=== PATIENT | male | born 1970 | race Caucasian/White ===

== ENCOUNTER 2016-11-15 11:17 | Inpatient (IN) | payer MEDICAID ==
[2016-11-15] MEDS ORDERED: MORPHINE IV ONE (12:44)
[2016-11-15] MEDS ORDERED: ZOFRAN IV ONE (12:44)
[2016-11-15] MEDS ORDERED: NITRO-BID 2% TP ONE (12:55)
[2016-11-15] MEDS ORDERED: LASIX IV ONE (12:55)
--- NOTE | 2016-11-15 12:58 | Emergency Department Report ---
HPI - General Chief Complaint: Dyspnea/Respdistress Time Seen by Provider: 11/15/16 12:35 - HPI HPI: Room 23 The patient is a 45-year-old male presenting with a chief complaint of chest pain and shortness of breath. The patient states yesterday he began or shortness of breath: CPAP. The patient states today when he awakened and felt as though "an elephant was sitting" on his chest. Patient describes pain as a tightness and pressure. Patient admitted to shortness of breath and some diaphoresis. Patient denies nausea or vomiting. Patient states she has had a cough as been productive of yellow sputum. Patient states he's been compliant with his torsemide. The patient states she had a cardiac catheterization approximately one year ago but did not reveal any blockages Location: Chest, lungs Duration: [see above] Quality: Tightness, pressure Severity: 04/30 Modifying factors: [see above] Context: [see above] Mode of transportation: [not driving] ED Past Medical Hx - Past Medical History Previous Medical History?: Yes Hx Hypertension: Yes Hx Congestive Heart Failure: Yes Hx Diabetes: Yes Hx Renal Disease: Yes (insufficiency) Hx Asthma: Yes Hx COPD: Yes Additional medical history: copd; sleep apnea - Surgical History Past Surgical History?: Yes Hx Pacemaker: Yes Hx Internal Defibrillator: Yes Hx Cholecystectomy: Yes Additional Surgical History: defibulator - Family History Family history: no significant - Social History Smoking Status: Former Smoker Substance Use Type: None - Medications Home Medications: Home Medications Medication Instructions Recorded Confirmed Last Taken Type Aspirin [Aspirin TAB] 325 mg PO QDAY 05/19/15 10/02/16 1 Day Ago History Ferrous Sulfate [Feosol 325 MG tab] 325 mg PO BID 05/19/15 10/02/16 1 Day Ago History Amiodarone 200 mg PO DAILY 06/23/16 10/02/16 1 Day Ago History Clindamycin [Clindamycin CAP] 300 mg PO BID #20 capsule 08/03/16 Unknown Rx Allopurinol [Zyloprim] 100 mg PO QDAY 08/31/16 10/02/16 1 Day Ago History Carvedilol [Coreg] 25 mg PO BID 08/31/16 10/02/16 1 Day Ago History ISOSORBIDE MONOnitrate [Imdur ER] 30 mg PO DAILY 08/31/16 10/02/16 1 Day Ago History Lisinopril [Zestril] 20 mg PO BID 08/31/16 10/02/16 1 Day Ago History Magnesium Oxide 400 mg PO DAILY 08/31/16 10/02/16 1 Day Ago History Potassium Chloride [Klor-Con] 20 meq PO DAILY 08/31/16 10/02/16 1 Day Ago History Spironolactone [Aldactone] 25 mg PO BID 08/31/16 10/02/16 1 Day Ago History Torsemide [Demadex] 100 mg PO QDAY 08/31/16 10/02/16 1 Day Ago History glipiZIDE [Glucotrol] 10 mg PO QDAY 08/31/16 10/02/16 1 Day Ago History Potassium Chloride [K-Dur] 20 meq PO BID #10 tab 10/03/16 Unknown Rx Albuterol Sulfate [Ventolin HFA] 2 puff IH Q4H PRN #1 hfa.aer.ad 10/21/16 Unknown Rx Benzonatate [Tessalon Perles] 100 mg PO Q8HR PRN #30 capsule 10/21/16 Unknown Rx HYDROcodone/APAP 5-325 [[place] 1 each PO Q6HR PRN #20 tablet 10/21/16 Unknown Rx 5-325 mg TAB] Levofloxacin [Levaquin] 750 mg PO QDAY #5 tablet 10/21/16 Unknown Rx Prednisone [predniSONE 10 mg 10 mg PO .TAPER #1 tab.ds.pk 10/21/16 Unknown Rx (6-Day Pack, 21 Tabs)] ED Review of Systems ROS: Stated complaint: RTI/CHEST TIGHTNESS Other details as noted in HPI Comment: All other systems reviewed and negative Constitutional: diaphoresis Eyes: denies: eye pain, eye discharge, vision change ENT: denies: ear pain, throat pain Respiratory: shortness of breath Cardiovascular: chest pain Endocrine: no symptoms reported Gastrointestinal: denies: abdominal pain, nausea, diarrhea Genitourinary: denies: urgency, dysuria Musculoskeletal: denies: back pain, joint swelling, arthralgia Skin: denies: rash, lesions Neurological: denies: headache, weakness, paresthesias Psychiatric: denies: anxiety, depression Hematological/Lymphatic: denies: easy bleeding, easy bruising Physical Exam - Physical Exam Vital Signs: Vital Signs 11/15/16 12:00 Temperature 98.5 F Pulse Rate 71 Blood Pressure 104/61 O2 Sat by Pulse 98 Oximetry Physical Exam: GENERAL: The patient is well-developed well-nourished male lying on stretcher not appearing to be in acute distress. [] HEENT: Normocephalic. Atraumatic. Extraocular motions are intact. Patient has moist mucous membranes. NECK: Supple. Trachea midline CHEST/LUNGS: Clear to auscultation. No wheezing auscultated. There is mild respiratory distress noted. HEART/CARDIOVASCULAR: Regular. There is no tachycardia. There is no gallop rub or murmur. ABDOMEN: Abdomen is soft, nontender. Patient has normal bowel sounds. There is no abdominal distention. SKIN: There is no rash. There is 1+ bilateral lower extremity pitting edema. There is no diaphoresis. NEURO: The patient is awake, alert, and oriented. The patient is cooperative. The patient has normal speech MUSCULOSKELETAL: There is no evidence of acute injury. ED Course Vital Signs 11/15/16 12:00 Temperature 98.5 F Pulse Rate 71 Blood Pressure 104/61 O2 Sat by Pulse 98 Oximetry - Consultations Consultation #1: 11/15/16 12:57 Case discussed with [facility] ([facility])- will call back ED Medical Decision Making - Lab Data Result diagrams: 11/15/16 13:03 11/15/16 13:03 Laboratory Tests 11/15/16 11/15/16 13:03 13:03 WBC 10.0 RBC 4.13 Hgb 12.5 Hct 37.8 MCV 91 MCH 30 MCHC 33 RDW 15.9 H Plt Count 208 Lymph % (Auto) 17.2 [place] % (Auto) 9.7 H Eos % (Auto) 1.2 Baso % (Auto) 0.7 Lymph # 1.7 [place] # 1.0 H Eos # 0.1 Baso # 0.1 Seg Neutrophils % 71.2 H Seg Neutrophils # 7.1 Sodium 138 Potassium 3.3 L Chloride 97.7 L Carbon Dioxide 26 Anion Gap 18 BUN 13 Creatinine 1.4 Estimated GFR 54 BUN/Creatinine Ratio 9.28 Glucose 109 H Calcium 9.0 Troponin T < 0.010 NT-Pro-B Natriuret Pep 2534 H - EKG Data -: EKG Interpreted by Me Rate: normal - EKG Data When compared to previous EKG there are: previous EKG unavailable Interpretation: other (paced rhythm) - Radiology Data Radiology results: image reviewed (chest x-ray) interpreted by me: Chest [id number]. No focal infiltrates, no pneumothorax - Medical Decision Making Review the patient's record reveals he had a cardiac catheterization performed by Dr. Cross 10/19/2015. EKG revealed focal stenosis of the right coronary artery that resolved with intracoronary nitroglycerin consistent with focal coronary spasm. Otherwise, angiographically normal coronary arteries. Moderate to severe elevation of the left heart filling pressures. - Differential Diagnosis CHF exacerbation, ACS, nonischemic cardiomyopathy Critical care attestation.: If time is entered above; I have spent that time in minutes in the direct care of this critically ill patient, excluding procedure time. ED Disposition Clinical Impression: Acute chest pain, CHF exacerbation, Shortness of breath Disposition: OP ADMITTED IP TO THIS HOSP Is pt being admited?: Yes Does the pt Need Aspirin: Yes Condition: Fair Instructions: Chest Pain (ED) Referrals: STONE MOSES MD [Primary Care Provider] - 3-5 Days Time of Disposition: 14:02 (hospitalist paged)
--- NOTE | 2016-11-15 13:12 | XRay Report ---
AP chest History: Difficulty in breathing Findings: Heart size and pulmonary vascularity are borderline. The lungs are clear. 3-lead pacemaker devices unchanged since 10/20/16. No acute process is noted. Impression: Borderline heart size and pulmonary vascularity.
[2016-11-15 13:22] LABS: Basophils % (Auto) 0.7 % (0.0-1.8); Eosinophils % (Auto) 1.2 % (0.0-4.3); Hematocrit 37.8 % (35.5-45.6); Hemoglobin 12.5 gm/dl (11.8-15.2); Mean Corpuscular HGB Conc 33 % (32-34); Mean Corpuscular Hemoglobin 30 pg (28-32); Mean Corpuscular Volume 91 fl (84-94); Platelet Count 208 K/mm3 (140-440); Red Blood Count 4.13 M/mm3 (3.65-5.03); Red Cell Distribution Width 15.9 % (13.2-15.2)
[2016-11-15 13:42] LABS: Anion Gap 18 mmol/L; BUN/Creatinine Ratio 9.28; Blood Urea Nitrogen 13 mg/dL (9-20); Carbon Dioxide 26 mmol/L (22-30); Chloride 97.7 mmol/L (98-107); Glucose 109 mg/dL (75-100); Potassium 3.3 mmol/L (3.6-5.0); Sodium 138 mmol/L (137-145)
[2016-11-15] MEDS ORDERED: K-DUR PO ONE (13:50)
[2016-11-15] MEDS ORDERED: ASPIRIN PO ONE (14:03)
--- NOTE | 2016-11-15 14:42 | Admit Criteria Form ---
Admission Criteria Documentation: HEART FAILURE Clinical Indications for Admission to Inpatient Care (Place 'X' for any and all applicable criteria): Admission is indicated by ANY ONE of the following(1)(2)(3)(4): [X]I. Severe electrolyte abnormalities requiring inpatient care(9) [ ]II. Hemodynamic instability [ ]III. Anasarca [X]IV. Acute cardiac ischemia causing or associated with failure (Also use Angina or Myocardial Infarction as appropriate) [ ]V. Cardiac arrhythmias of immediate concern [ ]. Precipitating cause for acute decompensation (eg, pneumonia, pulmonary embolism) requires inpatient care [ ]VII. Pulmonary edema that is very severe (eg, mechanical ventilation needed, imminent or likely, need for 100% oxygen to keep oxygen saturation above 90%) [X ]VIII. Inpatient admission required rather than observation care (Also use Heart Failure: Observation Care as appropriate) because of ANY ONE of the following: [ ]a) Pulmonary edema that is severe or worsening as indicated by ALL of the following: [ ]i) New need for oxygen therapy to keep oxygen saturation above 90% (or increased FiO2 need from baseline) [ ]ii) Has not improved sufficiently with emergency department or observation care IV diuretics or other heart failure treatments[C] [ ]b) Cognitive impairment that is severe or persistent [ ]c) Increased creatinine (new on laboratory test) with reduction of more than 50% in estimated glomerular filtration rate from baseline. [ ]d) Acute renal insufficiency (progressively (ongoing) rising creatinine (known from past laboratory test) with reduction of more than 25% in estimated glomerular filtration rate from baseline) [ ]e) Acute peripheral ischemia (eg, pulseless, cool, mottled, or cyanotic extremity) [ ]f) Acute renal failure [ ]g) Supplemental O2 or respiratory treatment for >24 hr that are performable only in acute inpatient setting [ ]h) Pulmonary artery catheter monitoring [X]i) Other condition, treatment or monitoring requiring inpatient admission [ ]IX. Contraindications and/or Inappropriate clinical situations for Observational Care in patients with Heart Failure, when ANY ONE of the following is required: [ ]a) Patient with High risk of cardiac embolism (e.g, patients with previous cardiac embolism, LVEF < 40%, age >75 and patients with prosthetic valve) 18 [ ]b) Patient with Moderate risk including DM patient, CAD and patient aged 65-75 [ ]c) Patient with any change in cardiac biomarker especially troponin should be managed as high risk in an inpatient setting 19 [ ]d) Physician judgement irrespective of ECG and other diagnostic findings 20 [ ]e) Patients with hyponatremia have high risk for mortality and require more extensive care and length of stay 21 [ ]f) Need for large volume diuresis 21 [ ]g) Presence of renal insufficiency or hypotension limiting speed of diuresis 21 [ ]h) Acute cardiac Ischemia in the elderly 21 [ ]i) Patients with a 30 day risk of mortality based on a multidimensional prognostic index (MPI) [J,]21 [ ]X. General contraindications and/or Inappropriate clinical situations for Observational Care in patients with Heart Failure, when ANY ONE of the following is required: [ ]a) Prediction of prolongation of LOS based on ANY ONE of the following may be considered as a contraindication for observational care 2, 3, 4, 5, 6, 7, 8 , 9, 10, 11 [ ]i) Age > 65 yrs. [ ]ii) Patient arriving by ambulance [ ]iii) Patient with high acuity [ ]iv) Patient requiring vital sign monitoring [ ]v) Patient on IV medication [ ]b) Systolic blood pressures 180mmHg 3,12 [ ]c) Patient with altered mental status including delirium and other alteration of consciousness, (3) [ ]d) Patient whose discharge disposition will be to a fdc home or rehabilitation home should not be managed in Emergency Department Observation Unit. CMS rule requires 3 days hospital stay before such placement.3,13 [ ]e) Patient with failure to thrive due to broad array of etiologies 3,16,17 [ ]f) Inability to ambulate 3,14 Extended stay beyond goal length of stay may be needed for(1)(3)(21)(25): [ ]a) Cardiac ischemia, confirmed or suspected as precipitant [ ]b) Cardiogenic shock or refractory pulmonary edema [ ]c) Acute kidney injury or renal failure [ ]d) Respiratory failure (eg, need for noninvasive or invasive mechanical ventilation) (23) [ ]e) Concomitant pneumonia or significant electrolyte abnormality (eg, severe hyponatremia) [ ]f) Newly diagnosed (new onset) atrial fibrillation [ ]g) Stage IV chronic kidney disease (estimated glomerular filtration rate of less than 30 mL/min/1.73m2 (0.50 mL/sec/1.73m2), and not previously on chronic dialysis The original [facility] content created by [facility] [facility] has been revised. The portions of the content which have been revised are identified through the use of italic text or in bold, and [facility] has neither reviewed nor approved the modified material. All other unmodified content is copyright [facility]. Please see references footnoted in the original [facility] edition 2016 Admission Criteria Met: Yes
[2016-11-15] MEDS ORDERED: SODIUM CHLORIDE FLUSH SYRINGE 10 ML IV PRN (17:23)
[2016-11-15] MEDS ORDERED: AMIODARONE 200 MG PO SCH (17:30)
[2016-11-15] MEDS: K-DUR PO SCH (20:40)
[2016-11-15] MEDS: CORDARONE PO SCH (20:40)
[2016-11-15 21:23] LABS: Creatine Kinase MB 2.1 ng/mL (0.0-4.0)
[2016-11-15 21:28] LABS: Creatine Kinase 187 units/L (55-170)
[2016-11-15] MEDS: ALDACTONE PO SCH (22:30)
[2016-11-15] MEDS: COREG PO SCH (22:30)
[2016-11-15] MEDS: ZYLOPRIM PO SCH (22:30)
[2016-11-15] MEDS: FEOSOL PO SCH (22:30)
[2016-11-15] MEDS: ZESTRIL PO SCH (22:31)
[2016-11-15 23:51] LABS: Creatine Kinase 180 units/L (55-170); Creatine Kinase MB 2.1 ng/mL (0.0-4.0)
[2016-11-16] MEDS ORDERED: GLUCOTROL PO SCH (08:00)
--- NOTE | 2016-11-16 08:42 | Event Note ---
Date: 11/15/16 See In reports
[2016-11-16] MEDS ORDERED: K-DUR PO ONE ×2 (09:00→09:30)
--- NOTE | 2016-11-16 09:44 | History and Physical Report ---
CHIEF COMPLAINT: Increasing shortness of breath of 2 days' duration. HISTORY OF PRESENT ILLNESS: A 45-year-old male comes in for increasing shortness of breath and chest tightness. The patient has been feeling that there is a heavy elephant sitting on his chest and also increasing shortness of breath for the last 2 days. Also, some diaphoresis. No nausea, no vomiting. Cough productive of yellow sputum. The patient has been compliant with his diuretics. Had cardiac cath 1 year ago which did not show any blockages. Pain is about 7 on a scale of 1-10. PAST MEDICAL HISTORY: Significant for hypertension, congestive heart failure, diabetes, renal insufficiency, COPD, asthma. PAST SURGICAL HISTORY: Pacemaker, internal defibrillator, and cholecystectomy. FAMILY HISTORY: Significant for hypertension. CURRENT SOCIAL HISTORY: Does not smoke, former smoker. CURRENT MEDICATIONS: Amiodarone 200 mg p.o. daily, allopurinol 100 mg p.o. daily, Coreg 25 mg twice a day, lisinopril 20 mg twice a day, torsemide 100 mg p.o. daily, glipizide 10 mg p.o. daily, and Levaquin 750 mg p.o. daily. REVIEW OF SYSTEMS: CONSTITUTIONAL: No weight loss, no weight gain. No fever, no chills. HEENT: No sore throat, no postnasal drip. NECK: No neck stiffness or neck pain. CVS: Chest tightness present. Diaphoresis present. No palpitations. RESPIRATORY SYSTEM: Increasing shortness of breath and wheezing and cough productive of yellow sputum. GASTROINTESTINAL: No nausea, no vomiting, no diarrhea. GENITOURINARY SYSTEM: No dysuria, no flank pain. MUSCULOSKELETAL SYSTEMS: No joint pains. CENTRAL NERVOUS SYSTEM: No syncope, no seizures. A 14-point review of systems done. Other systems are negative. PHYSICAL EXAMINATION: GENERAL: Middle-aged male, short of breath. VITAL SIGNS: Blood pressure is 104/61, temperature is 98.5, pulse is 71, and sats are 98%. HEENT: Unremarkable. NECK: Supple. No lymphadenopathy, no thyromegaly. LUNGS: Bilateral inspiratory and expiratory rhonchi present. CARDIOVASCULAR: S1, S2 heard. No gallop, no murmur, no rub. Apical impulse in left fifth intercostal space and midclavicular line. ABDOMEN: Soft and benign. No hepatosplenomegaly, no guarding, no rigidity. Hernial orifices are normal. EXTREMITIES: Good pedal pulses. No pedal edema. CENTRAL NERVOUS SYSTEM: Alert and oriented x 4, nonfocal exam. SKIN: Normal. LABORATORY DATA: Significant for BNP of 2534. White count is 10,000. Electrolytes: Sodium is low 3.3, BUN and creatinine are 13 and 1.4. EKG shows normal sinus rhythm, no ST-T wave changes. Chest x-ray shows cardiomegaly, no focal infiltrates, no pneumothorax. ASSESSMENT AND PLAN: 1. Congestive heart failure exacerbation. IV Lasix 40 mg q.12. Echocardiogram ordered. BNP is high at 2534. 2. Acute coronary syndrome. Workup for acute coronary syndrome. The cath was negative last year. Cardiology consulted. 3. Arrhythmias. Continue amiodarone 200 mg daily. 4. Gout. Continue allopurinol 100 mg p.o. daily. 5. Hypertension. Continue carvedilol 25 mg twice a day and lisinopril 20 mg twice a day. 6. Type 2 diabetes mellitus. Continue glipizide and coverage. 7. Acute bronchitis, p.o. antibiotic started. 8. Chronic obstructive pulmonary disease, DuoNeb. 9. Deep venous thrombosis prophylaxis, Lovenox 40 mg subcutaneous daily. JOB# [id number] AZIZA/BEATA CONKLIN
[2016-11-16] MEDS ORDERED: LASIX IV SCH (10:00)
[2016-11-16] MEDS ORDERED: LOVENOX SUB-Q SCH ×2 (10:00)
[2016-11-16] MEDS ORDERED: DEMADEX PO SCH (10:00)
[2016-11-16] MEDS ORDERED: IMDUR PO SCH (10:00)
[2016-11-16] MEDS ORDERED: MAG-OX PO SCH (10:00)
[2016-11-16] MEDS ORDERED: POTASSIUM CHLORIDE PO SCH (10:00)
[2016-11-16] MEDS ORDERED: ASPIRIN PO SCH (10:00)
--- NOTE | 2016-11-16 10:33 | Consultation ---
Addendum entered and electronically signed by SHO ORTEZ MD 11/16/16 11:52 : Medical therapy for nonischemic cardiomyopathy and chronic systolic heart failure. No further ischemic workup is indicated at this time. Original Note: History of Present Illness Consult date: 11/16/16 Consult reason: chest pain, congestive heart failure History of present illness: This is a 45yr old male that has a nonischemic cardiomyopathy with an indwelling cardiac defibrillator. Most recent cardiac catheterization in September 2015 reports the absence of coronary artery disease. Echocardiogram done June 2016 reports an ejection fraction 25-30%. He also has a history of VT/VF and is on amiodarone for suppression. Co-morbidities include COPD, BRITTON , HTN and obesity. He presented to this hospital with complaints of shortness of breath and chest pain. CXR reports no acute process. His ECG shows a AV paced rhythm. There was no AICD discharge. Cardiac consultation requested. Medications and Allergies Allergies Allergy/AdvReac Type Severity Reaction Status Date / Time cephalexin monohydrate Allergy Hives Verified 03/09/15 22:20 [From Keflex] lidocaine Allergy Hives Verified 03/09/15 22:20 mushrooms Allergy Swelling Uncoded 06/26/15 12:23 Home Medications Medication Instructions Recorded Confirmed Last Taken Type Aspirin [Aspirin TAB] 325 mg PO QDAY 05/19/15 11/15/16 1 Day Ago History Ferrous Sulfate [Feosol 325 MG tab] 325 mg PO BID 05/19/15 11/15/16 1 Day Ago History Amiodarone 200 mg PO DAILY 06/23/16 11/15/16 1 Day Ago History Allopurinol [Zyloprim] 100 mg PO BID 08/31/16 11/15/16 1 Day Ago History Carvedilol [Coreg] 25 mg PO BID 08/31/16 11/15/16 1 Day Ago History ISOSORBIDE MONOnitrate [Imdur ER] 30 mg PO DAILY 08/31/16 11/15/16 1 Day Ago History Lisinopril [Zestril] 20 mg PO BID 08/31/16 11/15/16 1 Day Ago History Magnesium Oxide 400 mg PO DAILY 08/31/16 11/15/16 1 Day Ago History Potassium Chloride [Klor-Con] 20 meq PO DAILY 08/31/16 11/15/16 1 Day Ago History Spironolactone [Aldactone] 25 mg PO BID 08/31/16 11/15/16 1 Day Ago History Torsemide [Demadex] 100 mg PO QDAY 08/31/16 11/15/16 1 Day Ago History glipiZIDE [Glucotrol] 10 mg PO QDAY 08/31/16 11/15/16 1 Day Ago History Active Meds: Active Medications Allopurinol (Zyloprim) 100 mg PO BID [facility] Last Admin: 11/15/16 22:30 Dose: 100 mg Amiodarone HCl (Cordarone) 200 mg PO QDAY [facility] Last Admin: 11/15/16 20:40 Dose: 200 mg Aspirin (Aspirin) 325 mg PO QDAY [facility] Carvedilol (Coreg) 25 mg PO BID [facility] Last Admin: 11/15/16 22:30 Dose: 25 mg Enoxaparin Sodium (Lovenox) 40 mg SUB-Q QDAY@1000 [facility] Ferrous Sulfate (Feosol) 325 mg PO BID [facility] Last Admin: 11/15/16 22:30 Dose: 325 mg Furosemide (Lasix) 40 mg IV QDAY [facility] Glipizide (Glucotrol) 10 mg PO QDDIAB [facility] Isosorbide Mononitrate (Imdur) 30 mg PO DAILY [facility] Lisinopril (Zestril) 20 mg PO BID [facility] Last Admin: 11/15/16 22:31 Dose: Not Given Magnesium Oxide (Mag-Ox) 400 mg PO DAILY [facility] Potassium Chloride (K-Dur) 20 meq PO QDAY [facility] Last Admin: 11/15/16 20:40 Dose: 20 meq Sodium Chloride (Sodium Chloride Flush Syringe 10 Ml) 10 ml IV PRN PRN PRN Reason: LINE FLUSH Spironolactone (Aldactone) 25 mg PO BID [facility] Last Admin: 11/15/16 22:30 Dose: 25 mg Torsemide (Demadex) 100 mg PO QDAY [facility] Physical Examination Vital Signs Pulse Ox 98 11/15/16 11:53 General appearance: no acute distress HEENT: Positive: PERRL Neck: Positive: trachea midline Cardiac: Positive: Other (AV paced) Neuro: Positive: Grossly Intact Results 11/15/16 13:03 11/15/16 13:03 Cardiac Enzymes 11/15/16 11/15/16 Range/Units 20:56 22:26 CK-MB (CK-2) 2.1 2.1 (0.0-4.0) ng/mL Assessment and Plan Chest pain, atypical Dilated non ischemic cardiomyopathy severe MR with an EF 25-30% on echo 06/2016 normal coronaries by [facility] 09/2015 s/p AICD ([employer]) COPD BRITTON Obese Hx of VT/VF on amiodarone Hypertension Continue medical management for his dilated non ischemic cardiomyopathy. No cardiac workup indicated. F/U with [facility] as scheduled 2016.
[2016-11-16 11:45] VITALS: BP 126/82
[2016-11-16] MEDS: ZYLOPRIM PO SCH (12:03)
[2016-11-16] MEDS: ALDACTONE PO SCH (12:03)
[2016-11-16] MEDS: ZESTRIL PO SCH (12:04)
[2016-11-16] MEDS: FEOSOL PO SCH (12:04)
[2016-11-16] MEDS: CORDARONE PO SCH (12:04)
[2016-11-16] MEDS: K-DUR PO SCH (12:05)
[2016-11-16] MEDS: COREG PO SCH (12:05)
--- NOTE | 2016-11-16 13:03 | Echocardiography Report ---
Transthoracic Echocardiogram Indication: CHF BP: 116/56 HR: 73 Conclusions *1. Dilated cardiomyopathy, LVEF 10-15%. *2. Severe LA dilatation. *3. Moderate-severe MR. Findings Procedure Info: The study quality is technically difficult. The study is technically limited due to poor acoustic windows. Left Ventricle: The left ventricular chamber size is severely dilated. Mild to moderate concentric left ventricular hypertrophy is observed. There is evidence of a dilated cardiomyopathy. Severe global hypokinesis of the left ventricle is observed. Global left ventricular systolic function is severely decreased. The estimated ejection fraction is 10-15%. Left Atrium: The left atrium is severely dilated. Right Ventricle: The right ventricle is not well visualized. The right ventricle is mildly dilated. The right ventricular global systolic function is mildly reduced. A pacemaker wire is visualized in the right ventricle. Right Atrium: The right atrium is not well visualized. The right atrium is mildly dilated. A pacemaker wire is visualized in the right atrium. Aortic Valve: The aortic valve is trileaflet. The aortic valve leaflets are mildly thickened. There is no evidence of aortic regurgitation. There is no evidence of aortic stenosis. Mitral Valve: The mitral valve is not well visualized. The mitral valve leaflets appear myxomatous. The mitral valve leaflets are moderately thickened. Moderate mitral leaflet calcification is visualized. There is moderate to severe mitral regurgitation. There is no evidence of mitral stenosis. Tricuspid Valve: The tricuspid valve is not well visualized. There is mild tricuspid regurgitation. The right ventricular systolic pressure is calculated at 40 mmHg. There is evidence of mild pulmonary hypertension. There is no tricuspid stenosis. Pulmonic Valve: The pulmonic valve is not well visualized. There is mild pulmonic regurgitation. There is no pulmonic stenosis. Pericardium: There is no pericardial effusion. No pleural effusion is present. Aorta: There is no dilatation of the ascending aorta. There is no dilatation of the aortic root. Venous: The inferior vena cava is dilated. There is less than 50% respiratory change in the inferior vena cava dimension. Measurements Chambers 2D Name Value Normal Range IVSd (2D) 1.47 cm (0.6 - 1.1) LVPWd 1.4 cm - LVPWd (2D) 1.64 cm (0.6 - 1.1) IVS:LVPW ratio (2D) 1.04 ratio - LVIDd 7.38 cm - LVIDs 5.97 cm - LVIDd (2D) 7.41 cm (3.7 - 5.6) LVIDs (2D) 6.51 cm (2 - 3.8) LV FS (Teichholz) (2D) 12.1 % - LV FS (cube) (2D) 12.1 % - LV EF (2D) 38 % - EF Teichholz (2D) 25.2 % - LA dimension 6.8 cm - Ao root diameter (2D) 3.1 cm (2 - 3.7) LA dimension (AP) 2D 6.8 cm (1.9 - 4) LA:Ao ratio (2D) 2.19 ratio - Volumes/Mass Name Value Normal Range LA ESV SP 4CH (MOD) 155 ml - LV EDV SP 4CH (MOD) 539 ml - LV ESV SP 4CH (MOD) 317 ml - EF SP 4CH (MOD) 41 % - Diastolic/Systolic Function Name Value Normal Range MV E-wave Vmax 1.24 m/sec - MV deceleration time 217 msec - MV A-wave Vmax 0.49 m/sec - MV E:A ratio 2.5 ratio - LV septal e' Vmax 0.07 m/sec - LV lateral e' Vmax 0.07 m/sec - LV E:e' septal ratio 17.9 ratio - LV E:e' lateral ratio 17.7 ratio - Aortic Valve Name Value Normal Range AV Vmax 1.17 m/sec - AV peak gradient 5 mmHg - LVOT diameter 2.4 cm - LVOT Vmax 0.72 m/sec - LVOT peak gradient 2 mmHg - NOEMÍ (continuity Vmax) 2.79 cm2 - Mitral Valve Name Value Normal Range MR Vmax 4.73 m/sec - MR VTI 143 cm - MR volume (PISA) 154 ml - MR flow (PISA) 509.2 ml/sec - MR ERO 1.08 cm2 - MR PISA radius 1.1 cm - MR alias Vmax 67 cm/sec - Tricuspid Valve Name Value Normal Range TR Vmax 3.16 m/sec - TR peak gradient 40 mmHg - RVSP 40 mmHg - Pulmonic Valve/Qp:Qs Name Value Normal Range PV Vmax 0.62 m/sec - PV peak gradient 2 mmHg - NM end-diastolic Vmax 1.42 m/sec - PV acceleration time 85 msec -
[2016-11-16] MEDS ORDERED: NACL ONE (13:38)
--- NOTE | 2016-11-16 16:09 | Progress Note ---
Hospitalist Physical - Constitutional Vitals: Temp Pulse Resp BP Pulse Ox 97.8 F 70 20 126/82 93 11/16/16 11:30 11/16/16 11:30 11/16/16 11:30 11/16/16 11:30 11/16/16 11:30 General appearance: Present: no acute distress Results - Labs CBC & Chem 7: 11/15/16 13:03 11/15/16 13:03 Labs: Laboratory Last Values WBC 10.0 K/mm3 (4.5-11.0) 11/15/16 13:03 RBC 4.13 M/mm3 (3.65-5.03) 11/15/16 13:03 Hgb 12.5 gm/dl (11.8-15.2) 11/15/16 13:03 Hct 37.8 % (35.5-45.6) 11/15/16 13:03 MCV 91 fl (84-94) 11/15/16 13:03 MCH 30 pg (28-32) 11/15/16 13:03 MCHC 33 % (32-34) 11/15/16 13:03 RDW 15.9 % (13.2-15.2) H 11/15/16 13:03 Plt Count 208 K/mm3 (140-440) 11/15/16 13:03 Lymph % (Auto) 17.2 % (13.4-35.0) 11/15/16 13:03 Tripp % (Auto) 9.7 % (0.0-7.3) H 11/15/16 13:03 Eos % (Auto) 1.2 % (0.0-4.3) 11/15/16 13:03 Baso % (Auto) 0.7 % (0.0-1.8) 11/15/16 13:03 Lymph # 1.7 K/mm3 (1.2-5.4) 11/15/16 13:03 Tripp # 1.0 K/mm3 (0.0-0.8) H 11/15/16 13:03 Eos # 0.1 K/mm3 (0.0-0.4) 11/15/16 13:03 Baso # 0.1 K/mm3 (0.0-0.1) 11/15/16 13:03 Seg Neutrophils % 71.2 % (40.0-70.0) H 11/15/16 13:03 Seg Neutrophils # 7.1 K/mm3 (1.8-7.7) 11/15/16 13:03 Sodium 138 mmol/L (137-145) 11/15/16 13:03 Potassium 3.3 mmol/L (3.6-5.0) L 11/15/16 13:03 Chloride 97.7 mmol/L (98-107) L 11/15/16 13:03 Carbon Dioxide 26 mmol/L (22-30) 11/15/16 13:03 Anion Gap 18 mmol/L 11/15/16 13:03 BUN 13 mg/dL (9-20) 11/15/16 13:03 Creatinine 1.4 mg/dL (0.8-1.5) 11/15/16 13:03 Estimated GFR 54 ml/min 11/15/16 13:03 BUN/Creatinine Ratio 9.28 % 11/15/16 13:03 Glucose 109 mg/dL (75-100) H 11/15/16 13:03 POC Glucose 179 (70-105) H 11/16/16 12:33 Hemoglobin A1c 6.8 % (4-6) H 11/16/16 07:33 Calcium 9.0 mg/dL (8.4-10.2) 11/15/16 13:03 Total Creatine Kinase 180 units/L (55-170) H 11/15/16 22:26 CK-MB (CK-2) 2.1 ng/mL (0.0-4.0) 11/15/16 22:26 CK-MB (CK-2) Rel Index 1.1 (0-4) 11/15/16 22:26 Troponin T < 0.010 ng/mL (0.00-0.029) 11/15/16 22:26 NT-Pro-B Natriuret Pep 2534 pg/mL (0-450) H 11/15/16 13:03
--- NOTE | 2016-11-16 16:14 | Discharge Summary ---
Providers - Providers Date of Admission: 11/15/16 17:07 Date of discharge: 11/16/16 Attending physician: THOMAS HENDRIX 11/15/16 Consult to Cardiac Rehabilitation [CONS] Routine Reason For Exam: Phase I 11/16/16 08:47 Consult to Physician [CONS] Routine Consulting Provider: SHO ORTEZ Reason For Exam: chf Place consult to:: [facility] Notified:: pakeitha Was contact made?: Yes Time called:: 09:41 Primary care physician: STONE MOSES Hospitalization Reason for admission: worsening shortness of breath Condition: Fair Pertinent studies: Echocardiogram; dilated cardiomyopathy, left ventricular ejection fraction 10-15 % Severe left atrial dilation Moderate to severe MR Chest x-ray; borderline heart size and pulmonary vascularity Hospital course: Final Diagnosis; Atypical chest pain; resolved Gastroesophageal reflux disease Dilated nonischemic cardiomyopathy ejection fraction 25-30% Status post AICD Hypertension Morbid obesity History of VT VF on amiodarone History of COPD Morbid obesity 35-year-old male patient was admitted through emergency room with worsening shortness of breath of 2 days' duration patient was admitted as acute exacerbation of chronic systolic congestive heart failure symptomatically managed with anti-failure medications patient also has history of hypertension COPD acute renal failure and diabetes mellitus as well as AICD Patient was evaluated by cardiology who recommended medical management And no aggressive workup during this admission Patient was counseled that he modification and exercise as tolerated and weight reduction when medically stable Strongly advised to adhere to the treatment plan, follow with cardiology and primary care physician per scheduled Patient also advised outpatient bariatric surgical evaluation for weight reduction program when medically stable Patient verbalized understanding Disposition: DISCHARGED TO HOME OR SELFCARE Time spent for discharge: 33 min Core Measure Documentation - Palliative Care Palliative Care/ Comfort Measures: Not Applicable - Core Measures Any of the following diagnoses?: heart failure - Heart Failure Discharge Requirements BRITTA/ARB for LVSD if EF <40%: Yes Beta brandon at discharge: Yes Exam - Constitutional Vitals: Temp Pulse Resp BP Pulse Ox 97.8 F 70 20 126/82 93 11/16/16 11:30 11/16/16 11:30 11/16/16 11:30 11/16/16 11:30 11/16/16 11:30 General appearance: Present: no acute distress, well-nourished, obese (morbidly obese) - EENT Eyes: Present: PERRL, EOM intact - Neck Neck: Present: supple, normal ROM - Respiratory Respiratory effort: normal Respiratory: bilateral: diminished, rales, negative: rhonchi, wheezing - Cardiovascular Rhythm: regular Heart Sounds: Present: S1 & S2 - Extremities Extremities: no ischemia, pulses intact, pulses symmetrical Extremity abnormal: edema Peripheral Pulses: within normal limits - Abdominal General gastrointestinal: Present: soft, non-tender, non-distended, normal bowel sounds - Integumentary Integumentary: Present: clear, warm - Musculoskeletal Musculoskeletal: strength equal bilaterally - Psychiatric Psychiatric: appropriate mood/affect, cooperative - Neurologic Neurologic: CNII-XII intact, moves all extremities Plan Activity: no restrictions Diet: low salt, other (cardiac diet) Additional Instructions: If you have chest pain or shortness of breath contact M.D. or go to emergency room Follow up with: STONE MOSES MD [Primary Care Provider] - 3-5 Days SHO ORTEZ MD [Staff Physician] - 7 Days
== END 2016-11-16 16:56 | disposition home or self-care (01) | DRG 292 ==
LOC: ED 11:17 → 4A 17:07
PROVIDERS: ADMIT Internal Medicine; ATTEND Internal Medicine
DX: I11.0 Hypertensive heart disease with heart failure (principal); I24.9 Acute ischemic heart disease, unspecified; J44.0 Chronic obstructive pulmonary disease with (acute) lower respiratory infection; Z68.43 Body mass index [BMI] 50.0-59.9, adult; I42.0 Dilated cardiomyopathy; E11.9 Type 2 diabetes mellitus without complications; J45.909 Unspecified asthma, uncomplicated; I25.10 Atherosclerotic heart disease of native coronary artery without angina pectoris; G47.33 Obstructive sleep apnea (adult) (pediatric); E66.9 Obesity, unspecified; M10.9 Gout, unspecified; J20.9 Acute bronchitis, unspecified; I49.9 Cardiac arrhythmia, unspecified; I50.9 Heart failure, unspecified; Z95.0 Presence of cardiac pacemaker; Z90.49 Acquired absence of other specified parts of digestive tract; Z79.899 Other long term (current) drug therapy; Z79.82 Long term (current) use of aspirin; Z88.8 Allergy status to other drugs, medicaments and biological substances; Z82.49 Family history of ischemic heart disease and other diseases of the circulatory system
CPT/HCPCS: 36415; 71010; 80048; 82550; 82553; 82962; 83036; 83880; 84484; 85025; 93005; 93010; 93306; 96374; 96375; 99406; J1650; J1940; J2270; J2405

== ENCOUNTER 2016-12-10 13:54 | Inpatient (IN) | payer MEDICAID ==
[2016-12-10 16:22] LABS: Basophils % (Auto) 1.2 % (0.0-1.8); Eosinophils % (Auto) 1.7 % (0.0-4.3); Hematocrit 38.3 % (35.5-45.6); Hemoglobin 12.5 gm/dl (11.8-15.2); Mean Corpuscular HGB Conc 33 % (32-34); Mean Corpuscular Hemoglobin 30 pg (28-32); Mean Corpuscular Volume 91 fl (84-94); Platelet Count 204 K/mm3 (140-440); Red Blood Count 4.19 M/mm3 (3.65-5.03); Red Cell Distribution Width 16.5 % (13.2-15.2); White Blood Count 9.3 K/mm3 (4.5-11.0)
[2016-12-10 16:50] LABS: Anion Gap 21 mmol/L; BUN/Creatinine Ratio 8.33; Blood Urea Nitrogen 10 mg/dL (9-20); Calcium 8.7 mg/dL (8.4-10.2); Carbon Dioxide 22 mmol/L (22-30); Glucose 93 mg/dL (75-100); Potassium 3.3 mmol/L (3.6-5.0); Sodium 140 mmol/L (137-145)
[2016-12-10] MEDS ORDERED: K-DUR PO ONE (21:40)
[2016-12-10] MEDS ORDERED: PROVENTIL IH ONE (21:47)
[2016-12-10] MEDS ORDERED: ZITHROMAX PO ONE (21:47)
[2016-12-10] MEDS ORDERED: ATROVENT IH ONE (21:47)
[2016-12-10] MEDS ORDERED: MAGNESIUM SULFATE 2GM/50ML 2 GM/50 ML BAG IV ONE (21:47)
--- NOTE | 2016-12-10 22:58 | Emergency Department Report ---
ED Shortness of Breath HPI - General Chief Complaint: Dyspnea/Respdistress Stated Complaint: TRI Time Seen by Provider: 12/10/16 21:39 Source: EMS Mode of arrival: Wheelchair Limitations: No Limitations - History of Present Illness Initial Comments: 45-year-old male with a past medical history asthma, CHF, COPD, diabetes, hypertension, chronic renal insufficiency, deep apnea, and AICD presents to the hospital complains of cough, sugars breath, and chest tightness. Symptoms started last night. Patient does not use home oxygen and he takes albuterol inhalers. He does not have a nebulized treatment. He complains of wheezing. No reports of fever. Chest tightness is intermittent. Patient complains of upper abdominal discomfort and reflux symptoms. - Related Data Home Medications Medication Instructions Recorded Confirmed Last Taken Aspirin [Aspirin TAB] 325 mg PO QDAY 05/19/15 11/15/16 1 Day Ago Ferrous Sulfate [Feosol 325 MG tab] 325 mg PO BID 05/19/15 11/15/16 1 Day Ago Amiodarone 200 mg PO DAILY 06/23/16 11/15/16 1 Day Ago Allopurinol [Zyloprim] 100 mg PO BID 08/31/16 11/15/16 1 Day Ago Carvedilol [Coreg] 25 mg PO BID 08/31/16 11/15/16 1 Day Ago ISOSORBIDE MONOnitrate [Imdur ER] 30 mg PO DAILY 08/31/16 11/15/16 1 Day Ago Lisinopril [Zestril TAB] 20 mg PO BID 08/31/16 11/15/16 1 Day Ago Magnesium Oxide 400 mg PO DAILY 08/31/16 11/15/16 1 Day Ago Potassium Chloride [Klor-Con] 20 meq PO DAILY 08/31/16 11/15/16 1 Day Ago Spironolactone [Aldactone] 25 mg PO BID 08/31/16 11/15/16 1 Day Ago Torsemide [Demadex] 100 mg PO QDAY 08/31/16 11/15/16 1 Day Ago glipiZIDE [Glucotrol] 10 mg PO QDAY 08/31/16 11/15/16 1 Day Ago Allergies Allergy/AdvReac Type Severity Reaction Status Date / Time cephalexin monohydrate Allergy Hives Verified 03/09/15 22:20 [From Keflex] lidocaine Allergy Hives Verified 03/09/15 22:20 mushrooms Allergy Swelling Uncoded 06/26/15 12:23 ED Review of Systems ROS: Stated complaint: TRI Other details as noted in HPI Comment: All other systems reviewed and negative Other: Constitutional: No fevers chills Eyes: No eye pain visual changes ENT: No ear pain or throat pain Neck: Denies pain Respiratory:as per hpi Cardiovascular: Denies, palpitations, syncope GI: Denies abdominal pain, nausea, vomiting, diarrhea : Denies dysuria Musculoskeletal: Denies back pain Skin: Denies rash, lesions, erythema Neurologic: Denies headache, numbness, weakness Psychiatric: Denies suicidal ideation, hallucinations ED Past Medical Hx - Past Medical History Hx Hypertension: Yes Hx Heart Attack/AMI: No Hx Congestive Heart Failure: Yes (dilated cardiomyopathy EF 10-15% severe LA dilatation) Hx Diabetes: Yes Hx Renal Disease: Yes (insufficiency) Hx Asthma: Yes Hx COPD: Yes Additional medical history: copd; sleep apnea - Surgical History Hx Pacemaker: Yes Hx Internal Defibrillator: Yes Hx Cholecystectomy: Yes Additional Surgical History: defibulator - Social History Smoking Status: Never Smoker Substance Use Type: None - Medications Home Medications: Home Medications Medication Instructions Recorded Confirmed Last Taken Type Aspirin [Aspirin TAB] 325 mg PO QDAY 05/19/15 11/15/16 1 Day Ago History Ferrous Sulfate [Feosol 325 MG tab] 325 mg PO BID 05/19/15 11/15/16 1 Day Ago History Amiodarone 200 mg PO DAILY 06/23/16 11/15/16 1 Day Ago History Allopurinol [Zyloprim] 100 mg PO BID 08/31/16 11/15/16 1 Day Ago History Carvedilol [Coreg] 25 mg PO BID 08/31/16 11/15/16 1 Day Ago History ISOSORBIDE MONOnitrate [Imdur ER] 30 mg PO DAILY 08/31/16 11/15/16 1 Day Ago History Lisinopril [Zestril TAB] 20 mg PO BID 08/31/16 11/15/16 1 Day Ago History Magnesium Oxide 400 mg PO DAILY 08/31/16 11/15/16 1 Day Ago History Potassium Chloride [Klor-Con] 20 meq PO DAILY 08/31/16 11/15/16 1 Day Ago History Spironolactone [Aldactone] 25 mg PO BID 08/31/16 11/15/16 1 Day Ago History Torsemide [Demadex] 100 mg PO QDAY 08/31/16 11/15/16 1 Day Ago History glipiZIDE [Glucotrol] 10 mg PO QDAY 08/31/16 11/15/16 1 Day Ago History ED Physical Exam - General Limitations: No Limitations - Other Other exam information: General: No limitations, patient is alert in no acute distress, obese Head exam: Atraumatic, normocephalic Eyes exam: Normal appearance ENT: Moist mucous membrane, normal oropharynx Neck exam: Normal inspection, full range of motion Respiratory exam: Expiratory wheezing Cardiovascular: Normal rate and rhythm Abdomen: Soft, nondistended, and nontender, with normal bowel sounds, no rebound, or guarding Extremity: Full range of motion normal inspection no deformity, no pitting edema Back: Normal Inspection, full range of motion, no tenderness Neurologic: Alert, oriented x3, cranial nerves intact, no motor or sensory deficit Psychiatric: normal affect, normal mood Skin: Warm, dry, intact ED Course Vital Signs 12/10/16 12/10/16 15:42 22:04 Temperature 98.6 F Pulse Rate 75 68 Pulse Rate [ 69 Throughout] Respiratory 26 H 22 Rate Respiratory 20 Rate [ Throughout] Blood Pressure 133/76 Blood Pressure 127/75 [Left] O2 Sat by Pulse 100 98 Oximetry - Reevaluation(s) Reevaluation #1: 12/11/16 00:03 After albuterol, Atrovent, Solu-Medrol, and Scott patient reports that he feels a little better. I don't hear any wheezing at this time. Patient complains of abdominal discomfort and reflux ED Medical Decision Making - Lab Data Result diagrams: 12/10/16 16:12 12/10/16 16:12 Lab Results 12/10/16 12/10/16 Range/Units 16:12 16:12 WBC 9.3 (4.5-11.0) K/mm3 RBC 4.19 (3.65-5.03) M/mm3 Hgb 12.5 (11.8-15.2) gm/dl Hct 38.3 (35.5-45.6) % MCV 91 (84-94) fl MCH 30 (28-32) pg MCHC 33 (32-34) % RDW 16.5 H (13.2-15.2) % Plt Count 204 (140-440) K/mm3 Lymph % (Auto) 20.2 (13.4-35.0) % Davidson % (Auto) 9.4 H (0.0-7.3) % Eos % (Auto) 1.7 (0.0-4.3) % Baso % (Auto) 1.2 (0.0-1.8) % Lymph # 1.9 (1.2-5.4) K/mm3 Davidson # 0.9 H (0.0-0.8) K/mm3 Eos # 0.2 (0.0-0.4) K/mm3 Baso # 0.1 (0.0-0.1) K/mm3 Seg Neutrophils % 67.5 (40.0-70.0) % Seg Neutrophils # 6.3 (1.8-7.7) K/mm3 Sodium 140 (137-145) mmol/L Potassium 3.3 L (3.6-5.0) mmol/L Chloride 100.0 (98-107) mmol/L Carbon Dioxide 22 (22-30) mmol/L Anion Gap 21 mmol/L BUN 10 (9-20) mg/dL Creatinine 1.2 (0.8-1.5) mg/dL Estimated GFR > 60 ml/min BUN/Creatinine Ratio 8.33 % Glucose 93 (75-100) mg/dL Calcium 8.7 (8.4-10.2) mg/dL Troponin T < 0.010 (0.00-0.029) ng/mL - EKG Data -: EKG Interpreted by Me (av dual chamber pacemaker rate 73) - Radiology Data Radiology results: image reviewed (cxr: naf) - Medical Decision Making Plan to admit patient to the hospital since he continues to complain of shortness of breath symptoms despite eating treatment. Given azithromycin by mouth - Differential Diagnosis CHF, COPD, bronchitis, pneumonia, CA, unstable angina Critical Care Time: No Critical care attestation.: If time is entered above; I have spent that time in minutes in the direct care of this critically ill patient, excluding procedure time. ED Disposition Clinical Impression: Cardiac defibrillator in place, Acute exacerbation of chronic obstructive pulmonary disease (COPD), Chest tightness, Shortness of breath, Morbid obesity due to excess calories, Dilated cardiomyopathy, Hypokalemia Disposition: OP ADMITTED IP TO THIS HOSP Is pt being admited?: Yes Condition: Stable Time of Disposition: 00:05 (Dr Garcia/hosp)
--- NOTE | 2016-12-11 04:10 | Event Note ---
Date: 12/11/16 See H/p in reports COPD exacerbation Chf exacerbation T2DM HTN Morbid obesity ECHO CTA done in past 2 admissions=EF 10 to 15 percent
[2016-12-11] MEDS ORDERED: FLUARIX QUAD 2016-2017(36 MOS+) IM ONE (04:11)
[2016-12-11] MEDS ORDERED: DUONEB 0.5 MG-3 MG/3 ML SOLN IH PRN (04:14)
[2016-12-11] MEDS ORDERED: PROVENTIL IH PRN (04:23)
[2016-12-11] MEDS: ZESTRIL PO SCH ×2 (04:55→22:39)
[2016-12-11] MEDS: FEOSOL PO SCH ×2 (04:55→22:49)
[2016-12-11] MEDS: ALDACTONE PO SCH ×2 (04:56→22:40)
[2016-12-11] MEDS: ZYLOPRIM PO SCH ×2 (04:56→22:40)
[2016-12-11] MEDS: COREG PO SCH ×2 (04:56→22:40)
[2016-12-11] MEDS ORDERED: K-DUR PO ONE ×2 (05:09→19:18)
[2016-12-11] MEDS ORDERED: SODIUM CHLORIDE FLUSH SYRINGE 10 ML IV PRN (05:12)
[2016-12-11 06:24] LABS: Creatine Kinase MB 1.9 ng/mL (0.0-4.0)
[2016-12-11 06:25] LABS: Creatine Kinase 123 units/L (55-170)
--- NOTE | 2016-12-11 06:30 | History and Physical Report ---
CHIEF COMPLAINT: Increasing shortness of breath and cough for the last one day. HISTORY OF PRESENT ILLNESS: A 45-year-old male with multiple medical problems including severe COPD, obstructive sleep apnea on CPAP, CHF, hypertension, chronic renal insufficiency, and , comes in for chest tightness and cough productive of mucoid to yellow sputum. No fever, no chills. The patient does not use home oxygen, but takes albuterol inhalers. He does not have nebulizer treatments at home. Complains of wheezing, no fever. Chest tightness is intermittent. Also upper abdominal discomfort present. He has moderate respiratory distress at rest. Morbidly obese. Shortness of breath on minimal exertion also present. PAST MEDICAL HISTORY: As mentioned, hypertension, dilated cardiomyopathy with EF of 10-15%, type 2 diabetes mellitus, renal insufficiency, asthma, COPD, and sleep apnea. PAST SURGICAL HISTORY: Pacemaker and internal defibrillator insertion, cholecystectomy. SOCIAL HISTORY: Does not smoke. No alcohol, no recreational drugs. CURRENT MEDICATIONS: Aspirin 325 p.o. daily, ferrous sulfate 325 p.o. b.i.d., amiodarone 200 mg p.o. daily, allopurinol 100 mg p.o. b.i.d., Coreg 25 mg twice a day, isosorbide mononitrate 30 mg p.o. daily, lisinopril 20 mg p.o. b.i.d., magnesium oxide 400 mg p.o. daily, potassium chloride 20 mEq p.o. daily, Aldactone 25 mg twice a day, Demadex 100 mg p.o. daily, and glipizide 10 mg p.o. daily. ALLERGIES: CEPHALEXIN, LIDOCAINE and MUSHROOMS. SOCIAL HISTORY: Does not smoke. FAMILY HISTORY: Significant for hypertension. REVIEW OF SYSTEMS: CONSTITUTIONAL: No fever, no chills, shortness of breath present. No weight loss. No weight gain. HEENT: No sore throat, no postnasal drip. CARDIOVASCULAR: Shortness of breath, minimal exertion present. CHEST: Intermittent chest tightness present. RESPIRATORY: Wheezing present. Cough productive of mucoid sputum present. ABDOMEN: Soft. Some epigastric pain present. EXTREMITIES: Full range of motion, some swelling present. MUSCULOSKELETAL SYSTEM: No joint pains, no muscle pains. CENTRAL NERVOUS SYSTEM: No syncope, no seizures. PSYCHIATRIC: No depression. SKIN: No rashes. A 14-point review of systems done, essentially negative. PHYSICAL EXAMINATION: GENERAL: Middle-aged male with morbidly obese. VITAL SIGNS: Blood pressure is 133/76, temperature is 98.6, pulse is 75, respiratory rate is 26, and sats are 100%. HEENT: Unremarkable. Pupils equal and reactive. NECK: Supple, no lymphadenopathy, no thyromegaly. LUNGS: Bilateral inspiratory and expiratory rhonchi. CARDIOVASCULAR: S1, S2 heard. No gallop, no murmur, no rub. Apical impulse in left fifth intercostal space and midclavicular line. ABDOMEN: Soft and benign. No hepatosplenomegaly. No guarding, no rigidity. Hernial orifices are normal. EXTREMITIES: A 2+ pedal edema present. CENTRAL NERVOUS SYSTEM: Alert and oriented x 4, nonfocal exam. SKIN: Normal. LABORATORY DATA: Significant for white count of 9300, H and H is 12.5 and 38.3, and platelet count is 204,000. Sodium is 140, potassium is 3.3, chloride is 100, bicarbonate is 22, BUN and creatinine is 10 and 1.2, glucose is 93. EKG, AV dual chamber pacemaker rate 73. Chest x-ray, no acute findings. Blood gases not available. ASSESSMENT AND PLAN: 1. Acute chronic obstructive pulmonary disease exacerbation. The patient was started on DuoNebs q.6 hours round the clock and q.3 p.r.n., IV Levaquin 750 q. 24 hours, and Solu-Medrol 80 mg q.8 hours. 2. Acute congestive heart failure exacerbation. The patient on Lasix 40 mg q.12 hours. Pulmonary and Cardiology consult was requested. 3. Obstructive sleep apnea. The patient to be continued on CPAP machine. 4. Arrhythmias, the patient to be continued on amiodarone 200 mg p.o. daily. 5. Type 2 diabetes, insulin coverage and continue Glipizide 10 mg daily. 6. Hypokalemia, supplemented. 7. Gout, continue allopurinol 100 mg twice a day. 8. Hypertension. Continue Coreg 25 mg twice a day and lisinopril 20 mg twice a day. 9. Deep venous thrombosis prophylaxis, Lovenox 40 mg subcutaneous daily. DISCHARGE PLANNING ISSUES: The patient to be discharged on nebulizer machine and nebulizer DuoNebs 4 times a day p.r.n. PROGNOSIS: Fair. JOB# [id number] AZIZA/BEATA
[2016-12-11] MEDS: DUONEB 0.5 MG-3 MG/3 ML SOLN IH SCH ×4 (09:24→21:12)
[2016-12-11] MEDS: NOVOLOG SUB-Q SCH ×4 (09:39→22:52)
[2016-12-11] MEDS: GLUCOTROL PO SCH (09:40)
[2016-12-11] MEDS: CORDARONE PO SCH (09:40)
[2016-12-11] MEDS: ASPIRIN PO SCH (09:40)
[2016-12-11] MEDS: LEVAQUIN 750MG/150ML 750 MG/150 ML BAG IV SCH (09:41)
[2016-12-11] MEDS: DEMADEX PO SCH (09:41)
[2016-12-11] MEDS: IMDUR PO SCH (09:41)
[2016-12-11] MEDS: POTASSIUM CHLORIDE PO SCH (09:43)
[2016-12-11] MEDS: LOVENOX SUB-Q SCH (09:43)
[2016-12-11] MEDS: MAG-OX PO SCH (09:43)
--- NOTE | 2016-12-11 09:58 | XRay Report ---
CHEST 2 VIEWS INDICATION: Shortness of breath. COMPARISON: 11/15/2016 FINDINGS: Frontal and lateral chest radiographs again demonstrate mild cardiomegaly, left AICD with tripolar dual chamber leads and clear lungs without pleural effusions or CHF. Stable hilar prominence, more so on the right. Stable bones. CONCLUSION: No acute disease in the chest or significant interval change, as described. Thank you for the opportunity to participate in this patient's care.
[2016-12-11] MEDS ORDERED: LOVENOX SUB-Q SCH (10:00)
[2016-12-11] MEDS ORDERED: AMIODARONE 200 MG PO SCH (10:00)
--- NOTE | 2016-12-11 13:15 | Admit Criteria Form ---
Admission Criteria Documentation: COPD Clinical Indications for Admission to Inpatient Care (Place 'X' for any and all applicable criteria): Admission is indicated for ANY ONE of the following (1)(2)(3): [ ]I. Acute exacerbation by high-risk comorbidity (e.g., pneumonia, dysrhythmia, heart failure, pleural effusion, pneumothorax) or severe underlying COPD (e.g., steroid dependent) [X]II. Inpatient admission required rather than observation care (see Chronic Obstructive Pulmonary Disease: Observation Care) because of ANY ONE of the following: [X]a) New or pre-existing signs or symptoms of COPD (eg, dyspnea or Tachypnea at rest or with minimal activity) that persist despite outpatient and observation care treatment [ ]b) New-onset hypoxemia (room air SaO2 less than 90%, PO2 less than 60 mm Hg (8.0 kPa)) that persists despite outpatient and observation care treatment [ ]c) Worsening of pre-existing hypoxemia (eg, new or increased requirement for supplemental oxygen to maintain oxygenation at baseline level) that persists despite outpatient and observation care treatment, with oxygen treatment needs performable only in acute inpatient setting [ ]d) Hypercarbia (PCO2 greater than 40 mm Hg (5.3 kPa))-induced respiratory acidosis (pH less than 7.35) that persists despite outpatient and observation care treatment [ ]e) Supplemental oxygen or respiratory treatments for over 24 hours that are performable only in acute inpatient setting [ ]f) Chest tube placement with active evacuation (e.g., suction, drainage) (5) [ ]g) Other condition, treatment or monitoring requiring inpatient admission [ ]III. Planned invasive surgical or diagnostic procedures requiring acute- care hospitalization [ ]IV. Acute respiratory failure (e.g., uncompensated hypercarbia, severe hypoxemia) [X]V. Severe comorbid condition (e.g., severe steroid myopathy, acute vertebral fracture) that has acutely worsened pulmonary function [ ]. Confusion state, lethargy, obtundation, stupor or coma Extended stay beyond goal length of stay may be needed for (31)(32): [ ]a ) Respiratory Failure. [ ]b) Severe or persisting hypoxemia or hypercarbia [ ]c) Severe or persistent dyspnea [ ]d) Comorbidities (e.g. chronic heart failure, atrial fibrillation with rapid response, pneumonia) [ ]e) Malnutrition The original [facility] content created by [facility] has been revised. The portions of the content which have been revised are identified through the use of italic text or in bold, and [facility] has neither reviewed nor approved the modified material. All other unmodified content is copyright [facility]. Please see references footnoted in the original [facility] edition 2016 Admission Criteria Met: Yes
[2016-12-11 14:47] LABS: ISTAT Base Excess -4; ISTAT DEVICE 0; ISTAT HCO3 20.7; ISTAT PCO2 32.2 (35-45); ISTAT PH 7.415 (7.35-7.45); ISTAT PO2 79 (80-105); ISTAT SO2 96; ISTAT TCO2 22
--- NOTE | 2016-12-11 17:24 | Consultation ---
History of Present Illness Consult date: 12/11/16 Reason for consult: dyspnea, cough, chest pain, obstructive sleep apnea History of present illness: This is 45 year old white male Morbidly Obese with history of COPD,Sleep apnea, CHF,AICD implantation,Hypertension, diabetes,CKD presented to the emergency room at [facility] with shortness of breath, chest tightness, Cough with productive yellow sputum. Denies fever,chills or hemoptysis.Patient complaining nasal congestion.Patient has heavy history of smoking. ! pack for 30 years. Stopped smoking one year ago. Never worked. Most of the time he is grown up in [place].Patient says he never worked. , children one.Patient denies alcohol or drug abuse. Patient allergic to Keflex and Lidocaine.Patient uses CPAP at home at 20cm H2O pressure. Past History Past Medical History: CAD, COPD, diabetes, heart failure, hypertension Medications and Allergies Allergies Allergy/AdvReac Type Severity Reaction Status Date / Time cephalexin monohydrate Allergy Hives Verified 03/09/15 22:20 [From Keflex] lidocaine Allergy Hives Verified 03/09/15 22:20 mushrooms Allergy Swelling Uncoded 06/26/15 12:23 Home Medications Medication Instructions Recorded Confirmed Last Taken Type Aspirin [Aspirin TAB] 325 mg PO QDAY 05/19/15 12/10/16 1 Day Ago History Ferrous Sulfate [Feosol 325 MG tab] 325 mg PO BID 05/19/15 12/10/16 1 Day Ago History Amiodarone 200 mg PO DAILY 06/23/16 12/10/16 1 Day Ago History Allopurinol [Zyloprim] 100 mg PO BID 08/31/16 12/10/16 1 Day Ago History Carvedilol [Coreg] 25 mg PO BID 08/31/16 12/10/16 1 Day Ago History ISOSORBIDE MONOnitrate [Imdur ER] 30 mg PO DAILY 08/31/16 12/10/16 1 Day Ago History Lisinopril [Zestril TAB] 20 mg PO BID 08/31/16 12/10/16 1 Day Ago History Magnesium Oxide 400 mg PO DAILY 08/31/16 12/10/16 1 Day Ago History Potassium Chloride [Klor-Con] 20 meq PO DAILY 08/31/16 12/10/16 1 Day Ago History Spironolactone [Aldactone] 25 mg PO BID 08/31/16 12/10/16 1 Day Ago History Torsemide [Demadex] 100 mg PO QDAY 08/31/16 12/10/16 1 Day Ago History glipiZIDE [Glucotrol] 10 mg PO QDAY 08/31/16 12/10/16 1 Day Ago History Active Meds: Active Medications Albuterol (Proventil) 2.5 mg IH Q3HRT PRN PRN Reason: Wheezing Albuterol/Ipratropium (Duoneb 0.5 Mg-3 Mg/3 Ml Soln) 1 ampul IH Q6HRT [facility] Last Admin: 12/11/16 14:18 Dose: 1 ampul Allopurinol (Zyloprim) 100 mg PO BID [facility] Last Admin: 12/11/16 04:56 Dose: 100 mg Amiodarone HCl (Cordarone) 200 mg PO DAILY [facility] Last Admin: 12/11/16 09:40 Dose: 200 mg Aspirin (Aspirin) 325 mg PO QDAY [facility] Last Admin: 12/11/16 09:40 Dose: 325 mg Carvedilol (Coreg) 25 mg PO BID [facility] Last Admin: 12/11/16 04:56 Dose: 25 mg Enoxaparin Sodium (Lovenox) 40 mg SUB-Q QDAY@1000 [facility] Last Admin: 12/11/16 09:43 Dose: 40 mg Ferrous Sulfate (Feosol) 325 mg PO BID [facility] Last Admin: 12/11/16 04:55 Dose: 325 mg Glipizide (Glucotrol) 10 mg PO QDDIAB [facility] Last Admin: 12/11/16 09:40 Dose: 10 mg Levofloxacin/Dextrose (Levaquin 750mg/150ml) 750 mg in 150 mls @ 100 mls/hr IV Q24HR [facility] PRN Reason: Protocol Last Admin: 12/11/16 09:41 Dose: 100 mls/hr Insulin Aspart (Novolog) 0 units SUB-Q ACHS [facility] PRN Reason: Protocol Last Admin: 12/11/16 16:40 Dose: 4 units Insulin Detemir (Levemir) 10 units SUB-Q QHS [facility] Isosorbide Mononitrate (Imdur) 30 mg PO DAILY [facility] Last Admin: 12/11/16 09:41 Dose: 30 mg Lisinopril (Zestril) 20 mg PO BID [facility] Last Admin: 12/11/16 04:55 Dose: 20 mg Magnesium Oxide (Mag-Ox) 400 mg PO DAILY [facility] Last Admin: 12/11/16 09:43 Dose: 400 mg Methylprednisolone Sodium Succinate (Solu-Medrol) 80 mg IV Q8HR [facility] Last Admin: 12/11/16 13:48 Dose: 80 mg Potassium Chloride (Potassium Chloride) 20 meq PO DAILY [facility] Last Admin: 12/11/16 09:43 Dose: 20 meq Sodium Chloride (Sodium Chloride Flush Syringe 10 Ml) 10 ml IV PRN PRN PRN Reason: LINE FLUSH Spironolactone (Aldactone) 25 mg PO BID [facility] Last Admin: 12/11/16 04:56 Dose: 25 mg Torsemide (Demadex) 100 mg PO QDAY [facility] Last Admin: 12/11/16 09:41 Dose: 100 mg Review of Systems All systems: negative Physical Examination Vital signs: Vital Signs Temp Pulse Resp BP Pulse Ox 98.6 F 75 26 H 133/76 100 12/10/16 15:42 12/10/16 15:42 12/10/16 15:42 12/10/16 15:42 12/10/16 15:42 General appearance: no acute distress, alert Eyes: non-icteric ENT: oropharynx moist Neck: supple, no lymphadenopathy, no JVD, other (Short.) Ascultation: Bilateral: diminished breath sounds Cardiovascular: regular rate and rhythm Gastrointestinal: normoactive bowel sounds, soft, non-tender Integumentary: normal Extremities: no cyanosis, no edema Musculoskeletal: no deformities Gait: other (Can not assess now.) normal mental status, non-focal exam, pupils equal and round, CN II-XII normal mood appropriate Results - Laboratory Findings CBC and BMP: 12/10/16 16:12 12/10/16 16:12 ABG POC ABG pH 7.415 (7.35-7.45) 12/11/16 14:41 POC ABG pCO2 32.2 (35-45) L 12/11/16 14:41 POC ABG pO2 79 (80-105) L 12/11/16 14:41 POC ABG HCO3 20.7 12/11/16 14:41 POC ABG Total CO2 22 12/11/16 14:41 POC ABG O2 Sat 96 12/11/16 14:41 Abnormal lab findings: Abnormal Labs 12/11/16 12/11/16 12/11/16 05:42 08:58 12:18 POC ABG pCO2 POC ABG pO2 POC Glucose 243 H 242 H HDL Cholesterol 33 L 12/11/16 14:41 POC ABG pCO2 32.2 L POC ABG pO2 79 L POC Glucose HDL Cholesterol - Diagnostic Findings Chest x-ray: report reviewed (Mild cardimegaly,AICD implantation.), image reviewed Assessment and Plan This is 45 year old white male Morbidly Obese with history of COPD,Sleep apnea, CHF,AICD implantation,Hypertension, diabetes,CKD presented to the emergency room at [facility] with shortness of breath, chest tightness, Cough with productive yellow sputum. Denies fever,chills or hemoptysis.Patient complaining nasal congestion.Patient has heavy history of smoking. ! pack for 30 years. Stopped smoking one year ago. Never worked. Most of the time he is grown up [place].Patient says he never worked. , children one.Patient denies alcohol or drug abuse. Patient allergic to Keflex and Lidocaine.Patient uses CPAP at home at 20cm H2O pressure. - Patient Problems (1) Acute exacerbation of chronic obstructive pulmonary disease (COPD) Current Visit: Yes Status: Acute Plan to address problem: O2 2 litres via nasal canula. Albuterol/atrovent aerosol treatments q 6 hours. Continue I/V solumedral Continue S/C Lovenox. Continue Levaquin. (2) Morbid obesity due to excess calories Current Visit: Yes Status: Chronic Plan to address problem: Exercise and diet. Consult nutrition for weight reduction diet. (3) Chest tightness Current Visit: Yes Status: Acute Plan to address problem: Likely from coughand shortness of breath. (4) Cardiac defibrillator in place Current Visit: Yes Status: Chronic Plan to address problem: Management as per cardiology. (5) Dilated cardiomyopathy Current Visit: Yes Status: Chronic Plan to address problem: Management as per cardiology. (6) SUZETTE (acute kidney injury) Current Visit: No Status: Acute (7) Diabetes Current Visit: No Status: Acute Qualifiers: Diabetes mellitus type: type 2 Diabetes mellitus complication status: with circulatory complication Diabetes mellitus complication detail: D Diabetic retinopathy severity: D Proliferative retinopathy type: P Diabetes mellitus macular edema: D Diabetes mellitus usp insulin use: D Laterality: L Chronic kidney disease stage: C Plan to address problem: Management as per primary care. (8) HTN (hypertension) Current Visit: No Status: Chronic Qualifiers: Hypertension type: essential hypertension Qualified Code(s): I10 - Essential (primary) hypertension Plan to address problem: Management as per primary care. (9) Sleep apnea, obstructive Current Visit: Yes Status: Acute Plan to address problem: Continue CPAP as he is using at home. @) cm H2O pressure.
[2016-12-11 20:52] LABS: Creatine Kinase MB 2.5 ng/mL (0.0-4.0)
[2016-12-11 20:54] LABS: Creatine Kinase 101 units/L (55-170)
[2016-12-11] MEDS: LEVEMIR SUB-Q SCH (22:42)
[2016-12-12] MEDS: DUONEB 0.5 MG-3 MG/3 ML SOLN IH SCH ×4 (01:43→20:58)
[2016-12-12 08:56] LABS: Basophils % (Auto) 0.2 % (0.0-1.8); Hematocrit 38.8 % (35.5-45.6); Hemoglobin 12.6 gm/dl (11.8-15.2); Mean Corpuscular HGB Conc 32 % (32-34); Mean Corpuscular Hemoglobin 29 pg (28-32); Mean Corpuscular Volume 91 fl (84-94); Platelet Count 202 K/mm3 (140-440); Red Blood Count 4.29 M/mm3 (3.65-5.03); Red Cell Distribution Width 16.5 % (13.2-15.2); White Blood Count 11.6 K/mm3 (4.5-11.0)
[2016-12-12 09:15] LABS: BUN/Creatinine Ratio 12.66; Calcium 9.6 mg/dL (8.4-10.2); Chloride 96.3 mmol/L (98-107); Potassium 3.9 mmol/L (3.6-5.0)
--- NOTE | 2016-12-12 09:41 | XRay Report ---
AP CHEST: HISTORY: Hypoxia AP view of the chest demonstrates a normal mediastinal and cardiac contour with clear lungs and normal bony and soft tissue structures. Pacemaker devices unchanged since the exam 2 days ago. IMPRESSION: No acute cardiopulmonary process.
[2016-12-12] MEDS: LEVAQUIN 750MG/150ML 750 MG/150 ML BAG IV SCH (10:39)
[2016-12-12] MEDS: FEOSOL PO SCH ×2 (10:40→22:58)
[2016-12-12] MEDS: IMDUR PO SCH (10:40)
[2016-12-12] MEDS: POTASSIUM CHLORIDE PO SCH (10:40)
[2016-12-12] MEDS: ASPIRIN PO SCH (10:40)
[2016-12-12] MEDS: CORDARONE PO SCH (10:40)
[2016-12-12] MEDS: ZESTRIL PO SCH ×2 (10:40→22:58)
[2016-12-12] MEDS: COREG PO SCH ×2 (10:41→22:57)
[2016-12-12] MEDS: MAG-OX PO SCH (10:41)
[2016-12-12] MEDS: DEMADEX PO SCH (10:41)
[2016-12-12] MEDS: ZYLOPRIM PO SCH ×2 (10:41→22:58)
[2016-12-12] MEDS: GLUCOTROL PO SCH (10:42)
[2016-12-12] MEDS: LOVENOX SUB-Q SCH (10:42)
[2016-12-12] MEDS: ALDACTONE PO SCH ×2 (10:42→22:58)
[2016-12-12] MEDS: NOVOLOG SUB-Q SCH ×3 (10:43→22:59)
--- NOTE | 2016-12-12 11:52 | Consultation ---
History of Present Illness Consult date: 12/12/16 Consult reason: congestive heart failure History of present illness: This is a 45yr old male that has a nonischemic cardiomyopathy with an indwelling cardiac defibrillator. Most recent cardiac catheterization in September 2015 reports the absence of coronary artery disease. Echocardiogram done a month ago reports an ejection fraction 10-15%. He also has a history of VT/VF and is on amiodarone for suppression. Co-morbidities include COPD, [place], HTN and obesity. He presented to this hospital with complaints of shortness of breath, chest pain , coughs admitted for COPD exacerbation. There is no lower extremity edema. Patient denies syncope. CXR reports no acute process. His ECG shows a AV paced rhythm. There was no AICD discharge. Cardiac consultation requested for CHF. Past History Past Medical History: CAD, COPD, diabetes, heart failure, hypertension Medications and Allergies Allergies Allergy/AdvReac Type Severity Reaction Status Date / Time cephalexin monohydrate Allergy Hives Verified 03/09/15 22:20 [From Keflex] lidocaine Allergy Hives Verified 03/09/15 22:20 mushrooms Allergy Swelling Uncoded 06/26/15 12:23 Home Medications Medication Instructions Recorded Confirmed Last Taken Type Aspirin [Aspirin TAB] 325 mg PO QDAY 05/19/15 12/10/16 1 Day Ago History Ferrous Sulfate [Feosol 325 MG tab] 325 mg PO BID 05/19/15 12/10/16 1 Day Ago History Amiodarone 200 mg PO DAILY 06/23/16 12/10/16 1 Day Ago History Allopurinol [Zyloprim] 100 mg PO BID 08/31/16 12/10/16 1 Day Ago History Carvedilol [Coreg] 25 mg PO BID 08/31/16 12/10/16 1 Day Ago History ISOSORBIDE MONOnitrate [Imdur ER] 30 mg PO DAILY 08/31/16 12/10/16 1 Day Ago History Lisinopril [Zestril TAB] 20 mg PO BID 08/31/16 12/10/16 1 Day Ago History Magnesium Oxide 400 mg PO DAILY 08/31/16 12/10/16 1 Day Ago History Potassium Chloride [Klor-Con] 20 meq PO DAILY 08/31/16 12/10/16 1 Day Ago History Spironolactone [Aldactone] 25 mg PO BID 08/31/16 12/10/16 1 Day Ago History Torsemide [Demadex] 100 mg PO QDAY 08/31/16 12/10/16 1 Day Ago History glipiZIDE [Glucotrol] 10 mg PO QDAY 08/31/16 12/10/16 1 Day Ago History Active Meds: Active Medications Albuterol (Proventil) 2.5 mg IH Q3HRT PRN PRN Reason: Wheezing Albuterol/Ipratropium (Duoneb 0.5 Mg-3 Mg/3 Ml Soln) 1 ampul IH Q6HRT [facility] Last Admin: 12/12/16 08:02 Dose: 1 ampul Allopurinol (Zyloprim) 100 mg PO BID [facility] Last Admin: 12/12/16 10:41 Dose: 100 mg Amiodarone HCl (Cordarone) 200 mg PO DAILY [facility] Last Admin: 12/12/16 10:40 Dose: 200 mg Aspirin (Aspirin) 325 mg PO QDAY [facility] Last Admin: 12/12/16 10:40 Dose: 325 mg Carvedilol (Coreg) 25 mg PO BID [facility] Last Admin: 12/12/16 10:41 Dose: 25 mg Enoxaparin Sodium (Lovenox) 40 mg SUB-Q QDAY@1000 [facility] Last Admin: 12/12/16 10:42 Dose: 40 mg Ferrous Sulfate (Feosol) 325 mg PO BID [facility] Last Admin: 12/12/16 10:40 Dose: 325 mg Glipizide (Glucotrol) 10 mg PO QDDIAB [facility] Last Admin: 12/12/16 10:42 Dose: 10 mg Levofloxacin/Dextrose (Levaquin 750mg/150ml) 750 mg in 150 mls @ 100 mls/hr IV Q24HR [facility] PRN Reason: Protocol Last Admin: 12/12/16 10:39 Dose: 100 mls/hr Insulin Aspart (Novolog) 0 units SUB-Q ACHS [facility] PRN Reason: Protocol Last Admin: 12/12/16 10:43 Dose: 2 units Insulin Detemir (Levemir) 10 units SUB-Q QHS [facility] Last Admin: 12/11/16 22:42 Dose: 10 units Isosorbide Mononitrate (Imdur) 30 mg PO DAILY [facility] Last Admin: 12/12/16 10:40 Dose: 30 mg Lisinopril (Zestril) 20 mg PO BID [facility] Last Admin: 12/12/16 10:40 Dose: 20 mg Magnesium Oxide (Mag-Ox) 400 mg PO DAILY [facility] Last Admin: 12/12/16 10:41 Dose: 400 mg Methylprednisolone Sodium Succinate (Solu-Medrol) 80 mg IV Q8HR [facility] Last Admin: 12/12/16 05:46 Dose: 80 mg Potassium Chloride (Potassium Chloride) 20 meq PO DAILY [facility] Last Admin: 12/12/16 10:40 Dose: 20 meq Sodium Chloride (Sodium Chloride Flush Syringe 10 Ml) 10 ml IV PRN PRN PRN Reason: LINE FLUSH Spironolactone (Aldactone) 25 mg PO BID [facility] Last Admin: 12/12/16 10:42 Dose: 25 mg Torsemide (Demadex) 100 mg PO QDAY [facility] Last Admin: 12/12/16 10:41 Dose: 100 mg Physical Examination Vital Signs Temp Pulse Resp BP Pulse Ox 98.6 F 75 26 H 133/76 100 12/10/16 15:42 12/10/16 15:42 12/10/16 15:42 12/10/16 15:42 12/10/16 15:42 General appearance: no acute distress, obese HEENT: Positive: PERRL Neck: Positive: trachea midline Cardiac: Positive: Other (AV paced) Lungs: Positive: Decreased Breath Sounds Neuro: Positive: Grossly Intact Results 12/12/16 08:38 12/12/16 08:38 Cardiac Enzymes 12/11/16 Range/Units 19:58 CK-MB (CK-2) 2.5 (0.0-4.0) ng/mL CBC 12/12/16 Range/Units 08:38 WBC 11.6 H (4.5-11.0) K/mm3 RBC 4.29 (3.65-5.03) M/mm3 Hgb 12.6 (11.8-15.2) gm/dl Hct 38.8 (35.5-45.6) % Plt Count 202 (140-440) K/mm3 Lymph # 0.7 L (1.2-5.4) K/mm3 Andrew # 0.5 (0.0-0.8) K/mm3 Eos # 0.0 (0.0-0.4) K/mm3 Baso # 0.0 (0.0-0.1) K/mm3 Comprehensive Metabolic Panel 12/12/16 Range/Units 08:38 Sodium 134 L (137-145) mmol/L Potassium 3.9 (3.6-5.0) mmol/L Chloride 96.3 L (98-107) mmol/L Carbon Dioxide 22 (22-30) mmol/L BUN 19 (9-20) mg/dL Creatinine 1.5 (0.8-1.5) mg/dL Glucose 162 H (75-100) mg/dL Calcium 9.6 (8.4-10.2) mg/dL EKG interpretations - Telemetry EKG Rhythm: Paced Assessment and Plan COPD exacerbation Hx of Dilated non ischemic cardiomyopathy at least moderate MR with an EF 10-15% on echo 10/2016 normal coronaries by [facility] 09/2015 s/p AICD ([employer]) [place] Obese Hx of VT/VF on amiodarone Hypertension Continue medical management for his dilated non ischemic cardiomyopathy.
--- NOTE | 2016-12-12 12:23 | Nuclear Medicine Report ---
LUNG SCAN, VENTILATION AND PERFUSION: History: Shortness of breath, hypoxemia. Technique: 5mci of Tc99m MAA was infused for the perfusion images. 15mci XE 133 gas was inhaled for the ventilatory images. Correlation is made with a chest x-ray dated 12/12/16. Findings: Inhalation of Xenon gas demonstrates a normal distribution of the activity throughout both lungs. The wash out phases show no focal retention of activity. After injection of Technetium 99m macroaggregated albumin gamma camera imaging of the lungs in multiple projections demonstrates normal pulmonary contours with a homogeneous distribution of activity. No focal areas of perfusion deficiency are identified. IMPRESSION: Low probability for pulmonary embolus.
--- NOTE | 2016-12-12 19:27 | Progress Note ---
Assessment and Plan This is 45 year old white male Morbidly Obese with history of COPD,Sleep apnea, CHF,AICD implantation,Hypertension, diabetes,CKD [facility], chest tightness, Cough with productive yellow sputum. Denies fever,chills or hemoptysis. 1. COPD exacerbation: Continue with albuterol and Atrovent, oxygen, IV Solu- Medrol, IV Levaquin. 2. Chronic systolic heart failure: Continue with diuresis. Strict input and output, daily weights, and beta blockers ruddy. 3. Nonischemic dilated cardiomyopathy with ejection fraction of 10-15%. Conservative management recommended by government minister. 4. Diabetes mellitus type 2: Sliding scale insulin. Consistent carbohydrates diet. 5. Hypertension: Optimize with oral anti-his medications. 6. Morbid obesity: Dietary counseling and dietitian consult. 7. Obstructive sleep apnea and obesity hypoventilation syndrome on oxygen and possibly CPAP per pulmonary's recommendation if desired. 8. DVT prophylaxis with Lovenox and GI prophylaxis with Protonix. Subjective Date of service: 12/12/16 Principal diagnosis: shortness of breath, Interval history: Started having shortness of breath on slight exertion. Has orthopnea and paroxysmal nocturnal dyspnea. Objective - Constitutional Vitals: Vital Signs - 12hr 12/12/16 12/12/16 12/12/16 08:03 08:48 10:00 Temperature 98.1 F Pulse Rate [ 75 Left Radial] Pulse Rate [ 85 Throughout] Respiratory 20 Rate Respiratory 18 Rate [ Throughout] Blood Pressure 133/76 [Left Arm] O2 Sat by Pulse 95 99 Oximetry 12/12/16 12/12/16 12/12/16 12:32 14:48 16:49 Temperature 98.2 F 97.8 F Pulse Rate [ 72 70 Left Radial] Pulse Rate [ 76 Throughout] Respiratory 20 20 Rate Respiratory 20 Rate [ Throughout] Blood Pressure 127/74 123/73 [Left Arm] O2 Sat by Pulse 96 97 Oximetry General appearance: Present: obese - EENT Eyes: PERRL, EOM intact ENT: hearing intact, clear oral mucosa - Neck Neck: supple, normal ROM - Respiratory Respiratory effort: normal Respiratory: bilateral: diminished - Cardiovascular Rhythm: regular Heart Sounds: Present: S1 & S2. Absent: gallop, rub Extremities: pulses intact, No edema, normal color, Full ROM - Gastrointestinal General gastrointestinal: Present: soft, non-tender, non-distended, normal bowel sounds - Genitourinary Male genitourinary: normal - Integumentary Integumentary: clear, warm, dry - Musculoskeletal Musculoskeletal: 1, strength equal bilaterally - Neurologic Neurologic: moves all extremities - Psychiatric Psychiatric: memory intact, appropriate mood/affect, intact judgment & insight - Labs CBC & Chem 7: 12/12/16 08:38 12/12/16 08:38 Labs: Abnormal lab results 12/11/16 12/12/16 12/12/16 Range/Units 21:51 08:35 08:38 WBC 11.6 H (4.5-11.0) K/mm3 RDW 16.5 H (13.2-15.2) % Lymph % (Auto) 6.5 L (13.4-35.0) % Lymph # 0.7 L (1.2-5.4) K/mm3 Seg Neutrophils % 89.2 H (40.0-70.0) % Seg Neutrophils # 10.3 H (1.8-7.7) K/mm3 Sodium (137-145) mmol/L Chloride (98-107) mmol/L Glucose (75-100) mg/dL POC Glucose 278 H 170 H (70-105) 12/12/16 12/12/16 12/12/16 Range/Units 08:38 12:25 16:30 WBC (4.5-11.0) K/mm3 RDW (13.2-15.2) % Lymph % (Auto) (13.4-35.0) % Lymph # (1.2-5.4) K/mm3 Seg Neutrophils % (40.0-70.0) % Seg Neutrophils # (1.8-7.7) K/mm3 Sodium 134 L (137-145) mmol/L Chloride 96.3 L (98-107) mmol/L Glucose 162 H (75-100) mg/dL POC Glucose 244 H 199 H (70-105)
--- NOTE | 2016-12-12 22:38 | Progress Note ---
Assessment and Plan This is 45 year old white male Morbidly Obese with history of COPD,Sleep apnea, CHF,AICD implantation,Hypertension, diabetes,CKD presented to the emergency room at [facility] with shortness of breath, chest tightness, Cough with productive yellow sputum. Denies fever,chills or hemoptysis.Patient complaining nasal congestion.Patient has heavy history of smoking. ! pack for 30 years. Stopped smoking one year ago. Never worked. Most of the time [place]Patient says he never worked. , children one.Patient denies alcohol or drug abuse. Patient allergic to Keflex and Lidocaine.Patient uses CPAP at home at 20cm H2O pressure. Patient resting on room air. O2 satuaration 97%. Says breathing better.Using CPAP 10 ch H2O pressure during night time. - Patient Problems (1) Acute exacerbation of chronic obstructive pulmonary disease (COPD) Current Visit: Yes Status: Acute Plan to address problem: O2 2 litres via nasal canula. Albuterol/atrovent aerosol treatments q 6 hours. Continue I/V solumedral Continue S/C Lovenox. Continue Levaquin. (2) Morbid obesity due to excess calories Current Visit: Yes Status: Chronic Plan to address problem: Exercise and diet. Consult nutrition for weight reduction diet. (3) Chest tightness Current Visit: Yes Status: Acute Plan to address problem: Likely from coughand shortness of breath. (4) Cardiac defibrillator in place Current Visit: Yes Status: Chronic Plan to address problem: Management as per cardiology. (5) Dilated cardiomyopathy Current Visit: Yes Status: Chronic Plan to address problem: Management as per cardiology. (6) SUZETTE (acute kidney injury) Current Visit: No Status: Acute Plan to address problem: Management as per primary care and nephrology. (7) Diabetes Current Visit: No Status: Acute Qualifiers: Diabetes mellitus type: type 2 Diabetes mellitus complication status: with circulatory complication Diabetes mellitus complication detail: D Diabetic retinopathy severity: D Proliferative retinopathy type: P Diabetes mellitus macular edema: D Diabetes mellitus care home insulin use: D Laterality: L Chronic kidney disease stage: C Plan to address problem: Management as per primary care. (8) HTN (hypertension) Current Visit: No Status: Chronic Qualifiers: Hypertension type: essential hypertension Qualified Code(s): I10 - Essential (primary) hypertension Plan to address problem: Management as per primary care. (9) Sleep apnea, obstructive Current Visit: Yes Status: Resolved Plan to address problem: Continue CPAP as he is using at home. 10 cm H2O pressure. Subjective Date of service: 12/12/16 Principal diagnosis: shortness of breath, Interval history: Patient resting on room air. O2 satuaration 97%. Says breathing better.Using CPAP 10 ch H2O pressure during night time. Objective Vital Signs - 12hr 12/12/16 12/12/16 12/12/16 12:32 14:48 16:49 Temperature 98.2 F 97.8 F Pulse Rate Pulse Rate [ Apical] Pulse Rate [ 72 70 Left Radial] Pulse Rate [ 76 Throughout] Respiratory 20 20 Rate Respiratory 20 Rate [ Throughout] Blood Pressure 127/74 123/73 [Left Arm] O2 Sat by Pulse 96 97 Oximetry 12/12/16 12/12/16 12/12/16 20:00 20:25 21:00 Temperature 98.1 F Pulse Rate 65 Pulse Rate [ 77 Apical] Pulse Rate [ Left Radial] Pulse Rate [ 71 Throughout] Respiratory 20 Rate Respiratory 18 Rate [ Throughout] Blood Pressure 126/69 [Left Arm] O2 Sat by Pulse 95 Oximetry 12/12/16 12/12/16 21:16 21:17 Temperature Pulse Rate Pulse Rate [ Apical] Pulse Rate [ Left Radial] Pulse Rate [ 70 Throughout] Respiratory Rate Respiratory 20 Rate [ Throughout] Blood Pressure [Left Arm] O2 Sat by Pulse 97 Oximetry Constitutional: no acute distress, alert Eyes: non-icteric ENT: oropharynx moist Neck: supple, no lymphadenopathy, no JVD, other (Short.) Ascultation: Bilateral: diminished breath sounds Cardiovascular: regular rate and rhythm Gastrointestinal: normoactive bowel sounds, soft, non-tender Integumentary: normal Extremities: no cyanosis, no edema Neurologic: normal mental status, non-focal exam, pupils equal and round, CN II- XII normal Psychiatric: mood appropriate CBC and BMP: 12/12/16 08:38 12/12/16 08:38 ABG, PT/INR, D-dimer: ABG POC ABG pH 7.415 (7.35-7.45) 12/11/16 14:41 POC ABG pCO2 32.2 (35-45) L 12/11/16 14:41 POC ABG pO2 79 (80-105) L 12/11/16 14:41 POC ABG HCO3 20.7 12/11/16 14:41 POC ABG Total CO2 22 12/11/16 14:41 POC ABG O2 Sat 96 12/11/16 14:41 Abnormal lab findings: Abnormal Labs 12/11/16 12/11/16 12/11/16 05:42 08:58 12:18 WBC RDW Lymph % (Auto) Lymph # Seg Neutrophils % Seg Neutrophils # POC ABG pCO2 POC ABG pO2 Sodium Chloride Glucose POC Glucose 243 H 242 H HDL Cholesterol 33 L 12/11/16 12/11/16 12/11/16 14:41 17:14 21:51 WBC RDW Lymph % (Auto) Lymph # Seg Neutrophils % Seg Neutrophils # POC ABG pCO2 32.2 L POC ABG pO2 79 L Sodium Chloride Glucose POC Glucose 179 H 278 H HDL Cholesterol 12/12/16 12/12/16 12/12/16 08:35 08:38 08:38 WBC 11.6 H RDW 16.5 H Lymph % (Auto) 6.5 L Lymph # 0.7 L Seg Neutrophils % 89.2 H Seg Neutrophils # 10.3 H POC ABG pCO2 POC ABG pO2 Sodium 134 L Chloride 96.3 L Glucose 162 H POC Glucose 170 H HDL Cholesterol 12/12/16 12/12/16 12/12/16 12:25 16:30 21:30 WBC RDW Lymph % (Auto) Lymph # Seg Neutrophils % Seg Neutrophils # POC ABG pCO2 POC ABG pO2 Sodium Chloride Glucose POC Glucose 244 H 199 H 265 H HDL Cholesterol Chest x-ray: report reviewed (No acute process.), image reviewed
[2016-12-12] MEDS: LEVEMIR SUB-Q SCH (22:59)
[2016-12-13] MEDS: DUONEB 0.5 MG-3 MG/3 ML SOLN IH SCH ×4 (03:11→20:07)
[2016-12-13 07:39] LABS: Basophils % (Auto) 0.1 % (0.0-1.8); Hematocrit 39.8 % (35.5-45.6); Hemoglobin 12.9 gm/dl (11.8-15.2); Mean Corpuscular HGB Conc 32 % (32-34); Mean Corpuscular Hemoglobin 30 pg (28-32); Mean Corpuscular Volume 91 fl (84-94); Platelet Count 207 K/mm3 (140-440); Red Blood Count 4.36 M/mm3 (3.65-5.03); Red Cell Distribution Width 16.3 % (13.2-15.2); White Blood Count 13.7 K/mm3 (4.5-11.0)
[2016-12-13 07:56] LABS: Albumin/Globulin Ratio 1.2 %; BUN/Creatinine Ratio 14.7; Bilirubin,Total 1.6 mg/dL (0.1-1.2); Calcium 9.1 mg/dL (8.4-10.2); Chloride 95.6 mmol/L (98-107); Magnesium 2.2 mg/dL (1.7-2.3); Potassium 3.7 mmol/L (3.6-5.0); Total Protein 7.4 g/dL (6.3-8.2)
[2016-12-13] MEDS: NOVOLOG SUB-Q SCH ×4 (08:00→22:31)
--- NOTE | 2016-12-13 10:19 | Progress Note ---
Assessment and Plan COPD exacerbation V/Q scan reports a low probability for pulmonary embolus Hx of Dilated non ischemic cardiomyopathy at least moderate MR with an EF 10-15% on echo 10/2016 normal coronaries by [facility] 09/2015 s/p AICD ([employer]) [place] Obese Hx of VT/VF on amiodarone Hypertension Continue medical management for his dilated non ischemic cardiomyopathy. Subjective Date of service: 12/13/16 Principal diagnosis: shortness of breath, Interval history: Patient reports he is feeling somewhat better. Objective Vital Signs Temp Pulse Pulse Pulse Pulse Resp Resp 12/13/16 08:11 76 18 12/13/16 06:42 97.6 F 67 20 12/13/16 03:12 77 20 12/13/16 03:00 79 20 12/13/16 00:45 97.6 F 64 22 12/12/16 22:58 78 12/12/16 22:57 78 12/12/16 21:17 12/12/16 21:16 70 20 12/12/16 21:00 71 18 12/12/16 20:25 98.1 F 77 20 12/12/16 20:00 65 12/12/16 16:49 97.8 F 70 20 12/12/16 14:48 76 20 12/12/16 12:32 98.2 F 72 20 BP BP Pulse Ox 12/13/16 08:11 12/13/16 06:42 125/74 97 12/13/16 03:12 12/13/16 03:00 12/13/16 00:45 119/65 95 12/12/16 22:58 126/69 12/12/16 22:57 126/69 12/12/16 21:17 97 12/12/16 21:16 12/12/16 21:00 12/12/16 20:25 126/69 95 12/12/16 20:00 12/12/16 16:49 123/73 97 12/12/16 14:48 12/12/16 12:32 127/74 96 - Physical Examination General: No Apparent Distress HEENT: Positive: PERRL Neck: Positive: trachea midline Cardiac: Positive: Other (paced) Lungs: Positive: Decreased Breath Sounds Neuro: Positive: Grossly Intact - Labs and Meds Cardiac Enzymes 12/13/16 Range/Units 06:53 AST 11 (5-40) units/L CBC 12/13/16 Range/Units 06:53 WBC 13.7 H (4.5-11.0) K/mm3 RBC 4.36 (3.65-5.03) M/mm3 Hgb 12.9 (11.8-15.2) gm/dl Hct 39.8 (35.5-45.6) % Plt Count 207 (140-440) K/mm3 Lymph # 0.8 L (1.2-5.4) K/mm3 Kings # 0.8 (0.0-0.8) K/mm3 Eos # 0.0 (0.0-0.4) K/mm3 Baso # 0.0 (0.0-0.1) K/mm3 Comprehensive Metabolic Panel 12/13/16 Range/Units 06:53 Sodium 133 L (137-145) mmol/L Potassium 3.7 (3.6-5.0) mmol/L Chloride 95.6 L (98-107) mmol/L Carbon Dioxide 21 L (22-30) mmol/L BUN 25 H (9-20) mg/dL Creatinine 1.7 H (0.8-1.5) mg/dL Glucose 216 H (75-100) mg/dL Calcium 9.1 (8.4-10.2) mg/dL AST 11 (5-40) units/L ALT 13 (7-56) units/L Alkaline Phosphatase 68 (35-129) units/L Total Protein 7.4 (6.3-8.2) g/dL Albumin 4.0 (3.9-5) g/dL
[2016-12-13] MEDS: LEVAQUIN 750MG/150ML 750 MG/150 ML BAG IV SCH (11:00)
[2016-12-13] MEDS: GLUCOTROL PO SCH (11:02)
[2016-12-13] MEDS: ASPIRIN PO SCH (11:02)
[2016-12-13] MEDS: ALDACTONE PO SCH ×2 (11:02→22:22)
[2016-12-13] MEDS: CORDARONE PO SCH (11:03)
[2016-12-13] MEDS: COREG PO SCH ×2 (11:03→22:23)
[2016-12-13] MEDS: IMDUR PO SCH (11:03)
[2016-12-13] MEDS: FEOSOL PO SCH ×2 (11:03→22:23)
[2016-12-13] MEDS: DEMADEX PO SCH (11:03)
[2016-12-13] MEDS: POTASSIUM CHLORIDE PO SCH (11:04)
[2016-12-13] MEDS: ZESTRIL PO SCH ×2 (11:04→22:23)
[2016-12-13] MEDS: MAG-OX PO SCH (11:04)
[2016-12-13] MEDS: LOVENOX SUB-Q SCH (11:04)
[2016-12-13] MEDS: ZYLOPRIM PO SCH ×2 (11:05→22:23)
--- NOTE | 2016-12-13 16:46 | Progress Note ---
Assessment and Plan This is 45 year old white male Morbidly Obese with history of COPD,Sleep apnea, CHF,AICD implantation,Hypertension, diabetes,CKD presented to the emergency room at [facility] with shortness of breath, chest tightness, Cough with productive yellow sputum. Denies fever,chills or hemoptysis.Patient complaining nasal congestion.Patient has heavy history of smoking. ! pack for 30 years. Stopped smoking one year ago. Never worked. Most of the time he is grown up in [place].Patient says he never worked. , children one.Patient denies alcohol or drug abuse. Patient allergic to Keflex and Lidocaine.Patient uses CPAP at home at 20cm H2O pressure. Patients condition same.Patient resting on room air. O2 satuaration 97%. Says breathing better.Using CPAP 10 ch H2O pressure during night time. - Patient Problems (1) Acute exacerbation of chronic obstructive pulmonary disease (COPD) Current Visit: Yes Status: Acute Plan to address problem: O2 2 litres via nasal canula. Albuterol/atrovent aerosol treatments q 6 hours. Recommend to taper I/V solumedral Continue S/C Lovenox. Continue Levaquin. (2) Morbid obesity due to excess calories Current Visit: Yes Status: Chronic Plan to address problem: Exercise and diet. Consult nutrition for weight reduction diet. (3) Chest tightness Current Visit: Yes Status: Acute Plan to address problem: Likely from coughand shortness of breath. (4) Cardiac defibrillator in place Current Visit: Yes Status: Chronic Plan to address problem: Management as per cardiology. (5) Dilated cardiomyopathy Current Visit: Yes Status: Chronic Plan to address problem: Management as per cardiology. (6) SUZETTE (acute kidney injury) Current Visit: No Status: Acute Plan to address problem: Management as per primary care and nephrology. (7) Diabetes Current Visit: No Status: Acute Qualifiers: Diabetes mellitus type: type 2 Diabetes mellitus complication status: with circulatory complication Diabetes mellitus complication detail: D Diabetic retinopathy severity: D Proliferative retinopathy type: P Diabetes mellitus macular edema: D Diabetes mellitus lab[employer] insulin use: D Laterality: L Chronic kidney disease stage: C Plan to address problem: Management as per primary care. (8) HTN (hypertension) Current Visit: No Status: Chronic Qualifiers: Hypertension type: essential hypertension Qualified Code(s): I10 - Essential (primary) hypertension Plan to address problem: Management as per primary care. (9) Sleep apnea, obstructive Current Visit: Yes Status: Resolved Plan to address problem: Continue CPAP as he is using at home. 10 cm H2O pressure. Subjective Date of service: 12/13/16 Principal diagnosis: shortness of breath, Interval history: Patients condition same.Patient resting on room air. O2 satuaration 97%. Says breathing better.Using CPAP 10 ch H2O pressure during night time. Objective Vital Signs - 12hr 12/13/16 12/13/16 12/13/16 06:42 07:55 08:11 Temperature 97.6 F 97.4 F L Pulse Rate Pulse Rate [ 67 Apical] Pulse Rate [ 70 Left Radial] Pulse Rate [ 76 Throughout] Respiratory 20 22 Rate Respiratory 18 Rate [ Throughout] Blood Pressure 125/74 135/83 [Left Arm] O2 Sat by Pulse 97 96 Oximetry 12/13/16 12/13/16 12/13/16 10:00 11:06 13:41 Temperature Pulse Rate 71 Pulse Rate [ Apical] Pulse Rate [ Left Radial] Pulse Rate [ 81 Throughout] Respiratory 20 Rate Respiratory 18 Rate [ Throughout] Blood Pressure [Left Arm] O2 Sat by Pulse 97 Oximetry Constitutional: no acute distress, alert Eyes: non-icteric ENT: oropharynx moist Neck: supple, no lymphadenopathy, no JVD, other (Short.) Ascultation: Bilateral: diminished breath sounds Cardiovascular: regular rate and rhythm Gastrointestinal: normoactive bowel sounds, soft, non-tender Integumentary: normal Extremities: no cyanosis, no edema Neurologic: normal mental status, non-focal exam, pupils equal and round, CN II- XII normal Psychiatric: mood appropriate CBC and BMP: 12/13/16 06:53 12/13/16 06:53 ABG, PT/INR, D-dimer: ABG POC ABG pH 7.415 (7.35-7.45) 12/11/16 14:41 POC ABG pCO2 32.2 (35-45) L 12/11/16 14:41 POC ABG pO2 79 (80-105) L 12/11/16 14:41 POC ABG HCO3 20.7 12/11/16 14:41 POC ABG Total CO2 22 12/11/16 14:41 POC ABG O2 Sat 96 12/11/16 14:41 Abnormal lab findings: Abnormal Labs 12/11/16 12/11/16 12/11/16 05:42 08:58 12:18 WBC RDW Lymph % (Auto) Lymph # Seg Neutrophils % Seg Neutrophils # POC ABG pCO2 POC ABG pO2 Sodium Chloride Carbon Dioxide BUN Creatinine Glucose POC Glucose 243 H 242 H Total Bilirubin HDL Cholesterol 33 L 12/11/16 12/11/16 12/11/16 14:41 17:14 21:51 WBC RDW Lymph % (Auto) Lymph # Seg Neutrophils % Seg Neutrophils # POC ABG pCO2 32.2 L POC ABG pO2 79 L Sodium Chloride Carbon Dioxide BUN Creatinine Glucose POC Glucose 179 H 278 H Total Bilirubin HDL Cholesterol 12/12/16 12/12/16 12/12/16 08:35 08:38 08:38 WBC 11.6 H RDW 16.5 H Lymph % (Auto) 6.5 L Lymph # 0.7 L Seg Neutrophils % 89.2 H Seg Neutrophils # 10.3 H POC ABG pCO2 POC ABG pO2 Sodium 134 L Chloride 96.3 L Carbon Dioxide BUN Creatinine Glucose 162 H POC Glucose 170 H Total Bilirubin HDL Cholesterol 12/12/16 12/12/16 12/12/16 12:25 16:30 21:30 WBC RDW Lymph % (Auto) Lymph # Seg Neutrophils % Seg Neutrophils # POC ABG pCO2 POC ABG pO2 Sodium Chloride Carbon Dioxide BUN Creatinine Glucose POC Glucose 244 H 199 H 265 H Total Bilirubin HDL Cholesterol 12/13/16 12/13/16 12/13/16 06:53 06:53 08:04 WBC 13.7 H RDW 16.3 H Lymph % (Auto) 5.9 L Lymph # 0.8 L Seg Neutrophils % 88.0 H Seg Neutrophils # 12.1 H POC ABG pCO2 POC ABG pO2 Sodium 133 L Chloride 95.6 L Carbon Dioxide 21 L BUN 25 H Creatinine 1.7 H Glucose 216 H POC Glucose 203 H Total Bilirubin 1.6 H HDL Cholesterol 12/13/16 11:54 WBC RDW Lymph % (Auto) Lymph # Seg Neutrophils % Seg Neutrophils # POC ABG pCO2 POC ABG pO2 Sodium Chloride Carbon Dioxide BUN Creatinine Glucose POC Glucose 233 H Total Bilirubin HDL Cholesterol
[2016-12-13] MEDS: ZITHROMAX 500 MG in NACL 0.9% 250ML 250 ML IV SCH (17:46)
--- NOTE | 2016-12-13 21:29 | Progress Note ---
Assessment and Plan This is 45 year old white male Morbidly Obese with history of COPD,Sleep apnea, CHF,AICD implantation,Hypertension, diabetes,CKD presented to the emergency room at [facility] with shortness of breath, chest tightness, Cough with productive yellow sputum. Denies fever,chills or hemoptysis. 1. COPD exacerbation: Continue with albuterol and Atrovent, oxygen, IV Solu- Medrol, IV Levaquin. 2. Chronic systolic heart failure: Continue with diuresis. Strict input and output, daily weights, and beta blockers ruddy. 3. Nonischemic dilated cardiomyopathy with ejection fraction of 10-15%. Conservative management recommended by fisher crab. 4. Diabetes mellitus type 2: Sliding scale insulin. Consistent carbohydrates diet. 5. Hypertension: Optimize with oral anti-his medications. 6. Morbid obesity: Dietary counseling and dietitian consult. 7. Hyperbilirubinemia: We'll trend. 8. Obstructive sleep apnea and obesity hypoventilation syndrome on oxygen and possibly CPAP per pulmonary's recommendation if desired. 9. DVT prophylaxis with Lovenox and GI prophylaxis with Protonix. Subjective Date of service: 12/13/16 Principal diagnosis: shortness of breath, Interval history: Started having shortness of breath on slight exertion. Has orthopnea and paroxysmal nocturnal dyspnea. Objective - Constitutional Vitals: Vital Signs - 12hr 12/13/16 12/13/16 12/13/16 10:00 11:06 13:41 Temperature Pulse Rate 71 Pulse Rate [ Apical] Pulse Rate [ Right Radial] Pulse Rate [ 81 Throughout] Respiratory 20 Rate Respiratory 18 Rate [ Throughout] Blood Pressure [Left Arm] O2 Sat by Pulse 97 Oximetry 12/13/16 12/13/16 12/13/16 16:30 20:09 20:20 Temperature 98.9 F Pulse Rate Pulse Rate [ Apical] Pulse Rate [ 80 Right Radial] Pulse Rate [ 77 52 L Throughout] Respiratory 22 Rate Respiratory 20 20 Rate [ Throughout] Blood Pressure 139/82 [Left Arm] O2 Sat by Pulse 98 98 Oximetry 12/13/16 20:57 Temperature 97.6 F Pulse Rate Pulse Rate [ 72 Apical] Pulse Rate [ Right Radial] Pulse Rate [ Throughout] Respiratory 20 Rate Respiratory Rate [ Throughout] Blood Pressure 117/80 [Left Arm] O2 Sat by Pulse 98 Oximetry General appearance: Present: no acute distress, well-nourished - EENT Eyes: PERRL, EOM intact ENT: hearing intact, clear oral mucosa Ears: bilateral: normal - Neck Neck: supple, normal ROM - Respiratory Respiratory effort: normal Respiratory: bilateral: CTA - Breasts Breasts: normal - Cardiovascular Rhythm: regular Heart Sounds: Present: S1 & S2. Absent: gallop, rub Extremities: pulses intact, No edema, normal color, Full ROM - Gastrointestinal General gastrointestinal: Present: soft, non-tender, non-distended, normal bowel sounds - Genitourinary Male genitourinary: normal - Integumentary Integumentary: clear, warm, dry - Musculoskeletal Musculoskeletal: 1, strength equal bilaterally - Neurologic Neurologic: moves all extremities - Psychiatric Psychiatric: memory intact, appropriate mood/affect, intact judgment & insight - Labs CBC & Chem 7: 12/13/16 06:53 12/13/16 06:53 Labs: Abnormal lab results 12/12/16 12/13/16 12/13/16 Range/Units 21:30 06:53 06:53 WBC 13.7 H (4.5-11.0) K/mm3 RDW 16.3 H (13.2-15.2) % Lymph % (Auto) 5.9 L (13.4-35.0) % Lymph # 0.8 L (1.2-5.4) K/mm3 Seg Neutrophils % 88.0 H (40.0-70.0) % Seg Neutrophils # 12.1 H (1.8-7.7) K/mm3 Sodium 133 L (137-145) mmol/L Chloride 95.6 L (98-107) mmol/L Carbon Dioxide 21 L (22-30) mmol/L BUN 25 H (9-20) mg/dL Creatinine 1.7 H (0.8-1.5) mg/dL Glucose 216 H (75-100) mg/dL POC Glucose 265 H (70-105) Total Bilirubin 1.6 H (0.1-1.2) mg/dL 12/13/16 12/13/16 Range/Units 08:04 11:54 WBC (4.5-11.0) K/mm3 RDW (13.2-15.2) % Lymph % (Auto) (13.4-35.0) % Lymph # (1.2-5.4) K/mm3 Seg Neutrophils % (40.0-70.0) % Seg Neutrophils # (1.8-7.7) K/mm3 Sodium (137-145) mmol/L Chloride (98-107) mmol/L Carbon Dioxide (22-30) mmol/L BUN (9-20) mg/dL Creatinine (0.8-1.5) mg/dL Glucose (75-100) mg/dL POC Glucose 203 H 233 H (70-105) Total Bilirubin (0.1-1.2) mg/dL
[2016-12-13] MEDS: LEVEMIR SUB-Q SCH (22:24)
[2016-12-14 06:00] LABS: Basophils % (Auto) 0.1 % (0.0-1.8); Hematocrit 37.2 % (35.5-45.6); Hemoglobin 12.3 gm/dl (11.8-15.2); Mean Corpuscular HGB Conc 33 % (32-34); Mean Corpuscular Hemoglobin 30 pg (28-32); Mean Corpuscular Volume 90 fl (84-94); Platelet Count 180 K/mm3 (140-440); Red Blood Count 4.11 M/mm3 (3.65-5.03); Red Cell Distribution Width 16.3 % (13.2-15.2); White Blood Count 10.4 K/mm3 (4.5-11.0)
[2016-12-14 06:19] LABS: Albumin 3.7 g/dL (3.9-5); Albumin/Globulin Ratio 1.4 %; Bilirubin,Total 1.1 mg/dL (0.1-1.2); Calcium 8.7 mg/dL (8.4-10.2); Chloride 97.4 mmol/L (98-107); Potassium 3.2 mmol/L (3.6-5.0); Total Protein 6.4 g/dL (6.3-8.2)
[2016-12-14] MEDS: NOVOLOG SUB-Q SCH ×4 (08:00→23:01)
[2016-12-14] MEDS: DUONEB 0.5 MG-3 MG/3 ML SOLN IH SCH ×3 (09:21→20:14)
[2016-12-14] MEDS: ASPIRIN PO SCH (10:00)
[2016-12-14] MEDS: IMDUR PO SCH (10:00)
[2016-12-14] MEDS: ZESTRIL PO SCH ×2 (10:00→22:55)
[2016-12-14] MEDS: MAG-OX PO SCH (10:00)
[2016-12-14] MEDS: FEOSOL PO SCH ×2 (10:00→22:55)
[2016-12-14] MEDS: ZYLOPRIM PO SCH ×2 (10:00→22:54)
[2016-12-14] MEDS: ALDACTONE PO SCH ×2 (10:00→22:55)
[2016-12-14] MEDS: GLUCOTROL PO SCH (10:00)
[2016-12-14] MEDS: COREG PO SCH ×2 (10:00→22:54)
[2016-12-14] MEDS: DEMADEX PO SCH (10:00)
[2016-12-14] MEDS: POTASSIUM CHLORIDE PO SCH (10:00)
[2016-12-14] MEDS: LOVENOX SUB-Q SCH (10:00)
[2016-12-14] MEDS: CORDARONE PO SCH (10:00)
--- NOTE | 2016-12-14 11:50 | Progress Note ---
Assessment and Plan (1) Acute exacerbation of chronic obstructive pulmonary disease (COPD) Current Visit: Yes Status: Acute Plan to address problem: - continue Ooxygen via nasal canula for sats > 92% - continue Albuterol/atrovent aerosol treatments q 6 hours. - begin systemic steroid taper - Continue S/C Lovenox. - complete 5 days empiric Levaquin. (2) Morbid obesity due to excess calories Current Visit: Yes Status: Chronic Plan to address problem: - recommended Exercise and diet. - recommended Consult nutrition for weight reduction diet. (3) Chest tightness Current Visit: Yes Status: Acute Plan to address problem: - improved - Likely from cough and shortness of breath. (4) Cardiac defibrillator in place Current Visit: Yes Status: Chronic Plan to address problem: - Management as per cardiology. (5) Dilated cardiomyopathy Current Visit: Yes Status: Chronic Plan to address problem: - Management as per cardiology. (6) SUZETTE (acute kidney injury) Current Visit: No Status: Acute Plan to address problem: - Management as per primary care and nephrology. (7) Diabetes Current Visit: No Status: Acute Qualifiers: Diabetes mellitus type: type 2 Diabetes mellitus complication status: with circulatory complication Diabetes mellitus complication detail: D Diabetic retinopathy severity: D Proliferative retinopathy type: P Diabetes mellitus macular edema: D Diabetes mellitus longterm insulin use: D Laterality: L Chronic kidney disease stage: C Plan to address problem: - continue SSI - Management as per primary care. (8) HTN (hypertension) Current Visit: No Status: Chronic Qualifiers: Hypertension type: essential hypertension Qualified Code(s): I10 - Essential (primary) hypertension Plan to address problem: - Management as per primary care. (9) Sleep apnea, obstructive Current Visit: Yes Status: Resolved Plan to address problem: - Continue home CPAP use - 10 cm H2O pressure. Subjective Date of service: 12/14/16 Principal diagnosis: Acute COPD exacerbation; [place] Interval history: Seen and examined at bedside; 24 hour events reviewed; nursing and respiratory care staff consulted; no adverse overnight events reported to me; feels a little better but still SOB; denies acute chest pains Objective Vital Signs - 12hr 12/14/16 12/14/16 12/14/16 00:50 04:50 07:50 Temperature 98.2 F 97.9 F 97.5 F L Pulse Rate [ 62 76 Apical] Pulse Rate [ 72 Right Radial] Pulse Rate [ Throughout] Respiratory 20 20 22 Rate Respiratory Rate [ Throughout] Blood Pressure 130/77 110/62 106/67 [Left Arm] O2 Sat by Pulse 99 95 97 Oximetry 12/14/16 12/14/16 08:00 09:23 Temperature Pulse Rate [ Apical] Pulse Rate [ Right Radial] Pulse Rate [ 69 68 Throughout] Respiratory Rate Respiratory 18 19 Rate [ Throughout] Blood Pressure [Left Arm] O2 Sat by Pulse 97 Oximetry Constitutional: no acute distress, alert Eyes: non-icteric ENT: oropharynx moist Neck: supple, no lymphadenopathy, no JVD, other (Short.) Effort: mildly labored Ascultation: Bilateral: diminished breath sounds (prolonged exp phase), wheezes (expiratory) Cardiovascular: regular rate and rhythm Gastrointestinal: normoactive bowel sounds, soft, non-tender, non-distended Integumentary: normal Extremities: no cyanosis, no edema, pink and warm, pulses normal Neurologic: normal mental status, non-focal exam, pupils equal and round, motor strength normal and Psychiatric: mood appropriate, affect normal CBC and BMP: 12/14/16 05:32 12/14/16 05:32 ABG, PT/INR, D-dimer: ABG POC ABG pH 7.415 (7.35-7.45) 12/11/16 14:41 POC ABG pCO2 32.2 (35-45) L 12/11/16 14:41 POC ABG pO2 79 (80-105) L 12/11/16 14:41 POC ABG HCO3 20.7 12/11/16 14:41 POC ABG Total CO2 22 12/11/16 14:41 POC ABG O2 Sat 96 12/11/16 14:41 Abnormal lab findings: Abnormal Labs 12/11/16 12/11/16 12/11/16 05:42 08:58 12:18 WBC RDW Lymph % (Auto) Lymph # Seg Neutrophils % Seg Neutrophils # POC ABG pCO2 POC ABG pO2 Sodium Potassium Chloride Carbon Dioxide BUN Creatinine Glucose POC Glucose 243 H 242 H Total Bilirubin Albumin HDL Cholesterol 33 L 12/11/16 12/11/16 12/11/16 14:41 17:14 21:51 WBC RDW Lymph % (Auto) Lymph # Seg Neutrophils % Seg Neutrophils # POC ABG pCO2 32.2 L POC ABG pO2 79 L Sodium Potassium Chloride Carbon Dioxide BUN Creatinine Glucose POC Glucose 179 H 278 H Total Bilirubin Albumin HDL Cholesterol 12/12/16 12/12/16 12/12/16 08:35 08:38 08:38 WBC 11.6 H RDW 16.5 H Lymph % (Auto) 6.5 L Lymph # 0.7 L Seg Neutrophils % 89.2 H Seg Neutrophils # 10.3 H POC ABG pCO2 POC ABG pO2 Sodium 134 L Potassium Chloride 96.3 L Carbon Dioxide BUN Creatinine Glucose 162 H POC Glucose 170 H Total Bilirubin Albumin HDL Cholesterol 12/12/16 12/12/16 12/12/16 12:25 16:30 21:30 WBC RDW Lymph % (Auto) Lymph # Seg Neutrophils % Seg Neutrophils # POC ABG pCO2 POC ABG pO2 Sodium Potassium Chloride Carbon Dioxide BUN Creatinine Glucose POC Glucose 244 H 199 H 265 H Total Bilirubin Albumin HDL Cholesterol 12/13/16 12/13/16 12/13/16 06:53 06:53 08:04 WBC 13.7 H RDW 16.3 H Lymph % (Auto) 5.9 L Lymph # 0.8 L Seg Neutrophils % 88.0 H Seg Neutrophils # 12.1 H POC ABG pCO2 POC ABG pO2 Sodium 133 L Potassium Chloride 95.6 L Carbon Dioxide 21 L BUN 25 H Creatinine 1.7 H Glucose 216 H POC Glucose 203 H Total Bilirubin 1.6 H Albumin HDL Cholesterol 12/13/16 12/13/16 12/13/16 11:54 16:49 22:00 WBC RDW Lymph % (Auto) Lymph # Seg Neutrophils % Seg Neutrophils # POC ABG pCO2 POC ABG pO2 Sodium Potassium Chloride Carbon Dioxide BUN Creatinine Glucose POC Glucose 233 H 308 H 263 H Total Bilirubin Albumin HDL Cholesterol 12/14/16 12/14/16 12/14/16 05:32 05:32 07:55 WBC RDW 16.3 H Lymph % (Auto) 5.7 L Lymph # 0.6 L Seg Neutrophils % 88.6 H Seg Neutrophils # 9.2 H POC ABG pCO2 POC ABG pO2 Sodium Potassium 3.2 L Chloride 97.4 L Carbon Dioxide 20 L BUN 24 H Creatinine Glucose 244 H POC Glucose 186 H Total Bilirubin Albumin 3.7 L HDL Cholesterol
--- NOTE | 2016-12-14 13:46 | Event Note ---
Date: 12/14/16 Patient states that he is seeing Dr. Wilson / Dr. Graf's group and i have informed his nurse to contact their group
--- NOTE | 2016-12-14 14:06 | Progress Note ---
Assessment and Plan COPD exacerbation V/Q scan reports a low probability for pulmonary embolus Hx of Dilated non ischemic cardiomyopathy at least moderate MR with an EF 10-15% on echo 10/2016 normal coronaries by [facility] 09/2015 s/p AICD (Runfacestronic) [place] Obese Hx of VT/VF on amiodarone Hypertension Continue medical management for his dilated non ischemic cardiomyopathy. Subjective Date of service: 12/14/16 Principal diagnosis: Acute COPD exacerbation; [place] Interval history: Patient reports still with shortness of breath. Objective Vital Signs Temp Pulse Pulse Pulse Pulse Pulse Resp 12/14/16 13:55 70 12/14/16 11:40 97.8 F 70 20 12/14/16 11:00 70 12/14/16 10:00 20 12/14/16 09:23 68 12/14/16 08:00 69 12/14/16 07:50 97.5 F L 72 22 12/14/16 04:50 97.9 F 76 20 12/14/16 00:50 98.2 F 62 20 12/13/16 22:23 75 12/13/16 20:57 97.6 F 72 20 12/13/16 20:20 52 L 12/13/16 20:09 77 12/13/16 20:06 77 12/13/16 16:30 98.9 F 80 22 Resp BP BP Pulse Ox 12/14/16 13:55 18 12/14/16 11:40 122/71 96 12/14/16 11:00 12/14/16 10:00 12/14/16 09:23 19 97 12/14/16 08:00 18 12/14/16 07:50 106/67 97 12/14/16 04:50 110/62 95 12/14/16 00:50 130/77 99 12/13/16 22:23 117/80 12/13/16 20:57 117/80 98 12/13/16 20:20 20 12/13/16 20:09 20 98 12/13/16 20:06 12/13/16 16:30 139/82 98 - Physical Examination General: No Apparent Distress HEENT: Positive: PERRL Neck: Positive: trachea midline Cardiac: Positive: Other (paced) Lungs: Positive: Decreased Breath Sounds Neuro: Positive: Grossly Intact - Labs and Meds Cardiac Enzymes 12/14/16 Range/Units 05:32 AST 16 (5-40) units/L CBC 12/14/16 Range/Units 05:32 WBC 10.4 (4.5-11.0) K/mm3 RBC 4.11 (3.65-5.03) M/mm3 Hgb 12.3 (11.8-15.2) gm/dl Hct 37.2 (35.5-45.6) % Plt Count 180 (140-440) K/mm3 Lymph # 0.6 L (1.2-5.4) K/mm3 Mason # 0.6 (0.0-0.8) K/mm3 Eos # 0.0 (0.0-0.4) K/mm3 Baso # 0.0 (0.0-0.1) K/mm3 Comprehensive Metabolic Panel 12/14/16 Range/Units 05:32 Sodium 137 (137-145) mmol/L Potassium 3.2 L (3.6-5.0) mmol/L Chloride 97.4 L (98-107) mmol/L Carbon Dioxide 20 L (22-30) mmol/L BUN 24 H (9-20) mg/dL Creatinine 1.5 (0.8-1.5) mg/dL Glucose 244 H (75-100) mg/dL Calcium 8.7 (8.4-10.2) mg/dL AST 16 (5-40) units/L ALT 15 (7-56) units/L Alkaline Phosphatase 65 (35-129) units/L Total Protein 6.4 (6.3-8.2) g/dL Albumin 3.7 L (3.9-5) g/dL
--- NOTE | 2016-12-14 14:08 | Discharge Summary ---
Providers - Providers Date of Admission: 12/11/16 00:36 Date of discharge: 12/14/16 Attending physician: MERLENE FLEMING 12/11/16 Consult to Cardiac Rehabilitation [CONS] Routine Reason For Exam: Phase I 12/11/16 04:49 Consult to Physician [CONS] Routine Consulting Provider: LILLIANA JAMES Reason For Exam: copd exacerbation Place consult to:: Boris Notified:: Zully Phone number called:: [phone] Was contact made?: Yes If yes, spoke with:: Silvia Time called:: 10:30 12/11/16 04:50 Consult to Physician [CONS] Routine Consulting Provider: GIORGI WEBB Reason For Exam: CHF exacerbation Place consult to:: Dr. Mary Jane Webb Notified:: Jed JACK Was contact made?: Yes If yes, spoke with:: Mariza Time called:: 09:30 12/14/16 12:35 Consult to Physician [CONS] Routine Consulting Provider: KEVIN SHERIFF Reason For Exam: COPD Place consult to:: cody Notified:: n Primary care physician: [facility] Hospitalization Condition: Stable Pertinent studies: Chest x-ray showed no acute cardiopulmonary process, pulmonary perfusion scan showed low probability for pulmonary embolus Procedures: None Disposition: DISCHARGED TO HOME OR SELFCARE Core Measure Documentation - Palliative Care Palliative Care/ Comfort Measures: Not Applicable - Core Measures Any of the following diagnoses?: none Exam - Constitutional Vitals: Temp Pulse Resp BP Pulse Ox 97.8 F 70 18 122/71 96 12/14/16 11:40 12/14/16 13:55 12/14/16 13:55 12/14/16 11:40 12/14/16 11:40 General appearance: Present: no acute distress, well-nourished - EENT Eyes: Present: PERRL ENT: hearing intact, clear oral mucosa - Neck Neck: Present: supple, normal ROM - Respiratory Respiratory effort: normal Respiratory: bilateral: CTA - Cardiovascular Heart Sounds: Present: S1 & S2. Absent: rub, click - Extremities Extremities: pulses symmetrical, No edema Peripheral Pulses: within normal limits - Abdominal General gastrointestinal: Present: soft, non-tender, non-distended, normal bowel sounds Male genitourinary: Present: normal - Integumentary Integumentary: Present: clear, warm, dry - Musculoskeletal Musculoskeletal: gait normal, strength equal bilaterally - Psychiatric Psychiatric: appropriate mood/affect, intact judgment & insight - Neurologic Neurologic: CNII-XII intact, moves all extremities Plan Activity: advance as tolerated Diet: low fat, low cholesterol, low salt, diabetic, low carbohydrate Special Instructions: record daily BP diary, record blood sugar diary Follow up with: PRIMARY CARE,MD [Primary Care Provider] - 7 Days Prescriptions: Amiodarone 200 mg PO DAILY #30 Aspirin [Aspirin TAB] 325 mg PO QDAY #30 tablet Carvedilol [Coreg] 25 mg PO BID #60 tablet glipiZIDE [Glucotrol] 10 mg PO QDAY #30 tablet ISOSORBIDE MONOnitrate [Imdur ER] 30 mg PO DAILY #30 tablet Lisinopril [Zestril TAB] 20 mg PO BID #60 tablet Potassium Chloride [Klor-Con] 20 meq PO DAILY #30 packet Spironolactone [Aldactone] 25 mg PO BID #30 tablet Torsemide [Demadex] 100 mg PO QDAY #30 tablet
[2016-12-14] MEDS: ZITHROMAX 500 MG in NACL 0.9% 250ML 250 ML IV SCH (17:54)
[2016-12-14 21:01] VITALS: BP 141/79
[2016-12-14] MEDS: LEVEMIR SUB-Q SCH (23:02)
== END 2016-12-14 23:42 | disposition home or self-care (01) | DRG 291 ==
LOC: ED 13:54 → 4A 12-11 00:36
PROVIDERS: ADMIT Internal Medicine; ATTEND Family Medicine
PROC: 4A033R1 Measurement of Arterial Saturation, Peripheral, Percutaneous Approach (ICD-10-PCS; principal; 2016-12-11)
DX: I13.0 Hypertensive heart and chronic kidney disease with heart failure and stage 1 through stage 4 chronic kidney disease, or unspecified chronic kidney disease (principal); I50.23 Acute on chronic systolic (congestive) heart failure; J44.1 Chronic obstructive pulmonary disease with (acute) exacerbation; N17.9 Acute kidney failure, unspecified; I42.0 Dilated cardiomyopathy; Z68.43 Body mass index [BMI] 50.0-59.9, adult; E66.01 Morbid (severe) obesity due to excess calories; J45.909 Unspecified asthma, uncomplicated; E11.22 Type 2 diabetes mellitus with diabetic chronic kidney disease; N18.9 Chronic kidney disease, unspecified; G47.33 Obstructive sleep apnea (adult) (pediatric); E87.6 Hypokalemia; M10.9 Gout, unspecified; E80.6 Other disorders of bilirubin metabolism; Z95.810 Presence of automatic (implantable) cardiac defibrillator; Z88.8 Allergy status to other drugs, medicaments and biological substances; Z90.49 Acquired absence of other specified parts of digestive tract; Z91.018 Allergy to other foods
CPT/HCPCS: 36415; 36600; 71010; 71020; 78582; 80048; 80053; 80061; 82550; 82553; 82803; 82962; 83036; 83735; 84484; 85025; 93005; 93010; 94640; 96365; 96375; A9540; A9558; J0456; J1650; J1815; J1818; J1956; J2930; J3475; J7050

== ENCOUNTER 2017-01-30 18:37 | Inpatient (IN) | payer MEDICAID ==
[2017-01-30] MEDS ORDERED: NITRO-BID 2% TP ONE (20:22)
[2017-01-30] MEDS ORDERED: ATROVENT IH ONE (20:22)
[2017-01-30] MEDS ORDERED: PROVENTIL IH ONE (20:22)
[2017-01-30] MEDS ORDERED: MAGNESIUM SULFATE 2GM/50ML 2 GM/50 ML BAG IV ONE (20:23)
[2017-01-30] MEDS ORDERED: BABY ASPIRIN PO ONE (20:25)
--- NOTE | 2017-01-30 20:25 | Emergency Department Report ---
ED General Adult HPI - General Chief complaint: Dyspnea/Respdistress Stated complaint: DIFFICULTY BREATHING Time Seen by Provider: 01/30/17 20:13 Source: patient, EMS (ems notes not available at time of chart dictation), RN notes reviewed, old records reviewed Mode of arrival: Stretcher Limitations: No Limitations - History of Present Illness Initial comments: This is a 46-year-old male. I have evaluated him in the past. Cardiology: Dr Frausto Past medical history: Dilated nonischemic cardiomyopathy, [employer] AICD, ejection fraction of 10-15%, history of ventricular tachycardia, ventricular fibrillation, currently on amiodarone for suppression. Also has a history of COPD, hypertension, obesity, obstructive sleep apnea the patient presents to the ER today complaining of cough, wheezing, chest tightness , shortness of breath. Symptoms started over the weekend. He reports a trip to [address], which is approximately 2 hours away. He denies dietary indiscretions , and endorses an unintentional 8 pound weight gain. He is coughing, wheezing, having mucus production. He is also experiencing some central chest pain, and epigastric abdominal pain. The pain is sharp, increases with palpation, decreases with rest. Patient reports that his shortness of breath is constant, worsens with physical exertion. There is no leg pain. There is no leg swelling. No recent hospital admissions within the past 4 weeks, no recent trips greater than 4 hours. -: Gradual Location: chest, abdomen Severity scale (0 -10): 0 Quality: aching Consistency: constant Improves with: rest Worsens with: movement Associated Symptoms: chest pain, cough, shortness of breath, weakness - Related Data Home Medications Medication Instructions Recorded Confirmed Last Taken Ferrous Sulfate [Feosol 325 MG tab] 325 mg PO BID 05/19/15 01/30/17 1 Day Ago Allopurinol [Zyloprim] 100 mg PO BID 08/31/16 01/30/17 1 Day Ago Magnesium Oxide 400 mg PO DAILY 08/31/16 01/30/17 1 Day Ago Previous Rx's Medication Instructions Recorded Last Taken Type Amiodarone 200 mg PO DAILY #30 12/14/16 1 Day Ago Rx Aspirin [Aspirin TAB] 325 mg PO QDAY #30 tablet 12/14/16 1 Day Ago Rx Carvedilol [Coreg] 25 mg PO BID #60 tablet 12/14/16 1 Day Ago Rx ISOSORBIDE MONOnitrate [Imdur ER] 30 mg PO DAILY #30 tablet 12/14/16 1 Day Ago Rx Lisinopril [Zestril TAB] 20 mg PO BID #60 tablet 12/14/16 1 Day Ago Rx Potassium Chloride [Klor-Con] 20 meq PO DAILY #30 packet 12/14/16 1 Day Ago Rx Spironolactone [Aldactone] 25 mg PO BID #30 tablet 12/14/16 1 Day Ago Rx Torsemide [Demadex] 100 mg PO QDAY #30 tablet 12/14/16 1 Day Ago Rx glipiZIDE [Glucotrol] 10 mg PO QDAY #30 tablet 12/14/16 1 Day Ago Rx Allergies Allergy/AdvReac Type Severity Reaction Status Date / Time cephalexin monohydrate Allergy Hives Verified 03/09/15 22:20 [From Keflex] lidocaine Allergy Hives Verified 03/09/15 22:20 mushrooms Allergy Swelling Uncoded 06/26/15 12:23 ED Review of Systems ROS: Stated complaint: DIFFICULTY BREATHING Other details as noted in HPI Constitutional: malaise, weakness Eyes: denies: vision change ENT: denies: epistaxis Respiratory: shortness of breath Cardiovascular: chest pain Gastrointestinal: abdominal pain Genitourinary: denies: urgency Musculoskeletal: arthralgia, myalgia Skin: denies: lesions Neurological: weakness Psychiatric: anxiety ED Past Medical Hx - Past Medical History Hx Hypertension: Yes Hx Heart Attack/AMI: No Hx Congestive Heart Failure: Yes (dilated cardiomyopathy EF 10-15% severe LA dilatation) Hx Diabetes: Yes Hx Renal Disease: Yes (insufficiency) Hx Asthma: Yes Hx COPD: Yes Hx HIV: No Additional medical history: copd; sleep apnea - Surgical History Hx Pacemaker: Yes Hx Internal Defibrillator: Yes Hx Cholecystectomy: Yes Additional Surgical History: defibulator - Social History Smoking Status: Never Smoker Substance Use Type: None - Medications Home Medications: Home Medications Medication Instructions Recorded Confirmed Last Taken Type Ferrous Sulfate [Feosol 325 MG tab] 325 mg PO BID 05/19/15 01/30/17 1 Day Ago History Allopurinol [Zyloprim] 100 mg PO BID 08/31/16 01/30/17 1 Day Ago History Magnesium Oxide 400 mg PO DAILY 08/31/16 01/30/17 1 Day Ago History Amiodarone 200 mg PO DAILY #30 12/14/16 01/30/17 1 Day Ago Rx Aspirin [Aspirin TAB] 325 mg PO QDAY #30 tablet 12/14/16 01/30/17 1 Day Ago Rx Carvedilol [Coreg] 25 mg PO BID #60 tablet 12/14/16 01/30/17 1 Day Ago Rx ISOSORBIDE MONOnitrate [Imdur ER] 30 mg PO DAILY #30 tablet 12/14/16 01/30/17 1 Day Ago Rx Lisinopril [Zestril TAB] 20 mg PO BID #60 tablet 12/14/16 01/30/17 1 Day Ago Rx Potassium Chloride [Klor-Con] 20 meq PO DAILY #30 packet 12/14/16 01/30/17 1 Day Ago Rx Spironolactone [Aldactone] 25 mg PO BID #30 tablet 12/14/16 01/30/17 1 Day Ago Rx Torsemide [Demadex] 100 mg PO QDAY #30 tablet 12/14/16 01/30/17 1 Day Ago Rx glipiZIDE [Glucotrol] 10 mg PO QDAY #30 tablet 12/14/16 01/30/17 1 Day Ago Rx ED Physical Exam - General Limitations: Physical Limitation General appearance: obese - Head Head exam: Present: atraumatic, normocephalic - Eye Eye exam: Present: normal appearance, EOMI. Absent: nystagmus - ENT ENT exam: Present: normal exam, normal orophraynx, mucous membranes moist, normal external ear exam - Neck Neck exam: Present: normal inspection. Absent: tenderness - Respiratory Respiratory exam: Present: respiratory distress, wheezes, rales, rhonchi - Cardiovascular Cardiovascular Exam: Present: regular rate, normal rhythm, normal heart sounds. Absent: bradycardia, tachycardia, irregular rhythm, systolic murmur, diastolic murmur, rubs, gallop - GI/Abdominal GI/Abdominal exam: Present: soft, distended, normal bowel sounds, other ( abdominal anasarca is noted). Absent: tenderness, guarding, rebound, rigid, pulsatile mass - Rectal Rectal exam: Present: deferred - Extremities Exam Extremities exam: Present: normal inspection, full ROM, normal capillary refill , pedal edema. Absent: calf tenderness - Back Exam Back exam: Present: normal inspection, full ROM. Absent: tenderness, CVA tenderness (R), CVA tenderness (L), muscle spasm, paraspinal tenderness, vertebral tenderness - Neurological Exam Neurological exam: Present: alert, other (Extraocular movements intact. Tongue midline. No facial droop. Facial sensation intact to light touch in the V1, V2 , V3 distribution bilaterally. 5 and 5 strength in 4 extremities.. Sensation is intact to light touch in 4 extremities.). Absent: motor sensory deficit - Psychiatric Psychiatric exam: Present: normal affect, normal mood - Skin Skin exam: Present: warm, dry, intact, normal color. Absent: rash ED Course Vital Signs 01/30/17 01/30/17 01/30/17 19:00 19:21 20:30 Temperature 98.7 F 98.7 F Pulse Rate 70 70 68 Pulse Rate [ Bilateral Throughout] Respiratory 18 25 H Rate Respiratory Rate [Bilateral Throughout] Blood Pressure 121/75 132/78 Blood Pressure 121/75 [Left] O2 Sat by Pulse 98 98 99 Oximetry 01/30/17 01/30/17 01/30/17 20:49 20:52 21:50 Temperature Pulse Rate 72 Pulse Rate [ 95 H Bilateral Throughout] Respiratory Rate Respiratory 20 Rate [Bilateral Throughout] Blood Pressure 122/74 Blood Pressure [Left] O2 Sat by Pulse 99 Oximetry 01/30/17 01/30/17 01/30/17 23:44 23:49 23:50 Temperature Pulse Rate Pulse Rate [ Bilateral Throughout] Respiratory 18 Rate Respiratory Rate [Bilateral Throughout] Blood Pressure Blood Pressure [Left] O2 Sat by Pulse 99 99 Oximetry 01/30/17 01/30/17 01/30/17 23:52 23:54 23:56 Temperature Pulse Rate Pulse Rate [ Bilateral Throughout] Respiratory Rate Respiratory Rate [Bilateral Throughout] Blood Pressure Blood Pressure [Left] O2 Sat by Pulse 99 99 100 Oximetry 01/30/17 01/31/17 01/31/17 23:58 00:00 00:01 Temperature Pulse Rate Pulse Rate [ Bilateral Throughout] Respiratory Rate Respiratory Rate [Bilateral Throughout] Blood Pressure 120/73 120/73 Blood Pressure [Left] O2 Sat by Pulse 99 100 100 Oximetry 01/31/17 01/31/17 01/31/17 00:04 00:06 00:08 Temperature Pulse Rate Pulse Rate [ Bilateral Throughout] Respiratory Rate Respiratory Rate [Bilateral Throughout] Blood Pressure 120/73 120/73 120/73 Blood Pressure [Left] O2 Sat by Pulse 100 99 99 Oximetry 01/31/17 01/31/17 01/31/17 00:10 00:12 00:14 Temperature Pulse Rate Pulse Rate [ Bilateral Throughout] Respiratory Rate Respiratory Rate [Bilateral Throughout] Blood Pressure 120/73 120/73 120/73 Blood Pressure [Left] O2 Sat by Pulse 99 100 100 Oximetry 01/31/17 01/31/17 01/31/17 00:16 00:18 00:20 Temperature Pulse Rate Pulse Rate [ Bilateral Throughout] Respiratory Rate Respiratory Rate [Bilateral Throughout] Blood Pressure 120/73 120/73 120/73 Blood Pressure [Left] O2 Sat by Pulse 100 99 100 Oximetry 01/31/17 01/31/17 01/31/17 00:22 00:24 00:26 Temperature Pulse Rate Pulse Rate [ Bilateral Throughout] Respiratory Rate Respiratory Rate [Bilateral Throughout] Blood Pressure 120/73 120/73 120/73 Blood Pressure [Left] O2 Sat by Pulse 100 99 99 Oximetry 01/31/17 01/31/17 01/31/17 00:28 00:30 00:39 Temperature 98.9 F Pulse Rate 60 Pulse Rate [ Bilateral Throughout] Respiratory 20 Rate Respiratory Rate [Bilateral Throughout] Blood Pressure 120/73 120/73 Blood Pressure 120/73 [Left] O2 Sat by Pulse 99 99 100 Oximetry 01/31/17 01:19 Temperature Pulse Rate 60 Pulse Rate [ Bilateral Throughout] Respiratory 20 Rate Respiratory Rate [Bilateral Throughout] Blood Pressure 120/73 Blood Pressure [Left] O2 Sat by Pulse 98 Oximetry - Reevaluation(s) Reevaluation #1: 01/30/17 21:16 differential diagnosis: Congestive heart failure, COPD, obstructive sleep apnea, pulmonary hypertension, obesity hypoventilation syndrome, dilated cardiomyopathy, acute coronary syndrome Assessment and plan: 46-year-old male with wheezing, cough, chest pain, abdominal pain, unintentional weight gain. Most likely multifactorial, likely COPD and CHF exacerbation. Low risk by well's criteria, perc negative. He will be treated empirically with albuterol, Atrovent, steroids, BiPAP therapy. He will be admitted. Reevaluation #2: 01/30/17 21:58 He is improved, still having pain. As needed nitroglycerin and toradol ordered. Hospital physician, Dr. Webb accepts the patient to her service. ED Medical Decision Making - Lab Data Result diagrams: 01/31/17 03:08 01/31/17 03:08 Vital Signs 01/30/17 01/30/17 01/30/17 19:00 19:21 20:49 Temperature 98.7 F 98.7 F Pulse Rate 70 70 72 Respiratory 18 Rate Blood Pressure 121/75 122/74 Blood Pressure 121/75 [Left] O2 Sat by Pulse 98 98 Oximetry 01/30/17 20:52 Temperature Pulse Rate Respiratory Rate Blood Pressure Blood Pressure [Left] O2 Sat by Pulse 99 Oximetry Labs 01/30/17 01/30/17 20:41 20:41 WBC 11.1 H RBC 4.22 Hgb 12.2 Hct 37.8 MCV 90 MCH 29 MCHC 32 RDW 17.2 H Plt Count 200 Lymph % (Auto) 20.0 [place]son % (Auto) 10.3 H Eos % (Auto) 3.1 Baso % (Auto) 0.9 Lymph # 2.2 [place]son # 1.1 H Eos # 0.3 Baso # 0.1 Seg Neutrophils % 65.7 Seg Neutrophils # 7.3 PT 15.6 H INR 1.25 H APTT 25.6 - EKG Data -: EKG Interpreted by Me - EKG Data 01/30/17 21:15 EKG demonstrates a ventricular paced rhythm, left axis deviation, 70 bpm, good capture, appears morphologically unchanged from prior EKG from 12/11/2016 - Radiology Data Radiology results: image reviewed interpreted by me: X-ray of the chest demonstrates cardiomegaly, pulmonary vascular congestion, lower lobe atelectasis, left ICD, Critical Care Time: Yes Critical care time in (mins) excluding proc time.: 35 Critical care attestation.: If time is entered above; I have spent that time in minutes in the direct care of this critically ill patient, excluding procedure time. Critical Care Time: Critical care time includes multiple bedside evaluations, interpretation of laboratory studies, radiology studies, time spent managing a patient with multifactorial shortness of breath requiring positive pressure ventilation. This does not include procedure time. ED Disposition Clinical Impression: Acute exacerbation of chronic obstructive pulmonary disease (COPD), Chest pain , Dilated cardiomyopathy Disposition: OP ADMITTED IP TO THIS HOSP Is pt being admited?: Yes Does the pt Need Aspirin: Yes Condition: Good
--- NOTE | 2017-01-30 20:32 | Admit Criteria Form ---
Admission Criteria Documentation: RESPIRATORY FAILURE GRG Clinical Indications for Admission to Inpatient Care (Place 'X' for any and all applicable criteria): Hospital admission is needed for appropriate care of the patient because of acute respiratory failure or insufficiency as indicated by ANY ONE of the following(1)(2)(3)(4)(5)(6)(7)(8): [X ]I. Mechanical ventilation needed (acute invasive or noninvasive) [ ]II. Severe ventilation deficit as indicated by ANY ONE of the following (9) [ ]a) Respiratory acidosis (pH less than 7.32 and partial pressure of carbon dioxide greater than 40 mm Hg (5.3 kPa)) [ ]b) Partial pressure of carbon dioxide greater than 44 mm Hg (5.9 kPa ) (new) [ ]c) Airflow measurements less than 25% of predicted (eg, peak expiratory flow rate less than 100 L/minute) [ ]d) Forced vital capacity less than 15 mL/kg of ideal body weight, or 50% decrease in vital capacity from baseline [ ]III. Noncardiac pulmonary edema not resolving with rapid emergency treatment (8) [ ]IV. Severe respiratory distress as indicated by ANY ONE of the following: [ ]a) Severe tachypnea (respiratory rate greater than 30, greater than 45 for 6-month-old, greater than 60 for ) [ ]b) Severe hypoxemia (partial pressure of oxygen less than 50 mm Hg ( 6.7 kPa) on greater than 50% oxygen or partial pressure of oxygen to FIO2 ratio less than 200) [ ]c) Mental status deterioration from respiratory disease [ ]V. Airway obstruction or inadequate protection [A](10)(11) The original [employer] content created by [employer] has been revised. The portions of the content which have been revised are identified through the use of italic text or in bold, and [employer] has neither reviewed nor approved the modified material. All other unmodified content is copyright [employer]. Please see references footnoted in the original [employer] edition 2016 Admission Criteria Met: Yes
[2017-01-30 21:02] LABS: Basophils % (Auto) 0.9 % (0.0-1.8); Eosinophils % (Auto) 3.1 % (0.0-4.3); Hematocrit 37.8 % (35.5-45.6); Hemoglobin 12.2 gm/dl (11.8-15.2); Mean Corpuscular HGB Conc 32 % (32-34); Mean Corpuscular Hemoglobin 29 pg (28-32); Mean Corpuscular Volume 90 fl (84-94); Platelet Count 200 K/mm3 (140-440); Red Blood Count 4.22 M/mm3 (3.65-5.03); Red Cell Distribution Width 17.2 % (13.2-15.2); White Blood Count 11.1 K/mm3 (4.5-11.0)
[2017-01-30 21:12] LABS: INR 1.25 (0.87-1.13)
[2017-01-30 21:13] LABS: Partial Thromboplastin Time 25.6 Sec. (24.2-36.6)
[2017-01-30 21:38] LABS: Alanine Aminotransferase 11 units/L (7-56); Albumin 3.9 g/dL (3.9-5); Albumin/Globulin Ratio 1.2 %; Alkaline Phosphatase 63 units/L (35-129); Anion Gap 17 mmol/L; BUN/Creatinine Ratio 7.69; Bilirubin,Total 2.3 mg/dL (0.1-1.2); Blood Urea Nitrogen 10 mg/dL (9-20); Carbon Dioxide 29 mmol/L (22-30); Chloride 98.4 mmol/L (98-107); Glucose 83 mg/dL (75-100); Magnesium 1.8 mg/dL (1.7-2.3); Potassium 3.5 mmol/L (3.6-5.0); Sodium 141 mmol/L (137-145); Total Protein 7.1 g/dL (6.3-8.2)
[2017-01-30] MEDS ORDERED: NITROSTAT SL PRN (21:57)
[2017-01-30] MEDS ORDERED: TORADOL IV ONE (21:57)
--- NOTE | 2017-01-30 23:27 | XRay Report ---
FINAL REPORT EXAM: XR CHEST 1V AP HISTORY: Dyspnea TECHNIQUE: AP portable view of the chest. PRIORS: 10/15/2015 FINDINGS: There is a left-sided AICD that appears adequately positioned. The cardiac silhouette is moderately enlarged without change. The lungs are clear. The bones and soft tissues are unremarkable. IMPRESSION: Stable cardiomegaly. No acute findings.
[2017-01-30] MEDS ORDERED: MILK OF MAGNESIA PO PRN (23:43)
[2017-01-30] MEDS ORDERED: DULCOLAX PR PRN (23:43)
[2017-01-30] MEDS ORDERED: D50W (25GM) IV PRN (23:43)
[2017-01-30] MEDS ORDERED: ZOFRAN IV PRN (23:43)
[2017-01-30] MEDS ORDERED: TYLENOL PO PRN (23:43)
--- NOTE | 2017-01-31 01:21 | History and Physical Report ---
History of Present Illness Date of examination: 01/30/17 Date of admission: 01/30/17 23:43 History of present illness: 45 -year-old man with a history of hypertension, diabetes, gout, BRIT[place], COPD, CHF comes to the emergency room complaining of shortness of breath, wheezing, cough productive of white phlegm. Also complaining of squeezing sensation in his chest in the epigastric area , unable to say how long it lasts for, started 3 days ago, intensity 5/10, no radiation any cannot identify exacerbating or relieving factors. Patient denies abdominal pain, hematochezia, dysuria, frequency, focal weakness , dysarthria, fever chills, polydipsia polyuria, hot or cold intolerance, easy bruisability, or rash or bleeding from mucosal membrane, rhinorrhea, epistaxis, earache, tinnitus, blurry vision, eye discharge, anxiety, depression. Other review of systems negative PAST SURGICAL HISTORY:AICD, hip replacement, gall bladder SOCIAL HISTORY: Denies alcohol, tobacco, drugs FAMILY HISTORY:cad, DM Medications and Allergies Allergies Allergy/AdvReac Type Severity Reaction Status Date / Time cephalexin monohydrate Allergy Hives Verified 03/09/15 22:20 [From Keflex] lidocaine Allergy Hives Verified 03/09/15 22:20 mushrooms Allergy Swelling Uncoded 06/26/15 12:23 Home Medications Medication Instructions Recorded Confirmed Last Taken Type Ferrous Sulfate [Feosol 325 MG tab] 325 mg PO BID 05/19/15 01/30/17 1 Day Ago History Allopurinol [Zyloprim] 100 mg PO BID 08/31/16 01/30/17 1 Day Ago History Magnesium Oxide 400 mg PO DAILY 08/31/16 01/30/17 1 Day Ago History Amiodarone 200 mg PO DAILY #30 12/14/16 01/30/17 1 Day Ago Rx Aspirin [Aspirin TAB] 325 mg PO QDAY #30 tablet 12/14/16 01/30/17 1 Day Ago Rx Carvedilol [Coreg] 25 mg PO BID #60 tablet 12/14/16 01/30/17 1 Day Ago Rx ISOSORBIDE MONOnitrate [Imdur ER] 30 mg PO DAILY #30 tablet 12/14/16 01/30/17 1 Day Ago Rx Lisinopril [Zestril TAB] 20 mg PO BID #60 tablet 12/14/16 01/30/17 1 Day Ago Rx Potassium Chloride [Klor-Con] 20 meq PO DAILY #30 packet 12/14/16 01/30/17 1 Day Ago Rx Spironolactone [Aldactone] 25 mg PO BID #30 tablet 12/14/16 01/30/17 1 Day Ago Rx Torsemide [Demadex] 100 mg PO QDAY #30 tablet 12/14/16 01/30/17 1 Day Ago Rx glipiZIDE [Glucotrol] 10 mg PO QDAY #30 tablet 12/14/16 01/30/17 1 Day Ago Rx Active Meds: Active Medications Acetaminophen (Tylenol) 650 mg PO Q4H PRN PRN Reason: Pain MILD(1-3)/Fever >100.5/KNIGHT Albuterol/Ipratropium (Duoneb 0.5 Mg-3 Mg/3 Ml Soln) 1 ampul IH Q6HRT ROBERT Bisacodyl (Dulcolax) 10 mg [place] QDAY PRN PRN Reason: Constipation unrelieved by MOM Dextrose (D50w (25gm)) 50 ml IV PRN PRN PRN Reason: Hypoglycemia Enoxaparin Sodium (Lovenox) 40 mg SUB-Q QDAY ROBERT Insulin Aspart (Novolog) 0 units SUB-Q ACHS ROBERT PRN Reason: Protocol Magnesium Hydroxide (Milk Of Magnesia) 30 ml PO Q4H PRN PRN Reason: Constipation Methylprednisolone Sodium Succinate (Solu-Medrol) 125 mg IV Q6H ROBERT Nitroglycerin (Nitrostat) 0.4 mg SL .Q5MIN PRN PRN Reason: Chest Pain Ondansetron HCl (Zofran) 4 mg IV Q8H PRN PRN Reason: N/V unrelieved by Reglan Exam - Physical Exam Narrative exam: Gen. appearance: Patient lying in bed, no apparent distress HEENT: Normocephalic, atraumatic, pupils equally round and reactive to light, extraocular movement intact, and no sclericterus,. No JVD or thyromegaly or nodule,neck supple, no carotid bruit ,mucous membranes moist, no exudate or erythema Heart: S1, S2, regular rate and rhythm Lungs: wheezing bilaterally, breathing comfortable Abdomen: Positive bowel sounds, nontender, nondistended, no organomegaly Extremity: No edema, cyanosis, clubbing Skin: No rash, nodules, warm, dry Neuro: Oriented 3, cranial nerves II-12 intact, speech is fluent, motor and sensory intact - Constitutional Vitals: Temp Pulse Resp BP Pulse Ox 98.9 F 60 20 120/73 100 01/31/17 00:39 01/31/17 00:39 01/31/17 00:39 01/31/17 00:39 01/31/17 00:39 Results - Labs CBC & Chem 7: 01/30/17 20:41 01/30/17 20:41 - Imaging and Cardiology EKG: image reviewed Chest x-ray: report reviewed Assessment and Plan Acute on chronic Respiratory Failure COPD exacerbation, acute on chronic Chest Pain Hypertension Diabetes Morbid obesity Admit to medicine Start high dose IV steroids, nebulizer treatments, continue BIPAP Check cardiac enzymes, consult cardiology Check fingersticks and start insulin sliding scale Continue appropiate outpatient medications Start DVT prophylaxis
[2017-01-31] MEDS: DUONEB 0.5 MG-3 MG/3 ML SOLN IH SCH ×4 (01:49→20:14)
[2017-01-31] MEDS ORDERED: DUONEB 0.5 MG-3 MG/3 ML SOLN IH SCH (02:00)
[2017-01-31 04:16] LABS: Hemoglobin 12.7 gm/dl (11.8-15.2); Mean Corpuscular HGB Conc 33 % (32-34); Mean Corpuscular Hemoglobin 30 pg (28-32); Mean Corpuscular Volume 89 fl (84-94); Platelet Count 180 K/mm3 (140-440); Red Blood Count 4.26 M/mm3 (3.65-5.03); Red Cell Distribution Width 17.1 % (13.2-15.2); White Blood Count 9.6 K/mm3 (4.5-11.0)
[2017-01-31 04:27] LABS: BUN/Creatinine Ratio 7.77; Calcium 9.5 mg/dL (8.4-10.2); Chloride 94.2 mmol/L (98-107); Potassium 3.5 mmol/L (3.6-5.0)
[2017-01-31 04:29] LABS: Creatine Kinase 149 units/L (55-170)
[2017-01-31 06:01] LABS: Basophils % (Manual) 0 % (0.0-1.8); Blastocytes % (Manual) 0 %
[2017-01-31 06:02] LABS: Anisocytosis Few; Diff Status Complete; Eosinophils % (Manual) 0 % (0.0-4.3); Rouleaux Few
--- NOTE | 2017-01-31 09:46 | Consultation ---
History of Present Illness Consult date: 01/31/17 Consult reason: congestive heart failure History of present illness: Patient is presenting with worsening shortness of breath, wheezing and productive cough. He has atypical lancinating right sided chest pain lasting only sec in duration. Patient admits dietary indiscretions as outpatient recently. He ate at a [employer] grill and has noticed ~ 8 lbs weight gain. He adds that torsemide has not been giving him the same diuretic response as before so he did have to double on it recently. He also admits that he recently has been under a lot of pressure after knowing that he has a complex renal cyst. He is supposed to get a CT done as outpatient Past History Past Medical History: COPD, diabetes, heart failure, hypertension Past Surgical History: cholecystectomy (pacemaker insertion) Social history: other (Former smoker) Family history: no significant family history Medications and Allergies Allergies Allergy/AdvReac Type Severity Reaction Status Date / Time cephalexin monohydrate Allergy Hives Verified 03/09/15 22:20 [From Keflex] lidocaine Allergy Hives Verified 03/09/15 22:20 mushrooms Allergy Swelling Uncoded 06/26/15 12:23 Home Medications Medication Instructions Recorded Confirmed Last Taken Type Ferrous Sulfate [Feosol 325 MG tab] 325 mg PO BID 05/19/15 01/30/17 1 Day Ago History Allopurinol [Zyloprim] 100 mg PO BID 08/31/16 01/30/17 1 Day Ago History Magnesium Oxide 400 mg PO DAILY 08/31/16 01/30/17 1 Day Ago History Amiodarone 200 mg PO DAILY #30 12/14/16 01/30/17 1 Day Ago Rx Aspirin [Aspirin TAB] 325 mg PO QDAY #30 tablet 12/14/16 01/30/17 1 Day Ago Rx Carvedilol [Coreg] 25 mg PO BID #60 tablet 12/14/16 01/30/17 1 Day Ago Rx ISOSORBIDE MONOnitrate [Imdur ER] 30 mg PO DAILY #30 tablet 12/14/16 01/30/17 1 Day Ago Rx Lisinopril [Zestril TAB] 20 mg PO BID #60 tablet 12/14/16 01/30/17 1 Day Ago Rx Potassium Chloride [Klor-Con] 20 meq PO DAILY #30 packet 12/14/16 01/30/17 1 Day Ago Rx Spironolactone [Aldactone] 25 mg PO BID #30 tablet 12/14/16 01/30/17 1 Day Ago Rx Torsemide [Demadex] 100 mg PO QDAY #30 tablet 12/14/16 01/30/17 1 Day Ago Rx glipiZIDE [Glucotrol] 10 mg PO QDAY #30 tablet 12/14/16 01/30/17 1 Day Ago Rx Active Meds: Active Medications Acetaminophen (Tylenol) 650 mg PO Q4H PRN PRN Reason: Pain MILD(1-3)/Fever >100.5/KNIGHT Albuterol/Ipratropium (Duoneb 0.5 Mg-3 Mg/3 Ml Soln) 1 ampul IH Q6HRT [facility] Last Admin: 01/31/17 07:36 Dose: 1 ampul Bisacodyl (Dulcolax) 10 mg [place] QDAY PRN PRN Reason: Constipation unrelieved by MOM Dextrose (D50w (25gm)) 50 ml IV PRN PRN PRN Reason: Hypoglycemia Enoxaparin Sodium (Lovenox) 40 mg SUB-Q QDAY [facility] Insulin Aspart (Novolog) 0 units SUB-Q ACHS [facility] PRN Reason: Protocol Magnesium Hydroxide (Milk Of Magnesia) 30 ml PO Q4H PRN PRN Reason: Constipation Methylprednisolone Sodium Succinate (Solu-Medrol) 125 mg IV Q6H [facility] Last Admin: 01/31/17 02:50 Dose: 125 mg Nitroglycerin (Nitrostat) 0.4 mg SL .Q5MIN PRN PRN Reason: Chest Pain Ondansetron HCl (Zofran) 4 mg IV Q8H PRN PRN Reason: N/V unrelieved by Reglan Review of Systems All systems: negative Physical Examination Vital Signs Temp Pulse BP Pulse Ox 98.7 F 70 121/75 98 01/30/17 19:00 01/30/17 19:00 01/30/17 19:00 01/30/17 19:00 General appearance: no acute distress HEENT: Positive: PERRL Neck: Positive: neck supple Cardiac: Positive: Reg Rate and Rhythm Lungs: Positive: Wheezes Neuro: Positive: Grossly Intact Abdomen: Positive: Soft Extremities: Present: edema Results 01/31/17 03:08 01/31/17 03:08 Cardiac Enzymes 01/31/17 Range/Units 03:08 CK-MB (CK-2) 2.0 (0.0-4.0) ng/mL CBC 01/31/17 Range/Units 03:08 WBC 9.6 (4.5-11.0) K/mm3 RBC 4.26 (3.65-5.03) M/mm3 Hgb 12.7 (11.8-15.2) gm/dl Hct 38.0 (35.5-45.6) % Plt Count 180 (140-440) K/mm3 Comprehensive Metabolic Panel 01/31/17 Range/Units 03:08 Sodium 139 (137-145) mmol/L Potassium 3.5 L (3.6-5.0) mmol/L Chloride 94.2 L (98-107) mmol/L Carbon Dioxide 25 (22-30) mmol/L BUN 14 (9-20) mg/dL Creatinine 1.8 H (0.8-1.5) mg/dL Glucose 281 H (75-100) mg/dL Calcium 9.5 (8.4-10.2) mg/dL EKG interpretations - Telemetry EKG Rhythm: Sinus Rhythm Assessment and Plan 1. Shortness of breath - multifactorial COPD exacerbation Acute systolic heart failure secondary to dietary indiscretions 2. Presence of automatic (implantable) cardiac defibrillator On amiodarone AV paced on ECG 3. Cardiomyopathy Non-Obstructive LVEF 20% s/p [employer]-D 4. Essential (primary) hypertension - controlled Recommendations: Change po demadex to IV lasix 80 mg once a day Monitor renal function closely Continue amiodarone, coreg, Imdur, lisinopril and aldactone Pulmonary management per primary team
[2017-01-31] MEDS: LOVENOX SUB-Q SCH (09:52)
[2017-01-31] MEDS: NOVOLOG SUB-Q SCH ×4 (09:53→22:06)
--- NOTE | 2017-01-31 12:44 | Progress Note ---
Assessment and Plan Assessment and plan: 45 -year-old man with a history of hypertension, diabetes, gout, [place], COPD, CHF comes to the emergency room complaining of shortness of breath, wheezing, cough productive of white phlegm. Also complaining of squeezing sensation in his chest in the epigastric area , unable to say how long it lasts for, started 3 days ago, intensity 5/10, no radiation any cannot identify exacerbating or relieving factors. Patient denies abdominal pain, hematochezia, dysuria, frequency, focal weakness , dysarthria, fever chills, polydipsia polyuria, hot or cold intolerance, easy bruisability, or rash or bleeding from mucosal membrane, rhinorrhea, epistaxis, earache, tinnitus, blurry vision, eye discharge, anxiety, depression. Other review of systems negative 1. COPD exacerbation Continue steroids, nebulizer, oxygen supplementation and antibiotics 2. Chest pain Serial troponins have actually been negative, ACS ruled out, no further workup, cardiology input appreciated 3. Hypertension Continue current medications 4. Diabetes Insulin sliding scale 5. hypokalemia replete PO 6. CHF acute on chronic severe systolic CHF, pulmonary vascular congestion Continue IV Lasix, Cardiology input appreciated, optimize meds 7. BRIT[place] Continue CPAP while asleep. History Interval history: He is complaining of shortness of breath, wheezing and bipedal edema. Hospitalist Physical - Physical exam Narrative exam: General: Moderate respiratory distress HEENT: MMM, EOMI cardiac: S1-S2 heard lungs: Bibasilar crackles, expiratory wheezing throughout abdomen: soft, nontender, nondistended bowel sounds positive extremities: 2+ bipedal edema Skin: no rash or lesion Neuro: no focal deficit Psych: appropriate behavior and mood, cognition intact - Constitutional Vitals: Temp Pulse Resp BP Pulse Ox 97.4 F L 76 22 140/71 96 01/31/17 08:11 01/31/17 09:20 01/31/17 08:11 01/31/17 08:11 01/31/17 08:11 General appearance: Present: no acute distress Results - Labs CBC & Chem 7: 01/31/17 03:08 02/02/17 10:08 Labs: Laboratory Last Values WBC 9.6 K/mm3 (4.5-11.0) 01/31/17 03:08 RBC 4.26 M/mm3 (3.65-5.03) 01/31/17 03:08 Hgb 12.7 gm/dl (11.8-15.2) 01/31/17 03:08 Hct 38.0 % (35.5-45.6) 01/31/17 03:08 MCV 89 fl (84-94) 01/31/17 03:08 MCH 30 pg (28-32) 01/31/17 03:08 MCHC 33 % (32-34) 01/31/17 03:08 RDW 17.1 % (13.2-15.2) H 01/31/17 03:08 Plt Count 180 K/mm3 (140-440) 01/31/17 03:08 Lymph % (Auto) 20.0 % (13.4-35.0) 01/30/17 20:41 [place] % (Auto) 10.3 % (0.0-7.3) H 01/30/17 20:41 Eos % (Auto) 3.1 % (0.0-4.3) 01/30/17 20:41 Baso % (Auto) 0.9 % (0.0-1.8) 01/30/17 20:41 Lymph # 2.2 K/mm3 (1.2-5.4) 01/30/17 20:41 [place] # 1.1 K/mm3 (0.0-0.8) H 01/30/17 20:41 Eos # 0.3 K/mm3 (0.0-0.4) 01/30/17 20:41 Baso # 0.1 K/mm3 (0.0-0.1) 01/30/17 20:41 Add Manual Diff Complete 01/31/17 03:08 Total Counted 100 01/31/17 03:08 Seg Neutrophils % Licensed Prosthetist 01/31/17 03:08 Seg Neuts % (Manual) 92.0 % (40.0-70.0) H 01/31/17 03:08 Band Neutrophils % 0 % 01/31/17 03:08 Lymphocytes % (Manual) 7.0 % (13.4-35.0) L 01/31/17 03:08 Reactive Lymphs % (Man) 0 % 01/31/17 03:08 Monocytes % (Manual) 1.0 % (0.0-7.3) 01/31/17 03:08 Eosinophils % (Manual) 0 % (0.0-4.3) 01/31/17 03:08 Basophils % (Manual) 0 % (0.0-1.8) 01/31/17 03:08 Metamyelocytes % 0 % 01/31/17 03:08 Myelocytes % 0 % 01/31/17 03:08 Promyelocytes % 0 % 01/31/17 03:08 Blast Cells % 0 % 01/31/17 03:08 Nucleated RBC % Not Reportable 01/31/17 03:08 Seg Neutrophils # 7.3 K/mm3 (1.8-7.7) 01/30/17 20:41 Seg Neutrophils # Man 8.8 K/mm3 (1.8-7.7) H 01/31/17 03:08 Band Neutrophils # 0.0 K/mm3 01/31/17 03:08 Lymphocytes # (Manual) 0.7 K/mm3 (1.2-5.4) L 01/31/17 03:08 Abs React Lymphs (Man) 0.0 K/mm3 01/31/17 03:08 Monocytes # (Manual) 0.1 K/mm3 (0.0-0.8) 01/31/17 03:08 Eosinophils # (Manual) 0.0 K/mm3 (0.0-0.4) 01/31/17 03:08 Basophils # (Manual) 0.0 K/mm3 (0.0-0.1) 01/31/17 03:08 Metamyelocytes # 0.0 K/mm3 01/31/17 03:08 Myelocytes # 0.0 K/mm3 01/31/17 03:08 Promyelocytes # 0.0 K/mm3 01/31/17 03:08 Blast Cells # 0.0 K/mm3 01/31/17 03:08 WBC Morphology Not Reportable 01/31/17 03:08 Hypersegmented Neuts Not Reportable 01/31/17 03:08 Hyposegmented Neuts Not Reportable 01/31/17 03:08 Hypogranular Neuts Not Reportable 01/31/17 03:08 Smudge Cells Not Reportable 01/31/17 03:08 Toxic Granulation Not Reportable 01/31/17 03:08 Toxic Vacuolation Not Reportable 01/31/17 03:08 Dohle Bodies Not Reportable 01/31/17 03:08 Pelger-Huet Anomaly Not Reportable 01/31/17 03:08 Kanika Rods Not Reportable 01/31/17 03:08 Platelet Estimate Appears normal 01/31/17 03:08 Clumped Platelets Not Reportable 01/31/17 03:08 Plt Clumps, EDTA Not Reportable 01/31/17 03:08 Large Platelets Not Reportable 01/31/17 03:08 Giant Platelets Not Reportable 01/31/17 03:08 Platelet Satelliting Not Reportable 01/31/17 03:08 Plt Morphology Comment Not Reportable 01/31/17 03:08 RBC Morphology Not Reportable 01/31/17 03:08 Dimorphic RBCs Not Reportable 01/31/17 03:08 Polychromasia Not Reportable 01/31/17 03:08 Hypochromasia Not Reportable 01/31/17 03:08 Poikilocytosis Not Reportable 01/31/17 03:08 Anisocytosis Few 01/31/17 03:08 Microcytosis Not Reportable 01/31/17 03:08 Macrocytosis Not Reportable 01/31/17 03:08 Spherocytes Not Reportable 01/31/17 03:08 Pappenheimer Bodies Not Reportable 01/31/17 03:08 Sickle Cells Not Reportable 01/31/17 03:08 Target Cells Not Reportable 01/31/17 03:08 Tear Drop Cells Not Reportable 01/31/17 03:08 Ovalocytes Not Reportable 01/31/17 03:08 Helmet Cells Not Reportable 01/31/17 03:08 [place] Bodies Not Reportable 01/31/17 03:08 [place] Rings Not Reportable 01/31/17 03:08 [place] Cells Not Reportable 01/31/17 03:08 Bite Cells Not Reportable 01/31/17 03:08 Crenated Cell Not Reportable 01/31/17 03:08 Elliptocytes Not Reportable 01/31/17 03:08 Acanthocytes (Spur) Not Reportable 01/31/17 03:08 Rouleaux Few 01/31/17 03:08 Hemoglobin C Crystals Not Reportable 01/31/17 03:08 Schistocytes Not Reportable 01/31/17 03:08 Malaria parasites Not Reportable 01/31/17 03:08 [place] Bodies Not Reportable 01/31/17 03:08 Hem Pathologist Commnt No 01/31/17 03:08 PT 15.6 Sec. (12.2-14.9) H 01/30/17 20:41 INR 1.25 (0.87-1.13) H 01/30/17 20:41 APTT 25.6 Sec. (24.2-36.6) 01/30/17 20:41 Sodium 139 mmol/L (137-145) 01/31/17 03:08 Potassium 3.5 mmol/L (3.6-5.0) L 01/31/17 03:08 Chloride 94.2 mmol/L (98-107) L 01/31/17 03:08 Carbon Dioxide 25 mmol/L (22-30) 01/31/17 03:08 Anion Gap 23 mmol/L 01/31/17 03:08 BUN 14 mg/dL (9-20) 01/31/17 03:08 Creatinine 1.8 mg/dL (0.8-1.5) H 01/31/17 03:08 Estimated GFR 40 ml/min 01/31/17 03:08 BUN/Creatinine Ratio 7.77 % 01/31/17 03:08 Glucose 281 mg/dL (75-100) H 01/31/17 03:08 POC Glucose 294 (70-105) H 01/31/17 08:08 Calcium 9.5 mg/dL (8.4-10.2) 01/31/17 03:08 Magnesium 1.8 mg/dL (1.7-2.3) 01/30/17 20:41 Total Bilirubin 2.3 mg/dL (0.1-1.2) H 01/30/17 20:41 AST 14 units/L (5-40) 01/30/17 20:41 ALT 11 units/L (7-56) 01/30/17 20:41 Alkaline Phosphatase 63 units/L (35-129) 01/30/17 20:41 Total Creatine Kinase 149 units/L (55-170) 01/31/17 03:08 CK-MB (CK-2) 2.0 ng/mL (0.0-4.0) 01/31/17 03:08 CK-MB (CK-2) Rel Index 1.3 (0-4) 01/31/17 03:08 Troponin T < 0.010 ng/mL (0.00-0.029) 01/31/17 03:08 NT-Pro-B Natriuret Pep 2997 pg/mL (0-450) H 01/30/17 20:41 Total Protein 7.1 g/dL (6.3-8.2) 01/30/17 20:41 Albumin 3.9 g/dL (3.9-5) 01/30/17 20:41 Albumin/Globulin Ratio 1.2 % 01/30/17 20:41
[2017-01-31] MEDS: HALFPRIN EC PO SCH (13:07)
[2017-01-31] MEDS: LASIX IV SCH (13:07)
[2017-01-31] MEDS: ALDACTONE PO SCH (13:07)
[2017-01-31] MEDS: IMDUR PO SCH (13:07)
[2017-01-31] MEDS ORDERED: K-DUR PO ONE (13:46)
[2017-01-31] MEDS: ZESTRIL PO SCH ×2 (15:40→22:06)
[2017-01-31] MEDS: CORDARONE PO SCH (15:40)
[2017-01-31] MEDS: COREG PO SCH ×2 (15:40→22:05)
[2017-02-01] MEDS: DUONEB 0.5 MG-3 MG/3 ML SOLN IH SCH ×4 (01:44→20:27)
[2017-02-01] MEDS ORDERED: DUONEB 0.5 MG-3 MG/3 ML SOLN IH ONE (07:28)
[2017-02-01] MEDS: LOVENOX SUB-Q SCH (10:14)
[2017-02-01] MEDS: HALFPRIN EC PO SCH (10:14)
[2017-02-01] MEDS: IMDUR PO SCH (10:14)
[2017-02-01] MEDS: ALDACTONE PO SCH (10:14)
[2017-02-01] MEDS: CORDARONE PO SCH (10:15)
[2017-02-01] MEDS: COREG PO SCH ×2 (10:15→21:38)
[2017-02-01] MEDS: ZESTRIL PO SCH ×2 (10:15→21:39)
[2017-02-01] MEDS: NOVOLOG SUB-Q SCH ×5 (10:15→21:41)
[2017-02-01] MEDS: LASIX IV SCH (10:15)
--- NOTE | 2017-02-01 10:21 | Progress Note ---
Assessment and Plan Shortness of breath - multifactorial COPD exacerbation Acute systolic heart failure secondary to dietary indiscretions Acute renal failure Presence of automatic (implantable) cardiac defibrillator ([employer]) AV paced on ECG Hx of Dilated non ischemic cardiomyopathy at least moderate MR with an EF 10-15% on echo 10/2016 normal coronaries by [facility] 09/2015 BRIT[place] Obese Hx of VT/VF on amiodarone Hypertension Continue medical management for his acute on chronic systolic heart failure. Monitor labs daily. Subjective Date of service: 02/01/17 Interval history: No cardiac events overnight. Objective Vital Signs Temp Pulse Pulse Pulse Resp Resp BP 02/01/17 08:45 97.5 F L 71 18 02/01/17 08:13 70 02/01/17 07:58 90 16 02/01/17 07:45 86 16 02/01/17 05:58 98.3 F 61 18 02/01/17 00:13 71 02/01/17 00:00 98.1 F 66 18 01/31/17 22:06 77 203/85 01/31/17 22:05 77 203/85 01/31/17 20:30 77 18 01/31/17 20:15 75 18 01/31/17 20:00 97.8 F 72 18 01/31/17 14:05 86 16 01/31/17 13:50 88 16 BP BP Pulse Ox 02/01/17 08:45 135/81 96 02/01/17 08:13 02/01/17 07:58 02/01/17 07:45 02/01/17 05:58 149/73 97 02/01/17 00:13 02/01/17 00:00 144/71 97 01/31/17 22:06 01/31/17 22:05 01/31/17 20:30 01/31/17 20:15 01/31/17 20:00 203/85 98 01/31/17 14:05 01/31/17 13:50 - Physical Examination HEENT: Positive: PERRL Neck: Positive: neck supple Neuro: Positive: Grossly Intact Abdomen: Positive: Soft Extremities: Present: edema - Imaging and Cardiology EKG: image reviewed
[2017-02-01 11:23] LABS: BUN/Creatinine Ratio 16.42; Calcium 9.4 mg/dL (8.4-10.2); Chloride 93.6 mmol/L (98-107); Potassium 3.8 mmol/L (3.6-5.0)
[2017-02-01] MEDS: LEVEMIR SUB-Q SCH (21:40)
--- NOTE | 2017-02-01 22:04 | Progress Note ---
Assessment and Plan Assessment and plan: 45 -year-old man with a history of hypertension, diabetes, gout, BRITTON, COPD, CHF comes to the emergency room complaining of shortness of breath, wheezing, bipedal edema 1. COPD exacerbation Continue steroids, nebulizer, oxygen supplementation and antibiotics 2. Chest pain Serial troponins have actually been negative, ACS ruled out, no further workup, cardiology input appreciated 3. Hypertension Continue current medications 4. Diabetes Insulin sliding scale 5. hypokalemia repleted PO 6. CHF acute on chronic severe systolic CHF, pulmonary vascular congestion Continue IV Lasix, Cardiology input appreciated, optimize meds 7. BRITTON Continue CPAP while asleep. History Interval history: He is complaining of shortness of breath, wheezing and bipedal edema. Hospitalist Physical - Physical exam Narrative exam: General: Moderate respiratory distress HEENT: MMM, EOMI cardiac: S1-S2 heard lungs: Bibasilar crackles, expiratory wheezing throughout abdomen: soft, nontender, nondistended bowel sounds positive extremities: 2+ bipedal edema Skin: no rash or lesion Neuro: no focal deficit Psych: appropriate behavior and mood, cognition intact - Constitutional Vitals: Temp Pulse Resp BP Pulse Ox 97.8 F 85 24 146/89 94 02/01/17 20:00 02/01/17 21:39 02/01/17 20:37 02/01/17 21:39 02/01/17 20:00 General appearance: Present: no acute distress Results - Labs CBC & Chem 7: 01/31/17 03:08 02/02/17 10:08 Labs: Laboratory Last Values WBC 9.6 K/mm3 (4.5-11.0) 01/31/17 03:08 RBC 4.26 M/mm3 (3.65-5.03) 01/31/17 03:08 Hgb 12.7 gm/dl (11.8-15.2) 01/31/17 03:08 Hct 38.0 % (35.5-45.6) 01/31/17 03:08 MCV 89 fl (84-94) 01/31/17 03:08 MCH 30 pg (28-32) 01/31/17 03:08 MCHC 33 % (32-34) 01/31/17 03:08 RDW 17.1 % (13.2-15.2) H 01/31/17 03:08 Plt Count 180 K/mm3 (140-440) 01/31/17 03:08 Lymph % (Auto) 20.0 % (13.4-35.0) 01/30/17 20:41 Rock % (Auto) 10.3 % (0.0-7.3) H 01/30/17 20:41 Eos % (Auto) 3.1 % (0.0-4.3) 01/30/17 20:41 Baso % (Auto) 0.9 % (0.0-1.8) 01/30/17 20:41 Lymph # 2.2 K/mm3 (1.2-5.4) 01/30/17 20:41 Rock # 1.1 K/mm3 (0.0-0.8) H 01/30/17 20:41 Eos # 0.3 K/mm3 (0.0-0.4) 01/30/17 20:41 Baso # 0.1 K/mm3 (0.0-0.1) 01/30/17 20:41 Add Manual Diff Complete 01/31/17 03:08 Total Counted 100 01/31/17 03:08 Seg Neutrophils % Faculty I On Call Medical Assistant 01/31/17 03:08 Seg Neuts % (Manual) 92.0 % (40.0-70.0) H 01/31/17 03:08 Band Neutrophils % 0 % 01/31/17 03:08 Lymphocytes % (Manual) 7.0 % (13.4-35.0) L 01/31/17 03:08 Reactive Lymphs % (Man) 0 % 01/31/17 03:08 Monocytes % (Manual) 1.0 % (0.0-7.3) 01/31/17 03:08 Eosinophils % (Manual) 0 % (0.0-4.3) 01/31/17 03:08 Basophils % (Manual) 0 % (0.0-1.8) 01/31/17 03:08 Metamyelocytes % 0 % 01/31/17 03:08 Myelocytes % 0 % 01/31/17 03:08 Promyelocytes % 0 % 01/31/17 03:08 Blast Cells % 0 % 01/31/17 03:08 Nucleated RBC % Not Reportable 01/31/17 03:08 Seg Neutrophils # 7.3 K/mm3 (1.8-7.7) 01/30/17 20:41 Seg Neutrophils # Man 8.8 K/mm3 (1.8-7.7) H 01/31/17 03:08 Band Neutrophils # 0.0 K/mm3 01/31/17 03:08 Lymphocytes # (Manual) 0.7 K/mm3 (1.2-5.4) L 01/31/17 03:08 Abs React Lymphs (Man) 0.0 K/mm3 01/31/17 03:08 Monocytes # (Manual) 0.1 K/mm3 (0.0-0.8) 01/31/17 03:08 Eosinophils # (Manual) 0.0 K/mm3 (0.0-0.4) 01/31/17 03:08 Basophils # (Manual) 0.0 K/mm3 (0.0-0.1) 01/31/17 03:08 Metamyelocytes # 0.0 K/mm3 01/31/17 03:08 Myelocytes # 0.0 K/mm3 01/31/17 03:08 Promyelocytes # 0.0 K/mm3 01/31/17 03:08 Blast Cells # 0.0 K/mm3 01/31/17 03:08 WBC Morphology Not Reportable 01/31/17 03:08 Hypersegmented Neuts Not Reportable 01/31/17 03:08 Hyposegmented Neuts Not Reportable 01/31/17 03:08 Hypogranular Neuts Not Reportable 01/31/17 03:08 Smudge Cells Not Reportable 01/31/17 03:08 Toxic Granulation Not Reportable 01/31/17 03:08 Toxic Vacuolation Not Reportable 01/31/17 03:08 Dohle Bodies Not Reportable 01/31/17 03:08 Pelger-Huet Anomaly Not Reportable 01/31/17 03:08 Kanika Rods Not Reportable 01/31/17 03:08 Platelet Estimate Appears normal 01/31/17 03:08 Clumped Platelets Not Reportable 01/31/17 03:08 Plt Clumps, EDTA Not Reportable 01/31/17 03:08 Large Platelets Not Reportable 01/31/17 03:08 Giant Platelets Not Reportable 01/31/17 03:08 Platelet Satelliting Not Reportable 01/31/17 03:08 Plt Morphology Comment Not Reportable 01/31/17 03:08 RBC Morphology Not Reportable 01/31/17 03:08 Dimorphic RBCs Not Reportable 01/31/17 03:08 Polychromasia Not Reportable 01/31/17 03:08 Hypochromasia Not Reportable 01/31/17 03:08 Poikilocytosis Not Reportable 01/31/17 03:08 Anisocytosis Few 01/31/17 03:08 Microcytosis Not Reportable 01/31/17 03:08 Macrocytosis Not Reportable 01/31/17 03:08 Spherocytes Not Reportable 01/31/17 03:08 Pappenheimer Bodies Not Reportable 01/31/17 03:08 Sickle Cells Not Reportable 01/31/17 03:08 Target Cells Not Reportable 01/31/17 03:08 Tear Drop Cells Not Reportable 01/31/17 03:08 Ovalocytes Not Reportable 01/31/17 03:08 Helmet Cells Not Reportable 01/31/17 03:08 [place] Bodies Not Reportable 01/31/17 03:08 [place] Rings Not Reportable 01/31/17 03:08 [place] Cells Not Reportable 01/31/17 03:08 Bite Cells Not Reportable 01/31/17 03:08 Crenated Cell Not Reportable 01/31/17 03:08 Elliptocytes Not Reportable 01/31/17 03:08 Acanthocytes (Spur) Not Reportable 01/31/17 03:08 Rouleaux Few 01/31/17 03:08 Hemoglobin C Crystals Not Reportable 01/31/17 03:08 Schistocytes Not Reportable 01/31/17 03:08 Malaria parasites Not Reportable 01/31/17 03:08 [place] Bodies Not Reportable 01/31/17 03:08 Hem Pathologist Commnt No 01/31/17 03:08 PT 15.6 Sec. (12.2-14.9) H 01/30/17 20:41 INR 1.25 (0.87-1.13) H 01/30/17 20:41 APTT 25.6 Sec. (24.2-36.6) 01/30/17 20:41 Sodium 134 mmol/L (137-145) L 02/01/17 10:14 Potassium 3.8 mmol/L (3.6-5.0) 02/01/17 10:14 Chloride 93.6 mmol/L (98-107) L 02/01/17 10:14 Carbon Dioxide 28 mmol/L (22-30) 02/01/17 10:14 Anion Gap 16 mmol/L 02/01/17 10:14 BUN 23 mg/dL (9-20) H 02/01/17 10:14 Creatinine 1.4 mg/dL (0.8-1.5) 02/01/17 10:14 Estimated GFR 54 ml/min 02/01/17 10:14 BUN/Creatinine Ratio 16.42 % 02/01/17 10:14 Glucose 385 mg/dL (75-100) H 02/01/17 10:14 POC Glucose 375 (70-105) H 02/01/17 21:15 Calcium 9.4 mg/dL (8.4-10.2) 02/01/17 10:14 Magnesium 1.8 mg/dL (1.7-2.3) 01/30/17 20:41 Total Bilirubin 2.3 mg/dL (0.1-1.2) H 01/30/17 20:41 AST 14 units/L (5-40) 01/30/17 20:41 ALT 11 units/L (7-56) 01/30/17 20:41 Alkaline Phosphatase 63 units/L (35-129) 01/30/17 20:41 Total Creatine Kinase 149 units/L (55-170) 01/31/17 03:08 CK-MB (CK-2) 2.0 ng/mL (0.0-4.0) 01/31/17 03:08 CK-MB (CK-2) Rel Index 1.3 (0-4) 01/31/17 03:08 Troponin T < 0.010 ng/mL (0.00-0.029) 01/31/17 03:08 NT-Pro-B Natriuret Pep 2997 pg/mL (0-450) H 01/30/17 20:41 Total Protein 7.1 g/dL (6.3-8.2) 01/30/17 20:41 Albumin 3.9 g/dL (3.9-5) 01/30/17 20:41 Albumin/Globulin Ratio 1.2 % 01/30/17 20:41
[2017-02-02] MEDS: DUONEB 0.5 MG-3 MG/3 ML SOLN IH SCH ×3 (07:39→20:18)
--- NOTE | 2017-02-02 08:10 | Progress Note ---
Assessment and Plan 1. Shortness of breath - multifactorial COPD exacerbation Acute systolic heart failure secondary to dietary indiscretions 2. Presence of automatic (implantable) cardiac defibrillator On amiodarone AV paced on ECG 3. Cardiomyopathy Non-Obstructive LVEF 20% s/p [employer]ING [employer]ATE [employer]ER-D 4. Essential (primary) hypertension - controlled Recommendations: Continue lasix IV once daily negative Is and Os overnight Monitor renal function closely Pulmonary management per primary team Subjective Date of service: 02/02/17 Principal diagnosis: Shortness of breath Interval history: Patient continues to be short of breath Objective Vital Signs Temp Pulse Pulse Pulse Pulse Resp Resp 02/02/17 05:54 97.5 F L 65 22 02/02/17 00:00 98.7 F 69 22 02/01/17 22:00 66 22 02/01/17 21:39 85 02/01/17 21:38 85 02/01/17 20:37 78 24 02/01/17 20:27 75 24 02/01/17 20:00 97.8 F 85 22 02/01/17 16:30 02/01/17 16:28 71 02/01/17 13:50 88 16 02/01/17 13:37 86 16 02/01/17 12:45 71 02/01/17 08:45 97.5 F L 71 18 02/01/17 08:13 70 BP BP BP Pulse Ox 02/02/17 05:54 127/58 99 02/02/17 00:00 125/77 99 02/01/17 22:00 02/01/17 21:39 146/89 02/01/17 21:38 146/89 02/01/17 20:37 02/01/17 20:27 02/01/17 20:00 146/89 94 02/01/17 16:30 143/62 02/01/17 16:28 141/75 02/01/17 13:50 02/01/17 13:37 02/01/17 12:45 141/75 02/01/17 08:45 135/81 96 02/01/17 08:13 - Physical Examination HEENT: Positive: PERRL Neck: Positive: neck supple Cardiac: Positive: Reg Rate and Rhythm Lungs: Positive: Wheezes Neuro: Positive: Grossly Intact Abdomen: Positive: Soft Extremities: Present: edema - Labs and Meds Comprehensive Metabolic Panel 02/01/17 Range/Units 10:14 Sodium 134 L (137-145) mmol/L Potassium 3.8 (3.6-5.0) mmol/L Chloride 93.6 L (98-107) mmol/L Carbon Dioxide 28 (22-30) mmol/L BUN 23 H (9-20) mg/dL Creatinine 1.4 (0.8-1.5) mg/dL Glucose 385 H (75-100) mg/dL Calcium 9.4 (8.4-10.2) mg/dL - Imaging and Cardiology EKG: image reviewed
[2017-02-02] MEDS: NOVOLOG SUB-Q SCH ×7 (09:03→22:00)
[2017-02-02] MEDS: CORDARONE PO SCH (09:07)
[2017-02-02] MEDS: ALDACTONE PO SCH (09:07)
[2017-02-02] MEDS: ZESTRIL PO SCH ×2 (09:08→22:00)
[2017-02-02] MEDS: IMDUR PO SCH (09:09)
[2017-02-02] MEDS: LASIX IV SCH (09:10)
[2017-02-02] MEDS: COREG PO SCH ×2 (09:10→22:00)
[2017-02-02] MEDS: LOVENOX SUB-Q SCH (09:10)
[2017-02-02] MEDS: HALFPRIN EC PO SCH (10:00)
[2017-02-02 10:42] LABS: Chloride 93.4 mmol/L (98-107); Potassium 3.7 mmol/L (3.6-5.0)
--- NOTE | 2017-02-02 16:36 | Progress Note ---
Assessment and Plan Assessment and plan: 45 -year-old man with a history of hypertension, diabetes, gout, BRITTON, COPD, CHF comes to the emergency room complaining of shortness of breath, wheezing, bipedal edema 1. COPD exacerbation Continue steroids, nebulizer, oxygen supplementation and antibiotics 2. Chest pain Serial troponins have actually been negative, ACS ruled out, no further workup, cardiology input appreciated 3. Hypertension Continue current medications 4. Diabetes Insulin sliding scale 5. hypokalemia repleted PO 6. CHF acute on chronic severe systolic CHF, pulmonary vascular congestion Continue IV Lasix, Cardiology input appreciated, optimize meds 7. BRITTON Continue CPAP while asleep. History Interval history: He is complaining of shortness of breath, wheezing and bipedal edema. He admits some improvement in symptoms but gets very winded upon trying to walk to the bathroom Hospitalist Physical - Physical exam Narrative exam: General: Moderate respiratory distress, unable to speak in full sentences HEENT: MMM, EOMI cardiac: S1-S2 heard lungs: Bibasilar crackles, expiratory wheezing throughout abdomen: soft, nontender, nondistended bowel sounds positive extremities: 2+ bipedal edema Skin: no rash or lesion Neuro: no focal deficit Psych: appropriate behavior and mood, cognition intact - Constitutional Vitals: Temp Pulse Resp BP Pulse Ox 97.5 F L 71 20 117/79 97 02/02/17 08:05 02/02/17 13:35 02/02/17 13:35 02/02/17 08:05 02/02/17 08:05 General appearance: Present: no acute distress Results - Labs CBC & Chem 7: 01/31/17 03:08 02/02/17 10:08 Labs: Laboratory Last Values WBC 9.6 K/mm3 (4.5-11.0) 01/31/17 03:08 RBC 4.26 M/mm3 (3.65-5.03) 01/31/17 03:08 Hgb 12.7 gm/dl (11.8-15.2) 01/31/17 03:08 Hct 38.0 % (35.5-45.6) 01/31/17 03:08 MCV 89 fl (84-94) 01/31/17 03:08 MCH 30 pg (28-32) 01/31/17 03:08 MCHC 33 % (32-34) 01/31/17 03:08 RDW 17.1 % (13.2-15.2) H 01/31/17 03:08 Plt Count 180 K/mm3 (140-440) 01/31/17 03:08 Lymph % (Auto) 20.0 % (13.4-35.0) 01/30/17 20:41 [place] % (Auto) 10.3 % (0.0-7.3) H 01/30/17 20:41 Eos % (Auto) 3.1 % (0.0-4.3) 01/30/17 20:41 Baso % (Auto) 0.9 % (0.0-1.8) 01/30/17 20:41 Lymph # 2.2 K/mm3 (1.2-5.4) 01/30/17 20:41 Barren # 1.1 K/mm3 (0.0-0.8) H 01/30/17 20:41 Eos # 0.3 K/mm3 (0.0-0.4) 01/30/17 20:41 Baso # 0.1 K/mm3 (0.0-0.1) 01/30/17 20:41 Add Manual Diff Complete 01/31/17 03:08 Total Counted 100 01/31/17 03:08 Seg Neutrophils % Divisional Human Resources Director 01/31/17 03:08 Seg Neuts % (Manual) 92.0 % (40.0-70.0) H 01/31/17 03:08 Band Neutrophils % 0 % 01/31/17 03:08 Lymphocytes % (Manual) 7.0 % (13.4-35.0) L 01/31/17 03:08 Reactive Lymphs % (Man) 0 % 01/31/17 03:08 Monocytes % (Manual) 1.0 % (0.0-7.3) 01/31/17 03:08 Eosinophils % (Manual) 0 % (0.0-4.3) 01/31/17 03:08 Basophils % (Manual) 0 % (0.0-1.8) 01/31/17 03:08 Metamyelocytes % 0 % 01/31/17 03:08 Myelocytes % 0 % 01/31/17 03:08 Promyelocytes % 0 % 01/31/17 03:08 Blast Cells % 0 % 01/31/17 03:08 Nucleated RBC % Not Reportable 01/31/17 03:08 Seg Neutrophils # 7.3 K/mm3 (1.8-7.7) 01/30/17 20:41 Seg Neutrophils # Man 8.8 K/mm3 (1.8-7.7) H 01/31/17 03:08 Band Neutrophils # 0.0 K/mm3 01/31/17 03:08 Lymphocytes # (Manual) 0.7 K/mm3 (1.2-5.4) L 01/31/17 03:08 Abs React Lymphs (Man) 0.0 K/mm3 01/31/17 03:08 Monocytes # (Manual) 0.1 K/mm3 (0.0-0.8) 01/31/17 03:08 Eosinophils # (Manual) 0.0 K/mm3 (0.0-0.4) 01/31/17 03:08 Basophils # (Manual) 0.0 K/mm3 (0.0-0.1) 01/31/17 03:08 Metamyelocytes # 0.0 K/mm3 01/31/17 03:08 Myelocytes # 0.0 K/mm3 01/31/17 03:08 Promyelocytes # 0.0 K/mm3 01/31/17 03:08 Blast Cells # 0.0 K/mm3 01/31/17 03:08 WBC Morphology Not Reportable 01/31/17 03:08 Hypersegmented Neuts Not Reportable 01/31/17 03:08 Hyposegmented Neuts Not Reportable 01/31/17 03:08 Hypogranular Neuts Not Reportable 01/31/17 03:08 Smudge Cells Not Reportable 01/31/17 03:08 Toxic Granulation Not Reportable 01/31/17 03:08 Toxic Vacuolation Not Reportable 01/31/17 03:08 Dohle Bodies Not Reportable 01/31/17 03:08 Pelger-Huet Anomaly Not Reportable 01/31/17 03:08 Kanika Rods Not Reportable 01/31/17 03:08 Platelet Estimate Appears normal 01/31/17 03:08 Clumped Platelets Not Reportable 01/31/17 03:08 Plt Clumps, EDTA Not Reportable 01/31/17 03:08 Large Platelets Not Reportable 01/31/17 03:08 Giant Platelets Not Reportable 01/31/17 03:08 Platelet Satelliting Not Reportable 01/31/17 03:08 Plt Morphology Comment Not Reportable 01/31/17 03:08 RBC Morphology Not Reportable 01/31/17 03:08 Dimorphic RBCs Not Reportable 01/31/17 03:08 Polychromasia Not Reportable 01/31/17 03:08 Hypochromasia Not Reportable 01/31/17 03:08 Poikilocytosis Not Reportable 01/31/17 03:08 Anisocytosis Few 01/31/17 03:08 Microcytosis Not Reportable 01/31/17 03:08 Macrocytosis Not Reportable 01/31/17 03:08 Spherocytes Not Reportable 01/31/17 03:08 Pappenheimer Bodies Not Reportable 01/31/17 03:08 Sickle Cells Not Reportable 01/31/17 03:08 Target Cells Not Reportable 01/31/17 03:08 Tear Drop Cells Not Reportable 01/31/17 03:08 Ovalocytes Not Reportable 01/31/17 03:08 Helmet Cells Not Reportable 01/31/17 03:08 [place] Bodies Not Reportable 01/31/17 03:08 [place] Rings Not Reportable 01/31/17 03:08 [place] Cells Not Reportable 01/31/17 03:08 Bite Cells Not Reportable 01/31/17 03:08 Crenated Cell Not Reportable 01/31/17 03:08 Elliptocytes Not Reportable 01/31/17 03:08 Acanthocytes (Spur) Not Reportable 01/31/17 03:08 Rouleaux Few 01/31/17 03:08 Hemoglobin C Crystals Not Reportable 01/31/17 03:08 Schistocytes Not Reportable 01/31/17 03:08 Malaria parasites Not Reportable 01/31/17 03:08 [place] Bodies Not Reportable 01/31/17 03:08 Hem Pathologist Commnt No 01/31/17 03:08 PT 15.6 Sec. (12.2-14.9) H 01/30/17 20:41 INR 1.25 (0.87-1.13) H 01/30/17 20:41 APTT 25.6 Sec. (24.2-36.6) 01/30/17 20:41 Sodium 134 mmol/L (137-145) L 02/02/17 10:08 Potassium 3.7 mmol/L (3.6-5.0) 02/02/17 10:08 Chloride 93.4 mmol/L (98-107) L 02/02/17 10:08 Carbon Dioxide 25 mmol/L (22-30) 02/02/17 10:08 Anion Gap 19 mmol/L 02/02/17 10:08 BUN 24 mg/dL (9-20) H 02/02/17 10:08 Creatinine 1.5 mg/dL (0.8-1.5) 02/02/17 10:08 Estimated GFR 50 ml/min 02/02/17 10:08 BUN/Creatinine Ratio 16.00 % 02/02/17 10:08 Glucose 350 mg/dL (75-100) H 02/02/17 10:08 POC Glucose 245 (70-105) H 02/02/17 08:09 Calcium 9.0 mg/dL (8.4-10.2) 02/02/17 10:08 Magnesium 1.8 mg/dL (1.7-2.3) 01/30/17 20:41 Total Bilirubin 2.3 mg/dL (0.1-1.2) H 01/30/17 20:41 AST 14 units/L (5-40) 01/30/17 20:41 ALT 11 units/L (7-56) 01/30/17 20:41 Alkaline Phosphatase 63 units/L (35-129) 01/30/17 20:41 Total Creatine Kinase 149 units/L (55-170) 01/31/17 03:08 CK-MB (CK-2) 2.0 ng/mL (0.0-4.0) 01/31/17 03:08 CK-MB (CK-2) Rel Index 1.3 (0-4) 01/31/17 03:08 Troponin T < 0.010 ng/mL (0.00-0.029) 01/31/17 03:08 NT-Pro-B Natriuret Pep 2997 pg/mL (0-450) H 01/30/17 20:41 Total Protein 7.1 g/dL (6.3-8.2) 01/30/17 20:41 Albumin 3.9 g/dL (3.9-5) 01/30/17 20:41 Albumin/Globulin Ratio 1.2 % 01/30/17 20:41
[2017-02-02] MEDS: LEVEMIR SUB-Q SCH (22:00)
[2017-02-03] MEDS: DUONEB 0.5 MG-3 MG/3 ML SOLN IH SCH ×3 (08:38→20:19)
[2017-02-03] MEDS: NOVOLOG SUB-Q SCH ×7 (08:53→22:39)
--- NOTE | 2017-02-03 09:09 | Progress Note ---
Assessment and Plan 1. Dilated nonischemic cardiomyopathy left ventricular ejection fraction 10-15% . 2. Obstructive sleep apnea on CPAP 3. Type 2 diabetes mellitus 4. Essential hypertension 5. Severe Obesity 6. Chronic obstructive pulmonary disease Plan. Patient is currently stable continue present cardiac medication for the chest x- ray and BNP levels discharge planning Subjective Date of service: 02/03/17 Principal diagnosis: Shortness of breath Interval history: Patient denies any cardiac symptoms today rested comfortably Objective Vital Signs Temp Pulse Pulse Pulse Resp Resp BP 02/03/17 08:54 71 02/03/17 06:53 97.4 F L 69 20 02/03/17 01:44 97.4 F L 64 64 H 02/02/17 22:00 76 131/66 02/02/17 21:08 97.7 F 76 20 02/02/17 20:40 74 20 02/02/17 20:19 74 20 02/02/17 16:30 97.9 F 72 24 02/02/17 13:35 71 20 02/02/17 13:23 68 20 02/02/17 10:00 24 02/02/17 09:08 621 H BP Pulse Ox 02/03/17 08:54 02/03/17 06:53 128/85 97 02/03/17 01:44 161/72 98 02/02/17 22:00 02/02/17 21:08 131/66 98 02/02/17 20:40 02/02/17 20:19 02/02/17 16:30 129/77 94 02/02/17 13:35 02/02/17 13:23 02/02/17 10:00 02/02/17 09:08 - Physical Examination General: Appears Well, Other (obese) HEENT: Positive: PERRL Neck: Positive: neck supple. Negative: JVD/HJR Cardiac: Positive: Regular Rate, S1/S2, S3, PMI, Dilated, Laterally Displaced Lungs: Positive: clear to auscultation, No Wheeze, Rales, Rhonchi Neuro: Positive: Grossly Intact Abdomen: Positive: Soft Extremities: Absent: edema - Labs and Meds Comprehensive Metabolic Panel 02/02/17 Range/Units 10:08 Sodium 134 L (137-145) mmol/L Potassium 3.7 (3.6-5.0) mmol/L Chloride 93.4 L (98-107) mmol/L Carbon Dioxide 25 (22-30) mmol/L BUN 24 H (9-20) mg/dL Creatinine 1.5 (0.8-1.5) mg/dL Glucose 350 H (75-100) mg/dL Calcium 9.0 (8.4-10.2) mg/dL - Imaging and Cardiology EKG: image reviewed - Telemetry EKG Rhythm: Sinus Rhythm
--- NOTE | 2017-02-03 10:41 | XRay Report ---
AP CHEST :02/03/17 CLINICAL: Dyspnea. COMPARISON:01/30/17 FINDINGS: Stable cardiomegaly with a left sided AICD. Stable relatively large central pulmonary vessels. The lungs are clear. No airspace disease or pleural effusion. The bones and soft tissues are normal. IMPRESSION: Cardiomegaly but no CHF. No change.
[2017-02-03] MEDS: COREG PO SCH ×2 (11:11→22:37)
[2017-02-03] MEDS: ZESTRIL PO SCH ×2 (11:11→22:36)
[2017-02-03] MEDS: CORDARONE PO SCH (11:11)
[2017-02-03] MEDS: ALDACTONE PO SCH (11:11)
[2017-02-03] MEDS: IMDUR PO SCH (11:11)
[2017-02-03] MEDS: HALFPRIN EC PO SCH (11:12)
[2017-02-03] MEDS: LOVENOX SUB-Q SCH (11:12)
[2017-02-03] MEDS: LASIX IV SCH (11:12)
[2017-02-03 11:51] LABS: Anion Gap 20 mmol/L; BUN/Creatinine Ratio 18.33; Blood Urea Nitrogen 22 mg/dL (9-20); Calcium 8.8 mg/dL (8.4-10.2); Carbon Dioxide 26 mmol/L (22-30); Chloride 94.2 mmol/L (98-107); Glucose 234 mg/dL (75-100); Potassium 3.8 mmol/L (3.6-5.0); Sodium 136 mmol/L (137-145)
--- NOTE | 2017-02-03 13:20 | Progress Note ---
Assessment and Plan Assessment and plan: 45 -year-old man with a history of hypertension, diabetes, gout, BRITTON, COPD, CHF comes to the emergency room complaining of shortness of breath, wheezing, bipedal edema 1. COPD exacerbation Continue steroids, nebulizer, oxygen supplementation and antibiotics 2. Chest pain Serial troponins have actually been negative, ACS ruled out, no further workup, cardiology input appreciated 3. Hypertension Continue current medications 4. Diabetes- uncontrolled Insulin sliding scale, added levemir and premeal insulins 5. hypokalemia repleted PO 6. CHF acute on chronic severe systolic CHF, pulmonary vascular congestion Continue IV Lasix, Cardiology input appreciated, optimize meds 7. BRITTON Continue CPAP while asleep. History Interval history: He is complaining of shortness of breath, wheezing and bipedal edema. He admits some improvement in symptoms but gets very winded upon trying to walk to the bathroom Hospitalist Physical - Physical exam Narrative exam: General: Moderate respiratory distress, unable to speak in full sentences HEENT: MMM, EOMI cardiac: S1-S2 heard lungs: Bibasilar crackles, expiratory wheezing throughout abdomen: soft, nontender, nondistended bowel sounds positive extremities: 2+ bipedal edema Skin: no rash or lesion Neuro: no focal deficit Psych: appropriate behavior and mood, cognition intact - Constitutional Vitals: Temp Pulse Resp BP Pulse Ox 97.8 F 80 20 126/64 94 02/03/17 10:40 02/03/17 11:37 02/03/17 11:37 02/03/17 10:40 02/03/17 11:37 General appearance: Present: no acute distress Results - Labs CBC & Chem 7: 01/31/17 03:08 02/03/17 10:56 Labs: Laboratory Last Values WBC 9.6 K/mm3 (4.5-11.0) 01/31/17 03:08 RBC 4.26 M/mm3 (3.65-5.03) 01/31/17 03:08 Hgb 12.7 gm/dl (11.8-15.2) 01/31/17 03:08 Hct 38.0 % (35.5-45.6) 01/31/17 03:08 MCV 89 fl (84-94) 01/31/17 03:08 MCH 30 pg (28-32) 01/31/17 03:08 MCHC 33 % (32-34) 01/31/17 03:08 RDW 17.1 % (13.2-15.2) H 01/31/17 03:08 Plt Count 180 K/mm3 (140-440) 01/31/17 03:08 Lymph % (Auto) 20.0 % (13.4-35.0) 01/30/17 20:41 [place] % (Auto) 10.3 % (0.0-7.3) H 01/30/17 20:41 Eos % (Auto) 3.1 % (0.0-4.3) 01/30/17 20:41 Baso % (Auto) 0.9 % (0.0-1.8) 01/30/17 20:41 Lymph # 2.2 K/mm3 (1.2-5.4) 01/30/17 20:41 [place] # 1.1 K/mm3 (0.0-0.8) H 01/30/17 20:41 Eos # 0.3 K/mm3 (0.0-0.4) 01/30/17 20:41 Baso # 0.1 K/mm3 (0.0-0.1) 01/30/17 20:41 Add Manual Diff Complete 01/31/17 03:08 Total Counted 100 01/31/17 03:08 Seg Neutrophils % Mainframe Analyst 01/31/17 03:08 Seg Neuts % (Manual) 92.0 % (40.0-70.0) H 01/31/17 03:08 Band Neutrophils % 0 % 01/31/17 03:08 Lymphocytes % (Manual) 7.0 % (13.4-35.0) L 01/31/17 03:08 Reactive Lymphs % (Man) 0 % 01/31/17 03:08 Monocytes % (Manual) 1.0 % (0.0-7.3) 01/31/17 03:08 Eosinophils % (Manual) 0 % (0.0-4.3) 01/31/17 03:08 Basophils % (Manual) 0 % (0.0-1.8) 01/31/17 03:08 Metamyelocytes % 0 % 01/31/17 03:08 Myelocytes % 0 % 01/31/17 03:08 Promyelocytes % 0 % 01/31/17 03:08 Blast Cells % 0 % 01/31/17 03:08 Nucleated RBC % Not Reportable 01/31/17 03:08 Seg Neutrophils # 7.3 K/mm3 (1.8-7.7) 01/30/17 20:41 Seg Neutrophils # Man 8.8 K/mm3 (1.8-7.7) H 01/31/17 03:08 Band Neutrophils # 0.0 K/mm3 01/31/17 03:08 Lymphocytes # (Manual) 0.7 K/mm3 (1.2-5.4) L 01/31/17 03:08 Abs React Lymphs (Man) 0.0 K/mm3 01/31/17 03:08 Monocytes # (Manual) 0.1 K/mm3 (0.0-0.8) 01/31/17 03:08 Eosinophils # (Manual) 0.0 K/mm3 (0.0-0.4) 01/31/17 03:08 Basophils # (Manual) 0.0 K/mm3 (0.0-0.1) 01/31/17 03:08 Metamyelocytes # 0.0 K/mm3 01/31/17 03:08 Myelocytes # 0.0 K/mm3 01/31/17 03:08 Promyelocytes # 0.0 K/mm3 01/31/17 03:08 Blast Cells # 0.0 K/mm3 01/31/17 03:08 WBC Morphology Not Reportable 01/31/17 03:08 Hypersegmented Neuts Not Reportable 01/31/17 03:08 Hyposegmented Neuts Not Reportable 01/31/17 03:08 Hypogranular Neuts Not Reportable 01/31/17 03:08 Smudge Cells Not Reportable 01/31/17 03:08 Toxic Granulation Not Reportable 01/31/17 03:08 Toxic Vacuolation Not Reportable 01/31/17 03:08 Dohle Bodies Not Reportable 01/31/17 03:08 Pelger-Huet Anomaly Not Reportable 01/31/17 03:08 Kanika Rods Not Reportable 01/31/17 03:08 Platelet Estimate Appears normal 01/31/17 03:08 Clumped Platelets Not Reportable 01/31/17 03:08 Plt Clumps, EDTA Not Reportable 01/31/17 03:08 Large Platelets Not Reportable 01/31/17 03:08 Giant Platelets Not Reportable 01/31/17 03:08 Platelet Satelliting Not Reportable 01/31/17 03:08 Plt Morphology Comment Not Reportable 01/31/17 03:08 RBC Morphology Not Reportable 01/31/17 03:08 Dimorphic RBCs Not Reportable 01/31/17 03:08 Polychromasia Not Reportable 01/31/17 03:08 Hypochromasia Not Reportable 01/31/17 03:08 Poikilocytosis Not Reportable 01/31/17 03:08 Anisocytosis Few 01/31/17 03:08 Microcytosis Not Reportable 01/31/17 03:08 Macrocytosis Not Reportable 01/31/17 03:08 Spherocytes Not Reportable 01/31/17 03:08 Pappenheimer Bodies Not Reportable 01/31/17 03:08 Sickle Cells Not Reportable 01/31/17 03:08 Target Cells Not Reportable 01/31/17 03:08 Tear Drop Cells Not Reportable 01/31/17 03:08 Ovalocytes Not Reportable 01/31/17 03:08 Helmet Cells Not Reportable 01/31/17 03:08 [place] Bodies Not Reportable 01/31/17 03:08 [place] Rings Not Reportable 01/31/17 03:08 Patricia Cells Not Reportable 01/31/17 03:08 Bite Cells Not Reportable 01/31/17 03:08 Crenated Cell Not Reportable 01/31/17 03:08 Elliptocytes Not Reportable 01/31/17 03:08 Acanthocytes (Spur) Not Reportable 01/31/17 03:08 Rouleaux Few 01/31/17 03:08 Hemoglobin C Crystals Not Reportable 01/31/17 03:08 Schistocytes Not Reportable 01/31/17 03:08 Malaria parasites Not Reportable 01/31/17 03:08 [place] Bodies Not Reportable 01/31/17 03:08 Hem Pathologist Commnt No 01/31/17 03:08 PT 15.6 Sec. (12.2-14.9) H 01/30/17 20:41 INR 1.25 (0.87-1.13) H 01/30/17 20:41 APTT 25.6 Sec. (24.2-36.6) 01/30/17 20:41 Sodium 136 mmol/L (137-145) L 02/03/17 10:56 Potassium 3.8 mmol/L (3.6-5.0) 02/03/17 10:56 Chloride 94.2 mmol/L (98-107) L 02/03/17 10:56 Carbon Dioxide 26 mmol/L (22-30) 02/03/17 10:56 Anion Gap 20 mmol/L 02/03/17 10:56 BUN 22 mg/dL (9-20) H 02/03/17 10:56 Creatinine 1.2 mg/dL (0.8-1.5) 02/03/17 10:56 Estimated GFR > 60 ml/min 02/03/17 10:56 BUN/Creatinine Ratio 18.33 % 02/03/17 10:56 Glucose 234 mg/dL (75-100) H 02/03/17 10:56 POC Glucose 192 (70-105) H 02/03/17 08:14 Calcium 8.8 mg/dL (8.4-10.2) 02/03/17 10:56 Magnesium 1.8 mg/dL (1.7-2.3) 01/30/17 20:41 Total Bilirubin 2.3 mg/dL (0.1-1.2) H 01/30/17 20:41 AST 14 units/L (5-40) 01/30/17 20:41 ALT 11 units/L (7-56) 01/30/17 20:41 Alkaline Phosphatase 63 units/L (35-129) 01/30/17 20:41 Total Creatine Kinase 149 units/L (55-170) 01/31/17 03:08 CK-MB (CK-2) 2.0 ng/mL (0.0-4.0) 01/31/17 03:08 CK-MB (CK-2) Rel Index 1.3 (0-4) 01/31/17 03:08 Troponin T < 0.010 ng/mL (0.00-0.029) 01/31/17 03:08 NT-Pro-B Natriuret Pep 2997 pg/mL (0-450) H 01/30/17 20:41 Total Protein 7.1 g/dL (6.3-8.2) 01/30/17 20:41 Albumin 3.9 g/dL (3.9-5) 01/30/17 20:41 Albumin/Globulin Ratio 1.2 % 01/30/17 20:41
[2017-02-03] MEDS: LEVEMIR SUB-Q SCH (22:38)
[2017-02-04] MEDS: DUONEB 0.5 MG-3 MG/3 ML SOLN IH SCH ×3 (08:44→20:18)
[2017-02-04] MEDS: NOVOLOG SUB-Q SCH ×7 (09:41→21:42)
[2017-02-04] MEDS: ALDACTONE PO SCH (10:21)
[2017-02-04] MEDS: IMDUR PO SCH (10:21)
[2017-02-04] MEDS: HALFPRIN EC PO SCH (10:21)
[2017-02-04] MEDS: COREG PO SCH ×2 (10:21→21:41)
[2017-02-04] MEDS: ZESTRIL PO SCH ×2 (10:21→21:41)
[2017-02-04] MEDS: CORDARONE PO SCH (10:21)
[2017-02-04] MEDS: LASIX IV SCH (10:23)
[2017-02-04] MEDS: LOVENOX SUB-Q SCH (10:23)
--- NOTE | 2017-02-04 12:46 | Progress Note ---
Assessment and Plan 1. Dilated nonischemic cardiomyopathy left ventricular ejection fraction 10-15% . 2. Obstructive sleep apnea on CPAP 3. Type 2 diabetes mellitus 4. Essential hypertension 5. Severe Obesity 6. Chronic obstructive pulmonary disease Plan. Patient is currently stable continue present cardiac medication. Check chest x- ray and BNP levels. Discharge planning Subjective Date of service: 02/04/17 Principal diagnosis: Shortness of breath Interval history: Patient denies any cardiac symptoms today rested comfortably Objective Vital Signs Temp Pulse Pulse Pulse Pulse Resp Resp 02/04/17 11:25 97.7 F 70 22 02/04/17 09:38 70 70 20 02/04/17 07:30 69 22 02/04/17 07:06 97.9 F 70 22 02/04/17 01:26 97.6 F 59 L 20 02/03/17 22:37 69 02/03/17 22:36 69 02/03/17 22:00 70 02/03/17 21:46 97.4 F L 69 20 02/03/17 20:29 70 22 02/03/17 20:21 63 22 02/03/17 18:11 70 02/03/17 14:10 70 20 02/03/17 14:03 02/03/17 14:00 71 20 BP BP BP Pulse Ox 02/04/17 11:25 134/82 97 02/04/17 09:38 95 02/04/17 07:30 131/78 95 02/04/17 07:06 133/86 99 02/04/17 01:26 129/70 96 02/03/17 22:37 129/79 02/03/17 22:36 129/79 02/03/17 22:00 97 02/03/17 21:46 129/79 97 02/03/17 20:29 02/03/17 20:21 02/03/17 18:11 124/70 02/03/17 14:10 02/03/17 14:03 99 02/03/17 14:00 - Physical Examination General: Appears Well, Other (obese) HEENT: Positive: PERRL Neck: Positive: neck supple. Negative: JVD/HJR Cardiac: Positive: Regular Rate, S1/S2, S3, PMI, Dilated, Laterally Displaced Lungs: Positive: clear to auscultation, No Wheeze, Rales, Rhonchi Neuro: Positive: Grossly Intact Abdomen: Positive: Unremarkable, Soft, Active Bowel Sounds Extremities: Absent: edema - Imaging and Cardiology EKG: image reviewed
[2017-02-04] MEDS ORDERED: ROBITUSSIN AC PO PRN (14:44)
[2017-02-04] MEDS: LEVEMIR SUB-Q SCH (21:42)
[2017-02-05] MEDS: DUONEB 0.5 MG-3 MG/3 ML SOLN IH SCH ×3 (08:26→20:47)
[2017-02-05] MEDS: LASIX IV SCH (09:47)
[2017-02-05] MEDS: NOVOLOG SUB-Q SCH ×7 (09:48→22:03)
[2017-02-05] MEDS: IMDUR PO SCH (09:48)
[2017-02-05] MEDS: CORDARONE PO SCH (09:48)
[2017-02-05] MEDS: ZESTRIL PO SCH ×2 (09:48→21:55)
[2017-02-05] MEDS: ALDACTONE PO SCH (09:48)
[2017-02-05] MEDS: COREG PO SCH ×2 (09:48→21:55)
[2017-02-05] MEDS: LOVENOX SUB-Q SCH (09:48)
[2017-02-05] MEDS: HALFPRIN EC PO SCH (09:49)
--- NOTE | 2017-02-05 12:01 | Progress Note ---
Assessment and Plan Shortness of breath - multifactorial COPD exacerbation Acute systolic heart failure secondary to dietary indiscretions Acute renal failure Presence of automatic (implantable) cardiac defibrillator ([employer]) AV paced on ECG Hx of Dilated non ischemic cardiomyopathy at least moderate MR with an EF 10-15% on echo 10/2016 normal coronaries by C 09/2015 BRITTON Obese Hx of VT/VF on amiodarone Hypertension Recommend: Continue medical management for his acute on chronic systolic heart failure. Subjective Date of service: 02/05/17 Principal diagnosis: Shortness of breath Interval history: Patient reports shortness of breath continues. No cardiac events overnight. Objective Vital Signs Temp Pulse Pulse Pulse Pulse Pulse Pulse 02/05/17 08:41 71 02/05/17 08:26 87 02/05/17 07:40 97.5 F L 70 02/05/17 05:58 97.4 F L 60 02/05/17 01:13 99.4 F 62 02/04/17 22:00 71 02/04/17 21:41 70 02/04/17 21:23 98.5 F 70 02/04/17 20:26 69 02/04/17 20:19 74 02/04/17 18:12 98.8 F 70 02/04/17 14:29 69 02/04/17 14:09 71 Resp Resp Resp Resp BP BP BP 02/05/17 08:41 18 02/05/17 08:26 22 02/05/17 07:40 24 131/86 02/05/17 05:58 24 131/85 02/05/17 01:13 24 134/80 02/04/17 22:00 02/04/17 21:41 132/72 02/04/17 21:23 20 132/72 02/04/17 20:26 22 02/04/17 20:19 22 02/04/17 18:12 22 133/69 02/04/17 14:29 20 02/04/17 14:09 20 Pulse Ox 02/05/17 08:41 02/05/17 08:26 02/05/17 07:40 99 02/05/17 05:58 99 02/05/17 01:13 97 02/04/17 22:00 02/04/17 21:41 02/04/17 21:23 95 02/04/17 20:26 02/04/17 20:19 02/04/17 18:12 97 02/04/17 14:29 02/04/17 14:09 - Physical Examination General: Appears Well, Other (obese) HEENT: Positive: PERRL Neck: Positive: trachea midline Cardiac: Positive: Other (AV paced) - Imaging and Cardiology EKG: image reviewed
[2017-02-05] MEDS ORDERED: LEVEMIR SUB-Q SCH (14:11)
--- NOTE | 2017-02-05 14:13 | Progress Note ---
Assessment and Plan Assessment and plan: 45 -year-old man with a history of hypertension, diabetes, gout, BRITTON, COPD, CHF comes to the emergency room complaining of shortness of breath, wheezing, bipedal edema 1. COPD exacerbation Continue steroids, nebulizer, oxygen supplementation and antibiotics 2. Chest pain Serial troponins have actually been negative, ACS ruled out, no further workup, cardiology input appreciated 3. Hypertension Continue current medications 4. Diabetes- uncontrolled Insulin sliding scale, added levemir and premeal insulins 5. hypokalemia repleted PO 6. CHF acute on chronic severe systolic CHF, pulmonary vascular congestion Continue IV Lasix, Cardiology input appreciated, optimize meds 7. BRITTON Continue CPAP while asleep. History Interval history: He is complaining of shortness of breath, wheezing and bipedal edema. He admits some improvement in symptoms but gets very winded upon trying to walk to the bathroom Hospitalist Physical - Physical exam Narrative exam: General: Moderate respiratory distress, unable to speak in full sentences HEENT: MMM, EOMI cardiac: S1-S2 heard lungs: Bibasilar crackles, expiratory wheezing throughout abdomen: soft, nontender, nondistended bowel sounds positive extremities: 2+ bipedal edema Skin: no rash or lesion Neuro: no focal deficit Psych: appropriate behavior and mood, cognition intact - Constitutional Vitals: Temp Pulse Resp BP Pulse Ox 97.5 F L 71 18 131/86 99 02/05/17 07:40 02/05/17 13:32 02/05/17 08:41 02/05/17 07:40 02/05/17 07:40 General appearance: Present: no acute distress Results - Labs CBC & Chem 7: 01/31/17 03:08 02/03/17 10:56 Labs: Laboratory Last Values WBC 9.6 K/mm3 (4.5-11.0) 01/31/17 03:08 RBC 4.26 M/mm3 (3.65-5.03) 01/31/17 03:08 Hgb 12.7 gm/dl (11.8-15.2) 01/31/17 03:08 Hct 38.0 % (35.5-45.6) 01/31/17 03:08 MCV 89 fl (84-94) 01/31/17 03:08 MCH 30 pg (28-32) 01/31/17 03:08 MCHC 33 % (32-34) 01/31/17 03:08 RDW 17.1 % (13.2-15.2) H 01/31/17 03:08 Plt Count 180 K/mm3 (140-440) 01/31/17 03:08 Lymph % (Auto) 20.0 % (13.4-35.0) 01/30/17 20:41 [place] % (Auto) 10.3 % (0.0-7.3) H 01/30/17 20:41 Eos % (Auto) 3.1 % (0.0-4.3) 01/30/17 20:41 Baso % (Auto) 0.9 % (0.0-1.8) 01/30/17 20:41 Lymph # 2.2 K/mm3 (1.2-5.4) 01/30/17 20:41 [place] # 1.1 K/mm3 (0.0-0.8) H 01/30/17 20:41 Eos # 0.3 K/mm3 (0.0-0.4) 01/30/17 20:41 Baso # 0.1 K/mm3 (0.0-0.1) 01/30/17 20:41 Add Manual Diff Complete 01/31/17 03:08 Total Counted 100 01/31/17 03:08 Seg Neutrophils % Mirror Fabrication Supervisor 01/31/17 03:08 Seg Neuts % (Manual) 92.0 % (40.0-70.0) H 01/31/17 03:08 Band Neutrophils % 0 % 01/31/17 03:08 Lymphocytes % (Manual) 7.0 % (13.4-35.0) L 01/31/17 03:08 Reactive Lymphs % (Man) 0 % 01/31/17 03:08 Monocytes % (Manual) 1.0 % (0.0-7.3) 01/31/17 03:08 Eosinophils % (Manual) 0 % (0.0-4.3) 01/31/17 03:08 Basophils % (Manual) 0 % (0.0-1.8) 01/31/17 03:08 Metamyelocytes % 0 % 01/31/17 03:08 Myelocytes % 0 % 01/31/17 03:08 Promyelocytes % 0 % 01/31/17 03:08 Blast Cells % 0 % 01/31/17 03:08 Nucleated RBC % Not Reportable 01/31/17 03:08 Seg Neutrophils # 7.3 K/mm3 (1.8-7.7) 01/30/17 20:41 Seg Neutrophils # Man 8.8 K/mm3 (1.8-7.7) H 01/31/17 03:08 Band Neutrophils # 0.0 K/mm3 01/31/17 03:08 Lymphocytes # (Manual) 0.7 K/mm3 (1.2-5.4) L 01/31/17 03:08 Abs React Lymphs (Man) 0.0 K/mm3 01/31/17 03:08 Monocytes # (Manual) 0.1 K/mm3 (0.0-0.8) 01/31/17 03:08 Eosinophils # (Manual) 0.0 K/mm3 (0.0-0.4) 01/31/17 03:08 Basophils # (Manual) 0.0 K/mm3 (0.0-0.1) 01/31/17 03:08 Metamyelocytes # 0.0 K/mm3 01/31/17 03:08 Myelocytes # 0.0 K/mm3 01/31/17 03:08 Promyelocytes # 0.0 K/mm3 01/31/17 03:08 Blast Cells # 0.0 K/mm3 01/31/17 03:08 WBC Morphology Not Reportable 01/31/17 03:08 Hypersegmented Neuts Not Reportable 01/31/17 03:08 Hyposegmented Neuts Not Reportable 01/31/17 03:08 Hypogranular Neuts Not Reportable 01/31/17 03:08 Smudge Cells Not Reportable 01/31/17 03:08 Toxic Granulation Not Reportable 01/31/17 03:08 Toxic Vacuolation Not Reportable 01/31/17 03:08 Dohle Bodies Not Reportable 01/31/17 03:08 Pelger-Huet Anomaly Not Reportable 01/31/17 03:08 Kanika Rods Not Reportable 01/31/17 03:08 Platelet Estimate Appears normal 01/31/17 03:08 Clumped Platelets Not Reportable 01/31/17 03:08 Plt Clumps, EDTA Not Reportable 01/31/17 03:08 Large Platelets Not Reportable 01/31/17 03:08 Giant Platelets Not Reportable 01/31/17 03:08 Platelet Satelliting Not Reportable 01/31/17 03:08 Plt Morphology Comment Not Reportable 01/31/17 03:08 RBC Morphology Not Reportable 01/31/17 03:08 Dimorphic RBCs Not Reportable 01/31/17 03:08 Polychromasia Not Reportable 01/31/17 03:08 Hypochromasia Not Reportable 01/31/17 03:08 Poikilocytosis Not Reportable 01/31/17 03:08 Anisocytosis Few 01/31/17 03:08 Microcytosis Not Reportable 01/31/17 03:08 Macrocytosis Not Reportable 01/31/17 03:08 Spherocytes Not Reportable 01/31/17 03:08 Pappenheimer Bodies Not Reportable 01/31/17 03:08 Sickle Cells Not Reportable 01/31/17 03:08 Target Cells Not Reportable 01/31/17 03:08 Tear Drop Cells Not Reportable 01/31/17 03:08 Ovalocytes Not Reportable 01/31/17 03:08 Helmet Cells Not Reportable 01/31/17 03:08 [place] Bodies Not Reportable 01/31/17 03:08 [place] Rings Not Reportable 01/31/17 03:08 Patricia Cells Not Reportable 01/31/17 03:08 Bite Cells Not Reportable 01/31/17 03:08 Crenated Cell Not Reportable 01/31/17 03:08 Elliptocytes Not Reportable 01/31/17 03:08 Acanthocytes (Spur) Not Reportable 01/31/17 03:08 Rouleaux Few 01/31/17 03:08 Hemoglobin C Crystals Not Reportable 01/31/17 03:08 Schistocytes Not Reportable 01/31/17 03:08 Malaria parasites Not Reportable 01/31/17 03:08 [place] Bodies Not Reportable 01/31/17 03:08 Hem Pathologist Commnt No 01/31/17 03:08 PT 15.6 Sec. (12.2-14.9) H 01/30/17 20:41 INR 1.25 (0.87-1.13) H 01/30/17 20:41 APTT 25.6 Sec. (24.2-36.6) 01/30/17 20:41 Sodium 136 mmol/L (137-145) L 02/03/17 10:56 Potassium 3.8 mmol/L (3.6-5.0) 02/03/17 10:56 Chloride 94.2 mmol/L (98-107) L 02/03/17 10:56 Carbon Dioxide 26 mmol/L (22-30) 02/03/17 10:56 Anion Gap 20 mmol/L 02/03/17 10:56 BUN 22 mg/dL (9-20) H 02/03/17 10:56 Creatinine 1.2 mg/dL (0.8-1.5) 02/03/17 10:56 Estimated GFR > 60 ml/min 02/03/17 10:56 BUN/Creatinine Ratio 18.33 % 02/03/17 10:56 Glucose 234 mg/dL (75-100) H 02/03/17 10:56 POC Glucose 180 (70-105) H 02/05/17 12:17 Calcium 8.8 mg/dL (8.4-10.2) 02/03/17 10:56 Magnesium 1.8 mg/dL (1.7-2.3) 01/30/17 20:41 Total Bilirubin 2.3 mg/dL (0.1-1.2) H 01/30/17 20:41 AST 14 units/L (5-40) 01/30/17 20:41 ALT 11 units/L (7-56) 01/30/17 20:41 Alkaline Phosphatase 63 units/L (35-129) 01/30/17 20:41 Total Creatine Kinase 149 units/L (55-170) 01/31/17 03:08 CK-MB (CK-2) 2.0 ng/mL (0.0-4.0) 01/31/17 03:08 CK-MB (CK-2) Rel Index 1.3 (0-4) 01/31/17 03:08 Troponin T < 0.010 ng/mL (0.00-0.029) 01/31/17 03:08 NT-Pro-B Natriuret Pep 2997 pg/mL (0-450) H 01/30/17 20:41 Total Protein 7.1 g/dL (6.3-8.2) 01/30/17 20:41 Albumin 3.9 g/dL (3.9-5) 01/30/17 20:41 Albumin/Globulin Ratio 1.2 % 01/30/17 20:41
--- NOTE | 2017-02-05 14:14 | Progress Note ---
Assessment and Plan Assessment and plan: 45 -year-old man with a history of hypertension, diabetes, gout, BRITTON, COPD, CHF comes to the emergency room complaining of shortness of breath, wheezing, bipedal edema 1. COPD exacerbation Continue steroids, nebulizer, oxygen supplementation and antibiotics He states that he is in the process of getting a nebulizer machine for home through his director occupational, also we will perform ambulatory oximetry testing to decide if he needs portable oxygen upon discharge. 2. Chest pain Serial troponins have actually been negative, ACS ruled out, no further workup, cardiology input appreciated 3. Hypertension Continue current medications 4. Diabetes- uncontrolled Insulin sliding scale, added levemir and premeal insulins 5. hypokalemia repleted PO 6. CHF acute on chronic severe systolic CHF, pulmonary vascular congestion Continue IV Lasix, Cardiology input appreciated, optimize meds 7. BRITTON Continue CPAP while asleep. Tentative discharge in a.m. if he continues to improve History Interval history: He reports marked improvement in shortness of breath, improvement in pedal edema. He feels better today. Hospitalist Physical - Physical exam Narrative exam: General: Moderate respiratory distress, unable to speak in full sentences HEENT: MMM, EOMI cardiac: S1-S2 heard lungs: Occasional expiratory wheezing abdomen: soft, nontender, nondistended bowel sounds positive extremities: Trace bipedal edema Skin: no rash or lesion Neuro: no focal deficit Psych: appropriate behavior and mood, cognition intact - Constitutional Vitals: Temp Pulse Resp BP Pulse Ox 97.5 F L 68 18 131/86 99 02/05/17 07:40 02/05/17 14:10 02/05/17 14:10 02/05/17 07:40 02/05/17 07:40 General appearance: Present: no acute distress Results - Labs CBC & Chem 7: 01/31/17 03:08 02/03/17 10:56 Labs: Laboratory Last Values WBC 9.6 K/mm3 (4.5-11.0) 01/31/17 03:08 RBC 4.26 M/mm3 (3.65-5.03) 01/31/17 03:08 Hgb 12.7 gm/dl (11.8-15.2) 01/31/17 03:08 Hct 38.0 % (35.5-45.6) 01/31/17 03:08 MCV 89 fl (84-94) 01/31/17 03:08 MCH 30 pg (28-32) 01/31/17 03:08 MCHC 33 % (32-34) 01/31/17 03:08 RDW 17.1 % (13.2-15.2) H 01/31/17 03:08 Plt Count 180 K/mm3 (140-440) 01/31/17 03:08 Lymph % (Auto) 20.0 % (13.4-35.0) 01/30/17 20:41 [place] % (Auto) 10.3 % (0.0-7.3) H 01/30/17 20:41 Eos % (Auto) 3.1 % (0.0-4.3) 01/30/17 20:41 Baso % (Auto) 0.9 % (0.0-1.8) 01/30/17 20:41 Lymph # 2.2 K/mm3 (1.2-5.4) 01/30/17 20:41 [place] # 1.1 K/mm3 (0.0-0.8) H 01/30/17 20:41 Eos # 0.3 K/mm3 (0.0-0.4) 01/30/17 20:41 Baso # 0.1 K/mm3 (0.0-0.1) 01/30/17 20:41 Add Manual Diff Complete 01/31/17 03:08 Total Counted 100 01/31/17 03:08 Seg Neutrophils % [place] Coach 01/31/17 03:08 Seg Neuts % (Manual) 92.0 % (40.0-70.0) H 01/31/17 03:08 Band Neutrophils % 0 % 01/31/17 03:08 Lymphocytes % (Manual) 7.0 % (13.4-35.0) L 01/31/17 03:08 Reactive Lymphs % (Man) 0 % 01/31/17 03:08 Monocytes % (Manual) 1.0 % (0.0-7.3) 01/31/17 03:08 Eosinophils % (Manual) 0 % (0.0-4.3) 01/31/17 03:08 Basophils % (Manual) 0 % (0.0-1.8) 01/31/17 03:08 Metamyelocytes % 0 % 01/31/17 03:08 Myelocytes % 0 % 01/31/17 03:08 Promyelocytes % 0 % 01/31/17 03:08 Blast Cells % 0 % 01/31/17 03:08 Nucleated RBC % Not Reportable 01/31/17 03:08 Seg Neutrophils # 7.3 K/mm3 (1.8-7.7) 01/30/17 20:41 Seg Neutrophils # Man 8.8 K/mm3 (1.8-7.7) H 01/31/17 03:08 Band Neutrophils # 0.0 K/mm3 01/31/17 03:08 Lymphocytes # (Manual) 0.7 K/mm3 (1.2-5.4) L 01/31/17 03:08 Abs React Lymphs (Man) 0.0 K/mm3 01/31/17 03:08 Monocytes # (Manual) 0.1 K/mm3 (0.0-0.8) 01/31/17 03:08 Eosinophils # (Manual) 0.0 K/mm3 (0.0-0.4) 01/31/17 03:08 Basophils # (Manual) 0.0 K/mm3 (0.0-0.1) 01/31/17 03:08 Metamyelocytes # 0.0 K/mm3 01/31/17 03:08 Myelocytes # 0.0 K/mm3 01/31/17 03:08 Promyelocytes # 0.0 K/mm3 01/31/17 03:08 Blast Cells # 0.0 K/mm3 01/31/17 03:08 WBC Morphology Not Reportable 01/31/17 03:08 Hypersegmented Neuts Not Reportable 01/31/17 03:08 Hyposegmented Neuts Not Reportable 01/31/17 03:08 Hypogranular Neuts Not Reportable 01/31/17 03:08 Smudge Cells Not Reportable 01/31/17 03:08 Toxic Granulation Not Reportable 01/31/17 03:08 Toxic Vacuolation Not Reportable 01/31/17 03:08 Dohle Bodies Not Reportable 01/31/17 03:08 Pelger-Huet Anomaly Not Reportable 01/31/17 03:08 Kanika Rods Not Reportable 01/31/17 03:08 Platelet Estimate Appears normal 01/31/17 03:08 Clumped Platelets Not Reportable 01/31/17 03:08 Plt Clumps, EDTA Not Reportable 01/31/17 03:08 Large Platelets Not Reportable 01/31/17 03:08 Giant Platelets Not Reportable 01/31/17 03:08 Platelet Satelliting Not Reportable 01/31/17 03:08 Plt Morphology Comment Not Reportable 01/31/17 03:08 RBC Morphology Not Reportable 01/31/17 03:08 Dimorphic RBCs Not Reportable 01/31/17 03:08 Polychromasia Not Reportable 01/31/17 03:08 Hypochromasia Not Reportable 01/31/17 03:08 Poikilocytosis Not Reportable 01/31/17 03:08 Anisocytosis Few 01/31/17 03:08 Microcytosis Not Reportable 01/31/17 03:08 Macrocytosis Not Reportable 01/31/17 03:08 Spherocytes Not Reportable 01/31/17 03:08 Pappenheimer Bodies Not Reportable 01/31/17 03:08 Sickle Cells Not Reportable 01/31/17 03:08 Target Cells Not Reportable 01/31/17 03:08 Tear Drop Cells Not Reportable 01/31/17 03:08 Ovalocytes Not Reportable 01/31/17 03:08 Helmet Cells Not Reportable 01/31/17 03:08 [place] Bodies Not Reportable 01/31/17 03:08 [place] Rings Not Reportable 01/31/17 03:08 [place] Cells Not Reportable 01/31/17 03:08 Bite Cells Not Reportable 01/31/17 03:08 Crenated Cell Not Reportable 01/31/17 03:08 Elliptocytes Not Reportable 01/31/17 03:08 Acanthocytes (Spur) Not Reportable 01/31/17 03:08 Rouleaux Few 01/31/17 03:08 Hemoglobin C Crystals Not Reportable 01/31/17 03:08 Schistocytes Not Reportable 01/31/17 03:08 Malaria parasites Not Reportable 01/31/17 03:08 [place] Bodies Not Reportable 01/31/17 03:08 Hem Pathologist Commnt No 01/31/17 03:08 PT 15.6 Sec. (12.2-14.9) H 01/30/17 20:41 INR 1.25 (0.87-1.13) H 01/30/17 20:41 APTT 25.6 Sec. (24.2-36.6) 01/30/17 20:41 Sodium 136 mmol/L (137-145) L 02/03/17 10:56 Potassium 3.8 mmol/L (3.6-5.0) 02/03/17 10:56 Chloride 94.2 mmol/L (98-107) L 02/03/17 10:56 Carbon Dioxide 26 mmol/L (22-30) 02/03/17 10:56 Anion Gap 20 mmol/L 02/03/17 10:56 BUN 22 mg/dL (9-20) H 02/03/17 10:56 Creatinine 1.2 mg/dL (0.8-1.5) 02/03/17 10:56 Estimated GFR > 60 ml/min 02/03/17 10:56 BUN/Creatinine Ratio 18.33 % 02/03/17 10:56 Glucose 234 mg/dL (75-100) H 02/03/17 10:56 POC Glucose 180 (70-105) H 02/05/17 12:17 Calcium 8.8 mg/dL (8.4-10.2) 02/03/17 10:56 Magnesium 1.8 mg/dL (1.7-2.3) 01/30/17 20:41 Total Bilirubin 2.3 mg/dL (0.1-1.2) H 01/30/17 20:41 AST 14 units/L (5-40) 01/30/17 20:41 ALT 11 units/L (7-56) 01/30/17 20:41 Alkaline Phosphatase 63 units/L (35-129) 01/30/17 20:41 Total Creatine Kinase 149 units/L (55-170) 01/31/17 03:08 CK-MB (CK-2) 2.0 ng/mL (0.0-4.0) 01/31/17 03:08 CK-MB (CK-2) Rel Index 1.3 (0-4) 01/31/17 03:08 Troponin T < 0.010 ng/mL (0.00-0.029) 01/31/17 03:08 NT-Pro-B Natriuret Pep 2997 pg/mL (0-450) H 01/30/17 20:41 Total Protein 7.1 g/dL (6.3-8.2) 01/30/17 20:41 Albumin 3.9 g/dL (3.9-5) 01/30/17 20:41 Albumin/Globulin Ratio 1.2 % 01/30/17 20:41
[2017-02-05] MEDS: GLUCOTROL PO SCH (16:36)
[2017-02-05] MEDS ORDERED: NORCO 5/325 PO PRN (17:10)
[2017-02-05] MEDS: ROBITUSSIN AC PO SCH (17:40)
[2017-02-06] MEDS: ROBITUSSIN AC PO SCH ×2 (01:15→10:13)
[2017-02-06] MEDS: NOVOLOG SUB-Q SCH ×2 (08:45→08:46)
[2017-02-06] MEDS: DUONEB 0.5 MG-3 MG/3 ML SOLN IH SCH ×2 (09:22→13:34)
--- NOTE | 2017-02-06 09:46 | Discharge Summary ---
Providers - Providers Date of Admission: 01/30/17 23:43 Attending physician: LYNDON CAMPA MD 01/31/17 01:27 Consult to Physician [CONS] Routine Consulting Provider: SHO ORTEZ Reason For Exam: cp Notified:: secretary of state pl call Primary care physician: COAGULATING OPERATOR Hospitalization Condition: Good Hospital course: 45 -year-old man with a history of hypertension, diabetes, gout, BRITTON, COPD, CHF comes to the emergency room complaining of shortness of breath, wheezing, bipedal edema 1. 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 CHF acute on chronic severe systolic CHF, pulmonary vascular congestion He was seen in conjunction with cardiology, he was diuresed with IV Lasix his medications optimized and he has been on low salt diet and fluid restriction. He clinically improved 3. Diabetes- uncontrolled He was started on insulin due to hyperglycemia, he was provided with education on use of instruments and also provided with home health services for further education 4. hypokalemia repleted PO 5. Chest pain Serial troponins have actually been negative, ACS ruled out, no further workup, cardiology input appreciated, Chest pain was most likely 2/2 CHF exacerbation 6. BRITTON Continued CPAP while asleep. Disposition: DISCHARGED TO HOME OR SELFCARE Time spent for discharge: 35 minutes Core Measure Documentation - Palliative Care Palliative Care/ Comfort Measures: Not Applicable - Core Measures Any of the following diagnoses?: heart failure - Heart Failure Discharge Requirements BRITTA/ARB for LVSD if EF <40%: Yes Beta brandon at discharge: Yes Exam - Constitutional Vitals: Temp Pulse Resp BP Pulse Ox 98.2 F 73 17 110/64 94 02/06/17 00:27 02/06/17 09:22 02/06/17 09:22 02/06/17 00:27 02/06/17 00:27 General appearance: Present: no acute distress, well-nourished - EENT Eyes: Present: PERRL ENT: hearing intact, clear oral mucosa - Neck Neck: Present: supple, normal ROM - Respiratory Respiratory effort: normal Respiratory: bilateral: CTA - Cardiovascular Heart Sounds: Present: S1 & S2. Absent: rub, click - Extremities Extremities: pulses symmetrical, No edema Peripheral Pulses: within normal limits - Abdominal General gastrointestinal: Present: soft, non-tender, non-distended, normal bowel sounds Male genitourinary: Present: normal - Integumentary Integumentary: Present: clear, warm, dry - Musculoskeletal Musculoskeletal: gait normal, strength equal bilaterally - Psychiatric Psychiatric: appropriate mood/affect, intact judgment & insight - Neurologic Neurologic: CNII-XII intact, moves all extremities Plan Follow up with: [facility] [Provider Group] - 7 Days PRIMARY CARE, [Primary Care Provider] - 3-5 Days Prescriptions: Insulin Glargine,Hum.rec.anlog [Lantus Solostar] 20 units SQ QHS #5 pen ALBUTEROL Inhaler [ProAir HFA Inhaler] 2 puff IH QID PRN #1 inhalation PRN Reason: Shortness Of Breath Furosemide [Lasix TAB] 80 mg PO QDAY #30 tablet guaiFENesin/CODEINE [Robitussin AC] 10 ml PO Q4H PRN #240 ml PRN Reason: Cough HYDROcodone/APAP 5-325 [[place] 5-325 mg TAB] 1 each PO Q4H PRN #30 tablet PRN Reason: Pain, Moderate (4-6) Prednisone [predniSONE 10 mg (6-Day Pack, 21 Tabs)] 10 mg PO .TAPER #1 tab.ds.pk Tiotropium [place] [Spiriva Respimat] 4 gm IH DAILY #1 mist.inhal Other Discharge Orders: Glucometer (Amb) Location: Determined By Patient
[2017-02-06] MEDS: ALDACTONE PO SCH (09:52)
[2017-02-06] MEDS: HALFPRIN EC PO SCH (09:52)
[2017-02-06] MEDS: GLUCOTROL PO SCH (09:53)
[2017-02-06] MEDS: CORDARONE PO SCH (09:54)
[2017-02-06] MEDS: IMDUR PO SCH (10:00)
[2017-02-06] MEDS: ZESTRIL PO SCH (10:00)
[2017-02-06] MEDS: COREG PO SCH (10:00)
[2017-02-06] MEDS: LOVENOX SUB-Q SCH (10:00)
[2017-02-06] MEDS: LASIX IV SCH (10:13)
[2017-02-06 10:33] VITALS: BP 115/67
--- NOTE | 2017-02-06 10:46 | Progress Note ---
Assessment and Plan Shortness of breath - multifactorial COPD exacerbation Acute systolic heart failure secondary to dietary indiscretions Acute renal failure Presence of automatic (implantable) cardiac defibrillator ([employer]) AV paced on ECG Hx of Dilated non ischemic cardiomyopathy at least moderate MR with an EF 10-15% on echo 10/2016 normal coronaries by C 09/2015 BRITTON Obese Hx of VT/VF on amiodarone Hypertension Recommend: Continue medical management for his chronic systolic heart failure. Stable cardiac richardson. F/U with [facility] in 1-2wks after discharge. Subjective Date of service: 02/06/17 Principal diagnosis: Shortness of breath Interval history: No cardiac events overnight. For planned discharge home today. Objective Vital Signs Temp Pulse Pulse Pulse Pulse Pulse Resp 02/06/17 10:31 97.7 F 74 22 02/06/17 09:22 73 02/06/17 08:00 72 02/06/17 00:27 98.2 F 84 20 02/05/17 21:01 78 02/05/17 20:47 80 02/05/17 20:28 73 02/05/17 20:20 85 02/05/17 20:16 97.7 F 73 18 02/05/17 17:15 97.6 F 70 24 02/05/17 14:22 72 02/05/17 14:10 68 02/05/17 13:32 71 02/05/17 12:10 97.8 F 72 20 Resp Resp BP BP Pulse Ox 02/06/17 10:31 115/67 98 02/06/17 09:22 17 02/06/17 08:00 18 02/06/17 00:27 110/64 94 02/05/17 21:01 14 02/05/17 20:47 16 02/05/17 20:28 02/05/17 20:20 02/05/17 20:16 127/78 97 02/05/17 17:15 134/79 98 02/05/17 14:22 18 02/05/17 14:10 18 02/05/17 13:32 02/05/17 12:10 114/70 98 - Physical Examination General: Appears Well, Other (obese) HEENT: Positive: PERRL Neck: Positive: trachea midline Cardiac: Positive: Other (AV paced) Lungs: Positive: Decreased Breath Sounds Neuro: Positive: Grossly Intact Extremities: Absent: edema - Imaging and Cardiology EKG: image reviewed
== END 2017-02-06 14:14 | disposition home or self-care (01) | DRG 291 ==
LOC: ED 18:37 → 4A 23:43
PROVIDERS: ADMIT Internal Medicine; ATTEND Internal Medicine
PROC: 5A09357 Assistance with Respiratory Ventilation, Less than 24 Consecutive Hours, Continuous Positive Airway Pressure (ICD-10-PCS; principal; 2017-01-30)
DX: I11.0 Hypertensive heart disease with heart failure (principal); J96.20 Acute and chronic respiratory failure, unspecified whether with hypoxia or hypercapnia; J44.1 Chronic obstructive pulmonary disease with (acute) exacerbation; I50.23 Acute on chronic systolic (congestive) heart failure; E66.01 Morbid (severe) obesity due to excess calories; Z68.43 Body mass index [BMI] 50.0-59.9, adult; E87.6 Hypokalemia; I42.0 Dilated cardiomyopathy; G47.33 Obstructive sleep apnea (adult) (pediatric); M10.9 Gout, unspecified; N17.9 Acute kidney failure, unspecified; E11.65 Type 2 diabetes mellitus with hyperglycemia; Z88.1 Allergy status to other antibiotic agents; Z88.8 Allergy status to other drugs, medicaments and biological substances; Z95.810 Presence of automatic (implantable) cardiac defibrillator; Z79.82 Long term (current) use of aspirin; Z79.84 Long term (current) use of oral hypoglycemic drugs; Z82.49 Family history of ischemic heart disease and other diseases of the circulatory system; Z90.49 Acquired absence of other specified parts of digestive tract; Z83.3 Family history of diabetes mellitus; Z87.891 Personal history of nicotine dependence; Z91.018 Allergy to other foods
CPT/HCPCS: 36415; 71010; 80048; 80053; 82550; 82553; 82962; 83735; 83880; 84484; 85007; 85025; 85610; 85730; 93005; 93010; 94640; 94644; 94660; 96365; 96375; J1650; J1815; J1818; J1885; J1940; J2405; J2920; J2930; J3475

== ENCOUNTER 2017-02-11 12:58 | Inpatient (IN) | payer MEDICAID ==
[2017-02-11 15:18] LABS: Basophils % (Auto) 0.3 % (0.0-1.8); Eosinophils % (Auto) 0.1 % (0.0-4.3); Hematocrit 39.5 % (35.5-45.6); Mean Corpuscular HGB Conc 33 % (32-34); Mean Corpuscular Hemoglobin 30 pg (28-32); Mean Corpuscular Volume 90 fl (84-94); Platelet Count 163 K/mm3 (140-440); White Blood Count 17.1 K/mm3 (4.5-11.0)
[2017-02-11 15:40] LABS: BUN/Creatinine Ratio 16.36; Blood Urea Nitrogen 18 mg/dL (9-20); Calcium 8.5 mg/dL (8.4-10.2); Carbon Dioxide 22 mmol/L (22-30); Glucose 138 mg/dL (75-100)
[2017-02-11 15:41] LABS: Anion Gap 19 mmol/L; Chloride 100.5 mmol/L (98-107); Potassium 3.7 mmol/L (3.6-5.0); Sodium 138 mmol/L (137-145)
[2017-02-11] MEDS ORDERED: LASIX IV ONE (15:57)
[2017-02-11] MEDS ORDERED: DUONEB 0.5 MG-3 MG/3 ML SOLN IH ONE (15:57)
[2017-02-11] MEDS ORDERED: DELTASONE PO ONE (15:58)
[2017-02-11] MEDS ORDERED: BABY ASPIRIN PO ONE (16:01)
--- NOTE | 2017-02-11 16:01 | Emergency Department Report ---
HPI - General Chief Complaint: Dyspnea/Respdistress Time Seen by Provider: 02/11/17 15:09 - HPI HPI: The patient is a 46-year-old male with a significant history of CHF who presents for evaluation of dyspnea. The patient reports constant dyspnea for the past one day, severe, exacerbated with lying flat or exertion/physical activity. He also reports associated bilateral lower leg swelling. The patient denies fever, CP, hemoptysis, unilateral leg swelling, recent immobilization, history of DVT or PE. ED Past Medical Hx - Past Medical History Hx Hypertension: Yes Hx Heart Attack/AMI: No Hx Congestive Heart Failure: Yes (dilated cardiomyopathy EF 10-15% severe LA dilatation) Hx Diabetes: Yes Hx Renal Disease: Yes (insufficiency) Hx Asthma: Yes Hx COPD: Yes Hx HIV: No Additional medical history: copd; sleep apnea - Surgical History Hx Pacemaker: Yes Hx Internal Defibrillator: Yes Hx Cholecystectomy: Yes Additional Surgical History: defibulator - Social History Smoking Status: Former Smoker Substance Use Type: None - Medications Home Medications: Home Medications Medication Instructions Recorded Confirmed Last Taken Type Ferrous Sulfate [Feosol 325 MG tab] 325 mg PO BID 05/19/15 02/11/17 02/11/17 History Allopurinol [Zyloprim] 100 mg PO BID 08/31/16 02/11/17 02/11/17 History Magnesium Oxide 400 mg PO DAILY 08/31/16 02/11/17 02/11/17 History Amiodarone 200 mg PO DAILY #30 12/14/16 02/11/17 02/11/17 Rx Aspirin [Aspirin TAB] 325 mg PO QDAY #30 tablet 12/14/16 02/11/17 02/11/17 Rx Carvedilol [Coreg] 25 mg PO BID #60 tablet 12/14/16 02/11/17 02/11/17 Rx ISOSORBIDE MONOnitrate [Imdur ER] 30 mg PO DAILY #30 tablet 12/14/16 02/11/17 Rx Lisinopril [Zestril TAB] 20 mg PO BID #60 tablet 12/14/16 02/11/17 02/11/17 Rx Spironolactone [Aldactone] 25 mg PO BID #30 tablet 12/14/16 02/11/17 02/11/17 Rx glipiZIDE [Glucotrol] 10 mg PO QDAY #30 tablet 12/14/16 02/11/17 02/11/17 Rx ALBUTEROL Inhaler [ProAir HFA 2 puff IH QID PRN #1 inhalation 02/05/17 02/11/17 02/11/17 Rx Inhaler] Furosemide [Lasix TAB] 80 mg PO QDAY #30 tablet 02/05/17 02/11/17 02/11/17 Rx Prednisone [predniSONE 10 mg 10 mg PO .TAPER #1 tab.ds.pk 02/05/17 02/11/17 Rx (6-Day Pack, 21 Tabs)] Tiotropium [place] [Spiriva 4 gm IH DAILY #1 mist.inhal 02/05/17 02/11/17 Rx Respimat] guaiFENesin/CODEINE [Robitussin AC] 10 ml PO Q4H PRN #240 ml 02/05/17 02/11/17 02/11/17 Rx HYDROcodone/APAP 5-325 [[place] 1 each PO Q4H PRN #30 tablet 02/06/17 02/11/17 Rx 5-325 mg TAB] Insulin Glargine,Hum.rec.anlog 20 units SQ QHS #5 pen 02/06/17 02/11/17 Rx [Lantus Solostar] ED Review of Systems ROS: Stated complaint: INCREASED EDEMA Other details as noted in HPI Constitutional: denies: fever ENT: denies: throat or neck pain Respiratory: denies: cough reports shortness of breath Cardiovascular: denies: chest pain Endocrine: denies unexplained weight loss or gain Gastrointestinal: denies: abdominal pain, nausea Genitourinary: denies: dysuria Musculoskeletal: reports: leg swelling Skin: denies: rash Neurological: denies: headache Hematological/Lymphatic: denies: easy bleeding or easy bruising Psych: denies sadness or hopelessness Physical Exam - Physical Exam Vital Signs: Vital Signs 02/11/17 02/11/17 14:32 15:55 Temperature 98.3 F Pulse Rate 71 Respiratory 18 16 Rate Blood Pressure 122/68 O2 Sat by Pulse 99 97 Oximetry Physical Exam: General: well-nourished, well-developed, no acute distress Head: Normocephalic, atraumatic Eyes: normal sclera ENT: Mucous membranes are pink and moist Neck: trachea midline, neck supple, No neck stiffness, no cervical adenopathy Respiratory: Diminished breath sounds and wheezing present throughout lung oneal, bibasilar rales also present Cardio: S1 and S2 present, no murmurs, rubs, gallops, capillary refill is brisk Abdomen: Normoactive bowel sounds, soft abdomen, no rigidity, no guarding or rebound tenderness Musc: 1+ pitting edema of bilateral legs Skin: No rash Neuro: no facial drooping, normal speech Psych: Normal affect ED Course Vital Signs 02/11/17 02/11/17 14:32 15:55 Temperature 98.3 F Pulse Rate 71 Respiratory 18 16 Rate Blood Pressure 122/68 O2 Sat by Pulse 99 97 Oximetry ED Medical Decision Making - Lab Data Result diagrams: 02/11/17 15:01 02/11/17 15:01 - Medical Decision Making The patient was seen and examined by myself. The patient is placed on a cardiac cath rn and continuous pulse ox. On initial evaluation, the patient was found to be in no distress. Evaluation orders were placed. The patient is given a DuoNeb breathing treatment and by mouth prednisone for treatment of his COPD exacerbation. X-ray reveals cardiomegaly and mild central pulmonary vascular congestion. The patient given IV Lasix for treatment of leg swelling and acute on chronic CHF. Labs reveal elevated BNP and mild leukocytosis. The on-call hospitalist service was contacted. They agreed to admit the patient for further treatment and close monitoring. The ED admit order was placed. The patient was admitted in guarded condition. Critical care attestation.: If time is entered above; I have spent that time in minutes in the direct care of this critically ill patient, excluding procedure time. ED Disposition Clinical Impression: Acute exacerbation of chronic obstructive pulmonary disease (COPD), Localized swelling of both lower legs Acute CHF (congestive heart failure) Qualifiers: Congestive heart failure type: systolic Qualified Code(s): I50.21 - Acute systolic (congestive) heart failure Disposition: OP ADMITTED IP TO THIS HOSP Is pt being admited?: Yes Does the pt Need Aspirin: Yes Condition: Fair Referrals: PRIMARY CARE, [Primary Care Provider] - 3-5 Days Time of Disposition: 16:00
[2017-02-11] MEDS ORDERED: PROAIR IH PRN (20:55)
[2017-02-11] MEDS ORDERED: NORCO 5/325 PO PRN (20:57)
[2017-02-11] MEDS ORDERED: ROBITUSSIN AC PO PRN (20:57)
[2017-02-11] MEDS ORDERED: DUONEB 0.5 MG-3 MG/3 ML SOLN IH PRN (20:59)
[2017-02-11] MEDS ORDERED: NON-FORMULARY (Prednisone [Prednisone 10 Mg (6-Day Pack, 21 Tabs)] 10 MG) PO SCH (21:00)
[2017-02-11] MEDS ORDERED: NON-FORMULARY (Furosemide [Lasix Tab] 80 MG) PO SCH (21:00)
[2017-02-11] MEDS ORDERED: AMIODARONE 200 MG PO SCH (21:00)
[2017-02-11] MEDS ORDERED: NON-FORMULARY (Insulin Glargine,Hum.Rec.Anlog [Lantus Solostar] 20 UNITS) SQ SCH (22:00)
--- NOTE | 2017-02-11 22:10 | History and Physical Report ---
CHIEF COMPLAINT: Increasing shortness of breath for the last 2 days. HISTORY OF PRESENT ILLNESS: A 46-year-old morbidly obese male lying in bed, flat, comes in for increasing shortness of breath 1 week duration, more so for the last 2-3 days. Cough productive of mucoid sputum. The patient was recently discharged from this hospital on 01/30/2017. The patient had multiple admissions in the past, has 3 admissions in this last 4 months and about 10-12 admissions in the last 1 year, in the year 2016. The patient continues to have shortness of breath and also swelling of both the legs. Orthopnea present. No PND attacks. PAST MEDICAL HISTORY: As mentioned, congestive heart failure, dilated cardiomyopathy with EF of 10-15%, insulin-dependent diabetes, renal insufficiency, COPD, asthma, sleep apnea, and hypertension. PAST SURGICAL HISTORY: Cholecystectomy, internal defibrillator, and pacemaker. SOCIAL HISTORY: Former smoker, stopped smoking 3 years ago. CURRENT MEDICATIONS: On the chart. REVIEW OF SYSTEMS: CONSTITUTIONAL: No weight loss. No weight gain. No fever. No chills. HEENT: No sore throat, no postnasal drip. CARDIOVASCULAR AND RESPIRATORY: Orthopnea present, shortness of breath on minimal exertion present, wheezing present, cough productive of mucoid sputum present. No chest pain. GASTROINTESTINAL: No nausea, no vomiting, no diarrhea. GENITOURINARY: No dysuria, no flank pain. MUSCULOSKELETAL: No joint pains. CENTRAL NERVOUS SYSTEM: No syncope, no seizures. SKIN: Has a rash in the suprapubic region secondary to Lovenox and Lantus injections. Hyperpigmentation present. EXTREMITIES: Lower extremities, bilateral pedal edema present. A 14-point review of systems done, other than shortness of breath, orthopnea, swelling of both the legs, coughing, and wheezing, review of systems essentially negative. PHYSICAL EXAMINATION: GENERAL: Middle-aged male, morbidly obese, lying in bed, in slight respiratory distress. VITAL SIGNS: Blood pressure 122/68, temperature 98.3, pulse is 71, respirations are 18. HEENT: Unremarkable. Pupils equal and reactive. NECK: Supple, no lymphadenopathy, no thyromegaly. LUNGS: Clear to auscultation and percussion. Good air entry. CARDIOVASCULAR: S1, S2 heard. No gallop, no murmur, no rub. Apical impulse in left fifth intercostal space and midclavicular line. ABDOMEN: Soft and benign. No hepatosplenomegaly. No guarding, no rigidity. EXTREMITIES: 3 pedal edema present. CENTRAL NERVOUS SYSTEM: Alert and oriented x 4, nonfocal exam. SKIN: Normal. Some stasis dermatitis present on both the legs. Also, hyperpigmentation in the suprapubic region secondary to Lovenox injections. LABORATORY DATA: Significant for white count of 17,100, H and H is 13.0 and 39.5. Electrolytes are normal. Glucose is 138. Chest x-ray shows pulmonary vascular congestion. EKG shows sinus tachycardia 100 per minute, nonspecific ST-T wave changes. ASSESSMENT AND PLAN: 1. Congestive heart failure exacerbation, combined failure. The patient initiated on Lasix 80 mg q.12h. The patient has dilated cardiomyopathy with ejection fraction of about 15%. 2. Chronic obstructive pulmonary disease exacerbations. The patient initiated on DuoNeb q.6h. round the clock and q3 h prnSolu-Medrol low dose and IV Levaquin. 3. Insulin-dependent diabetes. Continue insulin Lantus and coverage. Check hemoglobin A1c. 4. Morbid obesity. The patient to be counseled regarding bariatric surgery. If not, he will be coming to the hospital on a frequent basis because of his morbid obesity and possible noncompliance. 5. Arrhythmias. Continue amiodarone. 6. Gout. Continue allopurinol 100 mg p.o. b.i.d. 7. Anemia. Continue ferrous sulfate. 8. Deep venous thrombosis prophylaxis, Lovenox 40 mg subcutaneous daily. JOB# [id number] AZIZA/BEATA CONKLIN
[2017-02-11] MEDS: NOVOLOG SUB-Q SCH (22:40)
[2017-02-11] MEDS: IMDUR PO SCH (22:41)
[2017-02-11] MEDS: LEVAQUIN 750MG/150ML 750 MG/150 ML BAG IV SCH (22:42)
[2017-02-11] MEDS: COREG PO SCH (22:43)
[2017-02-11] MEDS: FEOSOL PO SCH (22:44)
[2017-02-11] MEDS: ALDACTONE PO SCH (22:44)
[2017-02-11] MEDS: ZYLOPRIM PO SCH (22:47)
[2017-02-11] MEDS: ZESTRIL PO SCH (22:48)
--- NOTE | 2017-02-12 00:34 | Admit Criteria Form ---
Admission Criteria Documentation: COPD Clinical Indications for Admission to Inpatient Care (Place 'X' for any and all applicable criteria): Admission is indicated for ANY ONE of the following (1)(2)(3): [ ]I. Acute exacerbation by high-risk comorbidity (e.g., pneumonia, dysrhythmia, heart failure, pleural effusion, pneumothorax) or severe underlying COPD (e.g., steroid dependent) [ X]II. Inpatient admission required rather than observation care (see Chronic Obstructive Pulmonary Disease: Observation Care) because of ANY ONE of the following: [X ]a) New or pre-existing signs or symptoms of COPD (eg, dyspnea or Tachypnea at rest or with minimal activity) that persist despite outpatient and observation care treatment [ ]b) New-onset hypoxemia (room air SaO2 less than 90%, PO2 less than 60 mm Hg (8.0 kPa)) that persists despite outpatient and observation care treatment [ ]c) Worsening of pre-existing hypoxemia (eg, new or increased requirement for supplemental oxygen to maintain oxygenation at baseline level) that persists despite outpatient and observation care treatment, with oxygen treatment needs performable only in acute inpatient setting [ ]d) Hypercarbia (PCO2 greater than 40 mm Hg (5.3 kPa))-induced respiratory acidosis (pH less than 7.35) that persists despite outpatient and observation care treatment [ ]e) Supplemental oxygen or respiratory treatments for over 24 hours that are performable only in acute inpatient setting [ ]f) Chest tube placement with active evacuation (e.g., suction, drainage) (5) [ ]g) Other condition, treatment or monitoring requiring inpatient admission [ ]III. Planned invasive surgical or diagnostic procedures requiring acute- care hospitalization [ ]IV. Acute respiratory failure (e.g., uncompensated hypercarbia, severe hypoxemia) [ ]V. Severe comorbid condition (e.g., severe steroid myopathy, acute vertebral fracture) that has acutely worsened pulmonary function [ ]. Confusion state, lethargy, obtundation, stupor or coma Extended stay beyond goal length of stay may be needed for (31)(32): [ ]a ) Respiratory Failure. [ ]b) Severe or persisting hypoxemia or hypercarbia [ ]c) Severe or persistent dyspnea [ ]d) Comorbidities (e.g. chronic heart failure, atrial fibrillation with rapid response, pneumonia) [ ]e) Malnutrition The original [facility] content created by [facility] has been revised. The portions of the content which have been revised are identified through the use of italic text or in bold, and [facility] has neither reviewed nor approved the modified material. All other unmodified content is copyright [facility]. Please see references footnoted in the original [facility] edition 2016 Admission Criteria Met: Yes
[2017-02-12] MEDS: PROVENTIL IH PRN (02:22)
[2017-02-12] MEDS: DUONEB 0.5 MG-3 MG/3 ML SOLN IH SCH ×5 (04:24→21:06)
--- NOTE | 2017-02-12 07:37 | XRay Report ---
AP CHEST: HISTORY: Short of breath Mild cardiomegaly and mild pulmonary venous congestion are stable since 02/03/17. The lungs are generally clear. No consolidation, pneumothorax or large pleural effusion. Pacemaker device is unchanged. IMPRESSION: Cardiomegaly and pulmonary venous congestion, unchanged since 02/03/17.
[2017-02-12] MEDS: NOVOLOG SUB-Q SCH ×4 (09:04→22:11)
[2017-02-12] MEDS ORDERED: NON-FORMULARY (Tiotropium Bromide [Spiriva Respimat] 4 GM) IH SCH (10:00)
[2017-02-12] MEDS: IMDUR PO SCH (10:12)
[2017-02-12] MEDS: ASPIRIN PO SCH (10:12)
[2017-02-12] MEDS: LASIX PO SCH (10:13)
[2017-02-12] MEDS: FEOSOL PO SCH ×2 (10:13→22:00)
[2017-02-12] MEDS: ZESTRIL PO SCH ×2 (10:14→22:00)
[2017-02-12] MEDS: COREG PO SCH ×2 (10:14→22:01)
[2017-02-12] MEDS: MAG-OX PO SCH (10:14)
[2017-02-12] MEDS: CORDARONE PO SCH (10:15)
[2017-02-12] MEDS: GLUCOTROL PO SCH (10:15)
[2017-02-12] MEDS: ALDACTONE PO SCH ×2 (10:15→22:00)
[2017-02-12] MEDS: ZYLOPRIM PO SCH ×2 (10:15→22:01)
--- NOTE | 2017-02-12 11:06 | Progress Note ---
Assessment and Plan Assessment and plan: Acute systolic heart failure exacerbation. Continue IV diuresis. Continue on the heart failure pathway. Cardiology Consultation pending. Acute COPD exacerbation. Continue nebulizer, IV steroids and IV antibiotics. Acute hypoxic respiratory failure. Etiology is multifactorial. Continue to treat underlying causes. Follow-up ABG. Pulmonary consultation. [place]. Continue CPAP at bedtime. Diabetes mellitus type 2. Continue Lantus, sliding scale regular insulin and Accu-Cheks. Follow up hemoglobin A1c. Morbid obesity. Patient to be counseled regarding bariatric surgery. Cardiac dysrhythmia. Continue amiodarone. Gout. Continue allopurinol 100 mg by mouth twice a day. Anemia. Follow H&H and transfuse for hemoglobin less than 7.0. DVT prophylaxis. Lovenox daily. History Interval history: Patient still complains of dyspnea. He denies chest pain. Hospitalist Physical - Constitutional Vitals: Temp Pulse Resp BP Pulse Ox 97.0 F L 66 22 132/70 98 02/12/17 08:18 02/12/17 10:15 02/12/17 08:18 02/12/17 10:15 02/12/17 08:18 General appearance: Present: no acute distress, well-nourished, obese - EENT Eyes: Present: PERRL, EOM intact ENT: hearing intact, clear oral mucosa, dentition normal - Neck Neck: Present: supple, normal ROM - Respiratory Respiratory effort: normal Respiratory: bilateral: diminished, rales, wheezing - Cardiovascular Rhythm: regular Heart Sounds: Present: S1 & S2. Absent: gallop, rub - Extremities Extremities: no ischemia, No edema, Full ROM - Abdominal General gastrointestinal: soft, non-tender, non-distended, normal bowel sounds - Integumentary Integumentary: Present: clear, warm, dry - Neurologic Neurologic: CNII-XII intact, moves all extremities Results - Labs CBC & Chem 7: 02/11/17 15:01 02/11/17 15:01 Labs: Laboratory Last Values WBC 17.1 K/mm3 (4.5-11.0) H 02/11/17 15:01 RBC 4.40 M/mm3 (3.65-5.03) 02/11/17 15:01 Hgb 13.0 gm/dl (11.8-15.2) 02/11/17 15:01 Hct 39.5 % (35.5-45.6) 02/11/17 15:01 MCV 90 fl (84-94) 02/11/17 15:01 MCH 30 pg (28-32) 02/11/17 15:01 MCHC 33 % (32-34) 02/11/17 15:01 RDW 18.0 % (13.2-15.2) H 02/11/17 15:01 Plt Count 163 K/mm3 (140-440) 02/11/17 15:01 Lymph % (Auto) 7.5 % (13.4-35.0) L 02/11/17 15:01 [place] % (Auto) 8.6 % (0.0-7.3) H 02/11/17 15:01 Eos % (Auto) 0.1 % (0.0-4.3) 02/11/17 15:01 Baso % (Auto) 0.3 % (0.0-1.8) 02/11/17 15:01 Lymph # 1.3 K/mm3 (1.2-5.4) 02/11/17 15:01 [place] # 1.5 K/mm3 (0.0-0.8) H 02/11/17 15:01 Eos # 0.0 K/mm3 (0.0-0.4) 02/11/17 15:01 Baso # 0.0 K/mm3 (0.0-0.1) 02/11/17 15:01 Seg Neutrophils % 83.5 % (40.0-70.0) H 02/11/17 15:01 Seg Neutrophils # 14.3 K/mm3 (1.8-7.7) H 02/11/17 15:01 Sodium 138 mmol/L (137-145) 02/11/17 15:01 Potassium 3.7 mmol/L (3.6-5.0) 02/11/17 15:01 Chloride 100.5 mmol/L (98-107) 02/11/17 15:01 Carbon Dioxide 22 mmol/L (22-30) 02/11/17 15:01 Anion Gap 19 mmol/L 02/11/17 15:01 BUN 18 mg/dL (9-20) 02/11/17 15:01 Creatinine 1.1 mg/dL (0.8-1.5) 02/11/17 15:01 Estimated GFR > 60 ml/min 02/11/17 15:01 BUN/Creatinine Ratio 16.36 % 02/11/17 15:01 Glucose 138 mg/dL (75-100) H 02/11/17 15:01 POC Glucose 163 (70-105) H 02/12/17 05:56 Calcium 8.5 mg/dL (8.4-10.2) 02/11/17 15:01 Troponin T < 0.010 ng/mL (0.00-0.029) 02/11/17 15:01 NT-Pro-B Natriuret Pep 7033 pg/mL (0-450) H 02/11/17 15:01
--- NOTE | 2017-02-12 20:55 | Event Note ---
Date: 02/12/17 Dr. Garcia thank you for asking us to participate in the care of this patient. Pulmonar consultation dictation number; [id number]. This is 46 year old white male admitted with shortness of breath.Patient has history of COPD,Sleep apnea,CHF, AICD, Hypertnsion,Diabetes and CKD. Patient also complaining some cough. Denies chest pain. Cpmplaining about peripheral edema.Patient has history of smoking 1 Pack for 30 years. Stopped smoking about 11/2 year ago. Denies alcohol or drug abuse. children 1. Not worked. spend most of the time in [facility].Allergic to keflex and lidocaine.Patient has CPAP at home at 20 cm H2O pressure. IMMPRESSION: 1. ACUTE EXAGERBATION OF COPD. 2. EXACERBATION OF CHF. 3. MORBID OBESITY. 4. SLEEP APNEA. 5. CARDIOMYOPATHY,S/P CARDIAC DEFIBRILLATOR IMPLANTATION. 6. DIABETES. 7. HYPERTENSION PLAN; 1. O2 2 LITRES VIA NASAL CANULA. 2. CPAP 20 CM H20 PRESSURE DURING NIGHT TIME. 3. ALBUTEROL/ATROVENT AEROSOL TREATMENTS Q 6 HOURS. 4. CONTINUE I/V SOLUMEDRAL. 5. CONTINUE LEVAQUINE 6. RECOMMEND S/C LOVENOX.
[2017-02-12] MEDS: LEVAQUIN 750MG/150ML 750 MG/150 ML BAG IV SCH (22:11)
[2017-02-12] MEDS: LEVEMIR SUB-Q SCH (22:12)
[2017-02-13] MEDS: DUONEB 0.5 MG-3 MG/3 ML SOLN IH SCH ×4 (02:03→19:56)
[2017-02-13 07:42] LABS: Hematocrit 38.2 % (35.5-45.6); Hemoglobin 12.3 gm/dl (11.8-15.2); Mean Corpuscular HGB Conc 32 % (32-34); Mean Corpuscular Hemoglobin 29 pg (28-32); Mean Corpuscular Volume 91 fl (84-94); Platelet Count 148 K/mm3 (140-440); Red Blood Count 4.22 M/mm3 (3.65-5.03); Red Cell Distribution Width 18.4 % (13.2-15.2); White Blood Count 14.1 K/mm3 (4.5-11.0)
[2017-02-13 08:01] LABS: Anion Gap 18 mmol/L; Blood Urea Nitrogen 30 mg/dL (9-20); Calcium 8.8 mg/dL (8.4-10.2); Carbon Dioxide 25 mmol/L (22-30); Chloride 97.7 mmol/L (98-107); Glucose 206 mg/dL (75-100); Potassium 4.2 mmol/L (3.6-5.0); Sodium 136 mmol/L (137-145)
[2017-02-13] MEDS: NOVOLOG SUB-Q SCH ×4 (08:51→22:10)
--- NOTE | 2017-02-13 10:22 | Progress Note ---
Assessment and Plan Assessment and plan: Acute systolic heart failure exacerbation. Continue IV diuresis. Continue on the heart failure pathway. Cardiology Consultation pending. Acute COPD exacerbation. Continue nebulizer, IV steroids and IV antibiotics. Acute hypoxic respiratory failure. Etiology is multifactorial. Continue to treat underlying causes. Follow-up ABG. Pulmonary consultation. [place]. Continue CPAP at bedtime. Diabetes mellitus type 2. Continue Lantus, sliding scale regular insulin and Accu-Cheks. Follow up hemoglobin A1c. Morbid obesity. Patient to be counseled regarding bariatric surgery. Cardiac dysrhythmia. Continue amiodarone. Gout. Continue allopurinol 100 mg by mouth twice a day. Anemia. Follow H&H and transfuse for hemoglobin less than 7.0. DVT prophylaxis. Lovenox daily. History Interval history: Patient still complains of dyspnea. Patient complains of lower extremity swelling bilaterally. Hospitalist Physical - Constitutional Vitals: Temp Pulse Resp BP Pulse Ox 98.3 F 72 18 132/70 98 02/13/17 08:20 02/13/17 08:20 02/13/17 08:20 02/13/17 08:20 02/13/17 08:20 General appearance: Present: no acute distress, well-nourished, obese - EENT Eyes: Present: PERRL, EOM intact ENT: hearing intact, clear oral mucosa, dentition normal - Neck Neck: Present: supple, normal ROM - Respiratory Respiratory effort: normal Respiratory: bilateral: diminished, rales, rhonchi - Cardiovascular Rhythm: regular Heart Sounds: Present: S1 & S2. Absent: gallop, rub - Extremities Extremities: no ischemia, Full ROM Extremity abnormal: edema (2+) - Abdominal General gastrointestinal: soft, non-tender, non-distended, normal bowel sounds - Integumentary Integumentary: Present: clear, warm, dry - Neurologic Neurologic: CNII-XII intact, moves all extremities Results - Labs CBC & Chem 7: 02/13/17 06:01 02/13/17 06:01 Labs: Laboratory Last Values WBC 14.1 K/mm3 (4.5-11.0) H 02/13/17 06:01 RBC 4.22 M/mm3 (3.65-5.03) 02/13/17 06:01 Hgb 12.3 gm/dl (11.8-15.2) 02/13/17 06:01 Hct 38.2 % (35.5-45.6) 02/13/17 06:01 MCV 91 fl (84-94) 02/13/17 06:01 MCH 29 pg (28-32) 02/13/17 06:01 MCHC 32 % (32-34) 02/13/17 06:01 RDW 18.4 % (13.2-15.2) H 02/13/17 06:01 Plt Count 148 K/mm3 (140-440) 02/13/17 06:01 Lymph % (Auto) 7.5 % (13.4-35.0) L 02/11/17 15:01 [place] % (Auto) 8.6 % (0.0-7.3) H 02/11/17 15:01 Eos % (Auto) 0.1 % (0.0-4.3) 02/11/17 15:01 Baso % (Auto) 0.3 % (0.0-1.8) 02/11/17 15:01 Lymph # 1.3 K/mm3 (1.2-5.4) 02/11/17 15:01 [place] # 1.5 K/mm3 (0.0-0.8) H 02/11/17 15:01 Eos # 0.0 K/mm3 (0.0-0.4) 02/11/17 15:01 Baso # 0.0 K/mm3 (0.0-0.1) 02/11/17 15:01 Seg Neutrophils % [employer] 02/13/17 06:01 Seg Neutrophils # 14.3 K/mm3 (1.8-7.7) H 02/11/17 15:01 Sodium 136 mmol/L (137-145) L 02/13/17 06:01 Potassium 4.2 mmol/L (3.6-5.0) 02/13/17 06:01 Chloride 97.7 mmol/L (98-107) L 02/13/17 06:01 Carbon Dioxide 25 mmol/L (22-30) 02/13/17 06:01 Anion Gap 18 mmol/L 02/13/17 06:01 BUN 30 mg/dL (9-20) H 02/13/17 06:01 Creatinine 1.2 mg/dL (0.8-1.5) 02/13/17 06:01 Estimated GFR > 60 ml/min 02/13/17 06:01 BUN/Creatinine Ratio 25.00 % 02/13/17 06:01 Glucose 206 mg/dL (75-100) H 02/13/17 06:01 POC Glucose 203 (70-105) H 02/13/17 06:18 Calcium 8.8 mg/dL (8.4-10.2) 02/13/17 06:01 Troponin T < 0.010 ng/mL (0.00-0.029) 02/11/17 15:01 NT-Pro-B Natriuret Pep 7033 pg/mL (0-450) H 02/11/17 15:01
[2017-02-13 10:32] LABS: Blastocytes % (Manual) 0 %
[2017-02-13 10:33] LABS: Acanthocytes Rare; Anisocytosis 1+; Basophils % (Manual) 0 % (0.0-1.8); Burr Cells 1+; Diff Status Complete; Eosinophils % (Manual) 0 % (0.0-4.3); Helmet Cells Rare; Poikilocytosis 1+; Polychromasia 1+; Target Cells Rare
[2017-02-13] MEDS: ZESTRIL PO SCH ×2 (11:04→21:26)
[2017-02-13] MEDS: IMDUR PO SCH (11:04)
[2017-02-13] MEDS: MAG-OX PO SCH (11:05)
[2017-02-13] MEDS: LASIX PO SCH (11:05)
[2017-02-13] MEDS: CORDARONE PO SCH (11:05)
[2017-02-13] MEDS: ALDACTONE PO SCH ×2 (11:06→21:27)
[2017-02-13] MEDS: COREG PO SCH ×2 (11:06→21:27)
[2017-02-13] MEDS: FEOSOL PO SCH ×2 (11:07→21:26)
[2017-02-13] MEDS: ASPIRIN PO SCH (11:07)
[2017-02-13] MEDS: LOVENOX SUB-Q SCH (11:07)
[2017-02-13] MEDS: ZYLOPRIM PO SCH ×2 (11:07→21:28)
[2017-02-13] MEDS: GLUCOTROL PO SCH (11:12)
--- NOTE | 2017-02-13 20:46 | Progress Note ---
Assessment and Plan Patient awake and resting on CPAP. Still complaining some wheezing and shortness of breath. - Patient Problems (1) Acute exacerbation of chronic obstructive pulmonary disease (COPD) Current Visit: Yes Status: Acute Plan to address problem: 1. O2 2 LITRES VIA NASAL CANULA. 2. CPAP 20 CM H20 PRESSURE DURING NIGHT TIME. 3. ALBUTEROL/ATROVENT AEROSOL TREATMENTS Q 6 HOURS. 4. CONTINUE I/V SOLUMEDRAL. 5. CONTINUE LEVAQUINE 6. RECOMMEND S/C LOVENOX. (2) Acute CHF (congestive heart failure) Current Visit: Yes Status: Acute Qualifiers: Congestive heart failure type: systolic Qualified Code(s): I50.21 - Acute systolic (congestive) heart failure Plan to address problem: Management as per cardiology. (3) Sleep apnea, obstructive Current Visit: Yes Status: Acute Plan to address problem: Continue CPAP. (4) Morbid obesity due to excess calories Current Visit: No Status: Chronic Plan to address problem: Recommend to loose weight. Consult assistant professor in family studies for weight reduction diet. (5) Dilated cardiomyopathy Current Visit: No Status: Chronic Plan to address problem: Management as per cardiology. (6) Cardiac defibrillator in place Current Visit: No Status: Chronic (7) HTN (hypertension) Current Visit: No Status: Chronic Qualifiers: Hypertension type: essential hypertension Qualified Code(s): I10 - Essential (primary) hypertension Plan to address problem: Management as per primary care. 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 Subjective Date of service: 02/13/17 Interval history: Patient awake and resting on CPAP. Still complaining some wheezing and shortness of breath. Objective Vital Signs - 12hr 02/13/17 02/13/17 02/13/17 11:04 11:06 13:45 Temperature Pulse Rate 72 72 Pulse Rate [ 73 Anterior Bilateral Throughout] Pulse Rate [ Right From Monitor] Respiratory Rate Respiratory 18 Rate [Anterior Bilateral Throughout] Blood Pressure 132/70 132/70 Blood Pressure [Right Arm] 02/13/17 02/13/17 02/13/17 13:55 16:00 19:57 Temperature 98.4 F Pulse Rate Pulse Rate [ 73 78 Anterior Bilateral Throughout] Pulse Rate [ 70 Right From Monitor] Respiratory 20 Rate Respiratory 18 18 Rate [Anterior Bilateral Throughout] Blood Pressure Blood Pressure 122/80 [Right Arm] 02/13/17 20:07 Temperature Pulse Rate Pulse Rate [ 82 Anterior Bilateral Throughout] Pulse Rate [ Right From Monitor] Respiratory Rate Respiratory 19 Rate [Anterior Bilateral Throughout] Blood Pressure Blood Pressure [Right Arm] Constitutional: no acute distress, alert Eyes: non-icteric ENT: oropharynx moist Neck: supple, no lymphadenopathy Ascultation: Bilateral: diminished breath sounds, wheezes Cardiovascular: regular rate and rhythm Gastrointestinal: normoactive bowel sounds, soft, non-tender Integumentary: normal Extremities: no cyanosis, other (Trace edema.) Neurologic: normal mental status, non-focal exam, pupils equal and round, CN II- XII normal Psychiatric: mood appropriate CBC and BMP: 02/13/17 06:01 02/13/17 06:01 Abnormal lab findings: Abnormal Labs 02/11/17 02/12/17 02/12/17 21:06 05:56 11:32 WBC RDW Seg Neuts % (Manual) Lymphocytes % (Manual) Seg Neutrophils # Man Lymphocytes # (Manual) Sodium Chloride BUN Glucose POC Glucose 173 H 163 H 253 H 02/12/17 02/13/17 02/13/17 21:49 06:01 06:01 WBC 14.1 H RDW 18.4 H Seg Neuts % (Manual) 94.0 H Lymphocytes % (Manual) 2.0 L Seg Neutrophils # Man 13.3 H Lymphocytes # (Manual) 0.3 L Sodium 136 L Chloride 97.7 L BUN 30 H Glucose 206 H POC Glucose 206 H 02/13/17 02/13/17 02/13/17 06:18 11:38 16:20 WBC RDW Seg Neuts % (Manual) Lymphocytes % (Manual) Seg Neutrophils # Man Lymphocytes # (Manual) Sodium Chloride BUN Glucose POC Glucose 203 H 203 H 193 H
[2017-02-13] MEDS: LASIX IV SCH (21:26)
[2017-02-13] MEDS: LEVAQUIN 750MG/150ML 750 MG/150 ML BAG IV SCH (21:28)
[2017-02-13] MEDS: LEVEMIR SUB-Q SCH (22:11)
[2017-02-14] MEDS: DUONEB 0.5 MG-3 MG/3 ML SOLN IH SCH ×4 (01:47→20:19)
[2017-02-14 05:44] LABS: Basophils % (Auto) 0.3 % (0.0-1.8); Hematocrit 39.5 % (35.5-45.6); Hemoglobin 12.7 gm/dl (11.8-15.2); Mean Corpuscular HGB Conc 32 % (32-34); Mean Corpuscular Hemoglobin 29 pg (28-32); Mean Corpuscular Volume 90 fl (84-94); Platelet Count 138 K/mm3 (140-440); Red Blood Count 4.38 M/mm3 (3.65-5.03); Red Cell Distribution Width 18.1 % (13.2-15.2); White Blood Count 12.8 K/mm3 (4.5-11.0)
[2017-02-14 06:35] LABS: BUN/Creatinine Ratio 23.57; Calcium 8.5 mg/dL (8.4-10.2); Chloride 98.5 mmol/L (98-107); Potassium 4.4 mmol/L (3.6-5.0)
--- NOTE | 2017-02-14 08:28 | Consultation ---
History of Present Illness Consult date: 02/14/17 Consult reason: congestive heart failure History of present illness: This is a 46yr old male with multiple medical problems who presented to this hospital with shortness of breath, wheezing and lower extremity edema. Of note patient was hospitalized a week ago for systolic heart failure and COPD exacerbation. Patient is unsure how much weight he has gained since his discharge. He denies chest pain. He denies AICD shock. Cardiac consultation requested for CHF management. Medications and Allergies Allergies Allergy/AdvReac Type Severity Reaction Status Date / Time cephalexin monohydrate Allergy Hives Verified 03/09/15 22:20 [From Keflex] lidocaine Allergy Hives Verified 03/09/15 22:20 mushrooms Allergy Swelling Uncoded 06/26/15 12:23 Home Medications Medication Instructions Recorded Confirmed Last Taken Type Ferrous Sulfate [Feosol 325 MG tab] 325 mg PO BID 05/19/15 02/11/17 02/11/17 History Allopurinol [Zyloprim] 100 mg PO BID 08/31/16 02/11/17 02/11/17 History Magnesium Oxide 400 mg PO DAILY 08/31/16 02/11/17 02/11/17 History Amiodarone 200 mg PO DAILY #30 12/14/16 02/11/17 02/11/17 Rx Aspirin [Aspirin TAB] 325 mg PO QDAY #30 tablet 12/14/16 02/11/17 02/11/17 Rx Carvedilol [Coreg] 25 mg PO BID #60 tablet 12/14/16 02/11/17 02/11/17 Rx ISOSORBIDE MONOnitrate [Imdur ER] 30 mg PO DAILY #30 tablet 12/14/16 02/11/17 Rx Lisinopril [Zestril TAB] 20 mg PO BID #60 tablet 12/14/16 02/11/17 02/11/17 Rx Spironolactone [Aldactone] 25 mg PO BID #30 tablet 12/14/16 02/11/17 02/11/17 Rx glipiZIDE [Glucotrol] 10 mg PO QDAY #30 tablet 12/14/16 02/11/17 02/11/17 Rx ALBUTEROL Inhaler [ProAir HFA 2 puff IH QID PRN #1 inhalation 02/05/17 02/11/1717 Rx Inhaler] Furosemide [Lasix TAB] 80 mg PO QDAY #30 tablet 02/05/17 02/11/17 02/11/17 Rx Prednisone [predniSONE 10 mg 10 mg PO .TAPER #1 tab.ds.pk 02/05/17 02/11/17 Rx (6-Day Pack, 21 Tabs)] Tiotropium [place] [Spiriva 4 gm IH DAILY #1 mist.inhal 02/05/17 02/11/17 Rx Respimat] guaiFENesin/CODEINE [Robitussin AC] 10 ml PO Q4H PRN #240 ml 02/05/17 02/11/17 02/11/17 Rx HYDROcodone/APAP 5-325 [[place] 1 each PO Q4H PRN #30 tablet 02/06/17 02/11/17 Rx 5-325 mg TAB] Insulin Glargine,Hum.rec.anlog 20 units SQ QHS #5 pen 02/06/17 02/11/17 Rx [Lantus Solostar] Active Meds: Active Medications Acetaminophen/Hydrocodone Bitart ([place] 5/325) 1 each PO Q4H PRN PRN Reason: Pain, Moderate (4-6) Albuterol (Proventil) 2.5 mg IH Q4HRT PRN PRN Reason: Shortness Of Breath Last Admin: 02/12/17 02:22 Dose: 2.5 mg Albuterol/Ipratropium (Duoneb 0.5 Mg-3 Mg/3 Ml Soln) 1 ampul IH Q6HRT [facility] Last Admin: 02/14/17 01:47 Dose: 1 ampul Allopurinol (Zyloprim) 100 mg PO BID [facility] Last Admin: 02/13/17 21:28 Dose: 100 mg Amiodarone HCl (Cordarone) 200 mg PO QDAY [facility] Last Admin: 02/13/17 11:05 Dose: 200 mg Aspirin (Aspirin) 325 mg PO QDAY [facility] Last Admin: 02/13/17 11:07 Dose: 325 mg Carvedilol (Coreg) 25 mg PO BID [facility] Last Admin: 02/13/17 21:27 Dose: 25 mg Enoxaparin Sodium (Lovenox) 40 mg SUB-Q QDAY [facility] Last Admin: 02/13/17 11:07 Dose: 40 mg Ferrous Sulfate (Feosol) 325 mg PO BID [facility] Last Admin: 02/13/17 21:26 Dose: 325 mg Furosemide (Lasix) 80 mg IV QDAY [facility] Last Admin: 02/13/17 21:26 Dose: 80 mg Glipizide (Glucotrol) 10 mg PO QDDIAB [facility] Last Admin: 02/13/17 11:12 Dose: 10 mg Insulin Aspart (Novolog) 0 units SUB-Q ACHS [facility] PRN Reason: Protocol Last Admin: 02/13/17 22:10 Dose: 2 units Insulin Detemir (Levemir) 20 units SUB-Q QHS [facility] Last Admin: 02/13/17 22:11 Dose: 20 units Isosorbide Mononitrate (Imdur) 30 mg PO DAILY [facility] Last Admin: 02/13/17 11:04 Dose: 30 mg Levofloxacin (Levaquin) 750 mg PO DAILY@2200 [facility] Lisinopril (Zestril) 20 mg PO BID [facility] Last Admin: 02/13/17 21:26 Dose: 20 mg Magnesium Oxide (Mag-Ox) 400 mg PO DAILY [facility] Last Admin: 02/13/17 11:05 Dose: 400 mg Methylprednisolone Sodium Succinate (Solu-Medrol) 60 mg IV Q8H [facility] Last Admin: 02/14/17 06:20 Dose: 60 mg Pseudoephedrine/Acetam/Chlorphenir (Robitussin Ac) 10 ml PO Q4H PRN PRN Reason: Cough Spironolactone (Aldactone) 25 mg PO BID [facility] Last Admin: 02/13/17 21:27 Dose: 25 mg Physical Examination Vital Signs Temp Pulse Resp BP Pulse Ox 98.3 F 71 18 122/68 99 02/11/17 14:32 02/11/17 14:32 02/11/17 14:32 02/11/17 14:32 02/11/17 14:32 General appearance: no acute distress HEENT: Positive: PERRL Neck: Positive: trachea midline Cardiac: Positive: Other (AV paced) Lungs: Positive: Decreased Breath Sounds Neuro: Positive: Grossly Intact Extremities: Present: +2 Edema Results 02/14/17 05:22 02/14/17 05:22 CBC 02/14/17 Range/Units 05:22 WBC 12.8 H (4.5-11.0) K/mm3 RBC 4.38 (3.65-5.03) M/mm3 Hgb 12.7 (11.8-15.2) gm/dl Hct 39.5 (35.5-45.6) % Plt Count 138 L (140-440) K/mm3 Lymph # 0.5 L (1.2-5.4) K/mm3 [place] # 0.8 (0.0-0.8) K/mm3 Eos # 0.0 (0.0-0.4) K/mm3 Baso # 0.0 (0.0-0.1) K/mm3 Comprehensive Metabolic Panel 02/14/17 Range/Units 05:22 Sodium 136 L (137-145) mmol/L Potassium 4.4 (3.6-5.0) mmol/L Chloride 98.5 (98-107) mmol/L Carbon Dioxide 26 (22-30) mmol/L BUN 33 H (9-20) mg/dL Creatinine 1.4 (0.8-1.5) mg/dL Glucose 218 H (75-100) mg/dL Calcium 8.5 (8.4-10.2) mg/dL Assessment and Plan Shortness of breath - multifactorial COPD exacerbation Acute systolic heart failure Presence of automatic (implantable) cardiac defibrillator ([employer]) AV paced on ECG Hx of Dilated non ischemic cardiomyopathy at least moderate MR with an EF 10-15% on echo 10/2016 normal coronaries by [facility] 09/2015 [place] Obese Hx of VT/VF -on amiodarone Hypertension
[2017-02-14] MEDS: GLUCOTROL PO SCH (08:41)
[2017-02-14] MEDS: NOVOLOG SUB-Q SCH ×4 (08:41→22:00)
[2017-02-14] MEDS: FEOSOL PO SCH ×2 (09:48→22:35)
[2017-02-14] MEDS: IMDUR PO SCH (09:49)
[2017-02-14] MEDS: ASPIRIN PO SCH (09:49)
[2017-02-14] MEDS: ZESTRIL PO SCH ×2 (09:49→22:34)
[2017-02-14] MEDS: LASIX IV SCH (09:49)
[2017-02-14] MEDS: ALDACTONE PO SCH ×2 (09:50→22:48)
[2017-02-14] MEDS: MAG-OX PO SCH (09:50)
[2017-02-14] MEDS: ZYLOPRIM PO SCH ×2 (09:50→22:34)
[2017-02-14] MEDS: CORDARONE PO SCH (09:50)
[2017-02-14] MEDS: LOVENOX SUB-Q SCH (09:50)
[2017-02-14] MEDS: COREG PO SCH ×2 (09:51→22:35)
--- NOTE | 2017-02-14 10:28 | Progress Note ---
Assessment and Plan Assessment and plan: Acute systolic heart failure exacerbation. Continue IV diuresis and afterload reduction. Continue on the heart failure pathway. Ensure patient with medications of torsemide and metolazone at discharge per cardiology recommendations. Cardiology following. Acute COPD exacerbation. Continue nebulizer, IV steroids and IV antibiotics. Acute hypoxic respiratory failure. Etiology is multifactorial. Continue to treat underlying causes. Pulmonary following. [place]. Continue CPAP at bedtime. Diabetes mellitus type 2. Continue Lantus, sliding scale regular insulin and Accu-Cheks. Follow up hemoglobin A1c. Morbid obesity. Patient to be counseled regarding bariatric surgery. Cardiac dysrhythmia. Continue amiodarone. Gout. Continue allopurinol 100 mg by mouth twice a day. Anemia. Follow H&H and transfuse for hemoglobin less than 7.0. DVT prophylaxis. Lovenox daily. History Interval history: Patient still complains of dyspnea. Patient complains of lower extremity swelling bilaterally. Hospitalist Physical - Constitutional Vitals: Temp Pulse Resp BP Pulse Ox 98.0 F 82 20 124/73 100 02/14/17 08:04 02/14/17 08:04 02/14/17 08:04 02/14/17 08:04 02/14/17 08:04 General appearance: Present: no acute distress - EENT Eyes: Present: PERRL, EOM intact ENT: hearing intact, clear oral mucosa, dentition normal - Neck Neck: Present: supple, normal ROM - Respiratory Respiratory effort: normal Respiratory: bilateral: CTA - Cardiovascular Rhythm: regular Heart Sounds: Present: S1 & S2. Absent: gallop, rub - Extremities Extremities: no ischemia, No edema, Full ROM Extremity abnormal: edema (2+) - Abdominal General gastrointestinal: soft, non-tender, non-distended, normal bowel sounds - Integumentary Integumentary: Present: clear, warm, dry - Neurologic Neurologic: CNII-XII intact, moves all extremities Results - Labs CBC & Chem 7: 02/14/17 05:22 02/14/17 05:22 Labs: Laboratory Last Values WBC 12.8 K/mm3 (4.5-11.0) H 02/14/17 05:22 RBC 4.38 M/mm3 (3.65-5.03) 02/14/17 05:22 Hgb 12.7 gm/dl (11.8-15.2) 02/14/17 05:22 Hct 39.5 % (35.5-45.6) 02/14/17 05:22 MCV 90 fl (84-94) 02/14/17 05:22 MCH 29 pg (28-32) 02/14/17 05:22 MCHC 32 % (32-34) 02/14/17 05:22 RDW 18.1 % (13.2-15.2) H 02/14/17 05:22 Plt Count 138 K/mm3 (140-440) L 02/14/17 05:22 Lymph % (Auto) 4.2 % (13.4-35.0) L 02/14/17 05:22 [place] % (Auto) 6.0 % (0.0-7.3) 02/14/17 05:22 Eos % (Auto) 0.0 % (0.0-4.3) 02/14/17 05:22 Baso % (Auto) 0.3 % (0.0-1.8) 02/14/17 05:22 Lymph # 0.5 K/mm3 (1.2-5.4) L 02/14/17 05:22 [place] # 0.8 K/mm3 (0.0-0.8) 02/14/17 05:22 Eos # 0.0 K/mm3 (0.0-0.4) 02/14/17 05:22 Baso # 0.0 K/mm3 (0.0-0.1) 02/14/17 05:22 Add Manual Diff Complete 02/13/17 06:01 Total Counted 100 02/13/17 06:01 Seg Neutrophils % 89.5 % (40.0-70.0) H 02/14/17 05:22 Seg Neuts % (Manual) 94.0 % (40.0-70.0) H 02/13/17 06:01 Band Neutrophils % 0 % 02/13/17 06:01 Lymphocytes % (Manual) 2.0 % (13.4-35.0) L 02/13/17 06:01 Reactive Lymphs % (Man) 0 % 02/13/17 06:01 Monocytes % (Manual) 4.0 % (0.0-7.3) 02/13/17 06:01 Eosinophils % (Manual) 0 % (0.0-4.3) 02/13/17 06:01 Basophils % (Manual) 0 % (0.0-1.8) 02/13/17 06:01 Metamyelocytes % 0 % 02/13/17 06:01 Myelocytes % 0 % 02/13/17 06:01 Promyelocytes % 0 % 02/13/17 06:01 Blast Cells % 0 % 02/13/17 06:01 Nucleated RBC % Not Reportable 02/13/17 06:01 Seg Neutrophils # 11.5 K/mm3 (1.8-7.7) H 02/14/17 05:22 Seg Neutrophils # Man 13.3 K/mm3 (1.8-7.7) H 02/13/17 06:01 Band Neutrophils # 0.0 K/mm3 02/13/17 06:01 Lymphocytes # (Manual) 0.3 K/mm3 (1.2-5.4) L 02/13/17 06:01 Abs React Lymphs (Man) 0.0 K/mm3 02/13/17 06:01 Monocytes # (Manual) 0.6 K/mm3 (0.0-0.8) 02/13/17 06:01 Eosinophils # (Manual) 0.0 K/mm3 (0.0-0.4) 02/13/17 06:01 Basophils # (Manual) 0.0 K/mm3 (0.0-0.1) 02/13/17 06:01 Metamyelocytes # 0.0 K/mm3 02/13/17 06:01 Myelocytes # 0.0 K/mm3 02/13/17 06:01 Promyelocytes # 0.0 K/mm3 02/13/17 06:01 Blast Cells # 0.0 K/mm3 02/13/17 06:01 WBC Morphology Not Reportable 02/13/17 06:01 Hypersegmented Neuts Not Reportable 02/13/17 06:01 Hyposegmented Neuts Not Reportable 02/13/17 06:01 Hypogranular Neuts Not Reportable 02/13/17 06:01 Smudge Cells Not Reportable 02/13/17 06:01 Toxic Granulation Not Reportable 02/13/17 06:01 Toxic Vacuolation Not Reportable 02/13/17 06:01 Dohle Bodies Not Reportable 02/13/17 06:01 Pelger-Huet Anomaly Not Reportable 02/13/17 06:01 Kanika Rods Not Reportable 02/13/17 06:01 Platelet Estimate Appears normal 02/13/17 06:01 Clumped Platelets Not Reportable 02/13/17 06:01 Plt Clumps, EDTA Not Reportable 02/13/17 06:01 Large Platelets Not Reportable 02/13/17 06:01 Giant Platelets Not Reportable 02/13/17 06:01 Platelet Satelliting Not Reportable 02/13/17 06:01 Plt Morphology Comment Not Reportable 02/13/17 06:01 RBC Morphology Not Reportable 02/13/17 06:01 Dimorphic RBCs Not Reportable 02/13/17 06:01 Polychromasia 1+ 02/13/17 06:01 Hypochromasia Not Reportable 02/13/17 06:01 Poikilocytosis 1+ 02/13/17 06:01 Anisocytosis 1+ 02/13/17 06:01 Microcytosis Not Reportable 02/13/17 06:01 Macrocytosis Not Reportable 02/13/17 06:01 Spherocytes Not Reportable 02/13/17 06:01 Pappenheimer Bodies Not Reportable 02/13/17 06:01 Sickle Cells Not Reportable 02/13/17 06:01 Target Cells Rare 02/13/17 06:01 Tear Drop Cells Not Reportable 02/13/17 06:01 Ovalocytes Not Reportable 02/13/17 06:01 Helmet Cells Rare 02/13/17 06:01 [place] Bodies Not Reportable 02/13/17 06:01 [place] Rings Not Reportable 02/13/17 06:01 Patricia Cells 1+ 02/13/17 06:01 Bite Cells Not Reportable 02/13/17 06:01 Crenated Cell Not Reportable 02/13/17 06:01 Elliptocytes Not Reportable 02/13/17 06:01 Acanthocytes (Spur) Rare 02/13/17 06:01 Rouleaux Not Reportable 02/13/17 06:01 Hemoglobin C Crystals Not Reportable 02/13/17 06:01 Schistocytes Not Reportable 02/13/17 06:01 Malaria parasites Not Reportable 02/13/17 06:01 [place] Bodies Not Reportable 02/13/17 06:01 Hem Pathologist Commnt No 02/13/17 06:01 Sodium 136 mmol/L (137-145) L 02/14/17 05:22 Potassium 4.4 mmol/L (3.6-5.0) 02/14/17 05:22 Chloride 98.5 mmol/L (98-107) 02/14/17 05:22 Carbon Dioxide 26 mmol/L (22-30) 02/14/17 05:22 Anion Gap 16 mmol/L 02/14/17 05:22 BUN 33 mg/dL (9-20) H 02/14/17 05:22 Creatinine 1.4 mg/dL (0.8-1.5) 02/14/17 05:22 Estimated GFR 54 ml/min 02/14/17 05:22 BUN/Creatinine Ratio 23.57 % 02/14/17 05:22 Glucose 218 mg/dL (75-100) H 02/14/17 05:22 POC Glucose 206 (70-105) H 02/14/17 06:31 Calcium 8.5 mg/dL (8.4-10.2) 02/14/17 05:22 Troponin T < 0.010 ng/mL (0.00-0.029) 02/11/17 15:01 NT-Pro-B Natriuret Pep 7033 pg/mL (0-450) H 02/11/17 15:01
--- NOTE | 2017-02-14 21:53 | Progress Note ---
Assessment and Plan Patient awake and sitting up in chair. Resting on room air.O2 satuaration 98% .Says breathing better. - Patient Problems (1) Acute exacerbation of chronic obstructive pulmonary disease (COPD) Current Visit: Yes Status: Acute Plan to address problem: 1. O2 2 LITRES VIA NASAL CANULA. 2. CPAP 20 CM H20 PRESSURE DURING NIGHT TIME. 3. ALBUTEROL/ATROVENT AEROSOL TREATMENTS Q 6 HOURS. 4. CONTINUE I/V SOLUMEDRAL. 5. CONTINUE LEVAQUINE 6. RECOMMEND S/C LOVENOX. (2) Acute CHF (congestive heart failure) Current Visit: Yes Status: Acute Qualifiers: Congestive heart failure type: systolic Qualified Code(s): I50.21 - Acute systolic (congestive) heart failure Plan to address problem: Management as per cardiology. (3) Sleep apnea, obstructive Current Visit: Yes Status: Acute Plan to address problem: Continue CPAP. (4) Morbid obesity due to excess calories Current Visit: No Status: Chronic Plan to address problem: Recommend to loose weight. Consult roof fitter for weight reduction diet. (5) Dilated cardiomyopathy Current Visit: No Status: Chronic Plan to address problem: Management as per cardiology. (6) Cardiac defibrillator in place Current Visit: No Status: Chronic (7) HTN (hypertension) Current Visit: No Status: Chronic Qualifiers: Hypertension type: essential hypertension Qualified Code(s): I10 - Essential (primary) hypertension Plan to address problem: Management as per primary care. (8) Diabetes Current Visit: No Status: Acute Qualifiers: Diabetes mellitus type: type 2 Diabetes mellitus complication status: with circulatory complication Diabetes mellitus complication detail: D Diabetic retinopathy severity: D Proliferative retinopathy type: P Diabetes mellitus macular edema: D Diabetes mellitus shelter insulin use: D Laterality: L Chronic kidney disease stage: C Plan to address problem: Management as per primary care. Subjective Date of service: 02/14/17 Interval history: Patient awake and sitting up in chair. Resting on room air.O2 satuaration 98% .Says breathing better. Objective Vital Signs - 12hr 02/14/17 02/14/17 02/14/17 11:28 13:10 13:35 Temperature 98.5 F Pulse Rate [ 88 84 Anterior Bilateral Throughout] Pulse Rate [ 72 Right From Monitor] Respiratory 20 Rate Respiratory 18 20 Rate [Anterior Bilateral Throughout] Blood Pressure 131/73 [Right Arm] O2 Sat by Pulse 98 Oximetry 02/14/17 02/14/17 02/14/17 16:13 20:20 20:30 Temperature 98.0 F Pulse Rate [ 81 72 Anterior Bilateral Throughout] Pulse Rate [ 70 Right From Monitor] Respiratory 20 Rate Respiratory 20 20 Rate [Anterior Bilateral Throughout] Blood Pressure 134/78 [Right Arm] O2 Sat by Pulse 98 Oximetry Constitutional: no acute distress, alert Eyes: non-icteric ENT: oropharynx moist Neck: supple, no lymphadenopathy Ascultation: Bilateral: diminished breath sounds, wheezes Cardiovascular: regular rate and rhythm Gastrointestinal: normoactive bowel sounds, soft, non-tender Integumentary: normal Extremities: no cyanosis, other (Trace edema.) Neurologic: normal mental status, non-focal exam, pupils equal and round, CN II- XII normal Psychiatric: mood appropriate CBC and BMP: 02/14/17 05:22 02/14/17 05:22 Abnormal lab findings: Abnormal Labs 02/11/17 02/12/17 02/12/17 21:06 05:56 11:32 WBC RDW Plt Count Lymph % (Auto) Lymph # Seg Neutrophils % Seg Neuts % (Manual) Lymphocytes % (Manual) Seg Neutrophils # Seg Neutrophils # Man Lymphocytes # (Manual) Sodium Chloride BUN Glucose POC Glucose 173 H 163 H 253 H 02/12/17 02/12/17 02/13/17 16:35 21:49 06:01 WBC 14.1 H RDW 18.4 H Plt Count Lymph % (Auto) Lymph # Seg Neutrophils % Seg Neuts % (Manual) 94.0 H Lymphocytes % (Manual) 2.0 L Seg Neutrophils # Seg Neutrophils # Man 13.3 H Lymphocytes # (Manual) 0.3 L Sodium Chloride BUN Glucose POC Glucose 166 H 206 H 02/13/17 02/13/17 02/13/17 06:01 06:18 11:38 WBC RDW Plt Count Lymph % (Auto) Lymph # Seg Neutrophils % Seg Neuts % (Manual) Lymphocytes % (Manual) Seg Neutrophils # Seg Neutrophils # Man Lymphocytes # (Manual) Sodium 136 L Chloride 97.7 L BUN 30 H Glucose 206 H POC Glucose 203 H 203 H 02/13/17 02/13/17 02/14/17 16:20 21:18 05:22 WBC 12.8 H RDW 18.1 H Plt Count 138 L Lymph % (Auto) 4.2 L Lymph # 0.5 L Seg Neutrophils % 89.5 H Seg Neuts % (Manual) Lymphocytes % (Manual) Seg Neutrophils # 11.5 H Seg Neutrophils # Man Lymphocytes # (Manual) Sodium Chloride BUN Glucose POC Glucose 193 H 205 H 02/14/17 02/14/17 02/14/17 05:22 06:31 11:04 WBC RDW Plt Count Lymph % (Auto) Lymph # Seg Neutrophils % Seg Neuts % (Manual) Lymphocytes % (Manual) Seg Neutrophils # Seg Neutrophils # Man Lymphocytes # (Manual) Sodium 136 L Chloride BUN 33 H Glucose 218 H POC Glucose 206 H 243 H 02/14/17 15:54 WBC RDW Plt Count Lymph % (Auto) Lymph # Seg Neutrophils % Seg Neuts % (Manual) Lymphocytes % (Manual) Seg Neutrophils # Seg Neutrophils # Man Lymphocytes # (Manual) Sodium Chloride BUN Glucose POC Glucose 266 H
[2017-02-14] MEDS: LEVAQUIN PO SCH (22:35)
[2017-02-14] MEDS: LEVEMIR SUB-Q SCH (22:39)
[2017-02-15] MEDS: DUONEB 0.5 MG-3 MG/3 ML SOLN IH SCH ×4 (03:04→20:17)
[2017-02-15 07:08] LABS: Hematocrit 39.6 % (35.5-45.6); Hemoglobin 12.7 gm/dl (11.8-15.2); Mean Corpuscular HGB Conc 32 % (32-34); Mean Corpuscular Hemoglobin 29 pg (28-32); Mean Corpuscular Volume 90 fl (84-94); Platelet Count 128 K/mm3 (140-440); Red Cell Distribution Width 18.7 % (13.2-15.2); White Blood Count 13.7 K/mm3 (4.5-11.0)
--- NOTE | 2017-02-15 07:14 | Consultation ---
CONSULTED BY: Kike Garcia MD. REASON FOR CONSULTATION: Acute exacerbation of chronic obstructive pulmonary disease. HISTORY OF PRESENT ILLNESS: Dr. Garcia thank you for asking me to participate in the care of this patient. This is a 46-year-old white male admitted with shortness of breath. The patient has a history of COPD, sleep apnea, CHF, AICD, hypertension, diabetes, and CKD. The patient is also complaining of some cough. Denied chest pain. The patient is complaining about peripheral edema. The patient has a history of smoking 1 pack for 30 years. She stopped smoking 1-1/2 years ago. Denies alcohol or drug abuse. She is , children 1. She does not work and spends most of her time in retirement. ALLERGIES: SHE IS ALLERGIC TO KEFLEX AND LIDOCAINE. The patient has CPAP at home at 20 cm of H2O pressure. PHYSICAL EXAMINATION: GENERAL: The patient is morbidly obese. Mild shortness of breath. VITAL SIGNS: Temperature is 97.6, pulse 71, respirations 18, and blood pressure is 130/89. EYES: Pupils are equal and reactive. Extraocular muscles intact. NECK: Short and supple. Throat crowded. LUNGS: No wheezes. No rhonchi. Prolonged expiratory phase. ABDOMEN: Obese, soft, and bowel sounds present. No CVA tenderness. MUSCULOSKELETAL: There is edema of 1+. No calf tenderness. NEUROLOGICAL: DTRs are present. Babinski negative. No focal neurological deficits. LABORATORY DATA: The patient's CBC, WBC 17.1, hemoglobin 13, hematocrit 39.5, and platelet count 163,000. The patient's BNP, sodium 138, potassium 3.7, BUN 18, creatinine 1.1, calcium 8.5, and proBNP 7033. DIAGNOSTIC DATA: The patient's chest x-ray reported cardiomegaly and pulmonary venous congestion. IMPRESSION: 1. Acute exacerbation of chronic obstructive pulmonary disease. 2. Exacerbation of congestive heart failure. 3. Morbid obesity. 4. Sleep apnea. 5. Cardiomyopathy status post cardiac defibrillator implantation. 6. Diabetes. 7. Hypertension. PLAN: 1. O2 2 liters via nasal cannula. 2. CPAP 20 cm H2O pressure during nighttime. 3. Albuterol and Atrovent aerosol treatments q.6 hours. 4. Continue IV Solu-Medrol. 5. Continue Levaquin. 6. Recommend subcutaneous Lovenox. I want to thank Dr. Garcia for this consultation. I will follow the patient with him. JOB# [id number] LESTER/BEATA
[2017-02-15 07:23] LABS: BUN/Creatinine Ratio 25.33; Calcium 8.7 mg/dL (8.4-10.2); Chloride 99.1 mmol/L (98-107); Potassium 4.6 mmol/L (3.6-5.0)
[2017-02-15 08:38] LABS: Basophils % (Manual) 0 % (0.0-1.8); Blastocytes % (Manual) 0 %; Diff Status Complete; Eosinophils % (Manual) 0 % (0.0-4.3); Platelet Estimate Appears Decreased; RBC Morphology Normal
[2017-02-15] MEDS: NOVOLOG SUB-Q SCH ×4 (09:08→23:55)
--- NOTE | 2017-02-15 09:25 | Progress Note ---
Assessment and Plan Shortness of breath - multifactorial COPD exacerbation Acute systolic heart failure Presence of automatic (implantable) cardiac defibrillator ([employer]) AV paced on ECG Hx of Dilated non ischemic cardiomyopathy at least moderate MR with an EF 10-15% on echo 10/[address] [facility] 09/2015 [place] Obese Hx of VT/VF -on amiodarone Hypertension Thrombocytopenia Recommendations: Continue IV Diuresis and afterload reduction Daily labs. Strict I's and O's. Daily weights. Subjective Date of service: 02/15/17 Interval history: Patient resting in bed comfortably. No cardiac events reported overnight. Objective Vital Signs Temp Pulse Pulse Pulse Resp Resp BP 02/15/17 08:00 97.9 F 20 02/15/17 02:32 75 20 02/15/17 02:22 73 20 02/14/17 22:48 73 160/93 02/14/17 22:35 73 160/93 02/14/17 22:34 73 160/93 02/14/17 22:00 97.7 F 73 20 02/14/17 20:30 72 20 02/14/17 20:20 81 20 02/14/17 16:13 98.0 F 70 20 02/14/17 13:35 84 20 02/14/17 13:10 88 18 02/14/17 11:28 98.5 F 72 20 BP Pulse Ox 02/15/17 08:00 159/92 97 02/15/17 02:32 02/15/17 02:22 02/14/17 22:48 02/14/17 22:35 02/14/17 22:34 02/14/17 22:00 160/93 99 02/14/17 20:30 02/14/17 20:20 02/14/17 16:13 134/78 98 02/14/17 13:35 02/14/17 13:10 02/14/17 11:28 131/73 98 - Physical Examination General: No Apparent Distress Cardiac: Positive: Other (AV paced) Neuro: Positive: Grossly Intact Extremities: Present: +2 Edema - Labs and Meds CBC 02/15/17 Range/Units 05:36 WBC 13.7 H (4.5-11.0) K/mm3 RBC 4.40 (3.65-5.03) M/mm3 Hgb 12.7 (11.8-15.2) gm/dl Hct 39.6 (35.5-45.6) % Plt Count 128 L (140-440) K/mm3 Comprehensive Metabolic Panel 02/15/17 Range/Units 05:36 Sodium 138 (137-145) mmol/L Potassium 4.6 (3.6-5.0) mmol/L Chloride 99.1 (98-107) mmol/L Carbon Dioxide 26 (22-30) mmol/L BUN 38 H (9-20) mg/dL Creatinine 1.5 (0.8-1.5) mg/dL Glucose 172 H (75-100) mg/dL Calcium 8.7 (8.4-10.2) mg/dL
[2017-02-15] MEDS: ZESTRIL PO SCH ×2 (09:27→22:30)
[2017-02-15] MEDS: COREG PO SCH ×2 (09:27→22:31)
[2017-02-15] MEDS: IMDUR PO SCH (09:27)
[2017-02-15] MEDS: ALDACTONE PO SCH ×2 (09:27→22:29)
[2017-02-15] MEDS: GLUCOTROL PO SCH (09:27)
[2017-02-15] MEDS: LOVENOX SUB-Q SCH (09:28)
[2017-02-15] MEDS: ASPIRIN PO SCH (09:28)
[2017-02-15] MEDS: CORDARONE PO SCH (09:28)
[2017-02-15] MEDS: MAG-OX PO SCH (09:28)
[2017-02-15] MEDS: FEOSOL PO SCH ×2 (09:28→22:32)
[2017-02-15] MEDS: ZYLOPRIM PO SCH ×2 (09:28→22:31)
[2017-02-15] MEDS: LASIX IV SCH (09:29)
--- NOTE | 2017-02-15 10:26 | Progress Note ---
Assessment and Plan Assessment and plan: Acute systolic heart failure exacerbation. Continue IV diuresis and afterload reduction. Continue on the heart failure pathway. Ensure patient with medications of torsemide and metolazone at discharge per cardiology recommendations. Cardiology following. History of dilated nonischemic cardiomyopathy. Patient with moderate MR and EF of 10-15% on echocardiogram October 2016. Normal coronaries by [facility] 09/2015. Acute COPD exacerbation. Continue nebulizer, IV steroids and IV antibiotics. Acute hypoxic respiratory failure. Etiology is multifactorial. Continue to treat underlying causes. Pulmonary following. [place]. Continue CPAP at bedtime. Diabetes mellitus type 2. Continue Lantus, sliding scale regular insulin and Accu-Cheks. Follow up hemoglobin A1c. Morbid obesity. Patient to be counseled regarding bariatric surgery. History of VT/VF. Continue amiodarone. Patient with AICD. Gout. Continue allopurinol 100 mg by mouth twice a day. Anemia. Follow H&H and transfuse for hemoglobin less than 7.0. DVT prophylaxis. Lovenox daily. History Interval history: Patient still complains of dyspnea. Patient complains of lower extremity swelling bilaterally. No new issues overnight. Hospitalist Physical - Constitutional Vitals: Temp Pulse Resp BP Pulse Ox 97.9 F 75 20 159/92 97 02/15/17 08:00 02/15/17 02:32 02/15/17 08:00 02/15/17 08:00 02/15/17 08:00 General appearance: Present: no acute distress - EENT Eyes: Present: PERRL, EOM intact ENT: hearing intact, clear oral mucosa, dentition normal - Neck Neck: Present: supple, normal ROM - Respiratory Respiratory effort: normal Respiratory: bilateral: CTA - Cardiovascular Rhythm: regular Heart Sounds: Present: S1 & S2. Absent: gallop, rub - Extremities Extremities: no ischemia, Full ROM Extremity abnormal: edema (3+) - Abdominal General gastrointestinal: soft, non-tender, non-distended, normal bowel sounds - Integumentary Integumentary: Present: clear, warm, dry - Neurologic Neurologic: CNII-XII intact, moves all extremities Results - Labs CBC & Chem 7: 02/15/17 05:36 02/15/17 05:36 Labs: Laboratory Last Values WBC 13.7 K/mm3 (4.5-11.0) H 02/15/17 05:36 RBC 4.40 M/mm3 (3.65-5.03) 02/15/17 05:36 Hgb 12.7 gm/dl (11.8-15.2) 02/15/17 05:36 Hct 39.6 % (35.5-45.6) 02/15/17 05:36 MCV 90 fl (84-94) 02/15/17 05:36 MCH 29 pg (28-32) 02/15/17 05:36 MCHC 32 % (32-34) 02/15/17 05:36 RDW 18.7 % (13.2-15.2) H 02/15/17 05:36 Plt Count 128 K/mm3 (140-440) L 02/15/17 05:36 Lymph % (Auto) 4.2 % (13.4-35.0) L 02/14/17 05:22 [place] % (Auto) 6.0 % (0.0-7.3) 02/14/17 05:22 Eos % (Auto) 0.0 % (0.0-4.3) 02/14/17 05:22 Baso % (Auto) 0.3 % (0.0-1.8) 02/14/17 05:22 Lymph # 0.5 K/mm3 (1.2-5.4) L 02/14/17 05:22 [place] # 0.8 K/mm3 (0.0-0.8) 02/14/17 05:22 Eos # 0.0 K/mm3 (0.0-0.4) 02/14/17 05:22 Baso # 0.0 K/mm3 (0.0-0.1) 02/14/17 05:22 Add Manual Diff Complete 02/15/17 05:36 Total Counted 100 02/15/17 05:36 Seg Neutrophils % Sanipractic Physician 02/15/17 05:36 Seg Neuts % (Manual) 98.0 % (40.0-70.0) H 02/15/17 05:36 Band Neutrophils % 0 % 02/15/17 05:36 Lymphocytes % (Manual) 1.0 % (13.4-35.0) L 02/15/17 05:36 Reactive Lymphs % (Man) 0 % 02/15/17 05:36 Monocytes % (Manual) 1.0 % (0.0-7.3) 02/15/17 05:36 Eosinophils % (Manual) 0 % (0.0-4.3) 02/15/17 05:36 Basophils % (Manual) 0 % (0.0-1.8) 02/15/17 05:36 Metamyelocytes % 0 % 02/15/17 05:36 Myelocytes % 0 % 02/15/17 05:36 Promyelocytes % 0 % 02/15/17 05:36 Blast Cells % 0 % 02/15/17 05:36 Nucleated RBC % Not Reportable 02/15/17 05:36 Seg Neutrophils # 11.5 K/mm3 (1.8-7.7) H 02/14/17 05:22 Seg Neutrophils # Man 13.4 K/mm3 (1.8-7.7) H 02/15/17 05:36 Band Neutrophils # 0.0 K/mm3 02/15/17 05:36 Lymphocytes # (Manual) 0.1 K/mm3 (1.2-5.4) L 02/15/17 05:36 Abs React Lymphs (Man) 0.0 K/mm3 02/15/17 05:36 Monocytes # (Manual) 0.1 K/mm3 (0.0-0.8) 02/15/17 05:36 Eosinophils # (Manual) 0.0 K/mm3 (0.0-0.4) 02/15/17 05:36 Basophils # (Manual) 0.0 K/mm3 (0.0-0.1) 02/15/17 05:36 Metamyelocytes # 0.0 K/mm3 02/15/17 05:36 Myelocytes # 0.0 K/mm3 02/15/17 05:36 Promyelocytes # 0.0 K/mm3 02/15/17 05:36 Blast Cells # 0.0 K/mm3 02/15/17 05:36 WBC Morphology Not Reportable 02/15/17 05:36 Hypersegmented Neuts Not Reportable 02/15/17 05:36 Hyposegmented Neuts Not Reportable 02/15/17 05:36 Hypogranular Neuts Not Reportable 02/15/17 05:36 Smudge Cells Not Reportable 02/15/17 05:36 Toxic Granulation Not Reportable 02/15/17 05:36 Toxic Vacuolation Not Reportable 02/15/17 05:36 Dohle Bodies Not Reportable 02/15/17 05:36 Pel[place]uet Anomaly Not Reportable 02/15/17 05:36 Kanika Rods Not Reportable 02/15/17 05:36 Platelet Estimate Appears decreased 02/15/17 05:36 Clumped Platelets Not Reportable 02/15/17 05:36 Plt Clumps, EDTA Not Reportable 02/15/17 05:36 Large Platelets Not Reportable 02/15/17 05:36 Giant Platelets Not Reportable 02/15/17 05:36 Platelet Satelliting Not Reportable 02/15/17 05:36 Plt Morphology Comment Not Reportable 02/15/17 05:36 RBC Morphology Normal 02/15/17 05:36 Dimorphic RBCs Not Reportable 02/15/17 05:36 Polychromasia Not Reportable 02/15/17 05:36 Hypochromasia Not Reportable 02/15/17 05:36 Poikilocytosis Not Reportable 02/15/17 05:36 Anisocytosis Not Reportable 02/15/17 05:36 Microcytosis Not Reportable 02/15/17 05:36 Macrocytosis Not Reportable 02/15/17 05:36 Spherocytes Not Reportable 02/15/17 05:36 Pappenheimer Bodies Not Reportable 02/15/17 05:36 Sickle Cells Not Reportable 02/15/17 05:36 Target Cells Not Reportable 02/15/17 05:36 Tear Drop Cells Not Reportable 02/15/17 05:36 Ovalocytes Not Reportable 02/15/17 05:36 Helmet Cells Not Reportable 02/15/17 05:36 [place] Bodies Not Reportable 02/15/17 05:36 [place] Rings Not Reportable 02/15/17 05:36 Patricia Cells Not Reportable 02/15/17 05:36 Bite Cells Not Reportable 02/15/17 05:36 Crenated Cell Not Reportable 02/15/17 05:36 Elliptocytes Not Reportable 02/15/17 05:36 Acanthocytes (Spur) Not Reportable 02/15/17 05:36 Rouleaux Not Reportable 02/15/17 05:36 Hemoglobin C Crystals Not Reportable 02/15/17 05:36 Schistocytes Not Reportable 02/15/17 05:36 Malaria parasites Not Reportable 02/15/17 05:36 [place] Bodies Not Reportable 02/15/17 05:36 Hem Pathologist Commnt No 02/15/17 05:36 Sodium 138 mmol/L (137-145) 02/15/17 05:36 Potassium 4.6 mmol/L (3.6-5.0) 02/15/17 05:36 Chloride 99.1 mmol/L (98-107) 02/15/17 05:36 Carbon Dioxide 26 mmol/L (22-30) 02/15/17 05:36 Anion Gap 18 mmol/L 02/15/17 05:36 BUN 38 mg/dL (9-20) H 02/15/17 05:36 Creatinine 1.5 mg/dL (0.8-1.5) 02/15/17 05:36 Estimated GFR 50 ml/min 02/15/17 05:36 BUN/Creatinine Ratio 25.33 % 02/15/17 05:36 Glucose 172 mg/dL (75-100) H 02/15/17 05:36 POC Glucose 162 (70-105) H 02/15/17 05:10 Calcium 8.7 mg/dL (8.4-10.2) 02/15/17 05:36 Troponin T < 0.010 ng/mL (0.00-0.029) 02/11/17 15:01 NT-Pro-B Natriuret Pep 7033 pg/mL (0-450) H 02/11/17 15:01
--- NOTE | 2017-02-15 12:57 | Progress Note ---
Assessment and Plan - Patient Problems (1) Acute CHF (congestive heart failure) Current Visit: Yes Status: Acute Qualifiers: Congestive heart failure type: systolic Qualified Code(s): I50.21 - Acute systolic (congestive) heart failure Plan to address problem: - continue diuresis - optimize cardiac status per cardiology otherwise (2) Acute exacerbation of chronic obstructive pulmonary disease (COPD) Current Visit: Yes Status: Acute Plan to address problem: - begin systemic steroid taper - continue supplemental oxygen - continue qhs NIV - continue bronchodilators and pulmonary toilet - continue diuresis - complete empiric AB's coverage - VTE w/up (3) Localized swelling of both lower legs Current Visit: Yes Status: Acute Plan to address problem: - d-dimer +/- lower ext dopplers - continue diuresis (4) Sleep apnea, obstructive Current Visit: Yes Status: Acute Plan to address problem: - continue NIV qhs Subjective Date of service: 02/15/17 Principal diagnosis: Acute COPD exacerbation Interval history: Seen and examined at bedside; 24 hour events reviewed; nursing and respiratory care staff consulted; no adverse overnight events reported to me; resting peacefully in bed; states that he has been tolerating his CPAP well at night; states that his breathing is much better;he is complaining of persistent leg swelling and pain Objective Vital Signs - 12hr 02/15/17 02/15/17 02/15/17 02:22 02:32 08:00 Temperature 97.9 F Pulse Rate [ 73 75 Anterior Bilateral Throughout] Pulse Rate [ Right From Monitor] Respiratory 20 Rate Respiratory 20 20 Rate [Anterior Bilateral Throughout] Blood Pressure 159/92 [Right Arm] O2 Sat by Pulse 97 Oximetry 02/15/17 12:00 Temperature 97.1 F L Pulse Rate [ Anterior Bilateral Throughout] Pulse Rate [ 73 Right From Monitor] Respiratory 20 Rate Respiratory Rate [Anterior Bilateral Throughout] Blood Pressure 144/87 [Right Arm] O2 Sat by Pulse 97 Oximetry Constitutional: no acute distress, alert Eyes: non-icteric ENT: oropharynx moist Neck: supple, no lymphadenopathy Effort: mildly labored Ascultation: Bilateral: clear, diminished breath sounds Cardiovascular: regular rate and rhythm Gastrointestinal: normoactive bowel sounds, soft, non-tender Integumentary: normal Extremities: no cyanosis, pink and warm, pulses normal, edema Neurologic: normal mental status, non-focal exam, pupils equal and round, CN II- XII normal Psychiatric: mood appropriate, affect normal CBC and BMP: 02/16/17 04:44 02/16/17 04:44 Abnormal lab findings: Abnormal Labs 02/11/17 02/12/17 02/12/17 21:06 05:56 11:32 WBC RDW Plt Count Lymph % (Auto) Lymph # Seg Neutrophils % Seg Neuts % (Manual) Lymphocytes % (Manual) Seg Neutrophils # Seg Neutrophils # Man Lymphocytes # (Manual) Sodium Chloride BUN Glucose POC Glucose 173 H 163 H 253 H 02/12/17 02/12/17 02/13/17 16:35 21:49 06:01 WBC 14.1 H RDW 18.4 H Plt Count Lymph % (Auto) Lymph # Seg Neutrophils % Seg Neuts % (Manual) 94.0 H Lymphocytes % (Manual) 2.0 L Seg Neutrophils # Seg Neutrophils # Man 13.3 H Lymphocytes # (Manual) 0.3 L Sodium Chloride BUN Glucose POC Glucose 166 H 206 H 02/13/17 02/13/17 02/13/17 06:01 06:18 11:38 WBC RDW Plt Count Lymph % (Auto) Lymph # Seg Neutrophils % Seg Neuts % (Manual) Lymphocytes % (Manual) Seg Neutrophils # Seg Neutrophils # Man Lymphocytes # (Manual) Sodium 136 L Chloride 97.7 L BUN 30 H Glucose 206 H POC Glucose 203 H 203 H 02/13/17 02/13/17 02/14/17 16:20 21:18 05:22 WBC 12.8 H RDW 18.1 H Plt Count 138 L Lymph % (Auto) 4.2 L Lymph # 0.5 L Seg Neutrophils % 89.5 H Seg Neuts % (Manual) Lymphocytes % (Manual) Seg Neutrophils # 11.5 H Seg Neutrophils # Man Lymphocytes # (Manual) Sodium Chloride BUN Glucose POC Glucose 193 H 205 H 02/14/17 02/14/17 02/14/17 05:22 06:31 11:04 WBC RDW Plt Count Lymph % (Auto) Lymph # Seg Neutrophils % Seg Neuts % (Manual) Lymphocytes % (Manual) Seg Neutrophils # Seg Neutrophils # Man Lymphocytes # (Manual) Sodium 136 L Chloride BUN 33 H Glucose 218 H POC Glucose 206 H 243 H 02/14/17 02/15/17 02/15/17 15:54 00:21 05:10 WBC RDW Plt Count Lymph % (Auto) Lymph # Seg Neutrophils % Seg Neuts % (Manual) Lymphocytes % (Manual) Seg Neutrophils # Seg Neutrophils # Man Lymphocytes # (Manual) Sodium Chloride BUN Glucose POC Glucose 266 H 144 H 162 H 02/15/17 02/15/17 02/15/17 05:36 05:36 10:59 WBC 13.7 H RDW 18.7 H Plt Count 128 L Lymph % (Auto) Lymph # Seg Neutrophils % Seg Neuts % (Manual) 98.0 H Lymphocytes % (Manual) 1.0 L Seg Neutrophils # Seg Neutrophils # Man 13.4 H Lymphocytes # (Manual) 0.1 L Sodium Chloride BUN 38 H Glucose 172 H POC Glucose 269 H Chest x-ray: image reviewed
[2017-02-15] MEDS: LEVAQUIN PO SCH (22:31)
[2017-02-15] MEDS: LEVEMIR SUB-Q SCH (22:34)
[2017-02-16] MEDS: DUONEB 0.5 MG-3 MG/3 ML SOLN IH SCH ×4 (01:34→20:18)
[2017-02-16 05:10] LABS: Hematocrit 40.3 % (35.5-45.6); Hemoglobin 13.2 gm/dl (11.8-15.2); Mean Corpuscular HGB Conc 33 % (32-34); Mean Corpuscular Hemoglobin 30 pg (28-32); Mean Corpuscular Volume 90 fl (84-94); Platelet Count 114 K/mm3 (140-440); Red Blood Count 4.46 M/mm3 (3.65-5.03); Red Cell Distribution Width 18.6 % (13.2-15.2); White Blood Count 10.4 K/mm3 (4.5-11.0)
[2017-02-16 05:21] LABS: Calcium 8.5 mg/dL (8.4-10.2); Chloride 96.9 mmol/L (98-107)
[2017-02-16 06:12] LABS: Basophils % (Manual) 0 % (0.0-1.8); Blastocytes % (Manual) 0 %; Eosinophils % (Manual) 0 % (0.0-4.3)
[2017-02-16 06:13] LABS: Diff Status Complete; Platelet Estimate Appears Decreased; RBC Morphology Normal
[2017-02-16] MEDS: GLUCOTROL PO SCH (09:03)
[2017-02-16] MEDS: NOVOLOG SUB-Q SCH ×4 (09:04→23:14)
--- NOTE | 2017-02-16 09:18 | Progress Note ---
Assessment and Plan Shortness of breath - multifactorial COPD exacerbation Acute systolic heart failure Presence of automatic (implantable) cardiac defibrillator ([employer]) AV paced on ECG Hx of Dilated non ischemic cardiomyopathy at least moderate MR with an EF 10-15% on echo 10/2016 normal coronaries by [facility] 09/2015 [place] Obese Hx of VT/VF -on amiodarone Hypertension Thrombocytopenia Recommendations: Continue IV Diuresis and afterload reduction Daily labs. Strict I's and O's. Daily weights. Subjective Date of service: 02/16/17 Principal diagnosis: Acute COPD exacerbation Interval history: Patient reports he is diuresing well. Objective Vital Signs Temp Pulse Pulse Pulse Pulse Resp Resp 02/16/17 08:00 97.2 F L 71 20 02/16/17 05:00 97.9 F 61 24 02/16/17 01:47 87 20 02/16/17 01:35 83 18 02/16/17 00:32 98.4 F 61 22 02/15/17 22:31 70 02/15/17 22:30 70 02/15/17 22:29 70 02/15/17 22:00 70 20 02/15/17 20:31 77 16 02/15/17 20:18 74 16 02/15/17 15:00 98.3 F 70 20 02/15/17 14:05 78 18 02/15/17 13:50 72 18 02/15/17 12:00 97.1 F L 73 20 BP BP BP Pulse Ox 02/16/17 08:00 136/78 97 02/16/17 05:00 124/80 100 02/16/17 01:47 02/16/17 01:35 02/16/17 00:32 142/80 97 02/15/17 22:31 130/70 02/15/17 22:30 130/70 02/15/17 22:29 130/70 02/15/17 22:00 96 02/15/17 20:31 02/15/17 20:18 02/15/17 15:00 131/74 99 02/15/17 14:05 02/15/17 13:50 97 02/15/17 12:00 144/87 97 - Physical Examination General: No Apparent Distress HEENT: Positive: PERRL Neck: Positive: trachea midline Cardiac: Positive: Other (AV paced) Lungs: Positive: Decreased Breath Sounds, Wheezes Neuro: Positive: Grossly Intact Extremities: Present: +2 Edema - Labs and Meds CBC 02/16/17 Range/Units 04:44 WBC 10.4 (4.5-11.0) K/mm3 RBC 4.46 (3.65-5.03) M/mm3 Hgb 13.2 (11.8-15.2) gm/dl Hct 40.3 (35.5-45.6) % Plt Count 114 L (140-440) K/mm3 Comprehensive Metabolic Panel 02/16/17 Range/Units 04:44 Sodium 135 L (137-145) mmol/L Potassium 5.0 (3.6-5.0) mmol/L Chloride 96.9 L (98-107) mmol/L Carbon Dioxide 26 (22-30) mmol/L BUN 35 H (9-20) mg/dL Creatinine 1.4 (0.8-1.5) mg/dL Glucose 204 H (75-100) mg/dL Calcium 8.5 (8.4-10.2) mg/dL
[2017-02-16] MEDS: FEOSOL PO SCH ×2 (11:10→23:13)
[2017-02-16] MEDS: LASIX IV SCH (11:10)
[2017-02-16] MEDS: ASPIRIN PO SCH (11:10)
[2017-02-16] MEDS: ZYLOPRIM PO SCH ×2 (11:11→23:15)
[2017-02-16] MEDS: ZESTRIL PO SCH ×2 (11:11→23:15)
[2017-02-16] MEDS: IMDUR PO SCH (11:11)
[2017-02-16] MEDS: CORDARONE PO SCH (11:12)
[2017-02-16] MEDS: COREG PO SCH ×2 (11:12→23:15)
[2017-02-16] MEDS: MAG-OX PO SCH (11:12)
[2017-02-16] MEDS: ALDACTONE PO SCH ×2 (11:18→23:13)
[2017-02-16] MEDS: LOVENOX SUB-Q SCH (11:19)
--- NOTE | 2017-02-16 13:11 | Progress Note ---
Assessment and Plan - Patient Problems (1) Acute CHF (congestive heart failure) Current Visit: Yes Status: Acute Qualifiers: Congestive heart failure type: systolic Qualified Code(s): I50.21 - Acute systolic (congestive) heart failure (2) Acute exacerbation of chronic obstructive pulmonary disease (COPD) Current Visit: Yes Status: Acute (3) Localized swelling of both lower legs Current Visit: Yes Status: Acute (4) Sleep apnea, obstructive Current Visit: Yes Status: Acute Subjective Date of service: 02/16/17 Principal diagnosis: Acute COPD exacerbation Interval history: Seen and examined at bedside; 24 hour events reviewed; nursing and respiratory care staff consulted; no adverse overnight events reported to me; Objective Vital Signs - 12hr 02/16/17 02/16/17 02/16/17 01:35 01:47 05:00 Temperature 97.9 F Pulse Rate [ 83 87 Anterior Bilateral Throughout] Pulse Rate [ Right From Monitor] Pulse Rate [ 61 Right] Respiratory 24 Rate Respiratory 18 20 Rate [Anterior Bilateral Throughout] Blood Pressure Blood Pressure 124/80 [Left Arm] Blood Pressure [Right Arm] O2 Sat by Pulse 100 Oximetry 02/16/17 02/16/17 08:00 11:18 Temperature 97.2 F L Pulse Rate [ Anterior Bilateral Throughout] Pulse Rate [ 71 Right From Monitor] Pulse Rate [ Right] Respiratory 20 Rate Respiratory Rate [Anterior Bilateral Throughout] Blood Pressure 138/78 Blood Pressure [Left Arm] Blood Pressure 136/78 [Right Arm] O2 Sat by Pulse 97 Oximetry Constitutional: no acute distress, alert Eyes: non-icteric ENT: oropharynx moist Neck: supple, no lymphadenopathy Effort: mildly labored Ascultation: Bilateral: clear, diminished breath sounds, wheezes Cardiovascular: regular rate and rhythm Gastrointestinal: normoactive bowel sounds, soft, non-tender Integumentary: normal Extremities: no cyanosis, pink and warm, pulses normal, edema Neurologic: normal mental status, non-focal exam, pupils equal and round, CN II- XII normal Psychiatric: mood appropriate, affect normal CBC and BMP: 02/16/17 04:44 02/16/17 04:44 Abnormal lab findings: Abnormal Labs 02/11/17 02/12/17 02/12/17 21:06 05:56 11:32 WBC RDW Plt Count Lymph % (Auto) Lymph # Seg Neutrophils % Seg Neuts % (Manual) Lymphocytes % (Manual) Seg Neutrophils # Seg Neutrophils # Man Lymphocytes # (Manual) Sodium Chloride BUN Glucose POC Glucose 173 H 163 H 253 H 02/12/17 02/12/17 02/13/17 16:35 21:49 06:01 WBC 14.1 H RDW 18.4 H Plt Count Lymph % (Auto) Lymph # Seg Neutrophils % Seg Neuts % (Manual) 94.0 H Lymphocytes % (Manual) 2.0 L Seg Neutrophils # Seg Neutrophils # Man 13.3 H Lymphocytes # (Manual) 0.3 L Sodium Chloride BUN Glucose POC Glucose 166 H 206 H 02/13/17 02/13/17 02/13/17 06:01 06:18 11:38 WBC RDW Plt Count Lymph % (Auto) Lymph # Seg Neutrophils % Seg Neuts % (Manual) Lymphocytes % (Manual) Seg Neutrophils # Seg Neutrophils # Man Lymphocytes # (Manual) Sodium 136 L Chloride 97.7 L BUN 30 H Glucose 206 H POC Glucose 203 H 203 H 02/13/17 02/13/17 02/14/17 16:20 21:18 05:22 WBC 12.8 H RDW 18.1 H Plt Count 138 L Lymph % (Auto) 4.2 L Lymph # 0.5 L Seg Neutrophils % 89.5 H Seg Neuts % (Manual) Lymphocytes % (Manual) Seg Neutrophils # 11.5 H Seg Neutrophils # Man Lymphocytes # (Manual) Sodium Chloride BUN Glucose POC Glucose 193 H 205 H 02/14/17 02/14/17 02/14/17 05:22 06:31 11:04 WBC RDW Plt Count Lymph % (Auto) Lymph # Seg Neutrophils % Seg Neuts % (Manual) Lymphocytes % (Manual) Seg Neutrophils # Seg Neutrophils # Man Lymphocytes # (Manual) Sodium 136 L Chloride BUN 33 H Glucose 218 H POC Glucose 206 H 243 H 02/14/17 02/15/17 02/15/17 15:54 00:21 05:10 WBC RDW Plt Count Lymph % (Auto) Lymph # Seg Neutrophils % Seg Neuts % (Manual) Lymphocytes % (Manual) Seg Neutrophils # Seg Neutrophils # Man Lymphocytes # (Manual) Sodium Chloride BUN Glucose POC Glucose 266 H 144 H 162 H 02/15/17 02/15/17 02/15/17 05:36 05:36 10:59 WBC 13.7 H RDW 18.7 H Plt Count 128 L Lymph % (Auto) Lymph # Seg Neutrophils % Seg Neuts % (Manual) 98.0 H Lymphocytes % (Manual) 1.0 L Seg Neutrophils # Seg Neutrophils # Man 13.4 H Lymphocytes # (Manual) 0.1 L Sodium Chloride BUN 38 H Glucose 172 H POC Glucose 269 H 02/15/17 02/15/17 02/15/17 16:57 21:19 23:45 WBC RDW Plt Count Lymph % (Auto) Lymph # Seg Neutrophils % Seg Neuts % (Manual) Lymphocytes % (Manual) Seg Neutrophils # Seg Neutrophils # Man Lymphocytes # (Manual) Sodium Chloride BUN Glucose POC Glucose 243 H 260 H 289 H 02/16/17 02/16/17 02/16/17 04:44 04:44 06:20 WBC RDW 18.6 H Plt Count 114 L Lymph % (Auto) Lymph # Seg Neutrophils % Seg Neuts % (Manual) 97.0 H Lymphocytes % (Manual) 1.0 L Seg Neutrophils # Seg Neutrophils # Man 10.1 H Lymphocytes # (Manual) 0.1 L Sodium 135 L Chloride 96.9 L BUN 35 H Glucose 204 H POC Glucose 163 H 02/16/17 11:28 WBC RDW Plt Count Lymph % (Auto) Lymph # Seg Neutrophils % Seg Neuts % (Manual) Lymphocytes % (Manual) Seg Neutrophils # Seg Neutrophils # Man Lymphocytes # (Manual) Sodium Chloride BUN Glucose POC Glucose 259 H
--- NOTE | 2017-02-16 13:53 | Progress Note ---
Assessment and Plan Assessment and plan: Patient is a 45-year-old man with a history of hypertension, type 2 diabetes mellitus, gout, obstructive sleep apnea, COPD, systolic heart failure with AICD and morbid obesity who presents with shortness of breath. Chest x-ray shows cardiomegaly and pulmonary venous congestion. -Acute on chronic systolic heart failure: Continue diuresis, cardiology is following -Acute exacerbation COPD: Continue nebulizer and wean steroids -Uncontrolled type 2 diabetes diabetes mellitus due to steroids -Morbid obesity BMI 63.3 -Anticipate discharge tomorrow History Interval history: Patient seen and examined. Follow up on shortness of breath which is improved. Overnight uneventful. No cp, n/v or severe headaches. Imaging, old records, testing, labs, nursing notes reviewed. Plan discussed with patient. Hospitalist Physical - Physical exam Narrative exam: GEN: WDWN, NAD, AWAKE, ALERT, ORIENTATED 3 HEENT: NCAT, PERRL, EOMI, OP CLEAR NECK: SUPPLE, NO THYROMEGALY, NO JVD, NO LAD CVS: RRR, NORMAL S1S2 LUNGS/CHEST: Bibasilar crackles NORMAL CHEST EXPANSION B, GOOD AIR ENTRY B ABD: SOFT NTND, GBS, NO REBOUND OR GUARDING EXT/SKIN: Bilateral pitting edema MSK: FROM X 4 EXTREMITIES NEURO: CN 2-12 GROSSLY INTACT, NO new FOCAL DEFICITS PSY: CALM - Constitutional Vitals: Temp Pulse Resp BP Pulse Ox 97.2 F L 71 20 138/78 97 02/16/17 08:00 02/16/17 08:00 02/16/17 08:00 02/16/17 11:18 02/16/17 08:00 General appearance: Present: no acute distress Results - Labs CBC & Chem 7: 02/16/17 04:44 02/16/17 04:44 Labs: Laboratory Last Values WBC 10.4 K/mm3 (4.5-11.0) 02/16/17 04:44 RBC 4.46 M/mm3 (3.65-5.03) 02/16/17 04:44 Hgb 13.2 gm/dl (11.8-15.2) 02/16/17 04:44 Hct 40.3 % (35.5-45.6) 02/16/17 04:44 MCV 90 fl (84-94) 02/16/17 04:44 MCH 30 pg (28-32) 02/16/17 04:44 MCHC 33 % (32-34) 02/16/17 04:44 RDW 18.6 % (13.2-15.2) H 02/16/17 04:44 Plt Count 114 K/mm3 (140-440) L 02/16/17 04:44 Lymph % (Auto) 4.2 % (13.4-35.0) L 02/14/17 05:22 Grand % (Auto) 6.0 % (0.0-7.3) 02/14/17 05:22 Eos % (Auto) 0.0 % (0.0-4.3) 02/14/17 05:22 Baso % (Auto) 0.3 % (0.0-1.8) 02/14/17 05:22 Lymph # 0.5 K/mm3 (1.2-5.4) L 02/14/17 05:22 Grand # 0.8 K/mm3 (0.0-0.8) 02/14/17 05:22 Eos # 0.0 K/mm3 (0.0-0.4) 02/14/17 05:22 Baso # 0.0 K/mm3 (0.0-0.1) 02/14/17 05:22 Add Manual Diff Complete 02/16/17 04:44 Total Counted 100 02/16/17 04:44 Seg Neutrophils % Change Over 02/16/17 04:44 Seg Neuts % (Manual) 97.0 % (40.0-70.0) H 02/16/17 04:44 Band Neutrophils % 0 % 02/16/17 04:44 Lymphocytes % (Manual) 1.0 % (13.4-35.0) L 02/16/17 04:44 Reactive Lymphs % (Man) 0 % 02/16/17 04:44 Monocytes % (Manual) 2.0 % (0.0-7.3) 02/16/17 04:44 Eosinophils % (Manual) 0 % (0.0-4.3) 02/16/17 04:44 Basophils % (Manual) 0 % (0.0-1.8) 02/16/17 04:44 Metamyelocytes % 0 % 02/16/17 04:44 Myelocytes % 0 % 02/16/17 04:44 Promyelocytes % 0 % 02/16/17 04:44 Blast Cells % 0 % 02/16/17 04:44 Nucleated RBC % Not Reportable 02/16/17 04:44 Seg Neutrophils # 11.5 K/mm3 (1.8-7.7) H 02/14/17 05:22 Seg Neutrophils # Man 10.1 K/mm3 (1.8-7.7) H 02/16/17 04:44 Band Neutrophils # 0.0 K/mm3 02/16/17 04:44 Lymphocytes # (Manual) 0.1 K/mm3 (1.2-5.4) L 02/16/17 04:44 Abs React Lymphs (Man) 0.0 K/mm3 02/16/17 04:44 Monocytes # (Manual) 0.2 K/mm3 (0.0-0.8) 02/16/17 04:44 Eosinophils # (Manual) 0.0 K/mm3 (0.0-0.4) 02/16/17 04:44 Basophils # (Manual) 0.0 K/mm3 (0.0-0.1) 02/16/17 04:44 Metamyelocytes # 0.0 K/mm3 02/16/17 04:44 Myelocytes # 0.0 K/mm3 02/16/17 04:44 Promyelocytes # 0.0 K/mm3 02/16/17 04:44 Blast Cells # 0.0 K/mm3 02/16/17 04:44 WBC Morphology Not Reportable 02/16/17 04:44 Hypersegmented Neuts Not Reportable 02/16/17 04:44 Hyposegmented Neuts Not Reportable 02/16/17 04:44 Hypogranular Neuts Not Reportable 02/16/17 04:44 Smudge Cells Not Reportable 02/16/17 04:44 Toxic Granulation Not Reportable 02/16/17 04:44 Toxic Vacuolation Not Reportable 02/16/17 04:44 Dohle Bodies Not Reportable 02/16/17 04:44 Pelger-Huet Anomaly Not Reportable 02/16/17 04:44 Kanika Rods Not Reportable 02/16/17 04:44 Platelet Estimate Appears decreased 02/16/17 04:44 Clumped Platelets Not Reportable 02/16/17 04:44 Plt Clumps, EDTA Not Reportable 02/16/17 04:44 Large Platelets Not Reportable 02/16/17 04:44 Giant Platelets Not Reportable 02/16/17 04:44 Platelet Satelliting Not Reportable 02/16/17 04:44 Plt Morphology Comment Not Reportable 02/16/17 04:44 RBC Morphology Normal 02/16/17 04:44 Dimorphic RBCs Not Reportable 02/16/17 04:44 Polychromasia Not Reportable 02/16/17 04:44 Hypochromasia Not Reportable 02/16/17 04:44 Poikilocytosis Not Reportable 02/16/17 04:44 Anisocytosis Not Reportable 02/16/17 04:44 Microcytosis Not Reportable 02/16/17 04:44 Macrocytosis Not Reportable 02/16/17 04:44 Spherocytes Not Reportable 02/16/17 04:44 Pappenheimer Bodies Not Reportable 02/16/17 04:44 Sickle Cells Not Reportable 02/16/17 04:44 Target Cells Not Reportable 02/16/17 04:44 Tear Drop Cells Not Reportable 02/16/17 04:44 Ovalocytes Not Reportable 02/16/17 04:44 Helmet Cells Not Reportable 02/16/17 04:44 [place] Bodies Not Reportable 02/16/17 04:44 [place] Rings Not Reportable 02/16/17 04:44 [place] Cells Not Reportable 02/16/17 04:44 Bite Cells Not Reportable 02/16/17 04:44 Crenated Cell Not Reportable 02/16/17 04:44 Elliptocytes Not Reportable 02/16/17 04:44 Acanthocytes (Spur) Not Reportable 02/16/17 04:44 Rouleaux Not Reportable 02/16/17 04:44 Hemoglobin C Crystals Not Reportable 02/16/17 04:44 Schistocytes Not Reportable 02/16/17 04:44 Malaria parasites Not Reportable 02/16/17 04:44 [place] Bodies Not Reportable 02/16/17 04:44 Hem Pathologist Commnt No 02/16/17 04:44 Sodium 135 mmol/L (137-145) L 02/16/17 04:44 Potassium 5.0 mmol/L (3.6-5.0) 02/16/17 04:44 Chloride 96.9 mmol/L (98-107) L 02/16/17 04:44 Carbon Dioxide 26 mmol/L (22-30) 02/16/17 04:44 Anion Gap 17 mmol/L 02/16/17 04:44 BUN 35 mg/dL (9-20) H 02/16/17 04:44 Creatinine 1.4 mg/dL (0.8-1.5) 02/16/17 04:44 Estimated GFR 54 ml/min 02/16/17 04:44 BUN/Creatinine Ratio 25.00 % 02/16/17 04:44 Glucose 204 mg/dL (75-100) H 02/16/17 04:44 POC Glucose 259 (70-105) H 02/16/17 11:28 Calcium 8.5 mg/dL (8.4-10.2) 02/16/17 04:44 Troponin T < 0.010 ng/mL (0.00-0.029) 02/11/17 15:01 NT-Pro-B Natriuret Pep 7033 pg/mL (0-450) H 02/11/17 15:01 - Imaging and Cardiology Chest x-ray: report reviewed
[2017-02-16] MEDS: LEVEMIR SUB-Q SCH (23:15)
[2017-02-17] MEDS: LEVAQUIN PO SCH (00:54)
[2017-02-17] MEDS: DUONEB 0.5 MG-3 MG/3 ML SOLN IH SCH ×4 (01:34→19:34)
[2017-02-17] MEDS: GLUCOTROL PO SCH (08:15)
[2017-02-17] MEDS: NOVOLOG SUB-Q SCH ×3 (08:15→16:13)
[2017-02-17] MEDS: LOVENOX SUB-Q SCH (11:15)
[2017-02-17] MEDS: ZYLOPRIM PO SCH ×2 (11:17→23:30)
[2017-02-17] MEDS: IMDUR PO SCH (11:17)
[2017-02-17] MEDS: MAG-OX PO SCH (11:17)
[2017-02-17] MEDS: CORDARONE PO SCH (11:17)
[2017-02-17] MEDS: ALDACTONE PO SCH ×2 (11:17→23:01)
[2017-02-17] MEDS: LASIX IV SCH (11:17)
[2017-02-17] MEDS: ASPIRIN PO SCH (11:17)
[2017-02-17] MEDS: FEOSOL PO SCH (11:17)
[2017-02-17] MEDS: ZESTRIL PO SCH ×2 (11:18→23:30)
[2017-02-17] MEDS: COREG PO SCH ×2 (11:18→23:01)
--- NOTE | 2017-02-17 12:08 | Progress Note ---
Assessment and Plan Assessment and plan: Patient is a 45-year-old man with a history of hypertension, type 2 diabetes mellitus, gout, obstructive sleep apnea, COPD, systolic heart failure with AICD and morbid obesity who presents with shortness of breath. Chest x-ray shows cardiomegaly and pulmonary venous congestion. -Acute on chronic systolic heart failure: Continue diuresis, cardiology is following -Acute exacerbation COPD: Continue nebulizer and wean steroids -Uncontrolled type 2 diabetes diabetes mellitus due to steroids -Morbid obesity BMI 63.3 -Anticipate discharge once cleared by cardiology. History Interval history: Patient seen and examined. Follow up on shortness of breath which is improved. Overnight uneventful. No cp, n/v or severe headaches. Imaging, old records, testing, labs, nursing notes reviewed. Plan discussed with patient. Hospitalist Physical - Physical exam Narrative exam: GEN: WDWN, NAD, AWAKE, ALERT, ORIENTATED 3 HEENT: NCAT, PERRL, EOMI, OP CLEAR NECK: SUPPLE, NO THYROMEGALY, NO JVD, NO LAD CVS: RRR, NORMAL S1S2 LUNGS/CHEST: Bibasilar crackles NORMAL CHEST EXPANSION B, GOOD AIR ENTRY B ABD: SOFT NTND, GBS, NO REBOUND OR GUARDING EXT/SKIN: Bilateral pitting edema MSK: FROM X 4 EXTREMITIES NEURO: CN 2-12 GROSSLY INTACT, NO new FOCAL DEFICITS PSY: CALM - Constitutional Vitals: Temp Pulse Resp BP Pulse Ox 97.6 F 72 20 129/86 98 02/17/17 07:45 02/17/17 07:56 02/17/17 07:56 02/17/17 07:45 02/17/17 07:45 General appearance: Present: no acute distress Results - Labs CBC & Chem 7: 02/16/17 04:44 02/16/17 04:44 Labs: Laboratory Last Values WBC 10.4 K/mm3 (4.5-11.0) 02/16/17 04:44 RBC 4.46 M/mm3 (3.65-5.03) 02/16/17 04:44 Hgb 13.2 gm/dl (11.8-15.2) 02/16/17 04:44 Hct 40.3 % (35.5-45.6) 02/16/17 04:44 MCV 90 fl (84-94) 02/16/17 04:44 MCH 30 pg (28-32) 02/16/17 04:44 MCHC 33 % (32-34) 02/16/17 04:44 RDW 18.6 % (13.2-15.2) H 02/16/17 04:44 Plt Count 114 K/mm3 (140-440) L 02/16/17 04:44 Lymph % (Auto) 4.2 % (13.4-35.0) L 02/14/17 05:22 [place] % (Auto) 6.0 % (0.0-7.3) 02/14/17 05:22 Eos % (Auto) 0.0 % (0.0-4.3) 02/14/17 05:22 Baso % (Auto) 0.3 % (0.0-1.8) 02/14/17 05:22 Lymph # 0.5 K/mm3 (1.2-5.4) L 02/14/17 05:22 [place] # 0.8 K/mm3 (0.0-0.8) 02/14/17 05:22 Eos # 0.0 K/mm3 (0.0-0.4) 02/14/17 05:22 Baso # 0.0 K/mm3 (0.0-0.1) 02/14/17 05:22 Add Manual Diff Complete 02/16/17 04:44 Total Counted 100 02/16/17 04:44 Seg Neutrophils % Primary Health Care Nurse 02/16/17 04:44 Seg Neuts % (Manual) 97.0 % (40.0-70.0) H 02/16/17 04:44 Band Neutrophils % 0 % 02/16/17 04:44 Lymphocytes % (Manual) 1.0 % (13.4-35.0) L 02/16/17 04:44 Reactive Lymphs % (Man) 0 % 02/16/17 04:44 Monocytes % (Manual) 2.0 % (0.0-7.3) 02/16/17 04:44 Eosinophils % (Manual) 0 % (0.0-4.3) 02/16/17 04:44 Basophils % (Manual) 0 % (0.0-1.8) 02/16/17 04:44 Metamyelocytes % 0 % 02/16/17 04:44 Myelocytes % 0 % 02/16/17 04:44 Promyelocytes % 0 % 02/16/17 04:44 Blast Cells % 0 % 02/16/17 04:44 Nucleated RBC % Not Reportable 02/16/17 04:44 Seg Neutrophils # 11.5 K/mm3 (1.8-7.7) H 02/14/17 05:22 Seg Neutrophils # Man 10.1 K/mm3 (1.8-7.7) H 02/16/17 04:44 Band Neutrophils # 0.0 K/mm3 02/16/17 04:44 Lymphocytes # (Manual) 0.1 K/mm3 (1.2-5.4) L 02/16/17 04:44 Abs React Lymphs (Man) 0.0 K/mm3 02/16/17 04:44 Monocytes # (Manual) 0.2 K/mm3 (0.0-0.8) 02/16/17 04:44 Eosinophils # (Manual) 0.0 K/mm3 (0.0-0.4) 02/16/17 04:44 Basophils # (Manual) 0.0 K/mm3 (0.0-0.1) 02/16/17 04:44 Metamyelocytes # 0.0 K/mm3 02/16/17 04:44 Myelocytes # 0.0 K/mm3 02/16/17 04:44 Promyelocytes # 0.0 K/mm3 02/16/17 04:44 Blast Cells # 0.0 K/mm3 02/16/17 04:44 WBC Morphology Not Reportable 02/16/17 04:44 Hypersegmented Neuts Not Reportable 02/16/17 04:44 Hyposegmented Neuts Not Reportable 02/16/17 04:44 Hypogranular Neuts Not Reportable 02/16/17 04:44 Smudge Cells Not Reportable 02/16/17 04:44 Toxic Granulation Not Reportable 02/16/17 04:44 Toxic Vacuolation Not Reportable 02/16/17 04:44 Dohle Bodies Not Reportable 02/16/17 04:44 Pelger-Huet Anomaly Not Reportable 02/16/17 04:44 Kanika Rods Not Reportable 02/16/17 04:44 Platelet Estimate Appears decreased 02/16/17 04:44 Clumped Platelets Not Reportable 02/16/17 04:44 Plt Clumps, EDTA Not Reportable 02/16/17 04:44 Large Platelets Not Reportable 02/16/17 04:44 Giant Platelets Not Reportable 02/16/17 04:44 Platelet Satelliting Not Reportable 02/16/17 04:44 Plt Morphology Comment Not Reportable 02/16/17 04:44 RBC Morphology Normal 02/16/17 04:44 Dimorphic RBCs Not Reportable 02/16/17 04:44 Polychromasia Not Reportable 02/16/17 04:44 Hypochromasia Not Reportable 02/16/17 04:44 Poikilocytosis Not Reportable 02/16/17 04:44 Anisocytosis Not Reportable 02/16/17 04:44 Microcytosis Not Reportable 02/16/17 04:44 Macrocytosis Not Reportable 02/16/17 04:44 Spherocytes Not Reportable 02/16/17 04:44 Pappenheimer Bodies Not Reportable 02/16/17 04:44 Sickle Cells Not Reportable 02/16/17 04:44 Target Cells Not Reportable 02/16/17 04:44 Tear Drop Cells Not Reportable 02/16/17 04:44 Ovalocytes Not Reportable 02/16/17 04:44 Helmet Cells Not Reportable 02/16/17 04:44 [place] Bodies Not Reportable 02/16/17 04:44 [place] Rings Not Reportable 02/16/17 04:44 [place] Cells Not Reportable 02/16/17 04:44 Bite Cells Not Reportable 02/16/17 04:44 Crenated Cell Not Reportable 02/16/17 04:44 Elliptocytes Not Reportable 02/16/17 04:44 Acanthocytes (Spur) Not Reportable 02/16/17 04:44 Rouleaux Not Reportable 02/16/17 04:44 Hemoglobin C Crystals Not Reportable 02/16/17 04:44 Schistocytes Not Reportable 02/16/17 04:44 Malaria parasites Not Reportable 02/16/17 04:44 [place] Bodies Not Reportable 02/16/17 04:44 Hem Pathologist Commnt No 02/16/17 04:44 D-Dimer 408.38 ng/mlDDU (0-234) H 02/16/17 13:57 Sodium 135 mmol/L (137-145) L 02/16/17 04:44 Potassium 5.0 mmol/L (3.6-5.0) 02/16/17 04:44 Chloride 96.9 mmol/L (98-107) L 02/16/17 04:44 Carbon Dioxide 26 mmol/L (22-30) 02/16/17 04:44 Anion Gap 17 mmol/L 02/16/17 04:44 BUN 35 mg/dL (9-20) H 02/16/17 04:44 Creatinine 1.4 mg/dL (0.8-1.5) 02/16/17 04:44 Estimated GFR 54 ml/min 02/16/17 04:44 BUN/Creatinine Ratio 25.00 % 02/16/17 04:44 Glucose 204 mg/dL (75-100) H 02/16/17 04:44 POC Glucose 162 (70-105) H 02/17/17 11:12 Calcium 8.5 mg/dL (8.4-10.2) 02/16/17 04:44 Troponin T < 0.010 ng/mL (0.00-0.029) 02/11/17 15:01 NT-Pro-B Natriuret Pep 7033 pg/mL (0-450) H 02/11/17 15:01
--- NOTE | 2017-02-17 12:09 | Discharge Summary ---
Providers - Providers Date of Admission: 02/11/17 18:14 Attending physician: LARY TERRAZAS 02/12/17 10:28 Consult to Wound/ET Nurse [CONS] Routine Reason For Exam: wound eval 02/12/17 11:10 Consult to Physician [CONS] Routine Consulting Provider: LILLIANA JAMES Reason For Exam: asthma Place consult to:: DR. JAMES Notified:: DR. Hinton Phone number called:: [phone] Was contact made?: Yes If yes, spoke with:: NANCY Time called:: 14:26 Comment:: DONNELL NOTIFIED 02/13/17 10:21 Consult to Physician [CONS] Routine Consulting Provider: SHO ORTEZ Reason For Exam: chf Place consult to:: DR. ORTEZ Notified:: ROSA ISELA AG Phone number called:: IN HOUSE Was contact made?: Yes If yes, spoke with:: ROSA ISELA Time called:: 13:16 Comment:: DONNELL AWARE 02/16/17 12:06 Physical Therapy Evaluation and Treat [CONS] Urgent Comment: Reason For Exam: PT eval for assistive device when ambulating. Primary care physician: FISHER DIVING Hospitalization Condition: Stable Hospital course: Patient is a 44-year-old man with a history of hypertension, type 2 diabetes mellitus, gout, obstructive sleep apnea, COPD, systolic heart failure with AICD and morbid obesity bmi 62.1 who presents with shortness of breath. Chest x-ray shows cardiomegaly and pulmonary venous congestion. -Acute on chronic systolic heart failure: Continue diuresis, cardiology is following -Acute exacerbation COPD: Continue nebulizer and wean steroids -Uncontrolled type 2 diabetes diabetes mellitus due to steroids -Morbid obesity BMI 63.3 -Anticipate discharge once cleared by cardiology. per Cardiology: "Shortness of breath - multifactorial COPD exacerbation Acute systolic heart failure Presence of automatic (implantable) cardiac defibrillator (Medtronic) AV paced on ECG Hx of Dilated non ischemic cardiomyopathy at least moderate MR with an EF 10-15% on echo 10/2016 normal coronaries by [facility] 09/2015 [place] Obese Hx of VT/VF -on amiodarone Hypertension Thrombocytopenia Recommendations: Continue IV Diuresis and afterload reduction Daily labs. Strict I's and O's. Daily weights. GOOD DIURESIS EFFECT OVER THE LAST 48 HOURS PATIENT STILL SEVERELY FLUID OVERLOADED THOUGH I HAVE RE-EMPHASIZED IMPORTANCE OF FLUID RESTRICTION CONTINUE IV DIURESIS CONTINUE AFTERLOAD REDUCTION PATIENT IS NOT READY FOR DISCHARGE YET" Disposition: DISCHARGED TO HOME OR SELFCARE Time spent for discharge: 33 minutes Core Measure Documentation - Palliative Care Palliative Care/ Comfort Measures: Not Applicable - Core Measures Any of the following diagnoses?: heart failure - VTE Discharge Requirements Deep Vein Thrombosis/Pulmonary Embolism Present on Admission: No Has pt received <5 days of overlap therapy or INR<2.0: No Anticoagulant overlap therapy prescribed at discharge: No Contraindication No Overlap Therapy order at DC: Not Indicated - Heart Failure Discharge Requirements BRITTA/ARB for LVSD if EF <40%: Yes Beta brandon at discharge: Yes Exam - Physical Exam Narrative exam: GEN: WDWN, NAD, AWAKE, ALERT, ORIENTATED 3 HEENT: NCAT, PERRL, EOMI, OP CLEAR NECK: SUPPLE, NO THYROMEGALY, NO JVD, NO LAD CVS: RRR, NORMAL S1S2 LUNGS/CHEST: Bibasilar crackles NORMAL CHEST EXPANSION B, GOOD AIR ENTRY B ABD: SOFT NTND, GBS, NO REBOUND OR GUARDING EXT/SKIN: Bilateral pitting edema MSK: FROM X 4 EXTREMITIES NEURO: CN 2-12 GROSSLY INTACT, NO new FOCAL DEFICITS PSY: CALM - Constitutional Vitals: Temp Pulse Resp BP Pulse Ox 97.6 F 72 20 129/86 98 02/17/17 07:45 02/17/17 07:56 02/17/17 07:56 02/17/17 07:45 02/17/17 07:45 Plan Activity: other (no strenous activites until cleared by PCP. ) Diet: low salt, diabetic Follow up with: RILEY WYLIE MD [Primary Care Provider] - 3-5 Days SHO ORTEZ MD [Staff Physician] - 7 Days
--- NOTE | 2017-02-17 12:45 | Progress Note ---
Assessment and Plan Shortness of breath - multifactorial COPD exacerbation Acute systolic heart failure Presence of automatic (implantable) cardiac defibrillator (Medtronic) Hx of Dilated non ischemic cardiomyopathy at least moderate MR with an EF 10-15% on echo 10/2016 normal coronaries by [facility] 09/2015 [place] Obese Hx of VT/VF -on amiodarone Hypertension Thrombocytopenia Recommendations: Continue IV Diuresis and afterload reduction He can likely be discharged in next 24-48 hours. Subjective Date of service: 02/17/17 Principal diagnosis: Acute COPD exacerbation Interval history: Dyspnea is improving Objective Vital Signs Temp Pulse Pulse Pulse Pulse Resp Resp 02/17/17 07:56 72 20 02/17/17 07:46 71 20 02/17/17 07:45 97.6 F 72 20 02/17/17 05:10 98.3 F 68 20 02/16/17 23:40 98.1 F 61 20 02/16/17 23:13 64 02/16/17 22:00 69 02/16/17 20:30 73 22 02/16/17 20:18 69 20 02/16/17 20:00 98.7 F 69 22 02/16/17 15:00 97.8 F 72 20 02/16/17 13:50 72 20 02/16/17 13:40 74 20 BP BP Pulse Ox 02/17/17 07:56 02/17/17 07:46 02/17/17 07:45 129/86 98 02/17/17 05:10 130/70 99 02/16/17 23:40 133/76 97 02/16/17 23:13 02/16/17 22:00 02/16/17 20:30 02/16/17 20:18 02/16/17 20:00 131/69 98 02/16/17 15:00 135/69 99 02/16/17 13:50 02/16/17 13:40 - Physical Examination General: No Apparent Distress HEENT: Positive: PERRL Neck: Positive: trachea midline Cardiac: Positive: Reg Rate and Rhythm Lungs: Positive: Decreased Breath Sounds Neuro: Positive: Grossly Intact Abdomen: Positive: Soft, Distended Extremities: Present: +2 Edema
--- NOTE | 2017-02-17 14:50 | Progress Note ---
Assessment and Plan Patient alert, awake and Resting on room air.O2 satuaration 98%. No acute respiratory distress. - Patient Problems (1) Acute exacerbation of chronic obstructive pulmonary disease (COPD) Current Visit: Yes Status: Acute Plan to address problem: 1. O2 2 LITRES VIA NASAL CANULA. 2. CPAP 20 CM H20 PRESSURE DURING NIGHT TIME. 3. ALBUTEROL/ATROVENT AEROSOL TREATMENTS Q 6 HOURS. 4. CONTINUE I/V SOLUMEDRAL. 5. CONTINUE LEVAQUINE 6. RECOMMEND S/C LOVENOX. (2) Acute CHF (congestive heart failure) Current Visit: Yes Status: Acute Qualifiers: Congestive heart failure type: systolic Qualified Code(s): I50.21 - Acute systolic (congestive) heart failure Plan to address problem: Management as per cardiology. (3) Sleep apnea, obstructive Current Visit: Yes Status: Acute Plan to address problem: Continue CPAP 20 cm H2O pressure. (4) Morbid obesity due to excess calories Current Visit: No Status: Chronic Plan to address problem: Recommend to loose weight. Consult human services assistant for weight reduction diet. (5) Dilated cardiomyopathy Current Visit: No Status: Chronic Plan to address problem: Management as per cardiology. (6) Cardiac defibrillator in place Current Visit: No Status: Chronic (7) HTN (hypertension) Current Visit: No Status: Chronic Qualifiers: Hypertension type: essential hypertension Qualified Code(s): I10 - Essential (primary) hypertension Plan to address problem: Management as per primary care. 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 Subjective Date of service: 02/17/17 Principal diagnosis: Acute COPD exacerbation Interval history: Patient alert, awake and Resting on room air.O2 satuaration 98%. No acute respiratory distress. Objective Vital Signs - 12hr 02/17/17 02/17/17 02/17/17 05:10 07:45 07:46 Temperature 98.3 F 97.6 F Pulse Rate [ 71 Anterior Bilateral Throughout] Pulse Rate [ 68 Left] Pulse Rate [ 72 Right From Monitor] Respiratory 20 20 Rate Respiratory 20 Rate [Anterior Bilateral Throughout] Blood Pressure 130/70 129/86 [Left Arm] O2 Sat by Pulse 99 98 Oximetry 02/17/17 02/17/17 02/17/17 07:56 13:09 13:20 Temperature Pulse Rate [ 72 73 72 Anterior Bilateral Throughout] Pulse Rate [ Left] Pulse Rate [ Right From Monitor] Respiratory Rate Respiratory 20 20 20 Rate [Anterior Bilateral Throughout] Blood Pressure [Left Arm] O2 Sat by Pulse Oximetry Constitutional: no acute distress, alert Eyes: non-icteric ENT: oropharynx moist Neck: supple, no lymphadenopathy Effort: mildly labored Ascultation: Bilateral: diminished breath sounds, wheezes Cardiovascular: regular rate and rhythm Gastrointestinal: normoactive bowel sounds, soft, non-tender Integumentary: normal Extremities: no cyanosis, pink and warm, pulses normal, edema Neurologic: normal mental status, non-focal exam, pupils equal and round, CN II- XII normal Psychiatric: mood appropriate, affect normal CBC and BMP: 02/16/17 04:44 02/16/17 04:44 ABG, PT/INR, D-dimer: PT/INR, D-dimer D-Dimer 408.38 ng/mlDDU (0-234) H 02/16/17 13:57 Abnormal lab findings: Abnormal Labs 02/11/17 02/12/17 02/12/17 21:06 05:56 11:32 WBC RDW Plt Count Lymph % (Auto) Lymph # Seg Neutrophils % Seg Neuts % (Manual) Lymphocytes % (Manual) Seg Neutrophils # Seg Neutrophils # Man Lymphocytes # (Manual) D-Dimer Sodium Chloride BUN Glucose POC Glucose 173 H 163 H 253 H 02/12/17 02/12/17 02/13/17 16:35 21:49 06:01 WBC 14.1 H RDW 18.4 H Plt Count Lymph % (Auto) Lymph # Seg Neutrophils % Seg Neuts % (Manual) 94.0 H Lymphocytes % (Manual) 2.0 L Seg Neutrophils # Seg Neutrophils # Man 13.3 H Lymphocytes # (Manual) 0.3 L D-Dimer Sodium Chloride BUN Glucose POC Glucose 166 H 206 H 02/13/17 02/13/17 02/13/17 06:01 06:18 11:38 WBC RDW Plt Count Lymph % (Auto) Lymph # Seg Neutrophils % Seg Neuts % (Manual) Lymphocytes % (Manual) Seg Neutrophils # Seg Neutrophils # Man Lymphocytes # (Manual) D-Dimer Sodium 136 L Chloride 97.7 L BUN 30 H Glucose 206 H POC Glucose 203 H 203 H 02/13/17 02/13/17 02/14/17 16:20 21:18 05:22 WBC 12.8 H RDW 18.1 H Plt Count 138 L Lymph % (Auto) 4.2 L Lymph # 0.5 L Seg Neutrophils % 89.5 H Seg Neuts % (Manual) Lymphocytes % (Manual) Seg Neutrophils # 11.5 H Seg Neutrophils # Man Lymphocytes # (Manual) D-Dimer Sodium Chloride BUN Glucose POC Glucose 193 H 205 H 02/14/17 02/14/17 02/14/17 05:22 06:31 11:04 WBC RDW Plt Count Lymph % (Auto) Lymph # Seg Neutrophils % Seg Neuts % (Manual) Lymphocytes % (Manual) Seg Neutrophils # Seg Neutrophils # Man Lymphocytes # (Manual) D-Dimer Sodium 136 L Chloride BUN 33 H Glucose 218 H POC Glucose 206 H 243 H 02/14/17 02/15/17 02/15/17 15:54 00:21 05:10 WBC RDW Plt Count Lymph % (Auto) Lymph # Seg Neutrophils % Seg Neuts % (Manual) Lymphocytes % (Manual) Seg Neutrophils # Seg Neutrophils # Man Lymphocytes # (Manual) D-Dimer Sodium Chloride BUN Glucose POC Glucose 266 H 144 H 162 H 02/15/17 02/15/17 02/15/17 05:36 05:36 10:59 WBC 13.7 H RDW 18.7 H Plt Count 128 L Lymph % (Auto) Lymph # Seg Neutrophils % Seg Neuts % (Manual) 98.0 H Lymphocytes % (Manual) 1.0 L Seg Neutrophils # Seg Neutrophils # Man 13.4 H Lymphocytes # (Manual) 0.1 L D-Dimer Sodium Chloride BUN 38 H Glucose 172 H POC Glucose 269 H 02/15/17 02/15/17 02/15/17 16:57 21:19 23:45 WBC RDW Plt Count Lymph % (Auto) Lymph # Seg Neutrophils % Seg Neuts % (Manual) Lymphocytes % (Manual) Seg Neutrophils # Seg Neutrophils # Man Lymphocytes # (Manual) D-Dimer Sodium Chloride BUN Glucose POC Glucose 243 H 260 H 289 H 02/16/17 02/16/17 02/16/17 04:44 04:44 06:20 WBC RDW 18.6 H Plt Count 114 L Lymph % (Auto) Lymph # Seg Neutrophils % Seg Neuts % (Manual) 97.0 H Lymphocytes % (Manual) 1.0 L Seg Neutrophils # Seg Neutrophils # Man 10.1 H Lymphocytes # (Manual) 0.1 L D-Dimer Sodium 135 L Chloride 96.9 L BUN 35 H Glucose 204 H POC Glucose 163 H 02/16/17 02/16/17 02/16/17 11:28 13:57 16:42 WBC RDW Plt Count Lymph % (Auto) Lymph # Seg Neutrophils % Seg Neuts % (Manual) Lymphocytes % (Manual) Seg Neutrophils # Seg Neutrophils # Man Lymphocytes # (Manual) D-Dimer 408.38 H Sodium Chloride BUN Glucose POC Glucose 259 H 267 H 02/16/17 02/17/17 02/17/17 21:21 06:08 11:12 WBC RDW Plt Count Lymph % (Auto) Lymph # Seg Neutrophils % Seg Neuts % (Manual) Lymphocytes % (Manual) Seg Neutrophils # Seg Neutrophils # Man Lymphocytes # (Manual) D-Dimer Sodium Chloride BUN Glucose POC Glucose 227 H 169 H 162 H
[2017-02-17] MEDS: LEVEMIR SUB-Q SCH (23:02)
[2017-02-18] MEDS: NOVOLOG SUB-Q SCH ×5 (00:49→22:18)
[2017-02-18] MEDS: FEOSOL PO SCH ×3 (00:51→21:37)
[2017-02-18] MEDS: LEVAQUIN PO SCH ×2 (00:51→21:39)
[2017-02-18] MEDS: DUONEB 0.5 MG-3 MG/3 ML SOLN IH SCH ×4 (02:13→21:09)
[2017-02-18] MEDS: IMDUR PO SCH (09:40)
[2017-02-18] MEDS: ZESTRIL PO SCH ×2 (09:41→21:38)
[2017-02-18] MEDS: ALDACTONE PO SCH ×2 (09:42→21:38)
[2017-02-18] MEDS: COREG PO SCH ×2 (09:42→21:38)
[2017-02-18] MEDS: CORDARONE PO SCH (09:42)
[2017-02-18] MEDS: ZYLOPRIM PO SCH ×2 (09:43→21:39)
[2017-02-18] MEDS: GLUCOTROL PO SCH (09:43)
[2017-02-18] MEDS: LOVENOX SUB-Q SCH (09:44)
[2017-02-18] MEDS: ASPIRIN PO SCH (09:47)
--- NOTE | 2017-02-18 09:58 | Progress Note ---
Assessment and Plan Assessment and plan: Patient is a 45-year-old man with a history of hypertension, type 2 diabetes mellitus, gout, obstructive sleep apnea, COPD, systolic heart failure with AICD and morbid obesity who presents with shortness of breath. Chest x-ray shows cardiomegaly and pulmonary venous congestion. -Acute on chronic systolic heart failure: Continue diuresis, cardiology is following -Acute exacerbation COPD: Continue nebulizer and wean steroids -Uncontrolled type 2 diabetes diabetes mellitus due to steroids -Morbid obesity BMI 63.3 -Anticipate discharge once cleared by cardiology. History Interval history: Patient seen and examined. Follow up on shortness of breath which is improved. Overnight uneventful. No cp, n/v or severe headaches. Imaging, old records, testing, labs, nursing notes reviewed. Plan discussed with patient. Hospitalist Physical - Physical exam Narrative exam: GEN: WDWN, NAD, AWAKE, ALERT, ORIENTATED 3 HEENT: NCAT, PERRL, EOMI, OP CLEAR NECK: SUPPLE, NO THYROMEGALY, NO JVD, NO LAD CVS: RRR, NORMAL S1S2 LUNGS/CHEST: Bibasilar crackles NORMAL CHEST EXPANSION B, GOOD AIR ENTRY B ABD: SOFT NTND, GBS, NO REBOUND OR GUARDING EXT/SKIN: Bilateral pitting edema MSK: FROM X 4 EXTREMITIES NEURO: CN 2-12 GROSSLY INTACT, NO new FOCAL DEFICITS PSY: CALM - Constitutional Vitals: Temp Pulse Resp BP Pulse Ox 98.7 F 75 22 124/81 98 02/18/17 04:00 02/18/17 09:41 02/18/17 04:00 02/18/17 09:42 02/18/17 04:00 General appearance: Present: no acute distress Results - Labs CBC & Chem 7: 02/16/17 04:44 02/16/17 04:44 Labs: Laboratory Last Values WBC 10.4 K/mm3 (4.5-11.0) 02/16/17 04:44 RBC 4.46 M/mm3 (3.65-5.03) 02/16/17 04:44 Hgb 13.2 gm/dl (11.8-15.2) 02/16/17 04:44 Hct 40.3 % (35.5-45.6) 02/16/17 04:44 MCV 90 fl (84-94) 02/16/17 04:44 MCH 30 pg (28-32) 02/16/17 04:44 MCHC 33 % (32-34) 02/16/17 04:44 RDW 18.6 % (13.2-15.2) H 02/16/17 04:44 Plt Count 114 K/mm3 (140-440) L 02/16/17 04:44 Lymph % (Auto) 4.2 % (13.4-35.0) L 02/14/17 05:22 [place] % (Auto) 6.0 % (0.0-7.3) 02/14/17 05:22 Eos % (Auto) 0.0 % (0.0-4.3) 02/14/17 05:22 Baso % (Auto) 0.3 % (0.0-1.8) 02/14/17 05:22 Lymph # 0.5 K/mm3 (1.2-5.4) L 02/14/17 05:22 [place] # 0.8 K/mm3 (0.0-0.8) 02/14/17 05:22 Eos # 0.0 K/mm3 (0.0-0.4) 02/14/17 05:22 Baso # 0.0 K/mm3 (0.0-0.1) 02/14/17 05:22 Add Manual Diff Complete 02/16/17 04:44 Total Counted 100 02/16/17 04:44 Seg Neutrophils % [employer] Manager 02/16/17 04:44 Seg Neuts % (Manual) 97.0 % (40.0-70.0) H 02/16/17 04:44 Band Neutrophils % 0 % 02/16/17 04:44 Lymphocytes % (Manual) 1.0 % (13.4-35.0) L 02/16/17 04:44 Reactive Lymphs % (Man) 0 % 02/16/17 04:44 Monocytes % (Manual) 2.0 % (0.0-7.3) 02/16/17 04:44 Eosinophils % (Manual) 0 % (0.0-4.3) 02/16/17 04:44 Basophils % (Manual) 0 % (0.0-1.8) 02/16/17 04:44 Metamyelocytes % 0 % 02/16/17 04:44 Myelocytes % 0 % 02/16/17 04:44 Promyelocytes % 0 % 02/16/17 04:44 Blast Cells % 0 % 02/16/17 04:44 Nucleated RBC % Not Reportable 02/16/17 04:44 Seg Neutrophils # 11.5 K/mm3 (1.8-7.7) H 02/14/17 05:22 Seg Neutrophils # Man 10.1 K/mm3 (1.8-7.7) H 02/16/17 04:44 Band Neutrophils # 0.0 K/mm3 02/16/17 04:44 Lymphocytes # (Manual) 0.1 K/mm3 (1.2-5.4) L 02/16/17 04:44 Abs React Lymphs (Man) 0.0 K/mm3 02/16/17 04:44 Monocytes # (Manual) 0.2 K/mm3 (0.0-0.8) 02/16/17 04:44 Eosinophils # (Manual) 0.0 K/mm3 (0.0-0.4) 02/16/17 04:44 Basophils # (Manual) 0.0 K/mm3 (0.0-0.1) 02/16/17 04:44 Metamyelocytes # 0.0 K/mm3 02/16/17 04:44 Myelocytes # 0.0 K/mm3 02/16/17 04:44 Promyelocytes # 0.0 K/mm3 02/16/17 04:44 Blast Cells # 0.0 K/mm3 02/16/17 04:44 WBC Morphology Not Reportable 02/16/17 04:44 Hypersegmented Neuts Not Reportable 02/16/17 04:44 Hyposegmented Neuts Not Reportable 02/16/17 04:44 Hypogranular Neuts Not Reportable 02/16/17 04:44 Smudge Cells Not Reportable 02/16/17 04:44 Toxic Granulation Not Reportable 02/16/17 04:44 Toxic Vacuolation Not Reportable 02/16/17 04:44 Dohle Bodies Not Reportable 02/16/17 04:44 Pelger-Huet Anomaly Not Reportable 02/16/17 04:44 Kanika Rods Not Reportable 02/16/17 04:44 Platelet Estimate Appears decreased 02/16/17 04:44 Clumped Platelets Not Reportable 02/16/17 04:44 Plt Clumps, EDTA Not Reportable 02/16/17 04:44 Large Platelets Not Reportable 02/16/17 04:44 Giant Platelets Not Reportable 02/16/17 04:44 Platelet Satelliting Not Reportable 02/16/17 04:44 Plt Morphology Comment Not Reportable 02/16/17 04:44 RBC Morphology Normal 02/16/17 04:44 Dimorphic RBCs Not Reportable 02/16/17 04:44 Polychromasia Not Reportable 02/16/17 04:44 Hypochromasia Not Reportable 02/16/17 04:44 Poikilocytosis Not Reportable 02/16/17 04:44 Anisocytosis Not Reportable 02/16/17 04:44 Microcytosis Not Reportable 02/16/17 04:44 Macrocytosis Not Reportable 02/16/17 04:44 Spherocytes Not Reportable 02/16/17 04:44 Pappenheimer Bodies Not Reportable 02/16/17 04:44 Sickle Cells Not Reportable 02/16/17 04:44 Target Cells Not Reportable 02/16/17 04:44 Tear Drop Cells Not Reportable 02/16/17 04:44 Ovalocytes Not Reportable 02/16/17 04:44 Helmet Cells Not Reportable 02/16/17 04:44 [place] Bodies Not Reportable 02/16/17 04:44 [place] Rings Not Reportable 02/16/17 04:44 [place] Cells Not Reportable 02/16/17 04:44 Bite Cells Not Reportable 02/16/17 04:44 Crenated Cell Not Reportable 02/16/17 04:44 Elliptocytes Not Reportable 02/16/17 04:44 Acanthocytes (Spur) Not Reportable 02/16/17 04:44 Rouleaux Not Reportable 02/16/17 04:44 Hemoglobin C Crystals Not Reportable 02/16/17 04:44 Schistocytes Not Reportable 02/16/17 04:44 Malaria parasites Not Reportable 02/16/17 04:44 [place] Bodies Not Reportable 02/16/17 04:44 Hem Pathologist Commnt No 02/16/17 04:44 D-Dimer 408.38 ng/mlDDU (0-234) H 02/16/17 13:57 Sodium 135 mmol/L (137-145) L 02/16/17 04:44 Potassium 5.0 mmol/L (3.6-5.0) 02/16/17 04:44 Chloride 96.9 mmol/L (98-107) L 02/16/17 04:44 Carbon Dioxide 26 mmol/L (22-30) 02/16/17 04:44 Anion Gap 17 mmol/L 02/16/17 04:44 BUN 35 mg/dL (9-20) H 02/16/17 04:44 Creatinine 1.4 mg/dL (0.8-1.5) 02/16/17 04:44 Estimated GFR 54 ml/min 02/16/17 04:44 BUN/Creatinine Ratio 25.00 % 02/16/17 04:44 Glucose 204 mg/dL (75-100) H 02/16/17 04:44 POC Glucose 101 (70-105) 02/18/17 05:52 Calcium 8.5 mg/dL (8.4-10.2) 02/16/17 04:44 Troponin T < 0.010 ng/mL (0.00-0.029) 02/11/17 15:01 NT-Pro-B Natriuret Pep 7033 pg/mL (0-450) H 02/11/17 15:01
[2017-02-18] MEDS: LASIX IV SCH (10:15)
--- NOTE | 2017-02-18 10:16 | Progress Note ---
Assessment and Plan Shortness of breath - multifactorial COPD exacerbation Acute systolic heart failure Presence of automatic (implantable) cardiac defibrillator (Medtronic) Hx of Dilated non ischemic cardiomyopathy at least moderate MR with an EF 10-15% on echo 10/2016 normal coronaries by [facility] 09/2015 [place] Obese Hx of VT/VF -on amiodarone Hypertension Thrombocytopenia Deconditioning Recommendations: Continue IV Diuresis and afterload reduction PT/OT evaluation if not already being done. Subjective Date of service: 02/18/17 Principal diagnosis: Acute COPD exacerbation Interval history: Dyspnea has improved. He feels very deconditioned and feels that he can not walk and is having trouble standing. Objective Vital Signs Temp Pulse Pulse Pulse Pulse Resp Resp 02/18/17 09:42 02/18/17 09:41 75 02/18/17 09:40 02/18/17 08:20 97.7 F 74 20 02/18/17 04:00 98.7 F 60 22 02/18/17 00:00 98.2 F 61 22 02/17/17 23:30 74 02/17/17 23:01 74 02/17/17 20:00 98.2 F 74 22 02/17/17 19:45 70 18 02/17/17 19:32 69 20 02/17/17 16:45 98.3 F 73 26 H 02/17/17 13:20 72 20 02/17/17 13:09 73 20 BP BP BP Pulse Ox 02/18/17 09:42 124/81 02/18/17 09:41 124/81 02/18/17 09:40 124/81 02/18/17 08:20 124/81 98 02/18/17 04:00 125/80 98 02/18/17 00:00 135/85 98 02/17/17 23:30 151/71 02/17/17 23:01 150/71 02/17/17 20:00 150/71 98 02/17/17 19:45 02/17/17 19:32 02/17/17 16:45 128/79 02/17/17 13:20 02/17/17 13:09 - Physical Examination General: No Apparent Distress HEENT: Positive: PERRL Neck: Positive: trachea midline Cardiac: Positive: Reg Rate and Rhythm Lungs: Positive: clear to auscultation Neuro: Positive: Grossly Intact Abdomen: Positive: Soft, Distended Extremities: Present: +2 Edema
[2017-02-18] MEDS: MAG-OX PO SCH (11:27)
[2017-02-18 11:55] LABS: BUN/Creatinine Ratio 26.36; Blood Urea Nitrogen 29 mg/dL (9-20); Calcium 8.6 mg/dL (8.4-10.2); Carbon Dioxide 28 mmol/L (22-30); Glucose 143 mg/dL (75-100)
[2017-02-18 11:56] LABS: Anion Gap 18 mmol/L; Potassium 5.7 mmol/L (3.6-5.0); Sodium 134 mmol/L (137-145)
--- NOTE | 2017-02-18 12:37 | Progress Note ---
Assessment and Plan Patient alert, awake and Resting on room air.O2 satuaration 98%. No acute respiratory distress. - Patient Problems (1) Acute exacerbation of chronic obstructive pulmonary disease (COPD) Current Visit: Yes Status: Acute Plan to address problem: 1. O2 2 LITRES VIA NASAL CANULA. 2. CPAP 20 CM H20 PRESSURE DURING NIGHT TIME. 3. ALBUTEROL/ATROVENT AEROSOL TREATMENTS Q 6 HOURS. 4. CONTINUE I/V SOLUMEDRAL. 5. CONTINUE LEVAQUINE 6. RECOMMEND S/C LOVENOX. (2) Acute CHF (congestive heart failure) Current Visit: Yes Status: Acute Qualifiers: Congestive heart failure type: systolic Qualified Code(s): I50.21 - Acute systolic (congestive) heart failure Plan to address problem: Management as per cardiology. (3) Sleep apnea, obstructive Current Visit: Yes Status: Acute Plan to address problem: Continue CPAP 20 cm H2O pressure. (4) Morbid obesity due to excess calories Current Visit: No Status: Chronic Plan to address problem: Recommend to loose weight. Consult document management analyst for weight reduction diet. (5) Dilated cardiomyopathy Current Visit: No Status: Chronic Plan to address problem: Management as per cardiology. (6) Cardiac defibrillator in place Current Visit: No Status: Chronic Plan to address problem: Management as per cardiology. (7) HTN (hypertension) Current Visit: No Status: Chronic Qualifiers: Hypertension type: essential hypertension Qualified Code(s): I10 - Essential (primary) hypertension Plan to address problem: Management as per primary care. (8) Diabetes Current Visit: No Status: Acute Qualifiers: Diabetes mellitus type: type 2 Diabetes mellitus complication status: with circulatory complication Diabetes mellitus complication detail: D Diabetic retinopathy severity: D Proliferative retinopathy type: P Diabetes mellitus macular edema: D Diabetes mellitus senior living insulin use: D Laterality: L Chronic kidney disease stage: C Plan to address problem: Management as per primary care. Subjective Date of service: 02/18/17 Principal diagnosis: Acute COPD exacerbation Interval history: Patient alert, awake and Resting on room air.O2 satuaration 98%. No acute respiratory distress. Objective Vital Signs - 12hr 02/18/17 02/18/17 02/18/17 04:00 08:20 09:40 Temperature 98.7 F 97.7 F Pulse Rate Pulse Rate [ Apical] Pulse Rate [ 60 74 Left Brachial] Respiratory 22 20 Rate Blood Pressure 124/81 Blood Pressure 125/80 124/81 [Left Arm] O2 Sat by Pulse 98 98 Oximetry 02/18/17 02/18/17 02/18/17 09:41 09:42 12:17 Temperature 98.2 F Pulse Rate 75 Pulse Rate [ 72 Apical] Pulse Rate [ Left Brachial] Respiratory 24 Rate Blood Pressure 124/81 124/81 Blood Pressure 119/70 [Left Arm] O2 Sat by Pulse 97 Oximetry Constitutional: no acute distress, alert Eyes: non-icteric ENT: oropharynx moist Neck: supple, no lymphadenopathy Effort: mildly labored Ascultation: Bilateral: diminished breath sounds, wheezes Cardiovascular: regular rate and rhythm Gastrointestinal: normoactive bowel sounds, soft, non-tender Integumentary: normal Extremities: no cyanosis, pink and warm, pulses normal, edema Neurologic: normal mental status, non-focal exam, pupils equal and round, CN II- XII normal Psychiatric: mood appropriate, affect normal CBC and BMP: 02/16/17 04:44 02/18/17 11:10 ABG, PT/INR, D-dimer: PT/INR, D-dimer D-Dimer 408.38 ng/mlDDU (0-234) H 02/16/17 13:57 Abnormal lab findings: Abnormal Labs 02/11/17 02/12/17 02/12/17 21:06 05:56 11:32 WBC RDW Plt Count Lymph % (Auto) Lymph # Seg Neutrophils % Seg Neuts % (Manual) Lymphocytes % (Manual) Seg Neutrophils # Seg Neutrophils # Man Lymphocytes # (Manual) D-Dimer Sodium Potassium Chloride BUN Glucose POC Glucose 173 H 163 H 253 H 02/12/17 02/12/17 02/13/17 16:35 21:49 06:01 WBC 14.1 H RDW 18.4 H Plt Count Lymph % (Auto) Lymph # Seg Neutrophils % Seg Neuts % (Manual) 94.0 H Lymphocytes % (Manual) 2.0 L Seg Neutrophils # Seg Neutrophils # Man 13.3 H Lymphocytes # (Manual) 0.3 L D-Dimer Sodium Potassium Chloride BUN Glucose POC Glucose 166 H 206 H 02/13/17 02/13/17 02/13/17 06:01 06:18 11:38 WBC RDW Plt Count Lymph % (Auto) Lymph # Seg Neutrophils % Seg Neuts % (Manual) Lymphocytes % (Manual) Seg Neutrophils # Seg Neutrophils # Man Lymphocytes # (Manual) D-Dimer Sodium 136 L Potassium Chloride 97.7 L BUN 30 H Glucose 206 H POC Glucose 203 H 203 H 02/13/17 02/13/17 02/14/17 16:20 21:18 05:22 WBC 12.8 H RDW 18.1 H Plt Count 138 L Lymph % (Auto) 4.2 L Lymph # 0.5 L Seg Neutrophils % 89.5 H Seg Neuts % (Manual) Lymphocytes % (Manual) Seg Neutrophils # 11.5 H Seg Neutrophils # Man Lymphocytes # (Manual) D-Dimer Sodium Potassium Chloride BUN Glucose POC Glucose 193 H 205 H 02/14/17 02/14/17 02/14/17 05:22 06:31 11:04 WBC RDW Plt Count Lymph % (Auto) Lymph # Seg Neutrophils % Seg Neuts % (Manual) Lymphocytes % (Manual) Seg Neutrophils # Seg Neutrophils # Man Lymphocytes # (Manual) D-Dimer Sodium 136 L Potassium Chloride BUN 33 H Glucose 218 H POC Glucose 206 H 243 H 02/14/17 02/15/17 02/15/17 15:54 00:21 05:10 WBC RDW Plt Count Lymph % (Auto) Lymph # Seg Neutrophils % Seg Neuts % (Manual) Lymphocytes % (Manual) Seg Neutrophils # Seg Neutrophils # Man Lymphocytes # (Manual) D-Dimer Sodium Potassium Chloride BUN Glucose POC Glucose 266 H 144 H 162 H 02/15/17 02/15/17 02/15/17 05:36 05:36 10:59 WBC 13.7 H RDW 18.7 H Plt Count 128 L Lymph % (Auto) Lymph # Seg Neutrophils % Seg Neuts % (Manual) 98.0 H Lymphocytes % (Manual) 1.0 L Seg Neutrophils # Seg Neutrophils # Man 13.4 H Lymphocytes # (Manual) 0.1 L D-Dimer Sodium Potassium Chloride BUN 38 H Glucose 172 H POC Glucose 269 H 02/15/17 02/15/17 02/15/17 16:57 21:19 23:45 WBC RDW Plt Count Lymph % (Auto) Lymph # Seg Neutrophils % Seg Neuts % (Manual) Lymphocytes % (Manual) Seg Neutrophils # Seg Neutrophils # Man Lymphocytes # (Manual) D-Dimer Sodium Potassium Chloride BUN Glucose POC Glucose 243 H 260 H 289 H 02/16/17 02/16/1717 04:44 04:44 06:20 WBC RDW 18.6 H Plt Count 114 L Lymph % (Auto) Lymph # Seg Neutrophils % Seg Neuts % (Manual) 97.0 H Lymphocytes % (Manual) 1.0 L Seg Neutrophils # Seg Neutrophils # Man 10.1 H Lymphocytes # (Manual) 0.1 L D-Dimer Sodium 135 L Potassium Chloride 96.9 L BUN 35 H Glucose 204 H POC Glucose 163 H 02/16/17 02/16/17 02/16/17 11:28 13:57 16:42 WBC RDW Plt Count Lymph % (Auto) Lymph # Seg Neutrophils % Seg Neuts % (Manual) Lymphocytes % (Manual) Seg Neutrophils # Seg Neutrophils # Man Lymphocytes # (Manual) D-Dimer 408.38 H Sodium Potassium Chloride BUN Glucose POC Glucose 259 H 267 H 02/16/17 02/17/17 02/17/17 21:21 06:08 11:12 WBC RDW Plt Count Lymph % (Auto) Lymph # Seg Neutrophils % Seg Neuts % (Manual) Lymphocytes % (Manual) Seg Neutrophils # Seg Neutrophils # Man Lymphocytes # (Manual) D-Dimer Sodium Potassium Chloride BUN Glucose POC Glucose 227 H 169 H 162 H 02/17/17 02/17/17 02/18/17 16:04 21:19 11:10 WBC RDW Plt Count Lymph % (Auto) Lymph # Seg Neutrophils % Seg Neuts % (Manual) Lymphocytes % (Manual) Seg Neutrophils # Seg Neutrophils # Man Lymphocytes # (Manual) D-Dimer Sodium 134 L Potassium 5.7 H Chloride 94.0 L BUN 29 H Glucose 143 H POC Glucose 175 H 271 H 02/18/17 11:14 WBC RDW Plt Count Lymph % (Auto) Lymph # Seg Neutrophils % Seg Neuts % (Manual) Lymphocytes % (Manual) Seg Neutrophils # Seg Neutrophils # Man Lymphocytes # (Manual) D-Dimer Sodium Potassium Chloride BUN Glucose POC Glucose 132 H
[2017-02-18] MEDS: LEVEMIR SUB-Q SCH (22:18)
[2017-02-19] MEDS: DUONEB 0.5 MG-3 MG/3 ML SOLN IH SCH ×4 (02:17→19:51)
[2017-02-19] MEDS: NOVOLOG SUB-Q SCH ×4 (08:54→22:17)
[2017-02-19] MEDS: GLUCOTROL PO SCH (09:41)
--- NOTE | 2017-02-19 09:53 | XRay Report ---
ROUTINE CHEST, TWO VIEWS: HISTORY: Shortness of breath, COPD. Borderline to mild cardiomegaly and pulmonary venous congestion are stable since 02/11/17. A 3-lead cardiac device is unchanged in position. The lungs are clear. No evidence for pneumonia, CHF or pneumothorax. IMPRESSION: Borderline heart size and pulmonary venous structures. No CHF.
--- NOTE | 2017-02-19 09:57 | Progress Note ---
Assessment and Plan Shortness of breath - multifactorial COPD exacerbation Acute systolic heart failure Presence of automatic (implantable) cardiac defibrillator (Medtronic) AV paced on ECG Hx of Dilated non ischemic cardiomyopathy at least moderate MR with an EF 10-15% on echo 10/2016 normal coronaries by [facility] 09/2015 [place] Obese Hx of VT/VF -on amiodarone Hypertension Thrombocytopenia Deconditioning Recommendations: Continue diuretics and afterload reduction for systolic heart failure. Fluid restrictions Strict I's and O's. Daily weights. Subjective Date of service: 02/19/17 Principal diagnosis: Acute COPD exacerbation Interval history: Patient reports shortness of breath is less. Still having trouble with standing. Objective Vital Signs Temp Pulse Pulse Pulse Pulse Pulse Resp 02/19/17 05:00 97.7 F 65 18 02/19/17 02:22 65 02/19/17 02:10 63 02/19/17 02:02 71 02/18/17 21:38 71 02/18/17 21:15 75 02/18/17 21:02 71 02/18/17 20:00 98.5 F 71 20 02/18/17 16:54 98.4 F 74 20 02/18/17 14:00 02/18/17 13:41 75 02/18/17 13:31 73 02/18/17 12:17 98.2 F 72 24 Resp BP BP BP Pulse Ox 02/19/17 05:00 142/81 65 L 02/19/17 02:22 20 02/19/17 02:10 20 02/19/17 02:02 97 02/18/17 21:38 131/71 02/18/17 21:15 20 02/18/17 21:02 22 02/18/17 20:00 131/71 97 02/18/17 16:54 120/72 02/18/17 14:00 98 02/18/17 13:41 20 02/18/17 13:31 20 02/18/17 12:17 119/70 97 - Physical Examination General: No Apparent Distress HEENT: Positive: PERRL Neck: Positive: trachea midline Cardiac: Positive: Other (AV paced) Lungs: Positive: Decreased Breath Sounds Neuro: Positive: Grossly Intact Extremities: Present: +2 Edema - Labs and Meds Comprehensive Metabolic Panel 02/18/17 Range/Units 11:10 Sodium 134 L (137-145) mmol/L Potassium 5.7 H (3.6-5.0) mmol/L Chloride 94.0 L (98-107) mmol/L Carbon Dioxide 28 (22-30) mmol/L BUN 29 H (9-20) mg/dL Creatinine 1.1 (0.8-1.5) mg/dL Glucose 143 H (75-100) mg/dL Calcium 8.6 (8.4-10.2) mg/dL
[2017-02-19 10:23] LABS: Anion Gap 23 mmol/L; BUN/Creatinine Ratio 21.66; Blood Urea Nitrogen 26 mg/dL (9-20); Calcium 9.9 mg/dL (8.4-10.2); Carbon Dioxide 26 mmol/L (22-30); Chloride 114.6 mmol/L (98-107); Glucose 185 mg/dL (75-100); Potassium 5.8 mmol/L (3.6-5.0); Sodium 158 mmol/L (137-145)
[2017-02-19] MEDS: LOVENOX SUB-Q SCH (10:47)
[2017-02-19] MEDS: LASIX IV SCH (10:47)
[2017-02-19] MEDS: ZYLOPRIM PO SCH ×2 (10:48→22:08)
[2017-02-19] MEDS: ALDACTONE PO SCH (10:48)
[2017-02-19] MEDS: CORDARONE PO SCH (10:48)
[2017-02-19] MEDS: COREG PO SCH ×2 (10:48→22:18)
[2017-02-19] MEDS: ASPIRIN PO SCH (10:49)
[2017-02-19] MEDS: MAG-OX PO SCH (10:49)
[2017-02-19] MEDS: ZESTRIL PO SCH ×2 (10:49→22:16)
[2017-02-19] MEDS: IMDUR PO SCH (10:49)
[2017-02-19] MEDS: FEOSOL PO SCH ×2 (10:50→22:08)
[2017-02-19] MEDS ORDERED: KIONEX PO ONE (11:07)
--- NOTE | 2017-02-19 13:26 | Progress Note ---
Assessment and Plan Assessment and plan: Patient is a 45-year-old man with a history of hypertension, type 2 diabetes mellitus, gout, obstructive sleep apnea, COPD, systolic heart failure with AICD and morbid obesity bmi 62.1 who presents with shortness of breath. Chest x-ray shows cardiomegaly and pulmonary venous congestion. -Acute on chronic systolic heart failure: Continue diuresis, cardiology is following -Acute exacerbation COPD: Continue nebulizer, stop Levaquin (finished coarse) and wean steroids -Uncontrolled type 2 diabetes diabetes mellitus due to steroids -Morbid obesity BMI 63.3->now 62.1 -New issue: hyperkalemia and hypernatremia: stop Aldactone (notified Cardiology) , give kayexalate repeat potassium levels. -Anticipate discharge tomorrow if electrolytes stable and cleared by cardiology. Also, weaning iv steroids. -DVT prophylaxis: sc lovenox, he doesn't wear the scd. History Interval history: Patient seen and examined. Follow up on shortness of breath which is improved. Overnight uneventful. No cp, n/v or severe headaches. Imaging, old records, testing, labs, nursing notes reviewed. Plan discussed with patient. Hospitalist Physical - Physical exam Narrative exam: GEN: WDWN, NAD, AWAKE, ALERT, ORIENTATED 3 HEENT: NCAT, PERRL, EOMI, OP CLEAR NECK: SUPPLE, NO THYROMEGALY, NO JVD, NO LAD CVS: RRR, NORMAL S1S2 LUNGS/CHEST: Bibasilar crackles NORMAL CHEST EXPANSION B, GOOD AIR ENTRY B ABD: SOFT NTND, GBS, NO REBOUND OR GUARDING EXT/SKIN: Bilateral pitting edema MSK: FROM X 4 EXTREMITIES NEURO: CN 2-12 GROSSLY INTACT, NO new FOCAL DEFICITS PSY: CALM - Constitutional Vitals: Temp Pulse Resp BP Pulse Ox 97.6 F 75 20 141/90 97 02/19/17 12:44 02/19/17 12:44 02/19/17 12:44 02/19/17 12:44 02/19/17 12:44 General appearance: Present: no acute distress Results - Labs CBC & Chem 7: 02/16/17 04:44 02/19/17 09:52 Labs: Laboratory Last Values WBC 10.4 K/mm3 (4.5-11.0) 02/16/17 04:44 RBC 4.46 M/mm3 (3.65-5.03) 02/16/17 04:44 Hgb 13.2 gm/dl (11.8-15.2) 02/16/17 04:44 Hct 40.3 % (35.5-45.6) 02/16/17 04:44 MCV 90 fl (84-94) 02/16/17 04:44 MCH 30 pg (28-32) 02/16/17 04:44 MCHC 33 % (32-34) 02/16/17 04:44 RDW 18.6 % (13.2-15.2) H 02/16/17 04:44 Plt Count 114 K/mm3 (140-440) L 02/16/17 04:44 Lymph % (Auto) 4.2 % (13.4-35.0) L 02/14/17 05:22 Haines % (Auto) 6.0 % (0.0-7.3) 02/14/17 05:22 Eos % (Auto) 0.0 % (0.0-4.3) 02/14/17 05:22 Baso % (Auto) 0.3 % (0.0-1.8) 02/14/17 05:22 Lymph # 0.5 K/mm3 (1.2-5.4) L 02/14/17 05:22 Haines # 0.8 K/mm3 (0.0-0.8) 02/14/17 05:22 Eos # 0.0 K/mm3 (0.0-0.4) 02/14/17 05:22 Baso # 0.0 K/mm3 (0.0-0.1) 02/14/17 05:22 Add Manual Diff Complete 02/16/17 04:44 Total Counted 100 02/16/17 04:44 Seg Neutrophils % [place] Bottom Maker 02/16/17 04:44 Seg Neuts % (Manual) 97.0 % (40.0-70.0) H 02/16/17 04:44 Band Neutrophils % 0 % 02/16/17 04:44 Lymphocytes % (Manual) 1.0 % (13.4-35.0) L 02/16/17 04:44 Reactive Lymphs % (Man) 0 % 02/16/17 04:44 Monocytes % (Manual) 2.0 % (0.0-7.3) 02/16/17 04:44 Eosinophils % (Manual) 0 % (0.0-4.3) 02/16/17 04:44 Basophils % (Manual) 0 % (0.0-1.8) 02/16/17 04:44 Metamyelocytes % 0 % 02/16/17 04:44 Myelocytes % 0 % 02/16/17 04:44 Promyelocytes % 0 % 02/16/17 04:44 Blast Cells % 0 % 02/16/17 04:44 Nucleated RBC % Not Reportable 02/16/17 04:44 Seg Neutrophils # 11.5 K/mm3 (1.8-7.7) H 02/14/17 05:22 Seg Neutrophils # Man 10.1 K/mm3 (1.8-7.7) H 02/16/17 04:44 Band Neutrophils # 0.0 K/mm3 02/16/17 04:44 Lymphocytes # (Manual) 0.1 K/mm3 (1.2-5.4) L 02/16/17 04:44 Abs React Lymphs (Man) 0.0 K/mm3 02/16/17 04:44 Monocytes # (Manual) 0.2 K/mm3 (0.0-0.8) 02/16/17 04:44 Eosinophils # (Manual) 0.0 K/mm3 (0.0-0.4) 02/16/17 04:44 Basophils # (Manual) 0.0 K/mm3 (0.0-0.1) 02/16/17 04:44 Metamyelocytes # 0.0 K/mm3 02/16/17 04:44 Myelocytes # 0.0 K/mm3 02/16/17 04:44 Promyelocytes # 0.0 K/mm3 02/16/17 04:44 Blast Cells # 0.0 K/mm3 02/16/17 04:44 WBC Morphology Not Reportable 02/16/17 04:44 Hypersegmented Neuts Not Reportable 02/16/17 04:44 Hyposegmented Neuts Not Reportable 02/16/17 04:44 Hypogranular Neuts Not Reportable 02/16/17 04:44 Smudge Cells Not Reportable 02/16/17 04:44 Toxic Granulation Not Reportable 02/16/17 04:44 Toxic Vacuolation Not Reportable 02/16/17 04:44 Dohle Bodies Not Reportable 02/16/17 04:44 Pelger-Huet Anomaly Not Reportable 02/16/17 04:44 Kanika Rods Not Reportable 02/16/17 04:44 Platelet Estimate Appears decreased 02/16/17 04:44 Clumped Platelets Not Reportable 02/16/17 04:44 Plt Clumps, EDTA Not Reportable 02/16/17 04:44 Large Platelets Not Reportable 02/16/17 04:44 Giant Platelets Not Reportable 02/16/17 04:44 Platelet Satelliting Not Reportable 02/16/17 04:44 Plt Morphology Comment Not Reportable 02/16/17 04:44 RBC Morphology Normal 02/16/17 04:44 Dimorphic RBCs Not Reportable 02/16/17 04:44 Polychromasia Not Reportable 02/16/17 04:44 Hypochromasia Not Reportable 02/16/17 04:44 Poikilocytosis Not Reportable 02/16/17 04:44 Anisocytosis Not Reportable 02/16/17 04:44 Microcytosis Not Reportable 02/16/17 04:44 Macrocytosis Not Reportable 02/16/17 04:44 Spherocytes Not Reportable 02/16/17 04:44 Pappenheimer Bodies Not Reportable 02/16/17 04:44 Sickle Cells Not Reportable 02/16/17 04:44 Target Cells Not Reportable 02/16/17 04:44 Tear Drop Cells Not Reportable 02/16/17 04:44 Ovalocytes Not Reportable 02/16/17 04:44 Helmet Cells Not Reportable 02/16/17 04:44 Jefferson-Newberry Bodies Not Reportable 02/16/17 04:44 Rayne Rings Not Reportable 02/16/17 04:44 Arcadia Cells Not Reportable 02/16/17 04:44 Bite Cells Not Reportable 02/16/17 04:44 Crenated Cell Not Reportable 02/16/17 04:44 Elliptocytes Not Reportable 02/16/17 04:44 Acanthocytes (Spur) Not Reportable 02/16/17 04:44 Rouleaux Not Reportable 02/16/17 04:44 Hemoglobin C Crystals Not Reportable 02/16/17 04:44 Schistocytes Not Reportable 02/16/17 04:44 Malaria parasites Not Reportable 02/16/17 04:44 Kenroy Bodies Not Reportable 02/16/17 04:44 Hem Pathologist Commnt No 02/16/17 04:44 D-Dimer 408.38 ng/mlDDU (0-234) H 02/16/17 13:57 Sodium 158 mmol/L (137-145) H D 02/19/17 09:52 Potassium 5.8 mmol/L (3.6-5.0) H 02/19/17 09:52 Chloride 114.6 mmol/L (98-107) H 02/19/17 09:52 Carbon Dioxide 26 mmol/L (22-30) 02/19/17 09:52 Anion Gap 23 mmol/L 02/19/17 09:52 BUN 26 mg/dL (9-20) H 02/19/17 09:52 Creatinine 1.2 mg/dL (0.8-1.5) 02/19/17 09:52 Estimated GFR > 60 ml/min 02/19/17 09:52 BUN/Creatinine Ratio 21.66 % 02/19/17 09:52 Glucose 185 mg/dL (75-100) H 02/19/17 09:52 POC Glucose 128 (70-105) H 02/19/17 06:59 Calcium 9.9 mg/dL (8.4-10.2) D 02/19/17 09:52 Troponin T < 0.010 ng/mL (0.00-0.029) 02/11/17 15:01 NT-Pro-B Natriuret Pep 7033 pg/mL (0-450) H 02/11/17 15:01
[2017-02-19] MEDS: PROVENTIL IH PRN (16:26)
[2017-02-19 17:28] LABS: ISTAT Base Excess 3; ISTAT DEVICE 0; ISTAT HCO3 26.6; ISTAT PCO2 36.7 (35-45); ISTAT PH 7.469 (7.35-7.45); ISTAT PO2 101 (80-105); ISTAT SO2 98; ISTAT TCO2 28
[2017-02-19 18:02] LABS: Anion Gap 19 mmol/L; Blood Urea Nitrogen 34 mg/dL (9-20); Carbon Dioxide 30 mmol/L (22-30); Chloride 92.2 mmol/L (98-107); Glucose 87 mg/dL (75-100); Sodium 136 mmol/L (137-145)
--- NOTE | 2017-02-19 19:09 | Progress Note ---
Assessment and Plan Patient alert, awake and Resting on room air.O2 satuaration 96%. No acute respiratory distress. Chest xray obtained today mild cardiomegaly, No CHF. ABGs reported PH 7.46, PCO2 37, PO2 101, HCO3 27, O2 saturation 98% on room air. - Patient Problems (1) Acute exacerbation of chronic obstructive pulmonary disease (COPD) Current Visit: Yes Status: Acute Plan to address problem: 1 CPAP 20 CM H20 PRESSURE DURING NIGHT TIME. 2. ALBUTEROL/ATROVENT AEROSOL TREATMENTS Q 6 HOURS. 3. TAPER I/V SOLUMEDRAL. 4. CONTINUE LEVAQUINE 5. RECOMMEND S/C LOVENOX. (2) Acute CHF (congestive heart failure) Current Visit: Yes Status: Acute Qualifiers: Congestive heart failure type: systolic Qualified Code(s): I50.21 - Acute systolic (congestive) heart failure Plan to address problem: Management as per cardiology. Chest xray showing improvement in CHF. (3) Sleep apnea, obstructive Current Visit: Yes Status: Acute Plan to address problem: Continue CPAP 20 cm H2O pressure. (4) Morbid obesity due to excess calories Current Visit: No Status: Chronic Plan to address problem: Recommend to loose weight. Consult slipcover cutter for weight reduction diet. (5) Dilated cardiomyopathy Current Visit: No Status: Chronic Plan to address problem: Management as per cardiology. (6) Cardiac defibrillator in place Current Visit: No Status: Chronic Plan to address problem: Management as per cardiology. (7) HTN (hypertension) Current Visit: No Status: Chronic Qualifiers: Hypertension type: essential hypertension Qualified Code(s): I10 - Essential (primary) hypertension Plan to address problem: Management as per primary care. (8) Diabetes Current Visit: No Status: Acute Qualifiers: Diabetes mellitus type: type 2 Diabetes mellitus complication status: with circulatory complication Diabetes mellitus complication detail: D Diabetic retinopathy severity: D Proliferative retinopathy type: P Diabetes mellitus macular edema: D Diabetes mellitus intensive care nurse insulin use: D Laterality: L Chronic kidney disease stage: C Plan to address problem: Management as per primary care. Subjective Date of service: 02/19/17 Principal diagnosis: Acute COPD exacerbation Interval history: Patient alert, awake and Resting on room air.O2 satuaration 96%. No acute respiratory distress. Patients chest xray obtained today showed mild cardiomegaly. No CHF. ABGs reported PH 7.46, PCO2 37, PO2 101, HCO3 27, O2 saturation 98% on room air. Objective Vital Signs - 12hr 02/19/17 02/19/17 02/19/17 08:25 08:45 10:17 Temperature 97.3 F L Pulse Rate Pulse Rate [ 89 Anterior Bilateral Throughout] Pulse Rate [ 72 73 Left Brachial] Respiratory 24 24 Rate Respiratory 18 Rate [Anterior Bilateral Throughout] Blood Pressure Blood Pressure 150/92 [Left Arm] O2 Sat by Pulse 94 99 Oximetry 02/19/17 02/19/17 02/19/17 10:36 10:48 10:49 Temperature Pulse Rate 72 70 Pulse Rate [ 68 Anterior Bilateral Throughout] Pulse Rate [ Left Brachial] Respiratory Rate Respiratory 18 Rate [Anterior Bilateral Throughout] Blood Pressure 150/92 150/92 Blood Pressure [Left Arm] O2 Sat by Pulse Oximetry 02/19/17 02/19/17 02/19/17 12:44 16:38 16:40 Temperature 97.6 F 97.9 F Pulse Rate Pulse Rate [ 68 Anterior Bilateral Throughout] Pulse Rate [ 75 72 Left Brachial] Respiratory 20 20 Rate Respiratory 17 Rate [Anterior Bilateral Throughout] Blood Pressure Blood Pressure 141/90 123/67 [Left Arm] O2 Sat by Pulse 97 96 Oximetry 02/19/17 16:57 Temperature Pulse Rate Pulse Rate [ 70 Anterior Bilateral Throughout] Pulse Rate [ Left Brachial] Respiratory Rate Respiratory 17 Rate [Anterior Bilateral Throughout] Blood Pressure Blood Pressure [Left Arm] O2 Sat by Pulse Oximetry Constitutional: no acute distress, alert Eyes: non-icteric ENT: oropharynx moist Neck: supple, no lymphadenopathy Effort: mildly labored Ascultation: Bilateral: diminished breath sounds Cardiovascular: regular rate and rhythm Gastrointestinal: normoactive bowel sounds, soft, non-tender Integumentary: normal Extremities: no cyanosis, pink and warm, pulses normal, edema Neurologic: normal mental status, non-focal exam, pupils equal and round, CN II- XII normal Psychiatric: mood appropriate, affect normal CBC and BMP: 02/16/17 04:44 02/19/17 16:31 ABG, PT/INR, D-dimer: ABG POC ABG pH 7.469 (7.35-7.45) H 02/19/17 10:36 POC ABG pCO2 36.7 (35-45) 02/19/17 10:36 POC ABG pO2 101 (80-105) 02/19/17 10:36 POC ABG HCO3 26.6 02/19/17 10:36 POC ABG Total CO2 28 02/19/17 10:36 POC ABG O2 Sat 98 02/19/17 10:36 PT/INR, D-dimer D-Dimer 408.38 ng/mlDDU (0-234) H 02/16/17 13:57 Abnormal lab findings: Abnormal Labs 02/11/17 02/12/17 02/12/17 21:06 05:56 11:32 WBC RDW Plt Count Lymph % (Auto) Lymph # Seg Neutrophils % Seg Neuts % (Manual) Lymphocytes % (Manual) Seg Neutrophils # Seg Neutrophils # Man Lymphocytes # (Manual) D-Dimer POC ABG pH Sodium Potassium Chloride BUN Glucose POC Glucose 173 H 163 H 253 H 02/12/17 02/12/17 02/13/17 16:35 21:49 06:01 WBC 14.1 H RDW 18.4 H Plt Count Lymph % (Auto) Lymph # Seg Neutrophils % Seg Neuts % (Manual) 94.0 H Lymphocytes % (Manual) 2.0 L Seg Neutrophils # Seg Neutrophils # Man 13.3 H Lymphocytes # (Manual) 0.3 L D-Dimer POC ABG pH Sodium Potassium Chloride BUN Glucose POC Glucose 166 H 206 H 02/13/17 02/13/17 02/13/17 06:01 06:18 11:38 WBC RDW Plt Count Lymph % (Auto) Lymph # Seg Neutrophils % Seg Neuts % (Manual) Lymphocytes % (Manual) Seg Neutrophils # Seg Neutrophils # Man Lymphocytes # (Manual) D-Dimer POC ABG pH Sodium 136 L Potassium Chloride 97.7 L BUN 30 H Glucose 206 H POC Glucose 203 H 203 H 02/13/17 02/13/17 02/14/17 16:20 21:18 05:22 WBC 12.8 H RDW 18.1 H Plt Count 138 L Lymph % (Auto) 4.2 L Lymph # 0.5 L Seg Neutrophils % 89.5 H Seg Neuts % (Manual) Lymphocytes % (Manual) Seg Neutrophils # 11.5 H Seg Neutrophils # Man Lymphocytes # (Manual) D-Dimer POC ABG pH Sodium Potassium Chloride BUN Glucose POC Glucose 193 H 205 H 02/14/17 02/14/17 02/14/17 05:22 06:31 11:04 WBC RDW Plt Count Lymph % (Auto) Lymph # Seg Neutrophils % Seg Neuts % (Manual) Lymphocytes % (Manual) Seg Neutrophils # Seg Neutrophils # Man Lymphocytes # (Manual) D-Dimer POC ABG pH Sodium 136 L Potassium Chloride BUN 33 H Glucose 218 H POC Glucose 206 H 243 H 02/14/17 02/15/17 02/15/17 15:54 00:21 05:10 WBC RDW Plt Count Lymph % (Auto) Lymph # Seg Neutrophils % Seg Neuts % (Manual) Lymphocytes % (Manual) Seg Neutrophils # Seg Neutrophils # Man Lymphocytes # (Manual) D-Dimer POC ABG pH Sodium Potassium Chloride BUN Glucose POC Glucose 266 H 144 H 162 H 02/15/17 02/15/17 02/15/17 05:36 05:36 10:59 WBC 13.7 H RDW 18.7 H Plt Count 128 L Lymph % (Auto) Lymph # Seg Neutrophils % Seg Neuts % (Manual) 98.0 H Lymphocytes % (Manual) 1.0 L Seg Neutrophils # Seg Neutrophils # Man 13.4 H Lymphocytes # (Manual) 0.1 L D-Dimer POC ABG pH Sodium Potassium Chloride BUN 38 H Glucose 172 H POC Glucose 269 H 02/15/17 02/15/17 02/15/17 16:57 21:19 23:45 WBC RDW Plt Count Lymph % (Auto) Lymph # Seg Neutrophils % Seg Neuts % (Manual) Lymphocytes % (Manual) Seg Neutrophils # Seg Neutrophils # Man Lymphocytes # (Manual) D-Dimer POC ABG pH Sodium Potassium Chloride BUN Glucose POC Glucose 243 H 260 H 289 H 02/16/17 02/16/17 02/16/17 04:44 04:44 06:20 WBC RDW 18.6 H Plt Count 114 L Lymph % (Auto) Lymph # Seg Neutrophils % Seg Neuts % (Manual) 97.0 H Lymphocytes % (Manual) 1.0 L Seg Neutrophils # Seg Neutrophils # Man 10.1 H Lymphocytes # (Manual) 0.1 L D-Dimer POC ABG pH Sodium 135 L Potassium Chloride 96.9 L BUN 35 H Glucose 204 H POC Glucose 163 H 02/16/17 02/16/17 02/16/17 11:28 13:57 16:42 WBC RDW Plt Count Lymph % (Auto) Lymph # Seg Neutrophils % Seg Neuts % (Manual) Lymphocytes % (Manual) Seg Neutrophils # Seg Neutrophils # Man Lymphocytes # (Manual) D-Dimer 408.38 H POC ABG pH Sodium Potassium Chloride BUN Glucose POC Glucose 259 H 267 H 02/16/17 02/17/17 02/17/17 21:21 06:08 11:12 WBC RDW Plt Count Lymph % (Auto) Lymph # Seg Neutrophils % Seg Neuts % (Manual) Lymphocytes % (Manual) Seg Neutrophils # Seg Neutrophils # Man Lymphocytes # (Manual) D-Dimer POC ABG pH Sodium Potassium Chloride BUN Glucose POC Glucose 227 H 169 H 162 H 02/17/17 02/17/17 02/18/17 16:04 21:19 11:10 WBC RDW Plt Count Lymph % (Auto) Lymph # Seg Neutrophils % Seg Neuts % (Manual) Lymphocytes % (Manual) Seg Neutrophils # Seg Neutrophils # Man Lymphocytes # (Manual) D-Dimer POC ABG pH Sodium 134 L Potassium 5.7 H Chloride 94.0 L BUN 29 H Glucose 143 H POC Glucose 175 H 271 H 02/18/17 02/18/17 02/18/17 11:14 16:14 21:43 WBC RDW Plt Count Lymph % (Auto) Lymph # Seg Neutrophils % Seg Neuts % (Manual) Lymphocytes % (Manual) Seg Neutrophils # Seg Neutrophils # Man Lymphocytes # (Manual) D-Dimer POC ABG pH Sodium Potassium Chloride BUN Glucose POC Glucose 132 H 112 H 292 H 02/19/17 02/19/17 02/19/17 06:59 09:52 10:36 WBC RDW Plt Count Lymph % (Auto) Lymph # Seg Neutrophils % Seg Neuts % (Manual) Lymphocytes % (Manual) Seg Neutrophils # Seg Neutrophils # Man Lymphocytes # (Manual) D-Dimer POC ABG pH 7.469 H Sodium 158 H D Potassium 5.8 H Chloride 114.6 H BUN 26 H Glucose 185 H POC Glucose 128 H 02/19/17 02/19/17 12:05 16:31 WBC RDW Plt Count Lymph % (Auto) Lymph # Seg Neutrophils % Seg Neuts % (Manual) Lymphocytes % (Manual) Seg Neutrophils # Seg Neutrophils # Man Lymphocytes # (Manual) D-Dimer POC ABG pH Sodium 136 L D Potassium Chloride 92.2 L BUN 34 H Glucose POC Glucose 149 H Chest x-ray: report reviewed (borderline heart size. No CHF.), image reviewed
[2017-02-19 20:19] LABS: BUN/Creatinine Ratio 26.15; Calcium 9.1 mg/dL (8.4-10.2); Chloride 91.6 mmol/L (98-107); Potassium 5.2 mmol/L (3.6-5.0)
[2017-02-19] MEDS: LEVEMIR SUB-Q SCH (22:17)
[2017-02-20] MEDS: DUONEB 0.5 MG-3 MG/3 ML SOLN IH SCH ×4 (02:11→19:38)
[2017-02-20 06:37] LABS: Hematocrit 44.2 % (35.5-45.6); Hemoglobin 14.4 gm/dl (11.8-15.2); Mean Corpuscular HGB Conc 33 % (32-34); Mean Corpuscular Hemoglobin 29 pg (28-32); Mean Corpuscular Volume 90 fl (84-94); Red Blood Count 4.91 M/mm3 (3.65-5.03); Red Cell Distribution Width 18.8 % (13.2-15.2); White Blood Count 10.6 K/mm3 (4.5-11.0)
[2017-02-20 06:40] LABS: Platelet Count 91 K/mm3 (140-440)
[2017-02-20 06:57] LABS: Anion Gap 17 mmol/L; Blood Urea Nitrogen 33 mg/dL (9-20); Calcium 8.5 mg/dL (8.4-10.2); Carbon Dioxide 29 mmol/L (22-30); Chloride 95.6 mmol/L (98-107); Glucose 131 mg/dL (75-100); Potassium 5.7 mmol/L (3.6-5.0); Sodium 136 mmol/L (137-145)
[2017-02-20] MEDS: NOVOLOG SUB-Q SCH ×4 (08:21→22:26)
--- NOTE | 2017-02-20 08:51 | Discharge Summary ---
Providers - Providers Date of Admission: 02/11/17 18:14 Date of discharge: 02/21/17 Attending physician: CLAUDIO WILSON MD 02/12/17 10:28 Consult to Wound/ET Nurse [CONS] Routine Reason For Exam: wound eval 02/12/17 11:10 Consult to Physician [CONS] Routine Consulting Provider: LILLIANA JAMES Reason For Exam: asthma Place consult to:: DR. JAMES Notified:: DR. Hinton Phone number called:: [phone] Was contact made?: Yes If yes, spoke with:: NANCY Time called:: 14:26 Comment:: DONNELL NOTIFIED 02/13/17 10:21 Consult to Physician [CONS] Routine Consulting Provider: SHO ORTEZ Reason For Exam: chf Place consult to:: DR. ORTEZ Notified:: ROSA ISELA AG Phone number called:: IN HOUSE Was contact made?: Yes If yes, spoke with:: ROSA ISELA Time called:: 13:16 Comment:: DONNELL AWARE 02/16/17 12:06 Physical Therapy Evaluation and Treat [CONS] Urgent Comment: Reason For Exam: PT eval for assistive device when ambulating. 02/18/17 21:43 Consult to Wound/ET Nurse [CONS] Routine Reason For Exam: wound eval Primary care physician: HAND ETCHER Hospitalization Reason for admission: chf Condition: Stable Hospital course: Patient is a 45-year-old man with a history of hypertension, type 2 diabetes mellitus, gout, obstructive sleep apnea, COPD, systolic heart failure with AICD and morbid obesity bmi 62.1 who presents with shortness of breath. Was in the hospital and discharged on Lasix is that of furosemide. Patient did gain over 32 pounds of weight in the week. Protein to go back into full respiratory distress. In the hospital he was really diuresed with IV Lasix and has subsequently been switched to torsemide. Also put a home health progress for him on discharge to use telemedicine monitoring his daily weights. Extensive counseling was provided to the patient and dietary discretion. Patient verbalizes understanding also needs a follow-up with cardiology. He did have an elevated potassium initially Aldactone was discontinued but after discussion with cardiology this was reinstated. Patient was not placed on potassium. On follow-up with cardiology this will be decided if he needs potassium supplementation. Discharge diagnosis -Acute on chronic systolic heart failure -Acute exacerbation COPD -Acute on chronic respiratory failure secondary to COPD and congestive heart failure -Uncontrolled type 2 diabetes diabetes mellitus -Morbid obesity BMI 63.3 -hyperkalemia and hypernatremia: -Status post automatic (implantable) cardiac defibrillator (Medtronic) - Dilated non ischemic cardiomyopathy -[place] -Hx of VT/VF -Hypertension -Thrombocytopenia Disposition: DISCHARGED TO HOME OR SELFCARE Time spent for discharge: 35 mins Core Measure Documentation - Palliative Care Palliative Care/ Comfort Measures: Not Applicable - Core Measures Any of the following diagnoses?: heart failure - VTE Discharge Requirements Deep Vein Thrombosis/Pulmonary Embolism Present on Admission: No - Heart Failure Discharge Requirements BRITTA/ARB for LVSD if EF <40%: Yes Beta brandon at discharge: Yes Exam - Physical Exam Narrative exam: VITAL SIGNS: Reviewed. GENERAL: The patient appeared well nourished and normally developed, morbidly obese. Vital signs as documented. HEAD: No signs of head trauma. EYES: Pupils are equal. Extraocular motions intact. EARS: Hearing grossly intact. MOUTH: Oropharynx is normal. NECK: No adenopathy, no JVD. CHEST: Chest with clear breath sounds bilaterally. No wheezes, rales, or rhonchi. CARDIAC: Regular rate and rhythm. S1 and S2, without murmurs, gallops, or rubs. VASCULAR: Trace Edema. Peripheral pulses normal and equal in all extremities. ABDOMEN: Soft, without detectable tenderness. No sign of distention. No rebound or guarding, and no masses palpated. Bowel Sounds normal. MUSCULOSKELETAL: Good range of motion of all major joints. Extremities without clubbing, cyanosis. Trace pedal edema present NEUROLOGIC EXAM: Alert and oriented x 3. No focal sensory or strength deficits. Speech normal. Follows commands. PSYCHIATRIC: Mood normal. SKIN: No rash or lesions. - Constitutional Vitals: Temp Pulse Resp BP Pulse Ox 97.4 F L 74 20 128/84 99 02/20/17 08:00 02/20/17 08:00 02/20/17 08:00 02/20/17 08:00 02/20/17 08:00 Plan Activity: advance as tolerated, fall precautions Diet: low salt, diabetic Special Instructions: record daily weights, record daily BP diary, record blood sugar diary, physical therapy, home health RN (Telemonitoring for DAILY WEIGHT) Additional Instructions: REPEAT BASIC METABOLIC PROFILE LAB TEST IN 3 DAYS AT PCP OFFICE. AT THAT TIME PCP OR SENIOR [employer]IFTS OFFICER CAN RESTART ON POTASSIUM SUPPLEMENT. Follow up with: PRIMARY CARE, [Primary Care Provider] - 3-5 Days YUDELKA LOUIS MD [Staff Physician] - 7 Days OMID ALVARES MD [Staff Physician] - 3 Days Prescriptions: Metolazone [Zaroxolyn] 5 mg PO 2XW #10 tablet predniSONE [Deltasone] 10 mg PO .TAPER #21 tab Spironolactone [Aldactone] 25 mg PO BID #60 tablet Torsemide [Demadex] 100 mg PO QDAY #30 tablet
[2017-02-20] MEDS: GLUCOTROL PO SCH (09:27)
[2017-02-20] MEDS ORDERED: KIONEX PO ONE ×2 (09:30→17:30)
[2017-02-20] MEDS: LASIX IV SCH (10:52)
[2017-02-20] MEDS: LOVENOX SUB-Q SCH (10:52)
[2017-02-20] MEDS: MAG-OX PO SCH (10:53)
[2017-02-20] MEDS: ZESTRIL PO SCH ×2 (10:53→22:25)
[2017-02-20] MEDS: IMDUR PO SCH (10:54)
[2017-02-20] MEDS: COREG PO SCH ×2 (10:54→22:24)
[2017-02-20] MEDS: ASPIRIN PO SCH (10:54)
[2017-02-20] MEDS: FEOSOL PO SCH ×2 (10:54→22:24)
[2017-02-20] MEDS: CORDARONE PO SCH (10:55)
[2017-02-20] MEDS: ZYLOPRIM PO SCH ×2 (10:55→22:24)
--- NOTE | 2017-02-20 11:17 | Progress Note ---
Assessment and Plan Shortness of breath - multifactorial COPD exacerbation Acute systolic heart failure Presence of automatic (implantable) cardiac defibrillator (Medtronic) AV paced on ECG Hx of Dilated non ischemic cardiomyopathy at least moderate MR with an EF 10-15% on echo 10/2016 normal coronaries by [facility] 09/2015 [place] Obese Hx of VT/VF -on amiodarone Hypertension Thrombocytopenia Deconditioning Hyperkalemia potassium and aldactone discontinued Recommendations: Continue diuretics and afterload reduction for systolic heart failure. Upon discharge please ensure the patient goes home on torsemide 100mg once a day and metolazone 5mg once a week. F/U with Dr Salazar for repeat labs in 3 days. Subjective Date of service: 02/20/17 Principal diagnosis: Acute COPD exacerbation Interval history: Patient resting in bed. No distress noted. Aldactone and potassium discontinued due to potassium of 5.7. Objective Vital Signs Temp Pulse Pulse Pulse Pulse Resp Resp 02/20/17 10:54 81 02/20/17 10:53 81 02/20/17 08:00 97.4 F L 74 20 02/20/17 04:13 97.9 F 60 20 02/20/17 02:21 73 19 02/20/17 02:11 67 18 02/19/17 23:14 98.7 F 75 22 02/19/17 22:18 75 02/19/17 22:16 75 02/19/17 22:00 86 20 02/19/17 20:01 70 18 02/19/17 19:52 71 19 02/19/17 16:57 70 17 02/19/17 16:40 97.9 F 72 20 02/19/17 16:38 68 17 02/19/17 12:44 97.6 F 75 20 BP BP Pulse Ox 02/20/17 10:54 135/90 02/20/17 10:53 135/90 02/20/17 08:00 128/84 99 02/20/17 04:13 132/77 97 02/20/17 02:21 02/20/17 02:11 02/19/17 23:14 112/69 96 02/19/17 22:18 112/69 02/19/17 22:16 112/69 02/19/17 22:00 02/19/17 20:01 02/19/17 19:52 02/19/17 16:57 02/19/17 16:40 123/67 96 02/19/17 16:38 02/19/17 12:44 141/90 97 - Physical Examination General: No Apparent Distress, Other (Obese) HEENT: Positive: PERRL Neck: Positive: trachea midline Cardiac: Positive: Other (AV paced) Lungs: Positive: Decreased Breath Sounds Neuro: Positive: Grossly Intact Extremities: Present: +2 Edema - Labs and Meds CBC 02/20/17 Range/Units 06:01 WBC 10.6 (4.5-11.0) K/mm3 RBC 4.91 (3.65-5.03) M/mm3 Hgb 14.4 (11.8-15.2) gm/dl Hct 44.2 (35.5-45.6) % Plt Count 91 L (140-440) K/mm3 Comprehensive Metabolic Panel 02/19/17 02/19/17 02/20/17 Range/Units 16:31 19:34 06:01 Sodium 136 L D 135 L 136 L (137-145) mmol/L Potassium 5.0 5.2 H 5.7 H (3.6-5.0) mmol/L Chloride 92.2 L 91.6 L 95.6 L (98-107) mmol/L Carbon Dioxide 30 30 29 (22-30) mmol/L BUN 34 H 34 H 33 H (9-20) mg/dL Creatinine 1.1 1.3 1.1 (0.8-1.5) mg/dL Glucose 87 104 H 131 H (75-100) mg/dL Calcium 9.0 9.1 8.5 (8.4-10.2) mg/dL
--- NOTE | 2017-02-20 16:16 | Progress Note ---
Assessment and Plan Assessment and plan: Patient is a 45-year-old man with a history of hypertension, type 2 diabetes mellitus, gout, obstructive sleep apnea, COPD, systolic heart failure with AICD and morbid obesity bmi 62.1 who presents with shortness of breath. Chest x-ray shows cardiomegaly and pulmonary venous congestion. -Acute on chronic systolic heart failure: Continue diuresis, cardiology is following, will return to torsemide on discharge. With weekly metolazone -Acute exacerbation COPD: Continue nebulizer, stop Levaquin (finished course) and transitioned to by mouth steroids -Acute on chronic respiratory failure secondary to COPD-up as noted above -Uncontrolled type 2 diabetes diabetes mellitus due to steroids -Morbid obesity BMI 63.3->now 62.1-excessive discussion with the patient will need to lose weight patient verbalizes understanding -New issue: hyperkalemia and hypernatremia: stop Aldactone (notified Cardiology) , initial Kayexalate is not as effective as thought. We'll give a repeat kayexalate repeat potassium levels. -Anticipate discharge tomorrow if electrolytes stable and cleared by cardiology. -DVT prophylaxis: sc lovenox, he doesn't wear the scd. -Plan of care discussed with the patient and also with corduroy cutting supervisor all agreeable with treatment plan History Interval history: Patient seen and examined today in no acute distress. Reports some improvement. Still with mild shortness of breath but improving compared to yesterday. Denies any chest pain, nausea, vomiting, diarrhea. No other Adverse events reported by nursing staff. Hospitalist Physical - Physical exam Narrative exam: VITAL SIGNS: Reviewed. GENERAL: The patient appeared well nourished and normally developed, morbidly obese. Vital signs as documented. HEAD: No signs of head trauma. EYES: Pupils are equal. Extraocular motions intact. EARS: Hearing grossly intact. MOUTH: Oropharynx is normal. NECK: No adenopathy, no JVD. CHEST: Chest with clear breath sounds bilaterally. No wheezes, rales, or rhonchi. CARDIAC: Regular rate and rhythm. S1 and S2, without murmurs, gallops, or rubs. VASCULAR: Trace Edema. Peripheral pulses normal and equal in all extremities. ABDOMEN: Soft, without detectable tenderness. No sign of distention. No rebound or guarding, and no masses palpated. Bowel Sounds normal. MUSCULOSKELETAL: Good range of motion of all major joints. Extremities without clubbing, cyanosis. Trace pedal edema present NEUROLOGIC EXAM: Alert and oriented x 3. No focal sensory or strength deficits. Speech normal. Follows commands. PSYCHIATRIC: Mood normal. SKIN: No rash or lesions. - Constitutional Vitals: Temp Pulse Resp BP Pulse Ox 97.4 F L 81 20 135/90 99 02/20/17 08:00 02/20/17 10:54 02/20/17 08:50 02/20/17 10:54 02/20/17 08:50 General appearance: Present: no acute distress Results - Labs CBC & Chem 7: 02/20/17 06:01 02/20/17 14:06 Labs: Laboratory Last Values WBC 10.6 K/mm3 (4.5-11.0) 02/20/17 06:01 RBC 4.91 M/mm3 (3.65-5.03) 02/20/17 06:01 Hgb 14.4 gm/dl (11.8-15.2) 02/20/17 06:01 Hct 44.2 % (35.5-45.6) 02/20/17 06:01 MCV 90 fl (84-94) 02/20/17 06:01 MCH 29 pg (28-32) 02/20/17 06:01 MCHC 33 % (32-34) 02/20/17 06:01 RDW 18.8 % (13.2-15.2) H 02/20/17 06:01 Plt Count 91 K/mm3 (140-440) L 02/20/17 06:01 Lymph % (Auto) 4.2 % (13.4-35.0) L 02/14/17 05:22 Mccone % (Auto) 6.0 % (0.0-7.3) 02/14/17 05:22 Eos % (Auto) 0.0 % (0.0-4.3) 02/14/17 05:22 Baso % (Auto) 0.3 % (0.0-1.8) 02/14/17 05:22 Lymph # 0.5 K/mm3 (1.2-5.4) L 02/14/17 05:22 Mccone # 0.8 K/mm3 (0.0-0.8) 02/14/17 05:22 Eos # 0.0 K/mm3 (0.0-0.4) 02/14/17 05:22 Baso # 0.0 K/mm3 (0.0-0.1) 02/14/17 05:22 Add Manual Diff Complete 02/16/17 04:44 Total Counted 100 02/16/17 04:44 Seg Neutrophils % Coning Machine Operator 02/16/17 04:44 Seg Neuts % (Manual) 97.0 % (40.0-70.0) H 02/16/17 04:44 Band Neutrophils % 0 % 02/16/17 04:44 Lymphocytes % (Manual) 1.0 % (13.4-35.0) L 02/16/17 04:44 Reactive Lymphs % (Man) 0 % 02/16/17 04:44 Monocytes % (Manual) 2.0 % (0.0-7.3) 02/16/17 04:44 Eosinophils % (Manual) 0 % (0.0-4.3) 02/16/17 04:44 Basophils % (Manual) 0 % (0.0-1.8) 02/16/17 04:44 Metamyelocytes % 0 % 02/16/17 04:44 Myelocytes % 0 % 02/16/17 04:44 Promyelocytes % 0 % 02/16/17 04:44 Blast Cells % 0 % 02/16/17 04:44 Nucleated RBC % Not Reportable 02/16/17 04:44 Seg Neutrophils # 11.5 K/mm3 (1.8-7.7) H 02/14/17 05:22 Seg Neutrophils # Man 10.1 K/mm3 (1.8-7.7) H 02/16/17 04:44 Band Neutrophils # 0.0 K/mm3 02/16/17 04:44 Lymphocytes # (Manual) 0.1 K/mm3 (1.2-5.4) L 02/16/17 04:44 Abs React Lymphs (Man) 0.0 K/mm3 02/16/17 04:44 Monocytes # (Manual) 0.2 K/mm3 (0.0-0.8) 02/16/17 04:44 Eosinophils # (Manual) 0.0 K/mm3 (0.0-0.4) 02/16/17 04:44 Basophils # (Manual) 0.0 K/mm3 (0.0-0.1) 02/16/17 04:44 Metamyelocytes # 0.0 K/mm3 02/16/17 04:44 Myelocytes # 0.0 K/mm3 02/16/17 04:44 Promyelocytes # 0.0 K/mm3 02/16/17 04:44 Blast Cells # 0.0 K/mm3 02/16/17 04:44 WBC Morphology Not Reportable 02/16/17 04:44 Hypersegmented Neuts Not Reportable 02/16/17 04:44 Hyposegmented Neuts Not Reportable 02/16/17 04:44 Hypogranular Neuts Not Reportable 02/16/17 04:44 Smudge Cells Not Reportable 02/16/17 04:44 Toxic Granulation Not Reportable 02/16/17 04:44 Toxic Vacuolation Not Reportable 02/16/17 04:44 Dohle Bodies Not Reportable 02/16/17 04:44 Pelger-Huet Anomaly Not Reportable 02/16/17 04:44 Kanika Rods Not Reportable 02/16/17 04:44 Platelet Estimate Appears decreased 02/16/17 04:44 Clumped Platelets Not Reportable 02/16/17 04:44 Plt Clumps, EDTA Not Reportable 02/16/17 04:44 Large Platelets Not Reportable 02/16/17 04:44 Giant Platelets Not Reportable 02/16/17 04:44 Platelet Satelliting Not Reportable 02/16/17 04:44 Plt Morphology Comment Not Reportable 02/16/17 04:44 RBC Morphology Normal 02/16/17 04:44 Dimorphic RBCs Not Reportable 02/16/17 04:44 Polychromasia Not Reportable 02/16/17 04:44 Hypochromasia Not Reportable 02/16/17 04:44 Poikilocytosis Not Reportable 02/16/17 04:44 Anisocytosis Not Reportable 02/16/17 04:44 Microcytosis Not Reportable 02/16/17 04:44 Macrocytosis Not Reportable 02/16/17 04:44 Spherocytes Not Reportable 02/16/17 04:44 Pappenheimer Bodies Not Reportable 02/16/17 04:44 Sickle Cells Not Reportable 02/16/17 04:44 Target Cells Not Reportable 02/16/17 04:44 Tear Drop Cells Not Reportable 02/16/17 04:44 Ovalocytes Not Reportable 02/16/17 04:44 Helmet Cells Not Reportable 02/16/17 04:44 Jefferson-Blodgett Bodies Not Reportable 02/16/17 04:44 Coeymans Rings Not Reportable 02/16/17 04:44 [place] Cells Not Reportable 02/16/17 04:44 Bite Cells Not Reportable 02/16/17 04:44 Crenated Cell Not Reportable 02/16/17 04:44 Elliptocytes Not Reportable 02/16/17 04:44 Acanthocytes (Spur) Not Reportable 02/16/17 04:44 Rouleaux Not Reportable 02/16/17 04:44 Hemoglobin C Crystals Not Reportable 02/16/17 04:44 Schistocytes Not Reportable 02/16/17 04:44 Malaria parasites Not Reportable 02/16/17 04:44 Kenroy Bodies Not Reportable 02/16/17 04:44 Hem Pathologist Commnt No 02/16/17 04:44 D-Dimer 408.38 ng/mlDDU (0-234) H 02/16/17 13:57 POC ABG pH 7.469 (7.35-7.45) H 02/19/17 10:36 POC ABG pCO2 36.7 (35-45) 02/19/17 10:36 POC ABG pO2 101 (80-105) 02/19/17 10:36 POC ABG HCO3 26.6 02/19/17 10:36 POC ABG Total CO2 28 02/19/17 10:36 POC ABG O2 Sat 98 02/19/17 10:36 POC ABG Base Excess 3 02/19/17 10:36 FiO2 21 % 02/19/17 10:36 Sodium 136 mmol/L (137-145) L 02/20/17 06:01 Potassium 5.6 mmol/L (3.6-5.0) H 02/20/17 14:06 Chloride 95.6 mmol/L (98-107) L 02/20/17 06:01 Carbon Dioxide 29 mmol/L (22-30) 02/20/17 06:01 Anion Gap 17 mmol/L 02/20/17 06:01 BUN 33 mg/dL (9-20) H 02/20/17 06:01 Creatinine 1.1 mg/dL (0.8-1.5) 02/20/17 06:01 Estimated GFR > 60 ml/min 02/20/17 06:01 BUN/Creatinine Ratio 30.00 % 02/20/17 06:01 Glucose 131 mg/dL (75-100) H 02/20/17 06:01 POC Glucose 115 (70-105) H 02/20/17 06:06 Calcium 8.5 mg/dL (8.4-10.2) 02/20/17 06:01 Troponin T < 0.010 ng/mL (0.00-0.029) 02/11/17 15:01 NT-Pro-B Natriuret Pep 7033 pg/mL (0-450) H 02/11/17 15:01
--- NOTE | 2017-02-20 19:32 | Progress Note ---
Assessment and Plan Patient alert, awake and Resting on room air.O2 satuaration 96%. No acute respiratory distress. Chest xray obtained reported mild cardiomegaly, No CHF. ABGs reported PH 7.46, PCO2 37, PO2 101, HCO3 27, O2 saturation 98% on room air. Patients K+ 5.7 Patient is on Lasix. Repeating K+ in AM. - Patient Problems (1) Acute exacerbation of chronic obstructive pulmonary disease (COPD) Current Visit: Yes Status: Acute Plan to address problem: 1 CPAP 20 CM H20 PRESSURE DURING NIGHT TIME. 2. ALBUTEROL/ATROVENT AEROSOL TREATMENTS Q 6 HOURS. 3. TAPER I/V SOLUMEDRAL. 4. CONTINUE LEVAQUINE 5. RECOMMEND S/C LOVENOX. (2) Acute CHF (congestive heart failure) Current Visit: Yes Status: Acute Plan to address problem: Management as per cardiology. Chest xray showing improvement in CHF. (3) Sleep apnea, obstructive Current Visit: Yes Status: Acute Plan to address problem: Continue CPAP 20 cm H2O pressure. (4) Morbid obesity due to excess calories Current Visit: No Status: Chronic Plan to address problem: Recommend to loose weight. Consult automotive internet sales manager for weight reduction diet. (5) Dilated cardiomyopathy Current Visit: No Status: Chronic Plan to address problem: Management as per cardiology. (6) Cardiac defibrillator in place Current Visit: No Status: Chronic Plan to address problem: Management as per cardiology. (7) HTN (hypertension) Current Visit: No Status: Chronic Plan to address problem: Management as per primary care. (8) Diabetes Current Visit: No Status: Acute Plan to address problem: Management as per primary care. Subjective Date of service: 02/20/17 Principal diagnosis: Acute COPD exacerbation Interval history: Patient alert, awake and Resting on room air.O2 satuaration 98%. No acute respiratory distress. Patients chest xray obtained showed mild cardiomegaly. No CHF. ABGs reported PH 7.46, PCO2 37, PO2 101, HCO3 27, O2 saturation 98% on room air. Patients K+ 5.7 Patient is on Lasix. Repeating K+ in AM. Objective Vital Signs - 12hr 02/20/17 02/20/17 02/20/17 08:00 08:40 08:50 Temperature 97.4 F L Pulse Rate Pulse Rate [ 72 Anterior Bilateral Throughout] Pulse Rate [ 74 74 Left Brachial] Respiratory 20 20 Rate Respiratory 18 Rate [Anterior Bilateral Throughout] Blood Pressure Blood Pressure 128/84 [Left Arm] O2 Sat by Pulse 99 99 Oximetry 02/20/17 02/20/17 02/20/17 10:53 10:54 16:00 Temperature 98.4 F Pulse Rate 81 81 Pulse Rate [ Anterior Bilateral Throughout] Pulse Rate [ 73 Left Brachial] Respiratory 20 Rate Respiratory Rate [Anterior Bilateral Throughout] Blood Pressure 135/90 135/90 Blood Pressure 129/79 [Left Arm] O2 Sat by Pulse Oximetry 02/20/17 17:10 Temperature Pulse Rate Pulse Rate [ Anterior Bilateral Throughout] Pulse Rate [ Left Brachial] Respiratory 20 Rate Respiratory Rate [Anterior Bilateral Throughout] Blood Pressure Blood Pressure [Left Arm] O2 Sat by Pulse Oximetry Constitutional: no acute distress, alert Eyes: non-icteric ENT: oropharynx moist Neck: supple, no lymphadenopathy Effort: mildly labored Ascultation: Bilateral: diminished breath sounds Cardiovascular: regular rate and rhythm Gastrointestinal: normoactive bowel sounds, soft, non-tender Integumentary: normal Extremities: no cyanosis, pink and warm, pulses normal, edema Neurologic: normal mental status, non-focal exam, pupils equal and round, CN II- XII normal Psychiatric: mood appropriate, affect normal CBC and BMP: 02/20/17 06:01 02/20/17 14:06 ABG, PT/INR, D-dimer: ABG POC ABG pH 7.469 (7.35-7.45) H 02/19/17 10:36 POC ABG pCO2 36.7 (35-45) 02/19/17 10:36 POC ABG pO2 101 (80-105) 02/19/17 10:36 POC ABG HCO3 26.6 02/19/17 10:36 POC ABG Total CO2 28 02/19/17 10:36 POC ABG O2 Sat 98 02/19/17 10:36 PT/INR, D-dimer D-Dimer 408.38 ng/mlDDU (0-234) H 02/16/17 13:57 Abnormal lab findings: Abnormal Labs 02/11/17 02/12/17 02/12/17 21:06 05:56 11:32 WBC RDW Plt Count Lymph % (Auto) Lymph # Seg Neutrophils % Seg Neuts % (Manual) Lymphocytes % (Manual) Seg Neutrophils # Seg Neutrophils # Man Lymphocytes # (Manual) D-Dimer POC ABG pH Sodium Potassium Chloride BUN Glucose POC Glucose 173 H 163 H 253 H 02/12/17 02/12/17 02/13/17 16:35 21:49 06:01 WBC 14.1 H RDW 18.4 H Plt Count Lymph % (Auto) Lymph # Seg Neutrophils % Seg Neuts % (Manual) 94.0 H Lymphocytes % (Manual) 2.0 L Seg Neutrophils # Seg Neutrophils # Man 13.3 H Lymphocytes # (Manual) 0.3 L D-Dimer POC ABG pH Sodium Potassium Chloride BUN Glucose POC Glucose 166 H 206 H 02/13/17 02/13/17 02/13/17 06:01 06:18 11:38 WBC RDW Plt Count Lymph % (Auto) Lymph # Seg Neutrophils % Seg Neuts % (Manual) Lymphocytes % (Manual) Seg Neutrophils # Seg Neutrophils # Man Lymphocytes # (Manual) D-Dimer POC ABG pH Sodium 136 L Potassium Chloride 97.7 L BUN 30 H Glucose 206 H POC Glucose 203 H 203 H 02/13/17 02/13/17 02/14/17 16:20 21:18 05:22 WBC 12.8 H RDW 18.1 H Plt Count 138 L Lymph % (Auto) 4.2 L Lymph # 0.5 L Seg Neutrophils % 89.5 H Seg Neuts % (Manual) Lymphocytes % (Manual) Seg Neutrophils # 11.5 H Seg Neutrophils # Man Lymphocytes # (Manual) D-Dimer POC ABG pH Sodium Potassium Chloride BUN Glucose POC Glucose 193 H 205 H 02/14/17 02/14/17 02/14/17 05:22 06:31 11:04 WBC RDW Plt Count Lymph % (Auto) Lymph # Seg Neutrophils % Seg Neuts % (Manual) Lymphocytes % (Manual) Seg Neutrophils # Seg Neutrophils # Man Lymphocytes # (Manual) D-Dimer POC ABG pH Sodium 136 L Potassium Chloride BUN 33 H Glucose 218 H POC Glucose 206 H 243 H 02/14/17 02/15/17 02/15/17 15:54 00:21 05:10 WBC RDW Plt Count Lymph % (Auto) Lymph # Seg Neutrophils % Seg Neuts % (Manual) Lymphocytes % (Manual) Seg Neutrophils # Seg Neutrophils # Man Lymphocytes # (Manual) D-Dimer POC ABG pH Sodium Potassium Chloride BUN Glucose POC Glucose 266 H 144 H 162 H 02/15/17 02/15/17 02/15/17 05:36 05:36 10:59 WBC 13.7 H RDW 18.7 H Plt Count 128 L Lymph % (Auto) Lymph # Seg Neutrophils % Seg Neuts % (Manual) 98.0 H Lymphocytes % (Manual) 1.0 L Seg Neutrophils # Seg Neutrophils # Man 13.4 H Lymphocytes # (Manual) 0.1 L D-Dimer POC ABG pH Sodium Potassium Chloride BUN 38 H Glucose 172 H POC Glucose 269 H 02/15/17 02/15/17 02/15/17 16:57 21:19 23:45 WBC RDW Plt Count Lymph % (Auto) Lymph # Seg Neutrophils % Seg Neuts % (Manual) Lymphocytes % (Manual) Seg Neutrophils # Seg Neutrophils # Man Lymphocytes # (Manual) D-Dimer POC ABG pH Sodium Potassium Chloride BUN Glucose POC Glucose 243 H 260 H 289 H 02/16/17 02/16/17 02/16/17 04:44 04:44 06:20 WBC RDW 18.6 H Plt Count 114 L Lymph % (Auto) Lymph # Seg Neutrophils % Seg Neuts % (Manual) 97.0 H Lymphocytes % (Manual) 1.0 L Seg Neutrophils # Seg Neutrophils # Man 10.1 H Lymphocytes # (Manual) 0.1 L D-Dimer POC ABG pH Sodium 135 L Potassium Chloride 96.9 L BUN 35 H Glucose 204 H POC Glucose 163 H 02/16/17 02/16/17 02/16/17 11:28 13:57 16:42 WBC RDW Plt Count Lymph % (Auto) Lymph # Seg Neutrophils % Seg Neuts % (Manual) Lymphocytes % (Manual) Seg Neutrophils # Seg Neutrophils # Man Lymphocytes # (Manual) D-Dimer 408.38 H POC ABG pH Sodium Potassium Chloride BUN Glucose POC Glucose 259 H 267 H 02/16/17 02/17/17 02/17/17 21:21 06:08 11:12 WBC RDW Plt Count Lymph % (Auto) Lymph # Seg Neutrophils % Seg Neuts % (Manual) Lymphocytes % (Manual) Seg Neutrophils # Seg Neutrophils # Man Lymphocytes # (Manual) D-Dimer POC ABG pH Sodium Potassium Chloride BUN Glucose POC Glucose 227 H 169 H 162 H 02/17/17 02/17/17 02/18/17 16:04 21:19 11:10 WBC RDW Plt Count Lymph % (Auto) Lymph # Seg Neutrophils % Seg Neuts % (Manual) Lymphocytes % (Manual) Seg Neutrophils # Seg Neutrophils # Man Lymphocytes # (Manual) D-Dimer POC ABG pH Sodium 134 L Potassium 5.7 H Chloride 94.0 L BUN 29 H Glucose 143 H POC Glucose 175 H 271 H 02/18/17 02/18/17 02/18/17 11:14 16:14 21:43 WBC RDW Plt Count Lymph % (Auto) Lymph # Seg Neutrophils % Seg Neuts % (Manual) Lymphocytes % (Manual) Seg Neutrophils # Seg Neutrophils # Man Lymphocytes # (Manual) D-Dimer POC ABG pH Sodium Potassium Chloride BUN Glucose POC Glucose 132 H 112 H 292 H 02/19/17 02/19/17 02/19/17 06:59 09:52 10:36 WBC RDW Plt Count Lymph % (Auto) Lymph # Seg Neutrophils % Seg Neuts % (Manual) Lymphocytes % (Manual) Seg Neutrophils # Seg Neutrophils # Man Lymphocytes # (Manual) D-Dimer POC ABG pH 7.469 H Sodium 158 H D Potassium 5.8 H Chloride 114.6 H BUN 26 H Glucose 185 H POC Glucose 128 H 02/19/17 02/19/17 02/19/17 12:05 16:31 19:34 WBC RDW Plt Count Lymph % (Auto) Lymph # Seg Neutrophils % Seg Neuts % (Manual) Lymphocytes % (Manual) Seg Neutrophils # Seg Neutrophils # Man Lymphocytes # (Manual) D-Dimer POC ABG pH Sodium 136 L D 135 L Potassium 5.2 H Chloride 92.2 L 91.6 L BUN 34 H 34 H Glucose 104 H POC Glucose 149 H 02/20/17 02/20/17 02/20/17 06:01 06:01 06:06 WBC RDW 18.8 H Plt Count 91 L Lymph % (Auto) Lymph # Seg Neutrophils % Seg Neuts % (Manual) Lymphocytes % (Manual) Seg Neutrophils # Seg Neutrophils # Man Lymphocytes # (Manual) D-Dimer POC ABG pH Sodium 136 L Potassium 5.7 H Chloride 95.6 L BUN 33 H Glucose 131 H POC Glucose 115 H 02/20/17 02/20/17 02/20/17 11:27 14:06 16:36 WBC RDW Plt Count Lymph % (Auto) Lymph # Seg Neutrophils % Seg Neuts % (Manual) Lymphocytes % (Manual) Seg Neutrophils # Seg Neutrophils # Man Lymphocytes # (Manual) D-Dimer POC ABG pH Sodium Potassium 5.6 H Chloride BUN Glucose POC Glucose 109 H 127 H
[2017-02-20] MEDS: LEVEMIR SUB-Q SCH (22:23)
[2017-02-21] MEDS: DUONEB 0.5 MG-3 MG/3 ML SOLN IH SCH ×3 (01:59→13:37)
[2017-02-21 08:02] LABS: Calcium 8.6 mg/dL (8.4-10.2); Chloride 94.8 mmol/L (98-107); Potassium 4.7 mmol/L (3.6-5.0)
[2017-02-21] MEDS: NOVOLOG SUB-Q SCH ×2 (09:32→12:22)
[2017-02-21] MEDS: GLUCOTROL PO SCH (09:33)
[2017-02-21] MEDS ORDERED: LASIX PO SCH (10:00)
[2017-02-21] MEDS ORDERED: DELTASONE PO SCH (10:00)
--- NOTE | 2017-02-21 10:31 | Progress Note ---
Assessment and Plan Shortness of breath - multifactorial COPD exacerbation Acute systolic heart failure Presence of automatic (implantable) cardiac defibrillator ([employer]) AV paced on ECG Hx of Dilated non ischemic cardiomyopathy at least moderate MR with an EF 10-15% on echo 10/2016 normal coronaries by C 09/2015 [place] Obese Hx of VT/VF -on amiodarone Hypertension Thrombocytopenia Deconditioning Hyperkalemia potassium and aldactone discontinued Recommendations: Continue diuretics and afterload reduction for systolic heart failure. Upon discharge please resume aldactone and ensure the patient goes home on torsemide 100mg once a day and metolazone 5mg twice a week. F/U in our office with Dr Salazar, as scheduled, March 02. Subjective Date of service: 02/21/17 Principal diagnosis: Acute COPD exacerbation Interval history: Patient reports he is feeling better. Bilat lower extremity edema slowly improving. Objective Vital Signs Temp Pulse Pulse Pulse Resp Resp BP 02/21/17 08:31 72 18 02/21/17 08:00 97.7 F 72 24 02/21/17 03:48 97.4 F L 61 18 02/21/17 02:21 76 18 02/21/17 01:59 74 18 02/21/17 00:30 98.1 F 69 18 02/20/17 22:25 71 138/82 02/20/17 22:24 71 138/82 02/20/17 22:00 71 20 02/20/17 20:49 98.4 F 71 18 02/20/17 19:53 77 18 02/20/17 19:38 75 18 02/20/17 17:10 20 02/20/17 16:00 98.4 F 73 20 02/20/17 10:54 81 135/90 02/20/17 10:53 81 135/90 BP Pulse Ox 02/21/17 08:31 02/21/17 08:00 132/69 99 02/21/17 03:48 127/70 98 02/21/17 02:21 02/21/17 01:59 02/21/17 00:30 134/67 96 02/20/17 22:25 02/20/17 22:24 02/20/17 22:00 02/20/17 20:49 138/82 96 02/20/17 19:53 02/20/17 19:38 02/20/17 17:10 02/20/17 16:00 129/79 02/20/17 10:54 02/20/17 10:53 - Physical Examination General: No Apparent Distress, Other (Obese) HEENT: Positive: PERRL Neck: Positive: trachea midline Cardiac: Positive: Other (AV paced) Neuro: Positive: Grossly Intact Extremities: Present: +2 Edema - Labs and Meds Comprehensive Metabolic Panel 02/20/17 02/21/17 Range/Units 14:06 06:40 Sodium 135 L (137-145) mmol/L Potassium 5.6 H 4.7 (3.6-5.0) mmol/L Chloride 94.8 L (98-107) mmol/L Carbon Dioxide 30 (22-30) mmol/L BUN 42 H (9-20) mg/dL Creatinine 1.4 (0.8-1.5) mg/dL Glucose 72 L (75-100) mg/dL Calcium 8.6 (8.4-10.2) mg/dL
[2017-02-21] MEDS: COREG PO SCH (10:42)
[2017-02-21] MEDS: IMDUR PO SCH (10:44)
[2017-02-21] MEDS: CORDARONE PO SCH (10:44)
[2017-02-21] MEDS: FEOSOL PO SCH (10:44)
[2017-02-21] MEDS: ASPIRIN PO SCH (10:44)
[2017-02-21] MEDS: ZESTRIL PO SCH (10:44)
[2017-02-21] MEDS: ZYLOPRIM PO SCH (10:44)
[2017-02-21] MEDS: LOVENOX SUB-Q SCH (10:45)
[2017-02-21] MEDS: MAG-OX PO SCH (10:45)
[2017-02-21 15:24] VITALS: BP 124/74
== END 2017-02-21 15:00 | disposition home or self-care (01) | DRG 291 ==
LOC: ED 12:58 → 3A 18:14
PROVIDERS: ADMIT Internal Medicine; ATTEND Internal Medicine
PROC: 4A033R1 Measurement of Arterial Saturation, Peripheral, Percutaneous Approach (ICD-10-PCS; principal; 2017-02-19)
DX: I11.0 Hypertensive heart disease with heart failure (principal); J96.01 Acute respiratory failure with hypoxia; I50.23 Acute on chronic systolic (congestive) heart failure; J44.1 Chronic obstructive pulmonary disease with (acute) exacerbation; E66.01 Morbid (severe) obesity due to excess calories; Z68.43 Body mass index [BMI] 50.0-59.9, adult; Z71.3 Dietary counseling and surveillance; Z87.891 Personal history of nicotine dependence; Z79.82 Long term (current) use of aspirin; Z79.4 Long term (current) use of insulin; E87.5 Hyperkalemia; Z95.810 Presence of automatic (implantable) cardiac defibrillator; E11.65 Type 2 diabetes mellitus with hyperglycemia; E87.0 Hyperosmolality and hypernatremia; D69.6 Thrombocytopenia, unspecified; G47.33 Obstructive sleep apnea (adult) (pediatric); D64.9 Anemia, unspecified; M10.9 Gout, unspecified; Z88.8 Allergy status to other drugs, medicaments and biological substances; Z91.018 Allergy to other foods
CPT/HCPCS: 36415; 36600; 71010; 71020; 80048; 82803; 82962; 83880; 84132; 84484; 85007; 85025; 85027; 85379; 93005; 93010; 94640; 96374; J1650; J1815; J1818; J1940; J1956; J2920; J2930; J7512

== ENCOUNTER 2017-03-16 16:57 | Inpatient (IN) | payer MEDICAID ==
[2017-03-16 18:42] LABS: Hematocrit 39.3 % (35.5-45.6); Hemoglobin 13.3 gm/dl (11.8-15.2); Mean Corpuscular HGB Conc 34 % (32-34); Mean Corpuscular Hemoglobin 30 pg (28-32); Mean Corpuscular Volume 88 fl (84-94); Platelet Count 160 K/mm3 (140-440); Red Blood Count 4.48 M/mm3 (3.65-5.03); Red Cell Distribution Width 18.7 % (13.2-15.2); White Blood Count 13.2 K/mm3 (4.5-11.0)
[2017-03-16 18:53] LABS: INR 1.19 (0.87-1.13)
[2017-03-16 18:57] LABS: BUN/Creatinine Ratio 9.33; Calcium 8.7 mg/dL (8.4-10.2); Chloride 97.1 mmol/L (98-107); Potassium 4.4 mmol/L (3.6-5.0)
[2017-03-16] MEDS ORDERED: BENADRYL IV ONE (19:31)
[2017-03-16] MEDS ORDERED: REGLAN IV ONE (19:31)
[2017-03-16] MEDS ORDERED: PROVENTIL IH ONE (19:31)
[2017-03-16] MEDS ORDERED: ATROVENT IH ONE (19:31)
[2017-03-16] MEDS ORDERED: TORADOL IV ONE (19:31)
--- NOTE | 2017-03-16 19:33 | Emergency Department Report ---
ED General Adult HPI - General Chief complaint: Chest Pain Stated complaint: CHEST PAIN Time Seen by Provider: 03/16/17 19:18 Source: patient, EMS (ems notes not available at time of chart dictation), RN notes reviewed, old records reviewed Mode of arrival: Stretcher Limitations: Physical Limitation - History of Present Illness Initial comments: This is a 46-year-old male. They have evaluated him in the past. Patient has extensive past medical history. Past medical history includes morbid obesity, nonischemic, myopathy, [employer] ICD, ejection fraction of 10-15%, history of ventricular tachycardia, history of amiodarone suppression. Also has a history of hypertension, obesity, obstructive sleep apnea. Patient recently seen by cardiology, for renal insufficiency hypotension, patient had a cardiac catheterization September 2015 which was negative for cardiac status coronary artery disease. As per cardiology documentation, no further recommendations for ACS risk stratification. Delivery Motorcycle Driver: Dr. Salazar Today, the patient is brought to the hospital by EMS. As per EMS documentation , patient has been complaining of shortness of breath and chest tightness. To me, the patient complains of headache, chest tightness, shortness of breath and back pain. The headache is throbbing, achy, dull in nature. It has been present for a few days. The headache did not reach maximal intensity within an hour. It is not the worst headache of his life. The chest tightness is central, the patient indicates it does not radiate to the back, arms or neck. The shortness of breath is constant. The patient denies unintentional weight gain. The back pain is lumbar and paralumbar. It does not radiate anywhere. It increases with palpation when he lays on his side. There is no extremity weakness. There is no extremity numbness. There is no bladder or bowel retention or incontinence. There is no saddle anesthesia. -: Gradual Location: head, chest, back Severity scale (0 -10): 9 Quality: aching Consistency: intermittent Improves with: other (as per history of present illness) Worsens with: other (as per history of present illness) Associated Symptoms: cough, headaches, shortness of breath - Related Data Home Medications Medication Instructions Recorded Confirmed Last Taken Ferrous Sulfate [Feosol 325 MG tab] 325 mg PO BID 05/19/15 03/16/17 03/06/17 Magnesium Oxide 400 mg PO DAILY 08/31/16 03/16/17 03/06/17 Fluticasone/Salmeterol [Advair 1 each IH PRN PRN 03/06/17 03/16/17 Unknown Diskus 500-50 mcg] Ipratropium/Albuter (Nf) 2 puff IH BID 03/06/17 03/16/17 Unknown [Combivent Inhaler] Amiodarone [Cordarone 200 MG TAB] 200 mg PO QDAY 03/16/17 03/16/17 Unknown Spironolactone [Aldactone] 25 mg PO QDAY 03/16/17 03/16/17 Unknown Torsemide [Demadex] 100 mg PO QDAY 03/16/17 03/16/17 Unknown glipiZIDE [Glucotrol] 10 mg PO QDAY 03/16/17 03/16/17 Unknown Previous Rx's Medication Instructions Recorded Last Taken Type Aspirin [Aspirin TAB] 325 mg PO QDAY #30 tablet 12/14/16 03/06/17 Rx Carvedilol [Coreg] 25 mg PO BID #60 tablet 12/14/16 03/06/17 Rx ISOSORBIDE MONOnitrate [Imdur ER] 30 mg PO DAILY #30 tablet 12/14/16 02/11/17 Rx HYDROcodone/APAP 5-325 [[place] 1 each PO Q4H PRN #30 tablet 02/06/17 03/05/17 Rx 5-325 mg TAB] Insulin Glargine,Hum.rec.anlog 20 units SQ QHS #5 pen 02/06/17 02/11/17 Rx [Lantus Solostar] predniSONE [Deltasone] 40 mg PO QDAY #5 tablet 03/09/17 Unknown Rx Allergies Allergy/AdvReac Type Severity Reaction Status Date / Time cephalexin monohydrate Allergy Hives Verified 03/09/15 22:20 [From Keflex] lidocaine Allergy Hives Verified 03/09/15 22:20 mushrooms Allergy Swelling Uncoded 06/26/15 12:23 ED Review of Systems ROS: Stated complaint: CHEST PAIN Other details as noted in HPI Constitutional: malaise ENT: denies: epistaxis Respiratory: shortness of breath Cardiovascular: chest pain Gastrointestinal: denies: abdominal pain, hematemesis, hematochezia Genitourinary: as per HPI Musculoskeletal: back pain Skin: denies: lesions Neurological: weakness ED Past Medical Hx - Past Medical History Hx Hypertension: Yes Hx Heart Attack/AMI: No Hx Congestive Heart Failure: Yes Hx Diabetes: Yes Hx Deep Vein Thrombosis: Yes Hx Pulmonary Embolism: Yes Hx Liver Disease: No Hx Renal Disease: Yes (insufficiency) Hx Sickle Cell Disease: No Hx Arthritis: Yes (Knees) Hx Asthma: Yes Hx COPD: Yes Hx Tuberculosis: No Hx HIV: No Additional medical history: copd; sleep apnea - Surgical History Hx Coronary Stent: No Hx Pacemaker: Yes Hx Internal Defibrillator: Yes Hx Cholecystectomy: Yes Additional Surgical History: defibrillator - Social History Smoking Status: Never Smoker - Medications Home Medications: Home Medications Medication Instructions Recorded Confirmed Last Taken Type Ferrous Sulfate [Feosol 325 MG tab] 325 mg PO BID 05/19/15 03/16/17 03/06/17 History Magnesium Oxide 400 mg PO DAILY 08/31/16 03/16/17 03/06/17 History Aspirin [Aspirin TAB] 325 mg PO QDAY #30 tablet 12/14/16 03/16/17 03/06/17 Rx Carvedilol [Coreg] 25 mg PO BID #60 tablet 12/14/16 03/16/17 03/06/17 Rx ISOSORBIDE MONOnitrate [Imdur ER] 30 mg PO DAILY #30 tablet 12/14/16 03/16/17 Rx HYDROcodone/APAP 5-325 [[place] 1 each PO Q4H PRN #30 tablet 02/06/17 03/16/17 Rx 5-325 mg TAB] Insulin Glargine,Hum.rec.anlog 20 units SQ QHS #5 pen 02/06/17 03/16/17 Rx [Lantus Solostar] Fluticasone/Salmeterol [Advair 1 each IH PRN PRN 03/06/17 03/16/17 Unknown History Diskus 500-50 mcg] Ipratropium/Albuter (Nf) 2 puff IH BID 03/06/17 03/16/17 Unknown History [Combivent Inhaler] predniSONE [Deltasone] 40 mg PO QDAY #5 tablet 03/09/17 03/16/17 Unknown Rx Amiodarone [Cordarone 200 MG TAB] 200 mg PO QDAY 03/16/17 03/16/17 Unknown History Spironolactone [Aldactone] 25 mg PO QDAY 03/16/17 03/16/17 Unknown History Torsemide [Demadex] 100 mg PO QDAY 03/16/17 03/16/17 Unknown History glipiZIDE [Glucotrol] 10 mg PO QDAY 03/16/17 03/16/17 Unknown History ED Physical Exam - General Limitations: No Limitations General appearance: obese - Head Head exam: Present: atraumatic, normocephalic - Eye Eye exam: Present: normal appearance, EOMI. Absent: nystagmus - ENT ENT exam: Present: normal exam, normal orophraynx, mucous membranes moist, normal external ear exam - Neck Neck exam: Present: normal inspection, full ROM. Absent: tenderness, meningismus - Respiratory Respiratory exam: Present: decreased breath sounds. Absent: respiratory distress - Cardiovascular Cardiovascular Exam: Present: normal rhythm, normal heart sounds. Absent: systolic murmur, diastolic murmur, rubs, gallop - GI/Abdominal GI/Abdominal exam: Present: soft, normal bowel sounds. Absent: distended, tenderness, guarding, pulsatile mass - Rectal Rectal exam: Present: deferred - Extremities Exam Extremities exam: Present: normal inspection, full ROM, normal capillary refill. Absent: pedal edema, joint swelling, calf tenderness - Back Exam Back exam: Present: normal inspection, full ROM, paraspinal tenderness, vertebral tenderness. Absent: tenderness, CVA tenderness (R), CVA tenderness (L ), muscle spasm - Neurological Exam Neurological exam: Present: alert, oriented X3, other (Extraocular movements intact. Tongue midline. No facial droop. Facial sensation intact to light touch in the V1, V2, V3 distribution bilaterally. 5 and 5 strength in 4 extremities.. Sensation is intact to light touch in 4 extremities.). Absent: motor sensory deficit - Psychiatric Psychiatric exam: Present: anxious - Skin Skin exam: Present: warm, dry, intact, normal color. Absent: rash ED Course Vital Signs 03/16/17 03/16/17 03/16/17 17:40 17:42 17:50 Temperature 98.7 F Pulse Rate 111 H 74 80 Pulse Rate [ Anterior Bilateral] Pulse Rate [ Left Radial] Pulse Rate [ Right Radial] Respiratory 24 21 Rate Respiratory Rate [Anterior Bilateral] Blood Pressure 99/66 Blood Pressure [Left] O2 Sat by Pulse 96 98 Oximetry 03/16/17 03/16/17 03/16/17 17:54 18:00 18:30 Temperature Pulse Rate 83 Pulse Rate [ Anterior Bilateral] Pulse Rate [ Left Radial] Pulse Rate [ Right Radial] Respiratory 18 20 13 Rate Respiratory Rate [Anterior Bilateral] Blood Pressure 105/75 105/75 Blood Pressure [Left] O2 Sat by Pulse 98 96 93 Oximetry 03/16/17 03/16/17 03/16/17 18:53 19:00 19:16 Temperature 98.7 F Pulse Rate 58 L 25 L 30 L Pulse Rate [ Anterior Bilateral] Pulse Rate [ Left Radial] Pulse Rate [ Right Radial] Respiratory 22 22 Rate Respiratory Rate [Anterior Bilateral] Blood Pressure 105/75 Blood Pressure 105/75 110/46 [Left] O2 Sat by Pulse 95 92 97 Oximetry 03/16/17 03/16/17 03/16/17 19:30 20:00 20:15 Temperature Pulse Rate 29 L 27 L Pulse Rate [ 84 Anterior Bilateral] Pulse Rate [ Left Radial] Pulse Rate [ Right Radial] Respiratory 29 H 31 H Rate Respiratory 20 Rate [Anterior Bilateral] Blood Pressure 110/46 110/46 Blood Pressure [Left] O2 Sat by Pulse 93 93 95 Oximetry 03/16/17 03/16/17 03/16/17 20:30 20:33 21:00 Temperature Pulse Rate 43 L 39 L Pulse Rate [ 78 Anterior Bilateral] Pulse Rate [ Left Radial] Pulse Rate [ Right Radial] Respiratory 18 13 Rate Respiratory 18 Rate [Anterior Bilateral] Blood Pressure 133/63 133/63 Blood Pressure [Left] O2 Sat by Pulse 96 Oximetry 03/16/17 03/16/17 03/17/17 21:30 22:00 01:30 Temperature Pulse Rate 72 25 L 44 L Pulse Rate [ Anterior Bilateral] Pulse Rate [ Left Radial] Pulse Rate [ Right Radial] Respiratory 24 23 23 Rate Respiratory Rate [Anterior Bilateral] Blood Pressure 133/63 133/63 99/75 Blood Pressure [Left] O2 Sat by Pulse 95 93 95 Oximetry 03/17/17 03/17/17 03/17/17 02:00 02:30 03:00 Temperature Pulse Rate 66 70 81 Pulse Rate [ Anterior Bilateral] Pulse Rate [ Left Radial] Pulse Rate [ Right Radial] Respiratory 23 27 H 19 Rate Respiratory Rate [Anterior Bilateral] Blood Pressure 95/63 95/63 103/66 Blood Pressure [Left] O2 Sat by Pulse 98 94 97 Oximetry 03/17/17 03/17/17 03/17/17 03:30 04:00 04:30 Temperature Pulse Rate 73 64 67 Pulse Rate [ Anterior Bilateral] Pulse Rate [ Left Radial] Pulse Rate [ Right Radial] Respiratory 17 26 H 17 Rate Respiratory Rate [Anterior Bilateral] Blood Pressure 103/66 103/66 103/66 Blood Pressure [Left] O2 Sat by Pulse 100 99 97 Oximetry 03/17/17 03/17/17 03/17/17 05:00 05:30 06:00 Temperature Pulse Rate 67 67 38 L Pulse Rate [ Anterior Bilateral] Pulse Rate [ Left Radial] Pulse Rate [ Right Radial] Respiratory 25 H 25 H 22 Rate Respiratory Rate [Anterior Bilateral] Blood Pressure 114/60 114/60 117/58 Blood Pressure [Left] O2 Sat by Pulse 97 99 97 Oximetry 03/17/17 03/17/17 03/17/17 06:30 07:00 07:25 Temperature 98.4 F Pulse Rate 41 L 25 L 61 Pulse Rate [ Anterior Bilateral] Pulse Rate [ Left Radial] Pulse Rate [ Right Radial] Respiratory 14 28 H 16 Rate Respiratory Rate [Anterior Bilateral] Blood Pressure 117/58 117/58 Blood Pressure 120/47 [Left] O2 Sat by Pulse 96 98 98 Oximetry 03/17/17 03/17/17 03/17/17 08:00 08:07 09:00 Temperature Pulse Rate 79 82 Pulse Rate [ Anterior Bilateral] Pulse Rate [ Left Radial] Pulse Rate [ Right Radial] Respiratory 27 H 16 28 H Rate Respiratory Rate [Anterior Bilateral] Blood Pressure 120/47 121/82 Blood Pressure [Left] O2 Sat by Pulse 92 98 92 Oximetry 03/17/17 03/17/17 03/17/17 10:00 11:00 11:36 Temperature 98 F Pulse Rate 80 81 84 Pulse Rate [ Anterior Bilateral] Pulse Rate [ Left Radial] Pulse Rate [ Right Radial] Respiratory 23 24 18 Rate Respiratory Rate [Anterior Bilateral] Blood Pressure 121/82 100/51 Blood Pressure 100/57 [Left] O2 Sat by Pulse 98 95 97 Oximetry 03/17/17 03/17/17 13:07 14:42 Temperature 99 F Pulse Rate 83 Pulse Rate [ Anterior Bilateral] Pulse Rate [ 62 Left Radial] Pulse Rate [ 62 Right Radial] Respiratory 18 Rate Respiratory Rate [Anterior Bilateral] Blood Pressure Blood Pressure 112/70 [Left] O2 Sat by Pulse 98 Oximetry - Reevaluation(s) Reevaluation #1: 03/16/17 22:31 differential diagnosis: Pneumonia, pulmonary embolus, costochondritis, acute coronary syndrome, GERD, reflux, migraine headache, tension headache, cluster headache, compression fracture, DJD, arthritis, obesity hypoventilation syndrome, pulmonary hypertension, multifactorial shortness of breath Assessment and plan: 46-year-old male with multiple complaints. Has been cleared by cardiology from an ACS perspective. Low risk by well's criteria, multiple recent hospital admissions, d-dimer is elevated, nuclear medicine study is pending. Laboratory studies reviewed, renal insufficiency improved, troponin negative, EKG morphologically abnormal, with multiple pacer spikes, some of which are conducted, some of which are not. The patient is mentating appropriately. The case is discussed with cardiology, Dr. De Paz, agrees with plan for admission, his group will follow was a consult. Case is discussed with [employer] medical claims representative, Vaishali, she will arrange for device interrogation in the morning. Headache most likely migrainous, not similar thunderclap in nature, GCS of 15, NIH score of 0, no historical exam findings to suggest subarachnoid hemorrhage, noncontrast CT scan of the brain is pending to assess for structural abnormalities Back pain reproducible, most likely musculoskeletal, no clinical symptoms to suggest epidural compression syndrome, the back pain will be treated symptomatically, and a noncontrast CT scan of the back is pending. Plan to admit once initial data points back. Reevaluation #2: 03/17/17 01:[address] scan of the brain is negative. CT scan of the lumbar spine is negative. Nuclear medicine study high probability. Lovenox ordered. [facility] physician, Dr. Webb, accepts patient to her service ED Medical Decision Making - Lab Data Result diagrams: 03/19/17 04:19 03/19/17 04:19 Vital Signs 03/16/17 03/16/17 03/16/17 17:42 17:50 17:54 Temperature 98.7 F Pulse Rate 74 80 Pulse Rate [ Anterior Bilateral] Respiratory 21 18 Rate Respiratory Rate [Anterior Bilateral] Blood Pressure 99/66 Blood Pressure [Left] O2 Sat by Pulse 96 98 98 Oximetry 03/16/17 03/16/17 03/16/17 18:53 19:16 20:15 Temperature 98.7 F Pulse Rate 58 L 30 L Pulse Rate [ 84 Anterior Bilateral] Respiratory 22 22 Rate Respiratory 20 Rate [Anterior Bilateral] Blood Pressure Blood Pressure 105/75 110/46 [Left] O2 Sat by Pulse 95 97 95 Oximetry 03/16/17 20:33 Temperature Pulse Rate Pulse Rate [ 78 Anterior Bilateral] Respiratory Rate Respiratory 18 Rate [Anterior Bilateral] Blood Pressure Blood Pressure [Left] O2 Sat by Pulse Oximetry Labs 03/16/17 03/16/17 03/16/17 18:31 18:31 18:31 WBC 13.2 H RBC 4.48 Hgb 13.3 Hct 39.3 MCV 88 MCH 30 MCHC 34 RDW 18.7 H Plt Count 160 Add Manual Diff Complete Total Counted 100 Seg Neuts % (Manual) 64.0 Band Neutrophils % 13.0 Lymphocytes % (Manual) 9.0 L Reactive Lymphs % (Man) 0 Monocytes % (Manual) 11.0 H Eosinophils % (Manual) 0 Basophils % (Manual) 1.0 Metamyelocytes % 2.0 Myelocytes % 0 Promyelocytes % 0 Blast Cells % 0 Nucleated RBC % Not Reportable Seg Neutrophils # Man 8.4 H Band Neutrophils # 1.7 Lymphocytes # (Manual) 1.2 Abs React Lymphs (Man) 0.0 Monocytes # (Manual) 1.5 H Eosinophils # (Manual) 0.0 Basophils # (Manual) 0.1 Metamyelocytes # 0.3 Myelocytes # 0.0 Promyelocytes # 0.0 Blast Cells # 0.0 WBC Morphology Not Reportable Hypersegmented Neuts Not Reportable Hyposegmented Neuts Not Reportable Hypogranular Neuts Not Reportable Smudge Cells Not Reportable Toxic Granulation Not Reportable Toxic Vacuolation Not Reportable Dohle Bodies Not Reportable Pelger-Huet Anomaly Not Reportable Kanika Rods Not Reportable Platelet Estimate Consistent w auto Clumped Platelets Not Reportable Plt Clumps, EDTA Not Reportable Large Platelets Few Giant Platelets Not Reportable Platelet Satelliting Not Reportable Plt Morphology Comment Not Reportable RBC Morphology Not Reportable Dimorphic RBCs Not Reportable Polychromasia Few Hypochromasia Not Reportable Poikilocytosis Not Reportable Anisocytosis 1+ Microcytosis Not Reportable Macrocytosis Not Reportable Spherocytes Not Reportable Pappenheimer Bodies Not Reportable Sickle Cells Not Reportable Target Cells Not Reportable Tear Drop Cells Not Reportable Ovalocytes Few Helmet Cells Not Reportable Jefferson-Gerster Bodies Not Reportable [place] Rings Not Reportable [place] Cells Not Reportable Bite Cells Not Reportable Crenated Cell Not Reportable Elliptocytes Not Reportable Acanthocytes (Spur) Not Reportable Rouleaux Not Reportable Hemoglobin C Crystals Not Reportable Schistocytes Not Reportable Malaria parasites Not Reportable Kenroy Bodies Not Reportable Hem Pathologist Commnt No PT 15.0 H INR 1.19 H D-Dimer Sodium 137 Potassium 4.4 Chloride 97.1 L Carbon Dioxide 25 Anion Gap 19 BUN 14 Creatinine 1.5 Estimated GFR 50 BUN/Creatinine Ratio 9.33 Glucose 66 L Calcium 8.7 Magnesium Troponin T 0.015 NT-Pro-B Natriuret Pep 03/16/17 03/16/17 03/16/17 18:31 19:31 20:45 WBC RBC Hgb Hct MCV MCH MCHC RDW Plt Count Add Manual Diff Total Counted Seg Neuts % (Manual) Band Neutrophils % Lymphocytes % (Manual) Reactive Lymphs % (Man) Monocytes % (Manual) Eosinophils % (Manual) Basophils % (Manual) Metamyelocytes % Myelocytes % Promyelocytes % Blast Cells % Nucleated RBC % Seg Neutrophils # Man Band Neutrophils # Lymphocytes # (Manual) Abs React Lymphs (Man) Monocytes # (Manual) Eosinophils # (Manual) Basophils # (Manual) Metamyelocytes # Myelocytes # Promyelocytes # Blast Cells # WBC Morphology Hypersegmented Neuts Hyposegmented Neuts Hypogranular Neuts Smudge Cells Toxic Granulation Toxic Vacuolation Dohle Bodies Pelger-Huet Anomaly Kanika Rods Platelet Estimate Clumped Platelets Plt Clumps, EDTA Large Platelets Giant Platelets Platelet Satelliting Plt Morphology Comment RBC Morphology Dimorphic RBCs Polychromasia Hypochromasia Poikilocytosis Anisocytosis Microcytosis Macrocytosis Spherocytes Pappenheimer Bodies Sickle Cells Target Cells Tear Drop Cells Ovalocytes Helmet Cells Jefferson-Gerster Bodies [place] Rings Patricia Cells Bite Cells Crenated Cell Elliptocytes Acanthocytes (Spur) Rouleaux Hemoglobin C Crystals Schistocytes Malaria parasites Kenroy Bodies Hem Pathologist Commnt PT INR D-Dimer 775.3 H Sodium Potassium Chloride Carbon Dioxide Anion Gap BUN Creatinine Estimated GFR BUN/Creatinine Ratio Glucose Calcium Magnesium Troponin T < 0.010 NT-Pro-B Natriuret Pep 2974 H 03/16/17 20:45 WBC RBC Hgb Hct MCV MCH MCHC RDW Plt Count Add Manual Diff Total Counted Seg Neuts % (Manual) Band Neutrophils % Lymphocytes % (Manual) Reactive Lymphs % (Man) Monocytes % (Manual) Eosinophils % (Manual) Basophils % (Manual) Metamyelocytes % Myelocytes % Promyelocytes % Blast Cells % Nucleated RBC % Seg Neutrophils # Man Band Neutrophils # Lymphocytes # (Manual) Abs React Lymphs (Man) Monocytes # (Manual) Eosinophils # (Manual) Basophils # (Manual) Metamyelocytes # Myelocytes # Promyelocytes # Blast Cells # WBC Morphology Hypersegmented Neuts Hyposegmented Neuts Hypogranular Neuts Smudge Cells Toxic Granulation Toxic Vacuolation Dohle Bodies Pelger-Huet Anomaly Kanika Rods Platelet Estimate Clumped Platelets Plt Clumps, EDTA Large Platelets Giant Platelets Platelet Satelliting Plt Morphology Comment RBC Morphology Dimorphic RBCs Polychromasia Hypochromasia Poikilocytosis Anisocytosis Microcytosis Macrocytosis Spherocytes Pappenheimer Bodies Sickle Cells Target Cells Tear Drop Cells Ovalocytes Helmet Cells Jefferson-Gerster Bodies [place] Rings [place] Cells Bite Cells Crenated Cell Elliptocytes Acanthocytes (Spur) Rouleaux Hemoglobin C Crystals Schistocytes Malaria parasites Kenroy Bodies Hem Pathologist Commnt PT INR D-Dimer Sodium Potassium Chloride Carbon Dioxide Anion Gap BUN Creatinine Estimated GFR BUN/Creatinine Ratio Glucose Calcium Magnesium 1.50 L Troponin T NT-Pro-B Natriuret Pep - EKG Data -: EKG Interpreted by Me - EKG Data 03/16/17 22:34 ventricular paced, 81 bpm, intermittent capture, premature ventricular contractions. Rhythm strip demonstrates intermittent premature ventricular contractions. EKG #1 Ventricular paced, 80 bpm, good capture, premature ventricular contractions noted. Not consistent with STEMI. - Radiology Data Radiology results: pending, report reviewed, image reviewed interpreted by me: X-ray chest demonstrates cardiomegaly, clear lungs, left-sided ICD. Noncontrast CT scan of the brain is negative. Noncontrast CT scan of the lumbar spine negative. Nuclear medicine study high probability for pulmonary embolus Critical care attestation.: If time is entered above; I have spent that time in minutes in the direct care of this critically ill patient, excluding procedure time. ED Disposition Clinical Impression: Pulmonary embolism, Chest tightness, Shortness of breath Chest pain Qualifiers: Chest pain type: other chest pain Qualified Code(s): R07.89 - Other chest pain Disposition: OP ADMITTED IP TO THIS HOSP Is pt being admited?: Yes Condition: Stable
[2017-03-16 19:43] LABS: Anisocytosis 1+; Blastocytes % (Manual) 0 %; Eosinophils % (Manual) 0 % (0.0-4.3); Ovalocytes Few; Polychromasia Few
[2017-03-16 19:44] LABS: Diff Status Complete; Large Platelets Few; Platelet Estimate Consistent w Auto
[2017-03-16] MEDS ORDERED: NACL ONE (22:06)
[2017-03-16] MEDS ORDERED: MAGNESIUM SULFATE 2GM/50ML 2 GM/50 ML BAG IV ONE (22:34)
--- NOTE | 2017-03-16 22:57 | Cat Scan Report ---
FINAL REPORT EXAM: CT HEAD/BRAIN WO CON HISTORY: headache TECHNIQUE: CT imaging acquired through the head without intravenous contrast. Transaxial reformations are provided. PRIORS: 01/01/2016 FINDINGS: The ventricles, cisterns and sulci are within normal limits. No intraparenchymal or extra-axial mass, hemorrhage, or mass effect. Bob and white-matter differentiation is within normal limits. Normal spherical shape of the globes. Paranasal sinuses and mastoid air cells are clear. No skull or facial fracture visualized. IMPRESSION: No acute intracranial abnormality.
--- NOTE | 2017-03-16 23:10 | Cat Scan Report ---
FINAL REPORT EXAM: CT LUMBAR SPINE WO CON HISTORY: back pain TECHNIQUE: CT images are acquired through the lumbar spine without contrast. Transaxial , coronal and sagittal reformations are provided. PRIORS: None. FINDINGS: Lumbar lordosis is intact. Mild intervertebral disc space narrowing with associated endplate spondylosis L3-L4 and T12-L1. Vertebral body heights and intervertebral disc spaces are otherwise preserved. No listhesis, spondylolysis or other fracture. Incomplete evaluation of the abdomen and pelvis is remarkable for scattered atherosclerosis. IMPRESSION: No acute fracture or malalignment. Mild sequela of disc degeneration T12-L1 and L3-L4 as above.
--- NOTE | 2017-03-16 23:58 | Nuclear Medicine Report ---
FINAL REPORT PROCEDURE: NM LUNG SCAN PERF/VENT TECHNIQUE: 5mCi Tc-99m MAA was injected IV for pulmonary perfusion imaging in multiple projections. 15 mCi XE-133 aerosol was inhaled for pulmonary ventilation imaging in multiple projections. Injection site: RIGHT antecubital fossa. CPT 02420 REGULATORY GUIDELINES: The patient was released based upon established guidelines. HISTORY: Chest pain. Shortness of breath. COMPARISON: Chest radiograph dated 03/16/2017. FINDINGS: Perfusion: Moderately large defects in the lungs. Ventilation: No defects . IMPRESSION: Moderately large perfusion defects through the lungs, substantially larger than any radiographic abnormality. No matching ventilation defect. Findings concerning for high probability V/Q scan for pulmonary embolism. Recommend CTA of the chest for further characterization if there is continued clinical concern and if patient has no contraindication to MRI.
[2017-03-17] MEDS ORDERED: D50W (25GM) IV ONE
[2017-03-17] MEDS ORDERED: LOVENOX SUB-Q ONE
--- NOTE | 2017-03-17 01:31 | History and Physical Report ---
History of Present Illness Date of examination: 03/17/17 History of present illness: 45 -year-old man with a history of hypertension, diabetes, gout, BRITTON, COPD, CHF comes to the emergency room complaining of shortness of breath. Also complaining of squeezing sensation in his chest in the epigastric area , unable to say how long it lasts for, intensity 5/10, no radiation any cannot identify exacerbating or relieving factors. Also complaining of headache Patient denies abdominal pain, hematochezia, dysuria, frequency, focal weakness , dysarthria, fever chills, polydipsia polyuria, hot or cold intolerance, easy bruisability, or rash or bleeding from mucosal membrane, rhinorrhea, epistaxis, earache, tinnitus, blurry vision, eye discharge, anxiety, depression. Other review of systems negative PAST SURGICAL HISTORY:AICD, hip replacement, gall bladder SOCIAL HISTORY: Denies alcohol, tobacco, drugs FAMILY HISTORY:cad, DM Medications and Allergies Allergies Allergy/AdvReac Type Severity Reaction Status Date / Time cephalexin monohydrate Allergy Hives Verified 03/09/15 22:20 [From Keflex] lidocaine Allergy Hives Verified 03/09/15 22:20 mushrooms Allergy Swelling Uncoded 06/26/15 12:23 Home Medications Medication Instructions Recorded Confirmed Last Taken Type Ferrous Sulfate [Feosol 325 MG tab] 325 mg PO BID 05/19/15 03/16/17 03/06/17 History Magnesium Oxide 400 mg PO DAILY 08/31/16 03/16/17 03/06/17 History Aspirin [Aspirin TAB] 325 mg PO QDAY #30 tablet 12/14/16 03/16/17 03/06/17 Rx Carvedilol [Coreg] 25 mg PO BID #60 tablet 12/14/16 03/16/17 03/06/17 Rx ISOSORBIDE MONOnitrate [Imdur ER] 30 mg PO DAILY #30 tablet 12/14/16 03/16/17 Rx HYDROcodone/APAP 5-325 [[place] 1 each PO Q4H PRN #30 tablet 02/06/17 03/16/17 Rx 5-325 mg TAB] Insulin Glargine,Hum.rec.anlog 20 units SQ QHS #5 pen 02/06/17 03/16/17 Rx [Lantus Solostar] Fluticasone/Salmeterol [Advair 1 each IH PRN PRN 03/06/17 03/16/17 Unknown History Diskus 500-50 mcg] Ipratropium/Albuter (Nf) 2 puff IH BID 03/06/17 03/16/17 Unknown History [Combivent Inhaler] predniSONE [Deltasone] 40 mg PO QDAY #5 tablet 03/09/17 03/16/17 Unknown Rx Amiodarone [Cordarone 200 MG TAB] 200 mg PO QDAY 03/16/17 03/16/17 Unknown History Spironolactone [Aldactone] 25 mg PO QDAY 03/16/17 03/16/17 Unknown History Torsemide [Demadex] 100 mg PO QDAY 03/16/17 03/16/17 Unknown History glipiZIDE [Glucotrol] 10 mg PO QDAY 03/16/17 03/16/17 Unknown History Exam - Physical Exam Narrative exam: Gen. appearance: Patient lying in bed, no apparent distress HEENT: Normocephalic, atraumatic, pupils equally round and reactive to light, extraocular movement intact, and no sclericterus,. No JVD or thyromegaly or nodule,neck supple, no carotid bruit ,mucous membranes moist, no exudate or erythema Heart: S1, S2, regular rate and rhythm Lungs: Clear to auscultation breathing comfortable Abdomen: Positive bowel sounds, nontender, nondistended, no organomegaly Extremity: No edema, cyanosis, clubbing Skin: No rash, nodules, warm, dry Neuro: Oriented 3, cranial nerves II-12 intact, speech is fluent, motor and sensory intact - Constitutional Vitals: Temp Pulse Resp BP Pulse Ox 98.7 F 78 18 110/46 95 03/16/17 19:16 03/16/17 20:33 03/16/17 20:33 03/16/17 19:16 03/16/17 20:15 Results - Labs CBC & Chem 7: 03/16/17 18:31 03/16/17 18:31 Labs: Abnormal lab results 03/16/17 03/16/17 03/16/17 Range/Units 18:31 18:31 18:31 WBC 13.2 H (4.5-11.0) K/mm3 RDW 18.7 H (13.2-15.2) % Lymphocytes % (Manual) 9.0 L (13.4-35.0) % Monocytes % (Manual) 11.0 H (0.0-7.3) % Seg Neutrophils # Man 8.4 H (1.8-7.7) K/mm3 Monocytes # (Manual) 1.5 H (0.0-0.8) K/mm3 PT 15.0 H (12.2-14.9) Sec. INR 1.19 H (0.87-1.13) D-Dimer (0-234) ng/mlDDU Chloride 97.1 L (98-107) mmol/L Glucose 66 L (75-100) mg/dL POC Glucose (70-105) Magnesium (1.7-2.3) mg/dL NT-Pro-B Natriuret Pep (0-450) pg/mL 03/16/17 03/16/17 03/16/17 Range/Units 18:31 19:31 20:45 WBC (4.5-11.0) K/mm3 RDW (13.2-15.2) % Lymphocytes % (Manual) (13.4-35.0) % Monocytes % (Manual) (0.0-7.3) % Seg Neutrophils # Man (1.8-7.7) K/mm3 Monocytes # (Manual) (0.0-0.8) K/mm3 PT (12.2-14.9) Sec. INR (0.87-1.13) D-Dimer 775.3 H (0-234) ng/mlDDU Chloride (98-107) mmol/L Glucose (75-100) mg/dL POC Glucose (70-105) Magnesium 1.50 L (1.7-2.3) mg/dL NT-Pro-B Natriuret Pep 2974 H (0-450) pg/mL 03/17/17 Range/Units 01:00 WBC (4.5-11.0) K/mm3 RDW (13.2-15.2) % Lymphocytes % (Manual) (13.4-35.0) % Monocytes % (Manual) (0.0-7.3) % Seg Neutrophils # Man (1.8-7.7) K/mm3 Monocytes # (Manual) (0.0-0.8) K/mm3 PT (12.2-14.9) Sec. INR (0.87-1.13) D-Dimer (0-234) ng/mlDDU Chloride (98-107) mmol/L Glucose (75-100) mg/dL POC Glucose 62 L (70-105) Magnesium (1.7-2.3) mg/dL NT-Pro-B Natriuret Pep (0-450) pg/mL - Imaging and Cardiology CT Scan - head: report reviewed Assessment and Plan Lumbar CT, V/Q reviewed Acute pulmonary emboli Abnormal EKG COPD A. fib Hypertension Diabetes type 2 Anxiety Depression Restless leg syndrome Chronic venous stasis Morbid obesity BRITTON Admit to medicine Start full dose Lovenox therapy, check Doppler of the lower extremity Check cardiac enzymes, consult cardiology check fingersticks and initiate insulin sliding scale Initiate CPAP at night Continue appropriate outpatient medications and start DVT prophylaxis
[2017-03-17] MEDS ORDERED: ZOFRAN IV PRN (01:35)
[2017-03-17] MEDS ORDERED: DULCOLAX PR PRN (01:35)
[2017-03-17] MEDS ORDERED: TYLENOL PO PRN (01:35)
[2017-03-17] MEDS ORDERED: MILK OF MAGNESIA PO PRN (01:35)
[2017-03-17] MEDS ORDERED: LOVENOX SUB-Q SCH (02:00)
--- NOTE | 2017-03-17 02:33 | Admit Criteria Form ---
Admission Criteria Documentation: HEART FAILURE: COMMON COMPLICATIONS Clinical Indications for Inpatient Care (Place 'X' for any and all applicable criteria): Ongoing inpatient care may be indicated for heart failure with ANY ONE of the following (1)(2)(3)(4)(5): [ ]I. Ongoing need for care for primary condition requiring frequent therapy adjustments because of changes in cardiac function (eg, drug dosage changes for drugs that are renally metabolized) [ ]II. New-onset heart failure [ ]III. Heart failure with decreased urine output not responsive to attempts to optimize volume status [ ]IV. Acute cardiac ischemia causing or associated with failure [ X]V. Complications of heart failure, including ANY ONE of the following: [ ]a) Pericardial effusion [ ]b) Symptomatic pleural effusion [ ]c) O2 saturation <90% or PO2 < 60 mm Hg (8.0 kPa) on room air or require baseline supplemental O2 [ ]d) Tachypnea [ X]e) Dyspnea [ ]f) Syncope [ ]g) Change in mental status [ ]h) Acute renal insufficiency that is severe (reduction of more than 50% in estimated glomerular filtration rate from baseline) or progressive reduction of more than 25% in estimated glomerular filtration rate from baseline, with creatinine continuing to rise) [ ]i) Hemodynamic instability [ ]j) Anasarca [ ]k) Clinically significant metabolic abnormalities due to heart failure (eg, new-onset metabolic acidosis) Extended stay beyond goal length of stay for primary condition may be needed until ALL of the following are present(1)(3): [ ]a) Stable and effective diuretic regimen established (or patient on stable dialysis regimen if in chronic renal failure) [ ]b) Breathing comfortably at rest [ ]c) Saturation of arterial oxygen greater than 90% or at acceptable baseline [ ]d) Pulmonary edema absent or improved [ ]e) Hemodynamic stability [ ]f) Volume status acceptable on oral medication [ ]g) Peripheral or sacral edema absent or improved [ ]h) Renal function stable and manageable at a lower level of care [ ]i) Complications (eg, pleural effusion) resolved or manageable at a lower level of care [ ]j) Patient or caregiver has received written discharge instructions or educational material addressing activity level, diet, discharge medications, follow-up appointment, weight monitoring, and what to do if symptoms worsen The original [facility] content created by [employer] has been revised. The portions of the content which have been revised are identified through the use of italic text or in bold, and [facility] has neither reviewed nor approved the modified material.All other unmodified content is copyright [facility]. Please see references footnoted in the original [facility] edition 2016 Admission Criteria Met: Yes
[2017-03-17 04:41] LABS: Creatine Kinase MB 1.5 ng/mL (0.0-4.0)
[2017-03-17 04:44] LABS: Creatine Kinase 39 units/L (55-170)
[2017-03-17] MEDS ORDERED: TYLENOL PR ONE ×2 (07:05→07:07)
--- NOTE | 2017-03-17 10:51 | Event Note ---
Date: 03/17/17 Patient diagnosed with pulmonary edema. Started on Lovenox. Pulmonology, Dr. Andrea group to see.
[2017-03-17 11:05] LABS: Creatine Kinase MB 1.4 ng/mL (0.0-4.0)
--- NOTE | 2017-03-17 13:19 | Consultation ---
History of Present Illness Consult date: 03/17/17 Consult reason: shortness of breath History of present illness: This is a 45-year-old male patient who is presenting with shortness of breath as well as chest tightness. Patient's VQ scan is positive for pulmonary embolism. Patient is currently admitted for further evaluation and treatment.. Chest pain and shortness of breath likely secondary to pulmonary embolism. Past History Past Medical History: CAD, hypertension, pulmonary embolism Past Surgical History: No surgical history Social history: denies: smoking, alcohol abuse, IV drug use Family history: no significant family history Medications and Allergies Allergies Allergy/AdvReac Type Severity Reaction Status Date / Time cephalexin monohydrate Allergy Hives Verified 03/09/15 22:20 [From Keflex] lidocaine Allergy Hives Verified 03/09/15 22:20 mushrooms Allergy Swelling Uncoded 06/26/15 12:23 Home Medications Medication Instructions Recorded Confirmed Last Taken Type Ferrous Sulfate [Feosol 325 MG tab] 325 mg PO BID 05/19/15 03/16/17 03/06/17 History Magnesium Oxide 400 mg PO DAILY 08/31/16 03/16/17 03/06/17 History Aspirin [Aspirin TAB] 325 mg PO QDAY #30 tablet 12/14/16 03/16/17 03/06/17 Rx Carvedilol [Coreg] 25 mg PO BID #60 tablet 12/14/16 03/16/17 03/06/17 Rx ISOSORBIDE MONOnitrate [Imdur ER] 30 mg PO DAILY #30 tablet 12/14/16 03/16/17 Rx HYDROcodone/APAP 5-325 [[place] 1 each PO Q4H PRN #30 tablet 02/06/17 03/16/17 Rx 5-325 mg TAB] Insulin Glargine,Hum.rec.anlog 20 units SQ QHS #5 pen 02/06/17 03/16/17 Rx [Lantus Solostar] Fluticasone/Salmeterol [Advair 1 each IH PRN PRN 03/06/17 03/16/17 Unknown History Diskus 500-50 mcg] Ipratropium/Albuter (Nf) 2 puff IH BID 03/06/17 03/16/17 Unknown History [Combivent Inhaler] predniSONE [Deltasone] 40 mg PO QDAY #5 tablet 03/09/17 03/16/17 Unknown Rx Amiodarone [Cordarone 200 MG TAB] 200 mg PO QDAY 03/16/17 03/16/17 Unknown History Spironolactone [Aldactone] 25 mg PO QDAY 03/16/17 03/16/17 Unknown History Torsemide [Demadex] 100 mg PO QDAY 03/16/17 03/16/17 Unknown History glipiZIDE [Glucotrol] 10 mg PO QDAY 03/16/17 03/16/17 Unknown History Active Meds: Active Medications Bisacodyl (Dulcolax) 10 mg [place] QDAY PRN PRN Reason: [place] [facility] [place]ox[place]arin Sodium (Lovenox) 100 mg 1 mg/kg (170 mg) SUB-Q Q12H [facility] Enoxaparin Sodium (Lovenox) 70 mg 1 mg/kg (170 mg) SUB-Q Q12H [facility] Magnesium Hydroxide (Milk Of Magnesia) 30 ml PO Q4H PRN PRN Reason: Constipation Ondansetron HCl (Zofran) 4 mg IV Q8H PRN PRN Reason: N/V unrelieved by Reglan Review of Systems Constitutional: weakness, no weight loss, no weight gain, no fatigue Ears, nose, mouth and throat: no ear discharge, no nasal congestion, no sinus pain, no hoarseness, no headache Cardiovascular: shortness of breath, dyspnea on exertion, no chest pain, no lightheadedness Respiratory: shortness of breath, no cough, no cough with sputum, no excessive sputum Gastrointestinal: no abdominal pain, no vomiting, no melena, no hematochezia, no loss of appetite, no early satiety Genitourinary Male: no dysuria, no flank pain, no urinary frequency, no urinary hesitancy Rectal: no pain Musculoskeletal: no neck stiffness, no neck pain, no muscle weakness Endocrine: no cold intolerance, no heat intolerance, no polyphagia, no excessive thirst, no polydipsia, no polyuria Hematologic/Lymphatic: no easy bruising, no easy bleeding Allergic/Immunologic: no urticaria, no allergic rhinitis, no wheezing Physical Examination Vital Signs Pulse Resp 111 H 24 03/16/17 17:40 03/16/17 17:40 Results 03/18/17 05:45 03/18/17 05:45 Cardiac Enzymes 03/17/17 03/17/17 Range/Units 03:39 10:20 CK-MB (CK-2) 1.5 1.4 (0.0-4.0) ng/mL Assessment and Plan . 1. Acute pulmonary embolism 2. 2. Chronic obstructive pulmonary disease 3. Obesity 4. Sleep apnea Plan start anticoagulation. Obtain echocardiogram assess pulmonary pressure
[2017-03-17] MEDS: LOVENOX SUB-Q SCH ×2 (13:20→13:21)
[2017-03-17] MEDS ORDERED: ASPIRIN PO ONE (15:02)
[2017-03-18] MEDS: FLONASE NS PRN ×2 (01:24→22:16)
[2017-03-18] MEDS: LOVENOX SUB-Q SCH ×4 (01:26→13:01)
[2017-03-18] MEDS: PERCOCET 5/325 PO PRN ×2 (01:45→13:02)
[2017-03-18 06:12] LABS: Hematocrit 39.8 % (35.5-45.6); Hemoglobin 12.9 gm/dl (11.8-15.2); Mean Corpuscular HGB Conc 32 % (32-34); Mean Corpuscular Hemoglobin 29 pg (28-32); Mean Corpuscular Volume 89 fl (84-94); Platelet Count 126 K/mm3 (140-440); Red Blood Count 4.49 M/mm3 (3.65-5.03); Red Cell Distribution Width 18.9 % (13.2-15.2); White Blood Count 11.4 K/mm3 (4.5-11.0)
[2017-03-18 06:30] LABS: BUN/Creatinine Ratio 13.57; Calcium 8.4 mg/dL (8.4-10.2); Chloride 96.6 mmol/L (98-107); Potassium 3.8 mmol/L (3.6-5.0)
--- NOTE | 2017-03-18 09:41 | Progress Note ---
Assessment and Plan 1. Acute pulmonary embolism 2. Dilated nonischemic cardiomyopathy 3. Chronic obstructive pulmonary disease 4. Essential hypertension 5. Type 2 diabetes mellitus 6. Obstructive sleep apnea 7. Status post AICD insertion Plan. Patient currently on Lovenox subcutaneous injections. He will be transitioned to Xarelto daily. continue regular cardiac medication. Subjective Date of service: 03/18/17 Principal diagnosis: Cardiomyopathy Interval history: Patient feels fine but still has dyspnea at rest currently on a BiPAP machine. Denies chest pain. Objective Vital Signs Temp Pulse Pulse Pulse Resp BP BP 03/18/17 09:27 03/18/17 05:00 98.7 F 57 L 21 03/18/17 04:00 86 03/18/17 01:00 99.4 F 99 H 20 03/17/17 22:34 86 20 03/17/17 22:00 03/17/17 20:38 99.7 F H 106 H 21 03/17/17 20:05 103 H 03/17/17 17:50 99.1 F 84 18 03/17/17 15:17 78 03/17/17 14:42 99 F 83 18 112/70 03/17/17 13:07 62 62 03/17/17 11:36 98 F 84 18 100/57 03/17/17 11:00 81 24 100/51 03/17/17 10:00 80 23 121/82 BP Pulse Ox 03/18/17 09:27 93 03/18/17 05:00 128/60 93 03/18/17 04:00 03/18/17 01:00 160/63 99 03/17/17 22:34 96 03/17/17 22:00 97 03/17/17 20:38 125/80 91 03/17/17 20:05 03/17/17 17:50 118/84 96 03/17/17 15:17 03/17/17 14:42 98 03/17/17 13:07 03/17/17 11:36 97 03/17/17 11:00 95 03/17/17 10:00 98 - Physical Examination General: Appears Well, No Apparent Distress, Other (morbidly obese) HEENT: Positive: PERRL, Normocephaly Neck: Positive: neck supple, trachea midline. Negative: JVD/HJR Cardiac: Positive: Regular Rate, S1/S2, S3, S4, PMI, Dilated, Laterally Displaced Lungs: Positive: clear to auscultation, No Wheeze, Rales, Rhonchi Neuro: Positive: Grossly Intact Abdomen: Positive: Unremarkable, Soft, Active Bowel Sounds Extremities: Present: normal. Absent: edema - Labs and Meds Cardiac Enzymes 03/17/17 Range/Units 10:20 CK-MB (CK-2) 1.4 (0.0-4.0) ng/mL CBC 03/18/17 Range/Units 05:45 WBC 11.4 H (4.5-11.0) K/mm3 RBC 4.49 (3.65-5.03) M/mm3 Hgb 12.9 (11.8-15.2) gm/dl Hct 39.8 (35.5-45.6) % Plt Count 126 L (140-440) K/mm3 Comprehensive Metabolic Panel 03/18/17 Range/Units 05:45 Sodium 134 L (137-145) mmol/L Potassium 3.8 (3.6-5.0) mmol/L Chloride 96.6 L (98-107) mmol/L Carbon Dioxide 22 (22-30) mmol/L BUN 19 (9-20) mg/dL Creatinine 1.4 (0.8-1.5) mg/dL Glucose 87 (75-100) mg/dL Calcium 8.4 (8.4-10.2) mg/dL - Telemetry EKG Rhythm: Sinus Rhythm
--- NOTE | 2017-03-18 10:16 | Event Note ---
Date: 03/18/17 Patient has been seen/followed by Dr. Hernandez as early as 2 weeks ago with the last note being on 03/[address] Schaefer. Please consult that group.
[2017-03-18 11:38] LABS: Anisocytosis 1+; Blastocytes % (Manual) 0 %; Diff Status Complete
--- NOTE | 2017-03-18 13:48 | Consultation ---
History of Present Illness Consult date: 03/18/17 Reason for consult: pulmonary embolism (Shortness of breath with V/Q scan suggestive of pulmonary embolism) History of present illness: 45 -year-old man with a history of hypertension, diabetes, gout, BRITTON on CPAP( compliant), COPD, CHF comes to the emergency room complaining of shortness of breath. Also complaining of squeezing sensation in his chest in the epigastric area , unable to say how long it lasts for, intensity 5/10, no radiation any cannot identify exacerbating or relieving factors. Also complaining of headache Patient denies abdominal pain, hematochezia, dysuria, frequency, focal weakness , dysarthria, fever chills, polydipsia polyuria, hot or cold intolerance, easy bruisability, or rash or bleeding from mucosal membrane, rhinorrhea, epistaxis, earache, tinnitus, blurry vision, eye discharge, anxiety, depression. Other review of systems negative. On V/Q was noted to have high probability scan for Pulmonary embolism, we have been consulted to assist with his pulmonary care Past History Past Medical History: CAD, hypertension, pulmonary embolism Past Surgical History: No surgical history Social history: denies: smoking, alcohol abuse, IV drug use Family history: no significant family history Medications and Allergies Allergies Allergy/AdvReac Type Severity Reaction Status Date / Time cephalexin monohydrate Allergy Hives Verified 03/09/15 22:20 [From Keflex] lidocaine Allergy Hives Verified 03/09/15 22:20 mushrooms Allergy Swelling Uncoded 06/26/15 12:23 Home Medications Medication Instructions Recorded Confirmed Last Taken Type Ferrous Sulfate [Feosol 325 MG tab] 325 mg PO BID 05/19/15 03/16/17 03/06/17 History Magnesium Oxide 400 mg PO DAILY 08/31/16 03/16/17 03/06/17 History Aspirin [Aspirin TAB] 325 mg PO QDAY #30 tablet 12/14/16 03/16/17 03/06/17 Rx Carvedilol [Coreg] 25 mg PO BID #60 tablet 12/14/16 03/16/17 03/06/17 Rx ISOSORBIDE MONOnitrate [Imdur ER] 30 mg PO DAILY #30 tablet 12/14/16 03/16/17 Rx HYDROcodone/APAP 5-325 [[place] 1 each PO Q4H PRN #30 tablet 02/06/17 03/16/17 Rx 5-325 mg TAB] Insulin Glargine,Hum.rec.anlog 20 units SQ QHS #5 pen 02/06/17 03/16/17 Rx [Lantus Solostar] Fluticasone/Salmeterol [Advair 1 each IH PRN PRN 03/06/17 03/16/17 Unknown History Diskus 500-50 mcg] Ipratropium/Albuter (Nf) 2 puff IH BID 03/06/17 03/16/17 Unknown History [Combivent Inhaler] predniSONE [Deltasone] 40 mg PO QDAY #5 tablet 03/09/17 03/16/17 Unknown Rx Amiodarone [Cordarone 200 MG TAB] 200 mg PO QDAY 03/16/17 03/16/17 Unknown History Spironolactone [Aldactone] 25 mg PO QDAY 03/16/17 03/16/17 Unknown History Torsemide [Demadex] 100 mg PO QDAY 03/16/17 03/16/17 Unknown History glipiZIDE [Glucotrol] 10 mg PO QDAY 03/16/17 03/16/17 Unknown History Active Meds: Active Medications Bisacodyl (Dulcolax) 10 mg [place] QDAY PRN PRN Reason: Constipation unrelieved by MOM Enoxaparin Sodium (Lovenox) 100 mg 1 mg/kg (170 mg) SUB-Q Q12H [facility] Last Admin: 03/18/17 13:01 Dose: 100 mg Enoxaparin Sodium (Lovenox) 70 mg 1 mg/kg (170 mg) SUB-Q Q12H [facility] Last Admin: 03/18/17 13:01 Dose: 70 mg Fluticasone Propionate (Flonase) 50 mcg NS BID PRN PRN Reason: nasal stuffiness Last Admin: 03/18/17 01:24 Dose: 50 mcg Magnesium Hydroxide (Milk Of Magnesia) 30 ml PO Q4H PRN PRN Reason: Constipation Ondansetron HCl (Zofran) 4 mg IV Q8H PRN PRN Reason: N/V unrelieved by Reglan Oxycodone/Acetaminophen (Percocet 5/325) 2 tab PO Q6H PRN PRN Reason: Pain, Moderate (4-6) Last Admin: 03/18/17 13:02 Dose: 2 tab Review of Systems All systems: negative Physical Examination Vital signs: Vital Signs Pulse Resp 111 H 24 03/16/17 17:40 03/16/17 17:40 General appearance: no acute distress, other (heavily tatooed, extreme obesity) Eyes: non-icteric ENT: oropharynx moist Neck: supple, no lymphadenopathy, no JVD Effort: normal, mildly labored Ascultation: Bilateral: clear, diminished breath sounds (at the bases) Cardiovascular: regular rate and rhythm, other (no murmurs, no gallops. Distant secondary to patient's habitus) Gastrointestinal: normoactive bowel sounds, soft, non-tender, non-distended Integumentary: normal Extremities: no cyanosis, no edema Musculoskeletal: no deformities normal mental status, non-focal exam, pupils equal and round, motor strength normal and mood appropriate, affect normal Results - Laboratory Findings CBC and BMP: 03/19/17 04:19 03/19/17 04:19 PT/INR, D-dimer PT 15.0 Sec. (12.2-14.9) H 03/16/17 18:31 INR 1.19 (0.87-1.13) H 03/16/17 18:31 D-Dimer 775.3 ng/mlDDU (0-234) H 03/16/17 19:31 Abnormal lab findings: Abnormal Labs 03/17/17 03/17/17 03/17/17 03:39 10:20 15:35 WBC RDW Plt Count Seg Neuts % (Manual) Lymphocytes % (Manual) Seg Neutrophils # Man Lymphocytes # (Manual) Sodium Chloride POC Glucose 68 L Total Creatine Kinase 39 L 32 L CK-MB (CK-2) Rel Index 4.3 H 03/18/17 03/18/17 03/18/17 05:45 05:45 08:53 WBC 11.4 H RDW 18.9 H Plt Count 126 L Seg Neuts % (Manual) 81.0 H Lymphocytes % (Manual) 7.0 L Seg Neutrophils # Man 9.2 H Lymphocytes # (Manual) 0.8 L Sodium 134 L Chloride 96.6 L POC Glucose 118 H Total Creatine Kinase CK-MB (CK-2) Rel Index 03/18/17 11:40 WBC RDW Plt Count Seg Neuts % (Manual) Lymphocytes % (Manual) Seg Neutrophils # Man Lymphocytes # (Manual) Sodium Chloride POC Glucose 126 H Total Creatine Kinase CK-MB (CK-2) Rel Index Assessment and Plan - Patient Problems (1) Pulmonary embolism Current Visit: Yes Status: Acute Qualifiers: Pulmonary embolism type: P Chronicity: C Acute cor pulmonale presence: A Plan to address problem: With high probability v/Q scan treat with anticoagulation- with his weight and maxium recommended doses of enoxaparin, he may benefit from a heparin infusion for 2-3 days to stabilize the clot with coumadin bridge. Again with Xarelto or the NOACs, I would need to review the data to see if there is any data to suggest reduced efficay with large BMI. For now heparin infusion with coumadin bridge. Treat for 6 months. Get lower extremity dopplers to r/o DVT Get 2D echo to evaluate for pulmonary HTN and right heart function I suspect this PE was provoked from recent admission and immobility/decreased activity. (2) Chest pain Current Visit: No Status: Acute Qualifiers: Chest pain type: precordial pain Ischemic chest pain type: I Qualified Code(s): R07.2 - Precordial pain Plan to address problem: Probably secondary to PE Monitor closely (3) Shortness of breath Current Visit: No Status: Acute Plan to address problem: Multifactorial, exacerbated by PE. Continue current therapies (4) Sleep apnea, obstructive Current Visit: No Status: Acute Plan to address problem: CPAP at night and when asleep. patient has his machine at the bedside (5) Morbid obesity due to excess calories Current Visit: No Status: Chronic Plan to address problem: Weight loss and life style modifications (6) COPD (chronic obstructive pulmonary disease) Current Visit: Yes Status: Acute Qualifiers: COPD type: C Chronic bronchitis type: C Emphysema type: E Plan to address problem: Was on Combivent at home. Bronchodilators while on admission.
--- NOTE | 2017-03-18 15:31 | Progress Note ---
Assessment and Plan Assessment and plan: Acute pulmonary embolism. Started on Lovenox 1mg/.kg subcut. Pulmonology consulted. We'll start Coumadin, dosing by pharmacy Diabetes mellitus Type 2. Fingerstick glucose before every meal and at bedtime COPD Chronic CHF. On Demadex, coreg Obstructive sleep apnea. CPAP q hs Anxiety and depression Morbid obesity Full code status History Interval history: less chest pain, less shortness of breath Hospitalist Physical - Physical exam Narrative exam: Appearance: Not in acute distress, morbidly obese, HEENT: normocephalic, atraumatic Neck : supple, no JVD Lungs: Clear to auscultation bilaterally, no crackles or wheeze Heart : S1 and S2 regular, no murmurs, rubs or gallop Abdomen: soft, non-tender, non-distended, normal bowel sounds Extremities: No edema, no clubbing, no cyanosis Neuro: Awake, alert, oriented 3, moves all ext, Psych: normal mood - Constitutional Vitals: Temp Pulse Resp BP Pulse Ox 98.6 F 86 20 154/71 93 03/18/17 14:17 03/18/17 14:17 03/18/17 14:17 03/18/17 14:17 03/18/17 09:27 Results - Labs CBC & Chem 7: 03/18/17 05:45 03/18/17 05:45 Labs: Laboratory Last Values WBC 11.4 K/mm3 (4.5-11.0) H 03/18/17 05:45 RBC 4.49 M/mm3 (3.65-5.03) 03/18/17 05:45 Hgb 12.9 gm/dl (11.8-15.2) 03/18/17 05:45 Hct 39.8 % (35.5-45.6) 03/18/17 05:45 MCV 89 fl (84-94) 03/18/17 05:45 MCH 29 pg (28-32) 03/18/17 05:45 MCHC 32 % (32-34) 03/18/17 05:45 RDW 18.9 % (13.2-15.2) H 03/18/17 05:45 Plt Count 126 K/mm3 (140-440) L 03/18/17 05:45 Add Manual Diff Complete 03/18/17 05:45 Total Counted 100 03/18/17 05:45 Seg Neuts % (Manual) 81.0 % (40.0-70.0) H 03/18/17 05:45 Band Neutrophils % 5.0 % 03/18/17 05:45 Lymphocytes % (Manual) 7.0 % (13.4-35.0) L 03/18/17 05:45 Reactive Lymphs % (Man) 0 % 03/18/17 05:45 Monocytes % (Manual) 7.0 % (0.0-7.3) 03/18/17 05:45 Eosinophils % (Manual) 0 % (0.0-4.3) 03/16/17 18:31 Basophils % (Manual) 1.0 % (0.0-1.8) 03/16/17 18:31 Metamyelocytes % 0 % 03/18/17 05:45 Myelocytes % 0 % 03/18/17 05:45 Promyelocytes % 0 % 03/18/17 05:45 Blast Cells % 0 % 03/18/17 05:45 Nucleated RBC % Not Reportable 03/18/17 05:45 Seg Neutrophils # Man 9.2 K/mm3 (1.8-7.7) H 03/18/17 05:45 Band Neutrophils # 0.6 K/mm3 03/18/17 05:45 Lymphocytes # (Manual) 0.8 K/mm3 (1.2-5.4) L 03/18/17 05:45 Abs React Lymphs (Man) 0.0 K/mm3 03/18/17 05:45 Monocytes # (Manual) 0.8 K/mm3 (0.0-0.8) 03/18/17 05:45 Eosinophils # (Manual) 0.0 K/mm3 (0.0-0.4) 03/18/17 05:45 Basophils # (Manual) 0.0 K/mm3 (0.0-0.1) 03/18/17 05:45 Metamyelocytes # 0.0 K/mm3 03/18/17 05:45 Myelocytes # 0.0 K/mm3 03/18/17 05:45 Promyelocytes # 0.0 K/mm3 03/18/17 05:45 Blast Cells # 0.0 K/mm3 03/18/17 05:45 WBC Morphology Not Reportable 03/18/17 05:45 Hypersegmented Neuts Not Reportable 03/18/17 05:45 Hyposegmented Neuts Not Reportable 03/18/17 05:45 Hypogranular Neuts Not Reportable 03/18/17 05:45 Smudge Cells Not Reportable 03/18/17 05:45 Toxic Granulation Not Reportable 03/18/17 05:45 Toxic Vacuolation Not Reportable 03/18/17 05:45 Dohle Bodies Not Reportable 03/18/17 05:45 Pelger-Huet Anomaly Not Reportable 03/18/17 05:45 Kanika Rods Not Reportable 03/18/17 05:45 Platelet Estimate Not Reportable 03/18/17 05:45 Clumped Platelets Not Reportable 03/18/17 05:45 Plt Clumps, EDTA Not Reportable 03/18/17 05:45 Large Platelets Not Reportable 03/18/17 05:45 Giant Platelets Not Reportable 03/18/17 05:45 Platelet Satelliting Not Reportable 03/18/17 05:45 Plt Morphology Comment Not Reportable 03/18/17 05:45 RBC Morphology Not Reportable 03/18/17 05:45 Dimorphic RBCs Not Reportable 03/18/17 05:45 Polychromasia Not Reportable 03/18/17 05:45 Hypochromasia Not Reportable 03/18/17 05:45 Poikilocytosis Not Reportable 03/18/17 05:45 Anisocytosis 1+ 03/18/17 05:45 Microcytosis Not Reportable 03/18/17 05:45 Macrocytosis Not Reportable 03/18/17 05:45 Spherocytes Not Reportable 03/18/17 05:45 Pappenheimer Bodies Not Reportable 03/18/17 05:45 Sickle Cells Not Reportable 03/18/17 05:45 Target Cells Not Reportable 03/18/17 05:45 Tear Drop Cells Not Reportable 03/18/17 05:45 Ovalocytes Not Reportable 03/18/17 05:45 Helmet Cells Not Reportable 03/18/17 05:45 [place] Bodies Not Reportable 03/18/17 05:45 [place] Rings Not Reportable 03/18/17 05:45 [place] Cells Not Reportable 03/18/17 05:45 Bite Cells Not Reportable 03/18/17 05:45 Crenated Cell Not Reportable 03/18/17 05:45 Elliptocytes Not Reportable 03/18/17 05:45 Acanthocytes (Spur) Not Reportable 03/18/17 05:45 Rouleaux Not Reportable 03/18/17 05:45 Hemoglobin C Crystals Not Reportable 03/18/17 05:45 Schistocytes Not Reportable 03/18/17 05:45 Malaria parasites Not Reportable 03/18/17 05:45 [place] Bodies Not Reportable 03/18/17 05:45 Hem Pathologist Commnt No 03/18/17 05:45 PT 15.0 Sec. (12.2-14.9) H 03/16/17 18:31 INR 1.19 (0.87-1.13) H 03/16/17 18:31 D-Dimer 775.3 ng/mlDDU (0-234) H 03/16/17 19:31 Sodium 134 mmol/L (137-145) L 03/18/17 05:45 Potassium 3.8 mmol/L (3.6-5.0) 03/18/17 05:45 Chloride 96.6 mmol/L (98-107) L 03/18/17 05:45 Carbon Dioxide 22 mmol/L (22-30) 03/18/17 05:45 Anion Gap 19 mmol/L 03/18/17 05:45 BUN 19 mg/dL (9-20) 03/18/17 05:45 Creatinine 1.4 mg/dL (0.8-1.5) 03/18/17 05:45 Estimated GFR 54 ml/min 03/18/17 05:45 BUN/Creatinine Ratio 13.57 % 03/18/17 05:45 Glucose 87 mg/dL (75-100) 03/18/17 05:45 POC Glucose 126 (70-105) H 03/18/17 11:40 Calcium 8.4 mg/dL (8.4-10.2) 03/18/17 05:45 Magnesium 1.50 mg/dL (1.7-2.3) L 03/16/17 20:45 Total Creatine Kinase 32 units/L (55-170) L 03/17/17 10:20 CK-MB (CK-2) 1.4 ng/mL (0.0-4.0) 03/17/17 10:20 CK-MB (CK-2) Rel Index 4.3 (0-4) H 03/17/17 10:20 Troponin T 0.010 ng/mL (0.00-0.029) 03/17/17 10:20 NT-Pro-B Natriuret Pep 2974 pg/mL (0-450) H 03/16/17 18:31
[2017-03-18] MEDS: COUMADIN PO SCH (17:15)
[2017-03-19] MEDS: LOVENOX SUB-Q SCH ×4 (00:54→14:22)
[2017-03-19 05:36] LABS: Hematocrit 35.4 % (35.5-45.6); Hemoglobin 11.6 gm/dl (11.8-15.2); Mean Corpuscular HGB Conc 33 % (32-34); Mean Corpuscular Hemoglobin 29 pg (28-32); Mean Corpuscular Volume 87 fl (84-94); Platelet Count 116 K/mm3 (140-440); Red Blood Count 4.05 M/mm3 (3.65-5.03); Red Cell Distribution Width 17.9 % (13.2-15.2); White Blood Count 12.8 K/mm3 (4.5-11.0)
[2017-03-19 05:43] LABS: Anion Gap 17 mmol/L; Blood Urea Nitrogen 11 mg/dL (9-20); Calcium 8.4 mg/dL (8.4-10.2); Carbon Dioxide 21 mmol/L (22-30); Chloride 98.7 mmol/L (98-107); Glucose 96 mg/dL (75-100); Potassium 3.9 mmol/L (3.6-5.0); Sodium 133 mmol/L (137-145)
[2017-03-19 05:47] LABS: INR 1.31 (0.87-1.13)
[2017-03-19] MEDS ORDERED: FLUTICASONE IH PRN (08:58)
[2017-03-19] MEDS ORDERED: SALMETEROL IH PRN (08:58)
[2017-03-19] MEDS ORDERED: NORCO 5/325 PO PRN (08:58)
[2017-03-19] MEDS ORDERED: PROVENTIL IH PRN (09:58)
[2017-03-19] MEDS ORDERED: NON-FORMULARY (Ipratropium/Albuter (Nf) 2 PUFF) IH SCH (10:00)
--- NOTE | 2017-03-19 10:21 | Progress Note ---
Assessment and Plan 1. Acute pulmonary embolism 2. Dilated nonischemic cardiomyopathy 3. Chronic obstructive pulmonary disease 4. Essential hypertension 5. Type 2 diabetes mellitus 6. Obstructive sleep apnea 7. Status post AICD insertion Plan. Patient currently on Lovenox subcutaneous injections. He will be transitioned to Coumadin. continue regular cardiac medication. Subjective Date of service: 03/19/17 Principal diagnosis: Cardiomyopathy Interval history: Patient feels fine but still mildly short of breath at rest currently on a BiPAP machine. Denies chest pain. Objective Vital Signs Temp Pulse Pulse Pulse Resp BP Pulse Ox 03/19/17 08:40 98.6 F 52 L 20 143/71 95 03/19/17 05:00 97.8 F 79 19 133/74 99 03/19/17 04:00 71 03/19/17 00:45 97.7 F 58 L 20 170/82 96 03/18/17 20:11 98.5 F 112 H 22 166/94 93 03/18/17 20:07 92 03/18/17 19:54 111 H 03/18/17 14:17 98.6 F 86 20 154/71 03/18/17 12:00 83 - Physical Examination General: Appears Well, No Apparent Distress, Other (morbidly obese) HEENT: Positive: PERRL, Normocephaly Neck: Positive: neck supple, trachea midline. Negative: JVD/HJR Cardiac: Positive: Regular Rate, Regular Rhythm, S1/S2, S3, PMI, Laterally Displaced Lungs: Positive: clear to auscultation, No Wheeze, Rales, Rhonchi Neuro: Positive: Grossly Intact Abdomen: Positive: Unremarkable, Soft, Active Bowel Sounds Extremities: Present: normal. Absent: edema - Labs and Meds Coagulation 03/19/17 Range/Units 04:19 PT 16.2 H (12.2-14.9) Sec. INR 1.31 H (0.87-1.13) CBC 03/19/17 Range/Units 04:19 WBC 12.8 H (4.5-11.0) K/mm3 RBC 4.05 (3.65-5.03) M/mm3 Hgb 11.6 L (11.8-15.2) gm/dl Hct 35.4 L (35.5-45.6) % Plt Count 116 L (140-440) K/mm3 Comprehensive Metabolic Panel 03/19/17 Range/Units 04:19 Sodium 133 L (137-145) mmol/L Potassium 3.9 (3.6-5.0) mmol/L Chloride 98.7 (98-107) mmol/L Carbon Dioxide 21 L (22-30) mmol/L BUN 11 (9-20) mg/dL Creatinine 1.1 (0.8-1.5) mg/dL Glucose 96 (75-100) mg/dL Calcium 8.4 (8.4-10.2) mg/dL
--- NOTE | 2017-03-19 10:22 | Progress Note ---
Assessment and Plan Assessment and plan: Acute pulmonary embolism. Continue Lovenox and Coumadin. Dosing of Coumadin by pharmacy. Pulmonology following. INR 1.31 today Diabetes mellitus Type 2. Fingerstick glucose before every meal and at bedtime COPD, mixed stable. He is on DuoNeb every 6 hours and when necessary Chronic CHF. On Demadex, coreg Obstructive sleep apnea. CPAP Q hs Anxiety and depression. Morbid obesity Full code status History Interval history: less chest pain, less shortness of breath Hospitalist Physical - Physical exam Narrative exam: Appearance: Not in acute distress, morbidly obese, HEENT: normocephalic, atraumatic Neck : supple, no JVD Lungs: Clear to auscultation bilaterally, no crackles or wheeze Heart : S1 and S2 regular, no murmurs, rubs or gallop Abdomen: soft, non-tender, non-distended, normal bowel sounds Extremities: No edema, no clubbing, no cyanosis Neuro: Awake, alert, oriented 3, moves all ext, Psych: normal mood - Constitutional Vitals: Temp Pulse Resp BP Pulse Ox 98.6 F 52 L 20 143/71 95 03/19/17 08:40 03/19/17 08:40 03/19/17 08:40 03/19/17 08:40 03/19/17 08:40 Results - Labs CBC & Chem 7: 03/19/17 04:19 03/19/17 04:19 Labs: Laboratory Last Values WBC 12.8 K/mm3 (4.5-11.0) H 03/19/17 04:19 RBC 4.05 M/mm3 (3.65-5.03) 03/19/17 04:19 Hgb 11.6 gm/dl (11.8-15.2) L 03/19/17 04:19 Hct 35.4 % (35.5-45.6) L 03/19/17 04:19 MCV 87 fl (84-94) 03/19/17 04:19 MCH 29 pg (28-32) 03/19/17 04:19 MCHC 33 % (32-34) 03/19/17 04:19 RDW 17.9 % (13.2-15.2) H 03/19/17 04:19 Plt Count 116 K/mm3 (140-440) L 03/19/17 04:19 Add Manual Diff Complete 03/18/17 05:45 Total Counted 100 03/18/17 05:45 Seg Neuts % (Manual) 81.0 % (40.0-70.0) H 03/18/17 05:45 Band Neutrophils % 5.0 % 03/18/17 05:45 Lymphocytes % (Manual) 7.0 % (13.4-35.0) L 03/18/17 05:45 Reactive Lymphs % (Man) 0 % 03/18/17 05:45 Monocytes % (Manual) 7.0 % (0.0-7.3) 03/18/17 05:45 Eosinophils % (Manual) 0 % (0.0-4.3) 03/16/17 18:31 Basophils % (Manual) 1.0 % (0.0-1.8) 03/16/17 18:31 Metamyelocytes % 0 % 03/18/17 05:45 Myelocytes % 0 % 03/18/17 05:45 Promyelocytes % 0 % 03/18/17 05:45 Blast Cells % 0 % 03/18/17 05:45 Nucleated RBC % Not Reportable 03/18/17 05:45 Seg Neutrophils # Man 9.2 K/mm3 (1.8-7.7) H 03/18/17 05:45 Band Neutrophils # 0.6 K/mm3 03/18/17 05:45 Lymphocytes # (Manual) 0.8 K/mm3 (1.2-5.4) L 03/18/17 05:45 Abs React Lymphs (Man) 0.0 K/mm3 03/18/17 05:45 Monocytes # (Manual) 0.8 K/mm3 (0.0-0.8) 03/18/17 05:45 Eosinophils # (Manual) 0.0 K/mm3 (0.0-0.4) 03/18/17 05:45 Basophils # (Manual) 0.0 K/mm3 (0.0-0.1) 03/18/17 05:45 Metamyelocytes # 0.0 K/mm3 03/18/17 05:45 Myelocytes # 0.0 K/mm3 03/18/17 05:45 Promyelocytes # 0.0 K/mm3 03/18/17 05:45 Blast Cells # 0.0 K/mm3 03/18/17 05:45 WBC Morphology Not Reportable 03/18/17 05:45 Hypersegmented Neuts Not Reportable 03/18/17 05:45 Hyposegmented Neuts Not Reportable 03/18/17 05:45 Hypogranular Neuts Not Reportable 03/18/17 05:45 Smudge Cells Not Reportable 03/18/17 05:45 Toxic Granulation Not Reportable 03/18/17 05:45 Toxic Vacuolation Not Reportable 03/18/17 05:45 Dohle Bodies Not Reportable 03/18/17 05:45 Pelger-Huet Anomaly Not Reportable 03/18/17 05:45 Kanika Rods Not Reportable 03/18/17 05:45 Platelet Estimate Not Reportable 03/18/17 05:45 Clumped Platelets Not Reportable 03/18/17 05:45 Plt Clumps, EDTA Not Reportable 03/18/17 05:45 Large Platelets Not Reportable 03/18/17 05:45 Giant Platelets Not Reportable 03/18/17 05:45 Platelet Satelliting Not Reportable 03/18/17 05:45 Plt Morphology Comment Not Reportable 03/18/17 05:45 RBC Morphology Not Reportable 03/18/17 05:45 Dimorphic RBCs Not Reportable 03/18/17 05:45 Polychromasia Not Reportable 03/18/17 05:45 Hypochromasia Not Reportable 03/18/17 05:45 Poikilocytosis Not Reportable 03/18/17 05:45 Anisocytosis 1+ 03/18/17 05:45 Microcytosis Not Reportable 03/18/17 05:45 Macrocytosis Not Reportable 03/18/17 05:45 Spherocytes Not Reportable 03/18/17 05:45 Pappenheimer Bodies Not Reportable 03/18/17 05:45 Sickle Cells Not Reportable 03/18/17 05:45 Target Cells Not Reportable 03/18/17 05:45 Tear Drop Cells Not Reportable 03/18/17 05:45 Ovalocytes Not Reportable 03/18/17 05:45 Helmet Cells Not Reportable 03/18/17 05:45 [place] Bodies Not Reportable 03/18/17 05:45 [place] Rings Not Reportable 03/18/17 05:45 [place] Cells Not Reportable 03/18/17 05:45 Bite Cells Not Reportable 03/18/17 05:45 Crenated Cell Not Reportable 03/18/17 05:45 Elliptocytes Not Reportable 03/18/17 05:45 Acanthocytes (Spur) Not Reportable 03/18/17 05:45 Rouleaux Not Reportable 03/18/17 05:45 Hemoglobin C Crystals Not Reportable 03/18/17 05:45 Schistocytes Not Reportable 03/18/17 05:45 Malaria parasites Not Reportable 03/18/17 05:45 [place] Bodies Not Reportable 03/18/17 05:45 Hem Pathologist Commnt No 03/18/17 05:45 PT 16.2 Sec. (12.2-14.9) H 03/19/17 04:19 INR 1.31 (0.87-1.13) H 03/19/17 04:19 D-Dimer 775.3 ng/mlDDU (0-234) H 03/16/17 19:31 Sodium 133 mmol/L (137-145) L 03/19/17 04:19 Potassium 3.9 mmol/L (3.6-5.0) 03/19/17 04:19 Chloride 98.7 mmol/L (98-107) 03/19/17 04:19 Carbon Dioxide 21 mmol/L (22-30) L 03/19/17 04:19 Anion Gap 17 mmol/L 03/19/17 04:19 BUN 11 mg/dL (9-20) 03/19/17 04:19 Creatinine 1.1 mg/dL (0.8-1.5) 03/19/17 04:19 Estimated GFR > 60 ml/min 03/19/17 04:19 BUN/Creatinine Ratio 10.00 % 03/19/17 04:19 Glucose 96 mg/dL (75-100) 03/19/17 04:19 POC Glucose 127 (70-105) H 03/18/17 15:36 Calcium 8.4 mg/dL (8.4-10.2) 03/19/17 04:19 Magnesium 1.50 mg/dL (1.7-2.3) L 03/16/17 20:45 Total Creatine Kinase 32 units/L (55-170) L 03/17/17 10:20 CK-MB (CK-2) 1.4 ng/mL (0.0-4.0) 03/17/17 10:20 CK-MB (CK-2) Rel Index 4.3 (0-4) H 03/17/17 10:20 Troponin T 0.010 ng/mL (0.00-0.029) 03/17/17 10:20 NT-Pro-B Natriuret Pep 2974 pg/mL (0-450) H 03/16/17 18:31
[2017-03-19] MEDS: CORDARONE PO SCH (10:27)
[2017-03-19] MEDS: COREG PO SCH ×2 (10:27→22:00)
[2017-03-19] MEDS: ASPIRIN PO SCH (10:27)
[2017-03-19] MEDS: ALDACTONE PO SCH (10:31)
[2017-03-19] MEDS: DELTASONE PO SCH (10:31)
[2017-03-19] MEDS: MAG-OX PO SCH (10:31)
[2017-03-19] MEDS: FEOSOL PO SCH ×2 (10:32→22:00)
[2017-03-19] MEDS: IMDUR PO SCH (10:32)
[2017-03-19] MEDS: DEMADEX PO SCH (11:13)
[2017-03-19] MEDS: DUONEB 0.5 MG-3 MG/3 ML SOLN IH SCH ×2 (15:35→20:14)
--- NOTE | 2017-03-19 16:43 | Progress Note ---
Assessment and Plan This is 45 -year-old white male with a history of hypertension, diabetes, gout, BRITTON on CPAP( compliant), COPD, CHF comes to the emergency room complaining of shortness of breath. Also complaining of squeezing sensation in his chest in the epigastric area , unable to say how long it lasts for, intensity 5/10, no radiation any cannot identify exacerbating or relieving factors. Also complaining of headache Patient denies abdominal pain, hematochezia, dysuria, frequency, focal weakness , dysarthria, fever chills, polydipsia polyuria, hot or cold intolerance, easy bruisability, or rash or bleeding from mucosal membrane, rhinorrhea, epistaxis, earache, tinnitus, blurry vision, eye discharge, anxiety, depression. Other review of systems negative.Patient has heavy history of smoking 3 to 2 packs a day for 32 years. Stopped smoking 1 year ago. Denies alcohol or drug abuse. On V/Q was noted to have high probability scan for Pulmonary embolism, we have been consulted to assist with his pulmonary care Patient resting on room air. O2 saturation 98%. No complaint of chest pain or shortness of breath. - Patient Problems (1) Pulmonary embolism Current Visit: Yes Status: Acute Qualifiers: Pulmonary embolism type: P Chronicity: C Acute cor pulmonale presence: A Plan to address problem: Continue S/C Lovenox and Coumadin. (2) Acute exacerbation of chronic obstructive pulmonary disease (COPD) Onset Date: ~03/06/17 Current Visit: No Status: Acute (3) Acute on chronic renal failure Onset Date: ~03/06/17 Current Visit: No Status: Acute Qualifiers: Acute renal failure type: unspecified Chronic kidney disease stage: unspecified stage Qualified Code(s): N17.9 - Acute kidney failure, unspecified ; N18.9 - Chronic kidney disease, unspecified Plan to address problem: Continue Brovanna/Bdesonide aerosol treatments q 12 hours. Recommend 2 litres O2 prn for shortness of breath. (4) Diabetes Current Visit: No Status: Acute Qualifiers: Diabetes mellitus type: type 2 Diabetes mellitus complication status: with circulatory complication Diabetes mellitus complication detail: D Diabetic retinopathy severity: D Proliferative retinopathy type: P Diabetes mellitus macular edema: D Diabetes mellitus senior living insulin use: D Laterality: L Chronic kidney disease stage: C Plan to address problem: Management as per primary care. (5) Sleep apnea, obstructive Current Visit: No Status: Acute Plan to address problem: CPAP as he is using at home. (6) HTN (hypertension) Current Visit: No Status: Chronic Qualifiers: Hypertension type: essential hypertension Qualified Code(s): I10 - Essential (primary) hypertension Plan to address problem: Management as per primary care. (7) Morbid obesity due to excess calories Current Visit: No Status: Chronic Plan to address problem: Consult carbonator for weight reduction diet. Subjective Date of service: 03/19/17 Principal diagnosis: Cardiomyopathy Interval history: This is 45 -year-old white male with a history of hypertension, diabetes, gout, BRIT[place] on CPAP( compliant), COPD, CHF comes to the emergency room complaining of shortness of breath. Also complaining of squeezing sensation in his chest in the epigastric area , unable to say how long it lasts for, intensity 5/10, no radiation any cannot identify exacerbating or relieving factors. Also complaining of headache Patient denies abdominal pain, hematochezia, dysuria, frequency, focal weakness , dysarthria, fever chills, polydipsia polyuria, hot or cold intolerance, easy bruisability, or rash or bleeding from mucosal membrane, rhinorrhea, epistaxis, earache, tinnitus, blurry vision, eye discharge, anxiety, depression. Other review of systems negative.Patient has heavy history of smoking 3 to 2 packs a day for 32 years. Stopped smoking 1 year ago. Denies alcohol or drug abuse. On V/Q was noted to have high probability scan for Pulmonary embolism, we have been consulted to assist with his pulmonary care Patient resting on room air. O2 saturation 98%. No complaint of chest pain or shortness of breath. Objective Vital Signs - 12hr 03/19/17 03/19/17 03/19/17 05:00 08:40 10:00 Temperature 97.8 F 98.6 F Pulse Rate Pulse Rate [ 52 L Left Radial] Pulse Rate [ 79 Right Radial] Respiratory 19 20 Rate Blood Pressure Blood Pressure 133/74 143/71 [Right Arm] O2 Sat by Pulse 99 95 100 Oximetry 03/19/17 03/19/17 03/19/17 10:27 10:31 10:32 Temperature Pulse Rate 88 88 88 Pulse Rate [ Left Radial] Pulse Rate [ Right Radial] Respiratory Rate Blood Pressure 143/71 143/71 143/71 Blood Pressure [Right Arm] O2 Sat by Pulse Oximetry 03/19/17 12:43 Temperature 99.2 F Pulse Rate Pulse Rate [ 65 Left Radial] Pulse Rate [ Right Radial] Respiratory 20 Rate Blood Pressure Blood Pressure 108/76 [Right Arm] O2 Sat by Pulse 98 Oximetry Constitutional: no acute distress, other (heavily tatooed, extreme obesity) Eyes: non-icteric ENT: oropharynx moist Neck: supple, no lymphadenopathy, no JVD Effort: normal, mildly labored Ascultation: Bilateral: diminished breath sounds (at the bases) Cardiovascular: regular rate and rhythm, other (no murmurs, no gallops. Distant secondary to patient's habitus) Gastrointestinal: normoactive bowel sounds, soft, non-tender, non-distended Integumentary: normal Extremities: no cyanosis, no edema Neurologic: normal mental status, non-focal exam, pupils equal and round, motor strength normal and Psychiatric: mood appropriate, affect normal CBC and BMP: 03/19/17 04:19 03/19/17 04:19 ABG, PT/INR, D-dimer: PT/INR, D-dimer PT 16.2 Sec. (12.2-14.9) H 03/19/17 04:19 INR 1.31 (0.87-1.13) H 03/19/17 04:19 D-Dimer 775.3 ng/mlDDU (0-234) H 03/16/17 19:31 Abnormal lab findings: Abnormal Labs 03/17/17 03/17/17 03/17/17 03:39 10:20 15:35 WBC Hgb Hct RDW Plt Count Seg Neuts % (Manual) Lymphocytes % (Manual) Seg Neutrophils # Man Lymphocytes # (Manual) PT INR Sodium Chloride Carbon Dioxide POC Glucose 68 L Total Creatine Kinase 39 L 32 L CK-MB (CK-2) Rel Index 4.3 H 03/18/17 03/18/17 03/18/17 05:45 05:45 08:53 WBC 11.4 H Hgb Hct RDW 18.9 H Plt Count 126 L Seg Neuts % (Manual) 81.0 H Lymphocytes % (Manual) 7.0 L Seg Neutrophils # Man 9.2 H Lymphocytes # (Manual) 0.8 L PT INR Sodium 134 L Chloride 96.6 L Carbon Dioxide POC Glucose 118 H Total Creatine Kinase CK-MB (CK-2) Rel Index 03/18/17 03/18/17 03/19/17 11:40 15:36 04:19 WBC 12.8 H Hgb 11.6 L Hct 35.4 L RDW 17.9 H Plt Count 116 L Seg Neuts % (Manual) Lymphocytes % (Manual) Seg Neutrophils # Man Lymphocytes # (Manual) PT INR Sodium Chloride Carbon Dioxide POC Glucose 126 H 127 H Total Creatine Kinase CK-MB (CK-2) Rel Index 03/19/17 03/19/17 04:19 04:19 WBC Hgb Hct RDW Plt Count Seg Neuts % (Manual) Lymphocytes % (Manual) Seg Neutrophils # Man Lymphocytes # (Manual) PT 16.2 H INR 1.31 H Sodium 133 L Chloride Carbon Dioxide 21 L POC Glucose Total Creatine Kinase CK-MB (CK-2) Rel Index Chest x-ray: report reviewed (Cardiomegaly, No obvious infiltrates. Official report pending.), image reviewed Additional Studies: V/Q scan reported high probability for pulmonary emboli.
[2017-03-19] MEDS: COUMADIN PO SCH (17:33)
[2017-03-19] MEDS: BROVANA NEBU IH SCH (20:14)
[2017-03-19] MEDS: PULMICORT IH SCH (20:14)
[2017-03-19] MEDS ORDERED: LEVEMIR SUB-Q SCH (22:00)
[2017-03-19] MEDS ORDERED: NON-FORMULARY (Insulin Glargine,Hum.Rec.Anlog [Lantus Solostar] 20 UNITS) SQ SCH (22:00)
[2017-03-20] MEDS: LOVENOX SUB-Q SCH ×2 (01:07)
[2017-03-20] MEDS: DUONEB 0.5 MG-3 MG/3 ML SOLN IH SCH ×3 (01:58→14:01)
[2017-03-20 05:27] LABS: Hematocrit 36.6 % (35.5-45.6); Hemoglobin 12.3 gm/dl (11.8-15.2); Mean Corpuscular HGB Conc 34 % (32-34); Mean Corpuscular Hemoglobin 29 pg (28-32); Mean Corpuscular Volume 87 fl (84-94); Platelet Count 117 K/mm3 (140-440); Red Blood Count 4.19 M/mm3 (3.65-5.03); Red Cell Distribution Width 18.1 % (13.2-15.2); White Blood Count 13.6 K/mm3 (4.5-11.0)
[2017-03-20 05:31] LABS: INR 1.24 (0.87-1.13)
[2017-03-20 05:45] LABS: BUN/Creatinine Ratio 12.14; Calcium 8.7 mg/dL (8.4-10.2); Chloride 97.2 mmol/L (98-107); Potassium 4.1 mmol/L (3.6-5.0)
[2017-03-20] MEDS: PULMICORT IH SCH (07:36)
[2017-03-20] MEDS: BROVANA NEBU IH SCH (07:36)
--- NOTE | 2017-03-20 08:14 | XRay Report ---
AP CHEST : 03/16/17 16:57:00 CLINICAL: Chest pain. COMPARISON:03/06/17 FINDINGS: Stable cardiomegaly with pacer leads in heart. Redistribution pulmonary blood flow to the upper lobes. The lungs are normally expanded and clear. The bones and soft tissues are unremarkable. IMPRESSION: Cardiomegaly and pulmonary venous hypertension. No pulmonary edema.
[2017-03-20] MEDS: ALDACTONE PO SCH (10:00)
[2017-03-20] MEDS: FEOSOL PO SCH (10:00)
[2017-03-20] MEDS: IMDUR PO SCH (10:00)
[2017-03-20] MEDS: COREG PO SCH (10:00)
[2017-03-20] MEDS: MAG-OX PO SCH (10:01)
[2017-03-20] MEDS: CORDARONE PO SCH (10:02)
[2017-03-20] MEDS: DEMADEX PO SCH (10:07)
[2017-03-20] MEDS: ASPIRIN PO SCH (10:08)
[2017-03-20] MEDS: DELTASONE PO SCH (10:09)
--- NOTE | 2017-03-20 10:11 | Discharge Summary ---
Providers - Providers Date of Admission: 03/17/17 01:35 Date of discharge: 03/20/17 Attending physician: LIT JAQUEZ MD 03/18/17 10:22 Consult to Physician [CONS] Routine Consulting Provider: FLASH LOUIS Reason For Exam: Pulmonary embolism Place consult to:: flash louis Notified:: flash louis Primary care physician: INVESTMENT ANALYST Hospitalization Reason for admission: Acute on chronic respiratory failure, PE Condition: Stable Pertinent studies: V/Q Scan high probability PE Hospital course: 45 -year-old man with a history of hypertension, diabetes, gout, BIRTTON, COPD, CHF comes to the emergency room complaining of shortness of breath. Also complaining of squeezing sensation in his chest in the epigastric area , unable to say how long it lasts for, intensity 5/10, no radiation any cannot identify exacerbating or relieving factors. In the emergency department VQ scan was done which showed high probability PE patient was treated with an Lovenox and Coumadin was no increase in his INR. I changed his Lovenox and Coumadin to eliquis and discharged home. Patient is stable at the time of discharge. He was saturating well. Patient is using CPAP at night. Patient is advised to follow-up with primary care physician for refill of his eliquis. Patient was given a prescription for 1 month supply. Disposition: DISCHARGED TO HOME OR SELFCARE Time spent for discharge: 31 minute - Discharge Diagnoses (1) COPD (chronic obstructive pulmonary disease) Status: Acute Qualifiers: COPD type: C Chronic bronchitis type: C Emphysema type: E (2) Chest pain Status: Acute Qualifiers: Chest pain type: other chest pain Ischemic chest pain type: I Qualified Code(s): R07.89 - Other chest pain; R07.8 - Other chest pain (3) Pulmonary embolism Status: Acute Qualifiers: Pulmonary embolism type: P Chronicity: C Acute cor pulmonale presence: A (4) Acute CHF (congestive heart failure) Status: Acute Qualifiers: Congestive heart failure type: systolic Qualified Code(s): I50.21 - Acute systolic (congestive) heart failure (5) Acute exacerbation of chronic obstructive pulmonary disease (COPD) Status: Acute Core Measure Documentation - Palliative Care Palliative Care/ Comfort Measures: Not Applicable - Core Measures Any of the following diagnoses?: DVT/PE - VTE Discharge Requirements Deep Vein Thrombosis/Pulmonary Embolism Present on Admission: Yes Has pt received <5 days of overlap therapy or INR<2.0: No Anticoagulant overlap therapy prescribed at discharge: No Contraindication No Overlap Therapy order at DC: Not Indicated Exam - Physical Exam Narrative exam: Not in cardiopulmonary distress. On CPAP. The patient is morbidly obese. Vital signs as documented. Head exam is unremarkable. No scleral icterus . Neck is without jugular venous distension, thyromegaly, or carotid bruits. Lungs are clear to auscultation. Cardiac exam reveals regular rate and Rhythm. First and second heart sounds normal. No murmurs, rubs or gallops. Abdominal exam reveals normal bowel sounds, no masses, no organomegaly and no aortic enlargement. Extremities are nonedematous and both femoral and pedal pulses are normal. 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 No focal weakness. - Constitutional Vitals: Temp Pulse Resp BP Pulse Ox 97.6 F 58 L 20 116/79 97 03/20/17 09:03 03/20/17 09:03 03/20/17 09:03 03/20/17 09:03 03/20/17 09:03 Plan Activity: no restrictions Weight Bearing Status: Full Weight Bearing Diet: low fat, low cholesterol, low salt, diabetic Follow up with: PRIMARY CARE, [Primary Care Provider] - 3-5 Days Forms: Warfarin Discharge Instruction Prescriptions: Apixaban [Eliquis] 10 mg PO BID #60 tab Prednisone [predniSONE 10 mg (6-Day Pack, 21 Tabs)] 10 mg PO .TAPER #1 tab.rachel
--- NOTE | 2017-03-20 12:30 | Progress Note ---
Assessment and Plan Acute pulmonary embolism initiated on eliquis therapy Dilated nonischemic cardiomyopathy, EF 10-15% normal coronaries by [facility] 09/2015 Chronic obstructive pulmonary disease Essential hypertension Type 2 diabetes mellitus Obstructive sleep apnea Presence of AICD ([employer]) Hx of VT/VF on amiodarone for suppression Thrombocytopenia Recommendations: Continue medical therapy for his nonischemic cardiomyopathy. F/U with [facility] within 1 week of discharge. Subjective Date of service: 03/20/17 Principal diagnosis: Cardiomyopathy Interval history: Currently on Cpap therapy. No distress noted. No cardiac events reported overnight. For planned discharge home today. Objective Vital Signs Temp Pulse Pulse Pulse Pulse Pulse Resp 03/20/17 09:03 97.6 F 58 L 20 03/20/17 07:34 69 03/20/17 06:00 97.9 F 61 22 03/20/17 04:00 65 03/20/17 00:20 98.2 F 79 20 03/19/17 20:41 98.6 F 48 L 20 03/19/17 20:25 80 03/19/17 20:16 85 03/19/17 16:47 98.2 F 69 22 03/19/17 12:43 99.2 F 65 20 Resp Resp BP Pulse Ox 03/20/17 09:03 116/79 97 03/20/17 07:34 20 98 03/20/17 06:00 124/77 98 03/20/17 04:00 03/20/17 00:20 118/73 98 03/19/17 20:41 143/91 97 03/19/17 20:25 20 03/19/17 20:16 20 98 03/19/17 16:47 111/63 93 03/19/17 12:43 108/76 98 - Physical Examination General: No Apparent Distress, Other (morbidly obese) Cardiac: Positive: Other (AV paced) Neuro: Positive: Grossly Intact Abdomen: Positive: Unremarkable, Soft, Active Bowel Sounds Extremities: Present: normal. Absent: edema - Labs and Meds Coagulation 03/20/17 Range/Units 04:18 PT 15.5 H (12.2-14.9) Sec. INR 1.24 H (0.87-1.13) CBC 03/20/17 Range/Units 04:18 WBC 13.6 H (4.5-11.0) K/mm3 RBC 4.19 (3.65-5.03) M/mm3 Hgb 12.3 (11.8-15.2) gm/dl Hct 36.6 (35.5-45.6) % Plt Count 117 L (140-440) K/mm3 Comprehensive Metabolic Panel 03/20/17 Range/Units 04:18 Sodium 137 (137-145) mmol/L Potassium 4.1 (3.6-5.0) mmol/L Chloride 97.2 L (98-107) mmol/L Carbon Dioxide 24 (22-30) mmol/L BUN 17 (9-20) mg/dL Creatinine 1.4 (0.8-1.5) mg/dL Glucose 160 H (75-100) mg/dL Calcium 8.7 (8.4-10.2) mg/dL
--- NOTE | 2017-03-20 13:15 | Admit Criteria Form ---
Admission Criteria Documentation: PULMONARY EMBOLISM Clinical Indications for Admission to Inpatient Care (Place 'X' for any and all applicable criteria): Admission is indicated by ANY ONE of the following 1,2,3,4,5 [ ]I. Onset of hypoxia [ ]II. Hemodynamic instability 5 [ ]III. Massive pulmonary embolism (eg, acute embolism causing sustained hypotension, pulselessness, or bradycardia)5 [ ]IV. Need for IV narcotics (eg, to treat dyspnea) [ ]V. Current use of home oxygen therapy [ ]. Active bleeding [ ]VII. Recent surgery [ ]VIII. Active peptic ulcer disease [ ]IX. Documented extensive thrombosis (eg, clot in vena cava or above iliofemoral bifurcation) [ ]X. Embolism while on anticoagulation [ ]XI. 6 [X]XII. Appropriate monitoring and therapy cannot be provided in home or outpatient setting. [ ]XIII. Systemic or catheter-directed thrombolysis 5,7 [ ]XIV. Catheter embolectomy and fragmentation 6 [ ]XV. Vena cava filter placement5 [ ]XVI. Severely diminished cardiopulmonary reserve (eg, cor pulmonale, pulmonary hypertension) [ ]XVII. Severe renal failure (eg, GFR less than 30 mL/min/1.73m2 (0.5 mL/sec/ 1.73m2)) [ ]XVIII.Right ventricular dysfunction (eg, by echocardiogram) 6,11 [ ]XIX. Positive cardiac biomarker (eg, troponin T or I > 0.1 ng/mL (mcg/L), highly sensitive troponin I assay greater than 0.014 ng/mL (mcg/L), BNP or NT proBNP > assay threshold)5,8,9 [ ]XX. Known clotting abn or def (eg, liver disease, antithrombin III, protein C, or protein S abnormality) [ ]XXI. History of heparin-induced thrombocytopenia [ ]XXII. Inpatient admission required rather than observation care (Also use Pulmonary Embolism: Observation Care guideline as appropriate) because of ANY ONE of the following: [ ] a) Significant autoimmune (thrombocytopenia) or coagulopathic reaction occurs in response to anticoagulation [ ] b) Respiratory symptoms (eg, tachypnea, dyspnea) that are severe or persistent [ ] c) Other condition, treatment, or monitoring requiring inpatient admission Extended stay beyond goal length of stay may be needed for 3,28 [ ]a) Hemorrhage or recent surgery [ ]b) Recurrent thromboembolism [ ]c) Persistent hypoxemia [ ]d) Heparin-induced thrombocytopenia The original [facility] [employer] content created by [facility] [employer] has been revised. The portions of the content which have been revised are identified through the use of italic text or in bold, and [facility] has neither reviewed nor approved the modified material. All other unmodified content is copyright [facility] [employer]. Please see references footnoted in the original [facility] [employer] edition 2016 Admission Criteria Met: Yes
[2017-03-20 13:16] VITALS: BP 128/79
--- NOTE | 2017-03-20 14:05 | Progress Note ---
Assessment and Plan This is 45 -year-old white male with a history of hypertension, diabetes, gout, BRITTON on CPAP( compliant), COPD, CHF comes to the emergency room complaining of shortness of breath. Also complaining of squeezing sensation in his chest in the epigastric area , unable to say how long it lasts for, intensity 5/10, no radiation any cannot identify exacerbating or relieving factors. Also complaining of headache Patient denies abdominal pain, hematochezia, dysuria, frequency, focal weakness , dysarthria, fever chills, polydipsia polyuria, hot or cold intolerance, easy bruisability, or rash or bleeding from mucosal membrane, rhinorrhea, epistaxis, earache, tinnitus, blurry vision, eye discharge, anxiety, depression. Other review of systems negative.Patient has heavy history of smoking 3 to 2 packs a day for 32 years. Stopped smoking 1 year ago. Denies alcohol or drug abuse. On V/Q was noted to have high probability scan for Pulmonary embolism, we have been consulted to assist with his pulmonary care Patient resting on room air. O2 saturation 95%. No complaint of chest pain or shortness of breath. - Patient Problems (1) Pulmonary embolism Current Visit: Yes Status: Acute Qualifiers: Pulmonary embolism type: P Chronicity: C Acute cor pulmonale presence: A Plan to address problem: Continue S/C Lovenox Sarted on Eliquis. (2) Acute exacerbation of chronic obstructive pulmonary disease (COPD) Onset Date: ~03/06/17 Current Visit: No Status: Acute Plan to address problem: Brovanna/Budesonide aerosol treatments q 12 hours. Patient is also on deltasone. (3) Acute on chronic renal failure Onset Date: ~03/06/17 Current Visit: No Status: Acute Qualifiers: Acute renal failure type: unspecified Chronic kidney disease stage: unspecified stage Qualified Code(s): N17.9 - Acute kidney failure, unspecified ; N18.9 - Chronic kidney disease, unspecified Plan to address problem: Management as per nephrology. (4) Diabetes Current Visit: No Status: Acute Qualifiers: Diabetes mellitus type: type 2 Diabetes mellitus complication status: with circulatory complication Diabetes mellitus complication detail: D Diabetic retinopathy severity: D Proliferative retinopathy type: P Diabetes mellitus macular edema: D Diabetes mellitus long term care administrator insulin use: D Laterality: L Chronic kidney disease stage: C Plan to address problem: Management as per primary care. (5) Sleep apnea, obstructive Current Visit: No Status: Acute Plan to address problem: CPAP as he is using at home. (6) HTN (hypertension) Current Visit: No Status: Chronic Qualifiers: Hypertension type: essential hypertension Qualified Code(s): I10 - Essential (primary) hypertension Plan to address problem: Management as per primary care. (7) Morbid obesity due to excess calories Current Visit: No Status: Chronic Plan to address problem: Consult drywall foreman for weight reduction diet. Subjective Date of service: 03/20/17 Principal diagnosis: Cardiomyopathy Interval history: This is 45 -year-old white male with a history of hypertension, diabetes, gout, BRITTON on CPAP( compliant), COPD, CHF comes to the emergency room complaining of shortness of breath. Also complaining of squeezing sensation in his chest in the epigastric area , unable to say how long it lasts for, intensity 5/10, no radiation any cannot identify exacerbating or relieving factors. Also complaining of headache Patient denies abdominal pain, hematochezia, dysuria, frequency, focal weakness , dysarthria, fever chills, polydipsia polyuria, hot or cold intolerance, easy bruisability, or rash or bleeding from mucosal membrane, rhinorrhea, epistaxis, earache, tinnitus, blurry vision, eye discharge, anxiety, depression. Other review of systems negative.Patient has heavy history of smoking 3 to 2 packs a day for 32 years. Stopped smoking 1 year ago. Denies alcohol or drug abuse. On V/Q was noted to have high probability scan for Pulmonary embolism, we have been consulted to assist with his pulmonary care Patient resting on room air. O2 saturation 95%. No complaint of chest pain or shortness of breath. Objective Vital Signs - 12hr 03/20/17 03/20/17 03/20/17 04:00 06:00 07:34 Temperature 97.9 F Pulse Rate 65 Pulse Rate [ 69 Anterior Bilateral Throughout] Pulse Rate [ Left Radial] Pulse Rate [ 61 Right Radial] Respiratory 22 Rate Respiratory 20 Rate [Anterior Bilateral Throughout] Blood Pressure 124/77 [Right Arm] O2 Sat by Pulse 98 98 Oximetry 03/20/17 03/20/17 09:03 13:07 Temperature 97.6 F 97.6 F Pulse Rate Pulse Rate [ Anterior Bilateral Throughout] Pulse Rate [ 58 L 70 Left Radial] Pulse Rate [ Right Radial] Respiratory 20 20 Rate Respiratory Rate [Anterior Bilateral Throughout] Blood Pressure 116/79 128/79 [Right Arm] O2 Sat by Pulse 97 95 Oximetry Constitutional: no acute distress, other (heavily tatooed, extreme obesity) Eyes: non-icteric ENT: oropharynx moist Neck: supple, no lymphadenopathy, no JVD Effort: normal, mildly labored Ascultation: Bilateral: diminished breath sounds (at the bases) Cardiovascular: regular rate and rhythm, other (no murmurs, no gallops. Distant secondary to patient's habitus) Gastrointestinal: normoactive bowel sounds, soft, non-tender, non-distended Integumentary: normal Extremities: no cyanosis, no edema Neurologic: normal mental status, non-focal exam, pupils equal and round, motor strength normal and Psychiatric: mood appropriate, affect normal CBC and BMP: 03/20/17 04:18 03/20/17 04:18 ABG, PT/INR, D-dimer: PT/INR, D-dimer PT 15.5 Sec. (12.2-14.9) H 03/20/17 04:18 INR 1.24 (0.87-1.13) H 03/20/17 04:18 D-Dimer 775.3 ng/mlDDU (0-234) H 03/16/17 19:31 Abnormal lab findings: Abnormal Labs 03/17/17 03/17/17 03/17/17 03:39 10:20 15:35 WBC Hgb Hct RDW Plt Count Seg Neuts % (Manual) Lymphocytes % (Manual) Seg Neutrophils # Man Lymphocytes # (Manual) PT INR Sodium Chloride Carbon Dioxide Glucose POC Glucose 68 L Total Creatine Kinase 39 L 32 L CK-MB (CK-2) Rel Index 4.3 H 03/18/17 03/18/17 03/18/17 05:45 05:45 08:53 WBC 11.4 H Hgb Hct RDW 18.9 H Plt Count 126 L Seg Neuts % (Manual) 81.0 H Lymphocytes % (Manual) 7.0 L Seg Neutrophils # Man 9.2 H Lymphocytes # (Manual) 0.8 L PT INR Sodium 134 L Chloride 96.6 L Carbon Dioxide Glucose POC Glucose 118 H Total Creatine Kinase CK-MB (CK-2) Rel Index 03/18/17 03/18/17 03/19/17 11:40 15:36 04:19 WBC 12.8 H Hgb 11.6 L Hct 35.4 L RDW 17.9 H Plt Count 116 L Seg Neuts % (Manual) Lymphocytes % (Manual) Seg Neutrophils # Man Lymphocytes # (Manual) PT INR Sodium Chloride Carbon Dioxide Glucose POC Glucose 126 H 127 H Total Creatine Kinase CK-MB (CK-2) Rel Index 03/19/17 03/19/17 03/19/17 04:19 04:19 11:55 WBC Hgb Hct RDW Plt Count Seg Neuts % (Manual) Lymphocytes % (Manual) Seg Neutrophils # Man Lymphocytes # (Manual) PT 16.2 H INR 1.31 H Sodium 133 L Chloride Carbon Dioxide 21 L Glucose POC Glucose 128 H Total Creatine Kinase CK-MB (CK-2) Rel Index 03/19/17 03/19/17 03/20/17 16:18 21:41 04:18 WBC Hgb Hct RDW Plt Count Seg Neuts % (Manual) Lymphocytes % (Manual) Seg Neutrophils # Man Lymphocytes # (Manual) PT 15.5 H INR 1.24 H Sodium Chloride Carbon Dioxide Glucose POC Glucose 200 H 298 H Total Creatine Kinase CK-MB (CK-2) Rel Index 03/20/17 03/20/17 04:18 04:18 WBC 13.6 H Hgb Hct RDW 18.1 H Plt Count 117 L Seg Neuts % (Manual) Lymphocytes % (Manual) Seg Neutrophils # Man Lymphocytes # (Manual) PT INR Sodium Chloride 97.2 L Carbon Dioxide Glucose 160 H POC Glucose Total Creatine Kinase CK-MB (CK-2) Rel Index
[2017-03-20] MEDS ORDERED: COUMADIN PO SCH (17:00)
--- NOTE | 2017-03-21 15:15 | Vascular Lab Report ---
LOWER EXTREMITY VENOUS DUPLEX: REASON FOR EXAM: Deep venous thrombus. COMMENTS ON THE RIGHT: All veins visualized are freely compressible without evidence of internal echogenicity. Flow is spontaneous and phasic throughout. COMMENTS ON THE LEFT: There is a focal short segment superficial venous thrombus in a left distal thigh varicosity. The remaining veins visualized are freely compressible without evidence of internal echogenicity. Spontaneous and phasic flow is present proximally. IMPRESSION: No evidence of acute or chronic deep venous thrombosis in either lower extremity. There is a short segment left lower extremity superficial venous thrombus in a varicosity of the left thigh.
== END 2017-03-20 14:30 | disposition home or self-care (01) | DRG 176 ==
LOC: ED 16:57 → 4A 03-17 01:35
PROVIDERS: ADMIT Internal Medicine; ATTEND Internal Medicine
DX: I26.99 Other pulmonary embolism without acute cor pulmonale (principal); N17.9 Acute kidney failure, unspecified; G47.33 Obstructive sleep apnea (adult) (pediatric); F41.9 Anxiety disorder, unspecified; F32.9 Major depressive disorder, single episode, unspecified; I13.0 Hypertensive heart and chronic kidney disease with heart failure and stage 1 through stage 4 chronic kidney disease, or unspecified chronic kidney disease; E66.01 Morbid (severe) obesity due to excess calories; Z68.43 Body mass index [BMI] 50.0-59.9, adult; E11.9 Type 2 diabetes mellitus without complications; M10.9 Gout, unspecified; I50.9 Heart failure, unspecified; J44.1 Chronic obstructive pulmonary disease with (acute) exacerbation; M19.90 Unspecified osteoarthritis, unspecified site; I48.91 Unspecified atrial fibrillation; G25.81 Restless legs syndrome; I25.10 Atherosclerotic heart disease of native coronary artery without angina pectoris; J81.1 Chronic pulmonary edema; I42.0 Dilated cardiomyopathy; N18.9 Chronic kidney disease, unspecified; D69.6 Thrombocytopenia, unspecified; Z96.649 Presence of unspecified artificial hip joint; Z86.718 Personal history of other venous thrombosis and embolism; Z86.711 Personal history of pulmonary embolism; Z90.49 Acquired absence of other specified parts of digestive tract; Z95.810 Presence of automatic (implantable) cardiac defibrillator; Z82.49 Family history of ischemic heart disease and other diseases of the circulatory system; Z83.3 Family history of diabetes mellitus; Z91.018 Allergy to other foods
CPT/HCPCS: 36415; 70450; 71010; 72131; 78582; 80048; 82550; 82553; 82962; 83735; 83880; 84484; 85007; 85025; 85027; 85379; 85610; 93005; 93010; 93970; 94640; 94660; 96372; 96374; 96375; A9540; A9558; J1200; J1650; J1818; J1885; J2765; J3475; J7512

== ENCOUNTER 2017-06-07 15:52 | Inpatient (IN) | payer MEDICAID ==
[2017-06-07 16:46] LABS: Basophils % (Auto) 0.9 % (0.0-1.8); Eosinophils % (Auto) 1.9 % (0.0-4.3); Hematocrit 36.5 % (35.5-45.6); Mean Corpuscular HGB Conc 33 % (32-34); Mean Corpuscular Hemoglobin 31 pg (28-32); Mean Corpuscular Volume 95 fl (84-94); Platelet Count 241 K/mm3 (140-440); Red Blood Count 3.83 M/mm3 (3.65-5.03); White Blood Count 11.2 K/mm3 (4.5-11.0)
[2017-06-07 17:06] LABS: Anion Gap 17 mmol/L; BUN/Creatinine Ratio 10.83; Blood Urea Nitrogen 13 mg/dL (9-20); Calcium 9.4 mg/dL (8.4-10.2); Carbon Dioxide 30 mmol/L (22-30); Chloride 96.8 mmol/L (98-107); Glucose 137 mg/dL (75-100); Potassium 3.1 mmol/L (3.6-5.0); Sodium 141 mmol/L (137-145)
[2017-06-07 17:48] LABS: Bilirubin,Urine NEG (Negative); Blood,Urine NEG (Negative); Ketones,Urine NEG (Negative); Leukocyte Esterase,Urine NEG (Negative); Nitrite,Urine NEG (Negative); Protein,Urine <15 mg/dL mg/dL (Negative); Urobilinogen,Urine < 2.0 mg/dL (<2.0)
[2017-06-07] MEDS ORDERED: PROVENTIL IH ONE (21:20)
--- NOTE | 2017-06-07 21:28 | Emergency Department Report ---
ED General Adult HPI - General Chief complaint: Dyspnea/Respdistress Stated complaint: BACK PAIN/DIZZY/SOB Time Seen by Provider: 06/07/17 21:26 Source: patient, RN notes reviewed, old records reviewed Mode of arrival: Ambulatory Limitations: No Limitations - History of Present Illness Initial comments: This is a 46-year-old male. I have evaluated him in the past. Past medical history includes obesity, non-ischemic cardiac myopathy, ICD, congestive heart failure, ejection fraction of 10-15%, ventricular tachycardia, hypertension, obesity, obstructive sleep apnea The patient is sent to ER by his private fashion consultant, Dr. Salazar. The patient complains of unintentional weight gain, bilateral lower extremity swelling, and right flank pain. He denies dietary indiscretions. He reports taking his metolazone. Patient was also recently admitted to the hospital in February, had a high probability nuclear medicine study for pulmonary embolus, and is currently taking systemic anticoagulation, and the form of eliquis. The patient also complains of shortness of breath. Patient reports that he has been compliant with his systemic anticoagulation. He denies dietary indiscretions. He also complains of right flank pain. The pain is achy and sharp. It increases with palpation and range of motion. It decreases with rest. His fashion consultant recommended a noncontrast CT scan to exclude perinephric hematoma and retroperitoneal hematoma. There are no irritative/obstructive urinary symptoms. -: Gradual, days(s) Location: back, left, right, lower extremity Quality: aching Consistency: intermittent Improves with: rest Worsens with: movement Associated Symptoms: cough, loss of appetite, shortness of breath, weakness. denies: diaphoresis, fever/chills - Related Data Home Medications Medication Instructions Recorded Confirmed Last Taken Ferrous Sulfate [Feosol 325 MG tab] 325 mg PO BID 05/19/15 03/16/17 03/06/17 Magnesium Oxide 400 mg PO DAILY 08/31/16 03/16/17 03/06/17 Fluticasone/Salmeterol [Advair 1 each IH PRN PRN 03/06/17 03/16/17 Unknown Diskus 500-50 mcg] Ipratropium/Albuter (Nf) 2 puff IH BID 03/06/17 03/16/17 Unknown [Combivent Inhaler] Amiodarone [Cordarone 200 MG TAB] 200 mg PO QDAY 03/16/17 03/16/17 Unknown Spironolactone [Aldactone] 25 mg PO QDAY 03/16/17 03/16/17 Unknown Torsemide [Demadex] 100 mg PO QDAY 03/16/17 03/16/17 Unknown glipiZIDE [Glucotrol] 10 mg PO QDAY 03/16/17 03/16/17 Unknown Previous Rx's Medication Instructions Recorded Last Taken Type Aspirin [Aspirin TAB] 325 mg PO QDAY #30 tablet 12/14/16 03/06/17 Rx Carvedilol [Coreg] 25 mg PO BID #60 tablet 12/14/16 03/06/17 Rx ISOSORBIDE MONOnitrate [Imdur ER] 30 mg PO DAILY #30 tablet 12/14/16 02/11/17 Rx HYDROcodone/APAP 5-325 [[place] 1 each PO Q4H PRN #30 tablet 02/06/17 03/05/17 Rx 5-325 mg TAB] Insulin Glargine,Hum.rec.anlog 20 units SQ QHS #5 pen 02/06/17 02/11/17 Rx [Lantus Solostar] Apixaban [Eliquis] 10 mg PO BID #60 tab 03/20/17 Unknown Rx Prednisone [predniSONE 10 mg 10 mg PO .TAPER #1 tab.ds.pk 03/20/17 Unknown Rx (6-Day Pack, 21 Tabs)] Allergies Allergy/AdvReac Type Severity Reaction Status Date / Time cephalexin monohydrate Allergy Hives Verified 03/09/15 22:20 [From Keflex] lidocaine Allergy Hives Verified 03/09/15 22:20 mushrooms Allergy Swelling Uncoded 06/26/15 12:23 ED Review of Systems ROS: Stated complaint: BACK PAIN/DIZZY/SOB Other details as noted in HPI Constitutional: malaise. denies: fever Eyes: denies: vision change ENT: denies: epistaxis Respiratory: cough, shortness of breath Cardiovascular: dyspnea on exertion, edema Gastrointestinal: denies: abdominal pain Genitourinary: denies: urgency Musculoskeletal: back pain Skin: denies: lesions Neurological: denies: weakness Psychiatric: denies: depression ED Past Medical Hx - Past Medical History Previous Medical History?: Yes Hx Hypertension: Yes Hx Heart Attack/AMI: No Hx Congestive Heart Failure: Yes Hx Diabetes: Yes Hx Deep Vein Thrombosis: Yes Hx Pulmonary Embolism: Yes Hx Liver Disease: No Hx Renal Disease: Yes (insufficiency) Hx Sickle Cell Disease: No Hx Arthritis: Yes (Knees) Hx Asthma: Yes Hx COPD: Yes Hx Tuberculosis: No Hx HIV: No Additional medical history: copd; sleep apnea - Surgical History Hx Coronary Stent: No Hx Pacemaker: Yes Hx Internal Defibrillator: Yes Hx Cholecystectomy: Yes Additional Surgical History: defibrillator - Social History Smoking Status: Former Smoker Substance Use Type: None - Medications Home Medications: Home Medications Medication Instructions Recorded Confirmed Last Taken Type Ferrous Sulfate [Feosol 325 MG tab] 325 mg PO BID 05/19/15 03/16/17 03/06/17 History Magnesium Oxide 400 mg PO DAILY 08/31/16 03/16/17 03/06/17 History Aspirin [Aspirin TAB] 325 mg PO QDAY #30 tablet 12/14/16 03/16/17 03/06/17 Rx Carvedilol [Coreg] 25 mg PO BID #60 tablet 12/14/16 03/16/17 03/06/17 Rx ISOSORBIDE MONOnitrate [Imdur ER] 30 mg PO DAILY #30 tablet 12/14/16 03/16/17 Rx HYDROcodone/APAP 5-325 [[place] 1 each PO Q4H PRN #30 tablet 02/06/17 03/16/17 Rx 5-325 mg TAB] Insulin Glargine,Hum.rec.anlog 20 units SQ QHS #5 pen 02/06/17 03/16/17 Rx [Lantus Solostar] Fluticasone/Salmeterol [Advair 1 each IH PRN PRN 03/06/17 03/16/17 Unknown History Diskus 500-50 mcg] Ipratropium/Albuter (Nf) 2 puff IH BID 03/06/17 03/16/17 Unknown History [Combivent Inhaler] Amiodarone [Cordarone 200 MG TAB] 200 mg PO QDAY 03/16/17 03/16/17 Unknown History Spironolactone [Aldactone] 25 mg PO QDAY 03/16/17 03/16/17 Unknown History Torsemide [Demadex] 100 mg PO QDAY 03/16/17 03/16/17 Unknown History glipiZIDE [Glucotrol] 10 mg PO QDAY 03/16/17 03/16/17 Unknown History Apixaban [Eliquis] 10 mg PO BID #60 tab 03/20/17 Unknown Rx Prednisone [predniSONE 10 mg 10 mg PO .TAPER #1 tab.ds.pk 03/20/17 Unknown Rx (6-Day Pack, 21 Tabs)] ED Physical Exam - General Limitations: No Limitations General appearance: alert, obese - Head Head exam: Present: atraumatic, normocephalic - Eye Eye exam: Present: normal appearance - ENT ENT exam: Present: normal exam, mucous membranes moist, normal external ear exam - Neck Neck exam: Present: normal inspection, full ROM. Absent: tenderness, meningismus - Respiratory Respiratory exam: Present: wheezes, rhonchi. Absent: respiratory distress - Cardiovascular Cardiovascular Exam: Present: regular rate, normal rhythm, normal heart sounds. Absent: bradycardia, tachycardia, irregular rhythm, systolic murmur, diastolic murmur, rubs, gallop - GI/Abdominal GI/Abdominal exam: Present: soft, normal bowel sounds. Absent: distended, tenderness, guarding, rebound, rigid, pulsatile mass - Rectal Rectal exam: Present: deferred - Extremities Exam Extremities exam: Present: normal inspection, full ROM, normal capillary refill , pedal edema. Absent: calf tenderness - Back Exam Back exam: Present: normal inspection, CVA tenderness (R). Absent: paraspinal tenderness, vertebral tenderness - Neurological Exam Neurological exam: Present: alert, oriented X3, normal gait, other (Extraocular movements intact. Tongue midline. No facial droop. Facial sensation intact to light touch in the V1, V2, V3 distribution bilaterally. 5 and 5 strength in 4 extremities.. Sensation is intact to light touch in 4 extremities.). Absent : motor sensory deficit - Psychiatric Psychiatric exam: Present: normal affect, normal mood - Skin Skin exam: Present: warm, dry, intact, normal color. Absent: rash ED Course Vital Signs 06/07/17 06/07/17 06/07/17 16:15 20:56 21:30 Temperature 98.6 F Pulse Rate 72 80 69 Respiratory 18 34 H 24 Rate Blood Pressure 121/76 135/90 122/69 O2 Sat by Pulse 100 96 100 Oximetry 06/07/17 06/07/17 06/07/17 21:50 22:00 22:16 Temperature Pulse Rate 74 70 Respiratory 21 16 20 Rate Blood Pressure 136/70 148/83 O2 Sat by Pulse 100 98 100 Oximetry ED Medical Decision Making - Lab Data Result diagrams: 06/07/17 16:28 06/07/17 16:28 Vital Signs 06/07/17 06/07/17 06/07/17 16:15 20:56 21:30 Temperature 98.6 F Pulse Rate 72 80 69 Respiratory 18 34 H 24 Rate Blood Pressure 121/76 135/90 122/69 O2 Sat by Pulse 100 96 100 Oximetry 06/07/17 06/07/17 06/07/17 21:50 22:00 22:16 Temperature Pulse Rate 74 70 Respiratory 21 16 20 Rate Blood Pressure 136/70 148/83 O2 Sat by Pulse 100 98 100 Oximetry Lab Results 06/07/17 06/07/17 06/07/17 Range/Units 16:28 16:28 16:36 WBC 11.2 H (4.5-11.0) K/mm3 RBC 3.83 (3.65-5.03) M/mm3 Hgb 12.0 (11.8-15.2) gm/dl Hct 36.5 (35.5-45.6) % MCV 95 H (84-94) fl MCH 31 (28-32) pg MCHC 33 (32-34) % RDW 18.0 H (13.2-15.2) % Plt Count 241 (140-440) K/mm3 Lymph % (Auto) 20.0 (13.4-35.0) % Owen % (Auto) 9.7 H (0.0-7.3) % Eos % (Auto) 1.9 (0.0-4.3) % Baso % (Auto) 0.9 (0.0-1.8) % Lymph # 2.2 (1.2-5.4) K/mm3 Owen # 1.1 H (0.0-0.8) K/mm3 Eos # 0.2 (0.0-0.4) K/mm3 Baso # 0.1 (0.0-0.1) K/mm3 Seg Neutrophils % 67.5 (40.0-70.0) % Seg Neutrophils # 7.5 (1.8-7.7) K/mm3 PT (12.2-14.9) Sec. INR (0.87-1.13) APTT (24.2-36.6) Sec. Sodium 141 (137-145) mmol/L Potassium 3.1 L (3.6-5.0) mmol/L Chloride 96.8 L (98-107) mmol/L Carbon Dioxide 30 (22-30) mmol/L Anion Gap 17 mmol/L BUN 13 (9-20) mg/dL Creatinine 1.2 (0.8-1.5) mg/dL Estimated GFR > 60 ml/min BUN/Creatinine Ratio 10.83 % Glucose 137 H (75-100) mg/dL Calcium 9.4 (8.4-10.2) mg/dL Magnesium (1.7-2.3) mg/dL Total Creatine Kinase (55-170) units/L CK-MB (CK-2) (0.0-4.0) ng/mL CK-MB (CK-2) Rel Index (0-4) Troponin T < 0.010 (0.00-0.029) ng/mL NT-Pro-B Natriuret Pep (0-450) pg/mL Urine Color Colorless (Yellow) Urine Turbidity Clear (Clear) Urine pH 6.0 (5.0-7.0) Ur Specific [place] 1.003 (1.003-1.030) Urine Protein <15 mg/dl (Negative) mg/dL Urine Glucose (UA) Neg (Negative) mg/dL Urine Ketones Neg (Negative) mg/dL Urine Blood Neg (Negative) Urine Nitrite Neg (Negative) Urine Bilirubin Neg (Negative) Urine Urobilinogen < 2.0 (<2.0) mg/dL Ur Leukocyte Esterase Neg (Negative) Urine WBC (Auto) 0.0 (0.0-6.0) /HPF Urine RBC (Auto) 0.0 (0.0-6.0) /HPF 06/07/17 06/07/17 06/07/17 Range/Units 21:53 21:53 21:53 WBC (4.5-11.0) K/mm3 RBC (3.65-5.03) M/mm3 Hgb (11.8-15.2) gm/dl Hct (35.5-45.6) % MCV (84-94) fl MCH (28-32) pg MCHC (32-34) % RDW (13.2-15.2) % Plt Count (140-440) K/mm3 Lymph % (Auto) (13.4-35.0) % Owen % (Auto) (0.0-7.3) % Eos % (Auto) (0.0-4.3) % Baso % (Auto) (0.0-1.8) % Lymph # (1.2-5.4) K/mm3 Owen # (0.0-0.8) K/mm3 Eos # (0.0-0.4) K/mm3 Baso # (0.0-0.1) K/mm3 Seg Neutrophils % (40.0-70.0) % Seg Neutrophils # (1.8-7.7) K/mm3 PT 16.3 H (12.2-14.9) Sec. INR 1.24 H (0.87-1.13) APTT 32.3 (24.2-36.6) Sec. Sodium (137-145) mmol/L Potassium (3.6-5.0) mmol/L Chloride (98-107) mmol/L Carbon Dioxide (22-30) mmol/L Anion Gap mmol/L BUN (9-20) mg/dL Creatinine (0.8-1.5) mg/dL Estimated GFR ml/min BUN/Creatinine Ratio % Glucose (75-100) mg/dL Calcium (8.4-10.2) mg/dL Magnesium (1.7-2.3) mg/dL Total Creatine Kinase 140 (55-170) units/L CK-MB (CK-2) 1.8 (0.0-4.0) ng/mL CK-MB (CK-2) Rel Index 1.2 (0-4) Troponin T < 0.010 (0.00-0.029) ng/mL NT-Pro-B Natriuret Pep 2029 H (0-450) pg/mL Urine Color (Yellow) Urine Turbidity (Clear) Urine pH (5.0-7.0) Ur Specific [place] (1.003-1.030) Urine Protein (Negative) mg/dL Urine Glucose (UA) (Negative) mg/dL Urine Ketones (Negative) mg/dL Urine Blood (Negative) Urine Nitrite (Negative) Urine Bilirubin (Negative) Urine Urobilinogen (<2.0) mg/dL Ur Leukocyte Esterase (Negative) Urine WBC (Auto) (0.0-6.0) /HPF Urine RBC (Auto) (0.0-6.0) /HPF 06/07/17 Range/Units 21:53 WBC (4.5-11.0) K/mm3 RBC (3.65-5.03) M/mm3 Hgb (11.8-15.2) gm/dl Hct (35.5-45.6) % MCV (84-94) fl MCH (28-32) pg MCHC (32-34) % RDW (13.2-15.2) % Plt Count (140-440) K/mm3 Lymph % (Auto) (13.4-35.0) % Owen % (Auto) (0.0-7.3) % Eos % (Auto) (0.0-4.3) % Baso % (Auto) (0.0-1.8) % Lymph # (1.2-5.4) K/mm3 Owen # (0.0-0.8) K/mm3 Eos # (0.0-0.4) K/mm3 Baso # (0.0-0.1) K/mm3 Seg Neutrophils % (40.0-70.0) % Seg Neutrophils # (1.8-7.7) K/mm3 PT (12.2-14.9) Sec. INR (0.87-1.13) APTT (24.2-36.6) Sec. Sodium (137-145) mmol/L Potassium (3.6-5.0) mmol/L Chloride (98-107) mmol/L Carbon Dioxide (22-30) mmol/L Anion Gap mmol/L BUN (9-20) mg/dL Creatinine (0.8-1.5) mg/dL Estimated GFR ml/min BUN/Creatinine Ratio % Glucose (75-100) mg/dL Calcium (8.4-10.2) mg/dL Magnesium 1.70 (1.7-2.3) mg/dL Total Creatine Kinase (55-170) units/L CK-MB (CK-2) (0.0-4.0) ng/mL CK-MB (CK-2) Rel Index (0-4) Troponin T (0.00-0.029) ng/mL NT-Pro-B Natriuret Pep (0-450) pg/mL Urine Color (Yellow) Urine Turbidity (Clear) Urine pH (5.0-7.0) Ur Specific [place] (1.003-1.030) Urine Protein (Negative) mg/dL Urine Glucose (UA) (Negative) mg/dL Urine Ketones (Negative) mg/dL Urine Blood (Negative) Urine Nitrite (Negative) Urine Bilirubin (Negative) Urine Urobilinogen (<2.0) mg/dL Ur Leukocyte Esterase (Negative) Urine WBC (Auto) (0.0-6.0) /HPF Urine RBC (Auto) (0.0-6.0) /HPF - EKG Data -: EKG Interpreted by Ct - EKG Data When compared to previous EKG there are: no significant change 06/08/17 00:44 ventricular paced rhythm, good capture, left axis deviation, 79 bpm, not morphologically consistent with STEMI, appears unchanged from prior - Radiology Data X-ray of the chest demonstrates congestive heart failure, ICD device, pulmonary vascular congestion. Noncontrast CT scan of Lai pelvis demonstrates no fracture, no dislocation, no hematoma - Medical Decision Making Differential diagnosis: Congestive heart failure, pulmonary hypertension, COPD/ asthma exacerbation, retroperitoneal hematoma, perinephric hematoma, urinary tract infection Assessment and plan: 46-year-old male with shortness of breath, edema, unintentional weight gain, clinical picture consistent with mildly decompensated congestive heart failure. The patient is speaking in full sentences, and playing on a cellular phone at this time. Doubt pulmonary embolus given clinical presentation, patient has been compliant with his systemic anticoagulation, and a pulmonary embolus would not explain his lower extremity edema, or unintentional weight gain. Noncontrast CT scan demonstrates no significant disease, patient is given high- dose Lasix, a consult has been placed to his fashion consultant, but given that they sent the patient to the hospital, given that the patient appears relatively comfortable stable, I don't believe the patient requires emergent cardiology consultation at 12:45 in the morning. The case is presented to the Hospital physician, Dr. Webb, and she graciously accepts the patient to her service. Patient not wheezing at this time after albuterol, therefore I don't believe he requires systemic steroids. Critical care attestation.: If time is entered above; I have spent that time in minutes in the direct care of this critically ill patient, excluding procedure time. ED Disposition Clinical Impression: CHF exacerbation, Back pain Disposition: - OP ADMIT IP TO THIS HOSP Is pt being admited?: Yes Condition: Good Referrals: PRIMARY CARE, [Primary Care Provider] - 3-5 Days
[2017-06-07 22:20] LABS: INR 1.24 (0.87-1.13)
[2017-06-07 22:21] LABS: Partial Thromboplastin Time 32.3 Sec. (24.2-36.6)
[2017-06-07 22:33] LABS: Creatine Kinase MB 1.8 ng/mL (0.0-4.0)
[2017-06-07 22:34] LABS: Creatine Kinase 140 units/L (55-170)
[2017-06-07] MEDS ORDERED: DILAUDID IV ONE (22:34)
[2017-06-07] MEDS ORDERED: LASIX IV ONE (22:34)
[2017-06-07] MEDS ORDERED: K-DUR PO ONE (22:37)
--- NOTE | 2017-06-08 00:28 | Cat Scan Report ---
FINAL REPORT PROCEDURE: CT ABDOMEN PELVIS WO CON TECHNIQUE: Computerized axial tomography of the abdomen and pelvis was performed without intravenous contrast. This study is performed without intravascular contrast material and its sensitivity for abdominal and pelvic pathology, including neoplasms, inflammation, abscess, free fluid, thrombosis, arterial dissection and infarction, is reduced compared with a contrast enhanced study. HISTORY: right flank pain COMPARISON: No prior studies are available for comparison. FINDINGS: Visualized lower thorax: Slight atelectasis bilateral lower. Liver: Normal size and attenuation. Spleen: Normal size and attenuation. Gallbladder and biliary system: The gallbladder is absent. No dilatation the biliary ductal system. Pancreas: Normal. Adrenals: Normal. Kidneys: Kidneys have normal size. No hydronephrosis. No renal stones. There is a 1 centimeters cyst off of the posterior upper left renal cortex.. GI tract: The stomach is normal. A small hiatal hernia is noted. Small has a caliber without obstruction. No ileus or enteritis. The cecum appendix and colon are normal.. Lymph nodes and mesentery: Normal. Vasculature: Mild atherosclerosis of the aorta.. Bladder: Normal. Reproductive organs: Normal. Peritoneum: No free fluid. Musculoskeletal structures: There has been previous internal fixation of the posterior right acetabulum.. Other: There are bilateral fat containing inguinal hernias. A small fat containing umbilical hernia is noted.. IMPRESSION: There is no evidence of intestinal or urinary tract obstruction. No ileus or enteritis. The appendix is normal. Slight bilateral lower lung atelectasis. .
[2017-06-08] MEDS ORDERED: NORCO 5/325 PO PRN (03:47)
[2017-06-08] MEDS ORDERED: DULCOLAX PR PRN (03:49)
[2017-06-08] MEDS ORDERED: ZOFRAN IV PRN (03:49)
[2017-06-08] MEDS ORDERED: MILK OF MAGNESIA PO PRN (03:49)
[2017-06-08] MEDS ORDERED: TYLENOL PO PRN (03:49)
--- NOTE | 2017-06-08 03:52 | History and Physical Report ---
History of Present Illness Date of examination: 06/08/17 History of present illness: 46-year-old man with a history of hypertension, diabetes, gout, BRIT[place], COPD, CHF comes to the emergency room complaining of shortness of breath, PND and orthopnea and lower extremity edema. He saw his director of maintenance today sent him here to the emergency room for further evaluation. He states he gained 11 pounds in one week. Patient stated he is compliant with his medication, also complaining of left flank pain Review Of Systems: Constitutional: no fever, chills, weight loss Ears, eyes, nose, mouth and throat: no nasal congestion, no nasal discharge, no sinus pressure, blurry vision, diplopia Neck: No neck pain or rigidity. Cardiovascular: chest pain, palpitations Respiratory: No cough Gastrointestinal: abdominal pain, hematochezia Genitourinary : no dysuria, frequency , hematuria Musculoskeletal: no joint swelling or muscle ache Integumentary: no rash, no pruritis Neurological: no parathesias, focal weakness Endocrine: no cold or heat intolerance, no polyuria or polydipsia Hematologic/Lymphatic: no easy bruising, no easy bleeding, no gland swelling Allergic/Immunologic: no urticaria, no angioedema. PAST MEDICAL HISTORY:hypertension, diabetes, gout, BRITTON, COPD, CHF PAST SURGICAL HISTORY:AICD, hip replacement, gall bladder SOCIAL HISTORY: Denies alcohol, tobacco, drugs FAMILY HISTORY:cad, DM Medications and Allergies Allergies Allergy/AdvReac Type Severity Reaction Status Date / Time cephalexin monohydrate Allergy Hives Verified 03/09/15 22:20 [From Keflex] lidocaine Allergy Hives Verified 03/09/15 22:20 mushrooms Allergy Swelling Uncoded 06/26/15 12:23 Home Medications Medication Instructions Recorded Confirmed Last Taken Type Ferrous Sulfate [Feosol 325 MG tab] 325 mg PO BID 05/19/15 03/16/17 03/06/17 History Magnesium Oxide 400 mg PO DAILY 08/31/16 03/16/17 03/06/17 History Aspirin [Aspirin TAB] 325 mg PO QDAY #30 tablet 12/14/16 03/16/17 03/06/17 Rx Carvedilol [Coreg] 25 mg PO BID #60 tablet 12/14/16 03/16/17 03/06/17 Rx ISOSORBIDE MONOnitrate [Imdur ER] 30 mg PO DAILY #30 tablet 12/14/16 03/16/17 Rx HYDROcodone/APAP 5-325 [[place] 1 each PO Q4H PRN #30 tablet 02/06/17 03/16/17 Rx 5-325 mg TAB] Insulin Glargine,Hum.rec.anlog 20 units SQ QHS #5 pen 02/06/17 03/16/17 Rx [Lantus Solostar] Fluticasone/Salmeterol [Advair 1 each IH PRN PRN 03/06/17 03/16/17 Unknown History Diskus 500-50 mcg] Ipratropium/Albuter (Nf) 2 puff IH BID 03/06/17 03/16/17 Unknown History [Combivent Inhaler] Amiodarone [Cordarone 200 MG TAB] 200 mg PO QDAY 03/16/17 03/16/17 Unknown History Spironolactone [Aldactone] 25 mg PO QDAY 03/16/17 03/16/17 Unknown History Torsemide [Demadex] 100 mg PO QDAY 03/16/17 03/16/17 Unknown History glipiZIDE [Glucotrol] 10 mg PO QDAY 03/16/17 03/16/17 Unknown History Apixaban [Eliquis] 10 mg PO BID #60 tab 03/20/17 Unknown Rx Prednisone [predniSONE 10 mg 10 mg PO .TAPER #1 tab.ds.pk 03/20/17 Unknown Rx (6-Day Pack, 21 Tabs)] Active Meds: Active Medications Acetaminophen/Hydrocodone Bitart ([place] 5/325) 1 each PO Q4H PRN PRN Reason: Pain, Moderate (4-6) Amiodarone HCl (Cordarone) 200 mg PO QDAY ROBERT Apixaban (Eliquis) 10 mg PO BID ROBERT PRN Reason: Protocol Aspirin (Aspirin) 325 mg PO QDAY ROBERT Carvedilol (Coreg) 25 mg PO BID ROBERT Ferrous Sulfate (Feosol) 325 mg PO BID ROBERT Glipizide (Glucotrol) 10 mg PO QDAY [facility] Miscellaneous Medication (Insulin Glargine,Hum.Rec.Anlog [Lantus Solostar]) 20 units SQ QHS [facility] Exam - Physical Exam Narrative exam: Gen. appearance: Patient lying in bed, no apparent distress HEENT: Normocephalic, atraumatic, pupils equally round and reactive to light, extraocular movement intact, and no sclericterus,. No JVD or thyromegaly or nodule,neck supple, no carotid bruit ,mucous membranes moist, no exudate or erythema Heart: S1, S2, regular rate and rhythm Lungs: Crackles bilaterally, breathing comfortable Abdomen: Positive bowel sounds, nontender, nondistended, no organomegaly Extremity:+ edema, cyanosis, clubbing Skin: No rash, nodules, warm, dry Neuro: Oriented 3, cranial nerves II-12 intact, speech is fluent, motor and sensory intact - Constitutional Vitals: Temp Pulse Resp BP Pulse Ox 98.6 F 78 18 115/60 98 06/07/17 16:15 06/08/17 02:50 06/08/17 02:50 06/08/17 03:00 06/08/17 02:50 Results - Labs CBC & Chem 7: 06/07/17 16:28 06/07/17 16:28 Labs: Abnormal lab results 06/07/17 06/07/17 06/07/17 Range/Units 16:28 16:28 21:53 WBC 11.2 H (4.5-11.0) K/mm3 MCV 95 H (84-94) fl RDW 18.0 H (13.2-15.2) % [place] % (Auto) 9.7 H (0.0-7.3) % [place] # 1.1 H (0.0-0.8) K/mm3 PT 16.3 H (12.2-14.9) Sec. INR 1.24 H (0.87-1.13) Potassium 3.1 L (3.6-5.0) mmol/L Chloride 96.8 L (98-107) mmol/L Glucose 137 H (75-100) mg/dL NT-Pro-B Natriuret Pep (0-450) pg/mL 06/07/17 Range/Units 21:53 WBC (4.5-11.0) K/mm3 MCV (84-94) fl RDW (13.2-15.2) % [place] % (Auto) (0.0-7.3) % [place] # (0.0-0.8) K/mm3 PT (12.2-14.9) Sec. INR (0.87-1.13) Potassium (3.6-5.0) mmol/L Chloride (98-107) mmol/L Glucose (75-100) mg/dL NT-Pro-B Natriuret Pep 2028 H (0-450) pg/mL - Imaging and Cardiology EKG: image reviewed Chest x-ray: image reviewed Assessment and Plan Assessment Acute on chronic heart Failure, systolic dysfunction Flank pain nonspecific, CT negative COPD History of pulmonary emboli Hypertension Diabetes Depression Obstructive sleep apnea Morbid obesity Plan Admit to medicine Diuresed with IV Lasix, monitor I's and O's, daily weights Start beta brandon, BRITTA inhibitor, aspirin, recent echo was done Check cardiac enzymes, consult cardiology Check fingersticks and start insulin sliding scale Continue appropiate outpatient medications DVT prophylaxis initiated, ON ELIQUIS
[2017-06-08 04:48] LABS: Creatine Kinase MB 1.8 ng/mL (0.0-4.0)
[2017-06-08 04:51] LABS: Creatine Kinase 142 units/L (55-170)
[2017-06-08] MEDS ORDERED: LASIX IV SCH (06:00)
--- NOTE | 2017-06-08 07:18 | XRay Report ---
CHEST 2 VIEWS INDICATION: Shortness of breath. COMPARISON: 03/16/2017 FINDINGS: Frontal and lateral chest radiographs demonstrate stable cardiomediastinal silhouette/slight cardiomegaly and left tripolar AICD. No significant pleural effusions or CHF. Stable bones. CONCLUSION: Stable mild cardiomegaly and AICD, as described. Thank you for the opportunity to participate in this patient's care.
[2017-06-08] MEDS ORDERED: ELIQUIS PO SCH ×2 (10:00→12:38)
[2017-06-08] MEDS ORDERED: CORDARONE PO SCH (10:00)
[2017-06-08] MEDS ORDERED: ASPIRIN PO SCH ×2 (10:00→12:38)
[2017-06-08] MEDS: FEOSOL PO SCH ×2 (10:29→21:25)
[2017-06-08] MEDS: ZESTRIL PO SCH (10:29)
[2017-06-08] MEDS: GLUCOTROL PO SCH (10:30)
[2017-06-08] MEDS: COREG PO SCH ×2 (10:30→21:25)
[2017-06-08 10:33] LABS: Creatine Kinase MB 1.6 ng/mL (0.0-4.0)
[2017-06-08 10:34] LABS: Creatine Kinase 120 units/L (55-170)
--- NOTE | 2017-06-08 11:28 | Admit Criteria Form ---
Admission Criteria Documentation: HEART FAILURE: COMMON COMPLICATIONS Clinical Indications for Inpatient Care (nome/check or initial the applicable condition/criteria): Ongoing inpatient care may be indicated for heart failure with 1 or more of the following (1)(2)(3)(4)(5)(6)(7)(8): [ ]I. New-onset heart failure [ ]II. Acute cardiac ischemia causing or associated with failure [ ]III. Ongoing need for care for primary condition requiring frequent therapy adjustments because of changes in cardiac function (eg, drug dosage changes for drugs that are renally metabolized) [X ]IV. Complications of heart failure, including 1 or more of the following: [ ]a) Hemodynamic instability [ ]b) Pericardial effusion [ ]c) Symptomatic pleural effusion(16) [ ]d) Hypoxemia [ ]e) Tachypnea [X ]f) Dyspnea [ ]g) Syncope [ ]h) Altered mental status [ ]i) Acute renal insufficiency that is severe (reduction of more than 50% in estimated glomerular filtration rate from baseline) or progressive (reduction of more than 25% in estimated glomerular filtration rate from baseline, with creatinine continuing to rise) [ ]j) Debilitating anasarca (eg tissue breakdown with infection, inability to void due to edema)(E) (17) [ ]k) Clinically significant metabolic abnormalities due to heart failure (e.g., new-onset metabolic acidosis) Extended stay may be needed until ALL of the following are present(1)(3)(18)(41) (55): [ ]a) Hemodynamic stability [ ]b) Stable and effective diuretic regimen established (or patient on stable dialysis regimen if in chronic renal failure) [ ]c) Volume status acceptable on oral medication [ ]d) Breathing comfortably at rest [ ]e) Saturation of arterial oxygen greater than 90% or at acceptable baseline [ ]f) Pulmonary edema absent or improved [ ]g) Peripheral or sacral edema absent or improved [ ]h) Renal function stable and manageable at a lower level of care [ ]i) Complications (e.g., pleural effusion) resolved or manageable at a lower level of care [ ]j) Patient or caregiver has received written discharge instructions or educational material addressing activity level, diet, discharge medications, follow-up appointment, weight monitoring, and what to do if symptoms worsen. (56)(57)(58) The original [facility] [employer] content created by Brandie Acuna has been revised. The portions of the content which have been revised are identified through the use of italic text or in bold, and Brandie Acuna has neither reviewed nor approved the modified material.All other unmodified content is copyright [facility] [employer]. Please see references footnoted in the original [facility] edition 2017 Admission Criteria Met: Yes
--- NOTE | 2017-06-08 11:29 | Consultation ---
History of Present Illness Consult date: 06/08/17 Consult reason: congestive heart failure, known to you History of present illness: This is a 46yr old male with multiple medical problems. He has a history of nonischemic cardiomyopathy with an indwelling cardiac defibrillator. Most recent cardiac catheterization in September 2015 reports the absence of coronary artery disease. Most recent echocardiogram reports an ejection fraction 10-15%. He has a history of VT/VF and is on amiodarone for suppression. He is taking eliquis for anticoagulation for high probability for pulmonary embolus on nuclear medicine study. Co-morbidities include COPD, BRITTON, HTN and obesity. On yesterday, he was seen in our office for a routine visit. He complained of unintentional weight gain, bilateral lower extremity swelling, and right flank pain and sent to the ED for evaluation. An abdominal CT reports no acute findings. Chest x-ray reports a mild cardiomegaly but no significant CHF. Cardiac consultation requested. Medications and Allergies Allergies Allergy/AdvReac Type Severity Reaction Status Date / Time cephalexin monohydrate Allergy Hives Verified 03/09/15 22:20 [From Keflex] lidocaine Allergy Hives Verified 03/09/15 22:20 mushrooms Allergy Swelling Uncoded 06/26/15 12:23 Home Medications Medication Instructions Recorded Confirmed Last Taken Type Ferrous Sulfate [Feosol 325 MG tab] 325 mg PO BID 05/19/15 06/08/17 1 Day Ago History Magnesium Oxide 400 mg PO DAILY 08/31/16 06/08/17 1 Day Ago History Aspirin [Aspirin TAB] 325 mg PO QDAY #30 tablet 12/14/16 06/08/17 1 Day Ago Rx Carvedilol [Coreg] 25 mg PO BID #60 tablet 12/14/16 06/08/17 1 Day Ago Rx ISOSORBIDE MONOnitrate [Imdur ER] 30 mg PO DAILY #30 tablet 12/14/16 06/08/17 1 Day Ago Rx Insulin Glargine,Hum.rec.anlog 20 units SQ QHS #5 pen 02/06/17 06/08/17 1 Day Ago Rx [Lantus Solostar] Fluticasone/Salmeterol [Advair 1 each IH PRN PRN 03/06/17 06/08/17 1 Day Ago History Diskus 500-50 mcg] Ipratropium/Albuter (Nf) 2 puff IH BID 03/06/17 06/08/17 1 Day Ago History [Combivent Inhaler] Amiodarone [Cordarone 200 MG TAB] 200 mg PO QDAY 03/16/17 06/08/17 1 Day Ago History Spironolactone [Aldactone] 25 mg PO QDAY 03/16/17 06/08/17 1 Day Ago History Torsemide [Demadex] 100 mg PO QDAY 03/16/17 06/08/17 1 Day Ago History glipiZIDE [Glucotrol] 10 mg PO QDAY 03/16/17 06/08/17 1 Day Ago History Apixaban [Eliquis] 10 mg PO BID #60 tab 03/20/17 06/08/17 1 Day Ago Rx Active Meds: Active Medications Acetaminophen (Tylenol) 650 mg PO Q4H PRN PRN Reason: Pain MILD(1-3)/Fever >100.5/KNIGHT Acetaminophen/Hydrocodone Bitart (Labolt 5/325) 1 each PO Q4H PRN PRN Reason: Pain, Moderate (4-6) Last Admin: 06/08/17 05:06 Dose: 1 each Amiodarone HCl (Cordarone) 200 mg PO QDAY [facility] Last Admin: 06/08/17 10:30 Dose: 200 mg Apixaban (Eliquis) 10 mg PO BID [facility] PRN Reason: Protocol Last Admin: 06/08/17 10:30 Dose: 10 mg Aspirin (Aspirin) 325 mg PO QDAY [facility] Last Admin: 06/08/17 10:29 Dose: 325 mg Bisacodyl (Dulcolax) 10 mg DE QDAY PRN PRN Reason: Constipation unrelieved by MOM Carvedilol (Coreg) 25 mg PO BID [facility] Last Admin: 06/08/17 10:30 Dose: 25 mg Ferrous Sulfate (Feosol) 325 mg PO BID [facility] Last Admin: 06/08/17 10:29 Dose: 325 mg Furosemide (Lasix) 40 mg IV BID@0600,1800 [facility] Last Admin: 06/08/17 05:06 Dose: 40 mg Glipizide (Glucotrol) 10 mg PO QDDIAB [facility] Last Admin: 06/08/17 10:30 Dose: 10 mg Influenza Virus Vaccine Quadrival (Fluarix Quad [id number](36 Mos+)) 0.5 ml IM .ONCE ONE Stop: 06/08/17 12:01 Insulin Detemir (Levemir) 20 units SUB-Q QHS [facility] Lisinopril (Zestril) 2.5 mg PO QDAY [facility] Last Admin: 06/08/17 10:29 Dose: 2.5 mg Magnesium Hydroxide (Milk Of Magnesia) 30 ml PO Q4H PRN PRN Reason: Constipation Ondansetron HCl (Zofran) 4 mg IV Q8H PRN PRN Reason: N/V unrelieved by Reglan Physical Examination Vital Signs Temp Pulse Resp BP Pulse Ox 98.6 F 72 18 121/76 100 06/07/17 16:15 06/07/17 16:15 06/07/17 16:15 06/07/17 16:15 06/07/17 16:15 General appearance: no acute distress Cardiac: Positive: Other (AV paced) Results 06/07/17 16:28 06/07/17 16:28 Cardiac Enzymes 06/08/17 Range/Units 09:46 CK-MB (CK-2) 1.6 (0.0-4.0) ng/mL Assessment and Plan Decompensated Systolic heart failure Dilated nonischemic cardiomyopathy, EF 10-15% normal coronaries by [facility] 09/2015 Chronic obstructive pulmonary disease Essential hypertension Type 2 diabetes mellitus Obstructive sleep apnea Presence of AICD (Medtronic) Hx of VT/VF on amiodarone for suppression Hx of High probability for pulmonary embolism on eliquis therapy Recommendations: Daily weights 48oz fluid restriction. Low sodium diet. Aggressive therapy for his decompensated heart failure to include IV diuretics, afterload reduction and beta blockers.
[2017-06-08] MEDS ORDERED: Fluarix Quad 2017-2018(36 MOS+) IM ONE (12:00)
[2017-06-08] MEDS: K-DUR PO SCH (14:19)
--- NOTE | 2017-06-08 14:55 | Event Note ---
Date: 06/08/17 Patient reevaluated Doing well Check BMP
[2017-06-08] MEDS ORDERED: K-DUR PO ONE (16:00)
[2017-06-08] MEDS: BUMEX IV SCH (18:27)
[2017-06-08] MEDS: ELIQUIS PO SCH (21:25)
[2017-06-08] MEDS: LEVEMIR SUB-Q SCH (21:26)
[2017-06-08] MEDS ORDERED: NON-FORMULARY (Insulin Glargine,Hum.Rec.Anlog [Lantus Solostar] 20 UNITS) SQ SCH (22:00)
[2017-06-09] MEDS: K-DUR PO SCH ×3 (00:49→21:45)
[2017-06-09] MEDS: BUMEX IV SCH ×2 (05:37→17:17)
[2017-06-09 06:33] LABS: Basophils % (Auto) 0.6 % (0.0-1.8); Eosinophils % (Auto) 1.9 % (0.0-4.3); Hematocrit 34.5 % (35.5-45.6); Hemoglobin 11.5 gm/dl (11.8-15.2); Mean Corpuscular HGB Conc 34 % (32-34); Mean Corpuscular Hemoglobin 32 pg (28-32); Mean Corpuscular Volume 94 fl (84-94); Platelet Count 211 K/mm3 (140-440); Red Blood Count 3.66 M/mm3 (3.65-5.03); Red Cell Distribution Width 17.7 % (13.2-15.2); White Blood Count 9.4 K/mm3 (4.5-11.0)
[2017-06-09 06:51] LABS: BUN/Creatinine Ratio 8.33; Blood Urea Nitrogen 10 mg/dL (9-20); Carbon Dioxide 29 mmol/L (22-30); Glucose 107 mg/dL (75-100)
[2017-06-09 06:52] LABS: Anion Gap 16 mmol/L; Chloride 95.7 mmol/L (98-107); Potassium 3.4 mmol/L (3.6-5.0); Sodium 137 mmol/L (137-145)
--- NOTE | 2017-06-09 08:09 | Progress Note ---
Assessment and Plan Decompensated Systolic heart failure Dilated nonischemic cardiomyopathy, EF 10-15% normal coronaries by 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 Low sodium diet. Continue IV diuretics Check BMP and magnesium in am Subjective Date of service: 06/09/17 Principal diagnosis: CHF Interval history: Patient is doing and feeling better. Edema is improving Objective Vital Signs Temp Pulse Resp BP Pulse Ox 06/09/17 07:47 98.9 F 71 20 103/55 96 06/09/17 05:00 98.1 F 64 18 135/80 97 06/09/17 00:00 98.1 F 67 18 144/76 97 06/08/17 22:00 22 97 06/08/17 20:45 70 06/08/17 20:00 98.3 F 73 18 110/53 96 06/08/17 16:55 98.2 F 70 24 128/58 98 06/08/17 11:15 98.5 F 78 22 116/58 94 06/08/17 10:03 96 06/08/17 08:30 97.8 F 72 24 134/70 96 - Physical Examination General: Appears Well HEENT: Positive: PERRL Neck: Positive: neck supple Cardiac: Positive: Reg Rate and Rhythm Lungs: Positive: Normal Exam, clear to auscultation Neuro: Positive: Grossly Intact Abdomen: Positive: Soft Extremities: Present: normal, +1 Edema - Labs and Meds Cardiac Enzymes 06/08/17 Range/Units 09:46 CK-MB (CK-2) 1.6 (0.0-4.0) ng/mL CBC 06/09/17 Range/Units 06:00 WBC 9.4 (4.5-11.0) K/mm3 RBC 3.66 (3.65-5.03) M/mm3 Hgb 11.5 L (11.8-15.2) gm/dl Hct 34.5 L (35.5-45.6) % Plt Count 211 (140-440) K/mm3 Lymph # 2.0 (1.2-5.4) K/mm3 [place] # 0.9 H (0.0-0.8) K/mm3 Eos # 0.2 (0.0-0.4) K/mm3 Baso # 0.1 (0.0-0.1) K/mm3 Comprehensive Metabolic Panel 06/09/17 Range/Units 05:41 Sodium 137 (137-145) mmol/L Potassium 3.4 L (3.6-5.0) mmol/L Chloride 95.7 L (98-107) mmol/L Carbon Dioxide 29 (22-30) mmol/L BUN 10 (9-20) mg/dL Creatinine 1.2 (0.8-1.5) mg/dL Glucose 107 H (75-100) mg/dL Calcium 9.0 (8.4-10.2) mg/dL - Imaging and Cardiology EKG: image reviewed
[2017-06-09] MEDS: FEOSOL PO SCH ×2 (09:54→21:44)
[2017-06-09] MEDS: ELIQUIS PO SCH ×2 (09:54→21:45)
[2017-06-09] MEDS: BABY ASPIRIN PO SCH (09:56)
[2017-06-09] MEDS: ZESTRIL PO SCH (09:56)
[2017-06-09] MEDS: GLUCOTROL PO SCH (09:56)
[2017-06-09] MEDS: COREG PO SCH ×2 (09:57→21:44)
--- NOTE | 2017-06-09 10:20 | Progress Note ---
Assessment and Plan Assessment and plan: Decompensated Systolic heart failure. Cont IV diuretics. Continue fluid restriction and low-sodium diet. Daily weights and strict I/Os Dilated nonischemic cardiomyopathy, EF 10-15%. Presence of AICD (Medtronic). Patient with normal coronaries by [facility] 09/2015 Chronic obstructive pulmonary disease. Compensated. Continue breathing treatments. Essential hypertension. Continue antihypertensive medications. Zestril. Type 2 diabetes mellitus. Continue sliding scale insulin, Levemir and glipizide. Obstructive sleep apnea. BiPAP/CPAP as clinically indicated. Hx of VT/VF. 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 Cont. on eliquis therapy History Interval history: No new issues overnight Hospitalist Physical - Constitutional Vitals: Temp Pulse Resp BP Pulse Ox 98.9 F 71 20 103/55 96 06/09/17 07:47 06/09/17 09:57 06/09/17 07:47 06/09/17 09:57 06/09/17 07:47 General appearance: Present: no acute distress - EENT Eyes: Present: PERRL, EOM intact ENT: hearing intact, clear oral mucosa, dentition normal - Neck Neck: Present: supple, normal ROM - Respiratory Respiratory effort: normal Respiratory: bilateral: CTA - Cardiovascular Rhythm: regular Heart Sounds: Present: S1 & S2. Absent: gallop, rub - Extremities Extremities: no ischemia, No edema, Full ROM - Abdominal General gastrointestinal: soft, non-tender, non-distended, normal bowel sounds - Integumentary Integumentary: Present: clear, warm, dry - Neurologic Neurologic: CNII-XII intact, moves all extremities Results - Labs CBC & Chem 7: 06/09/17 06:00 06/09/17 05:41 Labs: Laboratory Last Values WBC 9.4 K/mm3 (4.5-11.0) 06/09/17 06:00 RBC 3.66 M/mm3 (3.65-5.03) 06/09/17 06:00 Hgb 11.5 gm/dl (11.8-15.2) L 06/09/17 06:00 Hct 34.5 % (35.5-45.6) L 06/09/17 06:00 MCV 94 fl (84-94) 06/09/17 06:00 MCH 32 pg (28-32) 06/09/17 06:00 MCHC 34 % (32-34) 06/09/17 06:00 RDW 17.7 % (13.2-15.2) H 06/09/17 06:00 Plt Count 211 K/mm3 (140-440) 06/09/17 06:00 Lymph % (Auto) 20.8 % (13.4-35.0) 06/09/17 06:00 [place] % (Auto) 9.7 % (0.0-7.3) H 06/09/17 06:00 Eos % (Auto) 1.9 % (0.0-4.3) 06/09/17 06:00 Baso % (Auto) 0.6 % (0.0-1.8) 06/09/17 06:00 Lymph # 2.0 K/mm3 (1.2-5.4) 06/09/17 06:00 [place] # 0.9 K/mm3 (0.0-0.8) H 06/09/17 06:00 Eos # 0.2 K/mm3 (0.0-0.4) 06/09/17 06:00 Baso # 0.1 K/mm3 (0.0-0.1) 06/09/17 06:00 Seg Neutrophils % 67.0 % (40.0-70.0) 06/09/17 06:00 Seg Neutrophils # 6.3 K/mm3 (1.8-7.7) 06/09/17 06:00 PT 16.3 Sec. (12.2-14.9) H 06/07/17 21:53 INR 1.24 (0.87-1.13) H 06/07/17 21:53 APTT 32.3 Sec. (24.2-36.6) 06/07/17 21:53 Sodium 137 mmol/L (137-145) 06/09/17 05:41 Potassium 3.4 mmol/L (3.6-5.0) L 06/09/17 05:41 Chloride 95.7 mmol/L (98-107) L 06/09/17 05:41 Carbon Dioxide 29 mmol/L (22-30) 06/09/17 05:41 Anion Gap 16 mmol/L 06/09/17 05:41 BUN 10 mg/dL (9-20) 06/09/17 05:41 Creatinine 1.2 mg/dL (0.8-1.5) 06/09/17 05:41 Estimated GFR > 60 ml/min 06/09/17 05:41 BUN/Creatinine Ratio 8.33 % 06/09/17 05:41 Glucose 107 mg/dL (75-100) H 06/09/17 05:41 POC Glucose 119 (70-105) H 06/08/17 21:04 Calcium 9.0 mg/dL (8.4-10.2) 06/09/17 05:41 Magnesium 1.70 mg/dL (1.7-2.3) 06/07/17 21:53 Total Creatine Kinase 120 units/L (55-170) 06/08/17 09:46 CK-MB (CK-2) 1.6 ng/mL (0.0-4.0) 06/08/17 09:46 CK-MB (CK-2) Rel Index 1.3 (0-4) 06/08/17 09:46 Troponin T < 0.010 ng/mL (0.00-0.029) 06/08/17 09:46 NT-Pro-B Natriuret Pep 2029 pg/mL (0-450) H 06/07/17 21:53 Urine Color Colorless (Yellow) 06/07/17 16:36 Urine Turbidity Clear (Clear) 06/07/17 16:36 Urine pH 6.0 (5.0-7.0) 06/07/17 16:36 Ur Specific [place] 1.003 (1.003-1.030) 06/07/17 16:36 Urine Protein <15 mg/dl mg/dL (Negative) 06/07/17 16:36 Urine Glucose (UA) Neg mg/dL (Negative) 06/07/17 16:36 Urine Ketones Neg mg/dL (Negative) 06/07/17 16:36 Urine Blood Neg (Negative) 06/07/17 16:36 Urine Nitrite Neg (Negative) 06/07/17 16:36 Urine Bilirubin Neg (Negative) 06/07/17 16:36 Urine Urobilinogen < 2.0 mg/dL (<2.0) 06/07/17 16:36 Ur Leukocyte Esterase Neg (Negative) 06/07/17 16:36 Urine WBC (Auto) 0.0 /HPF (0.0-6.0) 06/07/17 16:36 Urine RBC (Auto) 0.0 /HPF (0.0-6.0) 06/07/17 16:36
[2017-06-09] MEDS ORDERED: D50W (25GM) Syringe IV PRN (10:27)
[2017-06-09] MEDS: NOVOLOG SUB-Q SCH ×3 (11:38→21:51)
[2017-06-09] MEDS: LEVEMIR SUB-Q SCH (21:43)
[2017-06-10 01:08] LABS: Anion Gap 18 mmol/L; BUN/Creatinine Ratio 9.09; Blood Urea Nitrogen 10 mg/dL (9-20); Carbon Dioxide 27 mmol/L (22-30); Chloride 96.2 mmol/L (98-107); Glucose 133 mg/dL (75-100); Potassium 3.6 mmol/L (3.6-5.0); Sodium 138 mmol/L (137-145)
[2017-06-10] MEDS: BUMEX IV SCH (05:38)
[2017-06-10] MEDS: NOVOLOG SUB-Q SCH (07:35)
[2017-06-10 07:43] LABS: Basophils % (Auto) 1.2 % (0.0-1.8); Eosinophils % (Auto) 1.8 % (0.0-4.3); Hematocrit 33.9 % (35.5-45.6); Hemoglobin 11.6 gm/dl (11.8-15.2); Mean Corpuscular HGB Conc 34 % (32-34); Mean Corpuscular Hemoglobin 32 pg (28-32); Mean Corpuscular Volume 94 fl (84-94); Platelet Count 230 K/mm3 (140-440); Red Cell Distribution Width 17.4 % (13.2-15.2); White Blood Count 10.8 K/mm3 (4.5-11.0)
[2017-06-10] MEDS: GLUCOTROL PO SCH (09:01)
[2017-06-10] MEDS: COREG PO SCH (09:02)
[2017-06-10] MEDS: BABY ASPIRIN PO SCH (09:02)
[2017-06-10] MEDS: ZESTRIL PO SCH (09:02)
[2017-06-10] MEDS: FEOSOL PO SCH (09:03)
[2017-06-10] MEDS: K-DUR PO SCH (09:03)
[2017-06-10] MEDS: ELIQUIS PO SCH (09:03)
--- NOTE | 2017-06-10 09:12 | Progress Note ---
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 Eliquis 5 mg po bid 2. Bumex 2 mg po twice daily 3. Coreg 25 mg po bid 4. Lisinopril 2.5 mg po daily 5. K-Dur 40 meq po bid for 4 days then 40 meq po daily 6. Metolazone 5 mg po once a week as needed for swelling or > 3 lbs weight gain STOP ALDACTONE, AND AMIODARONE FOR THE TIME BEING Follow-up with [facility] in 1 week Fluid and salt restriction Subjective Date of service: 06/10/17 Principal diagnosis: CHF Interval history: Patient is feeling better and he states that he is at his baseline and ready to go home Objective Vital Signs Temp Pulse Resp BP Pulse Ox 06/10/17 09:02 70 115/57 06/10/17 07:49 98.7 F 70 20 113/57 95 06/10/17 04:24 98.1 F 65 20 136/86 97 06/10/17 00:22 98.2 F 66 20 121/78 98 06/09/17 22:00 73 06/09/17 20:15 98.5 F 71 20 123/71 98 06/09/17 16:53 70 06/09/17 16:36 94 06/09/17 15:32 98.1 F 71 20 122/71 97 06/09/17 11:34 72 F L 89 20 111/63 96 06/09/17 09:57 71 103/55 06/09/17 09:56 71 103/55 - Physical Examination General: Appears Well HEENT: Positive: PERRL Neck: Positive: neck supple Cardiac: Positive: Reg Rate and Rhythm Lungs: Positive: Normal Exam Neuro: Positive: Grossly Intact Abdomen: Positive: Soft Extremities: Present: normal, +1 Edema - Labs and Meds CBC 06/10/17 Range/Units 07:02 WBC 10.8 (4.5-11.0) K/mm3 RBC 3.60 L (3.65-5.03) M/mm3 Hgb 11.6 L (11.8-15.2) gm/dl Hct 33.9 L (35.5-45.6) % Plt Count 230 (140-440) K/mm3 Lymph # 2.1 (1.2-5.4) K/mm3 [place] # 1.1 H (0.0-0.8) K/mm3 Eos # 0.2 (0.0-0.4) K/mm3 Baso # 0.1 (0.0-0.1) K/mm3 Comprehensive Metabolic Panel 06/10/17 Range/Units 00:26 Sodium 138 (137-145) mmol/L Potassium 3.6 (3.6-5.0) mmol/L Chloride 96.2 L (98-107) mmol/L Carbon Dioxide 27 (22-30) mmol/L BUN 10 (9-20) mg/dL Creatinine 1.1 (0.8-1.5) mg/dL Glucose 133 H (75-100) mg/dL Calcium 9.0 (8.4-10.2) mg/dL - Imaging and Cardiology EKG: image reviewed
--- NOTE | 2017-06-10 10:27 | Discharge Summary ---
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 The patient was admitted with diagnosis of decompensated acute systolic heart failure. Patient was treated with appropriate medications for diuresis and had significant improvement throughout hospitalization. Cardiology saw the patient in consultation. Patient is felt to have received maximal hospital benefit. Patient will be discharged with Bumex twice a day and is to follow-up as an outpatient with cardiology. Dedicated discharge time 35 minutes. Disposition: - TO HOME OR SELFCARE Time spent for discharge: 35 - Discharge Diagnoses (1) CHF exacerbation Status: Acute Qualifiers: Congestive heart failure type: C (2) Acute CHF (congestive heart failure) Status: Acute Qualifiers: Congestive heart failure type: systolic Qualified Code(s): I50.21 - Acute systolic (congestive) heart failure (3) COPD (chronic obstructive pulmonary disease) Status: Acute Qualifiers: COPD type: C Chronic bronchitis type: C Emphysema type: E (4) Cardiomyopathy Status: Acute Qualifiers: Cardiomyopathy type: C (5) Localized swelling of both lower legs Status: Acute (6) Sleep apnea, obstructive Status: Acute (7) Dilated cardiomyopathy Status: Chronic (8) HTN (hypertension) Status: Chronic Qualifiers: Hypertension type: essential hypertension Qualified Code(s): I10 - Essential (primary) hypertension (9) Morbid obesity due to excess calories Status: Chronic Core Measure Documentation - Palliative Care Palliative Care/ Comfort Measures: Not Applicable - Core Measures Any of the following diagnoses?: heart failure - Heart Failure Discharge Requirements BRITTA/ARB for LVSD if EF <40%: Yes Beta brandon at discharge: Yes Exam - Constitutional Vitals: Temp Pulse Resp BP Pulse Ox 98.7 F 70 20 115/57 95 06/10/17 07:49 06/10/17 09:02 06/10/17 07:49 06/10/17 09:02 06/10/17 07:49 General appearance: Present: no acute distress, obese - EENT Eyes: Present: PERRL ENT: hearing intact, clear oral mucosa - Neck Neck: Present: supple, normal ROM - Respiratory Respiratory effort: normal Respiratory: bilateral: CTA - Cardiovascular Heart Sounds: Present: S1 & S2. Absent: rub, click - Extremities Extremities: pulses symmetrical, No edema Peripheral Pulses: within normal limits - Abdominal General gastrointestinal: Present: soft, non-tender, non-distended, normal bowel sounds Male genitourinary: Present: normal - Integumentary Integumentary: Present: clear, warm, dry - Musculoskeletal Musculoskeletal: gait normal, strength equal bilaterally - Psychiatric Psychiatric: appropriate mood/affect, intact judgment & insight - Neurologic Neurologic: CNII-XII intact, moves all extremities Plan Activity: no restrictions Weight Bearing Status: Full Weight Bearing Diet: low salt, diabetic, other (Fluid and salt restriction) Additional Instructions: STOP ALDACTONE, AND AMIODARONE FOR THE TIME BEING Follow up with: PRIMARY CARE, [Primary Care Provider] - 3-5 Days OMID ALVARES MD [Staff Physician] - 7 Days Prescriptions: Apixaban [Eliquis] 5 mg PO Q12HR #60 tablet Bumetanide [Bumex 1 mg tab] 2 mg PO BID #60 tab Carvedilol [Coreg] 25 mg PO BID #60 tablet Lisinopril [Zestril TAB] 2.5 mg PO QDAY #30 tablet Metolazone 5 mg PO 1XW #10 tablet Potassium Chloride [K-Dur] 40 meq PO QDAY #26 tablet Potassium Chloride [K-Dur] 40 meq PO BID #8 tab
[2017-06-10 11:40] VITALS: BP 130/90
== END 2017-06-10 13:07 | disposition home or self-care (01) | DRG 291 ==
LOC: ED 15:52 → 4A 06-08 03:49
PROVIDERS: ADMIT Internal Medicine; ATTEND Hospitalist
PROC: 3E0234Z Introduction of Serum, Toxoid and Vaccine into Muscle, Percutaneous Approach (ICD-10-PCS; principal; 2017-06-08)
DX: I13.0 Hypertensive heart and chronic kidney disease with heart failure and stage 1 through stage 4 chronic kidney disease, or unspecified chronic kidney disease (principal); I49.01 Ventricular fibrillation; I50.23 Acute on chronic systolic (congestive) heart failure; Z68.43 Body mass index [BMI] 50.0-59.9, adult; I42.0 Dilated cardiomyopathy; J44.9 Chronic obstructive pulmonary disease, unspecified; E66.01 Morbid (severe) obesity due to excess calories; G47.33 Obstructive sleep apnea (adult) (pediatric); F32.9 Major depressive disorder, single episode, unspecified; M79.89 Other specified soft tissue disorders; E11.9 Type 2 diabetes mellitus without complications; M19.90 Unspecified osteoarthritis, unspecified site; M54.9 Dorsalgia, unspecified; M10.9 Gout, unspecified; Z96.649 Presence of unspecified artificial hip joint; E06.4 Drug-induced thyroiditis; T46.2X5A Adverse effect of other antidysrhythmic drugs, initial encounter; N18.3 Chronic kidney disease, stage 3 (moderate); Z95.810 Presence of automatic (implantable) cardiac defibrillator; Z79.899 Other long term (current) drug therapy; Z91.018 Allergy to other foods; Z91.09 Other allergy status, other than to drugs and biological substances; Z86.718 Personal history of other venous thrombosis and embolism; Z90.49 Acquired absence of other specified parts of digestive tract; Z82.49 Family history of ischemic heart disease and other diseases of the circulatory system; Z83.3 Family history of diabetes mellitus; Y92.89 Other specified places as the place of occurrence of the external cause; Z86.711 Personal history of pulmonary embolism; Z23 Encounter for immunization
CPT/HCPCS: 36415; 71020; 74176; 80048; 81001; 82550; 82553; 82962; 83735; 83880; 84484; 85025; 85610; 85730; 90686; 93005; 93010; 96374; 96375; J1170; J1818; J1940

== ENCOUNTER 2017-07-06 00:13 | Inpatient (IN) | payer MEDICAID ==
[2017-07-06 00:57] LABS: Basophils % (Auto) 0.8 % (0.0-1.8); Eosinophils % (Auto) 0.9 % (0.0-4.3); Hematocrit 36.5 % (35.5-45.6); Hemoglobin 12.4 gm/dl (11.8-15.2); Mean Corpuscular HGB Conc 34 % (32-34); Mean Corpuscular Hemoglobin 32 pg (28-32); Mean Corpuscular Volume 95 fl (84-94); Platelet Count 216 K/mm3 (140-440); Red Blood Count 3.85 M/mm3 (3.65-5.03); Red Cell Distribution Width 17.3 % (13.2-15.2); White Blood Count 9.1 K/mm3 (4.5-11.0)
[2017-07-06 01:10] LABS: Anion Gap 18 mmol/L; BUN/Creatinine Ratio 6.66; Blood Urea Nitrogen 10 mg/dL (9-20); Calcium 9.2 mg/dL (8.4-10.2); Carbon Dioxide 28 mmol/L (22-30); Chloride 97.4 mmol/L (98-107); Glucose 161 mg/dL (75-100); Sodium 140 mmol/L (137-145)
[2017-07-06] MEDS ORDERED: PROVENTIL IH ONE (01:28)
[2017-07-06] MEDS ORDERED: ATROVENT IH ONE (01:28)
[2017-07-06] MEDS ORDERED: MAGNESIUM SULFATE 2GM/50ML 2 GM/50 ML BAG IV ONE (01:29)
[2017-07-06 01:31] LABS: Magnesium 1.9 mg/dL (1.7-2.3)
[2017-07-06] MEDS ORDERED: K-DUR PO ONE (01:32)
--- NOTE | 2017-07-06 02:16 | XRay Report ---
FINAL REPORT PROCEDURE: XR CHEST ROUTINE 2V TECHNIQUE: PA and lateral chest radiographs were obtained. CPT 08607 HISTORY: Shortness of breath COMPARISON: 03/16/2017 FINDINGS: Heart: Normal. Mediastinum/Vessels: There is a cardiac pacemaker with the battery in the left chest wall. Lungs/Pleural space: Mild atelectasis bilateral lower lungs. No effusion or pneumothorax. Bony thorax: No acute osseous abnormality. Other: IMPRESSION: Mild bilateral lower lung atelectasis.
[2017-07-06] MEDS ORDERED: MORPHINE IV ONE (03:11)
[2017-07-06] MEDS ORDERED: ZOFRAN IV ONE (03:11)
--- NOTE | 2017-07-06 05:39 | Emergency Department Report ---
ED Shortness of Breath HPI - General Chief Complaint: Dyspnea/Respdistress Stated Complaint: DIFFICULTY IN BREATHING Time Seen by Provider: 07/06/17 01:20 Source: EMS Mode of arrival: Stretcher Limitations: No Limitations - History of Present Illness Initial Comments: 46-year-old male with a past smoking history asthma, PE, CHF, COPD, CAD, defibrillator, hypertension, sleep apnea, and previous episodes of renal insufficiency presents to the hospital with complains of shortness of breath 1 day. Symptoms started last night. Patient usually in Combivent and nebulized treatment. Denies current steroid use. Per previous medical record review patient was diagnosed with PE via V/Q scan in February. 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 pt complains of mild twisting chest pain and dry cough. - Related Data Home Medications Medication Instructions Recorded Confirmed Last Taken Ferrous Sulfate [Feosol 325 MG tab] 325 mg PO BID 05/19/15 06/08/17 1 Day Ago Magnesium Oxide 400 mg PO DAILY 08/31/16 06/08/17 1 Day Ago Fluticasone/Salmeterol [Advair 1 each IH PRN PRN 03/06/17 06/08/17 1 Day Ago Diskus 500-50 mcg] Ipratropium/Albuter (Nf) 2 puff IH BID 03/06/17 06/08/17 1 Day Ago [Combivent Inhaler] glipiZIDE [Glucotrol] 10 mg PO QDAY 03/16/17 06/08/17 1 Day Ago Previous Rx's Medication Instructions Recorded Last Taken Type ISOSORBIDE MONOnitrate [Imdur ER] 30 mg PO DAILY #30 tablet 12/14/16 1 Day Ago Rx Insulin Glargine,Hum.rec.anlog 20 units SQ QHS #5 pen 02/06/17 1 Day Ago Rx [Lantus Solostar] Apixaban [Eliquis] 5 mg PO Q12HR #60 tablet 06/10/17 Unknown Rx Aspirin [Aspirin BABY CHEW TAB] 81 mg PO QDAY tab.chew 06/10/17 Unknown Rx Bumetanide [Bumex 1 mg tab] 2 mg PO BID #60 tab 06/10/17 Unknown Rx Carvedilol [Coreg] 25 mg PO BID #60 tablet 06/10/17 Unknown Rx Lisinopril [Zestril TAB] 2.5 mg PO QDAY #30 tablet 06/10/17 Unknown Rx Metolazone 5 mg PO 1XW #10 tablet 06/10/17 Unknown Rx Potassium Chloride [K-Dur] 40 meq PO BID #8 tab 06/10/17 Unknown Rx Potassium Chloride [K-Dur] 40 meq PO QDAY #26 tablet 06/10/17 Unknown Rx Allergies Allergy/AdvReac Type Severity Reaction Status Date / Time cephalexin monohydrate Allergy Hives Verified 03/09/15 22:20 [From Keflex] lidocaine Allergy Hives Verified 03/09/15 22:20 mushrooms Allergy Swelling Uncoded 06/26/15 12:23 ED Review of Systems ROS: Stated complaint: DIFFICULTY IN BREATHING Other details as noted in HPI Comment: All other systems reviewed and negative Other: Constitutional: No fevers chills Eyes: No eye pain visual changes ENT: No ear pain or throat pain Neck: Denies pain Respiratory: As per hpi Cardiovascular: Mild twisting cp. palpitations, syncope GI: Denies abdominal pain, nausea, vomiting, diarrhea : Denies dysuria Musculoskeletal: Denies back pain Skin: Denies rash, lesions, erythema Neurologic: Denies headache, numbness, weakness Psychiatric: Denies suicidal ideation, hallucinations ED Past Medical Hx - Past Medical History Hx Hypertension: Yes Hx Heart Attack/AMI: No Hx Congestive Heart Failure: Yes Hx Diabetes: Yes Hx Deep Vein Thrombosis: Yes Hx Pulmonary Embolism: Yes Hx Liver Disease: No Hx Renal Disease: Yes (insufficiency) Hx Sickle Cell Disease: No Hx Arthritis: Yes (Knees) Hx Asthma: Yes Hx COPD: Yes Hx Tuberculosis: No Hx HIV: No Additional medical history: copd; sleep apnea - Surgical History Hx Coronary Stent: No Hx Pacemaker: Yes Hx Internal Defibrillator: Yes Hx Cholecystectomy: Yes Additional Surgical History: defibrillator - Social History Smoking Status: Never Smoker Substance Use Type: None - Medications Home Medications: Home Medications Medication Instructions Recorded Confirmed Last Taken Type Ferrous Sulfate [Feosol 325 MG tab] 325 mg PO BID 05/19/15 06/08/17 1 Day Ago History Magnesium Oxide 400 mg PO DAILY 08/31/16 06/08/17 1 Day Ago History ISOSORBIDE MONOnitrate [Imdur ER] 30 mg PO DAILY #30 tablet 12/14/16 06/08/17 1 Day Ago Rx Insulin Glargine,Hum.rec.anlog 20 units SQ QHS #5 pen 02/06/17 06/08/17 1 Day Ago Rx [Lantus Solostar] Fluticasone/Salmeterol [Advair 1 each IH PRN PRN 03/06/17 06/08/17 1 Day Ago History Diskus 500-50 mcg] Ipratropium/Albuter (Nf) 2 puff IH BID 03/06/17 06/08/17 1 Day Ago History [Combivent Inhaler] glipiZIDE [Glucotrol] 10 mg PO QDAY 03/16/17 06/08/17 1 Day Ago History Apixaban [Eliquis] 5 mg PO Q12HR #60 tablet 06/10/17 Unknown Rx Aspirin [Aspirin BABY CHEW TAB] 81 mg PO QDAY tab.chew 06/10/17 Unknown Rx Bumetanide [Bumex 1 mg tab] 2 mg PO BID #60 tab 06/10/17 Unknown Rx Carvedilol [Coreg] 25 mg PO BID #60 tablet 06/10/17 Unknown Rx Lisinopril [Zestril TAB] 2.5 mg PO QDAY #30 tablet 06/10/17 Unknown Rx Metolazone 5 mg PO 1XW #10 tablet 06/10/17 Unknown Rx Potassium Chloride [K-Dur] 40 meq PO BID #8 tab 06/10/17 Unknown Rx Potassium Chloride [K-Dur] 40 meq PO QDAY #26 tablet 06/10/17 Unknown Rx ED Physical Exam - General Limitations: No Limitations - Other Other exam information: General: No limitations, patient is alert in no acute distress Head exam: Atraumatic, normocephalic Eyes exam: Normal appearance ENT: Moist mucous membrane, normal oropharynx Neck exam: Normal inspection, full range of motion, no meningismus nontender Respiratory exam: diminished bs b/l, no wheezes, rales, or crackles Cardiovascular: Normal rate and rhythm Abdomen: Soft, nondistended, and nontender, with normal bowel sounds, no rebound, or guarding Extremity: Full range of motion normal inspection no deformity Back: Normal Inspection, full range of motion, no tenderness Neurologic: Alert, oriented x3, cranial nerves intact, no motor or sensory deficit Psychiatric: normal affect, normal mood Skin: Warm, dry, intact ED Course Vital Signs 07/06/17 07/06/17 07/06/17 00:29 00:30 00:34 Temperature 98.4 F Pulse Rate 77 75 Respiratory 18 18 Rate Blood Pressure 123/70 O2 Sat by Pulse 97 98 Oximetry 07/06/17 00:38 Temperature Pulse Rate Respiratory 20 Rate Blood Pressure O2 Sat by Pulse 98 Oximetry - Reevaluation(s) Reevaluation #1: 07/06/17 05:40 Patient treated with pain medication, nausea medication, steroids, albuterol, Atrovent, and magnesium. By mouth potassium as provided by hypokalemic ED Medical Decision Making - Lab Data Result diagrams: 07/06/17 00:32 07/06/17 00:32 Lab Results 07/06/17 07/06/17 07/06/17 Range/Units 00:32 00:32 00:32 WBC 9.1 (4.5-11.0) K/mm3 RBC 3.85 (3.65-5.03) M/mm3 Hgb 12.4 (11.8-15.2) gm/dl Hct 36.5 (35.5-45.6) % MCV 95 H (84-94) fl MCH 32 (28-32) pg MCHC 34 (32-34) % RDW 17.3 H (13.2-15.2) % Plt Count 216 (140-440) K/mm3 Lymph % (Auto) 20.8 (13.4-35.0) % Ralls % (Auto) 5.2 (0.0-7.3) % Eos % (Auto) 0.9 (0.0-4.3) % Baso % (Auto) 0.8 (0.0-1.8) % Lymph # 1.9 (1.2-5.4) K/mm3 Ralls # 0.5 (0.0-0.8) K/mm3 Eos # 0.1 (0.0-0.4) K/mm3 Baso # 0.1 (0.0-0.1) K/mm3 Seg Neutrophils % 72.3 H (40.0-70.0) % Seg Neutrophils # 6.6 (1.8-7.7) K/mm3 D-Dimer (0-234) ng/mlDDU Sodium 140 (137-145) mmol/L Potassium 3.0 L (3.6-5.0) mmol/L Chloride 97.4 L (98-107) mmol/L Carbon Dioxide 28 (22-30) mmol/L Anion Gap 18 mmol/L BUN 10 (9-20) mg/dL Creatinine 1.5 (0.8-1.5) mg/dL Estimated GFR 50 ml/min BUN/Creatinine Ratio 6.66 % Glucose 161 H (75-100) mg/dL Calcium 9.2 (8.4-10.2) mg/dL Magnesium 1.90 (1.7-2.3) mg/dL Troponin T < 0.010 (0.00-0.029) ng/mL NT-Pro-B Natriuret Pep 3121 H (0-450) pg/mL 07/06/17 Range/Units 01:34 WBC (4.5-11.0) K/mm3 RBC (3.65-5.03) M/mm3 Hgb (11.8-15.2) gm/dl Hct (35.5-45.6) % MCV (84-94) fl MCH (28-32) pg MCHC (32-34) % RDW (13.2-15.2) % Plt Count (140-440) K/mm3 Lymph % (Auto) (13.4-35.0) % Ralls % (Auto) (0.0-7.3) % Eos % (Auto) (0.0-4.3) % Baso % (Auto) (0.0-1.8) % Lymph # (1.2-5.4) K/mm3 Ralls # (0.0-0.8) K/mm3 Eos # (0.0-0.4) K/mm3 Baso # (0.0-0.1) K/mm3 Seg Neutrophils % (40.0-70.0) % Seg Neutrophils # (1.8-7.7) K/mm3 D-Dimer 454.58 H (0-234) ng/mlDDU Sodium (137-145) mmol/L Potassium (3.6-5.0) mmol/L Chloride (98-107) mmol/L Carbon Dioxide (22-30) mmol/L Anion Gap mmol/L BUN (9-20) mg/dL Creatinine (0.8-1.5) mg/dL Estimated GFR ml/min BUN/Creatinine Ratio % Glucose (75-100) mg/dL Calcium (8.4-10.2) mg/dL Magnesium (1.7-2.3) mg/dL Troponin T (0.00-0.029) ng/mL NT-Pro-B Natriuret Pep (0-450) pg/mL - EKG Data -: EKG Interpreted by Me (73, v paced rhythm) - EKG Data When compared to previous EKG there are: no significant change - Radiology Data Radiology results: report reviewed (cxr: Mild bilateral lung atelectasis) V/Q exam: Normal - Medical Decision Making Patient be admitted for treatment COPD exacerbation. No signs of pulmonary edema on chest x-ray although patient has elevated BNP. D-dimer is elevated but VQ scan is negative. Patient will be admitted for further treatment - Differential Diagnosis COPD, CHF, PE, bronchitis Critical Care Time: No Critical care attestation.: If time is entered above; I have spent that time in minutes in the direct care of this critically ill patient, excluding procedure time. ED Disposition Clinical Impression: Acute exacerbation of chronic obstructive pulmonary disease (COPD), Cardiac defibrillator in place, Sleep apnea, Obesity, Hypokalemia Disposition: 09 OP ADMIT IP TO THIS HOSP Is pt being admited?: Yes Condition: Stable Time of Disposition: 05:42 (Dr Webb/hosp)
--- NOTE | 2017-07-06 05:42 | Nuclear Medicine Report ---
FINAL REPORT PROCEDURE: NM LUNG SCAN PERF/VENT TECHNIQUE: Five mCi Tc-99m MAA was injected IV for pulmonary perfusion imaging in multiple projections. Fifteen mCi Xenon 133 gas was inhaled for pulmonary ventilation imaging in multiple projections. Injection site: RIGHT antecubital fossa. CPT 7858 HISTORY: sob, hx of pe 02/2017 COMPARISON: Chest radiograph from earlier the same date FINDINGS: Perfusion: No defects . Ventilation: No defects . IMPRESSION: Normal Examination
--- NOTE | 2017-07-06 07:43 | Admit Criteria Form ---
Admission Criteria Documentation: COPD Clinical Indications for Admission to Inpatient Care ([place]/ check or initial the applicable condition/criteria) Admission is indicated for ANY ONE of the following (1)(2)(3): [ ]I. Acute exacerbation by high-risk comorbidity(e.g., pneumonia, dysrhythmia, heart failure, pleural effusion, pneumothorax) or severe underlying COPD (eg, baseline FEV1 less than 50% predicted) [X ]II. Inpatient admission required[A] rather than observation care (see Chronic Obstructive Pulmonary Disease: Observation Care) because of ANY ONE of the following: [X ]a) New or pre-existing signs or symptoms of COPD (eg, dyspnea or Tachypnea at rest or with minimal activity) that persist despite outpatient and observation care treatment [ ]b) New-onset hypoxemia (room air SaO2 less than 90%, PO2 less than 60 mm Hg (8.0 kPa)) that persists despite outpatient and observation care treatment [ ]c) Worsening of pre-existing hypoxemia (eg, new or increased requirement for supplemental oxygen to maintain oxygenation at baseline level) that persists despite outpatient and observation care treatment, with oxygen treatment needs performable only in acute inpatient setting [ ]d) Hypercarbia (PCO2 greater than 40 mm Hg (5.3 kPa))-induced respiratory acidosis (pH less than 7.35) that persists despite outpatient and observation care treatment [ ]e) Supplemental oxygen or respiratory treatments for over 24 hours that are performable only in acute inpatient setting [ ]f) Chest tube placement with active evacuation (e.g., suction, drainage) (6) [ ]g) Other condition, treatment or monitoring requiring inpatient admission [ ]III. Planned invasive surgical or diagnostic procedures requiring acute- care hospitalization [ ]IV. Acute respiratory failure (e.g., uncompensated hypercarbia, severe hypoxemia) [ ]V. Severe comorbid condition (e.g., severe steroid myopathy, acute vertebral fracture) that has acutely worsened pulmonary function [ ]. Altered mental status that is severe or persistent Extended stay beyond goal length of stay may be needed for (29)(30)(31)(32)(33) : [ ]a ) Respiratory Failure. [ ]b) Severe or persisting hypoxemia or hypercarbia [ ]c) Severe or persistent dyspnea [ ]d) Clinically significant Comorbidities (e.g. chronic heart failure, atrial fibrillation with rapid response, pneumonia)(36) [ ]e) Malnutrition (33) The original [facility] content created by [facility] has been revised. The portions of the content which have been revised are identified through the use of italic text or in bold, and [facility] has neither reviewed nor approved the modified material. All other unmodified content is copyright [facility]. Please see references footnoted in the original [facility] edition 2017 Admission Criteria Met: Yes
[2017-07-06] MEDS ORDERED: MORPHINE IV PRN (08:35)
[2017-07-06] MEDS ORDERED: ALUM-MAG HYDROX-SIMETH 200-200-20MG/5ML PO PRN (08:35)
[2017-07-06] MEDS ORDERED: PROVENTIL IH PRN (08:35)
[2017-07-06] MEDS ORDERED: DULCOLAX PR PRN (08:35)
[2017-07-06] MEDS ORDERED: FLUTICASONE IH PRN (08:39)
[2017-07-06] MEDS ORDERED: SALMETEROL IH PRN (08:39)
[2017-07-06] MEDS ORDERED: ZOFRAN IM PRN (08:39)
--- NOTE | 2017-07-06 08:59 | History and Physical Report ---
History of Present Illness Date of examination: 07/06/17 Date of admission: 07/06/2017 Chief complaint: Shortness of breath History of present illness: Patient is a 46-year-old black male with a past medical history of asthma, PE, CHF, COPD, CAD, defibrillator, hypertension, sleep apnea , and previous episodes of renal insufficiency who presents to the hospital with complains of shortness of breath 1 day. Until yesterday the patient was at his normal baseline state of health. Now he has had progressive worsening of his dyspnea on exertion (DONG) to where he cannot walk across a room or talk while sitting up without becoming short of breath. Patient used Combivent and nebulized treatment prior to hospitalization without improvement. Additionally, he has a productive cough with whitish sputum. He has had no fevers, chills, or night sweats. He reports feeling like he is wheezing, but no dyspnea at rest ( as long as he is lying down). he reported orthopnea, and paroxysmal nocturnal dyspnea. No hx of recurrent pneumonia. He has no sick contact, TB exposure ( that he knows of ie incarcerated, homeless). He also has no pets, has not been around any farm animals, and has not traveled recently or been around those who have. 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 Past History Past Medical History: CAD, COPD, heart failure, hypertension, other (asthma, PE , defibrillator, and sleep apnea,) Past Surgical History: Other (defibrillator placement) Social history: denies: smoking, alcohol abuse Family history: CAD, hypertension Medications and Allergies Allergies Allergy/AdvReac Type Severity Reaction Status Date / Time cephalexin monohydrate Allergy Hives Verified 03/09/15 22:20 [From Keflex] lidocaine Allergy Hives Verified 03/09/15 22:20 mushrooms Allergy Swelling Uncoded 06/26/15 12:23 Home Medications Medication Instructions Recorded Confirmed Last Taken Type Ferrous Sulfate [Feosol 325 MG tab] 325 mg PO BID 05/19/15 07/06/17 1 Day Ago History Magnesium Oxide 400 mg PO DAILY 08/31/16 07/06/17 1 Day Ago History ISOSORBIDE MONOnitrate [Imdur ER] 30 mg PO DAILY #30 tablet 12/14/16 07/06/17 1 Day Ago Rx Insulin Glargine,Hum.rec.anlog 20 units SQ QHS #5 pen 02/06/17 07/06/17 1 Day Ago Rx [Lantus Solostar] Fluticasone/Salmeterol [Advair 1 each IH PRN PRN 03/06/17 07/06/17 1 Day Ago History Diskus 500-50 mcg] Ipratropium/Albuter (Nf) 2 puff IH BID 03/06/17 07/06/17 1 Day Ago History [Combivent Inhaler] glipiZIDE [Glucotrol] 10 mg PO QDAY 03/16/17 07/06/17 1 Day Ago History Apixaban [Eliquis] 5 mg PO Q12HR #60 tablet 06/10/17 07/06/17 Unknown Rx Aspirin [Aspirin BABY CHEW TAB] 81 mg PO QDAY tab.chew 06/10/17 07/06/17 Unknown Rx Bumetanide [Bumex 1 mg tab] 2 mg PO BID #60 tab 06/10/17 07/06/17 Unknown Rx Carvedilol [Coreg] 25 mg PO BID #60 tablet 06/10/17 07/06/17 Unknown Rx Lisinopril [Zestril TAB] 2.5 mg PO QDAY #30 tablet 06/10/17 07/06/17 Unknown Rx Metolazone 5 mg PO 1XW #10 tablet 06/10/17 07/06/17 Unknown Rx Potassium Chloride [K-Dur] 40 meq PO BID #8 tab 06/10/17 07/06/17 Unknown Rx Potassium Chloride [K-Dur] 40 meq PO QDAY #26 tablet 06/10/17 07/06/17 Unknown Rx Active Meds: Active Medications Al Hydrox/Mg Hydrox/Simethicone (Alum-Mag Hydrox-Simeth [id number]/5ml) 30 ml PO Q4H PRN PRN Reason: Indigestion Albuterol (Proventil) 2.5 mg IH Q3HRT PRN PRN Reason: Shortness Of Breath Albuterol/Ipratropium (Duoneb *Not For Prn Use*) 1 ampul IH Q6HRT ROBERT Apixaban (Eliquis) 5 mg PO Q12HR ROBERT PRN Reason: Protocol Aspirin (Baby Aspirin) 81 mg PO QDAY [facility] Bisacodyl (Dulcolax) 10 mg [place] QDAY PRN PRN Reason: constipation unrelieved by MOM Carvedilol (Coreg) 25 mg PO BID [facility] Ferrous Sulfate (Feosol) 325 mg PO BID ROBERT Glipizide (Glucotrol) 10 mg PO QDAY [facility] Levofloxacin/Dextrose (Levaquin 500mg/100ml) 500 mg in 100 mls @ 100 mls/hr IV Q24HR ROBERT PRN Reason: Protocol Isosorbide Mononitrate (Imdur) 30 mg PO DAILY [facility] Lisinopril (Zestril) 2.5 mg PO QDAY [facility] Magnesium Oxide (Mag-Ox) 400 mg PO DAILY [facility] Methylprednisolone Sodium Succinate (Solu-Medrol) 40 mg IV Q6H ROBERT Metolazone (Zaroxolyn) 5 mg PO 1XW [facility] Miscellaneous Medication (Fluticasone/Salmeterol [Advair Diskus 500-50 Mcg]) 1 each IH PRN PRN PRN Reason: Shortness Of Breath Morphine Sulfate (Morphine) 2 mg IV Q4H PRN PRN Reason: Pain, Moderate (4-6) Ondansetron HCl (Zofran) 4 mg IM Q4H PRN PRN Reason: Nausea And Vomiting Potassium Chloride (K-Dur) 40 meq PO QDAY [facility] Potassium Chloride (K-Dur) 40 meq PO BID [facility] Review of Systems Constitutional: no weight loss, no weight gain, no fever, no chills, no night sweats Ears, nose, mouth and throat: no ear discharge, no tinnitis, no decreased hearing, no nose pain, no nasal congestion, no nasal discharge, no sinus pressure Cardiovascular: shortness of breath, dyspnea on exertion, paroxysmal nocturnal dyspnea, no palpitations, no rapid/irregular heart beat, no edema, no syncope, no lightheadedness Respiratory: shortness of breath, dyspnea on exertion, no cough with sputum, no excessive sputum, no hemoptysis Gastrointestinal: no abdominal pain, no nausea, no vomiting, no diarrhea, no constipation Genitourinary Male: no hematuria, no flank pain, no discharge, no urinary frequency, no urinary hesitancy Rectal: no pain, no incontinence, no bleeding Musculoskeletal: no neck pain, no shooting arm pain, no arm numbness/tingling, no low back pain Integumentary: no pruritis, no redness, no sores, no wounds, no jaundice Neurological: no transient paralysis, no paralysis, no weakness, no numbness Psychiatric: no memory loss, no change in sleep habits, no sleep disturbances, no insomnia, no hypersomnia Endocrine: no heat intolerance, no polyphagia, no excessive thirst, no polydipsia, no polyuria, no nocturia Hematologic/Lymphatic: no easy bruising, no easy bleeding Allergic/Immunologic: no urticaria, no allergic rhinitis Exam - Constitutional Vitals: Temp Pulse Resp BP Pulse Ox 98.4 F 70 23 140/79 98 07/06/17 00:34 07/06/17 06:00 07/06/17 06:00 07/06/17 06:00 07/06/17 06:00 General appearance: Present: mild distress, other (Patient on 2LNC with SPO2 >97 %) - EENT Eyes: Present: PERRL ENT: hearing intact - Neck Neck: Present: supple - Respiratory Respiratory effort: normal Respiratory: bilateral: wheezing - Cardiovascular Rhythm: regular Heart Sounds: Present: S1 & S2 - Extremities Extremities: no ischemia Extremity abnormal: edema (lower extremity) - Abdominal General gastrointestinal: Present: soft, non-tender Male genitourinary: Present: deferred - Rectal Rectal Exam: deferred - Integumentary Integumentary: Present: clear, warm, dry - Musculoskeletal Musculoskeletal: strength equal bilaterally - Psychiatric Psychiatric: appropriate mood/affect - Neurologic Neurologic: CNII-XII intact - Allied Health Allied health notes reviewed: nursing Results - Labs CBC & Chem 7: 07/06/17 00:32 07/06/17 00:32 Labs: Laboratory Last Values WBC 9.1 K/mm3 (4.5-11.0) 07/06/17 00:32 RBC 3.85 M/mm3 (3.65-5.03) 07/06/17 00:32 Hgb 12.4 gm/dl (11.8-15.2) 07/06/17 00:32 Hct 36.5 % (35.5-45.6) 07/06/17 00:32 MCV 95 fl (84-94) H 07/06/17 00:32 MCH 32 pg (28-32) 07/06/17 00:32 MCHC 34 % (32-34) 07/06/17 00:32 RDW 17.3 % (13.2-15.2) H 07/06/17 00:32 Plt Count 216 K/mm3 (140-440) 07/06/17 00:32 Lymph % (Auto) 20.8 % (13.4-35.0) 07/06/17 00:32 [place]ury % (Auto) 5.2 % (0.0-7.3) 07/06/17 00:32 Eos % (Auto) 0.9 % (0.0-4.3) 07/06/17 00:32 Baso % (Auto) 0.8 % (0.0-1.8) 07/06/17 00:32 Lymph # 1.9 K/mm3 (1.2-5.4) 07/06/17 00:32 Maury # 0.5 K/mm3 (0.0-0.8) 07/06/17 00:32 Eos # 0.1 K/mm3 (0.0-0.4) 07/06/17 00:32 Baso # 0.1 K/mm3 (0.0-0.1) 07/06/17 00:32 Seg Neutrophils % 72.3 % (40.0-70.0) H 07/06/17 00:32 Seg Neutrophils # 6.6 K/mm3 (1.8-7.7) 07/06/17 00:32 D-Dimer 454.58 ng/mlDDU (0-234) H 07/06/17 01:34 Sodium 140 mmol/L (137-145) 07/06/17 00:32 Potassium 3.0 mmol/L (3.6-5.0) L 07/06/17 00:32 Chloride 97.4 mmol/L (98-107) L 07/06/17 00:32 Carbon Dioxide 28 mmol/L (22-30) 07/06/17 00:32 Anion Gap 18 mmol/L 07/06/17 00:32 BUN 10 mg/dL (9-20) 07/06/17 00:32 Creatinine 1.5 mg/dL (0.8-1.5) 07/06/17 00:32 Estimated GFR 50 ml/min 07/06/17 00:32 BUN/Creatinine Ratio 6.66 % 07/06/17 00:32 Glucose 161 mg/dL (75-100) H 07/06/17 00:32 Calcium 9.2 mg/dL (8.4-10.2) 07/06/17 00:32 Magnesium 1.90 mg/dL (1.7-2.3) 07/06/17 00:32 Troponin T < 0.010 ng/mL (0.00-0.029) 07/06/17 00:32 NT-Pro-B Natriuret Pep 3121 pg/mL (0-450) H 07/06/17 00:32 - Imaging and Cardiology Chest x-ray: image reviewed (mild bilateral lower lung atelectasis) CT scan - chest: image reviewed (Unremarkable ) Assessment and Plan Assessment and plan: Patient is a 46-year-old black male with a past medical history of asthma, PE, CHF, COPD, CAD, defibrillator, hypertension, sleep apnea , and previous episodes of renal insufficiency who presents to the hospital with complains of shortness of breath 1 day. ASSESSMENT/PLAN Acute respiratory failure with hypoxia Patient oxygen saturation improved with 4LNC. Patient currently on 2LNC with SPO2 97%. No acute respiratory distress noted. Aggressive Nebulizers/Inhalers ABG when necessary Oxygen supplement Supportive care Acute exacerbation of chronic obstructive pulmonary disease (COPD), Continue on Duoneb every 6 hours Wean IV steroid Solumedrol Continue on empiric treatment of IV Levaquin. Oxygen as necessary Acute on chronic combined systolic and diastolic heart failure Echocardiogram with EF of 10%-15%. Continue on Diuresis, beta blockers and ACEI/ARB Strict I&O's and daily weights Low-sodium/cardiac diet, fluid restriction 1200 mg every 24 hours Closely monitor electrolytes Cardiology evaluation Dilated nonischemic cardiomyopathy EF 10-15%. Presence of AICD ([employer]). Patient with normal coronaries by [facility] 09/2015 Cardiology evaluation Elevated D-wili Negative VQ scan closely monitor Hypertension We will resume home antihypertensive medications Closely monitor blood pressure Diabetes mellitus Accu-Chek before meals and at bedtime Sliding scale insulin/NovoLog Hypokalemia Replaced repeat BMP Closely monitor electrolytes BRITTON/OHS/Morbid obesity BMI>52.2 NIPPV QHS, Weight loss counselling done Nutrition consult. DVT/Prophylaxis Lovenox Advance Directives: Yes VTE prophylaxis?: Chemical Contraindication Mechanical VTE Prophylaxis: Contraindicated Plan of care discussed with patient/family: Yes
[2017-07-06] MEDS ORDERED: ELIQUIS PO SCH (10:00)
[2017-07-06] MEDS ORDERED: K-DUR PO SCH ×3 (10:00)
[2017-07-06] MEDS: GLUCOTROL PO SCH (11:05)
[2017-07-06] MEDS: BABY ASPIRIN PO SCH (11:05)
[2017-07-06] MEDS: FEOSOL PO SCH ×2 (11:05→22:36)
[2017-07-06] MEDS: MAG-OX PO SCH (11:05)
[2017-07-06] MEDS: IMDUR PO SCH (11:05)
[2017-07-06] MEDS: COREG PO SCH ×2 (11:17→22:36)
[2017-07-06] MEDS: ZESTRIL PO SCH (11:18)
[2017-07-06] MEDS: LEVAQUIN 500MG/100ML 500 MG/100 ML BAG IV SCH (11:40)
[2017-07-06] MEDS ORDERED: ZAROXOLYN PO SCH (13:00)
[2017-07-06] MEDS: DUONEB *Not for PRN Use IH SCH ×2 (14:39→20:23)
[2017-07-06] MEDS: PULMICORT IH SCH (20:23)
[2017-07-06] MEDS: BROVANA NEBU IH SCH (20:23)
[2017-07-06] MEDS: LASIX IV SCH (22:35)
[2017-07-07] MEDS: DUONEB *Not for PRN Use IH SCH ×4 (01:30→20:34)
[2017-07-07] MEDS: LASIX IV SCH ×2 (05:29→17:06)
[2017-07-07 06:47] LABS: Basophils % (Auto) 0.1 % (0.0-1.8); Hematocrit 37.8 % (35.5-45.6); Hemoglobin 12.7 gm/dl (11.8-15.2); Mean Corpuscular HGB Conc 34 % (32-34); Mean Corpuscular Hemoglobin 32 pg (28-32); Mean Corpuscular Volume 95 fl (84-94); Platelet Count 207 K/mm3 (140-440); Red Blood Count 3.99 M/mm3 (3.65-5.03); Red Cell Distribution Width 17.4 % (13.2-15.2)
[2017-07-07 07:26] LABS: BUN/Creatinine Ratio 13.07; Calcium 9.7 mg/dL (8.4-10.2); Chloride 92.2 mmol/L (98-107); Potassium 4.1 mmol/L (3.6-5.0)
[2017-07-07] MEDS: PULMICORT IH SCH ×2 (07:50→20:34)
[2017-07-07] MEDS: BROVANA NEBU IH SCH ×2 (07:50→20:34)
[2017-07-07] MEDS ORDERED: ZITHROMAX 500 MG in NACL 0.9% 250ML 250 ML IV SCH (10:00)
--- NOTE | 2017-07-07 10:13 | Progress Note ---
Assessment and Plan Assessment and plan: Patient is a 46-year-old black male with a past medical history of asthma, PE, CHF, COPD, CAD, defibrillator, hypertension, sleep apnea , and previous episodes of renal insufficiency who presents to the hospital with complains of shortness of breath 1 day. Acute respiratory failure with hypoxia Continue oxygen supplementation, wean off oxygen as tolerated Acute exacerbation of chronic obstructive pulmonary disease (COPD), Treat with steroids, aggressive nebulizer treatments and empiric antibiotics Acute on chronic combined systolic and diastolic heart failure Echocardiogram with EF of 10%-15%. Continue on IV Diuresis, beta blockers and ACEI/ARB Strict I&O's and daily weights Low-sodium/cardiac diet, fluid restriction 1200 mg every 24 hours Closely monitor electrolytes Cardiology evaluation Dilated nonischemic cardiomyopathy EF 10-15%. Presence of AICD (Medtronic). Patient with normal coronaries by [facility] 09/2015 Cardiology evaluation Elevated D-dimer Negative VQ scan , check venous dopplers closely monitor Hypertension We will resume home antihypertensive medications Closely monitor blood pressure Diabetes mellitus Accu-Chek before meals and at bedtime Sliding scale insulin/NovoLog Hypokalemia Replaced and normalized BRITTON/OHS/Morbid obesity BMI>52.2 NIPPV QHS, Weight loss counselling done Nutrition consult. 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 and diuresis DVT/Prophylaxis Lovenox History Interval history: Shortness of breath is improved, has some orthopnea, and mild pedal edema Hospitalist Physical - Physical exam Narrative exam: General.: Appears well, mild distress, nontoxic, obese HEENT: Moist mucous membranes, extraocular muscles intact, no lymphadenopathy Neck: supple Cardiac: S1-S2 heard Lungs: Bibasilar crackles and wheezing throughout Abdomen: soft , nontender, nondistended, bowel sounds positive Extremities: 1+ bipedal edema Skin: no rash or lesions Neurologic: no gross focal deficits Psych: appropriate behavior, appropriate mood, corporative, judgment intact - Constitutional Vitals: Temp Pulse Resp BP Pulse Ox 97.7 F 53 L 22 125/76 100 07/07/17 08:04 07/07/17 08:04 07/07/17 08:04 07/07/17 08:04 07/07/17 08:04 General appearance: Present: mild distress, other (Patient on 2LNC with SPO2 >97 %) Results - Labs CBC & Chem 7: 07/07/17 05:52 07/08/17 06:01 Labs: Laboratory Last Values WBC 11.0 K/mm3 (4.5-11.0) 07/07/17 05:52 RBC 3.99 M/mm3 (3.65-5.03) 07/07/17 05:52 Hgb 12.7 gm/dl (11.8-15.2) 07/07/17 05:52 Hct 37.8 % (35.5-45.6) 07/07/17 05:52 MCV 95 fl (84-94) H 07/07/17 05:52 MCH 32 pg (28-32) 07/07/17 05:52 MCHC 34 % (32-34) 07/07/17 05:52 RDW 17.4 % (13.2-15.2) H 07/07/17 05:52 Plt Count 207 K/mm3 (140-440) 07/07/17 05:52 Lymph % (Auto) 8.6 % (13.4-35.0) L 07/07/17 05:52 [place] % (Auto) 5.6 % (0.0-7.3) 07/07/17 05:52 Eos % (Auto) 0.0 % (0.0-4.3) 07/07/17 05:52 Baso % (Auto) 0.1 % (0.0-1.8) 07/07/17 05:52 Lymph # 0.9 K/mm3 (1.2-5.4) L 07/07/17 05:52 [place] # 0.6 K/mm3 (0.0-0.8) 07/07/17 05:52 Eos # 0.0 K/mm3 (0.0-0.4) 07/07/17 05:52 Baso # 0.0 K/mm3 (0.0-0.1) 07/07/17 05:52 Seg Neutrophils % 85.7 % (40.0-70.0) H 07/07/17 05:52 Seg Neutrophils # 9.4 K/mm3 (1.8-7.7) H 07/07/17 05:52 D-Dimer 454.58 ng/mlDDU (0-234) H 07/06/17 01:34 Sodium 133 mmol/L (137-145) L 07/07/17 05:52 Potassium 4.1 mmol/L (3.6-5.0) D 07/07/17 05:52 Chloride 92.2 mmol/L (98-107) L 07/07/17 05:52 Carbon Dioxide 24 mmol/L (22-30) 07/07/17 05:52 Anion Gap 21 mmol/L 07/07/17 05:52 BUN 17 mg/dL (9-20) 07/07/17 05:52 Creatinine 1.3 mg/dL (0.8-1.5) 07/07/17 05:52 Estimated GFR 59 ml/min 07/07/17 05:52 BUN/Creatinine Ratio 13.07 % 07/07/17 05:52 Glucose 216 mg/dL (75-100) H 07/07/17 05:52 POC Glucose 205 (70-105) H 07/07/17 08:09 Calcium 9.7 mg/dL (8.4-10.2) 07/07/17 05:52 Magnesium 1.90 mg/dL (1.7-2.3) 07/06/17 00:32 Troponin T < 0.010 ng/mL (0.00-0.029) 07/06/17 00:32 NT-Pro-B Natriuret Pep 3121 pg/mL (0-450) H 07/06/17 00:32 - Imaging and Cardiology Chest x-ray: image reviewed (bibasal atelectasis)
[2017-07-07] MEDS: FEOSOL PO SCH ×2 (11:11→21:58)
[2017-07-07] MEDS: ZESTRIL PO SCH (11:11)
[2017-07-07] MEDS: IMDUR PO SCH (11:11)
[2017-07-07] MEDS: BABY ASPIRIN PO SCH (11:12)
[2017-07-07] MEDS: COREG PO SCH ×2 (11:12→21:57)
[2017-07-07] MEDS: MAG-OX PO SCH (11:12)
[2017-07-07] MEDS: GLUCOTROL PO SCH (11:13)
[2017-07-07] MEDS: LEVAQUIN 500MG/100ML 500 MG/100 ML BAG IV SCH (12:40)
--- NOTE | 2017-07-07 13:01 | Consultation ---
History of Present Illness Consult date: 07/07/17 Consult reason: shortness of breath History of present illness: 46 YO man with long standing h/o non ischemic cardiomyopathy s/p [employer]-D, prior pulmonary embolism, VT/VF, htn, DM and morbid obesity who presented to hospital with worsening dyspnea. He reports increasing exertional dyspnea, PND, orthopnea, LE edema and chest tightness. He reports that he has been compliant with medical therapy and fluid restriction. He has not had any syncope, pre- syncope, or ICD shocks. Past History Past Medical History: COPD, heart failure, hypertension, other (asthma, PE, defibrillator, and sleep apnea,) Past Surgical History: Other (defibrillator placement) Social history: denies: smoking, alcohol abuse Family history: CAD, hypertension Medications and Allergies Allergies Allergy/AdvReac Type Severity Reaction Status Date / Time cephalexin monohydrate Allergy Hives Verified 03/09/15 22:20 [From Keflex] lidocaine Allergy Hives Verified 03/09/15 22:20 mushrooms Allergy Swelling Uncoded 06/26/15 12:23 Home Medications Medication Instructions Recorded Confirmed Last Taken Type Ferrous Sulfate [Feosol 325 MG tab] 325 mg PO BID 05/19/15 07/06/17 1 Day Ago History Magnesium Oxide 400 mg PO DAILY 08/31/16 07/06/17 1 Day Ago History ISOSORBIDE MONOnitrate [Imdur ER] 30 mg PO DAILY #30 tablet 12/14/16 07/06/17 1 Day Ago Rx Insulin Glargine,Hum.rec.anlog 20 units SQ QHS #5 pen 02/06/17 07/06/17 1 Day Ago Rx [Lantus Solostar] Fluticasone/Salmeterol [Advair 1 each IH PRN PRN 03/06/17 07/06/17 1 Day Ago History Diskus 500-50 mcg] Ipratropium/Albuter (Nf) 2 puff IH BID 03/06/17 07/06/17 1 Day Ago History [Combivent Inhaler] glipiZIDE [Glucotrol] 10 mg PO QDAY 03/16/17 07/06/17 1 Day Ago History Apixaban [Eliquis] 5 mg PO Q12HR #60 tablet 06/10/17 07/06/17 Unknown Rx Aspirin [Aspirin BABY CHEW TAB] 81 mg PO QDAY tab.chew 06/10/17 07/06/17 Unknown Rx Bumetanide [Bumex 1 mg tab] 2 mg PO BID #60 tab 06/10/17 07/06/17 Unknown Rx Carvedilol [Coreg] 25 mg PO BID #60 tablet 06/10/17 07/06/17 Unknown Rx Lisinopril [Zestril TAB] 2.5 mg PO QDAY #30 tablet 06/10/17 07/06/17 Unknown Rx Metolazone 5 mg PO 1XW #10 tablet 06/10/17 07/06/17 Unknown Rx Potassium Chloride [K-Dur] 40 meq PO BID #8 tab 06/10/17 07/06/17 Unknown Rx Potassium Chloride [K-Dur] 40 meq PO QDAY #26 tablet 06/10/17 07/06/17 Unknown Rx Active Meds: Active Medications Al Hydrox/Mg Hydrox/Simethicone (Alum-Mag Hydrox-Simeth [id number]/5ml) 30 ml PO Q4H PRN PRN Reason: Indigestion Albuterol (Proventil) 2.5 mg IH Q3HRT PRN PRN Reason: Shortness Of Breath Albuterol/Ipratropium (Duoneb *Not For Prn Use*) 1 ampul IH Q6HRT [facility] Last Admin: 07/07/17 10:09 Dose: Not Given Arformoterol Tartrate (Brovana Nebu) 15 mcg IH Q12HRT [facility] Last Admin: 07/07/17 07:50 Dose: 15 mcg Aspirin (Baby Aspirin) 81 mg PO QDAY [facility] Last Admin: 07/07/17 11:12 Dose: 81 mg Bisacodyl (Dulcolax) 10 mg NM QDAY PRN PRN Reason: constipation unrelieved by MOM Budesonide (Pulmicort) 1 mg IH Q12HRT [facility] Last Admin: 07/07/17 07:50 Dose: 1 mg Carvedilol (Coreg) 25 mg PO BID [facility] Last Admin: 07/07/17 11:12 Dose: 25 mg Enoxaparin Sodium (Lovenox) 40 mg SUB-Q QDAY@2200 [facility] Ferrous Sulfate (Feosol) 325 mg PO BID [facility] Last Admin: 07/07/17 11:11 Dose: 325 mg Furosemide (Lasix) 40 mg IV 0600,1800 [facility] Last Admin: 07/07/17 05:29 Dose: 40 mg Glipizide (Glucotrol) 10 mg PO QDDIAB [facility] Last Admin: 07/07/17 11:13 Dose: Not Given Levofloxacin/Dextrose (Levaquin 500mg/100ml) 500 mg in 100 mls @ 100 mls/hr IV Q24HR [facility] PRN Reason: Protocol Last Admin: 07/07/17 12:40 Dose: 100 mls/hr Azithromycin 500 mg/ Sodium (Chloride) 250 mls @ 250 mls/hr IV Q24HR [facility] Isosorbide Mononitrate (Imdur) 30 mg PO DAILY [facility] Last Admin: 07/07/17 11:11 Dose: 30 mg Lisinopril (Zestril) 2.5 mg PO QDAY [facility] Last Admin: 07/07/17 11:11 Dose: 2.5 mg Magnesium Oxide (Mag-Ox) 400 mg PO DAILY [facility] Last Admin: 07/07/17 11:12 Dose: 400 mg Methylprednisolone Sodium Succinate (Solu-Medrol) 40 mg IV Q6H [facility] Last Admin: 07/07/17 12:40 Dose: 40 mg Metolazone (Zaroxolyn) 5 mg PO Fr [facility] Last Admin: 07/06/17 13:19 Dose: 5 mg Morphine Sulfate (Morphine) 2 mg IV Q4H PRN PRN Reason: Pain, Moderate (4-6) Ondansetron HCl (Zofran) 4 mg IM Q4H PRN PRN Reason: Nausea And Vomiting Review of Systems All systems: negative (per hpi) Physical Examination Vital Signs Pulse Resp Pulse Ox 77 18 97 07/06/17 00:29 07/06/17 00:29 07/06/17 00:29 General appearance: no acute distress HEENT: Positive: PERRL Neck: Positive: JVD/HJR Cardiac: Positive: Reg Rate and Rhythm, Systolic Murmur (II/ HSM apex) Lungs: Positive: Decreased Breath Sounds, Rales Abdomen: Positive: Soft, Active Bowel Sounds Extremities: Present: +1 Edema Results 07/07/17 05:52 07/07/17 05:52 CBC 07/07/17 Range/Units 05:52 WBC 11.0 (4.5-11.0) K/mm3 RBC 3.99 (3.65-5.03) M/mm3 Hgb 12.7 (11.8-15.2) gm/dl Hct 37.8 (35.5-45.6) % Plt Count 207 (140-440) K/mm3 Lymph # 0.9 L (1.2-5.4) K/mm3 [place] # 0.6 (0.0-0.8) K/mm3 Eos # 0.0 (0.0-0.4) K/mm3 Baso # 0.0 (0.0-0.1) K/mm3 Comprehensive Metabolic Panel 07/07/17 Range/Units 05:52 Sodium 133 L (137-145) mmol/L Potassium 4.1 D (3.6-5.0) mmol/L Chloride 92.2 L (98-107) mmol/L Carbon Dioxide 24 (22-30) mmol/L BUN 17 (9-20) mg/dL Creatinine 1.3 (0.8-1.5) mg/dL Glucose 216 H (75-100) mg/dL Calcium 9.7 (8.4-10.2) mg/dL Assessment and Plan Decompensated Systolic heart failure Dilated nonischemic cardiomyopathy, EF 10-15% normal coronaries by [facility] 09/2015 Chronic obstructive pulmonary disease Essential hypertension Type 2 diabetes mellitus Obstructive sleep apnea Presence of [address] [employer]-ICD (Medtronic) Hx of VT/VF 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 Continue medical therapy for NICMP
[2017-07-07] MEDS: LOVENOX SUB-Q SCH (21:57)
[2017-07-08] MEDS: DUONEB *Not for PRN Use IH SCH ×4 (02:50→20:27)
[2017-07-08] MEDS: LASIX IV SCH ×2 (06:36→17:54)
[2017-07-08 07:01] LABS: BUN/Creatinine Ratio 17.69; Calcium 9.8 mg/dL (8.4-10.2); Chloride 87.6 mmol/L (98-107); Potassium 4.1 mmol/L (3.6-5.0)
[2017-07-08] MEDS: PULMICORT IH SCH ×2 (07:49→20:27)
[2017-07-08] MEDS: BROVANA NEBU IH SCH ×2 (07:49→20:27)
[2017-07-08] MEDS ORDERED: PROVENTIL IH PRN (08:00)
[2017-07-08] MEDS: LEVAQUIN 500MG/100ML 500 MG/100 ML BAG IV SCH (09:35)
[2017-07-08] MEDS: COREG PO SCH ×2 (09:36→23:00)
[2017-07-08] MEDS: BABY ASPIRIN PO SCH (09:36)
[2017-07-08] MEDS: GLUCOTROL PO SCH (09:36)
[2017-07-08] MEDS: IMDUR PO SCH (09:37)
[2017-07-08] MEDS: FEOSOL PO SCH ×2 (09:37→23:00)
[2017-07-08] MEDS: ZESTRIL PO SCH (09:38)
[2017-07-08] MEDS: MAG-OX PO SCH (09:38)
--- NOTE | 2017-07-08 10:13 | Vascular Lab Report ---
LOWER EXTREMITY VENOUS DUPLEX: REASON FOR EXAM: Edema of the lower extremities. COMMENTS ON THE RIGHT: All veins visualized are freely compressible without evidence of internal echogenicity. Flow is spontaneous and phasic throughout. Superficial thrombophlebitis noted in the branch of the greater saphenous vein and varicose veins. COMMENTS ON THE LEFT: All veins visualized are freely compressible without evidence of internal echogenicity. Flow is spontaneous and phasic throughout. IMPRESSION: No evidence of acute or chronic deep venous thrombosis in either lower extremity. Superficial thrombophlebitis in the right leg
--- NOTE | 2017-07-08 10:14 | Progress Note ---
Assessment and Plan Assessment and plan: Patient is a 46-year-old black male with a past medical history of asthma, PE, CHF, COPD, CAD, defibrillator, hypertension, sleep apnea , and previous episodes of renal insufficiency who presents to the hospital with complains of shortness of breath 1 day. Acute respiratory failure with hypoxia Continue oxygen supplementation, wean off oxygen as tolerated Acute exacerbation of chronic obstructive pulmonary disease (COPD), Treat with steroids, aggressive nebulizer treatments and empiric antibiotics Acute on chronic combined systolic and diastolic heart failure Echocardiogram with EF of 10%-15%. Continue on IV Diuresis, beta blockers and ACEI/ARB Strict I&O's and daily weights Low-sodium/cardiac diet, fluid restriction 1200 mg every 24 hours Closely monitor electrolytes Cardiology evaluation Dilated nonischemic cardiomyopathy EF 10-15%. Presence of AICD (Medtronic). Patient with normal coronaries by [facility] 09/2015 Cardiology evaluation Elevated D-dimer Negative VQ scan , check venous dopplers closely monitor Hypertension We will resume home antihypertensive medications Closely monitor blood pressure Diabetes mellitus Accu-Chek before meals and at bedtime Sliding scale insulin/NovoLog Hypokalemia Replaced and normalized [place]/OHS/Morbid obesity BMI>52.2 NIPPV QHS, Weight loss counselling done Nutrition consult. 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 and diuresis DVT/Prophylaxis Lovenox History Interval history: Shortness of breath is improved, has some orthopnea, and mild pedal edema Hospitalist Physical - Physical exam Narrative exam: General.: Appears well, mild distress, nontoxic, obese HEENT: Moist mucous membranes, extraocular muscles intact, no lymphadenopathy Neck: supple Cardiac: S1-S2 heard Lungs: Bibasilar crackles and wheezing throughout Abdomen: soft , nontender, nondistended, bowel sounds positive Extremities: 1+ bipedal edema Skin: no rash or lesions Neurologic: no gross focal deficits Psych: appropriate behavior, appropriate mood, corporative, judgment intact - Constitutional Vitals: Temp Pulse Resp BP Pulse Ox 97.9 F 100 H 22 122/77 96 07/08/17 08:17 07/08/17 09:38 07/08/17 08:17 07/08/17 09:38 07/08/17 08:17 General appearance: Present: no acute distress Results - Labs CBC & Chem 7: 07/07/17 05:52 07/08/17 06:01 Labs: Laboratory Last Values WBC 11.0 K/mm3 (4.5-11.0) 07/07/17 05:52 RBC 3.99 M/mm3 (3.65-5.03) 07/07/17 05:52 Hgb 12.7 gm/dl (11.8-15.2) 07/07/17 05:52 Hct 37.8 % (35.5-45.6) 07/07/17 05:52 MCV 95 fl (84-94) H 07/07/17 05:52 MCH 32 pg (28-32) 07/07/17 05:52 MCHC 34 % (32-34) 07/07/17 05:52 RDW 17.4 % (13.2-15.2) H 07/07/17 05:52 Plt Count 207 K/mm3 (140-440) 07/07/17 05:52 Lymph % (Auto) 8.6 % (13.4-35.0) L 07/07/17 05:52 [place] % (Auto) 5.6 % (0.0-7.3) 07/07/17 05:52 Eos % (Auto) 0.0 % (0.0-4.3) 07/07/17 05:52 Baso % (Auto) 0.1 % (0.0-1.8) 07/07/17 05:52 Lymph # 0.9 K/mm3 (1.2-5.4) L 07/07/17 05:52 [place] # 0.6 K/mm3 (0.0-0.8) 07/07/17 05:52 Eos # 0.0 K/mm3 (0.0-0.4) 07/07/17 05:52 Baso # 0.0 K/mm3 (0.0-0.1) 07/07/17 05:52 Seg Neutrophils % 85.7 % (40.0-70.0) H 07/07/17 05:52 Seg Neutrophils # 9.4 K/mm3 (1.8-7.7) H 07/07/17 05:52 D-Dimer 454.58 ng/mlDDU (0-234) H 07/06/17 01:34 Sodium 132 mmol/L (137-145) L 07/08/17 06:01 Potassium 4.1 mmol/L (3.6-5.0) 07/08/17 06:01 Chloride 87.6 mmol/L (98-107) L 07/08/17 06:01 Carbon Dioxide 30 mmol/L (22-30) 07/08/17 06:01 Anion Gap 19 mmol/L 07/08/17 06:01 BUN 23 mg/dL (9-20) H 07/08/17 06:01 Creatinine 1.3 mg/dL (0.8-1.5) 07/08/17 06:01 Estimated GFR 59 ml/min 07/08/17 06:01 BUN/Creatinine Ratio 17.69 % 07/08/17 06:01 Glucose 287 mg/dL (75-100) H 07/08/17 06:01 POC Glucose 333 (70-105) H 07/07/17 22:17 Calcium 9.8 mg/dL (8.4-10.2) 07/08/17 06:01 Magnesium 1.90 mg/dL (1.7-2.3) 07/06/17 00:32 Troponin T < 0.010 ng/mL (0.00-0.029) 07/06/17 00:32 NT-Pro-B Natriuret Pep 3121 pg/mL (0-450) H 07/06/17 00:32
--- NOTE | 2017-07-08 10:49 | Progress Note ---
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 Continue medical therapy for NICMP Subjective Date of service: 07/08/17 Interval history: No cardiac complaints. Dyspnea is improving. Objective Vital Signs Temp Pulse Pulse Resp Resp BP Pulse Ox 07/08/17 09:38 100 H 122/77 07/08/17 09:37 100 H 122/77 07/08/17 09:36 100 H 122/77 07/08/17 08:17 97.9 F 68 22 122/77 96 07/08/17 08:05 69 20 07/08/17 07:53 100 07/08/17 07:50 67 20 07/08/17 04:10 98.4 F 68 20 114/42 94 07/08/17 00:56 98.4 F 61 20 114/58 95 07/07/17 21:30 98.5 F 69 22 141/81 93 07/07/17 20:45 70 20 07/07/17 20:36 65 20 07/07/17 16:28 98.0 F 66 20 128/70 94 07/07/17 14:10 72 20 07/07/17 13:59 71 18 07/07/17 12:32 98.6 F 85 20 137/95 96 - Physical Examination HEENT: Positive: PERRL Neck: Positive: JVD/HJR Cardiac: Positive: Reg Rate and Rhythm Lungs: Positive: Decreased Breath Sounds Abdomen: Positive: Soft, Active Bowel Sounds Extremities: Present: +1 Edema - Labs and Meds Comprehensive Metabolic Panel 07/08/17 Range/Units 06:01 Sodium 132 L (137-145) mmol/L Potassium 4.1 (3.6-5.0) mmol/L Chloride 87.6 L (98-107) mmol/L Carbon Dioxide 30 (22-30) mmol/L BUN 23 H (9-20) mg/dL Creatinine 1.3 (0.8-1.5) mg/dL Glucose 287 H (75-100) mg/dL Calcium 9.8 (8.4-10.2) mg/dL
[2017-07-08] MEDS: NOVOLOG SUB-Q SCH ×2 (17:54→23:01)
[2017-07-08] MEDS: LOVENOX SUB-Q SCH (22:56)
[2017-07-09] MEDS: LASIX IV SCH (05:59)
[2017-07-09 08:11] LABS: BUN/Creatinine Ratio 23.84; Calcium 9.8 mg/dL (8.4-10.2); Chloride 86.7 mmol/L (98-107); Potassium 3.6 mmol/L (3.6-5.0)
[2017-07-09] MEDS: PULMICORT IH SCH ×2 (08:20→20:06)
[2017-07-09] MEDS: DUONEB *Not for PRN Use IH SCH ×3 (08:20→20:06)
[2017-07-09] MEDS: BROVANA NEBU IH SCH ×2 (08:21→20:06)
--- NOTE | 2017-07-09 08:44 | Progress Note ---
Assessment and Plan Assessment and plan: Patient is a 46-year-old black male with a past medical history of asthma, PE, CHF, COPD, CAD, defibrillator, hypertension, sleep apnea , and previous episodes of renal insufficiency who presents to the hospital with complains of shortness of breath 1 day. Acute respiratory failure with hypoxia Continue oxygen supplementation, wean off oxygen as tolerated Acute exacerbation of chronic obstructive pulmonary disease (COPD), Treat with steroids, aggressive nebulizer treatments and empiric antibiotics Acute on chronic combined systolic and diastolic heart failure Echocardiogram with EF of 10%-15%. Continue on IV Diuresis, beta blockers and ACEI/ARB Strict I&O's and daily weights Low-sodium/cardiac diet, fluid restriction 1200 mg every 24 hours Closely monitor electrolytes Cardiology evaluation Dilated nonischemic cardiomyopathy EF 10-15%. Presence of AICD (Medtronic). Patient with normal coronaries by [facility] 09/2015 Cardiology evaluation Elevated D-dimer Negative VQ scan , check venous dopplers closely monitor Hypertension We will resume home antihypertensive medications Closely monitor blood pressure Diabetes mellitus Accu-Chek before meals and at bedtime Sliding scale insulin/NovoLog Hypokalemia Replaced and normalized [place]/OHS/Morbid obesity BMI>52.2 NIPPV QHS, Weight loss counselling done Nutrition consult. 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 and diuresis DVT/Prophylaxis Lovenox History Interval history: Shortness of breath is improved, has some orthopnea, and mild pedal edema Hospitalist Physical - Physical exam Narrative exam: General.: Appears well, mild distress, nontoxic, obese HEENT: Moist mucous membranes, extraocular muscles intact, no lymphadenopathy Neck: supple Cardiac: S1-S2 heard Lungs: Improved air entry Abdomen: soft , nontender, nondistended, bowel sounds positive Extremities: 1+ bipedal edema Skin: no rash or lesions Neurologic: no gross focal deficits Psych: appropriate behavior, appropriate mood, corporative, judgment intact - Constitutional Vitals: Temp Pulse Resp BP Pulse Ox 97.8 F 77 20 141/86 95 07/09/17 04:14 07/09/17 08:33 07/09/17 08:33 07/09/17 04:14 07/09/17 04:14 General appearance: Present: no acute distress Results - Labs CBC & Chem 7: 07/07/17 05:52 07/10/17 05:38 Labs: Laboratory Last Values WBC 11.0 K/mm3 (4.5-11.0) 07/07/17 05:52 RBC 3.99 M/mm3 (3.65-5.03) 07/07/17 05:52 Hgb 12.7 gm/dl (11.8-15.2) 07/07/17 05:52 Hct 37.8 % (35.5-45.6) 07/07/17 05:52 MCV 95 fl (84-94) H 07/07/17 05:52 MCH 32 pg (28-32) 07/07/17 05:52 MCHC 34 % (32-34) 07/07/17 05:52 RDW 17.4 % (13.2-15.2) H 07/07/17 05:52 Plt Count 207 K/mm3 (140-440) 07/07/17 05:52 Lymph % (Auto) 8.6 % (13.4-35.0) L 07/07/17 05:52 [place] % (Auto) 5.6 % (0.0-7.3) 07/07/17 05:52 Eos % (Auto) 0.0 % (0.0-4.3) 07/07/17 05:52 Baso % (Auto) 0.1 % (0.0-1.8) 07/07/17 05:52 Lymph # 0.9 K/mm3 (1.2-5.4) L 07/07/17 05:52 [place] # 0.6 K/mm3 (0.0-0.8) 07/07/17 05:52 Eos # 0.0 K/mm3 (0.0-0.4) 07/07/17 05:52 Baso # 0.0 K/mm3 (0.0-0.1) 07/07/17 05:52 Seg Neutrophils % 85.7 % (40.0-70.0) H 07/07/17 05:52 Seg Neutrophils # 9.4 K/mm3 (1.8-7.7) H 07/07/17 05:52 D-Dimer 454.58 ng/mlDDU (0-234) H 07/06/17 01:34 Sodium 132 mmol/L (137-145) L 07/09/17 06:27 Potassium 3.6 mmol/L (3.6-5.0) 07/09/17 06:27 Chloride 86.7 mmol/L (98-107) L 07/09/17 06:27 Carbon Dioxide 29 mmol/L (22-30) 07/09/17 06:27 Anion Gap 20 mmol/L 07/09/17 06:27 BUN 31 mg/dL (9-20) H 07/09/17 06:27 Creatinine 1.3 mg/dL (0.8-1.5) 07/09/17 06:27 Estimated GFR 59 ml/min 07/09/17 06:27 BUN/Creatinine Ratio 23.84 % 07/09/17 06:27 Glucose 250 mg/dL (75-100) H 07/09/17 06:27 POC Glucose 260 (70-105) H 07/09/17 08:11 Calcium 9.8 mg/dL (8.4-10.2) 07/09/17 06:27 Magnesium 1.90 mg/dL (1.7-2.3) 07/06/17 00:32 Troponin T < 0.010 ng/mL (0.00-0.029) 07/06/17 00:32 NT-Pro-B Natriuret Pep 3121 pg/mL (0-450) H 07/06/17 00:32
[2017-07-09] MEDS: ZESTRIL PO SCH (09:53)
[2017-07-09] MEDS: IMDUR PO SCH (09:53)
[2017-07-09] MEDS: COREG PO SCH ×2 (09:54→21:35)
[2017-07-09] MEDS: GLUCOTROL PO SCH (09:54)
[2017-07-09] MEDS: BABY ASPIRIN PO SCH (09:54)
[2017-07-09] MEDS: FEOSOL PO SCH ×2 (09:54→21:35)
[2017-07-09] MEDS: MAG-OX PO SCH (09:54)
[2017-07-09] MEDS: NOVOLOG SUB-Q SCH ×4 (09:55→21:41)
[2017-07-09] MEDS: LEVAQUIN 500MG/100ML 500 MG/100 ML BAG IV SCH (09:56)
--- NOTE | 2017-07-09 13:13 | Progress Note ---
Assessment and Plan Decompensated Systolic heart failure Dilated nonischemic cardiomyopathy, EF 10-15% normal coronaries by 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 Subjective Date of service: 07/09/17 Interval history: Patient is resting in bed comfortably. His shortness of breath is improving. Objective Vital Signs Temp Pulse Pulse Pulse Resp Resp Resp 07/09/17 10:00 78 78 20 20 07/09/17 08:51 97.8 F 07/09/17 08:49 69 17 07/09/17 08:33 77 20 07/09/17 08:21 83 20 07/09/17 04:14 97.8 F 60 23 07/09/17 01:15 98.0 F 60 22 07/08/17 23:00 67 74 22 22 07/08/17 22:00 75 07/08/17 20:25 18 L 68 H 07/08/17 20:15 98.0 F 67 20 07/08/17 17:09 71 20 07/08/17 13:29 72 18 07/08/17 13:19 74 20 BP Pulse Ox 07/09/17 10:00 98 07/09/17 08:51 07/09/17 08:49 135/72 94 07/09/17 08:33 07/09/17 08:21 07/09/17 04:14 141/86 95 07/09/17 01:15 133/75 94 07/08/17 23:00 122/61 97 07/08/17 22:00 07/08/17 20:25 07/08/17 20:15 122/61 96 07/08/17 17:09 128/72 94 07/08/17 13:29 07/08/17 13:19 - Physical Examination General: No Apparent Distress HEENT: Positive: PERRL Cardiac: Positive: Other (AV paced with PVCs) - Labs and Meds Comprehensive Metabolic Panel 07/09/17 Range/Units 06:27 Sodium 132 L (137-145) mmol/L Potassium 3.6 (3.6-5.0) mmol/L Chloride 86.7 L (98-107) mmol/L Carbon Dioxide 29 (22-30) mmol/L BUN 31 H (9-20) mg/dL Creatinine 1.3 (0.8-1.5) mg/dL Glucose 250 H (75-100) mg/dL Calcium 9.8 (8.4-10.2) mg/dL
[2017-07-09] MEDS: DELTASONE PO SCH (17:50)
[2017-07-09] MEDS ORDERED: LASIX PO SCH (18:00)
[2017-07-09] MEDS: LOVENOX SUB-Q SCH (21:35)
[2017-07-10 04:50] VITALS: BP 115/68
[2017-07-10 06:50] LABS: BUN/Creatinine Ratio 26.92; Calcium 9.3 mg/dL (8.4-10.2); Chloride 88.2 mmol/L (98-107); Potassium 3.9 mmol/L (3.6-5.0)
[2017-07-10] MEDS: DUONEB *Not for PRN Use IH SCH (07:24)
[2017-07-10] MEDS: BROVANA NEBU IH SCH (07:24)
[2017-07-10] MEDS: PULMICORT IH SCH (07:24)
--- NOTE | 2017-07-10 08:33 | Discharge Summary ---
Providers - Providers Date of Admission: 07/06/17 08:35 Attending physician: LYNDON CAMPA MD 07/06/17 15:17 Consult to Physician [CONS] Routine Consulting Provider: OMID ALVARES Reason For Exam: acute CHF Place consult to:: yes Notified:: YES Phone number called:: Primary care physician: [employer]ICER Hospitalization Condition: Stable Hospital course: Patient is a 46-year-old black male with a past medical history of asthma, PE, CHF, COPD, CAD, defibrillator, hypertension, sleep apnea , and previous episodes of renal insufficiency who presents to the hospital with complains of shortness of breath 1 day. He was found to have acute respiratory failure due to CHF and COPD. He was treated with aggressive treatments with steroids, nebulizers and empiric antibiotics. He was treated with oxygen supplementation and noninvasive ventilator. He also received IV diuresis and his medications for his heart disease were continued. There was concern for thromboembolic events, therefore patient had a d-dimer which was positive, he went on to have venous Dopplers and VQ scan that were all negative. His electrolytes were repleted, and he was continued on the rest of his home medications, he clinically improved and was discharged home in improved condition Discharge diagnoses Acute hypoxic respiratory failure Acute exacerbation of COPD Acute exacerbation of chronic systolic heart failure Dilated nonischemic cardiomyopathy Hypertension Type 2 diabetes, insulin-dependent Hypokalemia Hyponatremia Disposition: TO HOME OR SELFCARE Time spent for discharge: 33 minutes Core Measure Documentation - Palliative Care Palliative Care/ Comfort Measures: Not Applicable - Core Measures Any of the following diagnoses?: heart failure - Heart Failure Discharge Requirements BRITTA/ARB for LVSD if EF <40%: Yes Beta brandon at discharge: Yes Exam - Constitutional Vitals: Temp Pulse Resp BP Pulse Ox 97.5 F L 72 18 115/68 97 07/10/17 04:20 07/10/17 07:41 07/10/17 07:41 07/10/17 04:20 07/10/17 04:20 General appearance: Present: no acute distress, well-nourished - EENT Eyes: Present: PERRL ENT: hearing intact, clear oral mucosa - Neck Neck: Present: supple, normal ROM - Respiratory Respiratory effort: normal Respiratory: bilateral: CTA - Cardiovascular Heart Sounds: Present: S1 & S2. Absent: rub, click - Extremities Extremities: pulses symmetrical, No edema Peripheral Pulses: within normal limits - Abdominal General gastrointestinal: Present: soft, non-tender, non-distended, normal bowel sounds Male genitourinary: Present: normal - Integumentary Integumentary: Present: clear, warm, dry - Musculoskeletal Musculoskeletal: gait normal, strength equal bilaterally - Psychiatric Psychiatric: appropriate mood/affect, intact judgment & insight - Neurologic Neurologic: CNII-XII intact, moves all extremities Plan Follow up with: OMID ALVARES MD [Staff Physician] - 7 Days PRIMARY CARE, [Primary Care Provider] - 3-5 Days Prescriptions: Insulin Glargine,Hum.rec.anlog [Lantus Solostar] 20 units SQ QHS #5 pen Aspirin EC [Aspirin Enteric Coated TAB] 81 mg PO QDAY #30 tablet.dr Almanzarmetanide [Bumex 1 mg tab] 2 mg PO BID #60 tab Fluticasone/Salmeterol [Advair Diskus 500-50 mcg] 1 each IH PRN PRN #1 blst.w.dev PRN Reason: Shortness Of Breath Ipratropium/Albuter (Nf) [Combivent Inhaler] 2 puff IH BID #1 inha Potassium Chloride [K-Dur] 40 meq PO QDAY #26 tablet predniSONE [Deltasone] 10 mg PO .TAPER #48 tab Ipratropium/Albuterol Sulfate [DUONEB *Not for PRN Use*] 1 ampul IH TIDRT #120 ampul.neb
--- NOTE | 2017-07-10 08:56 | Progress Note ---
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 Fluid/sodium restriction. Subjective Date of service: 07/10/17 Interval history: Patient is resting in bed comfortably. Patient reports he is diuresing well. Objective Vital Signs Temp Pulse Pulse Pulse Resp Resp Resp 07/10/17 07:41 72 18 07/10/17 07:25 87 18 07/10/17 04:20 97.5 F L 63 20 07/10/17 00:26 98.4 F 61 20 07/09/17 20:20 75 18 07/09/17 20:06 69 18 07/09/17 20:05 97.5 F L 69 20 07/09/17 15:11 82 20 07/09/17 10:00 78 78 20 20 07/09/17 08:57 63 BP Pulse Ox 07/10/17 07:41 07/10/17 07:25 07/10/17 04:20 115/68 97 07/10/17 00:26 117/71 96 07/09/17 20:20 07/09/17 20:06 07/09/17 20:05 115/77 95 07/09/17 15:11 07/09/17 10:00 98 07/09/17 08:57 131/74 96 - Physical Examination General: No Apparent Distress Cardiac: Positive: Other (AV paced) Extremities: Present: +1 Edema - Labs and Meds Comprehensive Metabolic Panel 07/10/17 Range/Units 05:38 Sodium 132 L (137-145) mmol/L Potassium 3.9 (3.6-5.0) mmol/L Chloride 88.2 L (98-107) mmol/L Carbon Dioxide 26 (22-30) mmol/L BUN 35 H (9-20) mg/dL Creatinine 1.3 (0.8-1.5) mg/dL Glucose 213 H (75-100) mg/dL Calcium 9.3 (8.4-10.2) mg/dL
[2017-07-10] MEDS: IMDUR PO SCH (09:10)
[2017-07-10] MEDS: FEOSOL PO SCH (09:10)
[2017-07-10] MEDS: ZESTRIL PO SCH (09:11)
[2017-07-10] MEDS: GLUCOTROL PO SCH (09:11)
[2017-07-10] MEDS: MAG-OX PO SCH (09:11)
[2017-07-10] MEDS: COREG PO SCH (09:12)
[2017-07-10] MEDS: BABY ASPIRIN PO SCH (09:12)
[2017-07-10] MEDS: DELTASONE PO SCH (09:14)
[2017-07-10] MEDS ORDERED: LEVAQUIN PO SCH (10:00)
== END 2017-07-10 10:56 | disposition home or self-care (01) | DRG 291 ==
LOC: ED 00:13 → CC1 08:35 → 4A 13:37
PROVIDERS: ADMIT Internal Medicine; ATTEND Internal Medicine
DX: I11.0 Hypertensive heart disease with heart failure (principal); J96.01 Acute respiratory failure with hypoxia; I50.43 Acute on chronic combined systolic (congestive) and diastolic (congestive) heart failure; J44.1 Chronic obstructive pulmonary disease with (acute) exacerbation; E87.6 Hypokalemia; Z68.43 Body mass index [BMI] 50.0-59.9, adult; Z71.3 Dietary counseling and surveillance; I42.0 Dilated cardiomyopathy; E66.2 Morbid (severe) obesity with alveolar hypoventilation; E11.9 Type 2 diabetes mellitus without complications; Z86.711 Personal history of pulmonary embolism; I25.10 Atherosclerotic heart disease of native coronary artery without angina pectoris; Z88.1 Allergy status to other antibiotic agents; Z91.018 Allergy to other foods; Z79.82 Long term (current) use of aspirin; Z79.899 Other long term (current) drug therapy; Z79.4 Long term (current) use of insulin; Z86.718 Personal history of other venous thrombosis and embolism; M19.072 Primary osteoarthritis, left ankle and foot; M19.071 Primary osteoarthritis, right ankle and foot; Z95.810 Presence of automatic (implantable) cardiac defibrillator; Z90.49 Acquired absence of other specified parts of digestive tract; Z82.49 Family history of ischemic heart disease and other diseases of the circulatory system
CPT/HCPCS: 36415; 71020; 78582; 80048; 82962; 83735; 83880; 84484; 85025; 85379; 93005; 93010; 93970; 94640; 96365; 96366; 96375; A9540; A9558; J1650; J1815; J1940; J1956; J2270; J2405; J2920; J2930; J3475; J7512

== ENCOUNTER 2017-08-01 05:53 | Day surgery (SDC) | payer MEDICAID ==
[2017-08-01 06:56] LABS: Basophils % (Auto) 1.1 % (0.0-1.8); Eosinophils % (Auto) 2.3 % (0.0-4.3); Hematocrit 35.8 % (35.5-45.6); Hemoglobin 12.4 gm/dl (11.8-15.2); Mean Corpuscular HGB Conc 35 % (32-34); Mean Corpuscular Hemoglobin 32 pg (28-32); Mean Corpuscular Volume 92 fl (84-94); Platelet Count 190 K/mm3 (140-440); Red Blood Count 3.91 M/mm3 (3.65-5.03); Red Cell Distribution Width 16.5 % (13.2-15.2); White Blood Count 6.9 K/mm3 (4.5-11.0)
[2017-08-01] MEDS ORDERED: NACL 0.9% 500 ML 500 ML IV SCH (07:00)
[2017-08-01 07:06] LABS: INR 1.09 (0.87-1.13)
[2017-08-01 07:16] LABS: Calcium 8.9 mg/dL (8.4-10.2); Chloride 99.4 mmol/L (98-107); Potassium 3.7 mmol/L (3.6-5.0)
[2017-08-01] MEDS ORDERED: HEPARIN/NS 5000 UNIT/500ML(CATH LAB) 1,000 ML IR ONE (08:33)
[2017-08-01] MEDS ORDERED: CALAN ONE (08:33)
[2017-08-01] MEDS ORDERED: HEPARIN 10,000 UNITS/10 ML ONE (08:33)
[2017-08-01] MEDS ORDERED: NITROGLYCERIN SYRINGE 0 ML ONE (08:34)
[2017-08-01] MEDS ORDERED: VERSED ONE (08:34)
[2017-08-01] MEDS ORDERED: SUBLIMAZE ONE (08:35)
[2017-08-01] MEDS ORDERED: PONTOCAINE IJ ONE (09:00)
--- NOTE | 2017-08-01 09:51 | Short Stay Summary ---
Short Stay Documentation Date of service: 08/01/17 - History H&P: obtained from office - Allergies and Medications Current Medications: Allergies cephalexin monohydrate [From Keflex] Allergy (Verified 08/01/17 08:21) Hives pt states makes skin yellow. lidocaine Allergy (Verified 03/09/15 22:20) Hives mushrooms Allergy (Uncoded 06/26/15 12:23) Swelling Home Medications Medication Instructions Recorded Confirmed Last Taken Type Ferrous Sulfate [Feosol 325 MG tab] 325 mg PO BID 05/19/15 08/01/17 08/01/17 04: 30 History Magnesium Oxide 400 mg PO DAILY 08/31/16 08/01/17 08/01/17 04:30 History ISOSORBIDE MONOnitrate [Imdur ER] 30 mg PO DAILY #30 tablet 12/14/16 08/01/17 04:30 Rx glipiZIDE [Glucotrol] 10 mg PO QDAY 03/16/17 08/01/17 07/31/17 History Apixaban [Eliquis] 5 mg PO Q12HR #60 tablet 06/10/17 08/01/17 Unknown Rx Carvedilol [Coreg] 25 mg PO BID #60 tablet 06/10/17 08/01/17 08/01/17 04:30 Rx Lisinopril [Zestril TAB] 2.5 mg PO QDAY #30 tablet 06/10/17 08/01/17 08/01/17 04 :30 Rx Metolazone 5 mg PO 1XW #10 tablet 06/10/17 08/01/17 07/27/17 Rx Bumetanide [Bumex 1 mg tab] 2 mg PO BID #60 tab 07/09/17 08/01/17 08/01/17 04: 30 Rx Fluticasone/Salmeterol [Advair 1 each IH PRN PRN #1 blst.w.dev 07/09/17 Unknown Rx Diskus 500-50 mcg] Insulin Glargine,Hum.rec.anlog 20 units SQ QHS #5 pen 07/09/17 08/01/17 Rx [Lantus Solostar] Ipratropium/Albuter (Nf) 2 puff IH BID #1 inha 07/09/17 08/01/17 07/31/17 Rx [Combivent Inhaler] Aspirin EC [Aspirin Enteric Coated 325 mg PO QDAY 08/01/17 08/01/17 08/01/17 04: 30 History TAB] Potassium Chloride [K-Dur] 20 meq PO BID 08/01/17 08/01/17 08/01/17 04:30 History Active Medications Sodium Chloride (Nacl 0.9% 500 Ml) 500 mls @ 50 mls/hr IV DIRECT ROBERT Stop: 08/01/17 16:59 Last Admin: 08/01/17 07:48 Dose: 50 mls/hr - Physical exam General appearance: no acute distress Integumentary: no rash HEENT: Atraumatic Lungs: Clear to auscultation Breasts: deferred Heart: Regular rate Gastrointestinal: normal Male Genitourinary: deferred Female Genitourinary: deferred Rectal Exam: deferred Extremities: no ischemia Neurological: Normal gait - Brief post op/procedure progress note Date of procedure: 08/01/17 Pre-op diagnosis: Heart failure Post-op diagnosis: same Procedure: RHC Anesthesia: none Findings: See report Surgeon: OMID ALVARES Estimated blood loss: none Pathology: none Condition: stable - Hospital course Hospital course: Uneventful - Disposition Condition at discharge: Good Disposition: DC-01 TO HOME OR SELFCARE Short Stay Discharge Plan Activity: advance as tolerated Weight Bearing Status: Partial Weight Bearing Diet: low fat, low cholesterol, low salt Wound: keep clean and dry Special Instructions: restrict fluid intake to (64 oz daily) Follow up with: STONE MOSES MD [Primary Care Provider] - 7 Days Prescriptions: hydrALAZINE [Apresoline TAB] 25 mg PO Q8HR #90 tab Isosorbide Dinitrate 10 mg PO Q8H #90 tablet
[2017-08-01 10:03] VITALS: BP 129/70
--- NOTE | 2017-08-01 10:28 | Cardiac Catherization Report ---
RIGHT HEART CATHETERIZATION INDICATION: Recurrent admission for acute decompensated systolic heart failure. PROCEDURE PERFORMED: Right heart catheterization with hemodynamic measurement and oxygen saturation run. DESCRIPTION OF PROCEDURE: After obtaining written consent, the patient was draped using sterile technique. A 6-Spanish vascular sheath was inserted into a right antecubital vein through a previously inserted intravenous line. A 6-Spanish Ashton-Samantha catheter was used to measure right-sided hemodynamics and perform oxygen saturation run. A 6-Spanish multipurpose catheter was used to measure the pulmonary artery pressure as well as the pulmonary capillary wedge pressure as the Ashton-Samantha catheter was short to wedge. No complications occurred during the procedure. Hemostasis was achieved at the end of the procedure using manual pressure. SPECIMEN REMOVED: None. ESTIMATED BLOOD LOSS: Minimal. FINDINGS: 1. HEMODYNAMICS: The mean pulmonary artery pressure was 63 mmHg with a pulmonary artery systolic pressure of 93 mmHg and the pulmonary artery diastolic pressure of 45 mmHg. 2. The mean pulmonary capillary wedge pressure was 39 mmHg. 3. The right ventricular systolic pressure was 98 mmHg with a right ventricular end-diastolic pressure of 31 mmHg. 4. The mean right arterial pressure was 25 mmHg. 5. The calculated cardiac index was 1.97 L per minute per meter sq with a cardiac output of 5.58 L per minute. 6. The aortic saturation was 98% based on the pulse oximeter. 7. The right ventricular saturation was 58%. 8. The right atrial saturation was 58%. 9. The superior vena cava saturation was 61%. 10. The pulmonary artery saturation was 59%. 11. No evidence of an intracardiac shunt. IMPRESSION: 1. Severely elevated right and left-sided filling pressures. 2. Severely elevated pulmonary artery pressure with a mean PA pressure of 63 mmHg. This is consistent with severe pulmonary venous hypertension, i.e. post-capillary pulmonary hypertension. 3. The mean pulmonary capillary wedge pressure is 39 mmHg. 4. The cardiac index is mildly reduced at 1.97. 5. No evidence of an intracardiac shunt. RECOMMENDATIONS: 1. The patient will be recommended for aggressive vasodilator therapy with hydralazine and isosorbide dinitrate. 2. Follow up in the office as indicated. JOB# [id number] EKATERINA/BEATA
== END 2017-08-01 11:00 | disposition home or self-care (01) ==
LOC: CATHLABREC 05:53
PROVIDERS: ATTEND Internal Medicine
DX: I27.20 Pulmonary hypertension, unspecified (principal); R06.02 Shortness of breath; E11.22 Type 2 diabetes mellitus with diabetic chronic kidney disease; F41.9 Anxiety disorder, unspecified; I11.0 Hypertensive heart disease with heart failure; I50.9 Heart failure, unspecified; F32.9 Major depressive disorder, single episode, unspecified; J44.9 Chronic obstructive pulmonary disease, unspecified; I48.91 Unspecified atrial fibrillation; M10.9 Gout, unspecified; I26.99 Other pulmonary embolism without acute cor pulmonale; I50.20 Unspecified systolic (congestive) heart failure; I13.0 Hypertensive heart and chronic kidney disease with heart failure and stage 1 through stage 4 chronic kidney disease, or unspecified chronic kidney disease; N18.3 Chronic kidney disease, stage 3 (moderate); Z95.810 Presence of automatic (implantable) cardiac defibrillator; Z90.49 Acquired absence of other specified parts of digestive tract; Z79.82 Long term (current) use of aspirin
CPT/HCPCS: 36415; 80048; 85025; 85610; 85730; 93005; 93010; 93451; C1894; J1644; J2250; J3010; J7040

== ENCOUNTER 2017-09-05 01:11 | Inpatient (IN) | payer MEDICAID ==
[2017-09-05 01:45] LABS: Basophils % (Auto) 1.3 % (0.0-1.8); Eosinophils % (Auto) 1.2 % (0.0-4.3); Hematocrit 39.3 % (35.5-45.6); Hemoglobin 13.4 gm/dl (11.8-15.2); Mean Corpuscular HGB Conc 34 % (32-34); Mean Corpuscular Hemoglobin 31 pg (28-32); Mean Corpuscular Volume 91 fl (84-94); Platelet Count 193 K/mm3 (140-440); Red Blood Count 4.33 M/mm3 (3.65-5.03); Red Cell Distribution Width 17.3 % (13.2-15.2); White Blood Count 9.6 K/mm3 (4.5-11.0)
[2017-09-05 02:04] LABS: Calcium 8.9 mg/dL (8.4-10.2); Chloride 91.8 mmol/L (98-107)
[2017-09-05 02:18] LABS: Potassium 2.8 mmol/L (3.6-5.0)
[2017-09-05] MEDS ORDERED: TYLENOL #3 PO ONE (02:19)
--- NOTE | 2017-09-05 02:39 | XRay Report ---
FINAL REPORT EXAM: XR CHEST 1V AP HISTORY: dyspnea COMPARISON: June 2017 FINDINGS: Frontal view(s) of the chest obtained. Stable cardiac enlargement. Left-sided cardiac defibrillator is in place. Shallow inspiration with crowding of bronchovascular markings. No dense consolidation or effusion. No pneumothorax. IMPRESSION: Shallow inspiration with crowding of bronchovascular markings. There may be mild central pulmonary congestion. No gross consolidation or effusion.
[2017-09-05] MEDS ORDERED: K-DUR PO ONE ×2 (03:29→11:00)
[2017-09-05] MEDS ORDERED: LASIX IV ONE (04:20)
[2017-09-05] MEDS ORDERED: SUBLIMAZE IV ONE (04:20)
[2017-09-05] MEDS ORDERED: DUONEB *Not for PRN Use IH ONE (04:20)
[2017-09-05] MEDS ORDERED: NITROSTAT SL ONE (04:23)
[2017-09-05] MEDS ORDERED: BABY ASPIRIN PO ONE (04:23)
--- NOTE | 2017-09-05 04:23 | Emergency Department Report ---
HPI - General Chief Complaint: Chest Pain Time Seen by Provider: 09/05/17 03:29 - HPI HPI: The patient's 46-year-old male presents for evaluation of chest pain and dyspnea. The patient reports onset of chest pain or dyspnea at midnight at a syncopal episode. He states that his defibrillator went off. He states that his chest pain has been mild, external, pressure-like in quality, constant since onset 1 hour ago. His shortness of breath has been constant, moderate in severity, exacerbated with physical activity and lying flat, and improves with sitting up. The patient denies fever, trauma to the chest, forceful vomiting, hemoptysis, unilateral leg swelling, recent immobilization, recent cancer. ED Past Medical Hx - Past Medical History Previous Medical History?: Yes Hx Hypertension: Yes Hx Heart Attack/AMI: No Hx Congestive Heart Failure: Yes Hx Diabetes: Yes (oral and insulin) Hx Deep Vein Thrombosis: Yes Hx Pulmonary Embolism: Yes Hx Liver Disease: No Hx Renal Disease: Yes (insufficiency) Hx Sickle Cell Disease: No Hx Arthritis: Yes (Knees, gout) Hx Asthma: Yes Hx COPD: Yes Hx Tuberculosis: No Hx HIV: No Additional medical history: copd; sleep apnea. anemia - Surgical History Past Surgical History?: Yes Hx Coronary Stent: No Hx Pacemaker: Yes Hx Internal Defibrillator: Yes Hx Cholecystectomy: Yes Additional Surgical History: defibrillator - Social History Smoking Status: Former Smoker Substance Use Type: None - Medications Home Medications: Home Medications Medication Instructions Recorded Confirmed Last Taken Type Ferrous Sulfate [Feosol 325 MG tab] 325 mg PO BID 05/19/15 09/05/17 08/01/17 04: 30 History Magnesium Oxide 400 mg PO DAILY 08/31/16 09/05/17 08/01/17 04:30 History glipiZIDE [Glucotrol] 10 mg PO QDAY 03/16/17 09/05/17 07/31/17 History Carvedilol [Coreg] 25 mg PO BID #60 tablet 06/10/17 09/05/17 08/01/17 04:30 Rx Lisinopril [Zestril TAB] 2.5 mg PO QDAY #30 tablet 06/10/17 09/05/17 08/01/17 04 :30 Rx Metolazone 5 mg PO 1XW #10 tablet 06/10/17 09/05/17 07/27/17 Rx Fluticasone/Salmeterol [Advair 1 each IH PRN PRN #1 blst.w.dev 07/09/17 Unknown Rx Diskus 500-50 mcg] Insulin Glargine,Hum.rec.anlog 20 units SQ QHS #5 pen 07/09/17 09/05/17 Rx [Lantus Solostar] Ipratropium/Albuter (Nf) 2 puff IH BID #1 inha 07/09/17 09/05/17 07/31/17 Rx [Combivent Inhaler] Aspirin EC [Aspirin Enteric Coated 325 mg PO QDAY 08/01/17 09/05/17 08/01/17 04: 30 History TAB] Isosorbide Dinitrate 10 mg PO Q8H #90 tablet 08/01/17 09/05/17 Unknown Rx Potassium Chloride [K-Dur] 20 meq PO BID 08/01/17 09/05/17 08/01/17 04:30 History hydrALAZINE [Apresoline TAB] 25 mg PO Q8HR #90 tab 08/01/17 09/05/17 Unknown Rx Allopurinol [Allopurinol] 100 mg PO BID 09/05/17 09/05/17 Unknown History Bumetanide [Bumex 1 mg tab] 1 mg PO BID 09/05/17 09/05/17 Unknown History Torsemide [Torsemide] 100 mg PO QDAY 09/05/17 09/05/17 Unknown History ED Review of Systems ROS: Stated complaint: HEART PT Other details as noted in HPI Constitutional: denies: fever ENT: denies: throat or neck pain Respiratory: reports cough, shortness of breath Cardiovascular: reports: chest pain Endocrine: denies unexplained weight loss or gain Gastrointestinal: denies: abdominal pain, nausea Genitourinary: denies: dysuria Musculoskeletal: denies: leg swelling Skin: denies: rash Neurological: denies: headache Hematological/Lymphatic: denies: easy bleeding or easy bruising Psych: denies sadness or hopelessness Physical Exam - Physical Exam Vital Signs: Vital Signs 09/05/17 09/05/17 09/05/17 01:14 01:16 01:20 Temperature 98.4 F Pulse Rate 75 74 Respiratory 21 15 21 Rate Blood Pressure 130/69 O2 Sat by Pulse 96 96 Oximetry 09/05/17 09/05/17 09/05/17 01:30 01:46 02:00 Temperature Pulse Rate 69 73 69 Respiratory 20 12 16 Rate Blood Pressure 130/69 124/57 O2 Sat by Pulse 97 97 97 Oximetry 09/05/17 09/05/17 09/05/17 02:16 02:30 02:46 Temperature Pulse Rate 70 72 88 Respiratory 13 26 H 28 H Rate Blood Pressure 124/57 124/57 124/57 O2 Sat by Pulse 97 95 95 Oximetry 09/05/17 09/05/17 09/05/17 02:48 03:00 03:16 Temperature Pulse Rate 79 73 Respiratory 22 30 H 28 H Rate Blood Pressure 124/57 136/62 O2 Sat by Pulse 95 96 Oximetry Physical Exam: General: well-nourished, well-developed, no acute distress Head: Normocephalic, atraumatic Eyes: normal sclera ENT: Mucous membranes are pink and moist Neck: trachea midline, neck supple, No neck stiffness, no cervical adenopathy Respiratory: diminished breath sounds, apical wheezing, and bibasilar crackles present Cardio: S1 and S2 present, no murmurs, rubs, gallops, capillary refill is brisk Abdomen: Normoactive bowel sounds, soft abdomen, no rigidity, no guarding or rebound tenderness Chest WALL/Back: No tenderness to palpation of the chest wall, no CVA tenderness with percussion Musc: 1+ bilateral pitting edema Skin: No rash Neuro: no facial drooping, normal speech Psych: Normal affect ED Course Vital Signs 09/05/17 09/05/17 09/05/17 01:14 01:16 01:20 Temperature 98.4 F Pulse Rate 75 74 Respiratory 21 15 21 Rate Blood Pressure 130/69 O2 Sat by Pulse 96 96 Oximetry 09/05/17 09/05/17 09/05/17 01:30 01:46 02:00 Temperature Pulse Rate 69 73 69 Respiratory 20 12 16 Rate Blood Pressure 130/69 124/57 O2 Sat by Pulse 97 97 97 Oximetry 09/05/17 09/05/17 09/05/17 02:16 02:30 02:46 Temperature Pulse Rate 70 72 88 Respiratory 13 26 H 28 H Rate Blood Pressure 124/57 124/57 124/57 O2 Sat by Pulse 97 95 95 Oximetry 09/05/17 09/05/17 09/05/17 02:48 03:00 03:16 Temperature Pulse Rate 79 73 Respiratory 22 30 H 28 H Rate Blood Pressure 124/57 136/62 O2 Sat by Pulse 95 96 Oximetry ED Medical Decision Making - Lab Data Result diagrams: 09/05/17 01:25 09/05/17 01:25 - Medical Decision Making The patient was seen and examined by myself. The patient is placed on a union carpenter and continuous pulse ox. On initial evaluation, the patient was found to be in no distress. EKG was negative for findings suggestive of acute cardiac infarct. The patient is given an aspirin and a nitroglycerin tablet. The patient is given a DuoNeb breathing treatment for treatment of his COPD. Is given IV fentanyl for his pain. Labs and imaging are obtained. Chest x-ray is positive for pulmonary vascular congestion, and cardiomegaly. Lab results revealed elevated BNP and low potassium level, and otherwise were non-revealing including negative troponin. The patient is given IV Lasix for treatment of CHF. The patient was reevaluated and reported that their symptoms were improved. As the patient has chest pain and risk factors for development of acute coronary event, the patient will be admitted for close cardiopulmonary monitoring, serial troponins, and evaluation by cardiology. The on-call hospitalist service was contacted. They agreed to admit the patient for further treatment and close monitoring. The ED admit order was placed. The patient was admitted in guarded condition. Critical care attestation.: If time is entered above; I have spent that time in minutes in the direct care of this critically ill patient, excluding procedure time. ED Disposition Clinical Impression: Acute exacerbation of chronic obstructive pulmonary disease (COPD), Systolic CHF, acute on chronic, Acute chest pain, Syncope and collapse, Acute hypokalemia Disposition: OP ADMIT IP TO THIS HOSP Is pt being admited?: Yes Does the pt Need Aspirin: Yes Condition: Serious Instructions: Chest Pain (ED), Syncope (ED), Chronic Obstructive Pulmonary Disease (ED) Referrals: PRIMARY CARE, [Primary Care Provider] - 3-5 Days Time of Disposition: 04:22
--- NOTE | 2017-09-05 05:46 | History and Physical Report ---
History of Present Illness Date of examination: 09/05/17 History of present illness: 46-year-old man with a history of hypertension, diabetes, gout, BRITTON, COPD, CHF comes to the emergency room complaining of passing out for few seconds. He states that his states he felt his AICD went off. Complains shortness of breath, PND and orthopnea. S/p cardiac cath las month, no blockage Review Of Systems: Constitutional: no fever, chills, weight loss Ears, eyes, nose, mouth and throat: no nasal congestion, no nasal discharge, no sinus pressure, blurry vision, diplopia Neck: No neck pain or rigidity. Cardiovascular: no chest pain, palpitations Respiratory: No cough Gastrointestinal: abdominal pain, hematochezia Genitourinary : no dysuria, frequency , hematuria Musculoskeletal: no joint swelling or muscle ache Integumentary: no rash, no pruritis Neurological: no parathesias, focal weakness Endocrine: no cold or heat intolerance, no polyuria or polydipsia Hematologic/Lymphatic: no easy bruising, no easy bleeding, no gland swelling Allergic/Immunologic: no urticaria, no angioedema. PAST MEDICAL HISTORY:hypertension, diabetes, gout, BRITTON, COPD, CHF PAST SURGICAL HISTORY:AICD, hip replacement, gall bladder SOCIAL HISTORY: Denies alcohol, tobacco, drugs FAMILY HISTORY:cad, DM Medications and Allergies Allergies Allergy/AdvReac Type Severity Reaction Status Date / Time cephalexin monohydrate Allergy Hives Verified 08/01/17 08:21 [From Keflex] lidocaine Allergy Hives Verified 03/09/15 22:20 mushrooms Allergy Swelling Uncoded 06/26/15 12:23 Home Medications Medication Instructions Recorded Confirmed Last Taken Type Ferrous Sulfate [Feosol 325 MG tab] 325 mg PO BID 05/19/15 09/05/17 08/01/17 04: 30 History Magnesium Oxide 400 mg PO DAILY 08/31/16 09/05/17 08/01/17 04:30 History glipiZIDE [Glucotrol] 10 mg PO QDAY 03/16/17 09/05/17 07/31/17 History Carvedilol [Coreg] 25 mg PO BID #60 tablet 06/10/17 09/05/17 08/01/17 04:30 Rx Lisinopril [Zestril TAB] 2.5 mg PO QDAY #30 tablet 06/10/17 09/05/17 08/01/17 04 :30 Rx Metolazone 5 mg PO 1XW #10 tablet 06/10/17 09/05/17 07/27/17 Rx Fluticasone/Salmeterol [Advair 1 each IH PRN PRN #1 blst.w.dev 07/09/17 Unknown Rx Diskus 500-50 mcg] Insulin Glargine,Hum.rec.anlog 20 units SQ QHS #5 pen 07/09/17 09/05/17 Rx [Lantus Solostar] Ipratropium/Albuter (Nf) 2 puff IH BID #1 inha 07/09/17 09/05/17 07/31/17 Rx [Combivent Inhaler] Aspirin EC [Aspirin Enteric Coated 325 mg PO QDAY 08/01/17 09/05/17 08/01/17 04: 30 History TAB] Isosorbide Dinitrate 10 mg PO Q8H #90 tablet 08/01/17 09/05/17 Unknown Rx Potassium Chloride [K-Dur] 20 meq PO BID 08/01/17 09/05/17 08/01/17 04:30 History hydrALAZINE [Apresoline TAB] 25 mg PO Q8HR #90 tab 08/01/17 09/05/17 Unknown Rx Allopurinol [Allopurinol] 100 mg PO BID 09/05/17 09/05/17 Unknown History Bumetanide [Bumex 1 mg tab] 1 mg PO BID 09/05/17 09/05/17 Unknown History Torsemide [Torsemide] 100 mg PO QDAY 09/05/17 09/05/17 Unknown History Exam - Physical Exam Narrative exam: Gen. appearance: Patient lying in bed, no apparent distress HEENT: Normocephalic, atraumatic, pupils equally round and reactive to light, extraocular movement intact, and no sclericterus,. No JVD or thyromegaly or nodule,neck supple, no carotid bruit ,mucous membranes moist, no exudate or erythema Heart: S1, S2, regular rate and rhythm Lungs: Crackles bilaterally, breathing comfortable Abdomen: Positive bowel sounds, nontender, nondistended, no organomegaly Extremity:+ edema, cyanosis, clubbing Skin: No rash, nodules, warm, dry Neuro: Oriented 3, cranial nerves II-12 intact, speech is fluent, motor and sensory intact - Constitutional Vitals: Temp Pulse Resp BP Pulse Ox 98.4 F 80 14 137/78 99 09/05/17 01:14 09/05/17 05:32 09/05/17 05:32 09/05/17 05:30 09/05/17 05:30 Results - Labs CBC & Chem 7: 09/06/17 05:21 09/05/17 13:07 Labs: Abnormal lab results 09/05/17 09/05/17 09/05/17 Range/Units 01:25 01:25 01:25 RDW 17.3 H (13.2-15.2) % [place] % (Auto) 12.4 H (0.0-7.3) % [place] # 1.2 H (0.0-0.8) K/mm3 Potassium 2.8 L* (3.6-5.0) mmol/L Chloride 91.8 L (98-107) mmol/L Glucose 131 H (75-100) mg/dL NT-Pro-B Natriuret Pep (0-450) pg/mL Digoxin 0.4 L (0.9-2.0) ng/mL 09/05/17 Range/Units 02:28 RDW (13.2-15.2) % [place] % (Auto) (0.0-7.3) % [place] # (0.0-0.8) K/mm3 Potassium (3.6-5.0) mmol/L Chloride (98-107) mmol/L Glucose (75-100) mg/dL NT-Pro-B Natriuret Pep 1684 H (0-450) pg/mL Digoxin (0.9-2.0) ng/mL - Imaging and Cardiology EKG: image reviewed Chest x-ray: image reviewed Assessment and Plan Assessment Acute on chronic heart Failure, systolic dysfunction Syncope Hypokalemia COPD Hypertension Diabetes Depression Obstructive sleep apnea Morbid obesity History of pulmonary emboli Plan Admit to medicine Diuresed with IV Lasix, monitor I's and O's, daily weights Start beta brandon, BRITTA inhibitor, aspirin Check cardiac enzymes, d-dimer, consult cardiology Replete potassium Check fingersticks and start insulin sliding scale Continue appropiate outpatient medications DVT prophylaxis
[2017-09-05] MEDS ORDERED: DULCOLAX PR PRN (05:54)
[2017-09-05] MEDS ORDERED: ZOFRAN IV PRN (05:54)
[2017-09-05] MEDS ORDERED: D50W (25GM) Syringe IV PRN (05:54)
[2017-09-05] MEDS ORDERED: MILK OF MAGNESIA PO PRN (05:54)
[2017-09-05] MEDS ORDERED: FLUTICASONE IH PRN (05:58)
[2017-09-05] MEDS ORDERED: SALMETEROL IH PRN (05:58)
[2017-09-05] MEDS ORDERED: PROVENTIL IH PRN (06:11)
[2017-09-05 07:15] LABS: Creatine Kinase MB 1.8 ng/mL (0.0-4.0)
[2017-09-05] MEDS: PULMICORT IH SCH ×2 (07:58→21:40)
[2017-09-05] MEDS: BROVANA NEBU IH SCH ×2 (07:58→21:40)
[2017-09-05] MEDS: DUONEB *Not for PRN Use IH SCH ×3 (07:58→21:40)
[2017-09-05] MEDS: LASIX IV SCH ×2 (08:00→17:02)
[2017-09-05] MEDS ORDERED: KCL 10MEQ/100ML 10 MEQ/100 ML BAG IV ONE (08:07)
[2017-09-05] MEDS: KCL 10MEQ/100ML 10 MEQ/100 ML BAG IV SCH ×2 (08:08→13:47)
[2017-09-05] MEDS: NOVOLOG SUB-Q SCH ×4 (08:40→22:10)
[2017-09-05] MEDS ORDERED: NON-FORMULARY (Ipratropium/Albuter (Nf) 2 PUFF) IH SCH (10:00)
[2017-09-05] MEDS ORDERED: HALFPRIN EC PO SCH (10:00)
--- NOTE | 2017-09-05 10:11 | Consultation ---
History of Present Illness Consult date: 09/05/17 Consult reason: congestive heart failure, known to you, other (ICD discharge) History of present illness: This is a 46yr old male with a long standing history of Nonischemic Cardiomyopathy and has an indwelling cardiac defibrillator. He has a history of VT/VF, prior pulmonary embolism, COPD, BRITTON, HTN, severe Pulmonary Hypertension and obesity. Patient is admitted with syncope and severe hypokalemia with a potassium of 2.8 on presentation. Patient reports feeling of dizziness just before he passed out. Patient reports somewhat disoriented when he came to himself but feels as though his ICD shocked him. He was brought in and admitted for further evaluation. Cardiology consultation was requested. Medications and Allergies Allergies Allergy/AdvReac Type Severity Reaction Status Date / Time cephalexin monohydrate Allergy Hives Verified 08/01/17 08:21 [From Keflex] lidocaine Allergy Hives Verified 03/09/15 22:20 mushrooms Allergy Swelling Uncoded 06/26/15 12:23 Home Medications Medication Instructions Recorded Confirmed Last Taken Type Ferrous Sulfate [Feosol 325 MG tab] 325 mg PO BID 05/19/15 09/05/17 08/01/17 04: 30 History Magnesium Oxide 400 mg PO DAILY 08/31/16 09/05/17 08/01/17 04:30 History glipiZIDE [Glucotrol] 10 mg PO QDAY 03/16/17 09/05/17 07/31/17 History Carvedilol [Coreg] 25 mg PO BID #60 tablet 06/10/17 09/05/17 08/01/17 04:30 Rx Lisinopril [Zestril TAB] 2.5 mg PO QDAY #30 tablet 06/10/17 09/05/17 08/01/17 04 :30 Rx Metolazone 5 mg PO 1XW #10 tablet 06/10/17 09/05/17 07/27/17 Rx Fluticasone/Salmeterol [Advair 1 each IH PRN PRN #1 blst.w.dev 07/09/17 Unknown Rx Diskus 500-50 mcg] Insulin Glargine,Hum.rec.anlog 20 units SQ QHS #5 pen 07/09/17 09/05/17 Rx [Lantus Solostar] Ipratropium/Albuter (Nf) 2 puff IH BID #1 inha 07/09/17 09/05/17 07/31/17 Rx [Combivent Inhaler] Aspirin EC [Aspirin Enteric Coated 325 mg PO QDAY 08/01/17 09/05/17 08/01/17 04: 30 History TAB] Isosorbide Dinitrate 10 mg PO Q8H #90 tablet 08/01/17 09/05/17 Unknown Rx Potassium Chloride [K-Dur] 20 meq PO BID 08/01/17 09/05/17 08/01/17 04:30 History hydrALAZINE [Apresoline TAB] 25 mg PO Q8HR #90 tab 08/01/17 09/05/17 Unknown Rx Allopurinol [Allopurinol] 100 mg PO BID 09/05/17 09/05/17 Unknown History Bumetanide [Bumex 1 mg tab] 1 mg PO BID 09/05/17 09/05/17 Unknown History Torsemide [Torsemide] 100 mg PO QDAY 09/05/17 09/05/17 Unknown History Active Meds: Active Medications Acetaminophen (Tylenol) 650 mg PO Q4H PRN PRN Reason: Pain MILD(1-3)/Fever >100.5/KNIGHT Albuterol (Proventil) 2.5 mg IH Q3HRT PRN PRN Reason: Shortness Of Breath Albuterol/Ipratropium (Duoneb *Not For Prn Use*) 1 ampul IH Q6HRT [facility] Last Admin: 09/05/17 07:58 Dose: Not Given Allopurinol (Zyloprim) 100 mg PO BID [facility] Arformoterol Tartrate (Brovana Nebu) 15 mcg IH Q12HRT [facility] Last Admin: 09/05/17 07:58 Dose: Not Given Aspirin (Ecotrin) 325 mg PO QDAY [facility] Bisacodyl (Dulcolax) 10 mg NC QDAY PRN PRN Reason: Constipation unrelieved by MOM Budesonide (Pulmicort) 1 mg IH Q12HRT [facility] Last Admin: 09/05/17 07:58 Dose: Not Given Carvedilol (Coreg) 25 mg PO BID [facility] Dextrose (D50w (25gm) Syringe) 50 ml IV PRN PRN PRN Reason: Hypoglycemia Enoxaparin Sodium (Lovenox) 40 mg SUB-Q QDAY [facility] Ferrous Sulfate (Feosol) 325 mg PO BID [facility] Furosemide (Lasix) 40 mg IV BID@0600,1800 [facility] Last Admin: 09/05/17 08:00 Dose: Not Given Glipizide (Glucotrol) 10 mg PO QDDIAB [facility] Insulin Aspart (Novolog) 0 units SUB-Q ACHS ROBERT PRN Reason: Protocol Insulin Detemir (Levemir) 20 units SUB-Q QHS [facility] Lisinopril (Zestril) 2.5 mg PO QDAY [facility] Magnesium Hydroxide (Milk Of Magnesia) 30 ml PO Q4H PRN PRN Reason: Constipation Magnesium Oxide (Mag-Ox) 400 mg PO DAILY [facility] Ondansetron HCl (Zofran) 4 mg IV Q8H PRN PRN Reason: N/V unrelieved by Reglan Potassium Chloride (K-Dur) 40 meq PO NOW ONE Stop: 09/05/17 09:36 Physical Examination Vital Signs Temp Pulse Resp BP Pulse Ox 98.4 F 75 21 130/69 96 09/05/17 01:14 09/05/17 01:14 09/05/17 01:14 09/05/17 01:14 09/05/17 01:14 General appearance: no acute distress HEENT: Positive: PERRL Neck: Positive: trachea midline Cardiac: Positive: Other (AV paced) Lungs: Positive: Decreased Breath Sounds Neuro: Positive: Grossly Intact Results 09/05/17 01:25 09/05/17 01:25 Cardiac Enzymes 09/05/17 Range/Units 06:46 CK-MB (CK-2) 1.8 (0.0-4.0) ng/mL Lipids 09/05/17 Range/Units 06:46 Triglycerides 118 (2-149) mg/dL Cholesterol 131 (50-199) mg/dL HDL Cholesterol 26 L (40-59) mg/dL Cholesterol/HDL Ratio 5.03 % Assessment and Plan Syncope Hypokalemia Dilated nonischemic cardiomyopathy, EF 10-15% normal coronaries by [facility] 09/2015 Chronic obstructive pulmonary disease Severe Pulmonary Hypertension Essential hypertension Type 2 diabetes mellitus Obstructive sleep apnea Presence of PRESCHOOL TEACHER-ICD (Medtronic) Hx of VT/VF
[2017-09-05] MEDS: FEOSOL PO SCH ×2 (10:46→22:09)
[2017-09-05] MEDS: ZESTRIL PO SCH (10:47)
[2017-09-05] MEDS: MAG-OX PO SCH (10:48)
[2017-09-05] MEDS: ZYLOPRIM PO SCH ×2 (10:48→22:09)
[2017-09-05] MEDS: COREG PO SCH ×2 (10:48→22:09)
[2017-09-05] MEDS: LOVENOX SUB-Q SCH (10:49)
[2017-09-05 13:59] LABS: Anion Gap 14 mmol/L; BUN/Creatinine Ratio 11; Blood Urea Nitrogen 13 mg/dL (9-20); Calcium 9.1 mg/dL (8.4-10.2); Carbon Dioxide 33 mmol/L (22-30); Chloride 94.4 mmol/L (98-107); Glucose 181 mg/dL (75-100); Sodium 138 mmol/L (137-145)
[2017-09-05] MEDS: GLUCOTROL PO SCH (14:01)
[2017-09-05 14:04] LABS: Creatine Kinase MB 1.7 ng/mL (0.0-4.0)
--- NOTE | 2017-09-05 21:06 | Event Note ---
Date: 09/05/17 Patient was admitted this morning with acute on chronic systolic failure syncope Workup is in progress, agree with the current management Replenish potassium chloride, follow potassium levels and adjust as needed Medical records reviewed, continue current management
[2017-09-05] MEDS ORDERED: NON-FORMULARY (Insulin Glargine,Hum.Rec.Anlog [Lantus Solostar] 20 UNITS) SQ SCH (22:00)
[2017-09-05] MEDS: LEVEMIR SUB-Q SCH (22:10)
[2017-09-06] MEDS: LASIX IV SCH ×2 (06:13→17:25)
[2017-09-06 06:30] LABS: Basophils % (Auto) 0.7 % (0.0-1.8); Eosinophils % (Auto) 1.5 % (0.0-4.3); Hemoglobin 12.5 gm/dl (11.8-15.2); Mean Corpuscular HGB Conc 34 % (32-34); Mean Corpuscular Hemoglobin 31 pg (28-32); Mean Corpuscular Volume 91 fl (84-94); Platelet Count 198 K/mm3 (140-440); Red Blood Count 4.08 M/mm3 (3.65-5.03); Red Cell Distribution Width 17.1 % (13.2-15.2); White Blood Count 8.6 K/mm3 (4.5-11.0)
[2017-09-06 07:02] LABS: Anion Gap 13 mmol/L; BUN/Creatinine Ratio 12; Blood Urea Nitrogen 12 mg/dL (9-20); Calcium 8.9 mg/dL (8.4-10.2); Carbon Dioxide 32 mmol/L (22-30); Chloride 96.6 mmol/L (98-107); Glucose 95 mg/dL (75-100); Sodium 139 mmol/L (137-145)
[2017-09-06] MEDS: NOVOLOG SUB-Q SCH ×4 (08:17→22:07)
[2017-09-06] MEDS ORDERED: K-DUR PO ONE (08:50)
[2017-09-06] MEDS: ECOTRIN PO SCH (09:04)
[2017-09-06] MEDS: GLUCOTROL PO SCH (09:04)
[2017-09-06] MEDS: ZESTRIL PO SCH (09:04)
[2017-09-06] MEDS: COREG PO SCH ×2 (09:05→22:06)
[2017-09-06] MEDS: FEOSOL PO SCH ×2 (09:06→22:06)
[2017-09-06] MEDS: MAG-OX PO SCH (09:06)
[2017-09-06] MEDS: LOVENOX SUB-Q SCH (09:06)
[2017-09-06] MEDS: ZYLOPRIM PO SCH ×2 (09:06→22:06)
[2017-09-06] MEDS: BROVANA NEBU IH SCH ×2 (09:13→19:35)
[2017-09-06] MEDS: PULMICORT IH SCH ×2 (09:13→19:35)
[2017-09-06] MEDS: K-DUR PO SCH ×2 (10:15→17:24)
--- NOTE | 2017-09-06 11:42 | Progress Note ---
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 Maintain a potassium >4. Subjective Date of service: 09/06/17 Interval history: Patient is resting in bed comfortably. No events on telemetry overnight. Objective Vital Signs Temp Pulse Pulse Resp Resp BP Pulse Ox 09/06/17 09:39 71 20 09/06/17 09:36 70 09/06/17 09:17 98 09/06/17 09:16 71 20 09/06/17 09:05 85 130/76 09/06/17 09:04 85 130/76 09/06/17 04:21 98.6 F 65 20 108/60 97 09/06/17 00:28 98.1 F 67 20 113/56 94 09/05/17 22:09 71 128/80 09/05/17 20:10 71 09/05/17 20:06 97.8 F 71 20 128/80 97 09/05/17 15:24 97.4 F L 70 22 115/65 94 09/05/17 13:54 70 20 09/05/17 13:44 70 20 09/05/17 13:42 95 09/05/17 12:20 72 09/05/17 12:15 97.7 F 72 22 103/48 95 - Physical Examination General: No Apparent Distress HEENT: Positive: PERRL Neck: Positive: trachea midline Cardiac: Positive: Other (AV paced) Neuro: Positive: Grossly Intact - Labs and Meds CBC 09/06/17 Range/Units 05:21 WBC 8.6 (4.5-11.0) K/mm3 RBC 4.08 (3.65-5.03) M/mm3 Hgb 12.5 (11.8-15.2) gm/dl Hct 37.0 (35.5-45.6) % Plt Count 198 (140-440) K/mm3 Lymph # 1.7 (1.2-5.4) K/mm3 [place] # 1.0 H (0.0-0.8) K/mm3 Eos # 0.1 (0.0-0.4) K/mm3 Baso # 0.1 (0.0-0.1) K/mm3 Comprehensive Metabolic Panel 09/05/17 09/06/17 Range/Units 13:07 05:21 Sodium 138 139 (137-145) mmol/L Potassium 3.0 L 3.0 L (3.6-5.0) mmol/L Chloride 94.4 L 96.6 L (98-107) mmol/L Carbon Dioxide 33 H 32 H (22-30) mmol/L BUN 13 12 (9-20) mg/dL Creatinine 1.2 1.0 (0.8-1.5) mg/dL Glucose 181 H 95 (75-100) mg/dL Calcium 9.1 8.9 (8.4-10.2) mg/dL - Imaging and Cardiology EKG: image reviewed
[2017-09-06] MEDS: DUONEB *Not for PRN Use IH SCH ×4 (14:17→19:36)
--- NOTE | 2017-09-06 15:20 | Progress Note ---
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) Chronic obstructive pulmonary disease - not on exacerbation - nebulizer as needed Severe Pulmonary Hypertension - stable now, continue to monitor Essential hypertension - stable with current meds Type 2 diabetes mellitus - ADA diet, SSI Obstructive sleep apnea - CPAP at bedtime H/o gout - on allopurinol DVT Px - lovenox Subjective Date of service: 09/06/17 Interval history: pt seen and examined denies any chest pain, watching TV peacefully Objective - Constitutional Vitals: Vital Signs - 12hr 09/06/17 09/06/17 09/06/17 04:21 09:04 09:05 Temperature 98.6 F Pulse Rate 65 85 85 Pulse Rate [ Anterior Bilateral Throughout] Respiratory 20 Rate Respiratory Rate [Anterior Bilateral Throughout] Blood Pressure 108/60 130/76 130/76 O2 Sat by Pulse 97 Oximetry 09/06/17 09/06/17 09/06/17 09:16 09:17 09:36 Temperature Pulse Rate 70 Pulse Rate [ 71 Anterior Bilateral Throughout] Respiratory Rate Respiratory 20 Rate [Anterior Bilateral Throughout] Blood Pressure O2 Sat by Pulse 98 Oximetry 09/06/17 09:39 Temperature Pulse Rate Pulse Rate [ 71 Anterior Bilateral Throughout] Respiratory Rate Respiratory 20 Rate [Anterior Bilateral Throughout] Blood Pressure O2 Sat by Pulse Oximetry General appearance: Present: no acute distress, well-nourished - EENT Eyes: PERRL, EOM intact ENT: hearing intact, clear oral mucosa Ears: bilateral: normal - Neck Neck: supple, normal ROM - Respiratory Respiratory effort: normal Respiratory: bilateral: CTA - Cardiovascular Rhythm: regular Heart Sounds: Present: S1 & S2. Absent: gallop, rub Extremities: pulses intact, No edema, normal color, Full ROM - Gastrointestinal General gastrointestinal: Present: soft, non-tender, non-distended, normal bowel sounds - Integumentary Integumentary: clear, warm, dry - Musculoskeletal Musculoskeletal: 1, strength equal bilaterally - Neurologic Neurologic: moves all extremities - Psychiatric Psychiatric: memory intact, appropriate mood/affect, intact judgment & insight - Labs CBC & Chem 7: 09/06/17 05:21 09/06/17 12:56 Labs: Abnormal lab results 09/05/17 09/05/17 09/05/17 Range/Units 01:35 16:18 21:20 RDW (13.2-15.2) % [place] % (Auto) (0.0-7.3) % [place] # (0.0-0.8) K/mm3 Potassium (3.6-5.0) mmol/L Chloride (98-107) mmol/L Carbon Dioxide (22-30) mmol/L POC Glucose 128 H 136 H 108 H (70-105) 09/06/17 09/06/17 09/06/17 Range/Units 05:21 05:21 11:01 RDW 17.1 H (13.2-15.2) % [place] % (Auto) 11.5 H (0.0-7.3) % [place] # 1.0 H (0.0-0.8) K/mm3 Potassium 3.0 L (3.6-5.0) mmol/L Chloride 96.6 L (98-107) mmol/L Carbon Dioxide 32 H (22-30) mmol/L POC Glucose 165 H (70-105) 09/06/17 Range/Units 12:56 RDW (13.2-15.2) % [place] % (Auto) (0.0-7.3) % [place] # (0.0-0.8) K/mm3 Potassium 3.4 L (3.6-5.0) mmol/L Chloride (98-107) mmol/L Carbon Dioxide (22-30) mmol/L POC Glucose (70-105)
[2017-09-06] MEDS: LEVEMIR SUB-Q SCH (22:05)
[2017-09-07] MEDS: DUONEB *Not for PRN Use IH SCH ×4 (02:15→20:20)
[2017-09-07] MEDS: LASIX IV SCH ×2 (05:53→17:48)
[2017-09-07 06:41] LABS: Anion Gap 15 mmol/L; BUN/Creatinine Ratio 10; Blood Urea Nitrogen 12 mg/dL (9-20); Carbon Dioxide 31 mmol/L (22-30); Chloride 95.5 mmol/L (98-107); Glucose 131 mg/dL (75-100); Potassium 3.4 mmol/L (3.6-5.0); Sodium 138 mmol/L (137-145)
[2017-09-07] MEDS: NOVOLOG SUB-Q SCH ×4 (07:30→22:22)
[2017-09-07] MEDS: PULMICORT IH SCH ×2 (08:28→20:07)
[2017-09-07] MEDS: BROVANA NEBU IH SCH ×2 (08:29→20:08)
[2017-09-07] MEDS: GLUCOTROL PO SCH (09:04)
[2017-09-07] MEDS: ALDACTONE PO SCH (09:05)
[2017-09-07] MEDS: ZYLOPRIM PO SCH ×2 (09:07→22:23)
[2017-09-07] MEDS: K-DUR PO SCH ×2 (09:07→10:00)
[2017-09-07] MEDS: MAG-OX PO SCH (09:08)
[2017-09-07] MEDS: ZESTRIL PO SCH (09:08)
[2017-09-07] MEDS: ECOTRIN PO SCH (09:08)
[2017-09-07] MEDS: FEOSOL PO SCH ×2 (09:08→22:23)
[2017-09-07] MEDS: COREG PO SCH ×2 (09:09→22:23)
[2017-09-07] MEDS: LOVENOX SUB-Q SCH (09:10)
--- NOTE | 2017-09-07 09:21 | Progress Note ---
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 Continue medical therapy nonischemic cardiomyopathy. Subjective Date of service: 09/07/17 Interval history: Patient has no complaints. Objective Vital Signs Temp Pulse Pulse Resp Resp BP Pulse Ox 09/07/17 09:09 78 124/68 09/07/17 09:08 78 124/68 09/07/17 09:05 78 124/68 09/07/17 08:42 79 20 09/07/17 08:26 71 20 98 09/07/17 04:45 98.2 F 75 22 136/83 98 09/07/17 02:25 80 20 09/07/17 02:15 77 20 09/07/17 00:14 98.2 F 68 20 128/78 98 09/06/17 22:06 83 140/85 09/06/17 20:01 98.2 F 83 20 140/85 95 09/06/17 19:57 74 20 09/06/17 19:39 98 09/06/17 19:37 72 20 09/06/17 16:04 98.4 F 66 20 123/83 95 09/06/17 12:14 98.8 F 79 20 130/76 97 09/06/17 09:39 71 20 09/06/17 09:36 70 - Physical Examination General: No Apparent Distress HEENT: Positive: PERRL Cardiac: Positive: Other (AV paced) - Labs and Meds Comprehensive Metabolic Panel 09/06/17 09/07/17 Range/Units 12:56 05:08 Sodium 138 (137-145) mmol/L Potassium 3.4 L 3.4 L (3.6-5.0) mmol/L Chloride 95.5 L (98-107) mmol/L Carbon Dioxide 31 H (22-30) mmol/L BUN 12 (9-20) mg/dL Creatinine 1.2 (0.8-1.5) mg/dL Glucose 131 H (75-100) mg/dL Calcium 9.0 (8.4-10.2) mg/dL - Imaging and Cardiology EKG: image reviewed
[2017-09-07] MEDS: TYLENOL PO PRN (09:33)
--- NOTE | 2017-09-07 16:56 | Progress Note ---
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) Chronic obstructive pulmonary disease - not on exacerbation - nebulizer as needed Severe Pulmonary Hypertension - stable now, continue to monitor Essential hypertension - stable with current meds Type 2 diabetes mellitus - ADA diet, SSI Obstructive sleep apnea - CPAP at bedtime H/o gout - on allopurinol DVT Px - lovenox Subjective Date of service: 09/07/17 Interval history: pt seen and examined denies any chest pain, resting without any distress Objective - Exam Narrative Exam: General appearance: Present: no acute distress, well-nourished - EENT Eyes: PERRL, EOM intact ENT: hearing intact, clear oral mucosa Ears: bilateral: normal - Neck Neck: supple, normal ROM - Respiratory Respiratory effort: normal Respiratory: bilateral: CTA - Cardiovascular Rhythm: regular Heart Sounds: Present: S1 & S2. Absent: gallop, rub Extremities: pulses intact, No edema, normal color, Full ROM - Gastrointestinal General gastrointestinal: Present: soft, non-tender, non-distended, normal bowel sounds - Integumentary Integumentary: clear, warm, dry - Musculoskeletal Musculoskeletal: 1, strength equal bilaterally - Neurologic Neurologic: moves all extremities - Psychiatric Psychiatric: memory intact, appropriate mood/affect, intact judgment & insight - Constitutional Vitals: Vital Signs - 12hr 09/07/17 09/07/17 09/07/17 08:26 08:42 09:00 Pulse Rate 70 Pulse Rate [ 71 79 Anterior Bilateral Throughout] Respiratory Rate Respiratory 20 20 Rate [Anterior Bilateral Throughout] Blood Pressure O2 Sat by Pulse 98 Oximetry 09/07/17 09/07/17 09/07/17 09:05 09:08 09:09 Pulse Rate 78 78 78 Pulse Rate [ Anterior Bilateral Throughout] Respiratory Rate Respiratory Rate [Anterior Bilateral Throughout] Blood Pressure 124/68 124/68 124/68 O2 Sat by Pulse Oximetry 09/07/17 09:37 Pulse Rate Pulse Rate [ Anterior Bilateral Throughout] Respiratory 20 Rate Respiratory Rate [Anterior Bilateral Throughout] Blood Pressure O2 Sat by Pulse Oximetry - Labs CBC & Chem 7: 09/06/17 05:21 09/07/17 05:08 Labs: Abnormal lab results 09/06/17 09/07/17 09/07/17 Range/Units 21:15 05:08 07:50 Potassium 3.4 L (3.6-5.0) mmol/L Chloride 95.5 L (98-107) mmol/L Carbon Dioxide 31 H (22-30) mmol/L Glucose 131 H (75-100) mg/dL POC Glucose 113 H 106 H (70-105) 09/07/17 09/07/17 Range/Units 11:31 15:55 Potassium (3.6-5.0) mmol/L Chloride (98-107) mmol/L Carbon Dioxide (22-30) mmol/L Glucose (75-100) mg/dL POC Glucose 133 H 148 H (70-105)
[2017-09-07] MEDS ORDERED: K-DUR PO ONE (17:54)
--- NOTE | 2017-09-07 22:19 | Progress Note ---
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 Maximize medications as blood pressure tolerates Continue telemetry Strict I/Os and daily weights Subjective Date of service: 09/07/17 Interval history: No acute events. Resting comfortably. No chest pain or SOB. Objective Vital Signs Temp Pulse Pulse Pulse Resp Resp Resp 09/07/17 20:20 72 13 09/07/17 20:08 70 12 09/07/17 19:35 98.1 F 75 18 09/07/17 16:40 98.7 F 76 16 09/07/17 12:16 97.9 F 20 09/07/17 09:37 20 09/07/17 09:09 78 09/07/17 09:08 78 09/07/17 09:05 78 09/07/17 09:00 70 09/07/17 08:42 79 20 09/07/17 08:26 71 20 09/07/17 07:49 97.8 F 70 16 09/07/17 04:45 98.2 F 75 22 09/07/17 02:25 80 20 09/07/17 02:15 77 20 09/07/17 00:14 98.2 F 68 20 BP Pulse Ox 09/07/17 20:20 09/07/17 20:08 09/07/17 19:35 142/92 97 09/07/17 16:40 137/86 96 09/07/17 12:16 141/83 09/07/17 09:37 09/07/17 09:09 124/68 09/07/17 09:08 124/68 09/07/17 09:05 124/68 09/07/17 09:00 09/07/17 08:42 09/07/17 08:26 98 09/07/17 07:49 124/68 96 09/07/17 04:45 136/83 98 09/07/17 02:25 09/07/17 02:15 09/07/17 00:14 128/78 98 - Physical Examination General: No Apparent Distress HEENT: Positive: PERRL Neck: Positive: trachea midline Neuro: Positive: Grossly Intact - Labs and Meds Comprehensive Metabolic Panel 09/07/17 Range/Units 05:08 Sodium 138 (137-145) mmol/L Potassium 3.4 L (3.6-5.0) mmol/L Chloride 95.5 L (98-107) mmol/L Carbon Dioxide 31 H (22-30) mmol/L BUN 12 (9-20) mg/dL Creatinine 1.2 (0.8-1.5) mg/dL Glucose 131 H (75-100) mg/dL Calcium 9.0 (8.4-10.2) mg/dL - Imaging and Cardiology EKG: image reviewed
[2017-09-07] MEDS: LEVEMIR SUB-Q SCH (22:22)
[2017-09-08] MEDS: DUONEB *Not for PRN Use IH SCH ×4 (01:19→20:21)
[2017-09-08] MEDS ORDERED: FLEXERIL PO ONE (02:58)
[2017-09-08 05:52] LABS: Anion Gap 20 mmol/L; BUN/Creatinine Ratio 9; Blood Urea Nitrogen 11 mg/dL (9-20); Carbon Dioxide 27 mmol/L (22-30); Chloride 95.9 mmol/L (98-107); Glucose 126 mg/dL (75-100); Potassium 3.9 mmol/L (3.6-5.0); Sodium 139 mmol/L (137-145)
[2017-09-08] MEDS: LASIX IV SCH ×2 (06:34→18:39)
[2017-09-08] MEDS: NOVOLOG SUB-Q SCH ×4 (08:30→23:06)
[2017-09-08] MEDS: GLUCOTROL PO SCH (09:00)
[2017-09-08] MEDS: PULMICORT IH SCH ×2 (09:20→20:24)
[2017-09-08] MEDS: BROVANA NEBU IH SCH ×2 (09:21→20:20)
[2017-09-08] MEDS ORDERED: ZESTRIL PO SCH (10:00)
[2017-09-08] MEDS: ECOTRIN PO SCH (10:16)
[2017-09-08] MEDS: FEOSOL PO SCH ×2 (10:16→23:04)
[2017-09-08] MEDS: K-DUR PO SCH (10:16)
[2017-09-08] MEDS: MAG-OX PO SCH (10:17)
[2017-09-08] MEDS: ZYLOPRIM PO SCH ×2 (10:18→23:05)
[2017-09-08] MEDS: ALDACTONE PO SCH (10:18)
[2017-09-08] MEDS: LOVENOX SUB-Q SCH (10:19)
[2017-09-08] MEDS: COREG PO SCH ×2 (10:21→23:05)
[2017-09-08] MEDS ORDERED: K-DUR PO SCH (14:00)
--- NOTE | 2017-09-08 14:08 | Discharge Summary ---
Providers - Providers Date of Admission: 09/05/17 05:54 Date of discharge: 09/09/17 Attending physician: ROGELIO SOUZA 09/05/17 05:54 Consult to Physician [CONS] Routine Consulting Provider: OMID ALVARES Reason For Exam: chf/ aicd firing Place consult to:: Dr. Alvares Notified:: Xin JACK Was contact made?: Yes If yes, spoke with:: Mariza Wing Time called:: 08:32 Primary care physician: CAR SALTER Hospitalization Condition: Fair Hospital course: This is a 46yr old male with a long standing history of Nonischemic Cardiomyopathy and has an indwelling cardiac defibrillator. He has a history of VT/VF, prior pulmonary embolism, COPD, BRITTON, HTN, severe Pulmonary Hypertension and obesity. Patient is admitted with syncope and severe hypokalemia with a potassium of 2.8 on presentation. Patient reports feeling of dizziness just before he passed out. Patient reports somewhat disoriented when he came to himself but feels as though his ICD shocked him. He was brought in and admitted for further evaluation. But patient decided to leave [facility] before his K level could be stabilized. Discharge diagnosis and management: Ventricular fibrillation s/p AICD shock - secondary to hypokalemia - cardiology following, recommended to keep K at 4 - k level dropped to 3.1 today, changed Kcl to 40 meq bid - increased the dose of aldectone Hypokalemia - replace and monitor - could be from GI and renal loss - pt does c/o diarrhea today, stating going on for last couple days, but did not mentioned to anybody - ordered urine and stool study - placed on flagyl empirically Dilated nonischemic cardiomyopathy, EF 10-15% - normal coronaries by [facility] 09/2015 - cont current meds - s/p STRUCTURAL TECHNICIAN-ICD (Medtronic) Chronic obstructive pulmonary disease - not on exacerbation - nebulizer as needed Severe Pulmonary Hypertension - stable now, continue on current meds Essential hypertension - stable with current meds Type 2 diabetes mellitus - Managed with ADA diet, SSI coverage Obstructive sleep apnea - CPAP at bedtime H/o gout - on allopurinol Disposition: -07 LEFT AGAINST MED ADVICE Core Measure Documentation - Palliative Care Palliative Care/ Comfort Measures: Not Applicable - Core Measures Any of the following diagnoses?: history only Exam - Physical Exam Narrative exam: General appearance: Present: no acute distress, well-nourished - EENT Eyes: PERRL, EOM intact ENT: hearing intact, clear oral mucosa Ears: bilateral: normal - Neck Neck: supple, normal ROM - Respiratory Respiratory effort: normal Respiratory: bilateral: CTA - Cardiovascular Rhythm: regular Heart Sounds: Present: S1 & S2. Absent: gallop, rub Extremities: pulses intact, No edema, normal color, Full ROM - Gastrointestinal General gastrointestinal: Present: soft, non-tender, non-distended, normal bowel sounds - Integumentary Integumentary: clear, warm, dry - Musculoskeletal Musculoskeletal: 1, strength equal bilaterally - Neurologic Neurologic: moves all extremities - Psychiatric Psychiatric: memory intact, appropriate mood/affect, intact judgment & insight - Constitutional Vitals: Temp Pulse Resp BP Pulse Ox 98.4 F 76 18 149/93 98 09/08/17 04:34 09/08/17 10:21 09/08/17 09:31 09/08/17 10:21 09/08/17 04:34 Plan Activity: advance as tolerated Weight Bearing Status: Non-Weight Bearing Diet: low fat, low salt Durable Medical Equipment Needed Upon Discharge: other (use CPAP at bedtime) Additional Instructions: f/u at [facility] Follow up with: PRIMARY CARE, [Primary Care Provider] - 3-5 Days Prescriptions: Potassium Chloride [K-Dur] 20 meq PO BID #30 tablet Spironolactone [Aldactone] 50 mg PO QDAY #30 tablet
[2017-09-08] MEDS: TYLENOL PO PRN (14:52)
[2017-09-08 18:54] LABS: Potassium 3.6 mmol/L (3.6-5.0)
[2017-09-08] MEDS ORDERED: K-DUR PO ONE (21:00)
[2017-09-08] MEDS: LEVEMIR SUB-Q SCH (23:03)
[2017-09-09] MEDS: DUONEB *Not for PRN Use IH SCH ×4 (03:37→21:46)
[2017-09-09] MEDS: LASIX IV SCH (06:13)
[2017-09-09] MEDS: NOVOLOG SUB-Q SCH ×4 (07:50→17:06)
[2017-09-09] MEDS: PULMICORT IH SCH ×2 (08:34→21:46)
[2017-09-09] MEDS: BROVANA NEBU IH SCH ×2 (08:35→21:48)
--- NOTE | 2017-09-09 08:51 | Progress Note ---
Assessment and Plan Ventricular fibrillation s/p AICD shock secondary to hypokalemia Dilated nonischemic cardiomyopathy, EF 10-15% normal coronaries by [facility] 09/2015 Chronic obstructive pulmonary disease Severe Pulmonary Hypertension Essential hypertension Type 2 diabetes mellitus Obstructive sleep apnea Presence of COMMUNICATIONS TECHNICIAN-ICD (Medtronic) Hx of VT/VF Recommendations: Replete potassium and magnesium as needed Continue medical therapy non-ischemic cardiomyopathy. Maximize medications as blood pressure tolerates Continue telemetry Strict I/Os and daily weights Patient to follow up with [facility] within 1 week of discharge Subjective Date of service: 09/09/17 Interval history: No acute events. Resting comfortably. No chest pain or SOB. Objective Vital Signs Temp Pulse Pulse Pulse Resp Resp Resp 09/09/17 08:45 97.9 F 70 20 09/09/17 08:32 72 20 09/09/17 04:40 98.1 F 70 18 09/08/17 23:33 98.0 F 70 18 09/08/17 23:05 82 09/08/17 20:24 74 20 09/08/17 19:34 98.3 F 82 18 09/08/17 18:41 97.7 F 71 18 09/08/17 15:54 97.7 F 71 20 09/08/17 13:40 75 18 09/08/17 13:20 74 18 09/08/17 11:38 97.9 F 73 20 09/08/17 10:21 76 09/08/17 10:18 76 09/08/17 09:31 78 18 09/08/17 09:21 73 18 09/08/17 09:00 80 BP BP Pulse Ox 09/09/17 08:45 140/84 95 09/09/17 08:32 09/09/17 04:40 121/59 94 09/08/17 23:33 138/76 97 09/08/17 23:05 125/82 09/08/17 20:24 09/08/17 19:34 125/82 96 09/08/17 18:41 132/74 97 09/08/17 15:54 132/74 97 09/08/17 13:40 09/08/17 13:20 09/08/17 11:38 132/78 96 09/08/17 10:21 149/93 09/08/17 10:18 149/93 09/08/17 09:31 09/08/17 09:21 09/08/17 09:00 - Physical Examination General: No Apparent Distress HEENT: Positive: PERRL Neck: Positive: trachea midline Neuro: Positive: Grossly Intact - Labs and Meds Comprehensive Metabolic Panel 09/08/17 09/09/17 Range/Units 17:55 04:56 Potassium 3.6 3.1 L (3.6-5.0) mmol/L - Imaging and Cardiology EKG: image reviewed
--- NOTE | 2017-09-09 09:30 | Progress Note ---
Assessment and Plan Ventricular fibrillation s/p AICD shock - secondary to hypokalemia - cardiology following, recommended to keep K at 4 - k level 3.9 -3.6 today, will give additional 40 meq of KCL - cont aldectone Hypokalemia - replace and monitor Dilated nonischemic cardiomyopathy, EF 10-15% - normal coronaries by [facility] 09/2015 - cont current meds - s/p [employer]-ICD ([employer]) Chronic obstructive pulmonary disease - not on exacerbation - nebulizer as needed Severe Pulmonary Hypertension - stable now, continue to monitor Essential hypertension - stable with current meds Type 2 diabetes mellitus - ADA diet, SSI Obstructive sleep apnea - CPAP at bedtime H/o gout - on allopurinol DVT Px - lovenox Subjective Date of service: 09/08/17 Interval history: pt seen and examined denies any chest pain, resting without any distress repeat K 3.6 this afternoon Objective - Exam Narrative Exam: General appearance: Present: no acute distress, well-nourished - EENT Eyes: PERRL, EOM intact ENT: hearing intact, clear oral mucosa Ears: bilateral: normal - Neck Neck: supple, normal ROM - Respiratory Respiratory effort: normal Respiratory: bilateral: CTA - Cardiovascular Rhythm: regular Heart Sounds: Present: S1 & S2. Absent: gallop, rub Extremities: pulses intact, No edema, normal color, Full ROM - Gastrointestinal General gastrointestinal: Present: soft, non-tender, non-distended, normal bowel sounds - Integumentary Integumentary: clear, warm, dry - Musculoskeletal Musculoskeletal: 1, strength equal bilaterally - Neurologic Neurologic: moves all extremities - Psychiatric Psychiatric: memory intact, appropriate mood/affect, intact judgment & insight - Constitutional Vitals: Vital Signs - 12hr 09/08/17 09/08/17 09/09/17 23:05 23:33 04:40 Temperature 98.0 F 98.1 F Pulse Rate 82 70 70 Pulse Rate [ Anterior Bilateral Throughout] Pulse Rate [ Posterior Bilateral Throughout] Respiratory 18 18 Rate Respiratory Rate [Anterior Bilateral Throughout] Respiratory Rate [Posterior Bilateral Throughout] Blood Pressure 125/82 138/76 121/59 Blood Pressure [Left] O2 Sat by Pulse 97 94 Oximetry 09/09/17 09/09/17 09/09/17 08:32 08:45 08:59 Temperature 97.9 F Pulse Rate 70 Pulse Rate [ 72 Anterior Bilateral Throughout] Pulse Rate [ 76 Posterior Bilateral Throughout] Respiratory 20 Rate Respiratory 20 Rate [Anterior Bilateral Throughout] Respiratory 20 Rate [Posterior Bilateral Throughout] Blood Pressure Blood Pressure 140/84 [Left] O2 Sat by Pulse 95 Oximetry - Labs CBC & Chem 7: 09/06/17 05:21 09/09/17 04:56 Labs: Abnormal lab results 09/08/17 09/08/17 09/08/17 Range/Units 07:41 11:42 20:48 Potassium (3.6-5.0) mmol/L POC Glucose 125 H 143 H 114 H (70-105) 09/09/17 Range/Units 04:56 Potassium 3.1 L (3.6-5.0) mmol/L POC Glucose (70-105)
[2017-09-09] MEDS: LOVENOX SUB-Q SCH (09:51)
[2017-09-09] MEDS: FEOSOL PO SCH (09:52)
[2017-09-09] MEDS: ALDACTONE PO SCH (09:52)
[2017-09-09] MEDS: ECOTRIN PO SCH (09:53)
[2017-09-09] MEDS: COREG PO SCH (09:53)
[2017-09-09] MEDS: MAG-OX PO SCH (09:54)
[2017-09-09] MEDS: GLUCOTROL PO SCH (09:54)
[2017-09-09] MEDS: K-DUR PO SCH ×2 (09:55→10:24)
[2017-09-09] MEDS: ZYLOPRIM PO SCH (09:56)
[2017-09-09] MEDS ORDERED: ZESTRIL PO SCH (10:00)
--- NOTE | 2017-09-09 11:47 | Consultation ---
History of Present Illness - Reason for Consult Consult date: 09/09/17 chronic renal failure, hypokalemia Requesting physician: ROGELIO SOUZA - History of Present Illness 46-year-old man with a history of hypertension, diabetes, gout, BRITTON, COPD, CHF comes to the emergency room complaining of passing out for few seconds. He states that his states he felt his AICD went off. Complains shortness of breath, PND and orthopnea. S/p cardiac cath las month, no blockage. k is 3.1 today and thus nephrology consultation. Review Of Systems: Constitutional: no fever, chills, weight loss Ears, eyes, nose, mouth and throat: no nasal congestion, no nasal discharge, no sinus pressure, blurry vision, diplopia Neck: No neck pain or rigidity. Cardiovascular: no chest pain, palpitations Respiratory: No cough Gastrointestinal: abdominal pain, hematochezia Genitourinary : no dysuria, frequency , hematuria Musculoskeletal: no joint swelling or muscle ache Integumentary: no rash, no pruritis Neurological: no parathesias, focal weakness Endocrine: no cold or heat intolerance, no polyuria or polydipsia Hematologic/Lymphatic: no easy bruising, no easy bleeding, no gland swelling Allergic/Immunologic: no urticaria, no angioedema. PAST MEDICAL HISTORY:hypertension, diabetes, gout, BRITTON, COPD, CHF PAST SURGICAL HISTORY:AICD, hip replacement, gall bladder SOCIAL HISTORY: Denies alcohol, tobacco, drugs FAMILY HISTORY:cad, DM Medications and Allergies Allergies Allergy/AdvReac Type Severity Reaction Status Date / Time cephalexin monohydrate Allergy Hives Verified 08/01/17 08:21 [From Keflex] lidocaine Allergy Hives Verified 03/09/15 22:20 mushrooms Allergy Swelling Uncoded 06/26/15 12:23 Home Medications Medication Instructions Recorded Confirmed Last Taken Type Ferrous Sulfate [Feosol 325 MG tab] 325 mg PO BID 05/19/15 09/05/17 08/01/17 04: 30 History Magnesium Oxide 400 mg PO DAILY 08/31/16 09/05/17 08/01/17 04:30 History glipiZIDE [Glucotrol] 10 mg PO QDAY 03/16/17 09/05/17 07/31/17 History Carvedilol [Coreg] 25 mg PO BID #60 tablet 08/09/05/17 08/01/17 04:30 Rx Lisinopril [Zestril TAB] 2.5 mg PO QDAY #30 tablet 06/10/17 09/05/17 08/01/17 04 :30 Rx Fluticasone/Salmeterol [Advair 1 each IH PRN PRN #1 blst.w.dev 07/09/17 Unknown Rx Diskus 500-50 mcg] Insulin Glargine,Hum.rec.anlog 20 units SQ QHS #5 pen 07/09/17 09/05/17 Rx [Lantus Solostar] Ipratropium/Albuter (Nf) 2 puff IH BID #1 inha 07/09/17 09/05/17 07/31/17 Rx [Combivent Inhaler] Aspirin EC [Aspirin Enteric Coated 325 mg PO QDAY 08/01/17 09/05/17 08/01/17 04: 30 History TAB] Isosorbide Dinitrate 10 mg PO Q8H #90 tablet 08/01/17 09/05/17 Unknown Rx Allopurinol 100 mg PO BID 09/05/17 09/05/17 Unknown History Bumetanide [Bumex 1 mg tab] 1 mg PO BID 09/05/17 09/05/17 Unknown History Potassium Chloride [K-Dur] 20 meq PO BID #30 tablet 09/08/17 Unknown Rx Spironolactone [Aldactone] 50 mg PO QDAY #30 tablet 09/08/17 Unknown Rx Active Meds: Active Medications Acetaminophen (Tylenol) 650 mg PO Q4H PRN PRN Reason: Pain MILD(1-3)/Fever >100.5/KNIGHT Last Admin: 09/08/17 14:52 Dose: 650 mg Albuterol (Proventil) 2.5 mg IH Q3HRT PRN PRN Reason: Shortness Of Breath Albuterol/Ipratropium (Duoneb *Not For Prn Use*) 1 ampul IH Q6HRT [facility] Last Admin: 09/09/17 11:02 Dose: Not Given Allopurinol (Zyloprim) 100 mg PO BID [facility] Last Admin: 09/09/17 09:56 Dose: 100 mg Arformoterol Tartrate (Brovana Nebu) 15 mcg IH Q12HRT [facility] Last Admin: 09/09/17 08:35 Dose: 15 mcg Aspirin (Ecotrin) 325 mg PO QDAY [facility] Last Admin: 09/09/17 09:53 Dose: 325 mg Atorvastatin Calcium (Lipitor) 40 mg PO QHS [facility] Last Admin: 09/08/17 23:05 Dose: 40 mg Bisacodyl (Dulcolax) 10 mg [place] QDAY PRN PRN Reason: Constipation unrelieved by MOM Budesonide (Pulmicort) 1 mg IH Q12HRT [facility] Last Admin: 09/09/17 08:34 Dose: 1 mg Carvedilol (Coreg) 25 mg PO BID [facility] Last Admin: 09/09/17 09:53 Dose: 25 mg Dextrose (D50w (25gm) Syringe) 50 ml IV PRN PRN PRN Reason: Hypoglycemia Enoxaparin Sodium (Lovenox) 40 mg SUB-Q QDAY [facility] Last Admin: 09/09/17 09:51 Dose: 40 mg Ferrous Sulfate (Feosol) 325 mg PO BID [facility] Last Admin: 09/09/17 09:52 Dose: 325 mg Furosemide (Lasix) 20 mg PO 0600,1800 [facility] Glipizide (Glucotrol) 10 mg PO QDDIAB [facility] Last Admin: 09/09/17 09:54 Dose: 10 mg Insulin Aspart (Novolog) 0 units SUB-Q [facility] PRN Reason: Protocol Last Admin: 09/09/17 07:50 Dose: Not Given Insulin Detemir (Levemir) 20 units SUB-Q QHS [facility] Last Admin: 09/08/17 23:03 Dose: 20 units Lisinopril (Zestril) 10 mg PO QDAY [facility] Last Admin: 09/09/17 09:55 Dose: 10 mg Magnesium Hydroxide (Milk Of Magnesia) 30 ml PO Q4H PRN PRN Reason: Constipation Magnesium Oxide (Mag-Ox) 400 mg PO DAILY [facility] Last Admin: 09/09/17 09:54 Dose: 400 mg Ondansetron HCl (Zofran) 4 mg IV Q8H PRN PRN Reason: N/V unrelieved by Reglan Potassium Chloride (K-Dur) 40 meq PO BID [facility] Last Admin: 09/09/17 10:24 Dose: 40 meq Spironolactone (Aldactone) 50 mg PO BID ROBERT Exam - Vital Signs Vital signs: Vital Signs Temp Pulse Resp BP Pulse Ox 98.4 F 75 21 130/69 96 09/05/17 01:14 09/05/17 01:14 09/05/17 01:14 09/05/17 01:14 09/05/17 01:14 - Physical Exam Narrative exam: Gen. appearance: Patient lying in bed, no apparent distress HEENT: Normocephalic, atraumatic, pupils equally round and reactive to light, extraocular movement intact, and no sclericterus,. No JVD or thyromegaly or nodule,neck supple, no carotid bruit ,mucous membranes moist, no exudate or erythema Heart: S1, S2, regular rate and rhythm Lungs: Crackles bilaterally, breathing comfortable Abdomen: Positive bowel sounds, nontender, nondistended, no organomegaly Extremity:+ edema, cyanosis, clubbing Skin: No rash, nodules, warm, dry Neuro: Oriented 3, cranial nerves II-12 intact, speech is fluent, motor and sensory intact Results - Lab Results 09/06/17 05:21 09/09/17 04:56 Most recent lab results Calcium 9.0 mg/dL (8.4-10.2) 09/08/17 04:39 Magnesium 2.00 mg/dL (1.7-2.3) 09/08/17 17:55 Assessment and Plan Assessment: Acute on chronic heart Failure, systolic dysfunction Syncope Hypokalemia COPD Hypertension Diabetes Depression Obstructive sleep apnea Morbid obesity History of pulmonary emboli PLAN: Diuresed with IV Lasix, likely cause of low potassium, will reduce dose and increase aldactone monitor I's and O's, daily weights may have hyperaldo--continue aldactone Replete potassium/mag prn daily lytes
--- NOTE | 2017-09-09 12:43 | Progress Note ---
Assessment and Plan Ventricular fibrillation s/p AICD shock - secondary to hypokalemia - cardiology following, recommended to keep K at 4 - k level dropped to 3.1 today, will change to bid 40 meq of KCL - cont aldectone Hypokalemia - replace and monitor - could be from GI and renal loss - pt does c/o diarrhea today, stating going on for last couple days, but did not mentioned to anybody - will do urine and stool study - will place on flagyl empirically Dilated nonischemic cardiomyopathy, EF 10-15% - normal coronaries by [facility] 09/2015 - cont current meds - s/p [employer]ULT [employer]-ICD ([employer]) Chronic obstructive pulmonary disease - not on exacerbation - nebulizer as needed Severe Pulmonary Hypertension - stable now, continue to monitor Essential hypertension - stable with current meds Type 2 diabetes mellitus - ADA diet, SSI Obstructive sleep apnea - CPAP at bedtime H/o gout - on allopurinol DVT Px - lovenox Subjective Date of service: 09/09/17 Interval history: pt seen and examined denies any chest pain, resting without any distress repeat K 3.1 this morning, he c/o diarrhea for last two days denies any nausea/vomiting Objective - Exam Narrative Exam: General appearance: Present: no acute distress, well-nourished - EENT Eyes: PERRL, EOM intact ENT: hearing intact, clear oral mucosa Ears: bilateral: normal - Neck Neck: supple, normal ROM - Respiratory Respiratory effort: normal Respiratory: bilateral: CTA - Cardiovascular Rhythm: regular Heart Sounds: Present: S1 & S2. Absent: gallop, rub Extremities: pulses intact, No edema, normal color, Full ROM - Gastrointestinal General gastrointestinal: Present: soft, non-tender, non-distended, normal bowel sounds - Integumentary Integumentary: clear, warm, dry - Musculoskeletal Musculoskeletal: 1, strength equal bilaterally - Neurologic Neurologic: moves all extremities - Psychiatric Psychiatric: memory intact, appropriate mood/affect, intact judgment & insight - Constitutional Vitals: Vital Signs - 12hr 09/09/17 09/09/17 09/09/17 04:40 08:32 08:45 Temperature 98.1 F 97.9 F Pulse Rate 70 70 Pulse Rate [ 72 Anterior Bilateral Throughout] Pulse Rate [ Posterior Bilateral Throughout] Respiratory 18 20 Rate Respiratory 20 Rate [Anterior Bilateral Throughout] Respiratory Rate [Posterior Bilateral Throughout] Blood Pressure 121/59 Blood Pressure 140/84 [Left] O2 Sat by Pulse 94 95 Oximetry 09/09/17 09/09/17 09/09/17 08:59 09:52 09:53 Temperature Pulse Rate 72 782 H Pulse Rate [ Anterior Bilateral Throughout] Pulse Rate [ 76 Posterior Bilateral Throughout] Respiratory Rate Respiratory Rate [Anterior Bilateral Throughout] Respiratory 20 Rate [Posterior Bilateral Throughout] Blood Pressure 140/84 140/84 Blood Pressure [Left] O2 Sat by Pulse Oximetry 09/09/17 09:55 Temperature Pulse Rate 72 Pulse Rate [ Anterior Bilateral Throughout] Pulse Rate [ Posterior Bilateral Throughout] Respiratory Rate Respiratory Rate [Anterior Bilateral Throughout] Respiratory Rate [Posterior Bilateral Throughout] Blood Pressure 140/89 Blood Pressure [Left] O2 Sat by Pulse Oximetry - Labs CBC & Chem 7: 09/06/17 05:21 09/09/17 04:56 Labs: Abnormal lab results 09/08/17 09/08/17 09/08/17 Range/Units 07:41 11:42 20:48 Potassium (3.6-5.0) mmol/L POC Glucose 125 H 143 H 114 H (70-105) 09/09/17 Range/Units 04:56 Potassium 3.1 L (3.6-5.0) mmol/L POC Glucose (70-105)
[2017-09-09 16:32] VITALS: BP 156/87
[2017-09-09] MEDS ORDERED: LASIX PO SCH ×2 (18:00)
[2017-09-09] MEDS ORDERED: ALDACTONE PO SCH (22:00)
== END 2017-09-09 21:21 | disposition left against medical advice (07) | DRG 291 ==
LOC: ED 01:11 → 4A 05:54
PROVIDERS: ADMIT Internal Medicine; ATTEND Internal Medicine
DX: I11.0 Hypertensive heart disease with heart failure (principal); I49.01 Ventricular fibrillation; I50.23 Acute on chronic systolic (congestive) heart failure; E87.6 Hypokalemia; J44.9 Chronic obstructive pulmonary disease, unspecified; F32.9 Major depressive disorder, single episode, unspecified; G47.33 Obstructive sleep apnea (adult) (pediatric); E66.01 Morbid (severe) obesity due to excess calories; E11.9 Type 2 diabetes mellitus without complications; Z96.649 Presence of unspecified artificial hip joint; I42.0 Dilated cardiomyopathy; I27.20 Pulmonary hypertension, unspecified; M10.9 Gout, unspecified; Z95.810 Presence of automatic (implantable) cardiac defibrillator; Z83.3 Family history of diabetes mellitus; Z82.49 Family history of ischemic heart disease and other diseases of the circulatory system; Z88.1 Allergy status to other antibiotic agents; Z91.041 Radiographic dye allergy status; Z91.018 Allergy to other foods; Z86.711 Personal history of pulmonary embolism; Z68.43 Body mass index [BMI] 50.0-59.9, adult; Z79.82 Long term (current) use of aspirin; Z79.899 Other long term (current) drug therapy; Z79.4 Long term (current) use of insulin; Z79.1 Long term (current) use of non-steroidal anti-inflammatories (NSAID)
CPT/HCPCS: 36415; 71010; 80048; 80061; 80162; 82550; 82553; 82962; 83735; 83880; 84132; 84484; 85025; 85379; 93005; 93010; 94640; 96374; 96375; 99285; A9270-GY; J1650; J1818; J1940; J3010; J3480

== ENCOUNTER 2017-10-14 22:40 | Inpatient (IN) | payer MEDICAID ==
[2017-10-14] MEDS ORDERED: PROVENTIL IH ONE (22:54)
[2017-10-14] MEDS ORDERED: LASIX IV ONE (22:54)
[2017-10-14] MEDS ORDERED: ATROVENT IH ONE (22:54)
--- NOTE | 2017-10-14 23:00 | Emergency Department Report ---
ED Shortness of Breath HPI - General Chief Complaint: Dyspnea/Respdistress Stated Complaint: TRI Time Seen by Provider: 10/14/17 22:50 Source: patient - History of Present Illness Initial Comments: Patient is 46 years old male morbidly obese, CHF, COPD, obstructive sleep apnea , presented to the ER with a 2 day history of shortness of breath and difficulty breathing with left sided chest pain. Patient denied any nausea or vomiting. He stated that he is compliant with his medications and diet. MD Complaint: shortness of breath, cough Quality: dull Known History Of: COPD, congestive heart failure - Related Data Home Medications Medication Instructions Recorded Confirmed Last Taken Ferrous Sulfate [Feosol 325 MG tab] 325 mg PO BID 05/19/15 10/14/17 08/01/17 04: 30 Magnesium Oxide 400 mg PO DAILY 08/31/16 10/14/17 08/01/17 04:30 glipiZIDE [Glucotrol] 10 mg PO QDAY 03/16/17 10/14/17 07/31/17 Aspirin EC [Aspirin Enteric Coated 325 mg PO QDAY 08/01/17 10/14/17 08/01/17 04: 30 TAB] Allopurinol 100 mg PO BID 09/05/17 10/14/17 Unknown Bumetanide [Bumex 1 mg tab] 1 mg PO BID 09/05/17 10/14/17 Unknown Digoxin 125 mcg PO DAILY 10/14/17 10/14/17 Unknown Metolazone 5 mg PO QWEEK 10/14/17 10/14/17 Unknown Torsemide [Demadex] 100 mg PO QDAY 10/14/17 10/14/17 Unknown hydrALAZINE [Apresoline] 25 mg PO Q8HR 10/14/17 10/14/17 Unknown Previous Rx's Medication Instructions Recorded Last Taken Type Carvedilol [Coreg] 25 mg PO BID #60 tablet 06/10/17 08/01/17 04:30 Rx Lisinopril [Zestril TAB] 2.5 mg PO QDAY #30 tablet 06/10/17 08/01/17 04:30 Rx Fluticasone/Salmeterol [Advair 1 each IH PRN PRN #1 blst.w.dev 07/09/17 Unknown Rx Diskus 500-50 mcg] Insulin Glargine,Hum.rec.anlog 20 units SQ QHS #5 pen 07/09/17 07/31/17 Rx [Lantus Solostar] Isosorbide Dinitrate 10 mg PO Q8H #90 tablet 08/01/17 Unknown Rx Potassium Chloride [K-Dur] 20 meq PO BID #30 tablet 09/08/17 Unknown Rx Allergies Allergy/AdvReac Type Severity Reaction Status Date / Time cephalexin monohydrate Allergy Hives Verified 08/01/17 08:21 [From Keflex] lidocaine Allergy Hives Verified 03/09/15 22:20 mushrooms Allergy Swelling Uncoded 06/26/15 12:23 ED Review of Systems ROS: Stated complaint: TRI Other details as noted in HPI Comment: All other systems reviewed and negative Constitutional: denies: chills, fever Respiratory: orthopnea, shortness of breath, SOB with exertion, SOB at rest. denies: cough Cardiovascular: chest pain, dyspnea on exertion, orthopnea. denies: palpitations Gastrointestinal: denies: abdominal pain, nausea, vomiting, diarrhea, constipation, hematemesis, melena Musculoskeletal: denies: back pain, joint swelling ED Past Medical Hx - Past Medical History Hx Hypertension: Yes Hx Heart Attack/AMI: No Hx Congestive Heart Failure: Yes Hx Diabetes: Yes (oral and insulin) Hx Deep Vein Thrombosis: Yes Hx Pulmonary Embolism: Yes Hx Liver Disease: No Hx Renal Disease: Yes (insufficiency) Hx Sickle Cell Disease: No Hx Arthritis: Yes (Knees, gout) Hx Asthma: Yes Hx COPD: Yes Hx Tuberculosis: No Hx HIV: No Additional medical history: copd; sleep apnea. anemia - Surgical History Hx Coronary Stent: No Hx Pacemaker: Yes Hx Internal Defibrillator: Yes Hx Cholecystectomy: Yes Additional Surgical History: defibrillator - Social History Smoking Status: Former Smoker - Medications Home Medications: Home Medications Medication Instructions Recorded Confirmed Last Taken Type Ferrous Sulfate [Feosol 325 MG tab] 325 mg PO BID 05/19/15 10/14/17 08/01/17 04: 30 History Magnesium Oxide 400 mg PO DAILY 08/31/16 10/14/17 08/01/17 04:30 History glipiZIDE [Glucotrol] 10 mg PO QDAY 03/16/17 10/14/17 07/31/17 History Carvedilol [Coreg] 25 mg PO BID #60 tablet 0810/14/17 08/01/17 04:30 Rx Lisinopril [Zestril TAB] 2.5 mg PO QDAY #30 tablet 06/10/17 10/14/17 08/01/17 04 :30 Rx Fluticasone/Salmeterol [Advair 1 each IH PRN PRN #1 blst.w.dev 07/09/17 Unknown Rx Diskus 500-50 mcg] Insulin Glargine,Hum.rec.anlog 20 units SQ QHS #5 pen 07/09/17 10/14/17 Rx [Lantus Solostar] Aspirin EC [Aspirin Enteric Coated 325 mg PO QDAY 08/01/17 10/14/17 08/01/17 04: 30 History TAB] Isosorbide Dinitrate 10 mg PO Q8H #90 tablet 08/01/17 10/14/17 Unknown Rx Allopurinol 100 mg PO BID 09/05/17 10/14/17 Unknown History Bumetanide [Bumex 1 mg tab] 1 mg PO BID 09/05/17 10/14/17 Unknown History Potassium Chloride [K-Dur] 20 meq PO BID #30 tablet 09/08/17 10/14/17 Unknown Rx Digoxin 125 mcg PO DAILY 10/14/17 10/14/17 Unknown History Metolazone 5 mg PO QWEEK 10/14/17 10/14/17 Unknown History Torsemide [Demadex] 100 mg PO QDAY 10/14/17 10/14/17 Unknown History hydrALAZINE [Apresoline] 25 mg PO Q8HR 10/14/17 10/14/17 Unknown History ED Physical Exam - General General appearance: alert, in no apparent distress - Head Head exam: Present: atraumatic, normocephalic, normal inspection - Eye Eye exam: Present: normal appearance - ENT ENT exam: Present: normal exam, normal orophraynx, mucous membranes moist - Neck Neck exam: Present: normal inspection, full ROM. Absent: tenderness, meningismus, lymphadenopathy - Respiratory Respiratory exam: Present: wheezes, decreased breath sounds, prolonged expiratory - Cardiovascular Cardiovascular Exam: Present: regular rate, normal rhythm, normal heart sounds - GI/Abdominal GI/Abdominal exam: Present: soft, normal bowel sounds. Absent: distended, tenderness, guarding, rebound, rigid, organomegaly, mass, bruit, pulsatile mass , hernia - Extremities Exam Extremities exam: Present: normal inspection, pedal edema - Back Exam Back exam: Present: normal inspection, full ROM. Absent: CVA tenderness (R), CVA tenderness (L), muscle spasm, paraspinal tenderness, vertebral tenderness - Neurological Exam Neurological exam: Present: alert, oriented X3, CN II-XII intact, normal gait. Absent: abnormal gait - Skin Skin exam: Present: warm, intact, normal color ED Course Vital Signs 10/14/17 10/14/17 10/14/17 23:02 23:30 23:41 Temperature 98.0 F Pulse Rate 70 Pulse Rate [ 70 Bilateral] Pulse Rate [ 70 Left] Pulse Rate [ 69 Right] Respiratory 20 20 Rate Respiratory 15 Rate [Bilateral ] Respiratory 18 Rate [Left] Respiratory 15 Rate [Right] Blood Pressure 124/73 O2 Sat by Pulse 95 99 Oximetry ED Medical Decision Making - Lab Data Result diagrams: 10/14/17 23:11 10/14/17 23:11 - EKG Data -: EKG Interpreted by Pr EKG shows normal: sinus rhythm - EKG Data Interpretation: no acute changes - Radiology Data Radiology results: report reviewed cxr showed no acute finding. - Medical Decision Making Discussed with Dr. Garcia, presented the patient to him, he agreed to admit the patient to his service. Critical care attestation.: If time is entered above; I have spent that time in minutes in the direct care of this critically ill patient, excluding procedure time. ED Disposition Clinical Impression: Acute exacerbation of chronic obstructive pulmonary disease (COPD), Acute CHF ( congestive heart failure) Disposition: DC-[id number] OP ADMIT IP TO THIS HOSP Is pt being admited?: Yes Condition: Stable Instructions: Chronic Obstructive Pulmonary Disease (ED)
[2017-10-14 23:26] LABS: Basophils # (Auto) 0.1 K/mm3 (0.0-0.1); Eosinophils % (Auto) 0.5 % (0.0-4.3); Hematocrit 36.3 % (35.5-45.6); Hemoglobin 11.8 gm/dl (11.8-15.2); Lymphocytes # (Auto) 1.9 K/mm3 (1.2-5.4); Lymphocytes % (Auto) 18.5 % (13.4-35.0); Mean Corpuscular HGB Conc 33 % (32-34); Mean Corpuscular Hemoglobin 29 pg (28-32); Mean Corpuscular Volume 89 fl (84-94); Monocytes # (Auto) 0.7 K/mm3 (0.0-0.8); Monocytes % (Auto) 6.8 % (0.0-7.3); Platelet Count 223 K/mm3 (140-440); Red Blood Count 4.08 M/mm3 (3.65-5.03); Red Cell Distribution Width 17.8 % (13.2-15.2)
--- NOTE | 2017-10-14 23:29 | XRay Report ---
FINAL REPORT PROCEDURE: XR CHEST 1V AP TECHNIQUE: A portable AP chest radiograph was obtained at 10/15/2017 04:02 ([facility]) . CPT 37216 HISTORY: Dyspnea. COMPARISON: Chest radiograph dated 09/05/2017. FINDINGS: Heart: Stable mild cardiomegaly. Biventricular pacer/ICD. Mediastinum/Vessels: Normal. Lungs/Pleural space: Lung volumes mildly improved. Bony thorax: No acute osseous abnormality. Life support devices: None. IMPRESSION: Cardiomegaly. Biventricular pacer/ICD. Improved lung volumes. No radiographic evidence of acute cardiopulmonary disease.
[2017-10-14 23:53] LABS: Albumin 3.9 g/dL (3.9-5); Calcium 9.2 mg/dL (8.4-10.2)
[2017-10-15] MEDS ORDERED: DILAUDID PO PRN (03:00)
[2017-10-15] MEDS: DILAUDID IV PRN ×2 (03:31→21:55)
[2017-10-15] MEDS ORDERED: FLUTICASONE IH PRN (04:02)
[2017-10-15] MEDS ORDERED: SALMETEROL IH PRN (04:02)
--- NOTE | 2017-10-15 04:02 | History and Physical Report ---
History of Present Illness Date of examination: 10/15/17 Date of admission: 10/15/17 01:03 Chief complaint: chief complaint:shortness of breath for 2 days History of present illness: History of present illness: Patient is a 46-year-old male with a past medical history of asthma, PE, CHF, COPD, CAD, defibrillator, hypertension, sleep apnea, and previous episodes of renal insufficiency who presents to the hospital with complains of shortness of breath 2 days. Until day before yesterday the patient was at his normal baseline state of health. Now he has had progressive worsening of his dyspnea on exertion to where he cannot walk across a room or talk while sitting up without becoming short of breath. Patient used Combivent and nebulizer treatment prior to hospitalization without improvement. Additionally, he has a productive cough with whitish sputum. He has had no fevers, chills, or night sweats. He reports feeling like he is wheezing, but no dyspnea at rest (as long as he is lying down). he reported orthopnea, and paroxysmal nocturnal dyspnea. No hx of recurrent pneumonia. He has no sick contacts. He also has no pets, has not been around any farm animals, and has not traveled recently or been around those who have. Patient was on Eliquis for PE was discontinued by Dr. Salazar compliance review officer since he had taken the medication for several months. Past History Past Medical History: CAD, COPD, heart failure, hypertension, other (asthma, PE , defibrillator, and sleep apnea,) Past Surgical History: Other (defibrillator placement) Social history: denies: smoking, alcohol abuse Family history: CAD, hypertension Medications and Allergies Allergies Allergy/AdvReac Type Severity Reaction Status Date / Time cephalexin monohydrate Allergy Hives Verified 03/09/15 22:20 [From Keflex] lidocaine Allergy Hives Verified 03/09/15 22:20 mushrooms Allergy Swelling Uncoded 06/26/15 12:23 Home Medications Medication Instructions Recorded Confirmed Last Taken Type Ferrous Sulfate [Feosol 325 MG tab] 325 mg PO BID 05/19/15 07/06/17 1 Day Ago History Magnesium Oxide 400 mg PO DAILY 08/31/16 07/06/17 1 Day Ago History ISOSORBIDE MONOnitrate [Imdur ER] 30 mg PO DAILY #30 tablet 12/14/16 07/06/17 1 Day Ago Rx Insulin Glargine,Hum.rec.anlog 20 units SQ QHS #5 pen 02/06/17 07/06/17 1 Day Ago Rx [Lantus Solostar] Fluticasone/Salmeterol [Advair 1 each IH PRN PRN 03/06/17 07/06/17 1 Day Ago History Diskus 500-50 mcg] Ipratropium/Albuter (Nf) 2 puff IH BID 03/06/17 07/06/17 1 Day Ago History [Combivent Inhaler] glipiZIDE [Glucotrol] 10 mg PO QDAY 03/16/17 07/06/17 1 Day Ago History Apixaban [Eliquis] 5 mg PO Q12HR #60 tablet 06/10/17 07/06/17 Unknown Rx Aspirin [Aspirin BABY CHEW TAB] 81 mg PO QDAY tab.chew 06/10/17 07/06/17 Unknown Rx Bumetanide [Bumex 1 mg tab] 2 mg PO BID #60 tab 06/10/17 07/06/17 Unknown Rx Carvedilol [Coreg] 25 mg PO BID #60 tablet 06/10/17 07/06/17 Unknown Rx Lisinopril [Zestril TAB] 2.5 mg PO QDAY #30 tablet 06/10/17 07/06/17 Unknown Rx Metolazone 5 mg PO 1XW #10 tablet 06/10/17 07/06/17 Unknown Rx Potassium Chloride [K-Dur] 40 meq PO BID #8 tab 06/10/17 07/06/17 Unknown Rx Potassium Chloride [K-Dur] 40 meq PO QDAY #26 tablet 06/10/17 07/06/17 Unknown Rx Review of Systems Constitutional: no weight loss, no weight gain, no fever, no chills, no night sweats Ears, nose, mouth and throat: no ear discharge, no tinnitis, no decreased hearing, no nose pain, no nasal congestion, no nasal discharge, no sinus pressure Cardiovascular: shortness of breath, dyspnea on exertion, paroxysmal nocturnal dyspnea, no palpitations, no rapid/irregular heart beat, no edema, no syncope, no lightheadedness Respiratory: shortness of breath, dyspnea on exertion, no cough with sputum, no excessive sputum, no hemoptysis Gastrointestinal: no abdominal pain, no nausea, no vomiting, no diarrhea, no constipation Genitourinary Male: no hematuria, no flank pain, no discharge, no urinary frequency, no urinary hesitancy Rectal: no pain, no incontinence, no bleeding Musculoskeletal: no neck pain, no shooting arm pain, no arm numbness/tingling, no low back pain Integumentary: no pruritis, no redness, no sores, no wounds, no jaundice Neurological: no transient paralysis, no paralysis, no weakness, no numbness Psychiatric: no memory loss, no change in sleep habits, no sleep disturbances, no insomnia, no hypersomnia Endocrine: no heat intolerance, no polyphagia, no excessive thirst, no polydipsia, no polyuria, no nocturia Hematologic/Lymphatic: no easy bruising, no easy bleeding Allergic/Immunologic: no urticaria, no allergic rhinitis Medications and Allergies Allergies Allergy/AdvReac Type Severity Reaction Status Date / Time cephalexin monohydrate Allergy Hives Verified 08/01/17 08:21 [From Keflex] lidocaine Allergy Hives Verified 03/09/15 22:20 mushrooms Allergy Swelling Uncoded 06/26/15 12:23 Home Medications Medication Instructions Recorded Confirmed Last Taken Type Ferrous Sulfate [Feosol 325 MG tab] 325 mg PO BID 05/19/15 10/14/17 08/01/17 04: 30 History Magnesium Oxide 400 mg PO DAILY 08/31/16 10/14/17 08/01/17 04:30 History glipiZIDE [Glucotrol] 10 mg PO QDAY 03/16/17 10/14/17 07/31/17 History Carvedilol [Coreg] 25 mg PO BID #60 tablet 06/10/17 10/14/17 08/01/17 04:30 Rx Lisinopril [Zestril TAB] 2.5 mg PO QDAY #30 tablet 06/10/17 10/14/17 08/01/17 04 :30 Rx Fluticasone/Salmeterol [Advair 1 each IH PRN PRN #1 blst.w.dev 07/09/17 Unknown Rx Diskus 500-50 mcg] Insulin Glargine,Hum.rec.anlog 20 units SQ QHS #5 pen 07/09/17 10/14/17 Rx [Lantus Solostar] Aspirin EC [Aspirin Enteric Coated 325 mg PO QDAY 08/01/17 10/14/17 08/01/17 04: 30 History TAB] Isosorbide Dinitrate 10 mg PO Q8H #90 tablet 08/01/17 10/14/17 Unknown Rx Allopurinol 100 mg PO BID 09/05/17 10/14/17 Unknown History Bumetanide [Bumex 1 mg tab] 1 mg PO BID 09/05/17 10/14/17 Unknown History Potassium Chloride [K-Dur] 20 meq PO BID #30 tablet 09/08/17 10/14/17 Unknown Rx Digoxin 125 mcg PO DAILY 10/14/17 10/14/17 Unknown History Metolazone 5 mg PO QWEEK 10/14/17 10/14/17 Unknown History Torsemide [Demadex] 100 mg PO QDAY 10/14/17 10/14/17 Unknown History hydrALAZINE [Apresoline] 25 mg PO Q8HR 10/14/17 10/14/17 Unknown History Active Meds: Active Medications Hydromorphone HCl (Dilaudid) 1 mg IV Q3H PRN PRN Reason: Pain , Severe (7-10) Last Admin: 10/15/17 03:31 Dose: 1 mg Exam - Physical Exam Narrative exam: Lying in bed in slight distress - Constitutional Vitals: Temp Pulse Resp BP Pulse Ox 98.0 F 74 24 115/78 98 10/14/17 23:02 10/15/17 03:03 10/15/17 03:31 10/15/17 03:03 10/15/17 03:03 General appearance: Present: no acute distress, severe distress, well-nourished , obese - EENT Eyes: Present: PERRL ENT: hearing intact, clear oral mucosa - Neck Neck: Present: supple, normal ROM - Respiratory Respiratory effort: normal Respiratory: bilateral: CTA, rales, rhonchi - Cardiovascular Heart rate: 70 Rhythm: regular Heart Sounds: Present: S1 & S2. Absent: rub, click - Extremities Extremities: no ischemia, pulses intact, pulses symmetrical, No edema Extremity abnormal: edema (2+) Peripheral Pulses: within normal limits - Abdominal General gastrointestinal: Present: soft, non-tender, non-distended, normal bowel sounds Male genitourinary: Present: normal - Rectal Rectal Exam: deferred - Integumentary Integumentary: Present: clear, warm, dry - Musculoskeletal Musculoskeletal: gait normal, strength equal bilaterally - Psychiatric Psychiatric: appropriate mood/affect, intact judgment & insight - Neurologic Neurologic: CNII-XII intact, moves all extremities - Allied Health Allied health notes reviewed: nursing, case management Results - Labs CBC & Chem 7: 10/14/17 23:11 10/14/17 23:11 Labs: Laboratory Last Values WBC 10.0 K/mm3 (4.5-11.0) 10/14/17 23:11 RBC 4.08 M/mm3 (3.65-5.03) 10/14/17 23:11 Hgb 11.8 gm/dl (11.8-15.2) 10/14/17 23:11 Hct 36.3 % (35.5-45.6) 10/14/17 23:11 MCV 89 fl (84-94) 10/14/17 23:11 MCH 29 pg (28-32) 10/14/17 23:11 MCHC 33 % (32-34) 10/14/17 23:11 RDW 17.8 % (13.2-15.2) H 10/14/17 23:11 Plt Count 223 K/mm3 (140-440) 10/14/17 23:11 Lymph % (Auto) 18.5 % (13.4-35.0) 10/14/17 23:11 [place] % (Auto) 6.8 % (0.0-7.3) 10/14/17 23:11 Eos % (Auto) 0.5 % (0.0-4.3) 10/14/17 23:11 Baso % (Auto) 1.0 % (0.0-1.8) 10/14/17 23:11 Lymph # 1.9 K/mm3 (1.2-5.4) 10/14/17 23:11 [place] # 0.7 K/mm3 (0.0-0.8) 10/14/17 23:11 Eos # 0.0 K/mm3 (0.0-0.4) 10/14/17 23:11 Baso # 0.1 K/mm3 (0.0-0.1) 10/14/17 23:11 Seg Neutrophils % 73.2 % (40.0-70.0) H 10/14/17 23:11 Seg Neutrophils # 7.3 K/mm3 (1.8-7.7) 10/14/17 23:11 Sodium 137 mmol/L (137-145) 10/14/17 23:11 Potassium 3.6 mmol/L (3.6-5.0) 10/14/17 23:11 Chloride 93.6 mmol/L (98-107) L 10/14/17 23:11 Carbon Dioxide 25 mmol/L (22-30) 10/14/17 23:11 Anion Gap 22 mmol/L 10/14/17 23:11 BUN 13 mg/dL (9-20) 10/14/17 23:11 Creatinine 1.4 mg/dL (0.8-1.5) 10/14/17 23:11 Estimated GFR 54 ml/min 10/14/17 23:11 BUN/Creatinine Ratio 9 % 10/14/17 23:11 Glucose 82 mg/dL (75-100) 10/14/17 23:11 Calcium 9.2 mg/dL (8.4-10.2) 10/14/17 23:11 Total Bilirubin 2.70 mg/dL (0.1-1.2) H 10/14/17 23:11 AST 10 units/L (5-40) 10/14/17 23:11 ALT 8 units/L (7-56) 10/14/17 23:11 Alkaline Phosphatase 56 units/L (35-129) 10/14/17 23:11 Troponin T 0.011 ng/mL (0.00-0.029) 10/14/17 23:11 NT-Pro-B Natriuret Pep 5770 pg/mL (0-450) H 10/14/17 23:11 Total Protein 6.9 g/dL (6.3-8.2) 10/14/17 23:11 Albumin 3.9 g/dL (3.9-5) 10/14/17 23:11 Albumin/Globulin Ratio 1.3 % 10/14/17 23:11 - Imaging and Cardiology EKG: report reviewed (atrial fibrillation/flutter and ventricular paced rhythm- interpreted by me) Assessment and Plan Advance Directives: Yes (full code) VTE prophylaxis?: Chemical Plan of care discussed with patient/family: Yes - Patient Problems (1) Acute exacerbation of CHF (congestive heart failure) Current Visit: Yes Status: Acute Qualifiers: Congestive heart failure type: combined Qualified Code(s): I50.43 - Acute on chronic combined systolic (congestive) and diastolic (congestive) heart failure Plan to address problem: IV diuretics for now. Patient has been consuming excessive liquids because of too many parties recently. Echo was done recently and hence not ordered (2) COPD exacerbation Current Visit: Yes Status: Acute Plan to address problem: patient also has chronic respiratory failure and COPD exacerbation. Patient initiated on nebulizer tr and IV Solu-Medrol and IV Levaquin. Pulmonary consult requested. (3) Atrial fibrillation and flutter Current Visit: Yes Status: Chronic Plan to address problem: Heart rate is in 70s.continue digoxin and beta blockers.Patient not on Coumadin or Eliquis. Will defer to cardiology regarding anticoagulation (4) Insulin dependent diabetes mellitus Current Visit: Yes Status: Acute Plan to address problem: continue insulin and glipizide. Glipizide may be stopped and switched to insulin totally. Check hemoglobin A1c (5) Gout Current Visit: Yes Status: Inactive Qualifiers: Gout site: unspecified site Plan to address problem: continue allopurinol (6) Hypertension Current Visit: Yes Status: Chronic Qualifiers: Hypertension type: essential hypertension Qualified Code(s): I10 - Essential (primary) hypertension Plan to address problem: continue Coreg . hydralazine and lisinopril (7) Coronary artery disease Current Visit: Yes Status: Chronic Qualifiers: Coronary Disease-Associated Artery/Lesion type: [place] artery [place] vs. transplanted heart: [place] heart Associated angina: with stable angina Qualified Code(s): I25.118 - Atherosclerotic heart disease of [place] coronary artery with other forms of angina pectoris Plan to address problem: continue isosorbide dinitrate (8) DVT prophylaxis Current Visit: Yes Status: Acute Plan to address problem: n Lovenox
[2017-10-15] MEDS ORDERED: MILK OF MAGNESIA PO PRN (04:26)
[2017-10-15] MEDS ORDERED: MORPHINE IV PRN (04:26)
[2017-10-15] MEDS ORDERED: TYLENOL PO PRN (04:26)
[2017-10-15] MEDS ORDERED: DULCOLAX PR PRN (04:26)
[2017-10-15] MEDS ORDERED: ZOFRAN IV PRN (04:26)
[2017-10-15] MEDS ORDERED: DUONEB *Not for PRN Use IH (04:41)
[2017-10-15] MEDS ORDERED: PROVENTIL IH PRN (05:06)
[2017-10-15] MEDS: LASIX IV SCH ×2 (07:16→17:11)
[2017-10-15] MEDS: DUONEB *Not for PRN Use IH SCH ×4 (07:24→20:28)
[2017-10-15] MEDS: NOVOLOG SUB-Q SCH ×4 (08:33→22:10)
[2017-10-15] MEDS ORDERED: K-DUR PO SCH (10:00)
[2017-10-15] MEDS ORDERED: BUMEX PO SCH (10:00)
[2017-10-15] MEDS ORDERED: HALFPRIN EC PO SCH (10:00)
[2017-10-15] MEDS ORDERED: DEMADEX PO SCH (10:00)
[2017-10-15] MEDS ORDERED: ZAROXOLYN PO SCH (10:00)
[2017-10-15] MEDS: ZYLOPRIM PO SCH (10:03)
[2017-10-15] MEDS: FEOSOL PO SCH ×2 (10:03→21:54)
[2017-10-15] MEDS: ECOTRIN PO SCH (10:03)
[2017-10-15] MEDS: COREG PO SCH ×2 (10:04→21:53)
[2017-10-15] MEDS: K-DUR PO SCH ×2 (10:04→22:10)
[2017-10-15] MEDS: MAG-OX PO SCH (10:04)
[2017-10-15] MEDS: GLUCOTROL PO SCH (10:04)
[2017-10-15] MEDS: ZESTRIL PO SCH (10:05)
[2017-10-15] MEDS: LEVAQUIN 750MG/150ML 750 MG/150 ML BAG IV SCH (10:20)
--- NOTE | 2017-10-15 10:43 | Consultation ---
History of Present Illness Consult date: 10/15/17 Requesting physician: NANCY HOLDEN Consult reason: congestive heart failure History of present illness: Patient is a 46-year-old male well-known to our service. He has a past medical history of end-stage cardiomyopathy status post AICD, hypertension, morbid obesity and renal failure. Patient presented to the hospital with complains of shortness of breath gradually worsening of her period of 3-4 days worse for the last 2 days. Patient opposes been compliant at this diet and medications. He also reports compliance with fluid restrictions. History of progressive orthopnea. No real chest pain. Past History Past Medical History: heart failure Past Surgical History: Other (AICD) Social history: no significant social history Family history: no significant family history Medications and Allergies Allergies Allergy/AdvReac Type Severity Reaction Status Date / Time cephalexin monohydrate Allergy Hives Verified 08/01/17 08:21 [From Keflex] lidocaine Allergy Hives Verified 03/09/15 22:20 mushrooms Allergy Swelling Uncoded 06/26/15 12:23 Home Medications Medication Instructions Recorded Confirmed Last Taken Type Ferrous Sulfate [Feosol 325 MG tab] 325 mg PO BID 05/19/15 10/14/17 08/01/17 04: 30 History Magnesium Oxide 400 mg PO DAILY 08/31/16 10/14/17 08/01/17 04:30 History glipiZIDE [Glucotrol] 10 mg PO QDAY 03/16/17 10/14/17 07/31/17 History Carvedilol [Coreg] 25 mg PO BID #60 tablet 06/10/17 10/14/17 08/01/17 04:30 Rx Lisinopril [Zestril TAB] 2.5 mg PO QDAY #30 tablet 06/10/17 10/14/17 08/01/17 04 :30 Rx Fluticasone/Salmeterol [Advair 1 each IH PRN PRN #1 blst.w.dev 07/09/17 Unknown Rx Diskus 500-50 mcg] Insulin Glargine,Hum.rec.anlog 20 units SQ QHS #5 pen 07/09/17 10/14/17 Rx [Lantus Solostar] Aspirin EC [Aspirin Enteric Coated 325 mg PO QDAY 1010/14/17 08/01/17 04: 30 History TAB] Isosorbide Dinitrate 10 mg PO Q8H #90 tablet 08/01/17 10/14/17 Unknown Rx Allopurinol 100 mg PO BID 09/05/17 10/14/17 Unknown History Bumetanide [Bumex 1 mg tab] 1 mg PO BID 09/05/17 10/14/17 Unknown History Potassium Chloride [K-Dur] 20 meq PO BID #30 tablet 09/08/17 10/14/17 Unknown Rx Digoxin 125 mcg PO DAILY 10/14/17 10/14/17 Unknown History Metolazone 5 mg PO QWEEK 10/14/17 10/14/17 Unknown History Torsemide [Demadex] 100 mg PO QDAY 10/14/17 10/14/17 Unknown History hydrALAZINE [Apresoline] 25 mg PO Q8HR 10/14/17 10/14/17 Unknown History Active Meds: Active Medications Acetaminophen (Tylenol) 650 mg PO Q4H PRN PRN Reason: Pain MILD(1-3)/Fever >100.5/KNIGHT Albuterol (Proventil) 2.5 mg IH Q3HRT PRN PRN Reason: Wheezing/ SOB Albuterol/Ipratropium (Duoneb *Not For Prn Use*) 1 ampul IH Q6HRT [facility] Last Admin: 10/15/17 07:24 Dose: 1 ampul Allopurinol (Zyloprim) 100 mg PO QDAY [facility] Last Admin: 10/15/17 10:03 Dose: 100 mg Aspirin (Ecotrin) 325 mg PO QDAY [facility] Last Admin: 10/15/17 10:03 Dose: 325 mg Bisacodyl (Dulcolax) 10 mg [place] QDAY PRN PRN Reason: Constipation unrelieved by MOM Carvedilol (Coreg) 25 mg PO BID [facility] Last Admin: 10/15/17 10:04 Dose: 25 mg Digoxin (Lanoxin) 0.125 mg PO DAILY@1700 [facility] Enoxaparin Sodium (Lovenox) 40 mg SUB-Q QDAY@2200 [facility] Ferrous Sulfate (Feosol) 325 mg PO BID [facility] Last Admin: 10/15/17 10:03 Dose: 325 mg Furosemide (Lasix) 60 mg IV 0600,1800 [facility] Last Admin: 10/15/17 07:16 Dose: 60 mg Glipizide (Glucotrol) 10 mg PO QDDIAB [facility] Last Admin: 10/15/17 10:04 Dose: 10 mg Hydralazine HCl (Apresoline) 25 mg PO Q8HR [facility] Hydromorphone HCl (Dilaudid) 1 mg IV Q3H PRN PRN Reason: Pain , Severe (7-10) Last Admin: 10/15/17 03:31 Dose: 1 mg Levofloxacin/Dextrose (Levaquin 750mg/150ml) 750 mg in 150 mls @ 100 mls/hr IV Q24HR [facility] PRN Reason: Protocol Last Admin: 10/15/17 10:20 Dose: 100 mls/hr Influenza Virus Vaccine Quadrival (Fluarix Quad [id number](36 Mos+) 0.5 ml IM .ONCE ONE Stop: 10/15/17 12:01 Insulin Aspart (Novolog) 0 units SUB-Q ACHS [facility] PRN Reason: Protocol Last Admin: 10/15/17 08:33 Dose: 4 units Insulin Detemir (Levemir) 20 units SUB-Q QHS [facility] Isosorbide Dinitrate (Isordil Titradose) 10 mg PO Q8HR [facility] Lisinopril (Zestril) 2.5 mg PO QDAY [facility] Last Admin: 10/15/17 10:05 Dose: 2.5 mg Magnesium Hydroxide (Milk Of Magnesia) 30 ml PO Q4H PRN PRN Reason: Constipation Magnesium Oxide (Mag-Ox) 400 mg PO DAILY [facility] Last Admin: 10/15/17 10:04 Dose: 400 mg Methylprednisolone Sodium Succinate (Solu-Medrol) 125 mg IV Q8HR [facility] Last Admin: 10/15/17 07:17 Dose: 125 mg Metolazone (Zaroxolyn) 5 mg PO Mo [facility] Last Admin: 10/15/17 10:04 Dose: 5 mg Morphine Sulfate (Morphine) 4 mg IV Q4H PRN PRN Reason: Pain , Severe (7-10) Ondansetron HCl (Zofran) 4 mg IV Q8H PRN PRN Reason: N/V unrelieved by Reglan Potassium Chloride (K-Dur) 20 meq PO BID [facility] Last Admin: 10/15/17 10:04 Dose: 20 meq Zolpidem Tartrate (Ambien) 5 mg PO QHS PRN PRN Reason: Insomnia Review of Systems All systems: negative (as mentioned in the H&P) Physical Examination Vital Signs Pulse Resp 72 25 H 10/14/17 22:50 10/14/17 22:50 Narrative exam: Vitals reviewed GEN: No acute distress noted, morbidly obese HEENT: Carotids 2+ NECK: Supple CVS: S1 and S2 heard no significant murmur or gallop noted LUNGS/CHEST: Normal auscultation ABD: Soft nontender Extremities: 2+ edema noted normal color NEURO: Alert moves all all 4 extremities PSY: Stable Results 10/14/17 23:11 10/14/17 23:11 Cardiac Enzymes 10/14/17 Range/Units 23:11 AST 10 (5-40) units/L CBC 10/14/17 Range/Units 23:11 WBC 10.0 (4.5-11.0) K/mm3 RBC 4.08 (3.65-5.03) M/mm3 Hgb 11.8 (11.8-15.2) gm/dl Hct 36.3 (35.5-45.6) % Plt Count 223 (140-440) K/mm3 Lymph # 1.9 (1.2-5.4) K/mm3 [place] # 0.7 (0.0-0.8) K/mm3 Eos # 0.0 (0.0-0.4) K/mm3 Baso # 0.1 (0.0-0.1) K/mm3 Comprehensive Metabolic Panel 10/14/17 Range/Units 23:11 Sodium 137 (137-145) mmol/L Potassium 3.6 (3.6-5.0) mmol/L Chloride 93.6 L (98-107) mmol/L Carbon Dioxide 25 (22-30) mmol/L BUN 13 (9-20) mg/dL Creatinine 1.4 (0.8-1.5) mg/dL Glucose 82 (75-100) mg/dL Calcium 9.2 (8.4-10.2) mg/dL AST 10 (5-40) units/L ALT 8 (7-56) units/L Alkaline Phosphatase 56 (35-129) units/L Total Protein 6.9 (6.3-8.2) g/dL Albumin 3.9 (3.9-5) g/dL EKG interpretations - Telemetry EKG Rhythm: Paced Assessment and Plan Impression 1. Shortness of breath acute on chronic systolic heart failure 2. End-stage cardiomyopathy stage B-C class III symptoms 3. EKG suggestive of A. fib/flutter with demand pacing 4. Moderate to severe pulmonary hypertension 5. History of renal failure 6. History of PE off is now 7. Morbid obesity Plan Agree with high-dose intravenous diuretics Continue Coreg and lisinopril In view of the atrial flutter will restart patient on a liquid Monitor renal function and ins and outs
[2017-10-15] MEDS ORDERED: Fluarix Quad 2017-2018(36 MOS+ IM ONE (12:00)
[2017-10-15] MEDS: APRESOLINE PO SCH ×3 (13:19→21:52)
[2017-10-15] MEDS: ISORDIL TITRADOSE PO SCH ×3 (13:20→21:53)
--- NOTE | 2017-10-15 14:55 | Consultation ---
History of Present Illness Consult date: 10/15/17 Reason for consult: dyspnea History of present illness: Patient is a 46-year-old male with a past medical history of asthma, PE, CHF, COPD, CAD, defibrillator, hypertension, sleep apnea, and previous episodes of renal insufficiency who presents to the hospital with complains of shortness of breath 2 days. Until day before yesterday the patient was at his normal baseline state of health. Now he has had progressive worsening of his dyspnea on exertion to where he cannot walk across a room or talk while sitting up without becoming short of breath. Patient used Combivent and nebulizer treatment prior to hospitalization without improvement. Additionally, he has a productive cough with whitish sputum. He has had no fevers, chills, or night sweats. He reports feeling like he is wheezing, but no dyspnea at rest (as long as he is lying down). he reported orthopnea, and paroxysmal nocturnal dyspnea. Patient has previous history of smoking, quit 40 years ago. No hx of recurrent pneumonia. He has no sick contacts. He also has no pets, has not been around any farm animals, and has not traveled recently or been around those who have. Patient was on Eliquis for PE was discontinued by Dr. 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 Patient also complain of 2 days history of right lower rib cage pain which increases with deep breathing, cough and movement Past History Past Medical History: CAD, heart failure, pulmonary embolism, other ( obstructive sleep apnea on CPAP therapy) Past Surgical History: Other (AICD) Social history: no significant social history Family history: no significant family history Medications and Allergies Allergies Allergy/AdvReac Type Severity Reaction Status Date / Time cephalexin monohydrate Allergy Hives Verified 08/01/17 08:21 [From Keflex] lidocaine Allergy Hives Verified 03/09/15 22:20 mushrooms Allergy Swelling Uncoded 06/26/15 12:23 Home Medications Medication Instructions Recorded Confirmed Last Taken Type Ferrous Sulfate [Feosol 325 MG tab] 325 mg PO BID 05/19/15 10/14/17 08/01/17 04: 30 History Magnesium Oxide 400 mg PO DAILY 08/31/16 10/14/17 08/01/17 04:30 History glipiZIDE [Glucotrol] 10 mg PO QDAY 03/16/17 10/14/17 07/31/17 History Carvedilol [Coreg] 25 mg PO BID #60 tablet 06/10/17 10/14/17 08/01/17 04:30 Rx Lisinopril [Zestril TAB] 2.5 mg PO QDAY #30 tablet 06/10/17 10/14/17 08/01/17 04 :30 Rx Fluticasone/Salmeterol [Advair 1 each IH PRN PRN #1 blst.w.dev 07/09/17 Unknown Rx Diskus 500-50 mcg] Insulin Glargine,Hum.rec.anlog 20 units SQ QHS #5 pen 07/09/17 10/14/17 Rx [Lantus Solostar] Aspirin EC [Aspirin Enteric Coated 325 mg PO QDAY 08/01/17 10/14/17 08/01/17 04: 30 History TAB] Isosorbide Dinitrate 10 mg PO Q8H #90 tablet 08/01/17 10/14/17 Unknown Rx Allopurinol 100 mg PO BID 09/05/17 10/14/17 Unknown History Bumetanide [Bumex 1 mg tab] 1 mg PO BID 09/05/17 10/14/17 Unknown History Potassium Chloride [K-Dur] 20 meq PO BID #30 tablet 09/08/17 10/14/17 Unknown Rx Digoxin 125 mcg PO DAILY 10/14/17 10/14/17 Unknown History Metolazone 5 mg PO QWEEK 10/14/17 10/14/17 Unknown History Torsemide [Demadex] 100 mg PO QDAY 10/14/17 10/14/17 Unknown History hydrALAZINE [Apresoline] 25 mg PO Q8HR 10/14/17 10/14/17 Unknown History Active Meds: Active Medications Acetaminophen (Tylenol) 650 mg PO Q4H PRN PRN Reason: Pain MILD(1-3)/Fever >100.5/KNIGHT Albuterol (Proventil) 2.5 mg IH Q3HRT PRN PRN Reason: Wheezing/ SOB Albuterol/Ipratropium (Duoneb *Not For Prn Use*) 1 ampul IH Q6HRT [facility] Last Admin: 10/15/17 13:39 Dose: 1 ampul Allopurinol (Zyloprim) 100 mg PO QDAY [facility] Last Admin: 10/15/17 10:03 Dose: 100 mg Apixaban (Eliquis) 5 mg PO Q12HR [facility] PRN Reason: Protocol Aspirin (Ecotrin) 325 mg PO QDAY [facility] Last Admin: 10/15/17 10:03 Dose: 325 mg Bisacodyl (Dulcolax) 10 mg [place] QDAY PRN PRN Reason: Constipation unrelieved by MOM Carvedilol (Coreg) 25 mg PO BID [facility] Last Admin: 10/15/17 10:04 Dose: 25 mg Digoxin (Lanoxin) 0.125 mg PO DAILY@1700 [facility] Ferrous Sulfate (Feosol) 325 mg PO BID [facility] Last Admin: 10/15/17 10:03 Dose: 325 mg Furosemide (Lasix) 60 mg IV 0600,1800 [facility] Last Admin: 10/15/17 07:16 Dose: 60 mg Glipizide (Glucotrol) 10 mg PO QDDIAB [facility] Last Admin: 10/15/17 10:04 Dose: 10 mg Hydralazine HCl (Apresoline) 25 mg PO Q8HR [facility] Last Admin: 10/15/17 13:19 Dose: 25 mg Hydromorphone HCl (Dilaudid) 1 mg IV Q3H PRN PRN Reason: Pain , Severe (7-10) Last Admin: 10/15/17 03:31 Dose: 1 mg Levofloxacin/Dextrose (Levaquin 750mg/150ml) 750 mg in 150 mls @ 100 mls/hr IV Q24HR [facility] PRN Reason: Protocol Last Admin: 10/15/17 10:20 Dose: 100 mls/hr Insulin Aspart (Novolog) 0 units SUB-Q ACHS [facility] PRN Reason: Protocol Last Admin: 10/15/17 12:37 Dose: 4 units Insulin Detemir (Levemir) 20 units SUB-Q QHS [facility] Isosorbide Dinitrate (Isordil Titradose) 10 mg PO Q8HR [facility] Last Admin: 10/15/17 13:20 Dose: 10 mg Lisinopril (Zestril) 2.5 mg PO QDAY [facility] Last Admin: 10/15/17 10:05 Dose: 2.5 mg Magnesium Hydroxide (Milk Of Magnesia) 30 ml PO Q4H PRN PRN Reason: Constipation Magnesium Oxide (Mag-Ox) 400 mg PO DAILY [facility] Last Admin: 10/15/17 10:04 Dose: 400 mg Methylprednisolone Sodium Succinate (Solu-Medrol) 125 mg IV Q8HR [facility] Last Admin: 10/15/17 13:23 Dose: 125 mg Metolazone (Zaroxolyn) 5 mg PO Mo [facility] Last Admin: 10/15/17 10:04 Dose: 5 mg Morphine Sulfate (Morphine) 4 mg IV Q4H PRN PRN Reason: Pain , Severe (7-10) Ondansetron HCl (Zofran) 4 mg IV Q8H PRN PRN Reason: N/V unrelieved by Reglan Potassium Chloride (K-Dur) 20 meq PO BID [facility] Last Admin: 10/15/17 10:04 Dose: 20 meq Zolpidem Tartrate (Ambien) 5 mg PO QHS PRN PRN Reason: Insomnia Review of Systems All systems: negative Constitutional: weight gain Cardiovascular: edema Respiratory: cough with sputum, shortness of breath, dyspnea on exertion, wheezing, pain on inspiration Physical Examination Vital signs: Vital Signs Pulse Resp 72 25 H 10/14/17 22:50 10/14/17 22:50 General appearance: no acute distress, other (morbidly obese) ENT: oropharynx moist, other (severely crowded Mallampati class IV) Neck: supple Ascultation: Bilateral: diminished breath sounds, wheezes, rales, rhonchi Cardiovascular: irregular rhythm Gastrointestinal: normoactive bowel sounds, soft, non-tender, other (orbitally obese) Extremities: no cyanosis, edema (1+) Musculoskeletal: no deformities Gait: other (not examined) normal mental status, non-focal exam mood appropriate Results - Laboratory Findings CBC and BMP: 10/14/17 23:11 10/14/17 23:11 Abnormal lab findings: Abnormal Labs 10/14/17 10/14/17 10/14/17 23:11 23:11 23:11 RDW 17.8 H Seg Neutrophils % 73.2 H Chloride 93.6 L POC Glucose Hemoglobin A1c Total Bilirubin 2.70 H NT-Pro-B Natriuret Pep 5770 H 10/15/17 10/15/17 10/15/17 04:49 08:01 11:18 RDW Seg Neutrophils % Chloride POC Glucose 262 H 299 H Hemoglobin A1c 6.5 H Total Bilirubin NT-Pro-B Natriuret Pep - Diagnostic Findings Chest x-ray: image reviewed (slight cardiomegaly, obesity left-sided AICD and no mild vascular congestion) Assessment and Plan Impression: Suspect congestive heart failure as a cause of shortness of breath Rule out underlying COPD given history of smoking in the past Sinus congestion and drainage causing cough and shortness of breath. Congestive heart failure Pulmonary hypertension History of atrial fibrillation. Right-sided chest wall pain probably related to strained rib/muscle secondary to cough Recommendation; Flonase for postnasal drainage Continue with steroids, diuretics and nebulizer treatments. Closely monitor him.
[2017-10-15] MEDS: FLONASE NS SCH (17:08)
[2017-10-15] MEDS: LANOXIN PO SCH (17:12)
[2017-10-15] MEDS: ELIQUIS PO SCH (21:53)
[2017-10-15] MEDS: LEVEMIR SUB-Q SCH (21:54)
[2017-10-15] MEDS ORDERED: LOVENOX SUB-Q SCH (22:00)
[2017-10-15] MEDS ORDERED: NON-FORMULARY (Insulin Glargine,Hum.Rec.Anlog [Lantus Solostar] 20 UNITS) SQ SCH (22:00)
[2017-10-16] MEDS: DUONEB *Not for PRN Use IH SCH ×4 (02:00→20:24)
[2017-10-16] MEDS: APRESOLINE PO SCH ×3 (05:31→21:31)
[2017-10-16] MEDS: LASIX IV SCH ×2 (05:31→18:01)
[2017-10-16 05:56] LABS: Basophils % (Auto) 0.1 % (0.0-1.8); Hemoglobin 12.4 gm/dl (11.8-15.2); Lymphocytes # (Auto) 0.8 K/mm3 (1.2-5.4); Lymphocytes % (Auto) 5.5 % (13.4-35.0); Mean Corpuscular HGB Conc 33 % (32-34); Mean Corpuscular Hemoglobin 29 pg (28-32); Mean Corpuscular Volume 88 fl (84-94); Monocytes # (Auto) 0.7 K/mm3 (0.0-0.8); Monocytes % (Auto) 4.7 % (0.0-7.3); Platelet Count 233 K/mm3 (140-440); Red Blood Count 4.31 M/mm3 (3.65-5.03); Red Cell Distribution Width 18.1 % (13.2-15.2)
[2017-10-16 06:19] LABS: Albumin 3.7 g/dL (3.9-5); Calcium 9.7 mg/dL (8.4-10.2)
[2017-10-16] MEDS: GLUCOTROL PO SCH (08:01)
[2017-10-16] MEDS: NOVOLOG SUB-Q SCH ×4 (08:02→21:32)
[2017-10-16] MEDS: ECOTRIN PO SCH (10:13)
[2017-10-16] MEDS: FLONASE NS SCH (10:13)
[2017-10-16] MEDS: FEOSOL PO SCH ×2 (10:13→21:31)
[2017-10-16] MEDS: ELIQUIS PO SCH ×2 (10:14→21:31)
[2017-10-16] MEDS: ZESTRIL PO SCH (10:14)
[2017-10-16] MEDS: MAG-OX PO SCH (10:14)
[2017-10-16] MEDS: COREG PO SCH ×2 (10:15→21:31)
[2017-10-16] MEDS: LEVAQUIN 750MG/150ML 750 MG/150 ML BAG IV SCH (10:15)
[2017-10-16] MEDS: ZYLOPRIM PO SCH (10:15)
[2017-10-16] MEDS: K-DUR PO SCH ×2 (10:15→21:31)
--- NOTE | 2017-10-16 11:40 | Progress Note ---
Assessment and Plan - Patient Problems (1) Acute on chronic systolic heart failure Current Visit: Yes Status: Acute Plan to address problem: Continue medical therapy including diuretics, afterload reducing agents, beta blockers as tolerated. Subjective Date of service: 10/16/17 Interval history: The patient is comfortable, supine in his bed, on his CPAP machine, no cardiac complaints. Objective Vital Signs Temp Pulse Pulse Resp Resp Resp BP 10/16/17 10:15 68 137/84 10/16/17 10:14 68 137/84 10/16/17 08:20 89 18 10/16/17 08:10 88 18 10/16/17 07:33 97.6 F 44 L 20 129/82 10/16/17 06:09 74 10/16/17 05:00 72 10/16/17 04:43 97.6 F 70 22 118/79 10/16/17 00:42 98.0 F 69 70 H 145/80 10/15/17 22:25 20 10/15/17 22:00 20 10/15/17 21:55 22 10/15/17 21:53 53 L 138/72 10/15/17 21:52 53 L 138/70 10/15/17 21:00 74 10/15/17 20:40 76 20 10/15/17 20:29 53 L 20 10/15/17 20:06 97.6 F 73 24 138/70 10/15/17 17:12 75 10/15/17 16:12 97.7 F 71 20 137/83 10/15/17 14:00 98.4 F 95 H 18 10/15/17 13:50 74 18 10/15/17 13:39 70 18 10/15/17 13:03 10/15/17 13:00 75 BP Pulse Ox 10/16/17 10:15 10/16/17 10:14 10/16/17 08:20 10/16/17 08:10 10/16/17 07:33 93 10/16/17 06:09 10/16/17 05:00 10/16/17 04:43 94 10/16/17 00:42 97 10/15/17 22:25 10/15/17 22:00 97 10/15/17 21:55 10/15/17 21:53 10/15/17 21:52 10/15/17 21:00 10/15/17 20:40 10/15/17 20:29 10/15/17 20:06 95 10/15/17 17:12 10/15/17 16:12 95 10/15/17 14:00 115/57 92 10/15/17 13:50 10/15/17 13:39 10/15/17 13:03 94 10/15/17 13:00 - Physical Examination General: No Apparent Distress, Other (morbidly obese) HEENT: Positive: PERRL Neck: Positive: neck supple Cardiac: Positive: Reg Rate and Rhythm Lungs: Positive: Decreased Breath Sounds Neuro: Positive: Grossly Intact Abdomen: Positive: Soft Skin: Positive: Clear Extremities: Absent: edema - Labs and Meds Cardiac Enzymes 10/16/17 Range/Units 04:35 AST 14 (5-40) units/L CBC 10/16/17 Range/Units 04:35 WBC 15.1 H (4.5-11.0) K/mm3 RBC 4.31 (3.65-5.03) M/mm3 Hgb 12.4 (11.8-15.2) gm/dl Hct 38.0 (35.5-45.6) % Plt Count 233 (140-440) K/mm3 Lymph # 0.8 L (1.2-5.4) K/mm3 [place] # 0.7 (0.0-0.8) K/mm3 Eos # 0.0 (0.0-0.4) K/mm3 Baso # 0.0 (0.0-0.1) K/mm3 Comprehensive Metabolic Panel 10/16/17 Range/Units 04:35 Sodium 131 L (137-145) mmol/L Potassium 3.9 (3.6-5.0) mmol/L Chloride 86.8 L (98-107) mmol/L Carbon Dioxide 26 (22-30) mmol/L BUN 21 H (9-20) mg/dL Creatinine 1.3 (0.8-1.5) mg/dL Glucose 243 H (75-100) mg/dL Calcium 9.7 (8.4-10.2) mg/dL AST 14 (5-40) units/L ALT 9 (7-56) units/L Alkaline Phosphatase 59 (35-129) units/L Total Protein 7.4 (6.3-8.2) g/dL Albumin 3.7 L (3.9-5) g/dL - Imaging and Cardiology EKG: report reviewed (atrial fibrillation/flutter and ventricular paced rhythm- interpreted by me)
--- NOTE | 2017-10-16 13:32 | Progress Note ---
Assessment and Plan Assessment and plan: (1) Acute on chronic systolic and diastolic exacerbation of CHF (congestive heart failure) S/P Biventricular ICD Continue IV diuretics for now. Patient has been consuming excessive liquids because of too many parties recently. Echo was done recently and hence not ordered Heart failure education Fluid restriction (2) COPD exacerbation Current Visit: Yes Status: Acute Plan to address problem: patient also has chronic respiratory failure and COPD exacerbation. Patient initiated on nebulizer tr and IV Solu-Medrol and IV Levaquin. Pulmonary consult noted. Flonase (3) Atrial fibrillation and flutter Current Visit: Yes Status: Chronic Plan to address problem: Heart rate is in 70s.continue digoxin and beta blockers.Patient not on Coumadin or Eliquis. Will defer to cardiology regarding anticoagulation (4) Insulin dependent diabetes mellitus Current Visit: Yes Status: Acute Plan to address problem: continue insulin and glipizide. Glipizide may be stopped and switched to insulin totally. Check hemoglobin A1c (5) Gout Current Visit: Yes Status: Inactive Qualifiers: Gout site: unspecified site Plan to address problem: continue allopurinol (6) Hypertension Current Visit: Yes Status: Chronic Qualifiers: Hypertension type: essential hypertension Qualified Code(s): I10 - Essential (primary) hypertension Plan to address problem: continue Coreg . hydralazine and lisinopril (7) Coronary artery disease Current Visit: Yes Status: Chronic Qualifiers: Coronary Disease-Associated Artery/Lesion type: [place] artery [place] vs. transplanted heart: [place] heart Associated angina: with stable angina Qualified Code(s): I25.118 - Atherosclerotic heart disease of [place] coronary artery with other forms of angina pectoris Plan to address problem: continue isosorbide dinitrate (8) DVT prophylaxis Current Visit: Yes Status: Acute Plan to address problem: Lovenox History Interval history: Patient seen and examined still with some shortness of breath, no chest pain Hospitalist Physical - Physical exam Narrative exam: VITAL SIGNS: Reviewed. GENERAL: Morbidly obese, with mild shortness of breath. Vital signs as documented. HEAD: No signs of head trauma. EYES: Pupils are equal. Extraocular motions intact. EARS: Hearing grossly intact. MOUTH: Oropharynx is normal. NECK: No adenopathy, no JVD. CHEST: Chest with diminished breath sounds bilaterally. No wheezes, rales, or rhonchi. CARDIAC: Regular rate and rhythm. S1 and S2, without murmurs, gallops, or rubs. VASCULAR: No Edema. Peripheral pulses normal and equal in all extremities. ABDOMEN: Soft, without detectable tenderness. No sign of distention. No rebound or guarding, and no masses palpated. Bowel Sounds normal. MUSCULOSKELETAL: Good range of motion of all major joints. Extremities without clubbing, cyanosis or edema. NEUROLOGIC EXAM: Alert and oriented x 3. No focal sensory or strength deficits. Speech normal. Follows commands. PSYCHIATRIC: Mood normal. SKIN: Multiple skin tattoos. - Constitutional Vitals: Temp Pulse Resp BP Pulse Ox 97.3 F L 53 L 20 133/78 97 10/16/17 11:59 10/16/17 11:59 10/16/17 11:59 10/16/17 11:59 10/16/17 11:59 General appearance: Present: no acute distress, severe distress, well-nourished , obese Results - Labs CBC & Chem 7: 10/16/17 04:35 10/16/17 04:35 Labs: Laboratory Last Values WBC 15.1 K/mm3 (4.5-11.0) H 10/16/17 04:35 RBC 4.31 M/mm3 (3.65-5.03) 10/16/17 04:35 Hgb 12.4 gm/dl (11.8-15.2) 10/16/17 04:35 Hct 38.0 % (35.5-45.6) 10/16/17 04:35 MCV 88 fl (84-94) 10/16/17 04:35 MCH 29 pg (28-32) 10/16/17 04:35 MCHC 33 % (32-34) 10/16/17 04:35 RDW 18.1 % (13.2-15.2) H 10/16/17 04:35 Plt Count 233 K/mm3 (140-440) 10/16/17 04:35 Lymph % (Auto) 5.5 % (13.4-35.0) L 10/16/17 04:35 [place] % (Auto) 4.7 % (0.0-7.3) 10/16/17 04:35 Eos % (Auto) 0.0 % (0.0-4.3) 10/16/17 04:35 Baso % (Auto) 0.1 % (0.0-1.8) 10/16/17 04:35 Lymph # 0.8 K/mm3 (1.2-5.4) L 10/16/17 04:35 [place] # 0.7 K/mm3 (0.0-0.8) 10/16/17 04:35 Eos # 0.0 K/mm3 (0.0-0.4) 10/16/17 04:35 Baso # 0.0 K/mm3 (0.0-0.1) 10/16/17 04:35 Seg Neutrophils % 89.7 % (40.0-70.0) H 10/16/17 04:35 Seg Neutrophils # 13.5 K/mm3 (1.8-7.7) H 10/16/17 04:35 Sodium 131 mmol/L (137-145) L 10/16/17 04:35 Potassium 3.9 mmol/L (3.6-5.0) 10/16/17 04:35 Chloride 86.8 mmol/L (98-107) L 10/16/17 04:35 Carbon Dioxide 26 mmol/L (22-30) 10/16/17 04:35 Anion Gap 22 mmol/L 10/16/17 04:35 BUN 21 mg/dL (9-20) H 10/16/17 04:35 Creatinine 1.3 mg/dL (0.8-1.5) 10/16/17 04:35 Estimated GFR 59 ml/min 10/16/17 04:35 BUN/Creatinine Ratio 16 % 10/16/17 04:35 Glucose 243 mg/dL (75-100) H 10/16/17 04:35 POC Glucose 252 (70-105) H 10/16/17 12:04 Hemoglobin A1c 6.5 % (4-6) H 10/15/17 04:49 Calcium 9.7 mg/dL (8.4-10.2) 10/16/17 04:35 Total Bilirubin 2.30 mg/dL (0.1-1.2) H 10/16/17 04:35 AST 14 units/L (5-40) 10/16/17 04:35 ALT 9 units/L (7-56) 10/16/17 04:35 Alkaline Phosphatase 59 units/L (35-129) 10/16/17 04:35 Troponin T 0.011 ng/mL (0.00-0.029) 10/14/17 23:11 NT-Pro-B Natriuret Pep 5770 pg/mL (0-450) H 10/14/17 23:11 Total Protein 7.4 g/dL (6.3-8.2) 10/16/17 04:35 Albumin 3.7 g/dL (3.9-5) L 10/16/17 04:35 Albumin/Globulin Ratio 1.0 % 10/16/17 04:35 - Imaging and Cardiology Chest x-ray: image reviewed (improved areation)
--- NOTE | 2017-10-16 14:46 | Progress Note ---
Assessment and Plan Imp: 1. NICMP 2. A/C systolic CHF 3. Acute respiratory failure, hypoxia 4. ? COPD exac. 5. [place], morbid obesity 6. Pulm HTN 7. Afib Rec: 1. Decrease Solumedrol 2. Lasix 3. Bronchodilators 4. LE dopplers; not sure it is worthwhile to repeat CTA chest or V/Q (neg 06/2017 ) as he is now on Eliquis anyway 5. CPAP QHS and prn 6. Check ABG 7. Outpatient PFTs Plan of care reviewed with patient, he understands/agrees Subjective Date of service: 10/16/17 Principal diagnosis: Acute resp. failure Interval history: No events. On his home CPAP machine. SOB is not any better. Denies chest pain, cough, sputum, new complaints. Active Medications Acetaminophen (Tylenol) 650 mg PO Q4H PRN PRN Reason: Pain MILD(1-3)/Fever >100.5/KNIGHT Albuterol (Proventil) 2.5 mg IH Q3HRT PRN PRN Reason: Wheezing/ SOB Albuterol/Ipratropium (Duoneb *Not For Prn Use*) 1 ampul IH Q6HRT [facility] Last Admin: 10/16/17 13:45 Dose: 1 ampul Allopurinol (Zyloprim) 100 mg PO QDAY [facility] Last Admin: 10/16/17 10:15 Dose: 100 mg Apixaban (Eliquis) 5 mg PO Q12HR [facility] PRN Reason: Protocol Last Admin: 10/16/17 10:14 Dose: 5 mg Aspirin (Ecotrin) 325 mg PO QDAY [facility] Last Admin: 10/16/17 10:13 Dose: 325 mg Bisacodyl (Dulcolax) 10 mg [place] QDAY PRN PRN Reason: Constipation unrelieved by MOM Carvedilol (Coreg) 25 mg PO BID [facility] Last Admin: 10/16/17 10:15 Dose: 25 mg Digoxin (Lanoxin) 0.125 mg PO DAILY@1700 [facility] Last Admin: 10/15/17 17:12 Dose: 0.125 mg Ferrous Sulfate (Feosol) 325 mg PO BID [facility] Last Admin: 10/16/17 10:13 Dose: 325 mg Fluticasone Propionate (Flonase) 200 mcg NS QDAY [facility] Last Admin: 10/16/17 10:13 Dose: 200 mcg Furosemide (Lasix) 60 mg IV 0600,1800 [facility] Last Admin: 10/16/17 05:31 Dose: 60 mg Glipizide (Glucotrol) 10 mg PO QDDIAB [facility] Last Admin: 10/16/17 08:01 Dose: 10 mg Hydralazine HCl (Apresoline) 25 mg PO Q8HR [facility] Last Admin: 10/16/17 05:31 Dose: 25 mg Hydromorphone HCl (Dilaudid) 1 mg IV Q3H PRN PRN Reason: Pain , Severe (7-10) Last Admin: 10/15/17 21:55 Dose: 1 mg Levofloxacin/Dextrose (Levaquin 750mg/150ml) 750 mg in 150 mls @ 100 mls/hr IV Q24HR [facility] PRN Reason: Protocol Last Admin: 10/16/17 10:15 Dose: 100 mls/hr Insulin Aspart (Novolog) 0 units SUB-Q ACHS [facility] PRN Reason: Protocol Last Admin: 10/16/17 12:26 Dose: 4 units Insulin Detemir (Levemir) 20 units SUB-Q QHS [facility] Last Admin: 10/15/17 21:54 Dose: 20 units Isosorbide Dinitrate (Isordil Titradose) 10 mg PO Q8HR [facility] Last Admin: 10/15/17 21:53 Dose: 10 mg Lisinopril (Zestril) 2.5 mg PO QDAY [facility] Last Admin: 10/16/17 10:14 Dose: 2.5 mg Magnesium Hydroxide (Milk Of Magnesia) 30 ml PO Q4H PRN PRN Reason: Constipation Magnesium Oxide (Mag-Ox) 400 mg PO DAILY [facility] Last Admin: 10/16/17 10:14 Dose: 400 mg Methylprednisolone Sodium Succinate (Solu-Medrol) 40 mg IV Q8HR [facility] Metolazone (Zaroxolyn) 5 mg PO Mo [facility] Last Admin: 10/15/17 10:04 Dose: 5 mg Morphine Sulfate (Morphine) 4 mg IV Q4H PRN PRN Reason: Pain , Severe (7-10) Ondansetron HCl (Zofran) 4 mg IV Q8H PRN PRN Reason: N/V unrelieved by Reglan Potassium Chloride (K-Dur) 20 meq PO BID [facility] Last Admin: 10/16/17 10:15 Dose: 20 meq Zolpidem Tartrate (Ambien) 5 mg PO QHS PRN PRN Reason: Insomnia Objective Vital Signs - 12hr 10/16/17 10/16/17 10/16/17 04:43 05:00 06:09 Temperature 97.6 F Pulse Rate 70 72 74 Pulse Rate [ Anterior Bilateral Throughout] Respiratory 22 Rate Respiratory Rate [Anterior Bilateral Throughout] Blood Pressure 118/79 O2 Sat by Pulse 94 Oximetry 10/16/17 10/16/17 10/16/17 07:33 08:10 08:20 Temperature 97.6 F Pulse Rate 44 L Pulse Rate [ 88 89 Anterior Bilateral Throughout] Respiratory 20 Rate Respiratory 18 18 Rate [Anterior Bilateral Throughout] Blood Pressure 129/82 O2 Sat by Pulse 93 Oximetry 10/16/17 10/16/17 10/16/17 10:00 10:14 10:15 Temperature Pulse Rate 68 68 Pulse Rate [ Anterior Bilateral Throughout] Respiratory Rate Respiratory Rate [Anterior Bilateral Throughout] Blood Pressure 137/84 137/84 O2 Sat by Pulse 100 Oximetry 10/16/17 10/16/17 11:56 11:59 Temperature 97.3 F L Pulse Rate 70 53 L Pulse Rate [ Anterior Bilateral Throughout] Respiratory 20 Rate Respiratory Rate [Anterior Bilateral Throughout] Blood Pressure 133/78 O2 Sat by Pulse 97 Oximetry Constitutional: no acute distress, other (morbidly obese) ENT: oropharynx moist, other (severely crowded Mallampati class IV) Neck: supple Effort: normal Ascultation: Bilateral: diminished breath sounds (2/2 obesity) Cardiovascular: irregular rhythm (no mrg) Gastrointestinal: normoactive bowel sounds, soft, non-tender, other (obese abd) Extremities: no cyanosis, edema (1+) Neurologic: normal mental status, non-focal exam Psychiatric: mood appropriate, affect normal CBC and BMP: 10/16/17 04:35 10/16/17 04:35 Abnormal lab findings: Abnormal Labs 10/14/17 10/14/17 10/14/17 23:11 23:11 23:11 WBC RDW 17.8 H Lymph % (Auto) Lymph # Seg Neutrophils % 73.2 H Seg Neutrophils # Sodium Chloride 93.6 L BUN Glucose POC Glucose Hemoglobin A1c Total Bilirubin 2.70 H NT-Pro-B Natriuret Pep 5770 H Albumin 10/15/17 10/15/17 10/15/17 04:49 08:01 11:18 WBC RDW Lymph % (Auto) Lymph # Seg Neutrophils % Seg Neutrophils # Sodium Chloride BUN Glucose POC Glucose 262 H 299 H Hemoglobin A1c 6.5 H Total Bilirubin NT-Pro-B Natriuret Pep Albumin 10/15/17 10/15/17 10/16/17 16:19 21:52 04:35 WBC 15.1 H RDW 18.1 H Lymph % (Auto) 5.5 L Lymph # 0.8 L Seg Neutrophils % 89.7 H Seg Neutrophils # 13.5 H Sodium Chloride BUN Glucose POC Glucose 192 H 224 H Hemoglobin A1c Total Bilirubin NT-Pro-B Natriuret Pep Albumin 10/16/17 10/16/17 10/16/17 04:35 07:41 12:04 WBC RDW Lymph % (Auto) Lymph # Seg Neutrophils % Seg Neutrophils # Sodium 131 L Chloride 86.8 L BUN 21 H Glucose 243 H POC Glucose 193 H 252 H Hemoglobin A1c Total Bilirubin 2.30 H NT-Pro-B Natriuret Pep Albumin 3.7 L Chest x-ray: report reviewed, image reviewed
[2017-10-16] MEDS: ISORDIL TITRADOSE PO SCH ×2 (15:56→21:30)
[2017-10-16] MEDS: LANOXIN PO SCH ×2 (15:58→18:01)
[2017-10-16] MEDS ORDERED: CEPACOL X STRENGTH MM PRN (15:59)
[2017-10-16] MEDS: LEVEMIR SUB-Q SCH (21:30)
[2017-10-16] MEDS: DILAUDID IV PRN (23:13)
[2017-10-17] MEDS: AMBIEN PO PRN ×2 (01:19→23:26)
[2017-10-17] MEDS: DUONEB *Not for PRN Use IH SCH ×4 (02:33→21:51)
[2017-10-17] MEDS: DILAUDID IV PRN ×2 (06:38→17:41)
[2017-10-17] MEDS: LASIX IV SCH ×2 (06:39→17:40)
[2017-10-17] MEDS: APRESOLINE PO SCH ×3 (06:39→21:45)
[2017-10-17] MEDS: ISORDIL TITRADOSE PO SCH ×3 (06:39→21:44)
[2017-10-17] MEDS: NOVOLOG SUB-Q SCH ×4 (08:38→21:52)
[2017-10-17] MEDS: GLUCOTROL PO SCH (08:40)
--- NOTE | 2017-10-17 10:11 | Progress Note ---
<ROSA ISELA CARSON - Last Filed: 10/17/17 10:13> Assessment and Plan Acute on chronic systolic heart failure Afib/flutter with demand pacing initiated on eliquis for oral anticoagulation. Dilated nonischemic cardiomyopathy, EF 10-15% normal coronaries by [facility] 09/2015 Chronic obstructive pulmonary disease Severe Pulmonary Hypertension Essential hypertension Type 2 diabetes mellitus Obstructive sleep apnea Presence of METAL FLOW COORDINATOR-ICD (Medtronic) Hx of VT/VF Subjective Date of service: 10/17/17 Principal diagnosis: Acute resp. failure Interval history: Patient reports some improvement in shortness of breath. Objective Vital Signs Temp Pulse Pulse Resp Resp BP BP 10/17/17 08:36 68 20 10/17/17 08:19 53 L 20 10/17/17 08:06 98.4 F 65 20 141/81 10/17/17 03:47 97.8 F 75 17 133/68 10/16/17 21:45 10/16/17 20:34 70 20 10/16/17 20:24 68 20 10/16/17 19:43 97.4 F L 78 23 125/75 10/16/17 19:28 87 10/16/17 17:06 98.4 F 74 20 132/69 10/16/17 14:10 91 H 18 10/16/17 14:01 10/16/17 14:00 90 18 10/16/17 11:59 97.3 F L 53 L 20 133/78 10/16/17 11:56 70 10/16/17 10:15 68 137/84 10/16/17 10:14 68 137/84 Pulse Ox 10/17/17 08:36 10/17/17 08:19 95 10/17/17 08:06 94 10/17/17 03:47 91 10/16/17 21:45 97 10/16/17 20:34 10/16/17 20:24 10/16/17 19:43 97 10/16/17 19:28 10/16/17 17:06 97 10/16/17 14:10 10/16/17 14:01 97 10/16/17 14:00 10/16/17 11:59 97 10/16/17 11:56 10/16/17 10:15 10/16/17 10:14 - Physical Examination General: No Apparent Distress, Other (morbidly obese) HEENT: Positive: PERRL Cardiac: Positive: Other (Afib/flutter with demand pacing) Lungs: Positive: Decreased Breath Sounds Neuro: Positive: Grossly Intact - Imaging and Cardiology EKG: report reviewed (atrial fibrillation/flutter and ventricular paced rhythm- interpreted by me) <OMID ALVARES - Last Filed: 10/17/17 11:17> Assessment and Plan Recommendations: Start po amiodarone Schedule for YARELY guided cardioversion on Sunday with anesthesia Objective Vital Signs Temp Pulse Pulse Resp Resp BP BP 10/17/17 11:10 71 112/70 10/17/17 08:36 68 20 10/17/17 08:19 53 L 20 10/17/17 08:06 98.4 F 65 20 141/81 10/17/17 03:47 97.8 F 75 17 133/68 10/16/17 21:45 10/16/17 20:34 70 20 10/16/17 20:24 68 20 10/16/17 19:43 97.4 F L 78 23 125/75 10/16/17 19:28 87 10/16/17 17:06 98.4 F 74 20 132/69 10/16/17 14:10 91 H 18 10/16/17 14:01 10/16/17 14:00 90 18 10/16/17 11:59 97.3 F L 53 L 20 133/78 10/16/17 11:56 70 Pulse Ox 10/17/17 11:10 10/17/17 08:36 10/17/17 08:19 95 10/17/17 08:06 94 10/17/17 03:47 91 10/16/17 21:45 97 10/16/17 20:34 10/16/17 20:24 10/16/17 19:43 97 10/16/17 19:28 10/16/17 17:06 97 10/16/17 14:10 10/16/17 14:01 97 10/16/17 14:00 10/16/17 11:59 97 10/16/17 11:56
[2017-10-17] MEDS: FEOSOL PO SCH ×2 (11:10→21:43)
[2017-10-17] MEDS: COREG PO SCH ×2 (11:10→21:45)
[2017-10-17] MEDS: ECOTRIN PO SCH (11:10)
[2017-10-17] MEDS: MAG-OX PO SCH (11:11)
[2017-10-17] MEDS: ELIQUIS PO SCH ×2 (11:11→21:45)
[2017-10-17] MEDS: K-DUR PO SCH ×2 (11:12→21:46)
[2017-10-17] MEDS: LEVAQUIN 750MG/150ML 750 MG/150 ML BAG IV SCH (11:13)
[2017-10-17] MEDS: FLONASE NS SCH (11:14)
[2017-10-17] MEDS: ZESTRIL PO SCH (11:15)
[2017-10-17] MEDS: ZYLOPRIM PO SCH (11:15)
[2017-10-17] MEDS ORDERED: LEVEMIR SUB-Q SCH (11:32)
[2017-10-17] MEDS ORDERED: PERCOCET 5/325 PO PRN (11:45)
[2017-10-17] MEDS ORDERED: MORPHINE IV PRN (11:46)
--- NOTE | 2017-10-17 13:56 | Progress Note ---
Assessment and Plan Imp: 1. NICMP 2. A/C systolic CHF 3. Acute respiratory failure, hypoxia 4. ? COPD exac. 5. [place], morbid obesity 6. Pulm HTN 7. Afib Rec: 1. Decreased Solumedrol 2. Lasix 3. Bronchodilators 4. LE dopplers negative; do not believe it is worthwhile to repeat CTA chest or V/Q (neg 06/2017) as he is now on Eliquis anyway; monitor 5. CPAP QHS and prn 6. Outpatient PFTs Plan of care reviewed with patient, he understands/agrees Subjective Date of service: 10/17/17 Principal diagnosis: Acute resp. failure Interval history: No events. On his home CPAP machine. SOB mildly improved. Denies chest pain, cough, sputum, new complaints. Active Medications Acetaminophen (Tylenol) 650 mg PO Q4H PRN PRN Reason: Pain MILD(1-3)/Fever >100.5/KNIGHT Albuterol (Proventil) 2.5 mg IH Q3HRT PRN PRN Reason: Wheezing/ SOB Albuterol/Ipratropium (Duoneb *Not For Prn Use*) 1 ampul IH Q6HRT [facility] Last Admin: 10/17/17 08:21 Dose: 1 ampul Allopurinol (Zyloprim) 100 mg PO QDAY [facility] Last Admin: 10/17/17 11:15 Dose: 100 mg Amiodarone HCl (Cordarone) 400 mg PO BID ROBERT Apixaban (Eliquis) 5 mg PO Q12HR ROBERT PRN Reason: Protocol Last Admin: 10/17/17 11:11 Dose: 5 mg Aspirin (Ecotrin) 325 mg PO QDAY [facility] Last Admin: 10/17/17 11:10 Dose: 325 mg Benzocaine/Menthol (Cepacol X Strength) 1 each MM Q2HR PRN PRN Reason: Sore Throat Last Admin: 10/16/17 21:31 Dose: 1 each Bisacodyl (Dulcolax) 10 mg MD QDAY PRN PRN Reason: Constipation unrelieved by MOM Carvedilol (Coreg) 25 mg PO BID [facility] Last Admin: 10/17/17 11:10 Dose: 25 mg Digoxin (Lanoxin) 0.125 mg PO DAILY@1700 [facility] Last Admin: 10/16/17 18:01 Dose: Not Given Ferrous Sulfate (Feosol) 325 mg PO BID [facility] Last Admin: 10/17/17 11:10 Dose: 325 mg Fluticasone Propionate (Flonase) 200 mcg NS QDAY [facility] Last Admin: 10/17/17 11:14 Dose: 200 mcg Furosemide (Lasix) 60 mg IV 0600,1800 [facility] Last Admin: 10/17/17 06:39 Dose: 60 mg Glipizide (Glucotrol) 10 mg PO QDDIAB [facility] Last Admin: 10/17/17 08:40 Dose: 10 mg Hydralazine HCl (Apresoline) 25 mg PO Q8HR [facility] Last Admin: 10/17/17 06:39 Dose: 25 mg Hydromorphone HCl (Dilaudid) 1 mg IV Q3H PRN PRN Reason: Pain , Severe (7-10) Last Admin: 10/17/17 06:38 Dose: 1 mg Insulin Aspart (Novolog) 0 units SUB-Q ACHS [facility] PRN Reason: Protocol Last Admin: 10/17/17 12:32 Dose: 4 units Insulin Detemir (Levemir) 25 units SUB-Q QHS [facility] Isosorbide Dinitrate (Isordil Titradose) 10 mg PO Q8HR [facility] Last Admin: 10/17/17 06:39 Dose: 10 mg Levofloxacin (Levaquin) 750 mg PO DAILY [facility] Lisinopril (Zestril) 2.5 mg PO QDAY [facility] Last Admin: 10/17/17 11:15 Dose: Not Given Magnesium Hydroxide (Milk Of Magnesia) 30 ml PO Q4H PRN PRN Reason: Constipation Magnesium Oxide (Mag-Ox) 400 mg PO DAILY [facility] Last Admin: 10/17/17 11:11 Dose: 400 mg Methylprednisolone Sodium Succinate (Solu-Medrol) 40 mg IV Q8H [facility] Last Admin: 10/17/17 06:39 Dose: 40 mg Metolazone (Zaroxolyn) 5 mg PO Mo [facility] Last Admin: 10/15/17 10:04 Dose: 5 mg Morphine Sulfate (Morphine) 2 mg IV Q4H PRN PRN Reason: Pain, Moderate (4-6) Ondansetron HCl (Zofran) 4 mg IV Q8H PRN PRN Reason: N/V unrelieved by Tuan Last Admin: 10/17/17 08:42 Dose: 4 mg Oxycodone/Acetaminophen (Percocet 5/325) 1 tab PO Q6H PRN PRN Reason: Pain, Moderate (4-6) Potassium Chloride (K-Dur) 20 meq PO BID ROBERT Last Admin: 10/17/17 11:12 Dose: 20 meq Sucralfate (Carafate) 1 gm PO Q6HR [facility] Zolpidem Tartrate (Ambien) 5 mg PO QHS PRN PRN Reason: Insomnia Last Admin: 10/17/17 01:19 Dose: 5 mg Objective Vital Signs - 12hr 10/17/17 10/17/17 10/17/17 03:47 08:06 08:19 Temperature 97.8 F 98.4 F Pulse Rate 75 65 Pulse Rate [ 53 L Anterior Bilateral Throughout] Respiratory 17 20 Rate Respiratory 20 Rate [Anterior Bilateral Throughout] Blood Pressure 133/68 Blood Pressure 141/81 [Left] O2 Sat by Pulse 91 94 95 Oximetry 10/17/17 10/17/17 10/17/17 08:36 10:00 11:10 Temperature Pulse Rate 60 71 Pulse Rate [ 68 Anterior Bilateral Throughout] Respiratory Rate Respiratory 20 Rate [Anterior Bilateral Throughout] Blood Pressure 112/70 Blood Pressure [Left] O2 Sat by Pulse 98 Oximetry 10/17/17 12:11 Temperature 97.5 F L Pulse Rate 60 Pulse Rate [ Anterior Bilateral Throughout] Respiratory 20 Rate Respiratory Rate [Anterior Bilateral Throughout] Blood Pressure Blood Pressure 128/81 [Left] O2 Sat by Pulse 93 Oximetry Constitutional: no acute distress, other (morbidly obese) ENT: oropharynx moist, other (severely crowded Mallampati class IV) Neck: supple Effort: normal Ascultation: Bilateral: diminished breath sounds (2/2 obesity) Cardiovascular: irregular rhythm (no mrg) Gastrointestinal: normoactive bowel sounds, soft, non-tender, other (obese abd) Extremities: no cyanosis, edema (1+) Neurologic: normal mental status, non-focal exam Psychiatric: mood appropriate, affect normal CBC and BMP: 10/16/17 04:35 10/16/17 04:35 ABG, PT/INR, D-dimer: ABG POC ABG pH 7.522 (7.35-7.45) H 10/16/17 17:34 POC ABG pCO2 36.3 (35-45) 10/16/17 17:34 POC ABG pO2 112 (80-105) H 10/16/17 17:34 POC ABG HCO3 29.8 10/16/17 17:34 POC ABG Total CO2 31 10/16/17 17:34 POC ABG O2 Sat 99 10/16/17 17:34 Abnormal lab findings: Abnormal Labs 10/14/17 10/14/17 10/14/17 23:11 23:11 23:11 WBC RDW 17.8 H Lymph % (Auto) Lymph # Seg Neutrophils % 73.2 H Seg Neutrophils # POC ABG pH POC ABG pO2 Sodium Chloride 93.6 L BUN Glucose POC Glucose Hemoglobin A1c Total Bilirubin 2.70 H NT-Pro-B Natriuret Pep 5770 H Albumin 10/15/17 10/15/17 10/15/17 04:49 08:01 11:18 WBC RDW Lymph % (Auto) Lymph # Seg Neutrophils % Seg Neutrophils # POC ABG pH POC ABG pO2 Sodium Chloride BUN Glucose POC Glucose 262 H 299 H Hemoglobin A1c 6.5 H Total Bilirubin NT-Pro-B Natriuret Pep Albumin 10/15/17 10/15/17 10/16/17 16:19 21:52 04:35 WBC 15.1 H RDW 18.1 H Lymph % (Auto) 5.5 L Lymph # 0.8 L Seg Neutrophils % 89.7 H Seg Neutrophils # 13.5 H POC ABG pH POC ABG pO2 Sodium Chloride BUN Glucose POC Glucose 192 H 224 H Hemoglobin A1c Total Bilirubin NT-Pro-B Natriuret Pep Albumin 10/16/17 10/16/17 10/16/17 04:35 07:41 12:04 WBC RDW Lymph % (Auto) Lymph # Seg Neutrophils % Seg Neutrophils # POC ABG pH POC ABG pO2 Sodium 131 L Chloride 86.8 L BUN 21 H Glucose 243 H POC Glucose 193 H 252 H Hemoglobin A1c Total Bilirubin 2.30 H NT-Pro-B Natriuret Pep Albumin 3.7 L 10/16/17 10/16/17 10/16/17 17:09 17:34 20:38 WBC RDW Lymph % (Auto) Lymph # Seg Neutrophils % Seg Neutrophils # POC ABG pH 7.522 H POC ABG pO2 112 H Sodium Chloride BUN Glucose POC Glucose 222 H 255 H Hemoglobin A1c Total Bilirubin NT-Pro-B Natriuret Pep Albumin Chest x-ray: report reviewed, image reviewed
[2017-10-17] MEDS: LANOXIN PO SCH (16:10)
[2017-10-17] MEDS: CARAFATE PO SCH ×3 (16:11→23:22)
--- NOTE | 2017-10-17 16:16 | Progress Note ---
Assessment and Plan Assessment and plan: (1) Acute on chronic systolic and diastolic exacerbation of CHF (congestive heart failure) S/P Biventricular ICD Continue IV diuretics for now. Patient has been consuming excessive liquids because of too many parties recently. Echo was done recently and hence not ordered Heart failure education Fluid restriction (2) COPD exacerbation Current Visit: Yes Status: Acute Plan to address problem: patient also has chronic respiratory failure and COPD exacerbation. Patient initiated on nebulizer tr and IV Solu-Medrol and IV Levaquin. Pulmonary consult noted. Flonase (3) Atrial fibrillation and flutter Current Visit: Yes Status: Chronic Plan to address problem: Cardiology following, Eliquis started, plan for cardioversion on Sunday (4) Insulin dependent diabetes mellitus Current Visit: Yes Status: Acute Plan to address problem: continue insulin adjust to high dose sliding scale, continue lantus bid (5) Gout Current Visit: Yes Status: Inactive Qualifiers: Gout site: unspecified site Plan to address problem: continue allopurinol (6) Hypertension Current Visit: Yes Status: Chronic Qualifiers: Hypertension type: essential hypertension Qualified Code(s): I10 - Essential (primary) hypertension Plan to address problem: continue Coreg . hydralazine and lisinopril (7) Coronary artery disease Current Visit: Yes Status: Chronic Qualifiers: Coronary Disease-Associated Artery/Lesion type: [place] artery [place] vs. transplanted heart: [place] heart Associated angina: with stable angina Qualified Code(s): I25.118 - Atherosclerotic heart disease of [place] coronary artery with other forms of angina pectoris Plan to address problem: continue isosorbide dinitrate (8) DVT prophylaxis Current Visit: Yes Status: Acute Plan to address problem: Lovenox History Interval history: Patient seen and examined lying comfortably continues on CPAP he uses it whenever he lays flat. He complains of abdominal discomfort with nausea today. He states is also precluding him from eating breakfast. He rates the pain a 5/10 Hospitalist Physical - Physical exam Narrative exam: VITAL SIGNS: Reviewed. GENERAL: Morbidly obese, with chronic dyspea on lying supine. Vital signs as documented. HEAD: No signs of head trauma. EYES: Pupils are equal. Extraocular motions intact. EARS: Hearing grossly intact. MOUTH: Oropharynx is normal. NECK: No adenopathy, no JVD. CHEST: Chest with diminished breath sounds bilaterally. No wheezes, rales, or rhonchi. CARDIAC: Regular rate and rhythm. S1 and S2, without murmurs, gallops, or rubs. VASCULAR: No Edema. Peripheral pulses normal and equal in all extremities. ABDOMEN: Soft, without detectable tenderness. No sign of distention. No rebound or guarding, and no masses palpated. Bowel Sounds normal. MUSCULOSKELETAL: Good range of motion of all major joints. Extremities without clubbing, cyanosis or edema. NEUROLOGIC EXAM: Alert and oriented x 3. No focal sensory or strength deficits. Speech normal. Follows commands. PSYCHIATRIC: Mood normal. SKIN: Multiple skin tattoos. - Constitutional Vitals: Temp Pulse Resp BP Pulse Ox 97.4 F L 74 20 139/72 100 10/17/17 15:59 10/17/17 16:10 10/17/17 15:59 10/17/17 15:59 10/17/17 15:59 General appearance: Present: no acute distress, severe distress, well-nourished , obese Results - Labs CBC & Chem 7: 10/16/17 04:35 10/16/17 04:35 Labs: Laboratory Last Values WBC 15.1 K/mm3 (4.5-11.0) H 10/16/17 04:35 RBC 4.31 M/mm3 (3.65-5.03) 10/16/17 04:35 Hgb 12.4 gm/dl (11.8-15.2) 10/16/17 04:35 Hct 38.0 % (35.5-45.6) 10/16/17 04:35 MCV 88 fl (84-94) 10/16/17 04:35 MCH 29 pg (28-32) 10/16/17 04:35 MCHC 33 % (32-34) 10/16/17 04:35 RDW 18.1 % (13.2-15.2) H 10/16/17 04:35 Plt Count 233 K/mm3 (140-440) 10/16/17 04:35 Lymph % (Auto) 5.5 % (13.4-35.0) L 10/16/17 04:35 Towns % (Auto) 4.7 % (0.0-7.3) 10/16/17 04:35 Eos % (Auto) 0.0 % (0.0-4.3) 10/16/17 04:35 Baso % (Auto) 0.1 % (0.0-1.8) 10/16/17 04:35 Lymph # 0.8 K/mm3 (1.2-5.4) L 10/16/17 04:35 [place] # 0.7 K/mm3 (0.0-0.8) 10/16/17 04:35 Eos # 0.0 K/mm3 (0.0-0.4) 10/16/17 04:35 Baso # 0.0 K/mm3 (0.0-0.1) 10/16/17 04:35 Seg Neutrophils % 89.7 % (40.0-70.0) H 10/16/17 04:35 Seg Neutrophils # 13.5 K/mm3 (1.8-7.7) H 10/16/17 04:35 POC ABG pH 7.522 (7.35-7.45) H 10/16/17 17:34 POC ABG pCO2 36.3 (35-45) 10/16/17 17:34 POC ABG pO2 112 (80-105) H 10/16/17 17:34 POC ABG HCO3 29.8 10/16/17 17:34 POC ABG Total CO2 31 10/16/17 17:34 POC ABG O2 Sat 99 10/16/17 17:34 POC ABG Base Excess 7 10/16/17 17:34 FiO2 2 % 10/16/17 17:34 Sodium 131 mmol/L (137-145) L 10/16/17 04:35 Potassium 3.9 mmol/L (3.6-5.0) 10/16/17 04:35 Chloride 86.8 mmol/L (98-107) L 10/16/17 04:35 Carbon Dioxide 26 mmol/L (22-30) 10/16/17 04:35 Anion Gap 22 mmol/L 10/16/17 04:35 BUN 21 mg/dL (9-20) H 10/16/17 04:35 Creatinine 1.3 mg/dL (0.8-1.5) 10/16/17 04:35 Estimated GFR 59 ml/min 10/16/17 04:35 BUN/Creatinine Ratio 16 % 10/16/17 04:35 Glucose 243 mg/dL (75-100) H 10/16/17 04:35 POC Glucose 255 (70-105) H 10/16/17 20:38 Hemoglobin A1c 6.5 % (4-6) H 10/15/17 04:49 Calcium 9.7 mg/dL (8.4-10.2) 10/16/17 04:35 Total Bilirubin 2.30 mg/dL (0.1-1.2) H 10/16/17 04:35 AST 14 units/L (5-40) 10/16/17 04:35 ALT 9 units/L (7-56) 10/16/17 04:35 Alkaline Phosphatase 59 units/L (35-129) 10/16/17 04:35 Troponin T 0.011 ng/mL (0.00-0.029) 10/14/17 23:11 NT-Pro-B Natriuret Pep 5770 pg/mL (0-450) H 10/14/17 23:11 Total Protein 7.4 g/dL (6.3-8.2) 10/16/17 04:35 Albumin 3.7 g/dL (3.9-5) L 10/16/17 04:35 Albumin/Globulin Ratio 1.0 % 10/16/17 04:35
[2017-10-17] MEDS ORDERED: D50W (25GM) Syringe IV PRN (17:24)
[2017-10-17] MEDS: CORDARONE PO SCH (21:45)
[2017-10-18] MEDS: DUONEB *Not for PRN Use IH SCH ×5 (02:34→20:56)
[2017-10-18] MEDS: LASIX IV SCH ×2 (05:57→17:08)
[2017-10-18] MEDS: CARAFATE PO SCH ×3 (05:57→17:08)
[2017-10-18] MEDS: ISORDIL TITRADOSE PO SCH ×4 (05:59→22:06)
[2017-10-18] MEDS: APRESOLINE PO SCH ×3 (05:59→22:06)
[2017-10-18] MEDS ORDERED: LEVEMIR SUB-Q SCH (08:01)
[2017-10-18] MEDS: NOVOLOG SUB-Q SCH ×4 (08:12→22:07)
--- NOTE | 2017-10-18 09:31 | Gastroenterology Progress Note ---
Assessment and Plan 1.epigastric pain 2.nausea -clinically pt reports epigastric pain is improving and N/V has resolved -tolerating regular diet -no recommendations for an EGD, will treat with conservative management -continue carafate and PPI -continue supportive care -no further GI recommendations this time -will sign off, please re-consult if needed Subjective Date of service: 10/18/17 Principal diagnosis: epigastric pain w/ nausea Interval history: Patient resting in bed w/o distress. Reports epigastric pain is improving and denies any N/V. Tolerated eating a regular diet for breakfast this am w/o difficultly. Objective - Constitutional Vitals: Temp Pulse Resp BP Pulse Ox 97.6 F 87 18 115/52 93 10/18/17 04:32 10/18/17 09:15 10/18/17 09:15 10/18/17 05:59 10/18/17 04:32 General appearance: obese (morbidly obese) - EENT Eyes: PERRL, EOM intact ENT: hearing intact - Respiratory Respiratory: bilateral: diminished - Cardiovascular Rhythm: regular Heart Sounds: Present: S1 & S2 - Gastrointestinal General gastrointestinal: Present: soft, tender (mild TTP in RUQ), non-distended , normal bowel sounds - Neurologic Neurological: alert and oriented x3 - Labs CBC & Chem 7: 10/16/17 04:35 10/16/17 04:35 Labs: Laboratory Results - last 24 hr 10/17/17 10/17/17 10/17/17 07:45 11:52 15:27 POC Glucose 205 H 232 H 227 H 10/17/17 10/18/17 21:22 08:16 POC Glucose 259 H 208 H
[2017-10-18] MEDS: ECOTRIN PO SCH (10:26)
[2017-10-18] MEDS: ZYLOPRIM PO SCH (10:26)
[2017-10-18] MEDS: ZESTRIL PO SCH (10:27)
[2017-10-18] MEDS: ELIQUIS PO SCH ×2 (10:27→22:05)
[2017-10-18] MEDS: FEOSOL PO SCH ×2 (10:27→22:05)
[2017-10-18] MEDS: CORDARONE PO SCH ×2 (10:27→22:15)
[2017-10-18] MEDS: MAG-OX PO SCH (10:28)
[2017-10-18] MEDS: COREG PO SCH ×2 (10:28→22:06)
[2017-10-18] MEDS: LEVAQUIN PO SCH (10:28)
[2017-10-18] MEDS: K-DUR PO SCH ×2 (10:29→22:05)
[2017-10-18] MEDS: PROTONIX PO SCH (10:29)
--- NOTE | 2017-10-18 11:05 | Progress Note ---
Assessment and Plan Acute on chronic systolic heart failure Afib/flutter with demand pacing initiated on amiodarone and eliquis for oral anticoagulation. 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 Continue current medical therapy. Subjective Date of service: 10/18/17 Principal diagnosis: epigastric pain w/ nausea Interval history: Patient has no complaints. Objective Vital Signs Temp Pulse Pulse Resp Resp BP BP 10/18/17 09:31 70 18 10/18/17 09:15 87 18 10/18/17 05:59 67 115/52 10/18/17 04:32 97.6 F 67 23 115/52 10/18/17 00:13 97.6 F 52 L 22 130/70 10/17/17 22:00 75 10/17/17 21:55 10/17/17 21:45 71 127/75 10/17/17 21:44 71 127/75 10/17/17 21:04 80 20 10/17/17 20:54 71 20 10/17/17 20:20 97.6 F 68 20 127/75 10/17/17 17:41 22 10/17/17 16:10 74 10/17/17 15:59 97.4 F L 60 20 139/72 10/17/17 15:16 41 L 10/17/17 15:08 40 L 20 10/17/17 14:47 44 L 20 10/17/17 12:11 97.5 F L 60 20 128/81 10/17/17 11:50 97.5 F L 72 20 128/81 10/17/17 11:10 71 112/70 Pulse Ox 10/18/17 09:31 10/18/17 09:15 10/18/17 05:59 10/18/17 04:32 93 10/18/17 00:13 92 10/17/17 22:00 10/17/17 21:55 97 10/17/17 21:45 10/17/17 21:44 10/17/17 21:04 10/17/17 20:54 10/17/17 20:20 94 10/17/17 17:41 10/17/17 16:10 10/17/17 15:59 100 10/17/17 15:16 80 L 10/17/17 15:08 10/17/17 14:47 10/17/17 12:11 93 10/17/17 11:50 92 10/17/17 11:10 - Physical Examination General: No Apparent Distress, Other (morbidly obese) HEENT: Positive: PERRL Cardiac: Positive: Other (afib with demand pacing) Neuro: Positive: Grossly Intact
--- NOTE | 2017-10-18 12:31 | Consultation ---
REFERRING PHYSICIAN: Leighton Quevedo MD INDICATION: 1. Nausea. 2. Epigastric pain. HISTORY OF PRESENT ILLNESS: The patient is a 46-year-old male, morbidly obese, who has been seen by GI for evaluation. The patient presented and was admitted on 10/15/2017 when he presented with shortness of breath. The patient has a history asthma, PE, CHF, COPD, coronary artery disease, status post defibrillator placement, hypertension as well as sleep apnea and renal insufficiency. The patient was subsequently admitted and diagnosed with CHF exacerbation and is being evaluated in management. The patient also been set up for a YARELY this coming Sunday. The patient reports overnight he started having some nausea with food as well as some mild epigastric pain. He reports today he is able to tolerate some food and is feeling somewhat better. Denies ever history of upper GI problems. He reports no dysphagia or odynophagia. Denies any weight loss. Denies any lower GI symptoms including diarrhea, constipation, or rectal bleeding. No other specific complaints. PAST MEDICAL HISTORY: 1. COPD. 2. CAD. 3. Heart failure. 4. Hypertension. 5. Asthma. 6. PE. 7. Sleep apnea, on CPAP. PAST SURGICAL HISTORY: Status post defibrillator placement. MEDICATIONS: See chart. ALLERGIES: CEPHALEXIN, LIDOCAINE, and MUSHROOMS. SOCIAL HISTORY: Denies alcohol, tobacco, or IV drug abuse. FAMILY HISTORY: Negative for colon cancer. REVIEW OF SYSTEMS: GENERAL: Reports mild weakness. HEENT: No visual complaints or tinnitus. PULMONARY: Reports shortness of breath. CARDIOVASCULAR: Denies chest pain. GASTROINTESTINAL: Reports nausea, now improving. All points of a 13-point review of systems otherwise negative. PHYSICAL EXAMINATION: VITAL SIGNS: Temperature of 97.5, pulse 93, respirations 20, blood pressure 128/81. GENERAL: Obese male in no acute distress. HEENT: Pupils are equal, round, and reactive. PULMONARY: Rhonchi. CARDIOVASCULAR: Regular rhythm. ABDOMEN: Soft. SKIN: No obvious rashes. LABORATORY DATA: Pertinent for white count of 15, hemoglobin and hematocrit of 12.4 and 38.0, and platelet count of 233. Chem-7: Sodium of 131, potassium 3.9, chloride 87, CO2 26, BUN and creatinine of 21 and 1.3. LFTs within normal limits. ASSESSMENT AND PLAN: A 46-year-old male with medical problems as noted above, admitted with congestive heart failure exacerbation as well as atrial fibrillation and atrial flutter, now being set up for cardioversion in 2 days. The patient overnight reported some nausea with epigastric pain. The patient reports no symptoms like this in the past. The patient reports overall symptoms are improved today and he is tolerating some food. Denies any other specific complaints. Management as noted below. It is unclear as to whether or not the symptoms may be related to his other medical issues as well as his medications. PLAN: 1. PPI daily and continue antiemetics as ordered p.r.n. 2. Carafate 1 gram p.o. q.i.d. 3. Continue cardiac diet. 4. No plans for EGD at this time. 5. We will follow up with a conservative approach given the patient's other medical issues and that symptoms are improving. 6. We will follow. JOB# [id number] CAB/NTS
[2017-10-18] MEDS: FLONASE NS SCH (13:02)
--- NOTE | 2017-10-18 14:49 | Progress Note ---
Assessment and Plan Imp: 1. NICMP 2. A/C systolic CHF 3. Acute respiratory failure, hypoxia 4. ? COPD exac. 5. BRITTON, morbid obesity 6. Pulm HTN 7. Afib Rec: 1. Change to prednisone 20mg daily in AM 2. Lasix 3. Bronchodilators 4. LE dopplers negative; do not believe it is worthwhile to repeat CTA chest or V/Q (neg 06/2017) as he is now on Eliquis anyway; monitor 5. CPAP QHS and prn 6. Outpatient PFTs 7. Check need for home O2 prior to d/c 8. F/u with Dr. Graf 1-2 weeks after d/c Plan of care reviewed with patient, he understands/agrees Subjective Date of service: 10/18/17 Principal diagnosis: epigastric pain w/ nausea Interval history: No events. SOB mildly improved. Denies chest pain, cough, sputum, new complaints. Remains on O2. Active Medications Acetaminophen (Tylenol) 650 mg PO Q4H PRN PRN Reason: Pain MILD(1-3)/Fever >100.5/KNIGHT Albuterol (Proventil) 2.5 mg IH Q3HRT PRN PRN Reason: Wheezing/ SOB Last Admin: 10/17/17 21:46 Dose: 2.5 mg Albuterol/Ipratropium (Duoneb *Not For Prn Use*) 1 ampul IH Q6HRT [facility] Last Admin: 10/18/17 09:15 Dose: 1 ampul Allopurinol (Zyloprim) 100 mg PO QDAY [facility] Last Admin: 10/18/17 10:26 Dose: 100 mg Amiodarone HCl (Cordarone) 400 mg PO BID [facility] Last Admin: 10/18/17 10:27 Dose: 400 mg Apixaban (Eliquis) 5 mg PO Q12HR [facility] PRN Reason: Protocol Last Admin: 10/18/17 10:27 Dose: 5 mg Aspirin (Ecotrin) 325 mg PO QDAY [facility] Last Admin: 10/18/17 10:26 Dose: 325 mg Benzocaine/Menthol (Cepacol X Strength) 1 each MM Q2HR PRN PRN Reason: Sore Throat Last Admin: 10/16/17 21:31 Dose: 1 each Bisacodyl (Dulcolax) 10 mg UT QDAY PRN PRN Reason: Constipation unrelieved by MOM Carvedilol (Coreg) 25 mg PO BID [facility] Last Admin: 10/18/17 10:28 Dose: 25 mg Dextrose (D50w (25gm) Syringe) 50 ml IV PRN PRN PRN Reason: Hypoglycemia Digoxin (Lanoxin) 0.125 mg PO DAILY@1700 [facility] Last Admin: 10/17/17 16:10 Dose: 0.125 mg Ferrous Sulfate (Feosol) 325 mg PO BID [facility] Last Admin: 10/18/17 10:27 Dose: 325 mg Fluticasone Propionate (Flonase) 200 mcg NS QDAY [facility] Last Admin: 10/18/17 13:02 Dose: 200 mcg Furosemide (Lasix) 60 mg IV 0600,1800 [facility] Last Admin: 10/18/17 05:57 Dose: 60 mg Hydralazine HCl (Apresoline) 25 mg PO Q8HR [facility] Last Admin: 10/18/17 13:01 Dose: 25 mg Hydromorphone HCl (Dilaudid) 1 mg IV Q3H PRN PRN Reason: Pain , Severe (7-10) Last Admin: 10/17/17 17:41 Dose: 1 mg Insulin Aspart (Novolog) 0 units SUB-Q ACHS [facility] PRN Reason: Protocol Last Admin: 10/18/17 13:00 Dose: 8 units Insulin Detemir (Levemir) 28 units SUB-Q QHS [facility] Isosorbide Dinitrate (Isordil Titradose) 10 mg PO Q8HR [facility] Last Admin: 10/18/17 13:02 Dose: 10 mg Levofloxacin (Levaquin) 750 mg PO DAILY [facility] Last Admin: 10/18/17 10:28 Dose: 750 mg Lisinopril (Zestril) 2.5 mg PO QDAY [facility] Last Admin: 10/18/17 10:27 Dose: 2.5 mg Magnesium Hydroxide (Milk Of Magnesia) 30 ml PO Q4H PRN PRN Reason: Constipation Magnesium Oxide (Mag-Ox) 400 mg PO DAILY [facility] Last Admin: 10/18/17 10:28 Dose: 400 mg Metolazone (Zaroxolyn) 5 mg PO Mo [facility] Last Admin: 10/15/17 10:04 Dose: 5 mg Morphine Sulfate (Morphine) 2 mg IV Q4H PRN PRN Reason: Pain, Moderate (4-6) Ondansetron HCl (Zofran) 4 mg IV Q8H PRN PRN Reason: N/V unrelieved by Reglan Last Admin: 10/17/17 08:42 Dose: 4 mg Oxycodone/Acetaminophen (Percocet 5/325) 1 tab PO Q6H PRN PRN Reason: Pain, Moderate (4-6) Pantoprazole Sodium (Protonix) 40 mg PO QDAY [facility] Last Admin: 10/18/17 10:29 Dose: 40 mg Potassium Chloride (K-Dur) 20 meq PO BID [facility] Last Admin: 10/18/17 10:29 Dose: 20 meq Prednisone (Deltasone) 20 mg PO QDAY [facility] Sucralfate (Carafate) 1 gm PO Q6HR [facility] Last Admin: 10/18/17 13:00 Dose: 1 gm Zolpidem Tartrate (Ambien) 5 mg PO QHS PRN PRN Reason: Insomnia Last Admin: 10/17/17 23:26 Dose: 5 mg Objective Vital Signs - 12hr 10/18/17 10/18/17 10/18/17 04:32 05:59 08:09 Temperature 97.6 F Pulse Rate 67 67 69 Pulse Rate [ Anterior Bilateral Throughout] Respiratory 23 Rate Respiratory Rate [Anterior Bilateral Throughout] Blood Pressure 115/52 115/52 134/87 O2 Sat by Pulse 93 96 Oximetry 10/18/17 10/18/17 10/18/17 09:15 09:31 10:00 Temperature Pulse Rate 77 Pulse Rate [ 87 70 Anterior Bilateral Throughout] Respiratory Rate Respiratory 18 18 Rate [Anterior Bilateral Throughout] Blood Pressure O2 Sat by Pulse Oximetry Constitutional: no acute distress, other (morbidly obese) ENT: oropharynx moist, other (severely crowded Mallampati class IV) Neck: supple Effort: normal Ascultation: Bilateral: clear Cardiovascular: irregular rhythm (no mrg) Gastrointestinal: normoactive bowel sounds, soft, non-tender, other (obese abd) Extremities: no cyanosis, edema (1+) Neurologic: normal mental status, non-focal exam Psychiatric: mood appropriate, affect normal CBC and BMP: 10/16/17 04:35 10/16/17 04:35 ABG, PT/INR, D-dimer: ABG POC ABG pH 7.522 (7.35-7.45) H 10/16/17 17:34 POC ABG pCO2 36.3 (35-45) 10/16/17 17:34 POC ABG pO2 112 (80-105) H 10/16/17 17:34 POC ABG HCO3 29.8 10/16/17 17:34 POC ABG Total CO2 31 10/16/17 17:34 POC ABG O2 Sat 99 10/16/17 17:34 Abnormal lab findings: Abnormal Labs 10/14/17 10/14/17 10/14/17 23:11 23:11 23:11 WBC RDW 17.8 H Lymph % (Auto) Lymph # Seg Neutrophils % 73.2 H Seg Neutrophils # POC ABG pH POC ABG pO2 Sodium Chloride 93.6 L BUN Glucose POC Glucose Hemoglobin A1c Total Bilirubin 2.70 H NT-Pro-B Natriuret Pep 5770 H Albumin 10/15/17 10/15/17 10/15/17 04:49 08:01 11:18 WBC RDW Lymph % (Auto) Lymph # Seg Neutrophils % Seg Neutrophils # POC ABG pH POC ABG pO2 Sodium Chloride BUN Glucose POC Glucose 262 H 299 H Hemoglobin A1c 6.5 H Total Bilirubin NT-Pro-B Natriuret Pep Albumin 10/15/17 10/15/17 10/16/17 16:19 21:52 04:35 WBC 15.1 H RDW 18.1 H Lymph % (Auto) 5.5 L Lymph # 0.8 L Seg Neutrophils % 89.7 H Seg Neutrophils # 13.5 H POC ABG pH POC ABG pO2 Sodium Chloride BUN Glucose POC Glucose 192 H 224 H Hemoglobin A1c Total Bilirubin NT-Pro-B Natriuret Pep Albumin 10/16/17 10/16/17 10/16/17 04:35 07:41 12:04 WBC RDW Lymph % (Auto) Lymph # Seg Neutrophils % Seg Neutrophils # POC ABG pH POC ABG pO2 Sodium 131 L Chloride 86.8 L BUN 21 H Glucose 243 H POC Glucose 193 H 252 H Hemoglobin A1c Total Bilirubin 2.30 H NT-Pro-B Natriuret Pep Albumin 3.7 L 10/16/17 10/16/17 10/16/17 17:09 17:34 20:38 WBC RDW Lymph % (Auto) Lymph # Seg Neutrophils % Seg Neutrophils # POC ABG pH 7.522 H POC ABG pO2 112 H Sodium Chloride BUN Glucose POC Glucose 222 H 255 H Hemoglobin A1c Total Bilirubin NT-Pro-B Natriuret Pep Albumin 10/17/17 10/17/17 10/17/17 07:45 11:52 15:27 WBC RDW Lymph % (Auto) Lymph # Seg Neutrophils % Seg Neutrophils # POC ABG pH POC ABG pO2 Sodium Chloride BUN Glucose POC Glucose 205 H 232 H 227 H Hemoglobin A1c Total Bilirubin NT-Pro-B Natriuret Pep Albumin 10/17/17 10/18/17 10/18/17 21:22 08:16 12:52 WBC RDW Lymph % (Auto) Lymph # Seg Neutrophils % Seg Neutrophils # POC ABG pH POC ABG pO2 Sodium Chloride BUN Glucose POC Glucose 259 H 208 H 316 H Hemoglobin A1c Total Bilirubin NT-Pro-B Natriuret Pep Albumin Chest x-ray: report reviewed, image reviewed
--- NOTE | 2017-10-18 16:14 | Progress Note ---
Assessment and Plan Assessment and plan: (1) Acute on chronic systolic and diastolic exacerbation of CHF (congestive heart failure) S/P Biventricular ICD Continue IV diuretics for now. Patient has been consuming excessive liquids because of too many parties recently. Echo was done recently and hence not ordered Heart failure education Fluid restriction (2) COPD exacerbation Current Visit: Yes Status: Acute Plan to address problem: patient also has chronic respiratory failure and COPD exacerbation. Patient initiated on nebulizer and taper IV Solu-Medrol and IV Levaquin. Pulmonary consult noted. Flonase (3) Atrial fibrillation and flutter Current Visit: Yes Status: Chronic Plan to address problem: Cardiology following, Eliquis started, plan for cardioversion on Sunday (4) Insulin dependent diabetes mellitus Current Visit: Yes Status: Acute Plan to address problem: continue insulin adjust to high dose sliding scale, continue lantus bid (5) Gout Current Visit: Yes Status: Inactive Qualifiers: Gout site: unspecified site Plan to address problem: continue allopurinol (6) Hypertension Current Visit: Yes Status: Chronic Qualifiers: Hypertension type: essential hypertension Qualified Code(s): I10 - Essential (primary) hypertension Plan to address problem: continue Coreg . hydralazine and lisinopril (7) Coronary artery disease Current Visit: Yes Status: Chronic Qualifiers: Coronary Disease-Associated Artery/Lesion type: [place] artery [place] vs. transplanted heart: [place] heart Associated angina: with stable angina Qualified Code(s): I25.118 - Atherosclerotic heart disease of [place] coronary artery with other forms of angina pectoris Plan to address problem: continue isosorbide dinitrate (8) DVT prophylaxis Current Visit: Yes Status: Acute Plan to address problem: Lovenox History Interval history: Patient seen and examined lying comfortably continues on CPAP he uses it whenever he lays flat. Reports improvement in abdominal discomfort. No further nausea noted today. Tolerated diet today. Hospitalist Physical - Physical exam Narrative exam: VITAL SIGNS: Reviewed. GENERAL: Morbidly obese, with chronic dyspea on lying supine. Vital signs as documented. HEAD: No signs of head trauma. EYES: Pupils are equal. Extraocular motions intact. EARS: Hearing grossly intact. MOUTH: Oropharynx is normal. NECK: No adenopathy, no JVD. CHEST: Chest with diminished breath sounds bilaterally. No wheezes, rales, or rhonchi. CARDIAC: Regular rate and rhythm. S1 and S2, without murmurs, gallops, or rubs. VASCULAR: No Edema. Peripheral pulses normal and equal in all extremities. ABDOMEN: Soft, without detectable tenderness. No sign of distention. No rebound or guarding, and no masses palpated. Bowel Sounds normal. MUSCULOSKELETAL: Good range of motion of all major joints. Extremities without clubbing, cyanosis or edema. NEUROLOGIC EXAM: Alert and oriented x 3. No focal sensory or strength deficits. Speech normal. Follows commands. PSYCHIATRIC: Mood normal. SKIN: Multiple skin tattoos. - Constitutional Vitals: Temp Pulse Resp BP Pulse Ox 97.6 F 52 L 18 123/60 98 10/18/17 04:32 10/18/17 15:21 10/18/17 15:21 10/18/17 12:50 10/18/17 15:23 General appearance: Present: no acute distress, severe distress, well-nourished , obese Results - Labs CBC & Chem 7: 10/16/17 04:35 10/16/17 04:35 Labs: Laboratory Last Values WBC 15.1 K/mm3 (4.5-11.0) H 10/16/17 04:35 RBC 4.31 M/mm3 (3.65-5.03) 10/16/17 04:35 Hgb 12.4 gm/dl (11.8-15.2) 10/16/17 04:35 Hct 38.0 % (35.5-45.6) 10/16/17 04:35 MCV 88 fl (84-94) 10/16/17 04:35 MCH 29 pg (28-32) 10/16/17 04:35 MCHC 33 % (32-34) 10/16/17 04:35 RDW 18.1 % (13.2-15.2) H 10/16/17 04:35 Plt Count 233 K/mm3 (140-440) 10/16/17 04:35 Lymph % (Auto) 5.5 % (13.4-35.0) L 10/16/17 04:35 [place] % (Auto) 4.7 % (0.0-7.3) 10/16/17 04:35 Eos % (Auto) 0.0 % (0.0-4.3) 10/16/17 04:35 Baso % (Auto) 0.1 % (0.0-1.8) 10/16/17 04:35 Lymph # 0.8 K/mm3 (1.2-5.4) L 10/16/17 04:35 [place] # 0.7 K/mm3 (0.0-0.8) 10/16/17 04:35 Eos # 0.0 K/mm3 (0.0-0.4) 10/16/17 04:35 Baso # 0.0 K/mm3 (0.0-0.1) 10/16/17 04:35 Seg Neutrophils % 89.7 % (40.0-70.0) H 10/16/17 04:35 Seg Neutrophils # 13.5 K/mm3 (1.8-7.7) H 10/16/17 04:35 POC ABG pH 7.522 (7.35-7.45) H 10/16/17 17:34 POC ABG pCO2 36.3 (35-45) 10/16/17 17:34 POC ABG pO2 112 (80-105) H 10/16/17 17:34 POC ABG HCO3 29.8 10/16/17 17:34 POC ABG Total CO2 31 10/16/17 17:34 POC ABG O2 Sat 99 10/16/17 17:34 POC ABG Base Excess 7 10/16/17 17:34 FiO2 2 % 10/16/17 17:34 Sodium 131 mmol/L (137-145) L 10/16/17 04:35 Potassium 3.9 mmol/L (3.6-5.0) 10/16/17 04:35 Chloride 86.8 mmol/L (98-107) L 10/16/17 04:35 Carbon Dioxide 26 mmol/L (22-30) 10/16/17 04:35 Anion Gap 22 mmol/L 10/16/17 04:35 BUN 21 mg/dL (9-20) H 10/16/17 04:35 Creatinine 1.3 mg/dL (0.8-1.5) 10/16/17 04:35 Estimated GFR 59 ml/min 10/16/17 04:35 BUN/Creatinine Ratio 16 % 10/16/17 04:35 Glucose 243 mg/dL (75-100) H 10/16/17 04:35 POC Glucose 316 (70-105) H 10/18/17 12:52 Hemoglobin A1c 6.5 % (4-6) H 10/15/17 04:49 Calcium 9.7 mg/dL (8.4-10.2) 10/16/17 04:35 Total Bilirubin 2.30 mg/dL (0.1-1.2) H 10/16/17 04:35 AST 14 units/L (5-40) 10/16/17 04:35 ALT 9 units/L (7-56) 10/16/17 04:35 Alkaline Phosphatase 59 units/L (35-129) 10/16/17 04:35 Troponin T 0.011 ng/mL (0.00-0.029) 10/14/17 23:11 NT-Pro-B Natriuret Pep 5770 pg/mL (0-450) H 10/14/17 23:11 Total Protein 7.4 g/dL (6.3-8.2) 10/16/17 04:35 Albumin 3.7 g/dL (3.9-5) L 10/16/17 04:35 Albumin/Globulin Ratio 1.0 % 10/16/17 04:35
[2017-10-18] MEDS: LANOXIN PO SCH (17:08)
[2017-10-18] MEDS: DILAUDID IV PRN (22:15)
[2017-10-18] MEDS: AMBIEN PO PRN (22:15)
[2017-10-19] MEDS: DUONEB *Not for PRN Use IH SCH ×3 (02:35→15:45)
[2017-10-19] MEDS: APRESOLINE PO SCH ×2 (06:08→14:13)
[2017-10-19] MEDS: CARAFATE PO SCH ×3 (06:08→12:35)
[2017-10-19] MEDS: ISORDIL TITRADOSE PO SCH ×2 (06:08→14:21)
[2017-10-19] MEDS: LASIX IV SCH (06:08)
[2017-10-19] MEDS ORDERED: LEVEMIR SUB-Q SCH (08:08)
[2017-10-19] MEDS: NOVOLOG SUB-Q SCH ×2 (09:45→12:18)
[2017-10-19] MEDS ORDERED: DELTASONE PO SCH (10:00)
[2017-10-19] MEDS: COREG PO SCH (10:47)
[2017-10-19] MEDS: LEVAQUIN PO SCH (10:47)
[2017-10-19] MEDS: ELIQUIS PO SCH (10:47)
[2017-10-19] MEDS: FEOSOL PO SCH (10:47)
[2017-10-19] MEDS: K-DUR PO SCH (10:47)
[2017-10-19] MEDS: ECOTRIN PO SCH (10:47)
[2017-10-19] MEDS: PROTONIX PO SCH (10:48)
[2017-10-19] MEDS: MAG-OX PO SCH (10:48)
[2017-10-19] MEDS: ZYLOPRIM PO SCH (10:48)
[2017-10-19] MEDS: ZESTRIL PO SCH (10:48)
[2017-10-19] MEDS: FLONASE NS SCH (10:49)
[2017-10-19] MEDS: CORDARONE PO SCH (10:52)
--- NOTE | 2017-10-19 11:07 | Progress Note ---
Assessment and Plan Acute on chronic systolic heart failure Afib/flutter with demand pacing on digoxin, amiodarone and coreg initiated on eliquis for oral anticoagulation. Dilated nonischemic cardiomyopathy, EF 10-15% normal coronaries by [facility] 09/2015 Chronic obstructive pulmonary disease Severe Pulmonary Hypertension Essential hypertension Type 2 diabetes mellitus Obstructive sleep apnea Presence of [employer]-ICD ([employer]) Hx of VT/VF Recommendations: Discontinue amiodarone due to history of overactive thyroid. Continue current management for underlying afib. Continue current medical therapy for chronic systolic heart failure and fluid overload. Stable, cardiac richardson for discharge. F/U with [facility] within 1 week of discharge for planned outpatient YARELY/cardioversion. Subjective Date of service: 10/19/17 Principal diagnosis: epigastric pain w/ nausea Interval history: Planned YARELY canceled because anesthesia is unavailable. Patient appears well. LE edema is resolving. Shortness of breath is less. Objective Vital Signs Temp Pulse Pulse Pulse Resp Resp BP 10/19/17 09:58 70 70 20 10/19/17 07:58 98.5 F 70 20 97/54 10/19/17 05:43 97.3 F L 71 24 112/63 10/19/17 02:40 65 16 10/19/17 02:30 66 18 10/18/17 23:04 97.4 F L 66 20 121/78 10/18/17 22:00 70 10/18/17 21:03 43 L 20 10/18/17 20:53 42 L 20 10/18/17 20:00 10/18/17 19:51 97.4 F L 43 L 20 104/46 10/18/17 17:08 92 H 10/18/17 16:30 54 L 105/57 10/18/17 15:23 10/18/17 15:21 52 L 18 10/18/17 15:06 68 16 10/18/17 12:50 71 123/60 Pulse Ox 10/19/17 09:58 96 10/19/17 07:58 95 10/19/17 05:43 97 10/19/17 02:40 10/19/17 02:30 10/18/17 23:04 95 10/18/17 22:00 10/18/17 21:03 10/18/17 20:53 10/18/17 20:00 98 10/18/17 19:51 95 10/18/17 17:08 10/18/17 16:30 95 10/18/17 15:23 98 10/18/17 15:21 10/18/17 15:06 10/18/17 12:50 95 - Physical Examination General: No Apparent Distress, Other (morbidly obese) HEENT: Positive: PERRL Cardiac: Positive: Other (afib with demand pacing.) Neuro: Positive: Grossly Intact Extremities: Absent: edema - Labs and Meds Comprehensive Metabolic Panel 10/18/17 Range/Units 15:45 Potassium 4.2 (3.6-5.0) mmol/L - Imaging and Cardiology EKG: report reviewed (atrial fibrillation/flutter and ventricular paced rhythm- interpreted by me)
--- NOTE | 2017-10-19 12:23 | Discharge Summary ---
Providers - Providers Date of Admission: 10/15/17 01:03 Attending physician: CLAUDIO WILSON MD 10/15/17 04:26 Consult to Physician [CONS] Routine Consulting Provider: HENRI BLOCK Reason For Exam: Resp failure Place consult to:: wil Notified:: a service Phone number called:: [phone] Was contact made?: Yes Time called:: 08:07 10/15/17 05:47 Consult to Physician [CONS] Routine Consulting Provider: SHO ORTEZ Reason For Exam: A fib/chf-need for coumadin/Eliquis Place consult to:: [facility] Notified:: a service Phone number called:: [phone] Was contact made?: Yes If yes, spoke with:: natalia Time called:: 08:01 10/17/17 11:44 Consult to Physician [CONS] Routine Consulting Provider: TU VARELA Reason For Exam: epigstric pain with nausea Place consult to:: Dr. Varela Notified:: Fiona JACK Phone number called:: Was contact made?: Yes If yes, spoke with:: [place]-office Time called:: 12:47 Primary care physician: MURRAY PAL Hospitalization Reason for admission: shortness of breath Condition: Stable Hospital course: Patient is a 46-year-old male with a past medical history of asthma, PE, CHF, COPD, CAD, defibrillator, hypertension, sleep apnea, and previous episodes of renal insufficiency who presents to the hospital with complains of shortness of breath 2 days. Until day before admission the patient was at his normal baseline state of health. Now he has had progressive worsening of his dyspnea on exertion to where he cannot walk across a room or talk while sitting up without becoming short of breath. Patient used Combivent and nebulizer treatment prior to hospitalization without improvement. Additionally, he has a productive cough with whitish sputum. He has had no fevers, chills, or night sweats. He reports feeling like he is wheezing, but no dyspnea at rest (as long as he is lying down). he reported orthopnea, and paroxysmal nocturnal dyspnea. No hx of recurrent pneumonia. He has no sick contacts. He also has no pets, has not been around any farm animals, and has not traveled recently or been around those who have. On admission the patient was started on diuretic and CPAP which he used continuously and states he dose that also at home when ever he is lying down. He was seen by cardiology and pulmonary with recommendation noted, ANITHA adair where negative. Eliqus was restarted on the patient with a plan for cardioversion which was not done in the hospital and planned for outpatient. Weight loss recommendations were done and also patient will need possible restudy for home o2. He improved clinically, a nebulizer was recommended and Prednisone called in for the patient to taper quickly in 5 days and follow with PCP and pulmonary (1) Acute on chronic systolic and diastolic exacerbation of CHF (congestive heart failure) S/P Biventricular ICD (2) COPD exacerbation (3) Atrial fibrillation and flutter (4) Insulin dependent diabetes mellitus (5) Gout (6) Hypertension (7) Coronary artery disease (8) Acute on chronic hypoxic Respiratory Failure Disposition: DC-01 TO HOME OR SELFCARE Time spent for discharge: 35 mins Core Measure Documentation - Palliative Care Palliative Care/ Comfort Measures: Not Applicable - Core Measures Any of the following diagnoses?: heart failure - VTE Discharge Requirements Deep Vein Thrombosis/Pulmonary Embolism Present on Admission: No - Heart Failure Discharge Requirements BRITTA/ARB for LVSD if EF <40%: Yes Beta brandon at discharge: No Reason for no beta brandon on DC: COPD Exam - Physical Exam Narrative exam: VITAL SIGNS: Reviewed. GENERAL: Morbidly obese, with chronic dyspea on lying supine. Vital signs as documented. HEAD: No signs of head trauma. EYES: Pupils are equal. Extraocular motions intact. EARS: Hearing grossly intact. MOUTH: Oropharynx is normal. NECK: No adenopathy, no JVD. CHEST: Chest with diminished breath sounds bilaterally. No wheezes, rales, or rhonchi. CARDIAC: Regular rate and rhythm. S1 and S2, without murmurs, gallops, or rubs. VASCULAR: No Edema. Peripheral pulses normal and equal in all extremities. ABDOMEN: Soft, without detectable tenderness. No sign of distention. No rebound or guarding, and no masses palpated. Bowel Sounds normal. MUSCULOSKELETAL: Good range of motion of all major joints. Extremities without clubbing, cyanosis or edema. NEUROLOGIC EXAM: Alert and oriented x 3. No focal sensory or strength deficits. Speech normal. Follows commands. PSYCHIATRIC: Mood normal. SKIN: Multiple skin tattoos. - Constitutional Vitals: Temp Pulse Resp BP Pulse Ox 98.5 F 70 20 97/54 96 10/19/17 07:58 10/19/17 09:58 10/19/17 09:58 10/19/17 07:58 10/19/17 09:58 Plan Activity: advance as tolerated, fall precautions Diet: low salt Special Instructions: record daily weights, record daily BP diary Durable Medical Equipment Needed Upon Discharge: Nebulizer Follow up with: MURRAY PAL MD [Primary Care Provider] - 3-5 Days OMID ALVARES MD [Staff Physician] - 7 Days SHANELLE DIAZ MD [Staff Physician] - 7 Days Forms: Discharge Signature Page Prescriptions: Apixaban [Eliquis] 5 mg PO Q12HR #60 tablet Fluticasone [Flonase] 200 mcg NS QDAY #1 bottle Ipratropium/Albuterol Sulfate [DUONEB *Not for PRN Use*] 1 ampul IH Q6HRT #30 ampul.neb oxyCODONE /ACETAMINOPHEN [Percocet 5/325 mg] 1 tab PO Q6H PRN #14 tablet PRN Reason: Pain, Moderate (4-6) Pantoprazole [Protonix TAB] 40 mg PO QDAY #30 tablet Prednisone [predniSONE 5 mg (6-Day Pack, 21 Tabs)] 5 mg PO .TAPER #1 tab.ds.pk Torsemide [Demadex] 100 mg PO QDAY #30 tablet
[2017-10-19 13:13] VITALS: BP 97/64
--- NOTE | 2017-10-19 13:18 | Progress Note ---
Assessment and Plan Imp: 1. NICMP 2. A/C systolic CHF 3. Acute respiratory failure, hypoxia 4. ? COPD exac. 5. BRITTON, morbid obesity 6. Pulm HTN 7. Afib Rec: 1. Change to prednisone 20mg daily in AM and can taper off quickly at d/c 2. Lasix per cards 3. Bronchodilators 4. LE dopplers negative; do not believe it is worthwhile to repeat CTA chest or V/Q (neg 06/2017) as he is now on Eliquis anyway; monitor 5. CPAP QHS and prn 6. Outpatient PFTs 7. Check need for home O2 prior to d/c 8. F/u with Dr. Graf 1-2 weeks after d/c Plan of care reviewed with patient, he understands/agrees Subjective Date of service: 10/19/17 Principal diagnosis: epigastric pain w/ nausea Interval history: No events. SOB much improved. Now on RA. Denies chest pain, cough, sputum, new complaints. Active Medications Acetaminophen (Tylenol) 650 mg PO Q4H PRN PRN Reason: Pain MILD(1-3)/Fever >100.5/KNIGHT Albuterol (Proventil) 2.5 mg IH Q3HRT PRN PRN Reason: Wheezing/ SOB Last Admin: 10/17/17 21:46 Dose: 2.5 mg Albuterol/Ipratropium (Duoneb *Not For Prn Use*) 1 ampul IH Q6HRT [facility] Last Admin: 10/19/17 08:02 Dose: 1 ampul Allopurinol (Zyloprim) 100 mg PO QDAY [facility] Last Admin: 10/19/17 10:48 Dose: 100 mg Apixaban (Eliquis) 5 mg PO Q12HR [facility] PRN Reason: Protocol Last Admin: 10/19/17 10:47 Dose: 5 mg Aspirin (Ecotrin) 325 mg PO QDAY [facility] Last Admin: 10/19/17 10:47 Dose: 325 mg Benzocaine/Menthol (Cepacol X Strength) 1 each MM Q2HR PRN PRN Reason: Sore Throat Last Admin: 10/16/17 21:31 Dose: 1 each Bisacodyl (Dulcolax) 10 mg HI QDAY PRN PRN Reason: Constipation unrelieved by MOM Carvedilol (Coreg) 25 mg PO BID [facility] Last Admin: 10/19/17 10:47 Dose: 25 mg Dextrose (D50w (25gm) Syringe) 50 ml IV PRN PRN PRN Reason: Hypoglycemia Digoxin (Lanoxin) 0.125 mg PO DAILY@1700 [facility] Last Admin: 10/18/17 17:08 Dose: 0.125 mg Ferrous Sulfate (Feosol) 325 mg PO BID [facility] Last Admin: 10/19/17 10:47 Dose: 325 mg Fluticasone Propionate (Flonase) 200 mcg NS QDAY [facility] Last Admin: 10/19/17 10:49 Dose: 200 mcg Furosemide (Lasix) 60 mg IV 0600,1800 [facility] Last Admin: 10/19/17 06:08 Dose: 60 mg Hydralazine HCl (Apresoline) 25 mg PO Q8HR [facility] Last Admin: 10/19/17 06:08 Dose: 25 mg Hydromorphone HCl (Dilaudid) 1 mg IV Q3H PRN PRN Reason: Pain , Severe (7-10) Last Admin: 10/18/17 22:15 Dose: 1 mg Insulin Aspart (Novolog) 0 units SUB-Q ACHS [facility] PRN Reason: Protocol Last Admin: 10/19/17 12:18 Dose: 3 units Insulin Detemir (Levemir) 30 units SUB-Q QHS [facility] Isosorbide Dinitrate (Isordil Titradose) 10 mg PO Q8HR [facility] Last Admin: 10/19/17 06:08 Dose: 10 mg Levofloxacin (Levaquin) 750 mg PO DAILY [facility] Last Admin: 10/19/17 10:47 Dose: 750 mg Lisinopril (Zestril) 2.5 mg PO QDAY [facility] Last Admin: 10/19/17 10:48 Dose: 2.5 mg Magnesium Hydroxide (Milk Of Magnesia) 30 ml PO Q4H PRN PRN Reason: Constipation Magnesium Oxide (Mag-Ox) 400 mg PO DAILY [facility] Last Admin: 10/19/17 10:48 Dose: 400 mg Metolazone (Zaroxolyn) 5 mg PO Mo [facility] Last Admin: 10/15/17 10:04 Dose: 5 mg Morphine Sulfate (Morphine) 2 mg IV Q4H PRN PRN Reason: Pain, Moderate (4-6) Ondansetron HCl (Zofran) 4 mg IV Q8H PRN PRN Reason: N/V unrelieved by Reglan Last Admin: 10/17/17 08:42 Dose: 4 mg Oxycodone/Acetaminophen (Percocet 5/325) 1 tab PO Q6H PRN PRN Reason: Pain, Moderate (4-6) Last Admin: 10/19/17 10:52 Dose: 1 tab Pantoprazole Sodium (Protonix) 40 mg PO QDAY [facility] Last Admin: 10/19/17 10:48 Dose: 40 mg Potassium Chloride (K-Dur) 20 meq PO BID [facility] Last Admin: 10/19/17 10:47 Dose: 20 meq Prednisone (Deltasone) 20 mg PO QDAY [facility] Last Admin: 10/19/17 10:47 Dose: 20 mg Sucralfate (Carafate) 1 gm PO Q6HR [facility] Last Admin: 10/19/17 12:35 Dose: 1 gm Zolpidem Tartrate (Ambien) 5 mg PO QHS PRN PRN Reason: Insomnia Last Admin: 10/18/17 22:15 Dose: 5 mg Objective Vital Signs - 12hr 10/19/17 10/19/17 10/19/17 02:30 02:40 05:43 Temperature 97.3 F L Pulse Rate 71 Pulse Rate [ 66 65 Anterior Bilateral Throughout] Pulse Rate [ Apical] Respiratory 24 Rate Respiratory 18 16 Rate [Anterior Bilateral Throughout] Blood Pressure 112/63 O2 Sat by Pulse 97 Oximetry 10/19/17 10/19/17 10/19/17 07:58 09:00 09:58 Temperature 98.5 F Pulse Rate 70 70 Pulse Rate [ 70 Anterior Bilateral Throughout] Pulse Rate [ 70 Apical] Respiratory 20 20 Rate Respiratory 20 Rate [Anterior Bilateral Throughout] Blood Pressure 97/54 O2 Sat by Pulse 95 96 Oximetry 10/19/17 12:05 Temperature 98.3 F Pulse Rate Pulse Rate [ Anterior Bilateral Throughout] Pulse Rate [ Apical] Respiratory 20 Rate Respiratory Rate [Anterior Bilateral Throughout] Blood Pressure 97/64 O2 Sat by Pulse Oximetry Constitutional: no acute distress, other (morbidly obese) ENT: oropharynx moist, other (severely crowded Mallampati class IV) Neck: supple Effort: normal Ascultation: Bilateral: clear Cardiovascular: irregular rhythm (no mrg) Gastrointestinal: normoactive bowel sounds, soft, non-tender, other (obese abd) Extremities: no cyanosis, edema (1+) Neurologic: normal mental status, non-focal exam Psychiatric: mood appropriate, affect normal CBC and BMP: 10/16/17 04:35 10/18/17 15:45 ABG, PT/INR, D-dimer: ABG POC ABG pH 7.522 (7.35-7.45) H 10/16/17 17:34 POC ABG pCO2 36.3 (35-45) 10/16/17 17:34 POC ABG pO2 112 (80-105) H 10/16/17 17:34 POC ABG HCO3 29.8 10/16/17 17:34 POC ABG Total CO2 31 10/16/17 17:34 POC ABG O2 Sat 99 10/16/17 17:34 Abnormal lab findings: Abnormal Labs 10/14/17 10/14/17 10/14/17 23:11 23:11 23:11 WBC RDW 17.8 H Lymph % (Auto) Lymph # Seg Neutrophils % 73.2 H Seg Neutrophils # POC ABG pH POC ABG pO2 Sodium Chloride 93.6 L BUN Glucose POC Glucose Hemoglobin A1c Total Bilirubin 2.70 H NT-Pro-B Natriuret Pep 5770 H Albumin 10/15/17 10/15/17 10/15/17 04:49 08:01 11:18 WBC RDW Lymph % (Auto) Lymph # Seg Neutrophils % Seg Neutrophils # POC ABG pH POC ABG pO2 Sodium Chloride BUN Glucose POC Glucose 262 H 299 H Hemoglobin A1c 6.5 H Total Bilirubin NT-Pro-B Natriuret Pep Albumin 10/15/17 10/15/17 10/16/17 16:19 21:52 04:35 WBC 15.1 H RDW 18.1 H Lymph % (Auto) 5.5 L Lymph # 0.8 L Seg Neutrophils % 89.7 H Seg Neutrophils # 13.5 H POC ABG pH POC ABG pO2 Sodium Chloride BUN Glucose POC Glucose 192 H 224 H Hemoglobin A1c Total Bilirubin NT-Pro-B Natriuret Pep Albumin 10/16/17 10/16/17 10/16/17 04:35 07:41 12:04 WBC RDW Lymph % (Auto) Lymph # Seg Neutrophils % Seg Neutrophils # POC ABG pH POC ABG pO2 Sodium 131 L Chloride 86.8 L BUN 21 H Glucose 243 H POC Glucose 193 H 252 H Hemoglobin A1c Total Bilirubin 2.30 H NT-Pro-B Natriuret Pep Albumin 3.7 L 10/16/17 10/16/17 10/16/17 17:09 17:34 20:38 WBC RDW Lymph % (Auto) Lymph # Seg Neutrophils % Seg Neutrophils # POC ABG pH 7.522 H POC ABG pO2 112 H Sodium Chloride BUN Glucose POC Glucose 222 H 255 H Hemoglobin A1c Total Bilirubin NT-Pro-B Natriuret Pep Albumin 10/17/17 10/17/17 10/17/17 07:45 11:52 15:27 WBC RDW Lymph % (Auto) Lymph # Seg Neutrophils % Seg Neutrophils # POC ABG pH POC ABG pO2 Sodium Chloride BUN Glucose POC Glucose 205 H 232 H 227 H Hemoglobin A1c Total Bilirubin NT-Pro-B Natriuret Pep Albumin 10/17/17 10/18/17 10/18/17 21:22 08:16 12:52 WBC RDW Lymph % (Auto) Lymph # Seg Neutrophils % Seg Neutrophils # POC ABG pH POC ABG pO2 Sodium Chloride BUN Glucose POC Glucose 259 H 208 H 316 H Hemoglobin A1c Total Bilirubin NT-Pro-B Natriuret Pep Albumin 10/18/17 10/18/17 10/19/17 16:34 21:00 08:02 WBC RDW Lymph % (Auto) Lymph # Seg Neutrophils % Seg Neutrophils # POC ABG pH POC ABG pO2 Sodium Chloride BUN Glucose POC Glucose 266 H 249 H 119 H Hemoglobin A1c Total Bilirubin NT-Pro-B Natriuret Pep Albumin 10/19/17 12:12 WBC RDW Lymph % (Auto) Lymph # Seg Neutrophils % Seg Neutrophils # POC ABG pH POC ABG pO2 Sodium Chloride BUN Glucose POC Glucose 167 H Hemoglobin A1c Total Bilirubin NT-Pro-B Natriuret Pep Albumin Chest x-ray: report reviewed, image reviewed
== END 2017-10-19 15:16 | disposition home or self-care (01) | DRG 291 ==
LOC: ED 22:40 → 4A 10-15 01:03
PROVIDERS: ADMIT Internal Medicine; ATTEND Internal Medicine
PROC: 4A033R1 Measurement of Arterial Saturation, Peripheral, Percutaneous Approach (ICD-10-PCS; principal; 2017-10-16)
DX: I11.0 Hypertensive heart disease with heart failure (principal); J96.21 Acute and chronic respiratory failure with hypoxia; I50.43 Acute on chronic combined systolic (congestive) and diastolic (congestive) heart failure; J44.1 Chronic obstructive pulmonary disease with (acute) exacerbation; I48.92 Unspecified atrial flutter; E11.9 Type 2 diabetes mellitus without complications; M10.9 Gout, unspecified; M17.0 Bilateral primary osteoarthritis of knee; E66.01 Morbid (severe) obesity due to excess calories; I25.10 Atherosclerotic heart disease of native coronary artery without angina pectoris; I27.20 Pulmonary hypertension, unspecified; G47.33 Obstructive sleep apnea (adult) (pediatric); I42.0 Dilated cardiomyopathy; E06.4 Drug-induced thyroiditis; T46.2X5A Adverse effect of other antidysrhythmic drugs, initial encounter; Y92.89 Other specified places as the place of occurrence of the external cause; Z88.8 Allergy status to other drugs, medicaments and biological substances; Z91.018 Allergy to other foods; Z82.49 Family history of ischemic heart disease and other diseases of the circulatory system; Z79.899 Other long term (current) drug therapy; Z86.718 Personal history of other venous thrombosis and embolism; Z86.711 Personal history of pulmonary embolism; Z95.810 Presence of automatic (implantable) cardiac defibrillator; Z87.891 Personal history of nicotine dependence; Z90.49 Acquired absence of other specified parts of digestive tract; Z68.43 Body mass index [BMI] 50.0-59.9, adult
CPT/HCPCS: 36415; 36600; 71010; 80053; 82803; 82962; 83036; 83735; 83880; 84132; 84484; 85025; 90686; 93005; 93010; 93970; 94640; 94760; 96374; 96375; J1170; J1815; J1818; J1940; J1956; J2405; J2920; J2930; J7512

== ENCOUNTER 2017-12-07 06:36 | Day surgery (SDC) | payer MEDICAID ==
--- NOTE | 2017-12-07 07:43 | Anesthesia Consultation ---
Anesthesia Consult and Med Hx Date of service: 12/07/17 - Airway Anesthetic Teeth Evaluation: Poor (missing teeth) ROM Head & Neck: Adequate Mental/Hyoid Distance: Adequate Mallampati Class: Class IV Intubation Access Assessment: Possibly Difficult - Pre-Operative Health Status ASA Pre-Surgery Classification: ASA4 Proposed Anesthetic Plan: MAC - Pulmonary Hx Smoking: Yes Hx Asthma: Yes SOB: Yes COPD: Yes Hx Pneumonia: No Hx Sleep Apnea: Yes (Uses CPAP) - Cardiovascular System Hx Hypertension: Yes Hx Coronary Artery Disease: Yes Hx Heart Attack/AMI: No Hx Angina: Yes (Non obstructive cardiomyopathy EF 10-15%) Hx Percutaneous Transluminal Coronary Angioplasty (PTCA): No Hx Cardia Arrhythmia: Yes (h/o AFIB in NSR with sotolol, h/o VF) Hx Pacemaker: Yes Hx Internal Defibrillator: Yes Hx Valvular Heart Disease: No Hx Heart Murmur: No Hx Peripheral Vascular Disease: No - Central Nervous System Hx Neuromuscular Disorder: (Gout) Hx Psychiatric Problems: Yes (anxiety) - Endocrine Hx Renal Disease: Yes (insufficiency) Hx End Stage Renal Disease: No Hx Liver Disease: No Hx Insulin Dependent Diabetes: Yes Hx Hypothyroidism: No Hx Hyperthyroidism: No - Hematic Hx Anemia: Yes Hx Sickle Cell Disease: No - Other Systems Hx Cancer: No Hx Obesity: Yes (BMI 48.7)
--- NOTE | 2017-12-07 07:44 | Anesthesia Day of Surgery ---
Anesthesia Day of Surgery - Day of Surgery Patient Examined: Yes Patient H&P Reviewed: Yes Patient is NPO: Yes Beta Blockers: Yes Cardiac Clearance: Yes
[2017-12-07] MEDS ORDERED: AMIDATE IV ONE ×3 (07:49)
[2017-12-07] MEDS ORDERED: VERSED ONE (07:50)
[2017-12-07] MEDS ORDERED: NACL 0.9% 500 ML 500 ML IV SCH (08:00)
[2017-12-07] MEDS ORDERED: HURRICAINE ONE 20% TOPICAL SPRAY MM (08:27)
[2017-12-07] MEDS ORDERED: HURRICAINE ONE 20% TOPICAL SPRAY MM NR (09:00)
--- NOTE | 2017-12-07 09:22 | Short Stay Summary ---
Short Stay Documentation Date of service: 12/07/17 - History H&P: obtained from office - Allergies and Medications Current Medications: Allergies cephalexin monohydrate [From Keflex] Allergy (Verified 08/01/17 08:21) Hives pt states makes skin yellow. lidocaine Allergy (Verified 03/09/15 22:20) Hives mushrooms Allergy (Uncoded 06/26/15 12:23) Swelling Home Medications Medication Instructions Recorded Confirmed Last Taken Type Ferrous Sulfate [Feosol 325 MG tab] 325 mg PO BID 05/19/15 12/07/17 12/07/17 06: 30 History Magnesium Oxide 400 mg PO DAILY 08/31/16 12/07/17 12/07/17 06:30 History glipiZIDE [Glucotrol] 10 mg PO QDAY 03/16/17 12/07/17 12/07/17 06:30 History Carvedilol [Coreg] 25 mg PO BID #60 tablet 06/10/17 12/07/17 12/07/17 06:30 Rx Lisinopril [Zestril TAB] 2.5 mg PO QDAY #30 tablet 06/10/17 12/07/17 12/07/17 06 :30 Rx Insulin Glargine,Hum.rec.anlog 20 units SQ QHS #5 pen 07/09/17 12/07/17 Rx [Lantus Solostar] Isosorbide Dinitrate 10 mg PO Q8H #90 tablet 08/01/17 12/07/17 12/07/17 06:30 Rx Allopurinol 100 mg PO BID 09/05/17 12/07/17 12/07/17 06:30 History Potassium Chloride [K-Dur] 20 meq PO BID #30 tablet 09/08/17 12/07/17 12/07/17 06:30 Rx Digoxin 125 mcg PO DAILY 10/14/17 12/07/17 12/07/17 06:30 History Metolazone 5 mg PO QWEEK 10/14/17 12/07/17 1 Week Ago History ~11/30/17 hydrALAZINE [Apresoline TAB] 25 mg PO Q8HR 10/14/17 12/07/17 12/07/17 06:30 History Apixaban [Eliquis] 5 mg PO Q12HR #60 tablet 10/19/17 12/07/17 12/07/17 06:30 Rx Fluticasone [Flonase] 200 mcg NS QDAY #1 bottle 10/19/17 12/07/17 Unknown Rx Torsemide [Demadex] 100 mg PO QDAY #30 tablet 10/19/17 12/07/17 12/07/17 06:30 Rx oxyCODONE /ACETAMINOPHEN [Percocet 1 tab PO Q6H PRN #14 tablet 10/19/17 1 Month Ago Rx 5/325 mg] ~11/06/17 Aspirin EC [Ecotrin] 325 mg PO QDAY 12/07/17 12/07/17 12/07/17 06:30 History Spironolactone [Aldactone] 25 mg PO QDAY 12/07/17 12/07/17 12/07/17 06:30 History Active Medications Benzocaine (Hurricaine One 20% Topical Jordan) 3 spray MM PREOP NR Sodium Chloride (Nacl 0.9% 500 Ml) 500 mls @ 50 mls/hr IV DIRECT ROBERT Last Admin: 12/07/17 08:27 Dose: 50 mls/hr - Physical exam General appearance: no acute distress Integumentary: no rash HEENT: Atraumatic Lungs: Clear to auscultation Breasts: deferred Heart: Other Gastrointestinal: normal Male Genitourinary: deferred Female Genitourinary: deferred Rectal Exam: deferred Extremities: no ischemia - Brief post op/procedure progress note Date of procedure: 12/07/17 Pre-op diagnosis: Atrial flutter Post-op diagnosis: same Procedure: YARELY guided CV Anesthesia: MAC Findings: See report Surgeon: OMID ALVARES Estimated blood loss: none Pathology: none Condition: stable - Hospital course Hospital course: Uneventful - Disposition Condition at discharge: Good Disposition: DC-01 TO HOME OR SELFCARE Short Stay Discharge Plan Activity: advance as tolerated Weight Bearing Status: Non-Weight Bearing Diet: low fat, low cholesterol, low salt, diabetic Follow up with: STONE MOSES MD [Primary Care Provider] - 7 Days
[2017-12-07 13:04] VITALS: BP 123/67
--- NOTE | 2017-12-08 02:22 | Procedure Note ---
CARDIOVERSION REPORT INDICATION: Atypical atrial flutter. ORDERING PHYSICIAN: Ivy Salazar MD DESCRIPTION OF PROCEDURE: After obtaining written consent and then after documenting the absence of left atrial appendage clot, the patient was deeply sedated with Versed and etomidate in the presence of anesthesia. 200 joules synchronized shock was administered with successful conversion from atrial flutter into sinus rhythm. No complications occurred during the procedure. IMPRESSION: Successful conversion from atrial flutter into sinus rhythm after a 200 joule synchronized shock. JOB# [id number] EKATERINA/BEATA
== END 2017-12-07 12:45 | disposition home or self-care (01) ==
LOC: CATHLABREC 06:36 → EDSTATUS 10:30 → CATHLABREC 12:45
PROVIDERS: ATTEND Internal Medicine
DX: I48.4 Atypical atrial flutter (principal); Z79.899 Other long term (current) drug therapy; I10 Essential (primary) hypertension; I25.118 Atherosclerotic heart disease of native coronary artery with other forms of angina pectoris; Z95.0 Presence of cardiac pacemaker; I48.91 Unspecified atrial fibrillation; G47.30 Sleep apnea, unspecified; Z99.89 Dependence on other enabling machines and devices; J44.9 Chronic obstructive pulmonary disease, unspecified; F17.200 Nicotine dependence, unspecified, uncomplicated; F41.9 Anxiety disorder, unspecified; M10.9 Gout, unspecified; E11.9 Type 2 diabetes mellitus without complications; E66.9 Obesity, unspecified; Z68.42 Body mass index [BMI] 45.0-49.9, adult; Z88.8 Allergy status to other drugs, medicaments and biological substances; Z91.018 Allergy to other foods; Z79.4 Long term (current) use of insulin; Z79.82 Long term (current) use of aspirin
CPT/HCPCS: 36415; 82962; 87040; 87076; 87186; 92960; 93005; 93010; 93312; 93320; 93325; J2250; J7040

== ENCOUNTER 2017-12-15 21:04 | Emergency (ER) | payer MEDICAID ==
--- NOTE | 2017-12-15 21:49 | Emergency Department Report ---
ED Shortness of Breath HPI - General Chief Complaint: Weakness Stated Complaint: WEAKNESS Time Seen by Provider: 12/15/17 21:21 Source: patient, EMS Mode of arrival: Stretcher Limitations: No Limitations - History of Present Illness Initial Comments: Patient is a 46-year-old male with past medical history is negative for PE as congestive heart failure COPD coronary disease and hypertension. Patient also has a defibrillator. Patient recently underwent electrical cardioversion of A. fib on 12/07/[address] Salazar which was successful. Patient received 200 J second shock. Patient states he was at home tonight and became acutely dizzy and short of breath with some mild chest discomfort. Patient states he felt as though his heart was racing. Patient states he feels this way before his defibrillator goes off however he states that no shocks were delivered tonight. Patient states he is continuing to have shortness of breath and dizziness. Severity: mild Pain Scale: 3 Quality: dull Consistency: constant Improves With: nothing Worsens With: nothing Associated Symptoms: chest pain Treatments Prior to Arrival: none - Related Data Home Medications Medication Instructions Recorded Confirmed Last Taken Ferrous Sulfate [Feosol 325 MG tab] 325 mg PO BID 05/19/15 12/07/17 12/07/17 06: 30 Magnesium Oxide 400 mg PO DAILY 08/31/16 12/07/17 12/07/17 06:30 glipiZIDE [Glucotrol] 10 mg PO QDAY 03/16/17 12/07/17 12/07/17 06:30 Allopurinol 100 mg PO BID 09/05/17 12/07/17 12/07/17 06:30 Digoxin 125 mcg PO DAILY 10/14/17 12/07/17 12/07/17 06:30 Metolazone 5 mg PO QWEEK 10/14/17 12/07/17 1 Week Ago ~11/30/17 hydrALAZINE [Apresoline TAB] 25 mg PO Q8HR 10/14/17 12/07/17 12/07/17 06:30 Aspirin EC [Aspirin Enteric Coated 325 mg PO QDAY 12/07/17 12/07/17 12/07/17 06: 30 TAB] Spironolactone [Aldactone] 25 mg PO QDAY 12/07/17 12/07/17 12/07/17 06:30 Previous Rx's Medication Instructions Recorded Last Taken Type Carvedilol [Coreg] 25 mg PO BID #60 tablet 06/10/17 12/07/17 06:30 Rx Lisinopril [Zestril TAB] 2.5 mg PO QDAY #30 tablet 06/10/17 12/07/17 06:30 Rx Insulin Glargine,Hum.rec.anlog 20 units SQ QHS #5 pen 07/09/17 12/06/17 Rx [Lantus Solostar] Isosorbide Dinitrate 10 mg PO Q8H #90 tablet 08/01/17 12/07/17 06:30 Rx Potassium Chloride [K-Dur] 20 meq PO BID #30 tablet 09/08/17 12/07/17 06:30 Rx Apixaban [Eliquis] 5 mg PO Q12HR #60 tablet 10/19/17 12/07/17 06:30 Rx Fluticasone [Flonase] 200 mcg NS QDAY #1 bottle 10/19/17 Unknown Rx Torsemide [Demadex] 100 mg PO QDAY #30 tablet 10/19/17 12/07/17 06:30 Rx oxyCODONE /ACETAMINOPHEN [Percocet 1 tab PO Q6H PRN #14 tablet 10/19/17 1 Month Ago Rx 5/325 mg] ~11/06/17 Allergies Allergy/AdvReac Type Severity Reaction Status Date / Time cephalexin monohydrate Allergy Hives Verified 08/01/17 08:21 [From Keflex] lidocaine Allergy Hives Verified 03/09/15 22:20 mushrooms Allergy Swelling Uncoded 06/26/15 12:23 ED Review of Systems ROS: Stated complaint: WEAKNESS Other details as noted in HPI Comment: All other systems reviewed and negative ED Past Medical Hx - Past Medical History Previous Medical History?: Yes Hx Hypertension: Yes Hx Heart Attack/AMI: No Hx Congestive Heart Failure: Yes Hx Diabetes: Yes (oral and insulin) Hx Deep Vein Thrombosis: Yes Hx Pulmonary Embolism: No (Denies) Hx Liver Disease: No Hx Renal Disease: Yes (insufficiency) Hx Sickle Cell Disease: No Hx Arthritis: Yes (Knees, gout) Hx Asthma: Yes Hx COPD: Yes Hx Tuberculosis: No Hx HIV: No Additional medical history: copd; sleep apnea. anemia - Surgical History Past Surgical History?: Yes Hx Coronary Stent: No Hx Pacemaker: Yes Hx Internal Defibrillator: Yes (2008) Hx Cholecystectomy: Yes (2013) Additional Surgical History: defibrillator, pacemaker - Social History Smoking Status: Never Smoker Substance Use Type: None - Medications Home Medications: Home Medications Medication Instructions Recorded Confirmed Last Taken Type Ferrous Sulfate [Feosol 325 MG tab] 325 mg PO BID 05/19/15 12/07/17 12/07/17 06: 30 History Magnesium Oxide 400 mg PO DAILY 08/31/16 12/07/17 12/07/17 06:30 History glipiZIDE [Glucotrol] 10 mg PO QDAY 03/16/17 12/07/17 12/07/17 06:30 History Carvedilol [Coreg] 25 mg PO BID #60 tablet 06/10/17 12/07/17 12/07/17 06:30 Rx Lisinopril [Zestril TAB] 2.5 mg PO QDAY #30 tablet 06/10/17 12/07/17 12/07/17 06 :30 Rx Insulin Glargine,Hum.rec.anlog 20 units SQ QHS #5 pen 07/09/17 12/07/17 Rx [Lantus Solostar] Isosorbide Dinitrate 10 mg PO Q8H #90 tablet 08/01/17 12/07/17 12/07/17 06:30 Rx Allopurinol 100 mg PO BID 09/05/17 12/07/17 12/07/17 06:30 History Potassium Chloride [K-Dur] 20 meq PO BID #30 tablet 09/08/17 12/07/17 12/07/17 06:30 Rx Digoxin 125 mcg PO DAILY 10/14/17 12/07/17 12/07/17 06:30 History Metolazone 5 mg PO QWEEK 10/14/17 12/07/17 1 Week Ago History ~11/30/17 hydrALAZINE [Apresoline TAB] 25 mg PO Q8HR 10/14/17 12/07/17 12/07/17 06:30 History Apixaban [Eliquis] 5 mg PO Q12HR #60 tablet 10/19/17 12/07/17 12/07/17 06:30 Rx Fluticasone [Flonase] 200 mcg NS QDAY #1 bottle 10/19/17 12/07/17 Unknown Rx Torsemide [Demadex] 100 mg PO QDAY #30 tablet 10/19/17 12/07/17 12/07/17 06:30 Rx oxyCODONE /ACETAMINOPHEN [Percocet 1 tab PO Q6H PRN #14 tablet 10/19/17 1 Month Ago Rx 5/325 mg] ~11/06/17 Aspirin EC [Aspirin Enteric Coated 325 mg PO QDAY 12/07/17 12/07/17 12/07/17 06: 30 History TAB] Spironolactone [Aldactone] 25 mg PO QDAY 12/07/17 12/07/17 12/07/17 06:30 History ED Physical Exam - General Limitations: No Limitations General appearance: alert, in no apparent distress - Head Head exam: Present: atraumatic, normocephalic - Eye Eye exam: Present: normal appearance - ENT ENT exam: Present: mucous membranes moist - Neck Neck exam: Present: normal inspection - Respiratory Respiratory exam: Present: normal lung sounds bilaterally. Absent: respiratory distress, wheezes, rales, rhonchi, stridor, chest wall tenderness, accessory muscle use - Cardiovascular Cardiovascular Exam: Present: regular rate, normal rhythm. Absent: systolic murmur, diastolic murmur, rubs, gallop - GI/Abdominal GI/Abdominal exam: Present: soft, normal bowel sounds. Absent: distended, tenderness, guarding, rebound - Rectal Rectal exam: Present: deferred - Extremities Exam Extremities exam: Present: normal inspection - Back Exam Back exam: Present: normal inspection - Neurological Exam Neurological exam: Present: alert, oriented X3 - Psychiatric Psychiatric exam: Present: normal affect, normal mood - Skin Skin exam: Present: warm, dry, intact, normal color. Absent: rash ED Course Vital Signs 12/15/17 22:17 Temperature 97.9 F Pulse Rate 65 Respiratory 22 Rate Blood Pressure 98/54 [Left] O2 Sat by Pulse 99 Oximetry ED Medical Decision Making - Lab Data Result diagrams: 12/15/17 21:42 12/15/17 21:42 - EKG Data -: EKG Interpreted by Me - EKG Data Interpretation: other (EKG shows a AV dual paced complex rhythm with a rate of 70 intervals prolonged QT axis is leftward there is no ST segment elevations or depressions. Consistent with a paced rhythm there is one PVC present) - Medical Decision Making Patient's laboratory studies. B within normal limits. Patient seemed disappointed that all of his labs and studies were within normal limits. Patient states that where he is lives is very loud he also has a lot of anxiety that his defibrillators, go off. Patient states she hasn't slept in approximately 2 days. Patient most likely had an anxiety reaction this evening before arrival. Patient be given a Xanax here in the emergency Department be discharged home. Critical care attestation.: If time is entered above; I have spent that time in minutes in the direct care of this critically ill patient, excluding procedure time. ED Disposition Clinical Impression: Anxiety reaction, Sleep deprivation Disposition: DC-01 TO HOME OR SELFCARE Is pt being admited?: No Does the pt Need Aspirin: No Condition: Fair Instructions: Stress (ED), Insomnia (ED) Referrals: MURRAY PAL MD [Primary Care Provider] - 3-5 Days
[2017-12-15 21:51] LABS: Basophils # (Auto) 0.1 K/mm3 (0.0-0.1); Basophils % (Auto) 1.2 % (0.0-1.8); Eosinophils # (Auto) 0.1 K/mm3 (0.0-0.4); Eosinophils % (Auto) 1.3 % (0.0-4.3); Hematocrit 37.8 % (35.5-45.6); Hemoglobin 12.5 gm/dl (11.8-15.2); Lymphocytes % (Auto) 18.1 % (13.4-35.0); Mean Corpuscular HGB Conc 33 % (32-34); Mean Corpuscular Hemoglobin 30 pg (28-32); Mean Corpuscular Volume 91 fl (84-94); Monocytes # (Auto) 0.9 K/mm3 (0.0-0.8); Monocytes % (Auto) 7.7 % (0.0-7.3); Platelet Count 240 K/mm3 (140-440); Red Blood Count 4.15 M/mm3 (3.65-5.03)
[2017-12-15 21:55] LABS: Red Cell Distribution Width 20.8 % (13.2-15.2)
[2017-12-15 22:00] LABS: INR 1.12 (0.87-1.13)
[2017-12-15 22:01] LABS: Partial Thromboplastin Time 31.5 Sec. (24.2-36.6)
[2017-12-15 22:03] LABS: Albumin 4.1 g/dL (3.9-5); Calcium 9.4 mg/dL (8.4-10.2)
--- NOTE | 2017-12-15 22:55 | XRay Report ---
FINAL REPORT EXAM: XR CHEST 1V AP HISTORY: Chest Pain TECHNIQUE: Portable upright frontal chest x-ray Comparison: 10/14/2017, 09/05/2017 FINDINGS: There is a pacer/AICD present. It is unchanged from previous. There is stable mild cardiomegaly. There is stable prominence of the bilateral bronchovascular interstitium diffusely without acute infiltrate identified. IMPRESSION: AICD/pacer. Cardiomegaly. No overt failure or focal infiltrate. No acute cardiopulmonary disease.
[2017-12-15 23:01] LABS: Bilirubin,Urine NEG (Negative); Blood,Urine NEG (Negative); Color,Urine Yellow (Yellow); Mucus,Urine FEW /HPF; Protein,Urine <15 mg/dL mg/dL (Negative); Urobilinogen,Urine < 2.0 mg/dL (<2.0)
[2017-12-15 23:08] LABS: Amphetamine Screen,Urine PRESUMPTIVE NEGATIVE; Benzodiazepines Screen,Urine PRESUMPTIVE NEGATIVE; Cannabinoid Screen,Urine PRESUMPTIVE NEGATIVE; Cocaine Screen,Urine PRESUMPTIVE NEGATIVE; Methadone Screen,Urine PRESUMPTIVE NEGATIVE; Opiate Screen,Urine PRESUMPTIVE NEGATIVE
[2017-12-15] MEDS ORDERED: XANAX PO ONE (23:35)
[2017-12-16 00:09] VITALS: BP 103/65
== END 2017-12-16 00:22 | disposition home or self-care (01) ==
LOC: ED 21:04
DX: F41.1 Generalized anxiety disorder (principal); Z72.820 Sleep deprivation; I10 Essential (primary) hypertension; I50.9 Heart failure, unspecified; E11.9 Type 2 diabetes mellitus without complications; M19.90 Unspecified osteoarthritis, unspecified site; Z95.818 Presence of other cardiac implants and grafts; Z79.4 Long term (current) use of insulin; Z91.018 Allergy to other foods; Z88.8 Allergy status to other drugs, medicaments and biological substances
CPT/HCPCS: 36415; 71045; 80053; 80307; 81001; 85025; 85610; 85730; 93005; 93010

== ENCOUNTER 2017-12-31 23:43 | Inpatient (IN) | payer MEDICAID ==
[2017-12-31] MEDS ORDERED: MORPHINE IV ONE (23:56)
[2017-12-31] MEDS ORDERED: ZOFRAN IV ONE (23:56)
--- NOTE | 2018-01-01 00:15 | Emergency Department Report ---
HPI - General Time Seen by Provider: 12/31/17 23:48 - HPI HPI: Room 18 The patient is a 47-year-old male presenting with a chief complaint of chest pain and shortness of breath. The patient states he was at rest this evening when began feeling dizzy and lightheaded. The patient states he went outside to get a then developed right-sided chest pressure associated with shortness of breath nausea and vomiting. Patient denies diaphoresis. He states his pressures been constant and he currently gives it a score of 6/10. Location: [See above] Duration: [See above] Quality: Pressure Severity: 6/10 Modifying factors: [see above] Context: [see above] Mode of transportation: [not driving] ED Past Medical Hx - Past Medical History Hx Hypertension: Yes Hx Congestive Heart Failure: Yes Hx Diabetes: Yes (oral and insulin) Hx Deep Vein Thrombosis: Yes Hx Renal Disease: Yes (insufficiency) Hx Arthritis: Yes (Knees, gout) Hx Asthma: Yes Hx COPD: Yes Additional medical history: copd; sleep apnea. anemia - Surgical History Hx Pacemaker: Yes Hx Internal Defibrillator: Yes (2008) Hx Cholecystectomy: Yes (2013) Additional Surgical History: defibrillator, pacemaker - Family History Family history: no significant - Social History Smoking Status: Never Smoker Substance Use Type: None (denies illicit drug use) - Medications Home Medications: Home Medications Medication Instructions Recorded Confirmed Last Taken Type Ferrous Sulfate [Feosol 325 MG tab] 325 mg PO BID 05/19/15 12/07/17 12/07/17 06: 30 History Magnesium Oxide 400 mg PO DAILY 08/31/16 12/07/17 12/07/17 06:30 History glipiZIDE [Glucotrol] 10 mg PO QDAY 03/16/17 12/07/17 12/07/17 06:30 History Carvedilol [Coreg] 25 mg PO BID #60 tablet 06/10/17 12/07/17 12/07/17 06:30 Rx Lisinopril [Zestril TAB] 2.5 mg PO QDAY #30 tablet 06/10/17 12/07/17 12/07/17 06 :30 Rx Insulin Glargine,Hum.rec.anlog 20 units SQ QHS #5 pen 07/09/17 12/07/17 Rx [Lantus Solostar] Isosorbide Dinitrate 10 mg PO Q8H #90 tablet 08/01/17 12/07/17 12/07/17 06:30 Rx Allopurinol 100 mg PO BID 09/05/17 12/07/17 12/07/17 06:30 History Potassium Chloride [K-Dur] 20 meq PO BID #30 tablet 09/08/17 12/07/17 12/07/17 06:30 Rx Digoxin 125 mcg PO DAILY 10/14/17 12/07/17 12/07/17 06:30 History Metolazone 5 mg PO QWEEK 10/14/17 12/07/17 1 Week Ago History ~11/30/17 hydrALAZINE [Apresoline TAB] 25 mg PO Q8HR 10/14/17 12/07/17 12/07/17 06:30 History Apixaban [Eliquis] 5 mg PO Q12HR #60 tablet 10/19/17 12/07/17 12/07/17 06:30 Rx Fluticasone [Flonase] 200 mcg NS QDAY #1 bottle 10/19/17 12/07/17 Unknown Rx Torsemide [Demadex] 100 mg PO QDAY #30 tablet 10/19/17 12/07/17 12/07/17 06:30 Rx oxyCODONE /ACETAMINOPHEN [Percocet 1 tab PO Q6H PRN #14 tablet 10/19/17 1 Month Ago Rx 5/325 mg] ~11/06/17 Aspirin EC [Aspirin Enteric Coated 325 mg PO QDAY 12/07/17 12/07/17 12/07/17 06: 30 History TAB] Spironolactone [Aldactone] 25 mg PO QDAY 12/07/17 12/07/17 12/07/17 06:30 History ED Review of Systems ROS: Stated complaint: TRI Other details as noted in HPI Constitutional: denies: diaphoresis Respiratory: shortness of breath Cardiovascular: chest pain Gastrointestinal: nausea, vomiting Physical Exam - Physical Exam Physical Exam: GENERAL: The patient is well-developed well-nourished male lying on stretcher appearing to be in mild discomfort. [] HEENT: Normocephalic. Atraumatic. Extraocular motions are intact. Patient has moist mucous membranes. NECK: Supple. Trachea midline CHEST/LUNGS: Clear to auscultation. There is intermittently labored respirations HEART/CARDIOVASCULAR: Regular. There is no tachycardia. There is no gallop rub or murmur. ABDOMEN: Abdomen is soft, nontender. Patient has normal bowel sounds. There is no abdominal distention. SKIN: There is no rash. There is trace to 1+ bilateral lower extremity pitting edema. There is no diaphoresis. NEURO: The patient is awake, alert, and oriented. The patient is cooperative. The patient has normal speech MUSCULOSKELETAL:There is no evidence of acute injury. ED Medical Decision Making - Lab Data Result diagrams: 01/01/18 00:08 01/01/18 00:08 Laboratory Tests 01/01/18 01/01/18 01/01/18 00:08 00:08 00:08 WBC 10.9 RBC 3.82 Hgb 11.9 Hct 34.8 L MCV 91 MCH 31 MCHC 34 RDW 19.7 H Plt Count 233 Lymph % (Auto) 19.0 [place] % (Auto) 7.6 H Eos % (Auto) 1.1 Baso % (Auto) 0.7 Lymph # 2.1 [place] # 0.8 Eos # 0.1 Baso # 0.1 Seg Neutrophils % 71.6 H Seg Neutrophils # 7.8 H PT 14.7 INR 1.09 APTT 32.6 D-Dimer < 135 Sodium 134 L Potassium 4.3 Chloride 94.0 L Carbon Dioxide 25 Anion Gap 19 BUN 18 Creatinine 1.4 Estimated GFR 54 BUN/Creatinine Ratio 13 Glucose 174 H Calcium 9.0 Total Bilirubin 0.70 AST 15 ALT 13 Alkaline Phosphatase 78 Total Creatine Kinase 79 CK-MB (CK-2) 1.7 CK-MB (CK-2) Rel Index 2.1 Troponin T 0.023 NT-Pro-B Natriuret Pep 1271 H Total Protein 7.0 Albumin 3.8 L Albumin/Globulin Ratio 1.2 Digoxin 01/01/18 00:15 WBC RBC Hgb Hct MCV MCH MCHC RDW Plt Count Lymph % (Auto) [place] % (Auto) Eos % (Auto) Baso % (Auto) Lymph # [place] # Eos # Baso # Seg Neutrophils % Seg Neutrophils # PT INR APTT D-Dimer Sodium Potassium Chloride Carbon Dioxide Anion Gap BUN Creatinine Estimated GFR BUN/Creatinine Ratio Glucose Calcium Total Bilirubin AST ALT Alkaline Phosphatase Total Creatine Kinase CK-MB (CK-2) CK-MB (CK-2) Rel Index Troponin T NT-Pro-B Natriuret Pep Total Protein Albumin Albumin/Globulin Ratio Digoxin 0.4 L - EKG Data -: EKG Interpreted by Me Rate: normal - EKG Data When compared to previous EKG there are: no significant change Interpretation: unchanged when compared t (12/15/2017), other (paced rhythm) - Radiology Data Radiology results: report reviewed (chest x-ray), image reviewed (chest x-ray) interpreted by me: Chest x-ray-no focal infiltrates, no pneumothorax FINAL REPORT PROCEDURE: XR CHEST 1V AP TECHNIQUE: Chest radiograph anteroposterior view. CPT 36904 HISTORY: chest pain COMPARISON: 12/15/2017 FINDINGS: Heart: Normal. Mediastinum/Vessels: There is a cardiac pacemaker with the battery in the left chest wall. Lungs/Pleural space: Normal. Bony thorax: No acute osseous abnormality. Life support devices: None. IMPRESSION: No acute cardiopulmonary abnormality. Transcribed By: [facility] Dictated By: YESENIA WHYTE MD Electronically Authenticated By: YESENIA WHYTE MD Signed Date/Time: 01/01/188 DD/ TD/TT: 01/01/188 - Differential Diagnosis CHF exacerbation, ACS, GERD, PE Critical care attestation.: If time is entered above; I have spent that time in minutes in the direct care of this critically ill patient, excluding procedure time. ED Disposition Clinical Impression: Chest pain Disposition: 09 OP ADMIT IP TO THIS HOSP Is pt being admited?: Yes Does the pt Need Aspirin: Yes Condition: Fair Instructions: Chest Pain (ED) Referrals: MURRAY PAL MD [Primary Care Provider] - 3-5 Days Time of Disposition: 01:39 (hospitalist paged (Dr. Teressa Webb))
[2018-01-01 00:49] LABS: Creatine Kinase MB 1.7 ng/mL (0.0-4.0)
[2018-01-01 00:51] LABS: Albumin 3.8 g/dL (3.9-5)
[2018-01-01 00:59] LABS: Basophils # (Auto) 0.1 K/mm3 (0.0-0.1); Basophils % (Auto) 0.7 % (0.0-1.8); Eosinophils # (Auto) 0.1 K/mm3 (0.0-0.4); Eosinophils % (Auto) 1.1 % (0.0-4.3); Hematocrit 34.8 % (35.5-45.6); Hemoglobin 11.9 gm/dl (11.8-15.2); Lymphocytes # (Auto) 2.1 K/mm3 (1.2-5.4); Mean Corpuscular HGB Conc 34 % (32-34); Mean Corpuscular Hemoglobin 31 pg (28-32); Mean Corpuscular Volume 91 fl (84-94); Monocytes # (Auto) 0.8 K/mm3 (0.0-0.8); Monocytes % (Auto) 7.6 % (0.0-7.3); Platelet Count 233 K/mm3 (140-440); Red Blood Count 3.82 M/mm3 (3.65-5.03); Red Cell Distribution Width 19.7 % (13.2-15.2)
[2018-01-01 01:08] LABS: INR 1.09 (0.87-1.13)
[2018-01-01 01:09] LABS: Partial Thromboplastin Time 32.6 Sec. (24.2-36.6)
[2018-01-01] MEDS ORDERED: ASPIRIN PO ONE (01:39)
--- NOTE | 2018-01-01 02:49 | History and Physical Report ---
History of Present Illness Date of examination: 01/01/18 History of present illness: 46-year-old man with a history of hypertension, diabetes, gout, [place], COPD, CHF comes to the emergency room complaining of shortness of breath, PND and orthopnea and lower extremity edema. He saw his red cap today sent him here to the emergency room for further evaluation. He states he gained 11 pounds in one week. Patient stated he is compliant with his medication, also complaining of left flank pain Review Of Systems: Constitutional: no fever, chills, weight loss Ears, eyes, nose, mouth and throat: no nasal congestion, no nasal discharge, no sinus pressure, blurry vision, diplopia Neck: No neck pain or rigidity. Cardiovascular: chest pain, palpitations Respiratory: No cough Gastrointestinal: abdominal pain, hematochezia Genitourinary : no dysuria, frequency , hematuria Musculoskeletal: no joint swelling or muscle ache Integumentary: no rash, no pruritis Neurological: no parathesias, focal weakness Endocrine: no cold or heat intolerance, no polyuria or polydipsia Hematologic/Lymphatic: no easy bruising, no easy bleeding, no gland swelling Allergic/Immunologic: no urticaria, no angioedema. PAST MEDICAL HISTORY:hypertension, diabetes, gout, BRITTON, COPD, CHF PAST SURGICAL HISTORY:AICD, hip replacement, gall bladder SOCIAL HISTORY: Denies alcohol, tobacco, drugs FAMILY HISTORY:cad, DM Medications and Allergies Allergies Allergy/AdvReac Type Severity Reaction Status Date / Time cephalexin monohydrate Allergy Hives Verified 08/01/17 08:21 [From Keflex] lidocaine Allergy Hives Verified 03/09/15 22:20 mushrooms Allergy Swelling Uncoded 06/26/15 12:23 Home Medications Medication Instructions Recorded Confirmed Last Taken Type Ferrous Sulfate [Feosol 325 MG tab] 325 mg PO BID 05/19/15 12/07/17 12/07/17 06: 30 History Magnesium Oxide 400 mg PO DAILY 08/31/16 12/07/17 12/07/17 06:30 History glipiZIDE [Glucotrol] 10 mg PO QDAY 03/16/17 12/07/17 12/07/17 06:30 History Carvedilol [Coreg] 25 mg PO BID #60 tablet 06/10/17 12/07/17 12/07/17 06:30 Rx Lisinopril [Zestril TAB] 2.5 mg PO QDAY #30 tablet 06/10/17 12/07/17 12/07/17 06 :30 Rx Insulin Glargine,Hum.rec.anlog 20 units SQ QHS #5 pen 07/09/17 12/07/17 Rx [Lantus Solostar] Isosorbide Dinitrate 10 mg PO Q8H #90 tablet 08/01/17 12/07/17 12/07/17 06:30 Rx Allopurinol 100 mg PO BID 09/05/17 12/07/17 12/07/17 06:30 History Potassium Chloride [K-Dur] 20 meq PO BID #30 tablet 09/08/17 12/07/17 12/07/17 06:30 Rx Digoxin 125 mcg PO DAILY 10/14/17 12/07/17 12/07/17 06:30 History Metolazone 5 mg PO QWEEK 10/14/17 12/07/17 1 Week Ago History ~11/30/17 hydrALAZINE [Apresoline TAB] 25 mg PO Q8HR 10/14/17 12/07/17 12/07/17 06:30 History Apixaban [Eliquis] 5 mg PO Q12HR #60 tablet 10/19/17 12/07/17 12/07/17 06:30 Rx Fluticasone [Flonase] 200 mcg NS QDAY #1 bottle 10/19/17 12/07/17 Unknown Rx Torsemide [Demadex] 100 mg PO QDAY #30 tablet 10/19/17 12/07/17 12/07/17 06:30 Rx oxyCODONE /ACETAMINOPHEN [Percocet 1 tab PO Q6H PRN #14 tablet 10/19/17 1 Month Ago Rx 5/325 mg] ~11/06/17 Aspirin EC [Aspirin Enteric Coated 325 mg PO QDAY 12/07/17 12/07/17 12/07/17 06: 30 History TAB] Spironolactone [Aldactone] 25 mg PO QDAY 12/07/17 12/07/17 12/07/17 06:30 History Active Meds: Active Medications Enoxaparin Sodium (Lovenox) 30 mg SUB-Q QDAY ROBERT Exam - Constitutional Vitals: Temp Pulse Resp BP Pulse Ox 98.7 F 64 18 104/49 97 01/01/18 00:12 01/01/18 01:36 01/01/18 01:36 01/01/18 01:40 01/01/18 01:40 Results - Labs CBC & Chem 7: 01/01/18 00:08 01/01/18 00:08 Labs: Abnormal lab results 01/01/18 01/01/18 01/01/18 Range/Units 00:08 00:08 00:15 Hct 34.8 L (35.5-45.6) % RDW 19.7 H (13.2-15.2) % [place] % (Auto) 7.6 H (0.0-7.3) % Seg Neutrophils % 71.6 H (40.0-70.0) % Seg Neutrophils # 7.8 H (1.8-7.7) K/mm3 Sodium 134 L (137-145) mmol/L Chloride 94.0 L (98-107) mmol/L Glucose 174 H (75-100) mg/dL NT-Pro-B Natriuret Pep 1271 H (0-450) pg/mL Albumin 3.8 L (3.9-5) g/dL Digoxin 0.4 L (0.9-2.0) ng/mL
[2018-01-01] MEDS ORDERED: SODIUM CHLORIDE FLUSH SYRINGE 10 ML IV PRN (03:41)
[2018-01-01] MEDS ORDERED: ZOFRAN IV PRN (03:41)
[2018-01-01] MEDS ORDERED: TYLENOL PO PRN (03:41)
[2018-01-01] MEDS ORDERED: MORPHINE IV PRN (03:41)
[2018-01-01 06:07] LABS: Creatine Kinase MB 1.8 ng/mL (0.0-4.0)
[2018-01-01] MEDS ORDERED: PERCOCET 5/325 PO PRN (06:15)
[2018-01-01] MEDS: FEOSOL PO SCH ×2 (09:38→22:24)
[2018-01-01] MEDS: ECOTRIN PO SCH (09:38)
[2018-01-01] MEDS: ZYLOPRIM PO SCH ×2 (09:38→22:26)
[2018-01-01] MEDS: ELIQUIS PO SCH ×2 (09:38→22:26)
[2018-01-01] MEDS: GLUCOTROL PO SCH (09:39)
[2018-01-01] MEDS: SODIUM CHLORIDE FLUSH SYRINGE 10 ML IV SCH ×2 (09:39→22:24)
[2018-01-01] MEDS: COREG PO SCH ×2 (09:40→22:26)
[2018-01-01] MEDS: ZESTRIL PO SCH (09:40)
--- NOTE | 2018-01-01 09:50 | Consultation ---
History of Present Illness Consult date: 01/01/18 Consult reason: chest pain History of present illness: This is a 47yr old male well known to our service. Patient has a long standing history of Nonischemic Cardiomyopathy and has an indwelling cardiac defibrillator. He has a history of atrial flutter and a month ago underwent a YARELY guided cardioversion. He is maintained on eliquis for oral anticoagulation. He has a history of VT/VF, prior pulmonary embolism, COPD, [place], HTN, severe Pulmonary Hypertension and obesity. Patient presents to this hospital with multiple complaints. Patient reports chest pain and shortness of breath associated with dizziness, nausea vomiting and headaches. He denies syncope. He denies AICD discharge. A chest xray reports no acute process. An EKG shows a AV paced rhythm. A cardiac consultation was requested for further management. Medications and Allergies Allergies Allergy/AdvReac Type Severity Reaction Status Date / Time cephalexin monohydrate Allergy Hives Verified 08/01/17 08:21 [From Keflex] lidocaine Allergy Hives Verified 03/09/15 22:20 mushrooms Allergy Swelling Uncoded 06/26/15 12:23 Home Medications Medication Instructions Recorded Confirmed Last Taken Type Ferrous Sulfate [Feosol 325 MG tab] 325 mg PO BID 05/19/15 12/07/17 12/07/17 06: 30 History Magnesium Oxide 400 mg PO DAILY 08/31/16 12/07/17 12/07/17 06:30 History glipiZIDE [Glucotrol] 10 mg PO QDAY 03/16/17 12/07/17 12/07/17 06:30 History Carvedilol [Coreg] 25 mg PO BID #60 tablet 06/10/17 12/07/17 12/07/17 06:30 Rx Lisinopril [Zestril TAB] 2.5 mg PO QDAY #30 tablet 06/10/17 12/07/17 12/07/17 06 :30 Rx Insulin Glargine,Hum.rec.anlog 20 units SQ QHS #5 pen 07/09/17 12/07/17 Rx [Lantus Solostar] Isosorbide Dinitrate 10 mg PO Q8H #90 tablet 08/01/17 12/07/17 12/07/17 06:30 Rx Allopurinol 100 mg PO BID 09/05/17 12/07/17 12/07/17 06:30 History Potassium Chloride [K-Dur] 20 meq PO BID #30 tablet 09/08/17 12/07/17 12/07/17 06:30 Rx Digoxin 125 mcg PO DAILY 10/14/17 12/07/17 12/07/17 06:30 History Metolazone 5 mg PO QWEEK 10/14/17 12/07/17 1 Week Ago History ~11/30/17 hydrALAZINE [Apresoline TAB] 25 mg PO Q8HR 10/14/17 12/07/17 12/07/17 06:30 History Apixaban [Eliquis] 5 mg PO Q12HR #60 tablet 10/19/17 12/07/17 12/07/17 06:30 Rx Fluticasone [Flonase] 200 mcg NS QDAY #1 bottle 10/19/17 12/07/17 Unknown Rx Torsemide [Demadex] 100 mg PO QDAY #30 tablet 10/19/17 12/07/17 12/07/17 06:30 Rx oxyCODONE /ACETAMINOPHEN [Percocet 1 tab PO Q6H PRN #14 tablet 10/19/17 1 Month Ago Rx 5/325 mg] ~11/06/17 Aspirin EC [Aspirin Enteric Coated 325 mg PO QDAY 12/07/17 12/07/17 12/07/17 06: 30 History TAB] Spironolactone [Aldactone] 25 mg PO QDAY 12/07/17 12/07/17 12/07/17 06:30 History Active Meds: Active Medications Acetaminophen (Tylenol) 650 mg PO Q4H PRN PRN Reason: Pain MILD(1-3)/Fever >100.5/KNIGHT Allopurinol (Zyloprim) 100 mg PO BID [facility] Last Admin: 01/01/18 09:38 Dose: 100 mg Apixaban (Eliquis) 5 mg PO Q12HR [facility]; Protocol Last Admin: 01/01/18 09:38 Dose: 5 mg Aspirin (Ecotrin) 325 mg PO QDAY [facility] Last Admin: 01/01/18 09:38 Dose: 325 mg Carvedilol (Coreg) 25 mg PO BID [facility] Last Admin: 01/01/18 09:40 Dose: Not Given Digoxin (Lanoxin) 0.125 mg PO DAILY@1700 [facility] Ferrous Sulfate (Feosol) 325 mg PO BID [facility] Last Admin: 01/01/18 09:38 Dose: 325 mg Glipizide (Glucotrol) 10 mg PO QDDIAB [facility] Last Admin: 01/01/18 09:39 Dose: 10 mg Hydralazine HCl (Apresoline) 25 mg PO Q8HR [facility] Insulin Glargine (Lantus) 20 units SUB-Q QHS [facility] Isosorbide Dinitrate (Isordil Titradose) 10 mg PO Q8H [facility] Lisinopril (Zestril) 2.5 mg PO QDAY [facility] Last Admin: 01/01/18 09:40 Dose: Not Given Metolazone (Zaroxolyn) 5 mg PO QWEEK [facility] Morphine Sulfate (Morphine) 2 mg IV Q4H PRN PRN Reason: Pain, Moderate (4-6) Ondansetron HCl (Zofran) 4 mg IV Q8H PRN PRN Reason: Nausea And Vomiting Oxycodone/Acetaminophen (Percocet 5/325) 1 tab PO Q6H PRN PRN Reason: Pain, Moderate (4-6) Sodium Chloride (Sodium Chloride Flush Syringe 10 Ml) 10 ml IV BID [facility] Last Admin: 01/01/18 09:39 Dose: 10 ml Sodium Chloride (Sodium Chloride Flush Syringe 10 Ml) 10 ml IV PRN PRN PRN Reason: LINE FLUSH Spironolactone (Aldactone) 25 mg PO QDAY [facility] Torsemide (Demadex) 100 mg PO QDAY [facility] Physical Examination Vital Signs Pulse Resp Pulse Ox 69 9 L 99 12/31/17 23:49 12/31/17 23:49 12/31/17 23:49 General appearance: no acute distress HEENT: Positive: PERRL Cardiac: Positive: Other (AV paced) Lungs: Positive: Decreased Breath Sounds Neuro: Positive: Grossly Intact Results 01/01/18 00:08 01/01/18 00:08 Cardiac Enzymes 01/01/18 01/01/18 Range/Units 00:08 04:55 AST 15 (5-40) units/L CK-MB (CK-2) 1.7 1.8 (0.0-4.0) ng/mL Coagulation 01/01/18 Range/Units 00:08 PT 14.7 (12.2-14.9) Sec. INR 1.09 (0.87-1.13) APTT 32.6 (24.2-36.6) Sec. CBC 01/01/18 Range/Units 00:08 WBC 10.9 (4.5-11.0) K/mm3 RBC 3.82 (3.65-5.03) M/mm3 Hgb 11.9 (11.8-15.2) gm/dl Hct 34.8 L (35.5-45.6) % Plt Count 233 (140-440) K/mm3 Lymph # 2.1 (1.2-5.4) K/mm3 [place] # 0.8 (0.0-0.8) K/mm3 Eos # 0.1 (0.0-0.4) K/mm3 Baso # 0.1 (0.0-0.1) K/mm3 Comprehensive Metabolic Panel 01/01/18 Range/Units 00:08 Sodium 134 L (137-145) mmol/L Potassium 4.3 (3.6-5.0) mmol/L Chloride 94.0 L (98-107) mmol/L Carbon Dioxide 25 (22-30) mmol/L BUN 18 (9-20) mg/dL Creatinine 1.4 (0.8-1.5) mg/dL Glucose 174 H (75-100) mg/dL Calcium 9.0 (8.4-10.2) mg/dL AST 15 (5-40) units/L ALT 13 (7-56) units/L Alkaline Phosphatase 78 (35-129) units/L Total Protein 7.0 (6.3-8.2) g/dL Albumin 3.8 L (3.9-5) g/dL Assessment and Plan Atypical chest pain Headaches Paroxysmal Afib underlying sinus rhythm s/p TTT/cardioversion 11/2017 on digoxin and coreg on eliquis for oral anticoagulation. 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
[2018-01-01] MEDS: ISORDIL TITRADOSE PO SCH ×4 (09:58→22:25)
[2018-01-01] MEDS: DEMADEX PO SCH (09:59)
[2018-01-01] MEDS ORDERED: ZAROXOLYN PO SCH (10:00)
[2018-01-01] MEDS ORDERED: LOVENOX SUB-Q SCH (10:00)
[2018-01-01] MEDS: ALDACTONE PO SCH (10:01)
[2018-01-01 11:11] LABS: Creatine Kinase MB 1.5 ng/mL (0.0-4.0)
--- NOTE | 2018-01-01 12:07 | Cat Scan Report ---
CT HEAD WITHOUT CONTRAST: HISTORY: Head trauma. TECHNIQUE: Sequential 2.5mm CT images. COMPARISON: 03/16/17. FINDINGS: Cerebral Parenchyma: Within normal limits. Cerebellum: Within normal limits. Brainstem: Within normal limits. Ventricles: Normal. Sella: Normal. Extra-axial spaces: Normal. Basal Cisterns: Normal. Intracranial Hemorrhage: None. Midline Shift: None. Calvarium: Normal. Sinuses: Normal. Mastoid Air Cells: Normal. Visualized Orbits: Normal. IMPRESSION: Cranial CT scan within normal limits. No significant change since 03/16/17.
[2018-01-01] MEDS: PROTONIX PO SCH (13:26)
[2018-01-01] MEDS: APRESOLINE PO SCH (15:33)
[2018-01-01] MEDS: LANOXIN PO SCH (17:59)
[2018-01-01] MEDS ORDERED: NON-FORMULARY (Insulin Glargine,Hum.Rec.Anlog [Lantus Solostar] 20 UNITS) SQ SCH (22:00)
[2018-01-01] MEDS: LANTUS SUB-Q SCH (22:27)
--- NOTE | 2018-01-01 23:20 | Event Note ---
Date: 01/01/18 Patient seen and examined, in no acute distress. continues on BIPAP which he states he uses at all times when lying down. still with shortness of breath. Will continue current treatment. He denies any head trauma, he reports migrane which is improving. Head CT negative. No evidence of mental status changes.
[2018-01-02] MEDS: APRESOLINE PO SCH ×4 (00:15→23:02)
[2018-01-02 05:57] LABS: Hemoglobin 11.7 gm/dl (11.8-15.2); Mean Corpuscular HGB Conc 33 % (32-34); Mean Corpuscular Hemoglobin 30 pg (28-32); Mean Corpuscular Volume 91 fl (84-94); Platelet Count 220 K/mm3 (140-440); Red Blood Count 3.85 M/mm3 (3.65-5.03); Red Cell Distribution Width 19.8 % (13.2-15.2)
[2018-01-02 06:19] LABS: Calcium 8.9 mg/dL (8.4-10.2)
[2018-01-02 07:08] LABS: Band Neutrophils # (Manual) 0.2 K/mm3; Basophils % (Manual) 0 % (0.0-1.8); Platelet Estimate Consistent w Auto; Total Cells Counted 100
[2018-01-02] MEDS: ISORDIL TITRADOSE PO SCH ×3 (08:29→23:01)
[2018-01-02] MEDS: GLUCOTROL PO SCH ×2 (08:30→12:15)
[2018-01-02] MEDS ORDERED: LEXISCAN IV ONE ×2 (08:49→08:52)
[2018-01-02] MEDS: SODIUM CHLORIDE FLUSH SYRINGE 10 ML IV SCH ×2 (10:00→23:01)
[2018-01-02] MEDS: FEOSOL PO SCH ×2 (11:28→23:01)
[2018-01-02] MEDS: ECOTRIN PO SCH (11:29)
[2018-01-02] MEDS: PROTONIX PO SCH (11:29)
[2018-01-02] MEDS: ZYLOPRIM PO SCH ×2 (11:29→23:02)
[2018-01-02] MEDS: ELIQUIS PO SCH (11:30)
[2018-01-02] MEDS: ZESTRIL PO SCH (11:35)
[2018-01-02] MEDS: DEMADEX PO SCH (12:30)
[2018-01-02] MEDS: COREG PO SCH ×2 (12:30→23:01)
[2018-01-02] MEDS: ALDACTONE PO SCH (12:30)
[2018-01-02] MEDS ORDERED: DILAUDID IV PRN (12:31)
--- NOTE | 2018-01-02 16:01 | Treadmill Report ---
INDICATION FOR THE PROCEDURE: Chest pain. FINDINGS: This is a poor quality scan limited by the patient's body habitus. There is evidence of patchy uptake noted both on the stress and rest images, cannot exclude moderate degree of ischemia in the inferior wall. The left ventricular cavity is severely dilated. The left ventricular ejection fraction is measured at 25%. CONCLUSION: 1. Poor quality scan limited by the patient's body habitus. 2. Moderately reversible inferior wall defect. Ischemia in the right coronary artery distribution cannot be excluded. 3. Severely dilated and hypokinetic left ventricle with an ejection fraction measured at 25%. JOB# [id number] EKATERINA/BEATA
--- NOTE | 2018-01-02 17:46 | Progress Note ---
Assessment and Plan Atypical chest pain MPI - severely dilated LV cavity, reversible inferior wall defect (cannot exclude ischemia) Headaches Paroxysmal Afib underlying sinus rhythm s/p TTT/cardioversion 11/2017 on digoxin and coreg on eliquis for oral anticoagulation. 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 No interval changes. No events on tele Objective Vital Signs Temp Pulse Pulse Resp BP BP Pulse Ox 01/02/18 16:45 97.9 F 70 22 114/69 99 01/02/18 11:55 97.8 F 38 L 20 119/33 97 01/02/18 10:00 80 01/02/18 09:01 70 104/57 01/02/18 09:00 74 109/54 01/02/18 08:59 72 140/54 01/02/18 08:58 73 111/55 01/02/18 08:57 74 99/68 01/02/18 08:56 70 115/68 01/02/18 08:46 71 112/67 01/02/18 07:35 98.4 F 70 24 100/37 97 01/02/18 06:14 68 101/52 01/02/18 04:20 98.2 F 68 20 101/52 98 01/02/18 00:15 75 114/56 01/01/18 23:41 98.1 F 68 20 106/43 97 01/01/18 23:38 71 90/37 96 01/01/18 22:26 75 114/56 01/01/18 22:25 75 114/56 01/01/18 21:31 98 01/01/18 21:03 75 20 97 01/01/18 19:59 81 01/01/18 19:55 98.1 F 75 20 114/56 97 01/01/18 17:59 51 L 128/38 01/01/18 17:53 51 L 128/38 98 - Physical Examination HEENT: Positive: PERRL Neck: Positive: neck supple Cardiac: Positive: Reg Rate and Rhythm Lungs: Positive: Normal Exam Neuro: Positive: Grossly Intact - Labs and Meds CBC 01/02/18 Range/Units 05:01 WBC 11.2 H (4.5-11.0) K/mm3 RBC 3.85 (3.65-5.03) M/mm3 Hgb 11.7 L (11.8-15.2) gm/dl Hct 35.0 L (35.5-45.6) % Plt Count 220 (140-440) K/mm3 Comprehensive Metabolic Panel 01/02/18 Range/Units 05:01 Sodium 136 L (137-145) mmol/L Potassium 3.7 (3.6-5.0) mmol/L Chloride 94.7 L (98-107) mmol/L Carbon Dioxide 28 (22-30) mmol/L BUN 18 (9-20) mg/dL Creatinine 1.5 (0.8-1.5) mg/dL Glucose 126 H (75-100) mg/dL Calcium 8.9 (8.4-10.2) mg/dL
[2018-01-02] MEDS: LANOXIN PO SCH (18:15)
[2018-01-02] MEDS: HumaLOG SUB-Q SCH ×2 (18:41→23:00)
--- NOTE | 2018-01-02 22:31 | Progress Note ---
Hospitalist Physical - Constitutional Vitals: Temp Pulse Resp BP Pulse Ox 98.5 F 70 20 112/56 99 01/02/18 19:29 01/02/18 19:29 01/02/18 19:29 01/02/18 19:29 01/02/18 19:29 General appearance: Present: no acute distress Results - Labs CBC & Chem 7: 01/02/18 05:01 01/02/18 05:01 Labs: Laboratory Last Values WBC 11.2 K/mm3 (4.5-11.0) H 01/02/18 05:01 RBC 3.85 M/mm3 (3.65-5.03) 01/02/18 05:01 Hgb 11.7 gm/dl (11.8-15.2) L 01/02/18 05:01 Hct 35.0 % (35.5-45.6) L 01/02/18 05:01 MCV 91 fl (84-94) 01/02/18 05:01 MCH 30 pg (28-32) 01/02/18 05:01 MCHC 33 % (32-34) 01/02/18 05:01 RDW 19.8 % (13.2-15.2) H 01/02/18 05:01 Plt Count 220 K/mm3 (140-440) 01/02/18 05:01 Lymph % (Auto) 19.0 % (13.4-35.0) 01/01/18 00:08 [place] % (Auto) 7.6 % (0.0-7.3) H 01/01/18 00:08 Eos % (Auto) 1.1 % (0.0-4.3) 01/01/18 00:08 Baso % (Auto) 0.7 % (0.0-1.8) 01/01/18 00:08 Lymph # 2.1 K/mm3 (1.2-5.4) 01/01/18 00:08 [place] # 0.8 K/mm3 (0.0-0.8) 01/01/18 00:08 Eos # 0.1 K/mm3 (0.0-0.4) 01/01/18 00:08 Baso # 0.1 K/mm3 (0.0-0.1) 01/01/18 00:08 Add Manual Diff Complete 01/02/18 05:01 Total Counted 100 01/02/18 05:01 Seg Neutrophils % 71.6 % (40.0-70.0) H 01/01/18 00:08 Seg Neuts % (Manual) 69.0 % (40.0-70.0) 01/02/18 05:01 Band Neutrophils % 2.0 % 01/02/18 05:01 Lymphocytes % (Manual) 21.0 % (13.4-35.0) 01/02/18 05:01 Reactive Lymphs % (Man) 0 % 01/02/18 05:01 Monocytes % (Manual) 6.0 % (0.0-7.3) 01/02/18 05:01 Eosinophils % (Manual) 2.0 % (0.0-4.3) 01/02/18 05:01 Basophils % (Manual) 0 % (0.0-1.8) 01/02/18 05:01 Metamyelocytes % 0 % 01/02/18 05:01 Myelocytes % 0 % 01/02/18 05:01 Promyelocytes % 0 % 01/02/18 05:01 Blast Cells % 0 % 01/02/18 05:01 Nucleated RBC % Not Reportable 01/02/18 05:01 Seg Neutrophils # 7.8 K/mm3 (1.8-7.7) H 01/01/18 00:08 Seg Neutrophils # Man 7.7 K/mm3 (1.8-7.7) 01/02/18 05:01 Band Neutrophils # 0.2 K/mm3 01/02/18 05:01 Lymphocytes # (Manual) 2.4 K/mm3 (1.2-5.4) 01/02/18 05:01 Abs React Lymphs (Man) 0.0 K/mm3 01/02/18 05:01 Monocytes # (Manual) 0.7 K/mm3 (0.0-0.8) 01/02/18 05:01 Eosinophils # (Manual) 0.2 K/mm3 (0.0-0.4) 01/02/18 05:01 Basophils # (Manual) 0.0 K/mm3 (0.0-0.1) 01/02/18 05:01 Metamyelocytes # 0.0 K/mm3 01/02/18 05:01 Myelocytes # 0.0 K/mm3 01/02/18 05:01 Promyelocytes # 0.0 K/mm3 01/02/18 05:01 Blast Cells # 0.0 K/mm3 01/02/18 05:01 WBC Morphology Not Reportable 01/02/18 05:01 Hypersegmented Neuts Not Reportable 01/02/18 05:01 Hyposegmented Neuts Not Reportable 01/02/18 05:01 Hypogranular Neuts Not Reportable 01/02/18 05:01 Smudge Cells Not Reportable 01/02/18 05:01 Toxic Granulation Not Reportable 01/02/18 05:01 Toxic Vacuolation Not Reportable 01/02/18 05:01 Dohle Bodies Not Reportable 01/02/18 05:01 [place]-Huet Anomaly Not Reportable 01/02/18 05:01 Kanika Rods Not Reportable 01/02/18 05:01 Platelet Estimate Consistent w auto 01/02/18 05:01 Clumped Platelets Not Reportable 01/02/18 05:01 Plt Clumps, EDTA Not Reportable 01/02/18 05:01 Large Platelets Not Reportable 01/02/18 05:01 Giant Platelets Not Reportable 01/02/18 05:01 Platelet Satelliting Not Reportable 01/02/18 05:01 Plt Morphology Comment Not Reportable 01/02/18 05:01 RBC Morphology Not Reportable 01/02/18 05:01 Dimorphic RBCs Not Reportable 01/02/18 05:01 Polychromasia Not Reportable 01/02/18 05:01 Hypochromasia Not Reportable 01/02/18 05:01 Poikilocytosis Not Reportable 01/02/18 05:01 Anisocytosis Not Reportable 01/02/18 05:01 Microcytosis Not Reportable 01/02/18 05:01 Macrocytosis Not Reportable 01/02/18 05:01 Spherocytes Not Reportable 01/02/18 05:01 Pappenheimer Bodies Not Reportable 01/02/18 05:01 Sickle Cells Not Reportable 01/02/18 05:01 Target Cells Not Reportable 01/02/18 05:01 Tear Drop Cells Not Reportable 01/02/18 05:01 Ovalocytes Not Reportable 01/02/18 05:01 Helmet Cells Not Reportable 01/02/18 05:01 [place] Bodies Not Reportable 01/02/18 05:01 [place] Rings Not Reportable 01/02/18 05:01 [place] Cells Not Reportable 01/02/18 05:01 Bite Cells Not Reportable 01/02/18 05:01 Crenated Cell Not Reportable 01/02/18 05:01 Elliptocytes Not Reportable 01/02/18 05:01 Acanthocytes (Spur) Not Reportable 01/02/18 05:01 Rouleaux Not Reportable 01/02/18 05:01 Hemoglobin C Crystals Not Reportable 01/02/18 05:01 Schistocytes Not Reportable 01/02/18 05:01 Malaria parasites Not Reportable 01/02/18 05:01 [place] Bodies Not Reportable 01/02/18 05:01 Hem Pathologist Commnt No 01/02/18 05:01 PT 14.7 Sec. (12.2-14.9) 01/01/18 00:08 INR 1.09 (0.87-1.13) 01/01/18 00:08 APTT 32.6 Sec. (24.2-36.6) 01/01/18 00:08 D-Dimer < 135 ng/mlDDU (0-234) 01/01/18 00:08 Sodium 136 mmol/L (137-145) L 01/02/18 05:01 Potassium 3.7 mmol/L (3.6-5.0) 01/02/18 05:01 Chloride 94.7 mmol/L (98-107) L 01/02/18 05:01 Carbon Dioxide 28 mmol/L (22-30) 01/02/18 05:01 Anion Gap 17 mmol/L 01/02/18 05:01 BUN 18 mg/dL (9-20) 01/02/18 05:01 Creatinine 1.5 mg/dL (0.8-1.5) 01/02/18 05:01 Estimated GFR 50 ml/min 01/02/18 05:01 BUN/Creatinine Ratio 12 % 01/02/18 05:01 Glucose 126 mg/dL (75-100) H 01/02/18 05:01 POC Glucose 190 (70-105) H 01/02/18 21:24 Calcium 8.9 mg/dL (8.4-10.2) 01/02/18 05:01 Magnesium 2.10 mg/dL (1.7-2.3) 01/02/18 05:01 Total Bilirubin 0.70 mg/dL (0.1-1.2) 01/01/18 00:08 AST 15 units/L (5-40) 01/01/18 00:08 ALT 13 units/L (7-56) 01/01/18 00:08 Alkaline Phosphatase 78 units/L (35-129) 01/01/18 00:08 Total Creatine Kinase 82 units/L (55-170) 01/01/18 10:27 CK-MB (CK-2) 1.5 ng/mL (0.0-4.0) 01/01/18 10:27 CK-MB (CK-2) Rel Index 1.8 (0-4) 01/01/18 10:27 Troponin T < 0.010 ng/mL (0.00-0.029) 01/01/18 10:27 NT-Pro-B Natriuret Pep 1271 pg/mL (0-450) H 01/01/18 00:08 Total Protein 7.0 g/dL (6.3-8.2) 01/01/18 00:08 Albumin 3.8 g/dL (3.9-5) L 01/01/18 00:08 Albumin/Globulin Ratio 1.2 % 01/01/18 00:08 Digoxin 0.4 ng/mL (0.9-2.0) L 01/01/18 00:15
[2018-01-02] MEDS: LANTUS SUB-Q SCH (23:00)
[2018-01-03] MEDS: APRESOLINE PO SCH ×3 (07:11→21:59)
[2018-01-03] MEDS: HumaLOG SUB-Q SCH ×4 (07:57→22:01)
[2018-01-03] MEDS: ISORDIL TITRADOSE PO SCH ×2 (08:58→15:58)
[2018-01-03] MEDS: GLUCOTROL PO SCH (08:58)
[2018-01-03] MEDS: ZYLOPRIM PO SCH ×2 (09:57→22:00)
--- NOTE | 2018-01-03 10:49 | Progress Note ---
Assessment and Plan Assessment and plan: 46-year-old man with a history of hypertension, diabetes, gout, BRITTON, COPD, CHF comes to the emergency room complaining of shortness of breath, PND and orthopnea and lower extremity edema. He saw his tube drawing supervisor today sent him here to the emergency room for further evaluation. He states he gained 11 pounds in one week. 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 no new complaints of headache. NO Chest pain, nausea, vomiting. some shortness of breath but chronic Hospitalist Physical - Constitutional Vitals: Temp Pulse Resp BP Pulse Ox 98.0 F 68 20 116/71 96 01/03/18 03:55 01/03/18 03:55 01/03/18 03:55 01/03/18 07:11 01/03/18 03:55 General appearance: Present: no acute distress, well-nourished, obese (morbid) - EENT Eyes: Present: PERRL, EOM intact ENT: hearing intact - Neck Neck: Present: supple, normal ROM - Respiratory Respiratory effort: normal Respiratory: bilateral: diminished - Cardiovascular Rhythm: regular Heart Sounds: Present: S1 & S2. Absent: systolic murmur - Extremities Extremities: no ischemia, pulses intact, No edema, normal temperature - Abdominal General gastrointestinal: soft, non-tender, non-distended, normal bowel sounds - Integumentary Integumentary: Present: clear, warm, dry - Psychiatric Psychiatric: appropriate mood/affect, intact judgment & insight - Neurologic Neurologic: CNII-XII intact, moves all extremities - Allied Health Allied health notes reviewed: nursing Results - Labs CBC & Chem 7: 01/02/18 05:01 01/02/18 05:01 Labs: Laboratory Last Values WBC 11.2 K/mm3 (4.5-11.0) H 01/02/18 05:01 RBC 3.85 M/mm3 (3.65-5.03) 01/02/18 05:01 Hgb 11.7 gm/dl (11.8-15.2) L 01/02/18 05:01 Hct 35.0 % (35.5-45.6) L 01/02/18 05:01 MCV 91 fl (84-94) 01/02/18 05:01 MCH 30 pg (28-32) 01/02/18 05:01 MCHC 33 % (32-34) 01/02/18 05:01 RDW 19.8 % (13.2-15.2) H 01/02/18 05:01 Plt Count 220 K/mm3 (140-440) 01/02/18 05:01 Lymph % (Auto) 19.0 % (13.4-35.0) 01/01/18 00:08 [place] % (Auto) 7.6 % (0.0-7.3) H 01/01/18 00:08 Eos % (Auto) 1.1 % (0.0-4.3) 01/01/18 00:08 Baso % (Auto) 0.7 % (0.0-1.8) 01/01/18 00:08 Lymph # 2.1 K/mm3 (1.2-5.4) 01/01/18 00:08 [place] # 0.8 K/mm3 (0.0-0.8) 01/01/18 00:08 Eos # 0.1 K/mm3 (0.0-0.4) 01/01/18 00:08 Baso # 0.1 K/mm3 (0.0-0.1) 01/01/18 00:08 Add Manual Diff Complete 01/02/18 05:01 Total Counted 100 01/02/18 05:01 Seg Neutrophils % 71.6 % (40.0-70.0) H 01/01/18 00:08 Seg Neuts % (Manual) 69.0 % (40.0-70.0) 01/02/18 05:01 Band Neutrophils % 2.0 % 01/02/18 05:01 Lymphocytes % (Manual) 21.0 % (13.4-35.0) 01/02/18 05:01 Reactive Lymphs % (Man) 0 % 01/02/18 05:01 Monocytes % (Manual) 6.0 % (0.0-7.3) 01/02/18 05:01 Eosinophils % (Manual) 2.0 % (0.0-4.3) 01/02/18 05:01 Basophils % (Manual) 0 % (0.0-1.8) 01/02/18 05:01 Metamyelocytes % 0 % 01/02/18 05:01 Myelocytes % 0 % 01/02/18 05:01 Promyelocytes % 0 % 01/02/18 05:01 Blast Cells % 0 % 01/02/18 05:01 Nucleated RBC % Not Reportable 01/02/18 05:01 Seg Neutrophils # 7.8 K/mm3 (1.8-7.7) H 01/01/18 00:08 Seg Neutrophils # Man 7.7 K/mm3 (1.8-7.7) 01/02/18 05:01 Band Neutrophils # 0.2 K/mm3 01/02/18 05:01 Lymphocytes # (Manual) 2.4 K/mm3 (1.2-5.4) 01/02/18 05:01 Abs React Lymphs (Man) 0.0 K/mm3 01/02/18 05:01 Monocytes # (Manual) 0.7 K/mm3 (0.0-0.8) 01/02/18 05:01 Eosinophils # (Manual) 0.2 K/mm3 (0.0-0.4) 01/02/18 05:01 Basophils # (Manual) 0.0 K/mm3 (0.0-0.1) 01/02/18 05:01 Metamyelocytes # 0.0 K/mm3 01/02/18 05:01 Myelocytes # 0.0 K/mm3 01/02/18 05:01 Promyelocytes # 0.0 K/mm3 01/02/18 05:01 Blast Cells # 0.0 K/mm3 01/02/18 05:01 WBC Morphology Not Reportable 01/02/18 05:01 Hypersegmented Neuts Not Reportable 01/02/18 05:01 Hyposegmented Neuts Not Reportable 01/02/18 05:01 Hypogranular Neuts Not Reportable 01/02/18 05:01 Smudge Cells Not Reportable 01/02/18 05:01 Toxic Granulation Not Reportable 01/02/18 05:01 Toxic Vacuolation Not Reportable 01/02/18 05:01 Dohle Bodies Not Reportable 01/02/18 05:01 Pelger-Huet Anomaly Not Reportable 01/02/18 05:01 Kanika Rods Not Reportable 01/02/18 05:01 Platelet Estimate Consistent w auto 01/02/18 05:01 Clumped Platelets Not Reportable 01/02/18 05:01 Plt Clumps, EDTA Not Reportable 01/02/18 05:01 Large Platelets Not Reportable 01/02/18 05:01 Giant Platelets Not Reportable 01/02/18 05:01 Platelet Satelliting Not Reportable 01/02/18 05:01 Plt Morphology Comment Not Reportable 01/02/18 05:01 RBC Morphology Not Reportable 01/02/18 05:01 Dimorphic RBCs Not Reportable 01/02/18 05:01 Polychromasia Not Reportable 01/02/18 05:01 Hypochromasia Not Reportable 01/02/18 05:01 Poikilocytosis Not Reportable 01/02/18 05:01 Anisocytosis Not Reportable 01/02/18 05:01 Microcytosis Not Reportable 01/02/18 05:01 Macrocytosis Not Reportable 01/02/18 05:01 Spherocytes Not Reportable 01/02/18 05:01 Pappenheimer Bodies Not Reportable 01/02/18 05:01 Sickle Cells Not Reportable 01/02/18 05:01 Target Cells Not Reportable 01/02/18 05:01 Tear Drop Cells Not Reportable 01/02/18 05:01 Ovalocytes Not Reportable 01/02/18 05:01 Helmet Cells Not Reportable 01/02/18 05:01 [place] Bodies Not Reportable 01/02/18 05:01 [place] Rings Not Reportable 01/02/18 05:01 [place] Cells Not Reportable 01/02/18 05:01 Bite Cells Not Reportable 01/02/18 05:01 Crenated Cell Not Reportable 01/02/18 05:01 Elliptocytes Not Reportable 01/02/18 05:01 Acanthocytes (Spur) Not Reportable 01/02/18 05:01 Rouleaux Not Reportable 01/02/18 05:01 Hemoglobin C Crystals Not Reportable 01/02/18 05:01 Schistocytes Not Reportable 01/02/18 05:01 Malaria parasites Not Reportable 01/02/18 05:01 [place] Bodies Not Reportable 01/02/18 05:01 Hem Pathologist Commnt No 01/02/18 05:01 PT 14.7 Sec. (12.2-14.9) 01/01/18 00:08 INR 1.09 (0.87-1.13) 01/01/18 00:08 APTT 32.6 Sec. (24.2-36.6) 01/01/18 00:08 D-Dimer < 135 ng/mlDDU (0-234) 01/01/18 00:08 Sodium 136 mmol/L (137-145) L 01/02/18 05:01 Potassium 3.7 mmol/L (3.6-5.0) 01/02/18 05:01 Chloride 94.7 mmol/L (98-107) L 01/02/18 05:01 Carbon Dioxide 28 mmol/L (22-30) 01/02/18 05:01 Anion Gap 17 mmol/L 01/02/18 05:01 BUN 18 mg/dL (9-20) 01/02/18 05:01 Creatinine 1.5 mg/dL (0.8-1.5) 01/02/18 05:01 Estimated GFR 50 ml/min 01/02/18 05:01 BUN/Creatinine Ratio 12 % 01/02/18 05:01 Glucose 126 mg/dL (75-100) H 01/02/18 05:01 POC Glucose 145 (70-105) H 01/03/18 05:53 Calcium 8.9 mg/dL (8.4-10.2) 01/02/18 05:01 Magnesium 2.10 mg/dL (1.7-2.3) 01/02/18 05:01 Total Bilirubin 0.70 mg/dL (0.1-1.2) 01/01/18 00:08 AST 15 units/L (5-40) 01/01/18 00:08 ALT 13 units/L (7-56) 01/01/18 00:08 Alkaline Phosphatase 78 units/L (35-129) 01/01/18 00:08 Total Creatine Kinase 82 units/L (55-170) 01/01/18 10:27 CK-MB (CK-2) 1.5 ng/mL (0.0-4.0) 01/01/18 10:27 CK-MB (CK-2) Rel Index 1.8 (0-4) 01/01/18 10: Troponin T < 0.010 ng/mL (0.00-0.029) 01/01/18 10: NT-Pro-B Natriuret Pep 1271 pg/mL (0-450) H 01/01/18 00:08 Total Protein 7.0 g/dL (6.3-8.2) 01/01/18 00:08 Albumin 3.8 g/dL (3.9-5) L 01/01/18 00:08 Albumin/Globulin Ratio 1.2 % 01/01/18 00:08 Digoxin 0.4 ng/mL (0.9-2.0) L 01/01/18 00:15
--- NOTE | 2018-01-03 10:50 | Progress Note ---
Assessment and Plan Assessment and plan: 46-year-old man with a history of hypertension, diabetes, gout, BRITTON, COPD, CHF comes to the emergency room complaining of shortness of breath, PND and orthopnea and lower extremity edema. He saw his paratransit operator today sent him here to the emergency room for further evaluation. He states he gained 11 pounds in one week. Patient stated he is compliant with his medication, also complaining of left flank pain Atypical chest pain MPI - severely dilated LV cavity, reversible inferior wall defect (cannot exclude ischemia) Headaches Paroxysmal Afib underlying sinus rhythm s/p TTT/cardioversion 11/2017 on digoxin and coreg on eliquis for oral anticoagulation. 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 Resting comfortably, reports improvement with migraine headache. Hospitalist Physical - Physical exam Narrative exam: VITAL SIGNS: Reviewed. GENERAL: The patient appeared well nourished and normally developed. Morbidly obese. Vital signs as documented. HEAD: No signs of head trauma. EYES: Pupils are equal. Extraocular motions intact. EARS: Hearing grossly intact. MOUTH: Oropharynx is normal. NECK: No adenopathy, no JVD. CHEST: Chest with diminished breath sounds bilaterally. No wheezes, rales, or rhonchi. CARDIAC: Regular rate and rhythm. S1 and S2, without murmurs, gallops, or rubs. VASCULAR: No Edema. Peripheral pulses normal and equal in all extremities. ABDOMEN: Soft, without detectable tenderness. No sign of distention. No rebound or guarding, and no masses palpated. Bowel Sounds normal. MUSCULOSKELETAL: Good range of motion of all major joints. Extremities without clubbing, cyanosis or edema. NEUROLOGIC EXAM: Alert and oriented x 3. No focal sensory or strength deficits. Speech normal. Follows commands. PSYCHIATRIC: Mood normal. SKIN: Multiple skin tattoos - Constitutional Vitals: Temp Pulse Resp BP Pulse Ox 98.0 F 68 20 116/71 96 01/03/18 03:55 01/03/18 03:55 01/03/18 03:55 01/03/18 07:11 01/03/18 03:55 General appearance: Present: no acute distress Results - Labs CBC & Chem 7: 01/02/18 05:01 01/02/18 05:01 Labs: Laboratory Last Values WBC 11.2 K/mm3 (4.5-11.0) H 01/02/18 05:01 RBC 3.85 M/mm3 (3.65-5.03) 01/02/18 05:01 Hgb 11.7 gm/dl (11.8-15.2) L 01/02/18 05:01 Hct 35.0 % (35.5-45.6) L 01/02/18 05:01 MCV 91 fl (84-94) 01/02/18 05:01 MCH 30 pg (28-32) 01/02/18 05:01 MCHC 33 % (32-34) 01/02/18 05:01 RDW 19.8 % (13.2-15.2) H 01/02/18 05:01 Plt Count 220 K/mm3 (140-440) 01/02/18 05:01 Lymph % (Auto) 19.0 % (13.4-35.0) 01/01/18 00:08 [place] % (Auto) 7.6 % (0.0-7.3) H 01/01/18 00:08 Eos % (Auto) 1.1 % (0.0-4.3) 01/01/18 00:08 Baso % (Auto) 0.7 % (0.0-1.8) 01/01/18 00:08 Lymph # 2.1 K/mm3 (1.2-5.4) 01/01/18 00:08 [place] # 0.8 K/mm3 (0.0-0.8) 01/01/18 00:08 Eos # 0.1 K/mm3 (0.0-0.4) 01/01/18 00:08 Baso # 0.1 K/mm3 (0.0-0.1) 01/01/18 00:08 Add Manual Diff Complete 01/02/18 05:01 Total Counted 100 01/02/18 05:01 Seg Neutrophils % 71.6 % (40.0-70.0) H 01/01/18 00:08 Seg Neuts % (Manual) 69.0 % (40.0-70.0) 01/02/18 05:01 Band Neutrophils % 2.0 % 01/02/18 05:01 Lymphocytes % (Manual) 21.0 % (13.4-35.0) 01/02/18 05:01 Reactive Lymphs % (Man) 0 % 01/02/18 05:01 Monocytes % (Manual) 6.0 % (0.0-7.3) 01/02/18 05:01 Eosinophils % (Manual) 2.0 % (0.0-4.3) 01/02/18 05:01 Basophils % (Manual) 0 % (0.0-1.8) 01/02/18 05:01 Metamyelocytes % 0 % 01/02/18 05:01 Myelocytes % 0 % 01/02/18 05:01 Promyelocytes % 0 % 01/02/18 05:01 Blast Cells % 0 % 01/02/18 05:01 Nucleated RBC % Not Reportable 01/02/18 05:01 Seg Neutrophils # 7.8 K/mm3 (1.8-7.7) H 01/01/18 00:08 Seg Neutrophils # Man 7.7 K/mm3 (1.8-7.7) 01/02/18 05:01 Band Neutrophils # 0.2 K/mm3 01/02/18 05:01 Lymphocytes # (Manual) 2.4 K/mm3 (1.2-5.4) 01/02/18 05:01 Abs React Lymphs (Man) 0.0 K/mm3 01/02/18 05:01 Monocytes # (Manual) 0.7 K/mm3 (0.0-0.8) 01/02/18 05:01 Eosinophils # (Manual) 0.2 K/mm3 (0.0-0.4) 01/02/18 05:01 Basophils # (Manual) 0.0 K/mm3 (0.0-0.1) 01/02/18 05:01 Metamyelocytes # 0.0 K/mm3 01/02/18 05:01 Myelocytes # 0.0 K/mm3 01/02/18 05:01 Promyelocytes # 0.0 K/mm3 01/02/18 05:01 Blast Cells # 0.0 K/mm3 01/02/18 05:01 WBC Morphology Not Reportable 01/02/18 05:01 Hypersegmented Neuts Not Reportable 01/02/18 05:01 Hyposegmented Neuts Not Reportable 01/02/18 05:01 Hypogranular Neuts Not Reportable 01/02/18 05:01 Smudge Cells Not Reportable 01/02/18 05:01 Toxic Granulation Not Reportable 01/02/18 05:01 Toxic Vacuolation Not Reportable 01/02/18 05:01 Dohle Bodies Not Reportable 01/02/18 05:01 [place]-Huet Anomaly Not Reportable 01/02/18 05:01 Kanika Rods Not Reportable 01/02/18 05:01 Platelet Estimate Consistent w auto 01/02/18 05:01 Clumped Platelets Not Reportable 01/02/18 05:01 Plt Clumps, EDTA Not Reportable 01/02/18 05:01 Large Platelets Not Reportable 01/02/18 05:01 Giant Platelets Not Reportable 01/02/18 05:01 Platelet Satelliting Not Reportable 01/02/18 05:01 Plt Morphology Comment Not Reportable 01/02/18 05:01 RBC Morphology Not Reportable 01/02/18 05:01 Dimorphic RBCs Not Reportable 01/02/18 05:01 Polychromasia Not Reportable 01/02/18 05:01 Hypochromasia Not Reportable 01/02/18 05:01 Poikilocytosis Not Reportable 01/02/18 05:01 Anisocytosis Not Reportable 01/02/18 05:01 Microcytosis Not Reportable 01/02/18 05:01 Macrocytosis Not Reportable 01/02/18 05:01 Spherocytes Not Reportable 01/02/18 05:01 Pappenheimer Bodies Not Reportable 01/02/18 05:01 Sickle Cells Not Reportable 01/02/18 05:01 [place] Cells Not Reportable 01/02/18 05:01 Tear Drop Cells Not Reportable 01/02/18 05:01 Ovalocytes Not Reportable 01/02/18 05:01 Helmet Cells Not Reportable 01/02/18 05:01 [place] Bodies Not Reportable 01/02/18 05:01 [place] Rings Not Reportable 01/02/18 05:01 [place] Cells Not Reportable 01/02/18 05:01 Bite Cells Not Reportable 01/02/18 05:01 Crenated Cell Not Reportable 01/02/18 05:01 Elliptocytes Not Reportable 01/02/18 05:01 Acanthocytes (Spur) Not Reportable 01/02/18 05:01 Rouleaux Not Reportable 01/02/18 05:01 Hemoglobin C Crystals Not Reportable 01/02/18 05:01 Schistocytes Not Reportable 01/02/18 05:01 [place] parasites Not Reportable 01/02/18 05:01 [place] Bodies Not Reportable 01/02/18 05:01 Hem Pathologist Commnt No 01/02/18 05:01 PT 14.7 Sec. (12.2-14.9) 01/01/18 00:08 INR 1.09 (0.87-1.13) 01/01/18 00:08 APTT 32.6 Sec. (24.2-36.6) 01/01/18 00:08 D-Dimer < 135 ng/mlDDU (0-234) 01/01/18 00:08 Sodium 136 mmol/L (137-145) L 01/02/18 05:01 Potassium 3.7 mmol/L (3.6-5.0) 01/02/18 05:01 Chloride 94.7 mmol/L (98-107) L 01/02/18 05:01 Carbon Dioxide 28 mmol/L (22-30) 01/02/18 05:01 Anion Gap 17 mmol/L 01/02/18 05:01 BUN 18 mg/dL (9-20) 01/02/18 05:01 Creatinine 1.5 mg/dL (0.8-1.5) 01/02/18 05:01 Estimated GFR 50 ml/min 01/02/18 05:01 BUN/Creatinine Ratio 12 % 01/02/18 05:01 Glucose 126 mg/dL (75-100) H 01/02/18 05:01 POC Glucose 145 (70-105) H 01/03/18 05:53 Calcium 8.9 mg/dL (8.4-10.2) 01/02/18 05:01 Magnesium 2.10 mg/dL (1.7-2.3) 01/02/18 05:01 Total Bilirubin 0.70 mg/dL (0.1-1.2) 01/01/18 00:08 AST 15 units/L (5-40) 01/01/18 00:08 ALT 13 units/L (7-56) 01/01/18 00:08 Alkaline Phosphatase 78 units/L (35-129) 01/01/18 00:08 Total Creatine Kinase 82 units/L (55-170) 01/01/18 10:27 CK-MB (CK-2) 1.5 ng/mL (0.0-4.0) 01/01/18 10:27 CK-MB (CK-2) Rel Index 1.8 (0-4) 01/01/18 10:27 Troponin T < 0.010 ng/mL (0.00-0.029) 01/01/18 10:27 NT-Pro-B Natriuret Pep 1271 pg/mL (0-450) H 01/01/18 00:08 Total Protein 7.0 g/dL (6.3-8.2) 01/01/18 00:08 Albumin 3.8 g/dL (3.9-5) L 01/01/18 00:08 Albumin/Globulin Ratio 1.2 % 01/01/18 00:08 Digoxin 0.4 ng/mL (0.9-2.0) L 01/01/18 00:15
[2018-01-03] MEDS: ZESTRIL PO SCH (10:59)
[2018-01-03] MEDS: ALDACTONE PO SCH (10:59)
[2018-01-03] MEDS: PROTONIX PO SCH (11:00)
[2018-01-03] MEDS: DEMADEX PO SCH (11:00)
[2018-01-03] MEDS: COREG PO SCH ×2 (11:00→22:00)
[2018-01-03] MEDS: ECOTRIN PO SCH (11:00)
[2018-01-03] MEDS: FEOSOL PO SCH ×2 (11:01→21:59)
[2018-01-03] MEDS: SODIUM CHLORIDE FLUSH SYRINGE 10 ML IV SCH ×2 (11:01→22:00)
[2018-01-03] MEDS: LANOXIN PO SCH (15:59)
[2018-01-03] MEDS: LANTUS SUB-Q SCH (22:00)
--- NOTE | 2018-01-03 23:30 | Progress Note ---
Assessment and Plan Assessment and plan: 46-year-old man with a history of hypertension, diabetes, gout, BRITTON, COPD, CHF comes to the emergency room complaining of shortness of breath, PND and orthopnea and lower extremity edema. He saw his blower operator today sent him here to the emergency room for further evaluation. He states he gained 11 pounds in one week. Patient stated he is compliant with his medication, also complaining of left flank pain Atypical Chest pain Migrain headache COPD with mild acute exacerbation DM with hyperglycemia Morbid obesity HTN CAD Dialated nonischemic cardimyopathy ef 10-15% severe pulmonary htn BRITTON ORTHOTIST OR PROSTHETIST-ICD ON MEDTRONIC HX OF VT/VF plan Supportive care pain control, bp Control with coreg, digoxin Continue Eliquis Patient for stress test Continue insulin control weightloss advised DVT/GI PROPHY Plan discussed in detail with the patient History Interval history: Patient seen and examined in no acute distress. no new complaints of headache Hospitalist Physical - Constitutional Vitals: Temp Pulse Resp BP Pulse Ox 97.4 F L 77 20 114/59 99 01/03/18 19:05 01/03/18 19:05 01/03/18 19:05 01/03/18 19:05 01/03/18 22:00 General appearance: Present: no acute distress, obese (morbid) - EENT Eyes: Present: PERRL, EOM intact ENT: hearing intact, clear oral mucosa, dentition normal - Neck Neck: Present: supple - Respiratory Respiratory effort: normal Respiratory: bilateral: diminished - Cardiovascular Rhythm: regular Heart Sounds: Absent: systolic murmur, diastolic murmur - Extremities Extremities: no ischemia, pulses intact, pulses symmetrical Peripheral Pulses: within normal limits - Abdominal General gastrointestinal: deferred, non-tender, non-distended, normal bowel sounds - Integumentary Integumentary: Present: warm (multiple tattoe) - Psychiatric Psychiatric: appropriate mood/affect, intact judgment & insight - Neurologic Neurologic: CNII-XII intact - Allied Health Allied health notes reviewed: nursing Results - Labs CBC & Chem 7: 01/02/18 05:01 01/02/18 05:01 Labs: Laboratory Last Values WBC 11.2 K/mm3 (4.5-11.0) H 01/02/18 05:01 RBC 3.85 M/mm3 (3.65-5.03) 01/02/18 05:01 Hgb 11.7 gm/dl (11.8-15.2) L 01/02/18 05:01 Hct 35.0 % (35.5-45.6) L 01/02/18 05:01 MCV 91 fl (84-94) 01/02/18 05:01 MCH 30 pg (28-32) 01/02/18 05:01 MCHC 33 % (32-34) 01/02/18 05:01 RDW 19.8 % (13.2-15.2) H 01/02/18 05:01 Plt Count 220 K/mm3 (140-440) 01/02/18 05:01 Lymph % (Auto) 19.0 % (13.4-35.0) 01/01/18 00:08 [place] % (Auto) 7.6 % (0.0-7.3) H 01/01/18 00:08 Eos % (Auto) 1.1 % (0.0-4.3) 01/01/18 00:08 Baso % (Auto) 0.7 % (0.0-1.8) 01/01/18 00:08 Lymph # 2.1 K/mm3 (1.2-5.4) 01/01/18 00:08 [place] # 0.8 K/mm3 (0.0-0.8) 01/01/18 00:08 Eos # 0.1 K/mm3 (0.0-0.4) 01/01/18 00:08 Baso # 0.1 K/mm3 (0.0-0.1) 01/01/18 00:08 Add Manual Diff Complete 01/02/18 05:01 Total Counted 100 01/02/18 05:01 Seg Neutrophils % 71.6 % (40.0-70.0) H 01/01/18 00:08 Seg Neuts % (Manual) 69.0 % (40.0-70.0) 01/02/18 05:01 Band Neutrophils % 2.0 % 01/02/18 05:01 Lymphocytes % (Manual) 21.0 % (13.4-35.0) 01/02/18 05:01 Reactive Lymphs % (Man) 0 % 01/02/18 05:01 Monocytes % (Manual) 6.0 % (0.0-7.3) 01/02/18 05:01 Eosinophils % (Manual) 2.0 % (0.0-4.3) 01/02/18 05:01 Basophils % (Manual) 0 % (0.0-1.8) 01/02/18 05:01 Metamyelocytes % 0 % 01/02/18 05:01 Myelocytes % 0 % 01/02/18 05:01 Promyelocytes % 0 % 01/02/18 05:01 Blast Cells % 0 % 01/02/18 05:01 Nucleated RBC % Not Reportable 01/02/18 05:01 Seg Neutrophils # 7.8 K/mm3 (1.8-7.7) H 01/01/18 00:08 Seg Neutrophils # Man 7.7 K/mm3 (1.8-7.7) 01/02/18 05:01 Band Neutrophils # 0.2 K/mm3 01/02/18 05:01 Lymphocytes # (Manual) 2.4 K/mm3 (1.2-5.4) 01/02/18 05:01 Abs React Lymphs (Man) 0.0 K/mm3 01/02/18 05:01 Monocytes # (Manual) 0.7 K/mm3 (0.0-0.8) 01/02/18 05:01 Eosinophils # (Manual) 0.2 K/mm3 (0.0-0.4) 01/02/18 05:01 Basophils # (Manual) 0.0 K/mm3 (0.0-0.1) 01/02/18 05:01 Metamyelocytes # 0.0 K/mm3 01/02/18 05:01 Myelocytes # 0.0 K/mm3 01/02/18 05:01 Promyelocytes # 0.0 K/mm3 01/02/18 05:01 Blast Cells # 0.0 K/mm3 01/02/18 05:01 WBC Morphology Not Reportable 01/02/18 05:01 Hypersegmented Neuts Not Reportable 01/02/18 05:01 Hyposegmented Neuts Not Reportable 01/02/18 05:01 Hypogranular Neuts Not Reportable 01/02/18 05:01 Smudge Cells Not Reportable 01/02/18 05:01 Toxic Granulation Not Reportable 01/02/18 05:01 Toxic Vacuolation Not Reportable 01/02/18 05:01 Dohle Bodies Not Reportable 01/02/18 05:01 Pelger-Huet Anomaly Not Reportable 01/02/18 05:01 Kanika Rods Not Reportable 01/02/18 05:01 Platelet Estimate Consistent w auto 01/02/18 05:01 Clumped Platelets Not Reportable 01/02/18 05:01 Plt Clumps, EDTA Not Reportable 01/02/18 05:01 Large Platelets Not Reportable 01/02/18 05:01 Giant Platelets Not Reportable 01/02/18 05:01 Platelet Satelliting Not Reportable 01/02/18 05:01 Plt Morphology Comment Not Reportable 01/02/18 05:01 RBC Morphology Not Reportable 01/02/18 05:01 Dimorphic RBCs Not Reportable 01/02/18 05:01 Polychromasia Not Reportable 01/02/18 05:01 Hypochromasia Not Reportable 01/02/18 05:01 Poikilocytosis Not Reportable 01/02/18 05:01 Anisocytosis Not Reportable 01/02/18 05:01 Microcytosis Not Reportable 01/02/18 05:01 Macrocytosis Not Reportable 01/02/18 05:01 Spherocytes Not Reportable 01/02/18 05:01 Pappenheimer Bodies Not Reportable 01/02/18 05:01 Sickle Cells Not Reportable 01/02/18 05:01 Target Cells Not Reportable 01/02/18 05:01 Tear Drop Cells Not Reportable 01/02/18 05:01 Ovalocytes Not Reportable 01/02/18 05:01 Helmet Cells Not Reportable 01/02/18 05:01 [place] Bodies Not Reportable 01/02/18 05:01 [place] Rings Not Reportable 01/02/18 05:01 Patricia Cells Not Reportable 01/02/18 05:01 Bite Cells Not Reportable 01/02/18 05:01 Crenated Cell Not Reportable 01/02/18 05:01 Elliptocytes Not Reportable 01/02/18 05:01 Acanthocytes (Spur) Not Reportable 01/02/18 05:01 Rouleaux Not Reportable 01/02/18 05:01 Hemoglobin C Crystals Not Reportable 01/02/18 05:01 Schistocytes Not Reportable 01/02/18 05:01 Malaria parasites Not Reportable 01/02/18 05:01 [place] Bodies Not Reportable 01/02/18 05:01 Hem Pathologist Commnt No 01/02/18 05:01 PT 14.7 Sec. (12.2-14.9) 01/01/18 00:08 INR 1.09 (0.87-1.13) 01/01/18 00:08 APTT 32.6 Sec. (24.2-36.6) 01/01/18 00:08 D-Dimer < 135 ng/mlDDU (0-234) 01/01/18 00:08 Sodium 136 mmol/L (137-145) L 01/02/18 05:01 Potassium 3.7 mmol/L (3.6-5.0) 01/02/18 05:01 Chloride 94.7 mmol/L (98-107) L 01/02/18 05:01 Carbon Dioxide 28 mmol/L (22-30) 01/02/18 05:01 Anion Gap 17 mmol/L 01/02/18 05:01 BUN 18 mg/dL (9-20) 01/02/18 05:01 Creatinine 1.5 mg/dL (0.8-1.5) 01/02/18 05:01 Estimated GFR 50 ml/min 01/02/18 05:01 BUN/Creatinine Ratio 12 % 01/02/18 05:01 Glucose 126 mg/dL (75-100) H 01/02/18 05:01 POC Glucose 145 (70-105) H 01/03/18 05:53 Calcium 8.9 mg/dL (8.4-10.2) 01/02/18 05:01 Magnesium 2.10 mg/dL (1.7-2.3) 01/02/18 05:01 Total Bilirubin 0.70 mg/dL (0.1-1.2) 01/01/18 00:08 AST 15 units/L (5-40) 01/01/18 00:08 ALT 13 units/L (7-56) 01/01/18 00:08 Alkaline Phosphatase 78 units/L (35-129) 01/01/18 00:08 Total Creatine Kinase 82 units/L (55-170) 01/01/18 10:27 CK-MB (CK-2) 1.5 ng/mL (0.0-4.0) 01/01/18 10:27 CK-MB (CK-2) Rel Index 1.8 (0-4) 01/01/18 10:27 Troponin T < 0.010 ng/mL (0.00-0.029) 01/01/18 10:27 NT-Pro-B Natriuret Pep 1271 pg/mL (0-450) H 01/01/18 00:08 Total Protein 7.0 g/dL (6.3-8.2) 01/01/18 00:08 Albumin 3.8 g/dL (3.9-5) L 01/01/18 00:08 Albumin/Globulin Ratio 1.2 % 01/01/18 00:08 Digoxin 0.4 ng/mL (0.9-2.0) L 01/01/18 00:15 - Imaging and Cardiology Chest x-ray: image reviewed (negative)
[2018-01-04] MEDS: ISORDIL TITRADOSE PO SCH ×2 (00:20→08:46)
[2018-01-04] MEDS: APRESOLINE PO SCH (06:32)
[2018-01-04] MEDS ORDERED: HEPARIN 10,000 UNITS/10 ML ONE (08:19)
[2018-01-04] MEDS ORDERED: HEPARIN/NS 5000 UNIT/500ML(CATH LAB) 1,000 ML IR ONE (08:19)
[2018-01-04] MEDS ORDERED: NITROGLYCERIN SYRINGE 3 ML ONE (08:20)
[2018-01-04] MEDS ORDERED: XYLOCAINE 2% INFILTRATI ONE (08:20)
[2018-01-04] MEDS ORDERED: CALAN ONE (08:20)
[2018-01-04] MEDS ORDERED: HEPARIN/NS 5000 UNIT/500ML(CATH LAB) 500 ML IR ONE (08:45)
[2018-01-04] MEDS: HumaLOG SUB-Q SCH ×2 (08:45→12:09)
[2018-01-04] MEDS ORDERED: SUBLIMAZE ONE (08:47)
[2018-01-04] MEDS ORDERED: VERSED ONE (08:47)
[2018-01-04] MEDS ORDERED: PONTOCAINE IJ NR (09:00)
[2018-01-04] MEDS ORDERED: NACL 0.9% 250ML 250 ML ONE (09:03)
[2018-01-04] MEDS ORDERED: PONTOCAINE IJ ONE (09:30)
--- NOTE | 2018-01-04 10:25 | Progress Note ---
Assessment and Plan Atypical chest pain MPI - severely dilated LV cavity, reversible inferior wall defect (cannot exclude ischemia) Cath - mild non-obstructive coronary artery disease Headaches Paroxysmal Afib underlying sinus rhythm s/p TTT/cardioversion 11/2017 on digoxin and coreg on eliquis for oral anticoagulation. Dilated nonischemic cardiomyopathy, EF 10-15% mean PCWP 25 mm Hg, Mean PA pressure 40 mm Hg, TPG 15 mm Hg, CO 6.19 l/min, PVR 2.42 AZAR Chronic obstructive pulmonary disease Severe Pulmonary Hypertension Essential hypertension Type 2 diabetes mellitus Obstructive sleep apnea Presence of ROLL ICER MACHINE-ICD (Medtronic) Hx of VT/VF Recommendations: Resume eliquis Reduce asa to 81 mg po daily May go home cardiac richardson Follow-up in office Subjective Date of service: 01/04/18 Principal diagnosis: Chest Pain Interval history: Patient underwent a LHC and RHC without complications Objective Vital Signs Temp Pulse Resp BP BP Pulse Ox 01/04/18 07:47 98.2 F 73 24 130/65 97 01/04/18 04:25 97.9 F 64 20 106/60 96 01/04/18 04:21 66 98 01/04/18 00:20 64 105/44 01/04/18 00:07 97.9 F 64 20 105/44 97 01/03/18 23:44 59 L 98 01/03/18 22:00 79 99 01/03/18 19:05 97.4 F L 77 20 114/59 100 01/03/18 16:08 98.9 F 75 16 132/71 99 - Physical Examination HEENT: Positive: PERRL Neck: Positive: neck supple Cardiac: Positive: Reg Rate and Rhythm Lungs: Positive: Normal Exam Neuro: Positive: Grossly Intact
--- NOTE | 2018-01-04 11:53 | Discharge Summary ---
Providers - Providers Date of Admission: 01/01/18 02:48 Attending physician: CLAUDIO WILSON MD 01/01/18 03:41 Consult to Physician [CONS] Routine Consulting Provider: OMID ALVARES Reason For Exam: cp Place consult to:: [facility] Notified:: y Comment:: added to list 01/04/18 10:21 Consult to Cardiac Rehabilitation [CONS] Routine Reason For Exam: Cardiac Rehab Evaluation Primary care physician: MURRAY PAL Hospitalization Reason for admission: chest pain Condition: Fair Hospital course: 46-year-old man with a history of hypertension, diabetes, gout, BRITTON, COPD, CHF comes to the emergency room complaining of shortness of breath, PND and orthopnea and lower extremity edema. He saw his call center representative today sent him here to the emergency room for further evaluation. He states he gained 11 pounds in one week. Patient stated he is compliant with his medication, also complaining of left flank pain. patient had a postive stress test but with cath showing only mild non obstructive CAD. 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-ICD ON MEDTRONIC HX OF VT/VF Disposition: DC-01 TO HOME OR SELFCARE Time spent for discharge: 35 mins Core Measure Documentation - Palliative Care Palliative Care/ Comfort Measures: Not Applicable - Core Measures Any of the following diagnoses?: none - VTE Discharge Requirements Deep Vein Thrombosis/Pulmonary Embolism Present on Admission: No Exam - Physical Exam Narrative exam: General appearance: Present: no acute distress, well-nourished, obese (morbid) - EENT Eyes: Present: PERRL, EOM intact ENT: hearing intact - Neck Neck: Present: supple, normal ROM - Respiratory Respiratory effort: normal Respiratory: bilateral: diminished - Cardiovascular Rhythm: regular Heart Sounds: Present: S1 & S2. Absent: systolic murmur - Extremities Extremities: no ischemia, pulses intact, No edema, normal temperature - Abdominal General gastrointestinal: soft, non-tender, non-distended, normal bowel sounds - Integumentary Integumentary: Present: clear, warm, dry - Psychiatric Psychiatric: appropriate mood/affect, intact judgment & insight - Neurologic Neurologic: CNII-XII intact, moves all extremities - Allied Health Allied health notes reviewed: nursing - Constitutional Vitals: Temp Pulse Resp BP Pulse Ox 98.2 F 73 24 130/65 97 01/04/18 07:47 01/04/18 07:47 01/04/18 07:47 01/04/18 07:47 01/04/18 07:47 Plan Activity: advance as tolerated, fall precautions Diet: low cholesterol, low salt, diabetic Special Instructions: record daily weights, record daily BP diary, record blood sugar diary Follow up with: MURRAY PAL MD [Primary Care Provider] - 3-5 Days OMID ALVARES MD [Staff Physician] - 7 Days Prescriptions: Aspirin EC [Aspirin Enteric Coated TAB] 81 mg PO QDAY #30 tablet
--- NOTE | 2018-01-04 11:57 | Cardiac Catherization Report ---
LEFT AND RIGHT HEART CATHETERIZATION INDICATION FOR PROCEDURE: Cardiomyopathy, abnormal myocardial perfusion scan, chest pain. PROCEDURES 1. Selective left and right coronary angiography. 2. Right heart catheterization with hemodynamic measurement and oxygen saturation run. DESCRIPTION OF PROCEDURE: After obtaining written consent, the patient was draped using sterile technique. A 2% lidocaine was injected into the right wrist. A 5-Kosovan vascular sheath was inserted into the right radial artery. A 5-Kosovan vascular sheath was inserted through the right brachial vein via a previously inserted peripheral IV line. A 5-Kosovan [place]-Samantha catheter was used to measure right-sided hemodynamics and perform an oxygen saturation run. A 5-Kosovan JL3.5 catheter was used to selectively engage the left coronary artery. A 5-Kosovan JL4 catheter was used to selectively engage the right coronary artery and measured left ventricular end-diastolic pressure. No complications occurred during the procedure. Hemostasis was achieved at the end of the procedure using manual pressure. SPECIMEN REMOVED: None. ESTIMATED BLOOD LOSS: Minimal. Physician and patient [id number] sedation start time is 9:58 a.m. Physician and patient's sedation [id number] stop time is 10:11 a.m. Total sedation time was 13 minutes. FINDINGS: HEMODYNAMICS: 1. The mean pulmonary capillary wedge pressure was 25 mmHg. 2. The mean pulmonary artery pressure was 40 mmHg. 3. The pulmonary artery systolic pressure was 57 mmHg with a diastolic pressure of 25 mmHg. 4. The right ventricular systolic pressure was 59 mmHg with right ventricular end-diastolic pressure of 24 mmHg. 5. The mean right arterial pressure was 21 mmHg. 6. The left ventricular systolic pressure was 131 mmHg with a left ventricular end-diastolic pressure of 22 mmHg. 7. The aortic pressure was 144/74. There was no significant gradient on pullback across the left ventricular outflow tract. 8. The pulmonary artery saturation was 55%. 9. The right ventricular saturation was 55%. 10. The right atrial saturation was 54%. 11. The aortic saturation was 91%. 12. The Rain cardiac output was 6.19 L per minute. The Rian cardiac index is 2.26 liters per minute per meter square. 13. The transpulmonary gradient is 15 mmHg. 14. The pulmonary vascular resistance is 2.4 Luna units. 15. Cardiac structures: The left ventriculogram was not performed knowing that the patient has dilated cardiomyopathy with an ejection fraction of 15%. CORONARY ANATOMY: 1. This is a right dominant circulation. 2. The left main is angiographically normal. 3. The LAD has a focal 30% stenosis noted in the mid segment, otherwise angiographically normal. 4. The left circumflex artery is angiographically normal. 5. The right coronary artery is angiographically normal. IMPRESSION: 1. Mild nonobstructive disease noted in the mid LAD, otherwise angiographically normal coronary circulation. 2. Elevated left and right-sided filling pressures with a mean pulmonary capillary wedge pressure was 25 mmHg and the mean right atrial pressure of 21 mmHg. 3. Moderate pulmonary hypertension with a mean PA pressure of 40 mmHg, transpulmonary gradient of 15 mmHg and pulmonary vascular resistance of 2.4 Luna Unit. 4. No evidence of intracardiac shunt. 5. Preserved cardiac index measured at 2.26 liters per minute per meter square. RECOMMENDATIONS: 1. Continue current medical therapy and risk factor modifications. 2. Continue diuresis and afterload reduction. 3. No further invasive cardiac intervention is needed. [facility]# [id number] EKATERINA/BEATA
[2018-01-04] MEDS: PROTONIX PO SCH (12:04)
[2018-01-04] MEDS: FEOSOL PO SCH (12:04)
[2018-01-04] MEDS: ZYLOPRIM PO SCH (12:05)
[2018-01-04] MEDS: ZESTRIL PO SCH (12:05)
[2018-01-04] MEDS: COREG PO SCH (12:06)
[2018-01-04] MEDS: SODIUM CHLORIDE FLUSH SYRINGE 10 ML IV SCH (12:08)
[2018-01-04] MEDS: DEMADEX PO SCH (12:08)
[2018-01-04 12:10] VITALS: BP 125/48
[2018-01-04] MEDS ORDERED: ELIQUIS PO SCH (22:00)
[2018-01-05] MEDS ORDERED: HALFPRIN EC PO SCH (10:00)
== END 2018-01-04 14:40 | disposition home health service (06) | DRG 287 ==
LOC: ED 23:43 → 4A 01-01 02:48
PROVIDERS: ADMIT Internal Medicine; ATTEND Internal Medicine
PROC: 4A023N8 Measurement of Cardiac Sampling and Pressure, Bilateral, Percutaneous Approach (ICD-10-PCS; principal; 2018-01-04)
PROC: B2111ZZ Fluoroscopy of Multiple Coronary Arteries using Low Osmolar Contrast (ICD-10-PCS; 2018-01-04)
PROC: B2161ZZ Fluoroscopy of Right and Left Heart using Low Osmolar Contrast (ICD-10-PCS; 2018-01-04)
DX: I25.10 Atherosclerotic heart disease of native coronary artery without angina pectoris (principal); G47.33 Obstructive sleep apnea (adult) (pediatric); M10.9 Gout, unspecified; I11.0 Hypertensive heart disease with heart failure; I50.9 Heart failure, unspecified; G43.909 Migraine, unspecified, not intractable, without status migrainosus; J44.1 Chronic obstructive pulmonary disease with (acute) exacerbation; S09.90XA Unspecified injury of head, initial encounter; I48.0 Paroxysmal atrial fibrillation; E11.65 Type 2 diabetes mellitus with hyperglycemia; E66.01 Morbid (severe) obesity due to excess calories; I42.0 Dilated cardiomyopathy; I27.20 Pulmonary hypertension, unspecified; M19.90 Unspecified osteoarthritis, unspecified site; Z90.49 Acquired absence of other specified parts of digestive tract; Z95.810 Presence of automatic (implantable) cardiac defibrillator; Z68.42 Body mass index [BMI] 45.0-49.9, adult; Z86.718 Personal history of other venous thrombosis and embolism; Z79.4 Long term (current) use of insulin; Z79.899 Other long term (current) drug therapy; Z82.49 Family history of ischemic heart disease and other diseases of the circulatory system; Z83.3 Family history of diabetes mellitus; Z86.711 Personal history of pulmonary embolism; Z91.018 Allergy to other foods
CPT/HCPCS: 36415; 70450; 71045; 78452; 80048; 80053; 80162; 82550; 82553; 82962; 83735; 83880; 84484; 85007; 85025; 85379; 85610; 85730; 93005; 93010; 93017; 93458; 94760; 96374; 96375; A9502; C1894; J1644; J1815; J2250; J2270; J2405; J2785; J3010; J7050; Q9967

== ENCOUNTER 2018-03-19 12:14 | Outpatient (CLI) | payer MEDICAID ==
--- NOTE | 2018-03-20 12:50 | XRay Report ---
Lumbar spine 4 views: History: Low back pain Findings: Normal height of vertebral bodies. Decrease in height of L3-L4 and L5-S1. Sclerotic adjacent reticular surfaces with peripheral osteophytes suggesting degenerative changes. No fracture. Impression: Degenerative changes lower lumbar spine
== END 2018-03-19 12:15 | disposition home or self-care (01) ==
LOC: XRAY 12:14
PROVIDERS: ATTEND Physical Medicine & Rehabilitation
DX: M47.896 Other spondylosis, lumbar region (principal); M25.78 Osteophyte, vertebrae; I11.0 Hypertensive heart disease with heart failure; I50.9 Heart failure, unspecified; G47.30 Sleep apnea, unspecified; E66.9 Obesity, unspecified; J44.9 Chronic obstructive pulmonary disease, unspecified; E11.9 Type 2 diabetes mellitus without complications; Z87.891 Personal history of nicotine dependence
CPT/HCPCS: 72110

== ENCOUNTER 2018-05-05 23:58 | Emergency (ER) | payer MEDICAID ==
[2018-05-06] MEDS ORDERED: ASPIRIN PO ONE (00:41)
[2018-05-06] MEDS ORDERED: MORPHINE IV ONE (00:45)
[2018-05-06] MEDS ORDERED: ZOFRAN IV ONE (00:45)
--- NOTE | 2018-05-06 01:00 | Emergency Department Report ---
HPI - General Chief Complaint: Chest Pain Time Seen by Provider: 05/06/18 00:18 - HPI HPI: This is a 47yr old male well known to this ED, with a long standing history of Nonischemic Cardiomyopathy, has an indwelling cardiac defibrillator, atrial flutter status post YARELY guided cardioversion 3 months ago, VT/VF, prior pulmonary embolism, COPD, BRITTON, HTN, severe Pulmonary Hypertension, and recurrent atypical chest pain. The patient presents with complaint of recurrence of chest pain for the past 2 days, constant for the past one day, sharp, 10/10 in severity, exacerbated with movement. The patient denies trauma to the chest, fever, cough, dyspnea, syncope, hemoptysis, unilateral leg swelling, recent immobilization, hx of recent cancer. ED Past Medical Hx - Past Medical History Hx Hypertension: Yes Hx Heart Attack/AMI: No Hx Congestive Heart Failure: Yes (dilated nonischemic cardiomyopathy EF 10-15%) Hx Diabetes: Yes Hx Deep Vein Thrombosis: Yes Hx Pulmonary Embolism: Yes Hx Liver Disease: No Hx Renal Disease: Yes (insufficiency) Hx Sickle Cell Disease: No Hx Arthritis: Yes Hx Asthma: Yes Hx COPD: Yes Hx Tuberculosis: No Hx HIV: No Additional medical history: copd; sleep apnea. anemia. severe pulmonary HTN. atrial fibrillation treated with cardioversion 11/2017. Hx of VT/VF - Surgical History Hx Coronary Stent: No Hx Pacemaker: Yes Hx Internal Defibrillator: Yes Hx Cholecystectomy: Yes Additional Surgical History: defibrillator, pacemaker - Social History Smoking Status: Never Smoker Substance Use Type: None - Medications Home Medications: Home Medications Medication Instructions Recorded Confirmed Last Taken Type Ferrous Sulfate [Feosol 325 MG tab] 325 mg PO BID 05/19/15 03/29/18 12/31/17 22: 00 History Magnesium Oxide 400 mg PO DAILY 08/31/16 03/29/18 12/31/17 History glipiZIDE [Glucotrol] 10 mg PO QDAY 03/16/17 03/29/18 12/31/17 08:00 History Carvedilol [Coreg] 25 mg PO BID #60 tablet 06/10/17 03/29/18 12/31/17 Rx Lisinopril [Zestril TAB] 2.5 mg PO QDAY #30 tablet 06/10/17 03/29/18 12/31/17 10 :00 Rx Allopurinol 100 mg PO BID 09/05/17 03/29/18 12/31/17 22:00 History Digoxin 125 mcg PO DAILY 10/14/17 03/29/18 12/31/17 History hydrALAZINE [Apresoline TAB] 25 mg PO BID 10/14/17 03/29/18 12/31/17 History Apixaban [Eliquis] 5 mg PO Q12HR #60 tablet 10/19/17 03/29/18 12/31/17 Rx Torsemide [Demadex] 100 mg PO QDAY #30 tablet 10/19/17 03/29/18 12/31/17 Rx Aspirin EC [Aspirin Enteric Coated 81 mg PO QDAY tablet 03/29/18 Unknown Rx TAB] Aspirin [Aspirin TAB] 325 mg PO QDAY 03/29/18 03/29/18 Unknown History Fluticasone [Flonase] 200 mcg NS QDAY bottle 03/29/18 Unknown Rx Isosorbide Dinitrate 10 mg PO BID #60 tablet 03/29/18 Unknown Rx Potassium Chloride [K-Dur] 20 meq PO BID #30 tablet 03/29/18 Unknown Rx Spironolactone [Aldactone] 50 mg PO QDAY 03/29/18 03/29/18 Unknown History ED Review of Systems ROS: Stated complaint: CP Other details as noted in HPI Constitutional: denies: fever ENT: denies: throat or neck pain Respiratory: denies: cough, shortness of breath Cardiovascular: reports chest pain Endocrine: denies unexplained weight loss or gain Gastrointestinal: denies: abdominal pain, nausea Genitourinary: denies: dysuria Musculoskeletal: denies: leg swelling Skin: denies: rash Neurological: denies: headache Hematological/Lymphatic: denies: easy bleeding or easy bruising Psych: denies sadness or hopelessness Physical Exam - Physical Exam Vital Signs: Vital Signs 05/06/18 00:31 Temperature 98.7 F Pulse Rate 73 Respiratory 16 Rate Blood Pressure 135/66 O2 Sat by Pulse 98 Oximetry Physical Exam: General: well-nourished, well-developed, no acute distress Head: Normocephalic, atraumatic Eyes: normal sclera ENT: Mucous membranes are pink and moist Neck: trachea midline, neck supple, No neck stiffness, no cervical adenopathy Respiratory: Breath sounds equal bilaterally, no wheezing, rales, or rhonchi Cardio: S1 and S2 present, no murmurs, rubs, gallops, capillary refill is brisk Abdomen: Normoactive bowel sounds, soft abdomen, no rigidity, no guarding or rebound tenderness Musc: No pitting edema Skin: No rash Neuro: no facial drooping, normal speech Psych: Normal affect ED Course Vital Signs 05/06/18 00:31 Temperature 98.7 F Pulse Rate 73 Respiratory 16 Rate Blood Pressure 135/66 O2 Sat by Pulse 98 Oximetry ED Medical Decision Making - Lab Data Result diagrams: 05/06/18 00:57 05/06/18 00:57 - Medical Decision Making The patient was seen and examined by myself. The patient is placed on a property assessment monitor and continuous pulse ox. On initial evaluation, the patient was found to be in no distress. EKG was negative for findings suggestive of acute cardiac infarct. Labs and imaging are obtained. The patient is given a dose of IV analgesia for his pain. Chest x-ray is negative for pneumothorax, focal consolidation, pulmonary vascular congestion, pleural effusion, or other obvious acute cardiopulmonary disease process. Lab results were non-concerning including levels of troponin, WBC, hemoglobin, hematocrit, electrolytes, renal function. Medical records are reviewed and revealed that the patient received a cardiac catheter at this facility within the past 4 months. He cardiac catheter was negative for any ischemic disease or significant coronary obstruction. The patient was reevaluated and reported that their symptoms were markedly improved. The patient is stable for discharge with outpatient follow-up. The patient is given follow-up and return instructions. The patient expressed understanding and agreed with the plan. The patient is discharged in stable condition. Critical care attestation.: If time is entered above; I have spent that time in minutes in the direct care of this critically ill patient, excluding procedure time. ED Disposition Clinical Impression: Acute chest pain, Acute hyperglycemia Disposition: -01 TO HOME OR SELFCARE Is pt being admited?: No Does the pt Need Aspirin: No Condition: Stable Instructions: Chest Pain (ED), Costochondritis (ED) Referrals: PRIMARY CARE, [Primary Care Provider] - 3-5 Days Time of Disposition: 01:00
[2018-05-06 01:07] LABS: Basophils # (Auto) 0.1 K/mm3 (0.0-0.1); Basophils % (Auto) 0.7 % (0.0-1.8); Eosinophils # (Auto) 0.1 K/mm3 (0.0-0.4); Hematocrit 23.7 % (35.5-45.6); Hemoglobin 8.3 gm/dl (11.8-15.2); Lymphocytes # (Auto) 1.8 K/mm3 (1.2-5.4); Lymphocytes % (Auto) 14.9 % (13.4-35.0); Mean Corpuscular HGB Conc 35 % (32-34); Mean Corpuscular Hemoglobin 34 pg (28-32); Mean Corpuscular Volume 97 fl (84-94); Monocytes # (Auto) 0.9 K/mm3 (0.0-0.8); Monocytes % (Auto) 7.9 % (0.0-7.3); Platelet Count 295 K/mm3 (140-440); Red Blood Count 2.45 M/mm3 (3.65-5.03); Red Cell Distribution Width 18.8 % (13.2-15.2)
--- NOTE | 2018-05-06 01:19 | XRay Report ---
FINAL REPORT PROCEDURE: XR CHEST 1V AP TECHNIQUE: Chest radiograph anteroposterior view. CPT 34190 HISTORY: chest pain COMPARISON: No prior studies are available for comparison. FINDINGS: Heart: Normal. Mediastinum/Vessels: Normal. Lungs/Pleural space: Lungs are expanded and clear. There are no infiltrates, effusions or pneumothoraces.. Bony thorax: No acute osseous abnormality. Life support devices: Pacemaker leads are in proper position.. IMPRESSION: No acute cardiopulmonary abnormality.
[2018-05-06 05:23] VITALS: BP 148/61
== END 2018-05-06 05:25 | disposition home or self-care (01) ==
LOC: ED 23:58
DX: R07.89 Other chest pain (principal); I13.0 Hypertensive heart and chronic kidney disease with heart failure and stage 1 through stage 4 chronic kidney disease, or unspecified chronic kidney disease; N18.9 Chronic kidney disease, unspecified; E11.29 Type 2 diabetes mellitus with other diabetic kidney complication; E11.65 Type 2 diabetes mellitus with hyperglycemia; I42.9 Cardiomyopathy, unspecified; J44.9 Chronic obstructive pulmonary disease, unspecified; M19.90 Unspecified osteoarthritis, unspecified site; G47.30 Sleep apnea, unspecified; Z86.718 Personal history of other venous thrombosis and embolism; Z86.711 Personal history of pulmonary embolism; Z95.0 Presence of cardiac pacemaker; Z90.49 Acquired absence of other specified parts of digestive tract; Z79.82 Long term (current) use of aspirin
CPT/HCPCS: 36415; 71045; 80048; 84484; 85025; 93005; 93010; 96374; 96375; 99284; J2270; J2405

== ENCOUNTER 2018-05-17 16:47 | Emergency (ER) | payer MEDICAID ==
[2018-05-17 17:33] LABS: INR 1.15 (0.87-1.13)
[2018-05-17 17:34] LABS: Basophils # (Auto) 0.1 K/mm3 (0.0-0.1); Basophils % (Auto) 0.8 % (0.0-1.8); Eosinophils # (Auto) 0.1 K/mm3 (0.0-0.4); Eosinophils % (Auto) 0.8 % (0.0-4.3); Hematocrit 28.8 % (35.5-45.6); Hemoglobin 9.2 gm/dl (11.8-15.2); Lymphocytes # (Auto) 1.8 K/mm3 (1.2-5.4); Lymphocytes % (Auto) 13.9 % (13.4-35.0); Mean Corpuscular HGB Conc 32 % (32-34); Mean Corpuscular Hemoglobin 32 pg (28-32); Mean Corpuscular Volume 99 fl (84-94); Monocytes % (Auto) 7.3 % (0.0-7.3); Partial Thromboplastin Time 30.4 Sec. (24.2-36.6); Platelet Count 357 K/mm3 (140-440); Red Blood Count 2.91 M/mm3 (3.65-5.03); Red Cell Distribution Width 18.2 % (13.2-15.2)
[2018-05-17 17:38] LABS: BUN/Creatinine Ratio 11; Blood Urea Nitrogen 14 mg/dL (9-20); Calcium 9.3 mg/dL (8.4-10.2); Hemolysis Index 0
--- NOTE | 2018-05-17 20:38 | Cat Scan Report ---
FINAL REPORT EXAM: CT HEAD/BRAIN WO CON HISTORY: neuro deficits < 6hrs or sx present upon awakening TECHNIQUE: 2.5 millimeter axial images from the skullbase to the vertex. Comparison: Head CT dated March 16, 2017 FINDINGS: There is no CT evidence of an acute intracranial process and no evidence of intracranial hemorrhage or mass effect. The ventricles are normal size. The visualized portions of the orbits, paranasal and mastoid sinuses are unremarkable. The bony structures are unremarkable in appearance. IMPRESSION: 1. No evidence of an acute intracranial process, intracranial hemorrhage or mass effect. If there is a clinical suspicion of acute cerebral ischemia, MRI would be helpful for further evaluation.
[2018-05-17] MEDS ORDERED: ZOFRAN ODT PO ONE (21:00)
[2018-05-17] MEDS ORDERED: ANTIVERT PO ONE (21:00)
--- NOTE | 2018-05-17 21:03 | Emergency Department Report ---
HPI - General Chief Complaint: Dizziness Time Seen by Provider: 05/17/18 20:53 - HPI HPI: 47-year-old -[place] male presents to the emergency department with complaint of a 2 to three-day history of some nausea with some dry heaves and some dizziness. The dizziness is both lightheadedness and some vertigo-like symptoms that occurs when he gets up to walk around. He denies any headache, chest pain, shortness of breath, fever. He has a past medical history of nonischemic cardiomyopathy with AICD in place, previous pulmonary embolism on anticoagulation, COPD, obstructive sleep apnea, hypertension and pulmonary hypertension. The patient had a heart catheterization done here in December that did not show any signs of any obstructive disease. The patient is trying to lose weight but says that he is losing weight to fast having gone down about 20 pounds in the past month. His primary care physician is Dr. Alvin Mckeon and his head of geography is Dr. Valdez. ED Past Medical Hx - Past Medical History Hx Hypertension: Yes Hx Heart Attack/AMI: No Hx Congestive Heart Failure: Yes (dilated nonischemic cardiomyopathy EF 10-15%) Hx Diabetes: Yes Hx Deep Vein Thrombosis: Yes Hx Pulmonary Embolism: Yes Hx Liver Disease: No Hx Renal Disease: Yes (insufficiency) Hx Sickle Cell Disease: No Hx Arthritis: Yes Hx Asthma: Yes Hx COPD: Yes Hx Tuberculosis: No Hx HIV: No Additional medical history: copd; sleep apnea. anemia. severe pulmonary HTN. atrial fibrillation treated with cardioversion 11/2017. Hx of VT/VF - Surgical History Hx Coronary Stent: No Hx Pacemaker: Yes Hx Internal Defibrillator: Yes Hx Cholecystectomy: Yes Additional Surgical History: defibrillator, pacemaker - Social History Smoking Status: Never Smoker Substance Use Type: None - Medications Home Medications: Home Medications Medication Instructions Recorded Confirmed Last Taken Type Ferrous Sulfate [Feosol 325 MG tab] 325 mg PO BID 05/19/15 05/06/18 12/31/17 22: 00 History Magnesium Oxide 400 mg PO DAILY 08/31/16 05/06/18 12/31/17 History glipiZIDE [Glucotrol] 10 mg PO QDAY 03/16/17 05/06/18 12/31/17 08:00 History Carvedilol [Coreg] 25 mg PO BID #60 tablet 06/10/17 05/06/18 12/31/17 Rx Lisinopril [Zestril TAB] 2.5 mg PO QDAY #30 tablet 06/10/17 05/06/18 12/31/17 10 :00 Rx Allopurinol 100 mg PO BID 09/05/17 05/06/18 12/31/17 22:00 History Digoxin 125 mcg PO DAILY 10/14/17 05/06/18 12/31/17 History hydrALAZINE [Apresoline TAB] 25 mg PO BID 10/14/17 05/06/18 12/31/17 History Apixaban [Eliquis] 5 mg PO Q12HR #60 tablet 10/19/17 05/06/18 12/31/17 Rx Torsemide [Demadex] 100 mg PO QDAY #30 tablet 10/19/17 05/06/18 12/31/17 Rx Aspirin [Aspirin TAB] 325 mg PO QDAY 03/29/18 05/06/18 Unknown History Fluticasone [Flonase] 200 mcg NS QDAY bottle 03/29/18 05/06/18 Unknown Rx Isosorbide Dinitrate 10 mg PO BID #60 tablet 03/29/18 05/06/18 Unknown Rx Potassium Chloride [K-Dur] 20 meq PO BID #30 tablet 03/29/18 05/06/18 Unknown Rx Spironolactone [Aldactone] 50 mg PO QDAY 03/29/18 05/06/18 Unknown History Meclizine [Antivert] 25 mg PO TID PRN #20 tablet 05/17/18 Unknown Rx ED Review of Systems ROS: Stated complaint: N/V Other details as noted in HPI Comment: All other systems reviewed and negative Constitutional: denies: chills, fever Eyes: denies: eye pain, eye discharge, vision change ENT: denies: ear pain, throat pain Respiratory: denies: cough, shortness of breath, wheezing Cardiovascular: denies: chest pain, palpitations Gastrointestinal: nausea, vomiting Genitourinary: denies: urgency, dysuria Musculoskeletal: denies: back pain, joint swelling, arthralgia Skin: denies: rash, lesions Neurological: vertigo, other (dizziness). denies: headache Physical Exam - Physical Exam Vital Signs: Vital Signs 05/17/18 17:00 Temperature 98.7 F Pulse Rate 80 Respiratory 16 Rate Blood Pressure 121/66 O2 Sat by Pulse 99 Oximetry Physical Exam: GENERAL: The patient is well-developed well-nourished. HENT: Normocephalic. Atraumatic. Patient has moist mucous membranes. EYES: Extraocular motions are intact. Pupils equal reactive to light bilaterally. Fatigable horizontal nystagmus. NECK: Supple. Trachea is midline. CHEST/LUNGS: Clear to auscultation. There is no respiratory distress noted. HEART/CARDIOVASCULAR: Regular. There is no tachycardia. There is no murmur. ABDOMEN: Abdomen is soft, nontender. Patient has normal bowel sounds. Obese habitus. SKIN: Skin is warm and dry. NEURO: The patient is awake, alert, and oriented. The patient is cooperative. The patient has no focal neurologic deficits. The patient has normal speech. Cranial nerves II through XII grossly intact. MUSCULOSKELETAL: There is no tenderness or deformity. There is no limitation range of motion. There is no evidence of acute injury. ED Course Vital Signs 05/17/18 17:00 Temperature 98.7 F Pulse Rate 80 Respiratory 16 Rate Blood Pressure 121/66 O2 Sat by Pulse 99 Oximetry ED Medical Decision Making - Lab Data Result diagrams: 05/17/18 17:07 05/17/18 17:07 - EKG Data -: EKG Interpreted by Ks - EKG Data When compared to previous EKG there are: no significant change Interpretation: unchanged when compared t (05/08/18), other (atrioventricular dual paced rhythm, rate of 72, left axis deviation, unchanged from previous) - Radiology Data Radiology results: report reviewed EXAM: CT HEAD/BRAIN WO CON HISTORY: neuro deficits lt; 6hrs or sx present upon awakening TECHNIQUE: 2.5 millimeter axial images from the skullbase to the vertex. Comparison: Head CT dated March 16, 2017 FINDINGS: There is no CT evidence of an acute intracranial process and no evidence of intracranial hemorrhage or mass effect. The ventricles are normal size. The visualized portions of the orbits, paranasal and mastoid sinuses are unremarkable. The bony structures are unremarkable in appearance. IMPRESSION: 1. No evidence of an acute intracranial process, intracranial hemorrhage or mass effect. If there is a clinical suspicion of acute cerebral ischemia, MRI would be helpful for further evaluation. Transcribed By: ED Dictated By: AUSTYN AKHTAR MD Electronically Authenticated By: AUSTYN AKHTAR MD Signed Date/Time: 2032 - Medical Decision Making Patient presents with a complaint of hyperglycemia and some dizziness/ lightheadedness. It sounded like there is some vertigo-like symptoms as he says that the room starts spinning when he gets up to ambulate. He does have some fatigable horizontal nystagmus. Otherwise there is no focal, motor or sensory deficits and his cranial nerves are intact. A CT of the head was done through triage that did not show any bleed, shift, mass or any other acute process. His labs did show some mild hyperglycemia but no signs of diabetic ketoacidosis or any diabetic complications. It came down to about 220 without any insulin or medication intervention. EKG is unchanged from previous and did not show any ST elevation NM. He was given a dose of Antivert for his dizziness and reevaluated multiple times over multiple hours and says he is feeling improved. We got him up and ambulated around the emergency department without any return of the dizziness or vertigo and there were no signs of instability. Patient says he is feeling improved and ready for discharge home. He has an appointment coming up with his primary care physician. He has been instructed to return to the emergency Department with any worsening of his symptoms or any acute distress. - Differential Diagnosis vertigo, orthostatic hypotension, vasovagal, DKA Critical Care Time: No Critical care attestation.: If time is entered above; I have spent that time in minutes in the direct care of this critically ill patient, excluding procedure time. ED Disposition Clinical Impression: Dizziness, Vertigo, Hyperglycemia Disposition: 09 OP ADMIT IP TO THIS HOSP Is pt being admited?: No Condition: Stable Instructions: Vertigo (ED), Dizziness (ED), Diabetic Hyperglycemia (ED) Additional Instructions: Please follow-up with your primary care physician in the next few days. Return to the emergency Department with any worsening of your symptoms or any acute distress. Try and stay away from foods that are high in sugar, carbohydrates and starches to help with your diabetes. Keep a blood sugar log. I have prescribed some Antivert/meclizine for you for when you get dizzy or have a room spinning sensation. This medication can sometimes be sedating and therefore should not be mixed with alcohol, taken prior to working, driving or being responsible for children. Prescriptions: Meclizine [Antivert] 25 mg PO TID PRN #20 tablet PRN Reason: Vertigo Referrals: PRIMARY CARE, [Primary Care Provider] - 3-5 Days Time of Disposition: 23:43
[2018-05-17 23:23] VITALS: BP 134/69
== END 2018-05-17 23:47 | disposition admitted as inpatient to this hospital (09) ==
LOC: ED 16:47
DX: E11.65 Type 2 diabetes mellitus with hyperglycemia (principal); R42 Dizziness and giddiness; I10 Essential (primary) hypertension; M19.90 Unspecified osteoarthritis, unspecified site; J44.9 Chronic obstructive pulmonary disease, unspecified; D64.9 Anemia, unspecified; N28.9 Disorder of kidney and ureter, unspecified; I48.91 Unspecified atrial fibrillation; Z95.0 Presence of cardiac pacemaker; Z90.49 Acquired absence of other specified parts of digestive tract; Z86.718 Personal history of other venous thrombosis and embolism; Z79.82 Long term (current) use of aspirin; Z95.810 Presence of automatic (implantable) cardiac defibrillator
CPT/HCPCS: 36415; 70450; 80048; 82962; 84443; 84484; 85025; 85610; 85670; 85730; 93005; 93010; Q0162

== ENCOUNTER 2018-06-18 12:29 | Outpatient (CLI) | payer MEDICAID ==
--- NOTE | 2018-06-18 14:14 | Cat Scan Report ---
CT LUMBAR SPINE WITHOUT CONTRAST HISTORY: Low back pain, spondylolysis and lumbar region TECHNIQUE: Helical CT with sagittal and coronal reformatted images. COMPARISON: 03/16/17. FINDINGS: There is normal height and alignment of lumbar vertebral bodies. No evidence for compression deformity, subluxation or bone lesion. The posterior elements and facet joints are in appropriate relationship. No pars defect or spondylolysis is identified. Mild disc space narrowing at L3-4 is again seen which is unchanged. The remaining levels of the lumbar region are within normal limits. The facet joints are unremarkable. No significant degenerative changes or hypertrophic changes. Minimal osteoarthritic disease is noted in the left L5-S1 facet joints. Although intraspinal contents can be obscured on CT, no large epidural defect or central canal stenosis is appreciated. IMPRESSION: Mild lumbar spondylosis as described which is unchanged since 03/16/17.
== END 2018-06-18 12:30 | disposition home or self-care (01) ==
LOC: CT 12:29
PROVIDERS: ATTEND Physical Medicine & Rehabilitation
DX: M43.06 Spondylolysis, lumbar region (principal); I11.0 Hypertensive heart disease with heart failure; I50.9 Heart failure, unspecified; J44.1 Chronic obstructive pulmonary disease with (acute) exacerbation; E66.01 Morbid (severe) obesity due to excess calories; I48.91 Unspecified atrial fibrillation; I25.10 Atherosclerotic heart disease of native coronary artery without angina pectoris; E11.9 Type 2 diabetes mellitus without complications; Z90.49 Acquired absence of other specified parts of digestive tract; Z68.42 Body mass index [BMI] 45.0-49.9, adult; Z87.891 Personal history of nicotine dependence
CPT/HCPCS: 72131

== ENCOUNTER 2018-10-25 19:29 | Inpatient (IN) | payer MEDICAID ==
[2018-10-25] MEDS ORDERED: ZOFRAN IV ONE (20:11)
[2018-10-25] MEDS ORDERED: SUBLIMAZE IV ONE ×2 (20:11→23:06)
[2018-10-25] MEDS ORDERED: ASPIRIN PO ONE (20:12)
--- NOTE | 2018-10-25 20:17 | Emergency Department Report ---
HPI - General Chief Complaint: Chest Pain Time Seen by Provider: 10/25/18 20:04 - HPI HPI: Room 3 The patient is a 47-year-old male presenting with a chief complaint of chest pain. The patient states he was at a physician's office when he was found to h ave a blood pressure of 80/46. The patient was advised to come to the ED for further evaluation but states he stated he went home to eat to see if it would improve his hypotension. The patient states after eating he developed substernal chest pain described as sharp and constant in nature. Patient states he has shortness of breath but denies nausea/vomiting or diaphoresis. Patient currently gets his pain score of 9/10. States his last stress test and cardiac catheterization occurred last year where he could not recall the results of the cath Location: Chest Duration: [See above] Quality: Sharp Severity: 9/10 Modifying factors: [see above] Context: [see above] Mode of transportation: [not driving] ED Past Medical Hx - Past Medical History Previous Medical History?: Yes Hx Hypertension: Yes Hx Congestive Heart Failure: Yes (EF 15%, AICD placement) Hx Diabetes: Yes Hx Deep Vein Thrombosis: Yes Hx Pulmonary Embolism: Yes Hx Renal Disease: Yes Hx Arthritis: Yes Hx Asthma: Yes Hx COPD: Yes Additional medical history: sleep apnea. anemia. severe pulmonary HTN. atrial fibrillation treated with cardioversion 11/2017. Hx of VT/VF. esophageal varic es - Surgical History Past Surgical History?: Yes Hx Pacemaker: Yes Hx Internal Defibrillator: Yes (AICD) Hx Cholecystectomy: Yes Additional Surgical History: defibrillator, pacemaker - Family History Family history: no significant - Social History Smoking Status: Current Every Day Smoker (1/3 pack per day) Substance Use Type: None (denies illicit drug use) - Medications Home Medications: Home Medications Medication Instructions Recorded Confirmed Last Taken Type Ferrous Sulfate [Feosol 325 MG tab] 325 mg PO BID 05/19/15 10/25/18 10/25/18 History Magnesium Oxide 400 mg PO DAILY 08/31/16 10/25/18 10/25/18 History glipiZIDE [Glucotrol] 10 mg PO QDAY 03/16/17 10/25/18 10/25/18 History Carvedilol [Coreg] 25 mg PO BID #60 tablet 06/10/17 10/25/18 10/25/18 Rx Lisinopril [Zestril TAB] 2.5 mg PO QDAY #30 tablet 06/10/17 10/25/18 10/25/18 Rx Allopurinol 100 mg PO BID 09/05/17 10/25/18 10/25/18 History Digoxin 125 mcg PO DAILY 10/14/17 10/25/18 10/25/18 History hydrALAZINE [Apresoline TAB] 25 mg PO BID 10/14/17 10/25/18 10/25/18 History Torsemide [Demadex] 100 mg PO QDAY #30 tablet 10/19/17 10/25/18 10/25/18 Rx Aspirin [Aspirin TAB] 325 mg PO QDAY 03/29/18 10/25/18 10/25/18 History Isosorbide Dinitrate 10 mg PO BID #60 tablet 03/29/18 10/25/18 10/25/18 Rx Potassium Chloride [K-Dur] 20 meq PO BID #30 tablet 03/29/18 10/25/18 10/25/18 Rx Spironolactone [Aldactone] 50 mg PO QDAY 03/29/18 10/25/18 10/25/18 History Insulin Glargine,Hum.rec.anlog 20 unit SQ HS 09/29/18 10/25/18 10/24/18 History [Lantus] Fluticasone [Flonase] 200 mcg NS QDAY PRN 10/11/18 10/25/18 10/25/18 History Apixaban [Eliquis] 5 mg PO BID 10/25/18 10/25/18 10/25/18 History ED Review of Systems ROS: Stated complaint: CHEST PAIN Other details as noted in HPI Constitutional: denies: diaphoresis Eyes: denies: eye pain ENT: denies: throat pain Respiratory: shortness of breath Cardiovascular: chest pain Endocrine: no symptoms reported Gastrointestinal: denies: nausea, vomiting Genitourinary: denies: dysuria Musculoskeletal: denies: back pain Neurological: denies: headache Physical Exam - Physical Exam Physical Exam: GENERAL: The patient is well-developed well-nourished male sitting on stretcher not appearing to be in acute distress HEENT: Normocephalic. Atraumatic. Extraocular motions are intact. Patient has moist mucous membranes. NECK: Supple. Trachea midline CHEST/LUNGS: Clear to auscultation. There is no respiratory distress noted. HEART/CARDIOVASCULAR: Regular. There is no tachycardia. There is no gallop rub or murmur. ABDOMEN: Abdomen is soft, nontender. Patient has normal bowel sounds. There is no abdominal distention. SKIN: There is no diaphoresis. NEURO: The patient is awake, alert, and oriented. The patient is cooperative. The patient has normal speech MUSCULOSKELETAL: There is no evidence of acute injury. ED Medical Decision Making - Lab Data Result diagrams: 10/25/18 20:43 10/25/18 20:43 Laboratory Tests 10/25/18 10/25/18 10/25/18 20:43 20:43 20:43 WBC 9.5 RBC 3.24 L Hgb 8.8 L Hct 27.9 L MCV 86 MCH 27 L MCHC 32 RDW 19.6 H Plt Count 361 Lymph % (Auto) 12.6 L [place] % (Auto) 9.1 H Eos % (Auto) 1.3 Baso % (Auto) 1.0 Lymph # 1.2 [place] # 0.9 H Eos # 0.1 Baso # 0.1 Seg Neutrophils % 76.0 H Seg Neutrophils # 7.2 PT 14.8 INR 1.12 APTT 31.1 D-Dimer 147.91 Sodium 139 Potassium 3.4 L Chloride 96.2 L Carbon Dioxide 32 H Anion Gap 14 BUN 8 L Creatinine 1.3 Estimated GFR 59 BUN/Creatinine Ratio 6 Glucose 71 L Calcium 8.9 Total Creatine Kinase 59 CK-MB (CK-2) 1.2 CK-MB (CK-2) Rel Index 2.0 Troponin T < 0.010 NT-Pro-B Natriuret Pep 1508 H - EKG Data -: EKG Interpreted by Me Rate: normal - EKG Data When compared to previous EKG there are: no significant change Interpretation: unchanged when compared t (10/14/2018.), other (paced rhythm) - Radiology Data Radiology results: image reviewed (chest x-ray) interpreted by me: Chest x-ray-no focal infiltrates, no pneumothorax - Differential Diagnosis ACS, pericarditis, GERD, PE Critical care attestation.: If time is entered above; I have spent that time in minutes in the direct care of this critically ill patient, excluding procedure time. ED Disposition Clinical Impression: Chest pain Disposition: [id number] OP ADMIT IP TO THIS HOSP Is pt being admited?: Yes Does the pt Need Aspirin: Yes Condition: Fair Instructions: Chest Pain (ED) Time of Disposition: 21:41 (hospitalist paged (Dr Teressa Webb))
[2018-10-25 21:12] LABS: INR 1.12 (0.87-1.13)
[2018-10-25 21:13] LABS: Partial Thromboplastin Time 31.1 Sec. (24.2-36.6)
[2018-10-25 21:20] LABS: Creatine Kinase MB 1.2 ng/mL (0.0-4.0)
[2018-10-25 21:22] LABS: BUN/Creatinine Ratio 6; Blood Urea Nitrogen 8 mg/dL (9-20); Calcium 8.9 mg/dL (8.4-10.2); Hemolysis Index 3
[2018-10-25 21:30] LABS: Basophils # (Auto) 0.1 K/mm3 (0.0-0.1); Eosinophils # (Auto) 0.1 K/mm3 (0.0-0.4); Eosinophils % (Auto) 1.3 % (0.0-4.3); Hematocrit 27.9 % (35.5-45.6); Hemoglobin 8.8 gm/dl (11.8-15.2); Lymphocytes # (Auto) 1.2 K/mm3 (1.2-5.4); Lymphocytes % (Auto) 12.6 % (13.4-35.0); Mean Corpuscular HGB Conc 32 % (32-34); Mean Corpuscular Volume 86 fl (84-94); Monocytes # (Auto) 0.9 K/mm3 (0.0-0.8); Monocytes % (Auto) 9.1 % (0.0-7.3); Platelet Count 361 K/mm3 (140-440); Red Blood Count 3.24 M/mm3 (3.65-5.03); Red Cell Distribution Width 19.6 % (13.2-15.2)
--- NOTE | 2018-10-25 22:00 | XRay Report ---
FINAL REPORT EXAM: XR CHEST 1V AP HISTORY: chest pain TECHNIQUE: AP portable view of the chest PRIORS: CXR 10/14/2018 FINDINGS: Lines, tubes, and devices: 3 lead left subclavian pacemaker is unchanged. Lungs and pleura: Trachea is normal in position. Lungs are clear of infiltrate, pleural effusion, vas cular congestion, or pneumothorax. No change. Cardiomediastinal silhouette: Heart is prominent in view of the AP projection.. Other: Bony structures are intact. IMPRESSION: No acute cardiopulmonary process seen. No change.
[2018-10-25] MEDS ORDERED: NORCO 5/325 ONE (23:11)
[2018-10-25] MEDS ORDERED: NORCO 5/325 PO ONE (23:11)
--- NOTE | 2018-10-25 23:49 | History and Physical Report ---
History of Present Illness Date of examination: 10/25/18 History of present illness: 47-year-old man with a history of hypertension, diabetes, gout, BRITTON, COPD, CHF comes to the emergency room complaining of chest pain. Patient is 81 mL pain doctor disorient, his blood pressure was noted to be in the 80s he was sent to the emergency room for further evaluation. At the time he felt dizzy and lightheaded. However he went home and started having chest pain in the left substernal area which he describes as sharp, constant, intensity 7/10, radiating to the right shoulder, associated with shortness of breath, palpitation, no diaphoresis or nausea, vomiting. He was just discharged from the hospital on October 14 for GI bleed secondary to esophageal varices. He had a stress test one year ago Review Of Systems: Constitutional: no fever, chills, weight loss Ears, eyes, nose, mouth and throat: no nasal congestion, no nasal discharge, no sinus pressure, blurry vision, diplopia Neck: No neck pain or rigidity. Cardiovascular: +chest pain, palpitations Respiratory: No cough Gastrointestinal: abdominal pain, hematochezia Genitourinary : no dysuria, frequency , hematuria Musculoskeletal: no joint swelling or muscle ache Integumentary: no rash, no pruritis Neurological: no parathesias, focal weakness Endocrine: no cold or heat intolerance, no polyuria or polydipsia Hematologic/Lymphatic: no easy bruising, no easy bleeding, no gland swelling Allergic/Immunologic: no urticaria, no angioedema. PAST MEDICAL HISTORY:hypertension, diabetes, gout, BRITTON, COPD, CHF PAST SURGICAL HISTORY:AICD, hip replacement, gall bladder SOCIAL HISTORY: Denies alcohol, tobacco, drugs FAMILY HISTORY:cad, DM Medications and Allergies Allergies Allergy/AdvReac Type Severity Reaction Status Date / Time cephalexin monohydrate AdvReac Hives Verified 05/17/18 21:55 [From Keflex] lidocaine AdvReac Hives Verified 05/17/18 21:55 mushrooms Allergy Anaphylaxis Uncoded 05/17/18 21:55 Home Medications Medication Instructions Recorded Confirmed Last Taken Type Ferrous Sulfate [Feosol 325 MG tab] 325 mg PO BID 05/19/15 10/25/18 10/25/18 History Magnesium Oxide 400 mg PO DAILY 08/31/16 10/25/18 10/25/18 History glipiZIDE [Glucotrol] 10 mg PO QDAY 03/16/17 10/25/18 10/25/18 History Carvedilol [Coreg] 25 mg PO BID #60 tablet 06/10/17 10/25/18 10/25/18 Rx Lisinopril [Zestril TAB] 2.5 mg PO QDAY #30 tablet 06/10/17 10/25/18 10/25/18 Rx Allopurinol 100 mg PO BID 09/05/17 10/25/18 10/25/18 History Digoxin 125 mcg PO DAILY 10/14/17 10/25/18 10/25/18 History hydrALAZINE [Apresoline TAB] 25 mg PO BID 10/14/17 10/25/18 10/25/18 History Torsemide [Demadex] 100 mg PO QDAY #30 tablet 10/19/17 10/25/18 10/25/18 Rx Aspirin [Aspirin TAB] 325 mg PO QDAY 03/29/18 10/25/18 10/25/18 History Isosorbide Dinitrate 10 mg PO BID #60 tablet 03/29/18 10/25/18 10/25/18 Rx Potassium Chloride [K-Dur] 20 meq PO BID #30 tablet 03/29/18 10/25/18 10/25/18 Rx Spironolactone [Aldactone] 50 mg PO QDAY 03/29/18 10/25/18 10/25/18 History Insulin Glargine,Hum.rec.anlog 20 unit SQ HS 09/29/18 10/25/18 10/24/18 History [Lantus] Fluticasone [Flonase] 200 mcg NS QDAY PRN 10/11/18 10/25/18 10/25/18 History Apixaban [Eliquis] 5 mg PO BID 10/25/18 10/25/18 10/25/18 History Exam - Physical Exam Narrative exam: General Apperance: The patient lying in bed, breathing comfortable HEENT: Normocephalic, atraumatic. Pupils equally round and reactive to light, EOMI, no sclericterus or JVD or thyromegaly or nodule. , no carotid bruit, mucous membranes moist, no exudate or erythema Heart: S1-S2, regular is rhythm Lungs: Clear to auscultation bilaterally, breathing comfortable Abdomen: Positive bowel sounds, soft, nontender, nondistended, no organomegaly Extremities: No edema cyanosis clubbing Skin: no rash, nodule, warm and dry Neuro: cranial nerves 2-12 intact, speech is fluent, motor/sensory intact - Constitutional Vitals: Temp Pulse Resp BP Pulse Ox 66 16 99/60 97 10/25/18 22:30 10/25/18 22:46 10/25/18 22:30 10/25/18 22:46 Results - Labs CBC & Chem 7: 10/25/18 20:43 10/25/18 20:43 Labs: Abnormal lab results 10/25/18 10/25/18 Range/Units 20:43 20:43 RBC 3.24 L (3.65-5.03) M/mm3 Hgb 8.8 L (11.8-15.2) gm/dl Hct 27.9 L (35.5-45.6) % MCH 27 L (28-32) pg RDW 19.6 H (13.2-15.2) % Lymph % (Auto) 12.6 L (13.4-35.0) % [place] % (Auto) 9.1 H (0.0-7.3) % [place] # 0.9 H (0.0-0.8) K/mm3 Seg Neutrophils % 76.0 H (40.0-70.0) % Potassium 3.4 L (3.6-5.0) mmol/L Chloride 96.2 L (98-107) mmol/L Carbon Dioxide 32 H (22-30) mmol/L BUN 8 L (9-20) mg/dL Glucose 71 L (75-100) mg/dL NT-Pro-B Natriuret Pep 1508 H (0-450) pg/mL - Imaging and Cardiology EKG: image reviewed Chest x-ray: report reviewed Assessment and Plan Assessment Hypotension Chest pain CHF, stable History of recent GI bleed Hypokalemia COPD Hypertension Diabetes Depression Obstructive sleep apnea Morbid obesity History of pulmonary emboli Plan Admit to medicine Check cardiac enzymes, consult cardiology Hold antihypertensives Hold anti-preoperative agent, recent GI bleed Check fingersticks and start insulin sliding scale Continue appropiate outpatient medications DVT prophylaxis
[2018-10-26] MEDS ORDERED: TYLENOL PO PRN (02:28)
[2018-10-26] MEDS ORDERED: SODIUM CHLORIDE FLUSH SYRINGE 10 ML IV PRN (02:28)
[2018-10-26] MEDS ORDERED: ZOFRAN IV PRN (02:28)
[2018-10-26] MEDS: MORPHINE IV PRN ×2 (03:51→09:45)
[2018-10-26 05:14] LABS: Basophils # (Auto) 0.1 K/mm3 (0.0-0.1); Basophils % (Auto) 0.7 % (0.0-1.8); Eosinophils # (Auto) 0.2 K/mm3 (0.0-0.4); Eosinophils % (Auto) 2.5 % (0.0-4.3); Hematocrit 28.2 % (35.5-45.6); Hemoglobin 8.9 gm/dl (11.8-15.2); Lymphocytes # (Auto) 1.4 K/mm3 (1.2-5.4); Lymphocytes % (Auto) 14.3 % (13.4-35.0); Mean Corpuscular HGB Conc 32 % (32-34); Mean Corpuscular Volume 86 fl (84-94); Monocytes # (Auto) 0.9 K/mm3 (0.0-0.8); Platelet Count 340 K/mm3 (140-440); Red Blood Count 3.28 M/mm3 (3.65-5.03); Red Cell Distribution Width 19.4 % (13.2-15.2)
[2018-10-26 05:29] LABS: Creatine Kinase MB 1.2 ng/mL (0.0-4.0)
[2018-10-26] MEDS ORDERED: K-DUR PO NR (06:08)
[2018-10-26 09:57] LABS: Creatine Kinase MB 1.4 ng/mL (0.0-4.0)
[2018-10-26] MEDS ORDERED: SODIUM CHLORIDE FLUSH SYRINGE 10 ML IV SCH (10:00)
[2018-10-26] MEDS ORDERED: LOVENOX SUB-Q SCH ×2 (10:00)
--- NOTE | 2018-10-26 12:05 | Consultation ---
History of Present Illness Consult date: 10/26/18 Consult reason: congestive heart failure, hypertension History of present illness: 45 year old with left precordial chest pain which he describes as sharp and constant associated with shortness of breath but no diaphoresis. He has a history of pulmonary embolism coronary artery disease ischemic cardiomyopathy with an AICD inserted. Past History Past Medical History: CAD, COPD, diabetes, hypertension, hyperlipidemia Social history: single. denies: smoking, alcohol abuse Family history: no significant family history Medications and Allergies Allergies Allergy/AdvReac Type Severity Reaction Status Date / Time cephalexin monohydrate AdvReac Hives Verified 05/17/18 21:55 [From Keflex] lidocaine AdvReac Hives Verified 05/17/18 21:55 mushrooms Allergy Anaphylaxis Uncoded 05/17/18 21:55 Home Medications Medication Instructions Recorded Confirmed Last Taken Type Ferrous Sulfate [Feosol 325 MG tab] 325 mg PO BID 05/19/15 10/25/18 10/25/18 History Magnesium Oxide 400 mg PO DAILY 08/31/16 10/25/18 10/25/18 History glipiZIDE [Glucotrol] 10 mg PO QDAY 03/16/17 10/25/18 10/25/18 History Carvedilol [Coreg] 25 mg PO BID #60 tablet 06/10/17 10/25/18 10/25/18 Rx Lisinopril [Zestril TAB] 2.5 mg PO QDAY #30 tablet 06/10/17 10/25/18 10/25/18 Rx Allopurinol 100 mg PO BID 09/05/17 10/25/18 10/25/18 History Digoxin 125 mcg PO DAILY 10/14/17 10/25/18 10/25/18 History hydrALAZINE [Apresoline TAB] 25 mg PO BID 10/14/17 10/25/18 10/25/18 History Torsemide [Demadex] 100 mg PO QDAY #30 tablet 10/19/17 10/25/18 10/25/18 Rx Aspirin [Aspirin TAB] 325 mg PO QDAY 03/29/18 10/25/18 10/25/18 History Isosorbide Dinitrate 10 mg PO BID #60 tablet 03/29/18 10/25/18 10/25/18 Rx Potassium Chloride [K-Dur] 20 meq PO BID #30 tablet 03/29/18 10/25/18 10/25/18 Rx Spironolactone [Aldactone] 50 mg PO QDAY 03/29/18 10/25/18 10/25/18 History Insulin Glargine,Hum.rec.anlog 20 unit SQ HS 09/29/18 10/25/18 10/24/18 History [Lantus] Fluticasone [Flonase] 200 mcg NS QDAY PRN 10/11/18 10/25/18 10/25/18 History Apixaban [Eliquis] 5 mg PO BID 10/25/18 10/25/18 10/25/18 History Active Meds: Active Medications Acetaminophen (Tylenol) 650 mg PO Q4H PRN PRN Reason: Pain MILD(1-3)/Fever >100.5/KNIGHT Morphine Sulfate (Morphine) 2 mg IV Q4H PRN PRN Reason: Pain, Moderate (4-6) Last Admin: 10/26/18 03:51 Dose: 2 mg Documented by: Ondansetron HCl (Zofran) 4 mg IV Q8H PRN PRN Reason: Nausea And Vomiting Sodium Chloride (Sodium Chloride Flush Syringe 10 Ml) 10 ml IV BID ROBERT Sodium Chloride (Sodium Chloride Flush Syringe 10 Ml) 10 ml IV PRN PRN PRN Reason: LINE FLUSH Review of Systems All systems: negative Cardiovascular: chest pain, shortness of breath Physical Examination Vital Signs Pulse Resp Pulse Ox 74 24 98 10/25/18 19:28 10/25/18 19:28 10/25/18 19:28 General appearance: no acute distress, mild distress, obese HEENT: Positive: PERRL, Normocephaly, Mucus Membranes Moist Neck: Positive: neck supple, trachea midline. Negative: JVD/HJR Cardiac: Positive: Reg Rate and Rhythm, Regular Rate, S1/S2, S3, Laterally Displaced Lungs: Positive: clear to auscultation, No Wheeze, Rales, Rhonchi Neuro: Positive: Grossly Intact, No Lateralizing Findings Abdomen: Positive: Unremarkable, Active Bowel Sounds Extremities: Absent: edema Results 10/26/18 04:52 10/26/18 04:52 Cardiac Enzymes 10/25/18 10/26/18 10/26/18 Range/Units 20:43 04:52 08:57 CK-MB (CK-2) 1.2 1.2 1.4 (0.0-4.0) ng/mL Coagulation 10/25/18 Range/Units 20:43 PT 14.8 (12.2-14.9) Sec. INR 1.12 (0.87-1.13) APTT 31.1 (24.2-36.6) Sec. CBC 10/25/18 10/26/18 Range/Units 20:43 04:52 WBC 9.5 9.9 (4.5-11.0) K/mm3 RBC 3.24 L 3.28 L (3.65-5.03) M/mm3 Hgb 8.8 L 8.9 L (11.8-15.2) gm/dl Hct 27.9 L 28.2 L (35.5-45.6) % Plt Count 361 340 (140-440) K/mm3 Lymph # 1.2 1.4 (1.2-5.4) K/mm3 [place] # 0.9 H 0.9 H (0.0-0.8) K/mm3 Eos # 0.1 0.2 (0.0-0.4) K/mm3 Baso # 0.1 0.1 (0.0-0.1) K/mm3 Comprehensive Metabolic Panel 10/25/18 10/26/18 Range/Units 20:43 04:52 Sodium 139 137 (137-145) mmol/L Potassium 3.4 L 3.0 L (3.6-5.0) mmol/L Chloride 96.2 L 94.7 L (98-107) mmol/L Carbon Dioxide 32 H 30 (22-30) mmol/L BUN 8 L 7 L (9-20) mg/dL Creatinine 1.3 1.3 (0.8-1.5) mg/dL Glucose 71 L 119 H (75-100) mg/dL Calcium 8.9 9.0 (8.4-10.2) mg/dL EKG interpretations - Telemetry EKG Rhythm: Sinus Rhythm Assessment and Plan 1. Chest pain 2. Chronic combined systolic and diastolic heart failure 3. Dilated cardiomyopathy (ventricular ejection fraction 15% 4. Type 2 diabetes mellitus 5. Chronic obstructive pulmonary disease 6. Severe obesity 7. Obstructive sleep apnea 8. Presence of a ICD Plan. Patient is stable serum troponin levels are normal chest pain appears pleuritic will treat conservatively with an allergsics. Resume home cardiac medications
--- NOTE | 2018-10-26 17:31 | Discharge Summary ---
Providers - Providers Date of Admission: 10/25/18 23:49 Date of discharge: 10/26/18 Attending physician: ROGELIO SOUZA 10/26/18 02:28 Consult to Physician [CONS] Routine Comment: Consulting Provider: SHO ORTEZ Physician Instructions: Reason For Exam: cp Primary care physician: BOTTOM MAN Hospitalization Condition: Fair Pertinent studies: CXR: no infiltrates Hospital course: This is a 47yr old male well known to our service. Patient has a long standing history of Nonischemic Cardiomyopathy, has an indwelling cardiac defibrillator, history of atrial flutter status post YARELY guided cardioversion, off eliquis for recent GI bleed presented to the ER with complaints of chest pain. In December last year, he underwent a cardiac catheterization that revealed no significant coronary artery disease, ejection fraction 15%. Co-morbidities includes VT/VF, prior pulmonary embolism, COPD, [place], HTN, severe Pulmonary Hypertension and obesity. He denied AICD discharge. Chest xray was negative. 12 lead EKG showed a AV paced rhythm. Cardiology was consulted for further evaluation and management. Litigation Partner evaluated the patient and recommended medical management, and no further intervention. Patient was discharged home in stable condition with outpatient follow-up. Discharge diagnosis: Atypical chest pain, likely due to GERD vs musculoskeletal - Cardiology recommended no further intervention - Cath 12/2017 - mild non-obstructive coronary artery disease - Cont PPI for possible underlying GERD Hypokalemia, replaced Dilated nonischemic cardiomyopathy, EF 10-15% - normal coronaries by [facility] 09/2015 - s/p GRAPHIC ILLUSTRATOR-ICD ([employer]), medical management per cardiology Chronic obstructive pulmonary disease - not on exacerbation Paroxysmal atrial fibrillation, not on anti-coagulation due to recent history of GI bleed s/p TTT/cardioversion 11/2017, on digoxin and coreg Severe Pulmonary Hypertension - stable now, continue outpatient follow-up Recent GI bleed due to esophageal varices, h/h stable, cont outpt f/u and PPI Essential hypertension - stable with current meds Type 2 diabetes mellitus Obstructive sleep apnea - CPAP at bedtime H/o gout, on allopurinol Hx of VT/VF, stable Disposition: -01 TO HOME OR SELFCARE Time spent for discharge: 34 minutes Core Measure Documentation - Palliative Care Palliative Care/ Comfort Measures: Not Applicable - Core Measures Any of the following diagnoses?: history only Exam - Constitutional Vitals: Temp Pulse Resp BP Pulse Ox 98.6 F 62 20 110/57 98 10/26/18 16:05 10/26/18 16:05 10/26/18 16:05 10/26/18 16:05 10/26/18 16:05 General appearance: Present: no acute distress, obese - EENT Eyes: Present: PERRL ENT: hearing intact, clear oral mucosa - Neck Neck: Present: supple, normal ROM - Respiratory Respiratory effort: normal Respiratory: bilateral: CTA - Cardiovascular Heart Sounds: Present: S1 & S2. Absent: rub, click - Extremities Extremities: pulses symmetrical, No edema Peripheral Pulses: within normal limits - Abdominal General gastrointestinal: Present: soft, non-tender, non-distended, normal bowel sounds - Integumentary Integumentary: Present: clear, warm, dry - Musculoskeletal Musculoskeletal: gait normal, strength equal bilaterally - Psychiatric Psychiatric: appropriate mood/affect, intact judgment & insight - Neurologic Neurologic: CNII-XII intact, moves all extremities Plan Activity: advance as tolerated Weight Bearing Status: Non-Weight Bearing Diet: low fat, low salt, diabetic Additional Instructions: Follow-up with cardiology clinic in 1 week. Follow up with: PRIMARY CAREMD [Primary Care Provider] - 3-5 Days
[2018-10-26 20:20] VITALS: BP 126/60
== END 2018-10-26 19:40 | disposition home or self-care (01) | DRG 313 ==
LOC: ED 19:29 → 4A 23:49
PROVIDERS: ADMIT Internal Medicine; ATTEND Internal Medicine
DX: R07.89 Other chest pain (principal); K21.9 Gastro-esophageal reflux disease without esophagitis; I11.0 Hypertensive heart disease with heart failure; Z68.41 Body mass index [BMI] 40.0-44.9, adult; E11.9 Type 2 diabetes mellitus without complications; M19.90 Unspecified osteoarthritis, unspecified site; J44.9 Chronic obstructive pulmonary disease, unspecified; I27.20 Pulmonary hypertension, unspecified; I48.91 Unspecified atrial fibrillation; F17.210 Nicotine dependence, cigarettes, uncomplicated; M10.9 Gout, unspecified; G47.33 Obstructive sleep apnea (adult) (pediatric); I95.9 Hypotension, unspecified; E87.6 Hypokalemia; E66.01 Morbid (severe) obesity due to excess calories; I50.42 Chronic combined systolic (congestive) and diastolic (congestive) heart failure; I42.0 Dilated cardiomyopathy; I48.0 Paroxysmal atrial fibrillation; Z79.4 Long term (current) use of insulin; Z82.49 Family history of ischemic heart disease and other diseases of the circulatory system; Z83.3 Family history of diabetes mellitus; Z90.49 Acquired absence of other specified parts of digestive tract; Z88.8 Allergy status to other drugs, medicaments and biological substances; Z91.018 Allergy to other foods; Z95.810 Presence of automatic (implantable) cardiac defibrillator; Z86.718 Personal history of other venous thrombosis and embolism; Z86.711 Personal history of pulmonary embolism
CPT/HCPCS: 36415; 71045; 80048; 82550; 82553; 82962; 83880; 84484; 85025; 85379; 85610; 85730; 93005; 93010; 96374; 99406; G0378; J2270; J2405; J3010

== ENCOUNTER 2018-11-05 17:35 | Inpatient (IN) | payer MEDICAID ==
[2018-11-05] MEDS ORDERED: ZOFRAN IV ONE (18:05)
[2018-11-05 18:28] LABS: Basophils # (Auto) 0.1 K/mm3 (0.0-0.1); Basophils % (Auto) 1.3 % (0.0-1.8); Eosinophils # (Auto) 0.1 K/mm3 (0.0-0.4); Eosinophils % (Auto) 1.5 % (0.0-4.3); Hematocrit 33.9 % (35.5-45.6); Hemoglobin 10.5 gm/dl (11.8-15.2); Lymphocytes % (Auto) 12.4 % (13.4-35.0); Mean Corpuscular HGB Conc 31 % (32-34); Mean Corpuscular Volume 84 fl (84-94); Monocytes # (Auto) 0.7 K/mm3 (0.0-0.8); Monocytes % (Auto) 8.3 % (0.0-7.3); Platelet Count 311 K/mm3 (140-440); Red Blood Count 4.02 M/mm3 (3.65-5.03); Red Cell Distribution Width 18.6 % (13.2-15.2)
[2018-11-05] MEDS ORDERED: PROTONIX IV ONE ×2 (18:33→18:53)
[2018-11-05] MEDS ORDERED: DILAUDID IV ONE (18:34)
--- NOTE | 2018-11-05 18:35 | Emergency Department Report ---
ED GI Bleed HPI - General Chief complaint: GI Bleed Stated complaint: ABD PAIN N/V Time Seen by Provider: 11/05/18 18:07 Source: patient, EMS, old records reviewed Mode of arrival: Stretcher Limitations: No Limitations - History of Present Illness Initial comments: 47-year-old male with a past medical history nonischemic cardiomyopathy the EF of 10-15%, PE , V. tach, paroxysmal atrial fibrillation, severe pulmonary hypertension, hypertension, type 2 diabetes, esophageal varices, sleep apnea, and obesity presents to the hospital complains of epigastric, chest pain, and vomiting blood since this afternoon. Symptoms started about 4 PM. Patient comp lains of sharp epigastric pain radiating to the chest that is intermittent, worse with palpation, movement, and inspiration. Patient had 2 episodes of vomiting. Initial episodes of coffee ground emesis followed by vomiting bright red blood. Patient states he is constipated but denies melena or hematochezia. Patient has had similar symptoms in the past and was admitted September, had endoscopy, and had diagnosis of esophageal varices that was treated with banding. Patient cannot afford the prescribed Protonix because it is not covered by his insurance and integument is taking Zantac. He is currently off of Eliquis, isosorbide, and hydralazine but does take an aspirin 325 mg daily. He continues to take Percocet daily for chronic back pain. Severity scale (0 -10): 10 - Related Data Home Medications Medication Instructions Recorded Confirmed Last Taken Ferrous Sulfate [Feosol 325 MG tab] 325 mg PO BID 05/19/15 11/05/18 10/25/18 Magnesium Oxide 400 mg PO DAILY 08/31/16 11/05/18 10/25/18 glipiZIDE [Glucotrol] 10 mg PO QDAY 03/16/17 11/05/18 10/25/18 Allopurinol 100 mg PO BID 09/05/17 11/05/18 10/25/18 Digoxin 125 mcg PO DAILY 10/14/17 11/05/18 10/25/18 Aspirin [Aspirin TAB] 325 mg PO QDAY 03/29/18 11/05/18 10/25/18 Spironolactone [Aldactone] 50 mg PO QDAY 03/29/18 11/05/18 10/25/18 Insulin Glargine,Hum.rec.anlog 20 unit SQ HS 09/29/18 11/05/18 10/24/18 [Lantus] Lisinopril [Zestril TAB] 2.5 mg PO BID 11/05/18 11/05/18 Unknown Previous Rx's Medication Instructions Recorded Last Taken Type Carvedilol [Coreg] 25 mg PO BID #60 tablet 06/10/17 10/25/18 Rx Torsemide [Demadex] 100 mg PO QDAY #30 tablet 10/19/17 10/25/18 Rx Potassium Chloride [K-Dur] 20 meq PO BID #30 tablet 03/29/18 10/25/18 Rx Allergies Allergy/AdvReac Type Severity Reaction Status Date / Time cephalexin monohydrate AdvReac Hives Verified 05/17/18 21:55 [From Keflex] lidocaine AdvReac Hives Verified 05/17/18 21:55 mushrooms Allergy Anaphylaxis Uncoded 05/17/18 21:55 ED Review of Systems ROS: Stated complaint: ABD PAIN N/V Other details as noted in HPI Comment: All other systems reviewed and negative ED Past Medical Hx - Past Medical History Hx Hypertension: Yes Hx Heart Attack/AMI: No Hx Congestive Heart Failure: Yes (EF 15%, AICD placement) Hx Diabetes: Yes Hx Deep Vein Thrombosis: Yes Hx Pulmonary Embolism: Yes Hx Liver Disease: No Hx Renal Disease: Yes Hx Sickle Cell Disease: No Hx Arthritis: Yes Hx Asthma: Yes Hx COPD: Yes Hx Tuberculosis: No Hx HIV: No Additional medical history: sleep apnea. anemia. severe pulmonary HTN. atrial fibrillation treated with cardioversion 11/2017. Hx of VT/VF;. esophageal varices - Surgical History Past Surgical History?: Yes Hx Coronary Stent: No Hx Pacemaker: Yes Hx Internal Defibrillator: Yes (AICD) Hx Cholecystectomy: Yes Additional Surgical History: defibrillator, pacemaker; bands in stomach. - Social History Smoking Status: Current Some Day Smoker Substance Use Type: None - Medications Home Medications: Home Medications Medication Instructions Recorded Confirmed Last Taken Type Ferrous Sulfate [Feosol 325 MG tab] 325 mg PO BID 05/19/15 11/05/18 10/25/18 History Magnesium Oxide 400 mg PO DAILY 08/31/16 11/05/18 10/25/18 History glipiZIDE [Glucotrol] 10 mg PO QDAY 03/16/17 11/05/18 10/25/18 History Carvedilol [Coreg] 25 mg PO BID #60 tablet 06/10/17 11/05/18 10/25/18 Rx Allopurinol 100 mg PO BID 09/05/17 11/05/18 10/25/18 History Digoxin 125 mcg PO DAILY 10/14/17 11/05/18 10/25/18 History Torsemide [Demadex] 100 mg PO QDAY #30 tablet 10/19/17 11/05/18 10/25/18 Rx Aspirin [Aspirin TAB] 325 mg PO QDAY 03/29/18 11/05/18 10/25/18 History Potassium Chloride [K-Dur] 20 meq PO BID #30 tablet 03/29/18 11/05/18 10/25/18 Rx Spironolactone [Aldactone] 50 mg PO QDAY 03/29/18 11/05/18 10/25/18 History Insulin Glargine,Hum.rec.anlog 20 unit SQ HS 09/29/18 11/05/18 10/24/18 History [Lantus] Lisinopril [Zestril TAB] 2.5 mg PO BID 11/05/18 11/05/18 Unknown History ED Physical Exam - General Limitations: No Limitations - Other Other exam information: General: No limitations, patient is alert in no acute distress Head exam: Atraumatic, normocephalic Eyes exam: Normal appearance ENT: Moist mucous membrane, normal oropharynx Neck exam: Normal inspection, full range of motion, no meningismus nontender Respiratory exam: Clear to auscultation bilateral, no wheezes, rales, crackles Cardiovascular: Regular rhythm and rate Abdomen: Soft, nondistended, epigastric tenderness, with normal bowel sounds, no rebound, or guarding Rectal: Faintly guaiac positive brown stool without melena or hematochezia Extremity: Full range of motion normal inspection no deformity Back: Normal Inspection, full range of motion, no tenderness Neurologic: Alert, oriented x3, cranial nerves intact, no motor or sensory deficit Psychiatric: normal affect, normal mood Skin: Warm, dry, intact ED Course Vital Signs 11/05/18 11/05/18 11/05/18 17:48 17:50 17:58 Temperature 98.4 F 98.4 F Pulse Rate 69 71 Respiratory 20 20 Rate Blood Pressure 112/43 Blood Pressure 112/43 112/43 [Right] O2 Sat by Pulse 98 99 98 Oximetry 11/05/18 11/05/18 11/05/18 18:00 18:16 18:30 Temperature Pulse Rate 73 Respiratory 17 Rate Blood Pressure 126/56 121/67 Blood Pressure [Right] O2 Sat by Pulse 96 99 98 Oximetry 11/05/18 11/05/18 11/05/18 18:56 19:00 19:26 Temperature 98.6 F Pulse Rate 73 Respiratory 14 16 14 Rate Blood Pressure Blood Pressure 105/66 [Right] O2 Sat by Pulse 98 Oximetry - Consultations Consultation #1: 11/05/18 18:56 case d/w Dr Segal, will consult. NPO, Protonix and octeotride drip, monitor h/h, will likely scope tomorrow. ED Medical Decision Making - Lab Data Result diagrams: 11/05/18 18:10 11/05/18 18:10 Lab Results 11/05/18 11/05/18 11/05/18 Range/Units 18:00 18:10 18:10 WBC 8.0 (4.5-11.0) K/mm3 RBC 4.02 (3.65-5.03) M/mm3 Hgb 10.5 L (11.8-15.2) gm/dl Hct 33.9 L (35.5-45.6) % MCV 84 (84-94) fl MCH 26 L (28-32) pg MCHC 31 L (32-34) % RDW 18.6 H (13.2-15.2) % Plt Count 311 (140-440) K/mm3 Lymph % (Auto) 12.4 L (13.4-35.0) % [place] % (Auto) 8.3 H (0.0-7.3) % Eos % (Auto) 1.5 (0.0-4.3) % Baso % (Auto) 1.3 (0.0-1.8) % Lymph # 1.0 L (1.2-5.4) K/mm3 [place] # 0.7 (0.0-0.8) K/mm3 Eos # 0.1 (0.0-0.4) K/mm3 Baso # 0.1 (0.0-0.1) K/mm3 Seg Neutrophils % 76.5 H (40.0-70.0) % Seg Neutrophils # 6.1 (1.8-7.7) K/mm3 PT 15.2 H (12.2-14.9) Sec. INR 1.16 H (0.87-1.13) APTT 32.1 (24.2-36.6) Sec. Sodium (137-145) mmol/L Potassium (3.6-5.0) mmol/L Chloride (98-107) mmol/L Carbon Dioxide (22-30) mmol/L Anion Gap mmol/L BUN (9-20) mg/dL Creatinine (0.8-1.5) mg/dL Estimated GFR ml/min BUN/Creatinine Ratio % Glucose (75-100) mg/dL Calcium (8.4-10.2) mg/dL Total Bilirubin (0.1-1.2) mg/dL AST (5-40) units/L ALT (7-56) units/L Alkaline Phosphatase (35-129) units/L Troponin T < 0.010 (0.00-0.029) ng/mL Total Protein (6.3-8.2) g/dL Albumin (3.9-5) g/dL Albumin/Globulin Ratio % Blood Type Antibody Screen 11/05/18 11/05/18 Range/Units 18:10 18:15 WBC (4.5-11.0) K/mm3 RBC (3.65-5.03) M/mm3 Hgb (11.8-15.2) gm/dl Hct (35.5-45.6) % MCV (84-94) fl MCH (28-32) pg MCHC (32-34) % RDW (13.2-15.2) % Plt Count (140-440) K/mm3 Lymph % (Auto) (13.4-35.0) % [place] % (Auto) (0.0-7.3) % Eos % (Auto) (0.0-4.3) % Baso % (Auto) (0.0-1.8) % Lymph # (1.2-5.4) K/mm3 [place] # (0.0-0.8) K/mm3 Eos # (0.0-0.4) K/mm3 Baso # (0.0-0.1) K/mm3 Seg Neutrophils % (40.0-70.0) % Seg Neutrophils # (1.8-7.7) K/mm3 PT (12.2-14.9) Sec. INR (0.87-1.13) APTT (24.2-36.6) Sec. Sodium 138 (137-145) mmol/L Potassium 3.1 L (3.6-5.0) mmol/L Chloride 93.0 L (98-107) mmol/L Carbon Dioxide 33 H (22-30) mmol/L Anion Gap 15 mmol/L BUN 7 L (9-20) mg/dL Creatinine 1.2 (0.8-1.5) mg/dL Estimated GFR > 60 ml/min BUN/Creatinine Ratio 6 % Glucose 175 H (75-100) mg/dL Calcium 9.1 (8.4-10.2) mg/dL Total Bilirubin 0.60 (0.1-1.2) mg/dL AST 10 (5-40) units/L ALT 6 L (7-56) units/L Alkaline Phosphatase 70 (35-129) units/L Troponin T (0.00-0.029) ng/mL Total Protein 6.9 (6.3-8.2) g/dL Albumin 3.6 L (3.9-5) g/dL Albumin/Globulin Ratio 1.1 % Blood Type O POSITIVE Antibody Screen Negative - EKG Data -: EKG Interpreted by Me (a-sensed, v paced, rate 72,) EKG shows normal: axis (qrs -51), QRS complexes (qrsd 185) Rate: normal (72) - EKG Data When compared to previous EKG there are: no significant change - Radiology Data Radiology results: report reviewed FINAL REPORT EXAM: XR CHEST 1V AP HISTORY: vomiting blood TECHNIQUE: Frontal portable view of the chest Comparison: Chest x-ray dated October 25, [address] chest dated October 11, 2018 FINDINGS: There is bilateral hypoinflation. There is no evidence of focal infiltrate, pneumothorax or pleural fluid collection. There is a retrocardiac mass as was demonstrated on the previous chest x-ray and chest CT that appears to be associated with the gastroesophageal junction The cardiac silhouette appears to be enlarged with multiple lead AICD. The bony structures are unremarkable. Visualization detail of the thoracic spine is limited. IMPRESSION: 1. No evidence of an acute pulmonary process 2. Repeat demonstration of retrocardiac mass that appears to be associated with the gastroesophageal junction as was demonstrated on the previous chest CT. - Medical Decision Making H&H is improved compared to value 10 days ago. No signs of active bleeding in the ED. Case discussed with GI deportation examiner with plan to scope tomorrow. See consult note for recommendation. The patient will be admitted to the hospitalist service - Differential Diagnosis GI bleed, esophageal varices, PUD, anemia, and mild Critical Care Time: No Critical care attestation.: If time is entered above; I have spent that time in minutes in the direct care of this critically ill patient, excluding procedure time. ED Disposition Clinical Impression: Vomiting blood, Hx of esophageal varices, Cardiac defibrillator in place, Non- ischemic cardiomyopathy, Hypokalemia Disposition: DC-09 OP ADMIT IP TO THIS HOSP Is pt being admited?: Yes Condition: Stable Time of Disposition: 19:07 (Dr Garcia/hosp)
[2018-11-05 18:39] LABS: INR 1.16 (0.87-1.13)
[2018-11-05 18:40] LABS: Partial Thromboplastin Time 32.1 Sec. (24.2-36.6)
[2018-11-05 18:59] LABS: Alanine Aminotransferase 6 units/L (7-56); Albumin 3.6 g/dL (3.9-5); BUN/Creatinine Ratio 6; Blood Urea Nitrogen 7 mg/dL (9-20); Calcium 9.1 mg/dL (8.4-10.2); Hemolysis Index 7
[2018-11-05] MEDS ORDERED: SandoSTATIN 500 MCG in NACL 0.9% 100 ML IV ONE (20:00)
[2018-11-05] MEDS ORDERED: PROTONIX 80 MG in NACL 0.9% 100 ML IV SCH (20:00)
--- NOTE | 2018-11-05 20:05 | XRay Report ---
FINAL REPORT EXAM: XR CHEST 1V AP HISTORY: vomiting blood TECHNIQUE: Frontal portable view of the chest Comparison: Chest x-ray dated October 25, [address] chest dated October 11, 2018 FINDINGS: There is bilateral hypoinflation. There is no evidence of focal infiltrate, pneumothorax or pleural fluid collection. There is a retrocardiac mass as was demonstrated on the previous chest x-ray and chest CT that appear s to be associated with the gastroesophageal junction The cardiac silhouette appears to be enlarged with multiple lead AICD. The bony structures are unremarkable. Visualization detail of the thoracic spine is limited. IMPRESSION: 1. No evidence of an acute pulmonary process 2. Repeat demonstration of retrocardiac mass that appears to be associated with the gastroesophageal junction as was demonstrated on the previous chest CT.
[2018-11-05] MEDS ORDERED: ZOFRAN IV PRN (21:39)
[2018-11-05] MEDS ORDERED: TYLENOL PR PRN (21:40)
[2018-11-05] MEDS ORDERED: D50W (25GM) Syringe IV PRN (21:46)
[2018-11-05] MEDS: DILAUDID IV PRN (23:17)
[2018-11-05] MEDS: FEOSOL PO SCH (23:19)
[2018-11-05] MEDS: ZYLOPRIM PO SCH (23:19)
[2018-11-05] MEDS: HumuLIN R SUB-Q SCH (23:24)
[2018-11-05] MEDS: ZESTRIL PO SCH (23:28)
[2018-11-05] MEDS: COREG PO SCH (23:29)
[2018-11-06] MEDS ORDERED: NACL 0.9% 250ML 250 ML IV ONE (00:20)
[2018-11-06] MEDS: KCL 10MEQ/100ML 10 MEQ/100 ML BAG IV SCH ×8 (00:31→18:58)
[2018-11-06 00:53] LABS: Hematocrit 34.3 % (35.5-45.6); Hemoglobin 10.6 gm/dl (11.8-15.2)
[2018-11-06] MEDS: HumuLIN R SUB-Q SCH ×6 (02:32→21:26)
--- NOTE | 2018-11-06 06:33 | History and Physical Report ---
CHIEF COMPLAINT: Vomiting of blood. HISTORY OF PRESENTING ILLNESS: The patient is a 47-year-old male with known history of esophageal varices which was discovered less than a month ago after endoscopy in September 2018. The patient started having hematemesis some hours prior to presentation associated with epigastric pain and pain radiating to the chest. The patient's pain is affected by movement and inspiration. The patient had 2 episodes of hematemesis which started initially as coffee-ground emesis followed by bright red blood. The patient also said that he is constipated, but denied any history of melena or hematochezia. The patient said he could not afford the prescription of Protonix because it was not covered by his insurance and was taking Zantac. There is no history of shortness of breath and no history of chest pain and the patient presented for evaluation. PAST MEDICAL HISTORY: Pertinent for hypertension, congestive heart failure with ejection fraction of 15%, diabetes mellitus, deep vein thrombosis, pulmonary embolism, renal insufficiency, arthritis, asthma, COPD, sleep apnea, anemia, pulmonary hypertension, atrial fibrillation. Also, the patient has past history of ventricular tachycardia, esophageal varices. PAST SURGICAL HISTORY: Pertinent for pacemaker and AICD placement. Also, the patient has past surgical history of cholecystectomy and band surgery in the stomach. FAMILY HISTORY: Noncontributory. SOCIAL HISTORY: The patient smokes cigarettes. Does not drink alcohol and does not use illicit drugs. MEDICATIONS: The patient is on ferrous sulfate 325 mg by mouth daily, magnesium oxide 400 mg by mouth daily, glipizide 10 mg by mouth daily, Coreg 25 mg by mouth twice daily, allopurinol 100 mg by mouth daily, digoxin 125 mcg by mouth daily, torsemide 100 mg by mouth daily, aspirin 325 mg by mouth daily, potassium chloride 20 mEq by mouth twice daily, Aldactone 50 mg by mouth daily, Lantus insulin 20 units subcutaneous at bedtime, and lisinopril 2.5 mg by mouth daily. ALLERGIES: THE PATIENT IS ALLERGIC TO CEPHALEXIN, LIDOCAINE, AND MUSHROOM. REVIEW OF SYSTEMS: CONSTITUTIONAL: There is no fever, no chills, no diaphoresis. HEENT: There is no headache or sore throat. CARDIOVASCULAR SYSTEM: There is no chest pain or orthopnea. RESPIRATORY SYSTEM: There is no shortness of breath or cough. GASTROINTESTINAL SYSTEM: Epigastric abdominal pain present, hematemesis present. No melena, no hematochezia. Constipation noted. NEUROLOGICAL SYSTEM: There is no numbness, no dizziness, no altered mental status. MUSCULOSKELETAL SYSTEM: There is no joint pain or swelling. DERMATOLOGICAL SYSTEM: There is no skin rash or itching. GENITOURINARY SYSTEM: There is no dysuria, hematuria, or flank pain. Rest of system review is normal. PHYSICAL EXAMINATION: GENERAL: At the time of exam, the patient was found to be alert, oriented x 3, and not in acute distress. VITAL SIGNS: Show temperature of 98.4 degrees Fahrenheit, pulse of 69, respirations 20, blood pressure 112/43, O2 sat of 98% on room air. HEENT: Shows pupils to be equal, round, reactive to light and accommodation. Extraocular muscles are intact. NECK: Supple with no JVD or carotid bruit. CARDIOVASCULAR SYSTEM: Shows normal first and second heart sounds with no gallops or murmurs. RESPIRATORY SYSTEM: Shows good air entry on both sides of the lung with no abnormal breath sounds. GASTROINTESTINAL SYSTEM: Shows abdomen to be full, soft with epigastric tenderness with no rigidity, no rebound tenderness, and no organomegaly is elicited. The bowel sound is normal. NEUROLOGIC SYSTEM: Shows no focal deficits. MUSCULOSKELETAL SYSTEM: Shows no joint swelling or tenderness. DERMATOLOGIC SYSTEM: Shows no skin rash. GENITOURINARY SYSTEM: Shows no costovertebral angle tenderness. PERTINENT LABORATORY AND IMAGING STUDIES: The patient had chest x-ray done that shows no evidence of an acute pulmonary process. Repeat demonstration of retrocardiac mass that appears to be associated with gastroesophageal junction as well as demonstrated on the previous chest CT was found. The patient's lab results shows CBC with normal white count, low hemoglobin of 10.5, low hematocrit of 33.9 with CBC differential showing elevated monocyte count of 8.3. The patient's coagulation studies were unremarkable. The patient's chemistry showed low potassium level of 3.1 with low chloride of 93, and high CO2 of 33. DIAGNOSES: 1. Hematemesis. 2. History of esophageal varices. 3. Hypokalemia. PLAN OF ACTION: 1. The patient will be admitted to telemetry. 2. The patient will continue Gastroenterology consult with Dr. Colt Segal of [facility]. 3. The patient will have hemoglobin and hematocrit monitored every 6 hours x 3 more levels. 4. The patient will continue IV octreotide drip started in the Emergency Room. 5. The patient will remain n.p.o. until evaluated by the energy efficient site manager. 6. The patient will be on IV Dilaudid 0.5 mg every 3 hours as needed for pain. 7. The patient will be on Accu-Chek q. 4h. followed by low-dose sliding scale using Regular insulin coverage. 8. The patient will continue Protonix drip started in the Emergency Room. 9. The patient will be on IV Zofran 4 mg every 8 hours for nausea and vomiting. 10. The patient will be on his home medication as shown in the medication reconciliation section when he starts taking something by mouth. JOB# [id number] OCN/NTS
[2018-11-06 06:34] LABS: Hematocrit 31.6 % (35.5-45.6); Hemoglobin 9.9 gm/dl (11.8-15.2)
[2018-11-06] MEDS: COREG PO SCH ×2 (10:05→21:26)
[2018-11-06] MEDS: ZYLOPRIM PO SCH ×2 (10:05→21:26)
[2018-11-06] MEDS: ZESTRIL PO SCH ×2 (10:06→21:26)
[2018-11-06] MEDS: FEOSOL PO SCH ×2 (10:06→21:26)
--- NOTE | 2018-11-06 10:19 | Gastroenterology Consultation ---
Addendum entered and electronically signed by ALISA FREIRE MD 11/06/18 13:50: 47 yo male with multiple cardiac and pulmonary conditions, mainly NICM with EF 10-15%, BRITTON, VT/VF, Afib, and pulmonary HTN previously admitted in Sep 2018 for upper GI bleed and found to have esophageal mass vs varices here for one episode of hematemesis. Planned for EGD today but will need to reschedule due to hypokalemia. No further emesis since admission. - will plan for EGD tomorrow. NPO LUZ. Original Note: History of Present Illness - Reason for Consult Consult date: 11/06/18 vomiting blood Requesting physician: MICHAEL NORRIS - History of Present Illness Patient is a 47 y/o male with PMH of nonischemic cardiomyopathy (EF 10-15%), PE, BRITTON, VT/VF (s/p AICD), paroxysmal Afib (s/p cardioversion; currently off Eliquis), severe pulmonary hypertension, HTN, DM, sleep apnea, chronic obstructive pulmonary disease, and obesity who presented to ED with c/o vomiting blood with associated epigastric/CP to which GI has been consulted. Patient is previously known to our service from a prior hospitalization for similar symptoms in 09/2018. At that time, CT scan showed possible GE junction mass. He underwent an EGD on 10/11/18 that showed esophageal varices (2/2 portal htn?; no hx of liver disease, LFTs WNL and liver normal on CT) with active bleeding which required banding with underlying mass/lesion unable to be excluded (path showed inflammation but was not adequate). He was discharged home with recommendations to follow up in clinic for repeat EGD in ~2 weeks which he has not done. This morning patient was resting in bed w/o acute distress. Reports vomiting x 2 episodes yesterday with emesis at first being black in color and then turned to bright red blood with second episode. No further episodes of N/V or active signs of bleeding overnight or this morning. No melena or hematochezia. Admits to approximately a 10lb wt loss and continuous substernal/epigastric pain since last admission. Denies fever, SOB, dizziness, dysphagia, odynophagia, or LGI symptoms. Takes daily ASA. Has not been taking PPI at home due to cost. Past History Past Medical History: other (as per HPI) Past Surgical History: cholecystectomy, Other (cardioversion 11/2017, s/p AICD, EGD 09/2018 with esophageal banding) Social history: smoking Medications and Allergies Allergies Allergy/AdvReac Type Severity Reaction Status Date / Time cephalexin monohydrate AdvReac Hives Verified 05/17/18 21:55 [From Keflex] lidocaine AdvReac Hives Verified 05/17/18 21:55 mushrooms Allergy Anaphylaxis Uncoded 05/17/18 21:55 Home Medications Medication Instructions Recorded Confirmed Last Taken Type Ferrous Sulfate [Feosol 325 MG tab] 325 mg PO BID 05/19/15 11/05/18 10/25/18 History Magnesium Oxide 400 mg PO DAILY 08/31/16 11/05/18 10/25/18 History glipiZIDE [Glucotrol] 10 mg PO QDAY 03/16/17 11/05/18 10/25/18 History Carvedilol [Coreg] 25 mg PO BID #60 tablet 06/10/17 11/05/18 10/25/18 Rx Allopurinol 100 mg PO BID 09/05/17 11/05/18 10/25/18 History Digoxin 125 mcg PO DAILY 10/14/17 11/05/18 10/25/18 History Torsemide [Demadex] 100 mg PO QDAY #30 tablet 10/19/17 11/05/18 10/25/18 Rx Aspirin [Aspirin TAB] 325 mg PO QDAY 03/29/18 11/05/18 10/25/18 History Potassium Chloride [K-Dur] 20 meq PO BID #30 tablet 03/29/18 11/05/18 10/25/18 Rx Spironolactone [Aldactone] 50 mg PO QDAY 03/29/18 11/05/18 10/25/18 History Insulin Glargine,Hum.rec.anlog 20 unit SQ HS 09/29/18 11/05/18 10/24/18 History [Lantus] Lisinopril [Zestril TAB] 2.5 mg PO BID 11/05/18 11/05/18 Unknown History Active Meds: Active Medications Acetaminophen (Tylenol) 650 mg [place] Q4H PRN PRN Reason: Pain, Mild (1-3) Allopurinol (Zyloprim) 100 mg PO BID [facility] Last Admin: 11/06/18 10:05 Dose: 100 mg Documented by: Carvedilol (Coreg) 25 mg PO BID [facility] Last Admin: 11/06/18 10:05 Dose: 25 mg Documented by: Dextrose (D50w (25gm) Syringe) 50 ml IV PRN PRN PRN Reason: Hypoglycemia Digoxin (Lanoxin) 0.125 mg PO DAILY@1700 ROBERT Ferrous Sulfate (Feosol) 325 mg PO BID [facility] Last Admin: 11/06/18 10:06 Dose: 325 mg Documented by: Hydromorphone HCl (Dilaudid) 0.5 mg IV Q3H PRN PRN Reason: Pain , Severe (7-10) Last Admin: 11/05/18 23:17 Dose: 0.5 mg Documented by: Octreotide Acetate 500 mcg/ (Sodium Chloride) 101 mls @ 5.05 mls/hr IV TITR ONE; Protocol Stop: 11/06/18 15:59 Last Admin: 11/05/18 21:07 Dose: 25 mcg/hr, 5.05 mls/hr Documented by: Pantoprazole Sodium 80 mg/ (Sodium Chloride) 100 mls @ 10 mls/hr IV DIRECT [facility] Last Admin: 11/05/18 19:51 Dose: 8 mg/hr, 10 mls/hr Documented by: Insulin Human Regular (Humulin R) 0 units SUB-Q Q4H [facility]; Protocol Last Admin: 11/06/18 06:40 Dose: 1 units Documented by: Lisinopril (Zestril) 2.5 mg PO BID [facility] Last Admin: 11/06/18 10:06 Dose: 2.5 mg Documented by: Ondansetron HCl (Zofran) 4 mg IV Q8H PRN PRN Reason: Nausea And Vomiting medications reviewed/updated as required Review of Systems - Review of Systems All systems: negative Constitutional: weight loss Gastrointestinal: abdominal pain (substernal/epigastic), nausea, vomiting, hematemesis, no melena, no hematochezia Exam - Constitutional Vital Signs: Temp Pulse Resp BP Pulse Ox 98.6 F 65 16 107/40 95 11/06/18 04:16 11/06/18 04:16 11/06/18 04:16 11/06/18 04:16 11/06/18 04:16 General appearance: no acute distress - EENT Eyes: PERRL, EOM intact ENT: hearing intact - Respiratory Respiratory: bilateral: diminished - Cardiovascular Rhythm: regular Heart Sounds: Present: S1 & S2 - Gastrointestinal General gastrointestinal: Present: soft, tender (epigastic), non-distended, normal bowel sounds - Neurologic Neurological: alert and oriented x3 - Labs CBC & Chem 7: 11/06/18 05:51 11/05/18 18:10 Lab Results: Laboratory Results - last 24 hr 11/05/18 11/05/18 11/05/18 18:00 18:10 18:10 WBC 8.0 RBC 4.02 Hgb 10.5 L Hct 33.9 L MCV 84 MCH 26 L MCHC 31 L RDW 18.6 H Plt Count 311 Lymph % (Auto) 12.4 L [place] % (Auto) 8.3 H Eos % (Auto) 1.5 Baso % (Auto) 1.3 Lymph # 1.0 L [place] # 0.7 Eos # 0.1 Baso # 0.1 Seg Neutrophils % 76.5 H Seg Neutrophils # 6.1 PT 15.2 H INR 1.16 H APTT 32.1 Sodium Potassium Chloride Carbon Dioxide Anion Gap BUN Creatinine Estimated GFR BUN/Creatinine Ratio Glucose POC Glucose Calcium Total Bilirubin AST ALT Alkaline Phosphatase Troponin T < 0.010 Total Protein Albumin Albumin/Globulin Ratio Blood Type Antibody Screen 11/05/18 11/05/18 11/05/18 18:10 18:15 22:53 WBC RBC Hgb Hct MCV MCH MCHC RDW Plt Count Lymph % (Auto) [place] % (Auto) Eos % (Auto) Baso % (Auto) Lymph # [place] # Eos # Baso # Seg Neutrophils % Seg Neutrophils # PT INR APTT Sodium 138 Potassium 3.1 L Chloride 93.0 L Carbon Dioxide 33 H Anion Gap 15 BUN 7 L Creatinine 1.2 Estimated GFR > 60 BUN/Creatinine Ratio 6 Glucose 175 H POC Glucose 52 L Calcium 9.1 Total Bilirubin 0.60 AST 10 ALT 6 L Alkaline Phosphatase 70 Troponin T Total Protein 6.9 Albumin 3.6 L Albumin/Globulin Ratio 1.1 Blood Type O POSITIVE Antibody Screen Negative 11/06/18 11/06/18 11/06/18 00:32 05:51 06:17 WBC RBC Hgb 10.6 L 9.9 L Hct 34.3 L 31.6 L MCV MCH MCHC RDW Plt Count Lymph % (Auto) [place] % (Auto) Eos % (Auto) Baso % (Auto) Lymph # [place] # Eos # Baso # Seg Neutrophils % Seg Neutrophils # PT INR APTT Sodium Potassium Chloride Carbon Dioxide Anion Gap BUN Creatinine Estimated GFR BUN/Creatinine Ratio Glucose POC Glucose 162 H Calcium Total Bilirubin AST ALT Alkaline Phosphatase Troponin T Total Protein Albumin Albumin/Globulin Ratio Blood Type Antibody Screen 11/06/18 10:15 WBC RBC Hgb Hct MCV MCH MCHC RDW Plt Count Lymph % (Auto) [place] % (Auto) Eos % (Auto) Baso % (Auto) Lymph # [place] # Eos # Baso # Seg Neutrophils % Seg Neutrophils # PT INR APTT Sodium Potassium Chloride Carbon Dioxide Anion Gap BUN Creatinine Estimated GFR BUN/Creatinine Ratio Glucose POC Glucose 90 Calcium Total Bilirubin AST ALT Alkaline Phosphatase Troponin T Total Protein Albumin Albumin/Globulin Ratio Blood Type Antibody Screen Assessment and Plan 1.UGI bleed/hematemesis 2.H/o esophageal varices 3.esophageal mass? 3.anemia -INR 1.16 -H/H 9.9/31.6 -continue to monitor H/H and transfuse as needed -hold blood thinning medications -CT 10/11/18- irregular soft tissue fullness at GE juction (suspicious for neoplasia) -CXR 11/05/18- retrocardiac mass that appears to be associated with GE junction as seen on previous CT -EGD 10/11/18 revealed 2-3 columns of large distal esophageal varices (2/2 portal htn; no hx of liver disease-LFTs WNL and liver normal on CT) with overlying blood clots and ulceration with active bleeding (banded x 3)- underlying mass lesion unable to be excluded to due inadequate visualization (path showed inflammation but was inadequate) -patient reports substernal/epigastric pain that has continued since last admission with 2 episodes of vomiting yesterday. Emesis with first episode was black in color and then became bright red blood with second episode- no further signs of bleeding overnight or this am- no melena or hematochezia -currently HD stable -etiology-possibly 2/2 varices vs esophageal mass vs other -will schedule for EGD today for further evaluation -keep NPO -continue octreotide and protonix drip -continue supportive care -will follow 4.paroxysmal Afib (s/p cardioversion; currently off Eliquis) 5.dilated nonischemic cardiomyopathy (EF 10-15%) 6.severe pulmonary hypertension 7.COPD 8.essential HTN 9.DM 10. obstructive sleep apnea 11.hx of VT/VF (s/p AICD)
[2018-11-06] MEDS: DILAUDID IV PRN ×2 (11:26→21:25)
--- NOTE | 2018-11-06 11:32 | Consultation ---
Addendum entered and electronically signed by OMID ALVARES MD 11/06/18 12:16: Patient seen and examined by me Concern for esophageal malignancy Plan per GI No new cardiac recommendations Original Note: History of Present Illness Consult date: 11/06/18 Consult reason: known to you, other (AICD discharge) History of present illness: Mr Carmona has a long standing history of Nonischemic Cardiomyopathy and has an indwelling cardiac defibrillator. In December of this 2017, he underwent a cardiac catheterization that revealed no significant coronary artery disease, ejection fraction 15%. He has a history of atrial flutter status post YARELY guided c ardioversion. He was recently treated with eliquis for oral anticoagulation but this has since been discontinued due to esophageal bleeding. Co-morbidities includes VT/VF, prior pulmonary embolism, COPD, BRITTON, HTN, severe pulmonary hypertension and obesity. Patient presents to this hospital with epigastic pain associated with nausea and vomiting blood. Of note, patient has had multiple hospital visits with similar complaints. Patient has been losing weight rapidly. A CT scan late September was suggestive for esophageal carcinoma. Patient denies chest pain and shortness of breath. He denies AICD discharge. His ECG shows a AV paced rhythm. Past History Social history: smoking Medications and Allergies Allergies Allergy/AdvReac Type Severity Reaction Status Date / Time cephalexin monohydrate AdvReac Hives Verified 05/17/18 21:55 [From Keflex] lidocaine AdvReac Hives Verified 05/17/18 21:55 mushrooms Allergy Anaphylaxis Uncoded 05/17/18 21:55 Home Medications Medication Instructions Recorded Confirmed Last Taken Type Ferrous Sulfate [Feosol 325 MG tab] 325 mg PO BID 05/19/15 11/05/18 10/25/18 History Magnesium Oxide 400 mg PO DAILY 08/31/16 11/05/18 10/25/18 History glipiZIDE [Glucotrol] 10 mg PO QDAY 03/16/17 11/05/18 10/25/18 History Carvedilol [Coreg] 25 mg PO BID #60 tablet 06/10/17 11/05/18 10/25/18 Rx Allopurinol 100 mg PO BID 09/05/17 11/05/18 10/25/18 History Digoxin 125 mcg PO DAILY 10/14/17 11/05/18 10/25/18 History Torsemide [Demadex] 100 mg PO QDAY #30 tablet 10/19/17 11/05/18 10/25/18 Rx Aspirin [Aspirin TAB] 325 mg PO QDAY 03/29/18 11/05/18 10/25/18 History Potassium Chloride [K-Dur] 20 meq PO BID #30 tablet 03/29/18 11/05/18 10/25/18 Rx Spironolactone [Aldactone] 50 mg PO QDAY 03/29/18 11/05/18 10/25/18 History Insulin Glargine,Hum.rec.anlog 20 unit SQ HS 09/29/18 11/05/18 10/24/18 History [Lantus] Lisinopril [Zestril TAB] 2.5 mg PO BID 11/05/18 11/05/18 Unknown History Active Meds: Active Medications Acetaminophen (Tylenol) 650 mg [place] Q4H PRN PRN Reason: Pain, Mild (1-3) Allopurinol (Zyloprim) 100 mg PO BID [facility] Last Admin: 11/06/18 10:05 Dose: 100 mg Documented by: Carvedilol (Coreg) 25 mg PO BID [facility] Last Admin: 11/06/18 10:05 Dose: 25 mg Documented by: Dextrose (D50w (25gm) Syringe) 50 ml IV PRN PRN PRN Reason: Hypoglycemia Digoxin (Lanoxin) 0.125 mg PO DAILY@1700 [facility]ERT Ferrous Sulfate (Feosol) 325 mg PO BID [facility] Last Admin: 11/06/18 10:06 Dose: 325 mg Documented by: Hydromorphone HCl (Dilaudid) 0.5 mg IV Q3H PRN PRN Reason: Pain , Severe (7-10) Last Admin: 11/05/18 23:17 Dose: 0.5 mg Documented by: Octreotide Acetate 500 mcg/ (Sodium Chloride) 101 mls @ 5.05 mls/hr IV TITR ONE; Protocol Stop: 11/06/18 15:59 Last Admin: 11/05/18 21:07 Dose: 25 mcg/hr, 5.05 mls/hr Documented by: Pantoprazole Sodium 80 mg/ (Sodium Chloride) 100 mls @ 10 mls/hr IV DIRECT [facility] Last Admin: 11/05/18 19:51 Dose: 8 mg/hr, 10 mls/hr Documented by: Insulin Human Regular (Humulin R) 0 units SUB-Q Q4H [facility]; Protocol Last Admin: 11/06/18 06:40 Dose: 1 units Documented by: Lisinopril (Zestril) 2.5 mg PO BID [facility] Last Admin: 11/06/18 10:06 Dose: 2.5 mg Documented by: Ondansetron HCl (Zofran) 4 mg IV Q8H PRN PRN Reason: Nausea And Vomiting Physical Examination Vital Signs Temp Pulse Resp BP Pulse Ox 98.4 F 69 20 112/43 98 11/05/18 17:48 11/05/18 17:48 11/05/18 17:48 11/05/18 17:48 11/05/18 17:48 General appearance: no acute distress HEENT: Positive: PERRL Cardiac: Positive: Other (AV paced) Lungs: Positive: Decreased Breath Sounds Neuro: Positive: Grossly Intact Extremities: Absent: edema Results 11/06/18 05:51 11/05/18 18:10 Cardiac Enzymes 11/05/18 Range/Units 18:10 AST 10 (5-40) units/L Coagulation 11/05/18 Range/Units 18:10 PT 15.2 H (12.2-14.9) Sec. INR 1.16 H (0.87-1.13) APTT 32.1 (24.2-36.6) Sec. CBC 11/05/18 11/06/18 11/06/18 Range/Units 18:10 00:32 05:51 WBC 8.0 (4.5-11.0) K/mm3 RBC 4.02 (3.65-5.03) M/mm3 Hgb 10.5 L 10.6 L 9.9 L (11.8-15.2) gm/dl Hct 33.9 L 34.3 L 31.6 L (35.5-45.6) % Plt Count 311 (140-440) K/mm3 Lymph # 1.0 L (1.2-5.4) K/mm3 [place] # 0.7 (0.0-0.8) K/mm3 Eos # 0.1 (0.0-0.4) K/mm3 Baso # 0.1 (0.0-0.1) K/mm3 Comprehensive Metabolic Panel 11/05/18 Range/Units 18:10 Sodium 138 (137-145) mmol/L Potassium 3.1 L (3.6-5.0) mmol/L Chloride 93.0 L (98-107) mmol/L Carbon Dioxide 33 H (22-30) mmol/L BUN 7 L (9-20) mg/dL Creatinine 1.2 (0.8-1.5) mg/dL Glucose 175 H (75-100) mg/dL Calcium 9.1 (8.4-10.2) mg/dL AST 10 (5-40) units/L ALT 6 L (7-56) units/L Alkaline Phosphatase 70 (35-129) units/L Total Protein 6.9 (6.3-8.2) g/dL Albumin 3.6 L (3.9-5) g/dL Assessment and Plan UGI bleed recent EGD with banding of esophageal varices CT scan September 2018 was suggestive for esophageal carcinoma. Paroxysmal Afib s/p TTT/cardioversion 11/2017 on digoxin and coreg as an outpatient for suppression. 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
[2018-11-06] MEDS ORDERED: WATER FOR IRRIG STERILE IR ONE (12:00)
[2018-11-06] MEDS ORDERED: AFLURIA QUAD 2018-2019 SYRINGE IM ONE (12:00)
[2018-11-06] MEDS ORDERED: KETALAR ONE (12:47)
[2018-11-06] MEDS ORDERED: NACL 0.9% 1000 ML 1,000 ML IV SCH (13:00)
[2018-11-06] MEDS ORDERED: AMIDATE IV ONE (13:25)
[2018-11-06] MEDS ORDERED: SUBLIMAZE ONE (13:25)
[2018-11-06] MEDS ORDERED: SandoSTATIN 500 MCG in NACL 0.9% 100 ML IV SCH (14:00)
[2018-11-06] MEDS: LANOXIN PO SCH (16:25)
--- NOTE | 2018-11-06 17:37 | Progress Note ---
Assessment and Plan Assessment and plan: 47-year-old male with past medical history significant for nonischemic cardiomyopathy ejection fraction of 10-15%, atrial flutter, history of V. tach, sleep apnea or side, morbid obesity, esophageal varices bleeding presented to the emergency department his complaints of vomiting of blood Bleeding esophageal varices - Continue episodes of vomiting of blood - Slight decrease in H&H, patient doesn't need transfusion - Continue to monitor - GI was consulted and the plan is to do EGD this morning but consulted due to hypokalemia Nonischemic cardiomyopathy, a.flutter, v.tach - Patient didn't have any chest pain - No leg swelling - Cardiology consult - Patient was off eliquis during previous admissions Hypokalemia - Repleted - We'll check potassium BRITTON - Continue CPAP DVT prophylaxis - SCDs Disposition - Continue inpatient care. History Interval history: Patient was seen and evaluated this morning, patient is complaining epigastric pain. Patient is supposed to have EGD today Hospitalist Physical - Physical exam Narrative exam: Not in cardiopulmonary distress. The patient is morbidly obese. Vital signs as documented. Head exam is unremarkable. No scleral icterus . Neck is without jugular venous distension, thyromegaly, or carotid bruits. Lungs are clear to auscultation. Cardiac exam reveals regular rate and Rhythm. Abdominal exam reveals normal bowel sounds, no masses, no organomegaly and no aortic enlargement. Extremities are nonedematous and both femoral and pedal pulses are normal. POLICE BOOKING OFFICER: Alert and oriented 3. No focal weakness. - Constitutional Vitals: Temp Pulse Resp BP Pulse Ox 98.6 F 74 20 103/65 97 11/06/18 07:50 11/06/18 16:25 11/06/18 07:50 11/06/18 07:50 11/06/18 07:50 General appearance: Present: no acute distress Results - Labs CBC & Chem 7: 11/06/18 05:51 11/06/18 10:20 Labs: Laboratory Last Values WBC 8.0 K/mm3 (4.5-11.0) 11/05/18 18:10 RBC 4.02 M/mm3 (3.65-5.03) 11/05/18 18:10 Hgb 9.9 gm/dl (11.8-15.2) L 11/06/18 05:51 Hct 31.6 % (35.5-45.6) L 11/06/18 05:51 MCV 84 fl (84-94) 11/05/18 18:10 MCH 26 pg (28-32) L 11/05/18 18:10 MCHC 31 % (32-34) L 11/05/18 18:10 RDW 18.6 % (13.2-15.2) H 11/05/18 18:10 Plt Count 311 K/mm3 (140-440) 11/05/18 18:10 Lymph % (Auto) 12.4 % (13.4-35.0) L 11/05/18 18:10 [place] % (Auto) 8.3 % (0.0-7.3) H 11/05/18 18:10 Eos % (Auto) 1.5 % (0.0-4.3) 11/05/18 18:10 Baso % (Auto) 1.3 % (0.0-1.8) 11/05/18 18:10 Lymph # 1.0 K/mm3 (1.2-5.4) L 11/05/18 18:10 [place] # 0.7 K/mm3 (0.0-0.8) 11/05/18 18:10 Eos # 0.1 K/mm3 (0.0-0.4) 11/05/18 18:10 Baso # 0.1 K/mm3 (0.0-0.1) 11/05/18 18:10 Seg Neutrophils % 76.5 % (40.0-70.0) H 11/05/18 18:10 Seg Neutrophils # 6.1 K/mm3 (1.8-7.7) 11/05/18 18:10 PT 15.2 Sec. (12.2-14.9) H 11/05/18 18:10 INR 1.16 (0.87-1.13) H 11/05/18 18:10 APTT 32.1 Sec. (24.2-36.6) 11/05/18 18:10 Sodium 139 mmol/L (137-145) 11/06/18 10:20 Potassium 2.9 mmol/L (3.6-5.0) L* 11/06/18 10:20 Chloride 92.3 mmol/L (98-107) L 11/06/18 10:20 Carbon Dioxide 33 mmol/L (22-30) H 11/06/18 10:20 Anion Gap 17 mmol/L 11/06/18 10:20 BUN 6 mg/dL (9-20) L 11/06/18 10:20 Creatinine 1.4 mg/dL (0.8-1.5) 11/06/18 10:20 Estimated GFR 54 ml/min 11/06/18 10:20 BUN/Creatinine Ratio 4 % 11/06/18 10:20 Glucose 91 mg/dL (75-100) 11/06/18 10:20 POC Glucose 102 (70-105) 11/06/18 12:06 Calcium 9.0 mg/dL (8.4-10.2) 11/06/18 10:20 Total Bilirubin 0.60 mg/dL (0.1-1.2) 11/05/18 18:10 AST 10 units/L (5-40) 11/05/18 18:10 ALT 6 units/L (7-56) L 11/05/18 18:10 Alkaline Phosphatase 70 units/L (35-129) 11/05/18 18:10 Troponin T < 0.010 ng/mL (0.00-0.029) 11/05/18 18:00 Total Protein 6.9 g/dL (6.3-8.2) 11/05/18 18:10 Albumin 3.6 g/dL (3.9-5) L 11/05/18 18:10 Albumin/Globulin Ratio 1.1 % 11/05/18 18:10 Blood Type O POSITIVE 11/05/18 18:15 Antibody Screen Negative 11/05/18 18:15
[2018-11-06 18:34] LABS: Hematocrit 33.5 % (35.5-45.6); Hemoglobin 10.4 gm/dl (11.8-15.2)
[2018-11-07 01:12] LABS: Hematocrit 30.9 % (35.5-45.6); Hemoglobin 9.8 gm/dl (11.8-15.2)
[2018-11-07 09:23] LABS: Hematocrit 33.1 % (35.5-45.6); Hemoglobin 10.1 gm/dl (11.8-15.2)
[2018-11-07 09:35] LABS: BUN/Creatinine Ratio 5; Blood Urea Nitrogen 6 mg/dL (9-20); Hemolysis Index 10
[2018-11-07] MEDS: HumuLIN R SUB-Q SCH ×4 (10:00→20:40)
--- NOTE | 2018-11-07 10:16 | Anesthesia Day of Surgery ---
Anesthesia Day of Surgery - Day of Surgery Patient Examined: Yes Patient H&P Reviewed: Yes Patient is NPO: Yes
--- NOTE | 2018-11-07 10:17 | Anesthesia Consultation ---
Anesthesia Consult and Med Hx Date of service: 11/07/18 - Airway Anesthetic Teeth Evaluation: Poor ROM Head & Neck: Adequate Mental/Hyoid Distance: Adequate Mallampati Class: Class II Intubation Access Assessment: Probably Good - Pre-Operative Health Status ASA Pre-Surgery Classification: ASA4 Proposed Anesthetic Plan: MAC - Pulmonary Hx Smoking: Yes Hx Asthma: Yes SOB: Yes COPD: Yes Hx Pneumonia: No Hx Sleep Apnea: Yes - Cardiovascular System Hx Hypertension: Yes Hx Coronary Artery Disease: Yes Hx Heart Attack/AMI: No Hx Angina: Yes Hx Percutaneous Transluminal Coronary Angioplasty (PTCA): No Hx Cardia Arrhythmia: Yes (h/o AFIB in NSR with sotolol, h/o VF) Hx Pacemaker: Yes Hx Internal Defibrillator: Yes (AICD) Hx Valvular Heart Disease: No Hx Heart Murmur: No Hx Peripheral Vascular Disease: No - Central Nervous System Hx Neuromuscular Disorder: (Gout) Hx Psychiatric Problems: No - Gastrointestinal Hx Ulcer: Yes - Endocrine Hx Renal Disease: Yes Hx End Stage Renal Disease: No Hx Liver Disease: No Hx Insulin Dependent Diabetes: Yes Hx Hypothyroidism: No Hx Hyperthyroidism: No - Hematic Hx Anemia: Yes Hx Sickle Cell Disease: No - Other Systems Hx Cancer: No Hx Obesity: Yes (BMI 39.2)
[2018-11-07] MEDS ORDERED: SUBLIMAZE ONE (10:21)
[2018-11-07] MEDS ORDERED: WATER FOR IRRIG STERILE IR ONE (11:00)
--- NOTE | 2018-11-07 11:02 | Operative Report ---
Operative Report Operative Report: Esophagogastroduodenoscopy Procedure Note Date of procedure: 11/07/2018 Endoscopist: Reji Melendez Pre-op diagnosis: UGI bleed, hematemesis Post-op diagnosis: ulcerated friable circumferential esophageal mass s/p biopsies. Anesthesia: MAC Complications: No immediate complications Estimated blood loss: minimal Procedure: After consent was obtained, the patient was placed in the left lateral decubitus position. The fujinon endoscope was inserted into the patient's mouth under direct vision, and advanced into the 2nd portion of the duodenum without difficulty. The patient tolerated the procedure well. The views of the mucosa were good. Patient's vital signs were monitored continuously throughout the procedure. Findings: There was ulcerated friable circumferential mass from 37 cm to 43 cm at the GE junction surrounding about 75% of the circumference. No obvious signs of esophageal varices noted on today's exam. Multiple biopsies obtained. Normal findings in the stomach without signs signs of gastric ulcer and erosions. Normal findings on retroflexion view of cardia and fundus except for the esophageal mass extension. Normal duodenum findings in the bulb, 2nd and 3rd portion. Impression: 1. Ulcerated friable circumferential mass from 37 cm to 43 cm at the GE junction surrounding about 75% of the circumference. No obvious signs of esophageal varices noted on today's exam. Multiple biopsies were obtained. Recommendations: 1. Monitor H/H. 2. Will consult oncology. 3. Can start diet. 4. Continue with PPI.
--- NOTE | 2018-11-07 11:57 | Progress Note ---
Addendum entered and electronically signed by SHO ORTEZ MD 11/07/18 17:01: Medical therapy for nonischemic cardiomyopathy, paroxysmal atrial fibrillation, chronic systolic heart failure. Patient is currently undergoing further evaluation an esophageal mass. Original Note: Assessment and Plan UGI bleed recent EGD with banding of esophageal varices CT scan September 2018 was suggestive for esophageal carcinoma. Paroxysmal Afib s/p TTT/cardioversion 11/2017 on digoxin and coreg as an outpatient for suppression. oral anticoagulation discontinued due to prior GI bleed Dilated nonischemic cardiomyopathy, EF 10-15% Cath 12/2017 - mild non-obstructive coronary artery disease Chronic obstructive pulmonary disease Severe Pulmonary Hypertension Essential hypertension Type 2 diabetes mellitus Obstructive sleep apnea Presence of FINANCE BUSINESS PARTNER-ICD (Medtronic) normal functioning device on interrogation this presentation. No appropriate or inappropriate discharge. Hx of VT/VF Medical management for paroxysmal Afib and nonischemic cardiomyopathy as tolerated. Subjective Date of service: 11/07/18 Interval history: EGD postponed yesterday due to hypokalemia and has been rescheduled for today. Patient has no cardiac complaints. Objective Vital Signs Temp Pulse Resp BP Pulse Ox 11/07/18 11:15 70 12 123/67 96 11/07/18 11:00 70 13 124/62 96 11/07/18 10:45 98 F 69 10 L 144/60 97 11/07/18 09:50 98.5 F 73 17 130/74 93 11/07/18 04:13 98.0 F 67 17 100/62 96 11/07/18 01:06 98.1 F 62 17 109/65 97 11/06/18 21:00 70 11/06/18 20:45 98.4 F 72 17 113/39 98 11/06/18 17:36 98.3 F 70 18 116/73 98 11/06/18 16:25 74 11/06/18 14:34 98.2 F 18 - Physical Examination General: No Apparent Distress HEENT: Positive: PERRL Cardiac: Positive: Other (AV paced) Neuro: Positive: Grossly Intact Extremities: Absent: edema - Labs and Meds CBC 11/06/18 11/07/18 11/07/18 Range/Units 17:50 00:54 08:45 Hgb 10.4 L 9.8 L 10.1 L (11.8-15.2) gm/dl Hct 33.5 L 30.9 L 33.1 L (35.5-45.6) % Comprehensive Metabolic Panel 11/06/18 11/06/18 11/07/18 Range/Units 10:20 17:50 09:04 Sodium 139 136 L (137-145) mmol/L Potassium 2.9 L* 3.5 L D 3.3 L (3.6-5.0) mmol/L Chloride 92.3 L 94.2 L (98-107) mmol/L Carbon Dioxide 33 H 32 H (22-30) mmol/L BUN 6 L 6 L (9-20) mg/dL Creatinine 1.4 1.1 (0.8-1.5) mg/dL Glucose 91 94 (75-100) mg/dL Calcium 9.0 9.0 (8.4-10.2) mg/dL
[2018-11-07] MEDS ORDERED: NACL 0.9% 1000 ML 1,000 ML IV SCH (12:00)
[2018-11-07] MEDS: ZYLOPRIM PO SCH ×2 (13:10→22:03)
[2018-11-07] MEDS: COREG PO SCH ×2 (13:10→22:03)
[2018-11-07] MEDS: ZESTRIL PO SCH ×2 (13:10→22:02)
[2018-11-07] MEDS: FEOSOL PO SCH ×2 (13:10→22:02)
[2018-11-07] MEDS: DILAUDID IV PRN ×2 (13:11→22:11)
[2018-11-07] MEDS ORDERED: NACL 0.9% 1000 ML 1,000 ML ONE (14:46)
--- NOTE | 2018-11-07 15:35 | Progress Note ---
Assessment and Plan Assessment and plan: 47-year-old male with past medical history significant for nonischemic cardiomyopathy ejection fraction of 10-15%, atrial flutter, history of V. tach, sleep apnea or side, morbid obesity, esophageal varices bleeding presented to the emergency department his complaints of vomiting of blood Bleeding esophageal varices - Patient didn't have any varices on EGD, there is friable mass on the GE junction and it looks like cancer, GI consulted oncology. - Biopsy was taken - Slight decrease in H&H, patient doesn't need transfusion - Continue to monitor Nonischemic cardiomyopathy, a.flutter, v.tach - Patient didn't have any chest pain - No leg swelling - Cardiology consult - Patient was off eliquis during previous admissions Hypokalemia - Repleted - We'll check potassium BR[place] - Continue CPAP DVT prophylaxis - SCDs Disposition - Continue inpatient care. History Interval history: Patient was seen and evaluated this morning, patient is complaining epigastric p ain. Patient had EGD this morning. Hospitalist Physical - Physical exam Narrative exam: Not in cardiopulmonary distress. The patient is morbidly obese. Vital signs as documented. Head exam is unremarkable. No scleral icterus . Neck is without jugular venous distension, thyromegaly, or carotid bruits. Lungs are clear to auscultation. Cardiac exam reveals regular rate and Rhythm. Abdominal exam reveals normal bowel sounds, no masses, no organomegaly and no aortic enlargement. Extremities are nonedematous and both femoral and pedal pulses are normal. FOUNDATION COORDINATOR: Alert and oriented 3. No focal weakness. - Constitutional Vitals: Temp Pulse Resp BP Pulse Ox 98.5 F 73 20 122/73 97 11/07/18 12:54 11/07/18 12:54 11/07/18 12:54 11/07/18 12:54 11/07/18 12:54 General appearance: Present: no acute distress Results - Labs CBC & Chem 7: 11/07/18 08:45 11/07/18 09:04 Labs: Laboratory Last Values WBC 8.0 K/mm3 (4.5-11.0) 11/05/18 18:10 RBC 4.02 M/mm3 (3.65-5.03) 11/05/18 18:10 Hgb 10.1 gm/dl (11.8-15.2) L 11/07/18 08:45 Hct 33.1 % (35.5-45.6) L 11/07/18 08:45 MCV 84 fl (84-94) 11/05/18 18:10 MCH 26 pg (28-32) L 11/05/18 18:10 MCHC 31 % (32-34) L 11/05/18 18:10 RDW 18.6 % (13.2-15.2) H 11/05/18 18:10 Plt Count 311 K/mm3 (140-440) 11/05/18 18:10 Lymph % (Auto) 12.4 % (13.4-35.0) L 11/05/18 18:10 [place] % (Auto) 8.3 % (0.0-7.3) H 11/05/18 18:10 Eos % (Auto) 1.5 % (0.0-4.3) 11/05/18 18:10 Baso % (Auto) 1.3 % (0.0-1.8) 11/05/18 18:10 Lymph # 1.0 K/mm3 (1.2-5.4) L 11/05/18 18:10 [place] # 0.7 K/mm3 (0.0-0.8) 11/05/18 18:10 Eos # 0.1 K/mm3 (0.0-0.4) 11/05/18 18:10 Baso # 0.1 K/mm3 (0.0-0.1) 11/05/18 18:10 Seg Neutrophils % 76.5 % (40.0-70.0) H 11/05/18 18:10 Seg Neutrophils # 6.1 K/mm3 (1.8-7.7) 11/05/18 18:10 PT 15.2 Sec. (12.2-14.9) H 11/05/18 18:10 INR 1.16 (0.87-1.13) H 11/05/18 18:10 APTT 32.1 Sec. (24.2-36.6) 11/05/18 18:10 Sodium 136 mmol/L (137-145) L 11/07/18 09:04 Potassium 3.3 mmol/L (3.6-5.0) L 11/07/18 09:04 Chloride 94.2 mmol/L (98-107) L 11/07/18 09:04 Carbon Dioxide 32 mmol/L (22-30) H 11/07/18 09:04 Anion Gap 13 mmol/L 11/07/18 09:04 BUN 6 mg/dL (9-20) L 11/07/18 09:04 Creatinine 1.1 mg/dL (0.8-1.5) 11/07/18 09:04 Estimated GFR > 60 ml/min 11/07/18 09:04 BUN/Creatinine Ratio 5 % 11/07/18 09:04 Glucose 94 mg/dL (75-100) 11/07/18 09:04 POC Glucose 80 (70-105) 11/07/18 06:22 Calcium 9.0 mg/dL (8.4-10.2) 11/07/18 09:04 Total Bilirubin 0.60 mg/dL (0.1-1.2) 11/05/18 18:10 AST 10 units/L (5-40) 11/05/18 18:10 ALT 6 units/L (7-56) L 11/05/18 18:10 Alkaline Phosphatase 70 units/L (35-129) 11/05/18 18:10 Troponin T < 0.010 ng/mL (0.00-0.029) 11/05/18 18:00 Total Protein 6.9 g/dL (6.3-8.2) 11/05/18 18:10 Albumin 3.6 g/dL (3.9-5) L 11/05/18 18:10 Albumin/Globulin Ratio 1.1 % 11/05/18 18:10 Blood Type O POSITIVE 11/05/18 18:15 Antibody Screen Negative 11/05/18 18:15
[2018-11-07] MEDS: KCL 10MEQ/100ML 10 MEQ/100 ML BAG IV SCH ×4 (17:38→22:05)
[2018-11-07] MEDS ORDERED: NACL 0.9% 500 ML 500 ML ONE (17:43)
[2018-11-07 18:38] LABS: Hematocrit 31.3 % (35.5-45.6); Hemoglobin 9.9 gm/dl (11.8-15.2)
[2018-11-07] MEDS: LANOXIN PO SCH (19:44)
--- NOTE | 2018-11-07 21:51 | Event Note ---
Date: 11/07/18 [id number]
--- NOTE | 2018-11-07 23:12 | Consultation ---
REFERRING PHYSICIAN: REASON FOR CONSULTATION: Esophageal cancer. HISTORY OF PRESENT ILLNESS: I saw the patient a 47-year-old male with history of esophageal varices based on the endoscope in September 2018. He came to the hospital because of hematemesis, chest pain, and abdomen pain. He has not been able to eat solid food. He has been on liquid diet. During this admission, the patient has been seen by GI team. Endoscopy showed esophageal neoplasm and Radiology mentions lymphadenopathy. I have been asked to evaluate the patient. Surgical team has been consulted. At this time, no headache, no visual disturbances. No ear discharge. Has history of chest pain, has history of abdominal pain, history of hematemesis. No seizure or syncope. PAST MEDICAL HISTORY: Hypertension, CHF with ejection fraction of 15%, diabetes, history of DVT, PE, renal insufficiency, sleep apnea, anemia, pulmonary hypertension, atrial fibrillation, history of VT, and esophageal varices. PAST SURGICAL HISTORY: Important for pacemaker and AICD and gallbladder surgery and band surgery in the stomach. FAMILY HISTORY: Noncontributory. SOCIAL HISTORY: History of cigarette smoking present. No history of active alcohol usage. ALLERGIES: CEPHALEXIN, LIDOCAINE, MUSHROOMS. PRESENT MEDICATIONS: Include Tylenol, allopurinol, carvedilol, lisinopril. PHYSICAL EXAMINATION: VITAL SIGNS: Temperature 98, pulse 69, respirations 18, BP 114/62. GENERAL: Obese male. History of chest pain present. History of abdominal pain present. History of loss of weight present. HEENT: No pallor, no icterus. NECK: No neck lymph nodes. HEART: S1, S2. LUNGS: Clear to auscultation. ABDOMEN: Soft. EXTREMITIES: No calf tenderness. NEUROLOGIC: Alert, awake, oriented. LABORATORY DATA: Hemoglobin 9.9, MCV 84, white cell 8, platelet 311. Potassium 2.9, creatinine 1.2, bilirubin 0.6. RADIOLOGY: Chest x-ray was done. EGD was done. I do not have a report and the pathology. On 10/11/2018, EGD showed fragment of fibrinous debris. At that time, a questionable GE junction mass was mentioned. The specimen was not adequate. ASSESSMENT AND PLAN: 1. Based on the information available esophageal mass. 2. Mention of lymph nodes. 3. History of varices. 4. History of hematemesis. 5. History of congestive heart failure with low ejection fraction of 15%. 6. History of diabetes. 7. History of deep venous thrombosis and pulmonary embolism. 8. History of sleep apnea. 9. History of ventricular tachycardia and esophageal varices. 10. Surgical history as mentioned band surgery for stomach. We will await final pathology. Surgical team evaluation will guide if he is not a surgical candidate. He has lost weight secondary to inability to eat solid food. JOB# [id number] NM/NTS
[2018-11-08 04:21] LABS: Hematocrit 30.3 % (35.5-45.6); Hemoglobin 9.6 gm/dl (11.8-15.2)
[2018-11-08 04:50] LABS: Creatine Kinase MB < 1.0 ng/mL (0.0-4.0)
[2018-11-08 05:14] LABS: BUN/Creatinine Ratio 6; Blood Urea Nitrogen 6 mg/dL (9-20); Calcium 8.7 mg/dL (8.4-10.2); Hemolysis Index 3
[2018-11-08] MEDS: HumuLIN R SUB-Q SCH ×5 (06:45→22:30)
[2018-11-08] MEDS: KCL 10MEQ/100ML 10 MEQ/100 ML BAG IV SCH ×4 (08:46→12:24)
[2018-11-08] MEDS: FEOSOL PO SCH ×2 (09:48→22:19)
[2018-11-08] MEDS: ZYLOPRIM PO SCH ×2 (09:48→22:19)
[2018-11-08] MEDS: COREG PO SCH ×2 (09:48→22:19)
[2018-11-08] MEDS: ZESTRIL PO SCH ×2 (09:48→22:18)
[2018-11-08] MEDS: DILAUDID IV PRN ×2 (09:56→22:24)
--- NOTE | 2018-11-08 09:59 | Progress Note ---
Addendum entered and electronically signed by SHO ORTEZ MD 11/08/18 11:01: Workup is in progress by gastroenterology, oncology and surgery for further evaluation and management of an esophageal mass. Original Note: Assessment and Plan UGI bleed recent EGD with banding of esophageal varices CT scan September 2018 was suggestive for esophageal carcinoma. Paroxysmal Afib s/p TTT/cardioversion 11/2017 on digoxin and coreg as an outpatient for suppression. oral anticoagulation discontinued due to prior GI bleed Dilated nonischemic cardiomyopathy, EF 10-15% Cath 12/2017 - mild non-obstructive coronary artery disease Chronic obstructive pulmonary disease Severe Pulmonary Hypertension Essential hypertension Type 2 diabetes mellitus Obstructive sleep apnea Presence of FRIT MAKER-ICD (Medtronic) normal functioning device on interrogation this presentation. No appropriate or inappropriate discharge. Hx of VT/VF Continue medical management for paroxysmal Afib and nonischemic cardiomyopathy as tolerated. Subjective Date of service: 11/08/18 Interval history: Patient is resting in bed comfortably. Objective Vital Signs Temp Pulse Resp BP Pulse Ox 11/08/18 09:48 77 129/80 11/08/18 05:13 97.0 F L 72 18 122/72 98 11/08/18 00:04 98.0 F 60 20 115/67 95 11/07/18 20:40 60 11/07/18 19:25 68.0 F L 69 18 114/62 97 11/07/18 12:54 98.5 F 73 20 122/73 97 11/07/18 11:15 70 12 123/67 96 11/07/18 11:00 70 13 124/62 96 11/07/18 10:45 98 F 69 10 L 144/60 97 - Physical Examination General: No Apparent Distress HEENT: Positive: PERRL Cardiac: Positive: Other (AV paced) Neuro: Positive: Grossly Intact Extremities: Absent: edema - Labs and Meds Cardiac Enzymes 11/08/18 Range/Units 03:57 CK-MB (CK-2) < 1.0 (0.0-4.0) ng/mL CBC 11/07/18 11/08/18 Range/Units 17:54 03:57 Hgb 9.9 L 9.6 L (11.8-15.2) gm/dl Hct 31.3 L 30.3 L (35.5-45.6) % Comprehensive Metabolic Panel 11/08/18 Range/Units 03:57 Sodium 133 L (137-145) mmol/L Potassium 3.1 L (3.6-5.0) mmol/L Chloride 92.8 L (98-107) mmol/L Carbon Dioxide 30 (22-30) mmol/L BUN 6 L (9-20) mg/dL Creatinine 1.0 (0.8-1.5) mg/dL Glucose 144 H (75-100) mg/dL Calcium 8.7 (8.4-10.2) mg/dL
--- NOTE | 2018-11-08 10:37 | Gastroenterology Progress Note ---
Addendum entered and electronically signed by ALISA FREIRE MD 11/08/18 17:12: Patient seen and examined on 11/08/2018. Agree with A/P and recommendations as stated. Path confirmed poorly differentiated carcinoma. Oncology and surgery on board. May need additional imaging. Will sign off at this time. Please call with questions. Original Note: Assessment and Plan 1.UGI bleed/hematemesis 2.H/o esophageal varices? 3.esophageal mass? 3.anemia -H/H 9.6/30.3-stable -continue to monitor H/H and transfuse as needed -CT 10/11/18- irregular soft tissue fullness at GE juction (suspicious for neoplasia) -CXR 11/05/18- retrocardiac mass that appears to be associated with GE junction as seen on previous CT -EGD 10/11/18 revealed 2-3 columns of large distal esophageal varices (2/2 portal htn; no hx of liver disease-LFTs WNL and liver normal on CT) with overlying blood clots and ulceration with active bleeding (banded x 3)- underlying mass lesion unable to be excluded to due inadequate visualization (path showed inflammation but was inadequate) -repeat EGD yesterday revealed an ulcerated friable circumferential mass from 37 cm to 43 cm at the GE junction surrounding about 75% of the circumference. No obvious signs of esophageal varices -bx results pending -clinically patient is stable with no active signs of bleeding. Admits to some continued substernal/epigastric pain. Denies N/V. tolerating diet. -oncology and surgery consult pending -continue PPI and supportive care -no further GI recommendations at this time -will follow path 4.paroxysmal Afib (s/p cardioversion; currently off Eliquis) 5.dilated nonischemic cardiomyopathy (EF 10-15%) 6.severe pulmonary hypertension 7.COPD 8.essential HTN 9.DM 10. obstructive sleep apnea 11.hx of VT/VF (s/p AICD) Subjective Date of service: 11/08/18 Principal diagnosis: UGIB Interval history: Patient w/o acute distress. Reports continued substernal/epigastric pain. No N/V or active signs of bleeding overnight or this am. Objective - Constitutional Vitals: Temp Pulse Resp BP Pulse Ox 97.0 F L 77 18 129/80 98 11/08/18 05:13 11/08/18 09:48 11/08/18 05:13 11/08/18 09:48 11/08/18 05:13 General appearance: no acute distress, obese (morbid) - Respiratory Respiratory: bilateral: CTA - Cardiovascular Rhythm: other (irregular) - Gastrointestinal General gastrointestinal: Present: soft, non-distended, normal bowel sounds - Neurologic Neurological: alert and oriented x3 - Labs CBC & Chem 7: 11/08/18 03:57 11/08/18 03:57 Labs: Laboratory Results - last 24 hr 11/07/18 11/07/18 11/07/18 13:01 16:10 17:54 Hgb 9.9 L Hct 31.3 L Sodium Potassium Chloride Carbon Dioxide Anion Gap BUN Creatinine Estimated GFR BUN/Creatinine Ratio Glucose POC Glucose 108 H 191 H Calcium Total Creatine Kinase CK-MB (CK-2) CK-MB (CK-2) Rel Index Troponin T 11/07/18 11/08/18 11/08/18 21:19 03:57 03:57 Hgb 9.6 L Hct 30.3 L Sodium 133 L Potassium 3.1 L Chloride 92.8 L Carbon Dioxide 30 Anion Gap 13 BUN 6 L Creatinine 1.0 Estimated GFR > 60 BUN/Creatinine Ratio 6 Glucose 144 H POC Glucose 141 H Calcium 8.7 Total Creatine Kinase CK-MB (CK-2) CK-MB (CK-2) Rel Index Troponin T 11/08/18 11/08/18 11/08/18 03:57 03:57 06:40 Hgb Hct Sodium Potassium Chloride Carbon Dioxide Anion Gap BUN Creatinine Estimated GFR BUN/Creatinine Ratio Glucose POC Glucose 95 Calcium Total Creatine Kinase 42 L CK-MB (CK-2) < 1.0 CK-MB (CK-2) Rel Index 2.3 Troponin T < 0.010
--- NOTE | 2018-11-08 16:39 | Consultation ---
History of Present Illness Consult date: 11/08/18 Reason for consult: other (esophageal ca) Requesting physician: ALISA FREIRE Chief complaint: epigastric pain and hematemesis - History of present illness History of present illness: 47yo M with mulitple medical problems presents with epigastric pain and hematemesis. This has been a long standing problem for which he was recently scoped in 10/08. At that time, a CT was done which showed an esophageal fullness suggestive of a neoplasm. Recent EGD with bx's done during this admission came back as invasive ca. We are asked to see the patient for a surgical opinion. Pt reports persistent and worsening pain in the epigastric area. Pain worsens with eating. This has been progressively getting worse over many years. He has lost weight. Past History Past Medical History: arrhythmia, anemia, cancer, COPD, diabetes, DVT, heart failure (15% EF), hypertension, other (sleep apnea, pulm HTN, h/o VT) Past Surgical History: cholecystectomy, Other (cardioversion 11/2017, s/p AICD, EGD 09/2018 with esophageal banding) Social history: smoking (1pk q3d). denies: alcohol abuse, prescription drug abuse, IV drug use Family history: cancer Medications and Allergies Allergies Allergy/AdvReac Type Severity Reaction Status Date / Time cephalexin monohydrate AdvReac Hives Verified 05/17/18 21:55 [From Keflex] lidocaine AdvReac Hives Verified 05/17/18 21:55 mushrooms Allergy Anaphylaxis Uncoded 05/17/18 21:55 Home Medications Medication Instructions Recorded Confirmed Last Taken Type Ferrous Sulfate [Feosol 325 MG tab] 325 mg PO BID 05/19/15 11/05/18 10/25/18 History Magnesium Oxide 400 mg PO DAILY 08/31/16 11/05/18 10/25/18 History glipiZIDE [Glucotrol] 10 mg PO QDAY 03/16/17 11/05/18 10/25/18 History Carvedilol [Coreg] 25 mg PO BID #60 tablet 06/10/17 11/05/18 10/25/18 Rx Allopurinol 100 mg PO BID 09/05/17 11/05/18 10/25/18 History Digoxin 125 mcg PO DAILY 10/14/17 11/05/18 10/25/18 History Torsemide [Demadex] 100 mg PO QDAY #30 tablet 10/19/17 11/05/18 10/25/18 Rx Aspirin [Aspirin TAB] 325 mg PO QDAY 03/29/18 11/05/18 10/25/18 History Potassium Chloride [K-Dur] 20 meq PO BID #30 tablet 03/29/18 11/05/18 10/25/18 Rx Spironolactone [Aldactone] 50 mg PO QDAY 03/29/18 11/05/18 10/25/18 History Insulin Glargine,Hum.rec.anlog 20 unit SQ HS 09/29/18 11/05/18 10/24/18 History [Lantus] Lisinopril [Zestril TAB] 2.5 mg PO BID 11/05/18 11/05/18 Unknown History Active Meds: Active Medications Acetaminophen (Tylenol) 650 mg [place] Q4H PRN PRN Reason: Pain, Mild (1-3) Acetaminophen/Hydrocodone Bitart ([place]) 7.5 mg PO Q4H PRN PRN Reason: Pain, Moderate (4-6) Allopurinol (Zyloprim) 100 mg PO BID [facility] Last Admin: 11/08/18 09:48 Dose: 100 mg Documented by: Carvedilol (Coreg) 25 mg PO BID [facility] Last Admin: 11/08/18 09:48 Dose: 25 mg Documented by: Dextrose (D50w (25gm) Syringe) 50 ml IV PRN PRN PRN Reason: Hypoglycemia Digoxin (Lanoxin) 0.125 mg PO DAILY@1700 [facility] Last Admin: 11/07/18 19:44 Dose: 0.125 mg Documented by: Ferrous Sulfate (Feosol) 325 mg PO BID [facility] Last Admin: 11/08/18 09:48 Dose: 325 mg Documented by: Hydromorphone HCl (Dilaudid) 1 mg IV Q4H PRN PRN Reason: Pain , Severe (7-10) Last Admin: 11/08/18 09:56 Dose: 1 mg Documented by: Sodium Chloride (Nacl 0.9% 1000 Ml) 1,000 mls @ 50 mls/hr IV DIRECT [facility] Last Admin: 11/07/18 10:00 Dose: 50 mls/hr Documented by: Sodium Chloride (Nacl 0.9% 1000 Ml) 1,000 mls @ 50 mls/hr IV DIRECT [facility] Insulin Human Regular (Humulin R) 0 units SUB-Q Q4H [facility]; Protocol Last Admin: 11/08/18 15:12 Dose: Not Given Documented by: Lisinopril (Zestril) 2.5 mg PO BID [facility] Last Admin: 11/08/18 09:48 Dose: 2.5 mg Documented by: Ondansetron HCl (Zofran) 4 mg IV Q8H PRN PRN Reason: Nausea And Vomiting Pantoprazole Sodium (Protonix) 40 mg PO BID [facility] Review of Systems - Constitutional weight loss, chronic pain, no fever, no chills - Cardiovascular rapid/irregular heart beat, no chest pain, no lightheadedness, no shortness of breath - Respiratory no cough - Gastrointestinal abdominal pain, hematemesis, no nausea, no vomiting - Genitourinary no dysuria - Muskuloskeletal no low back pain - Integumentary no rash, no pruritis, no wounds Exam Vital Signs Temp Pulse Resp BP Pulse Ox 98.4 F 69 20 112/43 98 11/05/18 17:48 11/05/18 17:48 11/05/18 17:48 11/05/18 17:48 11/05/18 17:48 - General physical appearance Positive: well developed, well nourished, no distress, no pain, other (overweight) - Eyes Positive: normal occular movement. Negative: icteric - Respiratory Positive: normal expansion, normal respiratory effort wheezing: right - Cardiovascular Rhythm: regular (with occasional extra beats) - Abdomen Abdomen: Present: soft, tender (focal in the epigastric area), guarding (voluntary), surgical scars (well healed). Absent: distended, rigid, wound - Integumentary no rash, no growths, no abnormal pigmentation - Neurologic Neurologic: alert and oriented to time, place and person, motor strength and sensation are grossly intact - Psychiatric Psychiatric: appropriate mood/affect, intact judgment & insight, cooperative, depressed Results - Labs 11/08/18 03:57 11/08/18 03:57 Abnormal lab results 11/07/18 11/07/18 11/08/18 Range/Units 17:54 21:19 03:57 Hgb 9.9 L 9.6 L (11.8-15.2) gm/dl Hct 31.3 L 30.3 L (35.5-45.6) % Sodium (137-145) mmol/L Potassium (3.6-5.0) mmol/L Chloride (98-107) mmol/L BUN (9-20) mg/dL Glucose (75-100) mg/dL POC Glucose 141 H (70-105) Total Creatine Kinase (55-170) units/L 11/08/18 11/08/18 11/08/18 Range/Units 03:57 03:57 11:13 Hgb (11.8-15.2) gm/dl Hct (35.5-45.6) % Sodium 133 L (137-145) mmol/L Potassium 3.1 L (3.6-5.0) mmol/L Chloride 92.8 L (98-107) mmol/L BUN 6 L (9-20) mg/dL Glucose 144 H (75-100) mg/dL POC Glucose 156 H (70-105) Total Creatine Kinase 42 L (55-170) units/L Diabetes panel 11/08/18 Range/Units 03:57 Sodium 133 L (137-145) mmol/L Potassium 3.1 L (3.6-5.0) mmol/L Chloride 92.8 L (98-107) mmol/L Carbon Dioxide 30 (22-30) mmol/L BUN 6 L (9-20) mg/dL Creatinine 1.0 (0.8-1.5) mg/dL Glucose 144 H (75-100) mg/dL Calcium 8.7 (8.4-10.2) mg/dL Calcium panel 11/08/18 Range/Units 03:57 Calcium 8.7 (8.4-10.2) mg/dL Pituitary panel 11/08/18 Range/Units 03:57 Sodium 133 L (137-145) mmol/L Potassium 3.1 L (3.6-5.0) mmol/L Chloride 92.8 L (98-107) mmol/L Carbon Dioxide 30 (22-30) mmol/L BUN 6 L (9-20) mg/dL Creatinine 1.0 (0.8-1.5) mg/dL Glucose 144 H (75-100) mg/dL Calcium 8.7 (8.4-10.2) mg/dL Adrenal panel 11/08/18 Range/Units 03:57 Sodium 133 L (137-145) mmol/L Potassium 3.1 L (3.6-5.0) mmol/L Chloride 92.8 L (98-107) mmol/L Carbon Dioxide 30 (22-30) mmol/L BUN 6 L (9-20) mg/dL Creatinine 1.0 (0.8-1.5) mg/dL Glucose 144 H (75-100) mg/dL Calcium 8.7 (8.4-10.2) mg/dL - Imaging CT scan - abdomen: report reviewed, image reviewed (from 10/08) CT scan - pelvis: report reviewed, image reviewed (from 10/08) Assessment and Plan - Patient Problems (1) Esophageal cancer Current Visit: Yes Status: Acute Qualifiers: Malignant neoplasm of esophagus location: lower third Qualified Code(s): C15.5 - Malignant neoplasm of lower third of esophagus Plan to address problem: Pt stable. With all of his medical issues, he is a high risk candidate for either a complete or partial esophageal resection. This would have to be done at a center with a thoracic surgeon or surgical oncologist that does esophageal surgery. There is no emergent need for surgery at this time. He can f/u with one of these surgeons as an out-pt. With this current situation, I think we may be looking at a palliative resection rather than a curative one. He would benefit from a CT of the chest with contrast to see the full extent of any mediastinal disease. This could be done now in order to give the consultants a complete picture. Nutrition will be huston during this time. As he is having difficulty swallowing regular food, I have started him on protein supplements. Will be available as needed. Please call with questions. Time=45min
--- NOTE | 2018-11-08 16:54 | Progress Note ---
Assessment and Plan Assessment and plan: 47-year-old male with past medical history significant for nonischemic cardiomyopathy ejection fraction of 10-15%, atrial flutter, history of V. tach, sleep apnea or side, morbid obesity, esophageal varices bleeding presented to the emergency department his complaints of vomiting of blood Bleeding esophageal varices - Patient didn't have any varices on EGD, there is friable mass on the GE junction and it looks like cancer, GI consulted oncology. - Biopsy was taken, oncology and general surgery consulted - Slight decrease in H&H, patient doesn't need transfusion - Continue to monitor Nonischemic cardiomyopathy, a.flutter, v.tach - Patient didn't have any chest pain - No leg swelling - Cardiology consult - Patient was off eliquis during previous admissions Hypokalemia - Repleted - We'll check potassium [place] - Continue CPAP DVT prophylaxis - SCDs Disposition - Continue inpatient care. History Interval history: Patient was seen and evaluated this morning, patient is complaining epigastric pain. No vomiting. Hospitalist Physical - Physical exam Narrative exam: Not in cardiopulmonary distress. The patient is morbidly obese. Vital signs as documented. Head exam is unremarkable. No scleral icterus . Neck is without jugular venous distension, thyromegaly, or carotid bruits. Lungs are clear to auscultation. Cardiac exam reveals regular rate and Rhythm. Abdominal exam reveals normal bowel sounds, no masses, no organomegaly and no aortic enlargement. Extremities are nonedematous and both femoral and pedal pulses are normal. VICTIM WITNESS ADMINISTRATOR: Alert and oriented 3. No focal weakness. - Constitutional Vitals: Temp Pulse Resp BP Pulse Ox 98.3 F 71 18 105/48 97 11/08/18 11:34 11/08/18 16:18 11/08/18 11:34 11/08/18 16:18 11/08/18 16:18 General appearance: Present: no acute distress Results - Labs CBC & Chem 7: 11/08/18 03:57 11/08/18 03:57 Labs: Laboratory Last Values WBC 8.0 K/mm3 (4.5-11.0) 11/05/18 18:10 RBC 4.02 M/mm3 (3.65-5.03) 11/05/18 18:10 Hgb 9.6 gm/dl (11.8-15.2) L 11/08/18 03:57 Hct 30.3 % (35.5-45.6) L 11/08/18 03:57 MCV 84 fl (84-94) 11/05/18 18:10 MCH 26 pg (28-32) L 11/05/18 18:10 MCHC 31 % (32-34) L 11/05/18 18:10 RDW 18.6 % (13.2-15.2) H 11/05/18 18:10 Plt Count 311 K/mm3 (140-440) 11/05/18 18:10 Lymph % (Auto) 12.4 % (13.4-35.0) L 11/05/18 18:10 Thomas % (Auto) 8.3 % (0.0-7.3) H 11/05/18 18:10 Eos % (Auto) 1.5 % (0.0-4.3) 11/05/18 18:10 Baso % (Auto) 1.3 % (0.0-1.8) 11/05/18 18:10 Lymph # 1.0 K/mm3 (1.2-5.4) L 11/05/18 18:10 Thomas # 0.7 K/mm3 (0.0-0.8) 11/05/18 18:10 Eos # 0.1 K/mm3 (0.0-0.4) 11/05/18 18:10 Baso # 0.1 K/mm3 (0.0-0.1) 11/05/18 18:10 Seg Neutrophils % 76.5 % (40.0-70.0) H 11/05/18 18:10 Seg Neutrophils # 6.1 K/mm3 (1.8-7.7) 11/05/18 18:10 PT 15.2 Sec. (12.2-14.9) H 11/05/18 18:10 INR 1.16 (0.87-1.13) H 11/05/18 18:10 APTT 32.1 Sec. (24.2-36.6) 11/05/18 18:10 Sodium 133 mmol/L (137-145) L 11/08/18 03:57 Potassium 3.1 mmol/L (3.6-5.0) L 11/08/18 03:57 Chloride 92.8 mmol/L (98-107) L 11/08/18 03:57 Carbon Dioxide 30 mmol/L (22-30) 11/08/18 03:57 Anion Gap 13 mmol/L 11/08/18 03:57 BUN 6 mg/dL (9-20) L 11/08/18 03:57 Creatinine 1.0 mg/dL (0.8-1.5) 11/08/18 03:57 Estimated GFR > 60 ml/min 11/08/18 03:57 BUN/Creatinine Ratio 6 % 11/08/18 03:57 Glucose 144 mg/dL (75-100) H 11/08/18 03:57 POC Glucose 156 (70-105) H 11/08/18 11:13 Calcium 8.7 mg/dL (8.4-10.2) 11/08/18 03:57 Total Bilirubin 0.60 mg/dL (0.1-1.2) 11/05/18 18:10 AST 10 units/L (5-40) 11/05/18 18:10 ALT 6 units/L (7-56) L 11/05/18 18:10 Alkaline Phosphatase 70 units/L (35-129) 11/05/18 18:10 Total Creatine Kinase 42 units/L (55-170) L 11/08/18 03:57 CK-MB (CK-2) < 1.0 ng/mL (0.0-4.0) 11/08/18 03:57 CK-MB (CK-2) Rel Index 2.3 (0-4) 11/08/18 03:57 Troponin T < 0.010 ng/mL (0.00-0.029) 11/08/18 03:57 Total Protein 6.9 g/dL (6.3-8.2) 11/05/18 18:10 Albumin 3.6 g/dL (3.9-5) L 11/05/18 18:10 Albumin/Globulin Ratio 1.1 % 11/05/18 18:10 Blood Type O POSITIVE 11/05/18 18:15 Antibody Screen Negative 11/05/18 18:15
[2018-11-08] MEDS: NORCO PO PRN (18:09)
--- NOTE | 2018-11-08 18:55 | Hem/Onc Progress Note ---
Assessment and Plan 1. Based on the information available esophageal mass. 2. Mention of lymph nodes. 3. History of varices. 4. History of hematemesis. 5. History of congestive heart failure with low ejection fraction of 15%. 6. History of diabetes. 7. History of deep venous thrombosis and pulmonary embolism. 8. History of sleep apnea. 9. History of ventricular tachycardia and esophageal varices. 10. Surgical history as mentioned band surgery for stomach. pathology. Surgical team evaluation will guide if he is not a surgical candidate. He has lost weight secondary to inability to eat solid food. d/w GI - malignancy+ sx eval Subjective Date of service: 11/08/18 Principal diagnosis: esophageal ca Interval history: abdo discomfort Objective - Constitutional Vitals: Last Vital Signs Temp 98.3 F 11/08/18 11:34 Pulse 71 11/08/18 16:18 Resp 18 11/08/18 11:34 BP 105/48 11/08/18 16:18 Pulse Ox 97 11/08/18 16:18 Pain Intensity (0-10): 1/10 (abdo) General appearance: no acute distress Performance status: 2- selfcare, ambulatory - EENT Eyes: EOM intact ENT: clear oral mucosa Lymph node exam: negative cervical, negative supraclavicular - Neck Neck: normal ROM - Respiratory Respiratory effort: Positive: normal Respiratory: bilateral: CTA - Cardiovascular Heart Sounds: Present: S1 & S2 Extremities: No edema - Gastrointestinal General gastrointestinal: Present: soft, non-tender Rectal Exam: deferred - Genitourinary Male genitourinary: Present: deferred - Integumentary Integumentary: warm - Musculoskeletal Musculoskeletal: strength equal bilaterally - Neurologic Neurologic: moves all extremities - Psychiatric Psychiatric: appropriate mood/affect - Labs Lab Results: Laboratory Results - last 24 hr 11/07/18 11/08/18 11/08/18 21:19 03:57 03:57 Hgb 9.6 L Hct 30.3 L Sodium 133 L Potassium 3.1 L Chloride 92.8 L Carbon Dioxide 30 Anion Gap 13 BUN 6 L Creatinine 1.0 Estimated GFR > 60 BUN/Creatinine Ratio 6 Glucose 144 H POC Glucose 141 H Calcium 8.7 Total Creatine Kinase CK-MB (CK-2) CK-MB (CK-2) Rel Index Troponin T 11/08/18 11/08/18 11/08/18 03:57 03:57 06:40 Hgb Hct Sodium Potassium Chloride Carbon Dioxide Anion Gap BUN Creatinine Estimated GFR BUN/Creatinine Ratio Glucose POC Glucose 95 Calcium Total Creatine Kinase 42 L CK-MB (CK-2) < 1.0 CK-MB (CK-2) Rel Index 2.3 Troponin T < 0.010 11/08/18 11/08/18 11:13 17:32 Hgb Hct Sodium Potassium 3.6 Chloride Carbon Dioxide Anion Gap BUN Creatinine Estimated GFR BUN/Creatinine Ratio Glucose POC Glucose 156 H Calcium Total Creatine Kinase CK-MB (CK-2) CK-MB (CK-2) Rel Index Troponin T Medications & Allergies - Medications Allergies/Adverse Reactions: Allergies cephalexin monohydrate [From Keflex] Adverse Reaction (Verified 05/17/18 21:55) Hives pt states makes skin yellow. lidocaine Adverse Reaction (Verified 05/17/18 21:55) Hives mushrooms Allergy (Uncoded 05/17/18 21:55) Anaphylaxis Home Medications: Home Medications Medication Instructions Recorded Confirmed Last Taken Type RX: Ferrous Sulfate [Feosol 325 MG 325 mg PO BID 05/19/15 11/05/18 10/25/18 History tab] RX: Magnesium Oxide 400 mg PO DAILY 08/31/16 11/05/18 10/25/18 History RX: glipiZIDE [Glucotrol] 10 mg PO QDAY 03/16/17 11/05/18 10/25/18 History RX: Carvedilol [Coreg] 25 mg PO BID #60 tablet 06/10/17 11/05/18 10/25/18 Rx RX: Allopurinol 100 mg PO BID 09/05/17 11/05/18 10/25/18 History RX: Digoxin 125 mcg PO DAILY 10/14/17 11/05/18 10/25/18 History RX: Torsemide [Demadex] 100 mg PO QDAY #30 tablet 10/19/17 11/05/18 10/25/18 Rx RX: Aspirin [Aspirin TAB] 325 mg PO QDAY 03/29/18 11/05/18 10/25/18 History RX: Potassium Chloride [K-Dur] 20 meq PO BID #30 tablet 03/29/18 11/05/18 10/25/18 Rx RX: Spironolactone [Aldactone] 50 mg PO QDAY 03/29/18 11/05/18 10/25/18 History RX: Insulin Glargine,Hum.rec.anlog 20 unit SQ HS 09/29/18 11/05/18 10/24/18 History [Lantus] Lisinopril [Zestril TAB] 2.5 mg PO BID 11/05/18 11/05/18 Unknown History Active Medications: Generic Name Dose Route Start Last Admin Trade Name Freq PRN Reason Stop Dose Admin Acetaminophen 650 mg 11/05/18 21:[address] Q4H PRN Pain, Mild (1-3) Acetaminophen/Hydrocodone Bitart 7.5 mg 11/08/18 16:33 11/08/18 18:09 [place] PO 7.5 mg Q4H PRN Administration Pain, Moderate (4-6) Allopurinol 100 mg 11/05/18 22:00 11/08/18 09:48 Zyloprim PO 100 mg BID ROBERT Administration Carvedilol 25 mg 11/05/18 22:00 11/08/18 09:48 Coreg PO 25 mg BID ROBERT Administration Dextrose 50 ml 11/05/18 21:46 D50w (25gm) Syringe IV PRN PRN Hypoglycemia Digoxin 0.125 mg 11/06/18 17:00 11/07/18 19:44 Lanoxin PO 0.125 mg DAILY@1700 ROBERT Administration Ferrous Sulfate 325 mg 11/05/18 22:00 11/08/18 09:48 Feosol PO 325 mg BID ROBERT Administration Hydromorphone HCl 1 mg 11/07/18 23:47 11/08/18 09:56 Dilaudid IV 1 mg Q4H PRN Administration Pain , Severe (7-10) Sodium Chloride 1,000 mls @ 50 mls/hr 11/06/18 13:00 11/07/18 10:00 Nacl 0.9% 1000 Ml IV 50 mls/hr DIRECT ROBERT Administration Sodium Chloride 1,000 mls @ 50 mls/hr 11/07/18 12:00 Nacl 0.9% 1000 Ml IV DIRECT ROBERT Insulin Human Regular 0 units 11/05/18 22:00 11/08/18 15:12 Humulin R SUB-Q Not Given Q4H [facility] Protocol Lisinopril 2.5 mg 11/05/18 22:00 11/08/18 09:48 Zestril PO 2.5 mg BID ROBERT Administration Ondansetron HCl 4 mg 11/05/18 21:39 Zofran IV Q8H PRN Nausea And Vomiting Pantoprazole Sodium 40 mg 11/08/18 22:00 Protonix PO BID ROBERT
[2018-11-08] MEDS: LANOXIN PO SCH (20:13)
[2018-11-08] MEDS: PROTONIX PO SCH (22:19)
[2018-11-09] MEDS: HumuLIN R SUB-Q SCH ×7 (05:31→21:37)
[2018-11-09 05:35] LABS: Hematocrit 30.3 % (35.5-45.6); Hemoglobin 9.5 gm/dl (11.8-15.2)
[2018-11-09 06:03] LABS: BUN/Creatinine Ratio 4; Blood Urea Nitrogen 4 mg/dL (9-20); Calcium 8.7 mg/dL (8.4-10.2); Hemolysis Index 2
--- NOTE | 2018-11-09 07:24 | Hem/Onc Progress Note ---
Assessment and Plan 1. Based on the information available esophageal mass. 2. Mention of lymph nodes. 3. History of varices. 4. History of hematemesis. 5. History of congestive heart failure with low ejection fraction of 15%. 6. History of diabetes. 7. History of deep venous thrombosis and pulmonary embolism. 8. History of sleep apnea. 9. History of ventricular tachycardia and esophageal varices. 10. Surgical history as mentioned band surgery for stomach. pathology. Surgical team evaluation will guide if he is not a surgical candidate. He has lost weight secondary to inability to eat solid food. path - invasive - adeno vs sq 3 LN - on CT - N2 - at least stage III - clinically - as per sx - he will be referred to tertiary center reviewed NCCN -depending on sq vs adeno - pt may need chemo XRT preop or surgery - will await sx eval and path - Patient Problems (1) Esophageal cancer Current Visit: Yes Status: Acute Subjective Date of service: 11/09/18 Principal diagnosis: esophageal cancer Interval history: abdo pain Objective - Constitutional Vitals: Last Vital Signs Temp 98.9 F 11/09/18 04:27 Pulse 75 11/09/18 04:27 Resp 18 11/09/18 04:27 BP 112/68 11/09/18 04:27 Pulse Ox 99 11/09/18 04:27 Pain Intensity (0-10): 1/10 (abdo) General appearance: no acute distress Performance status: 2- selfcare, ambulatory - EENT Eyes: EOM intact ENT: clear oral mucosa Lymph node exam: negative cervical, negative supraclavicular - Neck Neck: normal ROM - Respiratory Respiratory effort: Positive: normal Respiratory: bilateral: CTA - Cardiovascular Heart Sounds: Present: S1 & S2 Extremities: No edema - Gastrointestinal General gastrointestinal: Present: soft Rectal Exam: deferred - Genitourinary Male genitourinary: Present: deferred - Integumentary Integumentary: warm - Musculoskeletal Musculoskeletal: strength equal bilaterally - Neurologic Neurologic: moves all extremities - Labs Lab Results: Laboratory Results - last 24 hr 11/08/18 11/08/18 11/08/18 11:13 16:18 17:32 Hgb Hct Sodium Potassium 3.6 Chloride Carbon Dioxide Anion Gap BUN Creatinine Estimated GFR BUN/Creatinine Ratio Glucose POC Glucose 156 H 126 H Calcium 11/08/18 11/09/1811/09/19 21:36 05:15 05:15 Hgb 9.5 L Hct 30.3 L Sodium 135 L Potassium 3.1 L Chloride 94.7 L Carbon Dioxide 25 Anion Gap 18 BUN 4 L Creatinine 1.0 Estimated GFR > 60 BUN/Creatinine Ratio 4 Glucose 196 H POC Glucose 155 H Calcium 8.7 11/09/18 06:05 Hgb Hct Sodium Potassium Chloride Carbon Dioxide Anion Gap BUN Creatinine Estimated GFR BUN/Creatinine Ratio Glucose POC Glucose 150 H Calcium Medications & Allergies - Medications Allergies/Adverse Reactions: Allergies cephalexin monohydrate [From Keflex] Adverse Reaction (Verified 05/17/18 21:55) Hives pt states makes skin yellow. lidocaine Adverse Reaction (Verified 05/17/18 21:55) Hives mushrooms Allergy (Uncoded 05/17/18 21:55) Anaphylaxis Home Medications: Home Medications Medication Instructions Recorded Confirmed Last Taken Type Ferrous Sulfate [Feosol 325 MG tab] 325 mg PO BID 05/19/15 11/05/18 10/25/18 History Magnesium Oxide 400 mg PO DAILY 08/31/16 11/05/18 10/25/18 History glipiZIDE [Glucotrol] 10 mg PO QDAY 03/16/17 11/05/18 10/25/18 History Carvedilol [Coreg] 25 mg PO BID #60 tablet 06/10/17 11/05/18 10/25/18 Rx Allopurinol 100 mg PO BID 09/05/17 11/05/18 10/25/18 History Digoxin 125 mcg PO DAILY 10/14/17 11/05/18 10/25/18 History Torsemide [Demadex] 100 mg PO QDAY #30 tablet 10/19/17 11/05/18 10/25/18 Rx Aspirin [Aspirin TAB] 325 mg PO QDAY 03/29/18 11/05/18 10/25/18 History Potassium Chloride [K-Dur] 20 meq PO BID #30 tablet 03/29/18 11/05/18 10/25/18 Rx Spironolactone [Aldactone] 50 mg PO QDAY 03/29/18 11/05/18 10/25/18 History Insulin Glargine,Hum.rec.anlog 20 unit SQ HS 09/29/18 11/05/18 10/24/18 History [Lantus] Lisinopril [Zestril TAB] 2.5 mg PO BID 11/05/18 11/05/18 Unknown History Active Medications: Generic Name Dose Route Start Last Admin Trade Name Freq PRN Reason Stop Dose Admin Acetaminophen 650 mg 11/05/18 21:40 Tylenol [place] Q4H PRN Pain, Mild (1-3) Acetaminophen/Hydrocodone Bitart 7.5 mg 11/08/18 16:33 11/08/18 18:09 [place] PO 7.5 mg Q4H PRN Administration Pain, Moderate (4-6) Allopurinol 100 mg 11/05/18 22:00 11/08/18 22:19 Zyloprim PO 100 mg BID ROBERT Administration Carvedilol 25 mg 11/05/18 22:00 11/08/18 22:19 Coreg PO 25 mg BID ROBERT Administration Dextrose 50 ml 11/05/18 21:46 D50w (25gm) Syringe IV PRN PRN Hypoglycemia Digoxin 0.125 mg 11/06/18 17:00 11/08/18 20:13 Lanoxin PO 0.125 mg DAILY@1700 ROBERT Administration Ferrous Sulfate 325 mg 11/05/18 22:00 11/08/18 22:19 Feosol PO 325 mg BID ROBERT Administration Hydromorphone HCl 1 mg 11/07/18 23:47 11/08/18 22:24 Dilaudid IV 1 mg Q4H PRN Administration Pain , Severe (7-10) Sodium Chloride 1,000 mls @ 50 mls/hr 11/06/18 13:00 11/07/18 10:00 Nacl 0.9% 1000 Ml IV 50 mls/hr DIRECT ROBERT Administration Sodium Chloride 1,000 mls @ 50 mls/hr 11/07/18 12:00 Nacl 0.9% 1000 Ml IV DIRECT ROBERT Insulin Human Regular 0 units 11/05/18 22:00 11/09/18 06:55 Humulin R SUB-Q Not Given Q4H [facility] Protocol Lisinopril 2.5 mg 11/05/18 22:00 11/08/18 22:18 Zestril PO 2.5 mg BID ROBERT Administration Ondansetron HCl 4 mg 11/05/18 21:39 Zofran IV Q8H PRN Nausea And Vomiting Pantoprazole Sodium 40 mg 11/08/18 22:00 11/08/18 22:19 Protonix PO 40 mg BID ROBERT Administration
[2018-11-09] MEDS: ZYLOPRIM PO SCH ×2 (09:14→21:38)
[2018-11-09] MEDS: FEOSOL PO SCH ×2 (09:15→21:38)
[2018-11-09] MEDS: COREG PO SCH ×2 (09:15→21:38)
[2018-11-09] MEDS: DILAUDID IV PRN ×2 (09:15→17:36)
[2018-11-09] MEDS: PROTONIX PO SCH ×2 (09:15→21:38)
--- NOTE | 2018-11-09 10:02 | Progress Note ---
Assessment and Plan UGI bleed recent EGD with banding of esophageal varices CT scan September 2018 was suggestive for esophageal carcinoma. Biopsy is pertinent for esophageal carcinoma Paroxysmal Afib s/p TTT/cardioversion 11/2017 on digoxin and coreg as an outpatient for suppression. 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 No appropriate or inappropriate discharge. Hx of VT/VF Recommendations: Continue medical management for paroxysmal Afib and nonischemic cardiomyopathy as tolerated. CTA chets with contrast today Outpatient thoracic surgery follow-up Subjective Date of service: 11/09/18 Principal diagnosis: esophageal ca Interval history: Patient complains of epigastric pain No events on tele Objective Vital Signs Temp Pulse Resp BP Pulse Ox 11/09/18 09:15 18 11/09/18 09:13 98.2 F 70 18 109/67 95 11/09/18 04:27 98.9 F 75 18 112/68 99 11/08/18 23:51 98.6 F 63 18 110/58 96 11/08/18 22:24 20 11/08/18 20:20 71 11/08/18 20:16 98.7 F 73 18 116/63 97 11/08/18 20:13 71 105/48 11/08/18 16:18 71 105/48 97 11/08/18 11:34 98.3 F 70 18 119/65 98 - Physical Examination General: No Apparent Distress HEENT: Positive: PERRL Neck: Positive: neck supple Cardiac: Positive: Reg Rate and Rhythm Lungs: Positive: Normal Exam Neuro: Positive: Grossly Intact Extremities: Absent: edema - Labs and Meds CBC 11/09/18 Range/Units 05:15 Hgb 9.5 L (11.8-15.2) gm/dl Hct 30.3 L (35.5-45.6) % Comprehensive Metabolic Panel 11/08/18 11/09/18 Range/Units 17:32 05:15 Sodium 135 L (137-145) mmol/L Potassium 3.6 3.1 L (3.6-5.0) mmol/L Chloride 94.7 L (98-107) mmol/L Carbon Dioxide 25 (22-30) mmol/L BUN 4 L (9-20) mg/dL Creatinine 1.0 (0.8-1.5) mg/dL Glucose 196 H (75-100) mg/dL Calcium 8.7 (8.4-10.2) mg/dL
[2018-11-09] MEDS: ZESTRIL PO SCH ×2 (10:06→21:38)
--- NOTE | 2018-11-09 10:44 | Cat Scan Report ---
FINAL REPORT EXAM: CT CHEST W CON HISTORY: esophageal cancer TECHNIQUE: CT of chest with IV contrast. Coronal and sagittal reconstructed images provided. PRIORS: CT chest October 11, 2018. FINDINGS: No pneumothorax. No effusion. No consolidation. No endobronchial lesion. Main pulmonary artery is unremarkable. No aortic aneurysm or dissection. Major branch arteries are intact. Mild aortic atherosclerotic disea se. Stable cardiomegaly. No pericardial effusion. Coronary artery disease. There is no axillary adenopathy. There is no hilar or mediastinal mass or adenopathy. Asymmetrical soft tissue thickening of the distal esophagus is similar to prior. Prominent right para esophageal lymph node on series 2:67 measures 2.7 x 4.2 cm and is similar to prior. Prominent left pa raesophageal lymph node on image 90 measures 1.4 x 3.5 cm and is stable compared to prior. Subcentimeter prominent perigastric lymph nodes with 1 the larger lymph nodes measuring 0.7 cm appear s similar to prior. Left upper cortical low-attenuation lesion measures 2.4 cm and is stable compared to prior. No suspicious osseous lesions on this limited examination of the skeleton. Metastatic disease better evaluated with bone scan. Degenerative changes are present in the spine. IMPRESSION: Asymmetrical irregular distal esophageal wall thickening is suspicious for malignancy. Periesophageal adenopathy is likely pathologic and similar to prior
[2018-11-09] MEDS: KCL 10MEQ/100ML 10 MEQ/100 ML BAG IV SCH ×4 (11:58→15:11)
[2018-11-09] MEDS: NORCO PO PRN ×2 (12:02→21:42)
--- NOTE | 2018-11-09 13:58 | Progress Note ---
Assessment and Plan Assessment and plan: 47-year-old male with past medical history significant for nonischemic cardiomyopathy ejection fraction of 10-15%, atrial flutter, history of V. tach, sleep apnea or side, morbid obesity, esophageal varices bleeding presented to the emergency department his complaints of vomiting of blood Bleeding esophageal varices - Patient didn't have any varices on EGD, GI consulted oncology - Patient has esophageal cancer - Biopsy was taken, oncology and general surgery consulted - Slight decrease in H&H, patient doesn't need transfusion - Continue to monitor - Surgery recommend need to go to the place where thoracic/esophageal cancer is present as an O/P - will be discharged once pain is controlled Nonischemic cardiomyopathy, a.flutter, v.tach - Patient didn't have any chest pain - No leg swelling - Cardiology consult - Patient was off eliquis during previous admissions Hypokalemia - Repleted - We'll check potassium [place] - Continue CPAP DVT prophylaxis - SCDs Disposition - Continue inpatient care. - Possible DC once stable History Interval history: Patient was seen and evaluated this morning, patient is complaining epigastric pain. No vomiting. Hospitalist Physical - Physical exam Narrative exam: Not in cardiopulmonary distress. The patient is morbidly obese. Vital signs as documented. Head exam is unremarkable. No scleral icterus . Neck is without jugular venous distension, thyromegaly, or carotid bruits. Lungs are clear to auscultation. Cardiac exam reveals regular rate and Rhythm. Abdominal exam reveals normal bowel sounds, no masses, no organomegaly and no aortic enlargement. Extremities are nonedematous and both femoral and pedal pulses are normal. BODY STRAIGHTENER: Alert and oriented 3. No focal weakness. - Constitutional Vitals: Temp Pulse Resp BP Pulse Ox 98.2 F 70 18 109/67 95 11/09/18 09:13 11/09/18 10:06 11/09/18 13:02 11/09/18 10:06 11/09/18 09:13 General appearance: Present: no acute distress Results - Labs CBC & Chem 7: 11/09/18 05:15 11/09/18 05:15 Labs: Laboratory Last Values WBC 8.0 K/mm3 (4.5-11.0) 11/05/18 18:10 RBC 4.02 M/mm3 (3.65-5.03) 11/05/18 18:10 Hgb 9.5 gm/dl (11.8-15.2) L 11/09/18 05:15 Hct 30.3 % (35.5-45.6) L 11/09/18 05:15 MCV 84 fl (84-94) 11/05/18 18:10 MCH 26 pg (28-32) L 11/05/18 18:10 MCHC 31 % (32-34) L 11/05/18 18:10 RDW 18.6 % (13.2-15.2) H 11/05/18 18:10 Plt Count 311 K/mm3 (140-440) 11/05/18 18:10 Lymph % (Auto) 12.4 % (13.4-35.0) L 11/05/18 18:10 [place] % (Auto) 8.3 % (0.0-7.3) H 11/05/18 18:10 Eos % (Auto) 1.5 % (0.0-4.3) 11/05/18 18:10 Baso % (Auto) 1.3 % (0.0-1.8) 11/05/18 18:10 Lymph # 1.0 K/mm3 (1.2-5.4) L 11/05/18 18:10 [place] # 0.7 K/mm3 (0.0-0.8) 11/05/18 18:10 Eos # 0.1 K/mm3 (0.0-0.4) 11/05/18 18:10 Baso # 0.1 K/mm3 (0.0-0.1) 11/05/18 18:10 Seg Neutrophils % 76.5 % (40.0-70.0) H 11/05/18 18:10 Seg Neutrophils # 6.1 K/mm3 (1.8-7.7) 11/05/18 18:10 PT 15.2 Sec. (12.2-14.9) H 11/05/18 18:10 INR 1.16 (0.87-1.13) H 11/05/18 18:10 APTT 32.1 Sec. (24.2-36.6) 11/05/18 18:10 Sodium 135 mmol/L (137-145) L 11/09/18 05:15 Potassium 3.1 mmol/L (3.6-5.0) L 11/09/18 05:15 Chloride 94.7 mmol/L (98-107) L 11/09/18 05:15 Carbon Dioxide 25 mmol/L (22-30) 11/09/18 05:15 Anion Gap 18 mmol/L 11/09/18 05:15 BUN 4 mg/dL (9-20) L 11/09/18 05:15 Creatinine 1.0 mg/dL (0.8-1.5) 11/09/18 05:15 Estimated GFR > 60 ml/min 11/09/18 05:15 BUN/Creatinine Ratio 4 % 11/09/18 05:15 Glucose 196 mg/dL (75-100) H 11/09/18 05:15 POC Glucose 142 (70-105) H 11/09/18 11:54 Calcium 8.7 mg/dL (8.4-10.2) 11/09/18 05:15 Magnesium 1.80 mg/dL (1.7-2.3) 11/09/18 05:15 Total Bilirubin 0.60 mg/dL (0.1-1.2) 11/05/18 18:10 AST 10 units/L (5-40) 11/05/18 18:10 ALT 6 units/L (7-56) L 11/05/18 18:10 Alkaline Phosphatase 70 units/L (35-129) 11/05/18 18:10 Total Creatine Kinase 42 units/L (55-170) L 11/08/18 03:57 CK-MB (CK-2) < 1.0 ng/mL (0.0-4.0) 11/08/18 03:57 CK-MB (CK-2) Rel Index 2.3 (0-4) 11/08/18 03:57 Troponin T < 0.010 ng/mL (0.00-0.029) 11/08/18 03:57 Total Protein 6.9 g/dL (6.3-8.2) 11/05/18 18:10 Albumin 3.6 g/dL (3.9-5) L 11/05/18 18:10 Albumin/Globulin Ratio 1.1 % 11/05/18 18:10 Blood Type O POSITIVE 11/05/18 18:15 Antibody Screen Negative 11/05/18 18:15
[2018-11-09] MEDS: LANOXIN PO SCH (17:36)
[2018-11-10] MEDS: DILAUDID IV PRN ×2 (00:05→10:23)
[2018-11-10] MEDS: HumuLIN R SUB-Q SCH ×4 (02:00→14:33)
[2018-11-10 05:54] LABS: Hematocrit 32.1 % (35.5-45.6); Hemoglobin 10.1 gm/dl (11.8-15.2)
[2018-11-10 06:10] LABS: BUN/Creatinine Ratio 6; Blood Urea Nitrogen 5 mg/dL (9-20); Calcium 8.8 mg/dL (8.4-10.2); Hemolysis Index 2
[2018-11-10] MEDS: ZESTRIL PO SCH (10:18)
[2018-11-10] MEDS: COREG PO SCH (10:20)
[2018-11-10] MEDS: FEOSOL PO SCH (10:20)
[2018-11-10] MEDS: PROTONIX PO SCH (10:20)
[2018-11-10] MEDS: ZYLOPRIM PO SCH (10:20)
--- NOTE | 2018-11-10 13:12 | Discharge Summary ---
Providers - Providers Date of Admission: 11/05/18 19:07 Date of discharge: 11/10/18 Attending physician: LIT JAQUEZ MD 11/05/18 18:55 Consult to Physician [CONS] Urgent Comment: Dr. Oshea spoke with Dr. De Los Santos @ [phone] Consulting Provider: GIGI DE LOS SANTOS Physician Instructions: Reason For Exam: vomiting blood, hx of esophageal varices 11/06/18 06:00 Consult to Cardiology [CONS] Routine Consulting Provider: OMID ALVARES Reason For Exam: firing of AICD/Pacemaker 11/07/18 11:55 Consult to Physician [CONS] Urgent Comment: Consulting Provider: BUD SIMENTAL Physician Instructions: Reason For Exam: esophageal mass 11/08/18 07:56 Consult to Physician [CONS] Routine Comment: Consulting Provider: JUDAH TOWNSEND Physician Instructions: Reason For Exam: Esophageal cancer Primary care physician: MERLENE FLEMING Hospitalization Reason for admission: Esophageal cancer, upper GI bleeding Condition: Stable Pertinent studies: EGD with biopsy poorly differentiated adenocarcinoma Hospital course: 47-year-old male with past medical history significant for nonischemic cardiomyopathy ejection fraction of 10-15%, atrial flutter, history of V. tach, sleep apnea or side, morbid obesity, esophageal varices bleeding presented to the emergency department his complaints of vomiting of blood. patient was admitted to the floor and EGD was done showed esophageal mass, biopsy was done and showed poorly differentiated esophageal cancer. General surgery was consulted and recommended to have follow-up where there is esophageal cancer specialist, thoracic surgeon which would go in the hospital. It is not emergency and patient can follow as an outpatient, surgeon and myself explained and patient verbalized he understood. H&H was stable, no further bleeding. Patient still complaining pain but when I check his record he has a month supply of percocet that was written on 10/25/2018. patient said he was not taking pantoprazole because his insurance doesn't cover it. I gave him goodrx discount printout. patient was seen by moderate needs teacher for his cardiac condition. Patient said he has his medications at home. Disposition: - TO HOME OR SELFCARE Time spent for discharge: 32 minutes - Discharge Diagnoses (1) Esophageal cancer Status: Acute (2) Hx of esophageal varices Status: Acute (3) Non-ischemic cardiomyopathy Status: Acute (4) Vomiting blood Status: Acute (5) Cardiac defibrillator in place Status: Chronic Core Measure Documentation - Palliative Care Palliative Care/ Comfort Measures: Not Applicable - Core Measures Any of the following diagnoses?: none Exam - Physical Exam Narrative exam: Not in cardiopulmonary distress. The patient is morbidly obese. Vital signs as documented. Head exam is unremarkable. No scleral icterus . Neck is without jugular venous distension, thyromegaly, or carotid bruits. Lungs are clear to auscultation. Cardiac exam reveals regular rate and Rhythm. Abdominal exam reveals normal bowel sounds, no masses, no organomegaly and no aortic enlargement. Extremities are nonedematous and both femoral and pedal pulses are normal. WOOD SASH AND FRAME CARPENTER: Alert and oriented 3. No focal weakness. - Constitutional Vitals: Temp Pulse Resp BP Pulse Ox 98.1 F 64 20 120/68 98 11/09/18 23:57 11/09/18 23:57 11/10/18 00:05 11/09/18 23:57 11/09/18 23:57 Plan Activity: no restrictions Weight Bearing Status: Full Weight Bearing Diet: low fat, low salt, advance as tolerated Follow up with: MERLENE FLEMING MD [Primary Care Provider] - 7 Days Prescriptions: Pantoprazole [Protonix TAB] 40 mg PO BID #30 tablet
[2018-11-10 13:43] VITALS: BP 125/64
[2018-11-10] MEDS: NORCO PO PRN (15:03)
== END 2018-11-10 17:31 | disposition home or self-care (01) | DRG 375 ==
LOC: ED 17:35 → 4A 19:07
PROVIDERS: ADMIT Internal Medicine; ATTEND Internal Medicine
PROC: 0DB48ZX Excision of Esophagogastric Junction, Via Natural or Artificial Opening Endoscopic, Diagnostic (ICD-10-PCS; 2018-11-07)
PROC: 4B02XTZ Measurement of Cardiac Defibrillator, External Approach (ICD-10-PCS; principal; 2018-11-09)
DX: C15.5 Malignant neoplasm of lower third of esophagus (principal); I48.92 Unspecified atrial flutter; I47.2 Ventricular tachycardia; I42.0 Dilated cardiomyopathy; I50.22 Chronic systolic (congestive) heart failure; K92.0 Hematemesis; J44.9 Chronic obstructive pulmonary disease, unspecified; I25.10 Atherosclerotic heart disease of native coronary artery without angina pectoris; M10.9 Gout, unspecified; E11.9 Type 2 diabetes mellitus without complications; E66.01 Morbid (severe) obesity due to excess calories; E87.6 Hypokalemia; G47.33 Obstructive sleep apnea (adult) (pediatric); I48.0 Paroxysmal atrial fibrillation; I27.20 Pulmonary hypertension, unspecified; I11.0 Hypertensive heart disease with heart failure; M19.90 Unspecified osteoarthritis, unspecified site; F17.210 Nicotine dependence, cigarettes, uncomplicated; D64.9 Anemia, unspecified; Z86.711 Personal history of pulmonary embolism; Z87.19 Personal history of other diseases of the digestive system; Z95.810 Presence of automatic (implantable) cardiac defibrillator; Z79.4 Long term (current) use of insulin; Z68.39 Body mass index [BMI] 39.0-39.9, adult; Z90.49 Acquired absence of other specified parts of digestive tract; Z80.9 Family history of malignant neoplasm, unspecified; Z91.018 Allergy to other foods; Z79.01 Long term (current) use of anticoagulants; Z79.899 Other long term (current) drug therapy; Z86.718 Personal history of other venous thrombosis and embolism
CPT/HCPCS: 36415; 71045; 71260; 80048; 80053; 82271; 82550; 82553; 82962; 83735; 84132; 84484; 85014; 85018; 85025; 85610; 85730; 86850; 86900; 86901; 88305; 88313; 88341; 88342; 90686; 93005; 93010; 96365; 96367; 96375; 96376; 99406; G0378; C9113; J1170; J1815; J2354; J2405; J3010; J3480; J7030; J7040; J7050; Q9967

== ENCOUNTER 2018-11-18 13:57 | Inpatient (IN) | payer MEDICAID ==
[2018-11-18] MEDS ORDERED: SODIUM CHLORIDE FLUSH SYRINGE 10 ML IV PRN (14:34)
[2018-11-18] MEDS ORDERED: LANOXIN PO SCH ×2 (17:00→22:00)
[2018-11-18] MEDS ORDERED: K-DUR PO SCH (17:00)
[2018-11-18 17:21] LABS: Basophils # (Auto) 0.1 K/mm3 (0.0-0.1); Basophils % (Auto) 0.9 % (0.0-1.8); Eosinophils # (Auto) 0.1 K/mm3 (0.0-0.4); Eosinophils % (Auto) 0.8 % (0.0-4.3); Hematocrit 35.5 % (35.5-45.6); Hemoglobin 11.2 gm/dl (11.8-15.2); Lymphocytes # (Auto) 1.4 K/mm3 (1.2-5.4); Lymphocytes % (Auto) 13.5 % (13.4-35.0); Mean Corpuscular HGB Conc 32 % (32-34); Mean Corpuscular Volume 82 fl (84-94); Monocytes # (Auto) 0.9 K/mm3 (0.0-0.8); Monocytes % (Auto) 8.8 % (0.0-7.3); Platelet Count 342 K/mm3 (140-440); Red Blood Count 4.33 M/mm3 (3.65-5.03); Red Cell Distribution Width 18.9 % (13.2-15.2)
[2018-11-18 17:39] LABS: Alanine Aminotransferase 8 units/L (7-56); Albumin 3.5 g/dL (3.9-5); BUN/Creatinine Ratio 7; Blood Urea Nitrogen 8 mg/dL (9-20); Calcium 9.2 mg/dL (8.4-10.2); Hemolysis Index 3
[2018-11-18 17:42] LABS: INR 1.12 (0.87-1.13); Partial Thromboplastin Time 30.3 Sec. (24.2-36.6)
[2018-11-18] MEDS ORDERED: ZESTRIL PO SCH (18:00)
[2018-11-18] MEDS: HumaLOG SUB-Q SCH (19:04)
[2018-11-18] MEDS: LOVENOX SUB-Q SCH (19:09)
[2018-11-18] MEDS: ASPIRIN PO SCH (19:10)
[2018-11-18] MEDS: MAG-OX PO SCH (19:10)
[2018-11-18] MEDS: DILAUDID IV PRN (19:10)
[2018-11-18] MEDS: AMARYL PO SCH (19:15)
--- NOTE | 2018-11-18 21:45 | History and Physical Report ---
History of Present Illness Date of examination: 11/18/18 Date of admission: 11/18/18 16:07 Chief complaint: Left-sided chest pain - 2 days History of present illness: Patient is a 47-year-old gentleman who has a history of atrial luis, V. tach, nonischemic cardiomyopathy with ejection fraction of 10-15%, poorly differentiated esophageal cancer, esophageal varices, GI bleeding, chronic lower back pain, morbid obesity, type current tobacco use disorder who presented to my office today complaining of left-sided chest pain. Severity is 10 out of 10. Radiating to the neck. Positive for diaphoresis and shortness of breath. In my office visit was found to be diaphoretic and was doubling over from pain. Direct admission was therefore requested. On admission initial level of troponin was normal. CT scan of 11/09/2017 showed no evidence of dissection. Patient was commenced on oxygen and nitroglycerin and aspirin and Dilaudid. Past History Past Medical History: GERD, heart failure, other (assessment cancer, atrial flutter, sleep apnea, GERD,) Past Surgical History: Other (AICD placement) Social history: smoking. denies: alcohol abuse, prescription drug abuse Family history: no significant family history Medications and Allergies Allergies Allergy/AdvReac Type Severity Reaction Status Date / Time cephalexin monohydrate AdvReac Hives Verified 05/17/18 21:55 [From Keflex] lidocaine AdvReac Hives Verified 05/17/18 21:55 mushrooms Allergy Anaphylaxis Uncoded 05/17/18 21:55 Home Medications Medication Instructions Recorded Confirmed Last Taken Type Ferrous Sulfate [Feosol 325 MG tab] 325 mg PO BID 05/19/15 11/18/18 11/18/18 08:00 History Magnesium Oxide 400 mg PO DAILY 08/31/16 11/18/18 11/18/18 08:00 History glipiZIDE [Glucotrol] 10 mg PO QDAY 03/16/17 11/18/18 11/18/18 08:00 History 10MG Carvedilol [Coreg] 25 mg PO BID #60 tablet 06/10/17 11/18/18 11/18/18 09:00 Rx Allopurinol 100 mg PO BID 09/05/17 11/18/18 11/18/18 08:00 History Digoxin 125 mcg PO DAILY 10/14/17 11/18/18 11/18/18 09:00 History Torsemide [Demadex] 100 mg PO QDAY #30 tablet 10/19/17 11/18/18 11/18/18 08:00 Rx Potassium Chloride [K-Dur] 20 meq PO BID #30 tablet 03/29/18 11/18/18 11/18/18 08:00 Rx Spironolactone [Aldactone] 50 mg PO QDAY 03/29/18 11/18/18 11/18/18 10:00 History Insulin Glargine,Hum.rec.anlog 20 unit SQ HS 09/29/18 11/18/18 11/18/18 09:00 History [Lantus] Lisinopril [Zestril TAB] 2.5 mg PO BID 11/05/18 11/18/18 11/18/18 10:00 History Pantoprazole [Protonix TAB] 40 mg PO BID #30 tablet 11/10/18 11/18/18 11/18/18 08:00 Rx Active Meds: Active Medications Aspirin (Aspirin) 325 mg PO QDAY [facility] Last Admin: 11/18/18 19:10 Dose: 325 mg Documented by: Carvedilol (Coreg) 12.5 mg PO BID [facility] Digoxin (Lanoxin) 0.125 mg PO DAILY [facility] Last Admin: 11/18/18 19:09 Dose: 0.125 mg Documented by: Enoxaparin Sodium (Lovenox) 40 mg SUB-Q QDAY [facility] Last Admin: 11/18/18 19:09 Dose: 40 mg Documented by: Glimepiride (Amaryl) 4 mg PO BIDDIAB [facility] Last Admin: 11/18/18 19:15 Dose: 4 mg Documented by: Hydromorphone HCl (Dilaudid) 2 mg IV Q6H PRN PRN Reason: Pain, Chest/Cardiac Last Admin: 11/18/18 19:10 Dose: 2 mg Documented by: Insulin Glargine (Lantus) 20 units SUB-Q QHS [facility] Insulin Human Lispro (Humalog) 0 unit SUB-Q ACHS [facility]; Protocol Last Admin: 11/18/18 19:04 Dose: Not Given Documented by: Lisinopril (Zestril) 2.5 mg PO QDAY [facility] Last Admin: 11/18/18 19:09 Dose: 2.5 mg Documented by: Magnesium Oxide (Mag-Ox) 400 mg PO QDAY [facility] Last Admin: 11/18/18 19:10 Dose: 400 mg Documented by: Potassium Chloride (K-Dur) 20 meq PO BID [facility] Sodium Chloride (Sodium Chloride Flush Syringe 10 Ml) 10 ml IV BID [facility] Sodium Chloride (Sodium Chloride Flush Syringe 10 Ml) 10 ml IV PRN PRN PRN Reason: LINE FLUSH Torsemide (Demadex) 100 mg PO DAILY@0600 [facility] Review of systems Constitutional: Well Nourished and Well developed. In severe distress from chest pain. Diaphoretic. Ambulates with a cane. Head: NC/ AT Eyes: Denies any visual impairments. No discharge from the eyes Nose: Denies any rhinorrhea or epistaxis Throats: Denies any post nasal drainage. Ears: Denies any hearing deficits Cardiovascular system: Has chest pain, shortness of breath, orthopnea, paroxysmal nocturnal dyspnea, Respiratory system: Denies any cough, difficulty breathing, wheezing, pleuritic chest pain, Gastrointestinal system: Denies any abdominal pain, nausea vomiting, hematemesis or melena. Neurological system: Denies any headache, slurred speech, facial droop, lateralizing weakness Genitalia system: Denies any dysuria, urinary frequency or urgency, urethral discharge Skin: No rashes, hyperpigmented spots. Hematological: Denies any cervical tenderness hemorrhages or petechia. Immunological: Denies any multiple septic spots, Lymphatic: Denies any generalized lymphadenopathy. Endocrine: Denies any polyuria, polydipsia, polyphagia. No heat or cold intolerance. Musculoskeletal system: No joint pain or swelling. Psych: No visual, tactile, auditory or hallucination Exam - Physical Exam Narrative exam: Constitutional: Well-nourished well-developed. Motor distress from chest pain, diaphoretic, ambulates with a cane. Head: Normocephalic atraumatic Eyes: Pupils are equal round and reactive to light Nose: No enlarged turbinates, no septal deviation. Mouth: Moist mucous membranes. Neck: Supple no thyromegaly. No bruit. No JVD Heart: Regular rate and rhythm, S1-S2 normal. No rubs murmurs or gallop Lungs: Clear to auscultation bilaterally. no rales or rhonchi Abdomen: Soft, nontender. Bowel sound are present. Extremities: No edema, no cyanosis, no clubbing. Neuro: Alert oriented Oriented x3. No focal sensory or motor deficit. Skin: No rashes or hyperpigmented spots Musculoskeletal system: No joint pain or swelling Hematological: No petechia or subcutanous hemorrhages. Immunological: No multiple septic spots on the skin Lymphatic: No generalized lymphadenopathy Psychiatry: Euthymic. Calm. - Constitutional Vitals: Temp Pulse Resp BP Pulse Ox 97.9 F 70 20 123/70 97 11/18/18 16:48 11/18/18 16:48 11/18/18 16:48 11/18/18 16:48 11/18/18 16:48 Results - Labs CBC & Chem 7: 11/18/18 16:55 11/18/18 17:01 Labs: Abnormal lab results 11/18/18 11/18/18 Range/Units 16:55 17:01 Hgb 11.2 L (11.8-15.2) gm/dl MCV 82 L (84-94) fl MCH 26 L (28-32) pg RDW 18.9 H (13.2-15.2) % [place] % (Auto) 8.8 H (0.0-7.3) % [place] # 0.9 H (0.0-0.8) K/mm3 Seg Neutrophils % 76.0 H (40.0-70.0) % Sodium 135 L (137-145) mmol/L Chloride 94.9 L (98-107) mmol/L BUN 8 L (9-20) mg/dL Glucose 104 H (75-100) mg/dL Albumin 3.5 L (3.9-5) g/dL Assessment and Plan Patient is a 47-year-old gentleman who has a history of atrial luis, V. tach, nonischemic cardiomyopathy with ejection fraction of 10-15%, poorly differentiated esophageal cancer, esophageal varices, GI bleeding, chronic lower back pain, morbid obesity, type current tobacco use disorder who presented to my office today complaining of left-sided chest pain. Severity is 10 out of 10. Radiating to the neck. Positive for diaphoresis and shortness of breath. In my office visit was found to be diaphoretic and was doubling over from pain. Direct admission was therefore requested. On admission initial level of troponin was normal. EKG is pending at the time of this evaluation. CT scan of 11/09/2017 showed no evidence of dissection. Patient was commenced on oxygen and nitroglycerin and aspirin and Dilaudid. - Chest pain could be related Related to recently diagnosed esophageal cancer However would diaphoretic and persistent chest pain further evaluation will be done Commence patient on oxygen, nitroglycerin, aspirin, Dilaudid. Follow-up on EKG. Serial cardiac enzymes. Cardiology consult - History of atrial flutter Stable so far -Nonischemic cardiomyopathy status post AICD with EF of 10-15% Continue with Aki, diuretics, beta brandon, spironolactone. Strict I's and O's Daily weights - History of esophageal varices Likely secondary to his cardiac cancer Stable for now. To follow up with gi on out pt - Poorly differentiated esophageal cancer Oncology. He was to see the oncologist in office for onset of chest pain. Continue with soft and liquid diet -DVT prophylaxis with Lovenox and GI with Pepcid
[2018-11-18] MEDS ORDERED: DEMADEX PO SCH (22:00)
[2018-11-18] MEDS ORDERED: COREG PO SCH (22:00)
[2018-11-18] MEDS: K-DUR PO SCH (22:38)
[2018-11-18] MEDS: LANTUS SUB-Q SCH (22:38)
[2018-11-18] MEDS: COREG PO SCH (22:38)
[2018-11-18] MEDS: DEMADEX PO SCH (22:49)
[2018-11-19] MEDS: DILAUDID IV PRN ×3 (02:33→19:03)
[2018-11-19] MEDS: DEMADEX PO SCH (06:13)
[2018-11-19 07:07] LABS: Basophils # (Auto) 0.1 K/mm3 (0.0-0.1); Basophils % (Auto) 0.9 % (0.0-1.8); Eosinophils # (Auto) 0.2 K/mm3 (0.0-0.4); Eosinophils % (Auto) 1.6 % (0.0-4.3); Hematocrit 34.9 % (35.5-45.6); Hemoglobin 11.1 gm/dl (11.8-15.2); Lymphocytes # (Auto) 1.4 K/mm3 (1.2-5.4); Mean Corpuscular HGB Conc 32 % (32-34); Mean Corpuscular Volume 82 fl (84-94); Monocytes % (Auto) 10.3 % (0.0-7.3); Platelet Count 299 K/mm3 (140-440); Red Blood Count 4.24 M/mm3 (3.65-5.03); Red Cell Distribution Width 18.8 % (13.2-15.2)
[2018-11-19 07:09] LABS: Alanine Aminotransferase 8 units/L (7-56); Albumin 3.5 g/dL (3.9-5); BUN/Creatinine Ratio 6; Blood Urea Nitrogen 7 mg/dL (9-20); Calcium 8.9 mg/dL (8.4-10.2); Hemolysis Index 4
[2018-11-19] MEDS: HumaLOG SUB-Q SCH ×4 (07:38→23:09)
[2018-11-19] MEDS: AMARYL PO SCH (08:18)
[2018-11-19] MEDS: LOVENOX SUB-Q SCH (09:14)
[2018-11-19] MEDS: SODIUM CHLORIDE FLUSH SYRINGE 10 ML IV SCH ×2 (09:14→23:09)
[2018-11-19] MEDS: K-DUR PO SCH ×2 (09:15→23:06)
[2018-11-19] MEDS: COREG PO SCH ×2 (09:15→22:35)
[2018-11-19] MEDS: MAG-OX PO SCH (09:15)
[2018-11-19] MEDS: ASPIRIN PO SCH (09:15)
[2018-11-19] MEDS: FEOSOL PO SCH ×2 (09:15→23:10)
[2018-11-19] MEDS: ZYLOPRIM PO SCH ×2 (09:15→23:06)
[2018-11-19] MEDS: ZESTRIL PO SCH ×2 (09:16→23:07)
[2018-11-19] MEDS: ALDACTONE PO SCH (09:23)
--- NOTE | 2018-11-19 10:22 | Progress Note ---
Assessment and Plan Patient is a 47-year-old gentleman who has a history of atrial luis, V. tach, nonischemic cardiomyopathy with ejection fraction of 10-15%, poorly differentiated esophageal cancer, esophageal varices, GI bleeding, chronic lower back pain, morbid obesity, type current tobacco use disorder who presented to my office today complaining of left-sided chest pain. Severity is 10 out of 10. Radiating to the neck. Positive for diaphoresis and shortness of breath. In my office visit was found to be diaphoretic and was doubling over from pain. Direct admission was therefore requested. On admission initial level of troponin was normal. EKG is pending at the time of this evaluation. CT scan of 11/09/2017 showed no evidence of dissection. Patient was commenced on oxygen and nitroglycerin and aspirin and Dilaudid. - Chest pain could be related Related to recently diagnosed esophageal cancer. However with diaphoresis and persistent Chest pain further w/u was most expedient Continue with oxygen, nitroglycerin, aspirin, Dilaudid. EKG showed NSR. Troponine x 2 were normal. Cardiology consult - History of atrial flutter Stable so far in NSR -Nonischemic cardiomyopathy status post AICD with EF of 10-15% Continue with Aki, diuretics, beta brandon, spironolactone. Strict I's and O's Daily weights - Poorly differentiated esophageal cancer Oncology. He was to see the oncologist in office for onset of chest pain. Continue with soft and liquid diet - History of esophageal varices Likely secondary to his esophageal cancer Stable for now. To follow up with GI on out pt -DVT prophylaxis with Lovenox and GI with Pepcid Time spent: 25mins Subjective Date of service: 11/19/18 Principal diagnosis: Chest pain, poorly differemntiated esophageal cancer, card iomyopahnty Interval history: Chest pain is improved. No orthopnea or PND Objective - Exam Narrative Exam: Constitutional: Well-nourished well-developed. In no obvious distress. Head: Normocephalic atraumatic Eyes: Pupils are equal round and reactive to light Nose: No enlarged turbinates, no septal deviation. Mouth: Moist mucous membranes. Neck: Supple no thyromegaly. No bruit. No JVD Heart: Regular rate and rhythm, S1-S2 normal. No rubs murmurs or gallop Lungs: Clear to auscultation bilaterally. no rales or rhonchi Abdomen: Soft, nontender. Bowel sound are present. Extremities: No edema, no cyanosis, no clubbing. Neuro: Alert oriented Oriented x3. No focal sensory or motor deficit. Skin: No rashes or hyperpigmented spots Musculoskeletal system: No joint pain or swelling Hematological: No petechia or subcutanous hemorrhages. Immunological: No multiple septic spots on the skin Lymphatic: No generalized lymphadenopathy Psychiatry: Euthymic. Calm. - Constitutional Vitals: Vital Signs - 12hr 11/18/18 11/19/18 11/19/18 23:26 00:12 05:03 Temperature 98.4 F 98.5 F Pulse Rate 70 71 79 Respiratory 20 20 Rate Blood Pressure 116/71 128/76 O2 Sat by Pulse 97 98 Oximetry 11/19/18 11/19/18 11/19/18 08:21 08:50 08:54 Temperature 98.6 F Pulse Rate 38 L Respiratory 20 18 Rate Blood Pressure 105/68 O2 Sat by Pulse 96 98 Oximetry 11/19/18 11/19/18 11/19/18 09:15 09:16 09:23 Temperature Pulse Rate 66 66 66 Respiratory Rate Blood Pressure 105/68 105/68 105/68 O2 Sat by Pulse Oximetry 11/19/18 09:29 Temperature Pulse Rate Respiratory 20 Rate Blood Pressure O2 Sat by Pulse Oximetry - Labs CBC & Chem 7: 11/19/18 06:33 11/19/18 06:33 Labs: Abnormal lab results 11/18/18 11/18/18 11/18/18 Range/Units 16:55 17:01 22:12 Hgb 11.2 L (11.8-15.2) gm/dl Hct (35.5-45.6) % MCV 82 L (84-94) fl MCH 26 L (28-32) pg RDW 18.9 H (13.2-15.2) % [place] % (Auto) 8.8 H (0.0-7.3) % [place] # 0.9 H (0.0-0.8) K/mm3 Seg Neutrophils % 76.0 H (40.0-70.0) % Sodium 135 L (137-145) mmol/L Potassium (3.6-5.0) mmol/L Chloride 94.9 L (98-107) mmol/L Carbon Dioxide (22-30) mmol/L BUN 8 L (9-20) mg/dL Glucose 104 H (75-100) mg/dL POC Glucose 125 H (70-105) Magnesium (1.7-2.3) mg/dL Albumin 3.5 L (3.9-5) g/dL 11/19/18 11/19/18 Range/Units 06:33 06:33 Hgb 11.1 L (11.8-15.2) gm/dl Hct 34.9 L (35.5-45.6) % MCV 82 L (84-94) fl MCH 26 L (28-32) pg RDW 18.8 H (13.2-15.2) % [place] % (Auto) 10.3 H (0.0-7.3) % [place] # 1.0 H (0.0-0.8) K/mm3 Seg Neutrophils % 73.2 H (40.0-70.0) % Sodium 136 L (137-145) mmol/L Potassium 2.9 L* (3.6-5.0) mmol/L Chloride 90.9 L (98-107) mmol/L Carbon Dioxide 32 H (22-30) mmol/L BUN 7 L (9-20) mg/dL Glucose (75-100) mg/dL POC Glucose (70-105) Magnesium 1.50 L (1.7-2.3) mg/dL Albumin 3.5 L (3.9-5) g/dL
[2018-11-19] MEDS ORDERED: MAGNESIUM SULFATE 2GM/50ML 2 GM/50 ML BAG IV ONE (11:00)
[2018-11-19] MEDS ORDERED: NACL 0.9% 1000 ML 1,000 ML IV SCH (12:00)
[2018-11-19] MEDS ORDERED: NACL 0.9% 1000 ML 1,000 ML ONE (12:07)
[2018-11-19] MEDS: KCL 10MEQ/100ML 10 MEQ/100 ML BAG IV SCH ×3 (12:18→16:44)
--- NOTE | 2018-11-19 12:59 | Consultation ---
History of Present Illness Consult date: 11/19/18 Consult reason: chest pain History of present illness: 47-year-old man with a history of obesity, obstructive sleep apnea, nonischemic cardiomyopathy who is recently undergoing GI and oncology workup for esophageal mass. He is admitted to the hospital at this time with atypical chest pain. He is currently comfortable, described upper chest pain which was not radiating, poorly characterized. ECG was a ventricular pacemaker rhythm. Past History Past Medical History: COPD, GERD, heart failure, other (assessment cancer, atrial flutter, sleep apnea, GERD,) Past Surgical History: Other (AICD placement) Social history: smoking. denies: alcohol abuse, prescription drug abuse Family history: no significant family history Medications and Allergies Allergies Allergy/AdvReac Type Severity Reaction Status Date / Time cephalexin monohydrate AdvReac Hives Verified 05/17/18 21:55 [From Keflex] lidocaine AdvReac Hives Verified 05/17/18 21:55 mushrooms Allergy Anaphylaxis Uncoded 05/17/18 21:55 Home Medications Medication Instructions Recorded Confirmed Last Taken Type Ferrous Sulfate [Feosol 325 MG tab] 325 mg PO BID 05/19/15 11/18/18 11/18/18 08:00 History Magnesium Oxide 400 mg PO DAILY 08/31/16 11/18/18 11/18/18 08:00 History glipiZIDE [Glucotrol] 10 mg PO QDAY 03/16/17 11/18/18 11/18/18 08:00 History 10MG Carvedilol [Coreg] 25 mg PO BID #60 tablet 06/10/17 11/18/18 11/18/18 09:00 Rx Allopurinol 100 mg PO BID 09/05/17 11/18/18 11/18/18 08:00 History Digoxin 125 mcg PO DAILY 10/14/17 11/18/18 11/18/18 09:00 History Torsemide [Demadex] 100 mg PO QDAY #30 tablet 10/19/17 11/18/18 11/18/18 08:00 Rx Potassium Chloride [K-Dur] 20 meq PO BID #30 tablet 03/29/18 11/18/18 11/18/18 08:00 Rx Spironolactone [Aldactone] 50 mg PO QDAY 03/29/18 11/18/18 11/18/18 10:00 History Insulin Glargine,Hum.rec.anlog 20 unit SQ HS 09/29/18 11/18/18 11/18/18 09:00 History [Lantus] Lisinopril [Zestril TAB] 2.5 mg PO BID 11/05/18 11/18/18 11/18/18 10:00 History Pantoprazole [Protonix TAB] 40 mg PO BID #30 tablet 11/10/18 11/18/18 11/18/18 08:00 Rx Active Meds: Active Medications Allopurinol (Zyloprim) 100 mg PO BID [facility] Last Admin: 11/19/18 09:15 Dose: 100 mg Documented by: Aspirin (Aspirin) 325 mg PO QDAY [facility] Last Admin: 11/19/18 09:15 Dose: 325 mg Documented by: Carvedilol (Coreg) 25 mg PO BID [facility] Last Admin: 11/19/18 09:15 Dose: 25 mg Documented by: Digoxin (Lanoxin) 0.125 mg PO DAILY@1700 [facility] Enoxaparin Sodium (Lovenox) 40 mg SUB-Q QDAY [facility] Last Admin: 11/19/18 09:14 Dose: 40 mg Documented by: Ferrous Sulfate (Feosol) 325 mg PO BID [facility] Last Admin: 11/19/18 09:15 Dose: 325 mg Documented by: Glimepiride (Amaryl) 4 mg PO BIDDIAB [facility] Last Admin: 11/19/18 08:18 Dose: 4 mg Documented by: Hydromorphone HCl (Dilaudid) 2 mg IV Q6H PRN PRN Reason: Pain, Chest/Cardiac Last Admin: 11/19/18 09:29 Dose: 2 mg Documented by: Magnesium Sulfate (Magnesium Sulfate 2gm/50ml) 2 gm in 50 mls @ 25 mls/hr IV ON CE ONE Stop: 11/19/18 12:59 Last Admin: 11/19/18 11:06 Dose: 25 mls/hr Documented by: Potassium Chloride (Kcl 10meq/100ml) 10 meq in 100 mls @ 100 mls/hr IV Q1H [facility] Stop: 11/19/18 13:59 Last Admin: 11/19/18 12:18 Dose: 100 mls/hr Documented by: Insulin Glargine (Lantus) 20 units SUB-Q QHS [facility] Last Admin: 11/18/18 22:38 Dose: 20 units Documented by: Insulin Human Lispro (Humalog) 0 unit SUB-Q ACHS [facility]; Protocol Last Admin: 11/19/18 07:38 Dose: Not Given Documented by: Lisinopril (Zestril) 2.5 mg PO BID [facility] Last Admin: 11/19/18 09:16 Dose: 2.5 mg Documented by: Magnesium Oxide (Mag-Ox) 400 mg PO QDAY [facility] Last Admin: 11/19/18 09:15 Dose: 400 mg Documented by: Potassium Chloride (K-Dur) 20 meq PO BID [facility] Last Admin: 11/19/18 09:15 Dose: 20 meq Documented by: Sodium Chloride (Sodium Chloride Flush Syringe 10 Ml) 10 ml IV BID [facility] Last Admin: 11/19/18 09:14 Dose: 10 ml Documented by: Sodium Chloride (Sodium Chloride Flush Syringe 10 Ml) 10 ml IV PRN PRN PRN Reason: LINE FLUSH Spironolactone (Aldactone) 50 mg PO QDAY [facility] Last Admin: 11/19/18 09:23 Dose: Not Given Documented by: Torsemide (Demadex) 100 mg PO DAILY@0600 [facility] Last Admin: 11/19/18 06:13 Dose: 100 mg Documented by: Review of Systems Cardiovascular: chest pain, shortness of breath, no orthopnea, no palpitations, no rapid/irregular heart beat, no edema, no syncope, no lightheadedness Physical Examination Vital Signs Temp Pulse Resp BP Pulse Ox 97.9 F 70 20 123/70 97 11/18/18 16:48 11/18/18 16:48 11/18/18 16:48 11/18/18 16:48 11/18/18 16:48 General appearance: obese HEENT: Positive: PERRL Cardiac: Positive: Reg Rate and Rhythm Lungs: Positive: Decreased Breath Sounds Neuro: Positive: Grossly Intact Abdomen: Positive: Soft Male genitourinary: Positive: deferred Skin: Positive: Clear Extremities: Absent: edema Results 11/19/18 06:33 11/19/18 06:33 Cardiac Enzymes 11/18/18 11/19/18 Range/Units 17:01 06:33 AST 15 13 (5-40) units/L Coagulation 11/18/18 Range/Units 17:01 PT 14.8 (12.2-14.9) Sec. INR 1.12 (0.87-1.13) APTT 30.3 (24.2-36.6) Sec. CBC 11/18/18 11/19/18 Range/Units 16:55 06:33 WBC 10.1 9.9 (4.5-11.0) K/mm3 RBC 4.33 4.24 (3.65-5.03) M/mm3 Hgb 11.2 L 11.1 L (11.8-15.2) gm/dl Hct 35.5 34.9 L (35.5-45.6) % Plt Count 342 299 (140-440) K/mm3 Lymph # 1.4 1.4 (1.2-5.4) K/mm3 [place] # 0.9 H 1.0 H (0.0-0.8) K/mm3 Eos # 0.1 0.2 (0.0-0.4) K/mm3 Baso # 0.1 0.1 (0.0-0.1) K/mm3 Comprehensive Metabolic Panel 11/18/18 11/19/18 Range/Units 17:01 06:33 Sodium 135 L 136 L (137-145) mmol/L Potassium 3.6 2.9 L* (3.6-5.0) mmol/L Chloride 94.9 L 90.9 L (98-107) mmol/L Carbon Dioxide 28 32 H (22-30) mmol/L BUN 8 L 7 L (9-20) mg/dL Creatinine 1.1 1.1 (0.8-1.5) mg/dL Glucose 104 H 88 (75-100) mg/dL Calcium 9.2 8.9 (8.4-10.2) mg/dL AST 15 13 (5-40) units/L ALT 8 8 (7-56) units/L Alkaline Phosphatase 70 71 (35-129) units/L Total Protein 7.4 7.2 (6.3-8.2) g/dL Albumin 3.5 L 3.5 L (3.9-5) g/dL EKG interpretations Pacemaker: ventricular pacing w/capt Assessment and Plan - Patient Problems (1) Atypical chest pain Current Visit: Yes Status: Acute Plan to address problem: Pain is atypical, no further cardiac workup is indicated. We'll continue medical therapy for his underlying nonischemic cardiomyopathy.
[2018-11-20] MEDS: DILAUDID IV PRN ×2 (00:06→06:46)
[2018-11-20] MEDS: LANTUS SUB-Q SCH (00:51)
[2018-11-20] MEDS: DEMADEX PO SCH (05:51)
[2018-11-20 06:17] LABS: Basophils # (Auto) 0.1 K/mm3 (0.0-0.1); Basophils % (Auto) 1.1 % (0.0-1.8); Eosinophils # (Auto) 0.1 K/mm3 (0.0-0.4); Eosinophils % (Auto) 1.3 % (0.0-4.3); Hematocrit 33.9 % (35.5-45.6); Hemoglobin 10.8 gm/dl (11.8-15.2); Lymphocytes # (Auto) 1.5 K/mm3 (1.2-5.4); Lymphocytes % (Auto) 14.5 % (13.4-35.0); Mean Corpuscular HGB Conc 32 % (32-34); Mean Corpuscular Volume 82 fl (84-94); Monocytes # (Auto) 1.3 K/mm3 (0.0-0.8); Monocytes % (Auto) 12.4 % (0.0-7.3); Platelet Count 299 K/mm3 (140-440); Red Blood Count 4.13 M/mm3 (3.65-5.03); Red Cell Distribution Width 18.3 % (13.2-15.2)
[2018-11-20 06:45] LABS: Alanine Aminotransferase 8 units/L (7-56); Albumin 3.2 g/dL (3.9-5); BUN/Creatinine Ratio 6; Blood Urea Nitrogen 7 mg/dL (9-20); Calcium 9.1 mg/dL (8.4-10.2); Hemolysis Index 2
--- NOTE | 2018-11-20 07:30 | Event Note ---
Date: 11/20/18 [id number] pt keen for sx eval his low EF may make him ineligible will d/w GI / sx team - reg surgeon at tertiary center
[2018-11-20] MEDS: HumaLOG SUB-Q SCH (08:19)
[2018-11-20] MEDS: AMARYL PO SCH (08:50)
[2018-11-20] MEDS: ALDACTONE PO SCH (09:26)
[2018-11-20] MEDS: ZESTRIL PO SCH (09:26)
[2018-11-20] MEDS: ASPIRIN PO SCH (09:28)
[2018-11-20] MEDS: COREG PO SCH (09:29)
[2018-11-20] MEDS: FEOSOL PO SCH (09:29)
[2018-11-20] MEDS: ZYLOPRIM PO SCH (09:30)
[2018-11-20] MEDS: MAG-OX PO SCH (09:30)
[2018-11-20] MEDS: SODIUM CHLORIDE FLUSH SYRINGE 10 ML IV SCH (09:32)
[2018-11-20] MEDS: LOVENOX SUB-Q SCH (09:32)
[2018-11-20] MEDS: K-DUR PO SCH (09:32)
--- NOTE | 2018-11-20 09:52 | Discharge Summary ---
Providers - Providers Date of Admission: 11/18/18 16:07 Date of discharge: 11/20/18 Attending physician: MERLENE FLEMING 11/18/18 21:59 Consult to Physician [CONS] Routine Comment: Consulting Provider: OMID ALVARES Physician Instructions: Reason For Exam: chest pain Consult to Physician [CONS] Routine Comment: Consulting Provider: BUD SIMENTAL Physician Instructions: Reason For Exam: Esophagial cancer Primary care physician: MERLENE FLEMING Hospitalization Reason for admission: Chest pain Pertinent studies: EKG that showed pace rhythm Procedures: none Hospital course: Patient is a 47-year-old gentleman who has a history of atrial flutter, V. tach, nonischemic cardiomyopathy with ejection fraction of 10-15%, poorly differentiated esophageal cancer, esophageal varices, GI bleeding, chronic lower back pain, morbid obesity, type current tobacco use disorder who presented to my office today complaining of left-sided chest pain. Severity is 10 out of 10. Radiating to the neck. Positive for diaphoresis and shortness of breath. In my office visit was found to be diaphoretic and was doubling over from pain. Direct admission was therefore requested. On admission initial level of troponin was normal. CT scan of 11/09/2017 showed no evidence of dissection. Patient was commenced on oxygen and nitroglycerin and aspirin and Dilaudid. Serail cardiac enzymes were normal. EKG showed pacer rhythm. 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 Will d/c home today as chest pain has resolved. He said he has all his home meds but need only pain medications Disposition: DC-01 TO HOME OR SELFCARE Time spent for discharge: 36 mins - Discharge Diagnoses (1) Atypical chest pain Status: Acute (2) ACS (acute coronary syndrome) Status: Acute (3) SUZETTE (acute kidney injury) Status: Acute (4) Acute CHF (congestive heart failure) Status: Acute Qualifiers: Heart failure type: systolic Qualified Code(s): I50.21 - Acute systolic (congestive) heart failure (5) Acute chest pain Status: Acute Core Measure Documentation - Palliative Care Palliative Care/ Comfort Measures: Not Applicable - Core Measures Any of the following diagnoses?: none Exam - Physical Exam Narrative exam: Constitutional: Well-nourished well-developed. In no obvious distress. Head: Normocephalic atraumatic Eyes: Pupils are equal round and reactive to light Nose: No enlarged turbinates, no septal deviation. Mouth: Moist mucous membranes. Neck: Supple no thyromegaly. No bruit. No JVD Heart: Regular rate and rhythm, S1-S2 normal. No rubs murmurs or gallop Lungs: Clear to auscultation bilaterally. no rales or rhonchi Abdomen: Soft, nontender. Bowel sound are present. Extremities: No edema, no cyanosis, no clubbing. Neuro: Alert oriented Oriented x3. No focal sensory or motor deficit. Skin: No rashes or hyperpigmented spots Musculoskeletal system: No joint pain or swelling Hematological: No petechia or subcutanous hemorrhages. Immunological: No multiple septic spots on the skin Lymphatic: No generalized lymphadenopathy Psychiatry: Euthymic. Calm. - Constitutional Vitals: Temp Pulse Resp BP Pulse Ox 99.1 F 69 18 117/65 96 11/20/18 09:13 11/20/18 09:29 11/20/18 09:12 11/20/18 09:29 11/20/18 09:45 Plan Diet: low cholesterol, low salt Follow up with: MERLENE FLEMING MD [Primary Care Provider] - 7 Days Prescriptions: Glimepiride [Amaryl] 2 mg PO BID #60 tablet HYDROcodone/ACETAMINOPHEN [Hydrocodone-Acetamin 7.5-300] 1 each PO Q12HR #8 tablet Potassium Chloride [K-Dur] 20 meq PO BID #30 tablet
[2018-11-20 12:12] VITALS: BP 112/70
--- NOTE | 2018-11-20 21:52 | Consultation ---
REFERRING PHYSICIAN: Joel Lynne MD REASON FOR CONSULTATION: Esophageal cancer. HISTORY OF PRESENT ILLNESS: I saw the patient 47-year-old male in the medical floor. The patient was recently seen in the hospital setting in October. At that time, he was found to have esophageal cancer. He also had lymphadenopathy. He had history of congestive heart failure, ejection fraction of 15%, history of diabetes, DVT and PE, sleep apnea, VT. He had history of loss of weight. He was discharged with a plan to see in the clinic from what I understood the patient is going for surgical evaluation. He came to the hospital because of chest pain in epigastric area, lower chest area for 2 days, score of 10/10. There is also history of shortness of breath and sweating was admitted for same. At this time chest pain is better, but he still have same. No headache, no visual disturbances. No ear discharge, no nosebleeds, no vomiting, no diarrhea. He is able to eat some solid food. No seizure or syncope. No loss of consciousness. PAST MEDICAL HISTORY: As above, esophageal cancer, GERD, heart failure. PAST SURGICAL HISTORY: AICD placement. SOCIAL HISTORY: History of smoking present. FAMILY HISTORY: Noncontributory. ALLERGIES: KEFLEX, LIDOCAINE, MUSHROOMS. PHYSICAL EXAMINATION: VITAL SIGNS: Temperature 98, pulse 71, respirations 12, BP 87/47. No pallor. No icterus. NECK: No neck lymph nodes. HEART: S1, S2. LUNGS: Clear to auscultation. ABDOMEN: Soft. Excess skin folding and subcutaneous tissue due to loss of weight. EXTREMITIES: Moving all extremities. NEUROLOGIC: Alert, awake, answers questions appropriately. LABORATORY DATA: White cell 10, hemoglobin 10, MCV 82, platelet 299, potassium 3.1, creatinine 1.1, bilirubin 0.7. RADIOLOGY: CT chest was done on 11/09/2018 that time distal esophageal thickening, paraesophageal lymph node 4.2 cm and another one 3.5 cm. ASSESSMENT: 1. Esophageal carcinoma, undifferentiated, at least stage 3 based on 10 lymph nodes of N2. The patient is keen for surgical evaluation. His ejection fraction being low may deem him nonsurgical candidate, but he wants to pursue same. 2. History of chest pain, likely secondary to tumor. 3. History of varices. 4. History of hematemesis. 5. History of diabetes. 6. History of deep venous thrombosis and pulmonary embolism. 7. History of sleep apnea. 8. I will try to see if I could arrange for surgical evaluation. I will talk to the GI team regarding same. JOB# [id number] RAPHAEL/BEATA
== END 2018-11-20 13:34 | disposition home or self-care (01) | DRG 374 ==
LOC: 4A 13:57 → UNDOADMIN 13:57 → 4A 16:07
PROVIDERS: ADMIT Family Medicine; ATTEND Family Medicine
DX: C15.9 Malignant neoplasm of esophagus, unspecified (principal); I50.21 Acute systolic (congestive) heart failure; E87.6 Hypokalemia; N17.9 Acute kidney failure, unspecified; R07.89 Other chest pain; I42.8 Other cardiomyopathies; I24.9 Acute ischemic heart disease, unspecified; E11.9 Type 2 diabetes mellitus without complications; K21.9 Gastro-esophageal reflux disease without esophagitis; G47.33 Obstructive sleep apnea (adult) (pediatric); E66.9 Obesity, unspecified; J44.9 Chronic obstructive pulmonary disease, unspecified; F17.200 Nicotine dependence, unspecified, uncomplicated; E83.42 Hypomagnesemia; Z68.38 Body mass index [BMI] 38.0-38.9, adult; Z86.718 Personal history of other venous thrombosis and embolism; Z95.810 Presence of automatic (implantable) cardiac defibrillator; Z86.711 Personal history of pulmonary embolism; Z91.018 Allergy to other foods; Z79.4 Long term (current) use of insulin; Z79.899 Other long term (current) drug therapy
CPT/HCPCS: 36415; 80053; 82962; 83735; 84100; 84484; 85025; 85610; 85730; 93005; 93010; G0378; J1170; J1650; J1815; J3475; J3480; J7030

== ENCOUNTER 2018-12-10 23:14 | Inpatient (IN) | payer MEDICAID ==
[2018-12-10] MEDS ORDERED: ZOFRAN IV ONE (23:52)
[2018-12-10] MEDS ORDERED: DILAUDID IV ONE (23:52)
[2018-12-11 00:38] LABS: Basophils # (Auto) 0.1 K/mm3 (0.0-0.1); Basophils % (Auto) 0.9 % (0.0-1.8); Eosinophils # (Auto) 0.3 K/mm3 (0.0-0.4); Eosinophils % (Auto) 2.7 % (0.0-4.3); Hematocrit 33.1 % (35.5-45.6); Hemoglobin 10.6 gm/dl (11.8-15.2); Lymphocytes # (Auto) 1.2 K/mm3 (1.2-5.4); Lymphocytes % (Auto) 11.1 % (13.4-35.0); Mean Corpuscular HGB Conc 32 % (32-34); Mean Corpuscular Volume 79 fl (84-94); Monocytes % (Auto) 9.5 % (0.0-7.3); Platelet Count 307 K/mm3 (140-440); Red Blood Count 4.19 M/mm3 (3.65-5.03); Red Cell Distribution Width 17.3 % (13.2-15.2)
--- NOTE | 2018-12-11 00:56 | Cat Scan Report ---
FINAL REPORT EXAM: CT ABDOMEN PELVIS WO CON HISTORY: abd pain n/v TECHNIQUE: Routine axial imaging was obtained of the abdomen and pelvis without oral or IV contrast. Sagittal and coronal reconstructions were reviewed. Comparison is made to the study of 10/11/2018. FINDINGS: Images through lung bases once again reveal diffuse mucosal thickening in the distal esophagus suspic ious for neoplasia. This is unchanged from the previous study. There are non specific interstitial ch anges in both lung bases also. There is considerable pneumoperitoneum in the upper abdomen. The balloon of the gastrostomy catheter abuts the anterior wall of the body of the stomach. It may not be adequately seated in the stomach wh ich would account for the pneumoperitoneum. The gallbladder has been removed. The liver and biliary tree appear normal. The pancreas, spleen and adrenal glands appear normal. The kidneys reveal 2.7 cm cortical cyst in the left kidney. There is no evidence of hydronephrosis. There calcification of the abdominal aorta. The bowel loops are normal i n caliber. There is residual oral contrast in the colon. There is no evidence of abscess or free flui d. The appendix is not enlarged. In the pelvis the prostate gland is mildly enlarged. The bladder tiffanie ears normal. The skeletal structures reveal hardware along the posterior aspect of the right acetabul um. There is disc degeneration in the lumbar spine. The subcutaneous tissues reveal 7.8 cm x 3.4 cm b y 6.1 cm area of induration at the L3 level left midline posteriorly. Correlation with clinical exam needed. There is also subcutaneous air around the gastrostomy tube site along the anterior wall of th e abdomen. IMPRESSION: Pneumoperitoneum. This may be on the basis of the gastrostomy tube not adequately seated within the s tomach. No evidence of bowel obstruction, ileus or abscess. Cholecystectomy. Small cortical cyst left kidney. Stable soft tissue fullness in the distal esophagus in a patient with known esophageal neoplasia. Small umbilical hernia containing omental fat. Prostatic enlargement. Postsurgical changes along the posterior wall of the right acetabulum along with arthritic changes vicki mbar spine. Area of soft tissue induration in the subcutaneous tissues posteriorly at the L3 level with measureme nts as described. Correlation with clinical exam needed. The pneumoperitoneum was discussed with Dr. Perry at 12:50 a.m. on 12/11/2018.
--- NOTE | 2018-12-11 00:58 | XRay Report ---
FINAL REPORT EXAM: XR CHEST 1V AP HISTORY: cp n/v TECHNIQUE: A portable upright view of the chest was obtained and compared to the study of 11/05/2018. FINDINGS: The heart size is at the upper limits of normal. There is soft tissue fullness in both dwain. Underlyi ng adenopathy cannot be excluded. The lungs are negative for infiltrates or effusions. There is a pac emaker overlying the left chest wall with the leads in the right atrium and right ventricle. There is a small amount of free air in the upper abdomen. The skeletal structures otherwise are unchanged. IMPRESSION: Soft tissue fullness in the dwain suspicious for bilateral hilar adenopathy. No evidence of congestion infiltrates or effusions. Pneumoperitoneum. This was discussed earlier with the ER physician when discovered on the CT scan of the abdomen and pelvis.
[2018-12-11 01:01] LABS: Alanine Aminotransferase 5 units/L (7-56); Albumin 3.3 g/dL (3.9-5); BUN/Creatinine Ratio 11; Blood Urea Nitrogen 12 mg/dL (9-20); Calcium 9.1 mg/dL (8.4-10.2); Hemolysis Index 0
[2018-12-11] MEDS ORDERED: LEVAQUIN 500MG/100ML 500 MG/100 ML BAG IV ONE (01:05)
[2018-12-11] MEDS ORDERED: FLAGYL 500 MG/100 ML 500 MG/100 ML BAG IV ONE (01:05)
[2018-12-11 01:10] LABS: INR 1.17 (0.87-1.13)
--- NOTE | 2018-12-11 01:10 | Emergency Department Report ---
ED General Adult HPI - General Chief complaint: Abdominal Pain Stated complaint: VOMITING BLOOD/FEEDING TUBE PAIN Time Seen by Provider: 12/10/18 23:37 Source: patient, EMS (ems notes not available at time of chart dictation), RN notes reviewed, old records reviewed Mode of arrival: Stretcher Limitations: No Limitations - History of Present Illness Initial comments: This is a 47-year-old gentleman. I have evaluated this patient in the past. Past medical history includes esophageal cancer, obesity, obstructive sleep apnea, nonischemic cardiomyopathy, recent diagnosis of pulmonary embolus, currently off systemic anticoagulation (xarelto), recent placement of a G-tube around 2-3 weeks ago at [facility]. Patient presents to the emergency room with EMS today, with a complaint of central nonradiating nonexertional chest pain, nausea, vomiting, hematemesis, no bright red blood per rectum, diffuse abdominal pain, and discharge from his G- tube site. Symptoms are constant, do not radiate anywhere, worse with palpation, and decreased with hydromorphone. Patient reports that his oncologist is Dr. Gooden and that his esophageal cancer specialist is at [place]. He reports he has not initiated chemotherapy or radiation as of yet. -: Gradual, hour(s) (reports that symptoms started at 9:00 yesterday evening.) Location: abdomen Radiation: non-radiation Severity scale (0 -10): 10 Quality: aching Improves with: rest Worsens with: movement Associated Symptoms: chest pain, malaise, nausea/vomiting. denies: confusion, cough, diaphoresis, fever/chills, headaches, loss of appetite, rash, seizure, shortness of breath, syncope, weakness - Related Data Home Medications Medication Instructions Recorded Confirmed Last Taken Magnesium Oxide 400 mg PO DAILY 08/31/16 12/10/18 11/18/18 08:00 Insulin Glargine,Hum.rec.anlog 20 unit SQ HS 09/29/18 12/10/18 11/18/18 09:00 [Lantus] Digoxin [Lanoxin] 0.125 mg PO DAILY 12/10/18 12/10/18 Unknown Gabapentin [Neurontin] 300 mg PO DAILY 12/10/18 12/10/18 Unknown Omeprazole 20 mg PO DAILY 12/10/18 12/10/18 Unknown glipiZIDE [Glipizide] 10 mg PO DAILY 12/10/18 12/10/18 Unknown tiZANidine 4 mg PO BID 12/10/18 12/10/18 Unknown Previous Rx's Medication Instructions Recorded Last Taken Type Carvedilol [Coreg] 25 mg PO BID #60 tablet 06/10/17 11/18/18 09:00 Rx Torsemide [Demadex] 100 mg PO QDAY #30 tablet 10/19/17 11/18/18 08:00 Rx Allopurinol [Zyloprim] 100 mg PO BID tablet 11/20/18 Unknown Rx Aspirin [Aspirin TAB] 325 mg PO QDAY tablet 11/20/18 Unknown Rx Ferrous Sulfate [Feosol 325 MG tab] 325 mg PO BID tablet 11/20/18 Unknown Rx Lisinopril [Zestril TAB] 2.5 mg PO BID tablet 11/20/18 Unknown Rx Magnesium Oxide [Mag-Ox] 400 mg PO QDAY tablet 11/20/18 Unknown Rx Potassium Chloride [K-Dur] 20 meq PO BID tablet 11/20/18 Unknown Rx Potassium Chloride [K-Dur] 20 meq PO BID #30 tablet 11/20/18 Unknown Rx Allergies Allergy/AdvReac Type Severity Reaction Status Date / Time cephalexin monohydrate AdvReac Hives Verified 05/17/18 21:55 [From Keflex] lidocaine AdvReac Hives Verified 05/17/18 21:55 mushrooms Allergy Anaphylaxis Uncoded 05/17/18 21:55 ED Review of Systems ROS: Stated complaint: VOMITING BLOOD/FEEDING TUBE PAIN Other details as noted in HPI Constitutional: malaise. denies: fever Eyes: denies: vision change ENT: denies: epistaxis Respiratory: cough, shortness of breath Cardiovascular: chest pain Gastrointestinal: abdominal pain, hematemesis. denies: melena, hematochezia Genitourinary: denies: dysuria Musculoskeletal: arthralgia, myalgia Skin: rash, lesions Neurological: denies: confusion Psychiatric: anxiety ED Past Medical Hx - Past Medical History Previous Medical History?: Yes Hx Hypertension: Yes Hx Heart Attack/AMI: No Hx Congestive Heart Failure: Yes Hx Diabetes: Yes Hx Deep Vein Thrombosis: Yes Hx Pulmonary Embolism: Yes Hx Liver Disease: No Hx Renal Disease: Yes Hx Sickle Cell Disease: No Hx Arthritis: Yes Hx Asthma: Yes Hx COPD: Yes Hx Tuberculosis: No Hx HIV: No Additional medical history: sleep apnea. anemia. severe pulmonary HTN. atrial fibrillation treated with cardioversion 11/2017. Hx of VT/VF;. esophageal varices - Surgical History Past Surgical History?: Yes Hx Coronary Stent: No Hx Pacemaker: Yes Hx Internal Defibrillator: Yes (AICD) Hx Cholecystectomy: Yes Additional Surgical History: defibrillator, pacemaker; bands in stomach., GI tube left - Social History Smoking Status: Never Smoker Substance Use Type: None - Medications Home Medications: Home Medications Medication Instructions Recorded Confirmed Last Taken Type Magnesium Oxide 400 mg PO DAILY 08/31/16 12/10/18 11/18/18 08:00 History Carvedilol [Coreg] 25 mg PO BID #60 tablet 06/10/17 12/10/18 11/18/18 09:00 Rx Torsemide [Demadex] 100 mg PO QDAY #30 tablet 10/19/17 12/10/18 11/18/18 08:00 Rx Insulin Glargine,Hum.rec.anlog 20 unit SQ HS 09/29/18 12/10/18 11/18/18 09:00 History [Lantus] Allopurinol [Zyloprim] 100 mg PO BID tablet 11/20/18 12/10/18 Unknown Rx Aspirin [Aspirin TAB] 325 mg PO QDAY tablet 11/20/18 12/10/18 Unknown Rx Ferrous Sulfate [Feosol 325 MG tab] 325 mg PO BID tablet 11/20/18 12/10/18 Unknown Rx Lisinopril [Zestril TAB] 2.5 mg PO BID tablet 11/20/18 12/10/18 Unknown Rx Magnesium Oxide [Mag-Ox] 400 mg PO QDAY tablet 11/20/18 12/10/18 Unknown Rx Potassium Chloride [K-Dur] 20 meq PO BID tablet 11/20/18 12/10/18 Unknown Rx Potassium Chloride [K-Dur] 20 meq PO BID #30 tablet 11/20/18 12/10/18 Unknown Rx Digoxin [Lanoxin] 0.125 mg PO DAILY 12/10/18 12/10/18 Unknown History Gabapentin [Neurontin] 300 mg PO DAILY 12/10/18 12/10/18 Unknown History Omeprazole 20 mg PO DAILY 12/10/18 12/10/18 Unknown History glipiZIDE [Glipizide] 10 mg PO DAILY 12/10/18 12/10/18 Unknown History tiZANidine 4 mg PO BID 12/10/18 12/10/18 Unknown History ED Physical Exam - General Limitations: No Limitations General appearance: alert, in no apparent distress, obese - Head Head exam: Present: atraumatic, normocephalic - Eye Eye exam: Present: normal appearance, EOMI. Absent: nystagmus - ENT ENT exam: Present: normal exam, normal orophraynx, mucous membranes moist, normal external ear exam - Neck Neck exam: Present: normal inspection, full ROM. Absent: tenderness, meningismus - Respiratory Respiratory exam: Present: normal lung sounds bilaterally. Absent: respiratory distress - Cardiovascular Cardiovascular Exam: Present: regular rate, normal rhythm, normal heart sounds. Absent: bradycardia, tachycardia, irregular rhythm, systolic murmur, diastolic murmur, rubs, gallop - GI/Abdominal GI/Abdominal exam: Present: soft, tenderness, other (there is a G-tube noted in the left hemiabdomen with scant discharge, no redness, pus or streaking). Absent: distended, guarding, rebound, rigid, pulsatile mass - Rectal Rectal exam: Present: deferred - Extremities Exam Extremities exam: Present: normal inspection, full ROM, pedal edema. Absent: calf tenderness - Back Exam Back exam: Present: normal inspection, full ROM. Absent: CVA tenderness (R), paraspinal tenderness, vertebral tenderness - Neurological Exam Neurological exam: Present: alert, oriented X3, other (Extraocular movements intact. Tongue midline. No facial droop. Facial sensation intact to light touch in the V1, V2, V3 distribution bilaterally. 5 and 5 strength in 4 extremities.. Sensation is intact to light touch in 4 extremities.). Absent: motor sensory deficit - Psychiatric Psychiatric exam: Present: normal affect, normal mood - Skin Skin exam: Present: warm, dry, intact, normal color. Absent: rash ED Course Vital Signs 12/10/18 12/10/18 12/10/18 23:39 23:43 23:45 Temperature 97.8 F Pulse Rate 77 77 Respiratory 21 21 12 Rate Blood Pressure 131/84 131/84 Blood Pressure 131/84 [Left] O2 Sat by Pulse 98 98 Oximetry 12/11/18 12/11/18 12/11/18 00:00 00:01 00:07 Temperature Pulse Rate 77 74 Respiratory 13 16 16 Rate Blood Pressure 118/87 118/87 Blood Pressure [Left] O2 Sat by Pulse Oximetry - Reevaluation(s) Reevaluation #1: 12/11/18 01:14 Differential diagnosis, including but not limited to: Upper GI bleed, Cheyanne- Husain tear, GERD, gastritis, esophageal cancer, pneumonia, acute coronary syndrome, malposition of G-tube Assessment and plan: 47-year-old gentleman with multiple complaints. Complaint #1: Chest pain patient has had multiple evaluations by cardiology at this hospital, they have not recommended additional ischemic workup, he has a known nonischemic cardiomyopathy. Troponin negative 1, EKG unchanged from prior, we will treat his symptoms. Doubt recurrent pulmonary embolus as he is not tachycardic or hypoxic, he was recently diagnosed with a pulmonary embolus at another hospital, and is currently taking systemic anticoagulation; xarelto Given complaint of hematemesis, and pneumoperitoneum, I will withhold systemic anticoagulation at this point in time. Complaint #2: Abdominal pain, hematemesis, pain in abdomen, and discharge around G-tube: We will treat his pain and nausea, we will give proton pump inhibitor. Discussed with gastroenterology, Dr. Segal, who will see the patient in the morning. Recommends leaving the tube in place, to see if it may be salvaged. Agrees with antibiotic therapy. Discussed with general surgery, Dr. Spencer, who can see the patient in consultation. Also recommends leaving the tube in place. Recommends not using the tube for any therapies at this point in time. Dr. Webb, the hospital physician will admit the patient to the medical service. 12/11/18 01:19 ED Medical Decision Making - Lab Data Result diagrams: 12/11/18 00:14 12/11/18 00:14 Vital Signs 12/10/18 12/10/18 12/10/18 23:39 23:43 23:45 Temperature 97.8 F Pulse Rate 77 77 Respiratory 21 21 12 Rate Blood Pressure 131/84 131/84 Blood Pressure 131/84 [Left] O2 Sat by Pulse 98 98 Oximetry 12/11/18 12/11/18 12/11/18 00:00 00:01 00:07 Temperature Pulse Rate 77 74 Respiratory 13 16 16 Rate Blood Pressure 118/87 118/87 Blood Pressure [Left] O2 Sat by Pulse Oximetry Lab Results 12/11/18 12/11/18 12/11/18 Range/Units 00:14 00:14 00:14 WBC 10.8 (4.5-11.0) K/mm3 RBC 4.19 (3.65-5.03) M/mm3 Hgb 10.6 L (11.8-15.2) gm/dl Hct 33.1 L (35.5-45.6) % MCV 79 L (84-94) fl MCH 25 L (28-32) pg MCHC 32 (32-34) % RDW 17.3 H (13.2-15.2) % Plt Count 307 (140-440) K/mm3 Lymph % (Auto) 11.1 L (13.4-35.0) % [place] % (Auto) 9.5 H (0.0-7.3) % Eos % (Auto) 2.7 (0.0-4.3) % Baso % (Auto) 0.9 (0.0-1.8) % Lymph # 1.2 (1.2-5.4) K/mm3 [place] # 1.0 H (0.0-0.8) K/mm3 Eos # 0.3 (0.0-0.4) K/mm3 Baso # 0.1 (0.0-0.1) K/mm3 Seg Neutrophils % 75.8 H (40.0-70.0) % Seg Neutrophils # 8.2 H (1.8-7.7) K/mm3 Sodium 137 (137-145) mmol/L Potassium 4.1 (3.6-5.0) mmol/L Chloride 96.5 L (98-107) mmol/L Carbon Dioxide 28 (22-30) mmol/L Anion Gap 17 mmol/L BUN 12 (9-20) mg/dL Creatinine 1.1 (0.8-1.5) mg/dL Estimated GFR > 60 ml/min BUN/Creatinine Ratio 11 % Glucose 117 H (75-100) mg/dL Calcium 9.1 (8.4-10.2) mg/dL Magnesium 1.90 (1.7-2.3) mg/dL Total Bilirubin 0.50 (0.1-1.2) mg/dL AST 9 (5-40) units/L ALT 5 L (7-56) units/L Alkaline Phosphatase 61 (35-129) units/L Troponin T < 0.010 (0.00-0.029) ng/mL Total Protein 6.6 (6.3-8.2) g/dL Albumin 3.3 L (3.9-5) g/dL Albumin/Globulin Ratio 1.0 % Digoxin 0.3 L (0.9-2.0) ng/mL - EKG Data -: EKG Interpreted by Me - EKG Data When compared to previous EKG there are: no significant change 12/11/18 01:20 Atrial sensed, ventricular paced rhythm, good capture, left axis deviation, QTC prolonged, abnormal EKG, not consistent with ST elevation myocardial infarction. - Radiology Data Radiology results: report reviewed, image reviewed interpreted by me: X-ray of the chest shows very mild pneumoperitoneum, enlarged cardiac silhouette. Referring Physician: MURRAY JOHNSON Patient Name: ANGELES ALARCON Date of : 1970 Sex: Male Report Date: 2018-12-11 Report Status: Finalized Findings [facility] [address] [place] [address] Cat Scan Report Signed Patient: ANGELES ALARCON MR#: [id number] : 1970 Acct:[id number] Age/Sex: 47 / M ADM Date: 12/10/18 Loc: ED Attending Dr: Ordering Physician: MURRAY JOHNSON MD Date of Service: 12/11/18 Procedure(s): CT abdomen pelvis wo con Accession Number(s): [id number] cc: MURRAY JOHNSON MD FINAL REPORT EXAM: CT ABDOMEN PELVIS WO CON HISTORY: abd pain n/v TECHNIQUE: Routine axial imaging was obtained of the abdomen and pelvis without oral or IV contrast. Sagittal and coronal reconstructions were reviewed. Comparison is made to the study of 10/11/2018. FINDINGS: Images through lung bases once again reveal diffuse mucosal thickening in the distal esophagus suspicious for neoplasia. This is unchanged from the previous study. There are non specific in terstitial changes in both lung bases also. There is considerable pneumoperitoneum in the upper abdomen. The balloon of the gastrostomy catheter abuts the anterior wall of the body of the stomach. It may not be adequately seated in the stomach which would account for the pneumoperitoneum. The gallbladder has been removed. The liver and biliary tree appear normal. The pancreas, spleen and adrenal glands appear normal. The kidneys reveal 2.7 cm cortical cyst in the left kidney. There is no evidence of hydronephrosis. There calcification of the abdominal aorta. The bowel loops are normal in caliber. There is residual oral contrast in the colon. There is no evidence of abscess or free fluid. The appendix is not enlarged. In the pelvis the prostate gland is mildly enlarged. The bladder appears normal. The skeletal structures reveal hardware along the posterior aspect of the right acetabulum. There is disc degeneration in the lumbar spine. The subcutaneous tissues reveal 7.8 cm x 3.4 cm by 6.1 cm area of induration at the L3 level left midline posteriorly. Correlation with clinical exam needed. There is also subcutaneous air around the gastrostomy tube site along the anterior wall of the abdomen. IMPRESSION: Pneumoperitoneum. This may be on the basis of the gastrostomy tube not adequately seated within the stomach. No evidence of bowel obstruction, ileus or abscess. Cholecystectomy. Small cortical cyst left kidney. Stable soft tissue fullness in the distal esophagus in a patient with known esophageal neoplasia. Small umbilical hernia containing omental fat. Prostatic enlargement. Postsurgical changes along the posterior wall of the right acetabulum along with arthritic changes lumbar spine. Area of soft tissue induration in the subcutaneous tissues posteriorly at the L3 level with measurements as described. Correlation with clinical exam needed. The pneumoperitoneum was discussed with Dr. Perry at 12:50 a.m. on 12/11/2018. Transcribed By: RB Dictated By: REDDY SANTOS MD Electronically Authenticated By: REDDY SANTOS MD Signed Date/Time: 12/11/18 0056 Critical care attestation.: If time is entered above; I have spent that time in minutes in the direct care of this critically ill patient, excluding procedure time. ED Disposition Clinical Impression: Chest pain, Cardiomyopathy, Vomiting blood, Gastrostomy tube dysfunction Disposition: OP ADMIT IP TO THIS HOSP Is pt being admited?: Yes Condition: Good Instructions: Chest Pain (ED) Referrals: DANIELLE MONTERROSO [Primary Care Provider] - 3-5 Days
[2018-12-11 01:11] LABS: Partial Thromboplastin Time 37.6 Sec. (24.2-36.6)
[2018-12-11] MEDS ORDERED: PROTONIX IV ONE (01:17)
--- NOTE | 2018-12-11 02:56 | History and Physical Report ---
History of Present Illness Date of examination: 12/11/18 History of present illness: 47-year-old man with a history of hypertension, diabetes, gout, BRITTON, COPD, CHF, recently diagnosed with esophageal cancer, esophageal varices comes to the emergency room complaining hematemesis, 1 episode. Status post G-tube placement on at [facility], he now has noticed some drainage from around 2 tube. Also complaining of chest pain in the left chest which he describes as sharp, constant, intensity 5/10, no radiation associated with nausea, vomiting. Denies shortness of breath, palpitation, no diaphoresis Review Of Systems: Constitutional: no fever, chills, weight loss Ears, eyes, nose, mouth and throat: no nasal congestion, no nasal discharge, no sinus pressure, blurry vision, diplopia Neck: No neck pain or rigidity. Cardiovascular: +chest pain, palpitations Respiratory: No cough Gastrointestinal: abdominal pain, hematochezia Genitourinary : no dysuria, frequency , hematuria Musculoskeletal: no joint swelling or muscle ache Integumentary: no rash, no pruritis Neurological: no parathesias, focal weakness Endocrine: no cold or heat intolerance, no polyuria or polydipsia Hematologic/Lymphatic: no easy bruising, no easy bleeding, no gland swelling Allergic/Immunologic: no urticaria, no angioedema. PAST MEDICAL HISTORY:hypertension, diabetes, gout, BRITTON, COPD, CHF, esophageal cancer, esophageal varices PAST SURGICAL HISTORY:AICD, hip replacement, gall bladder SOCIAL HISTORY: Denies alcohol, tobacco, drugs FAMILY HISTORY:cad, DM Medications and Allergies Allergies Allergy/AdvReac Type Severity Reaction Status Date / Time cephalexin monohydrate AdvReac Hives Verified 05/17/18 21:55 [From Keflex] lidocaine AdvReac Hives Verified 05/17/18 21:55 mushrooms Allergy Anaphylaxis Uncoded 05/17/18 21:55 Home Medications Medication Instructions Recorded Confirmed Last Taken Type Magnesium Oxide 400 mg PO DAILY 08/31/16 12/10/18 11/18/18 08:00 History Carvedilol [Coreg] 25 mg PO BID #60 tablet 06/10/17 12/10/18 11/18/18 09:00 Rx Torsemide [Demadex] 100 mg PO QDAY #30 tablet 10/19/17 12/10/18 11/18/18 08:00 Rx Insulin Glargine,Hum.rec.anlog 20 unit SQ HS 09/29/18 12/10/18 11/18/18 09:00 History [Lantus] Allopurinol [Zyloprim] 100 mg PO BID tablet 11/20/18 12/10/18 Unknown Rx Aspirin [Aspirin TAB] 325 mg PO QDAY tablet 11/20/18 12/10/18 Unknown Rx Ferrous Sulfate [Feosol 325 MG tab] 325 mg PO BID tablet 11/20/18 12/10/18 Unknown Rx Lisinopril [Zestril TAB] 2.5 mg PO BID tablet 11/20/18 12/10/18 Unknown Rx Magnesium Oxide [Mag-Ox] 400 mg PO QDAY tablet 11/20/18 12/10/18 Unknown Rx Potassium Chloride [K-Dur] 20 meq PO BID tablet 11/20/18 12/10/18 Unknown Rx Potassium Chloride [K-Dur] 20 meq PO BID #30 tablet 11/20/18 12/10/18 Unknown Rx Digoxin [Lanoxin] 0.125 mg PO DAILY 12/10/18 12/10/18 Unknown History Gabapentin [Neurontin] 300 mg PO DAILY 12/10/18 12/10/18 Unknown History Omeprazole 20 mg PO DAILY 12/10/18 12/10/18 Unknown History glipiZIDE [Glipizide] 10 mg PO DAILY 12/10/18 12/10/18 Unknown History tiZANidine 4 mg PO BID 12/10/18 12/10/18 Unknown History Exam - Physical Exam Narrative exam: General Apperance: The patient lying in bed, breathing comfortable HEENT: Normocephalic, atraumatic. Pupils equally round and reactive to light, EOMI, no sclericterus or JVD or thyromegaly or nodule. , no carotid bruit, mucous membranes moist, no exudate or erythema Heart: S1-S2, regular is rhythm Lungs: Clear to auscultation bilaterally, breathing comfortable Abdomen: Positive bowel sounds, soft, nontender, nondistended, no organomegaly Extremities: No edema cyanosis clubbing Skin: no rash, nodule, warm and dry Neuro: cranial nerves 2-12 intact, speech is fluent, motor/sensory intact - Constitutional Vitals: Temp Pulse Resp BP Pulse Ox 98.5 F 78 24 137/79 98 12/10/18 23:39 12/11/18 02:00 12/11/18 02:00 12/11/18 02:00 12/10/18 23:43 Results - Labs CBC & Chem 7: 12/11/18 04:40 12/11/18 04:40 Labs: Abnormal lab results 12/11/18 12/11/18 12/11/18 Range/Units 00:14 00:14 00:14 Hgb 10.6 L (11.8-15.2) gm/dl Hct 33.1 L (35.5-45.6) % MCV 79 L (84-94) fl MCH 25 L (28-32) pg RDW 17.3 H (13.2-15.2) % Lymph % (Auto) 11.1 L (13.4-35.0) % [place] % (Auto) 9.5 H (0.0-7.3) % [place] # 1.0 H (0.0-0.8) K/mm3 Seg Neutrophils % 75.8 H (40.0-70.0) % Seg Neutrophils # 8.2 H (1.8-7.7) K/mm3 PT 15.7 H (12.2-14.9) Sec. INR 1.17 H (0.87-1.13) APTT 37.6 H (24.2-36.6) Sec. Chloride 96.5 L (98-107) mmol/L Glucose 117 H (75-100) mg/dL ALT 5 L (7-56) units/L Albumin 3.3 L (3.9-5) g/dL Digoxin (0.9-2.0) ng/mL 12/11/18 Range/Units 00:14 Hgb (11.8-15.2) gm/dl Hct (35.5-45.6) % MCV (84-94) fl MCH (28-32) pg RDW (13.2-15.2) % Lymph % (Auto) (13.4-35.0) % [place] % (Auto) (0.0-7.3) % [place] # (0.0-0.8) K/mm3 Seg Neutrophils % (40.0-70.0) % Seg Neutrophils # (1.8-7.7) K/mm3 PT (12.2-14.9) Sec. INR (0.87-1.13) APTT (24.2-36.6) Sec. Chloride (98-107) mmol/L Glucose (75-100) mg/dL ALT (7-56) units/L Albumin (3.9-5) g/dL Digoxin 0.3 L (0.9-2.0) ng/mL - Imaging and Cardiology Chest x-ray: report reviewed CT scan - abdomen: report reviewed CT scan - pelvis: report reviewed Assessment and Plan Assessment Hematemesis Pneumoperitoneum Chest pain probably secondary to esophageal cancer Esophageal cancer with varices CHF, stable COPD Hypertension Diabetes Depression Obstructive sleep apnea Morbid obesity History of pulmonary emboli Plan Admit to medicine Start IV Protonix, monitor hemoglobin, consult GI Consult surgery, serial abdominal exam, IV morphine Check cardiac enzymes, consult cardiology Hold antihypertensives Check fingersticks Continue appropiate outpatient medications DVT prophylaxis
[2018-12-11] MEDS: MORPHINE IV PRN ×2 (03:06→10:22)
[2018-12-11] MEDS ORDERED: ZOFRAN IV PRN (03:12)
[2018-12-11] MEDS ORDERED: SODIUM CHLORIDE FLUSH SYRINGE 10 ML IV PRN (03:12)
[2018-12-11] MEDS ORDERED: D50W (25GM) Syringe IV PRN (04:20)
[2018-12-11] MEDS ORDERED: DILAUDID IV ONE (04:39)
[2018-12-11 05:27] LABS: Basophils # (Auto) 0.1 K/mm3 (0.0-0.1); Basophils % (Auto) 0.6 % (0.0-1.8); Eosinophils # (Auto) 0.3 K/mm3 (0.0-0.4); Eosinophils % (Auto) 3.3 % (0.0-4.3); Hematocrit 33.8 % (35.5-45.6); Hemoglobin 10.4 gm/dl (11.8-15.2); Lymphocytes # (Auto) 1.3 K/mm3 (1.2-5.4); Lymphocytes % (Auto) 13.2 % (13.4-35.0); Mean Corpuscular HGB Conc 31 % (32-34); Mean Corpuscular Volume 80 fl (84-94); Monocytes % (Auto) 9.6 % (0.0-7.3); Platelet Count 295 K/mm3 (140-440); Red Blood Count 4.23 M/mm3 (3.65-5.03); Red Cell Distribution Width 17.8 % (13.2-15.2)
[2018-12-11 05:45] LABS: Creatine Kinase MB 1.2 ng/mL (0.0-4.0)
[2018-12-11 05:52] LABS: BUN/Creatinine Ratio 11; Blood Urea Nitrogen 12 mg/dL (9-20); Hemolysis Index 1
[2018-12-11] MEDS: NEURONTIN PO SCH (10:00)
[2018-12-11] MEDS: ZYLOPRIM PO SCH ×2 (10:00→21:45)
[2018-12-11] MEDS: PROTONIX IV SCH ×2 (10:00→21:27)
[2018-12-11] MEDS: FEOSOL PO SCH ×2 (10:00→21:45)
[2018-12-11] MEDS: SODIUM CHLORIDE FLUSH SYRINGE 10 ML IV SCH ×2 (10:00→21:46)
[2018-12-11] MEDS: MAG-OX PO SCH (10:00)
[2018-12-11] MEDS: ZANAFLEX PO SCH ×2 (10:00→21:46)
[2018-12-11] MEDS ORDERED: TIZANIDINE 4 MG PO SCH (10:00)
[2018-12-11] MEDS: DEMADEX PO SCH (10:00)
[2018-12-11] MEDS: COREG PO SCH ×2 (10:00→21:44)
--- NOTE | 2018-12-11 10:10 | Consultation ---
Addendum entered and electronically signed by OMID ALVARES MD 12/11/18 11:48: Diagnosed with PE recently at [facility] and started on xarelto. He denies bleeding on xarelto Presenting this admission with G-tube problems being addressed by GI and surgery Xarelto on hold for the time being No cardiac work-up is needed Original Note: History of Present Illness Consult date: 12/11/18 Consult reason: chest pain History of present illness: Patient is a 47 year old man with a history of paroxysmal ventricular fibr illation, atrial flutter status post YARELY guided cardioversion. He has a nonischemic cardiomyopathy and has an indwelling cardiac defibrillator. He has obstructive sleep apnea, hypertension, severe pulmonary hypertension, recently diagnosed with esophageal cancer with recent G-tube placement and pulmonary embolism. Patient is not on oral anticoagulation due to prior esophageal bleeding and tumor. He was brought in with abdominal pain with vomiting admitted with possible G- tube malfunction. Patient is awaiting GI evaluation. Patient denies chest pain and unusual shortness of breath. Patient denies AICD discharge. Digoxin level of 0.3. ECG is AV paced rhythm. Medications and Allergies Allergies Allergy/AdvReac Type Severity Reaction Status Date / Time cephalexin monohydrate AdvReac Hives Verified 05/17/18 21:55 [From Keflex] lidocaine AdvReac Hives Verified 05/17/18 21:55 mushrooms Allergy Anaphylaxis Uncoded 05/17/18 21:55 Home Medications Medication Instructions Recorded Confirmed Last Taken Type Magnesium Oxide 400 mg PO DAILY 08/31/16 12/10/18 11/18/18 08:00 History Carvedilol [Coreg] 25 mg PO BID #60 tablet 06/10/17 12/10/18 11/18/18 09:00 Rx Torsemide [Demadex] 100 mg PO QDAY #30 tablet 10/19/17 12/10/18 11/18/18 08:00 Rx Insulin Glargine,Hum.rec.anlog 20 unit SQ HS 09/29/18 12/10/18 11/18/18 09:00 History [Lantus] Allopurinol [Zyloprim] 100 mg PO BID tablet 11/20/18 12/10/18 Unknown Rx Aspirin [Aspirin TAB] 325 mg PO QDAY tablet 11/20/18 12/10/18 Unknown Rx Ferrous Sulfate [Feosol 325 MG tab] 325 mg PO BID tablet 11/20/18 12/10/18 Unknown Rx Lisinopril [Zestril TAB] 2.5 mg PO BID tablet 11/20/18 12/10/18 Unknown Rx Magnesium Oxide [Mag-Ox] 400 mg PO QDAY tablet 11/20/18 12/10/18 Unknown Rx Potassium Chloride [K-Dur] 20 meq PO BID tablet 11/20/18 12/10/18 Unknown Rx Potassium Chloride [K-Dur] 20 meq PO BID #30 tablet 11/20/18 12/10/18 Unknown Rx Digoxin [Lanoxin] 0.125 mg PO DAILY 12/10/18 12/10/18 Unknown History Gabapentin [Neurontin] 300 mg PO DAILY 12/10/18 12/10/18 Unknown History Omeprazole 20 mg PO DAILY 12/10/18 12/10/18 Unknown History glipiZIDE [Glipizide] 10 mg PO DAILY 12/10/18 12/10/18 Unknown History tiZANidine 4 mg PO BID 12/10/18 12/10/18 Unknown History Active Meds: Active Medications Allopurinol (Zyloprim) 100 mg PO BID ROBERT Carvedilol (Coreg) 25 mg PO BID ROBERT Dextrose (D50w (25gm) Syringe) 50 ml IV PRN PRN PRN Reason: Hypoglycemia Digoxin (Lanoxin) 0.125 mg PO DAILY@1700 ROBERT Ferrous Sulfate (Feosol) 325 mg PO BID ROBERT Gabapentin (Neurontin) 300 mg PO DAILY [facility] Potassium Chloride 10 meq/ (Sodium Chloride) 1,005 mls @ 75 mls/hr IV DIRECT ROBERT Magnesium Oxide (Mag-Ox) 400 mg PO QDAY ROBERT Morphine Sulfate (Morphine) 2 mg IV Q4H PRN PRN Reason: Pain, Moderate (4-6) Last Admin: 12/11/18 03:06 Dose: 2 mg Documented by: Ondansetron HCl (Zofran) 4 mg IV Q4H PRN PRN Reason: Nausea And Vomiting Pantoprazole Sodium (Protonix) 40 mg IV BID [facility] Sodium Chloride (Sodium Chloride Flush Syringe 10 Ml) 10 ml IV BID [facility] Sodium Chloride (Sodium Chloride Flush Syringe 10 Ml) 10 ml IV PRN PRN PRN Reason: LINE FLUSH Tizanidine HCl (Zanaflex) 4 mg PO BID ROBERT Torsemide (Demadex) 100 mg PO QDAY ROBERT Physical Examination Vital Signs Temp Pulse Resp BP Pulse Ox 98.5 F 77 21 131/84 98 12/10/18 23:39 12/10/18 23:39 12/10/18 23:39 12/10/18 23:39 12/10/18 23:39 General appearance: no acute distress HEENT: Positive: PERRL Neck: Positive: trachea midline Cardiac: Positive: Other (paced) Lungs: Positive: Decreased Breath Sounds Results 12/11/18 04:40 12/11/18 04:40 Cardiac Enzymes 12/11/18 12/11/18 Range/Units 00:14 04:40 AST 9 (5-40) units/L CK-MB (CK-2) 1.2 (0.0-4.0) ng/mL Coagulation 12/11/18 Range/Units 00:14 PT 15.7 H (12.2-14.9) Sec. INR 1.17 H (0.87-1.13) APTT 37.6 H (24.2-36.6) Sec. CBC 12/11/18 12/11/18 Range/Units 00:14 04:40 WBC 10.8 10.2 (4.5-11.0) K/mm3 RBC 4.19 4.23 (3.65-5.03) M/mm3 Hgb 10.6 L 10.4 L (11.8-15.2) gm/dl Hct 33.1 L 33.8 L (35.5-45.6) % Plt Count 307 295 (140-440) K/mm3 Lymph # 1.2 1.3 (1.2-5.4) K/mm3 [place] # 1.0 H 1.0 H (0.0-0.8) K/mm3 Eos # 0.3 0.3 (0.0-0.4) K/mm3 Baso # 0.1 0.1 (0.0-0.1) K/mm3 Comprehensive Metabolic Panel 12/11/18 12/11/18 Range/Units 00:14 04:40 Sodium 137 136 L (137-145) mmol/L Potassium 4.1 3.8 (3.6-5.0) mmol/L Chloride 96.5 L 96.6 L (98-107) mmol/L Carbon Dioxide 28 27 (22-30) mmol/L BUN 12 12 (9-20) mg/dL Creatinine 1.1 1.1 (0.8-1.5) mg/dL Glucose 117 H 114 H (75-100) mg/dL Calcium 9.1 9.0 (8.4-10.2) mg/dL AST 9 (5-40) units/L ALT 5 L (7-56) units/L Alkaline Phosphatase 61 (35-129) units/L Total Protein 6.6 (6.3-8.2) g/dL Albumin 3.3 L (3.9-5) g/dL Assessment and Plan Abdominal pain with vomiting suspected G-tube malfunction Esophageal carcinoma Recent diagnosis of PE not on oral anticoagulation due to prior GI bleed Paroxysmal Afib s/p TTT/cardioversion 11/2017 on digoxin and coreg as an outpatient for suppression. 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 Hx of VT/VF in the setting of hypokalemia Awaits GI evaluation. Otherwise, conservative cardiac management.
--- NOTE | 2018-12-11 11:05 | Consultation ---
History of Present Illness Consult date: 12/11/18 Reason for consult: abdominal pain Requesting physician: MURRAY JOHNSON Chief complaint: epigastric pain - History of present illness History of present illness: 47yo M is known to our service as we previously consult on him during his last admission for his gastroesophageal mass. We are asked to see him again due to concerns of possible feeding tube dislodgement. Since our last encounter, he was referred to surgical oncology at [facility]. Over there, he was assessed to be in need of a feeding tube for nutrition. He had displaced last . He reports that since he started using the feeding tube, every time he gives himself nutrition he has epigastric discomfort. It is also associated with nausea. It takes about 45 minutes to resolve. His overall abdominal pain is unchanged from his last admission prior to the feeding tube placement. Denies any fevers or chills. He also notes that he had some yellowish/brownish drainage on the dressing underneath the feeding tube collar. Past History Past Medical History: cancer, COPD, diabetes, heart failure, hypertension, other (Gout, [place], esophageal cancer) Past Surgical History: cholecystectomy, total hip replacement, Other (AICD) Social history: denies: smoking, alcohol abuse, prescription drug abuse, IV drug use Family history: CAD, diabetes Medications and Allergies Allergies Allergy/AdvReac Type Severity Reaction Status Date / Time cephalexin monohydrate AdvReac Hives Verified 05/17/18 21:55 [From Keflex] lidocaine AdvReac Hives Verified 05/17/18 21:55 mushrooms Allergy Anaphylaxis Uncoded 05/17/18 21:55 Home Medications Medication Instructions Recorded Confirmed Last Taken Type Magnesium Oxide 400 mg PO DAILY 08/31/16 12/10/18 11/18/18 08:00 History Carvedilol [Coreg] 25 mg PO BID #60 tablet 06/10/17 12/10/18 11/18/18 09:00 Rx Torsemide [Demadex] 100 mg PO QDAY #30 tablet 10/19/17 12/10/18 11/18/18 08:00 Rx Insulin Glargine,Hum.rec.anlog 20 unit SQ HS 09/29/18 12/10/18 11/18/18 09:00 History [Lantus] Allopurinol [Zyloprim] 100 mg PO BID tablet 11/20/18 12/10/18 Unknown Rx Aspirin [Aspirin TAB] 325 mg PO QDAY tablet 11/20/18 12/10/18 Unknown Rx Ferrous Sulfate [Feosol 325 MG tab] 325 mg PO BID tablet 11/20/18 12/10/18 Unknown Rx Lisinopril [Zestril TAB] 2.5 mg PO BID tablet 11/20/18 12/10/18 Unknown Rx Magnesium Oxide [Mag-Ox] 400 mg PO QDAY tablet 11/20/18 12/10/18 Unknown Rx Potassium Chloride [K-Dur] 20 meq PO BID tablet 11/20/18 12/10/18 Unknown Rx Potassium Chloride [K-Dur] 20 meq PO BID #30 tablet 11/20/18 12/10/18 Unknown Rx Digoxin [Lanoxin] 0.125 mg PO DAILY 12/10/18 12/10/18 Unknown History Gabapentin [Neurontin] 300 mg PO DAILY 12/10/18 12/10/18 Unknown History Omeprazole 20 mg PO DAILY 12/10/18 12/10/18 Unknown History glipiZIDE [Glipizide] 10 mg PO DAILY 12/10/18 12/10/18 Unknown History tiZANidine 4 mg PO BID 12/10/18 12/10/18 Unknown History Active Meds: Active Medications Allopurinol (Zyloprim) 100 mg PO BID ROBERT Carvedilol (Coreg) 25 mg PO BID [facility] Dextrose (D50w (25gm) Syringe) 50 ml IV PRN PRN PRN Reason: Hypoglycemia Digoxin (Lanoxin) 0.125 mg PO DAILY@1700 ROBERT Ferrous Sulfate (Feosol) 325 mg PO BID ROBERT Gabapentin (Neurontin) 300 mg PO DAILY [facility] Potassium Chloride 10 meq/ (Sodium Chloride) 1,005 mls @ 75 mls/hr IV DIRECT ROBERT Magnesium Oxide (Mag-Ox) 400 mg PO QDAY [facility] Morphine Sulfate (Morphine) 2 mg IV Q4H PRN PRN Reason: Pain, Moderate (4-6) Last Admin: 12/11/18 10:22 Dose: 2 mg Documented by: Ondansetron HCl (Zofran) 4 mg IV Q4H PRN PRN Reason: Nausea And Vomiting Pantoprazole Sodium (Protonix) 40 mg IV BID [facility] Sodium Chloride (Sodium Chloride Flush Syringe 10 Ml) 10 ml IV BID [facility] Sodium Chloride (Sodium Chloride Flush Syringe 10 Ml) 10 ml IV PRN PRN PRN Reason: LINE FLUSH Tizanidine HCl (Zanaflex) 4 mg PO BID [facility] Torsemide (Demadex) 100 mg PO QDAY [facility] Review of Systems - Constitutional chronic pain, no fever, no chills - Cardiovascular chest pain, no shortness of breath - Respiratory no cough - Gastrointestinal abdominal pain, nausea, no vomiting, no change in bowel habits, no dysp epsia/bloating - Genitourinary no dysuria - Integumentary no pruritis, no sores, no wounds Exam Vital Signs Temp Pulse Resp BP Pulse Ox 98.5 F 77 21 131/84 98 12/10/18 23:39 12/10/18 23:39 12/10/18 23:39 12/10/18 23:39 12/10/18 23:39 - General physical appearance Positive: no distress, no pain, obese, other (currently with CPAP mask) - Eyes Positive: normal occular movement. Negative: icteric - Respiratory Positive: normal expansion, normal respiratory effort - Abdomen Abdomen: Present: soft, tender (minimal. no pelvic shake tenderness), other (PEG in place - no active drainage). Absent: distended, guarding, rigid - Integumentary no rash, no growths, no abnormal pigmentation - Neurologic Neurologic: alert and oriented to time, place and person, motor strength and sensation are grossly intact - Psychiatric Psychiatric: appropriate mood/affect, intact judgment & insight Results - Labs 12/11/18 04:40 12/11/18 04:40 Abnormal lab results 12/11/18 12/11/18 12/11/18 Range/Units 00:14 00:14 00:14 Hgb 10.6 L (11.8-15.2) gm/dl Hct 33.1 L (35.5-45.6) % MCV 79 L (84-94) fl MCH 25 L (28-32) pg MCHC (32-34) % RDW 17.3 H (13.2-15.2) % Lymph % (Auto) 11.1 L (13.4-35.0) % [place] % (Auto) 9.5 H (0.0-7.3) % [place] # 1.0 H (0.0-0.8) K/mm3 Seg Neutrophils % 75.8 H (40.0-70.0) % Seg Neutrophils # 8.2 H (1.8-7.7) K/mm3 PT 15.7 H (12.2-14.9) Sec. INR 1.17 H (0.87-1.13) APTT 37.6 H (24.2-36.6) Sec. Sodium (137-145) mmol/L Chloride 96.5 L (98-107) mmol/L Glucose 117 H (75-100) mg/dL POC Glucose (70-105) ALT 5 L (7-56) units/L Total Creatine Kinase (55-170) units/L CK-MB (CK-2) Rel Index (0-4) Albumin 3.3 L (3.9-5) g/dL Digoxin (0.9-2.0) ng/mL 12/11/18 12/11/18 12/11/18 Range/Units 00:14 04:40 04:40 Hgb 10.4 L (11.8-15.2) gm/dl Hct 33.8 L (35.5-45.6) % MCV 80 L (84-94) fl MCH 25 L (28-32) pg MCHC 31 L (32-34) % RDW 17.8 H (13.2-15.2) % Lymph % (Auto) 13.2 L (13.4-35.0) % [place] % (Auto) 9.6 H (0.0-7.3) % [place] # 1.0 H (0.0-0.8) K/mm3 Seg Neutrophils % 73.3 H (40.0-70.0) % Seg Neutrophils # (1.8-7.7) K/mm3 PT (12.2-14.9) Sec. INR (0.87-1.13) APTT (24.2-36.6) Sec. Sodium 136 L (137-145) mmol/L Chloride 96.6 L (98-107) mmol/L Glucose 114 H (75-100) mg/dL POC Glucose (70-105) ALT (7-56) units/L Total Creatine Kinase (55-170) units/L CK-MB (CK-2) Rel Index (0-4) Albumin (3.9-5) g/dL Digoxin 0.3 L (0.9-2.0) ng/mL 12/11/18 12/11/18 Range/Units 04:40 05:46 Hgb (11.8-15.2) gm/dl Hct (35.5-45.6) % MCV (84-94) fl MCH (28-32) pg MCHC (32-34) % RDW (13.2-15.2) % Lymph % (Auto) (13.4-35.0) % [place] % (Auto) (0.0-7.3) % [place] # (0.0-0.8) K/mm3 Seg Neutrophils % (40.0-70.0) % Seg Neutrophils # (1.8-7.7) K/mm3 PT (12.2-14.9) Sec. INR (0.87-1.13) APTT (24.2-36.6) Sec. Sodium (137-145) mmol/L Chloride (98-107) mmol/L Glucose (75-100) mg/dL POC Glucose 118 H (70-105) ALT (7-56) units/L Total Creatine Kinase 24 L (55-170) units/L CK-MB (CK-2) Rel Index 5.0 H (0-4) Albumin (3.9-5) g/dL Digoxin (0.9-2.0) ng/mL Diabetes panel 12/11/18 12/11/18 Range/Units 00:14 04:40 Sodium 137 136 L (137-145) mmol/L Potassium 4.1 3.8 (3.6-5.0) mmol/L Chloride 96.5 L 96.6 L (98-107) mmol/L Carbon Dioxide 28 27 (22-30) mmol/L BUN 12 12 (9-20) mg/dL Creatinine 1.1 1.1 (0.8-1.5) mg/dL Glucose 117 H 114 H (75-100) mg/dL Calcium 9.1 9.0 (8.4-10.2) mg/dL AST 9 (5-40) units/L ALT 5 L (7-56) units/L Alkaline Phosphatase 61 (35-129) units/L Total Protein 6.6 (6.3-8.2) g/dL Albumin 3.3 L (3.9-5) g/dL Calcium panel 12/11/18 12/11/18 Range/Units 00:14 04:40 Calcium 9.1 9.0 (8.4-10.2) mg/dL Albumin 3.3 L (3.9-5) g/dL Pituitary panel 12/11/18 12/11/18 Range/Units 00:14 04:40 Sodium 137 136 L (137-145) mmol/L Potassium 4.1 3.8 (3.6-5.0) mmol/L Chloride 96.5 L 96.6 L (98-107) mmol/L Carbon Dioxide 28 27 (22-30) mmol/L BUN 12 12 (9-20) mg/dL Creatinine 1.1 1.1 (0.8-1.5) mg/dL Glucose 117 H 114 H (75-100) mg/dL Calcium 9.1 9.0 (8.4-10.2) mg/dL Adrenal panel 12/11/18 12/11/18 Range/Units 00:14 04:40 Sodium 137 136 L (137-145) mmol/L Potassium 4.1 3.8 (3.6-5.0) mmol/L Chloride 96.5 L 96.6 L (98-107) mmol/L Carbon Dioxide 28 27 (22-30) mmol/L BUN 12 12 (9-20) mg/dL Creatinine 1.1 1.1 (0.8-1.5) mg/dL Glucose 117 H 114 H (75-100) mg/dL Calcium 9.1 9.0 (8.4-10.2) mg/dL Total Bilirubin 0.50 (0.1-1.2) mg/dL AST 9 (5-40) units/L ALT 5 L (7-56) units/L Alkaline Phosphatase 61 (35-129) units/L Total Protein 6.6 (6.3-8.2) g/dL Albumin 3.3 L (3.9-5) g/dL - Imaging CT scan - abdomen: report reviewed, image reviewed CT scan - pelvis: report reviewed, image reviewed Assessment and Plan - Patient Problems (1) Gastrostomy tube dysfunction Current Visit: Yes Status: Acute Plan to address problem: Pt stable. The patient's exam and CT are not suggestive of clear feeding tube dislodgment. Actually, I think the CT demonstrates the bumper of the feeding tube to be in the stomach. As it has only been less than one week since the fee ding tube was placed, it is quite normal to see a small amount of pneumoperitoneum. His exam is not suggestive of a patient having an active leak from the gastrostomy site. I discussed the case with GI. We are in agreement to get a feeding tube study to confirm position within the stomach. Further recommendations will follow based on the results of that test. Will follow along. Please call with any questions. Time = 30min
--- NOTE | 2018-12-11 13:26 | Gastroenterology Consultation ---
Addendum entered and electronically signed by ALISA FREIRE MD 12/11/18 17:14: Patient seen and examined on 12/11/2018. 47 yo male with recent diagnosed esophageal adenocarcinoma with esophageal narrowing. Patient had recent admission last week at [facility] with roxi gnosis of PE placed on xarelto and had PEG tube placement for nutrition. Patient with one episode of hematemesis, which is likely due to his known ulcerated esophageal cancer and reports having leakage around the PEG tube site. CT abdomen without oral contrast showed pneumoperitoneum, which can be seen in the setting of recent PEG placement (on 12/05/2018). will do gastrograffin PEG study. Surgery on board as well and discussed with Dr. Anaya. Original Note: History of Present Illness - Reason for Consult Consult date: 12/11/18 UGIB, malpositioned G-tube Requesting physician: MURRAY JOHNSON - History of Present Illness Patient is a 47 y/o male who is previously known to our service and was just diagnosed with esophageal cancer s/p an EGD on 11/07/18 for c/o hematemesis and epigastric/chest pain. He was referred to a surgical oncologist at [facility] to whom he saw just last for a PEG placement (also followed by Dr. Gooden-oncologist; no chemo or radiation initiated as of yet) who presented to ED with c/o chest pain, abdominal pain, N/V, hematemesis, and discharge from G-tube site to which GI has been consulted. Upon admission, abd CT showed concerns for malposition of G-tube. This morning patient was resting in bed w/o acute distress. Reports 1 episode of vomiting up bright red blood yesterday with no further episodes or signs of bleeding today. No melena or hematochezia. States CP/abd pain is unchanged from prior hospitalization. Vomiting now improved. Nausea associated with TFs. Denies fever, SOB, or LGI symptoms. Upon exam, PEG site w/o redness, swelling, odor, or bleeding, however peristomal leakage noted with yellowish/brown drainage (non-purulent) likely 2/2 lack of time to mature from recent placement. PMH significant for nonischemic cardiomyopathy (EF 10-15%), PE, [place], VT/VF (s/p AICD), paroxysmal Afib (s/p cardioversion), severe pulmonary hypertension, HTN, DM, sleep apnea, chronic obstructive pulmonary disease, obesity, and recent PE (on Xarelto at home). Past History Past Medical History: other (as per HPI) Past Surgical History: cholecystectomy, Other (cardioversion 11/2017, s/p AICD, EGD 09/2018 with esophageal banding; EGD 11/07/18, s/p PEG, hip surgery?) Social history: other (former smoker) Medications and Allergies Allergies Allergy/AdvReac Type Severity Reaction Status Date / Time cephalexin monohydrate AdvReac Hives Verified 05/17/18 21:55 [From Keflex] lidocaine AdvReac Hives Verified 05/17/18 21:55 mushrooms Allergy Anaphylaxis Uncoded 05/17/18 21:55 Home Medications Medication Instructions Recorded Confirmed Last Taken Type Magnesium Oxide 400 mg PO DAILY 08/31/16 12/10/18 11/18/18 08:00 History Carvedilol [Coreg] 25 mg PO BID #60 tablet 06/10/17 12/10/18 11/18/18 09:00 Rx Torsemide [Demadex] 100 mg PO QDAY #30 tablet 10/19/17 12/10/18 11/18/18 08:00 Rx Insulin Glargine,Hum.rec.anlog 20 unit SQ HS 09/29/18 12/10/18 11/18/18 09:00 History [Lantus] Allopurinol [Zyloprim] 100 mg PO BID tablet 11/20/18 12/10/18 Unknown Rx Aspirin [Aspirin TAB] 325 mg PO QDAY tablet 11/20/18 12/10/18 Unknown Rx Ferrous Sulfate [Feosol 325 MG tab] 325 mg PO BID tablet 11/20/18 12/10/18 Unknown Rx Lisinopril [Zestril TAB] 2.5 mg PO BID tablet 11/20/18 12/10/18 Unknown Rx Magnesium Oxide [Mag-Ox] 400 mg PO QDAY tablet 11/20/18 12/10/18 Unknown Rx Potassium Chloride [K-Dur] 20 meq PO BID tablet 11/20/18 12/10/18 Unknown Rx Potassium Chloride [K-Dur] 20 meq PO BID #30 tablet 11/20/18 12/10/18 Unknown Rx Digoxin [Lanoxin] 0.125 mg PO DAILY 12/10/18 12/10/18 Unknown History Gabapentin [Neurontin] 300 mg PO DAILY 12/10/18 12/10/18 Unknown History Omeprazole 20 mg PO DAILY 12/10/18 12/10/18 Unknown History glipiZIDE [Glipizide] 10 mg PO DAILY 12/10/18 12/10/18 Unknown History tiZANidine 4 mg PO BID 12/10/18 12/10/18 Unknown History Active Meds: Active Medications Allopurinol (Zyloprim) 100 mg PO BID ROBERT Carvedilol (Coreg) 25 mg PO BID [facility] Dextrose (D50w (25gm) Syringe) 50 ml IV PRN PRN PRN Reason: Hypoglycemia Digoxin (Lanoxin) 0.125 mg PO DAILY@1700 ROBERT Ferrous Sulfate (Feosol) 325 mg PO BID [facility] Gabapentin (Neurontin) 300 mg PO DAILY [facility] Potassium Chloride 10 meq/ (Sodium Chloride) 1,005 mls @ 75 mls/hr IV DIRECT [facility] Magnesium Oxide (Mag-Ox) 400 mg PO QDAY [facility] Morphine Sulfate (Morphine) 2 mg IV Q4H PRN PRN Reason: Pain, Moderate (4-6) Last Admin: 12/11/18 10:22 Dose: 2 mg Documented by: Ondansetron HCl (Zofran) 4 mg IV Q4H PRN PRN Reason: Nausea And Vomiting Pantoprazole Sodium (Protonix) 40 mg IV BID [facility] Sodium Chloride (Sodium Chloride Flush Syringe 10 Ml) 10 ml IV BID [facility] Sodium Chloride (Sodium Chloride Flush Syringe 10 Ml) 10 ml IV PRN PRN PRN Reason: LINE FLUSH Tizanidine HCl (Zanaflex) 4 mg PO BID [facility] Torsemide (Demadex) 100 mg PO QDAY [facility] medications reviewed/updated as required Review of Systems - Review of Systems All systems: negative Cardiovascular: chest pain Gastrointestinal: abdominal pain, nausea, vomiting, hematemesis, other (drainage from PEG site) Exam - Constitutional Vital Signs: Temp Pulse Resp BP Pulse Ox 98.3 F 70 20 133/87 97 12/11/18 09:55 12/11/18 09:53 12/11/18 09:53 12/11/18 09:53 12/11/18 09:53 General appearance: no acute distress - Respiratory Respiratory: bilateral: diminished - Cardiovascular Rhythm: regular Heart Sounds: Present: S1 & S2 - Gastrointestinal General gastrointestinal: Present: soft, tender (slight TTP), non-distended, normal bowel sounds, other (+PEG) - Neurologic Neurological: alert and oriented x3 - Labs CBC & Chem 7: 12/11/18 04:40 12/11/18 04:40 Lab Results: Laboratory Results - last 24 hr 12/11/18 12/11/18 12/11/18 00:14 00:14 00:14 WBC 10.8 RBC 4.19 Hgb 10.6 L Hct 33.1 L MCV 79 L MCH 25 L MCHC 32 RDW 17.3 H Plt Count 307 Lymph % (Auto) 11.1 L Gladwin % (Auto) 9.5 H Eos % (Auto) 2.7 Baso % (Auto) 0.9 Lymph # 1.2 Gladwin # 1.0 H Eos # 0.3 Baso # 0.1 Seg Neutrophils % 75.8 H Seg Neutrophils # 8.2 H PT 15.7 H INR 1.17 H APTT 37.6 H Sodium 137 Potassium 4.1 Chloride 96.5 L Carbon Dioxide 28 Anion Gap 17 BUN 12 Creatinine 1.1 Estimated GFR > 60 BUN/Creatinine Ratio 11 Glucose 117 H POC Glucose Calcium 9.1 Magnesium 1.90 Total Bilirubin 0.50 AST 9 ALT 5 L Alkaline Phosphatase 61 Total Creatine Kinase CK-MB (CK-2) CK-MB (CK-2) Rel Index Troponin T < 0.010 Total Protein 6.6 Albumin 3.3 L Albumin/Globulin Ratio 1.0 Digoxin Blood Type Antibody Screen 12/11/18 12/11/18 12/11/18 00:14 00:19 04:40 WBC 10.2 RBC 4.23 Hgb 10.4 L Hct 33.8 L MCV 80 L MCH 25 L MCHC 31 L RDW 17.8 H Plt Count 295 Lymph % (Auto) 13.2 L Gladwin % (Auto) 9.6 H Eos % (Auto) 3.3 Baso % (Auto) 0.6 Lymph # 1.3 Gladwin # 1.0 H Eos # 0.3 Baso # 0.1 Seg Neutrophils % 73.3 H Seg Neutrophils # 7.5 PT INR APTT Sodium Potassium Chloride Carbon Dioxide Anion Gap BUN Creatinine Estimated GFR BUN/Creatinine Ratio Glucose POC Glucose Calcium Magnesium Total Bilirubin AST ALT Alkaline Phosphatase Total Creatine Kinase CK-MB (CK-2) CK-MB (CK-2) Rel Index Troponin T Total Protein Albumin Albumin/Globulin Ratio Digoxin 0.3 L Blood Type O POSITIVE Antibody Screen Negative 12/11/18 12/11/18 12/11/18 04:40 04:40 05:46 WBC RBC Hgb Hct MCV MCH MCHC RDW Plt Count Lymph % (Auto) Gladwin % (Auto) Eos % (Auto) Baso % (Auto) Lymph # Gladwin # Eos # Baso # Seg Neutrophils % Seg Neutrophils # PT INR APTT Sodium 136 L Potassium 3.8 Chloride 96.6 L Carbon Dioxide 27 Anion Gap 16 BUN 12 Creatinine 1.1 Estimated GFR > 60 BUN/Creatinine Ratio 11 Glucose 114 H POC Glucose 118 H Calcium 9.0 Magnesium Total Bilirubin AST ALT Alkaline Phosphatase Total Creatine Kinase 24 L CK-MB (CK-2) 1.2 CK-MB (CK-2) Rel Index 5.0 H Troponin T < 0.010 Total Protein Albumin Albumin/Globulin Ratio Digoxin Blood Type Antibody Screen 12/11/18 12/11/18 11:27 12:27 WBC RBC Hgb Hct MCV MCH MCHC RDW Plt Count Lymph % (Auto) Gladwin % (Auto) Eos % (Auto) Baso % (Auto) Lymph # Gladwin # Eos # Baso # Seg Neutrophils % Seg Neutrophils # PT INR APTT Sodium Potassium Chloride Carbon Dioxide Anion Gap BUN Creatinine Estimated GFR BUN/Creatinine Ratio Glucose POC Glucose 106 H Calcium Magnesium Total Bilirubin AST ALT Alkaline Phosphatase Total Creatine Kinase 18 L CK-MB (CK-2) 1.0 CK-MB (CK-2) Rel Index 5.5 H Troponin T < 0.010 Total Protein Albumin Albumin/Globulin Ratio Digoxin Blood Type Antibody Screen Assessment and Plan 1.hematemesis 2.esophageal cancer -H/H 10.4/33.8-stable compared to previous -continue to monitor and transfuse as needed -patient reports 1 episode of vomiting up bright red blood yesterday- no melena or hematochezia -EGD 10/11/18 revealed 2-3 columns of large distal esophageal varices (2/2 portal htn; no hx of liver disease-LFTs WNL and liver normal on CT) with o verlying blood clots and ulceration with active bleeding (banded x 3)- underlying mass lesion unable to be excluded to due inadequate visualization -repeat EGD 11/07/18 revealed an ulcerated friable circumferential mass from 37 cm to 43 cm at the GE junction surrounding about 75% of the circumference. No obvious signs of esophageal varices -path results confirmed poorly differentiated carcinoma- currently being following by surgical oncologist at [facility] and Dr. Gooden-oncologist (no chemo or radiation initiated as of yet) -etiology-most likely 2/2 esophageal cancer -clinically, patient is stable with no active signs of bleeding today. Continued CP and abd pain are unchanged from prior hospitalization. N/v now improving. -no plan to scope at this time -okay to resume anticoagulation (xarelto) if needed -continue PPI and supportive care 3.malpositioned G-tube? -s/p PEG placement less than a week ago at [place] with patient c/o drainage at PEG site -CT on admission showed concern for malposition of G-tube, however after review bumper of feeding tube seems to be in stomach (pneumoperitoneum is common/normal s/p PEG placement) -Upon exam, PEG site is w/o s/s of infection or bleeding. Peristomal drainage of yellowish/brown color is noted (non-purulent) which is likely 2/2 recent placement with lack of time to mature -will order a G-tube study for further evaluation to confirm placement -split gauze dressing PRN -daily PEG care -if G-tube study is normal, okay to resume feedings per nutrition recommendations and patient is okay to be d/c with f/u at [place]
--- NOTE | 2018-12-11 14:55 | Event Note ---
Date: 12/11/18 Pt admitted today for hematemesis and PEG tube malfunction. His H&H are stable and GI is not planning on any invasive investigation. His peg tube will be evaluated and he will be discharged afterwards
--- NOTE | 2018-12-11 16:34 | XRay Report ---
X-RAY G-TUBE STUDY: 12/11/18 CLINICAL: Assess position of the G-tube. Abnormal CT. COMPARISON: CT abdomen without contrast on the same day. FINDINGS: A small volume of Gastroview was injected through the G-tube. Contrast is identified in the stomach and throughout the duodenum. No extravasation contrast. Mild pneumoperitoneum is identified at the diaphragm on the right side. IMPRESSION: The G-tube is apparently in satisfactory position for feeding with no extravasation of contrast on this exam. Recommend a followup CT after feedings have been initiated through the G-tube.
[2018-12-11] MEDS: LANOXIN PO SCH (17:00)
[2018-12-11] MEDS: DILAUDID IV PRN ×2 (17:04→21:23)
[2018-12-11] MEDS: KCL 10 MEQ in NACL 0.9% 1000 ML 1,000 ML IV SCH (21:24)
--- NOTE | 2018-12-11 22:03 | Event Note ---
Date: 12/11/18 G-tube study is negative. PEG is in correct position without any extravasation. Rec: 1) start clears 2) may use PEG tube 3) no intervention needed Please call with questions.
[2018-12-12] MEDS: DILAUDID IV PRN ×2 (01:45→09:15)
[2018-12-12 05:57] LABS: BUN/Creatinine Ratio 8; Blood Urea Nitrogen 8 mg/dL (9-20); Hemolysis Index 1
--- NOTE | 2018-12-12 09:38 | Progress Note ---
Addendum entered and electronically signed by SHO ORTEZ MD 12/12/18 13:17: Medical therapy for nonischemic cardiomyopathy and chronic systolic heart failure. Original Note: Assessment and Plan Abdominal pain with vomiting suspected G-tube malfunction Esophageal carcinoma Recent diagnosis of PE at [facility] and started on xarelto. He denies bleeding on xarelto Xarelto on hold for the time being Paroxysmal Afib s/p cardioversion 11/2017 on digoxin and coreg as an outpatient for suppression. Dilated nonischemic cardiomyopathy, EF 10-15% Cath 12/2017 - mild non-obstructive coronary artery disease Chronic obstructive pulmonary disease Severe Pulmonary Hypertension Essential hypertension Type 2 diabetes mellitus Obstructive sleep apnea Presence of [employer]-ICD ([employer]) normal functioning device on recent interrogation. Hx of VT/VF in the setting of hypokalemia Conservative cardiac management. Subjective Date of service: 12/12/18 Interval history: Patient has no cardiac complaints. Objective Vital Signs Temp Pulse Resp Resp BP Pulse Ox 12/12/18 08:29 49 L 20 139/87 99 12/12/18 08:27 98.4 F 12/12/18 04:04 98.4 F 68 12 128/76 99 12/12/18 03:00 60 12/11/18 23:12 98.4 F 68 18 137/71 97 12/11/18 22:00 20 12/11/18 21:44 52 L 141/78 12/11/18 21:23 20 12/11/18 20:32 98.3 F 42 L 16 141/78 97 12/11/18 19:00 74 12/11/18 17:05 98.3 F 12/11/18 17:03 76 18 136/79 98 12/11/18 09:55 98.3 F 12/11/18 09:53 70 20 133/87 97 - Physical Examination General: No Apparent Distress HEENT: Positive: PERRL Neck: Positive: trachea midline Cardiac: Positive: Other (AV paced) Lungs: Positive: Decreased Breath Sounds Neuro: Positive: Grossly Intact Extremities: Absent: edema - Labs and Meds Cardiac Enzymes 12/11/18 Range/Units 11:27 CK-MB (CK-2) 1.0 (0.0-4.0) ng/mL Comprehensive Metabolic Panel 12/12/18 Range/Units 05:06 Sodium 135 L (137-145) mmol/L Potassium 4.2 (3.6-5.0) mmol/L Chloride 98.0 (98-107) mmol/L Carbon Dioxide 26 (22-30) mmol/L BUN 8 L (9-20) mg/dL Creatinine 1.0 (0.8-1.5) mg/dL Glucose 92 (75-100) mg/dL Calcium 9.0 (8.4-10.2) mg/dL
[2018-12-12] MEDS: NEURONTIN PO SCH (10:04)
[2018-12-12] MEDS: MAG-OX PO SCH (10:04)
[2018-12-12] MEDS: COREG PO SCH (10:05)
[2018-12-12] MEDS: ZYLOPRIM PO SCH (10:05)
[2018-12-12] MEDS: ZANAFLEX PO SCH (10:05)
[2018-12-12] MEDS: SODIUM CHLORIDE FLUSH SYRINGE 10 ML IV SCH (10:05)
[2018-12-12] MEDS: PROTONIX IV SCH (10:05)
[2018-12-12] MEDS: FEOSOL PO SCH (10:05)
[2018-12-12] MEDS: DEMADEX PO SCH (10:07)
--- NOTE | 2018-12-12 10:26 | Gastroenterology Progress Note ---
Addendum entered and electronically signed by ALISA FREIRE MD 12/12/18 16:20: Patient seen and examined on 12/12/2018. G-tube study showed normal findings with G-tube in correct position. Resume tube feeds. nutrition consult in place Will sign off. Original Note: Assessment and Plan 1.hematemesis 2.esophageal cancer -H/H 10.4/33.8-stable compared to previous -continue to monitor and transfuse as needed -no active signs of bleeding overnight or this am -EGD 10/11/18 revealed 2-3 columns of large distal esophageal varices (2/2 portal htn; no hx of liver disease-LFTs WNL and liver normal on CT) with overlying blood clots and ulceration with active bleeding (banded x 3)- underlying mass lesion unable to be excluded to due inadequate visualization -repeat EGD 11/07/18 revealed an ulcerated friable circumferential mass from 37 cm to 43 cm at the GE junction surrounding about 75% of the circumference. No obvious signs of esophageal varices -path results confirmed poorly differentiated carcinoma- currently being following by surgical oncologist at [facility] and Dr. Gooden-oncologist (no chemo or radiation initiated as of yet) -etiology-most likely 2/2 esophageal cancer -no plan to scope at this time -okay to resume anticoagulation (xarelto) if needed -continue PPI and supportive care 3.malpositioned G-tube? -s/p PEG placement less than a week ago at [place] with patient c/o drainage at PEG site -CT on admission showed concern for malposition of G-tube, however after review bumper of feeding tube seems to be in stomach (pneumoperitoneum is common/normal s/p PEG placement) -patient reports localized pain at G-tube site (likely 2/2 recent placment) -PEG site w/o s/s of infection or bleeding- Peristomal drainage of yellowish/brown color is noted (non-purulent) which is likely 2/2 recent p lacement with lack of time to mature (can take up to 4 weeks) -G-tube study yesterday negative -okay to resume TFs per dietary recommendations- will place nutrition consult -split gauze dressing PRN -daily PEG care -no further recommendations per GI standpoint, patient okay to be d/c with f/u at [place] -will sign off, please call if needed Subjective Date of service: 12/12/18 Principal diagnosis: UGIB, malpositioned G-tube Interval history: No acute distress or active signs of bleeding overnight or this am . Reports continued localized pain around G-tube. Objective - Constitutional Vitals: Temp Pulse Resp BP Pulse Ox 98.4 F 49 L 20 139/87 99 12/12/18 08:27 12/12/18 08:29 12/12/18 08:29 12/12/18 08:29 12/12/18 08:29 General appearance: no acute distress - Respiratory Respiratory: bilateral: diminished - Cardiovascular Rhythm: regular Heart Sounds: Present: S1 & S2 - Gastrointestinal General gastrointestinal: Present: soft, tender (slight TTP), non-distended, normal bowel sounds - Labs CBC & Chem 7: 12/11/18 04:40 12/12/18 05:06 Labs: Laboratory Results - last 24 hr 12/11/18 12/11/18 12/11/18 11:27 12:27 16:20 Sodium Potassium Chloride Carbon Dioxide Anion Gap BUN Creatinine Estimated GFR BUN/Creatinine Ratio Glucose POC Glucose 106 H 105 Calcium Total Creatine Kinase 18 L CK-MB (CK-2) 1.0 CK-MB (CK-2) Rel Index 5.5 H Troponin T < 0.010 12/11/18 12/12/18 12/12/18 21:06 05:06 05:40 Sodium 135 L Potassium 4.2 Chloride 98.0 Carbon Dioxide 26 Anion Gap 15 BUN 8 L Creatinine 1.0 Estimated GFR > 60 BUN/Creatinine Ratio 8 Glucose 92 POC Glucose 79 82 Calcium 9.0 Total Creatine Kinase CK-MB (CK-2) CK-MB (CK-2) Rel Index Troponin T
[2018-12-12] MEDS ORDERED: SIMPLE SYRUP FEEDTUBE PRN ×4 (11:06→14:53)
[2018-12-12] MEDS ORDERED: PANCREAZE DR 10,500 UNIT FEEDTUBE PRN ×2 (11:06→14:53)
[2018-12-12] MEDS ORDERED: SODIUM BICARBONATE FEEDTUBE PRN ×2 (11:06→14:53)
[2018-12-12] MEDS: KCL 10 MEQ in NACL 0.9% 1000 ML 1,000 ML IV SCH (11:08)
[2018-12-12] MEDS ORDERED: DILAUDID IV ONE (11:26)
--- NOTE | 2018-12-12 11:26 | Progress Note ---
Assessment and Plan - Patient Problems (1) Gastrostomy tube dysfunction Current Visit: Yes Status: Acute Plan to address problem: Pt stable. G-tube study was normal. ok to use G-tube. There is no concern of malposition of the G-tube. I believe his pain is related to his esophageal tumor. Would suggest that he see pain management to assist with pain control. The basic pain meds will probably not be enough for him. Please call with any questions. Time = 10min Subjective Date of service: 12/12/18 Patient Reports: Positive: still having pain (severe pain in the epigastric area. Same as before. No association with eating or tube feeds. ) Objective Vital Signs - 12hr 12/12/18 12/12/18 12/12/18 03:00 04:04 07:30 Temperature 98.4 F Pulse Rate 60 68 70 Respiratory 12 Rate Blood Pressure 128/76 O2 Sat by Pulse 99 Oximetry 12/12/18 12/12/18 08:27 08:29 Temperature 98.4 F Pulse Rate 49 L Respiratory 20 Rate Blood Pressure 139/87 O2 Sat by Pulse 99 Oximetry - General physical appearance severe pain - Eyes normal occular movement - Respiratory normal expansion, normal respiratory effort - Abdomen soft - Integumentary no rash, no growths, no abnormal pigmentation - Psychiatric oriented to time, oriented to person, oriented to place, speech is normal, memory intact - Labs 12/11/18 04:40 12/12/18 05:06 Diabetes panel 12/12/18 Range/Units 05:06 Sodium 135 L (137-145) mmol/L Potassium 4.2 (3.6-5.0) mmol/L Chloride 98.0 (98-107) mmol/L Carbon Dioxide 26 (22-30) mmol/L BUN 8 L (9-20) mg/dL Creatinine 1.0 (0.8-1.5) mg/dL Glucose 92 (75-100) mg/dL Calcium 9.0 (8.4-10.2) mg/dL Calcium panel 12/12/18 Range/Units 05:06 Calcium 9.0 (8.4-10.2) mg/dL Pituitary panel 12/12/18 Range/Units 05:06 Sodium 135 L (137-145) mmol/L Potassium 4.2 (3.6-5.0) mmol/L Chloride 98.0 (98-107) mmol/L Carbon Dioxide 26 (22-30) mmol/L BUN 8 L (9-20) mg/dL Creatinine 1.0 (0.8-1.5) mg/dL Glucose 92 (75-100) mg/dL Calcium 9.0 (8.4-10.2) mg/dL Adrenal panel 12/12/18 Range/Units 05:06 Sodium 135 L (137-145) mmol/L Potassium 4.2 (3.6-5.0) mmol/L Chloride 98.0 (98-107) mmol/L Carbon Dioxide 26 (22-30) mmol/L BUN 8 L (9-20) mg/dL Creatinine 1.0 (0.8-1.5) mg/dL Glucose 92 (75-100) mg/dL Calcium 9.0 (8.4-10.2) mg/dL
[2018-12-12 17:02] VITALS: BP 105/69
[2018-12-12] MEDS: LANOXIN PO SCH (17:04)
[2018-12-12] MEDS ORDERED: PREVACID SOLUTAB FEEDTUBE SCH (22:00)
--- NOTE | 2018-12-13 15:59 | Discharge Summary ---
Providers - Providers Date of Admission: 12/11/18 01:43 Date of discharge: 12/12/18 Attending physician: AKASH THAYER 12/11/18 00:50 Consult to Physician [CONS] Urgent Comment: Consulting Provider: JUDAH TOWNSEND Physician Instructions: Reason For Exam: displaced g tube 12/11/18 01:05 Consult to Physician [CONS] Urgent Comment: Consulting Provider: GIGI DE LOS SANTOS Physician Instructions: Reason For Exam: ugib bleed malpositioned g tube 12/11/18 04:18 Consult to Physician [CONS] Routine Comment: Consulting Provider: SHO ORTEZ Physician Instructions: Reason For Exam: cp 12/12/18 10:26 Consult to Dietitian/Nutrition [CONS] Routine Physician Instructions: Reason For Exam: Reason for Consult: Write/Manage Tube Feeding Primary care physician: DANIELLE MONTERROSO Hospitalization Reason for admission: Hematemesis, pneumoperitoneum due to suspected PEG tube displacement Condition: Good Pertinent studies: CT abdomen/pelvis Hospital course: FINAL DISCHARGE DIAGNOSIS: Hematemesis, stable Pneumoperitoneum due to suspected PEG tube displacement, stable Chest pain probably secondary to esophageal cancer, ACS ruled out Esophageal cancer with varices COPD Hypertension Diabetes Depression Obstructive sleep apnea Obesity with BMI of 37.7 History of pulmonary emboli Obstructive sleep apnea on CPAP at night HOSPITAL COURSE: Patient's H/H were monitored on admission and they remained stable. He was evaluated by GI and no further intervention was recommended. For the chest pain, serial troponin levels were done, which were negative. Thereafter, his tube feeding was resumed which he tolerated. Subsequently, he was deemed stable for discharge with clinic follow-up after clearance by GI. Disposition: - TO HOME OR SELFCARE Time spent for discharge: 30 minutes Core Measure Documentation - Palliative Care Palliative Care/ Comfort Measures: Not Applicable - Core Measures Any of the following diagnoses?: none Exam - Constitutional Vitals: Temp Pulse Resp BP Pulse Ox 97.7 F 71 18 105/69 98 12/12/18 17:00 12/12/18 17:01 12/12/18 17:01 12/12/18 17:01 12/12/18 17:01 General appearance: Present: no acute distress, well-nourished - EENT Eyes: Present: PERRL, EOM intact ENT: hearing intact, clear oral mucosa - Neck Neck: Present: supple, normal ROM - Respiratory Respiratory effort: normal Respiratory: bilateral: CTA - Cardiovascular Rhythm: regular Heart Sounds: Present: S1 & S2. Absent: rub, click - Extremities Extremities: No edema - Abdominal General gastrointestinal: Present: soft, non-tender, non-distended, normal bowel sounds, other (PEG tube noted) - Integumentary Integumentary: Present: clear, warm, dry - Musculoskeletal Musculoskeletal: gait normal, strength equal bilaterally - Psychiatric Psychiatric: appropriate mood/affect, intact judgment & insight - Neurologic Neurologic: CNII-XII intact, moves all extremities Plan Follow up with: DANIELLE MONTERROSO MD [Primary Care Provider] - 3-5 Days Forms: Discharge Signature Page
== END 2018-12-12 18:46 | disposition home or self-care (01) | DRG 394 ==
LOC: ED 23:14 → 4A 12-11 01:43
PROVIDERS: ADMIT Internal Medicine; ATTEND Internal Medicine
DX: K94.23 Gastrostomy malfunction (principal); C15.9 Malignant neoplasm of esophagus, unspecified; I48.92 Unspecified atrial flutter; I42.0 Dilated cardiomyopathy; I85.00 Esophageal varices without bleeding; K76.6 Portal hypertension; K92.0 Hematemesis; Y83.8 Other surgical procedures as the cause of abnormal reaction of the patient, or of later complication, without mention of misadventure at the time of the procedure; E66.01 Morbid (severe) obesity due to excess calories; G47.33 Obstructive sleep apnea (adult) (pediatric); I11.0 Hypertensive heart disease with heart failure; K66.8 Other specified disorders of peritoneum; I48.0 Paroxysmal atrial fibrillation; I27.20 Pulmonary hypertension, unspecified; I50.9 Heart failure, unspecified; J44.9 Chronic obstructive pulmonary disease, unspecified; M19.90 Unspecified osteoarthritis, unspecified site; I48.91 Unspecified atrial fibrillation; J45.909 Unspecified asthma, uncomplicated; M10.9 Gout, unspecified; Z96.649 Presence of unspecified artificial hip joint; Z82.49 Family history of ischemic heart disease and other diseases of the circulatory system; Z86.718 Personal history of other venous thrombosis and embolism; Z95.810 Presence of automatic (implantable) cardiac defibrillator; Z86.711 Personal history of pulmonary embolism; Z88.8 Allergy status to other drugs, medicaments and biological substances; Z83.3 Family history of diabetes mellitus; Z79.899 Other long term (current) drug therapy; Z79.82 Long term (current) use of aspirin; Z90.49 Acquired absence of other specified parts of digestive tract
CPT/HCPCS: 36415; 71045; 74018; 74176; 80048; 80053; 80162; 82550; 82553; 82962; 83735; 84484; 85025; 85610; 85730; 86850; 86900; 86901; 87116; 93005; 93010; G0378; C9113; J1170; J1956; J2270; J2405; J3480; J7030; Q9967

== ENCOUNTER 2018-12-24 08:21 | Day surgery (SDC) | payer MEDICAID ==
[~2018-12-24 08:21] MED LIST: ANCEF/STERILE WATER 2 GM/20 ML 2 GM/20 ML SYRINGE IV NR; LACTATED RINGERS 1,000 ML IV SCH; NEURONTIN PO SCH
--- NOTE | 2018-12-24 09:11 | Anesthesia Day of Surgery ---
Anesthesia Day of Surgery - Day of Surgery Patient Examined: Yes Patient H&P Reviewed: Yes Patient is NPO: Yes Beta Blockers: Yes
[2018-12-24] MEDS ORDERED: ZOFRAN IV PRN (09:14)
[2018-12-24] MEDS ORDERED: SUBLIMAZE IV PRN (09:14)
--- NOTE | 2018-12-24 09:14 | Anesthesia Consultation ---
Anesthesia Consult and Med Hx Date of service: 12/24/18 - Airway Anesthetic Teeth Evaluation: Good ROM Head & Neck: Adequate Mental/Hyoid Distance: Adequate Mallampati Class: Class II Intubation Access Assessment: Good - Pre-Operative Health Status ASA Pre-Surgery Classification: ASA3 Proposed Anesthetic Plan: General, MAC - Pulmonary Hx Smoking: Yes (SINCE AGE 9; QUIT LAST YEAR, ) Hx Asthma: Yes SOB: Yes COPD: Yes (uses CPAP) Hx Sleep Apnea: Yes - Cardiovascular System Hx Hypertension: Yes (SINCE A CHILD) Hx Coronary Artery Disease: Yes (EF 10%; can slowly climb stairs) Hx Angina: Yes Hx Cardia Arrhythmia: Yes (h/o AFIB in NSR with sotolol, h/o VF) Hx Pacemaker: Yes (PVCs; checked a few months ago and good battery life per pt) Hx Internal Defibrillator: Yes (AICD; Last shock 1.5y ago) - Central Nervous System Hx Neuromuscular Disorder: (Gout) Hx Psychiatric Problems: No - Gastrointestinal Hx Ulcer: Yes (Esoph cancer) - Endocrine Hx Insulin Dependent Diabetes: Yes - Hematic Hx Anemia: Yes - Other Systems Hx Cancer: Yes
[2018-12-24] MEDS ORDERED: DILAUDID IV PRN (09:16)
[2018-12-24] MEDS ORDERED: DILAUDID IV SCH (09:28)
[2018-12-24] MEDS ORDERED: MARCAINE-EPI 0.5%-1:200,000 INFILTRATI ONE (09:47)
[2018-12-24] MEDS ORDERED: XYLOCAINE 1% 20 mL ONE ×2 (09:47→10:46)
--- NOTE | 2018-12-24 09:47 | Short Stay Summary ---
Short Stay Documentation Date of service: 12/24/18 - History H&P: obtained from office - Allergies and Medications Current Medications: Allergies cephalexin monohydrate [From Keflex] Adverse Reaction (Verified 12/23/18 14:22) Shakes lidocaine Adverse Reaction (Verified 12/23/18 14:22) "Skin Yellowing" mushrooms Allergy (Uncoded 12/23/18 14:22) Anaphylaxis Home Medications Medication Instructions Recorded Confirmed Last Taken Type Magnesium Oxide 400 mg PO DAILY 08/31/16 12/20/18 11/18/18 08:00 History Carvedilol [Coreg] 25 mg PO BID #60 tablet 06/10/17 12/20/18 11/18/18 09:00 Rx Torsemide [Demadex] 100 mg PO QDAY #30 tablet 10/19/17 12/20/18 11/18/18 08:00 Rx Insulin Glargine,Hum.rec.anlog 20 unit SQ HS 09/29/18 12/20/18 11/18/18 09:00 History [Lantus] Allopurinol [Zyloprim] 100 mg PO BID tablet 11/20/18 12/20/18 Unknown Rx Ferrous Sulfate [Feosol 325 MG tab] 325 mg PO BID tablet 11/20/18 12/20/18 Unknown Rx Lisinopril [Zestril TAB] 2.5 mg PO BID tablet 11/20/18 12/20/18 Unknown Rx Digoxin [Lanoxin] 0.125 mg PO DAILY 12/10/18 12/20/18 Unknown History Gabapentin [Neurontin] 300 mg PO DAILY 12/10/18 12/20/18 Unknown History Omeprazole 20 mg PO DAILY 12/10/18 12/20/18 Unknown History glipiZIDE [Glipizide] 10 mg PO DAILY 12/10/18 12/20/18 Unknown History Aspirin [Aspirin BABY CHEW TAB] 81 mg PO QDAY 12/20/18 12/20/18 Unknown History Potassium Chloride [Klor-Con M20] 20 meq PO BID 12/20/18 12/20/18 Unknown History Tizanidine HCl [Zanaflex] 4 mg PO BID 12/23/18 12/23/18 Unknown History Active Medications Fentanyl (Sublimaze) 50 mcg IV Q5MIN PRN PRN Reason: Pain , Severe (7-10) Stop: 12/24/18 16:00 Gabapentin (Neurontin) 600 mg PO PREOP ROBERT Last Admin: 12/24/18 09:30 Dose: 600 mg Documented by: Hydromorphone HCl (Dilaudid) 1 mg IV ONCE ROBERT Stop: 12/24/18 11:00 Cefazolin Sodium (Ancef/Sterile Water 2 Gm/20 Ml) 2 gm in 20 mls @ 80 mls/hr IV PREOP NR; Protocol Stop: 12/24/18 23:59 Lactated Ringer's (Lactated Ringers) 1,000 mls @ 125 mls/hr IV DIRECT ROBERT Vancomycin HCl (Vancomycin/Ns 1 Gm/250 Ml) 1 gm in 250 mls @ 166.667 mls/hr IV PREOP NR; Protocol Midazolam HCl (Versed) 2 mg IV PREOP NR Stop: 12/24/18 23:59 Ondansetron HCl (Zofran) 4 mg IV ONCE PRN PRN Reason: Nausea And Vomiting Stop: 12/24/18 16:00 - Physical exam General appearance: no acute distress, other (appears to be in pain) Integumentary: no rash, no growths, no abnormal pigmentation Lungs: Normal air movement Neurological: Normal speech - Brief post op/procedure progress note Date of procedure: 12/24/18 (dictation:[id number]) Pre-op diagnosis: esophageal cancer Post-op diagnosis: same Procedure: US guided port placement Anesthesia: MAC Findings: normal vascular anatomy Surgeon: JUDAH TOWNSEND Estimated blood loss: minimal (<10cc) Pathology: none Condition: stable - Hospital course Hospital course: uneventful - Disposition Condition at discharge: Stable Disposition: DC-01 TO HOME OR SELFCARE Short Stay Discharge Plan Activity: other (do not drive while using narcotics) Diet: other (may resume tube feeds) Wound: open to air, keep clean and dry, other (apply ice pack to right upper chest/neck for 10-15min/4-5 times a day. May shower tomorrow. Pat dry wounds. ) Follow up with: DANIELLE MONTERROSO MD [Primary Care Provider] - 7 Days Prescriptions: Oxycodone HCl/Acetaminophen [Percocet 7.5/325 mg] 1 each PO Q6HR PRN #20 tablet PRN Reason: Pain
[2018-12-24] MEDS ORDERED: NACL P/F VIAL (10 ML) 10 ML ONE (09:48)
[2018-12-24] MEDS ORDERED: SUBLIMAZE ONE ×2 (09:48→09:51)
[2018-12-24] MEDS ORDERED: NACL 0.9% 250ML 250 ML ONE (09:48)
[2018-12-24] MEDS ORDERED: DIPRIVAN 10 MG/ML IV ONE (09:48)
[2018-12-24] MEDS ORDERED: HEPARIN 10,000 UNITS/10 ML ONE (09:48)
[2018-12-24] MEDS ORDERED: VERSED IV NR (10:00)
[2018-12-24] MEDS ORDERED: VANCOMYCIN/NS 1 GM/250 ML 1 GM/250 ML BAG IV NR (10:00)
[2018-12-24] MEDS ORDERED: VANCOMYCIN 1,500 MG in NACL 0.9% 500 ML 500 ML IV SCH (10:15)
[2018-12-24] MEDS ORDERED: HEPARIN 10,000 UNITS/10 ML IV ONE ×2 (10:39→10:53)
[2018-12-24] MEDS ORDERED: XYLOCAINE 1% 20 mL INFILTRATI ONE ×2 (10:55)
[2018-12-24] MEDS ORDERED: NACL 0.9% IR ONE (10:56)
[2018-12-24] MEDS ORDERED: NACL 0.9% 250ML IV ONE (10:56)
--- NOTE | 2018-12-24 11:39 | Fluoroscopy Report ---
FLUOROSCOPY CENTRAL VENOUS DEVICE PLACEMENT History: Esophageal cancer, insertion of [id number]-[id number]. Findings: Single AP view of the chest is presented. The distal tip of the right IJ Jquxit-o-Vagi terminates near the cavoatrial junction. 3-lead pacemaker device is also in position. Mild cardiomegaly and pulmonary venous congestion are identified. The lungs are generally clear. No pneumothorax or pleural effusion. Impression: Right Xfffbc-[id number] placement as described. No pneumothorax.
--- NOTE | 2018-12-24 12:37 | Operative Report ---
PREOPERATIVE DIAGNOSIS: Esophageal cancer. POSTOPERATIVE DIAGNOSIS: Esophageal cancer. PROCEDURE: 1. Insertion of tunneled central venous catheter with subcutaneous port. 2. Ultrasound-guided vascular access. ATTENDING PHYSICIAN: Viktoria Spencer MD ANESTHESIA: MAC. ESTIMATED BLOOD LOSS: Less than 10 mL. FLUIDS: 450 mL. FINDINGS: Normal vascular anatomy. IMPLANTS: Smart port. DRAINS: None. COMPLICATIONS: None. DISPOSITION: Stable transport to Recovery. INDICATIONS: This is a 47-year-old male with a diagnosis of esophageal cancer. The patient was assessed to be in need for neoadjuvant chemotherapy. Request was made for port placement. Procedure, risks, benefits were explained to the patient. Risks included but were not limited to infection, bleeding, pain, injury to surrounding structures, possible need for further procedures in the future. The patient understood and consented. Of note, the patient has a pacemaker defibrillator device on the left side. Therefore, decision was made to go on the right. We did talk to the patient about his lidocaine reported allergy. He gets some yellowish skin discoloration, but he does not suffer any hives, rashes, itching, throat swelling, hemodynamic instability, etc. We felt that this was not necessarily a true allergy, perhaps some other event happened at that time he was last hospitalized, any associated lidocaine with skin discoloration. He denies any blackness to the skin or of skin or loss of skin. The discoloration may be secondary to some other issue. He was okay with using the lidocaine in order to avoid general anesthesia, which would potentially compromise his congestive heart failure. OPERATIVE NOTE: The patient was brought to the operating room and placed on the table in supine position. After adequate sedation was established, roll was placed behind the shoulders. Sterile prep and drape was performed. Timeout was called. SCDs were in place. Vancomycin had been administered prior to start of the case. Timeout was performed. Under ultrasound guidance I evaluated the right internal jugular vein. It appeared to be widely patent. There was no evidence of any stenosis or clots. It appeared to be a very good target. The subclavian vein also appeared to be a good target; however, as we are going to do this under MAC and there was a question of some side effect is related lidocaine I thought it would be more straightforward and less lidocaine will be required if I went to the right internal jugular vein. The patient was in Trendelenburg position. Under ultrasound guidance, I advanced an echogenic needle after anesthetizing that site with 1% lidocaine. I advanced the needle into the vein. I had easy aspiration of blood on the first attempt. Guidewire easily passed. Because of the presence of the pacemaker, cardiac leads, etc., I watched the guidewire pass under fluoroscopy to make sure that we did not compromise or interfere with the other wires. Guidewire passed easily on the right side of the heart. The guidewire was then secured to the drapes. I planned where the subcutaneous port would be injected at site with 1% lidocaine. Incision was made into the subcutaneous tissue through the skin, I bluntly created the pocket. The subcutaneous tissue was dense he did not have very much. We had to go close to the fascia in order to create a good pocket and still not make the skin too thin, but extra dissection was required in order to create the pocket and the tissue was tough. Once pocket was created, we then passed the tunneler with the catheter up to the neck. We did anesthetize the tract site. Sheath and dilator were passed easily over the wire. We watched with fluoroscopy. I watched out the wire and dilator was pulled out slowly and then we advanced the catheter. We measured where the catheter extension should be and then made the appropriate division on the distal aspect to connect the port. The collar was placed. Port was placed in the subcutaneous tissue. I checked the port with dilute heparinized saline. We had easy aspiration and flush. I then removed the remainder of the sheath, placed the catheter in the appropriate position. The tip of the catheter was below the javier at approximately 1 vertebral body. The catheter route or path was nice and smooth without any kinks. Locking solution was then administered. I aspirated and then flushed, it went in very easily. Catheter was in the pocket. I closed the subcutaneous tissue with interrupted 3-0 Vicryl sutures on the dermis and then I closed the skin at both sites with 4-0 Monocryl subcuticular stitches. Skin was cleaned and dried. Dermabond was placed. We performed a chest x-ray at the end of the case. I saw no evidence of any complications. Catheter tip appeared to be in adequate position. The patient tolerated procedure well with no complications. All counts were correct at the end of the case. [facility]# [id number] JANESSA/BEATA
[2018-12-24 12:52] VITALS: BP 110/71
--- NOTE | 2018-12-24 13:11 | Post Anesthesia Evaluation ---
- Post Anesthesia Evaluation Patient Participated: Yes Airway Patent: Yes Stable Respiratory Function: Yes Nausea/Vomiting: No Temp > 96.8F: Yes Pain Manageable: Yes Adequeate Hydration: Yes Anesthesia Complications: No
== END 2018-12-24 14:10 | disposition home or self-care (01) ==
LOC: OR 08:21
PROVIDERS: ATTEND Surgery
DX: C15.9 Malignant neoplasm of esophagus, unspecified (principal); I25.2 Old myocardial infarction; I11.0 Hypertensive heart disease with heart failure; E11.9 Type 2 diabetes mellitus without complications; E66.01 Morbid (severe) obesity due to excess calories; Z68.33 Body mass index [BMI] 33.0-33.9, adult; I26.99 Other pulmonary embolism without acute cor pulmonale; I50.23 Acute on chronic systolic (congestive) heart failure; G47.33 Obstructive sleep apnea (adult) (pediatric); I48.91 Unspecified atrial fibrillation; M10.9 Gout, unspecified; I25.10 Atherosclerotic heart disease of native coronary artery without angina pectoris; J43.9 Emphysema, unspecified; Z80.8 Family history of malignant neoplasm of other organs or systems; Z83.3 Family history of diabetes mellitus; Z79.899 Other long term (current) drug therapy; Z79.82 Long term (current) use of aspirin; Z79.4 Long term (current) use of insulin; Z87.891 Personal history of nicotine dependence; Z95.810 Presence of automatic (implantable) cardiac defibrillator; Z91.14 Patient's other noncompliance with medication regimen; Z79.01 Long term (current) use of anticoagulants; Z87.19 Personal history of other diseases of the digestive system; Z82.49 Family history of ischemic heart disease and other diseases of the circulatory system; Z88.8 Allergy status to other drugs, medicaments and biological substances
CPT/HCPCS: 36561; 76937; 77001; 82962; C1788; J1170; J1644; J2250; J2704; J3010; J3370; J7040; J7050; J7120

== ENCOUNTER 2018-12-26 11:37 | Outpatient (CLI) | payer MEDICAID ==
--- NOTE | 2018-12-27 13:15 | PET Report ---
PET/CT:12/26/18 11:37:00 CLINICAL: Malignant neoplasm of the esophagus. RADIOPHARMACEUTICAL: 12.155mCi F18-FDG. COMPARISON: CT chest 11/09/[address] abdomen and pelvis 12/11/18 TECHNIQUE- Following intravenous injection of F-18 FDG and an approximately 60 minute uptake period, CT and PET images from the mid skull to the upper thighs were acquired with the patient in the fasted state. No contrast was administered. The CT protocol used for this PET CT study is designed for attenuation correction and anatomic localization of PET abnormalities. This hooker laster CT is not desired to produce and cannot replace, [id number] diagnostic CT scans with specific imaging protocols for different body parts and indications. Plasma glucose at the time of this test: 133g/dl. The standardized uptake values (SUV) are normalized to patient body weight and indicate the highest activity concentration (SUV max) in a given disease site. FINDINGS: Brain--Physiologic FDG uptake in the visualized regions of the brain. Neck--Physiologic FDG uptake in mucosal structures. No mass or lymphadenopathy. Chest--FDG avid distal esophageal mass measures approximately 9 cm craniocaudal dimension by 7.9 cm transverse dimension of 4.4 cm AP dimension with SUV 11.7. The mass extends below the diaphragm to the stomach. The heart is large. Pacer leads in the heart. Physiologic FDG uptake in mediastinal blood pool and myocardium. Lungs--No abnormal uptake. No pulmonary nodule or mass. Pleura/pericardium--No abnormal uptake. Small bilateral pleural effusions. Thoracic nodes--An FDG avid left mediastinal lymph node measures 2.2 x 1.6 cm with SUV 9.7. The lymph node lies lateral to the left mainstem bronchus and is contiguous to the aorta and the left pulmonary artery. A cluster of enlarged FDG avid right inferior mediastinal lymph nodes with SUV 8.8. This cluster of lymph nodes abuts the left atrium and measures at least 5.4 x 3.3 cm. Hepatobiliary--No abnormal uptake. Liver background SUV mean, as a reference for comparing FDG studies, is 3.5 . No liver mass. Spleen--No abnormal uptake. Pancreas--No abnormal uptake. Adrenal Glands--No abnormal uptake. Kidneys/Ureters/Bladder--No abnormal uptake. Abdominopelvic Nodes--No abnormal uptake. Bowel/Peritoneum/Mesentery--No abnormal uptake. Pelvic organs--No abnormal uptake. Bones/Soft Tissues--No abnormal uptake and no suspicious bone lesions. IMPRESSION- 1. A 9 cm FDG avid distal esophageal mass with extension to the stomach. 2. Mediastinal leda metastasis as. 3. Small bilateral pleural effusions. 4. No evidence of hepatic or pulmonary metastasis.
== END 2018-12-26 11:38 | disposition home or self-care (01) ==
LOC: PET 11:37
PROVIDERS: ATTEND Internal Medicine Hematology & Oncology
DX: C15.9 Malignant neoplasm of esophagus, unspecified (principal); J90 Pleural effusion, not elsewhere classified; I11.0 Hypertensive heart disease with heart failure; J44.9 Chronic obstructive pulmonary disease, unspecified; M19.90 Unspecified osteoarthritis, unspecified site; Z87.891 Personal history of nicotine dependence; I25.10 Atherosclerotic heart disease of native coronary artery without angina pectoris; K21.9 Gastro-esophageal reflux disease without esophagitis; E66.01 Morbid (severe) obesity due to excess calories; I50.23 Acute on chronic systolic (congestive) heart failure; E11.9 Type 2 diabetes mellitus without complications
CPT/HCPCS: 78815; 82962; A9552

== ENCOUNTER 2018-12-27 01:20 | Inpatient (IN) | payer MEDICAID ==
[2018-12-27] MEDS ORDERED: ASPIRIN PO ONE (01:31)
[2018-12-27] MEDS ORDERED: PEPCID IV ONE (01:34)
[2018-12-27] MEDS ORDERED: DILAUDID IV ONE (01:34)
--- NOTE | 2018-12-27 02:00 | XRay Report ---
PROCEDURE: XR CHEST 1V AP TECHNIQUE: Single PA view of the chest. HISTORY: Chest pain. COMPARISONS: Chest radiograph December 11, 2018. FINDINGS: A right-sided chest port is noted, the tip terminates in the mid superior vena cava. Multilead cardia c pacemaker. Moderate enlargement of the cardiac silhouette. Mild prominence of the central pulmonary vascularity. No lobar consolidation or large pleural effusion. No acute osseous abnormality. IMPRESSION: Moderate enlargement of the cardiac silhouette and prominence of the central pulmonary vascularity. F indings suggestive of early pulmonary venous congestion. There is no large pleural effusion. This document is electronically signed by Ignacio Zambrano DO., December 27 2018 01:57:59 AM ET
[2018-12-27 02:21] LABS: Basophils % (Auto) 0.5 % (0.0-1.8); Eosinophils # (Auto) 0.1 K/mm3 (0.0-0.4); Eosinophils % (Auto) 0.8 % (0.0-4.3); Hematocrit 20.7 % (35.5-45.6); Hemoglobin 6.5 gm/dl (11.8-15.2); Lymphocytes # (Auto) 0.5 K/mm3 (1.2-5.4); Lymphocytes % (Auto) 5.2 % (13.4-35.0); Mean Corpuscular HGB Conc 32 % (32-34); Mean Corpuscular Volume 78 fl (84-94); Monocytes # (Auto) 0.9 K/mm3 (0.0-0.8); Monocytes % (Auto) 9.8 % (0.0-7.3); Platelet Count 268 K/mm3 (140-440); Red Blood Count 2.67 M/mm3 (3.65-5.03); Red Cell Distribution Width 17.4 % (13.2-15.2)
[2018-12-27 02:31] LABS: INR 1.29 (0.87-1.13)
[2018-12-27 02:44] LABS: BUN/Creatinine Ratio 14; Blood Urea Nitrogen 14 mg/dL (9-20); Calcium 8.9 mg/dL (8.4-10.2); Hemolysis Index 3
[2018-12-27] MEDS ORDERED: NACL 0.9% 500 ML 500 ML IV ONE (02:52)
--- NOTE | 2018-12-27 02:56 | Emergency Department Report ---
ED General Adult HPI - General Chief complaint: Chest Pain Stated complaint: BLOCKED FEEDING TUBE/ABD PAIN Time Seen by Provider: 12/27/18 01:25 Source: patient, EMS Mode of arrival: Stretcher Limitations: No Limitations - History of Present Illness Initial comments: This is a 47-year-old gentleman. I have evaluated him multiple times in the past the patient has a history of paroxysmal ventricular fibrillation, atrial flutter, cardioversion, nonischemic cardiomyopathy, indwelling cardiac defibrillator, recently diagnosed with a pulmonary embolus, on Lovenox injections for the past, recently diagnosed with esophageal cancer, recently had a port placed by one of our local general surgeons. Today, the patient presents to the emergency room with his typical constellation of complaints, including chest pain, nausea, and abdominal pain. He reports that he is able to use his feeding tube and push fluids through it, but he is unable to pull back. His chest pain as subxiphoid and epigastric. It does not radiate to the back, arms or neck. There is chronic shortness of breath. There is acute on chronic nausea, vomiting. There is no diaphoresis. There is no hematemesis or bright red blood per rectum and he is aware of. -: Gradual (chest pain and abdominal pain started at 7:00 PM) Location: chest, abdomen Radiation: non-radiation Severity scale (0 -10): 10 Quality: aching Consistency: constant Improves with: medication (improved with hydromorphone) Worsens with: none - Related Data Home Medications Medication Instructions Recorded Confirmed Last Taken Magnesium Oxide 400 mg PO DAILY 08/31/16 12/27/18 12/26/18 Insulin Glargine,Hum.rec.anlog 20 unit SQ HS 09/29/18 12/27/18 12/26/18 [Lantus] Digoxin [Lanoxin] 0.125 mg PO DAILY 12/10/18 12/27/18 12/26/18 Gabapentin [Neurontin] 300 mg PO DAILY 12/10/18 12/27/18 12/26/18 Omeprazole 20 mg PO DAILY 12/10/18 12/27/18 12/26/18 glipiZIDE [Glipizide] 10 mg PO DAILY 12/10/18 12/27/18 12/26/18 Aspirin [Aspirin BABY CHEW TAB] 81 mg PO QDAY 0312/27/18 12/26/18 Potassium Chloride [Klor-Con M20] 20 meq PO BID 12/20/18 12/27/18 12/26/18 Tizanidine HCl [Zanaflex] 4 mg PO BID 12/23/18 12/27/18 12/26/18 Previous Rx's Medication Instructions Recorded Last Taken Type Carvedilol [Coreg] 25 mg PO BID #60 tablet 06/10/17 12/26/18 Rx Torsemide [Demadex] 100 mg PO QDAY #30 tablet 10/19/17 12/26/18 Rx Allopurinol [Zyloprim] 100 mg PO BID tablet 11/20/18 12/26/18 Rx Ferrous Sulfate [Feosol 325 MG tab] 325 mg PO BID tablet 11/20/18 12/26/18 Rx Lisinopril [Zestril TAB] 2.5 mg PO BID tablet 11/20/18 12/26/18 Rx Oxycodone HCl/Acetaminophen 1 each PO Q6HR PRN #20 tablet 12/24/18 12/26/18 Rx [Percocet 7.5/325 mg] Allergies Allergy/AdvReac Type Severity Reaction Status Date / Time cephalexin monohydrate AdvReac Shakes Verified 12/23/18 14:22 [From Keflex] lidocaine AdvReac "Skin Verified 12/23/18 14:22 Yellowing" mushrooms Allergy Anaphylaxis Uncoded 12/23/18 14:22 ED Review of Systems ROS: Stated complaint: BLOCKED FEEDING TUBE/ABD PAIN Other details as noted in HPI Constitutional: malaise. denies: fever Eyes: denies: vision change ENT: denies: congestion Respiratory: shortness of breath. denies: cough Cardiovascular: chest pain Gastrointestinal: abdominal pain, nausea, vomiting Genitourinary: denies: hematuria Musculoskeletal: back pain (chronic) Skin: denies: lesions Neurological: weakness Psychiatric: anxiety ED Past Medical Hx - Past Medical History Hx Hypertension: Yes Hx Heart Attack/AMI: No Hx Congestive Heart Failure: Yes Hx Diabetes: Yes Hx Deep Vein Thrombosis: Yes Hx Pulmonary Embolism: Yes Hx Liver Disease: No Hx Renal Disease: Yes Hx Sickle Cell Disease: No Hx Arthritis: Yes Hx Asthma: Yes Hx COPD: Yes (uses CPAP) Hx Tuberculosis: No Hx HIV: No Additional medical history: sleep apnea. anemia. severe pulmonary HTN. atrial fibrillation treated with cardioversion 11/2017. Hx of VT/VF;. esophageal varices - Surgical History Hx Coronary Stent: No Hx Pacemaker: Yes (PVCs; checked a few months ago and good battery life per pt) Hx Internal Defibrillator: Yes (AICD; Last shock 1.5y ago) Hx Cholecystectomy: Yes Additional Surgical History: defibrillator, pacemaker; bands in stomach., GI tube left - Social History Smoking Status: Former Smoker Substance Use Type: None - Medications Home Medications: Home Medications Medication Instructions Recorded Confirmed Last Taken Type Magnesium Oxide 400 mg PO DAILY 08/31/16 12/27/18 12/26/18 History Carvedilol [Coreg] 25 mg PO BID #60 tablet 06/10/17 12/27/18 12/26/18 Rx Torsemide [Demadex] 100 mg PO QDAY #30 tablet 10/19/17 12/27/18 12/26/18 Rx Insulin Glargine,Hum.rec.anlog 20 unit SQ HS 09/29/18 12/27/18 12/26/18 History [Lantus] Allopurinol [Zyloprim] 100 mg PO BID tablet 11/20/18 12/27/18 12/26/18 Rx Ferrous Sulfate [Feosol 325 MG tab] 325 mg PO BID tablet 11/20/18 12/27/18 12/26/18 Rx Lisinopril [Zestril TAB] 2.5 mg PO BID tablet 11/20/18 12/27/18 12/26/18 Rx Digoxin [Lanoxin] 0.125 mg PO DAILY 12/10/18 12/27/18 12/26/18 History Gabapentin [Neurontin] 300 mg PO DAILY 12/10/18 12/27/18 12/26/18 History Omeprazole 20 mg PO DAILY 12/10/18 12/27/18 12/26/18 History glipiZIDE [Glipizide] 10 mg PO DAILY 12/10/18 12/27/18 12/26/18 History Aspirin [Aspirin BABY CHEW TAB] 81 mg PO QDAY 12/20/18 12/27/18 12/26/18 History Potassium Chloride [Klor-Con M20] 20 meq PO BID 12/20/18 12/27/18 12/26/18 History Tizanidine HCl [Zanaflex] 4 mg PO BID 12/23/18 12/27/18 12/26/18 History Oxycodone HCl/Acetaminophen 1 each PO Q6HR PRN #20 tablet 12/24/18 12/27/18 12/26/18 Rx [Percocet 7.5/325 mg] ED Physical Exam - General Limitations: No Limitations General appearance: alert, anxious, obese - Head Head exam: Present: atraumatic, normocephalic - Eye Eye exam: Present: normal appearance, EOMI. Absent: nystagmus - ENT ENT exam: Present: normal exam, normal orophraynx, mucous membranes moist, normal external ear exam - Neck Neck exam: Present: normal inspection, full ROM. Absent: tenderness, meningismus - Respiratory Respiratory exam: Present: decreased breath sounds. Absent: respiratory distress - Cardiovascular Cardiovascular Exam: Present: regular rate, normal rhythm, normal heart sounds. Absent: bradycardia, tachycardia, irregular rhythm, systolic murmur, diastolic murmur, rubs, gallop - GI/Abdominal GI/Abdominal exam: Present: soft, other (feeding tube in place, with no redness, pus or streaking.). Absent: distended, tenderness, guarding, rebound, rigid, pulsatile mass - Rectal Rectal exam: Present: deferred - Extremities Exam Extremities exam: Present: normal inspection, full ROM, pedal edema, other (2+ pulses noted in the bilateral upper, lower extremities. Compartments soft. No long bony tenderness. The pelvis is stable.). Absent: calf tenderness - Back Exam Back exam: Present: normal inspection, full ROM. Absent: tenderness, CVA tenderness (R), paraspinal tenderness, vertebral tenderness - Neurological Exam Neurological exam: Present: alert, oriented X3, CN II-XII intact, other (Extraocular movements intact. Tongue midline. No facial droop. Facial sensation intact to light touch in the V1, V2, V3 distribution bilaterally. 5 and 5 strength in 4 extremities.. Sensation is intact to light touch in 4 extremities.). Absent: motor sensory deficit - Psychiatric Psychiatric exam: Present: normal affect, normal mood - Skin Skin exam: Present: warm, dry, intact, normal color. Absent: rash ED Course Vital Signs 12/27/18 12/27/18 12/27/18 01:25 01:26 01:30 Temperature 98.1 F Pulse Rate 96 H Respiratory 28 H Rate Blood Pressure 119/79 119/79 O2 Sat by Pulse 100 100 100 Oximetry 12/27/18 12/27/18 12/27/18 01:45 02:00 02:16 Temperature Pulse Rate 90 93 H 95 H Respiratory 14 14 19 Rate Blood Pressure 118/68 118/68 125/77 O2 Sat by Pulse 100 100 98 Oximetry 12/27/18 12/27/18 12/27/18 02:54 03:00 03:15 Temperature Pulse Rate 94 H 98 H 94 H Respiratory 13 18 21 Rate Blood Pressure 124/71 121/72 O2 Sat by Pulse 100 100 Oximetry 12/27/18 12/27/18 12/27/18 03:30 03:46 04:00 Temperature Pulse Rate 224 H 91 H 97 H Respiratory 15 18 16 Rate Blood Pressure 121/72 134/68 134/68 O2 Sat by Pulse 100 100 100 Oximetry 12/27/18 12/27/18 12/27/18 04:15 04:30 04:45 Temperature Pulse Rate 95 H 97 H 90 Respiratory 16 14 21 Rate Blood Pressure 133/79 133/79 137/88 O2 Sat by Pulse 99 98 99 Oximetry 12/27/18 12/27/18 05:00 05:15 Temperature Pulse Rate 94 H 93 H Respiratory 20 20 Rate Blood Pressure 137/88 129/83 O2 Sat by Pulse 99 100 Oximetry - Reevaluation(s) Reevaluation #1: 12/27/18 02:57 Differential diagnosis, including but not limited to: GERD, gastritis, hiatal hernia, pneumothorax, acute coronary syndrome, retroperitoneal hematoma, malposition of feeding tube, chronic abdominal pain, cyclic vomiting syndrome, narcotic dependence Assessment and plan: 47-year-old gentleman with multiple complaints. Recently seen by cardiology at this hospital on 12/11/2018. At that time, as further documentation, there is no indication for additional ischemic workup needed. We will treat his pain. Patient has chronic abdominal pain for which I have evaluated him personally, multiple times in the past. His presentation today appears to be similar to prior episodes. During his recent hospitalization, he was found to have a small quantity of pneumoperitoneum, which was expected given his recent placement of feeding tube. This was evaluated by both Gen. surgery, and gastroenterology. He is currently sleeping currently, in his stretcher, and in no acute distress. Unexpectedly, patient found to have an impressive anemia today, with a hemoglobin of 6.5, and a hematocrit of 20. Noncontrast CT scan of the abdomen and pelvis is obtained to exclude retroperitoneal hematoma, and confirmed placement of feeding tube. Gastrografin was also ordered to be infused into the tube prior to the CT. Given his history of cardiomyopathy, patient will require judicious resuscitation. He will therefore be given 1 unit of packed red blood cells. We will admit him to the medical service for presumed symptomatic anemia once his initial data points have resulted. Reevaluation #2: 12/27/18 04:32 Patient found to be guaiac positive. Gastroenterology paged. Protonix ordered. Hospital physician, Dr. Evette Saab accepts patient to the medical service. Discussed findings with patient. Reevaluation #3: 12/27/18 05:19 Discussed with , of gastroenterology, he agrees with plan, his group will follow in consultation. ED Medical Decision Making - Lab Data Result diagrams: 12/27/18 01:54 12/27/18 01:54 Vital Signs 12/27/18 12/27/18 12/27/18 01:25 01:26 01:30 Temperature 98.1 F Pulse Rate 96 H Respiratory 28 H Rate Blood Pressure 119/79 119/79 O2 Sat by Pulse 100 100 100 Oximetry Lab Results 12/27/18 12/27/18 12/27/18 Range/Units 01:54 01:54 01:54 WBC 9.0 (4.5-11.0) K/mm3 RBC 2.67 L (3.65-5.03) M/mm3 Hgb 6.5 L (11.8-15.2) gm/dl Hct 20.7 L (35.5-45.6) % MCV 78 L (84-94) fl MCH 25 L (28-32) pg MCHC 32 (32-34) % RDW 17.4 H (13.2-15.2) % Plt Count 268 (140-440) K/mm3 Lymph % (Auto) 5.2 L (13.4-35.0) % Hughes % (Auto) 9.8 H (0.0-7.3) % Eos % (Auto) 0.8 (0.0-4.3) % Baso % (Auto) 0.5 (0.0-1.8) % Lymph # 0.5 L (1.2-5.4) K/mm3 Hughes # 0.9 H (0.0-0.8) K/mm3 Eos # 0.1 (0.0-0.4) K/mm3 Baso # 0.0 (0.0-0.1) K/mm3 Seg Neutrophils % 83.7 H (40.0-70.0) % Seg Neutrophils # 7.5 (1.8-7.7) K/mm3 PT 16.9 H (12.2-14.9) Sec. INR 1.29 H (0.87-1.13) Sodium 133 L (137-145) mmol/L Potassium 3.2 L (3.6-5.0) mmol/L Chloride 93.1 L (98-107) mmol/L Carbon Dioxide 24 (22-30) mmol/L Anion Gap 19 mmol/L BUN 14 (9-20) mg/dL Creatinine 1.0 (0.8-1.5) mg/dL Estimated GFR > 60 ml/min BUN/Creatinine Ratio 14 % Glucose 107 H (75-100) mg/dL Calcium 8.9 (8.4-10.2) mg/dL Magnesium (1.7-2.3) mg/dL Troponin T < 0.010 (0.00-0.029) ng/mL 12/27/18 Range/Units 01:54 WBC (4.5-11.0) K/mm3 RBC (3.65-5.03) M/mm3 Hgb (11.8-15.2) gm/dl Hct (35.5-45.6) % MCV (84-94) fl MCH (28-32) pg MCHC (32-34) % RDW (13.2-15.2) % Plt Count (140-440) K/mm3 Lymph % (Auto) (13.4-35.0) % Hughes % (Auto) (0.0-7.3) % Eos % (Auto) (0.0-4.3) % Baso % (Auto) (0.0-1.8) % Lymph # (1.2-5.4) K/mm3 Hughes # (0.0-0.8) K/mm3 Eos # (0.0-0.4) K/mm3 Baso # (0.0-0.1) K/mm3 Seg Neutrophils % (40.0-70.0) % Seg Neutrophils # (1.8-7.7) K/mm3 PT (12.2-14.9) Sec. INR (0.87-1.13) Sodium (137-145) mmol/L Potassium (3.6-5.0) mmol/L Chloride (98-107) mmol/L Carbon Dioxide (22-30) mmol/L Anion Gap mmol/L BUN (9-20) mg/dL Creatinine (0.8-1.5) mg/dL Estimated GFR ml/min BUN/Creatinine Ratio % Glucose (75-100) mg/dL Calcium (8.4-10.2) mg/dL Magnesium 1.70 (1.7-2.3) mg/dL Troponin T (0.00-0.029) ng/mL - EKG Data -: EKG Interpreted by [facility] - EKG Data 12/27/18 02:59 Ventricular paced rhythm, left axis deviation, premature ventricular complex, motion artifact, QTC prolonged, abnormal EKG, not consistent with ST elevation myocardial infarction. Appears to be unchanged from prior EKG from 12/11/2018. - Radiology Data Radiology results: report reviewed, image reviewed Print Report Referring Physician: MURRAY JOHNSON Patient Name: ANGELES ALARCON Date of : 1970 Sex: Male Report Date: 2018-12-27 Report Status: Finalized Findings [address] [address] XRay Report Signed Patient: ANGELES ALARCON MR#: [id number] : 1970 Acct:[id number] Age/Sex: 47 / M ADM Date: 12/27/18 Loc: ED Attending Dr: Ordering Physician: MURRAY JOHNSON MD Date of Service: 12/27/18 Procedure(s): XR chest 1V ap Accession Number(s): [id number] cc: MURRAY JOHNSON MD Fluoro Time In Minutes: PROCEDURE: XR CHEST 1V AP TECHNIQUE: Single PA view of the chest. HISTORY: Chest pain. COMPARISONS: Chest radiograph December 11, 2018. FINDINGS: A right-sided chest port is noted, the tip terminates in the mid superior vena cava. Multilead cardiac pacemaker. Moderate enlargement of the cardiac silhouette. Mild prominence of the central pulmonary vascularity. No lobar consolidation or large pleural effusion. No acute osseous abnormality. IMPRESSION: Moderate enlargement of the cardiac silhouette and prominence of the central pulmonary vascularity. Findings suggestive of early pulmonary venous congestion. There is no large pleural effusion. This document is electronically signed by Charlie Zambrano DO., December 27 2018 01:57:59 AM ET Transcribed By: DT Dictated By: CHARLIE ZAMBRANO DO Electronically Authenticated By: CHARLIE ZAMBRANO DO Signed Date/Time: 12/27/[address] scan of the abdomen and pelvis is negative for acute disease. Critical Care Time: Yes Critical care time in (mins) excluding proc time.: 35 Critical care attestation.: If time is entered above; I have spent that time in minutes in the direct care of this critically ill patient, excluding procedure time. ED Disposition Clinical Impression: Gastrointestinal bleeding, Chest pain, Anemia, Dilated cardiomyopathy Disposition: -09 OP ADMIT IP TO THIS HOSP Is pt being admited?: Yes Condition: Good
[2018-12-27] MEDS ORDERED: K-DUR PO ONE (03:16)
[2018-12-27] MEDS: KCL 10MEQ/100ML 10 MEQ/100 ML BAG IV SCH ×2 (03:29→04:32)
--- NOTE | 2018-12-27 03:46 | Cat Scan Report ---
PROCEDURE: CT ABDOMEN PELVIS WO CON TECHNIQUE: Computerized axial tomography of the abdomen and pelvis was performed without intravenous contrast. This study is performed without intravascular contrast material and its sensitivity for ab dominal and pelvic pathology, including neoplasms, inflammation, abscess, free fluid, thrombosis, art erial dissection and infarction, is reduced compared with a contrast enhanced study. CT DOSE LENGTH PRODUCT: mGycm HISTORY: abd pain COMPARISONS: None . FINDINGS: Visualized lower thorax: Heart is borderline enlarged. There are small bilateral pleural effusions.. Liver: Normal size and attenuation. Spleen: Normal size and attenuation. Gallbladder and biliary system: There has been a cholecystectomy.. Pancreas: Normal. Adrenals: Normal. Kidneys: There are no kidney stones. There is no hydronephrosis. There is a 2.6 cm cyst in the upper pole of the left kidney. There is a 2 cm cortical density at the lower pole of the left kidney simila r to prior study which could be hemorrhagic cyst. GI tract: There is a hiatal hernia. There is contrast in the stomach. There is is a gastrostomy tube . The anchor portion of the tube is outside the stomach. However the tip of the tube appears to be in the stomach. The small bowel and colon are unremarkable. The appendix is identified. Lymph nodes and mesentery: Normal. Vasculature: Normal.. Bladder: Normal. Reproductive organs: Normal. Peritoneum: No free fluid. Musculoskeletal structures: There is hardware transfixing portions of the right hemipelvis.. Other: There is a subcutaneous mass in the dorsal aspect of the lumbar region measuring 7 x 8 x 8 cm . This was present on the prior study and has not changed. There is an umbilical hernia containing fat only.. IMPRESSION: There has been a cholecystectomy. There are no kidney stones. There is no hydronephrosis. There is a 2.6 cm cyst in the upper pole of t he left kidney. There is a 2 cm cortical density at the lower pole of the left kidney similar to prio r study which could be hemorrhagic cyst. There is a hiatal hernia. There is contrast in the stomach. There is is a gastrostomy tube. The ancho r portion of the tube is outside the stomach. However the tip of the tube appears to be in the stomac h. There is no ascites, free air, abscess or adenopathy. There is hardware transfixing portions of the right hemipelvis. There is a subcutaneous mass in the dorsal aspect of the lumbar region measuring 7 x 8 x 8 cm. This w as present on the prior study and has not changed. There is an umbilical hernia containing fat only. This document is electronically signed by Camilo Millan MD., December 27 2018 03:44:03 AM ET
[2018-12-27] MEDS ORDERED: PROTONIX IV ONE ×2 (04:31→05:33)
[2018-12-27] MEDS ORDERED: D50W (25GM) Syringe IV PRN (04:54)
[2018-12-27] MEDS: HumuLIN R SUB-Q SCH ×5 (05:28→21:34)
[2018-12-27] MEDS: PROTONIX IV SCH ×2 (05:29→17:29)
[2018-12-27] MEDS ORDERED: DILAUDID ONE (05:33)
[2018-12-27] MEDS: DILAUDID IV PRN ×5 (05:34→21:33)
--- NOTE | 2018-12-27 06:23 | History and Physical Report ---
CHIEF COMPLAINT: Abdominal pain. OTHER COMPLAINT: Includes chest pain. HISTORY OF PRESENT ILLNESS: The patient is a 47-year-old male who is presenting with multiple symptoms that include epigastric abdominal pain and retrosternal chest pain, nausea and vomiting. The patient said that his gastrostomy tube is able to flush when he pushes liquid in but he cannot pull back. There is no history of hematemesis. No history of hematochezia or melena. The patient described the symptom of occasionally vomiting dark-colored material. There is no history of fever or chills or cough. PAST MEDICAL HISTORY: Pertinent for hypertension, congestive heart failure, diabetes mellitus, deep vein thrombosis, recent diagnosis of pulmonary embolism with the patient on Lovenox shots. The patient also has past medical history of renal insufficiency, arthritis, asthma, chronic obstructive pulmonary disease with the patient using CPAP, sleep apnea, anemia, severe pulmonary hypertension, atrial fibrillation treated with cardioversion, recently diagnosed esophageal cancer, history of ventricular tachycardia. PAST SURGICAL HISTORY: Pertinent for pacemaker placement and defibrillator placement and cholecystectomy. FAMILY HISTORY: Noncontributory. SOCIAL HISTORY: The patient is a former cigarette smoker. Does not smoke currently, does not drink alcohol and does not use illicit drugs. MEDICATIONS: The patient is on magnesium oxide 400 mg by mouth daily, carvedilol 25 mg by mouth twice daily, Demadex (torsemide) 100 mg by mouth daily, Lantus insulin 20 units subQ at bedtime, allopurinol 100 mg by mouth twice daily, ferrous sulfate 325 mg by mouth daily, lisinopril 2.5 mg by mouth daily, Lanoxin (digoxin) 0.125 mg by mouth daily, Neurontin 300 mg by mouth daily, omeprazole 20 mg by mouth daily, glipizide 10 mg by mouth daily, aspirin 81 mg by mouth daily, potassium chloride, Klor-Con 20 mEq by mouth twice daily, Zanaflex 4 mg by mouth daily, Percocet 7.5/325 mg one by mouth every 6 hours as needed for pain. ALLERGIES: THE PATIENT IS ALLERGIC TO CEPHALEXIN, LIDOCAINE and MUSHROOM. REVIEW OF SYSTEMS: CONSTITUTIONAL: There is no fever, no chills, no diaphoresis. HEENT: There is no headache or sore throat. CARDIOVASCULAR: Chest pain is present. No orthopnea. RESPIRATORY: Chronic shortness of breath present. No cough. GASTROINTESTINAL: Epigastric, abdominal pain present. Nausea and vomiting present. The problem with flushing of gastrostomy tube noted. No diarrhea or constipation. NEUROLOGIC: There is no numbness, no dizziness, no altered mental status. MUSCULOSKELETAL: There is no joint pain or swelling. DERMATOLOGICAL SYSTEM: There is no skin rash. GENITOURINARY SYSTEM: There is no dysuria, hematuria, or flank pain. Rest of system review is normal. PHYSICAL EXAMINATION: GENERAL: By the time of exam, the patient was found to be alert, oriented x 3 and in mild distress due to abdominal pain. VITAL SIGNS: On initial time of presentation showed temperature of 98.1 degrees Fahrenheit, pulse of 96, respirations 28, blood pressure 119/79, O2 sat of 100% on room air. HEENT: Shows pupils to be equal, round, and reactive to light and accommodation. Extraocular muscles are intact. NECK: Supple with no JVD or carotid bruit. CARDIOVASCULAR SYSTEM: Shows normal heart sounds with no gallops or murmur. RESPIRATORY: Showed good air entry on both sides of the lungs with no abnormal breath sounds. GASTROINTESTINAL SYSTEM: Show abdomen to be full, soft, nontender with no organomegaly or rigidity elicited. Gastrostomy tube is in place. Bowel sounds are normal. NEUROLOGIC: Showed no focal deficit. MUSCULOSKELETAL SYSTEM: Show no joint swelling or tenderness, but there is an area of swelling in the right anterior chest area where the patient had defibrillator recently placed. DERMATOLOGICAL SYSTEM: Show no skin rash. GENITOURINARY SYSTEM: Show no costovertebral angle tenderness. Hemoccult test was positive. IMAGING STUDIES: The patient's CT of the abdomen and pelvis showed that there has been a cholecystectomy and showed no kidney stones, no hydronephrosis, a 2.6 cm cyst in the upper pole of the left kidney and 2 cm cortical density at the lower pole of the left kidney. There is a finding of hiatal hernia. Gastrostomy tube was found to be in place. There is no ascites, no free air, no abscess or adenopathy. There is a subcutaneous mass in the dorsal aspect of the lumbar region according to the radiologist, measuring 7 x 8 cm, present on the prior study, which has not changed. There is umbilical hernia, containing fat only. Also, the patient had chest x-ray done. Chest x-ray shows moderate enlargement of the cardiac silhouette and prominences of the central pulmonary vascularity. Radiologist says that the findings are suggestive of early pulmonary venous congestion. There is no large pleural effusions noted. LABORATORY DATA: The patient's CBC showed normal white count, low hemoglobin of 6.5, low hematocrit of 20.7, low MCV of 78 with CBC differential showing high monocyte count of 9.8 with high segmented neutrophil count of 83.7 with coagulation studies showing high PT of 16.9 and high INR of 1.29. The patient's chemistry showed low potassium level of 3.2 and low sodium of 133 with low chloride of 93.1 and with rest of chemistry being unremarkable. ASSESSMENT: 1. Symptomatic anemia. 2. Gastrointestinal bleed. PLAN OF CARE: 1. The patient will be admitted to telemetry. 2. The patient will have hemoglobin and hematocrit checked serially every 6 hours x 3 more levels. 3. The patient will remain n.p.o. and we will have GI consult with Dr. Colt Segal of the [facility]. 4. The patient will be on IV Protonix 40 mg every 12 hours and will be on Accu-Chek every 4 hours followed by sliding scale using low dose type and regular insulin coverage scale. 5. The patient will be on IV Dilaudid 1 mg every 4 hours as needed for pain and IV Zofran 4 mg every 8 hours for nausea and vomiting. 6. The patient's DVT prophylaxis will be through sequential compressive device. 7. The patient will have blood transfusion, 1 unit at this time as ordered by the Emergency Room physician. JOB# [id number] OCN/NTS ANTOINETTED
[2018-12-27 06:29] LABS: Hematocrit 22.1 % (35.5-45.6)
[2018-12-27] MEDS ORDERED: NACL 0.9% 500 ML 500 ML IV NR (10:30)
--- NOTE | 2018-12-27 14:54 | Event Note ---
Date: 12/27/18 Patient reevaluated Check H/H And K level and discharge tomorrow Has Esophageal mass - needs f/u with [facility] Discussed with Shannon Wasserman NP for AGA and agreed on no further w/u given his Esophageal Cancer\ GI consult cancelled
[2018-12-27 17:08] LABS: Hemoglobin 6.6 gm/dl (11.8-15.2)
[2018-12-27 20:19] LABS: Hematocrit 21.9 % (35.5-45.6); Hemoglobin 6.9 gm/dl (11.8-15.2)
[2018-12-28] MEDS: HumuLIN R SUB-Q SCH ×6 (01:38→20:41)
[2018-12-28] MEDS: DILAUDID IV PRN ×4 (01:38→14:00)
[2018-12-28] MEDS: PROTONIX IV SCH ×2 (05:36→18:24)
[2018-12-28] MEDS ORDERED: NACL 0.9% 500 ML 500 ML IV ONE ×2 (14:00→20:00)
[2018-12-28] MEDS: ZOFRAN IV PRN ×2 (14:05→23:04)
--- NOTE | 2018-12-28 16:56 | Progress Note ---
Assessment and Plan - Patient Problems (1) Symptomatic anemia Current Visit: Yes Status: Acute Plan to address problem: Transfuse 2 units of blood (2) Chest pain Onset Date: ~03/06/17 Current Visit: Yes Status: Acute Qualifiers: (3) Gastrointestinal bleeding Current Visit: Yes Status: Chronic Plan to address problem: Patient has Esophageal cancer Patient to follow-up at [facility] (4) Insulin dependent diabetes mellitus Current Visit: Yes Status: Chronic Plan to address problem: Continue home insulin and coverage (5) Sleep apnea Current Visit: Yes Status: Chronic Qualifiers: Sleep apnea type: unspecified type Qualified Code(s): G47.30 - Sleep apnea, unspecified Plan to address problem: Continue CPAP machine (6) DVT prophylaxis Current Visit: Yes Status: Acute Plan to address problem: SCDs only and GI prophylaxis Subjective Date of service: 12/28/18 Principal diagnosis: symptomatic anemia, COPD Interval history: Symptomatically better Vomiting better Objective - Constitutional Vitals: Vital Signs - 12hr 12/28/18 12/28/18 12/28/18 05:00 08:11 08:12 Temperature 98.1 F 98.1 F Pulse Rate 90 90 Respiratory 18 Rate Respiratory Rate [Chest] Blood Pressure 108/66 O2 Sat by Pulse 99 Oximetry 12/28/18 12/28/18 12/28/18 09:42 09:44 10:12 Temperature Pulse Rate Respiratory 20 20 Rate Respiratory 20 Rate [Chest] Blood Pressure O2 Sat by Pulse Oximetry 12/28/18 12/28/18 11:20 14:00 Temperature 97.7 F Pulse Rate 85 Respiratory 20 20 Rate Respiratory Rate [Chest] Blood Pressure 116/72 O2 Sat by Pulse 99 Oximetry General appearance: Present: no acute distress, well-nourished - EENT Eyes: PERRL, EOM intact ENT: hearing intact, clear oral mucosa Ears: bilateral: normal - Neck Neck: supple, normal ROM - Respiratory Respiratory effort: normal Respiratory: bilateral: CTA - Breasts Breasts: normal - Cardiovascular Heart rate: 78 Rhythm: regular Heart Sounds: Present: S1 & S2. Absent: gallop, rub Extremities: no ischemia, pulses intact, No edema, normal color, Full ROM - Gastrointestinal General gastrointestinal: Present: soft, non-tender, non-distended, normal bowel sounds - Genitourinary Male genitourinary: normal - Integumentary Integumentary: clear, warm, dry - Musculoskeletal Musculoskeletal: 1, strength equal bilaterally - Neurologic Neurologic: moves all extremities - Psychiatric Psychiatric: memory intact, appropriate mood/affect, intact judgment & insight - Labs CBC & Chem 7: 12/29/18 04:20 12/29/18 04:19 Labs: Abnormal lab results 12/27/18 12/27/18 12/27/18 Range/Units 03:11 16:38 16:39 Hgb 6.6 L (11.8-15.2) gm/dl Hct 21.0 L (35.5-45.6) % POC Glucose 115 H (70-105) Crossmatch See Detail 12/27/18 12/27/18 12/28/18 Range/Units 19:54 20:53 11:21 Hgb 6.9 L (11.8-15.2) gm/dl Hct 21.9 L (35.5-45.6) % POC Glucose 168 H 126 H (70-105) Crossmatch
[2018-12-28] MEDS ORDERED: NON-FORMULARY (Oxycodone Hcl/Acetaminophen [Percocet 7.5/325 Mg] 1 EACH) PO PRN (17:01)
[2018-12-28] MEDS ORDERED: NON-FORMULARY (Omeprazole [Omeprazole] 20 MG) PO SCH (17:15)
[2018-12-28] MEDS ORDERED: ROXICODONE PO PRN (17:15)
[2018-12-28] MEDS ORDERED: PERCOCET 5/325 PO PRN (17:15)
[2018-12-28] MEDS ORDERED: ZANAFLEX PO PRN (17:30)
[2018-12-28] MEDS: DILAUDID IV SCH ×3 (18:24→23:03)
[2018-12-28] MEDS: LANOXIN PO SCH (18:25)
[2018-12-28] MEDS: PROTONIX PO SCH (18:26)
[2018-12-28] MEDS: NEURONTIN PO SCH (18:26)
[2018-12-28] MEDS ORDERED: NON-FORMULARY (Tizanidine Hcl [Zanaflex] 4 MG) PO SCH (22:00)
[2018-12-28] MEDS: ZESTRIL PO SCH (23:04)
[2018-12-28] MEDS: COREG PO SCH (23:04)
[2018-12-28] MEDS: K-DUR PO SCH (23:04)
[2018-12-28] MEDS: ZANAFLEX PO SCH (23:05)
[2018-12-28] MEDS: HumaLOG SUB-Q SCH (23:05)
[2018-12-28] MEDS: ZYLOPRIM PO SCH (23:05)
[2018-12-28] MEDS: LANTUS SUB-Q SCH (23:06)
[2018-12-29] MEDS: HumuLIN R SUB-Q SCH ×6 (01:14→21:13)
[2018-12-29] MEDS: DILAUDID IV SCH ×10 (01:51→23:20)
[2018-12-29 05:05] LABS: Basophils % (Auto) 0.4 % (0.0-1.8); Eosinophils % (Auto) 0.2 % (0.0-4.3); Hemoglobin 7.7 gm/dl (11.8-15.2); Lymphocytes # (Auto) 0.4 K/mm3 (1.2-5.4); Lymphocytes % (Auto) 3.4 % (13.4-35.0); Mean Corpuscular HGB Conc 32 % (32-34); Mean Corpuscular Volume 79 fl (84-94); Monocytes % (Auto) 9.1 % (0.0-7.3); Platelet Count 248 K/mm3 (140-440); Red Blood Count 3.06 M/mm3 (3.65-5.03); Red Cell Distribution Width 17.4 % (13.2-15.2)
[2018-12-29 05:26] LABS: BUN/Creatinine Ratio 14; Blood Urea Nitrogen 14 mg/dL (9-20); Hemolysis Index 3
[2018-12-29] MEDS: PROTONIX IV SCH ×2 (05:57→18:45)
[2018-12-29] MEDS: HumaLOG SUB-Q SCH ×4 (09:19→21:14)
--- NOTE | 2018-12-29 14:19 | Progress Note ---
Assessment and Plan - Patient Problems (1) Symptomatic anemia Current Visit: Yes Status: Acute Plan to address problem: Transfused 2 units of blood Improved (2) Chest pain Onset Date: ~03/06/17 Current Visit: Yes Status: Acute Qualifiers: Plan to address problem: Sec to esophagitis (3) Gastrointestinal bleeding Current Visit: Yes Status: Chronic Plan to address problem: Patient has Esophageal cancer Patient to follow-up at [facility] IV protonix (4) Insulin dependent diabetes mellitus Current Visit: Yes Status: Chronic Plan to address problem: Continue home insulin and coverage (5) Sleep apnea Current Visit: Yes Status: Chronic Qualifiers: Sleep apnea type: unspecified type Qualified Code(s): G47.30 - Sleep apnea, unspecified Plan to address problem: Continue CPAP machine (6) DVT prophylaxis Current Visit: Yes Status: Acute Plan to address problem: SCDs only and GI prophylaxis Subjective Date of service: 12/29/18 Principal diagnosis: symptomatic anemia, COPD Interval history: Persistent vomiting.Emesis bag in his hand.Hyperventilating. Objective - Constitutional Vitals: Vital Signs - 12hr 12/29/18 12/29/18 12/29/18 03:52 06:00 08:32 Temperature 98.3 F Pulse Rate 100 H 102 H 57 L Respiratory 16 20 Rate Blood Pressure 113/73 101/57 O2 Sat by Pulse 94 100 Oximetry 12/29/18 12/29/18 12/29/18 08:35 11:39 11:40 Temperature 97.7 F 97.8 F Pulse Rate 67 Respiratory 20 Rate Blood Pressure 103/73 O2 Sat by Pulse 98 Oximetry General appearance: Present: no acute distress, well-nourished - EENT Eyes: PERRL, EOM intact ENT: hearing intact, clear oral mucosa Ears: bilateral: normal - Neck Neck: supple, normal ROM - Respiratory Respiratory effort: normal Respiratory: bilateral: CTA - Breasts Breasts: normal - Cardiovascular Heart rate: 78 Rhythm: regular Heart Sounds: Present: S1 & S2. Absent: gallop, rub Extremities: pulses intact, No edema, normal color, Full ROM - Gastrointestinal General gastrointestinal: Present: soft, non-tender, non-distended, normal bowel sounds Localized gastrointestinal: tender: epigastric periumbilical - Genitourinary Male genitourinary: normal - Integumentary Integumentary: clear, warm, dry - Musculoskeletal Musculoskeletal: 1, strength equal bilaterally - Neurologic Neurologic: moves all extremities - Psychiatric Psychiatric: memory intact, appropriate mood/affect, intact judgment & insight - Allied health notes Allied health notes reviewed: nursing, case management - Labs CBC & Chem 7: 12/29/18 04:20 12/29/18 04:19 Labs: Abnormal lab results 12/27/18 12/28/18 12/28/18 Range/Units 03:11 11:21 17:42 RBC (3.65-5.03) M/mm3 Hgb (11.8-15.2) gm/dl Hct (35.5-45.6) % MCV (84-94) fl MCH (28-32) pg RDW (13.2-15.2) % Lymph % (Auto) (13.4-35.0) % [place] % (Auto) (0.0-7.3) % Lymph # (1.2-5.4) K/mm3 [place] # (0.0-0.8) K/mm3 Seg Neutrophils % (40.0-70.0) % Seg Neutrophils # (1.8-7.7) K/mm3 Sodium (137-145) mmol/L Chloride (98-107) mmol/L Glucose (75-100) mg/dL POC Glucose 126 H 124 H (70-105) Crossmatch See Detail 12/28/18 12/28/18 12/29/18 Range/Units 20:44 23:47 04:19 RBC (3.65-5.03) M/mm3 Hgb (11.8-15.2) gm/dl Hct (35.5-45.6) % MCV (84-94) fl MCH (28-32) pg RDW (13.2-15.2) % Lymph % (Auto) (13.4-35.0) % [place] % (Auto) (0.0-7.3) % Lymph # (1.2-5.4) K/mm3 [place] # (0.0-0.8) K/mm3 Seg Neutrophils % (40.0-70.0) % Seg Neutrophils # (1.8-7.7) K/mm3 Sodium 132 L (137-145) mmol/L Chloride 94.5 L (98-107) mmol/L Glucose 147 H (75-100) mg/dL POC Glucose 138 H 124 H (70-105) Crossmatch 12/29/18 12/29/18 12/29/18 Range/Units 04:20 06:23 11:42 RBC 3.06 L (3.65-5.03) M/mm3 Hgb 7.7 L (11.8-15.2) gm/dl Hct 24.0 L (35.5-45.6) % MCV 79 L (84-94) fl MCH 25 L (28-32) pg RDW 17.4 H (13.2-15.2) % Lymph % (Auto) 3.4 L (13.4-35.0) % [place] % (Auto) 9.1 H (0.0-7.3) % Lymph # 0.4 L (1.2-5.4) K/mm3 [place] # 1.0 H (0.0-0.8) K/mm3 Seg Neutrophils % 86.9 H (40.0-70.0) % Seg Neutrophils # 9.2 H (1.8-7.7) K/mm3 Sodium (137-145) mmol/L Chloride (98-107) mmol/L Glucose (75-100) mg/dL POC Glucose 142 H 124 H (70-105) Crossmatch
[2018-12-29] MEDS ORDERED: PHENERGAN PR PRN (14:20)
[2018-12-29] MEDS: ZOFRAN IV PRN ×2 (15:16→22:17)
[2018-12-29] MEDS: LANOXIN PO SCH (16:50)
[2018-12-29] MEDS: PROTONIX PO SCH (16:50)
[2018-12-29] MEDS: MAG-OX PO SCH (16:50)
[2018-12-29] MEDS: COREG PO SCH ×2 (16:50→21:13)
[2018-12-29] MEDS: DEMADEX PO SCH (16:50)
[2018-12-29] MEDS: K-DUR PO SCH ×2 (16:50→22:17)
[2018-12-29] MEDS: NEURONTIN PO SCH (16:50)
[2018-12-29] MEDS: ZANAFLEX PO SCH ×2 (16:51→22:18)
[2018-12-29] MEDS: ZESTRIL PO SCH ×2 (16:51→22:18)
[2018-12-29] MEDS: ZYLOPRIM PO SCH ×2 (16:51→22:18)
[2018-12-29] MEDS: LANTUS SUB-Q SCH (21:14)
[2018-12-30] MEDS: DILAUDID IV SCH ×12 (01:04→23:05)
[2018-12-30] MEDS: HumuLIN R SUB-Q SCH ×6 (02:57→21:39)
[2018-12-30 06:01] LABS: Basophils # (Auto) 0.1 K/mm3 (0.0-0.1); Basophils % (Auto) 0.6 % (0.0-1.8); Eosinophils # (Auto) 0.2 K/mm3 (0.0-0.4); Eosinophils % (Auto) 2.2 % (0.0-4.3); Hematocrit 21.6 % (35.5-45.6); Hemoglobin 6.9 gm/dl (11.8-15.2); Lymphocytes # (Auto) 0.6 K/mm3 (1.2-5.4); Lymphocytes % (Auto) 6.2 % (13.4-35.0); Mean Corpuscular HGB Conc 32 % (32-34); Mean Corpuscular Volume 78 fl (84-94); Monocytes # (Auto) 0.9 K/mm3 (0.0-0.8); Monocytes % (Auto) 9.9 % (0.0-7.3); Platelet Count 204 K/mm3 (140-440); Red Blood Count 2.76 M/mm3 (3.65-5.03); Red Cell Distribution Width 17.2 % (13.2-15.2)
[2018-12-30 06:28] LABS: Alanine Aminotransferase 126 units/L (7-56); Albumin 3.1 g/dL (3.9-5); BUN/Creatinine Ratio 15; Blood Urea Nitrogen 18 mg/dL (9-20); Calcium 8.9 mg/dL (8.4-10.2); Hemolysis Index 2
[2018-12-30] MEDS: PROTONIX IV SCH (06:44)
--- NOTE | 2018-12-30 07:40 | Progress Note ---
Assessment and Plan Patient Problems - Symptomatic anemia Current Visit: Yes Status: Acute Plan to address problem: Transfused 2 more units of blood -Chest pain Onset Date: ~03/06/17 Current Visit: Yes Status: Acute Qualifiers: Plan to address problem: Sec to esophagitis - Gastrointestinal bleeding Current Visit: Yes Status: Chronic Plan to address problem: Patient has Esophageal cancer Patient to follow-up at [facility] IV protonix - Abnormal liver enzymes with hyperbilirubinemia CT scan of the abdomen and pelvis showed no evidence of biliary obstruction IV hydration and treatment enzymes GI consult - Insulin dependent diabetes mellitus Current Visit: Yes Status: Chronic Plan to address problem: Continue home insulin and coverage - History of esophageal cancer Continue to follow up with oncologist on [place] IV Protonix Feeding tube in place - Sleep apnea Current Visit: Yes Status: Chronic Qualifiers: Sleep apnea type: unspecified type Qualified Code(s): G47.30 - Sleep apnea, unspecified Plan to address problem: Continue CPAP machine (6) DVT prophylaxis Current Visit: Yes Status: Acute Plan to address problem: SCDs only and GI prophylaxis - Time spent: 35 minutes. Subjective Date of service: 12/30/18 Principal diagnosis: symptomatic anemia, COPD, vomiting Interval history: Pt seen and examined. Objective - Exam Narrative Exam: Constitutional: Well-nourished well-developed. In no distress Head: Normocephalic atraumatic Eyes: Conjunctiva palor. Pupils are equal round and reactive to light Nose: No enlarged turbinates, no septal deviation. Mouth: Moist mucous membranes. Neck: Supple no thyromegaly. No bruit. No JVD Heart: Regular rate and rhythm, S1-S2 normal. No rubs murmurs or gallop Lungs: Clear to auscultation bilaterally. no rales or rhonchi Abdomen: Feeding tube in place. Soft, nontender. Bowel sound are present. Extremities: No edema, no cyanosis, no clubbing. Neuro: Alert oriented Oriented x3. No focal sensory or motor deficit. Skin: No rashes or hyperpigmented spots Musculoskeletal system: No joint pain or swelling Hematological: No petechia or subcutanous hemorrhages. Immunological: No multiple septic spots on the skin Lymphatic: No generalized lymphadenopathy Psychiatry: Euthymic. Calm. - Constitutional Vitals: Vital Signs - 12hr 12/29/18 12/29/18 12/30/18 20:02 23:51 03:00 Temperature 97.5 F L 97.4 F L Pulse Rate 85 76 84 Respiratory 12 19 Rate Blood Pressure 107/70 100/63 O2 Sat by Pulse 96 96 Oximetry 12/30/18 12/30/18 04:32 05:00 Temperature 97.5 F L Pulse Rate 79 Respiratory 19 Rate Blood Pressure 107/70 O2 Sat by Pulse 98 Oximetry - Labs CBC & Chem 7: 12/30/18 04:35 12/30/18 04:35 Labs: Abnormal lab results 12/29/18 12/29/18 12/29/18 Range/Units 11:42 16:17 20:31 RBC (3.65-5.03) M/mm3 Hgb (11.8-15.2) gm/dl Hct (35.5-45.6) % MCV (84-94) fl MCH (28-32) pg RDW (13.2-15.2) % Lymph % (Auto) (13.4-35.0) % [place] % (Auto) (0.0-7.3) % Lymph # (1.2-5.4) K/mm3 [place] # (0.0-0.8) K/mm3 Seg Neutrophils % (40.0-70.0) % Sodium (137-145) mmol/L Chloride (98-107) mmol/L Glucose (75-100) mg/dL POC Glucose 124 H 138 H 140 H (70-105) Total Bilirubin (0.1-1.2) mg/dL AST (5-40) units/L ALT (7-56) units/L Albumin (3.9-5) g/dL 12/29/18 12/30/18 12/30/18 Range/Units 23:57 04:35 04:35 RBC 2.76 L (3.65-5.03) M/mm3 Hgb 6.9 L (11.8-15.2) gm/dl Hct 21.6 L (35.5-45.6) % MCV 78 L (84-94) fl MCH 25 L (28-32) pg RDW 17.2 H (13.2-15.2) % Lymph % (Auto) 6.2 L (13.4-35.0) % [place] % (Auto) 9.9 H (0.0-7.3) % Lymph # 0.6 L (1.2-5.4) K/mm3 [place] # 0.9 H (0.0-0.8) K/mm3 Seg Neutrophils % 81.1 H (40.0-70.0) % Sodium 131 L (137-145) mmol/L Chloride 91.8 L (98-107) mmol/L Glucose 135 H (75-100) mg/dL POC Glucose 172 H (70-105) Total Bilirubin 2.50 H (0.1-1.2) mg/dL AST 189 H (5-40) units/L ALT 126 H (7-56) units/L Albumin 3.1 L (3.9-5) g/dL
[2018-12-30] MEDS ORDERED: NACL 0.9% 500 ML 500 ML IV NR (08:00)
[2018-12-30] MEDS: MAG-OX PO SCH (09:25)
[2018-12-30] MEDS: NEURONTIN PO SCH (09:26)
[2018-12-30] MEDS: ZYLOPRIM PO SCH ×2 (09:26→21:37)
[2018-12-30] MEDS: ZANAFLEX PO SCH ×2 (09:26→21:38)
[2018-12-30] MEDS: DEMADEX PO SCH (09:26)
[2018-12-30] MEDS: ZESTRIL PO SCH ×2 (09:26→21:41)
[2018-12-30] MEDS: COREG PO SCH ×2 (09:26→21:39)
[2018-12-30] MEDS: K-DUR PO SCH ×2 (09:27→21:37)
[2018-12-30] MEDS: PROTONIX PO SCH (09:27)
[2018-12-30] MEDS: LANOXIN PO SCH (09:27)
[2018-12-30] MEDS: HumaLOG SUB-Q SCH ×4 (09:33→21:40)
--- NOTE | 2018-12-30 11:21 | Gastroenterology Consultation ---
History of Present Illness - Reason for Consult Consult date: 12/30/18 GI bleed, elevated LFTs Requesting physician: MERLENE FLEMING - History of Present Illness Patient is a 47 y/o male who is previously known to our service on whom I have been consulted for a possible GI bleed and abnormal LFTs. He was recently diagnosed with esophageal cancer s/p EGD on 11/07/18 (followed by surgical oncologist at [facility] with radiation recently initiated; no chemo at this time; s/p PEG at [facility] 12/05/18) with associated chronic symptoms of substernal CP/abd pain, N/V, and anemia to which he was admitted (multiple previous hospitalizations for similar symptoms). This morning patient was resting in bed w/o acute distress. Reports vomiting up coffee-ground emesis upon admission, w hich has now resolved. No hematemesis, melena, or hematochezia. Has continued N/V with emesis bilious in color this am. Admits to CP/abd pain that is unchanged from prior hospitalizations. C/o his PEG tube not working correctly. States he is able to flush PEG w/o difficulty but is unable to draw back residual but is currently refusing assessment of G-tube here and wants it to be evaluated upon f/u at [facility]. G-tube study on 12/11/18 confirmed PEG placement along with abd CT this admission. Denies fever, SOB, or LGI symptoms. No hx or Fhx of liver disease, however there was a question of esophageal varices upon EGD 09/2018 thought to be possibly 2/2 portal hypertension, but LFTs were normal at that time along with liver being normal on imaging (CT). No alcohol use or IV drug use. PMH significant for nonischemic cardiomyopathy (EF 10-15%), PE, [place], VT/VF (s/p AICD), paroxysmal Afib (s/p cardioversion), severe pulmonary hypertension, HTN, DM, sleep apnea, chronic obstructive pulmonary disease, obesity, and PE (on Xarelto at home). Past History Past Medical History: other (as per HPI) Past Surgical History: cholecystectomy, Other (cardioversion 11/2017, s/p AICD, EGD 09/2018 with esophageal banding; EGD 11/07/18, s/p PEG, hip surgery?, s/p port placement) Social history: other (former smoker) Medications and Allergies Allergies Allergy/AdvReac Type Severity Reaction Status Date / Time cephalexin monohydrate AdvReac Shakes Verified 12/23/18 14:22 [From Keflex] lidocaine AdvReac "Skin Verified 12/23/18 14:22 Yellowing" mushrooms Allergy Anaphylaxis Uncoded 12/23/18 14:22 Home Medications Medication Instructions Recorded Confirmed Last Taken Type Magnesium Oxide 400 mg PO DAILY 08/31/16 12/27/18 12/26/18 History Carvedilol [Coreg] 25 mg PO BID #60 tablet 06/10/17 12/27/18 12/26/18 Rx Torsemide [Demadex] 100 mg PO QDAY #30 tablet 10/19/17 12/27/18 12/26/18 Rx Insulin Glargine,Hum.rec.anlog 20 unit SQ HS 09/29/18 12/27/18 12/26/18 History [Lantus] Allopurinol [Zyloprim] 100 mg PO BID tablet 11/20/18 12/27/18 12/26/18 Rx Ferrous Sulfate [Feosol 325 MG tab] 325 mg PO BID tablet 11/20/18 12/27/18 12/26/18 Rx Lisinopril [Zestril TAB] 2.5 mg PO BID tablet 11/20/18 12/27/18 12/26/18 Rx Digoxin [Lanoxin] 0.125 mg PO DAILY 12/10/18 12/27/18 12/26/18 History Gabapentin [Neurontin] 300 mg PO DAILY 12/10/18 12/27/18 12/26/18 History Omeprazole 20 mg PO DAILY 12/10/18 12/27/18 12/26/18 History glipiZIDE [Glipizide] 10 mg PO DAILY 12/10/18 12/27/18 12/26/18 History Aspirin [Aspirin BABY CHEW TAB] 81 mg PO QDAY 12/20/18 12/27/18 12/26/18 History Potassium Chloride [Klor-Con M20] 20 meq PO BID 12/20/18 12/27/18 12/26/18 History Tizanidine HCl [Zanaflex] 4 mg PO BID 12/23/18 12/27/18 12/26/18 History Oxycodone HCl/Acetaminophen 1 each PO Q6HR PRN #20 tablet 12/24/18 12/27/18 12/26/18 Rx [Percocet 7.5/325 mg] Active Meds: Active Medications Allopurinol (Zyloprim) 100 mg PO BID [facility] Last Admin: 12/30/18 09:26 Dose: 100 mg Documented by: Carvedilol (Coreg) 25 mg PO BID [facility] Last Admin: 12/30/18 09:26 Dose: 25 mg Documented by: Dextrose (D50w (25gm) Syringe) 50 ml IV PRN PRN PRN Reason: Hypoglycemia Digoxin (Lanoxin) 0.125 mg PO DAILY [facility] Last Admin: 12/30/18 09:27 Dose: 0.125 mg Documented by: Gabapentin (Neurontin) 300 mg PO DAILY [facility] Last Admin: 12/30/18 09:26 Dose: 300 mg Documented by: Hydromorphone HCl (Dilaudid) 1 mg IV Q2H [facility] Last Admin: 12/30/18 09:22 Dose: 1 mg Documented by: Sodium Chloride (Nacl 0.9% 500 Ml) 500 mls @ 0 mls/hr IV ONCE NR Stop: 12/30/18 16:00 Insulin Glargine (Lantus) 20 units SUB-Q HS [facility] Last Admin: 12/29/18 21:14 Dose: Not Given Documented by: Insulin Human Lispro (Humalog) 0 unit SUB-Q ACHS [facility]; Protocol Last Admin: 12/30/18 09:33 Dose: Not Given Documented by: Insulin Human Regular (Humulin R) 0 units SUB-Q Q4H [facility]; Protocol Last Admin: 12/30/18 09:33 Dose: Not Given Documented by: Lisinopril (Zestril) 2.5 mg PO BID [facility] Last Admin: 12/30/18 09:26 Dose: 2.5 mg Documented by: Magnesium Oxide (Mag-Ox) 400 mg PO DAILY [facility] Last Admin: 12/30/18 09:25 Dose: 400 mg Documented by: Ondansetron HCl (Zofran) 4 mg IV Q8H PRN PRN Reason: Nausea And Vomiting Last Admin: 12/29/18 22:17 Dose: 4 mg Documented by: Oxycodone HCl (Roxicodone) 2.5 mg PO Q6H PRN PRN Reason: Pain, Moderate (4-6) Oxycodone/Acetaminophen (Percocet 5/325) 1 tab PO Q6H PRN PRN Reason: Pain, Moderate (4-6) Pantoprazole Sodium (Protonix) 40 mg IV Q12H [facility] Last Admin: 12/30/18 06:44 Dose: 40 mg Documented by: Pantoprazole Sodium (Protonix) 20 mg PO QDAY [facility] Last Admin: 12/30/18 09:27 Dose: 20 mg Documented by: Potassium Chloride (K-Dur) 20 meq PO BID [facility] Last Admin: 12/30/18 09:27 Dose: 20 meq Documented by: Promethazine HCl (Phenergan) 25 mg NV Q6H PRN PRN Reason: N/V IF NPO AND NO IV ACCESS Tizanidine HCl (Zanaflex) 4 mg PO BID [facility] Last Admin: 12/30/18 09:26 Dose: 4 mg Documented by: Torsemide (Demadex) 100 mg PO QDAY [facility] Last Admin: 12/30/18 09:26 Dose: 100 mg Documented by: medications reviewed/updated as required Review of Systems - Review of Systems All systems: negative Cardiovascular: chest pain Gastrointestinal: abdominal pain, nausea, vomiting, coffee ground emesis Exam - Constitutional Vital Signs: Temp Pulse Resp BP Pulse Ox 97.9 F 81 20 100/65 97 12/30/18 10:55 12/30/18 10:55 12/30/18 10:55 12/30/18 10:55 12/30/18 10:55 General appearance: no acute distress - Respiratory Respiratory: bilateral: diminished - Cardiovascular Rhythm: regular - Gastrointestinal General gastrointestinal: Present: soft, tender (mild generalized TTP), non- distended, normal bowel sounds, other (+PEG) - Neurologic Neurological: alert and oriented x3 - Labs CBC & Chem 7: 12/30/18 04:35 12/30/18 04:35 Lab Results: Laboratory Results - last 24 hr 12/29/18 12/29/18 12/29/18 11:42 16:17 20:31 WBC RBC Hgb Hct MCV MCH MCHC RDW Plt Count Lymph % (Auto) [place] % (Auto) Eos % (Auto) Baso % (Auto) Lymph # [place] # Eos # Baso # Seg Neutrophils % Seg Neutrophils # Sodium Potassium Chloride Carbon Dioxide Anion Gap BUN Creatinine Estimated GFR BUN/Creatinine Ratio Glucose POC Glucose 124 H 138 H 140 H Calcium Total Bilirubin AST ALT Alkaline Phosphatase Total Protein Albumin Albumin/Globulin Ratio Blood Type Antibody Screen Crossmatch 12/29/18 12/30/18 12/30/18 23:57 04:35 04:35 WBC 9.5 RBC 2.76 L Hgb 6.9 L Hct 21.6 L MCV 78 L MCH 25 L MCHC 32 RDW 17.2 H Plt Count 204 Lymph % (Auto) 6.2 L [place] % (Auto) 9.9 H Eos % (Auto) 2.2 Baso % (Auto) 0.6 Lymph # 0.6 L [place] # 0.9 H Eos # 0.2 Baso # 0.1 Seg Neutrophils % 81.1 H Seg Neutrophils # 7.7 Sodium 131 L Potassium 4.4 Chloride 91.8 L Carbon Dioxide 24 Anion Gap 20 BUN 18 Creatinine 1.2 Estimated GFR > 60 BUN/Creatinine Ratio 15 Glucose 135 H POC Glucose 172 H Calcium 8.9 Total Bilirubin 2.50 H AST 189 H ALT 126 H Alkaline Phosphatase 57 Total Protein 6.3 Albumin 3.1 L Albumin/Globulin Ratio 1.0 Blood Type Antibody Screen Crossmatch 12/30/18 08:07 WBC RBC Hgb Hct MCV MCH MCHC RDW Plt Count Lymph % (Auto) [place] % (Auto) Eos % (Auto) Baso % (Auto) Lymph # [place] # Eos # Baso # Seg Neutrophils % Seg Neutrophils # Sodium Potassium Chloride Carbon Dioxide Anion Gap BUN Creatinine Estimated GFR BUN/Creatinine Ratio Glucose POC Glucose Calcium Total Bilirubin AST ALT Alkaline Phosphatase Total Protein Albumin Albumin/Globulin Ratio Blood Type O POSITIVE Antibody Screen Negative Crossmatch See Detail Assessment and Plan 1.GI bleed/coffee-ground emesis 2.esophageal cancer -stool occult positive -H/H 6.921.6-transfusion PRBCs pending -continue to monitor and transfuse as needed -reports CGE upon admission which has now resolved with no active signs of bleeding overnight or this am -EGD 10/11/18 revealed 2-3 columns of large distal esophageal varices (2/2 portal htn; no hx of liver disease-LFTs WNL and liver normal on CT) with overlying blood clots and ulceration with active bleeding (banded x 3)- underlying mass lesion unable to be excluded to due inadequate visualization -repeat EGD 11/07/18 revealed an ulcerated friable circumferential mass from 37 cm to 43 cm at the GE junction surrounding about 75% of the circumference. No obvious signs of esophageal varices -path results confirmed poorly differentiated carcinoma- currently being following by surgical oncologist at [facility] -etiology-most likely 2/2 esophageal cancer -recommend conservative management with no plan to scope at this time -continue PPI and supportive care -will need f/u at [facility] upon discharge 3.elevated LFTs -LFTs WNL on prior hospitalization 12/11/18- now T.ebonie 2.50, AST 189, ALT 126, alk phos 57 -Liver normal on CT with no evidence of biliary obstruction -etiology unclear -will order acute hepatitis panel and abd U/S for further evaluation -will follow 4.malfunctioning PEG? -s/p PEG placement 12/05/18 at [facility] -PEG site w/o s/s of infection or bleeding -CT on admission confirmed position along with G-tube study on 12/11/18 -patient wishes for PEG to be evaluated upon f/u at [facility] and refusing evaluation at this time
[2018-12-30] MEDS: LANTUS SUB-Q SCH (21:40)
[2018-12-30] MEDS: PREVACID SOLUTAB FEEDTUBE SCH (21:41)
[2018-12-31] MEDS: DILAUDID IV SCH ×6 (00:57→11:12)
[2018-12-31] MEDS: HumuLIN R SUB-Q SCH ×6 (01:37→21:09)
[2018-12-31 06:00] LABS: Basophils % (Auto) 0.4 % (0.0-1.8); Eosinophils # (Auto) 0.2 K/mm3 (0.0-0.4); Eosinophils % (Auto) 1.6 % (0.0-4.3); Hematocrit 24.9 % (35.5-45.6); Hemoglobin 7.9 gm/dl (11.8-15.2); Lymphocytes # (Auto) 0.6 K/mm3 (1.2-5.4); Lymphocytes % (Auto) 6.2 % (13.4-35.0); Mean Corpuscular HGB Conc 32 % (32-34); Mean Corpuscular Volume 79 fl (84-94); Monocytes # (Auto) 1.1 K/mm3 (0.0-0.8); Monocytes % (Auto) 11.1 % (0.0-7.3); Platelet Count 178 K/mm3 (140-440); Red Blood Count 3.14 M/mm3 (3.65-5.03); Red Cell Distribution Width 18.1 % (13.2-15.2)
[2018-12-31 06:08] LABS: INR 1.39 (0.87-1.13)
[2018-12-31 06:51] LABS: Hepatitis B Surface Antigen Non-Reactive (Negative); Hepatitis C Virus Antibody Non-Reactive (NonReactive)
[2018-12-31 06:52] LABS: Alanine Aminotransferase 175 units/L (7-56); Albumin 3.4 g/dL (3.9-5); BUN/Creatinine Ratio 17; Blood Urea Nitrogen 19 mg/dL (9-20); Hemolysis Index 2
[2018-12-31] MEDS: HumaLOG SUB-Q SCH ×4 (07:29→22:29)
[2018-12-31 08:06] LABS: Calcium 8.5 mg/dL (8.4-10.2)
[2018-12-31] MEDS: MAG-OX PO SCH (09:10)
[2018-12-31] MEDS: ZYLOPRIM PO SCH ×2 (09:10→21:02)
[2018-12-31] MEDS: NEURONTIN PO SCH (09:10)
[2018-12-31] MEDS: ZESTRIL PO SCH ×2 (09:10→22:00)
[2018-12-31] MEDS: ZANAFLEX PO SCH ×2 (09:11→21:02)
[2018-12-31] MEDS: LANOXIN PO SCH (09:11)
[2018-12-31] MEDS: PREVACID SOLUTAB FEEDTUBE SCH ×2 (09:12→21:03)
[2018-12-31] MEDS: COREG PO SCH ×2 (09:12→22:00)
[2018-12-31] MEDS: K-DUR PO SCH ×2 (09:12→21:03)
[2018-12-31] MEDS: DEMADEX PO SCH (09:12)
--- NOTE | 2018-12-31 12:45 | Gastroenterology Progress Note ---
Assessment and Plan 1.GI bleed/coffee-ground emesis 2.esophageal cancer -stool occult positive -H/H 7.9/24.9-s/p transfusion PRBCs -continue to monitor and transfuse as needed -no active signs of bleeding overnight or this am -EGD 10/11/18 revealed 2-3 columns of large distal esophageal varices (2/2 portal htn; no hx of liver disease-LFTs WNL and liver normal on CT) with overlying blood clots and ulceration with active bleeding (banded x 3)- underlying mass lesion unable to be excluded to due inadequate visualization -repeat EGD 11/07/18 revealed an ulcerated friable circumferential mass from 37 cm to 43 cm at the GE junction surrounding about 75% of the circumference. No obvious signs of esophageal varices -path results confirmed poorly differentiated carcinoma- currently being following by surgical oncologist at [facility] -etiology-most likely 2/2 esophageal cancer -recommend conservative management with no plan to scope at this time -continue PPI and supportive care -will need f/u at [place] upon discharge 3.elevated LFTs -LFTs WNL on prior hospitalization 12/11/18- now trending up ([place] 4.00, AST 187, ALT 175, alk phos 62) -acute hepatitis panel negative -Liver normal on CT with no evidence of biliary obstruction -etiology unclear -abd U/S pending for today -further recommendations to follow 4.malfunctioning PEG? -s/p PEG placement 12/05/18 at [place] -PEG site w/o s/s of infection or bleeding -CT on admission confirmed position along with G-tube study on 12/11/18 -patient wishes for PEG to be evaluated upon f/u at [place] and refusing evaluation at this time Subjective Date of service: 12/31/18 Principal diagnosis: GI bleed, elevated LFTs Interval history: No acute distress. No active signs of bleeding. Reports continued CP/abd pain/vomiting. Objective - Constitutional Vitals: Temp Pulse Resp BP Pulse Ox 98.6 F 69 20 102/60 97 12/31/18 12:08 12/31/18 12:08 12/31/18 12:08 12/31/18 12:08 12/31/18 12:08 General appearance: no acute distress - Respiratory Respiratory: bilateral: diminished - Cardiovascular Rhythm: regular - Gastrointestinal General gastrointestinal: Present: soft, tender (mild generalized TTP), non- distended, normal bowel sounds, other (+PEG) - Labs CBC & Chem 7: 12/31/18 05:18 12/31/18 05:18 Labs: Laboratory Results - last 24 hr 12/27/18 12/30/18 12/31/18 03:11 08:07 05:18 WBC 9.9 RBC 3.14 L Hgb 7.9 L Hct 24.9 L MCV 79 L MCH 25 L MCHC 32 RDW 18.1 H Plt Count 178 Lymph % (Auto) 6.2 L [place] % (Auto) 11.1 H Eos % (Auto) 1.6 Baso % (Auto) 0.4 Lymph # 0.6 L [place] # 1.1 H Eos # 0.2 Baso # 0.0 Seg Neutrophils % 80.7 H Seg Neutrophils # 8.0 H PT INR Sodium Potassium Chloride Carbon Dioxide Anion Gap BUN Creatinine Estimated GFR BUN/Creatinine Ratio Glucose Calcium Total Bilirubin AST ALT Alkaline Phosphatase Total Protein Albumin Albumin/Globulin Ratio Hepatitis A IgM Ab Hep Bs Antigen Hep B Core IgM Ab Hepatitis C Antibody Blood Type O POSITIVE Antibody Screen Negative Crossmatch See Detail See Detail 12/31/18 12/31/18 12/31/18 05:18 05:18 05:18 WBC RBC Hgb Hct MCV MCH MCHC RDW Plt Count Lymph % (Auto) [place] % (Auto) Eos % (Auto) Baso % (Auto) Lymph # [place] # Eos # Baso # Seg Neutrophils % Seg Neutrophils # PT 18.0 H INR 1.39 H Sodium 131 L Potassium 4.1 Chloride 90.8 L Carbon Dioxide 23 Anion Gap 21 BUN 19 Creatinine 1.1 Estimated GFR > 60 BUN/Creatinine Ratio 17 Glucose 118 H Calcium 8.5 Total Bilirubin 4.00 H AST 187 H ALT 175 H Alkaline Phosphatase 62 Total Protein 6.4 Albumin 3.4 L Albumin/Globulin Ratio 1.1 Hepatitis A IgM Ab Non-reactive Hep Bs Antigen Non-reactive Hep B Core IgM Ab Non-reactive Hepatitis C Antibody Non-reactive Blood Type Antibody Screen Crossmatch
--- NOTE | 2018-12-31 13:45 | Ultrasound Report ---
ULTRASOUND ABDOMEN COMPLETE: TECHNIQUE: Transabdominal ultrasound with color Doppler interrogation. HISTORY: Elevated LFTs. COMPARISON: CT abdomen pelvis without contrast dated 12/27/18. FINDINGS: LIVER: Within normal limits. BILIARY SYSTEM: Cholecystectomy. The CBD measures 3.2 mm. PANCREAS: Normal. SPLEEN: Normal. KIDNEYS: Both kidneys demonstrate increased cortical echotexture consistent with nonspecific renal parenchymal disease. A 2.3 cm simple cyst in the left superior kidney is noted. No evidence for mass, calculus or hydronephrosis. AORTA/IVC: Normal. ASCITES: None. IMPRESSION: Unremarkable liver and biliary system. Nonspecific renal parenchymal disease. Left renal cyst.
--- NOTE | 2018-12-31 13:56 | Progress Note ---
Assessment and Plan Assessment and plan: - Symptomatic anemia Status post transfusion hemoglobin currently 7.9 Transfuse if hemoglobin is below 7. -Chest pain Sec to esophagitis, esophageal cancer - Gastrointestinal bleeding: Patient has Esophageal cancer Patient to follow-up at [facility] IV protonix, transfusion as needed - Abnormal liver enzymes with hyperbilirubinemia CT scan of the abdomen and pelvis showed no evidence of biliary obstruction IV hydration and treatment enzymes GI consulted and ordered right upper quadrant ultrasound, will follow GI recommendation - Insulin dependent diabetes mellitus Continue home insulin and coverage - History of esophageal cancer Patient is on radiation therapy at [place] Follow with Dr. Gooden, patient has port-cath but chemo is not started - Sleep apnea Continue CPAP machine -Obesity Patient has significant weight loss from previous admission Nutrition - PEG tube - Patient's complaining make him nauseated and patient is not eating, that is the reason for weight loss DVT prophylaxis SCDs only and GI prophylaxis History Interval history: Patient is seen and evaluated this morning, patient's complaining epigastric discomfort from the PEG tube. Patient lost significant amount of weight. Hospitalist Physical - Physical exam Narrative exam: Not in cardiopulmonary distress. The patient is obese, but with marked improvement from his previous BMI. Vital signs as documented. Head exam is unremarkable. No scleral icterus . Neck is without jugular venous distension, thyromegaly, or carotid bruits. Lungs are clear to auscultation. Cardiac exam reveals regular rate and Rhythm. Abdominal exam reveals normal bowel sounds, PEG tube in place. Extremities are nonedematous and both femoral and pedal pulses are normal. [employer]: Alert and oriented 3. No focal weakness. - Constitutional Vitals: Temp Pulse Resp BP Pulse Ox 98.6 F 69 20 102/60 97 12/31/18 12:08 12/31/18 12:08 12/31/18 12:08 12/31/18 12:08 12/31/18 12:08 General appearance: Present: no acute distress, well-nourished Results - Labs CBC & Chem 7: 12/31/18 05:18 12/31/18 05:18 Labs: Laboratory Last Values WBC 9.9 K/mm3 (4.5-11.0) 12/31/18 05:18 RBC 3.14 M/mm3 (3.65-5.03) L 12/31/18 05:18 Hgb 7.9 gm/dl (11.8-15.2) L 12/31/18 05:18 Hct 24.9 % (35.5-45.6) L 12/31/18 05:18 MCV 79 fl (84-94) L 12/31/18 05:18 MCH 25 pg (28-32) L 12/31/18 05:18 MCHC 32 % (32-34) 12/31/18 05:18 RDW 18.1 % (13.2-15.2) H 12/31/18 05:18 Plt Count 178 K/mm3 (140-440) 12/31/18 05:18 Lymph % (Auto) 6.2 % (13.4-35.0) L 12/31/18 05:18 [place] % (Auto) 11.1 % (0.0-7.3) H 12/31/18 05:18 Eos % (Auto) 1.6 % (0.0-4.3) 12/31/18 05:18 Baso % (Auto) 0.4 % (0.0-1.8) 12/31/18 05:18 Lymph # 0.6 K/mm3 (1.2-5.4) L 12/31/18 05:18 [place] # 1.1 K/mm3 (0.0-0.8) H 12/31/18 05:18 Eos # 0.2 K/mm3 (0.0-0.4) 12/31/18 05:18 Baso # 0.0 K/mm3 (0.0-0.1) 12/31/18 05:18 Seg Neutrophils % 80.7 % (40.0-70.0) H 12/31/18 05:18 Seg Neutrophils # 8.0 K/mm3 (1.8-7.7) H 12/31/18 05:18 PT 18.0 Sec. (12.2-14.9) H 12/31/18 05:18 INR 1.39 (0.87-1.13) H 12/31/18 05:18 Sodium 131 mmol/L (137-145) L 12/31/18 05:18 Potassium 4.1 mmol/L (3.6-5.0) 12/31/18 05:18 Chloride 90.8 mmol/L (98-107) L 12/31/18 05:18 Carbon Dioxide 23 mmol/L (22-30) 12/31/18 05:18 Anion Gap 21 mmol/L 12/31/18 05:18 BUN 19 mg/dL (9-20) 12/31/18 05:18 Creatinine 1.1 mg/dL (0.8-1.5) 12/31/18 05:18 Estimated GFR > 60 ml/min 12/31/18 05:18 BUN/Creatinine Ratio 17 % 12/31/18 05:18 Glucose 118 mg/dL (75-100) H 12/31/18 05:18 POC Glucose 172 (70-105) H 12/29/18 23:57 Calcium 8.5 mg/dL (8.4-10.2) 12/31/18 05:18 Magnesium 1.70 mg/dL (1.7-2.3) 12/27/18 01:54 Total Bilirubin 4.00 mg/dL (0.1-1.2) H 12/31/18 05:18 AST 187 units/L (5-40) H 12/31/18 05:18 ALT 175 units/L (7-56) H 12/31/18 05:18 Alkaline Phosphatase 62 units/L (35-129) 12/31/18 05:18 Troponin T < 0.010 ng/mL (0.00-0.029) 12/27/18 03:11 Total Protein 6.4 g/dL (6.3-8.2) 12/31/18 05:18 Albumin 3.4 g/dL (3.9-5) L 12/31/18 05:18 Albumin/Globulin Ratio 1.1 % 12/31/18 05:18 Hepatitis A IgM Ab Non-reactive (NonReactive) 12/31/18 05:18 Hep Bs Antigen Non-reactive (Negative) 12/31/18 05:18 Hep B Core IgM Ab Non-reactive (NonReactive) 12/31/18 05:18 Hepatitis C Antibody Non-reactive (NonReactive) 12/31/18 05:18 Blood Type O POSITIVE 12/30/18 08:07 Antibody Screen Negative 12/30/18 08:07 Crossmatch See Detail 12/30/18 08:07 Nutrition/Malnutrition Assess - Dietary Evaluation Nutrition/Malnutrition Findings: Nutrition Notes Start: 12/27/18 11:58 Freq: Status: Active Protocol: Document 12/30/18 13:59 RM (Rec: 12/30/18 14:09 RM [id number]) Nutrition Notes Initial or Follow up Reassessment Current Diagnosis Diabetes,Hypertension,Heart Failure Other Pertinent Diagnosis pulmonary embolism, GI bleed, esophageal cancer Current Diet Clear liquid Labs/Tests Reviewed Pertinent Medications Torsemide Height 6 ft Weight 117.4 kg [place] Body Weight (kg) 80.90 BMI 35.1 Subjective/Other Information Pt stated that he drinks all of his meals except for the beef broth because it makes him vomit. Noted preferences. Noted 4 containers of jello at bedside. Pt stated that he saves some of the jello for nighttime snack. Burn Absent Trauma Absent #1 Nutrition Diagnosis Malnutrition Diagnosis Progress(for reassessment Continues documentation) Is patient on ventilator? No Is Patient Ambulatory and/or Out of Bed Yes REE-(Arnett-St. Jeor-ambulatory/OOB) [ 2693.600 NUTR.[id number]] Kcal/Kg value to use for calculation 20 Approximate Energy Requirements Using 2348 kcal/Kg Calculation Used for Recommendations Kcal/kg Additional Notes Protein Needs: 81-121g (1-1.5g /kg, IBW) fluid: 1mL/kcal or per MD Nutrition Intervention Change Diet Order: TF when medically feasible Nutrition Support: TF recs: Osmolite 1.5 at 65mL/ hr. 200mL flush q4h or per MD Kcal 2,340 Protein (gm) 98 Fluid (mL) 1,189 Add Supplement/Snack (indicate name/kcal Ensure Clear 1 daily /protein ) Provides kCal: 240 Provides Protein (gm) 8 Goal #1 Diet advancement/TF consult Anticipated Discharge Needs: Unable to determine at this time Follow-Up By: 01/01/19 Additional Comments Follow for PO and ONS intakes
[2018-12-31] MEDS: DILAUDID IV PRN ×2 (14:44→17:56)
[2018-12-31] MEDS: NACL 0.9% 1000 ML 1,000 ML IV SCH ×2 (17:06→17:07)
[2018-12-31] MEDS: ZOFRAN IV PRN (17:06)
[2018-12-31] MEDS: LANTUS SUB-Q SCH (21:31)
[2019-01-01] MEDS: DILAUDID IV PRN ×6 (00:30→18:22)
[2019-01-01] MEDS: NACL 0.9% 1000 ML 1,000 ML IV SCH ×2 (00:37→06:51)
[2019-01-01] MEDS: HumuLIN R SUB-Q SCH ×2 (01:00→06:20)
[2019-01-01] MEDS: ZOFRAN IV PRN (03:11)
[2019-01-01 05:43] LABS: Basophils % (Auto) 0.3 % (0.0-1.8); Eosinophils # (Auto) 0.1 K/mm3 (0.0-0.4); Hematocrit 23.8 % (35.5-45.6); Hemoglobin 7.7 gm/dl (11.8-15.2); Lymphocytes # (Auto) 0.4 K/mm3 (1.2-5.4); Lymphocytes % (Auto) 4.7 % (13.4-35.0); Mean Corpuscular HGB Conc 32 % (32-34); Mean Corpuscular Volume 79 fl (84-94); Monocytes # (Auto) 1.1 K/mm3 (0.0-0.8); Platelet Count 163 K/mm3 (140-440)
[2019-01-01 06:10] LABS: Alanine Aminotransferase 126 units/L (7-56); Albumin 3.1 g/dL (3.9-5); BUN/Creatinine Ratio 14; Blood Urea Nitrogen 15 mg/dL (9-20); Calcium 8.2 mg/dL (8.4-10.2); Hemolysis Index 0
[2019-01-01] MEDS: HumaLOG SUB-Q SCH ×3 (08:50→18:22)
--- NOTE | 2019-01-01 10:22 | Discharge Summary ---
Providers - Providers Date of Admission: 12/27/18 04:33 Attending physician: LIT JAQUEZ MD 12/27/18 11:30 Consult to Case Management [CONS] Routine Services Needed at Discharge: Other Notified:: CHRISTIAN Was contact made?: Yes Additional Physician Instructions: rESUMPTION OF TUBE FEEDS WITH CORAM 12/30/18 07:46 Consult to Physician [CONS] Routine Comment: Consulting Provider: KUSHAL OLSON Physician Instructions: Reason For Exam: GI BLEED, abnormal liver enzymes Primary care physician: STONE MOSES Hospitalization Reason for admission: GI bleed, acute hepatitis Condition: Stable Pertinent studies: Abdominal U/s IMPRESSION: Unremarkable liver and biliary system. Nonspecific renal parenchymal disease. Left renal cyst. CT abdomen and pelvis CXR Hospital course: Patient is a 48 y/o male who was admitted many times for GI bleed. He was recently diagnosed with esophageal cancer s/p EGD on 11/07/18 (followed by surgical oncologist at [place] with radiation recently initiated; no chemo at this time; s/p PEG at [facility] 12/05/18) with associated chronic symptoms of substernal CP/abd pain, N/V, and anemia to which he was admitted (multiple previous hospitalizations for similar symptoms). patient's chest pain and abdominal pain unchanged from his previous conditions. C/o his PEG tube not working correctly. States he is able to flush PEG w/o difficulty but is unable to draw back residual but is currently refusing assessment of G-tube here and wants it to be evaluated upon f/u at [place]. G-tube study on 12/11/18 confirmed PEG placement along with abd CT this admission. Denies fever, SOB, or LGI symptoms. No hx or Fhx of liver disease, however there was a question of esophageal varices upon EGD 09/2018 thought to be possibly 2/2 portal hypertension, but LFTs were normal at that time along with liver being normal on imaging (CT). No alcohol use or IV drug use. PMH significant for nonischemic cardiomyopathy (EF 10-15%), PE, [place], VT/VF (s/p AICD), paroxysmal Afib (s/p cardioversion), severe pulmonary hypertension, HTN, DM, sleep apnea, chronic obstructive pulmonary disease, obesity, and PE (on Xarelto at home). Patient was admitted and blood transfusion was given and H/H was stable after that. Patient was evaluated with GI and recommend to give him IV fluids because his blood pressure was on the low side of normal. Patient was given IV fluids and transaminases level markedly improved and cleared by GI for discharge and discharged home. patient said he wants to discharge and continue his radiation treatment, and will follow at [place] and will follow with Dr Gooden in the office. patient has cancer and abdominal pain and bleeding may continue until his cancer is treated. patient said his PEG tube is not working well and he lost weight markedly. GI did imaging and PEG was in the right place. Patient doesn't want to be evaluated his PEG tube and wants to be evaluated at [place]. Disposition: DC-01 TO HOME OR SELFCARE Time spent for discharge: 34 minutes - Discharge Diagnoses (1) Symptomatic anemia Status: Acute (2) Anemia Status: Chronic Qualifiers: Anemia type: iron deficiency Iron deficiency anemia type: chronic blood loss Qualified Code(s): D50.0 - Iron deficiency anemia secondary to blood loss (chronic) (3) Dilated cardiomyopathy Status: Chronic (4) Gastrointestinal bleeding Status: Chronic (5) Insulin dependent diabetes mellitus Status: Chronic (6) Sleep apnea Status: Chronic Qualifiers: Sleep apnea type: unspecified type Qualified Code(s): G47.30 - Sleep apnea, unspecified (7) Acute hyperglycemia Status: Acute (8) Acute hypokalemia Status: Acute (9) Esophageal cancer Status: Acute (10) Gastrostomy tube dysfunction Status: Acute (11) Atrial fibrillation and flutter Status: Chronic (12) Cardiac defibrillator in place Status: Chronic Core Measure Documentation - Palliative Care Palliative Care/ Comfort Measures: Not Applicable - Core Measures Any of the following diagnoses?: none Exam - Physical Exam Narrative exam: Not in cardiopulmonary distress. The patient is obese, but with marked improvement from his previous BMI. Vital signs as documented. Head exam is unremarkable. No scleral icterus . Neck is without jugular venous distension, thyromegaly, or carotid bruits. Lungs are clear to auscultation. Cardiac exam reveals regular rate and Rhythm. Abdominal exam reveals normal bowel sounds, PEG tube in place. Extremities are nonedematous and both femoral and pedal pulses are normal. [employer]: Alert and oriented 3. No focal weakness. - Constitutional Vitals: Temp Pulse Resp BP Pulse Ox 97.9 F 69 18 98/51 98 01/01/19 07:56 01/01/19 07:56 01/01/19 07:56 01/01/19 07:56 01/01/19 07:56 Plan Activity: no restrictions Weight Bearing Status: Full Weight Bearing Diet: low salt, diabetic Additional Instructions: Patient is follow at [facility] and advised to continue there. Continue all scheduled appointments. Follow up with: PRIMARY CARE, [Referring] - 3-5 Days
[2019-01-01] MEDS: K-DUR PO SCH (11:14)
[2019-01-01] MEDS: PREVACID SOLUTAB FEEDTUBE SCH (11:14)
[2019-01-01] MEDS: MAG-OX PO SCH (11:14)
[2019-01-01] MEDS: NEURONTIN PO SCH (11:14)
[2019-01-01] MEDS: ZYLOPRIM PO SCH (11:15)
[2019-01-01] MEDS: ZANAFLEX PO SCH (11:15)
[2019-01-01] MEDS: COREG PO SCH (11:16)
[2019-01-01] MEDS: ZESTRIL PO SCH (11:16)
[2019-01-01] MEDS: DEMADEX PO SCH (11:17)
[2019-01-01] MEDS: LANOXIN PO SCH (11:18)
--- NOTE | 2019-01-01 14:04 | Gastroenterology Progress Note ---
Assessment and Plan 1.GI bleed/coffee-ground emesis 2.esophageal cancer -stool occult positive -H/H 7.7/23..8-stable -continue to monitor and transfuse as needed -no active signs of bleeding overnight or this am -EGD 10/11/18 revealed 2-3 columns of large distal esophageal varices (2/2 portal htn; no hx of liver disease-LFTs WNL and liver normal on CT) with overlying blood clots and ulceration with active bleeding (banded x 3)- underlying mass lesion unable to be excluded to due inadequate visualization -repeat EGD 11/07/18 revealed an ulcerated friable circumferential mass from 37 cm to 43 cm at the GE junction surrounding about 75% of the circumference. No obvious signs of esophageal varices -path results confirmed poorly differentiated carcinoma- currently being following by surgical oncologist at [facility] -etiology-most likely 2/2 esophageal cancer -recommend conservative management with no plan to scope at this time -continue PPI and supportive care 3.elevated LFTs -LFTs trending down ( -acute hepatitis panel negative -Liver normal on CT and U/S with no evidence of biliary obstruction -etiology unclear-likely 2/2 mild shock 2/2 hypotension vs other -correction of hypotension per primary team -no further workup recommended at this time per GI 4.malfunctioning PEG? -s/p PEG placement 12/05/18 at [place] -PEG site w/o s/s of infection or bleeding -CT on admission confirmed position along with G-tube study on 12/11/18 -okay to resume feeding per GI standpoint per nutrition recommendations if patient is agreeable -patient to f/u at [place] upon d/c -will sign off, please call if needed Subjective Date of service: 01/01/19 Principal diagnosis: GI bleed, elevated LFTs Interval history: No acute distress. No active signs of bleeding. Objective - Constitutional Vitals: Temp Pulse Resp BP Pulse Ox 98.1 F 71 18 94/48 96 01/01/19 11:31 01/01/19 11:31 01/01/19 11:31 01/01/19 11:31 01/01/19 11:31 General appearance: no acute distress - Respiratory Respiratory: bilateral: CTA - Cardiovascular Rhythm: regular - Gastrointestinal General gastrointestinal: Present: soft, non-distended, normal bowel sounds, other (+PEG) - Labs CBC & Chem 7: 01/01/19 04:28 01/01/19 04:28 Labs: Laboratory Results - last 24 hr 01/01/19 01/01/19 04:28 04:28 WBC 8.7 RBC 3.00 L Hgb 7.7 L Hct 23.8 L MCV 79 L MCH 26 L MCHC 32 RDW 18.0 H Plt Count 163 Lymph % (Auto) 4.7 L [place] % (Auto) 13.0 H Eos % (Auto) 1.0 Baso % (Auto) 0.3 Lymph # 0.4 L [place] # 1.1 H Eos # 0.1 Baso # 0.0 Seg Neutrophils % 81.0 H Seg Neutrophils # 7.1 Sodium 131 L Potassium 3.2 L D Chloride 92.9 L Carbon Dioxide 26 Anion Gap 15 BUN 15 Creatinine 1.1 Estimated GFR > 60 BUN/Creatinine Ratio 14 Glucose 136 H Calcium 8.2 L Total Bilirubin 2.50 H AST 68 H ALT 126 H Alkaline Phosphatase 56 Total Protein 6.2 L Albumin 3.1 L Albumin/Globulin Ratio 1.0
[2019-01-01 16:12] VITALS: BP 94/52
== END 2019-01-01 20:10 | disposition home or self-care (01) | DRG 393 ==
LOC: ED 01:20 → 4A 04:33
PROVIDERS: ADMIT Internal Medicine; ATTEND Internal Medicine
PROC: 30233N1 Transfusion of Nonautologous Red Blood Cells into Peripheral Vein, Percutaneous Approach (ICD-10-PCS; principal; 2018-12-27)
DX: K94.23 Gastrostomy malfunction (principal); I49.01 Ventricular fibrillation; C15.9 Malignant neoplasm of esophagus, unspecified; K20.9 Esophagitis, unspecified; K92.2 Gastrointestinal hemorrhage, unspecified; I42.0 Dilated cardiomyopathy; G47.30 Sleep apnea, unspecified; E87.6 Hypokalemia; M54.9 Dorsalgia, unspecified; G89.29 Other chronic pain; J44.9 Chronic obstructive pulmonary disease, unspecified; M19.90 Unspecified osteoarthritis, unspecified site; I27.20 Pulmonary hypertension, unspecified; I11.0 Hypertensive heart disease with heart failure; I50.9 Heart failure, unspecified; E80.6 Other disorders of bilirubin metabolism; E66.9 Obesity, unspecified; Y83.8 Other surgical procedures as the cause of abnormal reaction of the patient, or of later complication, without mention of misadventure at the time of the procedure; E11.65 Type 2 diabetes mellitus with hyperglycemia; D64.9 Anemia, unspecified; Z88.8 Allergy status to other drugs, medicaments and biological substances; Z95.810 Presence of automatic (implantable) cardiac defibrillator; Z79.4 Long term (current) use of insulin; Z79.82 Long term (current) use of aspirin; Z91.018 Allergy to other foods; Z86.718 Personal history of other venous thrombosis and embolism; Z86.711 Personal history of pulmonary embolism; Z87.891 Personal history of nicotine dependence; Z79.899 Other long term (current) drug therapy; Z68.35 Body mass index [BMI] 35.0-35.9, adult; Z71.3 Dietary counseling and surveillance
CPT/HCPCS: 36415; 71045; 74176; 76700; 80048; 80053; 80074; 82271; 82962; 83735; 84484; 85014; 85018; 85025; 85610; 86850; 86900; 86901; 86920; 93005; 93010; G0378; A9552; C9113; J1170; J1815; J2405; J3480; J7030; J7040; P9040

== ENCOUNTER 2019-01-03 20:07 | Inpatient (IN) | payer MEDICAID ==
[2019-01-03] MEDS ORDERED: DILAUDID IV ONE (20:44)
[2019-01-03] MEDS ORDERED: ZOFRAN ODT PO ONE (20:44)
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
[2019-01-03] MEDS ORDERED: ZOFRAN IV ONE (21:05)
[2019-01-03 21:44] LABS: Basophils # (Auto) 0.1 K/mm3 (0.0-0.1); Basophils % (Auto) 0.6 % (0.0-1.8); Eosinophils # (Auto) 0.1 K/mm3 (0.0-0.4); Eosinophils % (Auto) 0.5 % (0.0-4.3); Hematocrit 28.3 % (35.5-45.6); Hemoglobin 9.3 gm/dl (11.8-15.2); Lymphocytes # (Auto) 0.7 K/mm3 (1.2-5.4); Lymphocytes % (Auto) 6.8 % (13.4-35.0); Mean Corpuscular HGB Conc 33 % (32-34); Mean Corpuscular Volume 79 fl (84-94); Monocytes # (Auto) 1.2 K/mm3 (0.0-0.8); Monocytes % (Auto) 11.7 % (0.0-7.3); Platelet Count 236 K/mm3 (140-440); Red Blood Count 3.61 M/mm3 (3.65-5.03); Red Cell Distribution Width 18.6 % (13.2-15.2)
--- NOTE | 2019-01-03 21:49 | XRay Report ---
PROCEDURE: CHEST 1 VIEW TECHNIQUE: Chest radiograph AP projection. CPT 31805 HISTORY: Chest pain COMPARISONS: December 27, 2018 . FINDINGS: Heart: Cardiac size is upper limit of normal. Mediastinum/Vessels: Central pulmonary arteries are prominent. Lungs/Pleural space: Bilateral lungs and pleural spaces are clear.. Bony thorax: No acute osseous abnormality. A tripolar cardiac device is noted on the left side with its leads in place IMPRESSION: Prominent central pulmonary arteries as seen on the prior study may represent pulmonary arterial hypertension.. No acute pulmonary process This document is electronically signed by Tha Lujan MD., January 03 2019 09:47:38 PM ET
[2019-01-03 22:03] LABS: Alanine Aminotransferase 53 units/L (7-56); Albumin 3.2 g/dL (3.9-5); BUN/Creatinine Ratio 11; Blood Urea Nitrogen 10 mg/dL (9-20); Hemolysis Index 4
[2019-01-03] MEDS ORDERED: TYLENOL PO PRN (22:31)
[2019-01-04] MEDS: DILAUDID IV PRN ×7 (02:28→22:38)
--- NOTE | 2019-01-04 04:30 | History and Physical Report ---
CHIEF COMPLAINT: Chest pain. OTHER COMPLAINT: Includes shortness of breath. HISTORY OF PRESENT ILLNESS: The patient is a 48-year-old male, who was recently discharged from the hospital about 2 days prior to presentation and came again complaining about chest pain. The patient was noted to have told the physician before leaving 2 days prior to this presentation that he will be back in the hospital for persistent pain and nausea and he was noted to have said that Dilaudid is the only medication that works for him. He denies history of shortness of breath. There is no history of cough and no history of fever or chills. The patient also denies history of nausea or vomiting. PAST MEDICAL HISTORY: Pertinent for hypertension, congestive heart failure, diabetes mellitus, deep vein thrombosis, pulmonary embolism, renal insufficiency, arthritis, asthma, COPD, sleep apnea, anemia, severe pulmonary hypertension, atrial fibrillation that was treated with cardioversion in 11/2017. Also, the patient has past medical history of ventricular tachycardia and ventricular fibrillation and esophageal varices and also the patient has past history of esophageal cancer. PAST SURGICAL HISTORY: Pertinent for pacemaker placement, AICD placement, cholecystectomy, abdominal surgery with bands placed in the abdomen, gastrointestinal tube placement in the anterior abdominal wall on the left side. FAMILY HISTORY: Noncontributory. SOCIAL HISTORY: The patient does not smoke, does not drink alcohol and does not use illicit drugs. MEDICATIONS: The patient is on magnesium oxide 400 mg daily, carvedilol 25 mg by mouth daily, Lantus insulin 20 units subcutaneous at bedtime, allopurinol 100 mg by mouth twice daily, ferrous sulfate 325 mg by mouth twice daily, lisinopril 2.5 mg by mouth twice daily, digoxin 0.125 mg by mouth daily, gabapentin 300 mg by mouth daily, omeprazole 20 mg by mouth daily, glipizide 10 mg by mouth, aspirin 81 mg by mouth daily, potassium chloride, Klor-Con 20 mEq by mouth twice daily, Zanaflex 4 mg by mouth daily, oxycodone or Percocet 7.5/325 mg one by mouth every 6 hours as needed for pain. ALLERGIES: THE PATIENT IS ALLERGIC TO CEPHALEXIN, LIDOCAINE AND MUSHROOM. REVIEW OF SYSTEMS: CONSTITUTIONAL: There is no fever, no chills, no diaphoresis. HEENT: There is no headache or sore throat. CARDIOVASCULAR SYSTEM: Chest pain is present. No orthopnea. RESPIRATORY: Shortness of breath is present. There is no cough. GASTROINTESTINAL: Nausea is present. No vomiting, no abdominal pain, diarrhea or constipation. NEUROLOGICAL: There is no numbness, no dizziness, no altered mental status. MUSCULOSKELETAL: There is no joint pain or swelling. DERMATOLOGICAL SYSTEM: There is no skin rash or itching. GENITOURINARY SYSTEM: There is no dysuria, hematuria or flank pain. Rest of the system review is normal. PHYSICAL EXAMINATION: GENERAL: At the time of exam, the patient was found to be alert, oriented x 3 and not in acute distress. VITAL SIGNS: At the initial time of presentation showed temperature of 98.4 degrees Fahrenheit, pulse of 75, respirations 18, blood pressure 114/70 with the patient's O2 sats initially were running low in the 80s, but later on went to 100 with oxygen. HEENT: Showed pupils to be equal, round, reactive to light and accommodating. Extraocular muscles are intact. NECK: Supple with no JVD or carotid bruit. CARDIOVASCULAR SYSTEM: Show normal first and second heart sounds with no gallops or murmurs. RESPIRATORY SYSTEM: Show good air entry on both sides of the lungs with no abnormal breath sounds. GASTROINTESTINAL SYSTEM: Show abdomen to be full, soft, nontender with no organomegaly or rigidity. EXTREMITIES: The patient's feeding tube is present on the left side of the abdomen. NEUROLOGICAL SYSTEM: Show no focal deficit. MUSCULOSKELETAL SYSTEM: Show no joint swelling or tenderness. DERMATOLOGICAL SYSTEM: Show no skin rash. GENITOURINARY SYSTEM: Show no costovertebral angle tenderness. PERTINENT LABORATORY AND IMAGING STUDIES: The patient has CBC done with normal white count, low hemoglobin of 9.3 and low hematocrit of 28.3 with low MCV of 79. The CBC differential show high segmented neutrophil of 80.4. The patient's chemistry showed low sodium level of 132 with low chloride level of 90.4 and elevated total bilirubin of 2.3. The patient's cardiac enzymes show low total CPK, normal CK-MB with elevated CK percentage index of 5.2 and normal troponin level. Brain natriuretic peptide level is high with a value of 14,797 and albumin level is low with a value of 3.2. IMAGING STUDIES: The patient had chest x-ray done that came back showing prominent central pulmonary artery as seen on the prior study, may represent pulmonary arterial hypertension with no acute pulmonary process reported. DIAGNOSIS: Chest pain. PLAN OF CARE: 1. The patient will be admitted to telemetry. 2. The patient will have cardiac enzymes checked serially and this will involve troponin, total CK and CK-MB checked every 6 hours x 2 more levels. 3. The patient will be n.p.o. for Lexiscan stress test this morning. 4. The patient will be on IV Dilaudid 0.5 mg every 4 hours as needed for pain and IV Zofran 4 mg every 8 hours as needed for nausea and vomiting. 5. The patient will be on nitro paste half inch to anterior chest wall q.i.d. and will be on heparin 5000 units subcutaneous q. 12 hours for DVT prophylaxis. 6. The patient will be on Tylenol 650 mg by mouth every 4 hours for fever and headache and will be on oxygen by nasal cannula at 2 liter per minute. JOB# [id number] OCN/NTS
[2019-01-04] MEDS: ZOFRAN IV PRN ×3 (06:39→22:19)
[2019-01-04] MEDS: NITRO-BID 2% TP SCH ×4 (06:39→21:42)
[2019-01-04 07:35] LABS: Creatine Kinase MB 1.1 ng/mL (0.0-4.0)
[2019-01-04] MEDS ORDERED: LEXISCAN IV ONE ×2 (10:18→10:21)
[2019-01-04] MEDS: HEPARIN SUB-Q SCH ×2 (10:35→22:18)
--- NOTE | 2019-01-04 15:27 | Progress Note ---
Assessment and Plan Assessment and plan: Patient is 48 yo man with a plethora of severe co-morbidities including hypertension, CHF, Dilated nonischemic cardiomyopathy, EF 10-15%, normal coronaries by [facility] 09/2015, DM type 2, DVT/PE, afib Paroxysmal atrial fibrillation, not on anti-coagulation due to recent history of GI bleed, s/p TTE/cardioversion 11/2017, vtach, esophageal varices, AICD, copd, OA, anemia, severe pulmonary hypertension and esophageal cancer s/p radiation with PEG tube in place who presented with CP, Sob. I reviewed labs. Notable for normal troponin level and markedly Elevated BMP. -Chest pains: consulted Cardiology -Esophageal cancer: consulted Dr. Gooden History Interval history: Patient was seen and examined. Follow-up on current diagnosis of chest pains, still present. Overnight uneventful. Patient denies any vomiting or severe headaches. Imaging, nursing note, chart, labs and old chart reviewed. Discussed with patient. Hospitalist Physical - Physical exam Narrative exam: GEN: chronically disable, NAD, Awake, Alert, Orientated HEENT: NCAT, EOMI, PERRL, OP Clear NECK: supple, no adenopathy, no thyromegaly, no JVD CVS/HEART: RRR, normal S1S2, pulses present bilaterally CHEST/LUNGS: CTA B, Symmetrical chest expansion, good air entry bilaterally, reproducible chest wall tenderness GI/Abdomen: soft, NTND, PeG in place, good bowel sounds, no guarding or rebound /Bladder: no suprapubic tenderness, no CVA or paraspinal tenderness EXT/Skin: leg edema, no obvious rash MSK: FROM x 4 Neuro: CN 2-12 grossly intact, no new focal deficits Psych: calm - Constitutional Vitals: Temp Pulse Resp BP Pulse Ox 97.6 F 81 18 110/69 98 01/04/19 05:59 01/04/19 06:39 01/04/19 06:39 01/04/19 06:39 01/04/19 05:59 Results - Labs CBC & Chem 7: 01/03/19 21:30 01/03/19 21:30 Labs: Laboratory Last Values WBC 10.3 K/mm3 (4.5-11.0) 01/03/19 21:30 RBC 3.61 M/mm3 (3.65-5.03) L 01/03/19 21:30 Hgb 9.3 gm/dl (11.8-15.2) L 01/03/19 21:30 Hct 28.3 % (35.5-45.6) L 01/03/19 21:30 MCV 79 fl (84-94) L 01/03/19 21:30 MCH 26 pg (28-32) L 01/03/19 21:30 MCHC 33 % (32-34) 01/03/19 21:30 RDW 18.6 % (13.2-15.2) H 01/03/19 21:30 Plt Count 236 K/mm3 (140-440) 01/03/19 21:30 Lymph % (Auto) 6.8 % (13.4-35.0) L 01/03/19 21:30 [place] % (Auto) 11.7 % (0.0-7.3) H 01/03/19 21:30 Eos % (Auto) 0.5 % (0.0-4.3) 01/03/19 21: Baso % (Auto) 0.6 % (0.0-1.8) 01/03/19 21: Lymph # 0.7 K/mm3 (1.2-5.4) L 01/03/19 21:30 [place] # 1.2 K/mm3 (0.0-0.8) H 01/03/19 21:30 Eos # 0.1 K/mm3 (0.0-0.4) 01/03/19 21: Baso # 0.1 K/mm3 (0.0-0.1) 01/03/19 21: Seg Neutrophils % 80.4 % (40.0-70.0) H 01/03/19 21: Seg Neutrophils # 8.3 K/mm3 (1.8-7.7) H 01/03/19 21:30 Sodium 132 mmol/L (137-145) L 01/03/19 21:30 Potassium 3.6 mmol/L (3.6-5.0) 01/03/19 21:30 Chloride 90.4 mmol/L (98-107) L 01/03/19 21:30 Carbon Dioxide 26 mmol/L (22-30) 01/03/19 21:30 Anion Gap 19 mmol/L 01/03/19 21:30 BUN 10 mg/dL (9-20) 01/03/19 21:30 Creatinine 0.9 mg/dL (0.8-1.5) 01/03/19 21:30 Estimated GFR > 60 ml/min 01/03/19 21:30 BUN/Creatinine Ratio 11 % 01/03/19 21:30 Glucose 102 mg/dL (75-100) H 01/03/19 21:30 POC Glucose 131 (70-105) H 01/04/19 12:49 Calcium 9.0 mg/dL (8.4-10.2) 01/03/19 21:30 Total Bilirubin 2.30 mg/dL (0.1-1.2) H 01/03/19 21:30 AST 16 units/L (5-40) 01/03/19 21:30 ALT 53 units/L (7-56) 01/03/19 21:30 Alkaline Phosphatase 60 units/L (35-129) 01/03/19 21:30 Total Creatine Kinase 17 units/L (55-170) L 01/04/19 05:41 CK-MB (CK-2) 1.1 ng/mL (0.0-4.0) 01/04/19 05:41 CK-MB (CK-2) Rel Index 6.4 (0-4) H 01/04/19 05:41 Troponin T < 0.010 ng/mL (0.00-0.029) 01/04/19 05:41 NT-Pro-B Natriuret Pep 93452 pg/mL (0-900) H 01/03/19 21:30 Total Protein 6.8 g/dL (6.3-8.2) 01/03/19 21:30 Albumin 3.2 g/dL (3.9-5) L 01/03/19 21:30 Albumin/Globulin Ratio 0.9 % 01/03/19 21:30 Nutrition/Malnutrition Assess - Dietary Evaluation Nutrition/Malnutrition Findings: Nutrition Notes Start: 01/04/19 15:00 Freq: Status: Active Protocol: Document 01/04/19 15:01 (Rec: 01/04/19 15:07 [id number]) Nutrition Notes 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 Pt was D/C'd from this facility 2 days ago. Pt was receiving and tolerating clear liquid diet at that time. Nurse unsure why pt is NPO. Nurse and pt stated that pt received solid meal this morning of eggs, toast, grits, and juice. Pt stated he only ate the grits and drank the juice. Admitted to N/V last night. Burn Absent Trauma Absent #1 Nutrition Diagnosis Predicted suboptimal energy intake
[2019-01-05] MEDS: DILAUDID IV PRN ×4 (04:42→20:51)
[2019-01-05] MEDS: NITRO-BID 2% TP SCH ×4 (06:18→22:33)
--- NOTE | 2019-01-05 09:10 | Event Note ---
Date: 01/04/19 [id number]
[2019-01-05] MEDS: HEPARIN SUB-Q SCH (09:26)
--- NOTE | 2019-01-05 11:48 | Hem/Onc Progress Note ---
Assessment and Plan 1. Esophageal cancer, advanced. Seen by surgical team. As per the patient, surgery has not been planned. PEG tube was placed. The patient has started palliative radiation and he was supposed to be seen in the office for concomitant 5-FU chemotherapy, which he has not come back. PET CT was ordered. 2. History of recent pulmonary embolism. The patient was on Xarelto. 3. Anemia. 4. History of gastric banding. 5. History of hypertension. 6. History of congestive heart failure with an ejection fraction of around 15%. 7. History of diabetes. 8. History of chronic obstructive pulmonary disease. 9. History of sleep apnea. 10. History of pulmonary hypertension. 11. History of atrial fibrillation and ventricular tachycardia. At this time, the patient's main complaint is the pain issues for which he is on pain medications. He follows pain doctor as outpatient. I suggested that he can come to me for pain issues. 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 The patient was on Xarelto for small PE, which he had stopped. pt has a PORT - Patient Problems (1) Esophageal cancer Current Visit: Yes Status: Acute Subjective Date of service: 01/05/19 Principal diagnosis: esophageal cancer Interval history: c/o pain issues Objective - Constitutional Vitals: Last Vital Signs Temp 97.5 F L 01/05/19 08:09 Pulse 77 01/05/19 09:24 Resp 20 01/05/19 08:09 BP 126/86 01/05/19 08:09 Pulse Ox 99 01/05/19 08:09 Pain Intensity (0-10): 1/10 (chest) General appearance: no acute distress Performance status: 3-limited selfcare - EENT Eyes: EOM intact ENT: clear oral mucosa Lymph node exam: negative cervical - Neck Neck: normal ROM - Respiratory Respiratory effort: Positive: normal Respiratory: bilateral: CTA - Cardiovascular Heart Sounds: Present: S1 & S2 Extremities: No edema - Gastrointestinal General gastrointestinal: Present: soft Rectal Exam: deferred - Genitourinary Male genitourinary: Present: deferred - Integumentary Integumentary: warm - Musculoskeletal Musculoskeletal: strength equal bilaterally - Neurologic Neurologic: moves all extremities - Labs Lab Results: Laboratory Results - last 24 hr 01/04/19 01/04/19 01/05/19 12:49 21:26 08:18 POC Glucose 131 H 109 H 85 Medications & Allergies - Medications Allergies/Adverse Reactions: Allergies cephalexin monohydrate [From Keflex] Adverse Reaction (Verified 12/23/18 14:22) Shakes lidocaine Adverse Reaction (Verified 12/23/18 14:22) "Skin Yellowing" mushrooms Allergy (Uncoded 12/23/18 14:22) Anaphylaxis Home Medications: Home Medications Medication Instructions Recorded Confirmed Last Taken Type RX: Magnesium Oxide 400 mg PO DAILY 08/31/16 01/04/19 12/26/18 History RX: Carvedilol [Coreg] 25 mg PO BID #60 tablet 06/10/17 01/04/19 12/26/18 Rx RX: Insulin Glargine,Hum.rec.anlog 20 unit SQ HS 09/29/18 01/04/19 12/26/18 History [Lantus] RX: Allopurinol [Zyloprim] 100 mg PO BID tablet 11/20/18 01/04/19 12/26/18 Rx RX: Ferrous Sulfate [Feosol 325 MG 325 mg PO BID tablet 11/20/18 01/04/19 12/26/18 Rx tab] RX: Lisinopril [Zestril TAB] 2.5 mg PO BID tablet 11/20/18 01/04/19 12/26/18 Rx RX: Digoxin [Lanoxin] 0.125 mg PO DAILY 12/10/18 01/04/19 12/26/18 History RX: Gabapentin [Neurontin] 300 mg PO DAILY 12/10/18 01/04/19 12/26/18 History RX: Omeprazole 20 mg PO DAILY 12/10/18 01/04/19 12/26/18 History RX: glipiZIDE [Glipizide] 10 mg PO DAILY 12/10/18 01/04/19 12/26/18 History RX: Aspirin [Aspirin BABY CHEW TAB] 81 mg PO QDAY 12/20/18 01/04/19 12/26/18 History RX: Potassium Chloride [Klor-Con 20 meq PO BID 12/20/18 01/04/19 12/26/18 History M20] RX: Tizanidine HCl [Zanaflex] 4 mg PO BID 12/23/18 01/04/19 12/26/18 History RX: Oxycodone HCl/Acetaminophen 1 each PO Q6HR PRN #20 tablet 12/24/18 01/04/19 12/26/18 Rx [Percocet 7.5/325 mg] Active Medications: Generic Name Dose Route Start Last Admin Trade Name Freq PRN Reason Stop Dose Admin Acetaminophen 650 mg 01/03/19 22:31 Tylenol PO Q4H PRN Headache Heparin Sodium (Porcine) 5,000 unit 01/04/19 10:00 01/05/19 09:26 Heparin SUB-Q 5,000 unit Q12HR [facility] Administration Hydromorphone HCl 0.5 mg 01/03/19 22:30 01/05/19 09:24 Dilaudid IV 0.5 mg Q4H PRN Administration Pain , Severe (7-10) Nitroglycerin 0.5 inch 01/04/19 06:00 01/05/19 09:24 Nitro-Bid 2% TP 0.5 inch QIDNTG ROBERT Administration Protocol Ondansetron HCl 4 mg 01/03/19 22:32 01/04/19 22:19 Zofran IV 4 mg Q8H PRN Administration Nausea And Vomiting
--- NOTE | 2019-01-05 12:02 | Consultation ---
History of Present Illness Consult date: 01/05/19 Consult reason: chest pain History of present illness: Patient is a 48-year-old man with esophageal cancer, currently undergoing radiation therapy. He presented to the hospital with atypical, nonexertional chest pain. He is known with a long cardiac history of a dilated, nonischemic cardiomyopathy, paroxysmal atrial fibrillation and has been indwelling cardiac defibrillator. A cardiac consultation was requested for cardiac follow-up. Nguyen wynn currently is on bedrest on the telemetry unit, looks and feels well, asymptomatic. Past History Past Medical History: atrial fib, heart failure, hypertension Medications and Allergies Allergies Allergy/AdvReac Type Severity Reaction Status Date / Time cephalexin monohydrate AdvReac Shakes Verified 12/23/18 14:22 [From Keflex] lidocaine AdvReac "Skin Verified 12/23/18 14:22 Yellowing" mushrooms Allergy Anaphylaxis Uncoded 12/23/18 14:22 Home Medications Medication Instructions Recorded Confirmed Last Taken Type Magnesium Oxide 400 mg PO DAILY 08/31/16 01/04/19 12/26/18 History Carvedilol [Coreg] 25 mg PO BID #60 tablet 06/10/17 01/04/19 12/26/18 Rx Insulin Glargine,Hum.rec.anlog 20 unit SQ HS 09/29/18 01/04/19 12/26/18 History [Lantus] Allopurinol [Zyloprim] 100 mg PO BID tablet 11/20/18 01/04/19 12/26/18 Rx Ferrous Sulfate [Feosol 325 MG tab] 325 mg PO BID tablet 11/20/18 01/04/19 12/26/18 Rx Lisinopril [Zestril TAB] 2.5 mg PO BID tablet 11/20/18 01/04/19 12/26/18 Rx Digoxin [Lanoxin] 0.125 mg PO DAILY 12/10/18 01/04/19 12/26/18 History Gabapentin [Neurontin] 300 mg PO DAILY 12/10/18 01/04/19 12/26/18 History Omeprazole 20 mg PO DAILY 12/10/18 01/04/19 12/26/18 History glipiZIDE [Glipizide] 10 mg PO DAILY 12/10/18 01/04/19 12/26/18 History Aspirin [Aspirin BABY CHEW TAB] 81 mg PO QDAY 12/20/18 01/04/19 12/26/18 History Potassium Chloride [Klor-Con M20] 20 meq PO BID 12/20/18 01/04/19 12/26/18 His tory Tizanidine HCl [Zanaflex] 4 mg PO BID 12/23/18 01/04/19 12/26/18 History Oxycodone HCl/Acetaminophen 1 each PO Q6HR PRN #20 tablet 12/24/18 01/04/19 12/26/18 Rx [Percocet 7.5/325 mg] Active Meds: Active Medications Acetaminophen (Tylenol) 650 mg PO Q4H PRN PRN Reason: Headache Carvedilol (Coreg) 6.25 mg PO BID [facility] Heparin Sodium (Porcine) (Heparin) 5,000 unit SUB-Q Q12HR [facility] Last Admin: 01/05/19 09:26 Dose: 5,000 unit Documented by: Hydromorphone HCl (Dilaudid) 0.5 mg IV Q4H PRN PRN Reason: Pain , Severe (7-10) Last Admin: 01/05/19 09:24 Dose: 0.5 mg Documented by: Lisinopril (Zestril) 2.5 mg PO QDAY [facility] Nitroglycerin (Nitro-Bid 2%) 0.5 inch TP QIDNTG [facility]; Protocol Last Admin: 01/05/19 09:24 Dose: 0.5 inch Documented by: Ondansetron HCl (Zofran) 4 mg IV Q8H PRN PRN Reason: Nausea And Vomiting Last Admin: 01/04/19 22:19 Dose: 4 mg Documented by: Pantoprazole Sodium (Protonix) 40 mg PO QDAY [facility] Review of Systems Cardiovascular: chest pain, no orthopnea, no palpitations, no rapid/irregular heart beat, no edema, no syncope, no lightheadedness, no shortness of breath Physical Examination Vital Signs Resp 13 01/03/19 20:16 General appearance: no acute distress HEENT: Positive: PERRL Neck: Positive: neck supple Cardiac: Positive: Irregularly Regular Lungs: Positive: Decreased Breath Sounds Neuro: Positive: Grossly Intact Abdomen: Positive: Soft Male genitourinary: Positive: deferred Skin: Positive: Clear Extremities: Absent: edema Results 01/03/19 21:30 01/03/19 21:30 Assessment and Plan - Patient Problems (1) Chest pain Current Visit: Yes Status: Acute Plan to address problem: Chest pain is atypical, likely esophageal reflux and the patient with esophageal cancer undergoing radiation therapy. No further cardiac ischemic workup is indicated. I will add Protonix 40 mg to his regimen. (2) Nonischemic dilated cardiomyopathy Current Visit: Yes Status: Acute Plan to address problem: We will continue medical therapy with afterload agents and beta blockers, patient does not manifest any clinical or radiologic evidence of fluid overload or decompensated heart failure at this time.
[2019-01-05] MEDS: ZESTRIL PO SCH (13:42)
[2019-01-05] MEDS: PROTONIX PO SCH (13:42)
[2019-01-05] MEDS: ZOFRAN IV PRN (13:42)
--- NOTE | 2019-01-05 13:51 | Consultation ---
REFERRING PHYSICIAN: Dr. Calvin Zuniga. REASON FOR CONSULTATION: Esophageal cancer as per history. HISTORY OF PRESENT ILLNESS: I saw the patient who is a 48-year-old male in the medical floor. The patient was recently admitted for chest pain and he came back here on pain medication, which has been given by the pain physician and this was not helping him. The Percocet helps for a short time, but Dilaudid helps a little longer. The patient was last seen by me in the clinic on 12/18/2018. I had earlier seen him at the hospital in October 2018. At that time, he was diagnosed with esophageal cancer, adenosquamous type, HER-[address] chest had shown lymphadenopathy. Ejection fraction was low at 15%. The patient had been to surgical team. They had placed a PEG tube and the patient came back to us. The patient's port was placed and as per the patient, radiation treatment by Dr. Mi has been started. The patient was due to have a PET scan done. In the recent past, the patient was also found to have PE for which he was placed on Xarelto. 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 At this time, he is using the CPAP machine for sleep apnea. REVIEW OF SYSTEMS: He is complaining of chest pain. No headache, no visual disturbances, no ear discharge, no abdominal pain, no vomiting. The patient has a PEG tube. No hematemesis, no hematochezia. PAST MEDICAL HISTORY: Includes hypertension, CHF, diabetes, DVT, PE, asthma, COPD, sleep apnea, anemia, pulmonary hypertension, atrial fibrillation status post cardioversion of VT, an esophageal cancer with lymphadenopathy seen by surgical team, at this time, on radiation and has just started with concomitant chemotherapy component. PAST SURGICAL HISTORY: Includes pacemaker AICD, cholecystectomy, abdominal surgery with bands placement in the abdomen and PEG tube placement. FAMILY HISTORY: Noncontributory. SOCIAL HISTORY: No history of tobacco usage. ALLERGIES: CEPHALEXIN, LIDOCAINE, MUSHROOM. MEDICATION: Includes Zofran. PHYSICAL EXAMINATION: VITAL SIGNS: Temperature 97, pulse 83, respirations 20, BP 130/74. HEENT: Mild pallor, no icterus. NECK: No neck lymph nodes. HEART: S1, S2. LUNGS: Clear to auscultation anteriorly. ABDOMEN: Soft. PEG tube present. EXTREMITIES: No calf tenderness. NEUROLOGIC: Alert and awake. LABORATORY DATA: White cell 10, hemoglobin 9.3, MCV 79, platelet 236. Potassium 3.6, creatinine 0.9, bilirubin 2.3. RADIOLOGY: Chest x-ray was done. ASSESSMENT: 1. Esophageal cancer, advanced. Seen by surgical team. As per the patient, surgery has not been planned. PEG tube was placed. The patient has started palliative radiation and he was supposed to be seen in the office for concomitant 5-FU chemotherapy, which he has not come back. PET CT was ordered. 2. History of recent pulmonary embolism. The patient was on Xarelto. 3. Anemia. 4. History of gastric banding. 5. History of hypertension. 6. History of congestive heart failure with an ejection fraction of around 15%. 7. History of diabetes. 8. History of chronic obstructive pulmonary disease. 9. History of sleep apnea. 10. History of pulmonary hypertension. 11. History of atrial fibrillation and ventricular tachycardia. At this time, the patient's main complaint is the pain issues for which he is on pain medications. He follows pain doctor as outpatient. I suggested that he can come to me for pain issues. 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 The patient was on Xarelto for small PE, which he had stopped. JOB# [id number] RAPHAEL/NTS
--- NOTE | 2019-01-05 15:09 | Progress Note ---
Assessment and Plan Assessment and plan: Patient is 48 yo man with a plethora of severe co-morbidities including hypertension, CHF, Dilated nonischemic cardiomyopathy, EF 10-15%, normal coronaries by [facility] 09/2015, DM type 2, DVT/PE, afib Paroxysmal atrial fibrillation, not on anti-coagulation due to recent history of GI bleed, s/p TTE/cardioversion 11/2017, vtach, esophageal varices, AICD, copd, OA, anemia, severe pulmonary hypertension and esophageal cancer s/p radiation with PEG tube in place who presented with CP, Sob. I reviewed labs. Notable for normal troponin level and markedly Elevated BMP. -Chest pains related to Esophagus most likely: consulted Cardiology -Esophageal cancer: consulted Dr. Gooden -PE/DVT by history: restart Xarelto per Dr. Gooden Advance Diet and control pain better and hopefully discharge tomorrow. History Interval history: Patient was seen and examined. Follow-up on current diagnosis of chest pains, still present. Overnight uneventful. Patient denies any vomiting or severe headaches. Imaging, nursing note, chart, labs and old chart reviewed. Discussed with patient. Hospitalist Physical - Physical exam Narrative exam: GEN: chronically disable, NAD, Awake, Alert, Orientated HEENT: NCAT, EOMI, PERRL, OP Clear NECK: supple, no adenopathy, no thyromegaly, no JVD CVS/HEART: RRR, normal S1S2, pulses present bilaterally CHEST/LUNGS: CTA B, Symmetrical chest expansion, good air entry bilaterally, reproducible chest wall tenderness GI/Abdomen: soft, NTND, PeG in place, good bowel sounds, no guarding or rebound /Bladder: no suprapubic tenderness, no CVA or paraspinal tenderness EXT/Skin: leg edema, no obvious rash MSK: FROM x 4 Neuro: CN 2-12 grossly intact, no new focal deficits Psych: calm - Constitutional Vitals: Temp Pulse Resp BP Pulse Ox 97.5 F L 59 L 20 126/86 99 01/05/19 08:09 01/05/19 13:42 01/05/19 08:09 01/05/19 08:09 01/05/19 12:44 General appearance: Present: no acute distress Results - Labs CBC & Chem 7: 01/03/19 21:30 01/03/19 21:30 Labs: Laboratory Last Values WBC 10.3 K/mm3 (4.5-11.0) 01/03/19 21:30 RBC 3.61 M/mm3 (3.65-5.03) L 01/03/19 21:30 Hgb 9.3 gm/dl (11.8-15.2) L 01/03/19 21:30 Hct 28.3 % (35.5-45.6) L 01/03/19 21:30 MCV 79 fl (84-94) L 01/03/19 21:30 MCH 26 pg (28-32) L 01/03/19 21:30 MCHC 33 % (32-34) 01/03/19 21:30 RDW 18.6 % (13.2-15.2) H 01/03/19 21:30 Plt Count 236 K/mm3 (140-440) 01/03/19 21:30 Lymph % (Auto) 6.8 % (13.4-35.0) L 01/03/19 21:30 [place] % (Auto) 11.7 % (0.0-7.3) H 01/03/19 21:30 Eos % (Auto) 0.5 % (0.0-4.3) 01/03/19 21:30 Baso % (Auto) 0.6 % (0.0-1.8) 01/03/19 21:30 Lymph # 0.7 K/mm3 (1.2-5.4) L 01/03/19 21:30 [place] # 1.2 K/mm3 (0.0-0.8) H 01/03/19 21:30 Eos # 0.1 K/mm3 (0.0-0.4) 01/03/19 21:30 Baso # 0.1 K/mm3 (0.0-0.1) 01/03/19 21:30 Seg Neutrophils % 80.4 % (40.0-70.0) H 01/03/19 21:30 Seg Neutrophils # 8.3 K/mm3 (1.8-7.7) H 01/03/19 21:30 Sodium 132 mmol/L (137-145) L 01/03/19 21:30 Potassium 3.6 mmol/L (3.6-5.0) 01/03/19 21:30 Chloride 90.4 mmol/L (98-107) L 01/03/19 21:30 Carbon Dioxide 26 mmol/L (22-30) 01/03/19 21:30 Anion Gap 19 mmol/L 01/03/19 21:30 BUN 10 mg/dL (9-20) 01/03/19 21:30 Creatinine 0.9 mg/dL (0.8-1.5) 01/03/19 21:30 Estimated GFR > 60 ml/min 01/03/19 21:30 BUN/Creatinine Ratio 11 % 01/03/19 21:30 Glucose 102 mg/dL (75-100) H 01/03/19 21:30 POC Glucose 85 (70-105) 01/05/19 08:18 Calcium 9.0 mg/dL (8.4-10.2) 01/03/19 21:30 Total Bilirubin 2.30 mg/dL (0.1-1.2) H 01/03/19 21:30 AST 16 units/L (5-40) 01/03/19 21:30 ALT 53 units/L (7-56) 01/03/19 21:30 Alkaline Phosphatase 60 units/L (35-129) 01/03/19 21:30 Total Creatine Kinase 17 units/L (55-170) L 01/04/19 05:41 CK-MB (CK-2) 1.1 ng/mL (0.0-4.0) 01/04/19 05:41 CK-MB (CK-2) Rel Index 6.4 (0-4) H 01/04/19 05:41 Troponin T < 0.010 ng/mL (0.00-0.029) 01/04/19 05:41 NT-Pro-B Natriuret Pep 53236 pg/mL (0-900) H 01/03/19 21:30 Total Protein 6.8 g/dL (6.3-8.2) 01/03/19 21:30 Albumin 3.2 g/dL (3.9-5) L 01/03/19 21:30 Albumin/Globulin Ratio 0.9 % 01/03/19 21:30 Nutrition/Malnutrition Assess - Dietary Evaluation Nutrition/Malnutrition Findings: Nutrition Notes Start: 01/04/19 15:00 Freq: Status: Active Protocol: Document 01/04/19 15:01 RM (Rec: 01/04/19 15:07 RM [id number]) Nutrition Notes Need for Assessment generated from: meat cutter Initial or Follow up Assessment Current Diagnosis COPD,Diabetes,Hypertension, Heart Failure Other Pertinent Diagnosis PEG Current Diet NPO after midnight Labs/Tests Reviewed Pertinent Medications Reviewed Height 6 ft Weight 122.4 kg [place] Body Weight (kg) 80.90 BMI 36.6 Subjective/Other Information Screened for malnutrition and having previously received TF or TPN. Pt was D/C'd from this facility on 01/01/19 and came back d/t pain. Pt could not tolerate 2 calHN regimen prescribed at [facility] so was receiving and tolerating clear liquid diet last visit at this facility. Pt stated that he does not want to use PEG until he goes to [facility] and was drinking 2 calHN before current visit. Nurse unsure why pt is NPO. Nurse and pt stated that pt received solid meal this morning of eggs, toast, grits, and juice. Pt stated he only ate the grits and drank the juice. Admitted to N/V last night. Minute Clerk informed nurse of recommendation to advance diet to full liquid. Nurse stated she would inform MD and later told customs entry writer that MD is considering it. Burn Absent Trauma Absent #1 Nutrition Diagnosis Predicted suboptimal energy intake Etiology hx of esophageal cancer, N/V As Evidenced by Signs and Symptoms pt tolerating only clear liquid diet during previous visit,PEG Is patient on ventilator? No Is Patient Ambulatory and/or Out of Bed Yes REE-([place]-ambulatory/OOB) [ 9058.600 NUTR.MSJOOB] Kcal/Kg value to use for calculation 18 Approximate Energy Requirements Using 2203 kcal/Kg Calculation Used for Recommendations Kcal/kg Additional Notes Protein Needs: 102-122g (1-1. 2g/kg 102kg adjBW) Fluid Needs: 1 ml/kcal Nutrition Intervention Change Diet Order: Advance diet to full liquid Add Supplement/Snack (indicate name/kcal Glucerna 1 daily once diet /protein ) advanced Provides kCal: 220 Provides Protein (gm) 10 Goal #1 Diet advancement Anticipated Discharge Needs: TF Follow-Up By: 01/06/19 Additional Comments Follow for POC, diet advancement, PO intakes and ONS intakes
--- NOTE | 2019-01-05 15:20 | Consultation ---
History of Present Illness - Reason for Consult Consult date: 01/05/19 abdominal pain Requesting physician: LARY TERRAZAS - History of Present Illness Mr. Carmona is a 48-year-old man who is well-known to us. Please see our consult note from last week for full details. He came in complaining of abdominal pain and shortness of breath and is feeling better now. However, he complains of tenderness or pain at the site of the G-tube. He notes that it flushes well. G-tube was placed at [facility] in early November. Currently, he is taking liquids well by mouth. Past History Past Medical History: atrial fib, cancer (esophageal), heart failure, hypertension Medications and Allergies Allergies Allergy/AdvReac Type Severity Reaction Status Date / Time cephalexin monohydrate AdvReac Shakes Verified 12/23/18 14:22 [From Keflex] lidocaine AdvReac "Skin Verified 12/23/18 14:22 Yellowing" mushrooms Allergy Anaphylaxis Uncoded 12/23/18 14:22 Home Medications Medication Instructions Recorded Confirmed Last Taken Type Magnesium Oxide 400 mg PO DAILY 08/31/16 01/04/19 12/26/18 History Carvedilol [Coreg] 25 mg PO BID #60 tablet 06/10/17 01/04/19 12/26/18 Rx Insulin Glargine,Hum.rec.anlog 20 unit SQ HS 09/29/18 01/04/19 12/26/18 History [Lantus] Allopurinol [Zyloprim] 100 mg PO BID tablet 11/20/18 01/04/19 12/26/18 Rx Ferrous Sulfate [Feosol 325 MG tab] 325 mg PO BID tablet 11/20/18 01/04/19 12/26/18 Rx Lisinopril [Zestril TAB] 2.5 mg PO BID tablet 11/20/18 01/04/19 12/26/18 Rx Digoxin [Lanoxin] 0.125 mg PO DAILY 12/10/18 01/04/19 12/26/18 History Gabapentin [Neurontin] 300 mg PO DAILY 12/10/18 01/04/19 12/26/18 History Omeprazole 20 mg PO DAILY 12/10/18 01/04/19 12/26/18 History glipiZIDE [Glipizide] 10 mg PO DAILY 12/10/18 01/04/19 12/26/18 History Aspirin [Aspirin BABY CHEW TAB] 81 mg PO QDAY 12/20/18 01/04/19 12/26/18 History Potassium Chloride [Klor-Con M20] 20 meq PO BID 12/20/18 01/04/19 12/26/18 History Tizanidine HCl [Zanaflex] 4 mg PO BID 12/23/18 01/04/19 12/26/18 History Oxycodone HCl/Acetaminophen 1 each PO Q6HR PRN #20 tablet 12/24/18 01/04/19 12/26/18 Rx [Percocet 7.5/325 mg] Active Meds: Active Medications Acetaminophen (Tylenol) 650 mg PO Q4H PRN PRN Reason: Headache Carvedilol (Coreg) 6.25 mg PO BID [facility] Heparin Sodium (Porcine) (Heparin) 5,000 unit SUB-Q Q12HR [facility] Last Admin: 01/05/19 09:26 Dose: 5,000 unit Documented by: Hydromorphone HCl (Dilaudid) 0.5 mg IV Q4H PRN PRN Reason: Pain , Severe (7-10) Last Admin: 01/05/19 13:44 Dose: 0.5 mg Documented by: Lisinopril (Zestril) 2.5 mg PO QDAY [facility] Last Admin: 01/05/19 13:42 Dose: 2.5 mg Documented by: Morphine Sulfate (Ms Contin Er) 30 mg PO Q12HR [facility] Nitroglycerin (Nitro-Bid 2%) 0.5 inch TP QIDNTG [facility]; Protocol Last Admin: 01/05/19 09:24 Dose: 0.5 inch Documented by: Ondansetron HCl (Zofran) 4 mg IV Q8H PRN PRN Reason: Nausea And Vomiting Last Admin: 01/05/19 13:42 Dose: 4 mg Documented by: Pantoprazole Sodium (Protonix) 40 mg PO QDAY [facility] Last Admin: 01/05/19 13:42 Dose: 40 mg Documented by: Review of Systems All systems: negative (as per HPI) Exam - Constitutional Vitals: Temp Pulse Resp BP Pulse Ox 97.5 F L 59 L 20 126/86 99 01/05/19 08:09 01/05/19 13:42 01/05/19 08:09 01/05/19 08:09 01/05/19 12:44 General appearance: Present: no acute distress, other (on BIPAP mask) - EENT Eyes: Present: PERRL, EOM intact ENT: hearing intact - Respiratory Respiratory effort: normal Respiratory: bilateral: CTA - Cardiovascular Rhythm: regular Heart Sounds: Present: S1 & S2 - Abdominal General gastrointestinal: Present: other (Soft. G-tube bumper embedded in skin, and loosened. While it turns freely, it does not go in and out freely.) Results - Labs CBC & Chem 7: 01/03/19 21:30 01/03/19 21:30 Labs: Abnormal lab results 01/04/19 Range/Units 21:26 POC Glucose 109 H (70-105) Assessment and Plan 1. G-tube site pain - improved after bumper loosened. However, tube does not go in and out freely. CT from 12/27/18 viewed, and bumper appears to have migrated into gastric wall, though still connected to lumen. - will review with Radiology tomorrow - if migrated, may need to remove. - if devi liquids, may not need ongoing G-tube, and if needed, can try replacing over wire.
[2019-01-05] MEDS: XARELTO PO SCH (16:08)
[2019-01-05] MEDS: MS CONTIN ER PO SCH ×2 (16:09→22:34)
[2019-01-05] MEDS: COREG PO SCH ×2 (16:09→22:34)
[2019-01-06] MEDS: DILAUDID IV PRN ×2 (03:36→11:25)
[2019-01-06] MEDS: NITRO-BID 2% TP SCH ×4 (05:46→15:00)
--- NOTE | 2019-01-06 08:25 | Hem/Onc Progress Note ---
Assessment and Plan 1. Esophageal cancer, advanced. Seen by surgical team. As per the patient, surgery has not been planned. PEG tube was placed. The patient has started palliative radiation and he was supposed to be seen in the office for concomitant 5-FU chemotherapy, which he has not come back. PET CT was ordered. 2. History of recent pulmonary embolism. The patient was on Xarelto. 3. Anemia. 4. History of gastric banding. 5. History of hypertension. 6. History of congestive heart failure with an ejection fraction of around 15%. 7. History of diabetes. 8. History of chronic obstructive pulmonary disease. 9. History of sleep apnea. 10. History of pulmonary hypertension. 11. History of atrial fibrillation and ventricular tachycardia. At this time, the patient's main complaint is the pain issues for which he is on pain medications. He follows pain doctor as outpatient. I suggested that he can come to me for pain issues. 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 The patient was on Xarelto for small PE, which he had stopped. pt has a PORT 01/06 - chest pain better GI team saw pt for PEG tube related xarelto - OP follow up an option - Patient Problems (1) Esophageal cancer Status: Acute Subjective Date of service: 01/06/19 Principal diagnosis: esophageal ca Interval history: chest pain better Objective - Constitutional Vitals: Last Vital Signs Temp 98.1 F 01/06/19 07:36 Pulse 68 01/06/19 07:36 Resp 20 01/06/19 07:36 BP 134/84 01/06/19 07:36 Pulse Ox 97 01/06/19 07:36 Pain Intensity (0-10): denies any pain General appearance: no acute distress Performance status: 3-limited selfcare - EENT Eyes: EOM intact ENT: clear oral mucosa Lymph node exam: negative cervical - Neck Neck: normal ROM - Respiratory Respiratory effort: Positive: normal Respiratory: bilateral: CTA - Cardiovascular Heart Sounds: Present: S1 & S2 Extremities: No edema - Gastrointestinal General gastrointestinal: Present: soft, other (PEG +) Rectal Exam: deferred - Genitourinary Male genitourinary: Present: deferred - Integumentary Integumentary: warm - Musculoskeletal Musculoskeletal: strength equal bilaterally - Neurologic Neurologic: moves all extremities - Labs Lab Results: Laboratory Results - last 24 hr 01/05/19 01/05/19 08:18 21:14 POC Glucose 85 120 H Medications & Allergies - Medications Allergies/Adverse Reactions: Allergies cephalexin monohydrate [From Keflex] Adverse Reaction (Verified 12/23/18 14:22) Shakes lidocaine Adverse Reaction (Verified 12/23/18 14:22) "Skin Yellowing" mushrooms Allergy (Uncoded 12/23/18 14:22) Anaphylaxis Home Medications: Home Medications Medication Instructions Recorded Confirmed Last Taken Type Magnesium Oxide 400 mg PO DAILY 08/31/16 01/04/19 12/26/18 History Carvedilol [Coreg] 25 mg PO BID #60 tablet 06/10/17 01/04/19 12/26/18 Rx Insulin Glargine,Hum.rec.anlog 20 unit SQ HS 09/29/18 01/04/19 12/26/18 History [Lantus] Allopurinol [Zyloprim] 100 mg PO BID tablet 11/20/18 01/04/19 12/26/18 Rx Ferrous Sulfate [Feosol 325 MG tab] 325 mg PO BID tablet 11/20/18 01/04/19 12/26/18 Rx Lisinopril [Zestril TAB] 2.5 mg PO BID tablet 11/20/18 01/04/19 12/26/18 Rx Digoxin [Lanoxin] 0.125 mg PO DAILY 12/10/18 01/04/19 12/26/18 History Gabapentin [Neurontin] 300 mg PO DAILY 12/10/18 01/04/19 12/26/18 History Omeprazole 20 mg PO DAILY 12/10/18 01/04/19 12/26/18 History glipiZIDE [Glipizide] 10 mg PO DAILY 12/10/18 01/04/19 12/26/18 History Aspirin [Aspirin BABY CHEW TAB] 81 mg PO QDAY 12/20/18 01/04/19 12/26/18 History Potassium Chloride [Klor-Con M20] 20 meq PO BID 12/20/18 01/04/19 12/26/18 History Tizanidine HCl [Zanaflex] 4 mg PO BID 12/23/18 01/04/19 12/26/18 History Oxycodone HCl/Acetaminophen 1 each PO Q6HR PRN #20 tablet 12/24/18 01/04/19 12/26/18 Rx [Percocet 7.5/325 mg] Hydromorphone HCl [Dilaudid] 4 mg PO Q12HR PRN #20 tablet 01/06/19 Unknown Rx Rivaroxaban [Xarelto] 20 mg PO QDAY #30 tablet 01/06/19 Unknown Rx Active Medications: Generic Name Dose Route Start Last Admin Trade Name Freq PRN Reason Stop Dose Admin Acetaminophen 650 mg 01/03/19 22:31 Tylenol PO Q4H PRN Headache Carvedilol 6.25 mg 01/05/19 14:00 01/05/19 22:34 Coreg PO 6.25 mg BID ROBERT Administration Hydromorphone HCl 0.5 mg 01/03/19 22:30 01/06/19 03:36 Dilaudid IV 0.5 mg Q4H PRN Administration Pain , Severe (7-10) Lisinopril 2.5 mg 01/05/19 14:00 01/05/19 13:42 Zestril PO 2.5 mg QDAY [facility] Administration Morphine Sulfate 30 mg 01/05/19 16:00 01/05/19 22:34 Ms Contin Er PO 30 mg Q12HR ROBERT Administration Nitroglycerin 0.5 inch 01/04/19 06:00 01/06/19 06:01 Nitro-Bid 2% TP Not Given QIDNTG [facility] Protocol Ondansetron HCl 4 mg 01/03/19 22:32 01/05/19 13:42 Zofran IV 4 mg Q8H PRN Administration Nausea And Vomiting Pantoprazole Sodium 40 mg 01/05/19 14:00 01/05/19 13:42 Protonix PO 40 mg QDAY ROBERT Administration Rivaroxaban 20 mg 01/05/19 16:00 01/05/19 16:08 Xarelto PO 20 mg QDAY ROBERT Administration Protocol
[2019-01-06] MEDS: PROTONIX PO SCH (09:24)
[2019-01-06] MEDS: COREG PO SCH (09:24)
[2019-01-06] MEDS: XARELTO PO SCH (09:25)
[2019-01-06] MEDS: MS CONTIN ER PO SCH ×2 (09:25→18:00)
[2019-01-06] MEDS: ZESTRIL PO SCH (09:26)
--- NOTE | 2019-01-06 09:55 | Progress Note ---
Assessment and Plan Assessment and plan: Patient is 48 yo man with a plethora of severe co-morbidities including hypertension, CHF, Dilated nonischemic cardiomyopathy, EF 10-15%, normal coronaries by [facility] 09/2015, DM type 2, DVT/PE, afib Paroxysmal atrial fibrillation, not on anti-coagulation due to recent history of GI bleed, s/p TTE/cardioversion 11/2017, vtach, esophageal varices, AICD, copd, OA, anemia, severe pulmonary hypertension and esophageal cancer s/p radiation with PEG tube in place who presented with CP, Sob. I reviewed labs. Notable for normal troponin level and markedly Elevated BMP. -Chest pains related to Esophagus most likely: consulted Cardiology -Esophageal cancer: Dr. Gooden, to start chemo on Sunday -PE/DVT by history: restart Xarelto per Dr. Gooden Tolerated Advance Diet and control pain better and hopefully discharge tomorrow. D/c if cleared by GI, who may remove the PEG tube because the PEG tube bumper may have migrated into gastric wall per GI. History Interval history: Patient was seen and examined. Follow-up on current diagnosis of chest pains resolved after GI, Dr. Babin loosened the PEG tube bumper yesterday but still uncomfortable abd pains. Overnight uneventful. Patient denies any vomiting or severe headaches. Imaging, nursing note, chart, labs and old chart reviewed. Discussed with patient. Hospitalist Physical - Physical exam Narrative exam: GEN: chronically disable, NAD, Awake, Alert, Orientated HEENT: NCAT, EOMI, PERRL, OP Clear NECK: supple, no adenopathy, no thyromegaly, no JVD CVS/HEART: RRR, normal S1S2, pulses present bilaterally CHEST/LUNGS: CTA B, Symmetrical chest expansion, good air entry bilaterally, reproducible chest wall tenderness GI/Abdomen: soft, NTND, PeG in place, good bowel sounds, no guarding or rebound /Bladder: no suprapubic tenderness, no CVA or paraspinal tenderness EXT/Skin: leg edema, no obvious rash MSK: FROM x 4 Neuro: CN 2-12 grossly intact, no new focal deficits Psych: calm - Constitutional Vitals: Temp Pulse Resp BP Pulse Ox 98.1 F 99 H 20 134/84 97 01/06/19 07:36 01/06/19 09:26 01/06/19 07:36 01/06/19 07:36 01/06/19 07:36 General appearance: Present: no acute distress, other (on BIPAP mask) Results - Labs CBC & Chem 7: 01/03/19 21:30 01/03/19 21:30 Labs: Laboratory Last Values WBC 10.3 K/mm3 (4.5-11.0) 01/03/19 21:30 RBC 3.61 M/mm3 (3.65-5.03) L 01/03/19 21:30 Hgb 9.3 gm/dl (11.8-15.2) L 01/03/19 21:30 Hct 28.3 % (35.5-45.6) L 01/03/19 21:30 MCV 79 fl (84-94) L 01/03/19 21:30 MCH 26 pg (28-32) L 01/03/19 21:30 MCHC 33 % (32-34) 01/03/19 21:30 RDW 18.6 % (13.2-15.2) H 01/03/19 21:30 Plt Count 236 K/mm3 (140-440) 01/03/19 21:30 Lymph % (Auto) 6.8 % (13.4-35.0) L 01/03/19 21:30 [place] % (Auto) 11.7 % (0.0-7.3) H 01/03/19 21:30 Eos % (Auto) 0.5 % (0.0-4.3) 01/03/19 21:30 Baso % (Auto) 0.6 % (0.0-1.8) 01/03/19 21:30 Lymph # 0.7 K/mm3 (1.2-5.4) L 01/03/19 21:30 [place] # 1.2 K/mm3 (0.0-0.8) H 01/03/19 21:30 Eos # 0.1 K/mm3 (0.0-0.4) 01/03/19 21:30 Baso # 0.1 K/mm3 (0.0-0.1) 01/03/19 21:30 Seg Neutrophils % 80.4 % (40.0-70.0) H 01/03/19 21:30 Seg Neutrophils # 8.3 K/mm3 (1.8-7.7) H 01/03/19 21:30 Sodium 132 mmol/L (137-145) L 01/03/19 21:30 Potassium 3.6 mmol/L (3.6-5.0) 01/03/19 21:30 Chloride 90.4 mmol/L (98-107) L 01/03/19 21:30 Carbon Dioxide 26 mmol/L (22-30) 01/03/19 21:30 Anion Gap 19 mmol/L 01/03/19 21:30 BUN 10 mg/dL (9-20) 01/03/19 21:30 Creatinine 0.9 mg/dL (0.8-1.5) 01/03/19 21:30 Estimated GFR > 60 ml/min 01/03/19 21:30 BUN/Creatinine Ratio 11 % 01/03/19 21:30 Glucose 102 mg/dL (75-100) H 01/03/19 21:30 POC Glucose 89 (70-105) 01/06/19 07:42 Calcium 9.0 mg/dL (8.4-10.2) 01/03/19 21:30 Total Bilirubin 2.30 mg/dL (0.1-1.2) H 01/03/19 21:30 AST 16 units/L (5-40) 01/03/19 21:30 ALT 53 units/L (7-56) 01/03/19 21:30 Alkaline Phosphatase 60 units/L (35-129) 01/03/19 21:30 Total Creatine Kinase 17 units/L (55-170) L 01/04/19 05:41 CK-MB (CK-2) 1.1 ng/mL (0.0-4.0) 01/04/19 05:41 CK-MB (CK-2) Rel Index 6.4 (0-4) H 01/04/19 05:41 Troponin T < 0.010 ng/mL (0.00-0.029) 01/04/19 05:41 NT-Pro-B Natriuret Pep 68531 pg/mL (0-900) H 01/03/19 21:30 Total Protein 6.8 g/dL (6.3-8.2) 01/03/19 21:30 Albumin 3.2 g/dL (3.9-5) L 01/03/19 21:30 Albumin/Globulin Ratio 0.9 % 01/03/19 21:30 Active Medications - Current Medications Current Medications: Generic Name Dose Route Start Last Admin Trade Name Freq PRN Reason Stop Dose Admin Acetaminophen 650 mg 01/03/19 22:31 Tylenol PO Q4H PRN Headache Carvedilol 6.25 mg 01/05/19 14:00 01/06/19 09:24 Coreg PO 6.25 mg BID ROBERT Administration Hydromorphone HCl 0.5 mg 01/03/19 22:30 01/06/19 03:36 Dilaudid IV 0.5 mg Q4H PRN Administration Pain , Severe (7-10) Lisinopril 2.5 mg 01/05/19 14:00 01/06/19 09:26 Zestril PO 2.5 mg QDAY ROBERT Administration Morphine Sulfate 30 mg 01/05/19 16:00 01/06/19 09:25 Ms Contin Er PO 30 mg Q12HR ROBERT Administration Nitroglycerin 0.5 inch 01/04/19 06:00 01/06/19 09:26 Nitro-Bid 2% TP 0.5 inch QIDNTG ROBERT Administration Protocol Ondansetron HCl 4 mg 01/03/19 22:32 01/05/19 13:42 Zofran IV 4 mg Q8H PRN Administration Nausea And Vomiting Pantoprazole Sodium 40 mg 01/05/19 14:00 01/06/19 09:24 Protonix PO 40 mg QDAY ROBERT Administration Rivaroxaban 20 mg 01/05/19 16:00 01/06/19 09:25 Xarelto PO 20 mg QDAY ROBERT Administration Protocol Nutrition/Malnutrition Assess - Dietary Evaluation Nutrition/Malnutrition Findings: Nutrition Notes Start: 01/04/19 15:00 Freq: Status: Active Protocol: Document 01/04/19 15:01 (Rec: 01/04/19 15:07 [email or web address]) Nutrition Notes 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 Pt was D/C'd from this facility on 01/01/19 and came back d/t pain. Pt could not tolerate 2 calHN regimen prescribed at [facility] so was receiving and tolerating clear liquid diet last visit at this facility. Pt stated that he does not want to use PEG until he goes to [facility] and was drinking 2 calHN before current visit. Nurse unsure why pt is NPO. Nurse and pt stated that pt received solid meal this morning of eggs, toast, grits, and juice. Pt stated he only ate the grits and drank the juice. Admitted to N/V last night. Chartered Wealth Manager informed nurse of recommendation to advance diet to full liquid. Nurse stated she would inform MD and later told ad copy writer that MD is considering it. Burn Absent Trauma Absent #1 Nutrition Diagnosis Predicted suboptimal energy intake Etiology hx of esophageal cancer, N/V As Evidenced by Signs and Symptoms pt tolerating only clear liquid diet during previous visit,PEG Is patient on ventilator? No Is Patient Ambulatory and/or Out of Bed Yes REE-([place]-St. Jeor-ambulatory/OOB) [ 2758.600 NUTR.MSJOOB] Kcal/Kg value to use for calculation 18 Approximate Energy Requirements Using 2203 kcal/Kg Calculation Used for Recommendations Kcal/kg Additional Notes Protein Needs: 102-122g (1-1. 2g/kg 102kg adjBW) Fluid Needs: 1 ml/kcal Nutrition Intervention Change Diet Order: Advance diet to full liquid Add Supplement/Snack (indicate name/kcal Glucerna 1 daily once diet /protein ) advanced Provides kCal: 220 Provides Protein (gm) 10 Goal #1 Diet advancement Anticipated Discharge Needs: TF Follow-Up By: 01/06/19 Additional Comments Follow for POC, diet advancement, PO intakes and ONS intakes
--- NOTE | 2019-01-06 10:00 | Discharge Summary ---
Providers - Providers Date of Admission: 01/03/19 22:19 Date of discharge: 01/06/19 Attending physician: LARY TERRAZAS 01/04/19 15:35 Consult to Physician [CONS] Routine Comment: Consulting Provider: SHO ORTEZ Physician Instructions: Reason For Exam: chest pains, pt known to you Consult to Physician [CONS] Routine Comment: Consulting Provider: BUD GOODEN Physician Instructions: Reason For Exam: Esophageal cancer, your patient 01/04/19 15:36 Consult to Physician [CONS] Routine Comment: Consulting Provider: KUSHAL OLSON Physician Instructions: Reason For Exam: dysphagia with chest pains, Esophageal cancer Primary care physician: STONE MOSES Hospitalization Condition: Stable Hospital course: Patient is 48 yo man with a plethora of severe co-morbidities including hypertension, CHF, Dilated nonischemic cardiomyopathy, EF 10-15%, normal coronaries by [facility] 09/2015, DM type 2, DVT/PE, afib Paroxysmal atrial fibrillation, Pe/dvt on xarelto, s/p TTE/cardioversion 11/2017, vtach, esophageal varices, AICD, copd, [place] on cpap, OA, anemia, severe pulmonary hypertension and esophageal cancer s/p radiation with PEG tube in place who presented with CP, Sob and abd pains. He underwent thorough cardiac evaluation and was seen by Measurement Supervisor. He continued to have chest/abd pain, so GI was consulted and found that the peg tube that he doesn't really use has migrated; it was loosened with instant partial relief of his symptoms. The peg was to be removed but was not because he was on Xarelto. -Chest pains related to PEG most likely: PEG to be removed on . -Suspected acute hypoxic respiratory failure, poa, from splints chest and abd pains, pulse ox <88% on admission, resolved, off O2 -History of CHF, stable -Esophageal cancer: Dr. Gooden, to start chemo on Sunday and then radiation on Sunday -PEG tube malfunction causing chest and abd pains -PE/DVT by history: restart Xarelto per Dr. Gooden Tolerated Advance Diet and pain better controlled and hopefully discharge today Patient on Xarelto, peg not removed today, will be removed off Xarelto for [address] Babin on with Dr. Anthony Junior. patient's number [phone] Condon for follow up. Disposition: DC-01 TO HOME OR SELFCARE Time spent for discharge: 35 minutes Core Measure Documentation - Palliative Care Palliative Care/ Comfort Measures: Not Applicable - Core Measures Any of the following diagnoses?: none - VTE Discharge Requirements Deep Vein Thrombosis/Pulmonary Embolism Present on Admission: No Has pt received <5 days of overlap therapy or INR<2.0: No Anticoagulant overlap therapy prescribed at discharge: No Contraindication No Overlap Therapy order at DC: Not Indicated Exam - Physical Exam Narrative exam: GEN: chronically disable, NAD, Awake, Alert, Orientated HEENT: NCAT, EOMI, PERRL, OP Clear NECK: supple, no adenopathy, no thyromegaly, no JVD CVS/HEART: RRR, normal S1S2, pulses present bilaterally CHEST/LUNGS: CTA B, Symmetrical chest expansion, good air entry bilaterally, reproducible chest wall tenderness GI/Abdomen: soft, NTND, PeG in place, good bowel sounds, no guarding or rebound /Bladder: no suprapubic tenderness, no CVA or paraspinal tenderness EXT/Skin: leg edema, no obvious rash MSK: FROM x 4 Neuro: CN 2-12 grossly intact, no new focal deficits Psych: calm - Constitutional Vitals: Temp Pulse Resp BP Pulse Ox 98.1 F 99 H 20 134/84 97 01/06/19 07:36 01/06/19 09:26 01/06/19 07:36 01/06/19 07:36 01/06/19 07:36 Plan Activity: other (no strenous activity) Diet: low salt, diabetic Special Instructions: record daily BP diary, record blood sugar diary Additional Instructions: Stop Xarelto and See Dr. Junior on to remove the PEG tube. Follow up with: DEMETRIS NGUYEN MD [Referring] - 3-5 Days BUD GOODEN MD [Staff Physician] - 01/07/19 Prescriptions: Hydromorphone HCl [Dilaudid] 4 mg PO Q12HR PRN #20 tablet PRN Reason: Pain , Severe (7-10) Rivaroxaban [Xarelto] 20 mg PO QDAY #30 tablet
[2019-01-06] MEDS: ZOFRAN IV PRN (11:41)
--- NOTE | 2019-01-06 11:53 | Progress Note ---
Assessment and Plan Esophageal carcinoma currently undergoing radiation therapy Recent diagnosis of PE at [facility] and started on xarelto. on Xarelto therapy Paroxysmal Afib s/p cardioversion 11/2017 Dilated nonischemic cardiomyopathy, EF 10-15% Cath 12/2017 - mild non-obstructive coronary artery disease Chronic obstructive pulmonary disease Severe Pulmonary Hypertension Essential hypertension Type 2 diabetes mellitus Obstructive sleep apnea Presence of METAL SANDER-ICD ([employer]) normal functioning device on recent interrogation. Hx of VT/VF in the setting of hypokalemia Conservative cardiac management. Subjective Date of service: 01/06/19 Principal diagnosis: esophageal cancer Interval history: Patient has no cardiac complaints. Objective Vital Signs Temp Pulse Resp BP BP Pulse Ox 01/06/19 11:30 97.9 F 80 20 103/66 98 01/06/19 09:26 99 H 01/06/19 09:24 97 H 01/06/19 07:36 98.1 F 68 20 134/84 97 01/06/19 06:01 65 92/59 01/06/19 05:46 65 92/59 01/06/19 04:00 65 18 92/59 98 01/06/19 01:00 65 01/06/19 00:00 97.8 F 77 18 116/72 98 01/05/19 22:34 61 118/71 01/05/19 22:00 18 01/05/19 19:27 99 01/05/19 16:09 99 H 01/05/19 16:06 0 L 01/05/19 13:42 59 L 01/05/19 12:44 99 - Physical Examination General: No Apparent Distress HEENT: Positive: PERRL Neck: Positive: trachea midline Cardiac: Positive: Other (paced) Lungs: Positive: Decreased Breath Sounds Neuro: Positive: Grossly Intact Abdomen: Positive: Soft Skin: Positive: Clear Extremities: Absent: edema
--- NOTE | 2019-01-06 14:38 | Progress Note ---
Assessment and Plan 1. G-tube site pain - slightly improved after bumper loosened. However, tube does not go in and out freely. CT from 12/27/18 reviewed with Radiology, and bumper appears to have migrated into gastric wall, though still connected to lumen. - G-tube needs to be removed, but would like pt off Xarelto for 2 days to eliminate risk of bleeding from traction removal. Can stop Xarelto now if okay, and remove tube on Sunday if inpatient, or on otherwise. 2. Esophageal cancer - pt due as outpatient for chemo tomorrow and XRT on 01/08. Discussed with Dr. Zuniga. Subjective Date of service: 01/06/19 Principal diagnosis: esophageal cancer Interval history: Pt states abd pain is mildly improved at G-tube site, after release yesterday. Objective - Constitutional Vitals: Vital Signs - 12hr 01/06/19 01/06/19 01/06/19 04:00 05:46 06:01 Temperature Pulse Rate 65 65 65 Respiratory 18 Rate Blood Pressure 92/59 92/59 Blood Pressure 92/59 [Right] O2 Sat by Pulse 98 Oximetry 01/06/19 01/06/19 01/06/19 07:36 09:24 09:26 Temperature 98.1 F Pulse Rate 68 97 H 99 H Respiratory 20 Rate Blood Pressure 134/84 Blood Pressure [Right] O2 Sat by Pulse 97 Oximetry 01/06/19 11:30 Temperature 97.9 F Pulse Rate 80 Respiratory 20 Rate Blood Pressure 103/66 Blood Pressure [Right] O2 Sat by Pulse 98 Oximetry General appearance: Present: no acute distress - EENT Eyes: PERRL, EOM intact ENT: hearing intact - Respiratory Respiratory effort: normal - Gastrointestinal General gastrointestinal: Present: soft, other (Mildly tender at G-tube site) - Labs CBC & Chem 7: 01/03/19 21:30 01/03/19 21:30 Labs: Abnormal lab results 01/05/19 Range/Units 21:14 POC Glucose 120 H (70-105) Medications & Allergies - Medications Allergies/Adverse Reactions: Allergies cephalexin monohydrate [From Keflex] Adverse Reaction (Verified 12/23/18 14:22) Shakes lidocaine Adverse Reaction (Verified 12/23/18 14:22) "Skin Yellowing" mushrooms Allergy (Uncoded 12/23/18 14:22) Anaphylaxis Home Medications: Home Medications Medication Instructions Recorded Confirmed Last Taken Type Magnesium Oxide 400 mg PO DAILY 08/31/16 01/04/19 12/26/18 History Carvedilol [Coreg] 25 mg PO BID #60 tablet 06/10/17 01/04/19 12/26/18 Rx Insulin Glargine,Hum.rec.anlog 20 unit SQ HS 09/29/18 01/04/19 12/26/18 History [Lantus] Allopurinol [Zyloprim] 100 mg PO BID tablet 11/20/18 01/04/19 12/26/18 Rx Ferrous Sulfate [Feosol 325 MG tab] 325 mg PO BID tablet 11/20/18 01/04/19 12/26/18 Rx Lisinopril [Zestril TAB] 2.5 mg PO BID tablet 11/20/18 01/04/19 12/26/18 Rx Digoxin [Lanoxin] 0.125 mg PO DAILY 12/10/18 01/04/19 12/26/18 History Gabapentin [Neurontin] 300 mg PO DAILY 12/10/18 01/04/19 12/26/18 History Omeprazole 20 mg PO DAILY 12/10/18 01/04/19 12/26/18 History glipiZIDE [Glipizide] 10 mg PO DAILY 12/10/18 01/04/19 12/26/18 History Aspirin [Aspirin BABY CHEW TAB] 81 mg PO QDAY 12/20/18 01/04/19 12/26/18 History Potassium Chloride [Klor-Con M20] 20 meq PO BID 12/20/18 01/04/19 12/26/18 History Tizanidine HCl [Zanaflex] 4 mg PO BID 12/23/18 01/04/19 12/26/18 History Oxycodone HCl/Acetaminophen 1 each PO Q6HR PRN #20 tablet 12/24/18 01/04/19 12/26/18 Rx [Percocet 7.5/325 mg] Morphine ER [Ms Contin ER] 30 mg PO Q12HR #30 tablet 01/06/19 Unknown Rx Rivaroxaban [Xarelto] 20 mg PO QDAY #30 tablet 01/06/19 Unknown Rx Active Medications: Generic Name Dose Route Start Last Admin Trade Name Freq PRN Reason Stop Dose Admin Acetaminophen 650 mg 01/03/19 22:31 Tylenol PO Q4H PRN Headache Carvedilol 6.25 mg 01/05/19 14:00 01/06/19 09:24 Coreg PO 6.25 mg BID ROBERT Administration Hydromorphone HCl 0.5 mg 01/03/19 22:30 01/06/19 11:25 Dilaudid IV 0.5 mg Q4H PRN Administration Pain , Severe (7-10) Lisinopril 2.5 mg 01/05/19 14:00 01/06/19 09:26 Zestril PO 2.5 mg QDAY [facility] Administration Morphine Sulfate 30 mg 01/05/19 16:00 01/06/19 09:25 Ms Contin Er PO 30 mg Q12HR ROBERT Administration Nitroglycerin 0.5 inch 01/04/19 06:00 01/06/19 09:26 Nitro-Bid 2% TP 0.5 inch QIDNTG [facility] Administration Protocol Ondansetron HCl 4 mg 01/03/19 22:32 01/06/19 11:41 Zofran IV 4 mg Q8H PRN Administration Nausea And Vomiting Pantoprazole Sodium 40 mg 01/05/19 14:00 01/06/19 09:24 Protonix PO 40 mg QDAY ROBERT Administration Rivaroxaban 20 mg 01/07/19 10:00 Xarelto PO QDAY [facility] Protocol
[2019-01-06 15:49] VITALS: BP 118/79
[2019-01-07] MEDS ORDERED: XARELTO PO SCH (10:00)
== END 2019-01-06 19:40 | disposition home or self-care (01) | DRG 393 ==
LOC: ED 20:07 → 4A 22:19
PROVIDERS: ADMIT Internal Medicine; ATTEND Internal Medicine
DX: K94.23 Gastrostomy malfunction (principal); J96.01 Acute respiratory failure with hypoxia; J44.1 Chronic obstructive pulmonary disease with (acute) exacerbation; I50.9 Heart failure, unspecified; C15.9 Malignant neoplasm of esophagus, unspecified; I42.8 Other cardiomyopathies; I48.0 Paroxysmal atrial fibrillation; I42.0 Dilated cardiomyopathy; I25.10 Atherosclerotic heart disease of native coronary artery without angina pectoris; I27.20 Pulmonary hypertension, unspecified; I11.0 Hypertensive heart disease with heart failure; E11.9 Type 2 diabetes mellitus without complications; G47.33 Obstructive sleep apnea (adult) (pediatric); M19.90 Unspecified osteoarthritis, unspecified site; Y83.8 Other surgical procedures as the cause of abnormal reaction of the patient, or of later complication, without mention of misadventure at the time of the procedure; D64.9 Anemia, unspecified; E86.0 Dehydration; Z79.899 Other long term (current) drug therapy; Z79.4 Long term (current) use of insulin; Z79.82 Long term (current) use of aspirin; Z86.718 Personal history of other venous thrombosis and embolism; Z91.018 Allergy to other foods; Z79.01 Long term (current) use of anticoagulants; Z95.810 Presence of automatic (implantable) cardiac defibrillator; Z99.81 Dependence on supplemental oxygen; Y92.89 Other specified places as the place of occurrence of the external cause; Z86.711 Personal history of pulmonary embolism; Z98.84 Bariatric surgery status; Z90.49 Acquired absence of other specified parts of digestive tract
CPT/HCPCS: 36415; 71045; 80048; 80053; 82550; 82553; 82962; 83880; 84484; 85025; 93005; 93010; 94760; 96374; 96375; G0378; J1170; J1644; J2405; J2785

== ENCOUNTER 2019-01-19 21:22 | Emergency (ER) | payer MEDICAID ==
--- NOTE | 2019-01-19 21:36 | Emergency Department Report ---
ED Chest Pain HPI - General Stated Complaint: CHEST PAIN Time Seen by Provider: 01/19/19 21:26 - History of Present Illness Initial Comments: Mr. Carmona is a 48 yo male with hx of esophageal cancer, CHF, COPD, DM who presents with chest pain. "My esophagus is acting up. My pacemaker went off." He understands that he has chronic pain. He took his last Percocet 10 tab today. He desires dilaudid. 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 Pain has been constant over the past months. Daily chest pain. No vomiting. He has had home dilaudid in the past. MD Complaint: chest pain -: Gradual, month(s) (several) Onset: during rest Pain Location: substernal Pain Radiation: none Severity: moderate Quality: aching, sharp Consistency: constant Improves With: nothing Worsens With: nothing Context: recent illness re: denies: dyspnea - Related Data Home Medications Medication Instructions Recorded Confirmed Last Taken Magnesium Oxide 400 mg PO DAILY 08/31/16 01/04/19 12/26/18 Insulin Glargine,Hum.rec.anlog 20 unit SQ HS 09/29/18 01/04/19 12/26/18 [Lantus] Digoxin [Lanoxin] 0.125 mg PO DAILY 12/10/18 01/04/19 12/26/18 Gabapentin [Neurontin] 300 mg PO DAILY 12/10/18 01/04/19 12/26/18 Omeprazole 20 mg PO DAILY 12/10/18 01/04/19 12/26/18 glipiZIDE [Glipizide] 10 mg PO DAILY 12/10/18 01/04/19 12/26/18 Aspirin [Aspirin BABY CHEW TAB] 81 mg PO QDAY 12/20/18 01/04/19 12/26/18 Potassium Chloride [Klor-Con M20] 20 meq PO BID 12/20/18 01/04/19 12/26/18 Tizanidine HCl [Zanaflex] 4 mg PO BID 12/23/18 01/04/19 12/26/18 Demadex 01/09/19 Unknown Previous Rx's Medication Instructions Recorded Last Taken Type Carvedilol [Coreg] 25 mg PO BID #60 tablet 06/10/17 12/26/18 Rx Allopurinol [Zyloprim] 100 mg PO BID tablet 11/20/18 12/26/18 Rx Ferrous Sulfate [Feosol 325 MG tab] 325 mg PO BID tablet 11/20/18 12/26/18 Rx Lisinopril [Zestril TAB] 2.5 mg PO BID tablet 11/20/18 12/26/18 Rx Oxycodone HCl/Acetaminophen 1 each PO Q6HR PRN #20 tablet 12/24/18 12/26/18 Rx [Percocet 7.5/325 mg] Hydromorphone HCl [Dilaudid] 4 mg PO Q12HR PRN #20 tablet 01/06/19 Unknown Rx Rivaroxaban [Xarelto] 20 mg PO QDAY #30 tablet 01/06/19 Unknown Rx Carvedilol [Coreg] 12.5 mg PO BID #60 tablet 01/09/19 Unknown Rx Allergies Allergy/AdvReac Type Severity Reaction Status Date / Time cephalexin monohydrate AdvReac Shakes Verified 12/23/18 14:22 [From Keflex] lidocaine AdvReac "Skin Verified 12/23/18 14:22 Yellowing" mushrooms Allergy Anaphylaxis Uncoded 12/23/18 14:22 Heart Score - HEART Score History: Slightly suspicious EKG: Normal Age: 45-65 Risk factors: > 3 risk factors or hx of atherosclerotic disease Troponin: < normal limit HEART Score: 3 ED Review of Systems ROS: Stated complaint: CHEST PAIN Other details as noted in HPI Comment: All other systems reviewed and negative Constitutional: denies: fever, malaise Respiratory: denies: cough Cardiovascular: chest pain ED Past Medical Hx - Past Medical History Previous Medical History?: Yes Hx Hypertension: Yes Hx Heart Attack/AMI: No Hx Congestive Heart Failure: Yes Hx Diabetes: Yes Hx Deep Vein Thrombosis: Yes Hx Pulmonary Embolism: Yes Hx Liver Disease: No Hx Renal Disease: Yes Hx Sickle Cell Disease: No Hx Arthritis: Yes (gout) Hx Asthma: Yes Hx COPD: Yes (uses CPAP) Hx Tuberculosis: No Hx HIV: No Additional medical history: sleep apnea. anemia. severe pulmonary HTN. atrial fibrillation treated with cardioversion 11/2017. Hx of VT/VF;. esophageal varices - Surgical History Hx Coronary Stent: No Hx Pacemaker: Yes Hx Internal Defibrillator: Yes Hx Cholecystectomy: Yes Additional Surgical History: defibrillator, pacemaker; bands in stomach., GI tube left - Social History Smoking Status: Former Smoker Substance Use Type: None - Medications Home Medications: Home Medications Medication Instructions Recorded Confirmed Last Taken Type Magnesium Oxide 400 mg PO DAILY 08/31/16 01/04/19 12/26/18 History Carvedilol [Coreg] 25 mg PO BID #60 tablet 06/10/17 01/04/19 12/26/18 Rx Insulin Glargine,Hum.rec.anlog 20 unit SQ HS 09/29/18 01/04/19 12/26/18 History [Lantus] Allopurinol [Zyloprim] 100 mg PO BID tablet 11/20/18 01/04/19 12/26/18 Rx Ferrous Sulfate [Feosol 325 MG tab] 325 mg PO BID tablet 11/20/18 01/04/19 12/26/18 Rx Lisinopril [Zestril TAB] 2.5 mg PO BID tablet 11/20/18 01/04/19 12/26/18 Rx Digoxin [Lanoxin] 0.125 mg PO DAILY 12/10/18 01/04/19 12/26/18 History Gabapentin [Neurontin] 300 mg PO DAILY 12/10/18 01/04/19 12/26/18 History Omeprazole 20 mg PO DAILY 12/10/18 01/04/19 12/26/18 History glipiZIDE [Glipizide] 10 mg PO DAILY 12/10/18 01/04/19 12/26/18 History Aspirin [Aspirin BABY CHEW TAB] 81 mg PO QDAY 12/20/18 01/04/19 12/26/18 History Potassium Chloride [Klor-Con M20] 20 meq PO BID 12/20/18 01/04/19 12/26/18 History Tizanidine HCl [Zanaflex] 4 mg PO BID 12/23/18 01/04/19 12/26/18 History Oxycodone HCl/Acetaminophen 1 each PO Q6HR PRN #20 tablet 12/24/18 01/04/19 12/26/18 Rx [Percocet 7.5/325 mg] Hydromorphone HCl [Dilaudid] 4 mg PO Q12HR PRN #20 tablet 01/06/19 Unknown Rx Rivaroxaban [Xarelto] 20 mg PO QDAY #30 tablet 01/06/19 Unknown Rx Carvedilol [Coreg] 12.5 mg PO BID #60 tablet 01/09/19 Unknown Rx Demadex 01/09/19 Unknown History ED Physical Exam - General General appearance: alert, in no apparent distress - Head Head exam: Present: atraumatic, normocephalic - Eye Eye exam: Present: normal appearance - ENT ENT exam: Present: mucous membranes moist - Neck Neck exam: Present: normal inspection, full ROM - Respiratory Respiratory exam: Present: normal lung sounds bilaterally. Absent: respiratory distress, wheezes, rales, rhonchi - Cardiovascular Cardiovascular Exam: Present: regular rate, normal rhythm, normal heart sounds. Absent: systolic murmur, diastolic murmur, rubs, gallop - GI/Abdominal GI/Abdominal exam: Present: soft, normal bowel sounds. Absent: distended, tenderness, guarding, rebound - Rectal Rectal exam: Present: deferred - Extremities Exam Extremities exam: Present: normal inspection - Back Exam Back exam: Present: normal inspection - Neurological Exam Neurological exam: Present: alert, oriented X3 - Psychiatric Psychiatric exam: Present: normal affect, normal mood - Skin Skin exam: Present: warm, dry, intact, normal color. Absent: rash ED Course Vital Signs 01/19/19 21:33 Temperature 97.5 F L Pulse Rate 90 Respiratory 14 Rate Blood Pressure 118/76 Blood Pressure 118/76 [Left] O2 Sat by Pulse 99 Oximetry MARTHA score - Martha Score Age > 65: (0) No Aspirin use within the Past 7 Days: (1) Yes 3 or more CAD Risk Factors: (1) Yes 2 or more Angina events in past 24 hrs: (0) No Known CAD with more than 50% Stenosis: (0) No Elevated Cardiac Markers: (0) No ST Deviation Greater than 0.5mm: (0) No MARTHA Score: 2 ED Medical Decision Making - Lab Data Result diagrams: 01/19/19 Unknown 01/19/19 Unknown - EKG Data 01/19/19 21:36 EKG obtained 2130 Ventricular pacing rate 90 beats a minute normal axis widened paced QRS no significant ST elevation - Medical Decision Making Mr. Carmona has had several ED encounters and admissions for chest pain, multifactorial including malignancy, GERD, esophagitis. According to recent cardiac catheterization, coronary arteries are mostly normal with a nonobstruc tive 30% LAD lesion. I do not suspect acute emergent causes of chest pain such as PE, dissection. Mr. Carmona was given IV and PO medication to address pain in ED. 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 The pain specialist focuses on chronic back pain. Discharged home in stable condition. CBC chemistry troponin levels all within acceptable limits. X-ray EKG unremarkable Critical care attestation.: If time is entered above; I have spent that time in minutes in the direct care of this critically ill patient, excluding procedure time. ED Disposition Clinical Impression: Recurrent chest pain, Esophageal cancer, Chronic pain, Atypical chest pain Disposition: DC-01 TO HOME OR SELFCARE Is pt being admited?: No Does the pt Need Aspirin: No Condition: Stable Instructions: Chest Pain (ED) Additional Instructions: Please see your oncologist and pain specialist as soon as possible.
[2019-01-19] MEDS ORDERED: ZOFRAN ODT PO ONE (21:42)
[2019-01-19] MEDS ORDERED: PERCOCET 5/325 PO ONE ×2 (21:42→23:01)
[2019-01-19] MEDS ORDERED: MORPHINE IV ONE (21:42)
[2019-01-19 21:58] LABS: Basophils % (Auto) 0.4 % (0.0-1.8); Eosinophils # (Auto) 0.1 K/mm3 (0.0-0.4); Eosinophils % (Auto) 0.7 % (0.0-4.3); Hematocrit 31.2 % (35.5-45.6); Lymphocytes # (Auto) 0.4 K/mm3 (1.2-5.4); Lymphocytes % (Auto) 4.2 % (13.4-35.0); Mean Corpuscular HGB Conc 32 % (32-34); Mean Corpuscular Volume 78 fl (84-94); Monocytes # (Auto) 0.9 K/mm3 (0.0-0.8); Monocytes % (Auto) 9.5 % (0.0-7.3); Platelet Count 237 K/mm3 (140-440); Red Blood Count 4.01 M/mm3 (3.65-5.03)
[2019-01-19 22:00] LABS: Red Cell Distribution Width 20.5 % (13.2-15.2)
[2019-01-19 22:16] LABS: BUN/Creatinine Ratio 12; Blood Urea Nitrogen 13 mg/dL (9-20); Calcium 10.2 mg/dL (8.4-10.2); Hemolysis Index 5
--- NOTE | 2019-01-19 22:20 | XRay Report ---
PROCEDURE: XR CHEST 1V AP TECHNIQUE: Chest radiograph single view. HISTORY: Chest Pain COMPARISONS: 01/03/2019 . FINDINGS: Limited study due to suboptimal inspiration Heart: Mild cardiomegaly is noted. Mediastinum/Vessels: Normal. Lungs/Pleural space: Normal. Bony thorax: No acute osseous abnormality. Life support devices: A tripolar cardiac device is noted on the left side with its leads in place. A right-sided chest port is noted with its catheter terminating at the level of mid superior vena cava. IMPRESSION: No acute cardiopulmonary abnormality. This document is electronically signed by Tha Lujan MD., January 19 2019 10:18:34 PM ET
[2019-01-19 23:03] VITALS: BP 117/73
== END 2019-01-19 23:15 | disposition home or self-care (01) ==
LOC: ED 21:22
DX: R07.89 Other chest pain (principal); G89.29 Other chronic pain; I11.0 Hypertensive heart disease with heart failure; I50.9 Heart failure, unspecified; E11.9 Type 2 diabetes mellitus without complications; J44.9 Chronic obstructive pulmonary disease, unspecified; I48.91 Unspecified atrial fibrillation; Z88.1 Allergy status to other antibiotic agents; Z85.01 Personal history of malignant neoplasm of esophagus; Z91.018 Allergy to other foods
CPT/HCPCS: 36415; 71045; 80048; 84484; 85025; 93005; 93010; 96374; 99285; J2270; Q0162

== ENCOUNTER 2019-01-22 00:53 | Inpatient (IN) | payer MEDICAID ==
[2019-01-22] MEDS ORDERED: ZOFRAN IV ONE (02:21)
[2019-01-22] MEDS ORDERED: PEPCID IV ONE (02:21)
[2019-01-22] MEDS ORDERED: SUBLIMAZE IV ONE ×2 (02:21→04:00)
--- NOTE | 2019-01-22 02:28 | Emergency Department Report ---
HPI - General Chief Complaint: Abdominal Pain Time Seen by Provider: 01/22/19 02:14 - HPI HPI: Room 7 The patient is a 48-year-old male presented with a chief complaint of chest pain. The patient states today he developed pain in his chest and upper abdomen described as stabbing in nature. Patient admits to shortness of breath, nausea/vomiting and diaphoresis with his chest pain. Patient currently gives his chest pain a score of 10/10 Location: [See above] Duration: [See above] Quality: Stabbing Severity: [See above] Modifying factors: [see above] Context: [see above] Mode of transportation: [not driving] ED Past Medical Hx - Past Medical History Previous Medical History?: Yes Hx Hypertension: Yes Hx Congestive Heart Failure: Yes Hx Diabetes: Yes Hx Deep Vein Thrombosis: Yes Hx Pulmonary Embolism: Yes Hx Renal Disease: Yes Hx Arthritis: Yes (gout) Hx Asthma: Yes Hx COPD: Yes (uses CPAP) Additional medical history: sleep apnea. anemia. severe pulmonary HTN. atrial fibrillation treated with cardioversion 11/2017. Hx of VT/VF;. esophageal varices - Surgical History Past Surgical History?: Yes Hx Pacemaker: Yes Hx Internal Defibrillator: Yes Hx Cholecystectomy: Yes Additional Surgical History: defibrillator, pacemaker; bands in stomach., GI t ube left - Family History Family history: no significant - Social History Smoking Status: Former Smoker (none 1 week) Substance Use Type: None (denies illicit drug use) - Medications Home Medications: Home Medications Medication Instructions Recorded Confirmed Last Taken Type Magnesium Oxide 400 mg PO DAILY 08/31/16 01/04/19 12/26/18 History Carvedilol [Coreg] 25 mg PO BID #60 tablet 06/10/17 01/04/19 12/26/18 Rx Insulin Glargine,Hum.rec.anlog 20 unit SQ HS 09/29/18 01/04/19 12/26/18 History [Lantus] Allopurinol [Zyloprim] 100 mg PO BID tablet 11/20/18 01/04/19 12/26/18 Rx Ferrous Sulfate [Feosol 325 MG tab] 325 mg PO BID tablet 11/20/18 01/04/19 12/26/18 Rx Lisinopril [Zestril TAB] 2.5 mg PO BID tablet 11/20/18 01/04/19 12/26/18 Rx Digoxin [Lanoxin] 0.125 mg PO DAILY 12/10/18 01/04/19 12/26/18 History Gabapentin [Neurontin] 300 mg PO DAILY 12/10/18 01/04/19 12/26/18 History Omeprazole 20 mg PO DAILY 12/10/18 01/04/19 12/26/18 History glipiZIDE [Glipizide] 10 mg PO DAILY 12/10/18 01/04/19 12/26/18 History Aspirin [Aspirin BABY CHEW TAB] 81 mg PO QDAY 12/20/18 01/04/19 12/26/18 History Potassium Chloride [Klor-Con M20] 20 meq PO BID 12/20/18 01/04/19 12/26/18 History Tizanidine HCl [Zanaflex] 4 mg PO BID 12/23/18 01/04/19 12/26/18 History Oxycodone HCl/Acetaminophen 1 each PO Q6HR PRN #20 tablet 12/24/18 01/04/19 12/26/18 Rx [Percocet 7.5/325 mg] Hydromorphone HCl [Dilaudid] 4 mg PO Q12HR PRN #20 tablet 01/06/19 Unknown Rx Rivaroxaban [Xarelto] 20 mg PO QDAY #30 tablet 01/06/19 Unknown Rx Carvedilol [Coreg] 12.5 mg PO BID #60 tablet 01/09/19 Unknown Rx Demadex 01/09/19 Unknown History ED Review of Systems ROS: Stated complaint: ABDOMINAL PAIN/VOMITING BLOOD Other details as noted in HPI Constitutional: diaphoresis Eyes: denies: eye pain ENT: denies: throat pain Respiratory: shortness of breath Cardiovascular: chest pain Endocrine: no symptoms reported Gastrointestinal: abdominal pain, nausea, vomiting Genitourinary: denies: dysuria Musculoskeletal: denies: back pain Neurological: denies: headache Physical Exam - Physical Exam Vital Signs: Vital Signs 01/22/19 02:15 Temperature 98.2 F Pulse Rate 96 H Respiratory 18 Rate Blood Pressure 110/80 O2 Sat by Pulse 99 Oximetry Physical Exam: GENERAL: The patient is well-developed well-nourished male lying on stretcher not appearing to be in acute distress. [] HEENT: Normocephalic. Atraumatic. Extraocular motions are intact. Patient has moist mucous membranes. NECK: Supple. Trachea midline CHEST/LUNGS: Clear to auscultation. There is no respiratory distress noted. HEART/CARDIOVASCULAR: Regular. There is no tachycardia. There is no gallop rub or murmur. ABDOMEN: Abdomen is soft, with mild discomfort to palpation in the midepigastric region. Patient has normal bowel sounds. There is no abdominal distention. SKIN: There is no rash. There is no edema. There is no diaphoresis. NEURO: The patient is awake, alert, and oriented. The patient is cooperative. The patient has normal speech MUSCULOSKELETAL: There is no evidence of acute injury. ED Course Vital Signs 01/22/19 02:15 Temperature 98.2 F Pulse Rate 96 H Respiratory 18 Rate Blood Pressure 110/80 O2 Sat by Pulse 99 Oximetry ED Medical Decision Making - Lab Data Result diagrams: 01/22/19 02:38 01/22/19 02:38 Laboratory Tests 01/22/19 01/22/19 01/22/19 02:38 02:38 02:38 WBC 8.2 RBC 3.50 L Hgb 8.5 L Hct 27.1 L MCV 77 L MCH 24 L MCHC 32 RDW 20.1 H Plt Count 215 Lymph % (Auto) 8.4 L [place] % (Auto) 10.2 H Eos % (Auto) 1.1 Baso % (Auto) 0.7 Lymph # 0.7 L [place] # 0.8 Eos # 0.1 Baso # 0.1 Seg Neutrophils % 79.6 H Seg Neutrophils # 6.5 PT 15.4 H INR 1.15 H APTT 31.5 Sodium 134 L Potassium 3.4 L Chloride 89.5 L Carbon Dioxide 33 H Anion Gap 15 BUN 14 Creatinine 1.1 Estimated GFR > 60 BUN/Creatinine Ratio 13 Glucose 114 H Calcium 9.6 Total Bilirubin 1.40 H AST 13 ALT 8 Alkaline Phosphatase 58 Total Creatine Kinase 22 L CK-MB (CK-2) < 1.0 CK-MB (CK-2) Rel Index 4.5 H Troponin T < 0.010 Total Protein 6.4 Albumin 2.9 L Albumin/Globulin Ratio 0.8 Lipase 8 L - EKG Data Rate: normal (90 bpm) - EKG Data When compared to previous EKG there are: no significant change Interpretation: unchanged when compared t (01/03/2019), other (ventricularly paced rhythm) - Radiology Data Radiology results: report reviewed (CT chest, CT abdomen and pelvis), image reviewed (CT chest, CT abdomen and pelvis) [facility] [address] [place] [address] Cat Scan Report Signed Patient: ANGELES ALARCON MR#: [id number] : 1970 Acct:[id number] Age/Sex: 48 / M ADM Date: 01/22/19 Loc: ED Attending Dr: Ordering Physician: KOBI BROOKS MD Date of Service: 01/22/19 Procedure(s): CT angio chest Accession Number(s): [id number] cc: KOBI BROOKS MD PROCEDURE: CT ANGIOGRAM OF THE CHEST FOR PULMONARY EMBOLISM TECHNIQUE: Computerized axial tomographic angiography of the chest and pulmonary arteries was performed after the IV injection of iodinated nonionic contrast. The image data was postprocessed using maximum intensity projection (MIP) and 2- dimensional multiplanar reformatted (MPR) techniques. The examination is specifically tailored to the evaluation of the pulmonary arteries per clinical request. Automated exposure control, adjustment of mA and/or kV according to patient size, or iterative reconstruction dose optimization techniques were utilized. CPT G9637, 37246 HISTORY: Shortness of breath R06.02, chest pain unspecified R07.9 , COMPARISONS: None . FINDINGS: Heart and pericardium: The heart is enlarged.. Thoracic aorta: Normal. Pulmonary vasculature: There are pulmonary emboli in the distal basilar branches bilaterally.. Lymph nodes: No enlarged thoracic lymph nodes. Lungs: There are multifocal bilateral basilar in filtrates versus early lung infarctions.. Pleural space: No effusion, thickening, or pneumothorax. Musculoskeletal structures: No significant abnormality. Upper abdominal structures: No significant abnormality. IMPRESSION: The heart is enlarged.. There are pulmonary emboli in the distal basilar bran ches bilaterally.. There are multifocal bilateral basilar infiltrates versus early lung infarctions... Dr. Brooks was notified by telephone at 3:40 AM central time. This document is electronically signed by Camilo Bartholomew MD., January 22 2019 04:55:08 AM ET Transcribed By: CO Dictated By: CAMILO BARTHOLOMEW MD Electronically Authenticated By: CAMILO BARTHOLOMEW MD Signed Date/Time: 01/22/19 0456 DD/ 0243 TD/TT: 01/22/19 0440 [facility] [address] [place] [address] Cat Scan Report Signed Patient: ANGELES ALARCON MR#: [id number] : 1970 Acct:[id number] Age/Sex: 48 / M ADM Date: 01/22/19 Loc: ED Attending Dr: Ordering Physician: KOBI BROOKS MD Date of Service: 01/22/19 Procedure(s): CT abdomen pelvis w con Accession Number(s): [id number] cc: KOBI BROOKS MD PROCEDURE: CT ABDOMEN PELVIS W CON TECHNIQUE: Routine axial imaging was obtained of the abdomen and pelvis following the intravenous injection of iodinated contrast. Delayed imaging was obtained of the kidneys ureters and bladder. Sagittal and coronal reconstructions were reviewed. HISTORY: epigastric abdominal pain COMPARISONS: 12/27/2018 FINDINGS: Images through the lung bases reveal a moderate to large hiatal hernia. The heart is enlarged. There is vascular congestion along with nodular infiltrates in both lower lobes. Pleural fluid is not seen. The gallbladder has been removed. Biliary tree appears normal. The liver and pancreas are unremarkable. The spleen is normal in size. The adrenal glands appear normal. There is stable cortical cysts in the left kidney. There is no evidence of hydronephrosis bilaterally. The bowel loops are normal in caliber and course. The appendix is not enlarged. There is a small umbilical hernia containing omental fat. In the pelvis the prostate gland is mildly enlarged. The bladder appears normal. The skeletal structures reveal hardware in the right acetabulum. The soft tissues reveal a stable subcutaneous mass overlying the lower lumbar spine measuring 7 x 7 x 8 cm in dimension. IMPRE SSION: Cholecystectomy. No acute process in the abdomen and pelvis. Stable benign cysts in the left kidney. Stable umbilical hernia containing omental fat. Pulmonary congestion with patchy nodular infiltrates in both lower lobes. Moderate to large hiatal hernia. Post surgical changes in the right acetabulum. Stable subcutaneous mass overlying the dorsal aspect of the lower lumbar spine.. This document is electronically signed by Reddy Florez MD., January 22 2019 05:05:43 AM ET Transcribed By: RB Dictated By: REDDY FLOREZ MD Electronically Authenticated By: REDDY FLOREZ MD Signed Date/Time: 01/22/19 0507 DD/ 2 TD/TT: 01/22/19452 - Differential Diagnosis ACS, PE, pericarditis, GERD, esophageal CA Critical care attestation.: If time is entered above; I have spent that time in minutes in the direct care of this critically ill patient, excluding procedure time. ED Disposition Clinical Impression: Chest pain, Pulmonary embolus Disposition: OP ADMIT IP TO THIS HOSP Is pt being admited?: Yes Does the pt Need Aspirin: No Condition: Fair Instructions: Chest Pain (ED) Referrals: DANIELLE MONTERROSO MD [Staff Physician] - 3-5 Days Time of Disposition: 05:10 (hospitalist paged (Dr Mcfarlane))
[2019-01-22 03:00] LABS: Basophils # (Auto) 0.1 K/mm3 (0.0-0.1); Basophils % (Auto) 0.7 % (0.0-1.8); Eosinophils # (Auto) 0.1 K/mm3 (0.0-0.4); Eosinophils % (Auto) 1.1 % (0.0-4.3); Hematocrit 27.1 % (35.5-45.6); Hemoglobin 8.5 gm/dl (11.8-15.2); Lymphocytes # (Auto) 0.7 K/mm3 (1.2-5.4); Lymphocytes % (Auto) 8.4 % (13.4-35.0); Mean Corpuscular HGB Conc 32 % (32-34); Mean Corpuscular Volume 77 fl (84-94); Monocytes # (Auto) 0.8 K/mm3 (0.0-0.8); Monocytes % (Auto) 10.2 % (0.0-7.3); Platelet Count 215 K/mm3 (140-440)
[2019-01-22 03:01] LABS: Red Cell Distribution Width 20.1 % (13.2-15.2)
[2019-01-22 03:09] LABS: INR 1.15 (0.87-1.13)
[2019-01-22 03:10] LABS: Partial Thromboplastin Time 31.5 Sec. (24.2-36.6)
[2019-01-22 03:24] LABS: Alanine Aminotransferase 8 units/L (7-56); Albumin 2.9 g/dL (3.9-5); BUN/Creatinine Ratio 13; Blood Urea Nitrogen 14 mg/dL (9-20); Calcium 9.6 mg/dL (8.4-10.2); Hemolysis Index 24
[2019-01-22 03:27] LABS: Creatine Kinase MB < 1.0 ng/mL (0.0-4.0)
[2019-01-22] MEDS ORDERED: LOVENOX SUB-Q ONE (04:41)
--- NOTE | 2019-01-22 04:56 | Cat Scan Report ---
PROCEDURE: CT ANGIOGRAM OF THE CHEST FOR PULMONARY EMBOLISM TECHNIQUE: Computerized axial tomographic angiography of the chest and pulmonary arteries was perfor med after the IV injection of iodinated nonionic contrast. The image data was postprocessed using max imum intensity projection (MIP) and 2-dimensional multiplanar reformatted (MPR) techniques. The exami nation is specifically tailored to the evaluation of the pulmonary arteries per clinical request. Au tomated exposure control, adjustment of mA and/or kV according to patient size, or iterative reconstr uction dose optimization techniques were utilized. CPT G9637, 40475 HISTORY: Shortness of breath R06.02, chest pain unspecified R07.9 , COMPARISONS: None . FINDINGS: Heart and pericardium: The heart is enlarged.. Thoracic aorta: Normal. Pulmonary vasculature: There are pulmonary emboli in the distal basilar branches bilaterally.. Lymph nodes: No enlarged thoracic lymph nodes. Lungs: There are multifocal bilateral basilar infiltrates versus early lung infarctions.. Pleural space: No effusion, thickening, or pneumothorax. Musculoskeletal structures: No significant abnormality. Upper abdominal structures: No significant abnormality. IMPRESSION: The heart is enlarged.. There are pulmonary emboli in the distal basilar branches bilaterally.. There are multifocal bilateral basilar infiltrates versus early lung infarctions... Dr. Nice was notified by telephone at 3:40 AM central time. This document is electronically signed by Camilo Millan MD., January 22 2019 04:55:08 AM ET
--- NOTE | 2019-01-22 05:07 | Cat Scan Report ---
PROCEDURE: CT ABDOMEN PELVIS W CON TECHNIQUE: Routine axial imaging was obtained of the abdomen and pelvis following the intravenous in jection of iodinated contrast. Delayed imaging was obtained of the kidneys ureters and bladder. Sagit eva and coronal reconstructions were reviewed. HISTORY: epigastric abdominal pain COMPARISONS: 12/27/2018 FINDINGS: Images through the lung bases reveal a moderate to large hiatal hernia. The heart is enlarged. There is vascular congestion along with nodular infiltrates in both lower lobes. Pleural fluid is not seen. The gallbladder has been removed. Biliary tree appears normal. The liver and pancreas are unremarkabl e. The spleen is normal in size. The adrenal glands appear normal. There is stable cortical cysts in the left kidney. There is no evidence of hydronephrosis bilaterally. The bowel loops are normal in ca liber and course. The appendix is not enlarged. There is a small umbilical hernia containing omental fat. In the pelvis the prostate gland is mildly enlarged. The bladder appears normal. The skeletal st ructures reveal hardware in the right acetabulum. The soft tissues reveal a stable subcutaneous mass overlying the lower lumbar spine measuring 7 x 7 x 8 cm in dimension. IMPRESSION: Cholecystectomy. No acute process in the abdomen and pelvis. Stable benign cysts in the left kidney. Stable umbilical hernia containing omental fat. Pulmonary congestion with patchy nodular infiltrates in both lower lobes. Moderate to large hiatal hernia. Post surgical changes in the right acetabulum. Stable subcutaneous mass overlying the dorsal aspect of the lower lumbar spine.. This document is electronically signed by Bernard Florez MD., January 22 2019 05:05:43 AM ET
[2019-01-22] MEDS ORDERED: TYLENOL PO PRN (05:32)
[2019-01-22] MEDS ORDERED: HEPARIN SUB-Q SCH (06:00)
--- NOTE | 2019-01-22 06:16 | History and Physical Report ---
History of Present Illness Date of examination: 01/22/19 Date of admission: 01/22/2019 Chief complaint: chest pain History of present illness: Patient is a 48-year-old male with PMHx of esophageal CA diagnosed in September 2018, currently receiving chemotherapy which was started a month ago, last was 2 weeks ago, recurrent PE on Xarelto, CHF, COPD, GERD, gout, anemia, DM type II, BRITTON on CPAP who presents to the ER with complaining of chest pain started last night around 11:00. Patient states that the pain is located in his chest, patient states the pain is worse with deep breath and associated with this breathing. Patient states that he was at [facility] 2 weeks ago and was diagnosed with PE, he was already on Xarelto for a prior PE. Patient reports a productive cough with yellowish sputum production which is chronic due to esophageal CA. Patient reports that the chest pain is similar to the chest pain he had with his previous PE. Patient c/o frequent cough, severe chest pain, he denies fever, denies chills, denies headache, denies dizziness, denies nausea, denies vomiting. Patient was evaluated in the ER and admitted for acute pain management. Past History Past Medical History: cancer, COPD, diabetes, hypertension, hyperlipidemia Past Surgical History: Other (port insertion) Social history: no significant social history Family history: no significant family history Medications and Allergies Allergies Allergy/AdvReac Type Severity Reaction Status Date / Time cephalexin monohydrate AdvReac Shakes Verified 12/23/18 14:22 [From Keflex] lidocaine AdvReac "Skin Verified 12/23/18 14:22 Yellowing" mushrooms Allergy Anaphylaxis Uncoded 12/23/18 14:22 Home Medications Medication Instructions Recorded Confirmed Last Taken Type Magnesium Oxide 400 mg PO DAILY 08/31/16 01/04/19 12/26/18 History Carvedilol [Coreg] 25 mg PO BID #60 tablet 06/10/17 01/04/19 12/26/18 Rx Insulin Glargine,Hum.rec.anlog 20 unit SQ HS 09/29/18 01/04/19 12/26/18 History [Lantus] Allopurinol [Zyloprim] 100 mg PO BID tablet 11/20/18 01/04/19 12/26/18 Rx Ferrous Sulfate [Feosol 325 MG tab] 325 mg PO BID tablet 11/20/18 01/04/19 12/26/18 Rx Lisinopril [Zestril TAB] 2.5 mg PO BID tablet 11/20/18 01/04/19 12/26/18 Rx Digoxin [Lanoxin] 0.125 mg PO DAILY 12/10/18 01/04/19 12/26/18 History Gabapentin [Neurontin] 300 mg PO DAILY 12/10/18 01/04/19 12/26/18 History Omeprazole 20 mg PO DAILY 12/10/18 01/04/19 12/26/18 History glipiZIDE [Glipizide] 10 mg PO DAILY 12/10/18 01/04/19 12/26/18 History Aspirin [Aspirin BABY CHEW TAB] 81 mg PO QDAY 12/20/18 01/04/19 12/26/18 History Potassium Chloride [Klor-Con M20] 20 meq PO BID 12/20/18 01/04/19 12/26/18 History Tizanidine HCl [Zanaflex] 4 mg PO BID 12/23/18 01/04/19 12/26/18 History Oxycodone HCl/Acetaminophen 1 each PO Q6HR PRN #20 tablet 12/24/18 01/04/19 12/26/18 Rx [Percocet 7.5/325 mg] Hydromorphone HCl [Dilaudid] 4 mg PO Q12HR PRN #20 tablet 01/06/19 Unknown Rx Rivaroxaban [Xarelto] 20 mg PO QDAY #30 tablet 01/06/19 Unknown Rx Carvedilol [Coreg] 12.5 mg PO BID #60 tablet 01/09/19 Unknown Rx Demadex 01/09/19 Unknown History Active Meds: Active Medications Acetaminophen (Tylenol) 650 mg PO Q4H PRN PRN Reason: Pain MILD(1-3)/Fever >100.5/KNIGHT Enoxaparin Sodium (Lovenox) 110 mg SUB-Q Q12H ROBERT Sodium Chloride (Nacl 0.9% 1000 Ml) 1,000 mls @ 75 mls/hr IV DIRECT ROBERT Morphine Sulfate (Morphine) 2 mg IV Q4H PRN PRN Reason: Pain, Moderate (4-6) Ondansetron HCl (Zofran) 4 mg IV Q8H PRN PRN Reason: Nausea And Vomiting Sodium Chloride (Sodium Chloride Flush Syringe 10 Ml) 10 ml IV BID ROBERT Sodium Chloride (Sodium Chloride Flush Syringe 10 Ml) 10 ml IV PRN PRN PRN Reason: LINE FLUSH Review of Systems Ears, nose, mouth and throat: deferred Cardiovascular: chest pain Respiratory: cough, dyspnea on exertion Exam - Constitutional Vitals: Temp Pulse Resp BP Pulse Ox 98.2 F 95 H 15 115/52 98 01/22/19 02:15 01/22/19 06:00 01/22/19 06:00 01/22/19 06:00 01/22/19 06:00 General appearance: Present: no acute distress - EENT Eyes: Present: EOM intact ENT: clear oral mucosa - Neck Neck: Present: normal ROM - Respiratory Respiratory effort: normal Respiratory: bilateral: diminished - Cardiovascular Rhythm: regular Heart Sounds: Present: S1 & S2 - Extremities Extremities: no ischemia Extremity abnormal: edema (trace) Peripheral Pulses: within normal limits - Abdominal Male genitourinary: Present: normal - Rectal Rectal Exam: deferred - Integumentary Integumentary: Present: clear - Musculoskeletal Musculoskeletal: strength equal bilaterally - Psychiatric Psychiatric: cooperative - Neurologic Neurologic: moves all extremities Results - Labs CBC & Chem 7: 01/22/19 02:38 01/22/19 02:38 Labs: Laboratory Last Values WBC 8.2 K/mm3 (4.5-11.0) 01/22/19 02:38 RBC 3.50 M/mm3 (3.65-5.03) L 01/22/19 02:38 Hgb 8.5 gm/dl (11.8-15.2) L 01/22/19 02:38 Hct 27.1 % (35.5-45.6) L 01/22/19 02:38 MCV 77 fl (84-94) L 01/22/19 02:38 MCH 24 pg (28-32) L 01/22/19 02:38 MCHC 32 % (32-34) 01/22/19 02:38 RDW 20.1 % (13.2-15.2) H 01/22/19 02:38 Plt Count 215 K/mm3 (140-440) 01/22/19 02:38 Lymph % (Auto) 8.4 % (13.4-35.0) L 01/22/19 02:38 [place] % (Auto) 10.2 % (0.0-7.3) H 01/22/19 02:38 Eos % (Auto) 1.1 % (0.0-4.3) 01/22/19 02:38 Baso % (Auto) 0.7 % (0.0-1.8) 01/22/19 02:38 Lymph # 0.7 K/mm3 (1.2-5.4) L 01/22/19 02:38 [place] # 0.8 K/mm3 (0.0-0.8) 01/22/19 02:38 Eos # 0.1 K/mm3 (0.0-0.4) 01/22/19 02:38 Baso # 0.1 K/mm3 (0.0-0.1) 01/22/19 02:38 Seg Neutrophils % 79.6 % (40.0-70.0) H 01/22/19 02:38 Seg Neutrophils # 6.5 K/mm3 (1.8-7.7) 01/22/19 02:38 PT 15.4 Sec. (12.2-14.9) H 01/22/19 02:38 INR 1.15 (0.87-1.13) H 01/22/19 02:38 APTT 31.5 Sec. (24.2-36.6) 01/22/19 02:38 Sodium 134 mmol/L (137-145) L 01/22/19 02:38 Potassium 3.4 mmol/L (3.6-5.0) L 01/22/19 02:38 Chloride 89.5 mmol/L (98-107) L 01/22/19 02:38 Carbon Dioxide 33 mmol/L (22-30) H 01/22/19 02:38 Anion Gap 15 mmol/L 01/22/19 02:38 BUN 14 mg/dL (9-20) 01/22/19 02:38 Creatinine 1.1 mg/dL (0.8-1.5) 01/22/19 02:38 Estimated GFR > 60 ml/min 01/22/19 02:38 BUN/Creatinine Ratio 13 % 01/22/19 02:38 Glucose 114 mg/dL (75-100) H 01/22/19 02:38 Calcium 9.6 mg/dL (8.4-10.2) 01/22/19 02:38 Total Bilirubin 1.40 mg/dL (0.1-1.2) H 01/22/19 02:38 AST 13 units/L (5-40) 01/22/19 02:38 ALT 8 units/L (7-56) 01/22/19 02:38 Alkaline Phosphatase 58 units/L (35-129) 01/22/19 02:38 Total Creatine Kinase 22 units/L (55-170) L 01/22/19 02:38 CK-MB (CK-2) < 1.0 ng/mL (0.0-4.0) 01/22/19 02:38 CK-MB (CK-2) Rel Index 4.5 (0-4) H 01/22/19 02:38 Troponin T < 0.010 ng/mL (0.00-0.029) 01/22/19 02:38 Total Protein 6.4 g/dL (6.3-8.2) 01/22/19 02:38 Albumin 2.9 g/dL (3.9-5) L 01/22/19 02:38 Albumin/Globulin Ratio 0.8 % 01/22/19 02:38 Lipase 8 units/L (13-60) L 01/22/19 02:38 Assessment and Plan Assessment and plan: 1. Esophageal CA (dx 09/2018, currently on chemo) last was 2 weeks ago 2. Recurrent PE (on Xarelto) 3. CHF (stable) 4. COPD (stable) 5. GERD 6. Gout (stable) 7. Anemia (H&H at baseline) 8. Hypokalemia 9. DM type2 10. BRITTON on CPAP 11. Dehydration Plan: Admit for good management Morphine 2 mg IV every 4 Continue Xarelto 20 mg by mouth twice a day Continue other home meds Replace potassium IVF for hydration Mucinex PRN for cough Glycemic management protocol with insulin per sliding scale Monitor vital signs and cardiac status CPAP at night as per home Plan of care discussed with patient, voiced understanding Patient's condition and plan of care discussed with Dr. Mcfarlane Advance Directives: Yes VTE prophylaxis?: Chemical Plan of care discussed with patient/family: Yes
[2019-01-22] MEDS ORDERED: NACL 0.9% 1000 ML 1,000 ML ONE (08:50)
[2019-01-22] MEDS ORDERED: MORPHINE ONE (08:50)
[2019-01-22] MEDS: MORPHINE IV PRN ×3 (08:59→20:45)
[2019-01-22] MEDS: NACL 0.9% 1000 ML 1,000 ML IV SCH ×2 (09:01→15:01)
[2019-01-22] MEDS: SODIUM CHLORIDE FLUSH SYRINGE 10 ML IV SCH ×2 (11:03→21:28)
--- NOTE | 2019-01-22 12:53 | Progress Note ---
Assessment and Plan Assessment and plan: Esophageal CA (dx 09/2018, currently on chemo) last was 2 weeks ago. Consult oncology for further evaluation. Pulmonary embolism. Continue Xarelto. Nonischemic cardiomyopathy. Patient has an indwelling cardiac defibrillator. In December 2017, he underwent a cardiac catheterization that revealed no si gnificant coronary artery disease, ejection fraction 15%. History of atrial flutter. He has a history of atrial flutter status post YARELY guided cardioversion. COPD, compensated. Bronchodilators/nebulizers GERD. PPI daily. History of Gout (stable) Anemia of chronic disease. Follow up H&H. Transfuse for hemoglobin less than 7. Hematology consultation pending. Hypokalemia. Replete potassium. DM type2. Accu-Cheks and sliding scale insulin. BRITTON on CPAP. History Interval history: No new issues overnight. Hospitalist Physical - Constitutional Vitals: Temp Pulse Resp BP Pulse Ox 98.2 F 98 H 18 125/89 96 01/22/19 11:36 01/22/19 11:32 01/22/19 11:32 01/22/19 11:32 01/22/19 11:32 General appearance: Present: no acute distress - EENT Eyes: Present: PERRL, EOM intact ENT: hearing intact, clear oral mucosa, dentition normal - Neck Neck: Present: supple, normal ROM - Respiratory Respiratory effort: normal Respiratory: bilateral: CTA - Cardiovascular Rhythm: regular Heart Sounds: Present: S1 & S2. Absent: gallop, rub - Extremities Extremities: no ischemia, No edema, Full ROM - Abdominal General gastrointestinal: soft, non-tender, non-distended, normal bowel sounds - Integumentary Integumentary: Present: clear, warm, dry - Neurologic Neurologic: CNII-XII intact, moves all extremities Results - Labs CBC & Chem 7: 01/22/19 02:38 01/22/19 02:38 Labs: Laboratory Last Values WBC 8.2 K/mm3 (4.5-11.0) 01/22/19 02:38 RBC 3.50 M/mm3 (3.65-5.03) L 01/22/19 02:38 Hgb 8.5 gm/dl (11.8-15.2) L 01/22/19 02:38 Hct 27.1 % (35.5-45.6) L 01/22/19 02:38 MCV 77 fl (84-94) L 01/22/19 02:38 MCH 24 pg (28-32) L 01/22/19 02:38 MCHC 32 % (32-34) 01/22/19 02:38 RDW 20.1 % (13.2-15.2) H 01/22/19 02:38 Plt Count 215 K/mm3 (140-440) 01/22/19 02:38 Lymph % (Auto) 8.4 % (13.4-35.0) L 01/22/19 02:38 Edwards % (Auto) 10.2 % (0.0-7.3) H 01/22/19 02:38 Eos % (Auto) 1.1 % (0.0-4.3) 01/22/19 02:38 Baso % (Auto) 0.7 % (0.0-1.8) 01/22/19 02:38 Lymph # 0.7 K/mm3 (1.2-5.4) L 01/22/19 02:38 Edwards # 0.8 K/mm3 (0.0-0.8) 01/22/19 02:38 Eos # 0.1 K/mm3 (0.0-0.4) 01/22/19 02:38 Baso # 0.1 K/mm3 (0.0-0.1) 01/22/19 02:38 Seg Neutrophils % 79.6 % (40.0-70.0) H 01/22/19 02:38 Seg Neutrophils # 6.5 K/mm3 (1.8-7.7) 01/22/19 02:38 PT 15.4 Sec. (12.2-14.9) H 01/22/19 02:38 INR 1.15 (0.87-1.13) H 01/22/19 02:38 APTT 31.5 Sec. (24.2-36.6) 01/22/19 02:38 Sodium 134 mmol/L (137-145) L 01/22/19 02:38 Potassium 3.4 mmol/L (3.6-5.0) L 01/22/19 02:38 Chloride 89.5 mmol/L (98-107) L 01/22/19 02:38 Carbon Dioxide 33 mmol/L (22-30) H 01/22/19 02:38 Anion Gap 15 mmol/L 01/22/19 02:38 BUN 14 mg/dL (9-20) 01/22/19 02:38 Creatinine 1.1 mg/dL (0.8-1.5) 01/22/19 02:38 Estimated GFR > 60 ml/min 01/22/19 02:38 BUN/Creatinine Ratio 13 % 01/22/19 02:38 Glucose 114 mg/dL (75-100) H 01/22/19 02:38 POC Glucose 133 (70-105) H 01/22/19 11:39 Calcium 9.6 mg/dL (8.4-10.2) 01/22/19 02:38 Total Bilirubin 1.40 mg/dL (0.1-1.2) H 01/22/19 02:38 AST 13 units/L (5-40) 01/22/19 02:38 ALT 8 units/L (7-56) 01/22/19 02:38 Alkaline Phosphatase 58 units/L (35-129) 01/22/19 02:38 Total Creatine Kinase 22 units/L (55-170) L 01/22/19 02:38 CK-MB (CK-2) < 1.0 ng/mL (0.0-4.0) 01/22/19 02:38 CK-MB (CK-2) Rel Index 4.5 (0-4) H 01/22/19 02:38 Troponin T < 0.010 ng/mL (0.00-0.029) 01/22/19 02:38 Total Protein 6.4 g/dL (6.3-8.2) 01/22/19 02:38 Albumin 2.9 g/dL (3.9-5) L 01/22/19 02:38 Albumin/Globulin Ratio 0.8 % 01/22/19 02:38 Lipase 8 units/L (13-60) L 01/22/19 02:38 Active Medications - Current Medications Current Medications: Generic Name Dose Route Start Last Admin Trade Name Freq PRN Reason Stop Dose Admin Acetaminophen 650 mg 01/22/19 05:32 Tylenol PO Q4H PRN Pain MILD(1-3)/Fever >100.5/KNIGHT Enoxaparin Sodium 110 mg 01/22/19 17:00 Lovenox SUB-Q Q12H ROBERT Sodium Chloride 1,000 mls @ 75 mls/hr 01/22/19 06:00 01/22/19 09:01 Nacl 0.9% 1000 Ml IV 75 mls/hr DIRECT ROBERT Administration Morphine Sulfate 2 mg 01/22/19 05:32 01/22/19 08:59 Morphine IV 2 mg Q4H PRN Administration Pain, Moderate (4-6) Ondansetron HCl 4 mg 01/22/19 05:32 Zofran IV Q8H PRN Nausea And Vomiting Sodium Chloride 10 ml 01/22/19 10:00 01/22/19 11:03 Sodium Chloride Flush Syringe 10 Ml IV 10 ml BID ROBERT Administration Sodium Chloride 10 ml 01/22/19 05:32 Sodium Chloride Flush Syringe 10 Ml IV PRN PRN LINE FLUSH
[2019-01-22] MEDS: ZOFRAN IV PRN (15:00)
[2019-01-22] MEDS: LOVENOX SUB-Q SCH (18:27)
[2019-01-22] MEDS ORDERED: PROVENTIL IH PRN (19:02)
[2019-01-22] MEDS ORDERED: ATROVENT IH PRN (19:04)
[2019-01-22] MEDS: SODIUM CHLORIDE FLUSH SYRINGE 10 ML IV PRN (20:47)
[2019-01-23] MEDS: MORPHINE IV PRN ×5 (03:49→20:25)
[2019-01-23] MEDS: SODIUM CHLORIDE FLUSH SYRINGE 10 ML IV PRN (03:52)
[2019-01-23 05:32] LABS: Basophils % (Auto) 0.5 % (0.0-1.8); Eosinophils % (Auto) 0.5 % (0.0-4.3); Hematocrit 25.7 % (35.5-45.6); Hemoglobin 8.1 gm/dl (11.8-15.2); Lymphocytes # (Auto) 0.6 K/mm3 (1.2-5.4); Lymphocytes % (Auto) 8.4 % (13.4-35.0); Mean Corpuscular HGB Conc 32 % (32-34); Mean Corpuscular Volume 78 fl (84-94); Monocytes # (Auto) 0.8 K/mm3 (0.0-0.8); Monocytes % (Auto) 10.9 % (0.0-7.3); Platelet Count 204 K/mm3 (140-440); Red Cell Distribution Width 20.6 % (13.2-15.2)
[2019-01-23] MEDS: LOVENOX SUB-Q SCH ×2 (05:49→16:26)
[2019-01-23 05:56] LABS: BUN/Creatinine Ratio 12; Blood Urea Nitrogen 13 mg/dL (9-20); Calcium 8.6 mg/dL (8.4-10.2); Hemolysis Index 1
[2019-01-23] MEDS: ZOFRAN IV PRN ×2 (08:10→18:35)
[2019-01-23] MEDS ORDERED: FERRLECIT 125 MG in NACL 0.9% 100 ML IV ONE (08:30)
--- NOTE | 2019-01-23 08:46 | Event Note ---
Date: 01/23/19 [id number]
[2019-01-23] MEDS: DUONEB *Not for PRN Use IH SCH ×3 (08:56→21:17)
[2019-01-23] MEDS: NACL 0.9% 1000 ML 1,000 ML IV SCH (09:56)
[2019-01-23] MEDS: SODIUM CHLORIDE FLUSH SYRINGE 10 ML IV SCH (09:56)
--- NOTE | 2019-01-23 11:49 | Progress Note ---
Assessment and Plan Assessment and plan: Chest pain, recurrent. Consult cardiology. Esophageal CA (dx 09/2018, currently on chemo) last was 2 weeks ago. Consult oncology for further evaluation. Pulmonary embolism. Continue Xarelto. Dilated Nonischemic cardiomyopathy. Patient has an indwelling cardiac defibrillator. Presence of [employer]-ICD ([employer])In December 2017, he underwent a cardiac catheterization that revealed no significant coronary artery disease, ejection fraction 15%. History of atrial flutter. He has a history of atrial flutter status post YARELY guided cardioversion 11/2017. COPD, compensated. Bronchodilators/nebulizers GERD. PPI daily. History of Gout (stable) Anemia of chronic disease. Follow up H&H. Transfuse for hemoglobin less than 7. Hematology consultation pending. Hypokalemia. Replete potassium. DM type2. Accu-Cheks and sliding scale insulin. BRITTON on CPAP. History Interval history: No new issues overnight. Patient still complaining of chest pain. Hospitalist Physical - Constitutional Vitals: Temp Pulse Resp BP Pulse Ox 98.0 F 107 H 20 107/69 96 01/23/19 04:06 01/23/19 09:06 01/23/19 09:06 01/23/19 08:56 01/23/19 08:59 General appearance: Present: no acute distress - EENT Eyes: Present: PERRL, EOM intact ENT: hearing intact, clear oral mucosa, dentition normal - Neck Neck: Present: supple, normal ROM - Respiratory Respiratory effort: normal Respiratory: bilateral: CTA - Cardiovascular Rhythm: regular Heart Sounds: Present: S1 & S2. Absent: gallop, rub - Extremities Extremities: no ischemia, No edema, Full ROM - Abdominal General gastrointestinal: soft, non-tender, non-distended, normal bowel sounds - Integumentary Integumentary: Present: clear, warm, dry - Neurologic Neurologic: CNII-XII intact, moves all extremities Results - Labs CBC & Chem 7: 01/23/19 04:48 01/23/19 04:48 Labs: Laboratory Last Values WBC 7.4 K/mm3 (4.5-11.0) 01/23/19 04:48 RBC 3.30 M/mm3 (3.65-5.03) L 01/23/19 04:48 Hgb 8.1 gm/dl (11.8-15.2) L 01/23/19 04:48 Hct 25.7 % (35.5-45.6) L 01/23/19 04:48 MCV 78 fl (84-94) L 01/23/19 04:48 MCH 25 pg (28-32) L 01/23/19 04:48 MCHC 32 % (32-34) 01/23/19 04:48 RDW 20.6 % (13.2-15.2) H 01/23/19 04:48 Plt Count 204 K/mm3 (140-440) 01/23/19 04:48 Lymph % (Auto) 8.4 % (13.4-35.0) L 01/23/19 04:48 [place] % (Auto) 10.9 % (0.0-7.3) H 01/23/19 04:48 Eos % (Auto) 0.5 % (0.0-4.3) 01/23/19 04:48 Baso % (Auto) 0.5 % (0.0-1.8) 01/23/19 04:48 Lymph # 0.6 K/mm3 (1.2-5.4) L 01/23/19 04:48 Pender # 0.8 K/mm3 (0.0-0.8) 01/23/19 04:48 Eos # 0.0 K/mm3 (0.0-0.4) 01/23/19 04:48 Baso # 0.0 K/mm3 (0.0-0.1) 01/23/19 04:48 Seg Neutrophils % 79.7 % (40.0-70.0) H 01/23/19 04:48 Seg Neutrophils # 5.9 K/mm3 (1.8-7.7) 01/23/19 04:48 PT 15.4 Sec. (12.2-14.9) H 01/22/19 02:38 INR 1.15 (0.87-1.13) H 01/22/19 02:38 APTT 31.5 Sec. (24.2-36.6) 01/22/19 02:38 Sodium 137 mmol/L (137-145) 01/23/19 04:48 Potassium 3.8 mmol/L (3.6-5.0) 01/23/19 04:48 Chloride 91.2 mmol/L (98-107) L 01/23/19 04:48 Carbon Dioxide 32 mmol/L (22-30) H 01/23/19 04:48 Anion Gap 18 mmol/L 01/23/19 04:48 BUN 13 mg/dL (9-20) 01/23/19 04:48 Creatinine 1.1 mg/dL (0.8-1.5) 01/23/19 04:48 Estimated GFR > 60 ml/min 01/23/19 04:48 BUN/Creatinine Ratio 12 % 01/23/19 04:48 Glucose 111 mg/dL (75-100) H 01/23/19 04:48 POC Glucose 100 (70-105) 01/23/19 09:02 Calcium 8.6 mg/dL (8.4-10.2) 01/23/19 04:48 Total Bilirubin 1.40 mg/dL (0.1-1.2) H 01/22/19 02:38 AST 13 units/L (5-40) 01/22/19 02:38 ALT 8 units/L (7-56) 01/22/19 02:38 Alkaline Phosphatase 58 units/L (35-129) 01/22/19 02:38 Total Creatine Kinase 22 units/L (55-170) L 01/22/19 02:38 CK-MB (CK-2) < 1.0 ng/mL (0.0-4.0) 01/22/19 02:38 CK-MB (CK-2) Rel Index 4.5 (0-4) H 01/22/19 02:38 Troponin T < 0.010 ng/mL (0.00-0.029) 01/22/19 02:38 Total Protein 6.4 g/dL (6.3-8.2) 01/22/19 02:38 Albumin 2.9 g/dL (3.9-5) L 01/22/19 02:38 Albumin/Globulin Ratio 0.8 % 01/22/19 02:38 Lipase 8 units/L (13-60) L 01/22/19 02:38 Active Medications - Current Medications Current Medications: Generic Name Dose Route Start Last Admin Trade Name Freq PRN Reason Stop Dose Admin Acetaminophen 650 mg 01/22/19 05:32 Tylenol PO Q4H PRN Pain MILD(1-3)/Fever >100.5/KNIGHT Albuterol 5 mg 01/22/19 19:02 01/22/19 21:37 Proventil IH 2.5 mg Q6HRT PRN Administration Shortness Of Breath Albuterol/Ipratropium 1 ampul 01/23/19 08:00 01/23/19 08:56 Duoneb *Not For Prn Use* IH 1 ampul TIDRT ROBERT Administration Enoxaparin Sodium 110 mg 01/22/19 17:00 01/23/19 05:49 Lovenox SUB-Q 110 mg Q12H ROBERT Administration Sodium Chloride 1,000 mls @ 75 mls/hr 01/22/19 06:00 01/23/19 09:56 Nacl 0.9% 1000 Ml IV 75 mls/hr DIRECT ROBERT Administration Morphine Sulfate 2 mg 01/22/19 05:32 01/23/19 08:10 Morphine IV 2 mg Q4H PRN Administration Pain, Moderate (4-6) Ondansetron HCl 4 mg 01/22/19 05:32 01/23/19 08:10 Zofran IV 4 mg Q8H PRN Administration Nausea And Vomiting Sodium Chloride 10 ml 01/22/19 10:00 01/23/19 09:56 Sodium Chloride Flush Syringe 10 Ml IV 10 ml BID ROBERT Administration Sodium Chloride 10 ml 01/22/19 05:32 01/23/19 03:52 Sodium Chloride Flush Syringe 10 Ml IV 10 ml PRN PRN Administration LINE FLUSH Nutrition/Malnutrition Assess - Dietary Evaluation Nutrition/Malnutrition Findings: Nutrition Notes Start: 01/23/19 10:41 Freq: Status: Active Protocol: Document 01/23/19 10:41 SA (Rec: 01/23/19 10:58 [id number]) Co-Sign 01/23/19 10:41 LP Nutrition Notes Need for Assessment generated from: MST Initial or Follow up Assessment Current Diagnosis COPD,Diabetes,Heart Failure Other Pertinent Diagnosis esophagel cancer on chemotherapy, PE, GERD, Gout, anemia, BRITTON on CPAP Current Diet Full liquid diet Labs/Tests Glu: 111 Albumin: 2.9 Pertinent Medications Reviewed Height 6 ft 4 in Weight 110.677 kg Branch Body Weight (kg) 91.81 BMI 29.7 Weight change and time frame 30# weight loss in 30 days Weight Status Overweight Subjective/Other Information Screened for MST score. Patient reports eating 25% of meals when on solid diet but now able to eat more after switching to full liquid diet. Pt states he has good appetite but unable to eat due to the pain of his esophagel cancer. Pt experiencing nausea from his meds. Pt reports unintentional weight loss of 30# in 30 days. Pt has slight Percent of energy/protein needs met: 21%/19% Burn Absent Trauma Absent Minimum of two criteria Yes Energy Intake (severe) < or equal to 50% Estimated Energy Requirement > or equal to 5 days Interpretation of Weight Loss (severe) >5% in 1 month #2 Nutrition Diagnosis Malnutrition Etiology severe weight loss and getting less than 50% of EER As Evidenced by Signs and Symptoms 30# weight loss in 30 days and eating less than 25% of meals #1 Nutrition Diagnosis Inadequate oral intake Etiology unable to eat solids due to pain caused by esophagel cancer As Evidenced by Signs and Symptoms eating less than 25% of meals and unintentional weight loss of 30# Is patient on ventilator? No Is Patient Ambulatory and/or Out of Bed No [facility]-([facility]-confined to bed) [phone] Calculation Used for Recommendations [facility] or Additional Notes Protein: 1-1.2 g/kg (111-133 g /day) Fluid: 1 ml/kcal Nutrition Intervention Change Diet Order: Continue current Add Supplement/Snack (indicate name/kcal Glucerna 2 daily /protein ) Provides kCal: 440 Provides Protein (gm) 20 Goal #1 Meet at least 75% of kcal and pro needs via PO and ONS intakes Anticipated Discharge Needs: Unable to determine at this time Follow-Up By: 01/24/19 Additional Comments F/U: PO and ONS intakes
--- NOTE | 2019-01-23 13:51 | Consultation ---
History of Present Illness Consult date: 01/23/19 Consult reason: congestive heart failure History of present illness: 48-year-old man well known to our service, history of dilated nonischemic ca rdiomyopathy, primary cardiac defibrillator in situ, recently diagnosed with esophageal cancer. He has had multiple recent admissions associated with his esophageal disease, and is readmitted with gastroesophageal reflux symptoms, dysphagia and epigastric pain. Cardiac consultation is requested for follow-up of his cardiomyopathy. ECG on presentation was a ventricular pacemaker rhythm, but on telemetry overnight it appears he has had recurrent, nonsustained wide-complex tachycardia suspicious for ventricular tachycardia. Past History Past Medical History: cancer, COPD, diabetes, heart failure, hypertension, hyperlipidemia Past Surgical History: Other (port insertion) Social history: no significant social history Family history: no significant family history Medications and Allergies Allergies Allergy/AdvReac Type Severity Reaction Status Date / Time cephalexin monohydrate AdvReac Shakes Verified 12/23/18 14:22 [From Keflex] lidocaine AdvReac "Skin Verified 12/23/18 14:22 Yellowing" mushrooms Allergy Anaphylaxis Uncoded 12/23/18 14:22 Home Medications Medication Instructions Recorded Confirmed Last Taken Type Magnesium Oxide 400 mg PO DAILY 08/31/16 01/23/19 12/26/18 History Insulin Glargine,Hum.rec.anlog 20 unit SQ HS 09/29/18 01/23/19 12/26/18 History [Lantus] Allopurinol [Zyloprim] 100 mg PO BID tablet 11/20/18 01/23/19 12/26/18 Rx Ferrous Sulfate [Feosol 325 MG tab] 325 mg PO BID tablet 11/20/18 01/23/19 12/26/18 Rx Lisinopril [Zestril TAB] 2.5 mg PO BID tablet 11/20/18 01/23/19 12/26/18 Rx Digoxin [Lanoxin] 0.125 mg PO DAILY 12/10/18 01/23/19 12/26/18 History Gabapentin [Neurontin] 300 mg PO DAILY 12/10/18 01/23/19 12/26/18 History Omeprazole 20 mg PO DAILY 12/10/18 01/23/19 12/26/18 History glipiZIDE [Glipizide] 10 mg PO DAILY 12/10/18 01/23/19 12/26/18 History Aspirin [Aspirin BABY CHEW TAB] 81 mg PO QDAY 12/20/18 01/23/19 12/26/18 History Potassium Chloride [Klor-Con M20] 20 meq PO BID 12/20/18 01/23/19 12/26/18 History Tizanidine HCl [Zanaflex] 4 mg PO BID 12/23/18 01/23/19 12/26/18 History Oxycodone HCl/Acetaminophen 1 each PO Q6HR PRN #20 tablet 12/24/18 01/23/19 12/26/18 Rx [Percocet 7.5/325 mg] Hydromorphone HCl [Dilaudid] 4 mg PO Q12HR PRN #20 tablet 01/06/19 01/23/19 Unknown Rx Rivaroxaban [Xarelto] 20 mg PO QDAY #30 tablet 01/06/19 01/23/19 Unknown Rx Carvedilol [Coreg] 12.5 mg PO BID #60 tablet 01/09/19 01/23/19 Unknown Rx Demadex 100 mg PO QDAY 01/09/19 01/23/19 Unknown History Active Meds: Active Medications Acetaminophen (Tylenol) 650 mg PO Q4H PRN PRN Reason: Pain MILD(1-3)/Fever >100.5/KNIGHT Albuterol (Proventil) 5 mg IH Q6HRT PRN PRN Reason: Shortness Of Breath Last Admin: 01/22/19 21:37 Dose: 2.5 mg Documented by: Albuterol/Ipratropium (Duoneb *Not For Prn Use*) 1 ampul IH TIDRT [facility] Last Admin: 01/23/19 08:56 Dose: 1 ampul Documented by: Enoxaparin Sodium (Lovenox) 110 mg SUB-Q Q12H [facility] Last Admin: 01/23/19 05:49 Dose: 110 mg Documented by: Sodium Chloride (Nacl 0.9% 1000 Ml) 1,000 mls @ 75 mls/hr IV DIRECT [facility] Last Admin: 01/23/19 09:56 Dose: 75 mls/hr Documented by: Morphine Sulfate (Morphine) 2 mg IV Q4H PRN PRN Reason: Pain, Moderate (4-6) Last Admin: 01/23/19 12:32 Dose: 2 mg Documented by: Ondansetron HCl (Zofran) 4 mg IV Q8H PRN PRN Reason: Nausea And Vomiting Last Admin: 01/23/19 08:10 Dose: 4 mg Documented by: Sodium Chloride (Sodium Chloride Flush Syringe 10 Ml) 10 ml IV BID ROBERT Last Admin: 01/23/19 09:56 Dose: 10 ml Documented by: Sodium Chloride (Sodium Chloride Flush Syringe 10 Ml) 10 ml IV PRN PRN PRN Reason: LINE FLUSH Last Admin: 01/23/19 03:52 Dose: 10 ml Documented by: Review of Systems Cardiovascular: chest pain, shortness of breath, no orthopnea, no palpitations, no rapid/irregular heart beat, no edema, no syncope, no lightheadedness Physical Examination Vital Signs Pulse Resp Pulse Ox 98 H 17 98 01/22/19 02:10 01/22/19 02:10 01/22/19 02:10 General appearance: no acute distress HEENT: Positive: PERRL Neck: Positive: neck supple Cardiac: Positive: Reg Rate and Rhythm Lungs: Positive: Decreased Breath Sounds Neuro: Positive: Grossly Intact Abdomen: Positive: Soft Male genitourinary: Positive: deferred Skin: Positive: Clear Extremities: Absent: edema Results 01/23/19 04:48 01/23/19 04:48 CBC 01/23/19 Range/Units 04:48 WBC 7.4 (4.5-11.0) K/mm3 RBC 3.30 L (3.65-5.03) M/mm3 Hgb 8.1 L (11.8-15.2) gm/dl Hct 25.7 L (35.5-45.6) % Plt Count 204 (140-440) K/mm3 Lymph # 0.6 L (1.2-5.4) K/mm3 [place] # 0.8 (0.0-0.8) K/mm3 Eos # 0.0 (0.0-0.4) K/mm3 Baso # 0.0 (0.0-0.1) K/mm3 Comprehensive Metabolic Panel 01/23/19 Range/Units 04:48 Sodium 137 (137-145) mmol/L Potassium 3.8 (3.6-5.0) mmol/L Chloride 91.2 L (98-107) mmol/L Carbon Dioxide 32 H (22-30) mmol/L BUN 13 (9-20) mg/dL Creatinine 1.1 (0.8-1.5) mg/dL Glucose 111 H (75-100) mg/dL Calcium 8.6 (8.4-10.2) mg/dL EKG interpretations Pacemaker: ventricular pacing w/capt Assessment and Plan - Patient Problems (1) Dilated cardiomyopathy Current Visit: Yes Status: Acute Plan to address problem: Dilated cardiomyopathy with ventricular defibrillator in situ, continue guidelines directed medical therapy. We will empirically treat ventricular tachyarrhythmias with amiodarone and beta blockers in addition to optimal maintenance of electrolyte and fluid balance.
[2019-01-23] MEDS ORDERED: CORDARONE 150 MG in D5W 100 ML IV ONE (15:00)
[2019-01-23] MEDS: LOPRESSOR IV SCH ×2 (16:26→21:50)
[2019-01-24] MEDS: NACL 0.9% 1000 ML 1,000 ML IV SCH ×2 (00:40→12:16)
[2019-01-24] MEDS: MORPHINE IV PRN ×4 (00:41→16:29)
[2019-01-24] MEDS: SODIUM CHLORIDE FLUSH SYRINGE 10 ML IV SCH ×3 (00:41→22:00)
--- NOTE | 2019-01-24 04:27 | Consultation ---
REFERRED BY: Nate Odell MD REASON FOR CONSULTATION: Esophageal cancer. HISTORY OF PRESENT ILLNESS: The patient is a 48-year-old male with recent diagnosis of esophageal cancer. He was seen by me at [facility] in 10/2018 when he was diagnosed with esophageal cancer. It was HER-2 negative. His ejection fraction was low. He was keen for surgery. He saw Dr. Junior at [facility]. At that time, he was admitted, PEG tube was placed, PE was found and the patient was started on Xarelto. He was deemed not a surgical candidate. He came back and he has been starting radiation with Dr. Sin along with 5-FU as concomitant chemotherapy to augment the radiation effect. 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 He has been having episodic chest and abdominal pain. The PEG tube was removed. He is able to eat orally. He has received only one dose of 5-FU on 01/08/2019 and after that he has not been able to come back as he has been getting admitted again at various hospitals in [place]. Prior to this admission, he was admitted at [facility] in [place]. A port has been placed. He came to the hospital because of pain issues, especially when he takes a deep breath. He also has history of cough and yellow sputum. No fevers, no headache. No visual disturbances. No seizure, syncope or loss of consciousness. PAST MEDICAL HISTORY: As above, COPD, diabetes, hypertension, hyperlipidemia. SURGICAL HISTORY: Port placement. SOCIAL HISTORY: Not contributory. FAMILY HISTORY: Noncontributory. ALLERGIES: TO LIDOCAINE, KEFLEX, MUSHROOMS. MEDICATIONS: Reviewed, which includes Lovenox, metoprolol, morphine 2 mg IV q. 4 hours. PHYSICAL EXAMINATION: HEENT: Pallor present. No icterus. NECK: No neck lymph nodes. HEART: S1, S2, both present. LUNGS: Clear to auscultation anteriorly. ABDOMEN: PEG tube scar present. The patient has lost weight. EXTREMITIES: No calf tenderness. NEUROLOGIC: Alert, awake. LABORATORY DATA: White cell 7, hemoglobin 8.1, MCV 70, platelet 204. Potassium 3.8, creatinine 1.1, calcium 8.6, bilirubin 1.4. In the clinic setting, serum iron level was low. RADIOLOGY: CT chest was done during this admission, which shows pulmonary embolism, bilateral distal basilar branches. CT of abdomen and pelvis shows cholecystectomy, umbilical hernia, hiatal hernia. ASSESSMENT AND PLAN: 1. Esophageal cancer, locally advanced, not a surgical candidate because of low ejection fraction. The patient on radiation therapy and 5-FU continuous infusion to augment the radiation; however, he has not been able to get chemotherapy. He received only 48 hours of 5-FU on 01/08/2019. After that, he was admitted to [facility] and now this. 2. History of pulmonary embolism, was on Xarelto, on Lovenox. 3. Pain issues, on pain medications. 4. History of diabetes. 5. History of weight loss. 6. History of hypertension. 7. History of hyperlipidemia. 8. Esophageal cancer. 9. 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 10. Low ejection fraction. 11. HER-2 negative in the tumor. 12. PEG tube was placed, now removed. The patient needs pain medication support. I will follow the patient during inpatient stay. JOB# [id number] NM/NTS
[2019-01-24] MEDS: LOVENOX SUB-Q SCH ×2 (05:04→16:23)
[2019-01-24] MEDS: LOPRESSOR IV SCH ×3 (05:11→22:00)
[2019-01-24] MEDS: DUONEB *Not for PRN Use IH SCH ×3 (09:58→21:00)
--- NOTE | 2019-01-24 12:04 | Progress Note ---
Assessment and Plan Assessment and plan: Chest pain, recurrent. ECG on presentation was a ventricular pacemaker rhythm, but on telemetry since hospitalization it appears he has had recurrent, nonsustained wide-complex tachycardia suspicious for ventricular tachycardia. NSVT. As above. Cardiology started the patient on amiodarone and beta brandon. Esophageal CA (dx 09/2018, currently on chemo) last was 2 weeks ago. Oncology following Pulmonary embolism. Continue Xarelto. Dilated Nonischemic cardiomyopathy. Patient has an indwelling cardiac defibrillator. 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 History of atrial flutter. He has a history of atrial flutter status post YARELY guided cardioversion 11/2017. COPD, compensated. Bronchodilators/nebulizers GERD. PPI daily. History of Gout (stable) Anemia of chronic disease. Follow up H&H. Transfuse for hemoglobin less than 7. Hematology following Hypokalemia. Replete potassium as needed. DM type2. Accu-Cheks and sliding scale insulin. BRITTON on CPAP. History Interval history: No new issues overnight. Patient still complaining of chest pain. Hospitalist Physical - Constitutional Vitals: Temp Pulse Resp BP Pulse Ox 98.3 F 94 H 16 120/89 97 01/24/19 09:10 01/24/19 11:03 01/24/19 09:57 01/24/19 09:10 01/24/19 10:00 General appearance: Present: no acute distress - EENT Eyes: Present: PERRL, EOM intact ENT: hearing intact, clear oral mucosa, dentition normal - Neck Neck: Present: supple, normal ROM - Respiratory Respiratory effort: normal Respiratory: bilateral: CTA - Cardiovascular Rhythm: regular Heart Sounds: Present: S1 & S2. Absent: gallop, rub - Extremities Extremities: no ischemia, No edema, Full ROM - Abdominal General gastrointestinal: soft, non-tender, non-distended, normal bowel sounds - Integumentary Integumentary: Present: clear, warm, dry - Neurologic Neurologic: CNII-XII intact, moves all extremities Results - Labs CBC & Chem 7: 01/23/19 04:48 01/23/19 04:48 Labs: Laboratory Last Values WBC 7.4 K/mm3 (4.5-11.0) 01/23/19 04:48 RBC 3.30 M/mm3 (3.65-5.03) L 01/23/19 04:48 Hgb 8.1 gm/dl (11.8-15.2) L 01/23/19 04:48 Hct 25.7 % (35.5-45.6) L 01/23/19 04:48 MCV 78 fl (84-94) L 01/23/19 04:48 MCH 25 pg (28-32) L 01/23/19 04:48 MCHC 32 % (32-34) 01/23/19 04:48 RDW 20.6 % (13.2-15.2) H 01/23/19 04:48 Plt Count 204 K/mm3 (140-440) 01/23/19 04:48 Lymph % (Auto) 8.4 % (13.4-35.0) L 01/23/19 04:48 [place] % (Auto) 10.9 % (0.0-7.3) H 01/23/19 04:48 Eos % (Auto) 0.5 % (0.0-4.3) 01/23/19 04:48 Baso % (Auto) 0.5 % (0.0-1.8) 01/23/19 04:48 Lymph # 0.6 K/mm3 (1.2-5.4) L 01/23/19 04:48 [place] # 0.8 K/mm3 (0.0-0.8) 01/23/19 04:48 Eos # 0.0 K/mm3 (0.0-0.4) 01/23/19 04:48 Baso # 0.0 K/mm3 (0.0-0.1) 01/23/19 04:48 Seg Neutrophils % 79.7 % (40.0-70.0) H 01/23/19 04:48 Seg Neutrophils # 5.9 K/mm3 (1.8-7.7) 01/23/19 04:48 PT 15.4 Sec. (12.2-14.9) H 01/22/19 02:38 INR 1.15 (0.87-1.13) H 01/22/19 02:38 APTT 31.5 Sec. (24.2-36.6) 01/22/19 02:38 Sodium 137 mmol/L (137-145) 01/23/19 04:48 Potassium 3.8 mmol/L (3.6-5.0) 01/23/19 04:48 Chloride 91.2 mmol/L (98-107) L 01/23/19 04:48 Carbon Dioxide 32 mmol/L (22-30) H 01/23/19 04:48 Anion Gap 18 mmol/L 01/23/19 04:48 BUN 13 mg/dL (9-20) 01/23/19 04:48 Creatinine 1.1 mg/dL (0.8-1.5) 01/23/19 04:48 Estimated GFR > 60 ml/min 01/23/19 04:48 BUN/Creatinine Ratio 12 % 01/23/19 04:48 Glucose 111 mg/dL (75-100) H 01/23/19 04:48 POC Glucose 97 (70-105) 01/24/19 09:18 Calcium 8.6 mg/dL (8.4-10.2) 01/23/19 04:48 Magnesium 2.10 mg/dL (1.7-2.3) 01/23/19 14:49 Total Bilirubin 1.40 mg/dL (0.1-1.2) H 01/22/19 02:38 AST 13 units/L (5-40) 01/22/19 02:38 ALT 8 units/L (7-56) 01/22/19 02:38 Alkaline Phosphatase 58 units/L (35-129) 01/22/19 02:38 Total Creatine Kinase 22 units/L (55-170) L 01/22/19 02:38 CK-MB (CK-2) < 1.0 ng/mL (0.0-4.0) 01/22/19 02:38 CK-MB (CK-2) Rel Index 4.5 (0-4) H 01/22/19 02:38 Troponin T < 0.010 ng/mL (0.00-0.029) 01/22/19 02:38 Total Protein 6.4 g/dL (6.3-8.2) 01/22/19 02:38 Albumin 2.9 g/dL (3.9-5) L 01/22/19 02:38 Albumin/Globulin Ratio 0.8 % 01/22/19 02:38 Lipase 8 units/L (13-60) L 01/22/19 02:38 Active Medications - Current Medications Current Medications: Generic Name Dose Route Start Last Admin Trade Name Freq PRN Reason Stop Dose Admin Acetaminophen 650 mg 01/22/19 05:32 Tylenol PO Q4H PRN Pain MILD(1-3)/Fever >100.5/KNIGHT Albuterol 5 mg 01/22/19 19:02 01/22/19 21:37 Proventil IH 2.5 mg Q6HRT PRN Administration Shortness Of Breath Albuterol/Ipratropium 1 ampul 01/23/19 08:00 01/24/19 09:58 Duoneb *Not For Prn Use* IH 1 ampul TIDRT ROBERT Administration Enoxaparin Sodium 110 mg 01/22/19 17:00 01/24/19 05:04 Lovenox SUB-Q 110 mg Q12H ROBERT Administration Sodium Chloride 1,000 mls @ 75 mls/hr 01/22/19 06:00 01/24/19 00:40 Nacl 0.9% 1000 Ml IV 75 mls/hr DIRECT ROBERT Administration Metoprolol Tartrate 5 mg 01/23/19 14:00 01/24/19 05:11 Lopressor IV Not Given Q8HR ROBERT Morphine Sulfate 2 mg 01/22/19 05:32 01/24/19 08:34 Morphine IV 2 mg Q4H PRN Administration Pain, Moderate (4-6) Ondansetron HCl 4 mg 01/22/19 05:32 01/23/19 18:35 Zofran IV 4 mg Q8H PRN Administration Nausea And Vomiting Sodium Chloride 10 ml 01/22/19 10:00 01/24/19 09:34 Sodium Chloride Flush Syringe 10 Ml IV 10 ml BID ROBERT Administration Sodium Chloride 10 ml 01/22/19 05:32 01/23/19 03:52 Sodium Chloride Flush Syringe 10 Ml IV 10 ml PRN PRN Administration LINE FLUSH Nutrition/Malnutrition Assess - Dietary Evaluation Nutrition/Malnutrition Findings: Nutrition Notes Start: 01/23/19 10:41 Freq: Status: Active Protocol: Document 01/23/19 10:41 SA (Rec: 01/23/19 10:58 SA [id number]) Co-Sign 04/04/19 10:41 LP Nutrition Notes Need for Assessment generated from: MST Initial or Follow up Assessment Current Diagnosis COPD,Diabetes,Heart Failure Other Pertinent Diagnosis esophagel cancer on chemotherapy, PE, GERD, Gout, anemia, BRITTON on CPAP Current Diet Full liquid diet Labs/Tests Glu: 111 Albumin: 2.9 Pertinent Medications Reviewed Height 6 ft 4 in Weight 110.677 kg [place] Body Weight (kg) 91.81 BMI 29.7 Weight change and time frame 30# weight loss in 30 days Weight Status Overweight Subjective/Other Information Screened for MST score. Patient reports eating 25% of meals when on solid diet but he thinks he will be able to eat more now since diet has switched to full liquid. Pt states he has good appetite but unable to eat due to the pain of his esophagel cancer. Pt experiencing nausea from his meds. Pt reports unintentional weight loss of 30# in 30 days. Percent of energy/protein needs met: 21%/19% Burn Absent Trauma Absent Minimum of two criteria Yes Energy Intake (severe) < or equal to 50% Estimated Energy Requirement > or equal to 5 days Interpretation of Weight Loss (severe) >5% in 1 month #2 Nutrition Diagnosis Malnutrition Etiology severe weight loss and getting less than 50% of estimated energy requirements As Evidenced by Signs and Symptoms 30# weight loss in 30 days and eating less than 25% of meals #1 Nutrition Diagnosis Inadequate oral intake Etiology unable to eat solids due to pain caused by esophagel cancer As Evidenced by Signs and Symptoms eating less than 25% of meals and unintentional weight loss of 30# Is patient on ventilator? No Is Patient Ambulatory and/or Out of Bed No REE-([facility]-confined to bed) 3921.066 Calculation Used for Recommendations [facility] Additional Notes Protein: 1.2-1.5 g/kg (133-165 g/day) Fluid: 1 ml/kcal Nutrition Intervention Change Diet Order: Continue current Add Supplement/Snack (indicate name/kcal Glucerna 2 daily /protein ) Provides kCal: 440 Provides Protein (gm) 20 Goal #1 Meet at least 75% of kcal and pro needs via PO and ONS intakes Anticipated Discharge Needs: Unable to determine at this time Follow-Up By: 01/27/19 Additional Comments F/U: PO and ONS intakes
--- NOTE | 2019-01-24 16:31 | Progress Note ---
Assessment and Plan - Patient Problems (1) Dilated cardiomyopathy Current Visit: Yes Status: Acute Plan to address problem: Dilated cardiomyopathy with ventricular defibrillator in situ, continue guidelines directed medical therapy. We will empirically treat ventricular tachyarrhythmias with amiodarone and beta blockers in addition to optimal maintenance of electrolyte and fluid balance. Subjective Date of service: 01/24/19 Interval history: Patient is comfortable, no cardiac complaints. Objective Vital Signs Temp Pulse Pulse Resp Resp BP Pulse Ox 01/24/19 15:18 98 H 15 01/24/19 15:12 92 H 16 01/24/19 11:03 94 H 01/24/19 10:05 110 H 16 01/24/19 10:00 97 01/24/19 09:57 95 H 16 01/24/19 09:10 98.3 F 109 H 18 120/89 99 01/24/19 05:11 98 H 101/55 01/24/19 04:44 98.1 F 98 H 16 101/55 99 01/23/19 23:43 98.3 F 100 H 15 109/70 96 01/23/19 21:29 103 H 18 01/23/19 21:19 98 01/23/19 21:18 101 H 20 01/23/19 20:16 97.5 F L 95 H 18 99/58 99 01/23/19 20:00 107 H 01/23/19 19:44 97.5 F L 46 L 20 209/176 91 - Physical Examination General: No Apparent Distress HEENT: Positive: PERRL Neck: Positive: neck supple Cardiac: Positive: Reg Rate and Rhythm Lungs: Positive: Decreased Breath Sounds Neuro: Positive: Grossly Intact Abdomen: Positive: Soft Skin: Positive: Clear Extremities: Absent: edema Pacemaker: ventricular pacing w/capt
[2019-01-24] MEDS ORDERED: NITROSTAT SL ONE (18:07)
[2019-01-24] MEDS ORDERED: DILAUDID IV ONE ×2 (18:12→18:57)
[2019-01-24] MEDS ORDERED: DILAUDID IV PRN (18:13)
[2019-01-24] MEDS: ZOFRAN IV PRN (18:45)
[2019-01-24] MEDS: PERCOCET 5/325 PO PRN (19:12)
[2019-01-24 19:35] LABS: Creatine Kinase MB < 1.0 ng/mL (0.0-4.0)
[2019-01-24] MEDS: DILAUDID IV PRN (22:51)
[2019-01-25] MEDS: NACL 0.9% 1000 ML 1,000 ML IV SCH ×2 (01:05→15:14)
[2019-01-25] MEDS: ZOFRAN IV PRN ×3 (01:05→23:21)
[2019-01-25] MEDS: DILAUDID IV PRN ×6 (02:37→23:21)
[2019-01-25] MEDS: LOPRESSOR IV SCH (05:09)
[2019-01-25] MEDS: PERCOCET 5/325 PO PRN ×2 (05:10→19:57)
[2019-01-25] MEDS: LOVENOX SUB-Q SCH ×2 (05:10→18:40)
[2019-01-25 05:44] LABS: Basophils % (Auto) 0.3 % (0.0-1.8); Eosinophils % (Auto) 0.1 % (0.0-4.3); Hematocrit 25.7 % (35.5-45.6); Hemoglobin 8.1 gm/dl (11.8-15.2); Lymphocytes # (Auto) 0.6 K/mm3 (1.2-5.4); Mean Corpuscular HGB Conc 32 % (32-34); Mean Corpuscular Volume 79 fl (84-94); Monocytes # (Auto) 0.9 K/mm3 (0.0-0.8); Monocytes % (Auto) 8.7 % (0.0-7.3); Platelet Count 234 K/mm3 (140-440); Red Blood Count 3.26 M/mm3 (3.65-5.03)
[2019-01-25 05:53] LABS: Red Cell Distribution Width 20.9 % (13.2-15.2)
[2019-01-25 06:02] LABS: BUN/Creatinine Ratio 14; Blood Urea Nitrogen 17 mg/dL (9-20); Hemolysis Index 12
--- NOTE | 2019-01-25 07:07 | Hem/Onc Progress Note ---
Assessment and Plan 1. Esophageal cancer, locally advanced, not a surgical candidate because of low ejection fraction. The patient on radiation therapy and 5-FU continuous infusion to augment the radiation; however, he has not been able to get chemotherapy. He received only 48 hours of 5-FU on 01/08/2019. After that, he was admitted to [facility] and now this. 2. History of pulmonary embolism, was on Xarelto, on Lovenox. 3. Pain issues, on pain medications. 4. History of diabetes. 5. History of weight loss. 6. History of hypertension. 7. History of hyperlipidemia. 8. Esophageal cancer. 9. 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 10. Low ejection fraction. 11. HER-2 negative in the tumor. 12. PEG tube was placed, now removed. The patient needs pain medication support. I will follow the patient during inpatient stay. long acting pain meds trial - Patient Problems (1) Esophageal cancer Current Visit: No Status: Acute Subjective Date of service: 01/25/19 Principal diagnosis: esophageal ca - anemia - PE Interval history: pain issues Objective - Constitutional Vitals: Last Vital Signs Temp 98.3 F 01/25/19 05:07 Pulse 110 H 01/25/19 05:09 Resp 20 01/25/19 05:07 BP 119/70 01/25/19 05:09 Pulse Ox 100 01/25/19 05:07 Pain Intensity (0-10): 1/10 General appearance: mild distress Performance status: 3-limited selfcare - EENT Eyes: EOM intact ENT: clear oral mucosa Lymph node exam: negative cervical - Neck Neck: normal ROM - Respiratory Respiratory effort: Positive: normal Respiratory: bilateral: diminished - Cardiovascular Heart Sounds: Present: S1 & S2 Extremities: No edema - Gastrointestinal General gastrointestinal: Present: soft, other (lost wt) Rectal Exam: deferred - Genitourinary Male genitourinary: Present: deferred - Integumentary Integumentary: warm - Musculoskeletal Musculoskeletal: strength equal bilaterally - Neurologic Neurologic: moves all extremities - Labs Lab Results: Laboratory Results - last 24 hr 01/24/19 01/24/19 01/24/19 09:18 16:39 18:06 WBC RBC Hgb Hct MCV MCH MCHC RDW Plt Count Lymph % (Auto) [place] % (Auto) Eos % (Auto) Baso % (Auto) Lymph # [place] # Eos # Baso # Seg Neutrophils % Seg Neutrophils # D-Dimer Sodium Potassium Chloride Carbon Dioxide Anion Gap BUN Creatinine Estimated GFR BUN/Creatinine Ratio Glucose POC Glucose 97 123 H 107 H Calcium Total Creatine Kinase CK-MB (CK-2) CK-MB (CK-2) Rel Index Troponin T NT-Pro-B Natriuret Pep 01/24/19 01/24/19 01/24/19 18:20 18:20 18:20 WBC RBC Hgb Hct MCV MCH MCHC RDW Plt Count Lymph % (Auto) [place] % (Auto) Eos % (Auto) Baso % (Auto) Lymph # [place] # Eos # Baso # Seg Neutrophils % Seg Neutrophils # D-Dimer 259.37 H Sodium Potassium Chloride Carbon Dioxide Anion Gap BUN Creatinine Estimated GFR BUN/Creatinine Ratio Glucose POC Glucose Calcium Total Creatine Kinase CK-MB (CK-2) CK-MB (CK-2) Rel Index Troponin T < 0.010 NT-Pro-B Natriuret Pep 83372 H 01/24/19 01/25/19 01/25/19 18:20 04:49 04:49 WBC 9.8 RBC 3.26 L Hgb 8.1 L Hct 25.7 L MCV 79 L MCH 25 L MCHC 32 RDW 20.9 H Plt Count 234 Lymph % (Auto) 6.0 L [place] % (Auto) 8.7 H Eos % (Auto) 0.1 Baso % (Auto) 0.3 Lymph # 0.6 L [place] # 0.9 H Eos # 0.0 Baso # 0.0 Seg Neutrophils % 84.9 H Seg Neutrophils # 8.3 H D-Dimer Sodium 136 L Potassium 4.1 Chloride 93.4 L Carbon Dioxide 26 Anion Gap 21 BUN 17 Creatinine 1.2 Estimated GFR > 60 BUN/Creatinine Ratio 14 Glucose 107 H POC Glucose Calcium 9.0 Total Creatine Kinase 13 L CK-MB (CK-2) < 1.0 CK-MB (CK-2) Rel Index 7.6 H Troponin T NT-Pro-B Natriuret Pep Medications & Allergies - Medications Allergies/Adverse Reactions: Allergies cephalexin monohydrate [From Keflex] Adverse Reaction (Verified 12/23/18 14:22) Shakes lidocaine Adverse Reaction (Verified 12/23/18 14:22) "Skin Yellowing" mushrooms Allergy (Uncoded 12/23/18 14:22) Anaphylaxis Home Medications: Home Medications Medication Instructions Recorded Confirmed Last Taken Type RX: Magnesium Oxide 400 mg PO DAILY 08/31/16 01/23/19 12/26/18 History RX: Insulin Glargine,Hum.rec.anlog 20 unit SQ HS 09/29/18 01/23/19 12/26/18 History [Lantus] RX: Allopurinol [Zyloprim] 100 mg PO BID tablet 11/20/18 01/23/19 12/26/18 Rx RX: Ferrous Sulfate [Feosol 325 MG 325 mg PO BID tablet 11/20/18 01/23/19 12/26/18 Rx tab] RX: Lisinopril [Zestril TAB] 2.5 mg PO BID tablet 11/20/18 01/23/19 12/26/18 Rx RX: Digoxin [Lanoxin] 0.125 mg PO DAILY 12/10/18 01/23/19 12/26/18 History RX: Gabapentin [Neurontin] 300 mg PO DAILY 12/10/18 01/23/19 12/26/18 History RX: Omeprazole 20 mg PO DAILY 12/10/18 01/23/19 12/26/18 History RX: glipiZIDE [Glipizide] 10 mg PO DAILY 12/10/18 01/23/19 12/26/18 History RX: Aspirin [Aspirin BABY CHEW TAB] 81 mg PO QDAY 12/20/18 01/23/19 12/26/18 History RX: Potassium Chloride [Klor-Con 20 meq PO BID 12/20/18 01/23/19 12/26/18 History M20] RX: Tizanidine HCl [Zanaflex] 4 mg PO BID 12/23/18 01/23/19 12/26/18 History RX: Oxycodone HCl/Acetaminophen 1 each PO Q6HR PRN #20 tablet 12/24/18 01/23/19 12/26/18 Rx [Percocet 7.5/325 mg] Hydromorphone HCl [Dilaudid] 4 mg PO Q12HR PRN #20 tablet 01/06/19 01/23/19 Unknown Rx RX: Rivaroxaban [Xarelto] 20 mg PO QDAY #30 tablet 01/06/19 01/23/19 Unknown Rx Demadex 100 mg PO QDAY 01/09/19 01/23/19 Unknown History RX: Carvedilol [Coreg] 12.5 mg PO BID #60 tablet 01/09/19 01/23/19 Unknown Rx Active Medications: Generic Name Dose Route Start Last Admin Trade Name Freq PRN Reason Stop Dose Admin Acetaminophen 650 mg 01/22/19 05:32 Tylenol PO Q4H PRN Pain MILD(1-3)/Fever >100.5/KNIGHT Albuterol 5 mg 01/22/19 19:02 01/22/19 21:37 Proventil IH 2.5 mg Q6HRT PRN Administration Shortness Of Breath Albuterol/Ipratropium 1 ampul 01/23/19 08:00 01/24/19 21:00 Duoneb *Not For Prn Use* IH 1 ampul TIDRT ROBERT Administration Amiodarone HCl 200 mg 01/25/19 10:00 Cordarone PO BID ROBERT Enoxaparin Sodium 110 mg 01/22/19 17:00 01/25/19 05:10 Lovenox SUB-Q 110 mg Q12H ROBERT Administration Hydromorphone HCl 0.5 mg 01/24/19 19:10 01/25/19 06:46 Dilaudid IV 0.5 mg Q4HR PRN Administration Pain , Severe (7-10) Sodium Chloride 1,000 mls @ 75 mls/hr 01/22/19 06:00 01/25/19 01:05 Nacl 0.9% 1000 Ml IV 75 mls/hr DIRECT ROBERT Administration Metoprolol Tartrate 25 mg 01/25/19 10:00 Lopressor PO BID ROBERT Morphine Sulfate 2 mg 01/22/19 05:32 01/24/19 16:29 Morphine IV 2 mg Q4H PRN Administration Pain, Moderate (4-6) Ondansetron HCl 4 mg 01/22/19 05:32 01/25/19 01:05 Zofran IV 4 mg Q8H PRN Administration Nausea And Vomiting Oxycodone/Acetaminophen 1 tab 01/24/19 18:14 01/25/19 05:10 Percocet 5/325 PO 1 tab BID PRN Administration Pain, Moderate (4-6) Sodium Chloride 10 ml 01/22/19 10:00 01/24/19 22:00 Sodium Chloride Flush Syringe 10 Ml IV 10 ml BID ROBERT Administration Sodium Chloride 10 ml 01/22/19 05:32 01/23/19 03:52 Sodium Chloride Flush Syringe 10 Ml IV 10 ml PRN PRN Administration LINE FLUSH
--- NOTE | 2019-01-25 07:07 | Progress Note ---
Assessment and Plan 1. Dilated nonischemic cardiomyopathy 2. Chronic obstructive pulmonary disease 3. Esophageal cancer 4. Type 2 diabetes mellitus 5. Essential hypertension 6. Hyperlipidemia Plan. Patient had a run of nonsustained monomorphic ventricular tachycardia. Patient IV metoprolol changed to oral metoprolol and start patient on amiodarone Subjective Date of service: 01/25/19 Interval history: Patient complains of pain no cardiac symptoms had a run of V-tach last night Objective Vital Signs Temp Pulse Pulse Resp Resp BP BP 01/25/19 05:09 110 H 119/70 01/25/19 05:07 98.3 F 110 H 20 119/70 01/25/19 00:37 98.4 F 107 H 20 121/86 01/24/19 21:23 01/24/19 21:12 99 H 16 01/24/19 21:06 97.4 F L 98 H 20 108/82 01/24/19 21:00 98 H 16 01/24/19 19:24 100 H 01/24/19 16:34 102 H 123/83 01/24/19 15:18 98 H 15 01/24/19 15:12 92 H 16 01/24/19 11:03 94 H 01/24/19 10:05 110 H 16 01/24/19 10:00 01/24/19 09:57 95 H 16 01/24/19 09:10 98.3 F 109 H 18 120/89 Pulse Ox 01/25/19 05:09 01/25/19 05:07 100 01/25/19 00:37 98 01/24/19 21:23 98 01/24/19 21:12 01/24/19 21:06 98 01/24/19 21:00 01/24/19 19:24 01/24/19 16:34 99 01/24/19 15:18 01/24/19 15:12 01/24/19 11:03 01/24/19 10:05 01/24/19 10:00 97 01/24/19 09:57 01/24/19 09:10 99 - Physical Examination General: No Apparent Distress HEENT: Positive: PERRL Neck: Positive: neck supple Cardiac: Positive: Regular Rate, S1/S2, PMI, Dilated, Laterally Displaced. Negative: S3, S4 Lungs: Positive: clear to auscultation, No Wheeze, Rales, Rhonchi Neuro: Positive: Grossly Intact Abdomen: Positive: Unremarkable, Soft Skin: Positive: Clear Extremities: Absent: edema - Labs and Meds Cardiac Enzymes 01/24/19 Range/Units 18:20 CK-MB (CK-2) < 1.0 (0.0-4.0) ng/mL CBC 01/25/19 Range/Units 04:49 WBC 9.8 (4.5-11.0) K/mm3 RBC 3.26 L (3.65-5.03) M/mm3 Hgb 8.1 L (11.8-15.2) gm/dl Hct 25.7 L (35.5-45.6) % Plt Count 234 (140-440) K/mm3 Lymph # 0.6 L (1.2-5.4) K/mm3 [place] # 0.9 H (0.0-0.8) K/mm3 Eos # 0.0 (0.0-0.4) K/mm3 Baso # 0.0 (0.0-0.1) K/mm3 Comprehensive Metabolic Panel 01/25/19 Range/Units 04:49 Sodium 136 L (137-145) mmol/L Potassium 4.1 (3.6-5.0) mmol/L Chloride 93.4 L (98-107) mmol/L Carbon Dioxide 26 (22-30) mmol/L BUN 17 (9-20) mg/dL Creatinine 1.2 (0.8-1.5) mg/dL Glucose 107 H (75-100) mg/dL Calcium 9.0 (8.4-10.2) mg/dL Pacemaker: ventricular pacing w/capt
[2019-01-25] MEDS: DUONEB *Not for PRN Use IH SCH ×2 (08:22→14:31)
[2019-01-25] MEDS: LOPRESSOR PO SCH ×2 (10:09→21:07)
[2019-01-25] MEDS: MS CONTIN ER PO SCH ×2 (10:09→21:08)
[2019-01-25] MEDS: CORDARONE PO SCH ×2 (10:09→21:08)
[2019-01-25] MEDS: SODIUM CHLORIDE FLUSH SYRINGE 10 ML IV SCH ×2 (10:11→21:08)
--- NOTE | 2019-01-25 12:37 | Progress Note ---
Assessment and Plan Assessment and plan: Chest pain, recurrent. ECG on presentation was a ventricular pacemaker rhythm, but on telemetry since hospitalization it appears he has had recurrent, nonsustained monomorphic ventricular tachycardia. NSVT. As above. Continue metoprolol and amiodarone Esophageal CA (dx 09/2018, currently on chemo) last was 2 weeks ago. Oncology following Pulmonary embolism. Continue Xarelto. Dilated Nonischemic cardiomyopathy. Patient has an indwelling cardiac defibrillator. 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 History of atrial flutter. He has a history of atrial flutter status post YARELY guided cardioversion 11/2017. COPD, compensated. Bronchodilators/nebulizers GERD. PPI daily. History of Gout (stable) Anemia of chronic disease. Follow up H&H. Transfuse for hemoglobin less than 7. Hematology following Hypokalemia. Replete potassium as needed. DM type2. Accu-Cheks and sliding scale insulin. BRITTON on CPAP. Disposition. PT evaluation. History Interval history: Patient with [employer] called yesterday due to a run of nonsustained monomorphic ventricular tachycardia. She currently comfortable with no complaints Hospitalist Physical - Constitutional Vitals: Temp Pulse Resp BP Pulse Ox 97.9 F 105 H 18 120/80 100 01/25/19 08:25 01/25/19 08:31 01/25/19 08:25 01/25/19 08:25 01/25/19 08:25 General appearance: Present: no acute distress - EENT Eyes: Present: PERRL, EOM intact ENT: hearing intact, clear oral mucosa, dentition normal - Neck Neck: Present: supple, normal ROM - Respiratory Respiratory effort: normal Respiratory: bilateral: CTA - Cardiovascular Rhythm: regular Heart Sounds: Present: S1 & S2. Absent: gallop, rub - Extremities Extremities: no ischemia, No edema, Full ROM - Abdominal General gastrointestinal: soft, non-tender, non-distended, normal bowel sounds - Integumentary Integumentary: Present: clear, warm, dry - Neurologic Neurologic: CNII-XII intact, moves all extremities Results - Labs CBC & Chem 7: 01/25/19 04:49 01/25/19 04:49 Labs: Laboratory Last Values WBC 9.8 K/mm3 (4.5-11.0) 01/25/19 04:49 RBC 3.26 M/mm3 (3.65-5.03) L 01/25/19 04:49 Hgb 8.1 gm/dl (11.8-15.2) L 01/25/19 04:49 Hct 25.7 % (35.5-45.6) L 01/25/19 04:49 MCV 79 fl (84-94) L 01/25/19 04:49 MCH 25 pg (28-32) L 01/25/19 04:49 MCHC 32 % (32-34) 01/25/19 04:49 RDW 20.9 % (13.2-15.2) H 01/25/19 04:49 Plt Count 234 K/mm3 (140-440) 01/25/19 04:49 Lymph % (Auto) 6.0 % (13.4-35.0) L 01/25/19 04:49 [place] % (Auto) 8.7 % (0.0-7.3) H 01/25/19 04:49 Eos % (Auto) 0.1 % (0.0-4.3) 01/25/19 04:49 Baso % (Auto) 0.3 % (0.0-1.8) 01/25/19 04:49 Lymph # 0.6 K/mm3 (1.2-5.4) L 01/25/19 04:49 [place] # 0.9 K/mm3 (0.0-0.8) H 01/25/19 04:49 Eos # 0.0 K/mm3 (0.0-0.4) 01/25/19 04:49 Baso # 0.0 K/mm3 (0.0-0.1) 01/25/19 04:49 Seg Neutrophils % 84.9 % (40.0-70.0) H 01/25/19 04:49 Seg Neutrophils # 8.3 K/mm3 (1.8-7.7) H 01/25/19 04:49 PT 15.4 Sec. (12.2-14.9) H 01/22/19 02:38 INR 1.15 (0.87-1.13) H 01/22/19 02:38 APTT 31.5 Sec. (24.2-36.6) 01/22/19 02:38 D-Dimer 259.37 ng/mlDDU (0-234) H 01/24/19 18:20 Sodium 136 mmol/L (137-145) L 01/25/19 04:49 Potassium 4.1 mmol/L (3.6-5.0) 01/25/19 04:49 Chloride 93.4 mmol/L (98-107) L 01/25/19 04:49 Carbon Dioxide 26 mmol/L (22-30) 01/25/19 04:49 Anion Gap 21 mmol/L 01/25/19 04:49 BUN 17 mg/dL (9-20) 01/25/19 04:49 Creatinine 1.2 mg/dL (0.8-1.5) 01/25/19 04:49 Estimated GFR > 60 ml/min 01/25/19 04:49 BUN/Creatinine Ratio 14 % 01/25/19 04:49 Glucose 107 mg/dL (75-100) H 01/25/19 04:49 POC Glucose 107 (70-105) H 01/24/19 18:06 Calcium 9.0 mg/dL (8.4-10.2) 01/25/19 04:49 Magnesium 2.10 mg/dL (1.7-2.3) 01/23/19 14:49 Total Bilirubin 1.40 mg/dL (0.1-1.2) H 01/22/19 02:38 AST 13 units/L (5-40) 01/22/19 02:38 ALT 8 units/L (7-56) 01/22/19 02:38 Alkaline Phosphatase 58 units/L (35-129) 01/22/19 02:38 Total Creatine Kinase 13 units/L (55-170) L 01/24/19 18:20 CK-MB (CK-2) < 1.0 ng/mL (0.0-4.0) 01/24/19 18:20 CK-MB (CK-2) Rel Index 7.6 (0-4) H 01/24/19 18:20 Troponin T < 0.010 ng/mL (0.00-0.029) 01/24/19 18:20 NT-Pro-B Natriuret Pep 49433 pg/mL (0-900) H 01/24/19 18:20 Total Protein 6.4 g/dL (6.3-8.2) 01/22/19 02:38 Albumin 2.9 g/dL (3.9-5) L 01/22/19 02:38 Albumin/Globulin Ratio 0.8 % 01/22/19 02:38 Lipase 8 units/L (13-60) L 01/22/19 02:38 Active Medications - Current Medications Current Medications: Generic Name Dose Route Start Last Admin Trade Name Freq PRN Reason Stop Dose Admin Acetaminophen 650 mg 01/22/19 05:32 Tylenol PO Q4H PRN Pain MILD(1-3)/Fever >100.5/KNIGHT Albuterol 5 mg 01/22/19 19:02 01/22/19 21:37 Proventil IH 2.5 mg Q6HRT PRN Administration Shortness Of Breath Albuterol/Ipratropium 1 ampul 01/23/19 08:00 01/25/19 08:22 Duoneb *Not For Prn Use* IH 1 ampul TIDRT ROBERT Administration Amiodarone HCl 200 mg 01/25/19 10:00 01/25/19 10:09 Cordarone PO 200 mg BID ROBERT Administration Enoxaparin Sodium 110 mg 01/22/19 17:00 01/25/19 05:10 Lovenox SUB-Q 110 mg Q12H ROBERT Administration Hydromorphone HCl 0.5 mg 01/24/19 19:10 01/25/19 06:46 Dilaudid IV 0.5 mg Q4HR PRN Administration Pain , Severe (7-10) Sodium Chloride 1,000 mls @ 75 mls/hr 01/22/19 06:00 01/25/19 01:05 Nacl 0.9% 1000 Ml IV 75 mls/hr DIRECT ROBERT Administration Metoprolol Tartrate 25 mg 01/25/19 10:00 01/25/19 10:09 Lopressor PO 25 mg BID ROBERT Administration Morphine Sulfate 2 mg 01/22/19 05:32 01/24/19 16:29 Morphine IV 2 mg Q4H PRN Administration Pain, Moderate (4-6) Morphine Sulfate 15 mg 01/25/19 10:00 01/25/19 10:09 Ms Contin Er PO 15 mg Q12HR ROBERT Administration Ondansetron HCl 4 mg 01/22/19 05:32 01/25/19 01:05 Zofran IV 4 mg Q8H PRN Administration Nausea And Vomiting Oxycodone/Acetaminophen 1 tab 01/24/19 18:14 01/25/19 05:10 Percocet 5/325 PO 1 tab BID PRN Administration Pain, Moderate (4-6) Sodium Chloride 10 ml 01/22/19 10:00 01/25/19 10:11 Sodium Chloride Flush Syringe 10 Ml IV 10 ml BID ROBERT Administration Sodium Chloride 10 ml 01/22/19 05:32 01/23/19 03:52 Sodium Chloride Flush Syringe 10 Ml IV 10 ml PRN PRN Administration LINE FLUSH Nutrition/Malnutrition Assess - Dietary Evaluation Nutrition/Malnutrition Findings: Nutrition Notes Start: 01/23/19 10:41 Freq: Status: Active Protocol: Document 01/23/19 10:41 SA (Rec: 01/23/19 10:58 SA [id number]) Co-Sign 01/23/19 10:41 LP Nutrition Notes Need for Assessment generated from: MST Initial or Follow up Assessment Current Diagnosis COPD,Diabetes,Heart Failure Other Pertinent Diagnosis esophagel cancer on chemotherapy, PE, GERD, Gout, anemia, BRITTON on CPAP Current Diet Full liquid diet Labs/Tests Glu: 111 Albumin: 2.9 Pertinent Medications Reviewed Height 6 ft 4 in Weight 110.677 kg [place] Body Weight (kg) 91.81 BMI 29.7 Weight change and time frame 30# weight loss in 30 days Weight Status Overweight Subjective/Other Information Screened for MST score. Patient reports eating 25% of meals when on solid diet but he thinks he will be able to eat more now since diet has switched to full liquid. Pt states he has good appetite but unable to eat due to the pain of his esophagel cancer. Pt experiencing nausea from his meds. Pt reports unintentional weight loss of 30# in 30 days. Percent of energy/protein needs met: 21%/19% Burn Absent Trauma Absent Minimum of two criteria Yes Energy Intake (severe) < or equal to 50% Estimated Energy Requirement > or equal to 5 days Interpretation of Weight Loss (severe) >5% in 1 month #2 Nutrition Diagnosis Malnutrition Etiology severe weight loss and getting less than 50% of estimated energy requirements As Evidenced by Signs and Symptoms 30# weight loss in 30 days and eating less than 25% of meals #1 Nutrition Diagnosis Inadequate oral intake Etiology unable to eat solids due to pain caused by esophagel cancer As Evidenced by Signs and Symptoms eating less than 25% of meals and unintentional weight loss of 30# Is patient on ventilator? No Is Patient Ambulatory and/or Out of Bed No REE-([facility]-confined to bed) [phone] Calculation Used for Recommendations [facility] Additional Notes Protein: 1.2-1.5 g/kg (133-165 g/day) Fluid: 1 ml/kcal Nutrition Intervention Change Diet Order: Continue current Add Supplement/Snack (indicate name/kcal Glucerna 2 daily /protein ) Provides kCal: 440 Provides Protein (gm) 20 Goal #1 Meet at least 75% of kcal and pro needs via PO and ONS intakes Anticipated Discharge Needs: Unable to determine at this time Follow-Up By: 01/27/19 Additional Comments F/U: PO and ONS intakes
[2019-01-25] MEDS: BROVANA NEBU IH SCH (19:48)
[2019-01-25] MEDS: PULMICORT IH SCH (19:48)
[2019-01-25] MEDS ORDERED: PROTONIX IV ONE (23:30)
--- NOTE | 2019-01-25 23:36 | Event Note ---
Patient reported having coffee-ground emesis since 3 PM Give Protonix, protonix drip,check serial hemoglobin, PT/INR, give zofran, check chest x-ray Transfer to [facility], hold lovenox for now Consult GI, case d/w Dr Richey The high probability of a clinically significant, sudden or life threatening deterioration of the [CV, GI, respiratory] system(s) required my full and direct attention, intervention and personal management. The aggregate critical care time was [35 ] minutes. This time is in addition to time spent performing reported procedures but includes the following: x] Data Review and interpretation [x] Patient assessment and monitoring of vital signs [x] Documentation [x] Medication orders and management
[2019-01-25] MEDS ORDERED: PROTONIX 80 MG in NACL 0.9% 100 ML IV SCH (23:45)
[2019-01-26 00:13] LABS: INR 2.31 (0.87-1.13)
[2019-01-26 00:22] LABS: Hematocrit 28.4 % (35.5-45.6); Hemoglobin 8.4 gm/dl (11.8-15.2)
--- NOTE | 2019-01-26 02:12 | XRay Report ---
PROCEDURE: XR CHEST 1V AP TECHNIQUE: Chest radiograph single view. HISTORY: shortness of breath COMPARISONS: 01/19/2019 . FINDINGS: Heart: Borderline enlarged.. Mediastinum/Vessels: Normal. Lungs/Pleural space: The lungs are expanded. There are no infiltrates, effusions or pneumothoraces.. Bony thorax: No acute osseous abnormality. Life support devices: There is a right-sided Port-A-Cath. The tip is in the superior vena cava. Pacemaker leads are in proper position.. IMPRESSION: Heart is borderline enlarged.. The lungs are expanded. There are no infiltrates, effusions or pneumothoraces.. There is a right-sided Port-A-Cath. The tip is in the superior vena cava. Pacemaker leads are in proper position.. This document is electronically signed by Camilo Millan MD., January 26 2019 02:10:31 AM ET
[2019-01-26] MEDS: ZOFRAN IV PRN ×2 (03:32→07:49)
[2019-01-26] MEDS: DILAUDID IV PRN ×4 (03:32→22:15)
[2019-01-26] MEDS: BROVANA NEBU IH SCH ×2 (07:33→20:29)
[2019-01-26] MEDS: PULMICORT IH SCH ×2 (07:33→20:29)
[2019-01-26 08:02] LABS: Hematocrit 30.9 % (35.5-45.6); Hemoglobin 8.8 gm/dl (11.8-15.2)
--- NOTE | 2019-01-26 08:40 | Hem/Onc Progress Note ---
Assessment and Plan 1. Esophageal cancer, locally advanced, not a surgical candidate because of low ejection fraction. The patient on radiation therapy and 5-FU continuous infusion to augment the radiation; however, he has not been able to get chemotherapy. He received only 48 hours of 5-FU on 01/08/2019. After that, he was admitted to [facility] and now this. 2. History of pulmonary embolism, was on Xarelto, on Lovenox. 3. Pain issues, on pain medications. 4. History of diabetes. 5. History of weight loss. 6. History of hypertension. 7. History of hyperlipidemia. 8. Esophageal cancer. 9. 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 10. Low ejection fraction. 11. HER-2 negative in the tumor. 12. PEG tube was placed, now removed. The patient needs pain medication support. I will follow the patient during inpatient stay. long acting pain meds trial 01/26 pt off lovenox - not clear why - will talk to hosptialist being taken to [facility] anemia - a/sp IV iron PE esophageal ca - last chemo 12/21 0 - he was supposed to get IV small dose of 5 FU every other day - but he has been at [facility] - Patient Problems (1) Esophageal cancer Current Visit: No Status: Acute Subjective Date of service: 01/26/19 Principal diagnosis: esophageal ca - anemia - PE Interval history: pt being transferred to [facility] Objective - Constitutional Vitals: Last Vital Signs Temp 98.0 F 01/26/19 00:18 Pulse 113 H 01/26/19 07:41 Resp 24 01/26/19 07:41 BP 128/76 01/26/19 00:18 Pulse Ox 100 01/26/19 00:18 Pain Intensity (0-10): 3/10 (chest) General appearance: mild distress Performance status: 3-limited selfcare - EENT Eyes: EOM intact ENT: clear oral mucosa Lymph node exam: negative cervical - Neck Neck: normal ROM - Respiratory Respiratory effort: Positive: other (slight SOB) Respiratory: bilateral: diminished - Cardiovascular Heart Sounds: Present: S1 & S2 Extremity abnormal: edema - Gastrointestinal General gastrointestinal: Present: soft Rectal Exam: deferred - Genitourinary Male genitourinary: Present: deferred - Integumentary Integumentary: warm - Musculoskeletal Musculoskeletal: generalized weakness - Neurologic Neurologic: moves all extremities - Labs Lab Results: Laboratory Results - last 24 hr 01/25/19 01/25/19 01/26/19 23:32 23:32 07:21 Hgb 8.4 L 8.8 L Hct 28.4 L 30.9 L PT 27.0 H INR 2.31 H Medications & Allergies - Medications Allergies/Adverse Reactions: Allergies cephalexin monohydrate [From Keflex] Adverse Reaction (Verified 12/23/18 14:22) Shakes lidocaine Adverse Reaction (Verified 12/23/18 14:22) "Skin Yellowing" mushrooms Allergy (Uncoded 12/23/18 14:22) Anaphylaxis Home Medications: Home Medications Medication Instructions Recorded Confirmed Last Taken Type Magnesium Oxide 400 mg PO DAILY 08/31/16 01/23/19 12/26/18 History Insulin Glargine,Hum.rec.anlog 20 unit SQ HS 09/29/18 01/23/19 12/26/18 History [Lantus] Allopurinol [Zyloprim] 100 mg PO BID tablet 11/20/18 01/23/19 12/26/18 Rx Ferrous Sulfate [Feosol 325 MG tab] 325 mg PO BID tablet 11/20/18 01/23/19 12/26/18 Rx Lisinopril [Zestril TAB] 2.5 mg PO BID tablet 11/20/18 01/23/19 12/26/18 Rx Digoxin [Lanoxin] 0.125 mg PO DAILY 12/10/18 01/23/19 12/26/18 History Gabapentin [Neurontin] 300 mg PO DAILY 12/10/18 01/23/19 12/26/18 History Omeprazole 20 mg PO DAILY 12/10/18 01/23/19 12/26/18 History glipiZIDE [Glipizide] 10 mg PO DAILY 12/10/18 01/23/19 12/26/18 History Aspirin [Aspirin BABY CHEW TAB] 81 mg PO QDAY 12/20/18 01/23/19 12/26/18 History Potassium Chloride [Klor-Con M20] 20 meq PO BID 12/20/18 01/23/19 12/26/18 History Tizanidine HCl [Zanaflex] 4 mg PO BID 12/23/18 01/23/19 12/26/18 History Oxycodone HCl/Acetaminophen 1 each PO Q6HR PRN #20 tablet 12/24/18 01/23/19 12/26/18 Rx [Percocet 7.5/325 mg] Hydromorphone HCl [Dilaudid] 4 mg PO Q12HR PRN #20 tablet 01/06/19 01/23/19 Unknown Rx Rivaroxaban [Xarelto] 20 mg PO QDAY #30 tablet 01/06/19 01/23/19 Unknown Rx Carvedilol [Coreg] 12.5 mg PO BID #60 tablet 01/09/19 01/23/19 Unknown Rx Demadex 100 mg PO QDAY 01/09/19 01/23/19 Unknown History Active Medications: Generic Name Dose Route Start Last Admin Trade Name Freq PRN Reason Stop Dose Admin Acetaminophen 650 mg 01/22/19 05:32 Tylenol PO Q4H PRN Pain MILD(1-3)/Fever >100.5/KNIGHT Albuterol 5 mg 01/22/19 19:02 01/22/19 21:37 Proventil IH 2.5 mg Q6HRT PRN Administration Shortness Of Breath Amiodarone HCl 200 mg 01/25/19 10:00 01/25/19 21:08 Cordarone PO 200 mg BID ROBERT Administration Arformoterol Tartrate 15 mcg 01/25/19 20:00 01/26/19 07:33 Brovana Nebu IH 15 mcg Q12HRT ROBERT Administration Budesonide 0.5 mg 01/25/19 20:00 01/26/19 07:33 Pulmicort IH 0.5 mg Q12HRT ROBERT Administration Hydromorphone HCl 0.5 mg 01/24/19 19:10 01/26/19 07:49 Dilaudid IV 0.5 mg Q4HR PRN Administration Pain , Severe (7-10) Sodium Chloride 1,000 mls @ 75 mls/hr 01/22/19 06:00 01/25/19 15:14 Nacl 0.9% 1000 Ml IV 75 mls/hr DIRECT ROBERT Administration Pantoprazole Sodium 80 mg/ 100 mls @ 10 mls/hr 01/25/19 23:45 01/26/19 00:19 Sodium Chloride IV 8 mg/hr DIRECT ROBERT 10 mls/hr Administration 8 MG/HR Metoprolol Tartrate 25 mg 01/25/19 10:00 01/25/19 21:07 Lopressor PO 25 mg BID ROBERT Administration Morphine Sulfate 2 mg 01/22/19 05:32 01/24/19 16:29 Morphine IV 2 mg Q4H PRN Administration Pain, Moderate (4-6) Morphine Sulfate 15 mg 01/25/19 10:00 01/25/19 21:08 Ms Contin Er PO 15 mg Q12HR ROBERT Administration Ondansetron HCl 4 mg 01/25/19 23:49 01/26/19 07:49 Zofran IV 4 mg Q4H PRN Administration Nausea And Vomiting Oxycodone/Acetaminophen 1 tab 01/24/19 18:14 01/25/19 19:57 Percocet 5/325 PO 1 tab BID PRN Administration Pain, Moderate (4-6) Sodium Chloride 10 ml 01/22/19 10:00 01/25/19 21:08 Sodium Chloride Flush Syringe 10 Ml IV 10 ml BID ROBERT Administration Sodium Chloride 10 ml 01/22/19 05:32 01/23/19 03:52 Sodium Chloride Flush Syringe 10 Ml IV 10 ml PRN PRN Administration LINE FLUSH
[2019-01-26] MEDS: CORDARONE PO SCH ×2 (10:09→22:08)
[2019-01-26] MEDS: LOPRESSOR PO SCH ×2 (10:09→22:08)
[2019-01-26] MEDS: MS CONTIN ER PO SCH ×2 (10:09→22:07)
[2019-01-26] MEDS: SODIUM CHLORIDE FLUSH SYRINGE 10 ML IV SCH ×2 (10:22→22:15)
--- NOTE | 2019-01-26 11:29 | Progress Note ---
Assessment and Plan Assessment and plan: Coffee-ground emesis. GI consultation. Continue Protonix drip. Chest pain, recurrent. ECG on presentation was a ventricular pacemaker rhythm, but on telemetry since hospitalization it appears he has had recurrent, nonsustained monomorphic ventricular tachycardia. NSVT. As above. Continue metoprolol and amiodarone Esophageal CA (dx 09/2018, currently on chemo) last was 2 weeks ago. Oncology following Pulmonary embolism. Continue Xarelto. Patient with known recent diagnosis of PE ([facility] 2 weeks ago--per pt). CTA completed on this hospitalization, however, reveals pulmonary emboli and the distal basilar branches bilaterally with multifocal bilateral basilar infiltrates versus early lung infarctions. Dilated Nonischemic cardiomyopathy. Patient has an indwelling cardiac defi brillator. Presence of CASE [employer]-ICD ([employer])In December 2017, he underwent a cardiac catheterization that revealed no significant coronary artery disease, ejection fraction 15%. History of atrial flutter. He has a history of atrial flutter status post YARELY guided cardioversion 11/2017. COPD, compensated. Bronchodilators/nebulizers Acute hypoxemic respiratory failure. Check ABG. Chest x-ray no infiltrates or effusions. Etiology likely secondary to PE and COPD. Consult pulmonary for further evaluation. GERD. PPI daily. History of Gout (stable) Anemia of chronic disease. Follow up H&H. Transfuse for hemoglobin less than 7. Hematology following Hypokalemia. Replete potassium as needed. DM type2. Accu-Cheks and sliding scale insulin. BRITTON on CPAP. Disposition. Patient will be transferred to [facility] for closer monitoring. The high probability of a clinically significant, sudden or life threatening deterioration of the [respiratory and cardiac] system(s) required my full and direct attention, intervention and personal management. The aggregate critical care time was [33] minutes. This time is in addition to time spent performing reported procedures but includes the following: [x] Data Review and interpretation [x] Patient assessment and monitoring of vital signs [x] Documentation [x] Medication orders and management History Interval history: Events of last night noted. Patient reportedly had a coffee-ground emesis. Hospitalist Physical - Constitutional Vitals: Temp Pulse Resp BP Pulse Ox 98.0 F 109 H 20 128/76 100 01/26/19 08:44 01/26/19 10:09 01/26/19 08:44 01/26/19 10:09 01/26/19 08:44 General appearance: Present: no acute distress - EENT Eyes: Present: PERRL, EOM intact ENT: hearing intact, clear oral mucosa, dentition normal - Neck Neck: Present: supple, normal ROM - Respiratory Respiratory effort: normal Respiratory: bilateral: CTA - Cardiovascular Rhythm: regular Heart Sounds: Present: S1 & S2. Absent: gallop, rub - Extremities Extremities: no ischemia, No edema, Full ROM - Abdominal General gastrointestinal: soft, non-tender, non-distended, normal bowel sounds - Integumentary Integumentary: Present: clear, warm, dry - Neurologic Neurologic: CNII-XII intact, moves all extremities Results - Labs CBC & Chem 7: 01/26/19 07:21 01/25/19 04:49 Labs: Laboratory Last Values WBC 9.8 K/mm3 (4.5-11.0) 01/25/19 04:49 RBC 3.26 M/mm3 (3.65-5.03) L 01/25/19 04:49 Hgb 8.8 gm/dl (11.8-15.2) L 01/26/19 07:21 Hct 30.9 % (35.5-45.6) L 01/26/19 07:21 MCV 79 fl (84-94) L 01/25/19 04:49 MCH 25 pg (28-32) L 01/25/19 04:49 MCHC 32 % (32-34) 01/25/19 04:49 RDW 20.9 % (13.2-15.2) H 01/25/19 04:49 Plt Count 234 K/mm3 (140-440) 01/25/19 04:49 Lymph % (Auto) 6.0 % (13.4-35.0) L 01/25/19 04:49 [place] % (Auto) 8.7 % (0.0-7.3) H 01/25/19 04:49 Eos % (Auto) 0.1 % (0.0-4.3) 01/25/19 04:49 Baso % (Auto) 0.3 % (0.0-1.8) 01/25/19 04:49 Lymph # 0.6 K/mm3 (1.2-5.4) L 01/25/19 04:49 [place]gett # 0.9 K/mm3 (0.0-0.8) H 01/25/19 04:49 Eos # 0.0 K/mm3 (0.0-0.4) 01/25/19 04:49 Baso # 0.0 K/mm3 (0.0-0.1) 01/25/19 04:49 Seg Neutrophils % 84.9 % (40.0-70.0) H 01/25/19 04:49 Seg Neutrophils # 8.3 K/mm3 (1.8-7.7) H 01/25/19 04:49 PT 27.0 Sec. (12.2-14.9) H 01/25/19 23:32 INR 2.31 (0.87-1.13) H 01/25/19 23:32 APTT 31.5 Sec. (24.2-36.6) 01/22/19 02:38 D-Dimer 259.37 ng/mlDDU (0-234) H 01/24/19 18:20 Sodium 136 mmol/L (137-145) L 01/25/19 04:49 Potassium 4.1 mmol/L (3.6-5.0) 01/25/19 04:49 Chloride 93.4 mmol/L (98-107) L 01/25/19 04:49 Carbon Dioxide 26 mmol/L (22-30) 01/25/19 04:49 Anion Gap 21 mmol/L 01/25/19 04:49 BUN 17 mg/dL (9-20) 01/25/19 04:49 Creatinine 1.2 mg/dL (0.8-1.5) 01/25/19 04:49 Estimated GFR > 60 ml/min 01/25/19 04:49 BUN/Creatinine Ratio 14 % 01/25/19 04:49 Glucose 107 mg/dL (75-100) H 01/25/19 04:49 POC Glucose 107 (70-105) H 01/24/19 18:06 Calcium 9.0 mg/dL (8.4-10.2) 01/25/19 04:49 Magnesium 2.10 mg/dL (1.7-2.3) 01/23/19 14:49 Total Bilirubin 1.40 mg/dL (0.1-1.2) H 01/22/19 02:38 AST 13 units/L (5-40) 01/22/19 02:38 ALT 8 units/L (7-56) 01/22/19 02:38 Alkaline Phosphatase 58 units/L (35-129) 01/22/19 02:38 Total Creatine Kinase 13 units/L (55-170) L 01/24/19 18:20 CK-MB (CK-2) < 1.0 ng/mL (0.0-4.0) 01/24/19 18:20 CK-MB (CK-2) Rel Index 7.6 (0-4) H 01/24/19 18:20 Troponin T < 0.010 ng/mL (0.00-0.029) 01/24/19 18:20 NT-Pro-B Natriuret Pep 98837 pg/mL (0-900) H 01/24/19 18:20 Total Protein 6.4 g/dL (6.3-8.2) 01/22/19 02:38 Albumin 2.9 g/dL (3.9-5) L 01/22/19 02:38 Albumin/Globulin Ratio 0.8 % 01/22/19 02:38 Lipase 8 units/L (13-60) L 01/22/19 02:38 Active Medications - Current Medications Current Medications: Generic Name Dose Route Start Last Admin Trade Name Freq PRN Reason Stop Dose Admin Acetaminophen 650 mg 01/22/19 05:32 Tylenol PO Q4H PRN Pain MILD(1-3)/Fever >100.5/KNIGHT Albuterol 5 mg 01/22/19 19:02 01/22/19 21:37 Proventil IH 2.5 mg Q6HRT PRN Administration Shortness Of Breath Amiodarone HCl 200 mg 01/25/19 10:00 01/26/19 10:09 Cordarone PO 200 mg BID ROBERT Administration Arformoterol Tartrate 15 mcg 01/25/19 20:00 01/26/19 07:33 Brovana Nebu IH 15 mcg Q12HRT ROBERT Administration Budesonide 0.5 mg 01/25/19 20:00 01/26/19 07:33 Pulmicort IH 0.5 mg Q12HRT ROBERT Administration Hydromorphone HCl 0.5 mg 01/24/19 19:10 01/26/19 07:49 Dilaudid IV 0.5 mg Q4HR PRN Administration Pain , Severe (7-10) Sodium Chloride 1,000 mls @ 75 mls/hr 01/22/19 06:00 01/25/19 15:14 Nacl 0.9% 1000 Ml IV 75 mls/hr DIRECT ROBERT Administration Pantoprazole Sodium 80 mg/ 100 mls @ 10 mls/hr 01/25/19 23:45 01/26/19 00:19 Sodium Chloride IV 8 mg/hr DIRECT ROBERT 10 mls/hr Administration 8 MG/HR Metoprolol Tartrate 25 mg 01/25/19 10:00 01/26/19 10:09 Lopressor PO 25 mg BID ROBERT Administration Morphine Sulfate 2 mg 01/22/19 05:32 01/24/19 16:29 Morphine IV 2 mg Q4H PRN Administration Pain, Moderate (4-6) Morphine Sulfate 15 mg 01/25/19 10:00 01/26/19 10:09 Ms Contin Er PO 15 mg Q12HR ROBERT Administration Ondansetron HCl 4 mg 01/25/19 23:49 01/26/19 07:49 Zofran IV 4 mg Q4H PRN Administration Nausea And Vomiting Oxycodone/Acetaminophen 1 tab 01/24/19 18:14 01/25/19 19:57 Percocet 5/325 PO 1 tab BID PRN Administration Pain, Moderate (4-6) Sodium Chloride 10 ml 01/22/19 10:00 01/26/19 10:22 Sodium Chloride Flush Syringe 10 Ml IV 10 ml BID ROBERT Administration Sodium Chloride 10 ml 01/22/19 05:32 01/23/19 03:52 Sodium Chloride Flush Syringe 10 Ml IV 10 ml PRN PRN Administration LINE FLUSH Nutrition/Malnutrition Assess - Dietary Evaluation Nutrition/Malnutrition Findings: Nutrition Notes Start: 01/23/19 10:41 Freq: Status: Active Protocol: Document 01/23/19 10:41 SA (Rec: 01/23/19 10:58 SA [id number]) Co-Sign 01/23/19 10:41 LP Nutrition Notes Need for Assessment generated from: MST Initial or Follow up Assessment Current Diagnosis COPD,Diabetes,Heart Failure Other Pertinent Diagnosis esophagel cancer on chemotherapy, PE, GERD, Gout, anemia, BRITTON on CPAP Current Diet Full liquid diet Labs/Tests Glu: 111 Albumin: 2.9 Pertinent Medications Reviewed Height 6 ft 4 in Weight 110.677 kg [place] Body Weight (kg) 91.81 BMI 29.7 Weight change and time frame 30# weight loss in 30 days Weight Status Overweight Subjective/Other Information Screened for MST score. Patient reports eating 25% of meals when on solid diet but he thinks he will be able to eat more now since diet has switched to full liquid. Pt states he has good appetite but unable to eat due to the pain of his esophagel cancer. Pt experiencing nausea from his meds. Pt reports unintentional weight loss of 30# in 30 days. Percent of energy/protein needs met: 21%/19% Burn Absent Trauma Absent Minimum of two criteria Yes Energy Intake (severe) < or equal to 50% Estimated Energy Requirement > or equal to 5 days Interpretation of Weight Loss (severe) >5% in 1 month #2 Nutrition Diagnosis Malnutrition Etiology severe weight loss and getting less than 50% of estimated energy requirements As Evidenced by Signs and Symptoms 30# weight loss in 30 days and eating less than 25% of meals #1 Nutrition Diagnosis Inadequate oral intake Etiology unable to eat solids due to pain caused by esophagel cancer As Evidenced by Signs and Symptoms eating less than 25% of meals and unintentional weight loss of 30# Is patient on ventilator? No Is Patient Ambulatory and/or Out of Bed No REE-([facility]-confined to bed) [phone] Calculation Used for Recommendations [facility] Additional Notes Protein: 1.2-1.5 g/kg (133-165 g/day) Fluid: 1 ml/kcal Nutrition Intervention Change Diet Order: Continue current Add Supplement/Snack (indicate name/kcal Glucerna 2 daily /protein ) Provides kCal: 440 Provides Protein (gm) 20 Goal #1 Meet at least 75% of kcal and pro needs via PO and ONS intakes Anticipated Discharge Needs: Unable to determine at this time Follow-Up By: 01/27/19 Additional Comments F/U: PO and ONS intakes
--- NOTE | 2019-01-26 12:21 | Progress Note ---
Assessment and Plan 1. Dilated nonischemic cardiomyopathy 2. Chronic obstructive pulmonary disease 3. Esophageal cancer 4. Type 2 diabetes mellitus 5. Essential hypertension 6. Hyperlipidemia 7. NSVT Plan. Tranfered to the unit. cardiac richardson stable. Subjective Date of service: 01/26/19 Principal diagnosis: esophageal ca - anemia - PE Interval history: Patient complains of pain . noticed to be short of breath and hypoxemic beig tranfered to ICU Objective Vital Signs Temp Pulse Pulse Pulse Pulse Pulse Pulse 01/26/19 10:09 109 H 01/26/19 10:00 113 H 113 H 113 H 113 H 113 H 01/26/19 08:44 98.0 F 86 01/26/19 07:41 01/26/19 07:33 01/26/19 00:18 98.0 F 101 H 01/25/19 22:00 92 H 01/25/19 20:31 01/25/19 20:03 01/25/19 20:00 98.0 F 102 H 01/25/19 19:51 01/25/19 18:44 01/25/19 15:49 97.9 F 102 H 01/25/19 15:15 01/25/19 14:32 01/25/19 14:31 Pulse Resp Resp BP Pulse Ox 01/26/19 10:09 128/76 01/26/19 10:00 24 98 01/26/19 08:44 20 137/97 100 01/26/19 07:41 113 H 24 01/26/19 07:33 117 H 28 H 01/26/19 00:18 18 128/76 100 01/25/19 22:00 01/25/19 20:31 96 01/25/19 20:03 101 H 22 01/25/19 20:00 18 130/90 100 01/25/19 19:51 99 H 22 01/25/19 18:44 20 01/25/19 15:49 20 116/79 99 01/25/19 15:15 22 01/25/19 14:32 92 H 16 01/25/19 14:31 104 H 17 - Physical Examination General: No Apparent Distress, Other (moderately obeses) HEENT: Positive: PERRL Neck: Positive: neck supple Cardiac: Positive: Regular Rate, S3, PMI, Laterally Displaced Lungs: Positive: clear to auscultation, No Wheeze, Rales, Rhonchi Neuro: Positive: Grossly Intact Abdomen: Positive: Unremarkable, Soft Skin: Positive: Clear Extremities: Absent: edema - Labs and Meds Coagulation 01/25/19 Range/Units 23:32 PT 27.0 H (12.2-14.9) Sec. INR 2.31 H (0.87-1.13) CBC 01/25/19 01/26/19 Range/Units 23:32 07:21 Hgb 8.4 L 8.8 L (11.8-15.2) gm/dl Hct 28.4 L 30.9 L (35.5-45.6) % Pacemaker: ventricular pacing w/capt
--- NOTE | 2019-01-26 12:29 | Gastroenterology Consultation ---
History of Present Illness - Reason for Consult Consult date: 01/26/19 Coffee Ground Emesis Requesting physician: DANIELLE RIVERA - History of Present Illness Patient is a 48 y/o male who is previously known to our service on whom I have been consulted for a possible GI bleed. He was recently diagnosed with esophageal cancer s/p EGD on 11/07/18 (followed by surgical oncologist at [facility] with patient reporting no chemo/radiation gotten yet due to recurrent severe illnesses) with associated chronic symptoms of substernal CP/abd pain, N/V, and anemia to which he was admitted (multiple previous hospitalizations for similar symptoms). This morning patient was resting in bed w/o acute distress. Reports vomiting up coffee-ground emesis upon admission, which has now resolved. No active hematemesis, melena, or hematochezia. His Chief complaint now is SOB and feeling hot. Admits to CP/abd pain that is unchanged from prior hospitalizations. PMH significant for nonischemic cardiomyopathy (EF 10-15%), PE, BRITTON, VT/VF (s/p AICD), paroxysmal Afib (s/p cardioversion), severe pulmonary hypertension, HTN, DM, sleep apnea, chronic obstructive pulmonary disease, obesity, and PE (on Xarelto at home). patient home meds reviewed/updated/obtained Past History Past Medical History: cancer, COPD, diabetes, heart failure, hypertension, hyperlipidemia Past Surgical History: Other (port insertion) Social history: no significant social history Family history: no significant family history Medications and Allergies Allergies Allergy/AdvReac Type Severity Reaction Status Date / Time cephalexin monohydrate AdvReac Shakes Verified 12/23/18 14:22 [From Keflex] lidocaine AdvReac "Skin Verified 12/23/18 14:22 Yellowing" mushrooms Allergy Anaphylaxis Uncoded 12/23/18 14:22 Home Medications Medication Instructions Recorded Confirmed Last Taken Type Magnesium Oxide 400 mg PO DAILY 08/31/16 01/23/19 12/26/18 History Insulin Glargine,Hum.rec.anlog 20 unit SQ HS 09/29/18 01/23/19 12/26/18 History [Lantus] Allopurinol [Zyloprim] 100 mg PO BID tablet 11/20/18 01/23/19 12/26/18 Rx Ferrous Sulfate [Feosol 325 MG tab] 325 mg PO BID tablet 11/20/18 01/23/19 12/26/18 Rx Lisinopril [Zestril TAB] 2.5 mg PO BID tablet 11/20/18 01/23/19 12/26/18 Rx Digoxin [Lanoxin] 0.125 mg PO DAILY 12/10/18 01/23/19 12/26/18 History Gabapentin [Neurontin] 300 mg PO DAILY 12/10/18 01/23/19 12/26/18 History Omeprazole 20 mg PO DAILY 12/10/18 01/23/19 12/26/18 History glipiZIDE [Glipizide] 10 mg PO DAILY 12/10/18 01/23/19 12/26/18 History Aspirin [Aspirin BABY CHEW TAB] 81 mg PO QDAY 12/20/18 01/23/19 12/26/18 History Potassium Chloride [Klor-Con M20] 20 meq PO BID 12/20/18 01/23/19 12/26/18 History Tizanidine HCl [Zanaflex] 4 mg PO BID 12/23/18 01/23/19 12/26/18 History Oxycodone HCl/Acetaminophen 1 each PO Q6HR PRN #20 tablet 12/24/18 01/23/19 12/26/18 Rx [Percocet 7.5/325 mg] Hydromorphone HCl [Dilaudid] 4 mg PO Q12HR PRN #20 tablet 01/06/19 01/23/19 Unknown Rx Rivaroxaban [Xarelto] 20 mg PO QDAY #30 tablet 01/06/19 01/23/19 Unknown Rx Carvedilol [Coreg] 12.5 mg PO BID #60 tablet 01/09/19 01/23/19 Unknown Rx Demadex 100 mg PO QDAY 01/09/19 01/23/19 Unknown History Active Meds: Active Medications Acetaminophen (Tylenol) 650 mg PO Q4H PRN PRN Reason: Pain MILD(1-3)/Fever >100.5/KNIGHT Albuterol (Proventil) 5 mg IH Q6HRT PRN PRN Reason: Shortness Of Breath Last Admin: 01/22/19 21:37 Dose: 2.5 mg Documented by: Amiodarone HCl (Cordarone) 200 mg PO BID [facility] Last Admin: 01/26/19 10:09 Dose: 200 mg Documented by: Arformoterol Tartrate (Brovana Nebu) 15 mcg IH Q12HRT [facility] Last Admin: 01/26/19 07:33 Dose: 15 mcg Documented by: Budesonide (Pulmicort) 0.5 mg IH Q12HRT [facility] Last Admin: 01/26/19 07:33 Dose: 0.5 mg Documented by: Hydromorphone HCl (Dilaudid) 0.5 mg IV Q4HR PRN PRN Reason: Pain , Severe (7-10) Last Admin: 01/26/19 07:49 Dose: 0.5 mg Documented by: Sodium Chloride (Nacl 0.9% 1000 Ml) 1,000 mls @ 75 mls/hr IV DIRECT [facility] Last Admin: 01/25/19 15:14 Dose: 75 mls/hr Documented by: Pantoprazole Sodium 80 mg/ (Sodium Chloride) 100 mls @ 10 mls/hr IV DIRECT [facility] Last Admin: 01/26/19 00:19 Dose: 8 mg/hr, 10 mls/hr Documented by: Metoprolol Tartrate (Lopressor) 25 mg PO BID [facility] Last Admin: 01/26/19 10:09 Dose: 25 mg Documented by: Morphine Sulfate (Morphine) 2 mg IV Q4H PRN PRN Reason: Pain, Moderate (4-6) Last Admin: 01/24/19 16:29 Dose: 2 mg Documented by: Morphine Sulfate (Ms Contin Er) 15 mg PO Q12HR [facility] Last Admin: 01/26/19 10:09 Dose: 15 mg Documented by: Ondansetron HCl (Zofran) 4 mg IV Q4H PRN PRN Reason: Nausea And Vomiting Last Admin: 01/26/19 07:49 Dose: 4 mg Documented by: Oxycodone/Acetaminophen (Percocet 5/325) 1 tab PO BID PRN PRN Reason: Pain, Moderate (4-6) Last Admin: 01/25/19 19:57 Dose: 1 tab Documented by: Sodium Chloride (Sodium Chloride Flush Syringe 10 Ml) 10 ml IV BID [facility] Last Admin: 01/26/19 10:22 Dose: 10 ml Documented by: Sodium Chloride (Sodium Chloride Flush Syringe 10 Ml) 10 ml IV PRN PRN PRN Reason: LINE FLUSH Last Admin: 01/23/19 03:52 Dose: 10 ml Documented by: Review of Systems - Review of Systems All systems: negative Exam - Constitutional Vital Signs: Temp Pulse Resp BP Pulse Ox 98.0 F 109 H 24 128/76 98 01/26/19 08:44 01/26/19 10:09 01/26/19 10:00 01/26/19 10:09 01/26/19 10:00 General appearance: mild distress - EENT Eyes: PERRL ENT: hearing intact - Neck Neck: supple - Respiratory Respiratory effort: labored Respiratory: bilateral: rhonchi - Cardiovascular Rhythm: other (tachy) - Gastrointestinal General gastrointestinal: Present: soft, tender Rectal Exam: deferred - Integumentary Integumentary: Present: dry - Musculoskeletal Musculoskeletal: normal - Neurologic Neurological: alert and oriented x3 - Psychiatric Psychiatric: appropriate mood/affect - Labs CBC & Chem 7: 01/26/19 07:21 01/25/19 04:49 Lab Results: Laboratory Results - last 24 hr 01/25/19 01/25/19 01/26/19 23:32 23:32 07:21 Hgb 8.4 L 8.8 L Hct 28.4 L 30.9 L PT 27.0 H INR 2.31 H Assessment and Plan Patient with significant SOB being transferred to ICU shortly Regarding possible GI bleeding, strongly suspect due to the known esophageal CA and on blood thinners. I recommend BID PPI as patient not actively bleeding, carafate slurry, and monitor Hgb. If Hgb stable and no active bleeding then reasonable to resume blood thinners given patient at high risk for recurrent PE If hgb dropping then do not resume blood thinners and consider IVC filter placement to prevent recurrent PE - Patient Problems (1) Coffee ground emesis Current Visit: No Status: Acute (2) Esophageal cancer Current Visit: No Status: Acute (3) Hx pulmonary embolism Current Visit: No Status: Acute
[2019-01-27] MEDS: BROVANA NEBU IH SCH ×2 (07:55→19:34)
--- NOTE | 2019-01-27 07:55 | Hem/Onc Progress Note ---
Assessment and Plan 1. Esophageal cancer, locally advanced, not a surgical candidate because of low ejection fraction. The patient on radiation therapy and 5-FU continuous infusion to augment the radiation; however, he has not been able to get chemotherapy. He received only 48 hours of 5-FU on 01/08/2019. After that, he was admitted to [facility] and now this. 2. History of pulmonary embolism, was on Xarelto, on Lovenox. 3. Pain issues, on pain medications. 4. History of diabetes. 5. History of weight loss. 6. History of hypertension. 7. History of hyperlipidemia. 8. Esophageal cancer. 9. 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 10. Low ejection fraction. 11. HER-2 negative in the tumor. 12. PEG tube was placed, now removed. The patient needs pain medication support. I will follow the patient during inpatient stay. long acting pain meds trial 01/26 pt off lovenox - not clear why - will talk to hosptialist being taken [place] [facility] anemia - a/sp IV iron PE esophageal ca - last chemo 12/21 0 - he was supposed to get IV small dose of 5 FU every other day - but he has been at [facility] 01/27 off lovenox due to gi bleed CTA shows increse in PE - comapred to past from [place] anemia - s/p iv iron esopahgeal ca pt got one 5 fu low dose on 01/[address] del castillo - Patient Problems (1) Esophageal cancer Current Visit: No Status: Acute Subjective Date of service: 01/27/19 Principal diagnosis: esophageal ca - PE -a nemia Interval history: d/w dr duenas - pt had GI bleed - off lovenox Objective - Constitutional Vitals: Last Vital Signs Temp 97.5 F L 01/27/19 04:00 Pulse 86 01/27/19 06:00 Resp 16 01/27/19 06:00 BP 126/70 01/27/19 06:00 Pulse Ox 100 01/27/19 06:00 Pain Intensity (0-10): 1/10 General appearance: mild distress Performance status: 3-limited selfcare - EENT Eyes: EOM intact ENT: clear oral mucosa Lymph node exam: negative cervical - Neck Neck: normal ROM - Respiratory Respiratory effort: Positive: normal Respiratory: bilateral: diminished - Cardiovascular Heart Sounds: Present: S1 & S2 Extremities: normal temperature - Gastrointestinal General gastrointestinal: Present: soft, non-tender Rectal Exam: deferred - Genitourinary Male genitourinary: Present: deferred - Integumentary Integumentary: warm - Musculoskeletal Musculoskeletal: generalized weakness - Neurologic Neurologic: moves all extremities - Labs Lab Results: Laboratory Results - last 24 hr 01/26/19 07:21 Hgb 8.8 L Hct 30.9 L Medications & Allergies - Medications Allergies/Adverse Reactions: Allergies cephalexin monohydrate [From Keflex] Adverse Reaction (Verified 12/23/18 14:22) Shakes lidocaine Adverse Reaction (Verified 12/23/18 14:22) "Skin Yellowing" mushrooms Allergy (Uncoded 12/23/18 14:22) Anaphylaxis Home Medications: Home Medications Medication Instructions Recorded Confirmed Last Taken Type Magnesium Oxide 400 mg PO DAILY 08/31/16 01/23/19 12/26/18 History Insulin Glargine,Hum.rec.anlog 20 unit SQ HS 09/29/18 01/23/19 12/26/18 History [Lantus] Allopurinol [Zyloprim] 100 mg PO BID tablet 11/20/18 01/23/19 12/26/18 Rx Ferrous Sulfate [Feosol 325 MG tab] 325 mg PO BID tablet 11/20/18 01/23/19 12/26/18 Rx Lisinopril [Zestril TAB] 2.5 mg PO BID tablet 11/20/18 01/23/19 12/26/18 Rx Digoxin [Lanoxin] 0.125 mg PO DAILY 12/10/18 01/23/19 12/26/18 History Gabapentin [Neurontin] 300 mg PO DAILY 12/10/18 01/23/19 12/26/18 History Omeprazole 20 mg PO DAILY 12/10/18 01/23/19 12/26/18 History glipiZIDE [Glipizide] 10 mg PO DAILY 12/10/18 01/23/19 12/26/18 History Aspirin [Aspirin BABY CHEW TAB] 81 mg PO QDAY 12/20/18 01/23/19 12/26/18 History Potassium Chloride [Klor-Con M20] 20 meq PO BID 12/20/18 01/23/19 12/26/18 History Tizanidine HCl [Zanaflex] 4 mg PO BID 12/23/18 01/23/19 12/26/18 History Oxycodone HCl/Acetaminophen 1 each PO Q6HR PRN #20 tablet 12/24/18 01/23/19 12/26/18 Rx [Percocet 7.5/325 mg] Hydromorphone HCl [Dilaudid] 4 mg PO Q12HR PRN #20 tablet 01/06/19 01/23/19 Unknown Rx Rivaroxaban [Xarelto] 20 mg PO QDAY #30 tablet 01/06/19 01/23/19 Unknown Rx Carvedilol [Coreg] 12.5 mg PO BID #60 tablet 01/09/19 01/23/19 Unknown Rx Demadex 100 mg PO QDAY 01/09/19 01/23/19 Unknown History Active Medications: Generic Name Dose Route Start Last Admin Trade Name Freq PRN Reason Stop Dose Admin Acetaminophen 650 mg 01/22/19 05:32 Tylenol PO Q4H PRN Pain MILD(1-3)/Fever >100.5/KNIGHT Albuterol 5 mg 01/22/19 19:02 01/22/19 21:37 Proventil IH 2.5 mg Q6HRT PRN Administration Shortness Of Breath Amiodarone HCl 200 mg 01/25/19 10:00 01/26/19 22:08 Cordarone PO 200 mg BID ROBERT Administration Arformoterol Tartrate 15 mcg 01/25/19 20:00 01/27/19 07:55 Brovana Nebu IH 15 mcg Q12HRT ROBERT Administration Budesonide 0.5 mg 01/25/19 20:00 01/26/19 20:29 Pulmicort IH 0.5 mg Q12HRT ROBERT Administration Hydromorphone HCl 0.5 mg 01/24/19 19:10 01/26/19 22:15 Dilaudid IV 0.5 mg Q4HR PRN Administration Pain , Severe (7-10) Sodium Chloride 1,000 mls @ 75 mls/hr 01/22/19 06:00 01/25/19 15:14 Nacl 0.9% 1000 Ml IV 75 mls/hr DIRECT ROBERT Administration Pantoprazole Sodium 80 mg/ 100 mls @ 10 mls/hr 01/25/19 23:45 01/26/19 00:19 Sodium Chloride IV 8 mg/hr DIRECT ROBERT 10 mls/hr Administration 8 MG/HR Metoprolol Tartrate 25 mg 01/25/19 10:00 01/26/19 22:08 Lopressor PO 25 mg BID ROBERT Administration Morphine Sulfate 2 mg 01/22/19 05:32 01/24/19 16:29 Morphine IV 2 mg Q4H PRN Administration Pain, Moderate (4-6) Morphine Sulfate 15 mg 01/25/19 10:00 01/26/19 22:07 Ms Contin Er PO 15 mg Q12HR ROBERT Administration Ondansetron HCl 4 mg 01/25/19 23:49 01/26/19 07:49 Zofran IV 4 mg Q4H PRN Administration Nausea And Vomiting Oxycodone/Acetaminophen 1 tab 01/24/19 18:14 01/25/19 19:57 Percocet 5/325 PO 1 tab BID PRN Administration Pain, Moderate (4-6) Sodium Chloride 10 ml 01/22/19 10:00 01/26/19 22:15 Sodium Chloride Flush Syringe 10 Ml IV 10 ml BID ROBERT Administration Sodium Chloride 10 ml 01/22/19 05:32 01/23/19 03:52 Sodium Chloride Flush Syringe 10 Ml IV 10 ml PRN PRN Administration LINE FLUSH
[2019-01-27] MEDS: PULMICORT IH SCH ×2 (07:56→19:34)
[2019-01-27] MEDS: SODIUM CHLORIDE FLUSH SYRINGE 10 ML IV SCH ×2 (09:19→21:41)
[2019-01-27] MEDS: CORDARONE PO SCH ×2 (09:20→21:40)
[2019-01-27] MEDS: MS CONTIN ER PO SCH ×2 (09:20→21:40)
[2019-01-27] MEDS: LOPRESSOR PO SCH ×2 (09:20→21:40)
--- NOTE | 2019-01-27 11:16 | Progress Note ---
Assessment and Plan Assessment and plan: Coffee-ground emesis. GI consultation. Continue Protonix drip. GI bleed/coffee-ground emesis. Etiology likely secondary to esophageal CA and recent anticoagulation. Continue Protonix twice a day. Consulted vascular surgery for IVC filter placement today. Chest pain, recurrent. ECG on presentation was a ventricular pacemaker rhythm, but on telemetry since hospitalization it appears he has had recurrent, nonsustained monomorphic ventricular tachycardia. NSVT. As above. Continue metoprolol and amiodarone Esophageal CA (dx 09/2018, currently on chemo) last was 2 weeks ago. Oncology following Pulmonary embolism. Anticoagulation held due to GI bleed. Patient with known recent diagnosis of PE ([facility] 2 weeks ago--per pt). CTA completed on this hospitalization, however, reveals pulmonary emboli and the distal basilar branches bilaterally with multifocal bilateral basilar infiltrates versus early lung infarctions. Dilated Nonischemic cardiomyopathy. Patient has an indwelling cardiac defibrillator. Presence of [employer] ([employer])In December 2017, he underwent a cardiac catheterization that revealed no significant coronary artery disease, ejection fraction 15%. History of atrial flutter. He has a history of atrial flutter status post YARELY guided cardioversion 11/2017. COPD, compensated. Bronchodilators/nebulizers Acute hypoxemic respiratory failure. Check ABG. Chest x-ray no infiltrates or effusions. Etiology likely secondary to PE and COPD. Consult pulmonary for further evaluation. GERD. PPI History of Gout (stable) Anemia of chronic disease. Follow up H&H. Transfuse for hemoglobin less than 7. Hematology following Hypokalemia. Replete potassium as needed. DM type2. Accu-Cheks and sliding scale insulin. BR[place]TON on CPAP. Disposition. Cont. [facility] for closer monitoring. The high probability of a clinically significant, sudden or life threatening deterioration of the [respiratory and cardiac] system(s) required my full and direct attention, intervention and personal management. The aggregate critical care time was [31] minutes. This time is in addition to time spent performing reported procedures but includes the following: [x] Data Review and interpretation [x] Patient assessment and monitoring of vital signs [x] Documentation [x] Medication orders and management History Interval history: Patient transferred to [facility] yesterday. No new complaints of chest pain or shortness of breath. Hospitalist Physical - Constitutional Vitals: Temp Pulse Resp BP Pulse Ox 97.9 F 79 18 110/60 93 01/27/19 07:24 01/27/19 11:00 01/27/19 11:00 01/27/19 11:00 01/27/19 11:00 General appearance: Present: no acute distress - EENT Eyes: Present: PERRL, EOM intact ENT: hearing intact, clear oral mucosa, dentition normal - Neck Neck: Present: supple, normal ROM - Respiratory Respiratory effort: normal Respiratory: bilateral: CTA - Cardiovascular Rhythm: regular Heart Sounds: Present: S1 & S2. Absent: gallop, rub - Extremities Extremities: no ischemia, No edema, Full ROM - Abdominal General gastrointestinal: soft, non-tender, non-distended, normal bowel sounds - Integumentary Integumentary: Present: clear, warm, dry - Neurologic Neurologic: CNII-XII intact, moves all extremities Results - Labs CBC & Chem 7: 01/26/19 07:21 01/25/19 04:49 Labs: Laboratory Last Values WBC 9.8 K/mm3 (4.5-11.0) 01/25/19 04:49 RBC 3.26 M/mm3 (3.65-5.03) L 01/25/19 04:49 Hgb 8.8 gm/dl (11.8-15.2) L 01/26/19 07:21 Hct 30.9 % (35.5-45.6) L 01/26/19 07:21 MCV 79 fl (84-94) L 01/25/19 04:49 MCH 25 pg (28-32) L 01/25/19 04:49 MCHC 32 % (32-34) 01/25/19 04:49 RDW 20.9 % (13.2-15.2) H 01/25/19 04:49 Plt Count 234 K/mm3 (140-440) 01/25/19 04:49 Lymph % (Auto) 6.0 % (13.4-35.0) L 01/25/19 04:49 [place] % (Auto) 8.7 % (0.0-7.3) H 01/25/19 04:49 Eos % (Auto) 0.1 % (0.0-4.3) 01/25/19 04:49 Baso % (Auto) 0.3 % (0.0-1.8) 01/25/19 04:49 Lymph # 0.6 K/mm3 (1.2-5.4) L 01/25/19 04:49 [place] # 0.9 K/mm3 (0.0-0.8) H 01/25/19 04:49 Eos # 0.0 K/mm3 (0.0-0.4) 01/25/19 04:49 Baso # 0.0 K/mm3 (0.0-0.1) 01/25/19 04:49 Seg Neutrophils % 84.9 % (40.0-70.0) H 01/25/19 04:49 Seg Neutrophils # 8.3 K/mm3 (1.8-7.7) H 01/25/19 04:49 PT 27.0 Sec. (12.2-14.9) H 01/25/19 23:32 INR 2.31 (0.87-1.13) H 01/25/19 23:32 APTT 31.5 Sec. (24.2-36.6) 01/22/19 02:38 D-Dimer 259.37 ng/mlDDU (0-234) H 01/24/19 18:20 Sodium 136 mmol/L (137-145) L 01/25/19 04:49 Potassium 4.1 mmol/L (3.6-5.0) 01/25/19 04:49 Chloride 93.4 mmol/L (98-107) L 01/25/19 04:49 Carbon Dioxide 26 mmol/L (22-30) 01/25/19 04:49 Anion Gap 21 mmol/L 01/25/19 04:49 BUN 17 mg/dL (9-20) 01/25/19 04:49 Creatinine 1.2 mg/dL (0.8-1.5) 01/25/19 04:49 Estimated GFR > 60 ml/min 01/25/19 04:49 BUN/Creatinine Ratio 14 % 01/25/19 04:49 Glucose 107 mg/dL (75-100) H 01/25/19 04:49 POC Glucose 107 (70-105) H 01/24/19 18:06 Calcium 9.0 mg/dL (8.4-10.2) 01/25/19 04:49 Magnesium 2.10 mg/dL (1.7-2.3) 01/23/19 14:49 Total Bilirubin 1.40 mg/dL (0.1-1.2) H 01/22/19 02:38 AST 13 units/L (5-40) 01/22/19 02:38 ALT 8 units/L (7-56) 01/22/19 02:38 Alkaline Phosphatase 58 units/L (35-129) 01/22/19 02:38 Total Creatine Kinase 13 units/L (55-170) L 01/24/19 18:20 CK-MB (CK-2) < 1.0 ng/mL (0.0-4.0) 01/24/19 18:20 CK-MB (CK-2) Rel Index 7.6 (0-4) H 01/24/19 18:20 Troponin T < 0.010 ng/mL (0.00-0.029) 01/24/19 18:20 NT-Pro-B Natriuret Pep 47698 pg/mL (0-900) H 01/24/19 18:20 Total Protein 6.4 g/dL (6.3-8.2) 01/22/19 02:38 Albumin 2.9 g/dL (3.9-5) L 01/22/19 02:38 Albumin/Globulin Ratio 0.8 % 01/22/19 02:38 Lipase 8 units/L (13-60) L 01/22/19 02:38 Active Medications - Current Medications Current Medications: Generic Name Dose Route Start Last Admin Trade Name Freq PRN Reason Stop Dose Admin Acetaminophen 650 mg 01/22/19 05:32 Tylenol PO Q4H PRN Pain MILD(1-3)/Fever >100.5/KNIGHT Albuterol 5 mg 01/22/19 19:02 01/22/19 21:37 Proventil IH 2.5 mg Q6HRT PRN Administration Shortness Of Breath Amiodarone HCl 200 mg 01/25/19 10:00 01/27/19 09:20 Cordarone PO 200 mg BID ROBERT Administration Arformoterol Tartrate 15 mcg 01/25/19 20:00 01/27/19 07:55 Brovana Nebu IH 15 mcg Q12HRT ROBERT Administration Budesonide 0.5 mg 01/25/19 20:00 01/27/19 07:56 Pulmicort IH 0.5 mg Q12HRT ROBERT Administration Hydromorphone HCl 0.5 mg 01/24/19 19:10 01/26/19 22:15 Dilaudid IV 0.5 mg Q4HR PRN Administration Pain , Severe (7-10) Sodium Chloride 1,000 mls @ 75 mls/hr 01/22/19 06:00 01/25/19 15:14 Nacl 0.9% 1000 Ml IV 75 mls/hr DIRECT ROBERT Administration Metoprolol Tartrate 25 mg 01/25/19 10:00 01/27/19 09:20 Lopressor PO 25 mg BID ROBERT Administration Morphine Sulfate 2 mg 01/22/19 05:32 01/24/19 16:29 Morphine IV 2 mg Q4H PRN Administration Pain, Moderate (4-6) Morphine Sulfate 15 mg 01/25/19 10:00 01/27/19 09:20 Ms Contin Er PO 15 mg Q12HR ROBERT Administration Ondansetron HCl 4 mg 01/25/19 23:49 01/26/19 07:49 Zofran IV 4 mg Q4H PRN Administration Nausea And Vomiting Oxycodone/Acetaminophen 1 tab 01/24/19 18:14 01/25/19 19:57 Percocet 5/325 PO 1 tab BID PRN Administration Pain, Moderate (4-6) Pantoprazole Sodium 40 mg 01/27/19 22:00 Protonix PO BID ROBERT Sodium Chloride 10 ml 01/22/19 10:00 01/27/19 09:19 Sodium Chloride Flush Syringe 10 Ml IV 10 ml BID ROBERT Administration Sodium Chloride 10 ml 01/22/19 05:32 01/23/19 03:52 Sodium Chloride Flush Syringe 10 Ml IV 10 ml PRN PRN Administration LINE FLUSH Nutrition/Malnutrition Assess - Dietary Evaluation Nutrition/Malnutrition Findings: Nutrition Notes Start: 01/23/19 10:41 Freq: Status: Active Protocol: Document 01/23/19 10:41 SA (Rec: 01/23/19 10:58 SA [id number]) Co-Sign 01/23/19 10:41 LP Nutrition Notes Need for Assessment generated from: MST Initial or Follow up Assessment Current Diagnosis COPD,Diabetes,Heart Failure Other Pertinent Diagnosis esophagel cancer on chemotherapy, PE, GERD, Gout, anemia, BRIT[place] on CPAP Current Diet Full liquid diet Labs/Tests Glu: 111 Albumin: 2.9 Pertinent Medications Reviewed Height 6 ft 4 in Weight 110.677 kg [place] Body Weight (kg) 91.81 BMI 29.7 Weight change and time frame 30# weight loss in 30 days Weight Status Overweight Subjective/Other Information Screened for MST score. Patient reports eating 25% of meals when on solid diet but he thinks he will be able to eat more now since diet has switched to full liquid. Pt states he has good appetite but unable to eat due to the pain of his esophagel cancer. Pt experiencing nausea from his meds. Pt reports unintentional weight loss of 30# in 30 days. Percent of energy/protein needs met: 21%/19% Burn Absent Trauma Absent Minimum of two criteria Yes Energy Intake (severe) < or equal to 50% Estimated Energy Requirement > or equal to 5 days Interpretation of Weight Loss (severe) >5% in 1 month #2 Nutrition Diagnosis Malnutrition Etiology severe weight loss and getting less than 50% of estimated energy requirements As Evidenced by Signs and Symptoms 30# weight loss in 30 days and eating less than 25% of meals #1 Nutrition Diagnosis Inadequate oral intake Etiology unable to eat solids due to pain caused by esophagel cancer As Evidenced by Signs and Symptoms eating less than 25% of meals and unintentional weight loss of 30# Is patient on ventilator? No Is Patient Ambulatory and/or Out of Bed No REE-([facility]-confined to bed) 3883.108 Calculation Used for Recommendations [facility] Additional Notes Protein: 1.2-1.5 g/kg (133-165 g/day) Fluid: 1 ml/kcal Nutrition Intervention Change Diet Order: Continue current Add Supplement/Snack (indicate name/kcal Glucerna 2 daily /protein ) Provides kCal: 440 Provides Protein (gm) 20 Goal #1 Meet at least 75% of kcal and pro needs via PO and ONS intakes Anticipated Discharge Needs: Unable to determine at this time Follow-Up By: 01/27/19 Additional Comments F/U: PO and ONS intakes
[2019-01-27] MEDS ORDERED: XYLOCAINE 1%/ EPI 1:100,000 INFILTRATI ONE (12:15)
[2019-01-27] MEDS ORDERED: HEPARIN/NS 5000 UNIT/500ML(CATH LAB) 500 ML IR ONE (12:15)
[2019-01-27] MEDS ORDERED: ANCEF/STERILE WATER 2 GM/20 ML 0 GM/0 ML SYRINGE IV ONE (12:16)
--- NOTE | 2019-01-27 12:19 | Gastroenterology Progress Note ---
Assessment and Plan Hgb stable today so continue BID PPI and Carafate slurry, and monitor Hgb. - Patient Problems (1) Coffee ground emesis Current Visit: No Status: Acute (2) Esophageal cancer Current Visit: No Status: Acute (3) Hx pulmonary embolism Current Visit: No Status: Acute Subjective Date of service: 01/27/19 Principal diagnosis: esophageal ca - PE -a nemia Interval history: patient off floor for IVC filter placement so I could not see today Objective - Constitutional Vitals: Temp Pulse Resp BP Pulse Ox 97.5 F L 76 19 110/60 99 01/27/19 12:00 01/27/19 12:00 01/27/19 12:00 01/27/19 11:30 01/27/19 12:00 - Labs CBC & Chem 7: 01/26/19 07:21 01/25/19 04:49
--- NOTE | 2019-01-27 12:54 | Consultation ---
History of Present Illness - Reason for Consult Consult date: 01/27/19 Esophageal cancer - History of Present Illness 48-year-old male with PMHx of esophageal CA diagnosed in September 2018, terrence jaimes receiving chemotherapy which was started a month ago, last was 2 weeks ago, recurrent PE on Xarelto, CHF, COPD, GERD, gout, anemia, DM type II, BRITTON on CPAP who presents to the ER with complaining of chest pain started last night around 11:00. Patient states that the pain is located in his chest, patient states the pain is worse with deep breath and associated with this breathing. Patient s tates that he was at [facility] 2 weeks ago and was diagnosed with PE, he was already on Xarelto for a prior PE. Patient reports a productive cough with yellowish sputum production which is chronic due to esophageal CA. Patient reports that the chest pain is similar to the chest pain he had with his previous PE. Patient c/o frequent cough, severe chest pain, he denies fever, denies chills, denies headache, denies dizziness, denies nausea, denies vomiting. Patient was evaluated in the ER and admitted for acute pain management. Vascular's consult to due to coffee ground emesis preventing additional anticoagulation. Request for IVC filter due to limited ability to anticoagulate with significant pulmonary embolism thrombus load. Past History Past Medical History: cancer, COPD, diabetes, heart failure, hypertension, hyperlipidemia Past Surgical History: Other (port insertion) Social history: no significant social history Family history: no significant family history Medications and Allergies Allergies Allergy/AdvReac Type Severity Reaction Status Date / Time cephalexin monohydrate AdvReac Shakes Verified 12/23/18 14:22 [From Keflex] lidocaine AdvReac "Skin Verified 12/23/18 14:22 Yellowing" mushrooms Allergy Anaphylaxis Uncoded 12/23/18 14:22 Home Medications Medication Instructions Recorded Confirmed Last Taken Type Magnesium Oxide 400 mg PO DAILY 08/31/16 01/23/19 12/26/18 History Insulin Glargine,Hum.rec.anlog 20 unit SQ HS 09/29/18 01/23/19 12/26/18 History [Lantus] Allopurinol [Zyloprim] 100 mg PO BID tablet 11/20/18 01/23/19 12/26/18 Rx Ferrous Sulfate [Feosol 325 MG tab] 325 mg PO BID tablet 11/20/18 01/23/19 12/26/18 Rx Lisinopril [Zestril TAB] 2.5 mg PO BID tablet 11/20/18 01/23/19 12/26/18 Rx Digoxin [Lanoxin] 0.125 mg PO DAILY 12/10/18 01/23/19 12/26/18 History Gabapentin [Neurontin] 300 mg PO DAILY 12/10/18 01/23/19 12/26/18 History Omeprazole 20 mg PO DAILY 12/10/18 01/23/19 12/26/18 History glipiZIDE [Glipizide] 10 mg PO DAILY 12/10/18 01/23/19 12/26/18 History Aspirin [Aspirin BABY CHEW TAB] 81 mg PO QDAY 12/20/18 01/23/19 12/26/18 History Potassium Chloride [Klor-Con M20] 20 meq PO BID 12/20/18 01/23/19 12/26/18 History Tizanidine HCl [Zanaflex] 4 mg PO BID 12/23/18 01/23/19 12/26/18 History Oxycodone HCl/Acetaminophen 1 each PO Q6HR PRN #20 tablet 12/24/18 01/23/19 12/26/18 Rx [Percocet 7.5/325 mg] Hydromorphone HCl [Dilaudid] 4 mg PO Q12HR PRN #20 tablet 01/06/19 01/23/19 U nknown Rx Rivaroxaban [Xarelto] 20 mg PO QDAY #30 tablet 01/06/19 01/23/19 Unknown Rx Carvedilol [Coreg] 12.5 mg PO BID #60 tablet 01/09/19 01/23/19 Unknown Rx Demadex 100 mg PO QDAY 01/09/19 01/23/19 Unknown History Active Meds: Active Medications Acetaminophen (Tylenol) 650 mg PO Q4H PRN PRN Reason: Pain MILD(1-3)/Fever >100.5/KNIGHT Albuterol (Proventil) 5 mg IH Q6HRT PRN PRN Reason: Shortness Of Breath Last Admin: 01/22/19 21:37 Dose: 2.5 mg Documented by: Amiodarone HCl (Cordarone) 200 mg PO BID [facility] Last Admin: 01/27/19 09:20 Dose: 200 mg Documented by: Arformoterol Tartrate (Brovana Nebu) 15 mcg IH Q12HRT [facility] Last Admin: 01/27/19 07:55 Dose: 15 mcg Documented by: Budesonide (Pulmicort) 0.5 mg IH Q12HRT [facility] Last Admin: 01/27/19 07:56 Dose: 0.5 mg Documented by: Hydromorphone HCl (Dilaudid) 0.5 mg IV Q4HR PRN PRN Reason: Pain , Severe (7-10) Last Admin: 01/26/19 22:15 Dose: 0.5 mg Documented by: Sodium Chloride (Nacl 0.9% 1000 Ml) 1,000 mls @ 75 mls/hr IV DIRECT [facility] Last Admin: 01/25/19 15:14 Dose: 75 mls/hr Documented by: Metoprolol Tartrate (Lopressor) 25 mg PO BID [facility] Last Admin: 01/27/19 09:20 Dose: 25 mg Documented by: Morphine Sulfate (Morphine) 2 mg IV Q4H PRN PRN Reason: Pain, Moderate (4-6) Last Admin: 01/24/19 16:29 Dose: 2 mg Documented by: Morphine Sulfate (Ms Contin Er) 15 mg PO Q12HR [facility] Last Admin: 01/27/19 09:20 Dose: 15 mg Documented by: Ondansetron HCl (Zofran) 4 mg IV Q4H PRN PRN Reason: Nausea And Vomiting Last Admin: 01/26/19 07:49 Dose: 4 mg Documented by: Oxycodone/Acetaminophen (Percocet 5/325) 1 tab PO BID PRN PRN Reason: Pain, Moderate (4-6) Last Admin: 01/25/19 19:57 Dose: 1 tab Documented by: Pantoprazole Sodium (Protonix) 40 mg PO BID [facility] Sodium Chloride (Sodium Chloride Flush Syringe 10 Ml) 10 ml IV BID [facility] Last Admin: 01/27/19 09:19 Dose: 10 ml Documented by: Sodium Chloride (Sodium Chloride Flush Syringe 10 Ml) 10 ml IV PRN PRN PRN Reason: LINE FLUSH Last Admin: 01/23/19 03:52 Dose: 10 ml Documented by: Review of Systems All systems: negative (see HPI) Exam - Constitutional Vitals: Temp Pulse Resp BP Pulse Ox 97.5 F L 82 18 111/68 98 01/27/19 12:00 01/27/19 12:23 01/27/19 12:23 01/27/19 12:23 01/27/19 12:23 General appearance: Present: no acute distress - EENT Eyes: Present: EOM intact ENT: hearing intact - Respiratory Respiratory effort: normal - Abdominal General gastrointestinal: Present: soft, other (multiple tattoos) - Psychiatric Psychiatric: appropriate mood/affect, cooperative Results - Labs CBC & Chem 7: 01/26/19 07:21 01/25/19 04:49 - Imaging and Cardiology CT scan - chest: report reviewed, image reviewed Assessment and Plan 48-year-old male with esophageal cancer status post pulmonary embolism currently on anticoagulation with coffee-ground emesis preventing anticoagulation. IVC filter is definitely reasonable in this situation. Plan for IVC filter today. Although patient has failed full dose anticoagulation, consider lower dose Eliquis 2.5 mg PO BID or alternative lower dose anticoagulation to attempt to prevent additional thrombus formation. This is important because patient is likely hypercoagulable from underlying malignancy and also has active thromboembolic disease which would benefit from some form of anticoagulation, even if it is limited.
[2019-01-27] MEDS ORDERED: NACL 0.9% 250ML 250 ML ONE (13:18)
[2019-01-27] MEDS ORDERED: SUBLIMAZE ONE (13:20)
[2019-01-27] MEDS ORDERED: VERSED ONE (13:20)
[2019-01-27] MEDS ORDERED: BENADRYL ONE (13:21)
[2019-01-27] MEDS: DILAUDID ONE ×2 (13:31→13:55)
[2019-01-27] MEDS ORDERED: LEVAQUIN 500MG/100ML 500 MG/100 ML BAG IV ONE (13:52)
--- NOTE | 2019-01-27 14:11 | Operative Report ---
Operative Report Operative Report: EXAM: 1. Ultrasound guided access of the right common femoral vein 2. IVC filter placement and inferior venacava venography DATE: 01/27/19 INDICATION: Coffee-ground emesis with esophageal cancer and pulmonary embolism with limited ability to anticoagulate MEDICATIONS: Continuous cardiopulmonary monitoring was performed during this procedure. Please review the nursing record for a list of all medications. DEVICES: Retrievable Bard Juli IVC filter. BLIND INSTALLER: CHARLIE SMITH MD CONTRAST: 40 mLs of nonionic contrast PROCEDURE: The risks, benefits, and alternatives were discussed; written informed consent was obtained. The patient was transported to the angiography suite in stable condition. The patient was transported on the table and the right common femoral vein was assessed with ultrasound and was patent. The patient was prepped and draped in a sterile fashion. The right common femoral vein was accessed with an 21-gauge needle under direct ultrasound guidance. 0.018 inch wire was advanced through the needle and the needle was exchanged for a transitional dilation. Inner dilator and wire was removed. 0.035 inch wire was passed into the inferior vena cava. Benadryl was used instead of lidocaine due to allergy for anesthesia. The transitional dilator was exchanged for a 5 Filipino sheath and a 5 Filipino pigtail catheter was advanced over the wire and passed into the inferior vena cava. The table was locked. Digital subtraction venography was performed. The pigtail was removed over a 0.035 inch wire and the sheath was removed over the wire. The IVC filter sheath and introducer were advanced over the wire under direct fluoroscopic guidance. The wire and introducer were removed. The IVC filter deployment system was advanced through the sheath and properly positioned under fluoroscopic guidance. The IVC filter was deployed under direct fluoroscopic guidance. Venography was performed through the sheath to confirm position. The deployment system, and sheath were removed. Pressure was held until hemostasis was achieved. The patient was transferred from the angiography suite in stable condition. FINDINGS: 1. Under direct ultrasound guidance, the right common femoral vein was accessed with a 21-gauge needle. The vein was patent. 2. Digital subtraction venography of the inferior vena cava demonstrates no evidence of inferior vena cava thrombus. The inferior vena cava is normal in size. Renal vein inflow is visualized. The inferior vena cava is adequate to accommodate an IVC filter. 3. Bard Juli IVC filter is properly positioned, below the renal veins and above the iliocaval confluence. IMPRESSION: Successful placement of a retrievable Bard Juli IVC filter. No evidence of caval thrombus.
--- NOTE | 2019-01-27 18:57 | Progress Note ---
Assessment and Plan - Patient Problems (1) Dilated cardiomyopathy Current Visit: Yes Status: Acute Plan to address problem: Dilated cardiomyopathy with ventricular defibrillator in situ, continue guideline-directed medical therapy. We will empirically treat ventricular tachyarrhythmias with amiodarone and beta blockers in addition to optimal maintenance of electrolyte and fluid balance. Subjective Date of service: 01/27/19 Principal diagnosis: esophageal ca - PE -a nemia Interval history: Patient is comfortable, no cardiac complaints, asymptomatic. Objective Vital Signs Temp Pulse Pulse Pulse Resp Resp BP 01/27/19 18:00 85 16 105/71 01/27/19 17:00 87 15 100/68 01/27/19 16:15 86 17 92/58 01/27/19 16:00 97.8 F 83 84 13 100/69 01/27/19 15:45 84 12 110/76 01/27/19 15:30 83 12 103/68 01/27/19 15:15 82 14 99/63 01/27/19 15:00 83 14 99/59 01/27/19 14:45 84 14 99/61 01/27/19 14:40 84 13 102/68 01/27/19 12:23 82 18 01/27/19 12:00 97.5 F L 76 19 01/27/19 11:30 80 17 110/60 01/27/19 11:00 79 18 110/60 01/27/19 10:46 78 15 129/75 01/27/19 10:30 76 16 129/75 01/27/19 10:16 78 15 129/75 01/27/19 10:00 82 17 129/75 01/27/19 09:46 82 16 138/82 01/27/19 09:30 88 22 138/82 01/27/19 09:20 90 01/27/19 09:00 84 15 138/82 01/27/19 08:30 82 16 135/79 01/27/19 08:00 85 83 15 135/79 01/27/19 07:52 88 18 01/27/19 07:45 86 20 01/27/19 07:30 83 15 122/72 01/27/19 07:24 97.9 F 01/27/19 07:00 82 13 125/72 01/27/19 06:30 87 15 137/122 01/27/19 06:00 86 16 126/70 01/27/19 05:30 86 16 126/70 01/27/19 05:00 86 17 126/64 01/27/19 04:30 84 15 112/55 01/27/19 04:21 18 01/27/19 04:00 97.5 F L 82 17 110/56 01/27/19 03:30 81 22 112/50 01/27/19 03:00 81 17 109/51 01/27/19 02:30 84 23 114/59 01/27/19 02:00 93 H 22 117/71 01/27/19 01:30 91 H 24 118/69 01/27/19 01:00 89 10 L 105/58 01/27/19 00:30 94 H 10 L 115/68 01/27/19 00:25 20 01/27/19 00:00 97.6 F 94 H 16 111/60 01/26/19 23:30 88 17 111/60 01/26/19 23:21 106 H 16 116/59 01/26/19 23:00 93 H 24 116/59 01/26/19 22:30 92 H 19 112/62 01/26/19 22:08 93 H 116/65 01/26/19 22:00 93 H 20 116/65 01/26/19 21:30 94 H 28 H 111/79 01/26/19 21:00 94 H 22 120/68 01/26/19 20:44 98 H 22 01/26/19 20:33 01/26/19 20:32 92 H 20 01/26/19 20:30 92 H 21 111/59 01/26/19 20:00 97.5 F L 92 H 18 126/66 01/26/19 19:30 92 H 19 111/58 01/26/19 19:00 91 H 21 116/49 BP Pulse Ox 01/27/19 18:00 97 01/27/19 17:00 97 01/27/19 16:15 99 01/27/19 16:00 100 01/27/19 15:45 99 01/27/19 15:30 98 01/27/19 15:15 01/27/19 15:00 100 01/27/19 14:45 100 01/27/19 14:40 01/27/19 12:23 111/68 98 01/27/19 12:00 99 01/27/19 11:30 99 01/27/19 11:00 93 01/27/19 10:46 98 01/27/19 10:30 98 01/27/19 10:16 98 01/27/19 10:00 98 01/27/19 09:46 99 01/27/19 09:30 100 01/27/19 09:20 01/27/19 09:00 100 01/27/19 08:30 99 01/27/19 08:00 99 01/27/19 07:52 01/27/19 07:45 01/27/19 07:30 01/27/19 07:24 01/27/19 07:00 98 01/27/19 06:30 94 01/27/19 06:00 100 01/27/19 05:30 100 01/27/19 05:00 100 01/27/19 04:30 92 01/27/19 04:21 96 01/27/19 04:00 90 01/27/19 03:30 98 01/27/19 03:00 98 01/27/19 02:30 96 01/27/19 02:00 88 01/27/19 01:30 99 01/27/19 01:00 97 01/27/19 00:30 01/27/19 00:25 96 01/27/19 00:00 96 01/26/19 23:30 97 01/26/19 23:21 97 01/26/19 23:00 90 01/26/19 22:30 99 01/26/19 22:08 01/26/19 22:00 100 01/26/19 21:30 91 01/26/19 21:00 86 01/26/19 20:44 01/26/19 20:33 100 01/26/19 20:32 01/26/19 20:30 100 01/26/19 20:00 96 01/26/19 19:30 100 01/26/19 19:00 100 - Physical Examination General: No Apparent Distress, Other (severely obese) HEENT: Positive: PERRL Neck: Positive: neck supple Cardiac: Positive: Reg Rate and Rhythm Lungs: Positive: Decreased Breath Sounds Neuro: Positive: Grossly Intact Abdomen: Positive: Unremarkable, Soft Skin: Positive: Clear Extremities: Absent: edema Pacemaker: ventricular pacing w/capt
[2019-01-27] MEDS: PROTONIX PO SCH (21:40)
[2019-01-28] MEDS: MORPHINE IV PRN ×2 (04:07→22:16)
[2019-01-28] MEDS: ZOFRAN IV PRN ×2 (04:09→10:27)
[2019-01-28 04:59] LABS: Hematocrit 30.1 % (35.5-45.6); Hemoglobin 9.3 gm/dl (11.8-15.2); Mean Corpuscular HGB Conc 31 % (32-34); Mean Corpuscular Volume 80 fl (84-94); Platelet Count 226 K/mm3 (140-440); Red Blood Count 3.75 M/mm3 (3.65-5.03); Red Cell Distribution Width 21.6 % (13.2-15.2)
[2019-01-28 05:12] LABS: BUN/Creatinine Ratio 35; Blood Urea Nitrogen 42 mg/dL (9-20); Calcium 8.3 mg/dL (8.4-10.2); Hemolysis Index 4
[2019-01-28 05:52] LABS: Band Neutrophils # (Manual) 0.1 K/mm3; Basophils % (Manual) 0 % (0.0-1.8); Eosinophils % (Manual) 0 % (0.0-4.3); Total Cells Counted 100
[2019-01-28 05:53] LABS: Anisocytosis 1+; Hypochromasia 1+; Poikilocytosis 1+
[2019-01-28 05:54] LABS: Ovalocytes 1+
[2019-01-28 05:55] LABS: Large Platelets Few; Platelet Estimate Consistent w Auto
[2019-01-28] MEDS: BROVANA NEBU IH SCH ×2 (08:36→20:04)
[2019-01-28] MEDS: PULMICORT IH SCH ×2 (08:36→20:04)
[2019-01-28] MEDS: CORDARONE PO SCH ×2 (10:27→22:16)
[2019-01-28] MEDS: PROTONIX PO SCH ×2 (10:27→22:16)
[2019-01-28] MEDS: LOPRESSOR PO SCH ×2 (10:27→22:17)
[2019-01-28] MEDS: MS CONTIN ER PO SCH (10:28)
[2019-01-28] MEDS: SODIUM CHLORIDE FLUSH SYRINGE 10 ML IV SCH ×2 (10:29→22:17)
--- NOTE | 2019-01-28 11:10 | Hem/Onc Progress Note ---
Assessment and Plan 1. Esophageal cancer, locally advanced, not a surgical candidate because of low ejection fraction. The patient on radiation therapy and 5-FU continuous infusion to augment the radiation; however, he has not been able to get chemotherapy. He received only 48 hours of 5-FU on 01/08/2019. After that, he was admitted to [facility] and now this. 2. History of pulmonary embolism, was on Xarelto, on Lovenox. 3. Pain issues, on pain medications. 4. History of diabetes. 5. History of weight loss. 6. History of hypertension. 7. History of hyperlipidemia. 8. Esophageal cancer. 9. 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 10. Low ejection fraction. 11. HER-2 negative in the tumor. 12. PEG tube was placed, now removed. The patient needs pain medication support. I will follow the patient during inpatient stay. long acting pain meds trial 01/26 pt off lovenox - not clear why - will talk to hosptialist [place] [facility] [place]sp [place] iron PE esophageal ca - last chemo 12/21 0 - he was supposed to get IV small dose of 5 FU every other day - but he has been at [facility] 01/27 off lovenox due to gi bleed CTA shows increse in PE - comapred to past from [facility] anemia - s/p iv iron esopahgeal ca pt got one 5 fu low dose on 01/[address] del castillo 01/28 c/o pain - increase pain meds pt says ms bell not working ivc filter eliquis 2.5 q 12 an option for now d/w RN reg pain meds - Patient Problems (1) Esophageal cancer Current Visit: No Status: Acute Subjective Date of service: 01/28/19 Principal diagnosis: esophageal ca - PE - anemia Interval history: c/o pain Objective - Constitutional Vitals: Last Vital Signs Temp 98.1 F 01/28/19 08:00 Pulse 122 H 01/28/19 10:27 Resp 16 01/28/19 08:38 BP 101/73 01/28/19 10:27 Pulse Ox 97 01/28/19 06:00 Pain Intensity (0-10): 2/10 General appearance: mild distress Performance status: 3-limited selfcare - EENT Eyes: EOM intact ENT: clear oral mucosa Lymph node exam: negative cervical - Neck Neck: normal ROM - Respiratory Respiratory effort: Positive: normal Respiratory: bilateral: CTA - Cardiovascular Heart Sounds: Present: S1 & S2 Extremities: No edema, normal temperature - Gastrointestinal General gastrointestinal: Present: soft Rectal Exam: deferred - Genitourinary Male genitourinary: Present: deferred - Integumentary Integumentary: warm - Musculoskeletal Musculoskeletal: strength equal bilaterally - Neurologic Neurologic: moves all extremities - Labs Lab Results: Laboratory Results - last 24 hr 01/28/19 01/28/19 04:31 04:31 WBC 11.2 H RBC 3.75 Hgb 9.3 L Hct 30.1 L MCV 80 L MCH 25 L MCHC 31 L RDW 21.6 H Plt Count 226 Add Manual Diff Complete Total Counted 100 Seg Neuts % (Manual) 94.0 H Band Neutrophils % 1.0 Lymphocytes % (Manual) 3.0 L Reactive Lymphs % (Man) 0 Monocytes % (Manual) 2.0 Eosinophils % (Manual) 0 Basophils % (Manual) 0 Metamyelocytes % 0 Myelocytes % 0 Promyelocytes % 0 Blast Cells % 0 Nucleated RBC % Not Reportable Seg Neutrophils # Man 10.5 H Band Neutrophils # 0.1 Lymphocytes # (Manual) 0.3 L Abs React Lymphs (Man) 0.0 Monocytes # (Manual) 0.2 Eosinophils # (Manual) 0.0 Basophils # (Manual) 0.0 Metamyelocytes # 0.0 Myelocytes # 0.0 Promyelocytes # 0.0 Blast Cells # 0.0 WBC Morphology Not Reportable Hypersegmented Neuts Not Reportable Hyposegmented Neuts Not Reportable Hypogranular Neuts Not Reportable Smudge Cells Not Reportable Toxic Granulation Not Reportable Toxic Vacuolation Not Reportable Dohle Bodies Not Reportable Pelger-Huet Anomaly Not Reportable Kanika Rods Not Reportable Platelet Estimate Consistent w auto Clumped Platelets Not Reportable Plt Clumps, EDTA Not Reportable Large Platelets Few Giant Platelets Not Reportable Platelet Satelliting Not Reportable Plt Morphology Comment Not Reportable RBC Morphology Not Reportable Dimorphic RBCs Not Reportable Polychromasia Not Reportable Hypochromasia 1+ Poikilocytosis 1+ Anisocytosis 1+ Microcytosis Not Reportable Macrocytosis Not Reportable Spherocytes Not Reportable Pappenheimer Bodies Not Reportable Sickle Cells Not Reportable Target Cells Not Reportable Tear Drop Cells Not Reportable Ovalocytes 1+ Helmet Cells Not Reportable [place] Bodies Not Reportable Trezevant Rings Not Reportable Patricia Cells Not Reportable Bite Cells Not Reportable Crenated Cell Not Reportable Elliptocytes Few Acanthocytes (Spur) Not Reportable Rouleaux Not Reportable Hemoglobin C Crystals Not Reportable Schistocytes Not Reportable Malaria parasites Not Reportable Kenroy Bodies Not Reportable Hem Pathologist Commnt No Sodium 139 Potassium 4.4 Chloride 97.3 L Carbon Dioxide 25 Anion Gap 21 BUN 42 H Creatinine 1.2 Estimated GFR > 60 BUN/Creatinine Ratio 35 Glucose 160 H Calcium 8.3 L Medications & Allergies - Medications Allergies/Adverse Reactions: Allergies cephalexin monohydrate [From Keflex] Adverse Reaction (Verified 12/23/18 14:22) Shakes lidocaine Adverse Reaction (Verified 12/23/18 14:22) "Skin Yellowing" mushrooms Allergy (Uncoded 12/23/18 14:22) Anaphylaxis Home Medications: Home Medications Medication Instructions Recorded Confirmed Last Taken Type Magnesium Oxide 400 mg PO DAILY 08/31/16 01/23/19 12/26/18 History Insulin Glargine,Hum.rec.anlog 20 unit SQ HS 09/29/18 01/23/19 12/26/18 History [Lantus] Allopurinol [Zyloprim] 100 mg PO BID tablet 11/20/18 01/23/19 12/26/18 Rx Ferrous Sulfate [Feosol 325 MG tab] 325 mg PO BID tablet 11/20/18 01/23/19 0 12/26/18 Rx Lisinopril [Zestril TAB] 2.5 mg PO BID tablet 11/20/18 01/23/19 12/26/18 Rx Digoxin [Lanoxin] 0.125 mg PO DAILY 12/10/18 01/23/19 12/26/18 History Gabapentin [Neurontin] 300 mg PO DAILY 12/10/18 01/23/19 12/26/18 History Omeprazole 20 mg PO DAILY 12/10/18 01/23/19 12/26/18 History glipiZIDE [Glipizide] 10 mg PO DAILY 12/10/18 01/23/19 12/26/18 History Aspirin [Aspirin BABY CHEW TAB] 81 mg PO QDAY 0301/23/19 12/26/18 History Potassium Chloride [Klor-Con M20] 20 meq PO BID 12/20/18 01/23/19 12/26/18 History Tizanidine HCl [Zanaflex] 4 mg PO BID 12/23/18 01/23/19 12/26/18 History Oxycodone HCl/Acetaminophen 1 each PO Q6HR PRN #20 tablet 12/24/18 01/23/19 12/26/18 Rx [Percocet 7.5/325 mg] Hydromorphone HCl [Dilaudid] 4 mg PO Q12HR PRN #20 tablet 01/06/19 01/23/19 Unknown Rx Rivaroxaban [Xarelto] 20 mg PO QDAY #30 tablet 01/06/19 01/23/19 Unknown Rx Carvedilol [Coreg] 12.5 mg PO BID #60 tablet 01/09/19 01/23/19 Unknown Rx Demadex 100 mg PO QDAY 01/09/19 01/23/19 Unknown History Active Medications: Generic Name Dose Route Start Last Admin Trade Name Freq PRN Reason Stop Dose Admin Acetaminophen 650 mg 01/22/19 05:32 Tylenol PO Q4H PRN Pain MILD(1-3)/Fever >100.5/KNIGHT Albuterol 5 mg 01/22/19 19:02 01/22/19 21:37 Proventil IH 2.5 mg Q6HRT PRN Administration Shortness Of Breath Amiodarone HCl 200 mg 01/25/19 10:00 01/28/19 10:27 Cordarone PO 200 mg BID ROBERT Administration Arformoterol Tartrate 15 mcg 01/25/19 20:00 01/28/19 08:36 Brovana Nebu IH 15 mcg Q12HRT ROBERT Administration Budesonide 0.5 mg 01/25/19 20:00 01/28/19 08:36 Pulmicort IH 0.5 mg Q12HRT ROBERT Administration Hydromorphone HCl 0.5 mg 01/24/19 19:10 01/26/19 22:15 Dilaudid IV 0.5 mg Q4HR PRN Administration Pain , Severe (7-10) Sodium Chloride 1,000 mls @ 75 mls/hr 01/22/19 06:00 01/25/19 15:14 Nacl 0.9% 1000 Ml IV 75 mls/hr DIRECT ROBERT Administration Metoprolol Tartrate 25 mg 01/25/19 10:00 01/28/19 10:27 Lopressor PO 25 mg BID ROBERT Administration Morphine Sulfate 2 mg 01/22/19 05:32 01/28/19 04:07 Morphine IV 2 mg Q4H PRN Administration Pain, Moderate (4-6) Morphine Sulfate 15 mg 01/25/19 10:00 01/28/19 10:28 Ms Contin Er PO 15 mg Q12HR ROBERT Administration Ondansetron HCl 4 mg 01/25/19 23:49 01/28/19 10:27 Zofran IV 4 mg Q4H PRN Administration Nausea And Vomiting Oxycodone/Acetaminophen 1 tab 01/24/19 18:14 01/25/19 19:57 Percocet 5/325 PO 1 tab BID PRN Administration Pain, Moderate (4-6) Pantoprazole Sodium 40 mg 01/27/19 22:00 01/28/19 10:27 Protonix PO 40 mg BID ROBERT Administration Sodium Chloride 10 ml 01/22/19 10:00 01/28/19 10:29 Sodium Chloride Flush Syringe 10 Ml IV 10 ml BID ROBERT Administration Sodium Chloride 10 ml 01/22/19 05:32 01/23/19 03:52 Sodium Chloride Flush Syringe 10 Ml IV 10 ml PRN PRN Administration LINE FLUSH
[2019-01-28] MEDS: DILAUDID IV PRN (11:40)
--- NOTE | 2019-01-28 11:49 | Progress Note ---
Assessment and Plan Epigastric pain with N/V Esophageal carcinoma Recent diagnosis of PE at [facility] on Xarelto held s/p IVC filter placed 01/27/19 Paroxysmal Afib s/p cardioversion 11/2017 Dilated nonischemic cardiomyopathy, EF 10-15% Cath 12/2017 - mild non-obstructive coronary artery disease Chronic obstructive pulmonary disease Severe Pulmonary Hypertension Essential hypertension Type 2 diabetes mellitus Obstructive sleep apnea Presence of SPA MANAGER-ICD (Medtronic) normal functioning device on recent interrogation. Hx of VT/VF in the setting of hypokalemia Conservative cardiac management. Subjective Date of service: 01/28/19 Principal diagnosis: esophageal ca - PE -a nemia Interval history: Patient is resting comfortably. Objective Vital Signs Temp Pulse Pulse Pulse Pulse Resp Resp 01/28/19 10:27 122 H 01/28/19 08:38 86 88 16 01/28/19 08:00 98.1 F 01/28/19 06:00 92 H 23 01/28/19 05:00 85 16 01/28/19 04:00 97.5 F L 125 H 113 H 20 01/28/19 03:00 96 H 19 01/28/19 02:00 85 15 01/28/19 01:00 86 18 01/28/19 00:00 97.7 F 90 89 12 01/27/19 23:00 90 15 01/27/19 22:00 98 H 12 01/27/19 21:00 01/27/19 20:48 01/27/19 20:07 97.8 F 01/27/19 20:00 78 15 01/27/19 19:47 88 01/27/19 19:34 91 H 01/27/19 19:00 89 18 01/27/19 18:00 85 16 01/27/19 17:00 87 15 01/27/19 16:15 86 17 01/27/19 16:00 97.8 F 83 84 13 01/27/19 15:45 84 12 01/27/19 15:30 83 12 01/27/19 15:15 82 14 01/27/19 15:00 83 14 01/27/19 14:45 84 14 01/27/19 14:40 84 13 01/27/19 12:23 82 18 01/27/19 12:00 97.5 F L 76 19 Resp BP BP Pulse Ox 01/28/19 10:27 101/73 01/28/19 08:38 16 01/28/19 08:00 01/28/19 06:00 93/57 97 01/28/19 05:00 96/61 97 01/28/19 04:00 86/59 97 01/28/19 03:00 111/71 94 01/28/19 02:00 113/77 01/28/19 01:00 108/69 97 01/28/19 00:00 113/77 98 01/27/19 23:00 109/75 01/27/19 22:00 112/77 100 01/27/19 21:00 105/70 01/27/19 20:48 105/68 97 01/27/19 20:07 01/27/19 20:00 105/68 96 01/27/19 19:47 19 01/27/19 19:34 20 01/27/19 19:00 102/73 99 01/27/19 18:00 105/71 97 01/27/19 17:00 100/68 97 01/27/19 16:15 92/58 99 01/27/19 16:00 100/69 100 01/27/19 15:45 110/76 99 01/27/19 15:30 103/68 98 01/27/19 15:15 99/63 01/27/19 15:00 99/59 100 01/27/19 14:45 99/61 100 01/27/19 14:40 102/68 01/27/19 12:23 111/68 98 01/27/19 12:00 99 - Physical Examination General: No Apparent Distress HEENT: Positive: PERRL Cardiac: Positive: Other (paced) Neuro: Positive: Grossly Intact Extremities: Absent: edema - Labs and Meds CBC 01/28/19 Range/Units 04:31 WBC 11.2 H (4.5-11.0) K/mm3 RBC 3.75 (3.65-5.03) M/mm3 Hgb 9.3 L (11.8-15.2) gm/dl Hct 30.1 L (35.5-45.6) % Plt Count 226 (140-440) K/mm3 Comprehensive Metabolic Panel 01/28/19 Range/Units 04:31 Sodium 139 (137-145) mmol/L Potassium 4.4 (3.6-5.0) mmol/L Chloride 97.3 L (98-107) mmol/L Carbon Dioxide 25 (22-30) mmol/L BUN 42 H (9-20) mg/dL Creatinine 1.2 (0.8-1.5) mg/dL Glucose 160 H (75-100) mg/dL Calcium 8.3 L (8.4-10.2) mg/dL Pacemaker: ventricular pacing w/capt
--- NOTE | 2019-01-28 12:21 | Event Note ---
Date: 01/28/19 Patient status post IVC filter placement from a right common femoral vein approach. No complaints.
--- NOTE | 2019-01-28 14:33 | Gastroenterology Progress Note ---
<CLAIRE RODRIGUES - Last Filed: 01/28/19 14:40> Assessment and Plan 1.coffee ground emesis 2.anemia 3.esophageal cancer (s/p PEG with removal) 4.hx of PE (s/p IVC filter yesterday with anticoagulants d/c) -H/H 9.3/30.1-trending up -continue to monitor H/H and transfuse as needed -no active signs of bleeding overnight or this am -etiology-likely 2/2 known esophageal cancer -no plan for repeat scope at this time -continue PPI BID and carafate -tolerating diet (full liquids) -continue supportive care -patient okay to be d/c per GI standpoint with f/u at Midnight -will sign off, please call if needed Subjective Date of service: 01/28/19 Principal diagnosis: esophageal ca - PE -a nemia Interval history: No active signs of bleeding overnight or this am. Objective - Constitutional Vitals: Temp Pulse Resp BP Pulse Ox 98.1 F 122 H 16 101/73 97 01/28/19 08:00 01/28/19 10:27 01/28/19 08:38 01/28/19 10:27 01/28/19 06:00 General appearance: no acute distress - Respiratory Respiratory: bilateral: diminished - Cardiovascular Rhythm: regular - Gastrointestinal General gastrointestinal: Present: soft, non-distended, normal bowel sounds - Labs CBC & Chem 7: 01/28/19 04:31 01/28/19 04:31 Labs: Laboratory Results - last 24 hr 01/28/19 01/28/19 04:31 04:31 WBC 11.2 H RBC 3.75 Hgb 9.3 L Hct 30.1 L MCV 80 L MCH 25 L MCHC 31 L RDW 21.6 H Plt Count 226 Add Manual Diff Complete Total Counted 100 Seg Neuts % (Manual) 94.0 H Band Neutrophils % 1.0 Lymphocytes % (Manual) 3.0 L Reactive Lymphs % (Man) 0 Monocytes % (Manual) 2.0 Eosinophils % (Manual) 0 Basophils % (Manual) 0 Metamyelocytes % 0 Myelocytes % 0 Promyelocytes % 0 Blast Cells % 0 Nucleated RBC % Not Reportable Seg Neutrophils # Man 10.5 H Band Neutrophils # 0.1 Lymphocytes # (Manual) 0.3 L Abs React Lymphs (Man) 0.0 Monocytes # (Manual) 0.2 Eosinophils # (Manual) 0.0 Basophils # (Manual) 0.0 Metamyelocytes # 0.0 Myelocytes # 0.0 Promyelocytes # 0.0 Blast Cells # 0.0 WBC Morphology Not Reportable Hypersegmented Neuts Not Reportable Hyposegmented Neuts Not Reportable Hypogranular Neuts Not Reportable Smudge Cells Not Reportable Toxic Granulation Not Reportable Toxic Vacuolation Not Reportable Dohle Bodies Not Reportable Pelger-Huet Anomaly Not Reportable Kanika Rods Not Reportable Platelet Estimate Consistent w auto Clumped Platelets Not Reportable Plt Clumps, EDTA Not Reportable Large Platelets Few Giant Platelets Not Reportable Platelet Satelliting Not Reportable Plt Morphology Comment Not Reportable RBC Morphology Not Reportable Dimorphic RBCs Not Reportable Polychromasia Not Reportable Hypochromasia 1+ Poikilocytosis 1+ Anisocytosis 1+ Microcytosis Not Reportable Macrocytosis Not Reportable Spherocytes Not Reportable Pappenheimer Bodies Not Reportable Sickle Cells Not Reportable Target Cells Not Reportable Tear Drop Cells Not Reportable Ovalocytes 1+ Helmet Cells Not Reportable [place] Bodies Not Reportable [place] Rings Not Reportable Patricia Cells Not Reportable Bite Cells Not Reportable Crenated Cell Not Reportable Elliptocytes Few Acanthocytes (Spur) Not Reportable Rouleaux Not Reportable Hemoglobin C Crystals Not Reportable Schistocytes Not Reportable Malaria parasites Not Reportable [place] Bodies Not Reportable Hem Pathologist Commnt No Sodium 139 Potassium 4.4 Chloride 97.3 L Carbon Dioxide 25 Anion Gap 21 BUN 42 H Creatinine 1.2 Estimated GFR > 60 BUN/Creatinine Ratio 35 Glucose 160 H Calcium 8.3 L <CHARLIE MCCORMACK - Last Filed: 01/28/19 20:47> Assessment and Plan Patient seen and examined. I have reviewed the advanced practitioner's evaluation, assessment, and plan, and agree with them. I note the following additions: PAtient is lethargic when I spoke with him but denies any overt bleeding and th ere has been no more documented bleeding, Hgb stable/improving. Therefore will sign off, patient should continue to follow at Midnight for care of his esophageal CA - Patient Problems (1) Coffee ground emesis Current Visit: No Status: Acute (2) Esophageal cancer Current Visit: No Status: Acute (3) Hx pulmonary embolism Current Visit: No Status: Acute Objective - Constitutional Vitals: Temp Pulse Resp BP Pulse Ox 98.2 F 87 18 96/60 99 01/28/19 16:00 01/28/19 20:04 01/28/19 20:04 01/28/19 16:00 01/28/19 16:00 - Labs CBC & Chem 7: 01/28/19 04:31 01/28/19 04:31 Labs: Laboratory Results - last 24 hr 01/28/19 01/28/19 04:31 04:31 WBC 11.2 H RBC 3.75 Hgb 9.3 L Hct 30.1 L MCV 80 L MCH 25 L MCHC 31 L RDW 21.6 H Plt Count 226 Add Manual Diff Complete Total Counted 100 Seg Neuts % (Manual) 94.0 H Band Neutrophils % 1.0 Lymphocytes % (Manual) 3.0 L Reactive Lymphs % (Man) 0 Monocytes % (Manual) 2.0 Eosinophils % (Manual) 0 Basophils % (Manual) 0 Metamyelocytes % 0 Myelocytes % 0 Promyelocytes % 0 Blast Cells % 0 Nucleated RBC % Not Reportable Seg Neutrophils # Man 10.5 H Band Neutrophils # 0.1 Lymphocytes # (Manual) 0.3 L Abs React Lymphs (Man) 0.0 Monocytes # (Manual) 0.2 Eosinophils # (Manual) 0.0 Basophils # (Manual) 0.0 Metamyelocytes # 0.0 Myelocytes # 0.0 Promyelocytes # 0.0 Blast Cells # 0.0 WBC Morphology Not Reportable Hypersegmented Neuts Not Reportable Hyposegmented Neuts Not Reportable Hypogranular Neuts Not Reportable Smudge Cells Not Reportable Toxic Granulation Not Reportable Toxic Vacuolation Not Reportable Dohle Bodies Not Reportable Pelger-Huet Anomaly Not Reportable Kanika Rods Not Reportable Platelet Estimate Consistent w auto Clumped Platelets Not Reportable Plt Clumps, EDTA Not Reportable Large Platelets Few Giant Platelets Not Reportable Platelet Satelliting Not Reportable Plt Morphology Comment Not Reportable RBC Morphology Not Reportable Dimorphic RBCs Not Reportable Polychromasia Not Reportable Hypochromasia 1+ Poikilocytosis 1+ Anisocytosis 1+ Microcytosis Not Reportable Macrocytosis Not Reportable Spherocytes Not Reportable Pappenheimer Bodies Not Reportable Sickle Cells Not Reportable Target Cells Not Reportable Tear Drop Cells Not Reportable Ovalocytes 1+ Helmet Cells Not Reportable [place] Bodies Not Reportable [place] Rings Not Reportable Patricia Cells Not Reportable Bite Cells Not Reportable Crenated Cell Not Reportable Elliptocytes Few Acanthocytes (Spur) Not Reportable Rouleaux Not Reportable Hemoglobin C Crystals Not Reportable Schistocytes Not Reportable Malaria parasites Not Reportable [place] Bodies Not Reportable Hem Pathologist Commnt No Sodium 139 Potassium 4.4 Chloride 97.3 L Carbon Dioxide 25 Anion Gap 21 BUN 42 H Creatinine 1.2 Estimated GFR > 60 BUN/Creatinine Ratio 35 Glucose 160 H Calcium 8.3 L
--- NOTE | 2019-01-28 17:32 | Progress Note ---
Assessment and Plan Assessment and plan: Coffee-ground emesis. GI consultation. Continue Protonix drip. GI bleed/coffee-ground emesis. Etiology likely secondary to esophageal CA and recent anticoagulation. Continue Protonix twice a day. patient had IVC filter placement yesterday for PE. Chest pain, recurrent. ECG on presentation was a ventricular pacemaker rhythm, but on telemetry since hospitalization it appears he has had recurrent, nonsustained monomorphic ventricular tachycardia. NSVT. As above. Continue metoprolol and amiodarone Esophageal CA (dx 09/2018, currently on chemo) last was 2 weeks ago. Oncology following Pulmonary embolism. Anticoagulation held due to GI bleed. Patient with known recent diagnosis of PE ([facility] 2 weeks ago--per pt). CTA completed on this hospitalization, however, reveals pulmonary emboli and the distal basilar branches bilaterally with multifocal bilateral basilar infiltrates versus early lung infarctions. IVC filter yesterday. Dilated Nonischemic cardiomyopathy. Patient has an indwelling cardiac defibrillator. 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 History of atrial flutter. He has a history of atrial flutter status post YARELY guided cardioversion 11/2017. COPD, compensated. Bronchodilators/nebulizers Acute hypoxemic respiratory failure. Check ABG. Chest x-ray no infiltrates or effusions. Etiology likely secondary to PE and COPD. Consult pulmonary for further evaluation. GERD. PPI History of Gout (stable) Anemia of chronic disease. Follow up H&H. Transfuse for hemoglobin less than 7. Hematology following Hypokalemia. Replete potassium as needed. DM type2. Accu-Cheks and sliding scale insulin. BRITTON on CPAP. Disposition. Cont. IMCU for closer monitoring. History Interval history: Patient was seen and evaluated this morning, had vomiting this morning, tachycardia and SOB. Hospitalist Physical - Physical exam Narrative exam: Not in cardiopulmonary distress. The patient appeared well nourished and normally developed. Vital signs as documented. Head exam is unremarkable. No scleral icterus . Neck is without jugular venous distension, thyromegaly, or carotid bruits. Lungs are clear to auscultation. Cardiac exam reveals regular rate and Rhythm. First and second heart sounds normal. No murmurs, rubs or gallops. Abdominal exam reveals normal bowel sounds, no masses, no organomegaly and no aortic enlargement. Extremities are nonedematous and both femoral and pedal pulses are normal. ENGINE PILOT: Alert and oriented 3. No focal weakness. - Constitutional Vitals: Temp Pulse Resp BP Pulse Ox 98.2 F 113 H 13 96/60 99 01/28/19 16:00 01/28/19 16:00 01/28/19 16:00 01/28/19 16:00 01/28/19 16:00 General appearance: Present: no acute distress Results - Labs CBC & Chem 7: 01/28/19 04:31 01/28/19 04:31 Labs: Laboratory Last Values WBC 11.2 K/mm3 (4.5-11.0) H 01/28/19 04:31 RBC 3.75 M/mm3 (3.65-5.03) 01/28/19 04:31 Hgb 9.3 gm/dl (11.8-15.2) L 01/28/19 04:31 Hct 30.1 % (35.5-45.6) L 01/28/19 04:31 MCV 80 fl (84-94) L 01/28/19 04:31 MCH 25 pg (28-32) L 01/28/19 04:31 MCHC 31 % (32-34) L 01/28/19 04:31 RDW 21.6 % (13.2-15.2) H 01/28/19 04:31 Plt Count 226 K/mm3 (140-440) 01/28/19 04:31 Lymph % (Auto) 6.0 % (13.4-35.0) L 01/25/19 04:49 [place] % (Auto) 8.7 % (0.0-7.3) H 01/25/19 04:49 Eos % (Auto) 0.1 % (0.0-4.3) 01/25/19 04:49 Baso % (Auto) 0.3 % (0.0-1.8) 01/25/19 04:49 Lymph # 0.6 K/mm3 (1.2-5.4) L 01/25/19 04:49 [place] # 0.9 K/mm3 (0.0-0.8) H 01/25/19 04:49 Eos # 0.0 K/mm3 (0.0-0.4) 01/25/19 04:49 Baso # 0.0 K/mm3 (0.0-0.1) 01/25/19 04:49 Add Manual Diff Complete 01/28/19 04:31 Total Counted 100 01/28/19 04:31 Seg Neutrophils % 84.9 % (40.0-70.0) H 01/25/19 04:49 Seg Neuts % (Manual) 94.0 % (40.0-70.0) H 01/28/19 04:31 Band Neutrophils % 1.0 % 01/28/19 04:31 Lymphocytes % (Manual) 3.0 % (13.4-35.0) L 01/28/19 04:31 Reactive Lymphs % (Man) 0 % 01/28/19 04:31 Monocytes % (Manual) 2.0 % (0.0-7.3) 01/28/19 04:31 Eosinophils % (Manual) 0 % (0.0-4.3) 01/28/19 04:31 Basophils % (Manual) 0 % (0.0-1.8) 01/28/19 04:31 Metamyelocytes % 0 % 01/28/19 04:31 Myelocytes % 0 % 01/28/19 04:31 Promyelocytes % 0 % 01/28/19 04:31 Blast Cells % 0 % 01/28/19 04:31 Nucleated RBC % Not Reportable 01/28/19 04:31 Seg Neutrophils # 8.3 K/mm3 (1.8-7.7) H 01/25/19 04:49 Seg Neutrophils # Man 10.5 K/mm3 (1.8-7.7) H 01/28/19 04:31 Band Neutrophils # 0.1 K/mm3 01/28/19 04:31 Lymphocytes # (Manual) 0.3 K/mm3 (1.2-5.4) L 01/28/19 04:31 Abs React Lymphs (Man) 0.0 K/mm3 01/28/19 04:31 Monocytes # (Manual) 0.2 K/mm3 (0.0-0.8) 01/28/19 04:31 Eosinophils # (Manual) 0.0 K/mm3 (0.0-0.4) 01/28/19 04:31 Basophils # (Manual) 0.0 K/mm3 (0.0-0.1) 01/28/19 04:31 Metamyelocytes # 0.0 K/mm3 01/28/19 04:31 Myelocytes # 0.0 K/mm3 01/28/19 04:31 Promyelocytes # 0.0 K/mm3 01/28/19 04:31 Blast Cells # 0.0 K/mm3 01/28/19 04:31 WBC Morphology Not Reportable 01/28/19 04:31 Hypersegmented Neuts Not Reportable 01/28/19 04:31 Hyposegmented Neuts Not Reportable 01/28/19 04:31 Hypogranular Neuts Not Reportable 01/28/19 04:31 Smudge Cells Not Reportable 01/28/19 04:31 Toxic Granulation Not Reportable 01/28/19 04:31 Toxic Vacuolation Not Reportable 01/28/19 04:31 Dohle Bodies Not Reportable 01/28/19 04:31 Pelger-Huet Anomaly Not Reportable 01/28/19 04:31 Kanika Rods Not Reportable 01/28/19 04:31 Platelet Estimate Consistent w auto 01/28/19 04:31 Clumped Platelets Not Reportable 01/28/19 04:31 Plt Clumps, EDTA Not Reportable 01/28/19 04:31 Large Platelets Few 01/28/19 04:31 Giant Platelets Not Reportable 01/28/19 04:31 Platelet Satelliting Not Reportable 01/28/19 04:31 Plt Morphology Comment Not Reportable 01/28/19 04:31 RBC Morphology Not Reportable 01/28/19 04:31 Dimorphic RBCs Not Reportable 01/28/19 04:31 Polychromasia Not Reportable 01/28/19 04:31 Hypochromasia 1+ 01/28/19 04:31 Poikilocytosis 1+ 01/28/19 04:31 Anisocytosis 1+ 01/28/19 04:31 Microcytosis Not Reportable 01/28/19 04:31 Macrocytosis Not Reportable 01/28/19 04:31 Spherocytes Not Reportable 01/28/19 04:31 Pappenheimer Bodies Not Reportable 01/28/19 04:31 Sickle Cells Not Reportable 01/28/19 04:31 Target Cells Not Reportable 01/28/19 04:31 Tear Drop Cells Not Reportable 01/28/19 04:31 Ovalocytes 1+ 01/28/19 04:31 Helmet Cells Not Reportable 01/28/19 04:31 [place] Neck Bodies Not Reportable 01/28/19 04:31 [place] Rings Not Reportable 01/28/19 04:31 [place] Cells Not Reportable 01/28/19 04:31 Bite Cells Not Reportable 01/28/19 04:31 Crenated Cell Not Reportable 01/28/19 04:31 Elliptocytes Few 01/28/19 04:31 Acanthocytes (Spur) Not Reportable 01/28/19 04:31 Rouleaux Not Reportable 01/28/19 04:31 Hemoglobin C Crystals Not Reportable 01/28/19 04:31 Schistocytes Not Reportable 01/28/19 04:31 Malaria parasites Not Reportable 01/28/19 04:31 [place] Bodies Not Reportable 01/28/19 04:31 Hem Pathologist Commnt No 01/28/19 04:31 PT 27.0 Sec. (12.2-14.9) H 01/25/19 23:32 INR 2.31 (0.87-1.13) H 01/25/19 23:32 APTT 31.5 Sec. (24.2-36.6) 01/22/19 02:38 D-Dimer 259.37 ng/mlDDU (0-234) H 01/24/19 18:20 Sodium 139 mmol/L (137-145) 01/28/19 04:31 Potassium 4.4 mmol/L (3.6-5.0) 01/28/19 04:31 Chloride 97.3 mmol/L (98-107) L 01/28/19 04:31 Carbon Dioxide 25 mmol/L (22-30) 01/28/19 04:31 Anion Gap 21 mmol/L 01/28/19 04:31 BUN 42 mg/dL (9-20) H 01/28/19 04:31 Creatinine 1.2 mg/dL (0.8-1.5) 01/28/19 04:31 Estimated GFR > 60 ml/min 01/28/19 04:31 BUN/Creatinine Ratio 35 % 01/28/19 04:31 Glucose 160 mg/dL (75-100) H 01/28/19 04:31 POC Glucose 107 (70-105) H 01/24/19 18:06 Calcium 8.3 mg/dL (8.4-10.2) L 01/28/19 04:31 Magnesium 2.10 mg/dL (1.7-2.3) 01/23/19 14:49 Total Bilirubin 1.40 mg/dL (0.1-1.2) H 01/22/19 02:38 AST 13 units/L (5-40) 01/22/19 02:38 ALT 8 units/L (7-56) 01/22/19 02:38 Alkaline Phosphatase 58 units/L (35-129) 01/22/19 02:38 Total Creatine Kinase 13 units/L (55-170) L 01/24/19 18:20 CK-MB (CK-2) < 1.0 ng/mL (0.0-4.0) 01/24/19 18:20 CK-MB (CK-2) Rel Index 7.6 (0-4) H 01/24/19 18:20 Troponin T < 0.010 ng/mL (0.00-0.029) 01/24/19 18:20 NT-Pro-B Natriuret Pep 54946 pg/mL (0-900) H 01/24/19 18:20 Total Protein 6.4 g/dL (6.3-8.2) 01/22/19 02:38 Albumin 2.9 g/dL (3.9-5) L 01/22/19 02:38 Albumin/Globulin Ratio 0.8 % 01/22/19 02:38 Lipase 8 units/L (13-60) L 01/22/19 02:38 Active Medications - Current Medications Current Medications: Generic Name Dose Route Start Last Admin Trade Name Freq PRN Reason Stop Dose Admin Acetaminophen 650 mg 01/22/19 05:32 Tylenol PO Q4H PRN Pain MILD(1-3)/Fever >100.5/KNIGHT Albuterol 5 mg 01/22/19 19:02 01/22/19 21:37 Proventil IH 2.5 mg Q6HRT PRN Administration Shortness Of Breath Amiodarone HCl 200 mg 01/25/19 10:00 01/28/19 10:27 Cordarone PO 200 mg BID ROBERT Administration Arformoterol Tartrate 15 mcg 01/25/19 20:00 01/28/19 08:36 Brovana Nebu IH 15 mcg Q12HRT ROBERT Administration Budesonide 0.5 mg 01/25/19 20:00 01/28/19 08:36 Pulmicort IH 0.5 mg Q12HRT ROBERT Administration Hydromorphone HCl 0.5 mg 01/24/19 19:10 01/28/19 11:40 Dilaudid IV 0.5 mg Q4HR PRN Administration Pain , Severe (7-10) Sodium Chloride 1,000 mls @ 75 mls/hr 01/22/19 06:00 01/25/19 15:14 Nacl 0.9% 1000 Ml IV 75 mls/hr DIRECT ROBERT Administration Metoprolol Tartrate 25 mg 01/25/19 10:00 01/28/19 10:27 Lopressor PO 25 mg BID ROBERT Administration Morphine Sulfate 2 mg 01/22/19 05:32 01/28/19 04:07 Morphine IV 2 mg Q4H PRN Administration Pain, Moderate (4-6) Morphine Sulfate 15 mg 01/25/19 10:00 01/28/19 10:28 Ms Contin Er PO 15 mg Q12HR ROBERT Administration Ondansetron HCl 4 mg 01/25/19 23:49 01/28/19 10:27 Zofran IV 4 mg Q4H PRN Administration Nausea And Vomiting Oxycodone/Acetaminophen 1 tab 01/24/19 18:14 01/25/19 19:57 Percocet 5/325 PO 1 tab BID PRN Administration Pain, Moderate (4-6) Pantoprazole Sodium 40 mg 01/27/19 22:00 01/28/19 10:27 Protonix PO 40 mg BID ROBERT Administration Sodium Chloride 10 ml 01/22/19 10:00 01/28/19 10:29 Sodium Chloride Flush Syringe 10 Ml IV 10 ml BID ROBERT Administration Sodium Chloride 10 ml 01/22/19 05:32 01/23/19 03:52 Sodium Chloride Flush Syringe 10 Ml IV 10 ml PRN PRN Administration LINE FLUSH Nutrition/Malnutrition Assess - Dietary Evaluation Nutrition/Malnutrition Findings: Nutrition Notes Start: 01/23/19 10:41 Freq: Status: Active Protocol: Document 01/27/19 15:01 SHERRIE (Rec: 01/27/19 15:11 [facility] [id number]) Nutrition Notes Initial or Follow up Reassessment Current Diagnosis COPD,Diabetes,Heart Failure Other Pertinent Diagnosis Esophageal CA on radiation therapy Current Diet [place] + Glucerna BID Labs/Tests No current available Pertinent Medications MS Contin, Protonix gtt Height 6 ft 4 in Weight 112 kg [place] Body Weight (kg) 91.81 BMI 30.0 Subjective/Other Information Pt not in room at time of visit (12:30). GI consulted for coffee-ground emesis, however, no active bleeding detected. He has consumed 44% of meals since last assessment. Percent of energy/protein needs met: 23% energy 16% pro (without ONS) Burn Absent Trauma Absent #2 Nutrition Diagnosis Malnutrition Diagnosis Progress(for reassessment Continues documentation) #1 Nutrition Diagnosis Inadequate oral intake Diagnosis Progress(for reassessment Continues documentation) Is patient on ventilator? No Is Patient Ambulatory and/or Out of Bed Yes REE-([place]. Jeor-ambulatory/OOB) [ 2705.950 [id number]] Kcal/Kg value to use for calculation 20 Approximate Energy Requirements Using 2240 kcal/Kg Calculation Used for Recommendations Kcal/kg Additional Notes Pro needs 1-1.2g/kg adjBW: 102 -122g/day Fluid needs 1ml/kcal Nutrition Intervention Change Diet Order: Continue current diet Add Supplement/Snack (indicate name/kcal Glucerna 2 daily /protein ) Provides kCal: 440 Provides Protein (gm) 20 Goal #1 Meet at least 75% of kcal and pro needs via PO and ONS intakes Follow-Up By: 01/29/19 Additional Comments F/U: intakes (meals/ONS), wt
[2019-01-28] MEDS ORDERED: DILAUDID IV PRN (18:05)
[2019-01-29] MEDS: PERCOCET 5/325 PO PRN ×2 (02:03→22:31)
--- NOTE | 2019-01-29 05:17 | Hem/Onc Progress Note ---
Assessment and Plan 1. Esophageal cancer, locally advanced, not a surgical candidate because of low ejection fraction. The patient on radiation therapy and 5-FU continuous infusion to augment the radiation; however, he has not been able to get chemotherapy. He received only 48 hours of 5-FU on 01/08/2019. After that, he was admitted to [facility] and now this. 2. History of pulmonary embolism, was on Xarelto, later Lovenox. 3. Pain issues, on pain medications. 4. History of diabetes. 5. History of weight loss. 6. History of hypertension. 7. History of hyperlipidemia. 8. Esophageal cancer. 9. 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 10. Low ejection fraction. 11. HER-2 negative in the tumor. 12. PEG tube was placed, and then removed. The patient needs pain medication support. I will follow the patient during inpatient stay. long acting pain meds trial 01/26 pt off lovenox - not clear why - will talk to hosptialist [place] [facility] [place] a[place] iron PE esophageal ca - last chemo 12/21 0 - he was supposed to get IV small dose of 5 FU every other day - but he has been at [facility] 01/27 off lovenox due to gi bleed CTA shows increse in PE - comapred to past from [place] anemia - s/p iv iron esopahgeal ca pt got one 5 fu low dose on 01/[address] del castillo 01/28 c/o pain - increase pain meds pt says ms bell not working ivc filter eliquis 2.5 q 12 an option for now d/w RN reg pain meds 01/29 Port can be used TROUBLE SHOOTER pump for pain - dilaudid d/w dr yang -? use of eliquis 2.5 q 12 h/o recent Gi bleed d/w dr del castillo - transportation issues for XRT - Patient Problems (1) Esophageal cancer Current Visit: No Status: Acute Plan to address problem: pt was on 5 FU with XRT d/w dr del castillo 01/29 (2) Pulmonary embolism Current Visit: Yes Status: Acute Plan to address problem: was on xarelto - later lovenox - ? option of eliquis 2.5 q 12 pt had IVC filter (3) Anemia Current Visit: Yes Status: Acute Plan to address problem: esopahgeal ca may have a arole IV iron trial Subjective Date of service: 01/29/19 Principal diagnosis: esophageal ca - anemia - PE Interval history: c/o pain issues Objective - Constitutional Vitals: Last Vital Signs Temp 98.3 F 01/29/19 04:00 Pulse 89 01/29/19 01:00 Resp 18 01/29/19 01:00 BP 109/65 01/29/19 01:00 Pulse Ox 97 01/29/19 01:00 Pain Intensity (0-10): 8/10 General appearance: mild distress Performance status: 3-limited selfcare - EENT Eyes: EOM intact ENT: hearing intact Lymph node exam: negative cervical - Neck Neck: normal ROM - Respiratory Respiratory effort: Positive: normal Respiratory: bilateral: CTA - Cardiovascular Heart Sounds: Present: S1 & S2 Extremities: No edema - Gastrointestinal General gastrointestinal: Present: soft, non-tender Rectal Exam: deferred - Genitourinary Male genitourinary: Present: deferred - Integumentary Integumentary: warm - Musculoskeletal Musculoskeletal: strength equal bilaterally - Neurologic Neurologic: moves all extremities - Labs Lab Results: Laboratory Results - last 24 hr 01/28/19 04:31 Add Manual Diff Complete Total Counted 100 Seg Neuts % (Manual) 94.0 H Band Neutrophils % 1.0 Lymphocytes % (Manual) 3.0 L Reactive Lymphs % (Man) 0 Monocytes % (Manual) 2.0 Eosinophils % (Manual) 0 Basophils % (Manual) 0 Metamyelocytes % 0 Myelocytes % 0 Promyelocytes % 0 Blast Cells % 0 Nucleated RBC % Not Reportable Seg Neutrophils # Man 10.5 H Band Neutrophils # 0.1 Lymphocytes # (Manual) 0.3 L Abs React Lymphs (Man) 0.0 Monocytes # (Manual) 0.2 Eosinophils # (Manual) 0.0 Basophils # (Manual) 0.0 Metamyelocytes # 0.0 Myelocytes # 0.0 Promyelocytes # 0.0 Blast Cells # 0.0 WBC Morphology Not Reportable Hypersegmented Neuts Not Reportable Hyposegmented Neuts Not Reportable Hypogranular Neuts Not Reportable Smudge Cells Not Reportable Toxic Granulation Not Reportable Toxic Vacuolation Not Reportable Dohle Bodies Not Reportable Pelger-Huet Anomaly Not Reportable Kanika Rods Not Reportable Platelet Estimate Consistent w auto Clumped Platelets Not Reportable Plt Clumps, EDTA Not Reportable Large Platelets Few Giant Platelets Not Reportable Platelet Satelliting Not Reportable Plt Morphology Comment Not Reportable RBC Morphology Not Reportable Dimorphic RBCs Not Reportable Polychromasia Not Reportable Hypochromasia 1+ Poikilocytosis 1+ Anisocytosis 1+ Microcytosis Not Reportable Macrocytosis Not Reportable Spherocytes Not Reportable Pappenheimer Bodies Not Reportable Sickle Cells Not Reportable Target Cells Not Reportable Tear Drop Cells Not Reportable Ovalocytes 1+ Helmet Cells Not Reportable [place] Bodies Not Reportable [place] Rings Not Reportable [place] Cells Not Reportable Bite Cells Not Reportable Crenated Cell Not Reportable Elliptocytes Few Acanthocytes (Spur) Not Reportable Rouleaux Not Reportable Hemoglobin C Crystals Not Reportable Schistocytes Not Reportable Malaria parasites Not Reportable Kenroy Bodies Not Reportable Hem Pathologist Commnt No Medications & Allergies - Medications Allergies/Adverse Reactions: Allergies cephalexin monohydrate [From Keflex] Adverse Reaction (Verified 12/23/18 14:22) Shakes lidocaine Adverse Reaction (Verified 12/23/18 14:22) "Skin Yellowing" mushrooms Allergy (Uncoded 12/23/18 14:22) Anaphylaxis Home Medications: Home Medications Medication Instructions Recorded Confirmed Last Taken Type Magnesium Oxide 400 mg PO DAILY 08/31/16 01/23/19 12/26/18 History Insulin Glargine,Hum.rec.anlog 20 unit SQ HS 09/29/18 01/23/19 12/26/18 History [Lantus] Allopurinol [Zyloprim] 100 mg PO BID tablet 11/20/18 01/23/19 12/26/18 Rx Ferrous Sulfate [Feosol 325 MG tab] 325 mg PO BID tablet 11/20/18 01/23/19 12/26/18 Rx Lisinopril [Zestril TAB] 2.5 mg PO BID tablet 11/20/18 01/23/19 12/26/18 Rx Digoxin [Lanoxin] 0.125 mg PO DAILY 12/10/18 01/23/19 12/26/18 History Gabapentin [Neurontin] 300 mg PO DAILY 12/10/18 01/23/19 12/26/18 History Omeprazole 20 mg PO DAILY 12/10/18 01/23/19 12/26/18 History glipiZIDE [Glipizide] 10 mg PO DAILY 12/10/18 01/23/19 12/26/18 History Aspirin [Aspirin BABY CHEW TAB] 81 mg PO QDAY 12/20/18 01/23/19 12/26/18 History Potassium Chloride [Klor-Con M20] 20 meq PO BID 12/20/18 01/23/19 12/26/18 History Tizanidine HCl [Zanaflex] 4 mg PO BID 12/23/18 01/23/19 12/26/18 History Oxycodone HCl/Acetaminophen 1 each PO Q6HR PRN #20 tablet 12/24/18 01/23/19 12/26/18 Rx [Percocet 7.5/325 mg] Hydromorphone HCl [Dilaudid] 4 mg PO Q12HR PRN #20 tablet 01/06/19 01/23/19 Unknown Rx Rivaroxaban [Xarelto] 20 mg PO QDAY #30 tablet 01/06/19 01/23/19 Unknown Rx Carvedilol [Coreg] 12.5 mg PO BID #60 tablet 01/09/19 01/23/19 Unknown Rx Demadex 100 mg PO QDAY 01/09/19 01/23/19 Unknown History Active Medications: Generic Name Dose Route Start Last Admin Trade Name Freq PRN Reason Stop Dose Admin Acetaminophen 650 mg 01/22/19 05:32 Tylenol PO Q4H PRN Pain MILD(1-3)/Fever >100.5/KNIGHT Albuterol 5 mg 01/22/19 19:02 01/22/19 21:37 Proventil IH 2.5 mg Q6HRT PRN Administration Shortness Of Breath Amiodarone HCl 200 mg 01/25/19 10:00 01/28/19 22:16 Cordarone PO 200 mg BID ROBERT Administration Arformoterol Tartrate 15 mcg 01/25/19 20:00 01/28/19 20:04 Brovana Nebu IH 15 mcg Q12HRT ROBERT Administration Budesonide 0.5 mg 01/25/19 20:00 01/28/19 20:04 Pulmicort IH 0.5 mg Q12HRT ROBERT Administration Hydromorphone HCl 1 mg 01/28/19 18:05 01/28/19 18:42 Dilaudid IV 1 mg Q4HR PRN Administration Pain , Severe (7-10) Sodium Chloride 1,000 mls @ 75 mls/hr 01/22/19 06:00 01/25/19 15:14 Nacl 0.9% 1000 Ml IV 75 mls/hr DIRECT ROBERT Administration Metoprolol Tartrate 25 mg 01/25/19 10:00 01/28/19 22:17 Lopressor PO Not Given BID ROBERT Morphine Sulfate 2 mg 01/22/19 05:32 01/28/19 22:16 Morphine IV 2 mg Q4H PRN Administration Pain, Moderate (4-6) Ondansetron HCl 4 mg 01/25/19 23:49 01/28/19 10:27 Zofran IV 4 mg Q4H PRN Administration Nausea And Vomiting Oxycodone/Acetaminophen 1 tab 01/24/19 18:14 01/29/19 02:03 Percocet 5/325 PO 1 tab BID PRN Administration Pain, Moderate (4-6) Pantoprazole Sodium 40 mg 01/27/19 22:00 01/28/19 22:16 Protonix PO 40 mg BID ROBERT Administration Sodium Chloride 10 ml 01/22/19 10:00 01/28/19 22:17 Sodium Chloride Flush Syringe 10 Ml IV 10 ml BID ROBERT Administration Sodium Chloride 10 ml 01/22/19 05:32 01/23/19 03:52 Sodium Chloride Flush Syringe 10 Ml IV 10 ml PRN PRN Administration LINE FLUSH
[2019-01-29 06:33] LABS: Basophils % (Auto) 0.1 % (0.0-1.8); Eosinophils % (Auto) 0.1 % (0.0-4.3); Hematocrit 27.8 % (35.5-45.6); Hemoglobin 8.7 gm/dl (11.8-15.2); Lymphocytes # (Auto) 0.7 K/mm3 (1.2-5.4); Lymphocytes % (Auto) 7.3 % (13.4-35.0); Mean Corpuscular HGB Conc 31 % (32-34); Mean Corpuscular Volume 80 fl (84-94); Monocytes # (Auto) 0.6 K/mm3 (0.0-0.8); Monocytes % (Auto) 5.9 % (0.0-7.3); Platelet Count 173 K/mm3 (140-440); Red Blood Count 3.48 M/mm3 (3.65-5.03)
[2019-01-29 06:36] LABS: Red Cell Distribution Width 22.1 % (13.2-15.2)
[2019-01-29 06:49] LABS: BUN/Creatinine Ratio 35; Blood Urea Nitrogen 38 mg/dL (9-20); Calcium 8.4 mg/dL (8.4-10.2); Hemolysis Index 2
--- NOTE | 2019-01-29 08:57 | Progress Note ---
Assessment and Plan Epigastric pain with N/V Esophageal carcinoma Recent diagnosis of PE at [facility] on Xarelto held s/p IVC filter placed 01/27/19 Paroxysmal Afib s/p cardioversion 11/2017 Dilated nonischemic cardiomyopathy, EF 10-15% Cath 12/2017 - mild non-obstructive coronary artery disease Chronic obstructive pulmonary disease Severe Pulmonary Hypertension Essential hypertension Type 2 diabetes mellitus Obstructive sleep apnea Presence of DIAL PAINTER-ICD (Medtronic) normal functioning device on recent interrogation. Hx of VT/VF in the setting of hypokalemia Conservative cardiac management. Subjective Date of service: 01/29/19 Principal diagnosis: esophageal ca - anemia - PE Interval history: Patient complains of generalized pain. Objective Vital Signs Temp Pulse Pulse Pulse Resp Resp BP 01/29/19 08:00 97.6 F 01/29/19 05:00 90 12 111/74 01/29/19 04:00 98.3 F 90 18 117/71 01/29/19 03:00 87 17 103/73 01/29/19 02:00 90 20 102/71 01/29/19 01:00 89 18 109/65 01/29/19 00:00 97.7 F 91 H 18 113/75 01/28/19 23:00 86 20 118/68 01/28/19 22:17 104/68 01/28/19 22:00 88 16 104/68 01/28/19 21:24 85 14 103/70 01/28/19 21:00 89 15 103/70 01/28/19 20:59 18 01/28/19 20:26 88 18 01/28/19 20:04 87 18 01/28/19 20:00 98.1 F 92 H 16 107/66 01/28/19 19:00 86 19 101/67 01/28/19 16:00 98.2 F 113 H 13 96/60 01/28/19 15:00 90 19 96/60 01/28/19 14:00 92 H 19 110/74 01/28/19 13:00 92 H 13 118/83 01/28/19 12:00 98.2 F 113 H 13 105/69 01/28/19 11:00 91 H 12 105/69 01/28/19 10:27 122 H 101/73 01/28/19 10:00 120 H 20 98/76 01/28/19 09:00 89 17 98/76 Pulse Ox 01/29/19 08:00 01/29/19 05:00 01/29/19 04:00 99 01/29/19 03:00 01/29/19 02:00 01/29/19 01:00 97 01/29/19 00:00 99 01/28/19 23:00 97 01/28/19 22:17 01/28/19 22:00 97 01/28/19 21:24 95 01/28/19 21:00 93 01/28/19 20:59 99 01/28/19 20:26 01/28/19 20:04 01/28/19 20:00 98 01/28/19 19:00 97 01/28/19 16:00 99 01/28/19 15:00 98 01/28/19 14:00 98 01/28/19 13:00 99 01/28/19 12:00 99 01/28/19 11:00 01/28/19 10:27 01/28/19 10:00 97 01/28/19 09:00 97 - Physical Examination General: No Apparent Distress HEENT: Positive: PERRL Cardiac: Positive: Other (paced) Neuro: Positive: Grossly Intact Abdomen: Positive: Soft Extremities: Absent: edema - Labs and Meds CBC 01/29/19 Range/Units 05:48 WBC 9.9 (4.5-11.0) K/mm3 RBC 3.48 L (3.65-5.03) M/mm3 Hgb 8.7 L (11.8-15.2) gm/dl Hct 27.8 L (35.5-45.6) % Plt Count 173 (140-440) K/mm3 Lymph # 0.7 L (1.2-5.4) K/mm3 [place] # 0.6 (0.0-0.8) K/mm3 Eos # 0.0 (0.0-0.4) K/mm3 Baso # 0.0 (0.0-0.1) K/mm3 Comprehensive Metabolic Panel 01/29/19 Range/Units 05:48 Sodium 139 (137-145) mmol/L Potassium 4.1 (3.6-5.0) mmol/L Chloride 98.2 (98-107) mmol/L Carbon Dioxide 26 (22-30) mmol/L BUN 38 H (9-20) mg/dL Creatinine 1.1 (0.8-1.5) mg/dL Glucose 147 H (75-100) mg/dL Calcium 8.4 (8.4-10.2) mg/dL Pacemaker: ventricular pacing w/capt
[2019-01-29] MEDS ORDERED: NARCAN 0.4 MG/1 ML IV PRN (09:00)
[2019-01-29] MEDS: BROVANA NEBU IH SCH ×2 (09:29→20:37)
[2019-01-29] MEDS: PULMICORT IH SCH ×2 (09:29→20:37)
[2019-01-29] MEDS ORDERED: DILAUDID PCA 6MG/30ML IV SCH (09:30)
[2019-01-29] MEDS ORDERED: FERRLECIT 125 MG in NACL 0.9% 100 ML IV ONE (10:00)
[2019-01-29] MEDS: ZOFRAN IV PRN ×3 (10:03→20:45)
[2019-01-29] MEDS: CORDARONE PO SCH ×2 (10:30→22:34)
[2019-01-29] MEDS: LOPRESSOR PO SCH ×2 (10:30→22:33)
[2019-01-29] MEDS: PROTONIX PO SCH ×2 (10:30→22:33)
[2019-01-29] MEDS: SODIUM CHLORIDE FLUSH SYRINGE 10 ML IV SCH ×2 (11:05→22:34)
[2019-01-29] MEDS ORDERED: PHENERGAN PR PRN (16:50)
[2019-01-29] MEDS ORDERED: REGLAN IV PRN (16:50)
--- NOTE | 2019-01-29 16:52 | Progress Note ---
Assessment and Plan Assessment and plan: Coffee-ground emesis. GI consultation. Continue Protonix drip. GI bleed/coffee-ground emesis. Etiology likely secondary to esophageal CA and recent anticoagulation. Continue Protonix twice a day. patient had IVC filter placement yesterday for PE. Chest pain, recurrent. ECG on presentation was a ventricular pacemaker rhythm, but on telemetry since hospitalization it appears he has had recurrent, nonsustained monomorphic ventricular tachycardia. NSVT. As above. Continue metoprolol and amiodarone Esophageal CA (dx 09/2018, currently on chemo) last was 2 weeks ago. Oncology following Pulmonary embolism. Anticoagulation held due to GI bleed. Patient with known recent diagnosis of PE ([facility] 2 weeks ago--per pt). CTA completed on this hospitalization, however, reveals pulmonary emboli and the distal basilar branches bilaterally with multifocal bilateral basilar infiltrates versus early lung infarctions. IVC filter yesterday. Dilated Nonischemic cardiomyopathy. Patient has an indwelling cardiac defibrillator. Presence of REGISTERED PHLEBOTOMIST PART TIME-ICD (Medtronic)In December 2017, he underwent a cardiac catheterization that revealed no significant coronary artery disease, ejection fraction 15%. History of atrial flutter. He has a history of atrial flutter status post YARELY guided cardioversion 11/2017. COPD, compensated. Bronchodilators/nebulizers Acute hypoxemic respiratory failure. Check ABG. Chest x-ray no infiltrates or effusions. Etiology likely secondary to PE and COPD. Consult pulmonary for further evaluation. GERD. PPI History of Gout (stable) Anemia of chronic disease. Follow up H&H. Transfuse for hemoglobin less than 7. Hematology following Hypokalemia. Replete potassium as needed. DM type2. Accu-Cheks and sliding scale insulin. BRITTON on CPAP. severe pain; on ASSEMBLER TYPE BAR AND SEGMENT pump. Disposition. Cont. IMCU for closer monitoring. History Interval history: Patient was seen and evaluated this morning, had vomiting this morning despite zofran. I added phenergan and reglan Hospitalist Physical - Physical exam Narrative exam: Not in cardiopulmonary distress. The patient appeared well nourished and normally developed. Vital signs as documented. Head exam is unremarkable. No scleral icterus . Neck is without jugular venous distension, thyromegaly, or carotid bruits. Lungs are clear to auscultation. Cardiac exam reveals regular rate and Rhythm. First and second heart sounds normal. No murmurs, rubs or gallops. Abdominal exam reveals normal bowel sounds, no masses, no organomegaly and no aortic enlargement. Extremities are nonedematous and both femoral and pedal pulses are normal. FURNITURE DUSTER: Alert and oriented 3. No focal weakness. - Constitutional Vitals: Temp Pulse Resp BP Pulse Ox 98.4 F 92 H 18 112/87 96 01/29/19 12:00 01/29/19 16:00 01/29/19 16:00 01/29/19 16:00 01/29/19 12:00 General appearance: Present: no acute distress Results - Labs CBC & Chem 7: 01/29/19 05:48 01/29/19 05:48 Labs: Laboratory Last Values WBC 9.9 K/mm3 (4.5-11.0) 01/29/19 05:48 RBC 3.48 M/mm3 (3.65-5.03) L 01/29/19 05:48 Hgb 8.7 gm/dl (11.8-15.2) L 01/29/19 05:48 Hct 27.8 % (35.5-45.6) L 01/29/19 05:48 MCV 80 fl (84-94) L 01/29/19 05:48 MCH 25 pg (28-32) L 01/29/19 05:48 MCHC 31 % (32-34) L 01/29/19 05:48 RDW 22.1 % (13.2-15.2) H 01/29/19 05:48 Plt Count 173 K/mm3 (140-440) 01/29/19 05:48 Lymph % (Auto) 7.3 % (13.4-35.0) L 01/29/19 05:48 [place] % (Auto) 5.9 % (0.0-7.3) 01/29/19 05:48 Eos % (Auto) 0.1 % (0.0-4.3) 01/29/19 05:48 Baso % (Auto) 0.1 % (0.0-1.8) 01/29/19 05:48 Lymph # 0.7 K/mm3 (1.2-5.4) L 01/29/19 05:48 [place] # 0.6 K/mm3 (0.0-0.8) 01/29/19 05:48 Eos # 0.0 K/mm3 (0.0-0.4) 01/29/19 05:48 Baso # 0.0 K/mm3 (0.0-0.1) 01/29/19 05:48 Add Manual Diff Complete 01/28/19 04:31 Total Counted 100 01/28/19 04:31 Seg Neutrophils % 86.6 % (40.0-70.0) H 01/29/19 05:48 Seg Neuts % (Manual) 94.0 % (40.0-70.0) H 01/28/19 04:31 Band Neutrophils % 1.0 % 01/28/19 04:31 Lymphocytes % (Manual) 3.0 % (13.4-35.0) L 01/28/19 04:31 Reactive Lymphs % (Man) 0 % 01/28/19 04:31 Monocytes % (Manual) 2.0 % (0.0-7.3) 01/28/19 04:31 Eosinophils % (Manual) 0 % (0.0-4.3) 01/28/19 04:31 Basophils % (Manual) 0 % (0.0-1.8) 01/28/19 04:31 Metamyelocytes % 0 % 01/28/19 04:31 Myelocytes % 0 % 01/28/19 04:31 Promyelocytes % 0 % 01/28/19 04:31 Blast Cells % 0 % 01/28/19 04:31 Nucleated RBC % Not Reportable 01/28/19 04:31 Seg Neutrophils # 8.6 K/mm3 (1.8-7.7) H 01/29/19 05:48 Seg Neutrophils # Man 10.5 K/mm3 (1.8-7.7) H 01/28/19 04:31 Band Neutrophils # 0.1 K/mm3 01/28/19 04:31 Lymphocytes # (Manual) 0.3 K/mm3 (1.2-5.4) L 01/28/19 04:31 Abs React Lymphs (Man) 0.0 K/mm3 01/28/19 04:31 Monocytes # (Manual) 0.2 K/mm3 (0.0-0.8) 01/28/19 04:31 Eosinophils # (Manual) 0.0 K/mm3 (0.0-0.4) 01/28/19 04:31 Basophils # (Manual) 0.0 K/mm3 (0.0-0.1) 01/28/19 04:31 Metamyelocytes # 0.0 K/mm3 01/28/19 04:31 Myelocytes # 0.0 K/mm3 01/28/19 04:31 Promyelocytes # 0.0 K/mm3 01/28/19 04:31 Blast Cells # 0.0 K/mm3 01/28/19 04:31 WBC Morphology Not Reportable 01/28/19 04:31 Hypersegmented Neuts Not Reportable 01/28/19 04:31 Hyposegmented Neuts Not Reportable 01/28/19 04:31 Hypogranular Neuts Not Reportable 01/28/19 04:31 Smudge Cells Not Reportable 01/28/19 04:31 Toxic Granulation Not Reportable 01/28/19 04:31 Toxic Vacuolation Not Reportable 01/28/19 04:31 Dohle Bodies Not Reportable 01/28/19 04:31 Pelger-Huet Anomaly Not Reportable 01/28/19 04:31 Kanika Rods Not Reportable 01/28/19 04:31 Platelet Estimate Consistent w auto 01/28/19 04:31 Clumped Platelets Not Reportable 01/28/19 04:31 Plt Clumps, EDTA Not Reportable 01/28/19 04:31 Large Platelets Few 01/28/19 04:31 Giant Platelets Not Reportable 01/28/19 04:31 Platelet Satelliting Not Reportable 01/28/19 04:31 Plt Morphology Comment Not Reportable 01/28/19 04:31 RBC Morphology Not Reportable 01/28/19 04:31 Dimorphic RBCs Not Reportable 01/28/19 04:31 Polychromasia Not Reportable 01/28/19 04:31 Hypochromasia 1+ 01/28/19 04:31 Poikilocytosis 1+ 01/28/19 04:31 Anisocytosis 1+ 01/28/19 04:31 Microcytosis Not Reportable 01/28/19 04:31 Macrocytosis Not Reportable 01/28/19 04:31 Spherocytes Not Reportable 01/28/19 04:31 Pappenheimer Bodies Not Reportable 01/28/19 04:31 Sickle Cells Not Reportable 01/28/19 04:31 Target Cells Not Reportable 01/28/19 04:31 Tear Drop Cells Not Reportable 01/28/19 04:31 Ovalocytes 1+ 01/28/19 04:31 Helmet Cells Not Reportable 01/28/19 04:31 [place] Bodies Not Reportable 01/28/19 04:31 [place] Rings Not Reportable 01/28/19 04:31 [place] Cells Not Reportable 01/28/19 04:31 Bite Cells Not Reportable 01/28/19 04:31 Crenated Cell Not Reportable 01/28/19 04:31 Elliptocytes Few 01/28/19 04:31 Acanthocytes (Spur) Not Reportable 01/28/19 04:31 Rouleaux Not Reportable 01/28/19 04:31 Hemoglobin C Crystals Not Reportable 01/28/19 04:31 Schistocytes Not Reportable 01/28/19 04:31 Malaria parasites Not Reportable 01/28/19 04:31 [place] Bodies Not Reportable 01/28/19 04:31 Hem Pathologist Commnt No 01/28/19 04:31 PT 27.0 Sec. (12.2-14.9) H 01/25/19 23:32 INR 2.31 (0.87-1.13) H 01/25/19 23:32 APTT 31.5 Sec. (24.2-36.6) 01/22/19 02:38 D-Dimer 259.37 ng/mlDDU (0-234) H 01/24/19 18:20 Sodium 139 mmol/L (137-145) 01/29/19 05:48 Potassium 4.1 mmol/L (3.6-5.0) 01/29/19 05:48 Chloride 98.2 mmol/L (98-107) 01/29/19 05:48 Carbon Dioxide 26 mmol/L (22-30) 01/29/19 05:48 Anion Gap 19 mmol/L 01/29/19 05:48 BUN 38 mg/dL (9-20) H 01/29/19 05:48 Creatinine 1.1 mg/dL (0.8-1.5) 01/29/19 05:48 Estimated GFR > 60 ml/min 01/29/19 05:48 BUN/Creatinine Ratio 35 % 01/29/19 05:48 Glucose 147 mg/dL (75-100) H 01/29/19 05:48 POC Glucose 107 (70-105) H 01/24/19 18:06 Calcium 8.4 mg/dL (8.4-10.2) 01/29/19 05:48 Magnesium 2.10 mg/dL (1.7-2.3) 01/23/19 14:49 Total Bilirubin 1.40 mg/dL (0.1-1.2) H 01/22/19 02:38 AST 13 units/L (5-40) 01/22/19 02:38 ALT 8 units/L (7-56) 01/22/19 02:38 Alkaline Phosphatase 58 units/L (35-129) 01/22/19 02:38 Total Creatine Kinase 13 units/L (55-170) L 01/24/19 18:20 CK-MB (CK-2) < 1.0 ng/mL (0.0-4.0) 01/24/19 18:20 CK-MB (CK-2) Rel Index 7.6 (0-4) H 01/24/19 18:20 Troponin T < 0.010 ng/mL (0.00-0.029) 01/24/19 18:20 NT-Pro-B Natriuret Pep 98917 pg/mL (0-900) H 01/24/19 18:20 Total Protein 6.4 g/dL (6.3-8.2) 01/22/19 02:38 Albumin 2.9 g/dL (3.9-5) L 01/22/19 02:38 Albumin/Globulin Ratio 0.8 % 01/22/19 02:38 Lipase 8 units/L (13-60) L 01/22/19 02:38 Active Medications - Current Medications Current Medications: Generic Name Dose Route Start Last Admin Trade Name Freq PRN Reason Stop Dose Admin Acetaminophen 650 mg 01/22/19 05:32 Tylenol PO Q4H PRN Pain MILD(1-3)/Fever >100.5/KNIGHT Albuterol 5 mg 01/22/19 19:02 01/22/19 21:37 Proventil IH 2.5 mg Q6HRT PRN Administration Shortness Of Breath Amiodarone HCl 200 mg 01/25/19 10:00 01/28/19 22:16 Cordarone PO 200 mg BID ROBERT Administration Arformoterol Tartrate 15 mcg 01/25/19 20:00 01/29/19 09:29 Brovana Nebu IH Not Given Q12HRT ROBERT Budesonide 0.5 mg 01/25/19 20:00 01/29/19 09:29 Pulmicort IH Not Given Q12HRT ROBERT Hydromorphone/Sodium Chloride 0 mg 01/29/19 09:30 01/29/19 10:56 Dilaudid Art Handler 6mg/30ml IV 1 cart DIRECT ROBERT Administration Protocol Sodium Chloride 1,000 mls @ 75 mls/hr 01/22/19 06:00 01/25/19 15:14 Nacl 0.9% 1000 Ml IV 75 mls/hr DIRECT ROBERT Administration Metoprolol Tartrate 25 mg 01/25/19 10:00 01/28/19 22:17 Lopressor PO Not Given BID ROBERT Naloxone HCl 0.1 mg 01/29/19 09:00 Narcan 0.4 Mg/1 Ml IV Q2MIN PRN Res Rate </= 8 or 02 SAT < 92% Ondansetron HCl 4 mg 01/25/19 23:49 01/29/19 14:14 Zofran IV 4 mg Q4H PRN Administration Nausea And Vomiting Oxycodone/Acetaminophen 1 tab 01/24/19 18:14 01/29/19 02:03 Percocet 5/325 PO 1 tab BID PRN Administration Pain, Moderate (4-6) Pantoprazole Sodium 40 mg 01/27/19 22:00 01/28/19 22:16 Protonix PO 40 mg BID ROBERT Administration Sodium Chloride 10 ml 01/22/19 10:00 01/29/19 11:05 Sodium Chloride Flush Syringe 10 Ml IV 10 ml BID ROBERT Administration Sodium Chloride 10 ml 01/22/19 05:32 01/23/19 03:52 Sodium Chloride Flush Syringe 10 Ml IV 10 ml PRN PRN Administration LINE FLUSH Nutrition/Malnutrition Assess - Dietary Evaluation Nutrition/Malnutrition Findings: Nutrition Notes Start: 01/23/19 10:41 Freq: Status: Active Protocol: Document 01/29/19 10:45 EB (Rec: 01/29/19 10:51 EB [id number]) Co-Sign 01/29/19 10:45 LP Nutrition Notes Initial or Follow up Reassessment Current Diagnosis COPD,Diabetes,Heart Failure Other Pertinent Diagnosis Esophageal CA on radiation therapy Current Diet [place] + Glucerna BID Labs/Tests Reviewed Pertinent Medications Reviewed Height 6 ft 4 in Weight 112 kg [place] Body Weight (kg) 91.81 BMI 30.0 Subjective/Other Information Pt in room and states he is in constant pain, and pt winces and moves around in bed constantly. Pt says new [place] diet has been easier for him to eat and causes him less pain. Reports >75% consumption of meals yesterday and drank both Glucernas yesterday. Pt consumed about 50% of [place] diet this am. Percent of energy/protein needs met: 39%/27% Burn Absent Trauma Absent #2 Nutrition Diagnosis Malnutrition As Evidenced by Signs and Symptoms pt now consuming about 75% of new [place] diet, which meets 39%/ 27% of his energy and protein needs, respectively Diagnosis Progress(for reassessment Improved documentation) #1 Nutrition Diagnosis Inadequate oral intake As Evidenced by Signs and Symptoms pt now consuming about 75% of new [place] diet, which meets 39%/ 27% of his energy and protein needs, respectively Diagnosis Progress(for reassessment Improved documentation) Is patient on ventilator? No Is Patient Ambulatory and/or Out of Bed Yes REE-([place]-St. Jeor-ambulatory/OOB) [ 2705.950 [id number]] Kcal/Kg value to use for calculation 20 Approximate Energy Requirements Using 2240 kcal/Kg Calculation Used for Recommendations Kcal/kg Additional Notes Pro needs 1-1.2g/kg adjBW: 102 -122g/day Fluid needs 1ml/kcal Nutrition Intervention Change Diet Order: Continue current diet Add Supplement/Snack (indicate name/kcal Glucerna 2 daily /protein ) Provides kCal: 440 Provides Protein (gm) 20 Goal #1 Meet at least 75% of kcal and pro needs via PO and ONS intakes Anticipated Discharge Needs: Unable to determine at this time Follow-Up By: 01/31/19 Additional Comments F/U: intakes (meals/ONS), wt
[2019-01-30] MEDS: ZOFRAN IV PRN ×4 (03:49→17:45)
--- NOTE | 2019-01-30 08:18 | Hem/Onc Progress Note ---
Assessment and Plan 1. Esophageal cancer, locally advanced, not a surgical candidate because of low ejection fraction. The patient on radiation therapy and 5-FU continuous infusion to augment the radiation; however, he has not been able to get chemotherapy. He received only 48 hours of 5-FU on 01/08/2019. After that, he was admitted to [facility] and now this. 2. History of pulmonary embolism, was on Xarelto, later Lovenox. 3. Pain issues, on pain medications. 4. History of diabetes. 5. History of weight loss. 6. History of hypertension. 7. History of hyperlipidemia. 8. Esophageal cancer. 9. 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 10. Low ejection fraction. 11. HER-2 negative in the tumor. 12. PEG tube was placed, and then removed. The patient needs pain medication support. I will follow the patient during inpatient stay. long acting pain meds trial 01/26 pt off lovenox - not clear why - will talk to hosptialist being taken to [facility] anemia - a/sp IV iron PE esophageal ca - last chemo 12/21 0 - he was supposed to get IV small dose of 5 FU every other day - but he has been at [facility] 01/27 off lovenox due to gi bleed CTA shows increse in PE - comapred to past from [place] anemia - s/p iv iron esopahgeal ca pt got one 5 fu low dose on 01/[address] del castillo 01/28 c/o pain - increase pain meds pt says ms bell not working ivc filter eliquis 2.5 q 12 an option for now d/w RN reg pain meds 01/29 Port can be used 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 use of eliquis 2.5 q 12 h/o recent Gi bleed d/w dr del castillo - transportation issues for XRT 01/30 pain better with GAS METER REPAIR SUPERVISOR nausea - will try compazine Port accessed PE - was on xarelto and lovenox - was stopped due to bleed h/o GI bleed for cacner -w as getting XRT with chemo - missed multiple apts - due to pain issues - Patient Problems (1) Esophageal cancer Current Visit: No Status: Acute (2) Pulmonary embolism Current Visit: Yes Status: Acute (3) Anemia Current Visit: Yes Status: Acute Subjective Date of service: 01/30/19 Principal diagnosis: esophageal ca - PE Interval history: still has pain and nausea issues Objective - Constitutional Vitals: Last Vital Signs Temp 97.6 F 01/30/19 04:00 Pulse 82 01/30/19 07:00 Resp 13 01/30/19 07:14 BP 105/72 01/30/19 07:00 Pulse Ox 100 01/30/19 07:00 Pain Intensity (0-10): 10/31 General appearance: mild distress Performance status: 4-completely disabled - EENT Eyes: EOM intact ENT: clear oral mucosa Lymph node exam: negative cervical - Neck Neck: normal ROM - Respiratory Respiratory effort: Positive: normal Respiratory: bilateral: CTA - Cardiovascular Heart Sounds: Present: S1 & S2 Extremities: No edema - Gastrointestinal General gastrointestinal: Present: soft Rectal Exam: deferred - Genitourinary Male genitourinary: Present: deferred - Integumentary Integumentary: warm - Musculoskeletal Musculoskeletal: generalized weakness - Neurologic Neurologic: moves all extremities Medications & Allergies - Medications Allergies/Adverse Reactions: Allergies cephalexin monohydrate [From Keflex] Adverse Reaction (Verified 12/23/18 14:22) Shakes lidocaine Adverse Reaction (Verified 12/23/18 14:22) "Skin Yellowing" mushrooms Allergy (Uncoded 12/23/18 14:22) Anaphylaxis Home Medications: Home Medications Medication Instructions Recorded Confirmed Last Taken Type Magnesium Oxide 400 mg PO DAILY 08/31/16 01/23/19 12/26/18 History Insulin Glargine,Hum.rec.anlog 20 unit SQ HS 09/29/18 01/23/19 12/26/18 History [Lantus] Allopurinol [Zyloprim] 100 mg PO BID tablet 11/20/18 01/23/19 12/26/18 Rx Ferrous Sulfate [Feosol 325 MG tab] 325 mg PO BID tablet 11/20/18 01/23/19 12/26/18 Rx Lisinopril [Zestril TAB] 2.5 mg PO BID tablet 11/20/18 01/23/19 12/26/18 Rx Digoxin [Lanoxin] 0.125 mg PO DAILY 12/10/18 01/23/19 12/26/18 History Gabapentin [Neurontin] 300 mg PO DAILY 12/10/18 01/23/19 12/26/18 History Omeprazole 20 mg PO DAILY 12/10/18 01/23/19 12/26/18 History glipiZIDE [Glipizide] 10 mg PO DAILY 12/10/18 01/23/19 12/26/18 History Aspirin [Aspirin BABY CHEW TAB] 81 mg PO QDAY 12/20/18 01/23/19 12/26/18 History Potassium Chloride [Klor-Con M20] 20 meq PO BID 12/20/18 01/23/19 12/26/18 History Tizanidine HCl [Zanaflex] 4 mg PO BID 12/23/18 01/23/19 12/26/18 History Oxycodone HCl/Acetaminophen 1 each PO Q6HR PRN #20 tablet 12/24/18 01/23/19 12/26/18 Rx [Percocet 7.5/325 mg] Hydromorphone HCl [Dilaudid] 4 mg PO Q12HR PRN #20 tablet 01/06/19 01/23/19 Unknown Rx Rivaroxaban [Xarelto] 20 mg PO QDAY #30 tablet 01/06/19 01/23/19 Unknown Rx Carvedilol [Coreg] 12.5 mg PO BID #60 tablet 01/09/19 01/23/19 Unknown Rx Demadex 100 mg PO QDAY 01/09/19 01/23/19 Unknown History Active Medications: Generic Name Dose Route Start Last Admin Trade Name Freq PRN Reason Stop Dose Admin Acetaminophen 650 mg 01/22/19 05:32 Tylenol PO Q4H PRN Pain MILD(1-3)/Fever >100.5/KNIGHT Albuterol 5 mg 01/22/19 19:02 01/22/19 21:37 Proventil IH 2.5 mg Q6HRT PRN Administration Shortness Of Breath Amiodarone HCl 200 mg 01/25/19 10:00 01/29/19 22:34 Cordarone PO 200 mg BID ROBERT Administration Arformoterol Tartrate 15 mcg 01/25/19 20:00 01/29/19 09:29 Brovana Nebu IH Not Given Q12HRT ROBERT Budesonide 0.5 mg 01/25/19 20:00 01/29/19 09:29 Pulmicort IH Not Given Q12HRT ROBERT Hydromorphone/Sodium Chloride 0 mg 01/29/19 09:30 01/29/19 10:56 Dilaudid Bead Wire Taper 6mg/30ml IV 1 cart DIRECT ROBERT Administration Protocol Sodium Chloride 1,000 mls @ 75 mls/hr 01/22/19 06:00 01/25/19 15:14 Nacl 0.9% 1000 Ml IV 75 mls/hr DIRECT ROBERT Administration Metoclopramide HCl 10 mg 01/29/19 16:50 Reglan IV Q6H PRN Nausea And Vomiting Metoprolol Tartrate 25 mg 01/25/19 10:00 01/29/19 22:33 Lopressor PO 25 mg BID ROBERT Administration Naloxone HCl 0.1 mg 01/29/19 09:00 Narcan 0.4 Mg/1 Ml IV Q2MIN PRN Res Rate </= 8 or 02 SAT < 92% Ondansetron HCl 4 mg 01/25/19 23:49 01/30/19 07:39 Zofran IV 4 mg Q4H PRN Administration Nausea And Vomiting Oxycodone/Acetaminophen 1 tab 01/24/19 18:14 01/29/19 22:31 Percocet 5/325 PO 1 tab BID PRN Administration Pain, Moderate (4-6) Pantoprazole Sodium 40 mg 01/27/19 22:00 01/29/19 22:33 Protonix PO 40 mg BID ROBERT Administration Promethazine HCl 25 mg 01/29/19 16:50 Phenergan [place] Q6H PRN Nausea And Vomiting Sodium Chloride 10 ml 01/22/19 10:00 01/29/19 22:34 Sodium Chloride Flush Syringe 10 Ml IV 10 ml BID ROBERT Administration Sodium Chloride 10 ml 01/22/19 05:32 01/23/19 03:52 Sodium Chloride Flush Syringe 10 Ml IV 10 ml PRN PRN Administration LINE FLUSH
[2019-01-30] MEDS: BROVANA NEBU IH SCH ×2 (08:38→20:37)
[2019-01-30] MEDS: PULMICORT IH SCH ×2 (08:38→20:37)
[2019-01-30] MEDS: SODIUM CHLORIDE FLUSH SYRINGE 10 ML IV SCH ×2 (09:29→22:52)
--- NOTE | 2019-01-30 10:18 | Progress Note ---
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 Hx of VT/VF in the setting of hypokalemia Conservative cardiac management. Subjective Date of service: 01/30/19 Principal diagnosis: esophageal ca - anemia - PE Interval history: Currently on CPAP. No reported cardiac events overnight. Objective Vital Signs Temp Pulse Pulse Pulse Pulse Resp Resp 01/30/19 09:00 84 19 01/30/19 08:50 89 89 16 01/30/19 08:38 93 H 20 01/30/19 08:00 97.9 F 88 87 23 01/30/19 07:14 13 01/30/19 07:00 82 15 01/30/19 06:00 81 18 01/30/19 05:00 84 11 L 01/30/19 04:00 97.6 F 81 82 16 01/30/19 03:00 79 19 01/30/19 02:00 86 17 01/30/19 01:00 77 14 01/30/19 00:00 97.3 F L 86 82 13 01/29/19 23:00 95 H 21 01/29/19 22:33 101 H 01/29/19 22:00 92 H 14 01/29/19 21:01 131 H 22 01/29/19 20:01 94 H 21 01/29/19 20:00 97.8 F 92 H 41 H 01/29/19 19:37 91 H 11 L 01/29/19 19:01 97 H 13 01/29/19 18:00 97.4 F L 93 H 20 01/29/19 17:00 92 H 15 01/29/19 16:00 92 H 92 H 18 01/29/19 15:01 91 H 17 01/29/19 14:00 97.4 F L 93 H 16 01/29/19 13:00 93 H 19 01/29/19 12:00 98.4 F 90 93 H 18 01/29/19 11:11 15 01/29/19 11:00 92 H 15 Resp BP Pulse Ox 01/30/19 09:00 106/73 100 01/30/19 08:50 16 01/30/19 08:38 01/30/19 08:00 114/78 100 01/30/19 07:14 01/30/19 07:00 105/72 100 01/30/19 06:00 98/69 100 01/30/19 05:00 121/88 100 01/30/19 04:00 117/85 100 01/30/19 03:00 102/66 100 01/30/19 02:00 116/71 100 01/30/19 01:00 116/71 100 01/30/19 00:00 108/72 100 01/29/19 23:00 112/82 100 01/29/19 22:33 115/88 01/29/19 22:00 115/88 100 01/29/19 21:01 109/56 01/29/19 20:01 114/78 01/29/19 20:00 99 01/29/19 19:37 109/56 01/29/19 19:01 109/66 01/29/19 18:00 122/80 01/29/19 17:00 109/66 01/29/19 16:00 112/87 96 01/29/19 15:01 113/80 01/29/19 14:00 107/72 01/29/19 13:00 94/57 01/29/19 12:00 112/76 96 01/29/19 11:11 01/29/19 11:00 113/80 - Physical Examination General: No Apparent Distress Cardiac: Positive: Other (paced) Neuro: Positive: Grossly Intact Abdomen: Positive: Soft Pacemaker: ventricular pacing w/capt
[2019-01-30] MEDS: LOPRESSOR PO SCH ×3 (11:00→22:52)
[2019-01-30] MEDS: CORDARONE PO SCH ×3 (11:00→23:53)
[2019-01-30] MEDS: PROTONIX PO SCH ×2 (11:00→22:53)
[2019-01-30] MEDS: COMPAZINE IV PRN (11:53)
--- NOTE | 2019-01-30 16:11 | Progress Note ---
Assessment and Plan Assessment and plan: Coffee-ground emesis. GI consultation. Continue Protonix drip. GI bleed/coffee-ground emesis. Etiology likely secondary to esophageal CA and recent anticoagulation. Continue Protonix twice a day. patient had IVC filter placement yesterday for PE. Chest pain, recurrent. ECG on presentation was a ventricular pacemaker rhythm, but on telemetry since hospitalization it appears he has had recurrent, nonsustained monomorphic ventricular tachycardia. NSVT. As above. Continue metoprolol and amiodarone Esophageal CA (dx 09/2018, currently on chemo) last was 2 weeks ago. Oncology following. Getting radiation therapy. Pulmonary embolism. Anticoagulation held due to GI bleed. Patient with known recent diagnosis of PE ([facility] 2 weeks ago--per pt). CTA completed on this hospitalization, however, reveals pulmonary emboli and the distal basilar branches bilaterally with multifocal bilateral basilar infiltrates versus early lung infarctions. IVC filter yesterday. Dilated Nonischemic cardiomyopathy. Patient has an indwelling cardiac defibrillator. Presence of CERTIFIED BREASTFEEDING EDUCATOR-ICD (Medtronic)In December 2017, he underwent a cardiac catheterization that revealed no significant coronary artery disease, ejection fraction 15%. History of atrial flutter. He has a history of atrial flutter status post YARELY guided cardioversion 11/2017. COPD, compensated. Bronchodilators/nebulizers Acute hypoxemic respiratory failure. Check ABG. Chest x-ray no infiltrates or effusions. Etiology likely secondary to PE and COPD. Consult pulmonary for further evaluation. GERD. PPI History of Gout (stable) Anemia of chronic disease. Follow up H&H. Transfuse for hemoglobin less than 7. Hematology following Hypokalemia. Replete potassium as needed. DM type2. Accu-Cheks and sliding scale insulin. BRITTON on CPAP. 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 Disposition. Cont. IMCU for closer monitoring. History Interval history: Patient was seen and evaluated this morning, had vomiting this morning despite zofran, phenergan and reglan Hospitalist Physical - Physical exam Narrative exam: Not in cardiopulmonary distress. The patient appeared well nourished and normally developed. Vital signs as documented. Head exam is unremarkable. No scleral icterus . Neck is without jugular venous distension, thyromegaly, or carotid bruits. Lungs are clear to auscultation. Cardiac exam reveals regular rate and Rhythm. First and second heart sounds normal. No murmurs, rubs or gallops. Abdominal exam reveals normal bowel sounds, no masses, no organomegaly and no aortic enlargement. Extremities are nonedematous and both femoral and pedal pulses are normal. POULTRY PICKER: Alert and oriented 3. No focal weakness. - Constitutional Vitals: Temp Pulse Resp BP Pulse Ox 98 F 86 18 108/76 100 01/30/19 12:00 01/30/19 13:00 01/30/19 13:00 01/30/19 13:00 01/30/19 13:00 General appearance: Present: no acute distress Results - Labs CBC & Chem 7: 01/29/19 05:48 01/29/19 05:48 Labs: Laboratory Last Values WBC 9.9 K/mm3 (4.5-11.0) 01/29/19 05:48 RBC 3.48 M/mm3 (3.65-5.03) L 01/29/19 05:48 Hgb 8.7 gm/dl (11.8-15.2) L 01/29/19 05:48 Hct 27.8 % (35.5-45.6) L 01/29/19 05:48 MCV 80 fl (84-94) L 01/29/19 05:48 MCH 25 pg (28-32) L 01/29/19 05:48 MCHC 31 % (32-34) L 01/29/19 05:48 RDW 22.1 % (13.2-15.2) H 01/29/19 05:48 Plt Count 173 K/mm3 (140-440) 01/29/19 05:48 Lymph % (Auto) 7.3 % (13.4-35.0) L 01/29/19 05:48 [place] % (Auto) 5.9 % (0.0-7.3) 01/29/19 05:48 Eos % (Auto) 0.1 % (0.0-4.3) 01/29/19 05:48 Baso % (Auto) 0.1 % (0.0-1.8) 01/29/19 05:48 Lymph # 0.7 K/mm3 (1.2-5.4) L 01/29/19 05:48 [place] # 0.6 K/mm3 (0.0-0.8) 01/29/19 05:48 Eos # 0.0 K/mm3 (0.0-0.4) 01/29/19 05:48 Baso # 0.0 K/mm3 (0.0-0.1) 01/29/19 05:48 Add Manual Diff Complete 01/28/19 04:31 Total Counted 100 01/28/19 04:31 Seg Neutrophils % 86.6 % (40.0-70.0) H 01/29/19 05:48 Seg Neuts % (Manual) 94.0 % (40.0-70.0) H 01/28/19 04:31 Band Neutrophils % 1.0 % 01/28/19 04:31 Lymphocytes % (Manual) 3.0 % (13.4-35.0) L 01/28/19 04:31 Reactive Lymphs % (Man) 0 % 01/28/19 04:31 Monocytes % (Manual) 2.0 % (0.0-7.3) 01/28/19 04:31 Eosinophils % (Manual) 0 % (0.0-4.3) 01/28/19 04:31 Basophils % (Manual) 0 % (0.0-1.8) 01/28/19 04:31 Metamyelocytes % 0 % 01/28/19 04:31 Myelocytes % 0 % 01/28/19 04:31 Promyelocytes % 0 % 01/28/19 04:31 Blast Cells % 0 % 01/28/19 04:31 Nucleated RBC % Not Reportable 01/28/19 04:31 Seg Neutrophils # 8.6 K/mm3 (1.8-7.7) H 01/29/19 05:48 Seg Neutrophils # Man 10.5 K/mm3 (1.8-7.7) H 01/28/19 04:31 Band Neutrophils # 0.1 K/mm3 01/28/19 04:31 Lymphocytes # (Manual) 0.3 K/mm3 (1.2-5.4) L 01/28/19 04:31 Abs React Lymphs (Man) 0.0 K/mm3 01/28/19 04:31 Monocytes # (Manual) 0.2 K/mm3 (0.0-0.8) 01/28/19 04:31 Eosinophils # (Manual) 0.0 K/mm3 (0.0-0.4) 01/28/19 04:31 Basophils # (Manual) 0.0 K/mm3 (0.0-0.1) 01/28/19 04:31 Metamyelocytes # 0.0 K/mm3 01/28/19 04:31 Myelocytes # 0.0 K/mm3 01/28/19 04:31 Promyelocytes # 0.0 K/mm3 01/28/19 04:31 Blast Cells # 0.0 K/mm3 01/28/19 04:31 WBC Morphology Not Reportable 01/28/19 04:31 Hypersegmented Neuts Not Reportable 01/28/19 04:31 Hyposegmented Neuts Not Reportable 01/28/19 04:31 Hypogranular Neuts Not Reportable 01/28/19 04:31 Smudge Cells Not Reportable 01/28/19 04:31 Toxic Granulation Not Reportable 01/28/19 04:31 Toxic Vacuolation Not Reportable 01/28/19 04:31 Dohle Bodies Not Reportable 01/28/19 04:31 Pelger-Huet Anomaly Not Reportable 01/28/19 04:31 Kanika Rods Not Reportable 01/28/19 04:31 Platelet Estimate Consistent w auto 01/28/19 04:31 Clumped Platelets Not Reportable 01/28/19 04:31 Plt Clumps, EDTA Not Reportable 01/28/19 04:31 Large Platelets Few 01/28/19 04:31 Giant Platelets Not Reportable 01/28/19 04:31 Platelet Satelliting Not Reportable 01/28/19 04:31 Plt Morphology Comment Not Reportable 01/28/19 04:31 RBC Morphology Not Reportable 01/28/19 04:31 Dimorphic RBCs Not Reportable 01/28/19 04:31 Polychromasia Not Reportable 01/28/19 04:31 Hypochromasia 1+ 01/28/19 04:31 Poikilocytosis 1+ 01/28/19 04:31 Anisocytosis 1+ 01/28/19 04:31 Microcytosis Not Reportable 01/28/19 04:31 Macrocytosis Not Reportable 01/28/19 04:31 Spherocytes Not Reportable 01/28/19 04:31 Pappenheimer Bodies Not Reportable 01/28/19 04:31 Sickle Cells Not Reportable 01/28/19 04:31 Target Cells Not Reportable 01/28/19 04:31 Tear Drop Cells Not Reportable 01/28/19 04:31 Ovalocytes 1+ 01/28/19 04:31 Helmet Cells Not Reportable 01/28/19 04:31 Jefferson-Struble Bodies Not Reportable 01/28/19 04:31 [place] Rings Not Reportable 01/28/19 04:31 Patricia Cells Not Reportable 01/28/19 04:31 Bite Cells Not Reportable 01/28/19 04:31 Crenated Cell Not Reportable 01/28/19 04:31 Elliptocytes Few 01/28/19 04:31 Acanthocytes (Spur) Not Reportable 01/28/19 04:31 Rouleaux Not Reportable 01/28/19 04:31 Hemoglobin C Crystals Not Reportable 01/28/19 04:31 Schistocytes Not Reportable 01/28/19 04:31 Malaria parasites Not Reportable 01/28/19 04:31 Kenroy Bodies Not Reportable 01/28/19 04:31 Hem Pathologist Commnt No 01/28/19 04:31 PT 27.0 Sec. (12.2-14.9) H 01/25/19 23:32 INR 2.31 (0.87-1.13) H 01/25/19 23:32 APTT 31.5 Sec. (24.2-36.6) 01/22/19 02:38 D-Dimer 259.37 ng/mlDDU (0-234) H 01/24/19 18:20 Sodium 139 mmol/L (137-145) 01/29/19 05:48 Potassium 4.1 mmol/L (3.6-5.0) 01/29/19 05:48 Chloride 98.2 mmol/L (98-107) 01/29/19 05:48 Carbon Dioxide 26 mmol/L (22-30) 01/29/19 05:48 Anion Gap 19 mmol/L 01/29/19 05:48 BUN 38 mg/dL (9-20) H 01/29/19 05:48 Creatinine 1.1 mg/dL (0.8-1.5) 01/29/19 05:48 Estimated GFR > 60 ml/min 01/29/19 05:48 BUN/Creatinine Ratio 35 % 01/29/19 05:48 Glucose 147 mg/dL (75-100) H 01/29/19 05:48 POC Glucose 107 (70-105) H 01/24/19 18:06 Calcium 8.4 mg/dL (8.4-10.2) 01/29/19 05:48 Magnesium 2.10 mg/dL (1.7-2.3) 01/23/19 14:49 Total Bilirubin 1.40 mg/dL (0.1-1.2) H 01/22/19 02:38 AST 13 units/L (5-40) 01/22/19 02:38 ALT 8 units/L (7-56) 01/22/19 02:38 Alkaline Phosphatase 58 units/L (35-129) 01/22/19 02:38 Total Creatine Kinase 13 units/L (55-170) L 01/24/19 18:20 CK-MB (CK-2) < 1.0 ng/mL (0.0-4.0) 01/24/19 18:20 CK-MB (CK-2) Rel Index 7.6 (0-4) H 01/24/19 18:20 Troponin T < 0.010 ng/mL (0.00-0.029) 01/24/19 18:20 NT-Pro-B Natriuret Pep 57864 pg/mL (0-900) H 01/24/19 18:20 Total Protein 6.4 g/dL (6.3-8.2) 01/22/19 02:38 Albumin 2.9 g/dL (3.9-5) L 01/22/19 02:38 Albumin/Globulin Ratio 0.8 % 01/22/19 02:38 Lipase 8 units/L (13-60) L 01/22/19 02:38 Active Medications - Current Medications Current Medications: Generic Name Dose Route Start Last Admin Trade Name Freq PRN Reason Stop Dose Admin Acetaminophen 650 mg 01/22/19 05:32 Tylenol PO Q4H PRN Pain MILD(1-3)/Fever >100.5/KNIGHT Albuterol 5 mg 01/22/19 19:02 01/22/19 21:37 Proventil IH 2.5 mg Q6HRT PRN Administration Shortness Of Breath Amiodarone HCl 200 mg 01/25/19 10:00 01/29/19 22:34 Cordarone PO 200 mg BID ROBERT Administration Arformoterol Tartrate 15 mcg 01/25/19 20:00 01/30/19 08:38 Brovana Nebu IH 15 mcg Q12HRT ROBERT Administration Budesonide 0.5 mg 01/25/19 20:00 01/30/19 08:38 Pulmicort IH 0.5 mg Q12HRT ROBERT Administration Hydromorphone/Sodium Chloride 0 mg 01/29/19 09:30 01/29/19 10:56 Dilaudid Type Mapper 6mg/30ml IV 1 cart DIRECT ROBERT Administration Protocol Sodium Chloride 1,000 mls @ 75 mls/hr 01/22/19 06:00 01/25/19 15:14 Nacl 0.9% 1000 Ml IV 75 mls/hr DIRECT ROBERT Administration Metoclopramide HCl 10 mg 01/29/19 16:50 Reglan IV Q6H PRN Nausea And Vomiting Metoprolol Tartrate 25 mg 01/25/19 10:00 01/29/19 22:33 Lopressor PO 25 mg BID ROBERT Administration Naloxone HCl 0.1 mg 01/29/19 09:00 Narcan 0.4 Mg/1 Ml IV Q2MIN PRN Res Rate </= 8 or 02 SAT < 92% Ondansetron HCl 4 mg 01/25/19 23:49 01/30/19 09:27 Zofran IV 4 mg Q4H PRN Administration Nausea And Vomiting Oxycodone/Acetaminophen 1 tab 01/24/19 18:14 01/29/19 22:31 Percocet 5/325 PO 1 tab BID PRN Administration Pain, Moderate (4-6) Pantoprazole Sodium 40 mg 01/27/19 22:00 01/29/19 22:33 Protonix PO 40 mg BID ROBERT Administration Prochlorperazine Edisylate 5 mg 01/30/19 09:14 01/30/19 11:53 Compazine IV 5 mg Q6H PRN Administration Nausea And Vomiting Promethazine HCl 25 mg 01/29/19 16:50 Phenergan MS Q6H PRN Nausea And Vomiting Sodium Chloride 10 ml 01/22/19 10:00 01/30/19 09:29 Sodium Chloride Flush Syringe 10 Ml IV 10 ml BID ROBERT Administration Sodium Chloride 10 ml 01/22/19 05:32 01/23/19 03:52 Sodium Chloride Flush Syringe 10 Ml IV 10 ml PRN PRN Administration LINE FLUSH Nutrition/Malnutrition Assess - Dietary Evaluation Nutrition/Malnutrition Findings: Nutrition Notes Start: 01/23/19 10:41 Freq: Status: Active Protocol: Document 01/29/19 10:45 EB (Rec: 01/29/19 10:51 EB [id number]) Co-Sign 01/29/19 10:45 LP Nutrition Notes Initial or Follow up Reassessment Current Diagnosis COPD,Diabetes,Heart Failure Other Pertinent Diagnosis Esophageal CA on radiation therapy Current Diet [place] + Glucerna BID Labs/Tests Reviewed Pertinent Medications Reviewed Height 6 ft 4 in Weight 112 kg [place] Body Weight (kg) 91.81 BMI 30.0 Subjective/Other Information Pt in room and states he is in constant pain, and pt winces and moves around in bed constantly. Pt says new [place] diet has been easier for him to eat and causes him less pain. Reports >75% consumption of meals yesterday and drank both Glucernas yesterday. Pt consumed about 50% of [place] diet this am. Percent of energy/protein needs met: 39%/27% Burn Absent Trauma Absent #2 Nutrition Diagnosis Malnutrition As Evidenced by Signs and Symptoms pt now consuming about 75% of new [place] diet, which meets 39%/ 27% of his energy and protein needs, respectively Diagnosis Progress(for reassessment Improved documentation) #1 Nutrition Diagnosis Inadequate oral intake As Evidenced by Signs and Symptoms pt now consuming about 75% of new [place] diet, which meets 39%/ 27% of his energy and protein needs, respectively Diagnosis Progress(for reassessment Improved documentation) Is patient on ventilator? No Is Patient Ambulatory and/or Out of Bed Yes REE-([facility]-ambulatory/OOB) [ 9365.950 [id number]] Kcal/Kg value to use for calculation 20 Approximate Energy Requirements Using 2240 kcal/Kg Calculation Used for Recommendations Kcal/kg Additional Notes Pro needs 1-1.2g/kg adjBW: 102 -122g/day Fluid needs 1ml/kcal Nutrition Intervention Change Diet Order: Continue current diet Add Supplement/Snack (indicate name/kcal Glucerna 2 daily /protein ) Provides kCal: 440 Provides Protein (gm) 20 Goal #1 Meet at least 75% of kcal and pro needs via PO and ONS intakes Anticipated Discharge Needs: Unable to determine at this time Follow-Up By: 01/31/19 Additional Comments F/U: intakes (meals/ONS), wt
[2019-01-30] MEDS: PERCOCET 5/325 PO PRN (22:53)
[2019-01-31] MEDS: ZOFRAN IV PRN ×2 (04:58→15:04)
--- NOTE | 2019-01-31 08:36 | Progress Note ---
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 Hx of VT/VF in the setting of hypokalemia Conservative cardiac management. Subjective Date of service: 01/31/19 Principal diagnosis: esophageal ca - anemia - PE Interval history: Currently on CPAP. No reported cardiac events overnight. Objective Vital Signs Temp Pulse Pulse Pulse Pulse Resp Resp 01/31/19 07:25 20 01/31/19 06:00 85 15 01/31/19 05:00 85 11 L 01/31/19 04:00 98.5 F 81 87 19 01/31/19 03:00 89 24 01/31/19 02:01 86 20 01/31/19 01:00 96 H 19 01/31/19 00:01 97 H 14 01/31/19 00:00 98.3 F 94 H 20 01/30/19 23:01 107 H 19 01/30/19 23:00 12 01/30/19 22:52 106 H 01/30/19 22:00 129 H 25 H 01/30/19 21:01 102 H 28 H 01/30/19 21:00 18 01/30/19 20:45 88 01/30/19 20:00 98.0 F 85 87 20 01/30/19 19:35 84 21 01/30/19 19:34 20 01/30/19 19:00 98 H 14 01/30/19 18:00 80 27 H 01/30/19 17:01 87 16 01/30/19 16:00 97.6 F 88 84 19 01/30/19 15:00 94 H 22 01/30/19 14:00 83 18 01/30/19 13:00 86 18 01/30/19 12:00 98 F 82 98 H 13 01/30/19 11:00 86 19 01/30/19 10:00 77 8 L 01/30/19 09:00 84 19 01/30/19 08:50 89 89 16 01/30/19 08:38 93 H 20 Resp BP Pulse Ox 01/31/19 07:25 01/31/19 06:00 110/82 100 01/31/19 05:00 123/72 100 01/31/19 04:00 105/74 100 01/31/19 03:00 99/66 99 01/31/19 02:01 115/87 100 01/31/19 01:00 119/85 100 01/31/19 00:01 100/67 100 01/31/19 00:00 100 01/30/19 23:01 132/91 100 01/30/19 23:00 01/30/19 22:52 125/92 01/30/19 22:00 106/81 100 01/30/19 21:01 123/90 100 01/30/19 21:00 01/30/19 20:45 18 01/30/19 20:00 120/82 100 01/30/19 19:35 124/82 100 01/30/19 19:34 01/30/19 19:00 124/82 100 01/30/19 18:00 117/86 100 01/30/19 17:01 113/80 99 01/30/19 16:00 99/68 97 01/30/19 15:00 123/84 98 01/30/19 14:00 103/65 100 01/30/19 13:00 108/76 100 01/30/19 12:00 118/76 100 01/30/19 11:00 108/70 100 01/30/19 10:00 114/70 100 01/30/19 09:00 106/73 100 01/30/19 08:50 16 01/30/19 08:38 - Physical Examination General: No Apparent Distress Cardiac: Positive: Other (paced) Neuro: Positive: Grossly Intact Extremities: Absent: edema Pacemaker: ventricular pacing w/capt
[2019-01-31] MEDS: PULMICORT IH SCH ×2 (08:40→19:08)
[2019-01-31] MEDS: BROVANA NEBU IH SCH ×2 (08:40→19:08)
[2019-01-31] MEDS: SODIUM CHLORIDE FLUSH SYRINGE 10 ML IV SCH ×2 (10:14→21:19)
[2019-01-31] MEDS: CORDARONE PO SCH ×2 (10:14→21:19)
[2019-01-31] MEDS: PROTONIX PO SCH ×2 (10:14→21:18)
[2019-01-31] MEDS: LOPRESSOR PO SCH ×2 (10:14→21:20)
[2019-01-31] MEDS: COMPAZINE IV PRN (10:14)
--- NOTE | 2019-01-31 13:43 | Hem/Onc Progress Note ---
Assessment and Plan 1. Esophageal cancer, locally advanced, not a surgical candidate because of low ejection fraction. The patient on radiation therapy and 5-FU continuous infusion to augment the radiation; however, he has not been able to get chemotherapy. He received only 48 hours of 5-FU on 01/08/2019. After that, he was admitted to [facility] and now this. 2. History of pulmonary embolism, was on Xarelto, later Lovenox. 3. Pain issues, on pain medications. 4. History of diabetes. 5. History of weight loss. 6. History of hypertension. 7. History of hyperlipidemia. 8. Esophageal cancer. 9. 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 10. Low ejection fraction. 11. HER-2 negative in the tumor. 12. PEG tube was placed, and then removed. The patient needs pain medication support. I will follow the patient during inpatient stay. long acting pain meds trial 01/26 pt off lovenox - not clear why - will talk to hosptialist being taken to [facility] [place] anemia - a/sp IV iron PE esophageal ca - last chemo 12/21 0 - he was supposed to get IV small dose of 5 FU every other day - but he has been at [facility] 01/27 off lovenox due to gi bleed CTA shows increse in PE - comapred to past from [facility] anemia - s/p iv iron esopahgeal ca pt got one 5 fu low dose on 01/[address] del castillo 01/28 c/o pain - increase pain meds pt says ms bell not working ivc filter eliquis 2.5 q 12 an option for now d/w RN reg pain meds 01/29 Port can be used GLOVE CUFFER pump for pain - dilaudid d/w dr yang -? use of eliquis 2.5 q 12 h/o recent Gi bleed d/w dr del castillo - transportation issues for XRT 01/30 pain better with GLOVE CUFFER nausea - will try compazine Port accessed PE - was on xarelto and lovenox - was stopped due to bleed h/o GI bleed for cancer -was getting XRT with chemo - missed multiple apts - due to pain issues 01/31 pain better nausea better not eating or taking lot of oral meds d/w dr yang reg eliquis 2.5 hb better - Patient Problems (1) Esophageal cancer Current Visit: No Status: Acute (2) Pulmonary embolism Current Visit: Yes Status: Acute (3) Anemia Current Visit: Yes Status: Acute Subjective Date of service: 01/31/19 Principal diagnosis: esophageal ca - PE - anemia Interval history: pain and nausea better Objective - Constitutional Vitals: Last Vital Signs Temp 97.9 F 01/31/19 12:00 Pulse 93 H 01/31/19 13:00 Resp 24 01/31/19 13:00 BP 126/86 01/31/19 13:00 Pulse Ox 100 01/31/19 13:00 Pain Intensity (0-10): 10/31 General appearance: mild distress Performance status: 3-limited selfcare - EENT Eyes: EOM intact ENT: clear oral mucosa Lymph node exam: negative cervical - Neck Neck: normal ROM - Respiratory Respiratory effort: Positive: normal Respiratory: negative: diminished - Cardiovascular Heart Sounds: Present: S1 & S2 Extremities: No edema - Gastrointestinal General gastrointestinal: Present: soft, non-tender Rectal Exam: deferred - Genitourinary Male genitourinary: Present: deferred - Integumentary Integumentary: warm - Musculoskeletal Musculoskeletal: generalized weakness - Neurologic Neurologic: moves all extremities Medications & Allergies - Medications Allergies/Adverse Reactions: Allergies cephalexin monohydrate [From Keflex] Adverse Reaction (Verified 12/23/18 14:22) Shakes lidocaine Adverse Reaction (Verified 12/23/18 14:22) "Skin Yellowing" mushrooms Allergy (Uncoded 12/23/18 14:22) Anaphylaxis Home Medications: Home Medications Medication Instructions Recorded Confirmed Last Taken Type Magnesium Oxide 400 mg PO DAILY 08/31/16 01/23/19 12/26/18 History Insulin Glargine,Hum.rec.anlog 20 unit SQ HS 09/29/18 01/23/19 12/26/18 History [Lantus] Allopurinol [Zyloprim] 100 mg PO BID tablet 11/20/18 01/23/19 12/26/18 Rx Ferrous Sulfate [Feosol 325 MG tab] 325 mg PO BID tablet 11/20/18 01/23/19 12/26/18 Rx Lisinopril [Zestril TAB] 2.5 mg PO BID tablet 11/20/18 01/23/19 12/26/18 Rx Digoxin [Lanoxin] 0.125 mg PO DAILY 12/10/18 01/23/19 12/26/18 History Gabapentin [Neurontin] 300 mg PO DAILY 12/10/18 01/23/19 12/26/18 History Omeprazole 20 mg PO DAILY 12/10/18 01/23/19 12/26/18 History glipiZIDE [Glipizide] 10 mg PO DAILY 12/10/18 01/23/19 12/26/18 History Aspirin [Aspirin BABY CHEW TAB] 81 mg PO QDAY 12/20/18 01/23/19 12/26/18 History Potassium Chloride [Klor-Con M20] 20 meq PO BID 12/20/18 01/23/19 12/26/18 History Tizanidine HCl [Zanaflex] 4 mg PO BID 12/23/18 01/23/19 12/26/18 History Oxycodone HCl/Acetaminophen 1 each PO Q6HR PRN #20 tablet 12/24/18 01/23/19 12/26/18 Rx [Percocet 7.5/325 mg] Hydromorphone HCl [Dilaudid] 4 mg PO Q12HR PRN #20 tablet 01/06/19 01/23/19 Unknown Rx Rivaroxaban [Xarelto] 20 mg PO QDAY #30 tablet 01/06/19 01/23/19 Unknown Rx Carvedilol [Coreg] 12.5 mg PO BID #60 tablet 01/09/19 01/23/19 Unknown Rx Demadex 100 mg PO QDAY 01/09/19 01/23/19 Unknown History Active Medications: Generic Name Dose Route Start Last Admin Trade Name Freq PRN Reason Stop Dose Admin Acetaminophen 650 mg 01/22/19 05:32 Tylenol PO Q4H PRN Pain MILD(1-3)/Fever >100.5/KNIGHT Albuterol 5 mg 01/22/19 19:02 01/22/19 21:37 Proventil IH 2.5 mg Q6HRT PRN Administration Shortness Of Breath Amiodarone HCl 200 mg 01/25/19 10:00 01/31/19 10:14 Cordarone PO 200 mg BID ROBERT Administration Arformoterol Tartrate 15 mcg 01/25/19 20:00 01/31/19 08:40 Brovana Nebu IH 15 mcg Q12HRT ROBERT Administration Budesonide 0.5 mg 01/25/19 20:00 01/31/19 08:40 Pulmicort IH 0.5 mg Q12HRT ROBERT Administration Hydromorphone/Sodium Chloride 0 mg 01/29/19 09:30 01/29/19 10:56 Dilaudid Long Filler Cigar Roller Machine 6mg/30ml IV 1 cart DIRECT ROBERT Administration Protocol Sodium Chloride 1,000 mls @ 75 mls/hr 01/22/19 06:00 01/25/19 15:14 Nacl 0.9% 1000 Ml IV 75 mls/hr DIRECT ROBERT Administration Metoclopramide HCl 10 mg 01/29/19 16:50 Reglan IV Q6H PRN Nausea And Vomiting Metoprolol Tartrate 25 mg 01/25/19 10:00 01/31/19 10:14 Lopressor PO 25 mg BID ROBERT Administration Naloxone HCl 0.1 mg 01/29/19 09:00 Narcan 0.4 Mg/1 Ml IV Q2MIN PRN Res Rate </= 8 or 02 SAT < 92% Ondansetron HCl 4 mg 01/25/19 23:49 01/31/19 04:58 Zofran IV 4 mg Q4H PRN Administration Nausea And Vomiting Oxycodone/Acetaminophen 1 tab 01/24/19 18:14 01/30/19 22:53 Percocet 5/325 PO 1 tab BID PRN Administration Pain, Moderate (4-6) Pantoprazole Sodium 40 mg 01/27/19 22:00 01/31/19 10:14 Protonix PO 40 mg BID ROBERT Administration Prochlorperazine Edisylate 5 mg 01/30/19 09:14 01/31/19 10:14 Compazine IV 5 mg Q6H PRN Administration Nausea And Vomiting Promethazine HCl 25 mg 01/29/19 16:50 Phenergan [place] Q6H PRN Nausea And Vomiting Sodium Chloride 10 ml 01/22/19 10:00 01/30/19 22:52 Sodium Chloride Flush Syringe 10 Ml IV 10 ml BID ROBERT Administration Sodium Chloride 10 ml 01/22/19 05:32 01/23/19 03:52 Sodium Chloride Flush Syringe 10 Ml IV 10 ml PRN PRN Administration LINE FLUSH
--- NOTE | 2019-01-31 14:41 | Progress Note ---
Assessment and Plan Assessment and plan: Coffee-ground emesis. GI consultation. Continue Protonix drip. GI bleed/coffee-ground emesis. Etiology likely secondary to esophageal CA and recent anticoagulation. Continue Protonix twice a day. patient had IVC filter placement yesterday for PE. Chest pain, recurrent. ECG on presentation was a ventricular pacemaker rhythm, but on telemetry since hospitalization it appears he has had recurrent, nonsustained monomorphic ventricular tachycardia. NSVT. As above. Continue metoprolol and amiodarone Esophageal CA (dx 09/2018, currently on chemo) last was 2 weeks ago. Oncology following. Getting radiation therapy. Pulmonary embolism. Anticoagulation held due to GI bleed. Patient with known recent diagnosis of PE ([facility] 2 weeks ago--per pt). CTA completed on this hospitalization, however, reveals pulmonary emboli and the distal basilar branches bilaterally with multifocal bilateral basilar infiltrates versus early lung infarctions. IVC filter yesterday. Dilated Nonischemic cardiomyopathy. Patient has an indwelling cardiac defibrillator. 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 History of atrial flutter. He has a history of atrial flutter status post YARELY guided cardioversion 11/2017. COPD, compensated. Bronchodilators/nebulizers Acute hypoxemic respiratory failure. Check ABG. Chest x-ray no infiltrates or effusions. Etiology likely secondary to PE and COPD. Consult pulmonary for further evaluation. GERD. PPI History of Gout (stable) Anemia of chronic disease. Follow up H&H. Transfuse for hemoglobin less than 7. Hematology following Hypokalemia. Replete potassium as needed. DM type2. Accu-Cheks and sliding scale insulin. BRITTON on CPAP. severe pain; on INFANT ROOM TEACHER pump. Disposition. Cont. IMCU for closer monitoring. History Interval history: Patient was seen and evaluated this morning, still c/o vomiting despite zofran, phenergan and reglan Hospitalist Physical - Physical exam Narrative exam: Not in cardiopulmonary distress. The patient appeared well nourished and normally developed. Vital signs as documented. Head exam is unremarkable. No scleral icterus . Neck is without jugular venous distension, thyromegaly, or carotid bruits. Lungs are clear to auscultation. Cardiac exam reveals regular rate and Rhythm. First and second heart sounds normal. No murmurs, rubs or gallops. Abdominal exam reveals normal bowel sounds, no masses, no organomegaly and no aortic enlargement. Extremities are nonedematous and both femoral and pedal pulses are normal. MONITORING AND EVALUATION ADVISOR: Alert and oriented 3. No focal weakness. - Constitutional Vitals: Temp Pulse Resp BP Pulse Ox 97.9 F 93 H 24 126/86 100 01/31/19 12:00 01/31/19 13:00 01/31/19 13:00 01/31/19 13:00 01/31/19 13:00 General appearance: Present: no acute distress Results - Labs CBC & Chem 7: 01/29/19 05:48 01/29/19 05:48 Labs: Laboratory Last Values WBC 9.9 K/mm3 (4.5-11.0) 01/29/19 05:48 RBC 3.48 M/mm3 (3.65-5.03) L 01/29/19 05:48 Hgb 8.7 gm/dl (11.8-15.2) L 01/29/19 05:48 Hct 27.8 % (35.5-45.6) L 01/29/19 05:48 MCV 80 fl (84-94) L 01/29/19 05:48 MCH 25 pg (28-32) L 01/29/19 05:48 MCHC 31 % (32-34) L 01/29/19 05:48 RDW 22.1 % (13.2-15.2) H 01/29/19 05:48 Plt Count 173 K/mm3 (140-440) 01/29/19 05:48 Lymph % (Auto) 7.3 % (13.4-35.0) L 01/29/19 05:48 [place] % (Auto) 5.9 % (0.0-7.3) 01/29/19 05:48 Eos % (Auto) 0.1 % (0.0-4.3) 01/29/19 05:48 Baso % (Auto) 0.1 % (0.0-1.8) 01/29/19 05:48 Lymph # 0.7 K/mm3 (1.2-5.4) L 01/29/19 05:48 [place] # 0.6 K/mm3 (0.0-0.8) 01/29/19 05:48 Eos # 0.0 K/mm3 (0.0-0.4) 01/29/19 05:48 Baso # 0.0 K/mm3 (0.0-0.1) 01/29/19 05:48 Add Manual Diff Complete 01/28/19 04:31 Total Counted 100 01/28/19 04:31 Seg Neutrophils % 86.6 % (40.0-70.0) H 01/29/19 05:48 Seg Neuts % (Manual) 94.0 % (40.0-70.0) H 01/28/19 04:31 Band Neutrophils % 1.0 % 01/28/19 04:31 Lymphocytes % (Manual) 3.0 % (13.4-35.0) L 01/28/19 04:31 Reactive Lymphs % (Man) 0 % 01/28/19 04:31 Monocytes % (Manual) 2.0 % (0.0-7.3) 01/28/19 04:31 Eosinophils % (Manual) 0 % (0.0-4.3) 01/28/19 04:31 Basophils % (Manual) 0 % (0.0-1.8) 01/28/19 04:31 Metamyelocytes % 0 % 01/28/19 04:31 Myelocytes % 0 % 01/28/19 04:31 Promyelocytes % 0 % 01/28/19 04:31 Blast Cells % 0 % 01/28/19 04:31 Nucleated RBC % Not Reportable 01/28/19 04:31 Seg Neutrophils # 8.6 K/mm3 (1.8-7.7) H 01/29/19 05:48 Seg Neutrophils # Man 10.5 K/mm3 (1.8-7.7) H 01/28/19 04:31 Band Neutrophils # 0.1 K/mm3 01/28/19 04:31 Lymphocytes # (Manual) 0.3 K/mm3 (1.2-5.4) L 01/28/19 04:31 Abs React Lymphs (Man) 0.0 K/mm3 01/28/19 04:31 Monocytes # (Manual) 0.2 K/mm3 (0.0-0.8) 01/28/19 04:31 Eosinophils # (Manual) 0.0 K/mm3 (0.0-0.4) 01/28/19 04:31 Basophils # (Manual) 0.0 K/mm3 (0.0-0.1) 01/28/19 04:31 Metamyelocytes # 0.0 K/mm3 01/28/19 04:31 Myelocytes # 0.0 K/mm3 01/28/19 04:31 Promyelocytes # 0.0 K/mm3 01/28/19 04:31 Blast Cells # 0.0 K/mm3 01/28/19 04:31 WBC Morphology Not Reportable 01/28/19 04:31 Hypersegmented Neuts Not Reportable 01/28/19 04:31 Hyposegmented Neuts Not Reportable 01/28/19 04:31 Hypogranular Neuts Not Reportable 01/28/19 04:31 Smudge Cells Not Reportable 01/28/19 04:31 Toxic Granulation Not Reportable 01/28/19 04:31 Toxic Vacuolation Not Reportable 01/28/19 04:31 Dohle Bodies Not Reportable 01/28/19 04:31 Pelger-Huet Anomaly Not Reportable 01/28/19 04:31 Kanika Rods Not Reportable 01/28/19 04:31 Platelet Estimate Consistent w auto 01/28/19 04:31 Clumped Platelets Not Reportable 01/28/19 04:31 Plt Clumps, EDTA Not Reportable 01/28/19 04:31 Large Platelets Few 01/28/19 04:31 Giant Platelets Not Reportable 01/28/19 04:31 Platelet Satelliting Not Reportable 01/28/19 04:31 Plt Morphology Comment Not Reportable 01/28/19 04:31 RBC Morphology Not Reportable 01/28/19 04:31 Dimorphic RBCs Not Reportable 01/28/19 04:31 Polychromasia Not Reportable 01/28/19 04:31 Hypochromasia 1+ 01/28/19 04:31 Poikilocytosis 1+ 01/28/19 04:31 Anisocytosis 1+ 01/28/19 04:31 Microcytosis Not Reportable 01/28/19 04:31 Macrocytosis Not Reportable 01/28/19 04:31 Spherocytes Not Reportable 01/28/19 04:31 Pappenheimer Bodies Not Reportable 01/28/19 04:31 Sickle Cells Not Reportable 01/28/19 04:31 Target Cells Not Reportable 01/28/19 04:31 Tear Drop Cells Not Reportable 01/28/19 04:31 Ovalocytes 1+ 01/28/19 04:31 Helmet Cells Not Reportable 01/28/19 04:31 [place] Bodies Not Reportable 01/28/19 04:31 [place] Rings Not Reportable 01/28/19 04:31 [place] Cells Not Reportable 01/28/19 04:31 Bite Cells Not Reportable 01/28/19 04:31 Crenated Cell Not Reportable 01/28/19 04:31 Elliptocytes Few 01/28/19 04:31 Acanthocytes (Spur) Not Reportable 01/28/19 04:31 Rouleaux Not Reportable 01/28/19 04:31 Hemoglobin C Crystals Not Reportable 01/28/19 04:31 Schistocytes Not Reportable 01/28/19 04:31 Malaria parasites Not Reportable 01/28/19 04:31 [place] Bodies Not Reportable 01/28/19 04:31 Hem Pathologist Commnt No 01/28/19 04:31 PT 27.0 Sec. (12.2-14.9) H 01/25/19 23:32 INR 2.31 (0.87-1.13) H 01/25/19 23:32 APTT 31.5 Sec. (24.2-36.6) 01/22/19 02:38 D-Dimer 259.37 ng/mlDDU (0-234) H 01/24/19 18:20 Sodium 139 mmol/L (137-145) 01/29/19 05:48 Potassium 4.1 mmol/L (3.6-5.0) 01/29/19 05:48 Chloride 98.2 mmol/L (98-107) 01/29/19 05:48 Carbon Dioxide 26 mmol/L (22-30) 01/29/19 05:48 Anion Gap 19 mmol/L 01/29/19 05:48 BUN 38 mg/dL (9-20) H 01/29/19 05:48 Creatinine 1.1 mg/dL (0.8-1.5) 01/29/19 05:48 Estimated GFR > 60 ml/min 01/29/19 05:48 BUN/Creatinine Ratio 35 % 01/29/19 05:48 Glucose 147 mg/dL (75-100) H 01/29/19 05:48 POC Glucose 107 (70-105) H 01/24/19 18:06 Calcium 8.4 mg/dL (8.4-10.2) 01/29/19 05:48 Magnesium 2.10 mg/dL (1.7-2.3) 01/23/19 14:49 Total Bilirubin 1.40 mg/dL (0.1-1.2) H 01/22/19 02:38 AST 13 units/L (5-40) 01/22/19 02:38 ALT 8 units/L (7-56) 01/22/19 02:38 Alkaline Phosphatase 58 units/L (35-129) 01/22/19 02:38 Total Creatine Kinase 13 units/L (55-170) L 01/24/19 18:20 CK-MB (CK-2) < 1.0 ng/mL (0.0-4.0) 01/24/19 18:20 CK-MB (CK-2) Rel Index 7.6 (0-4) H 01/24/19 18:20 Troponin T < 0.010 ng/mL (0.00-0.029) 01/24/19 18:20 NT-Pro-B Natriuret Pep 98698 pg/mL (0-900) H 01/24/19 18:20 Total Protein 6.4 g/dL (6.3-8.2) 01/22/19 02:38 Albumin 2.9 g/dL (3.9-5) L 01/22/19 02:38 Albumin/Globulin Ratio 0.8 % 01/22/19 02:38 Lipase 8 units/L (13-60) L 01/22/19 02:38 Active Medications - Current Medications Current Medications: Generic Name Dose Route Start Last Admin Trade Name Freq PRN Reason Stop Dose Admin Acetaminophen 650 mg 01/22/19 05:32 Tylenol PO Q4H PRN Pain MILD(1-3)/Fever >100.5/KNIGHT Albuterol 5 mg 01/22/19 19:02 01/22/19 21:37 Proventil IH 2.5 mg Q6HRT PRN Administration Shortness Of Breath Amiodarone HCl 200 mg 01/25/19 10:00 01/31/19 10:14 Cordarone PO 200 mg BID ROBERT Administration Arformoterol Tartrate 15 mcg 01/25/19 20:00 01/31/19 08:40 Brovana Nebu IH 15 mcg Q12HRT ROBERT Administration Budesonide 0.5 mg 01/25/19 20:00 01/31/19 08:40 Pulmicort IH 0.5 mg Q12HRT ROBERT Administration Hydromorphone/Sodium Chloride 0 mg 01/29/19 09:30 01/29/19 10:56 Dilaudid Surgeon Partner 6mg/30ml IV 1 cart DIRECT ROBERT Administration Protocol Sodium Chloride 1,000 mls @ 75 mls/hr 01/22/19 06:00 01/25/19 15:14 Nacl 0.9% 1000 Ml IV 75 mls/hr DIRECT ROBERT Administration Metoclopramide HCl 10 mg 01/29/19 16:50 Reglan IV Q6H PRN Nausea And Vomiting Metoprolol Tartrate 25 mg 01/25/19 10:00 01/31/19 10:14 Lopressor PO 25 mg BID ROBERT Administration Naloxone HCl 0.1 mg 01/29/19 09:00 Narcan 0.4 Mg/1 Ml IV Q2MIN PRN Res Rate </= 8 or 02 SAT < 92% Ondansetron HCl 4 mg 01/25/19 23:49 01/31/19 04:58 Zofran IV 4 mg Q4H PRN Administration Nausea And Vomiting Oxycodone/Acetaminophen 1 tab 01/24/19 18:14 01/30/19 22:53 Percocet 5/325 PO 1 tab BID PRN Administration Pain, Moderate (4-6) Pantoprazole Sodium 40 mg 01/27/19 22:00 01/31/19 10:14 Protonix PO 40 mg BID ROBERT Administration Prochlorperazine Edisylate 5 mg 01/30/19 09:14 01/31/19 10:14 Compazine IV 5 mg Q6H PRN Administration Nausea And Vomiting Promethazine HCl 25 mg 01/29/19 16:50 Phenergan [place] Q6H PRN Nausea And Vomiting Sodium Chloride 10 ml 01/22/19 10:00 01/30/19 22:52 Sodium Chloride Flush Syringe 10 Ml IV 10 ml BID ROBERT Administration Sodium Chloride 10 ml 01/22/19 05:32 01/23/19 03:52 Sodium Chloride Flush Syringe 10 Ml IV 10 ml PRN PRN Administration LINE FLUSH Nutrition/Malnutrition Assess - Dietary Evaluation Nutrition/Malnutrition Findings: Nutrition Notes Start: 01/23/19 10:41 Freq: Status: Active Protocol: Document 01/31/19 12:12 SHERRIE (Rec: 01/31/19 12:15 NHALL [email or web address]- [email or web address]) Nutrition Notes Initial or Follow up Reassessment Other Pertinent Diagnosis Esophageal CA on radiation therapy Current Diet FL + Glucerna BID Labs/Tests No current available Pertinent Medications Reviewed Height 6 ft 4 in Weight 112 kg [place] Body Weight (kg) 91.81 BMI 30.0 Subjective/Other Information Pt sleeping soundly at time of visit (11:21). He is wearing CPAP. #2 Nutrition Diagnosis Malnutrition Diagnosis Progress(for reassessment Improved documentation) #1 Nutrition Diagnosis Inadequate oral intake Diagnosis Progress(for reassessment Improved documentation) Is patient on ventilator? No Is Patient Ambulatory and/or Out of Bed Yes REE-([facility]-ambulatory/OOB) [ [id number] [id number]] Kcal/Kg value to use for calculation 20 Approximate Energy Requirements Using 2240 kcal/Kg Calculation Used for Recommendations Kcal/kg Additional Notes Pro needs 1-1.2g/kg adjBW: 102 -122g/day Fluid needs 1ml/kcal Nutrition Intervention Change Diet Order: Continue current diet Add Supplement/Snack (indicate name/kcal Glucerna TID /protein ) Provides kCal: 660 Provides Protein (gm) 30 Goal #1 Meet at least 75% of kcal and pro needs via PO and ONS intakes Follow-Up By: 02/04/19 Additional Comments F/U: intakes
[2019-01-31] MEDS: PERCOCET 5/325 PO PRN (15:04)
[2019-01-31] MEDS: ELIQUIS PO SCH (21:18)
[2019-01-31] MEDS: NACL 0.9% 1000 ML 1,000 ML IV SCH (22:58)
[2019-02-01] MEDS: BROVANA NEBU IH SCH (08:11)
[2019-02-01] MEDS: PULMICORT IH SCH (08:11)
--- NOTE | 2019-02-01 09:10 | Discharge Summary ---
Providers - Providers Date of Admission: 01/22/19 05:32 Attending physician: LIT JAQUEZ MD 01/22/19 10:36 Consult to Physician [CONS] Routine Comment: Consulting Provider: BUD SIMENTAL Physician Instructions: Reason For Exam: esophageal ca 01/25/19 23:45 Consult to Physician [CONS] Urgent Comment: Consulting Provider: CHARLIE MCCORMACK Physician Instructions: Reason For Exam: ugib/esophageal cancer 01/27/19 07:22 Consult to Physician [CONS] Routine Comment: Consulting Provider: CHARLIE SMITH Physician Instructions: Reason For Exam: recurrent PE, IVC filter--in setting of GI bleed 01/27/19 13:44 Consult to Physician [CONS] Routine Comment: I d/w dr del castillo Consulting Provider: GIORGI DEL CASTILLO Physician Instructions: Reason For Exam: esophageal ca 02/01/19 08:11 Physical Therapy Evaluation and Treat [CONS] Routine Comment: Reason For Exam: muscle strength Primary care physician: STONE MOSES Hospitalization Reason for admission: upper GI bleed, Recent PE Condition: Fair Procedures: IVC filter placement Hospital course: Patient is a 48-year-old male with PMHx of esophageal CA diagnosed in September 2018, currently receiving chemotherapy which was started a month ago, last was 2 weeks ago, recurrent PE on Xarelto, CHF, COPD, GERD, gout, anemia, DM type II, BRIT[place] on CPAP who presents to the ER with complaining of chest pain started last night around 11:00. Patient states that the pain is located in his chest, patient states the pain is worse with deep breath and associated with this breathing. Patient states that he was at [facility] 2 weeks ago and was diagnosed with PE, he was already on Xarelto for a prior PE. Patient reports a productive cough with yellowish sputum production which is chronic due to esophageal CA. Patient reports that the chest pain is similar to the chest pain he had with his previous PE. Patient c/o frequent cough, severe chest pain, he denies fever, denies chills, denies headache, denies dizziness, denies nausea, denies vomiting. Patient was evaluated in the ER and admitted for acute pain management. Patient was admitted to the floor and was managed for GI bleed, GI consult appreciated. Patient has esophageal cancer and hematology oncologist input appreciated. Patient had recent PE and was on Lovenox. Given his recurrent GI bleed were consulted vascular surgery and post IVC filter. He discontinued Lovenox and we put him on low-dose of eliquis 2.5 mg daily. Patient had recurrent nausea, blood mixed vomiting, chest pain and currently resolved. Vision was evaluated by cardiology too. Patient is scheduled to see hematology oncology on Sunday and will continue his radiation therapy. Patient normally followed at [facility] and has been admitted many times to this hospital many times. Patient was hemodynamically stable at the time of discharge, no nausea, vomiting or chest pain. Appropriate medication scripts were Given at the Time of Discharge. Disposition: [id number] TO HOME OR SELFCARE Time spent for discharge: 32 minutes - Discharge Diagnoses (1) Upper gastrointestinal bleeding Status: Acute (2) Pulmonary embolism Status: Acute (3) Esophageal cancer Status: Acute (4) Recurrent chest pain Status: Acute Core Measure Documentation - Palliative Care Palliative Care/ Comfort Measures: Not Applicable - Core Measures Any of the following diagnoses?: none, history only (PE) Exam - Physical Exam Narrative exam: Not in cardiopulmonary distress. The patient appeared well nourished and normally developed. Vital signs as documented. Head exam is unremarkable. No scleral icterus . Neck is without jugular venous distension, thyromegaly, or carotid bruits. Lungs are clear to auscultation. Cardiac exam reveals regular rate and Rhythm. First and second heart sounds normal. No murmurs, rubs or gallops. Abdominal exam reveals normal bowel sounds, no masses, no organomegaly and no aortic enlargement. Extremities are nonedematous and both femoral and pedal pulses are normal. [employer]: Alert and oriented 3. No focal weakness. - Constitutional Vitals: Temp Pulse Resp BP Pulse Ox 97.4 F L 80 20 125/95 100 02/01/19 08:00 02/01/19 08:36 02/01/19 08:36 02/01/19 08:10 02/01/19 08:40 Plan Activity: no restrictions Weight Bearing Status: Full Weight Bearing Diet: low cholesterol, diabetic Follow up with: DANIELLE MONTERROSO MD [Staff Physician] - 3-5 Days BUD SIMENTAL MD [Staff Physician] - 3 Days Prescriptions: Apixaban [Eliquis] 2.5 mg PO Q12HR #60 tablet
[2019-02-01] MEDS: CORDARONE PO SCH (09:41)
[2019-02-01] MEDS: LOPRESSOR PO SCH (09:41)
[2019-02-01] MEDS: PROTONIX PO SCH (09:41)
[2019-02-01] MEDS: SODIUM CHLORIDE FLUSH SYRINGE 10 ML IV SCH (09:42)
[2019-02-01] MEDS: ELIQUIS PO SCH (09:42)
[2019-02-01 10:55] VITALS: BP 125/95
[2019-02-01] MEDS: PERCOCET 5/325 PO PRN (12:58)
--- NOTE | 2019-02-01 16:27 | Hem/Onc Progress Note ---
Assessment and Plan - Patient Problems (1) Esophageal cancer Current Visit: No Status: Acute (2) Pulmonary embolism Current Visit: Yes Status: Acute (3) Anemia Current Visit: Yes Status: Acute Subjective Date of service: 02/01/19 Objective - Constitutional Vitals: Last Vital Signs Temp 97.4 F L 02/01/19 08:00 Pulse 73 02/01/19 13:40 Resp 15 02/01/19 13:40 BP 125/95 02/01/19 13:40 Pulse Ox 86 02/01/19 13:30 Medications & Allergies - Medications Allergies/Adverse Reactions: Allergies cephalexin monohydrate [From Keflex] Adverse Reaction (Verified 12/23/18 14:22) Shakes lidocaine Adverse Reaction (Verified 12/23/18 14:22) "Skin Yellowing" mushrooms Allergy (Uncoded 12/23/18 14:22) Anaphylaxis Home Medications: Home Medications Medication Instructions Recorded Confirmed Last Taken Type Magnesium Oxide 400 mg PO DAILY 08/31/16 01/23/19 12/26/18 History Insulin Glargine,Hum.rec.anlog 20 unit SQ HS 09/29/18 01/23/19 12/26/18 History [Lantus] Allopurinol [Zyloprim] 100 mg PO BID tablet 11/20/18 01/23/19 12/26/18 Rx Ferrous Sulfate [Feosol 325 MG tab] 325 mg PO BID tablet 11/20/18 01/23/19 12/26/18 Rx Lisinopril [Zestril TAB] 2.5 mg PO BID tablet 11/20/18 01/23/19 12/26/18 Rx Digoxin [Lanoxin] 0.125 mg PO DAILY 12/10/18 01/23/19 12/26/18 History Gabapentin [Neurontin] 300 mg PO DAILY 12/10/18 01/23/19 12/26/18 History Omeprazole 20 mg PO DAILY 12/10/18 01/23/19 12/26/18 History glipiZIDE [Glipizide] 10 mg PO DAILY 12/10/18 01/23/19 12/26/18 History Aspirin [Aspirin BABY CHEW TAB] 81 mg PO QDAY 12/20/18 01/23/19 12/26/18 History Potassium Chloride [Klor-Con M20] 20 meq PO BID 12/20/18 01/23/19 12/26/18 History Tizanidine HCl [Zanaflex] 4 mg PO BID 12/23/18 01/23/19 12/26/18 History Oxycodone HCl/Acetaminophen 1 each PO Q6HR PRN #20 tablet 12/24/18 01/23/19 12/26/18 Rx [Percocet 7.5/325 mg] Hydromorphone HCl [Dilaudid] 4 mg PO Q12HR PRN #20 tablet 01/06/19 01/23/19 Unknown Rx Carvedilol [Coreg] 12.5 mg PO BID #60 tablet 01/09/19 01/23/19 Unknown Rx Demadex 100 mg PO QDAY 01/09/19 01/23/19 Unknown History Apixaban [Eliquis] 2.5 mg PO Q12HR #60 tablet 02/01/19 Unknown Rx Active Medications: Generic Name Dose Route Start Last Admin Trade Name Freq PRN Reason Stop Dose Admin Acetaminophen 650 mg 01/22/19 05:32 Tylenol PO Q4H PRN Pain MILD(1-3)/Fever >100.5/KNIGHT Albuterol 5 mg 01/22/19 19:02 01/22/19 21:37 Proventil IH 2.5 mg Q6HRT PRN Administration Shortness Of Breath Amiodarone HCl 200 mg 01/25/19 10:00 02/01/19 09:41 Cordarone PO 200 mg BID ROBERT Administration Apixaban 2.5 mg 01/31/19 22:00 02/01/19 09:42 Eliquis PO 2.5 mg Q12HR ROBERT Administration Protocol Arformoterol Tartrate 15 mcg 01/25/19 20:00 02/01/19 08:11 Brovana Nebu IH 15 mcg Q12HRT ROBERT Administration Budesonide 0.5 mg 01/25/19 20:00 02/01/19 08:11 Pulmicort IH 0.5 mg Q12HRT ROBERT Administration Sodium Chloride 1,000 mls @ 75 mls/hr 01/22/19 06:00 01/31/19 22:58 Nacl 0.9% 1000 Ml IV 75 mls/hr DIRECT ROBERT Administration Metoclopramide HCl 10 mg 01/29/19 16:50 Reglan IV Q6H PRN Nausea And Vomiting Metoprolol Tartrate 25 mg 01/25/19 10:00 02/01/19 09:41 Lopressor PO 25 mg BID ROBERT Administration Naloxone HCl 0.1 mg 01/29/19 09:00 Narcan 0.4 Mg/1 Ml IV Q2MIN PRN Res Rate </= 8 or 02 SAT < 92% Ondansetron HCl 4 mg 01/25/19 23:49 01/31/19 15:04 Zofran IV 4 mg Q4H PRN Administration Nausea And Vomiting Oxycodone/Acetaminophen 1 tab 01/24/19 18:14 02/01/19 12:58 Percocet 5/325 PO 1 tab BID PRN Administration Pain, Moderate (4-6) Pantoprazole Sodium 40 mg 01/27/19 22:00 02/01/19 09:41 Protonix PO 40 mg BID ROBERT Administration Prochlorperazine Edisylate 5 mg 01/30/19 09:14 01/31/19 10:14 Compazine IV 5 mg Q6H PRN Administration Nausea And Vomiting Promethazine HCl 25 mg 01/29/19 16:50 Phenergan MA Q6H PRN Nausea And Vomiting Sodium Chloride 10 ml 01/22/19 10:00 02/01/19 09:42 Sodium Chloride Flush Syringe 10 Ml IV 10 ml BID ROBERT Administration Sodium Chloride 10 ml 01/22/19 05:32 01/23/19 03:52 Sodium Chloride Flush Syringe 10 Ml IV 10 ml PRN PRN Administration LINE FLUSH
== END 2019-02-01 16:31 | disposition home or self-care (01) | DRG 166 ==
LOC: ED 00:53 → SUATTDRO 00:53 → 4A 05:32 → IMCU 01-26 18:52
PROVIDERS: ADMIT Internal Medicine Geriatric Medicine; ATTEND Internal Medicine
PROC: 06H03DZ Insertion of Intraluminal Device into Inferior Vena Cava, Percutaneous Approach (ICD-10-PCS; principal; 2019-01-27)
PROC: B5191ZZ Fluoroscopy of Inferior Vena Cava using Low Osmolar Contrast (ICD-10-PCS; 2019-01-27)
PROC: B51B1ZZ Fluoroscopy of Right Lower Extremity Veins using Low Osmolar Contrast (ICD-10-PCS; 2019-01-27)
DX: I26.99 Other pulmonary embolism without acute cor pulmonale (principal); J96.01 Acute respiratory failure with hypoxia; E87.6 Hypokalemia; I42.0 Dilated cardiomyopathy; E11.9 Type 2 diabetes mellitus without complications; K21.9 Gastro-esophageal reflux disease without esophagitis; C15.9 Malignant neoplasm of esophagus, unspecified; I27.20 Pulmonary hypertension, unspecified; I11.0 Hypertensive heart disease with heart failure; J44.9 Chronic obstructive pulmonary disease, unspecified; M10.9 Gout, unspecified; D63.8 Anemia in other chronic diseases classified elsewhere; I47.2 Ventricular tachycardia; I48.0 Paroxysmal atrial fibrillation; I50.22 Chronic systolic (congestive) heart failure; G47.33 Obstructive sleep apnea (adult) (pediatric); E86.0 Dehydration; Z88.4 Allergy status to anesthetic agent; Z88.1 Allergy status to other antibiotic agents; Z91.018 Allergy to other foods; Z79.4 Long term (current) use of insulin; Z79.899 Other long term (current) drug therapy; Z79.82 Long term (current) use of aspirin; Z79.01 Long term (current) use of anticoagulants; Z86.711 Personal history of pulmonary embolism; Z95.810 Presence of automatic (implantable) cardiac defibrillator; Z87.891 Personal history of nicotine dependence
CPT/HCPCS: 36415; 37191; 71045; 71275; 74177; 80048; 80053; 82550; 82553; 82962; 83690; 83735; 83880; 84484; 85007; 85014; 85018; 85025; 85379; 85610; 85730; 93005; 93010; 94640; 94760; 96372; 96374; 96375; G0378; C1769; C1880; C9113; J0282; J0690; J0780; J1170; J1200; J1644; J1650; J1956; J2250; J2270; J2405; J2916; J3010; J7030; J7050; Q0162; Q9967